=== PATIENT | female | born 1960 | race Caucasian/White ===

== ENCOUNTER 2016-09-25 05:38 | Outpatient (CLI) | payer OTHER, MEDICARE ==
[~2016-09-25] VITALS: Ht 167.6 cm; Wt 93.4 kg
[~2016-09-25 05:38] MED LIST: ALLERGY INJECTION SQ; ALPR0.2550 PO; AMIT25TA9 PO; AMLO10TA4 PO; ASP81TEC PO; BIOT25006 PO; CETI10CA PO; CHOL10008 PO; CHOL4PAC2 PO; CYAN100053 IJ; CYCL10TA9 PO; DCS100C PO; DESV100T PO; DESV50TA PO; DIAZ-345 PO; DIPH1TAB25 PO; Docusate Sodium PO; ESTR10TA VG; ESTROGEN SHOT IM; EZET10TA23 PO; FENO130C5 PO; FENO145T2 PO; FENO30CA PO; FLC100T1 PO; FLC1T PO; HCT25T PO; HYDR12.56 PO; HYDR1TAB PO; HYOS0.378 PO; Hydromorphone Hcl PO; IBP600T1 PO; METO50TA7 PO; NAPR-243 PO; NF-LOVAZAC PO; NFAMINITAB PO; ONDA8TAB6 PO; OXYB30GE TD; PANT40TA PO; POTASSIUM CL PO; RIZA10TA23 PO; ROSU5TAB PO; SUCR1TAB23 PO; TOPI200T25 PO; TOPI50TA2 PO; TPR100T PO; TPR25T PO; TRIM100T7 PO; [UNRECOGNIZED DRUG - CODE] PO
--- OUTSIDE RECORDS SUMMARY | 2016-09-25 05:41 | XMS REPORT | Continuity of Care Document ---
Author Author [facility] Organization [facility] Address Unknown Phone Unavailable Care Team Providers Care Defence [employer] Member Other Ranks Name Role Phone PCP Unavailable Source Comments Some departments are not documenting in the electronic medical record. If you do not see the information that you expected, contact Release of Information in the Health Information Management department at [phone] for further assistance in locating additional records.[facility] Active Allergies and Adverse Reactions Allergen Noted Date Severity Reactions Comments Cymbalta 09/17/2012 ANAPHYLAXIS Gluten 09/17/2012 UNKNOWN Levaquin In D5w 09/17/2012 ANAPHYLAXIS Macrobid 09/17/2012 ANAPHYLAXIS Metanx 09/17/2012 NAUSEA AND VOMITING Neurontin 09/17/2012 AGITATION Nuts 09/17/2012 ANAPHYLAXIS Percocet 09/17/2012 ITCHING Prednisone 09/17/2012 AGITATION, EDEMA Savella 09/17/2012 HEADACHE Ultram 09/17/2012 HIVES, ITCHING Current Medications Prescription Sig. Disp. Refills Start End Date Status Date ERGOCALCIFEROL (VITAMIN Take 2,000 Units by mouth Active D2) (VITAMIN D PO) daily. TOPIRAMATE (TOPAMAX PO) Take 75 mg by mouth twice Active daily. metoprolol XL (TOPROL XL) Take 50 mg by mouth Active 50 mg tablet daily. aspirin 81 mg chewable Take 81 mg by mouth Active tablet daily. hydrochlorothiazide Take 12.5 mg by mouth Active (HYDRODIURIL) 12.5 mg Tab daily. tablet folic acid (FOLVITE) 1 mg Take 1 mg by mouth daily. Active tablet [place]-3 Acid Ethyl Esters Take 1 g by mouth twice Active (LOVAZA) 1 gram cap daily with meals. CYCLOBENZAPRINE HCL Take 10 mg by mouth. Active (FLEXERIL PO) fenofibrate Take 145 mg by mouth Active nanocrystallized (TRICOR) daily. [address] Take 40 mg by mouth Active (PROTONIX) 40 mg tablet daily. desvenlafaxine(+) Take 50 mg by mouth Active (PRISTIQ) 50 mg tablet daily. potassium chloride SR Take 20 mEq by mouth Active (K-DUR) 20 mEq tablet daily. amitriptyline (ELAVIL) 25 Take 25 mg by mouth at Active mg tablet bedtime daily. cetirizine (ZYRTEC) 10 mg Take 10 mg by mouth as Active tablet Needed. cholestyramine/aspartame Take 1 Packet by mouth as Active 4 gram packet Needed. DIPHENOXYLATE Take by mouth as Needed. Active HCL/ATROPINE (LOMOTIL PO) HYOSCYAMINE SULFATE Take by mouth. Active (HYOMAX PO) diazepam (VALIUM) 5 mg Take 5 mg by mouth every Active tablet 6 hours as needed. rizatriptan (MAXALT) 10 Take 10 mg by mouth once Active mg tablet as needed. May repeat in 2 hours in needed naproxen (NAPROSYN) 500 Take 500 mg by mouth Active mg tablet twice daily with meals. HYDROCODONE BIT/HOMATROP Take by mouth as Needed. Active ME-BR (HYDROCODONE COMPOUND PO) Active Problems Problem Noted Date Neck pain 09/17/2012 Fibromyalgia 09/17/2012 Social History Tobacco Use Types Packs/Day Years Used Date Former Smoker Cigarettes Quit: 09/17/1975 Smokeless Tobacco: Never Used Alcohol Use Drinks/Week oz/Week Comments No Last Filed Vital Signs Vital Sign Reading Time Taken Blood Pressure 127/85 09/17/2012 11:32 AM CORE INSPECTOR Pulse 76 09/17/2012 11:32 AM CORE INSPECTOR Temperature - - Respiratory Rate - - Height 1.676 m (5' 6") 09/17/2012 11:32 AM CORE INSPECTOR Weight 95.528 kg (210 lb 9.6 oz) 09/17/2012 11:32 AM CORE INSPECTOR Body Mass Index 34.01 09/17/2012 11:32 AM CORE INSPECTOR Oxygen Saturation - - Plan of Care Health Maintenance Due Date Last Done Comments Physical (Comprehensive) 01/29/1967 Exam Pertussis Vaccine 01/29/1971 Tetanus Vaccine 01/29/1977 Cervical Cancer Screening 01/29/1981 Breast Cancer Screening 2000 Colorectal Cancer 01/29/2010 Screening Influenza Vaccine 05/10/2016 Results from Last 3 Months Not on file
[2016-09-25] MEDS ORDERED: ALIR150P SQ (13:51)
[2016-09-25] MEDS ORDERED: FENO130C5 PO (14:16)
[2016-09-25] MEDS ORDERED: CHOL200014 PO (14:16)
[2016-09-25] MEDS ORDERED: DESV50TA PO (14:16)
[2016-09-25] MEDS ORDERED: OMEG-8 PO (14:16)
[2016-09-25] MEDS ORDERED: METO50TA2 PO (14:16)
== END 2016-09-25 14:19 ==
LOC: PREOP 05:38
PROVIDERS: ATTEND Surgery
DX: Z01.818 Encounter for other preprocedural examination (principal); D17.9 Benign lipomatous neoplasm, unspecified

== ENCOUNTER 2016-09-28 10:01 | Day surgery (SDC) | payer OTHER, MEDICARE ==
[~2016-09-28] VITALS: Ht 167.6 cm; Wt 93.4 kg
[~2016-09-28 10:01] MED LIST changes: +ALIR150P SQ; +CHOL200014 PO; +METO50TA2 PO; +OMEG-8 PO
--- OUTSIDE RECORDS SUMMARY | 2016-09-28 10:04 | XMS REPORT | Continuity of Care Document ---
Author Author [facility] Organization [facility] Address Unknown Phone Unavailable Care Team Providers Care Fly Worker Name Role Phone PCP Unavailable Source Comments Some departments are not documenting in the electronic medical record. If you do not see the information that you expected, contact Release of Information in the Health Information Management department at [phone] for further assistance in locating additional records.[facility] Active Allergies and Adverse Reactions Allergen [...] 1 mg by mouth daily. Active tablet [place]-3 Acid Ethyl Esters Take 1 g by [...] Taken Blood Pressure 127/85 09/17/2012 11:32 AM LINE PULLER Pulse 76 09/17/2012 11:32 AM LINE PULLER Temperature - - Respiratory Rate - - Height 1.676 m (5' 6") 09/17/2012 11:32 AM LINE PULLER Weight 95.528 kg (210 lb 9.6 oz) 09/17/2012 11:32 AM LINE PULLER Body Mass Index 34.01 09/17/2012 11:32 AM LINE PULLER Oxygen Saturation - - Plan of Care Health Maintenance Due Date Last Done Comments Physical (Comprehensive) 01/29/1967 Exam Pertussis Vaccine 01/29/1971 Tetanus Vaccine 01/29/1977 Cervical Cancer Screening 01/29/1981 Breast Cancer Screening 2000 Colorectal Cancer 01/29/2010 Screening Influenza Vaccine 05/10/2016 Results from Last 3 Months Not on file
--- OUTSIDE RECORDS SUMMARY | 2016-09-28 10:04 | XMS REPORT | Continuity of Care Document ---
Author Author [facility] Organization [facility] Address Unknown Phone Unavailable Care Team Providers Care Configuration Manager Name Role Phone PCP Unavailable Source Comments Some departments are not documenting in the electronic medical record. If you do not see the information that you expected, contact Release of Information in the Health Information Management department at [phone] for further assistance in locating additional records.[facility] Active Allergies and Adverse Reactions Allergen Noted [...] 1 mg by mouth daily. Active tablet [place]-3 Acid Ethyl Esters Take 1 g by [...] Taken Blood Pressure 127/85 09/17/2012 11:32 AM BIOINFORMATICS TEAM MEMBER Pulse 76 09/17/2012 11:32 AM BIOINFORMATICS TEAM MEMBER Temperature - - Respiratory Rate - - Height 1.676 m (5' 6") 09/17/2012 11:32 AM BIOINFORMATICS TEAM MEMBER Weight 95.528 kg (210 lb 9.6 oz) 09/17/2012 11:32 AM BIOINFORMATICS TEAM MEMBER Body Mass Index 34.01 09/17/2012 11:32 AM BIOINFORMATICS TEAM MEMBER Oxygen Saturation - - Plan of Care Health Maintenance Due Date Last Done Comments Physical (Comprehensive) 01/29/1967 Exam Pertussis Vaccine 01/29/1971 Tetanus Vaccine 01/29/1977 Cervical Cancer Screening 01/29/1981 Breast Cancer Screening 2000 Colorectal Cancer 01/29/2010 Screening Influenza Vaccine 05/10/2016 Results from Last 3 Months Not on file
[2016-09-28] MEDS ORDERED: LACTATED RINGERS 1,000 ML IV PRN (10:23)
[2016-09-28] MEDS ORDERED: LIDOCAINE JELLY 2% (XYLOCAINE) 5 ML TUBE ONE (10:30)
[2016-09-28] MEDS ORDERED: proPOfol 200 MG/20 ML (DIPRIVAN) VIAL IV ONE (10:30)
[2016-09-28] MEDS ORDERED: FAMOTIDINE 20MG/2ML IV (PEPCID) IV ONE (10:30)
[2016-09-28] MEDS ORDERED: LIDOCAINE PF 2% 10 ML (XYLOCAINE) AMP ONE (10:30)
[2016-09-28] MEDS ORDERED: fentaNYL INJECTION 100 MCG/2 ML AMP ONE (10:30)
[2016-09-28] MEDS ORDERED: ONDANSETRON 4 MG/2 ML (SDV) Z0FRAN IV ONE (10:30)
[2016-09-28] MEDS ORDERED: SCOPOLAMINE 1.5 MG (TRANSDERM-SCOP) PATCH TOP ONE (10:30)
[2016-09-28] MEDS ORDERED: MIDAZOLAM 2 MG/2 ML (VERSED) VIAL IV ONE (10:30)
[2016-09-28] MEDS ORDERED: ROCURONIUM 50 MG/5 ML (ZEMURON) VIAL IV ONE (10:30)
[2016-09-28] MEDS ORDERED: ceFAZolin 2 GM IV (SDC ONLY) 50 ML ONE (10:34)
[2016-09-28 10:35] VITALS: BP 131/63
[2016-09-28] MEDS ORDERED: BUP/EPI 0.25% 1:200,000 (MARCAINE) 30 ML VIAL ONE (10:36)
--- NOTE | 2016-09-28 10:59 | Progress Note-Pre Operative ---
Pre-Operative Progress Note H&P Reviewed The H&P was reviewed, patient examined and no changes noted. Date H&P Reviewed: Sep 28, 2016 Time H&P Reviewed: 10:59 Pre-Operative Diagnosis: multiple lipomata JESSY WHITAKER MD Sep 28, 2016 10:59 am
[2016-09-28] MEDS ORDERED: ceFAZolin 2 GM IV (SDC ONLY) 50 ML IV ONE (11:30)
[2016-09-28] MEDS ORDERED: CATHETER FLUSH 10 ML SYR IV PRN (11:30)
[2016-09-28] MEDS ORDERED: SEVOFLURANE (ULTANE) 15 ML INHAL SOLN ONE (12:04)
--- NOTE | 2016-09-28 12:31 | Progress Note-Post Operative ---
Post-Operative Progess Note Pre-Operative Diagnosis multiple lipomata Post-Operative Diagnosis same Post-Op Procedure Note Date of Procedure: Sep 28, 2016 Name of Procedure: excision Anesthesia Type Gen. Specimen(s) collected lipoma JESSY WHITAKER MD Sep 28, 2016 12:31 pm
[2016-09-28] MEDS ORDERED: HYDR-3812 PO (12:32)
--- NOTE | 2016-09-28 12:35 | Discharge Inst-Simple/Standard ---
Discharge Inst-Standard Discharge Medications New, Converted or Re-Newed RX: RX on Chart Patient Instructions/Follow Up Plan of Care/Instructions/FU: dressings off in 48 hours. Follow-up when necessary Activity as Tolerated: Yes Discharge Diet: No Restrictions JESSY WHITAKER MD Sep 28, 2016 12:35 pm
[2016-09-28] MEDS: morphine INJ 10 MG/ML 1ML (SYR OR VIAL) IVP PRN ×2 (12:43→12:53)
[2016-09-28] MEDS ORDERED: ONDANSETRON 4 MG/2 ML (SDV) Z0FRAN IVP PRN (12:45)
[2016-09-28] MEDS ORDERED: MEPERIDINE (DEMEROL) INJ 50 MG/ML IVP PRN (12:45)
--- NOTE | 2016-09-28 12:46 | Anesthesia-General Post-Op ---
General Patient Condition Mental Status/LOC: Same as Preop Cardiovascular: Satisfactory Nausea/Vomiting: Absent Respiratory: Satisfactory Pain: Controlled Complications: Absent Post Op Complications Complications None Follow Up Care/Instructions Patient Instructions None needed. Anesthesia/Patient Condition Patient Condition Patient is doing well, no complaints, stable vital signs, no apparent adverse anesthesia problems. No complications reported per nursing. D/C home per [facility] [place] Criteria: RACHELL Henry DO Sep 28, 2016 12:46
[2016-09-28 13:25] VITALS: BP 97/49
--- NOTE | 2016-09-28 13:38 | OPERATIVE REPORT ---
PROCEDURE PHYSICIAN: JESSY WHITAKER DATE OF PROCEDURE: 09/28/2016 PREOPERATIVE DIAGNOSIS: 1. 1 cm lipoma x 3 right lateral chest wall. 2. 2 cm lipoma right upper medial thigh. POSTOPERATIVE DIAGNOSIS: 1. 1 cm lipoma x 3 right lateral chest wall. 2. 2 cm lipoma right upper medial thigh. OPERATION: Excision of all 4. SURGEON: Lamonte. ANESTHESIA: General anesthesia. BLOOD LOSS: Minimal. FLUIDS: 600 mL of crystalloids. TYPE OF WOUND: Type I (clean wound). INDICATION FOR THE PROCEDURE: This lady has multiple painful lipomata. During the preoperative period, we identified a total of 3 of these over the right lateral chest wall and a 2 cm lipoma over the upper medial thigh on the right side. We offered to excise these under general anesthetic. Informed consent was obtained after reviewing the operative details and complications of hematoma, wound infection and recurrence. DESCRIPTION OF PROCEDURE: She was placed supine on the operative table and general anesthesia induced using a laryngeal mask airway. 2 grams of Ancef were administered intravenously as prophylaxis against wound infection. Sequential compression devices were placed around her legs, to minimize the risk of venous thrombosis. Right chest wall and the right thigh were prepared and draped in the usual sterile manner. By making a 2 cm incision over each of these, the lipomata were excised. Hemostasis was achieved using cautery and each of the four incisions was closed using 4-0 Vicryl, in a subcuticular fashion. She tolerated the procedure well, was extubated in the operating room and taken to the recovery room in a stable condition. [place], sponges, and instruments were correct at the end of the operation. Job ID: [id number] Dictated Date: 09/28/2016 12:18:11 [employer] Recruiter Date: 09/28/2016 13:33:42 / arthur ANDERSON
[2016-09-28] MEDS ORDERED: HYDROcodone/APAP 5 MG/325 MG (LORTAB) TAB PO ONE (13:45)
[2016-09-28 13:55] VITALS: BP 93/60
[2016-09-28 14:25] VITALS: BP 113/55
[2016-09-28 14:50] VITALS: BP 113/55
== END 2016-09-28 14:53 | disposition home or self-care (01) ==
LOC: SDC 10:01
PROVIDERS: ATTEND Surgery
DX: D17.23 Benign lipomatous neoplasm of skin and subcutaneous tissue of right leg (principal); D17.1 Benign lipomatous neoplasm of skin and subcutaneous tissue of trunk; Z79.899 Other long term (current) drug therapy
CPT/HCPCS: 82962; 87081

== ENCOUNTER → 2016-11-30 | Outpatient (CLI) | payer OTHER, MEDICARE ==
[~2016-11-30] MED LIST changes: +HYDR-3812 PO
--- NOTE | 2016-11-30 13:54 | Diagnostic Imaging Report ---
PROCEDURE: MRI right joint lower extremity without contrast. TECHNIQUE: Multiplanar, multisequence non contrast-enhanced MRI of the right lower extremity was accomplished. INDICATION: Right knee pain. FINDINGS: There is a small suprapatellar effusion. There is fluid signal anterior to the patellar tendon suggestive of mild superficial infrapatellar bursitis. The location of popliteal cyst demonstrates very minimal amount of fluid with no sizable cyst seen. The extensor mechanism is intact. The ACL and the PCL are both intact. The medial meniscus demonstrates a complex tear involving the posterior root new from 09/08/2013 exam. At that prior exam, this posterior root appeared intact. The tear extends into the posterior horn of the medial meniscus. There is abnormal signal within the substance of the body of the medial meniscus; however, this is not definitely extending to the meniscus surface. There is partial extrusion of the body of the meniscus. No tear is seen in the lateral meniscus. The lateral collateral ligament complex and the MCL appear intact. The muscle bulk and signal around the knee appear unremarkable. There is cartilage thinning of moderate degree seen in the medial facet of the patella and mild cartilage thinning with fissuring noted in the lateral facet of the patella. The lateral compartment cartilage is relatively spared. The medial compartment cartilage demonstrates approximately 50% thinning and fissuring. IMPRESSION: 1. Complex tear in the posterior root of the medial meniscus extending to the posterior horn. 2. Suggestion of mild superficial infrapatellar bursitis. 3. Mild osteoarthritis changes in the medial and patellofemoral compartments. Dictated by: Dictated on workstation # [id number]
== END ==
LOC: RAD 11:05
PROVIDERS: ATTEND Orthopaedic Surgery
DX: M71.21 Synovial cyst of popliteal space [Baker], right knee (principal)
CPT/HCPCS: 73721

== ENCOUNTER → 2017-02-27 | Outpatient (CLI) | payer OTHER, MEDICARE ==
--- NOTE | 2017-02-27 11:56 | Diagnostic Imaging Report ---
PROCEDURE: US Thyroid. TECHNIQUE: Multiple real-time grayscale images were obtained of the thyroid in various projections. INDICATION: Thyromegaly. FINDINGS: The right thyroid lobe is 4 x 1.9 x 1.7 CM. The left lobe is 4.1 x 0.9 x 1.7 CM. There is a 4 x 7.4 mm hyperechoic circumscribed nodule in the lower aspect of the left thyroid lobe with no internal vascularity demonstrated. No other nodule is seen. IMPRESSION: Likely benign hyperechoic 7 mm inferior left thyroid lobe nodule. A followup study in 6 months is suggested to reevaluate. Dictated by: Dictated on workstation # [id number]
== END ==
LOC: RAD 11:13
PROVIDERS: ATTEND Family Medicine
DX: E01.0 Iodine-deficiency related diffuse (endemic) goiter (principal)
CPT/HCPCS: 76536

== ENCOUNTER 2017-06-04 11:43 | Outpatient (CLI) | payer OTHER, MEDICARE | END 2017-06-04 12:05 | disposition home or self-care (01) | LOC: SLEEP 11:43 | PROVIDERS: ATTEND Family Medicine | DX: G47.10 Hypersomnia, unspecified (principal); G47.50 Parasomnia, unspecified; R06.83 Snoring; I10 Essential (primary) hypertension ==

== ENCOUNTER → 2017-06-07 | Outpatient (CLI) | payer OTHER, MEDICARE ==
--- NOTE | 2017-06-11 10:57 | Diagnostic Imaging Report ---
EXAMINATION: Bilateral screening mammogram 2D views with tomosynthesis. The current study was also evaluated with a Computer Aided Detection (CAD) system. INDICATION: Screening. PERSONAL HISTORY: No current complaints stated on the questionnaire. COMPARISON: 01/16/2016. FINDINGS: The breasts are composed of scattered fibroglandular densities. There is no mass, architectural distortion, or suspicious cluster of calcifications. Allowing for technique and positional differences, no suspicious change is seen. IMPRESSION: No significant change. ACR BI-RADS Category 2: Benign findings. Result letter will be mailed to the patient. Note: At least 10% of breast cancer is not imaged by mammography. Dictated by: Dictated on workstation # [id number]
== END ==
LOC: RAD 14:13
PROVIDERS: ATTEND Obstetrics & Gynecology
DX: Z12.31 Encounter for screening mammogram for malignant neoplasm of breast (principal)
CPT/HCPCS: 77067

== ENCOUNTER → 2017-08-28 | Outpatient (CLI) | payer OTHER, MEDICARE ==
[~2017-08-28] MED LIST changes: +METO50TA15 PO; -METO50TA2 PO
--- NOTE | 2017-08-28 17:52 | Diagnostic Imaging Report ---
PROCEDURE: US thyroid. TECHNIQUE: Multiple real-time grayscale images were obtained of the thyroid in various projections. INDICATION: Followup thyroid nodule. COMPARISON: 03/07/17. FINDINGS: The right thyroid lobe is 4.1 x 1.0 x 1.3 cm. The left lobe is 4.3 x 1.0 x 1.5 cm. There is a 0.5 x 0.4 cm hypoechoic nodule in the inferior aspect of the right lobe and 0.5 x 0.7 x 0.5 cm similar hyperechoic circumscribed nodule in the inferior aspect of the left lobe of the thyroid. When compared to 02/27/2017, the right thyroid nodule was not well demonstrated previously and the left thyroid nodule appears minimally more prominent. IMPRESSION: Subcentimeter hyperechoic circumscribed thyroid nodules up to 0.7 cm in the inferior aspect of the left lobe, are favored to be benign in etiology. Dictated by: Dictated on workstation # [id number]
== END ==
LOC: RAD 15:17
PROVIDERS: ATTEND Nurse Practitioner Family
DX: E04.2 Nontoxic multinodular goiter (principal)
CPT/HCPCS: 76536

== ENCOUNTER → 2018-02-18 | Outpatient (CLI) | payer OTHER, MEDICARE ==
[~2018-02-18] MED LIST changes: +ACHD5005 PO; -HYDR-3812 PO
--- NOTE | 2018-02-18 13:28 | Diagnostic Imaging Report ---
INDICATION: Multinodular goiter. TECHNIQUE: Grayscale sonographic images of the thyroid gland. CORRELATION STUDY: 08/28/2017. FINDINGS: RIGHT LOBE: 4.1 x 1.4 x 1.3 cm. In the inferior pole, there is a small rounded hyperechoic nodule 5 x 4 x 5 mm. Unchanged. LEFT LOBE: 4.2 x 1.0 x 1.5 cm. In the inferior pole, there is a small rounded hyperechoic nodule, 6 x 5 x 6 mm, generally stable as well. Isthmus appears unremarkable. IMPRESSION: Small subcentimeter hyperechoic solitary nodules in the inferior aspect of both lobes appearing generally stable. (Normal gland size: 4-5 x 2 x 2 cm) Dictated by: Dictated on workstation # [id number]
== END ==
LOC: RAD 08:42
PROVIDERS: ATTEND Nurse Practitioner Family
DX: E04.2 Nontoxic multinodular goiter (principal)
CPT/HCPCS: 76536

== ENCOUNTER → 2018-06-19 | Outpatient (CLI) | payer OTHER, MEDICARE ==
[~2018-06-19] MED LIST changes: -CHOL200014 PO; +CHOL200085 PO
--- NOTE | 2018-06-19 18:13 | Diagnostic Imaging Report ---
EXAMINATION: Digital mammogram bilateral screening with 3D tomosynthesis. INDICATION: Screening. COMPARISON: This study was compared to the prior exams of 06/07/2017, 01/16/2016, and 09/06/2014. At this time, there are no current complaints. The current study was also evaluated with a Computer Aided Detection (CAD) system. FINDINGS: There are scattered fibroglandular densities in both breasts which could obscure a lesion. On the MLO view of the left breast in the superior aspect of the breast, roughly 13 cm from the nipple, there is a small 3-4 mm neodensity. This finding cannot be identified with certainty on the craniocaudad view. I would recommend that a compression view of this area be obtained in the MLO projection as well as an XCC view for further study. Ultrasound should also be performed. The overall appearance of the breasts has not changed significantly otherwise. There is no primary or secondary sign of malignancy noted. IMPRESSION: Additional mammographic views and ultrasound of the left breast would be recommended for further study. ACR BI-RADS Category 0: Incomplete. (Needs additional imaging evaluation). Result letter will be mailed to the patient. Note: At least 10% of breast cancer is not imaged by mammography. Dictated by: Dictated on workstation # [id number]
== END ==
LOC: RAD 13:39
PROVIDERS: ATTEND Obstetrics & Gynecology
DX: Z12.31 Encounter for screening mammogram for malignant neoplasm of breast (principal)
CPT/HCPCS: 77067

== ENCOUNTER 2018-06-21 17:29 | Emergency (ER) | payer OTHER, MEDICARE ==
[~2018-06-21] VITALS: Ht 167.6 cm; Wt 88.5 kg
[2018-06-21] MEDS ORDERED: ACETAMINOPHEN 325 MG TABLET PO STA (19:59)
--- NOTE | 2018-06-21 20:26 | ED Upper Extremity ---
General Chief Complaint: Laceration Stated Complaint: CUT FINGER Nursing Triage Note: pt presents to ed with lac to r thumb after slicing something for dinner. Nursing Sepsis Screen: No Definite Risk History of Present Illness Date Seen by Provider: Jun 21, 2018 Time Seen by Provider: 19:20 Initial Comments 58-year-old female was slicing katt when she sustained an abrasion to the tip of her right thumb. She denies any other injuries. The wound has been cleaned with sterile saline and Hibiclens. Last tetanus immunization was 3 years ago. Onset: just prior to arrival Pain/Injury Location: right thumb Method of Injury: incised Allergies and Home Medications Allergies Coded Allergies: levofloxacin (Verified Allergy, Severe, HIVES, SHORTNESS OF BREATH, HAND SWELLS, 02/26/14) nitrofurantoin (Verified Allergy, Severe, HIVES, SHORTNESS OF BREATH, ITCHING, 06/21/18) duloxetine (Verified Allergy, Intermediate, TROUBLE BREATHING, HEART RACED , PANIC ATTACH, 06/21/18) acetaminophen (Verified Allergy, Mild, ITCHING, INSOMNIA, 06/21/18) gluten (Unverified Allergy, Mild, 06/21/18) levomefolate calcium (Verified Allergy, Mild, NAUSEA, WEIGHT GAIN, ) mecobalamin (Verified Allergy, Mild, NAUSEA, WEIGHT GAIN, 06/21/18) oxycodone (Verified Allergy, Mild, ITCHING, INSOMNIA, 06/21/18) prednisone (Verified Allergy, Mild, 06/21/18) ITCING pyridoxal phosphate (Verified Allergy, Mild, NAUSEA, WEIGHT GAIN, 06/21/18 ) tramadol (Verified Allergy, Mild, HIVES, ITCHING, 06/21/18) gabapentin (Verified Adverse Reaction, Intermediate, SICK FEELING, HEART RACED, 06/21/18) milnacipran (Verified Adverse Reaction, Intermediate, NAUSEA, MIGRAINES, 06/21/18) Uncoded Allergies: NUTS (Allergy, Mild, 02/26/14) dissolvable stitches (Allergy, Unknown, 09/25/16) Home Medications Alirocumab 150 Mg/1 Ml Pen.injctr, 150 MG SQ every 2 weeks, (Reported) Amlodipine Besylate 10 Mg Tablet, 10 MG PO DAILY, (Reported) Aspirin 81 Mg Tabec, 81 MG PO DAILY, (Reported) Biotin 2,500 Mcg Capsule, 2,500 MCG PO DAILY, (Reported) Cetirizine Hcl 10 Mg Capsule, 10 MG PO DAILY, (Reported) Cholecalciferol (Vitamin D3) 2,000 Unit Tablet, 2,000 UNIT PO DAILY, (Reported) Cholestyramine/Sucrose 4 G/Pkt Packet, 4 GM PO BID PRN for DIARRHEA, (Reported) NEEDED FOR DIARRHEA Cyanocobalamin 1,000 Mcg/Ml Vial, 1,000 MCG IJ WEEK, (Reported) Cyclobenzaprine Hcl 10 Mg Tablet, 10 MG PO TID PRN for MUSCLE SPASMS, (Reported) Desvenlafaxine Succinate 50 Mg Tab.er.24h, 50 MG PO BID, (Reported) Diazepam 5 Mg Tablet, 5 MG PO BID PRN for ANXIETY, (Reported) NEEDED FOR ANXIETY Diphenoxylate/Atropine 1 Tab Tablet, 1 EACH PO TID PRN for DIARRHEA, (Reported) NEEDED FOR DIARRHEA 2.5/.025MG Estradiol 10 Mcg Tablet, 10 MCG VG DAILY, (Reported) Ezetimibe 10 Mg Tablet, 10 MG PO HS, (Reported) Fenofibrate,Micronized Unknown Strength Capsule, 160 MG PO DAILY, (Reported) Folic Acid 1 Mg Tab, 1 MG PO DAILY, (Reported) Hydrochlorothiazide 12.5 Mg Tablet, 12.5 MG PO DAILY, (Reported) Hydrocodone Bit/Acetaminophen 1 Each Tablet, 1-2 EACH PO Q4HR PRN, (Reported) TAKE 1 OR 2 TABLETS EVERY 4-6 HOURS NEEDED FOR PAIN Hydrocodone Bit/Acetaminophen 1 Each Tablet, 1-2 TAB PO 4-6HR PRN for PAIN Prescribed by: JESSY WHITAKER on 09/28/16 1232 Hyoscyamine Sulfate 0.375 Mg Tab.sr.12h, 0.375 MG PO TID PRN for CRAMPS, ( Reported) PRN CRAMPS Metoprolol Tartrate 50 Mg Tablet, 50 MG PO BID, (Reported) Naproxen 500 Mg Tablet, 500-1,000 MG PO BID PRN for PAIN, (Reported) TAKE 1 OR 2 (500MG) TABS NEEDED FOR PAIN [place]-3/Dha/Epa/Fish Oil 1 Each Capsule, 3 EACH PO BID, (Reported) Ondansetron Hcl 8 Mg Tablet, 8 MG PO Q8H PRN for NAUSEA/VOMITING, (Reported) NEEDED FOR NAUSEA/VOMITING Pantoprazole Sodium 40 Mg Tablet.dr, 40 MG PO DAILY, (Reported) Rizatriptan Benzoate 10 Mg Tablet, 10 MG PO DAILY PRN for MIGRAINE, (Reported) 1 TAB AT ONSET OF HEADACHE; repeat after 2 hours if significant relief is not attained; maximum: 30 mg in a 24-hour period Topiramate 200 Mg Tablet, 200 MG PO BID, (Reported) [Potassium Cl Elixir] , 2 TBS PO DAILY, (Reported) TAKES 2 TABLESPOON 10% 20MEQ/15ML Patient Home Medication List Home Medication List Reviewed: Yes Review of Systems Constitutional: no symptoms reported, see HPI Skin: lesions (abrasion, tip right thumb) Past [id number]-[id number]-[id number] Hx Past Med/Social Hx: Reviewed Nursing Past Med/Soc Hx Patient Social History Alcohol Use: Denies Use Recreational Drug Use: No Smoking Status: Never a Smoker Recent Foreign Travel: No Contact w/Someone Who Travel: No Recent Infectious Disease Expo: No Recent Hopitalizations: No Physical Abuse: No Sexual Abuse: No Mistreated: No Fear: No Immunizations Up To Date Date of Pneumonia Vaccine: Feb 27, 2012 Date of Influenza Vaccine: Jun 08, 2016 Seasonal Allergies Seasonal Allergies: Yes Past Medical History Surgeries: Yes (A&P rep, bladder x2, R RCR x2, R knee scope x2,L CTR x5, lap khadra, foot ) Abdominal, Bladder Surgery, Gallbladder, Hysterectomy, Orthopedic, Rectal Respiratory: Yes (HX ASTHMA) Asthma, Chronic Bronchitis Cardiac: Yes (RAYNAUD'S ) High Cholesterol, Hypertension Neurological: Yes (SEVERE MIGRAINE HEADACHES; NEUROPATHY IN FEET; REFLEX SYMPATHETIC DYSTROPHY) Headaches /Migraines, Neuropathy Reproductive Disorders: No Gastrointestinal: Yes (NAUSEA) Musculoskeletal: Yes (herniated disk) Degenerate Disk Disease, Arthritis, Fibromyalgia, Chronic Back Pain Endocrine: Yes (diet controlled at this time) Diabetes, Non-Insulin dep Cancer: No Psychosocial: Yes (CLAUSTROPHOBIA, PANIC ATTACKS) Integumentary: No (lipomas) Blood Disorders: No Physical Exam Vital Signs Vital Signs - First Documented 06/21/18 18:59 Temp 98.2 Pulse 77 Resp 16 B/P (MAP) 144/106 (119) Pulse Ox 95 Capillary Refill : Less Than 3 Seconds Height, Weight, BMI Height: 5'6.00" Weight: 195lbs. 0.0oz. 88.744079mc; 33.3 BMI Method:Stated General Appearance: WD/WN, no apparent distress Cardiovascular: normal peripheral pulses, regular rate, rhythm Respiratory: chest non-tender, lungs clear Hand: Right (right thumb with superficial abrasion to the tip, no active bleeding.) Neurologic/Tendon: normal sensation, normal motor functions, normal tendon functions Neurologic/Psychiatric: no motor/sensory deficits, alert, normal mood/affect, oriented x 3 Skin: normal color, warm/dry Progress/Results/Core Measures Results/Orders My Orders Orders - CAROLE DORSEY Acetaminophen Tablet/Caplet (Tylenol T (06/21/18 19:59) Vital Signs/I&O 06/21/18 06/21/18 18:59 20:34 Temp 98.2 Pulse 77 58 Resp 16 16 B/P (MAP) 144/106 (119) 149/92 (111) Pulse Ox 95 98 Blood Pressure Mean: 119 Progress Progress Note : Time: 19:20 Progress Note Patient seen and evaluated, triple antibiotic ointment and Band-Aid applied to right thumb, discharge instructions and return precautions reviewed. Departure Impression Primary Impression: Abrasion of right thumb Qualified Codes: S60.311A - Abrasion of right thumb, initial encounter Disposition: 01 HOME, SELF-CARE Condition: Stable Departure-Patient Inst. Decision time for Depature: 20:15 Referrals: REINALDO SAVAGE MD (PCP/Family) Primary Care Physician Patient Instructions: Skin Abrasions (DC) Add. Discharge Instructions: Cleanse wound to right thumb with peroxide and apply triple anabiotic ointment 3 times daily, cover with Band-Aid. Follow-up with your primary care if symptoms are not improving or worsen Return to emergency department for new, urgent health care problems. All discharge instructions reviewed with patient and/or family. Voiced understanding. Copy Copies To 1: REINALDO SAVAGE MD, AMY ARNP Jun 21, 2018 20:26
[2018-06-21 20:34] VITALS: BP 149/92
== END 2018-06-21 20:34 | disposition home or self-care (01) ==
LOC: EDUNIT# 17:29 → ER 17:30
DX: S60.311A Abrasion of right thumb, initial encounter (principal); J45.909 Unspecified asthma, uncomplicated; E78.00 Pure hypercholesterolemia, unspecified; I10 Essential (primary) hypertension; G43.909 Migraine, unspecified, not intractable, without status migrainosus; I73.00 Raynaud's syndrome without gangrene; E11.42 Type 2 diabetes mellitus with diabetic polyneuropathy; F41.0 Panic disorder [episodic paroxysmal anxiety]; Z90.710 Acquired absence of both cervix and uterus; Z87.01 Personal history of pneumonia (recurrent); X58.XXXA Exposure to other specified factors, initial encounter
CPT/HCPCS: 99283

== ENCOUNTER → 2018-06-23 | Outpatient (CLI) | payer OTHER, MEDICARE ==
--- NOTE | 2018-06-23 10:58 | Diagnostic Imaging Report ---
PROCEDURE: MRI lumbar spine. TECHNIQUE: Multiplanar, multisequence MRI of the lumbar spine was performed without contrast. INDICATION: Fall with low back pain which radiates into the right lower extremity. FINDINGS: Lumbar spinal curvature and alignment are within normal limits apart from slight anterolisthesis of L4 on L5. There is associated L4-5 degenerative facet arthropathy which likely accounts for this finding. Otherwise, there is no evidence of focal disc herniation or significant spinal stenosis. Neural foramina are widely patent, bilaterally. There is no evidence of marrow signal abnormality. No definite paraspinous abnormality is seen. There is an approximately 4-5 cm masslike structure seen just anterior to the inferior pole of the left kidney. In correlation with CT study of the abdomen dated 02/28/2009, this corresponds to loop of small bowel. IMPRESSION: 1. Localized L4-5 degenerative disc disease without focal disc herniation or significant stenosis identified. There is no evidence of acute marrow edema or contusion and conus medullaris is unremarkable. 2. There is probable collection of small bowel adjacent to the inferior pole of the left kidney. If further evaluation is warranted, followup CT imaging could be considered to exclude other pathology. Dictated by: Dictated on workstation # [id number]
== END ==
LOC: RAD 09:48
PROVIDERS: ATTEND Orthopaedic Surgery
DX: M51.16 Intervertebral disc disorders with radiculopathy, lumbar region (principal); W19.XXXA Unspecified fall, initial encounter
CPT/HCPCS: 72148

== ENCOUNTER → 2018-06-26 | Outpatient (CLI) | payer OTHER, MEDICARE ==
--- NOTE | 2018-06-26 19:10 | Diagnostic Imaging Report ---
INDICATION: Left breast density. Patient presents for additional views. COMPARISON: Correlation is made with screening study from 06/19/2018. TECHNIQUE: Unilateral left 2D and 3D diagnostic mammography was performed. Exaggerated CC, conventional 90 degree lateral, and spot compression MLO views were obtained. The current study was also evaluated with a computer-aided detection (CAD) system. FINDINGS: There is a tiny density in the upper and far lateral aspect of the left breast posterior depth. It is approximately 2-3 mm in size and is indeterminate. No calcifications are seen. IMPRESSION: Tiny density in the upper-outer left breast posterior depth. Further evaluation with ultrasound is recommended. ACR BI-RADS Category 0: Incomplete. (Needs additional imaging evaluation). Result letter will be mailed to the patient. Note: At least 10% of breast cancer is not imaged by mammography. Dictated by: Dictated on workstation # [id number]
--- NOTE | 2018-06-26 19:12 | Diagnostic Imaging Report ---
INDICATION: Density in the upper outer left breast posterior depth. Study is performed for further evaluation. Correlation is made with diagnostic mammogram from earlier the same day and screening mammogram from 06/19/2018. FINDINGS: Sonographic interrogation of the upper and outer aspect of the left breast at posterior depth was performed. No sonographic abnormality is seen. No solid or cystic mass is detected. IMPRESSION: No sonographic abnormality is detected. Followup left mammogram in 6 months is recommended to confirm stability of the tiny density in the upper outer aspect. ACR BI-RADS Category 3: Probably benign findings. Dictated by: Dictated on workstation # [id number]
== END ==
LOC: RAD 08:50
PROVIDERS: ATTEND Obstetrics & Gynecology
DX: R92.2 Inconclusive mammogram (principal)
CPT/HCPCS: 76642

== ENCOUNTER 2018-07-15 14:00 | Outpatient (CLI) | payer OTHER, MEDICARE ==
[~2018-07-15] VITALS: Ht 167.6 cm; Wt 88.5 kg
[2018-07-15] MEDS ORDERED: CETI10TA17 PO (14:11)
[2018-07-15] MEDS ORDERED: NAPR500T8 PO (14:11)
[2018-07-15] MEDS ORDERED: CNC1KV IM (14:11)
[2018-07-15] MEDS ORDERED: AMLO10TA6 PO (14:11)
[2018-07-15] MEDS ORDERED: HYOS0.3710 PO (14:11)
[2018-07-15] MEDS ORDERED: FOLI1TAB24 PO (14:11)
[2018-07-15] MEDS ORDERED: DESV100T16 PO (14:11)
[2018-07-15] MEDS ORDERED: RIZA10TA23 PO (14:11)
[2018-07-15] MEDS ORDERED: DIPH1TAB25 PO (14:11)
[2018-07-15] MEDS ORDERED: EZET10TA27 PO (14:11)
[2018-07-15] MEDS ORDERED: CHOL4PAC2 PO (14:11)
[2018-07-15] MEDS ORDERED: HYDR-3454 PO (14:11)
[2018-07-15] MEDS ORDERED: HYDR12.56 PO (14:11)
[2018-07-15] MEDS ORDERED: BIOT25007 PO (14:11)
[2018-07-15] MEDS ORDERED: DIAZ5TAB3 PO (14:11)
[2018-07-15] MEDS ORDERED: ONDA8TAB12 PO (14:11)
[2018-07-15] MEDS ORDERED: ESTR10TA VG (14:11)
[2018-07-15] MEDS ORDERED: TOPI100T11 PO (14:11)
== END 2018-07-15 14:13 | disposition home or self-care (01) ==
LOC: PREOP 14:00
PROVIDERS: ATTEND Surgery
DX: Z01.818 Encounter for other preprocedural examination (principal)

== ENCOUNTER 2018-07-21 08:47 | Day surgery (SDC) | payer OTHER, MEDICARE ==
[~2018-07-21] VITALS: Ht 167.6 cm; Wt 88.5 kg
[~2018-07-21 08:47] MED LIST changes: +AMLO10TA6 PO; +BIOT25007 PO; +CETI10TA17 PO; +CNC1KV IM; +DESV100T16 PO; +DIAZ5TAB3 PO; +EZET10TA27 PO; +FOLI1TAB24 PO; +HYDR-3454 PO; +HYOS0.3710 PO; +NAPR500T8 PO; +ONDA8TAB12 PO; +TOPI100T11 PO
[2018-07-21] MEDS ORDERED: NS IV 500 ML 500 ML IV PRN (08:57)
[2018-07-21] MEDS ORDERED: MIDAZOLAM 2 MG/2 ML (VERSED) VIAL IVP ONE (09:00)
[2018-07-21] MEDS ORDERED: fentaNYL INJECTION 100 MCG/2 ML AMP IVP ONE (09:00)
[2018-07-21] MEDS ORDERED: NS IV 500 ML 500 ML ONE (09:00)
[2018-07-21 09:16] VITALS: BP 123/74
--- NOTE | 2018-07-21 09:32 | History & Physicial ---
History of Present Illness History of Present Illness Reason for visit/HPI to undergo colonoscopy regarding a change in her bowel habits. MRI shows loops of bowel in relation to the inferior pole of the left kidney, of unknown significance. Date of Admission 07/21/18 Date Seen by a Provider: Jul 21, 2018 Time Seen by a Provider: 09:30 I consulted on this patient on 07/21/18 09:30 Attending Physician Jessy Aburto MD Admitting Physician Caty Ledesma MD Consult Allergies and Home Medications Allergies Coded Allergies: levofloxacin (Verified Allergy, Severe, HIVES, SHORTNESS OF BREATH, HAND SWELLS, 02/26/14) nitrofurantoin (Verified Allergy, Severe, HIVES, SHORTNESS OF BREATH, ITCHING, 06/21/18) duloxetine (Verified Allergy, Intermediate, TROUBLE BREATHING, HEART RACED , PANIC ATTACH, 06/21/18) acetaminophen (Verified Allergy, Mild, ITCHING, INSOMNIA, 06/21/18) gluten (Unverified Allergy, Mild, 06/21/18) levomefolate calcium (Verified Allergy, Mild, NAUSEA, WEIGHT GAIN, ) mecobalamin (Verified Allergy, Mild, NAUSEA, WEIGHT GAIN, 06/21/18) oxycodone (Verified Allergy, Mild, ITCHING, INSOMNIA, 06/21/18) prednisone (Verified Allergy, Mild, 06/21/18) ITCING pyridoxal phosphate (Verified Allergy, Mild, NAUSEA, WEIGHT GAIN, 06/21/18 ) tramadol (Verified Allergy, Mild, HIVES, ITCHING, 06/21/18) levothyroxine sodium (Verified Allergy, Unknown, mood swings, 07/15/18) gabapentin (Verified Adverse Reaction, Intermediate, SICK FEELING, HEART RACED, 06/21/18) milnacipran (Verified Adverse Reaction, Intermediate, NAUSEA, MIGRAINES, 06/21/18) Uncoded Allergies: NUTS (Allergy, Mild, 02/26/14) dissolvable stitches (Allergy, Unknown, 09/25/16) Home Medications Alirocumab 150 Mg/1 Ml Pen.injctr, 150 MG SQ every 2 weeks, (Reported) Amlodipine Besylate 10 Mg Tablet, 10 MG PO DAILY, (Reported) Biotin 2,500 Mcg Capsule, 2,500 MCG PO DAILY, (Reported) Cetirizine HCl 10 Mg Tablet, 10 MG PO DAILY PRN for allergies, (Reported) Cholecalciferol (Vitamin D3) 2,000 Unit Tablet, 4,000 UNIT PO DAILY, (Reported) take 2 (2,000MG) tab Cholestyramine (with Sugar) 4 Gm Powd.pack, 4 GM PO BID PRN for DIARRHEA, ( Reported) Cyanocobalamin 1,000 Mcg/Ml Inj, 1,000 MCG IM WEEK, (Reported) Desvenlafaxine Succinate 100 Mg Tab.er.24h, 100 MG PO DAILY, (Reported) Diazepam 5 Mg Tablet, 5 MG PO BID PRN for ANXIETY, (Reported) Diphenoxylate HCl/Atropine 1 Each Tablet, 1 EACH PO TID PRN for DIARRHEA, ( Reported) Estradiol 10 Mcg Tablet, 10 MCG VG DAILY, (Reported) Ezetimibe 10 Mg Tablet, 10 MG PO HS, (Reported) Folic Acid 1 Mg Tablet, 1 MG PO DAILY, (Reported) Hydrochlorothiazide 12.5 Mg Tablet, 12.5 MG PO DAILY, (Reported) Hydrocodone/Acetaminophen 1 Each Tablet, 1 EACH PO Q4-6HR PRN for PAIN-MODERATE, (Reported) Hyoscyamine Sulfate 0.375 Mg Tab.er.12h, 0.375 MG PO TID PRN for CRAMPS, ( Reported) Metoprolol Tartrate 50 Mg Tablet, 50 MG PO BID, (Reported) Naproxen 500 Mg Tablet.dr, 500 MG PO BID PRN for PAIN-MILD, (Reported) [place]-3/Dha/Epa/Fish Oil 1 Each Capsule, 3 EACH PO DAILY, (Reported) Ondansetron HCl 8 Mg Tablet, 8 MG PO Q8H PRN for NAUSEA/VOMITING, (Reported) Rizatriptan Benzoate 10 Mg Tablet, 10 MG PO DAILY PRN for MIGRAINE, (Reported) may repeat in 2 hours if needed Topiramate 100 Mg Tablet, 50-100 MG PO BID, (Reported) take 1/2 of 100mg tab in am take 1 tab in pm [Potassium Cl Elixir] , 2 TBS PO DAILY, (Reported) TAKES 2 TABLESPOON 10% 20MEQ/15ML Patient Home Medication List Home Medication List Reviewed: Yes Past Exbgvnl-Vzfwlc-Jkklvp Hx Patient Social History Marrital Status: Employed/Student: unemployed Alcohol Use: Denies Use Recreational Drug Use: No Smoking Status: Never a Smoker Recent Foreign Travel: No Contact w/other who traveled: No Recent Hopitalizations: No Recent Infectious Disease Expo: No Immunizations Up To Date Date of Pneumonia Vaccine: Feb 27, 2012 Date of Influenza Vaccine: Jun 08, 2018 Seasonal Allergies Seasonal Allergies: Yes Surgeries Yes (A&P rep, bladder x2, R RCR x2, R knee scope x2,L CTR x5, lap khadra, foot ) Abdominal, Bladder Surgery, Gallbladder, Hysterectomy, Orthopedic, Rectal Respiratory Yes (HX ASTHMA) Cardiovascular Yes (RAYNAUD'S ) High Cholesterol, Hypertension Neurological Yes (SEVERE MIGRAINE HEADACHES; NEUROPATHY IN FEET; REFLEX SYMPATHETIC DYSTROPHY ) Headaches /Migraines, Neuropathy Reproductive System Hx Reproductive Disorders: No Gastrointestinal Yes (NAUSEA) Chronic Diarrhea Musculoskeletal Yes (herniated disk) Degenerate Disk Disease, Arthritis, Fibromyalgia, Chronic Back Pain Endocrine History of Endocrine Disorders: Yes (diet controlled at this time) Endocrine Disorders: Diabetes, Non-Insulin dep Cancer No Psychosocial History of Psychiatric Problem: Yes (CLAUSTROPHOBIA, PANIC ATTACKS) Integumentary History of Skin or Integumenta: No (lipomas) Blood Transfusions History of Blood Disorders: No Review of Systems Constitutional: no symptoms reported EENTM: no symptoms reported Respiratory: no symptoms reported Cardiovascular: no symptoms reported Gastrointestinal: see HPI Genitourinary: no symptoms reported Musculoskeletal: back pain Skin: no symptoms reported Psychiatric/Neurological: No Symptoms Reported Physical Exam Vital Signs Vital Signs - First Documented 07/21/18 09:16 Temp 98.2 Pulse 76 Resp 16 B/P (MAP) 123/74 (90) Pulse Ox 93 O2 Delivery Room Air Capillary Refill : Height, Weight, BMI Height: 5'6.00" Weight: 195lbs. 0.0oz. [id number]; 31.5 BMI Method:Stated General Appearance: No Apparent Distress Neck: Normal Inspection Respiratory: Lungs Clear Cardiovascular: Regular Rate, Rhythm Gastrointestinal: Non Tender, Soft Rectal: Deferred Extremity: Normal Inspection Neurologic/Psychiatric: Alert, Oriented x3 Skin: Warm/Dry Assessment/Plan Assessment and Plan lady with a change in her bowel habits. For colonoscopy Admission Diagnosis Admission Status: Other (Outpt Proc) JESSY ABURTO MD Jul 21, 2018 09:32
[2018-07-21] MEDS ORDERED: PROPOFOL INJECTION 50 ML IV ONE (10:05)
[2018-07-21] MEDS ORDERED: MIDAZOLAM 2 MG/2 ML (VERSED) VIAL ONE (10:07)
--- NOTE | 2018-07-21 10:29 | Endo Procedure Record ---
Endo Procedure Report Date of Procedure Last Colonoscopy: Yes (2010) Jul 21, 2018 Surgeon (s) JESSY WHITAKER MD Post Procedure/Op Diagnosis very few sigmoid diverticulae Procedure Performed colonoscopy to cecum Description of Procedure Anesthesia Type: Conscious Sedation Specimen(s) collected/removed None Description of the Procedure Indication for the procedure: This lady came in for colonoscopy to evaluate a change in her bowel habits, with a tendency to diarrhea. Informed consent was obtained after reviewing the procedure in detail. Description of procedure: She was placed in left lateral decubitus position and her vital signs were monitored. Conscious sedation was achieved using propofol infusion by our MATERIALS TECHNICIAN. Digital rectal examination was unremarkable. The colonoscope was introduced into the rectum and advanced all the way up to the cecum. It was then withdrawn slowly and the mucosa examined in a systematic fashion. Findings: Very few sigmoid diverticulae. She tolerated the procedure well and was taken back to the nursing area in a stable condition. Impression: Change in bowel habits. Very few diverticulae. No polyps. Copy Copies To 1: REINALDO SAVAGE MD, XAVIER M MD Jul 21, 2018 10:29
--- NOTE | 2018-07-21 10:30 | Anesthesia-General Post-Op ---
MAC Patient Condition Mental Status/LOC: Same as Preop Cardiovascular: Satisfactory Nausea/Vomiting: Absent Respiratory: Satisfactory Pain: Controlled Complications: Absent Post Op Complications Complications None Follow Up Care/Instructions Patient Instructions None needed. Anesthesiology Discharge Order Discharge Order Patient is doing well, no complaints, stable vital signs, no apparent adverse anesthesia problems. No complications reported per nursing. CARLOS ENRIQUE BROOKS CRNA Jul 21, 2018 10:30
--- NOTE | 2018-07-21 10:33 | Discharge Inst-Simple/Standard ---
Discharge Inst-Standard Discharge Medications New, Converted or Re-Newed RX: Other Patient Instructions/Follow Up Plan of Care/Instructions/FU: follow-up with her primary physician as needed Activity as Tolerated: Yes Discharge Diet: No Restrictions JESSY WHITAKER MD Jul 21, 2018 10:33
[2018-07-21 10:50] VITALS: BP 117/59
[2018-07-21 11:30] VITALS: BP 112/75
[2018-07-21 11:50] VITALS: BP 112/75
== END 2018-07-21 11:50 | disposition home or self-care (01) ==
LOC: ENDO 08:47
PROVIDERS: ATTEND Surgery
DX: K57.30 Diverticulosis of large intestine without perforation or abscess without bleeding (principal); K52.9 Noninfective gastroenteritis and colitis, unspecified; J45.909 Unspecified asthma, uncomplicated; E78.00 Pure hypercholesterolemia, unspecified; I10 Essential (primary) hypertension; G43.909 Migraine, unspecified, not intractable, without status migrainosus; M79.7 Fibromyalgia; E11.40 Type 2 diabetes mellitus with diabetic neuropathy, unspecified; I73.00 Raynaud's syndrome without gangrene; G90.50 Complex regional pain syndrome I, unspecified; F40.240 Claustrophobia; Z79.899 Other long term (current) drug therapy; Z88.0 Allergy status to penicillin; Z88.6 Allergy status to analgesic agent; Z88.5 Allergy status to narcotic agent

== ENCOUNTER → 2018-07-23 | Outpatient (CLI) | payer OTHER, MEDICARE ==
--- NOTE | 2018-07-23 10:12 | Diagnostic Imaging Report ---
PROCEDURE: MRI right joint lower extremity without contrast. TECHNIQUE: Multiplanar, multisequence MR imaging of the right knee was performed without contrast. COMPARISON: Right knee MRI of 11/30/2016 INDICATION: Right knee pain. Prior fall. FINDINGS: MENISCI Medial meniscus: Truncation of the free edge of the posterior horn of the medial meniscus may relate to partial meniscectomy and debriding. A recurrent partial-thickness free edge tearing near the posterior root fibers could be present. The body of the medial meniscus is partially extruded into the medial gutter which is unchanged when compared to prior exam. Lateral meniscus: Normal. LIGAMENTS ACL: Intact. PCL: Intact. MCL: Intact. LCL: The lateral collateral ligamentous complex is intact. EXTENSOR MECHANISM The extensor mechanism is intact. CARTILAGE Medial compartment: Low-grade partial-thickness articular cartilage thinning. The medial compartment is unchanged. Lateral compartment: The lateral compartment articular cartilage is preserved without high-grade chondromalacia. Patellofemoral compartment: High-grade partial-thickness articular cartilage loss in the medial patellar facet and at the patellar apex is also unchanged. BONE No fracture, stress fracture or osteonecrosis. SOFT TISSUE No knee effusion or Lyman's cyst. IMPRESSION: 1. No fracture or bone contusion of the patella. Extensor mechanism is intact. 2. Prior partial meniscectomy of the medial meniscus. Recurrent free edge tearing at the site of partial meniscectomy near the root insertional fibers could potentially be present. 3. Cruciate and collateral ligaments are intact. 4. Partial-thickness degenerative chondral thinning in the patellofemoral and medial compartments is stable. Dictated by: Dictated on workstation # [id number]
== END ==
LOC: RAD 08:38
PROVIDERS: ATTEND Orthopaedic Surgery
DX: S83.241A Other tear of medial meniscus, current injury, right knee, initial encounter (principal); W19.XXXA Unspecified fall, initial encounter; Z98.890 Other specified postprocedural states
CPT/HCPCS: 73721

== ENCOUNTER → 2018-08-08 | Outpatient (CLI) | payer OTHER, MEDICARE ==
--- NOTE | 2018-08-08 13:36 | Diagnostic Imaging Report ---
PROCEDURE: US Thyroid. TECHNIQUE: Multiple real-time grayscale images were obtained of the thyroid in various projections. INDICATION: Thyroid nodule. COMPARISON: Comparison 02/18/2018. FINDINGS: The right lobe measures 4.1 x 1.4 x 1.2 cm. The nodule noted inferiorly in right lobe is unchanged measuring 5 x 4 mm. The left lobe measures 4.4 x 1.1 x 1.7 cm. The nodule along the inferior portion measures 6 x 5 mm and is unchanged. There is a new 3 x 2 mm nodule in the upper portion of the left lobe. The isthmus appears normal. IMPRESSION: Bilateral lower lobe thyroid nodules are stable with a new 3 mm nodule now present on the left. Dictated by: Dictated on workstation # [id number]
== END ==
LOC: RAD 10:25
PROVIDERS: ATTEND Nurse Practitioner Family
DX: E04.2 Nontoxic multinodular goiter (principal)
CPT/HCPCS: 76536

== ENCOUNTER → 2018-10-08 | Outpatient (CLI) | payer OTHER, MEDICARE ==
[~2018-10-08] MED LIST changes: -AMLO10TA6 PO; +AMLO10TA7 PO; +CHOL200014 PO; -CHOL200085 PO
--- NOTE | 2018-10-08 15:44 | Diagnostic Imaging Report ---
PROCEDURE: CT abdomen and pelvis without contrast. TECHNIQUE: Multiple contiguous axial images were obtained through the abdomen and pelvis without the use of intravenous contrast. INDICATION: Hematuria. Left flank pain. COMPARISON: CT abdomen and pelvis without contrast 02/28/2009. FINDINGS: Minimal scarring or atelectasis in the lung bases. Cholecystectomy. Mild ureterectasis and adjacent stranding in the proximal right ureter. There are no renal stones in either ureter. There are a couple nonobstructing 0.2 to 0.3 cm calyceal tip renal stones in each kidney. The unopacified bladder is negative. The liver, pancreas, spleen, adrenals and appendix are negative on this noncontrast exam. Hysterectomy. Mild colonic diverticulosis without evidence of active diverticulitis. No free intraperitoneal air or fluid. No lymphadenopathy. No evidence of bowel obstruction. IMPRESSION: 1. There are a few tiny nonobstructing calyceal tip renal stones in each kidney. No ureteral or bladder stones. There is a mildly prominent proximal right ureter with associated adjacent stranding. Findings are nonspecific but can be seen after recent passage of a renal stone. Infectious process could have a similar appearance. 2. Mild colonic diverticulosis without evidence of active diverticulitis. Dictated by: Dictated on workstation # [id number]
== END ==
LOC: RAD 14:39
PROVIDERS: ATTEND Urology
DX: K57.30 Diverticulosis of large intestine without perforation or abscess without bleeding (principal); R31.9 Hematuria, unspecified
CPT/HCPCS: 74176

== ENCOUNTER → 2018-11-18 | Outpatient (CLI) | payer OTHER, MEDICARE ==
[~2018-11-18] MED LIST changes: -HYDR-3454 PO; +HYDR-3455 PO
--- NOTE | 2018-11-18 16:21 | Diagnostic Imaging Report ---
INDICATION: Epigastric pain EXAM: Supine and upright abdominal images were obtained. FINDINGS: The lung bases are clear. The gallbladder is surgically absent. There are air-filled small bowel loops with air-fluid levels seen on the upright view. Colon is unremarkable. IMPRESSION: Multiple air-fluid level of the small bowel could represent early obstruction versus gastroenteritis. Dictated by: Dictated on workstation # [id number]
== END ==
LOC: RAD 11:12
PROVIDERS: ATTEND Nurse Practitioner Family
DX: R10.13 Epigastric pain (principal); Z90.49 Acquired absence of other specified parts of digestive tract
CPT/HCPCS: 74019

== ENCOUNTER → 2018-11-20 | Outpatient (CLI) | payer OTHER, MEDICARE ==
[~2018-11-20] MED LIST changes: +IOHEXOL 350 MG/ML 100 ML (OMNIPAQUE 350) VIAL IV ONE; +NS 100 ML (IVPB) BAG IV ONE; +RECEIVED CONTRAST 20 ML VIAL IV SCH
--- NOTE | 2018-11-20 14:22 | Diagnostic Imaging Report ---
PROCEDURE: CT abdomen with contrast only. TECHNIQUE: Multiple contiguous axial images were obtained through the abdomen after the administration of intravenous contrast. INDICATION: Abdominal pain and diarrhea for two weeks. COMPARISON: Correlation is made with prior CT from 10/08/2018. FINDINGS: Lung bases are clear. Liver demonstrates some mild generalized low density consistent with hepatic steatosis. No discrete liver mass is seen. Gallbladder is surgically absent. No biliary ductal dilatation is seen. Pancreas and spleen are unremarkable. No adrenal mass is identified. Punctate hyperdensity in the right kidney is noted consistent with nonobstructing calculus. There is no hydronephrosis. Aorta is nonaneurysmal. The visualized small and large bowel loops in the abdomen are normal caliber. There is some diverticulosis of the descending colon. Note is made that the small and large bowel loops in the pelvis cannot be evaluated due to only a CT abdomen being performed. No free fluid in the abdomen is seen. No central, retroperitoneal or mesenteric lymphadenopathy is seen. IMPRESSION: 1. Hepatic steatosis. 2. Nonobstructing nephrolithiasis. 3. Diverticulosis of the descending colon. No acute feature in the abdomen is identified. Note is made that the pelvic structures including the small and large bowel within the pelvis cannot be evaluated due to absence of scanning of the pelvis. If there is concern for GI pathology, CT pelvis should be included. No other significant abnormality is seen. Dictated by: Dictated on workstation # [id number]
== END ==
LOC: RAD 13:07
PROVIDERS: ATTEND Nurse Practitioner Family
DX: N20.0 Calculus of kidney (principal); K76.0 Fatty (change of) liver, not elsewhere classified; K57.30 Diverticulosis of large intestine without perforation or abscess without bleeding; Z90.49 Acquired absence of other specified parts of digestive tract
CPT/HCPCS: 74160

== ENCOUNTER → 2018-12-24 | Outpatient (CLI) | payer OTHER, MEDICARE ==
[~2018-12-24] MED LIST changes: -IOHEXOL 350 MG/ML 100 ML (OMNIPAQUE 350) VIAL IV ONE; -NS 100 ML (IVPB) BAG IV ONE; -RECEIVED CONTRAST 20 ML VIAL IV SCH
== END ==
LOC: RAD 09:38
PROVIDERS: ATTEND Obstetrics & Gynecology
DX: R92.8 Other abnormal and inconclusive findings on diagnostic imaging of breast (principal); Z53.8 Procedure and treatment not carried out for other reasons

== ENCOUNTER → 2018-12-24 | Outpatient (CLI) | payer OTHER, MEDICARE ==
[~2018-12-24] VITALS: Ht 167.6 cm; Wt 92.1 kg
[~2018-12-24] MED LIST changes: +REGADENOSON 0.4 MG/5 ML SYR (LEXISCAN) IV ONE
[2018-12-24] MEDS: CATHETER FLUSH 10 ML SYR IV PRN ×2 (11:35→13:02)
[2018-12-24 13:01] VITALS: BP 134/89
--- NOTE | 2018-12-24 17:51 | STRESS TEST ---
DATE OF SERVICE: 12/24/2018 LEXISCAN MYOVIEW STRESS TEST REPORT REFERRING PHYSICIAN: Dr. Ledesma. Baseline heart rate is 63, baseline blood pressure 134/89, baseline EKG is sinus rhythm with no ischemic changes. In summary, the patient was injected with 10.73 mCi of technetium-99 Myoview and the resting images were obtained. Then, the patient received 0.4 mg of Lexiscan, followed by 32.1 mCi of technetium-99 Myoview. Throughout the test, there were no EKG changes. The resting and stress images were reviewed and compared in the short axis, horizontal long axis, and vertical long axis views. Review of the images showed breast attenuation with mild decrease uptake involving the mid to apical anterolateral and inferolateral wall with mild reversibility. SSS is 5, SDS 5, TID value 1.05. On the gated images, the left ventricle appeared to be in normal size with normal contractility. Calculated ejection fraction 76%. IN CONCLUSION: 1. The patient tolerated Lexiscan well. 2. Breast attenuation with mild decreased uptake involving the mid to apical anterolateral and inferolateral wall. 3. Normal left ventricular size with normal contractility. Calculated ejection fraction 76%. Job ID: [id number] DocumentID: [id number] Dictated Date: 12/24/2018 15:19:31 Dental Assistant Date: 12/24/2018 17:50:59 Dictated By: ALANNA SWAIN MD
== END ==
LOC: CARD 09:40
PROVIDERS: ATTEND Internal Medicine Cardiovascular Disease
DX: I65.23 Occlusion and stenosis of bilateral carotid arteries (principal); F32.9 Major depressive disorder, single episode, unspecified; R31.0 Gross hematuria; R06.09 Other forms of dyspnea
CPT/HCPCS: 78452; 93017

== ENCOUNTER 2019-01-07 07:01 | Day surgery (SDC) | payer OTHER, MEDICARE ==
[2019-01-07] VITALS (11 sets, daily range): BP systolic 121–155; BP diastolic 67–94
[~2019-01-07] VITALS: Ht 167.6 cm; Wt 92.1 kg
[~2019-01-07 07:01] MED LIST changes: -REGADENOSON 0.4 MG/5 ML SYR (LEXISCAN) IV ONE
--- OUTSIDE RECORDS SUMMARY | 2019-01-07 07:05 | XMS REPORT | Clinical Summary ---
Author Author [facility] Organization [facility] Address Unknown Phone Unavailable Care Team Providers Care Assembler Name Role Phone Miguel Wen MD Unavailable Source Comments Some departments are not documenting in the electronic medical record. If you do not see the information that you expected, contact Release of Information in the Health Information Management department at [phone] for further assistance in locating additional records.[facility] Allergies Comments Active Allergy Reactions Severity Noted Date Duloxetine ANAPHYLAXIS 09/17/2012 Gluten UNKNOWN 09/17/2012 Levofloxacin In D5w ANAPHYLAXIS 09/17/2012 Nitrofurantoin ANAPHYLAXIS 09/17/2012 Monohyd/M-Cryst Mecobal-Levomefolat Ca-B6 NAUSEA AND 09/17/2012 Phos VOMITING Gabapentin AGITATION 09/17/2012 Nuts ANAPHYLAXIS 09/17/2012 Oxycodone-Acetaminophen ITCHING 09/17/2012 Prednisone AGITATION, 09/17/2012 EDEMA Milnacipran HEADACHE 09/17/2012 Tramadol HIVES, 09/17/2012 ITCHING Medications End Date Status Medication Sig Dispensed Refills Start Date Active ERGOCALCIFEROL (VITAMIN Take 2,000 0 D2) (VITAMIN D PO) Units by mouth daily. Active TOPIRAMATE (TOPAMAX PO) Take 75 mg by 0 mouth twice daily. Active metoprolol XL (TOPROL XL) Take 50 mg by 0 50 mg tablet mouth daily. Active aspirin 81 mg chewable Take 81 mg by 0 tablet mouth daily. Active hydrochlorothiazide Take 12.5 mg 0 (HYDRODIURIL) 12.5 mg Tab by mouth tablet daily. Active folic acid (FOLVITE) 1 mg Take 1 mg by 0 tablet mouth daily. Active Strawn-3 Acid Ethyl Esters Take 1 g by 0 (LOVAZA) 1 gram cap mouth twice daily with meals. Active CYCLOBENZAPRINE HCL Take 10 mg by 0 (FLEXERIL PO) mouth. Active fenofibrate Take 145 mg 0 nanocrystallized (TRICOR) by mouth 145 mg tablet daily. Active pantoprazole DR Take 40 mg by 0 (PROTONIX) 40 mg tablet mouth daily. Active desvenlafaxine(+) Take 50 mg by 0 (PRISTIQ) 50 mg tablet mouth daily. Active potassium chloride SR Take 20 mEq 0 (K-DUR) 20 mEq tablet by mouth daily. Active amitriptyline (ELAVIL) 25 Take 25 mg by 0 mg tablet mouth at bedtime daily. Active cetirizine (ZYRTEC) 10 mg Take 10 mg by 0 tablet mouth as Needed. Active cholestyramine/aspartame Take 1 Packet 0 4 gram packet by mouth as Needed. Active DIPHENOXYLATE Take by 0 HCL/ATROPINE (LOMOTIL PO) mouth as Needed. Active HYOSCYAMINE SULFATE Take by 0 (HYOMAX PO) mouth. Active diazepam (VALIUM) 5 mg Take 5 mg by 0 tablet mouth every 6 hours as needed. Active rizatriptan (MAXALT) 10 Take 10 mg by 0 mg tablet mouth once as needed. May repeat in 2 hours in needed Active naproxen (NAPROSYN) 500 Take 500 mg 0 mg tablet by mouth twice daily with meals. Active HYDROCODONE BIT/HOMATROP Take by 0 ME-BR (HYDROCODONE mouth as COMPOUND PO) Needed. Active Problems Problem Noted Date Neck pain 09/17/2012 Fibromyalgia 09/17/2012 Family History Medical History Relation Name Comments Hypertension Brother Alcohol abuse Father Arthritis Father Hypertension Father Stroke Father Alcohol abuse Mother Arthritis Mother Depression Mother Diabetes Mother Hypertension Mother Relation Name Status Comments Brother Father Mother Social History Date Tobacco Use Types Packs/Day Years Used Quit: 09/17/1975 Former Smoker Cigarettes Smokeless Tobacco: Never Used Alcohol Use Drinks/Week oz/Week Comments No Sex Assigned at Date Recorded Not on file Industry Job Start Date Occupation Not on file Not on file Not on file Travel End Travel History Travel Start No recent travel history available. Last Filed Vital Signs Time Taken Vital Sign Reading 09/17/2012 11:32 AM [employer] Blood Pressure 127/85 09/17/2012 11:32 AM [employer] Pulse 76 - Temperature - - Respiratory Rate - - Oxygen Saturation - - Inhaled Oxygen - Concentration 09/17/2012 11:32 AM [employer] Weight 95.5 kg (210 lb 9.6 oz) 09/17/2012 11:32 AM [employer] Height 167.6 cm (5' 6") 09/17/2012 11:32 AM [employer] Body Mass Index 33.99 Plan of Treatment Health Maintenance Due Date Last Done Comments HEPATITIS C SCREENING 1960 PHYSICAL (COMPREHENSIVE) 01/29/1967 EXAM HIV SCREENING 01/29/1975 DTAP/TDAP VACCINES (1 - 01/29/1978 Tdap) CERVICAL CANCER SCREENING 01/29/1990 BREAST CANCER SCREENING 2000 COLORECTAL CANCER 01/29/2010 SCREENING SHINGLES RECOMBINANT 01/29/2010 VACCINE (1 of 2) INFLUENZA VACCINE 06/09/2019 Results Not on filefrom Last 3 Months
[2019-01-07] MEDS ORDERED: LIDOCAINE 1% INJ 20 ML 20 ML VIAL ONE (07:11)
[2019-01-07] MEDS ORDERED: HEParin (CATH LAB) 2,000 ML IV ONE (07:12)
[2019-01-07] MEDS ORDERED: NS IV 1000 ML 1,000 ML ONE (07:12)
--- OUTSIDE RECORDS SUMMARY | 2019-01-07 07:13 | XMS REPORT | CCD ---
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 Name Role Phone PP Unavailable CCM Unavailable Summary Purpose Interface Exchange Insurance Providers Payer name Policy type / Coverage type Covered green party ID Effective Begin Date Effective End Date [facility] Commercial Insurance [id number] Unknown WPS Medicare Part B Commercial Insurance [id number] 2018 Unknown Family history Daughter Diagnosis Age At Onset No Family Disease Entered N/A Daughter Diagnosis Age At Onset No Family Disease Entered N/A Father Diagnosis Age At Onset No Family Disease Entered N/A Son Diagnosis Age At Onset No Family Disease Entered N/A Brother Diagnosis Age At Onset No Family Disease Entered N/A Mother Diagnosis Age At Onset No Family Disease Entered N/A Social History Social History Element Codes Description Effective Dates Marital status Unknown 03/26/[address]: 1695680 Former smoker quit 1979 03/26/2016 Number of children Unknown 3 07/10/[address]: 545496641 Never drinks alcohol 07/10/2012 Has the patient ever used illegal drugs? Unknown Has never used illegal drugs 07/10/2012 Allergies, Adverse Reactions, Alerts Substance Reaction Codes Entered Date Inactivated Date Status cymbalta RxNorm: 832730 07/14/2012 No Inactive Date Active Savella nausea RxNorm: 906773 07/14/2012 No Inactive Date Active Metanx nausea RxNorm: 485232 07/14/2012 No Inactive Date Active Gluten Unknown 07/10/2012 No Inactive Date Active Peanuts Unknown 07/10/2012 No Inactive Date Active Levaquin hives RxNorm: 00881 07/14/2012 No Inactive Date Active macrobid pruritis, hives, RxNorm: 819864 07/14/2012 No Inactive Date Active percocet pruritis RxNorm: 508143 07/14/2012 No Inactive Date Active PREDNISONE pruritis, RxNorm: 8640 07/14/2012 No Inactive Date Active ultram pruritis, hives RxNorm: 72496 06/11/2016 No Inactive Date Active GABAPENTIN nausea, Unknown 07/14/2012 No Inactive Date Active Past Medical History Illness Codes Condition Status Onset Date Resolved Date Diarrhea, unspecified ICD-9: 787.91 ICD-10: R19.7 Active 11/18/2018 Unknown Epigastric pain ICD-9 : 789.06 ICD-10: R10.13 Active 07/04/2016 Unknown Gastro-esophageal reflux disease without esophagitis ICD-9: 530.81 ICD-10: K21.9 Active 04/09/2014 Unknown Generalized abdominal pain ICD-9: 789.07 ICD-10: R10.84 Active 08/29/2016 Unknown Essential (primary) hypertension ICD-9: 401.1 ICD-10: I10 Active 02/11/2018 Unknown Functional diarrhea ICD-9: 787.91 ICD-10: K59.1 Active 10/02/2018 Unknown Generalized anxiety disorder ICD-9: 300.00 ICD-10: F41.1 Active 11/21/2016 Unknown Major depressive disorder, recurrent, moderate ICD-9: 296.32 ICD-10: F33.1 Active 11/21/2016 Unknown 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 ICD-10: E04.2 Active 02/20/2017 Unknown Other fatigue ICD-9: 780.79 ICD-10: R53.83 Active 12/15/2013 Unknown Slow transit constipation ICD-9: 564.01 ICD-10: K59.01 Active 08/06/2018 Unknown Encounter for screening mammogram for malignant neoplasm of breast ICD-9: V76.10 ICD-10: Z12.31 Active 07/09/2018 Unknown Essential (primary) hypertension ICD-9: 401.9 ICD-10: I10 Active 03/16/2014 Unknown Encounter for immunization ICD-9: V03.82 ICD-10: Z23 Active 06/05/2018 Unknown Mixed hyperlipidemia ICD-9: 272.2 ICD-10: E78.2 Active 02/20/2017 Unknown Acute recurrent maxillary sinusitis ICD-9: 461.0 ICD-10: J01.01 Active 11/01/2015 Unknown Encounter for other preprocedural examination ICD-9: V72.84 ICD-10: Z01.818 Active 06/24/2017 Unknown Encounter for immunization ICD-9: V03.9 ICD-10: Z23 Active 06/19/2017 Unknown Acute recurrent frontal sinusitis ICD-9: 461.1 ICD-10: J01.11 Active 05/22/2017 Unknown Type 2 diabetes mellitus without complications ICD-9: 250.00 ICD-10: E11.9 Active 01/16/2015 Unknown Cough ICD-9: 786.2 ICD-10: R05 Active 11/01/2015 Unknown Muscle weakness (generalized) ICD-9: 729.89 ICD-10: M62.81 Active 11/21/2016 Unknown Snoring ICD-9: 786.09 ICD-10: R06.83 Active 04/08/2017 Unknown Somnolence ICD-9: 780.09 ICD-10: R40.0 Active 04/08/2017 Unknown Chronic migraine without aura, not intractable, without status migrainosus ICD-9: 346.70 ICD-10: G43.709 Active 02/20/2017 Unknown Impaired fasting glucose ICD-9: 790.29 ICD-10: R73.01 Active 02/20/2017 Unknown Vitamin deficiency, unspecified ICD-9: 269.2 ICD-10: E56.9 Active 06/12/2015 Unknown Chronic pain syndrome ICD-9: 338.4 ICD-10: G89.4 Active 05/09/2015 Unknown Other specified polyneuropathies ICD-9: 356.9 ICD-10: G62.89 Active 11/21/2016 Unknown Toxic gastroenteritis and colitis ICD-9: 558.2 ICD-10: K52.1 Active 06/10/2016 Unknown Left upper quadrant pain ICD-9: 789.02 ICD-10: R10.12 Active 06/03/2016 Unknown Cellulitis of left toe ICD-9: 681.10 ICD-10: L03.032 Active 04/09/2016 Unknown 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 Active 12/25/2015 Unknown Other seasonal allergic rhinitis ICD-9: 477.9 ICD-10: J30.2 Active 11/01/2015 Unknown Acute laryngopharyngitis ICD-9: 465.0 ICD-10: J06.0 Active 09/12/2015 Unknown Urgency of urination ICD-9: 788.63 ICD-10: R39.15 Active 09/12/2015 Unknown Dysuria ICD-9: 788.1 ICD-10: R30.0 Active 09/07/2015 Unknown Acute nasopharyngitis [common cold] ICD-9: 460 ICD-10: J00 Active 09/06/2015 Unknown Cramp and spasm ICD-9 : 729.82 ICD-10: R25.2 Active 09/06/2015 Unknown Pain in left lower leg ICD-9: 729.5 ICD-10: M79.662 Active 09/06/2015 Unknown Varicose veins of unspecified lower extremities with other complications ICD-9: 454.9 ICD-10: I83.899 Active 01/16/2015 Unknown Other mixed anxiety disorders ICD-9: 300.09 ICD-10: F41.3 Active 06/12/2015 Unknown CHRONIC PAIN SYNDROME ICD-9: 338.4 Active 05/09/2015 Unknown Need for Tdap vaccination ICD-9: V06.1 Active 03/29/2015 Unknown Back pain ICD-9: 724.5 Active 08/11/2012 Unknown URINARY FREQUENCY ICD- 9: 788.41 Active 03/21/2015 Unknown Diabetes Unknown Active 01/17/2015 Unknown DIABETES TYPE II ICD-9 : 250.00 Active 01/16/2015 Unknown Varicose vein ICD-9: 454.9 Active 01/16/2015 Unknown HEADACHE ICD-9: 784.0 Active 11/22/2014 Unknown Neck pain ICD-9: 723.1 Active 11/22/2014 Unknown Vision changes ICD-9: 368.9 Active 11/22/2014 Unknown Meningitis exposure ICD-9: V01.89 Active 11/11/2014 Unknown ALLERGIC RHINITIS ICD- 9: 477.9 Active 10/15/2014 Unknown Elevated blood sugar ICD-9: 790.29 Active 10/15/2014 Unknown Vitamin D deficiency ICD-9: 268.9 Active 10/15/2014 Unknown Diarrhea ICD-9: 787.91 Active 09/30/2014 Unknown Nausea ICD-9: 787.02 Active 07/14/2014 Unknown Chronic migraine ICD-9 : 346.70 Active 06/23/2014 Unknown Hyponatremia ICD-9: 276.1 Active 06/23/2014 Unknown OBESITY ICD-9: 278.00 Active 06/23/2014 Unknown Costochondritis ICD-9 : 733.6 Active 04/09/2014 Unknown GERD (gastroesophageal reflux disease) ICD-9: 530.81 Active 09/2013 Unknown ESSENTIAL HYPERTENSION ICD-9: 401.9 Active 03/16/2014 Unknown RAYNAUD'S SYNDROME ICD -9: 443.0 Active 03/16/2014 Unknown Knee pain ICD-9: 719.46 Active 01/12/2014 Unknown Fatigue ICD-9: 780.79 Active 12/15/2013 Unknown Skin lesion ICD-9: 709.9 Active 10/20/2013 Unknown Peripheral neuropathy ICD-9: 356.9 Active 07/27/2013 Unknown COUGH ICD-9: 786.2 Active 06/09/2013 Unknown Dysphagia ICD-9: 787.20 Active 04/20/2013 Unknown Breast pain ICD-9: 611.71 Active 12/25/2012 Unknown ACUTE URI ICD-9: 465.9 Active 10/20/2012 Unknown B12 deficiency ICD-9: 266.2 Active 07/21/2012 Unknown Depression Unknown Active 07/10/2012 Unknown Fibromyalgia Unknown Active 07/10/2012 Unknown Hyperlipidemia Unknown Active 07/10/2012 Unknown Hypertension Unknown Active 07/10/2012 Unknown Migraine Unknown Active 07/10/2012 Unknown reflux Unknown Active 07/10/2012 Unknown Vitamin D Deficiency Unknown Active 07/10/2012 Unknown ACUTE SINUSITIS ICD-9 : 461.9 Active 07/10/2012 Unknown Gait instability ICD-9 : 781.2 Active 07/10/2012 Unknown Weakness of both legs ICD-9: 729.89 Active 07/10/2012 Unknown Problems Condition Codes Effective Dates Condition Status Diarrhea, unspecified ICD-9: 787.91 ICD-10: R19.7 11/18/2018 Active Epigastric pain ICD-9 : 789.06 ICD-10: R10.13 07/04/2016 Active Gastro-esophageal reflux disease without esophagitis ICD-9: 530.81 ICD-10: K21.9 04/09/2014 Active Generalized abdominal pain ICD-9: 789.07 ICD-10: R10.84 08/29/2016 Active Essential (primary) hypertension ICD-9: 401.1 ICD-10: I10 02/11/2018 Active Functional diarrhea ICD-9: 787.91 ICD-10: K59.1 10/02/2018 Active Generalized anxiety disorder ICD-9: 300.00 ICD-10: F41.1 11/21/2016 Active Major depressive disorder, recurrent, moderate ICD-9: 296.32 ICD-10: F33.1 11/21/2016 Active 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 ICD-10: E04.2 02/20/2017 Active Other fatigue ICD-9: 780.79 ICD-10: R53.83 12/15/2013 Active Slow transit constipation ICD-9: 564.01 ICD-10: K59.01 08/06/2018 Active Encounter for screening mammogram for malignant neoplasm of breast ICD-9: V76.10 ICD-10: Z12.31 07/09/2018 Active Essential (primary) hypertension ICD-9: 401.9 ICD-10: I10 03/16/2014 Active Encounter for immunization ICD-9: V03.82 ICD-10: Z23 06/05/2018 Active Mixed hyperlipidemia ICD-9: 272.2 ICD-10: E78.2 02/20/2017 Active Acute recurrent maxillary sinusitis ICD-9: 461.0 ICD-10: J01.01 11/01/2015 Active Encounter for other preprocedural examination ICD-9: V72.84 ICD-10: Z01.818 06/24/2017 Active Encounter for immunization ICD-9: V03.9 ICD-10: Z23 06/19/2017 Active Acute recurrent frontal sinusitis ICD-9: 461.1 ICD-10: J01.11 05/22/2017 Active Type 2 diabetes mellitus without complications ICD-9: 250.00 ICD-10: E11.9 01/16/2015 Active Cough ICD-9: 786.2 ICD-10: R05 11/01/2015 Active Muscle weakness (generalized) ICD-9: 729.89 ICD-10: M62.81 11/21/2016 Active Snoring ICD-9: 786.09 ICD-10: R06.83 04/08/2017 Active Somnolence ICD-9: 780.09 ICD-10: R40.0 04/08/2017 Active Chronic migraine without aura, not intractable, without status migrainosus ICD-9: 346.70 ICD-10: G43.709 02/20/2017 Active Impaired fasting glucose ICD-9: 790.29 ICD-10: R73.01 02/20/2017 Active Vitamin deficiency, unspecified ICD-9: 269.2 ICD-10: E56.9 06/12/2015 Active Chronic pain syndrome ICD-9: 338.4 ICD-10: G89.4 05/09/2015 Active Other specified polyneuropathies ICD-9: 356.9 ICD-10: G62.89 11/21/2016 Active Toxic gastroenteritis and colitis ICD-9: 558.2 ICD-10: K52.1 06/10/2016 Active Left upper quadrant pain ICD-9: 789.02 ICD-10: R10.12 06/03/2016 Active Cellulitis of left toe ICD-9: 681.10 ICD-10: L03.032 04/09/2016 Active 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 12/25/2015 Active Other seasonal allergic rhinitis ICD-9: 477.9 ICD-10: J30.2 11/01/2015 Active Acute laryngopharyngitis ICD-9: 465.0 ICD-10: J06.0 09/12/2015 Active Urgency of urination ICD-9: 788.63 ICD-10: R39.15 09/12/2015 Active Dysuria ICD-9: 788.1 ICD-10: R30.0 09/07/2015 Active Acute nasopharyngitis [common cold] ICD-9: 460 ICD-10: J00 09/06/2015 Active Cramp and spasm ICD-9 : 729.82 ICD-10: R25.2 09/06/2015 Active Pain in left lower leg ICD-9: 729.5 ICD-10: M79.662 09/06/2015 Active Varicose veins of unspecified lower extremities with other complications ICD-9: 454.9 ICD-10: I83.899 01/16/2015 Active Other mixed anxiety disorders ICD-9: 300.09 ICD-10: F41.3 06/12/2015 Active CHRONIC PAIN SYNDROME ICD-9: 338.4 05/09/2015 Active Need for Tdap vaccination ICD-9: V06.1 03/29/2015 Active Back pain ICD-9: 724.5 08/11/2012 Active URINARY FREQUENCY ICD- 9: 788.41 03/21/2015 Active Diabetes Unknown 01/17/2015 Active DIABETES TYPE II ICD-9 : 250.00 01/16/2015 Active Varicose vein ICD-9: 454.9 01/16/2015 Active HEADACHE ICD-9: 784.0 11/22/2014 Active Neck pain ICD-9: 723.1 11/22/2014 Active Vision changes ICD-9: 368.9 11/22/2014 Active Meningitis exposure ICD-9: V01.89 11/11/2014 Active ALLERGIC RHINITIS ICD- 9: 477.9 10/15/2014 Active Elevated blood sugar ICD-9: 790.29 10/15/2014 Active Vitamin D deficiency ICD-9: 268.9 10/15/2014 Active Diarrhea ICD-9: 787.91 09/30/2014 Active Nausea ICD-9: 787.02 07/14/2014 Active Chronic migraine ICD-9 : 346.70 06/23/2014 Active Hyponatremia ICD-9: 276.1 06/23/2014 Active OBESITY ICD-9: 278.00 06/23/2014 Active Costochondritis ICD-9 : 733.6 04/09/2014 Active GERD (gastroesophageal reflux disease) ICD-9: 530.81 04/09/2014 Active ESSENTIAL HYPERTENSION ICD-9: 401.9 03/16/2014 Active RAYNAUD'S SYNDROME ICD -9: 443.0 03/16/2014 Active Knee pain ICD-9: 719.46 01/12/2014 Active Fatigue ICD-9: 780.79 12/15/2013 Active Skin lesion ICD-9: 709.9 10/20/2013 Active Peripheral neuropathy ICD-9: 356.9 07/27/2013 Active COUGH ICD-9: 786.2 06/09/2013 Active Dysphagia ICD-9: 787.20 04/20/2013 Active Breast pain ICD-9: 611.71 12/25/2012 Active ACUTE URI ICD-9: 465.9 10/20/2012 Active B12 deficiency ICD-9: 266.2 07/21/2012 Active Depression Unknown 07/10/2012 Active Fibromyalgia Unknown 07/10/2012 Active Hyperlipidemia Unknown 07/10/2012 Active Hypertension Unknown 07/10/2012 Active Migraine Unknown 07/10/2012 Active reflux Unknown 07/10/2012 Active Vitamin D Deficiency Unknown 07/10/2012 Active ACUTE SINUSITIS ICD-9 : 461.9 07/10/2012 Active Gait instability ICD-9 : 781.2 07/10/2012 Active Weakness of both legs ICD-9: 729.89 07/10/2012 Active Medications Medication Codes Instructions Start Date Stop Date Status Fill Instructions Flagyl 500 mg tablet RxNorm: 163413 1 Tablet(s) PO TID 201812/20/2018 Active Flagyl 500 mg tablet RxNorm: 469103 1 Tablet(s) PO TID 201811/19/2018 Inactive Flagyl 500 mg tablet RxNorm: 001919 1 Tablet(s) PO TID 201811/29/2018 Inactive Augmentin 875 mg-125 mg tablet RxNorm: 340755 1 Tablet(s) PO BID 11/20/2018 11/29/2018 Inactive Augmentin 875 mg-125 mg tablet RxNorm: 403933 1 Tablet(s) PO BID 11/20/2018 11/19/2018 Inactive scopolamine 1 mg over 3 days transdermal patch RxNorm: 643995 1 Patch TD Q72H 10/02/2018 10/31/2018 Inactive Pristiq 50 mg tablet,extended release RxNorm: 605384 1 Tablet(s) PO BID 09/05/2018 08/30/2019 Active Glucocard Vital Sensor strips RxNorm: TEST TWO TIMES A DAY 03/06/2020 Active Request already responded to by other means (e.g. phone or fax) Vitamin B-12 1,000 mcg/mL injection solution RxNorm: 254726 INJECT 1 ML INTRAMUSCULARLY ONCE WEEKLY 08/29/2018 Active amlodipine 5 mg tablet RxNorm: 217499 1 Tablet(s) PO daily 11/19/2019 Active topiramate 100 mg tablet RxNorm: 711782 1/2 Tablet(s) PO BID 08/04/2019 Active [SAVINGS FOR UNINSURED PATIENTS -- BIN:[id number], PCN: ASPROD1, Group: [id number], ID# [id number], Process claim through PagPop, for questions: . THIS IS NOT INSURANCE.] amlodipine 10 mg tablet RxNorm: 770256 1/2 Tablet(s) PO daily 08/06/2018 08/26/2018 Inactive Pristiq 50 mg tablet,extended release RxNorm: 772668 1 Tablet(s) PO BID 08/06/2018 09/04/2018 Inactive Voltaren 1 % topical gel RxNorm: 065804 APPLY 2 GRAMS TOPICALLY FOUR TIMES A DAY 07/24/2018 10/31/2018 Inactive Fish Oil 1,000 mg capsule RxNorm: 1 Capsule(s) PO TID 201707/02/2019 Active Valium 5 mg tablet RxNorm: 085245 1 Tablet(s) PO PRN as needed 07/08/2018 No Stop Date Active Vagifem 10 mcg vaginal tablet RxNorm: 970422 1 Tablet(s) VAG daily 07/08/2018 No Stop Date Active naproxen sodium 550 mg tablet RxNorm: 596684 Tablet(s) as needed TAKE 1 TABLET BY MOUTH TWO TIMES DAILY 07/08/20182018 Inactive - Ref: [id number] Pristiq 100 mg tablet,extended release RxNorm: 312038 1 Tablet(s) PO daily 07/08/2018 08/05/2018 Inactive Voltaren 1 % topical gel RxNorm: 877287 APPLY 2 GRAMS TOPICALLY FOUR TIMES A DAY 07/08/2018 07/23/2018 Inactive topiramate 100 mg tablet RxNorm: 361018 1 Tablet(s) PO BID 08/05/2018 Inactive [SAVINGS FOR UNINSURED PATIENTS -- BIN:891302, PCN: ASPROD1, Group: [id number] , ID# [id number], Process claim through PagPop, for questions: . THIS IS NOT INSURANCE.] Valium 5 mg tablet RxNorm: 228647 1 Tablet(s) PO PRN as needed 06/24/2018 07/07/2018 Inactive folic acid 1 mg tablet RxNorm: 809478 TAKE ONE TABLET BY MOUTH EVERY DAY 05/27/2018 04/21/2019 Active Valium 5 mg tablet RxNorm: 382484 1 Tablet(s) PO PRN as needed 02/21/2018 No Stop Date Active Valium 5 mg tablet RxNorm: 412597 1 Tablet(s) PO PRN as needed 11/12/2017 02/20/2018 Inactive Synthroid 25 mcg tablet RxNorm: 609356 1 Tablet(s) PO daily 02/201811/11/2017 Inactive Synthroid 25 mcg tablet RxNorm: 254321 1 Tablet(s) PO daily 02/201802/10/2018 Inactive Nitro-Bid 2 % transdermal ointment RxNorm: 841104 APPLY TO AFFECTED AREA(S) TOPICALLY THREE TIMES A DAY NEEDED FOR RAYNAUDS SYMPTOMS OF FEET 08/26/2017 10/24/2017 Inactive Vitamin B-12 1,000 mcg/mL injection solution RxNorm: 131106 INJECT 1ML INTRAMUSCULARLY ONCE WEEKLY 08/23/2017 Inactive Request already responded to by other means (e.g. phone or fax) Vitamin B-12 1,000 mcg/mL injection solution RxNorm: 526828 Milliliter(s) INJECT 1ML INTRAMUSCULARLY ONCE WEEKLY 08/21/2017 08/22/2017 Inactive naproxen sodium 550 mg tablet RxNorm: 397568 TAKE 1 TABLET BY MOUTH TWO TIMES DAILY 08/09/2017 11/06/2017 Inactive - Ref: [id number] Combivent Respimat 20 mcg-100 mcg/actuation solution for inhalation RxNorm: 2959741 1-2 Puff(s) INH Q4 PRN 07/26/2017 No Stop Date Active Valium 5 mg tablet RxNorm: 391918 1 Tablet(s) PO PRN as needed 06/27/2017 11/11/2017 Inactive doxycycline hyclate 100 mg tablet RxNorm: 850455 1 Tablet(s) PO BID 06/24/2017 06/30/2017 Inactive azithromycin 250 mg tablet RxNorm: 600727 1 Tablet(s) PO UD 2 tabs on day #1, then 1 pill daily x 4 more days 05/22/2017 08/20/2017 Inactive hydrocodone 10 mg-chlorpheniramine 8 mg/5 mL oral susp extend.rel 12hr RxNorm: 9426539 5 PO as needed 05/10/20172017 Inactive Augmentin 875 mg-125 mg tablet RxNorm: 231129 1 Tablet(s) PO BID 05/10/2017 05/16/2017 Inactive folic acid 1 mg tablet RxNorm: 893369 TAKE ONE TABLET BY MOUTH EVERY DAY 05/09/2017 05/03/2018 Inactive Carafate 1 gram tablet RxNorm: 945031 TAKE ONE TABLET BY MOUTH FOUR TIMES A DAY 30 MINUTES BEFORE MEALS AND AT BEDTIME 03/18/2017 07/07/2018 Inactive scopolamine 1.5 mg transdermal patch (1 mg over 3 days) RxNorm: 864858 1 Patch TD Q72H use for sea sickness 02/20/201703/05 Inactive Pristiq 50 mg tablet,extended release RxNorm: 187429 1 Tablet(s) PO daily 01/15/2017 07/07/2018 Inactive Pristiq 50 mg tablet,extended release RxNorm: 883436 1 Tablet(s) PO BID 12/20/2016 01/14/2017 Inactive naproxen sodium 550 mg tablet RxNorm: 819591 Tablet(s) Take 1 tablet by mouth twice a day 11/14/2016 08/08/2017 Inactive OneTouch Delica Lancets 33 gauge RxNorm: TEST TWO TIMES A DAY 11/12/2016 04/10/2017 Inactive Phenergan VC-Codeine 6.25 mg-5 mg-10 mg/5 mL syrup RxNorm: 608113 5 Milliliter(s) PO Q6 as needed cough 09/06/20162016 Inactive Nitro-Bid 2 % transdermal ointment RxNorm: 363428 APPLY TO AFFECTED AREA(S) TOPICALLY THREE TIMES A DAY NEEDED FOR RAYNAUDS SYMPTOMS OF FEET 08/21/2016 10/19/2016 Inactive Voltaren 1 % topical gel RxNorm: 828720 APPLY 2 GRAMS TOPICALLY FOUR TIMES A DAY 08/21/2016 12/22/2016 Inactive Vitamin B-12 1,000 mcg/mL injection solution RxNorm: 736437 INJECT 1ML INTRAMUSCULARLY ONCE WEEKLY 08/21/2016 Inactive folic acid 1 mg tablet RxNorm: 596590 TAKE ONE TABLET BY MOUTH EVERY DAY 08/13/2016 04/09/2017 Inactive Flagyl 500 mg tablet RxNorm: 271547 1 Tablet(s) PO TID 201506/22/2016 Inactive Cholestyramine Light 4 gram oral powder RxNorm: 251070 1 packet PO PRN as needed 06/11/2016 No Stop Date Active Flexeril 10 mg tablet RxNorm: 623044 1 Tablet(s) PO as needed 02/19/2017 Inactive 1 hs Vagifem 10 mcg vaginal tablet RxNorm: 838752 1 Tablet(s) VAG BIW -TIW 06/11/2016 07/07/2018 Inactive Flagyl 500 mg tablet RxNorm: 645535 1 Tablet(s) PO TID 201506/10/2016 Inactive Lomotil 2.5 mg-0.025 mg tablet RxNorm: 5632599 1 Tablet(s) PO AC & HS as needed 04/24/2016 05/23/2016 Inactive Keflex 500 mg capsule RxNorm: 467582 1 Capsule(s) PO TID 201504/11/2016 Inactive Keflex 500 mg capsule RxNorm: 937801 1 Capsule(s) PO TID 201504/18/2016 Inactive Pristiq 50 mg tablet,extended release RxNorm: 439942 1 Tablet(s) PO QAM 03/30/2016 12/19/2016 Inactive amitriptyline 25 mg tablet RxNorm: 665471 1/2 Tablet(s) PO QHS x [address] pablo 03/30/2016 06/10/2016 Inactive potassium chloride 20 mEq/15 mL oral liquid RxNorm: 107927 TAKE 2 TABLESPOONS DAILY 03/23/2016 09/18/2016 Inactive Glucocard Vital Sensor strips RxNorm: TEST TWO TIMES A DAY 10/17/2017 Inactive Questran 4 gram oral powder RxNorm: 318921 1 dose PO daily 04/201602/14/2016 Inactive Questran 4 gram oral powder RxNorm: 664573 1 dose PO daily 04/201603/15/2016 Inactive Miralax 17 gram oral powder packet RxNorm: 304347 1 PO daily 02/08/2016 Inactive Miralax 17 gram oral powder packet RxNorm: 493108 1 PO daily 06/10/2016 Inactive Carafate 1 gram tablet RxNorm: 166770 1 Tablet(s) PO QID take 30 minutes before meals and at bedtime 01/23/20162015 Inactive Vitamin D2 50,000 unit capsule RxNorm: 247129 1 Capsule(s) PO QW 12/26/2015 03/24/2016 Inactive Tamiflu 75 mg capsule RxNorm: 083833 1 Capsule(s) PO daily 11/2111/21/2015 Inactive Tamiflu 75 mg capsule RxNorm: 749905 1 Capsule(s) PO daily 11/2112/01/2015 Inactive folic acid 1 mg tablet RxNorm: 536695 TAKE ONE TABLET BY MOUTH EVERY DAY 11/03/2015 07/29/2016 Inactive Keflex 500 mg capsule RxNorm: 595280 1 Capsule(s) PO TID 201511/11/2015 Inactive Augmentin 500 mg-125 mg tablet RxNorm: 812165 1 Tablet(s) PO TID 09/13/2015 09/22/2015 Inactive Zithromax Z-Juanpablo 250 mg tablet RxNorm: 477842 1 Tablet(s) PO 12/25/2015 Inactive OneTouch Delica Lancets 33 gauge RxNorm: 1 test Miscellaneous BID 06/21/2015 06/14/2016 Inactive Nitro-Bid 2 % transdermal ointment RxNorm: 316084 1 Application TD TID as needed raynauds symptoms of feet 06/01/201508/29 Inactive Vitamin B-12 1,000 mcg/mL injection solution RxNorm: 068750 INJECT 1ML INTRAMUSCULARLY ONCE WEEKLY 05/16/201503/2016 Inactive Voltaren 1 % topical gel RxNorm: 858080 2 Gram(s) TOP QID 05/1007/08/2015 Inactive potassium chloride 20 mEq/15 mL oral liquid RxNorm: 419819 TAKE 2 TABLESPOONS DAILY 04/22/2015 10/18/2015 Inactive naproxen sodium 550 mg tablet RxNorm: 534593 Tablet(s) Take 1 tablet by mouth twice a day 03/10/2015 06/01/2016 Inactive naproxen sodium 550 mg tablet RxNorm: 005860 Take 1 tablet by mouth twice a day 03/09/2015 11/15/2016 Inactive 2nd Attempt Pristiq 50 mg tablet,extended release RxNorm: 337452 1 Tablet(s) PO BID 03/09/2015 03/08/2015 Inactive naproxen sodium 550 mg tablet RxNorm: 843811 1 Tablet(s) PO BID 03/09/2015 03/08/2015 Inactive naproxen sodium 550 mg tablet RxNorm: 335762 Take 1 tablet by mouth twice a day 03/09/2015 03/09/2015 Inactive Pristiq 50 mg tablet,extended release RxNorm: 010340 Take 1 tablet twice a day 03/09/2015 03/29/2016 Inactive folic acid 1 mg tablet RxNorm: 186939 TAKE ONE TABLET BY MOUTH EVERY DAY 01/17/2015 11/02/2015 Inactive Vitamin B-12 1,000 mcg/mL injection solution RxNorm: 669750 INJECT 1 MLS DIRECTED ONCE WEEKLY 12/03/20142015 Inactive hydrocodone 10 mg-acetaminophen 325 mg tablet RxNorm: 517690 1 Tablet(s) PO Q6 PRN 11/22/2014 12/21/2014 Inactive [SAVINGS FOR NON-COVERED DRUGS -- BIN:067787, PCN: ASPROD1, Group: XXXXX, ID# [id number], Questions: . THIS IS NOT INSURANCE.] ceftriaxone 1 gram solution for injection RxNorm: 9037082 Inj 11/11/2014 11/11/2014 Inactive [SAVINGS FOR NON-COVERED DRUGS -- BIN:284349, PCN: ASPROD1, Group: XXXXX, ID# [id number], Questions: . THIS IS NOT INSURANCE.] Glucocard Vital Sensor strips RxNorm: 1 test Miscellaneous BID 10/27/2014 10/26/2014 Inactive DX code 790.29 Glucocard Vital Sensor strips RxNorm: 1 test Miscellaneous BID 10/27/2014 11/20/2015 Inactive DX code 790.29 [SAVINGS FOR UNINSURED PATIENTS -- BIN:[id number], PCN: ASPROD1, Group: [id number], ID# [id number], Process claim through PagPop, for questions: . THIS IS NOT INSURANCE.] topiramate 100 mg tablet RxNorm: 160439 2 Tablet(s) PO BID 04/27/2015 Inactive [SAVINGS FOR UNINSURED PATIENTS -- BIN:920378, PCN: ASPROD1, Group: [employer]Vale , ID# [id number], Process claim through PagPop, for questions: . THIS IS NOT INSURANCE.] Cholestyramine Susp Light 4 gram powder for susp in a packet RxNorm: 830695 packet PO PRN as needed 08/30/20142015 Inactive Nitro-Bid 2 % transdermal ointment RxNorm: 250776 1 Application TD TID as needed raynauds symptoms of feet 07/14/201410/11 Inactive Flonase 50 mcg/actuation nasal spray,suspension RxNorm: [id number] 2 SPRAYS IN EACH NOSTRIL DAILY 05/25/2014 08/22/2014 Inactive potassium chloride 20 mEq/15 mL oral liquid RxNorm: 682824 2 Tablespoon(s) PO daily 04/20/2014 04/21/2015 Inactive potassium chloride 10 % oral liquid RxNorm: 571136 2 Tablespoon(s) PO daily 04/20/2014 04/19/2014 Inactive potassium chloride 10 % oral liquid RxNorm: 121211 2 Tablespoon(s) PO daily 04/09/2014 04/19/2014 Inactive folic acid 1 mg tablet RxNorm: 168822 Tablet(s) PO TAKE ONE TABLET BY MOUTH EVERY DAY 02/15/2014 No Stop Date Active folic acid 1 mg tablet RxNorm: 681049 Tablet(s) PO TAKE ONE TABLET BY MOUTH EVERY DAY 02/15/2014 01/16/2015 Inactive folic acid 1 mg tablet RxNorm: 440934 1 Tablet(s) PO daily TAKE ONE TABLET BY MOUTH EVERY DAY 02/15/2014 02/14/2014 Inactive Flonase 50 mcg/actuation nasal spray,suspension RxNorm: 164294 1 [place] NASAL BID 01/12/2014 08/09/2014 Inactive topiramate 100 mg tablet RxNorm: 217193 1.5 Tablet(s) PO BID 08/09/2014 Inactive amoxicillin 500 mg capsule RxNorm: 643892 1 Capsule(s) PO TID 12/24/2013 12/30/2013 Inactive amoxicillin 500 mg capsule RxNorm: 852657 1 Capsule(s) PO TID 12/24/2013 12/23/2013 Inactive Pristiq 50 mg tablet,extended release RxNorm: 275752 1 Tablet(s) PO BID 12/01/2013 02/23/2015 Inactive Vitamin B-12 1,000 mcg/mL injection solution RxNorm: 949960 1 Milliliter(s) Inj QW 11/10/2013 11/09/2013 Inactive Vitamin B-12 1,000 mcg/mL injection solution RxNorm: 625190 1 Milliliter(s) Inj QW 11/10/2013 12/02/2014 Inactive Myrbetriq 25 mg tablet,extended release RxNorm: 8866147 1 Tablet(s) PO daily 10/20/2013 08/16/2014 Inactive fluconazole 150 mg tablet RxNorm: 418019 1 Tablet(s) PO daily 09/15/2013 09/19/2013 Inactive amoxicillin 875 mg-potassium clavulanate 125 mg tablet RxNorm: 356536 1 Tablet(s) PO BID 09/15/2013 09/24/2013 Inactive Pristiq 50 mg tablet,extended release RxNorm: 896675 1 Tablet(s) PO BID 07/30/2013 11/30/2013 Inactive Topamax 25 mg tablet RxNorm: 382355 4 Tablet(s) PO BID 201201/11/2014 Inactive vitamin B12 200mcg [place], Suspension RxNorm: 1 [place] PO daily 07/27/2013 12/25/2015 Inactive Flonase 50 mcg/actuation nasal spray,suspension RxNorm: 301456 2 [place] NASAL daily 06/09/2013 07/08/2013 Inactive Carafate 1 gram tablet RxNorm: 121810 1 Tablet(s) PO ac and hs 05/07/2013 05/06/2013 Inactive Carafate 1 gram tablet RxNorm: 712021 1 Tablet(s) PO ac and hs 05/07/2013 05/31/2014 Inactive potassium chloride 10 % Oral Liquid RxNorm: 365951 1 Tablespoon(s) PO daily 03/23/2013 04/08/2014 Inactive folic acid 1 mg tablet RxNorm: 415634 Tablet(s) PO TAKE ONE TABLET BY MOUTH EVERY DAY 01/29/2013 02/14/2014 Inactive naproxen sodium 550 mg tablet RxNorm: 606744 1 Tablet(s) PO BID 01/21/2013 10/26/2014 Inactive hydrocodone 5 mg-acetaminophen 500 mg tablet RxNorm: 318686 1 Tablet(s) PO Q8 PRN 12/25/2012 02/19/2017 Inactive folic acid 1 mg tablet RxNorm: 329100 1 Tablet(s) PO daily 01/28/2013 Inactive cyanocobalamin (vitamin B-12) 1,000 mcg/mL Injection RxNorm: 528595 1 Milliliter(s ) Inj 2 x month inject 1 mL every other week intramuscularly 11/03/2012 11/02/2012 Inactive please provide 25 gauge syringes as well. cyanocobalamin (vitamin B-12) 1,000 mcg/mL Injection RxNorm: 802086 Milliliter(s) Inj 11/03/2012 11/03/2012 Inactive cyanocobalamin (vitamin B-12) 1,000 mcg/mL Injection RxNorm: 637482 1 Milliliter(s ) Inj 2 x month inject 1 mL every other week intramuscularly 11/03/2012 12/25/2015 Inactive please provide 25 gauge syringes as well. cyanocobalamin (vitamin B-12) 1,000 mcg/mL Injection RxNorm: 209473 1 Milliliter(s ) Inj 10/20/2012 10/20/2012 Inactive Vitamin B-12 1,000 mcg/mL Injection RxNorm: 260236 1 Milliliter(s) Inj 09/11/2012 09/11/2012 Inactive Zithromax Z-Juanpablo 250 mg tablet RxNorm: 849176 Tablet(s) PO UD 12/24/2012 Inactive please give z juanpablo hydrochlorothiazide 25 mg tablet RxNorm: 800225 1/2 Tablet(s) PO daily 08/11/2012 No Stop Date Active Vitamin B-12 1,000 mcg/mL Injection RxNorm: 358629 Milliliter(s) Inj 08/11/2012 08/11/2012 Inactive Vitamin D2 50,000 unit capsule RxNorm: 1409143 Capsule(s) PO one weekly for 8 weeks then resume her daily dosing 07/21/2012 07/20/2012 Inactive Vitamin B-12 1,000 mcg/mL Injection RxNorm: 771205 Milliliter(s) Inj 07/21/2012 07/21/2012 Inactive Vitamin D2 50,000 unit capsule RxNorm: 0331923 Capsule(s) PO one weekly for 8 weeks then resume her daily dosing 07/21/2012 09/18/2012 Inactive Diflucan 150 mg tablet RxNorm: 640074 1 Tablet(s) PO daily 09/201107/12/2012 Inactive HyoMax-SR 0.375 mg tablet,extended release RxNorm: 3129413 Tablet(s) PO PRN No Start Date Active Maxalt-ELECTRON MICROPROBE OPERATOR 10 mg disintegrating tablet RxNorm: 274671 Tablet(s) PO PRN No Start Date Active Vitamin D3 2,000 unit tablet RxNorm: 504282 1 Tablet(s) PO daily No Start Date Active potassium chloride 20 mEq/15 mL oral liquid RxNorm: 061571 2 Tablespoon(s) PO daily No Start Date Active Zetia 10 mg tablet RxNorm: 254370 1 Tablet(s) PO QPM No Start Date Active metoprolol tartrate 50 mg tablet RxNorm: 212257 1 Tablet(s) PO BID No Start Date Active biotin 2,500 mcg tablet RxNorm: 391413 1 Tablet(s) PO daily No Start Date Active Zyrtec 10 mg tablet RxNorm: 5601318 1 Tablet(s) PO PRN No Start Date Active Praluent Pen 75 mg/mL subcutaneous pen injector RxNorm: 3615832 1 Milliliter(s) SQ Q 2 weeks No Start Date Active Fioricet oral RxNorm: 413411 oral No Start Date Active Cholestyramine Susp Light 4 gram Packet RxNorm: 051933 packet PO PRN No Start Date 08/29/2014 Inactive Pristiq 50 mg tablet,extended release RxNorm: 408663 1 Tablet(s) PO daily No Start Date 07/29/2013 Inactive Topamax 25 mg tablet RxNorm: 999350 3 Tablet(s) PO BID No Start Date 07/29/2013 Inactive pantoprazole 40 mg tablet,delayed release RxNorm: 269318 1 Tablet(s) PO daily No Start Date 07/07/2018 Inactive Tricor 145 mg tablet RxNorm: 519397 1 Tablet(s) PO daily No Start Date 12/24/2012 Inactive Zithromax Z-Juanpablo 250 mg tablet RxNorm: 825422 Tablet(s) PO UD No Start Date 08/11/2012 Inactive Fish Oil 1,000 mg capsule RxNorm: 1 Capsule(s) PO BID No Start Date 07/07/2018 Inactive Vitamin D3 2,000 unit capsule RxNorm: 332547 1 Capsule(s) PO daily No Start Date 12/25/2015 Inactive Vagifem 10 mcg vaginal tablet RxNorm: 251556 1-2 Tablet(s) VAG weekly No Start Date 06/10/2016 Inactive Gelnique 10 % (100 mg/gram) transdermal gel packet RxNorm: 596222 3% gel 3 pumps TD daily No Start Date 08/09/2014 Inactive Vitamin D3 5,000 unit tablet RxNorm: 235633 1 Tablet(s) PO daily No Start Date 06/10/2016 Inactive hydrochlorothiazide 25 mg tablet RxNorm: 956859 1 Tablet(s) PO daily No Start Date 08/10/2012 Inactive Flexeril 10 mg tablet RxNorm: 284520 Tablet(s) PO No Start Date 06/10/2016 Inactive 1 q am1/2 with dinner1 hs Valium 5 mg tablet RxNorm: 134112 1 Tablet(s) PO PRN No Start Date 06/26/2017 Inactive amlodipine 5 mg tablet RxNorm: 986942 1 Tablet(s) PO daily No Start Date 03/15/2014 Inactive Phenergan VC-Codeine 6.25 mg-5 mg-10 mg/5 mL syrup RxNorm: 553884 5 Milliliter(s) PO Q6 as needed cough No Start Date 2015 Inactive Zithromax Z-Juanpablo 250 mg tablet RxNorm: 956213 Tablet(s) PO UD No Start Date 07/30/2013 Inactive naproxen 500 mg tablet RxNorm: 185335 Tablet(s) PO BID PRN No Start Date 01/20/2013 Inactive Lovaza 1 gram capsule RxNorm: 118864 2 Capsule(s) PO BID No Start Date 03/04/2018 Inactive hydrocodone 5 mg-acetaminophen 500 mg tablet RxNorm: 865949 1 Tablet(s) PO Q8 PRN No Start Date 12/24/2012 Inactive biotin 1000 mg RxNorm : 2 PO No Start Date 06/11/2016 Inactive aspirin 81 mg tablet,delayed release RxNorm: 708515 1 Tablet(s) PO daily No Start Date 07/07/2018 Inactive Lomotil 2.5 mg-0.025 mg tablet RxNorm: 8420406 Tablet(s) PO PRN No Start Date 04/23/2016 Inactive Ditropan XL 5 mg tablet,extended release RxNorm: 987291 1 Tablet(s) PO daily No Start Date 06/09/2018 Inactive Antara 130 mg capsule RxNorm: 086224 1 Capsule(s) PO daily No Start Date 07/07/2018 Inactive folic acid 1 mg tablet RxNorm: 037412 1 Tablet(s) PO daily No Start Date 11/02/2012 Inactive amlodipine 10 mg tablet RxNorm: 906970 1 Tablet(s) PO daily No Start Date 08/05/2018 Inactive amitriptyline 25 mg tablet RxNorm: 218352 1 Tablet(s) PO QHS dr fonseca No Start Date 03/29/2016 Inactive Gelnique transdermal RxNorm: 166551 transdermal No Start Date 03/25/2016 Inactive Toprol XL 50 mg tablet,extended release RxNorm: 882202 1 Tablet(s) PO daily No Start Date 04/08/2017 Inactive potassium chloride 10 % Oral Liquid RxNorm: 948616 1 Tablespoon(s) PO daily No Start Date 03/22/2013 Inactive Lipitor 10 mg tablet RxNorm: 502888 1 Tablet(s) PO QHS No Start Date 12/24/2012 Inactive diltiazem 120 mg tablet RxNorm: 520746 1 Tablet(s) PO daily No Start Date 08/10/2012 Inactive Combivent Respimat 20 mcg-100 mcg/actuation solution for inhalation RxNorm: 1053118 1-2 Puff(s) INH Q4 PRN No Start Date 07/25/2017 Inactive Medication Administered Medication Codes Instructions Start Date Status ceftriaxone 1 gram solution for injection RxNorm: 5294532 11/11/2014 No longer Active cyanocobalamin (vitamin B-12) 1,000 mcg/mL Injection RxNorm : 877771 Milliliter 11/03/2012 No longer Active cyanocobalamin (vitamin B-12) 1,000 mcg/mL Injection RxNorm : 111661 1Milliliter 10/20/2012 No longer Active Vitamin B-12 1,000 mcg/mL Injection RxNorm: 656765 1Milliliter 09/11/2012 No longer Active Vitamin B-12 1,000 mcg/mL Injection RxNorm: 592684 Milliliter 08/11/2012 No longer Active Vitamin B-12 1,000 mcg/mL Injection RxNorm: 577494 Milliliter 07/21/2012 No longer Active Immunizations Vaccine Codes Date Status Influenza CVX: 141 06/05/2018 completed Influenza CVX: 141 06/19/2017 completed Tetanus, Diptheria, Pertussis CVX: 113 completed Tetanus/Diptheria CVX: 113 03/30/2015 completed Influenza CVX: 141 05/12/2012 completed Pneumococcal CVX: 33 06/11/2011 completed Assessments Condition Codes Effective Dates Gastro-esophageal reflux disease without esophagitis ICD-10 : K21.9 ICD-9: 530.81 12/11/2018 Diarrhea, unspecified ICD-10: R19.7 ICD-9: 787.91 12/11/2018 Epigastric pain ICD-10: R10.13 ICD-9: 789.06 12/11/2018 Generalized abdominal pain ICD-10: R10.84 ICD-9: 789.07 11/18/2018 Major depressive disorder, recurrent, moderate ICD-10: F33.1 ICD-9: 296.32 10/02/2018 Functional diarrhea ICD-10: K59.1 ICD-9: 787.91 10/02/2018 Generalized anxiety disorder ICD-10: F41.1 ICD-9: 300.00 10/02/2018 Essential (primary) hypertension ICD-10: I10 ICD-9: 401.1 10/02/2018 Other fatigue ICD-10: R53.83 ICD-9: 780.79 08/06/2018 Nontoxic multinodular goiter ICD-10: E04.2 ICD-9: 241.1 08/06/2018 Slow transit constipation ICD-10: K59.01 ICD-9: 564.01 08/06/2018 Encounter for screening mammogram for malignant neoplasm of breast ICD-10: Z12.31 ICD-9: V76.10 07/09/2018 Essential (primary) hypertension ICD-10: I10 ICD-9: 401.9 07/08/2018 Encounter for immunization ICD-10: Z23 ICD-9: V03.82 06/05/2018 Mixed hyperlipidemia ICD-10: E78.2 ICD-9: 272.2 02/11/2018 Encounter for other preprocedural examination ICD-10: Z01.818 ICD-9: V72.84 06/24/2017 Acute recurrent maxillary sinusitis ICD-10: J01.01 ICD-9: 461.0 06/24/2017 Encounter for immunization ICD-10: Z23 ICD-9: V03.9 06/19/2017 Acute recurrent frontal sinusitis ICD-10: J01.11 ICD-9: 461.1 05/22/2017 Type 2 diabetes mellitus without complications ICD-10: E11.9 ICD-9: 250.00 05/22/2017 Cough ICD-10: R05 ICD-9: 786.2 05/10/2017 Somnolence ICD-10: R40.0 ICD-9: 780.09 04/08/2017 Muscle weakness (generalized) ICD-10: M62.81 ICD-9: 729.89 04/08/2017 Snoring ICD-10: R06.83 ICD-9: 786.09 04/08/2017 Impaired fasting glucose ICD-10: R73.01 ICD-9: 790.29 02/20/2017 Vitamin deficiency, unspecified ICD-10: E56.9 ICD-9: 269.2 02/20/2017 Chronic migraine without aura, not intractable, without status migrainosus ICD-10: G43.709 ICD-9: 346.70 02/20/2017 Other specified polyneuropathies ICD-10: G62.89 ICD-9: 356.9 11/21/2016 Chronic pain syndrome ICD-10: G89.4 ICD-9: 338.4 11/21/2016 Toxic gastroenteritis and colitis ICD-10: K52.1 ICD-9: 558.2 06/11/2016 Left upper quadrant pain ICD-10: R10.12 ICD-9: 789.02 06/04/2016 Cellulitis of left toe ICD-10: L03.032 ICD-9: 681.10 04/10/2016 Functional diarrhea ICD-10: K59.1 ICD-9: 564.5 12/26/2015 Other seasonal allergic rhinitis ICD-10: J30.2 ICD-9: 477.9 11/02/2015 Urgency of urination ICD-10: R39.15 ICD-9: 788.63 09/13/2015 Acute laryngopharyngitis ICD-10: J06.0 ICD-9: 465.0 09/13/2015 Dysuria ICD-10: R30.0 ICD-9: 788.1 09/08/2015 Acute nasopharyngitis [common cold] ICD-10: J00 ICD-9: 460 09/07/2015 Pain in left lower leg ICD-10: M79.662 ICD-9: 729.5 09/07/2015 Cramp and spasm ICD-10: R25.2 ICD-9: 729.82 09/07/2015 Varicose veins of unspecified lower extremities with other complications ICD-10: I83.899 ICD-9: 454.9 08/16/2015 Other mixed anxiety disorders ICD-10: F41.3 ICD-9: 300.09 06/13/2015 CHRONIC PAIN SYNDROME ICD-9: 338.4 2014 ESSENTIAL HYPERTENSION ICD-9: 401.9 05/10 Need for Tdap vaccination ICD-9: V06.1 URINARY FREQUENCY ICD-9: 788.41 2014 Back pain ICD-9: 724.5 03/22/2015 DIABETES TYPE II ICD-9: 250.00 2014 Varicose vein ICD-9: 454.9 01/17/2015 HEADACHE ICD-9: 784.0 11/22/2014 Neck pain ICD-9: 723.1 11/22/2014 Vision changes ICD-9: 368.9 11/22/2014 Nausea ICD-9: 787.02 11/22/2014 Meningitis exposure ICD-9: V01.89 2014 Elevated blood sugar ICD-9: 790.29 2014 ALLERGIC RHINITIS ICD-9: 477.9 2014 Costochondritis ICD-9: 733.6 10/15/2014 Vitamin D deficiency ICD-9: 268.9 2014 Diarrhea ICD-9: 787.91 09/30/2014 Raynauds disease ICD-9: 443.0 07/14/2014 Chronic migraine ICD-9: 346.70 2013 Esophageal reflux ICD-9: 530.81 2013 OBESITY ICD-9: 278.00 06/23/2014 Hyponatremia ICD-9: 276.1 06/23/2014 Knee pain ICD-9: 719.46 01/12/2014 Fatigue ICD-9: 780.79 12/15/2013 Skin lesion ICD-9: 709.9 10/20/2013 ACUTE SINUSITIS ICD-9: 461.9 09/15/2013 Vitamin B12 deficiency ICD-9: 266.2 07/27 Peripheral neuropathy ICD-9: 356.9 2012 COUGH ICD-9: 786.2 06/09/2013 Dysphagia ICD-9: 787.20 04/20/2013 ABNORMALITY OF GAIT ICD-9: 781.2 2012 Breast pain ICD-9: 611.71 12/25/2012 ACUTE URI ICD-9: 465.9 10/20/2012 Weakness of both legs ICD-9: 729.89 07/10 Reason For Visit Reason For Visit Effective Dates Notes diarrhea 12/11/2018 diarrhea 11/18/2018 depression 10/02/2018 constipation 08/06/2018 depression 07/08/2018 hypertension 02/11/2018 hypertension 11/12/2017 hypertension 08/20/2017 pre-op/surgery consult 06/24/2017 vaccination against influenza 06/19/2017 hypertension 05/22/2017 sinus congestion 05/10/2017 fatigue 04/08/2017 hypertension 02/20/2017 abdominal pain 11/21/2016 abdominal pain 08/29/2016 abdominal pain 07/05/2016 hypertension 06/11/2016 diarrhea 06/04/2016 ingrown toenail 04/10/2016 dizziness 03/26/2016 abnormal test results 01/23/2016 hypertension 12/26/2015 cough 11/02/2015 lower leg pain 09/13/2015 lower leg pain 09/07/2015 bone pain 08/16/2015 depression 06/13/2015 back pain 05/10/2015 under right axilla area- swollen and tender to touch. urinary frequency 03/22/2015 pain 01/17/2015 pain 11/22/2014 diabetes mellitus 10/27/2014 headache 10/15/2014 hypertension 09/30/2014 nausea 07/14/2014 nausea 06/23/2014 nausea 04/09/2014 hypertension 03/16/2014 hypertension 01/12/2014 hypertension 12/15/2013 Raynaud's phenomenon 10/20/2013 sinus pain 09/15/2013 _ 07/27/2013 cough 06/09/2013 headache 04/20/2013 cough 03/23/2013 gait abnormality 01/21/2013 breast complaint 12/25/2012 hypertension 10/20/2012 hypertension 08/11/2012 hypertension 07/10/2012 Results Observation Observation Code Item Item Code Result Date Stool Culture 145157 Salmonella/Shigella Screen Final report 11/24/2018 Stool Culture [id number] RESULT 1 Comment 11/24/2018 Stool Culture [id number] Campylobacter Culture Final report 11/24/2018 Stool Culture [id number] E coli Shiga Toxin EIA Negative 2018 Clostridium Diff Tox A/B Ftn886 Cdiff Negative 11/19/2018 Comp Metabolic Tck154 NA 137 mEq/L 11/18/2018 Comp Metabolic Ngw024 K 3.9 mEq/L 11/18/2018 Comp Metabolic Yoh004 CL 105 mEq/L 11/18/2018 Comp Metabolic Qjh141 CO2 26.0 mEq/L 11/18/2018 Comp Metabolic Rfh116 ANION GAP 10 11/18/2018 Comp Metabolic Eht500 GLUCOSE 98 mg/dL 11/18/2018 Comp Metabolic Qis767 Creat 0.6 mg/dL 11/18/2018 Comp Metabolic Usq800 eGFR 107 ml/min/1.73m2 11/18/2018 Comp Metabolic Paq225 BUN 16 mg/dL 11/18/2018 Comp Metabolic Eow903 B/C Ratio 26.2 Ratio 11/18/2018 Comp Metabolic Kog279 CALCIUM 9.5 mg/dL 11/18/2018 Comp Metabolic Ram858 ALK PHOS 77 U/L 11/18/2018 Comp Metabolic Kur857 AST(SGOT) 20 U/L 11/18/2018 Comp Metabolic Csp710 ALT(SGPT) 26 U/L 11/18/2018 Comp Metabolic Qjp867 BILI T 0.4 mg/dL 11/18/2018 Comp Metabolic Ewe972 ALBUMIN 4.4 g/dL 11/18/2018 Comp Metabolic Zvj520 TPRO 6.9 g/dL 11/18/2018 Comp Metabolic Gwx829 GLOB 2.6 g/dL 11/18/2018 Comp Metabolic Pii875 A/G Ratio 1.7 Ratio 11/18/2018 Comp Metabolic Ujy775 Osmo 275 mOsmo 11/18/2018 Cbc With Differential Ord2 WBC 7.02 K/ul 11/18/2018 Cbc With Differential Ord2 RBC 4.86 M/ul 11/18/2018 Cbc With Differential Ord2 HGB 14.2 g/dl 11/18/2018 Cbc With Differential Ord2 HCT 42.8 % 11/18/2018 Cbc With Differential Ord2 Neut% 64.5 % 11/18/2018 Cbc With Differential Ord2 MCV 88.1 fl 11/18/2018 Cbc With Differential Ord2 Lymph% 25.5 % 11/18/2018 Cbc With Differential Ord2 MCH 29.2 pg 11/18/2018 Cbc With Differential Ord2 [place]% 7.7 % 11/18/2018 Cbc With Differential Ord2 MCHC 33.2 pg 11/18/2018 Cbc With Differential Ord2 Eos% 2.0 % 11/18/2018 Cbc With Differential Ord2 PLT 244 K/ul 11/18/2018 Cbc With Differential Ord2 Baso% 0.3 % 11/18/2018 Cbc With Differential Ord2 RDW 14.7 % 11/18/2018 Cbc With Differential Ord2 Neut ABS# 4.53 K/ul 11/18/2018 Cbc With Differential Ord2 Lymph ABS# 1.79 K/ul 11/18/2018 Cbc With Differential Ord2 [place] ABS# 0.5 K/ul 11/18/2018 Cbc With Differential Ord2 Eos ABS# 0.1 K/ul 11/18/2018 Cbc With Differential Ord2 Baso ABS# 0.0 K/ul 11/18/2018 Hepatic Eba409 ALBUMIN 4.5 g/dL 08/11/2018 Hepatic Ozo075 TPRO 7.3 g/dL 08/11/2018 Hepatic Oyo165 GLOB 2.8 g/dL 08/11/2018 Hepatic Tel670 A/G Ratio 1.6 Ratio 08/11/2018 Hepatic Tvj543 ALK PHOS 89 U/L 08/11/2018 Hepatic Ali697 ALT(SGPT) 31 U/L 08/11/2018 Hepatic Xew213 AST(SGOT) 20 U/L 08/11/2018 Hepatic Xpo598 BILI T 0.4 mg/dL 08/11/2018 Hepatic Wnv321 BILI D 0.1 mg/dL 08/11/2018 Hepatic Roh744 BILI I 0.3 mg/dL 08/11/2018 Lipid Ord30 CHOL 198 mg/dL 08/11/2018 Lipid Ord30 HDL 58.0 mg/dl 08/11/2018 Lipid Ord30 TRIG 296 mg/dL 08/11/2018 Lipid Ord30 LDL 81 mg/dL 08/11/2018 Lipid Ord30 C/HDL 3.4 Ratio 08/11/2018 Lipid Ord30 CHOL 202 mg/dL 05/01/2018 Lipid Ord30 HDL 54.0 mg/dl 05/01/2018 Lipid Ord30 TRIG 359 mg/dL 05/01/2018 Lipid Ord30 LDL 76 mg/dL 05/01/2018 Lipid Ord30 C/HDL 3.7 Ratio 05/01/2018 Comp Metabolic Qji711 NA 140 mEq/L 05/01/2018 Comp Metabolic Zwn066 K 4.1 mEq/L 05/01/2018 Comp Metabolic Bal188 CL 107 mEq/L 05/01/2018 Comp Metabolic Grg276 CO2 25.0 mEq/L 05/01/2018 Comp Metabolic Vlr420 ANION GAP 12 05/01/2018 Comp Metabolic Zbi515 GLUCOSE 98 mg/dL 05/01/2018 Comp Metabolic Zxx119 Creat 0.7 mg/dL 05/01/2018 Comp Metabolic Dlr740 eGFR 96 ml/min/1.73m2 05/01/2018 Comp Metabolic Ink851 BUN 14 mg/dL 05/01/2018 Comp Metabolic Lhp425 B/C Ratio 20.9 Ratio 05/01/2018 Comp Metabolic Xhf552 CALCIUM 9.5 mg/dL 05/01/2018 Comp Metabolic Yee792 ALK PHOS 74 U/L 05/01/2018 Comp Metabolic Unw896 AST(SGOT) 19 U/L 05/01/2018 Comp Metabolic Fok759 ALT(SGPT) 29 U/L 05/01/2018 Comp Metabolic Fie889 BILI T 0.3 mg/dL 05/01/2018 Comp Metabolic Ppf604 ALBUMIN 4.3 g/dL 05/01/2018 Comp Metabolic Hwm868 TPRO 6.7 g/dL 05/01/2018 Comp Metabolic Ugv463 GLOB 2.4 g/dL 05/01/2018 Comp Metabolic Wvf077 A/G Ratio 1.8 Ratio 05/01/2018 Comp Metabolic Yqo209 Osmo 280 mOsmo 05/01/2018 Free T4 Bwa889 FREE T4 0.95 ng/dL 02/11/2018 Tsh Ord6 TSH (3rd IS) 2.16 uIU/mL 02/11/2018 Free T4 Ito278 FREE T4 0.81 ng/dL 11/12/2017 Tsh Ord6 TSH (3rd IS) 1.66 uIU/mL 11/12/2017 Tsh Ord6 hTSH II 1.45 uIU/mL 08/20/2017 Free T4 Yxg865 FREE T4 0.80 ng/dL 08/20/2017 Hepatic Tcq997 ALBUMIN 4.4 g/dL 08/20/2017 Hepatic Cjw668 TPRO 6.6 g/dL 08/20/2017 Hepatic Tgl294 GLOB 2.2 g/dL 08/20/2017 Hepatic Ptp705 A/G Ratio 2.0 Ratio 08/20/2017 Hepatic Tnr050 ALK PHOS 50 U/L 08/20/2017 Hepatic Kan339 ALT(SGPT) 20 U/L 08/20/2017 Hepatic Zpb449 AST(SGOT) 20 U/L 08/20/2017 Hepatic Kjx541 BILI T 0.3 mg/dL 08/20/2017 Hepatic Pph030 BILI D 0.1 mg/dL 08/20/2017 Hepatic Dbf294 BILI I 0.2 mg/dL 08/20/2017 Lipid Ord30 CHOL 173 mg/dL 08/20/2017 Lipid Ord30 HDL 64.0 mg/dl 08/20/2017 Lipid Ord30 TRIG 205 mg/dL 08/20/2017 Lipid Ord30 LDL 68 mg/dL 08/20/2017 Lipid Ord30 C/HDL 2.7 Ratio 08/20/2017 Cbc With Differential Ord2 WBC 7.27 K/ul 02/21/2017 Cbc With Differential Ord2 RBC 4.66 M/ul 02/21/2017 Cbc With Differential Ord2 HGB 14.1 g/dl 02/21/2017 Cbc With Differential Ord2 HCT 42.7 % 02/21/2017 Cbc With Differential Ord2 Neut% 65.2 % 02/21/2017 Cbc With Differential Ord2 MCV 91.6 fl 02/21/2017 Cbc With Differential Ord2 Lymph% 25.0 % 02/21/2017 Cbc With Differential Ord2 MCH 30.3 pg 02/21/2017 Cbc With Differential Ord2 [place]% 6.9 % 02/21/2017 Cbc With Differential Ord2 MCHC 33.0 pg 02/21/2017 Cbc With Differential Ord2 Eos% 2.6 % 02/21/2017 Cbc With Differential Ord2 PLT 296 K/ul 02/21/2017 Cbc With Differential Ord2 Baso% 0.3 % 02/21/2017 Cbc With Differential Ord2 RDW 13.9 % 02/21/2017 Cbc With Differential Ord2 Neut ABS# 4.74 K/ul 02/21/2017 Cbc With Differential Ord2 Lymph ABS# 1.82 K/ul 02/21/2017 Cbc With Differential Ord2 [place] ABS# 0.5 K/ul 02/21/2017 Cbc With Differential Ord2 Eos ABS# 0.2 K/ul 02/21/2017 Cbc With Differential Ord2 Baso ABS# 0.0 K/ul 02/21/2017 %Hba1C Axy571 % HbA1c 89738-9 5.8 % 02/21/2017 %Hba1C Isr485 Gluc Ave 120 mg/dL 02/21/2017 Tsh Ord6 hTSH II 1.90 uIU/mL 02/21/2017 Vitamin D 25 Oh Oxj2828 VITAMIN D, 25 HYDROXY 42.82 ng/mL Comp Metabolic Pzl266 NA 141 mEq/L 02/21/2017 Comp Metabolic Khb862 K 4.1 mEq/L 02/21/2017 Comp Metabolic Fwq907 CL 107 mEq/L 02/21/2017 Comp Metabolic Txh781 CO2 25.0 mEq/L 02/21/2017 Comp Metabolic Ojr256 ANION GAP 13 02/21/2017 Comp Metabolic Ivi922 GLUCOSE 87 mg/dL 02/21/2017 Comp Metabolic Tqy812 Creat 0.8 mg/dL 02/21/2017 Comp Metabolic Avj447 eGFR 80 ml/min/1.73m2 02/21/2017 Comp Metabolic Ckr312 BUN 20 mg/dL 02/21/2017 Comp Metabolic Sef398 B/C Ratio 25.3 Ratio 02/21/2017 Comp Metabolic Buq497 CALCIUM 9.5 mg/dL 02/21/2017 Comp Metabolic Xzo971 ALK PHOS 61 U/L 02/21/2017 Comp Metabolic Ecs724 AST(SGOT) 16 U/L 02/21/2017 Comp Metabolic Yjx412 ALT(SGPT) 19 U/L 02/21/2017 Comp Metabolic Xsj915 BILI T 0.3 mg/dL 02/21/2017 Comp Metabolic Hyd250 ALBUMIN 4.4 g/dL 02/21/2017 Comp Metabolic Rnu765 TPRO 7.0 g/dL 02/21/2017 Comp Metabolic Ywq590 GLOB 2.6 g/dL 02/21/2017 Comp Metabolic Hra957 A/G Ratio 1.7 Ratio 02/21/2017 Comp Metabolic Era226 Osmo 283 mOsmo 02/21/2017 Lipid Ord30 CHOL 185 mg/dL 02/21/2017 Lipid Ord30 HDL 74.0 mg/dl 02/21/2017 Lipid Ord30 TRIG 148 mg/dL 02/21/2017 Lipid Ord30 LDL 81 mg/dL 02/21/2017 Lipid Ord30 C/HDL 2.5 Ratio 02/21/2017 Hepatic Sor304 ALBUMIN 4.9 g/dL 08/21/2016 Hepatic Ojc377 TPRO 7.3 g/dL 08/21/2016 Hepatic Oir459 GLOB 2.5 g/dL 08/21/2016 Hepatic Qhs913 A/G Ratio 2.0 Ratio 08/21/2016 Hepatic Ewu696 ALK PHOS 76 U/L 08/21/2016 Hepatic Gye494 ALT(SGPT) 29 U/L 08/21/2016 Hepatic Orb179 AST(SGOT) 22 U/L 08/21/2016 Hepatic Cmu506 BILI T 0.4 mg/dL 08/21/2016 Hepatic Nmk109 BILI D 0.1 mg/dL 08/21/2016 Hepatic Ukt326 BILI I 0.3 mg/dL 08/21/2016 Lipid Ord30 CHOL 302 mg/dL 08/21/2016 Lipid Ord30 HDL 69.0 mg/dl 08/21/2016 Lipid Ord30 TRIG 223 mg/dL 08/21/2016 Lipid Ord30 LDL 188 mg/dL 08/21/2016 Lipid Ord30 C/HDL 4.4 Ratio 08/21/2016 Lipase Xem051 LIPASE 14 U/L 06/04/2016 Cbc With Differential Ord2 WBC 6.11 K/ul 06/04/2016 Cbc With Differential Ord2 RBC 4.44 M/ul 06/04/2016 Cbc With Differential Ord2 HGB 13.3 g/dl 06/04/2016 Cbc With Differential Ord2 HCT 40.7 % 06/04/2016 Cbc With Differential Ord2 Neut% 67.0 % 06/04/2016 Cbc With Differential Ord2 MCV 91.7 fl 06/04/2016 Cbc With Differential Ord2 Lymph% 24.5 % 06/04/2016 Cbc With Differential Ord2 MCH 30.0 pg 06/04/2016 Cbc With Differential Ord2 [place]% 6.5 % 06/04/2016 Cbc With Differential Ord2 MCHC 32.7 pg 06/04/2016 Cbc With Differential Ord2 Eos% 1.8 % 06/04/2016 Cbc With Differential Ord2 PLT 315 K/ul 06/04/2016 Cbc With Differential Ord2 Baso% 0.2 % 06/04/2016 Cbc With Differential Ord2 RDW 13.9 % 06/04/2016 Cbc With Differential Ord2 Neut ABS# 4.09 K/ul 06/04/2016 Cbc With Differential Ord2 Lymph ABS# 1.50 K/ul 06/04/2016 Cbc With Differential Ord2 [place] ABS# 0.4 K/ul 06/04/2016 Cbc With Differential Ord2 Eos ABS# 0.1 K/ul 06/04/2016 Cbc With Differential Ord2 Baso ABS# 0.0 K/ul 06/04/2016 Comp Metabolic Bpr874 NA 135 mEq/L 06/04/2016 Comp Metabolic Jqn435 K 3.8 mEq/L 06/04/2016 Comp Metabolic Qoz080 CL 101 mEq/L 06/04/2016 Comp Metabolic Maa594 CO2 26.0 mEq/L 06/04/2016 Comp Metabolic Wwz007 ANION GAP 12 06/04/2016 Comp Metabolic Mta551 GLUCOSE 91 mg/dL 06/04/2016 Comp Metabolic Kxt190 Creat 0.8 mg/dL 06/04/2016 Comp Metabolic Nvk574 eGFR 74 ml/min/1.73m2 06/04/2016 Comp Metabolic Tjl071 BUN 16 mg/dL 06/04/2016 Comp Metabolic Vzq751 B/C Ratio 19.0 Ratio 06/04/2016 Comp Metabolic Hza883 CALCIUM 10.0 mg/dL 06/04/2016 Comp Metabolic Qvg419 ALK PHOS 76 U/L 06/04/2016 Comp Metabolic Yxl656 AST(SGOT) 20 U/L 06/04/2016 Comp Metabolic Ali957 ALT(SGPT) 24 U/L 06/04/2016 Comp Metabolic Wpz054 BILI T 0.3 mg/dL 06/04/2016 Comp Metabolic Zsq370 ALBUMIN 4.6 g/dL 06/04/2016 Comp Metabolic Wcu574 TPRO 6.9 g/dL 06/04/2016 Comp Metabolic Kmw867 GLOB 2.3 g/dL 06/04/2016 Comp Metabolic Tfc333 A/G Ratio 2.0 Ratio 06/04/2016 Comp Metabolic Lia838 Osmo 271 mOsmo 06/04/2016 Amylase Ord34 AMYLASE 31 U/L 06/04/2016 Hepatic Ubz999 ALBUMIN 4.3 g/dL 2016 Hepatic Bnk516 TPRO 6.7 g/dL 2016 Hepatic Aah003 GLOB 2.4 g/dL 2016 Hepatic Ygv644 A/G Ratio 1.8 Ratio 2016 Hepatic Cci037 ALK PHOS 50 U/L 2016 Hepatic Igm478 ALT(SGPT) 20 U/L 2016 Hepatic Hri449 AST(SGOT) 18 U/L 2016 Hepatic Gpm371 BILI T 0.4 mg/dL 2016 Hepatic Zbe558 BILI D 0.1 mg/dL 2016 Hepatic Asi925 BILI I 0.3 mg/dL 2016 Lipid Ord30 CHOL 245 mg/dL 2016 Lipid Ord30 HDL 62.0 mg/dl 2016 Lipid Ord30 TRIG 140 mg/dL 2016 Lipid Ord30 LDL 155 mg/dL 2016 Lipid Ord30 C/HDL 4.0 Ratio 2016 Urine Culture Ucult Preliminary No Growth Day 1 09/15/2015 Urine Culture Ucult Complete No Growth Day 2 09/15/2015 Magnesium Ord90 Mag 1.9 mg/dL 09/07/2015 Comp Metabolic Etx693 NA 139 mEq/L 09/07/2015 Comp Metabolic Zlr652 K 4.4 mEq/L 09/07/2015 Comp Metabolic Etb214 CL 107 mEq/L 09/07/2015 Comp Metabolic Csq900 CO2 24.0 mEq/L 09/07/2015 Comp Metabolic Cgy521 ANION GAP 12 09/07/2015 Comp Metabolic Rqe607 GLUCOSE 91 mg/dL 09/07/2015 Comp Metabolic Ezo146 Creat 1.0 mg/dL 09/07/2015 Comp Metabolic Qpf614 eGFR 64 ml/min/1.73m2 09/07/2015 Comp Metabolic Lsn404 BUN 31 mg/dL 09/07/2015 Comp Metabolic Rgn922 B/C Ratio 32.3 Ratio 09/07/2015 Comp Metabolic Ryp018 CALCIUM 9.7 mg/dL 09/07/2015 Comp Metabolic Uxg566 ALK PHOS 56 U/L 09/07/2015 Comp Metabolic Fkf966 AST(SGOT) 29 U/L 09/07/2015 Comp Metabolic Qea546 ALT(SGPT) 34 U/L 09/07/2015 Comp Metabolic Mhm351 BILI T 0.3 mg/dL 09/07/2015 Comp Metabolic Ksr509 ALBUMIN 4.6 g/dL 09/07/2015 Comp Metabolic Uby739 TPRO 7.0 g/dL 09/07/2015 Comp Metabolic Aif424 GLOB 2.4 g/dL 09/07/2015 Comp Metabolic Swg017 A/G Ratio 1.9 Ratio 09/07/2015 Comp Metabolic Mpw283 Osmo 284 mOsmo 09/07/2015 Bili D Ord93 BILI D 0.1 mg/dL 09/07/2015 Bili D Ord93 BILI I 0.2 mg/dL 09/07/2015 Lipid Ord30 CHOL 243 mg/dL 09/07/2015 Lipid Ord30 HDL 75.0 mg/dl 09/07/2015 Lipid Ord30 TRIG 161 mg/dL 09/07/2015 Lipid Ord30 LDL 136 mg/dL 09/07/2015 Lipid Ord30 C/HDL 3.2 Ratio 09/07/2015 Tsh Ord6 hTSH II 2.53 uIU/mL 06/13/2015 Comp Metabolic Gpc229 NA 138 mEq/L 06/13/2015 Comp Metabolic Prw413 K 4.0 mEq/L 06/13/2015 Comp Metabolic Fum439 CL 104 mEq/L 06/13/2015 Comp Metabolic Gnd346 CO2 26.0 mEq/L 06/13/2015 Comp Metabolic Pzu473 ANION GAP 12 06/13/2015 Comp Metabolic Bwe568 GLUCOSE 86 mg/dL 06/13/2015 Comp Metabolic Suu147 Creat 0.9 mg/dL 06/13/2015 Comp Metabolic Ehg123 eGFR 71 ml/min/1.73m2 06/13/2015 Comp Metabolic Gcc691 BUN 18 mg/dL 06/13/2015 Comp Metabolic Yzc626 B/C Ratio 20.5 Ratio 06/13/2015 Comp Metabolic Jpp469 CALCIUM 10.1 mg/dL 06/13/2015 Comp Metabolic Qdm419 ALK PHOS 52 U/L 06/13/2015 Comp Metabolic Vqk149 AST(SGOT) 18 U/L 06/13/2015 Comp Metabolic Ked679 ALT(SGPT) 21 U/L 06/13/2015 Comp Metabolic Khx318 BILI T 0.3 mg/dL 06/13/2015 Comp Metabolic Cxs055 ALBUMIN 4.7 g/dL 06/13/2015 Comp Metabolic Xpd626 TPRO 6.9 g/dL 06/13/2015 Comp Metabolic Nrl537 GLOB 2.2 g/dL 06/13/2015 Comp Metabolic Lnx308 A/G Ratio 2.1 Ratio 06/13/2015 Comp Metabolic She799 Osmo 277 mOsmo 06/13/2015 %Hba1C Moh247 % HbA1c 24455-7 5.7 % 06/13/2015 %Hba1C Xut343 Gluc Ave 117 mg/dL 06/13/2015 Cbc With Differential Ord2 WBC 5.7 K/uL 06/13/2015 Cbc With Differential Ord2 LYM 1.5 K/uL 06/13/2015 Cbc With Differential Ord2 LYM% 26.0 % 06/13/2015 Cbc With Differential Ord2 NEUT/GRAN 3.9 K/uL 06/13/2015 Cbc With Differential Ord2 NEUT/GRAN % 68.6 % 06/13/2015 Cbc With Differential Ord2 MID 0.3 K/uL 06/13/2015 Cbc With Differential Ord2 MID% 5.4 % 06/13/2015 Cbc With Differential Ord2 RBC 4.34 M/uL 06/13/2015 Cbc With Differential Ord2 HGB 12.7 g/dL 06/13/2015 Cbc With Differential Ord2 HCT 40.4 % 06/13/2015 Cbc With Differential Ord2 MCV 93 fL 06/13/2015 Cbc With Differential Ord2 MCH 29 pg 06/13/2015 Cbc With Differential Ord2 MCHC 31 g/dL 06/13/2015 Cbc With Differential Ord2 PLT 279 K/uL 06/13/2015 Cbc With Differential Ord2 RDW 14.7 % 06/13/2015 Vitamin D 25 Oh Ojh1716 VITAMIN D, 25 HYDROXY 41.85 ng/mL Cbc With Differential Ord2 WBC 6.1 K/uL 04/18/2015 Cbc With Differential Ord2 LYM 1.7 K/uL 04/18/2015 Cbc With Differential Ord2 LYM% 28.6 % 04/18/2015 Cbc With Differential Ord2 NEUT/GRAN 3.9 K/uL 04/18/2015 Cbc With Differential Ord2 NEUT/GRAN % 64.5 % 04/18/2015 Cbc With Differential Ord2 MID 0.4 K/uL 04/18/2015 Cbc With Differential Ord2 MID% 6.9 % 04/18/2015 Cbc With Differential Ord2 RBC 4.29 M/uL 04/18/2015 Cbc With Differential Ord2 HGB 12.9 g/dL 04/18/2015 Cbc With Differential Ord2 HCT 38.5 % 04/18/2015 Cbc With Differential Ord2 MCV 90 fL 04/18/2015 Cbc With Differential Ord2 MCH 30 pg 04/18/2015 Cbc With Differential Ord2 MCHC 34 g/dL 04/18/2015 Cbc With Differential Ord2 PLT 268 K/uL 04/18/2015 Cbc With Differential Ord2 RDW 14.5 % 04/18/2015 Comp Metabolic Ezb607 NA 137 mEq/L 04/18/2015 Comp Metabolic Lvn002 K 4.0 mEq/L 04/18/2015 Comp Metabolic Mpo034 CL 105 mEq/L 04/18/2015 Comp Metabolic Uhq168 CO2 23.0 mEq/L 04/18/2015 Comp Metabolic Hhu617 ANION GAP 13 04/18/2015 Comp Metabolic Mcy206 GLUCOSE 73 mg/dL 04/18/2015 Comp Metabolic Plv294 Creat 0.9 mg/dL 04/18/2015 Comp Metabolic Tti766 eGFR 72 ml/min/1.73m2 04/18/2015 Comp Metabolic Bzt108 BUN 17 mg/dL 04/18/2015 Comp Metabolic Zgq385 B/C Ratio 19.5 Ratio 04/18/2015 Comp Metabolic Hbx137 CALCIUM 9.7 mg/dL 04/18/2015 Comp Metabolic Nji963 ALK PHOS 55 U/L 04/18/2015 Comp Metabolic Maf734 AST(SGOT) 28 U/L 04/18/2015 Comp Metabolic Own113 ALT(SGPT) 27 U/L 04/18/2015 Comp Metabolic Dci230 BILI T 0.3 mg/dL 04/18/2015 Comp Metabolic Uis729 ALBUMIN 4.5 g/dL 04/18/2015 Comp Metabolic Nmz373 TPRO 7.0 g/dL 04/18/2015 Comp Metabolic Wqx396 GLOB 2.5 g/dL 04/18/2015 Comp Metabolic Mrr494 A/G Ratio 1.8 Ratio 04/18/2015 Comp Metabolic Jpr993 Osmo 274 mOsmo 04/18/2015 Cbc With Differential Ord2 WBC 7.9 K/uL 03/22/2015 Cbc With Differential Ord2 LYM 2.2 K/uL 03/22/2015 Cbc With Differential Ord2 LYM% 27.7 % 03/22/2015 Cbc With Differential Ord2 NEUT/GRAN 5.2 K/uL 03/22/2015 Cbc With Differential Ord2 NEUT/GRAN % 65.2 % 03/22/2015 Cbc With Differential Ord2 MID 0.6 K/uL 03/22/2015 Cbc With Differential Ord2 MID% 7.1 % 03/22/2015 Cbc With Differential Ord2 RBC 4.56 M/uL 03/22/2015 Cbc With Differential Ord2 HGB 13.4 g/dL 03/22/2015 Cbc With Differential Ord2 HCT 41.0 % 03/22/2015 Cbc With Differential Ord2 MCV 90 fL 03/22/2015 Cbc With Differential Ord2 MCH 29 pg 03/22/2015 Cbc With Differential Ord2 MCHC 33 g/dL 03/22/2015 Cbc With Differential Ord2 PLT 301 K/uL 03/22/2015 Cbc With Differential Ord2 RDW 15.0 % 03/22/2015 Comp Metabolic Qqv201 NA 136 mEq/L 03/22/2015 Comp Metabolic Gcp944 K 4.1 mEq/L 03/22/2015 Comp Metabolic Rbs934 CL 102 mEq/L 03/22/2015 Comp Metabolic Qgg073 CO2 26.0 mEq/L 03/22/2015 Comp Metabolic Rpv422 ANION GAP 12 03/22/2015 Comp Metabolic Dyx423 GLUCOSE 82 mg/dL 03/22/2015 Comp Metabolic Tuc207 Creat 0.9 mg/dL 03/22/2015 Comp Metabolic Etk970 eGFR 69 ml/min/1.73m2 03/22/2015 Comp Metabolic Ltp334 BUN 30 mg/dL 03/22/2015 Comp Metabolic Vsq924 B/C Ratio 33.3 Ratio 03/22/2015 Comp Metabolic Cja001 CALCIUM 10.3 mg/dL 03/22/2015 Comp Metabolic Ucz190 ALK PHOS 56 U/L 03/22/2015 Comp Metabolic Ieq808 AST(SGOT) 17 U/L 03/22/2015 Comp Metabolic Tpx124 ALT(SGPT) 17 U/L 03/22/2015 Comp Metabolic Avc222 BILI T 0.3 mg/dL 03/22/2015 Comp Metabolic Chl259 ALBUMIN 4.7 g/dL 03/22/2015 Comp Metabolic Msp053 TPRO 7.2 g/dL 03/22/2015 Comp Metabolic Loc842 GLOB 2.5 g/dL 03/22/2015 Comp Metabolic Xtu984 A/G Ratio 1.9 Ratio 03/22/2015 Comp Metabolic Utw781 Osmo 277 mOsmo 03/22/2015 FREE T4 2557458 FREE T4 1.24 NG/DL 10/18/2014 CHEM 14 4092789 AST 14 U/L 10/15/2014 CHEM 14 3452839 ALT 15 IU/L 10/15/2014 CHEM 14 5950451 BUN 23 MG/DL 10/15/2014 CHEM 14 20280313 ALBUMIN 4.8 GM/DL 10/15/2014 CHEM 14 8285123 CHLORIDE 105 MMOL/L 10/15/2014 CHEM 14 0566558 BILI TOT 0.3 MG/DL 10/15/2014 CHEM 14 3115048 ALK PHOS 60 U/L 10/15/2014 CHEM 14 9516483 SODIUM 140 MMOL/L 10/15/2014 CHEM 14 3450139 CREATININE 0.89 MG/DL 10/15/2014 CHEM 14 8149893 CALCIUM 10.0 MG/DL 10/15/2014 CHEM 14 8295231 POTASSIUM 3.7 MMOL/L 10/15/2014 CHEM 14 8911964 PROT TOT 7.2 GM/DL 10/15/2014 CHEM 14 5970559 GLUCOSE 97 MG/DL 10/15/2014 CHEM 14 4080797 BICARB 25 MMOL/L 10/15/2014 CHEM 14 3147072 ANION GAP 10 MEQ/L 10/15/2014 CBC 7634508 WBC 6.7 10e9/L 10/15/2014 CBC 1379188 RBC 4.49 10e12/L 10/15/2014 CBC 0880218 HGB 13.4 g/dL 10/15/2014 CBC 8888310 HCT DET 40.2 % 10/15/2014 CBC 3036542 MCV 89.5 fL 10/15/2014 CBC 1763130 MCH 29.8 pg 10/15/2014 CBC 0456488 MCHC 33.3 g/dL 10/15/2014 CBC 4280800 PLT 311 10e9/L 10/15/2014 CBC 7555524 MPV 10.7 fL 10/15/2014 CBC 5205250 BESSY % 63.6 % 10/15/2014 CBC 4271417 LY % 26.7 % 10/15/2014 CBC 5111229 MON % 6.6 % 10/15/2014 CBC 4673105 EOS % 2.8 % 10/15/2014 CBC 6023013 BASO % 0.3 % 10/15/2014 CBC 4450490 RDW 13.4 % 10/15/2014 CBC 7023665 ABS BESSY 4.26 10e9/L 10/15/2014 CBC 7005753 ABS LYMPH 1.79 10e9/L 10/15/2014 CBC 5338687 ABS MONO 0.44 10e9/L 10/15/2014 CBC 0363327 ABS EOS 0.19 10e9/L 10/15/2014 CBC 5632759 ABS BASO 0.02 10e9/L 10/15/2014 CBC 0379450 RDW-SD 43.2 fL 10/15/2014 A1C HPLC 3879320 A1C HPLC 35105-2 5.7 % 10/15/2014 TSH 8811102 TSH 4.083 uIU/ML 10/15/2014 GFR CALC 6699872 GFR AA >60 ML/MIN 10/15/2014 GFR CALC 0747350 GFR NON-AA >60 ML/MIN 10/15/2014 VIT D TOTL 1575856 VIT D TOTL 36 NG/ML 10/15/2014 GFR CALC 2818049 GFR AA >60 ML/MIN 06/23/2014 GFR CALC 0856674 GFR NON-AA >60 ML/MIN 06/23/2014 CHEM 14 5091377 AST 21 U/L 06/23/2014 CHEM 14 9721806 ALT 24 IU/L 06/23/2014 CHEM 14 8764603 BUN 18 MG/DL 06/23/2014 CHEM 14 6680957 ALBUMIN 4.7 GM/DL 06/23/2014 CHEM 14 3055031 CHLORIDE 109 MMOL/L 06/23/2014 CHEM 14 3562444 BILI TOT 0.3 MG/DL 06/23/2014 CHEM 14 3605542 ALK PHOS 53 U/L 06/23/2014 CHEM 14 2971701 SODIUM 140 MMOL/L 06/23/2014 CHEM 14 8614530 CREATININE 0.86 MG/DL 06/23/2014 CHEM 14 7611023 CALCIUM 10.2 MG/DL 06/23/2014 CHEM 14 7663850 POTASSIUM 3.9 MMOL/L 06/23/2014 CHEM 14 5325720 PROT TOT 6.9 GM/DL 06/23/2014 CHEM 14 6894385 GLUCOSE 87 MG/DL 06/23/2014 CHEM 14 3317515 BICARB 24 MMOL/L 06/23/2014 CHEM 14 1709731 ANION GAP 7 MEQ/L 06/23/2014 TSH 8136573 TSH 1.417 uIU/ML 06/23/2014 FREE T4 8542565 FREE T4 1.21 NG/DL 06/23/2014 TSH 4430587 TSH 3.399 uIU/ML 12/16/2013 CBC 8216325 WBC 6.4 10e9/L 12/15/2013 CBC 3799986 RBC 4.34 10e12/L 12/15/2013 CBC 1294134 HGB 12.9 g/dL 12/15/2013 CBC 1667315 HCT DET 39.3 % 12/15/2013 CBC 8524377 MCV 90.6 fL 12/15/2013 CBC 6772172 MCH 29.7 pg 12/15/2013 CBC 2747303 MCHC 32.8 g/dL 12/15/2013 CBC 5088953 PLT 292 10e9/L 12/15/2013 CBC 7415890 MPV 10.8 fL 12/15/2013 CBC 8874200 BESSY % 63.6 % 12/15/2013 CBC 8168304 LY % 25.7 % 12/15/2013 CBC 5313460 MON % 7.1 % 12/15/2013 CBC 3166918 EOS % 3.3 % 12/15/2013 CBC 4668925 BASO % 0.3 % 12/15/2013 CBC 7933917 RDW 13.4 % 12/15/2013 CBC 9194178 ABS BESSY 4.07 10e9/L 12/15/2013 CBC 1734754 ABS LYMPH 1.64 10e9/L 12/15/2013 CBC 3766109 ABS MONO 0.45 10e9/L 12/15/2013 CBC 6145457 ABS EOS 0.21 10e9/L 12/15/2013 CBC 4046108 ABS BASO 0.02 10e9/L 12/15/2013 CBC 9346448 RDW-SD 43.5 fL 12/15/2013 CHEM 14 7291504 AST 19 U/L 12/15/2013 CHEM 14 6390993 ALT 23 IU/L 12/15/2013 CHEM 14 6986861 BUN 23 MG/DL 12/15/2013 CHEM 14 8374332 ALBUMIN 4.7 GM/DL 12/15/2013 CHEM 14 6972880 CHLORIDE 108 MMOL/L 12/15/2013 CHEM 14 1092235 BILI TOT 0.3 MG/DL 12/15/2013 CHEM 14 4691034 ALK PHOS 58 U/L 12/15/2013 CHEM 14 4757947 SODIUM 139 MMOL/L 12/15/2013 CHEM 14 7589522 CREATININE 0.92 MG/DL 12/15/2013 CHEM 14 4523493 CALCIUM 10.0 MG/DL 12/15/2013 CHEM 14 5810709 POTASSIUM 4.0 MMOL/L 12/15/2013 CHEM 14 7503115 PROT TOT 7.1 GM/DL 12/15/2013 CHEM 14 5249088 GLUCOSE 82 MG/DL 12/15/2013 CHEM 14 7232616 BICARB 24 MMOL/L 12/15/2013 CHEM 14 9682269 ANION GAP 7 MEQ/L 12/15/2013 GFR CALC 7004262 GFR AA >60 ML/MIN 12/15/2013 GFR CALC GFR NON-AA >60 ML/MIN 12/15/2013 URINALYSIS NONAUTO W/O SCOPE 17080 Specific [place] 1.025 DateTime(Free Text in Aprima) URINALYSIS NONAUTO W/O SCOPE 24215 PH 5 DateTime(Free Text in Aprima) URINALYSIS NONAUTO W/O SCOPE 43710 GLUCOSE neg DateTime( Free Text in Aprima) URINALYSIS NONAUTO W/O SCOPE 04036 Protein neg DateTime( Free Text in Aprima) URINALYSIS NONAUTO W/O SCOPE 44806 Blood neg DateTime(Free Text in Aprima) URINALYSIS NONAUTO W/O SCOPE 24427 Bilirubin neg DateTime(Free Text in Aprima) URINALYSIS NONAUTO W/O SCOPE 65484 Ketones neg DateTime( Free Text in Aprima) URINALYSIS NONAUTO W/O SCOPE 92754 Urobilinogen neg DateTime(Free Text in Aprima) URINALYSIS NONAUTO W/O SCOPE 55975 Nitrite neg DateTime( Free Text in Aprima) URINALYSIS NONAUTO W/O SCOPE 85637 Leukocytes neg DateTime(Free Text in Apr) Review of Systems System Result Effective Dates Constitutional No recent illness 2018 Constitutional No anorexia 12/11/2018 Constitutional No night sweats 2018 Constitutional No chills 12/11/2018 Constitutional No diaphoresis 12/11/2018 Constitutional fatigue 12/11/2018 Constitutional No fever 12/11/2018 Constitutional No insomnia 12/11/2018 Constitutional No malaise 12/11/2018 Constitutional No weight loss 12/11/2018 Constitutional No weight gain 12/11/2018 Eyes No eye erythema 12/11/2018 Eyes No eye discharge 12/11/2018 Ears/Nose/Throat/Neck No dizziness 2018 Ears/Nose/Throat/Neck headache 2018 Cardiovascular No edema 12/11/2018 Respiratory No cough 12/11/2018 Genitourinary/Nephrology No dysuria 12/11 Musculoskeletal joint complaint 2018 Dermatologic No rash 12/11/2018 Neurologic No alteration of consciousness 12/11/2018 Constitutional No recent illness 2018 Constitutional No anorexia 11/18/2018 Constitutional No night sweats 2018 Constitutional No chills 11/18/2018 Constitutional No diaphoresis 11/18/2018 Constitutional No fatigue 11/18/2018 Constitutional No fever 11/18/2018 Constitutional No insomnia 11/18/2018 Constitutional No malaise 11/18/2018 Constitutional No weight loss 11/18/2018 Constitutional weight gain 11/18/2018 Eyes No eye discharge 11/18/2018 Eyes No eye erythema 11/18/2018 Ears/Nose/Throat/Neck No dizziness 2018 Ears/Nose/Throat/Neck headache 2018 Cardiovascular No edema 11/18/2018 Respiratory No cough 11/18/2018 Gastrointestinal abdominal pain 2018 Gastrointestinal No vomiting 11/18/2018 Gastrointestinal nausea 11/18/2018 Gastrointestinal diarrhea 11/18/2018 Gastrointestinal No constipation 2018 Genitourinary/Nephrology No dysuria 11/18 Musculoskeletal joint complaint 2018 Dermatologic No rash 11/18/2018 Neurologic No alteration of consciousness 11/18/2018 Constitutional No recent illness 2018 Constitutional No chills 10/02/2018 Constitutional fatigue 10/02/2018 Constitutional No fever 10/02/2018 Constitutional No insomnia 10/02/2018 Constitutional malaise 10/02/2018 Ears/Nose/Throat/Neck No dental pain Ears/Nose/Throat/Neck No dizziness 2018 Ears/Nose/Throat/Neck No dysphagia 2018 Ears/Nose/Throat/Neck No headache 2018 Ears/Nose/Throat/Neck No hearing loss Ears/Nose/Throat/Neck No nasal allergies 10/02/2018 Ears/Nose/Throat/Neck No sore throat Ears/Nose/Throat/Neck No postnasal drip 10/02/2018 Ears/Nose/Throat/Neck No sinus congestion 10/02/2018 Cardiovascular No chest pain/pressure Cardiovascular No dyspnea 10/02/2018 Cardiovascular No edema 10/02/2018 Cardiovascular No exercise intolerance Cardiovascular fatigue 10/02/2018 Cardiovascular No near-syncope/dizziness 10/02/2018 Respiratory No chest tightness 2018 Respiratory No cigarette smoking 2018 Respiratory No cough 10/02/2018 Respiratory No dyspnea 10/02/2018 Respiratory No pedal edema 10/02/2018 Respiratory No snoring 10/02/2018 Respiratory No wheezing 10/02/2018 Gastrointestinal No hemorrhoids 2018 Gastrointestinal No abdominal pain 2018 Gastrointestinal No constipation 2018 Gastrointestinal No diarrhea 10/02/2018 Gastrointestinal No gastroesophageal reflux 10/02/2018 Gastrointestinal No melena 10/02/2018 Gastrointestinal No nausea 10/02/2018 Gastrointestinal No vomiting 10/02/2018 Musculoskeletal stiffness 10/02/2018 Musculoskeletal arthralgia(s) 10/02/2018 Dermatologic No rash 10/02/2018 Neurologic No dizziness 10/02/2018 Neurologic headache 10/02/2018 Neurologic No neck pain 10/02/2018 Neurologic No syncope 10/02/2018 Psychiatric No anxiety 10/02/2018 Psychiatric No depression 10/02/2018 Constitutional No recent illness 2017 Constitutional No chills 08/06/2018 Constitutional fatigue 08/06/2018 Constitutional No fever 08/06/2018 Constitutional No insomnia 08/06/2018 Constitutional malaise 08/06/2018 Ears/Nose/Throat/Neck No dental pain Ears/Nose/Throat/Neck No dizziness 2017 Ears/Nose/Throat/Neck No dysphagia 2017 Ears/Nose/Throat/Neck No headache 2017 Ears/Nose/Throat/Neck No hearing loss Ears/Nose/Throat/Neck No nasal allergies 08/06/2018 Ears/Nose/Throat/Neck No sore throat Ears/Nose/Throat/Neck No postnasal drip 08/06/2018 Ears/Nose/Throat/Neck No sinus congestion 08/06/2018 Cardiovascular No chest pain/pressure Cardiovascular No dyspnea 08/06/2018 Cardiovascular No edema 08/06/2018 Cardiovascular No exercise intolerance Cardiovascular fatigue 08/06/2018 Cardiovascular No near-syncope/dizziness 08/06/2018 Respiratory No chest tightness 2017 Respiratory No cigarette smoking 2017 Respiratory No cough 08/06/2018 Respiratory No dyspnea 08/06/2018 Respiratory No pedal edema 08/06/2018 Respiratory No snoring 08/06/2018 Respiratory No wheezing 08/06/2018 Gastrointestinal No hemorrhoids 2017 Gastrointestinal No abdominal pain 2017 Gastrointestinal No constipation 2017 Gastrointestinal No diarrhea 08/06/2018 Gastrointestinal No gastroesophageal reflux 08/06/2018 Gastrointestinal No melena 08/06/2018 Gastrointestinal No nausea 08/06/2018 Gastrointestinal No vomiting 08/06/2018 Musculoskeletal stiffness 08/06/2018 Musculoskeletal arthralgia(s) 08/06/2018 Dermatologic No rash 08/06/2018 Neurologic No dizziness 08/06/2018 Neurologic headache 08/06/2018 Neurologic No neck pain 08/06/2018 Neurologic No syncope 08/06/2018 Psychiatric No anxiety 08/06/2018 Psychiatric No depression 08/06/2018 Constitutional No recent illness 2017 Constitutional No chills 07/08/2018 Constitutional fatigue 07/08/2018 Constitutional No fever 07/08/2018 Constitutional No insomnia 07/08/2018 Constitutional malaise 07/08/2018 Ears/Nose/Throat/Neck No dental pain Ears/Nose/Throat/Neck No dizziness 2017 Ears/Nose/Throat/Neck No dysphagia 2017 Ears/Nose/Throat/Neck No headache 2017 Ears/Nose/Throat/Neck No hearing loss Ears/Nose/Throat/Neck No nasal allergies 07/08/2018 Ears/Nose/Throat/Neck No sore throat Ears/Nose/Throat/Neck No postnasal drip 07/08/2018 Ears/Nose/Throat/Neck No sinus congestion 07/08/2018 Cardiovascular No chest pain/pressure Cardiovascular No dyspnea 07/08/2018 Cardiovascular No edema 07/08/2018 Cardiovascular No exercise intolerance Cardiovascular fatigue 07/08/2018 Cardiovascular No near-syncope/dizziness 07/08/2018 Respiratory No chest tightness 2017 Respiratory No cigarette smoking 2017 Respiratory No cough 07/08/2018 Respiratory No dyspnea 07/08/2018 Respiratory No pedal edema 07/08/2018 Respiratory No snoring 07/08/2018 Respiratory No wheezing 07/08/2018 Gastrointestinal No hemorrhoids 2017 Gastrointestinal No abdominal pain 2017 Gastrointestinal No constipation 2017 Gastrointestinal No diarrhea 07/08/2018 Gastrointestinal No gastroesophageal reflux 07/08/2018 Gastrointestinal No melena 07/08/2018 Gastrointestinal No nausea 07/08/2018 Gastrointestinal No vomiting 07/08/2018 Musculoskeletal stiffness 07/08/2018 Musculoskeletal arthralgia(s) 07/08/2018 Dermatologic No rash 07/08/2018 Neurologic No dizziness 07/08/2018 Neurologic headache 07/08/2018 Neurologic No neck pain 07/08/2018 Neurologic No syncope 07/08/2018 Psychiatric No anxiety 07/08/2018 Psychiatric No depression 07/08/2018 Constitutional No recent illness 2017 Constitutional No chills 02/11/2018 Constitutional fatigue 02/11/2018 Constitutional No fever 02/11/2018 Constitutional No insomnia 02/11/2018 Constitutional malaise 02/11/2018 Ears/Nose/Throat/Neck No dental pain 01/2018 Ears/Nose/Throat/Neck No dizziness 2017 Ears/Nose/Throat/Neck No dysphagia 2017 Ears/Nose/Throat/Neck No headache 2017 Ears/Nose/Throat/Neck No hearing loss 01/2018 Ears/Nose/Throat/Neck No nasal allergies 02/11/2018 Ears/Nose/Throat/Neck No sore throat 01/2018 Ears/Nose/Throat/Neck No postnasal drip 02/11/2018 Ears/Nose/Throat/Neck No sinus congestion 02/11/2018 Cardiovascular No chest pain/pressure 01/2018 Cardiovascular No dyspnea 02/11/2018 Cardiovascular No edema 02/11/2018 Cardiovascular No exercise intolerance Cardiovascular fatigue 02/11/2018 Cardiovascular No near-syncope/dizziness 02/11/2018 Respiratory No chest tightness 2017 Respiratory No cigarette smoking 2017 Respiratory No cough 02/11/2018 Respiratory No dyspnea 02/11/2018 Respiratory No pedal edema 02/11/2018 Respiratory No snoring 02/11/2018 Respiratory No wheezing 02/11/2018 Gastrointestinal No hemorrhoids 2017 Gastrointestinal No abdominal pain 2017 Gastrointestinal No constipation 2017 Gastrointestinal No diarrhea 02/11/2018 Gastrointestinal No gastroesophageal reflux 02/11/2018 Gastrointestinal No melena 02/11/2018 Gastrointestinal No nausea 02/11/2018 Gastrointestinal No vomiting 02/11/2018 Musculoskeletal stiffness 02/11/2018 Musculoskeletal arthralgia(s) 02/11/2018 Dermatologic No rash 02/11/2018 Dermatologic scar 02/11/2018 Neurologic No dizziness 02/11/2018 Neurologic headache 02/11/2018 Neurologic No neck pain 02/11/2018 Neurologic No syncope 02/11/2018 Psychiatric No anxiety 02/11/2018 Psychiatric No depression 02/11/2018 Constitutional No recent illness 2017 Constitutional No chills 11/12/2017 Constitutional fatigue 11/12/2017 Constitutional No fever 11/12/2017 Constitutional No insomnia 11/12/2017 Constitutional malaise 11/12/2017 Ears/Nose/Throat/Neck No dental pain 02/2018 Ears/Nose/Throat/Neck No dizziness 2017 Ears/Nose/Throat/Neck No dysphagia 2017 Ears/Nose/Throat/Neck No headache 2017 Ears/Nose/Throat/Neck No hearing loss 02/2018 Ears/Nose/Throat/Neck No nasal allergies 11/12/2017 Ears/Nose/Throat/Neck No sore throat 02/2018 Ears/Nose/Throat/Neck No postnasal drip 11/12/2017 Ears/Nose/Throat/Neck No sinus congestion 11/12/2017 Cardiovascular No chest pain/pressure 02/2018 Cardiovascular No dyspnea 11/12/2017 Cardiovascular No edema 11/12/2017 Cardiovascular No exercise intolerance Cardiovascular fatigue 11/12/2017 Cardiovascular No near-syncope/dizziness 11/12/2017 Respiratory No chest tightness 2017 Respiratory No cigarette smoking 2017 Respiratory No cough 11/12/2017 Respiratory No dyspnea 11/12/2017 Respiratory No pedal edema 11/12/2017 Respiratory No snoring 11/12/2017 Respiratory No wheezing 11/12/2017 Gastrointestinal No hemorrhoids 2017 Gastrointestinal No abdominal pain 2017 Gastrointestinal No constipation 2017 Gastrointestinal No diarrhea 11/12/2017 Gastrointestinal No gastroesophageal reflux 11/12/2017 Gastrointestinal No melena 11/12/2017 Gastrointestinal No nausea 11/12/2017 Gastrointestinal No vomiting 11/12/2017 Musculoskeletal stiffness 11/12/2017 Musculoskeletal arthralgia(s) 11/12/2017 Dermatologic No rash 11/12/2017 Dermatologic scar 11/12/2017 Neurologic No dizziness 11/12/2017 Neurologic headache 11/12/2017 Neurologic No neck pain 11/12/2017 Neurologic No syncope 11/12/2017 Psychiatric No anxiety 11/12/2017 Psychiatric No depression 11/12/2017 Constitutional No recent illness 2016 Constitutional No chills 08/20/2017 Constitutional fatigue 08/20/2017 Constitutional No fever 08/20/2017 Constitutional No insomnia 08/20/2017 Constitutional malaise 08/20/2017 Ears/Nose/Throat/Neck No dental pain 08/2017 Ears/Nose/Throat/Neck No dizziness 2016 Ears/Nose/Throat/Neck No dysphagia 2016 Ears/Nose/Throat/Neck No headache 2016 Ears/Nose/Throat/Neck No hearing loss 08/2017 Ears/Nose/Throat/Neck No nasal allergies 08/20/2017 Ears/Nose/Throat/Neck No sore throat 08/2017 Ears/Nose/Throat/Neck No postnasal drip 08/20/2017 Ears/Nose/Throat/Neck No sinus congestion 08/20/2017 Cardiovascular No chest pain/pressure 08/2017 Cardiovascular No dyspnea 08/20/2017 Cardiovascular No edema 08/20/2017 Cardiovascular No exercise intolerance Cardiovascular fatigue 08/20/2017 Cardiovascular No near-syncope/dizziness 08/20/2017 Respiratory No chest tightness 2016 Respiratory No cigarette smoking 2016 Respiratory No cough 08/20/2017 Respiratory No dyspnea 08/20/2017 Respiratory No pedal edema 08/20/2017 Respiratory No snoring 08/20/2017 Respiratory No wheezing 08/20/2017 Gastrointestinal No hemorrhoids 2016 Gastrointestinal No abdominal pain 2016 Gastrointestinal No constipation 2016 Gastrointestinal No diarrhea 08/20/2017 Gastrointestinal No gastroesophageal reflux 08/20/2017 Gastrointestinal No melena 08/20/2017 Gastrointestinal No nausea 08/20/2017 Gastrointestinal No vomiting 08/20/2017 Musculoskeletal stiffness 08/20/2017 Musculoskeletal arthralgia(s) 08/20/2017 Dermatologic No rash 08/20/2017 Dermatologic scar 08/20/2017 Neurologic No dizziness 08/20/2017 Neurologic headache 08/20/2017 Neurologic No neck pain 08/20/2017 Neurologic No syncope 08/20/2017 Psychiatric No anxiety 08/20/2017 Psychiatric No depression 08/20/2017 Constitutional No recent illness 2016 Constitutional No chills 06/24/2017 Constitutional No fatigue 06/24/2017 Constitutional No fever 06/24/2017 Constitutional No insomnia 06/24/2017 Constitutional No malaise 06/24/2017 Eyes No eye discharge 06/24/2017 Ears/Nose/Throat/Neck nasal allergies Ears/Nose/Throat/Neck nasal discharge Ears/Nose/Throat/Neck No otalgia 2016 Ears/Nose/Throat/Neck postnasal drip Ears/Nose/Throat/Neck sinus congestion Ears/Nose/Throat/Neck No sore throat Cardiovascular No chest pain/pressure Cardiovascular No dyspnea 06/24/2017 Cardiovascular No edema 06/24/2017 Respiratory No chest congestion 2016 Respiratory cough 06/24/2017 Respiratory No dyspnea 06/24/2017 Gastrointestinal No abdominal pain 2016 Gastrointestinal No constipation 2016 Gastrointestinal No diarrhea 06/24/2017 Gastrointestinal No nausea 06/24/2017 Gastrointestinal No vomiting 06/24/2017 Genitourinary/Nephrology No dysuria 06/24 Musculoskeletal stiffness 06/24/2017 Musculoskeletal arthralgia(s) 06/24/2017 Musculoskeletal back pain 06/24/2017 Dermatologic No rash 06/24/2017 Neurologic No alteration of consciousness 06/24/2017 Psychiatric No anxiety 06/24/2017 Psychiatric No depression 06/24/2017 Constitutional No anorexia 06/24/2017 Constitutional No night sweats 2016 Constitutional No diaphoresis 06/24/2017 Constitutional No weight loss 06/24/2017 Constitutional No weight gain 06/24/2017 Constitutional recent illness 05/22/2017 Constitutional No chills 05/22/2017 Constitutional fatigue 05/22/2017 Constitutional No fever 05/22/2017 Constitutional No insomnia 05/22/2017 Constitutional malaise 05/22/2017 Ears/Nose/Throat/Neck No dental pain Ears/Nose/Throat/Neck No dizziness 2016 Ears/Nose/Throat/Neck No dysphagia 2016 Ears/Nose/Throat/Neck No headache 2016 Ears/Nose/Throat/Neck No hearing loss Ears/Nose/Throat/Neck nasal allergies Ears/Nose/Throat/Neck sore throat 2016 Ears/Nose/Throat/Neck postnasal drip Ears/Nose/Throat/Neck No sinus congestion 05/22/2017 Cardiovascular No chest pain/pressure Cardiovascular No dyspnea 05/22/2017 Cardiovascular No edema 05/22/2017 Cardiovascular No exercise intolerance Cardiovascular No fatigue 05/22/2017 Cardiovascular No near-syncope/dizziness 05/22/2017 Respiratory No chest tightness 2016 Respiratory No cigarette smoking 2016 Respiratory No cough 05/22/2017 Respiratory No dyspnea 05/22/2017 Respiratory No pedal edema 05/22/2017 Respiratory No snoring 05/22/2017 Respiratory No wheezing 05/22/2017 Gastrointestinal No hemorrhoids 2016 Gastrointestinal No abdominal pain 2016 Gastrointestinal No constipation 2016 Gastrointestinal No diarrhea 05/22/2017 Gastrointestinal No gastroesophageal reflux 05/22/2017 Gastrointestinal No melena 05/22/2017 Gastrointestinal No nausea 05/22/2017 Musculoskeletal stiffness 05/22/2017 Musculoskeletal arthralgia(s) 05/22/2017 Dermatologic No rash 05/22/2017 Dermatologic No scar 05/22/2017 Neurologic No dizziness 05/22/2017 Neurologic headache 05/22/2017 Neurologic No neck pain 05/22/2017 Neurologic No syncope 05/22/2017 Psychiatric No anxiety 05/22/2017 Psychiatric No depression 05/22/2017 Eyes No eye discharge 05/22/2017 Ears/Nose/Throat/Neck nasal discharge Ears/Nose/Throat/Neck otalgia 05/22/2017 Respiratory chest congestion 05/22/2017 Genitourinary/Nephrology No dysuria 05/22 Musculoskeletal back pain 05/22/2017 Neurologic No alteration of consciousness 05/22/2017 Constitutional recent illness 05/10/2017 Constitutional chills 05/10/2017 Constitutional fatigue 05/10/2017 Constitutional No fever 05/10/2017 Constitutional No insomnia 05/10/2017 Constitutional malaise 05/10/2017 Ears/Nose/Throat/Neck nasal allergies 09/2016 Ears/Nose/Throat/Neck nasal discharge 09/2016 Ears/Nose/Throat/Neck otalgia 05/10/2017 Ears/Nose/Throat/Neck postnasal drip 09/2016 Ears/Nose/Throat/Neck sinus congestion Ears/Nose/Throat/Neck sore throat 2016 Cardiovascular No chest pain/pressure 09/2016 Cardiovascular No dyspnea 05/10/2017 Cardiovascular No edema 05/10/2017 Respiratory chest congestion 05/10/2017 Respiratory cough 05/10/2017 Respiratory No dyspnea 05/10/2017 Gastrointestinal No abdominal pain 2016 Gastrointestinal No constipation 2016 Gastrointestinal No diarrhea 05/10/2017 Gastrointestinal No nausea 05/10/2017 Gastrointestinal vomiting 05/10/2017 Musculoskeletal stiffness 05/10/2017 Musculoskeletal arthralgia(s) 05/10/2017 Musculoskeletal back pain 05/10/2017 Neurologic No alteration of consciousness 05/10/2017 Psychiatric No anxiety 05/10/2017 Psychiatric No depression 05/10/2017 Genitourinary/Nephrology No dysuria 05/10 Dermatologic No rash 05/10/2017 Eyes No eye discharge 05/10/2017 Constitutional No recent illness 2016 Constitutional No chills 04/08/2017 Constitutional fatigue 04/08/2017 Constitutional No fever 04/08/2017 Constitutional No insomnia 04/08/2017 Constitutional malaise 04/08/2017 Ears/Nose/Throat/Neck No dental pain Ears/Nose/Throat/Neck No dizziness 2016 Ears/Nose/Throat/Neck No dysphagia 2016 Ears/Nose/Throat/Neck No headache 2016 Ears/Nose/Throat/Neck No hearing loss Ears/Nose/Throat/Neck No nasal allergies 04/08/2017 Ears/Nose/Throat/Neck No sore throat Ears/Nose/Throat/Neck No postnasal drip 04/08/2017 Ears/Nose/Throat/Neck No sinus congestion 04/08/2017 Cardiovascular No chest pain/pressure Cardiovascular No dyspnea 04/08/2017 Cardiovascular No edema 04/08/2017 Cardiovascular No exercise intolerance Cardiovascular No fatigue 04/08/2017 Cardiovascular No near-syncope/dizziness 04/08/2017 Respiratory No chest tightness 2016 Respiratory No cigarette smoking 2016 Respiratory No cough 04/08/2017 Respiratory No dyspnea 04/08/2017 Respiratory No pedal edema 04/08/2017 Respiratory No snoring 04/08/2017 Respiratory No wheezing 04/08/2017 Gastrointestinal No hemorrhoids 2016 Gastrointestinal No abdominal pain 2016 Gastrointestinal No constipation 2016 Gastrointestinal No diarrhea 04/08/2017 Gastrointestinal No gastroesophageal reflux 04/08/2017 Gastrointestinal No melena 04/08/2017 Gastrointestinal No nausea 04/08/2017 Gastrointestinal No vomiting 04/08/2017 Musculoskeletal stiffness 04/08/2017 Musculoskeletal arthralgia(s) 04/08/2017 Dermatologic No rash 04/08/2017 Dermatologic No scar 04/08/2017 Neurologic No dizziness 04/08/2017 Neurologic headache 04/08/2017 Neurologic No neck pain 04/08/2017 Neurologic No syncope 04/08/2017 Psychiatric No anxiety 04/08/2017 Psychiatric No depression 04/08/2017 Constitutional No recent illness 2016 Constitutional No chills 02/20/2017 Constitutional fatigue 02/20/2017 Constitutional No fever 02/20/2017 Constitutional No insomnia 02/20/2017 Constitutional malaise 02/20/2017 Ears/Nose/Throat/Neck No dental pain Ears/Nose/Throat/Neck No dizziness 2016 Ears/Nose/Throat/Neck No dysphagia 2016 Ears/Nose/Throat/Neck No headache 2016 Ears/Nose/Throat/Neck No hearing loss Ears/Nose/Throat/Neck No nasal allergies 02/20/2017 Ears/Nose/Throat/Neck No sore throat Ears/Nose/Throat/Neck No postnasal drip 02/20/2017 Ears/Nose/Throat/Neck No sinus congestion 02/20/2017 Cardiovascular No chest pain/pressure Cardiovascular No dyspnea 02/20/2017 Cardiovascular No edema 02/20/2017 Cardiovascular No exercise intolerance Cardiovascular No fatigue 02/20/2017 Cardiovascular No near-syncope/dizziness 02/20/2017 Respiratory No chest tightness 2016 Respiratory No cigarette smoking 2016 Respiratory No cough 02/20/2017 Respiratory No dyspnea 02/20/2017 Respiratory No pedal edema 02/20/2017 Respiratory No snoring 02/20/2017 Respiratory No wheezing 02/20/2017 Gastrointestinal No hemorrhoids 2016 Gastrointestinal No abdominal pain 2016 Gastrointestinal No constipation 2016 Gastrointestinal No diarrhea 02/20/2017 Gastrointestinal No gastroesophageal reflux 02/20/2017 Gastrointestinal No melena 02/20/2017 Gastrointestinal No nausea 02/20/2017 Gastrointestinal No vomiting 02/20/2017 Musculoskeletal stiffness 02/20/2017 Musculoskeletal arthralgia(s) 02/20/2017 Dermatologic No rash 02/20/2017 Dermatologic No scar 02/20/2017 Neurologic No dizziness 02/20/2017 Neurologic headache 02/20/2017 Neurologic No neck pain 02/20/2017 Neurologic No syncope 02/20/2017 Psychiatric No anxiety 02/20/2017 Psychiatric No depression 02/20/2017 Constitutional No recent illness 2016 Constitutional No chills 11/21/2016 Constitutional fatigue 11/21/2016 Constitutional No fever 11/21/2016 Constitutional No insomnia 11/21/2016 Constitutional malaise 11/21/2016 Ears/Nose/Throat/Neck No dental pain Ears/Nose/Throat/Neck No dizziness 2016 Ears/Nose/Throat/Neck No dysphagia 2016 Ears/Nose/Throat/Neck No headache 2016 Ears/Nose/Throat/Neck No hearing loss Ears/Nose/Throat/Neck No nasal allergies 11/21/2016 Ears/Nose/Throat/Neck No sore throat Ears/Nose/Throat/Neck No postnasal drip 11/21/2016 Ears/Nose/Throat/Neck No sinus congestion 11/21/2016 Cardiovascular No chest pain/pressure Cardiovascular No dyspnea 11/21/2016 Cardiovascular No edema 11/21/2016 Cardiovascular No exercise intolerance Cardiovascular No fatigue 11/21/2016 Cardiovascular No near-syncope/dizziness 11/21/2016 Respiratory No chest tightness 2016 Respiratory No cigarette smoking 2016 Respiratory No cough 11/21/2016 Respiratory No dyspnea 11/21/2016 Respiratory No pedal edema 11/21/2016 Respiratory No snoring 11/21/2016 Respiratory No wheezing 11/21/2016 Gastrointestinal No hemorrhoids 2016 Gastrointestinal No abdominal pain 2016 Gastrointestinal No constipation 2016 Gastrointestinal No diarrhea 11/21/2016 Gastrointestinal No gastroesophageal reflux 11/21/2016 Gastrointestinal No melena 11/21/2016 Gastrointestinal No nausea 11/21/2016 Gastrointestinal No vomiting 11/21/2016 Musculoskeletal stiffness 11/21/2016 Musculoskeletal arthralgia(s) 11/21/2016 Dermatologic No rash 11/21/2016 Dermatologic No scar 11/21/2016 Neurologic No dizziness 11/21/2016 Neurologic headache 11/21/2016 Neurologic No neck pain 11/21/2016 Neurologic No syncope 11/21/2016 Psychiatric No anxiety 11/21/2016 Psychiatric No depression 11/21/2016 Constitutional No recent illness 2015 Constitutional No chills 08/29/2016 Constitutional fatigue 08/29/2016 Constitutional No fever 08/29/2016 Constitutional No insomnia 08/29/2016 Constitutional malaise 08/29/2016 Ears/Nose/Throat/Neck No dental pain Ears/Nose/Throat/Neck No dizziness 2015 Ears/Nose/Throat/Neck No dysphagia 2015 Ears/Nose/Throat/Neck No headache 2015 Ears/Nose/Throat/Neck No hearing loss Ears/Nose/Throat/Neck No nasal allergies 08/29/2016 Ears/Nose/Throat/Neck No sore throat Ears/Nose/Throat/Neck No postnasal drip 08/29/2016 Ears/Nose/Throat/Neck No sinus congestion 08/29/2016 Cardiovascular No chest pain/pressure Cardiovascular No dyspnea 08/29/2016 Cardiovascular No edema 08/29/2016 Cardiovascular No exercise intolerance Cardiovascular No fatigue 08/29/2016 Cardiovascular No near-syncope/dizziness 08/29/2016 Respiratory No chest tightness 2015 Respiratory No cigarette smoking 2015 Respiratory No cough 08/29/2016 Respiratory No dyspnea 08/29/2016 Respiratory No pedal edema 08/29/2016 Respiratory No snoring 08/29/2016 Respiratory No wheezing 08/29/2016 Gastrointestinal No hemorrhoids 2015 Gastrointestinal abdominal pain 2015 Gastrointestinal No constipation 2015 Gastrointestinal No diarrhea 08/29/2016 Gastrointestinal No gastroesophageal reflux 08/29/2016 Gastrointestinal No melena 08/29/2016 Gastrointestinal nausea 08/29/2016 Musculoskeletal stiffness 08/29/2016 Musculoskeletal arthralgia(s) 08/29/2016 Dermatologic No rash 08/29/2016 Dermatologic No scar 08/29/2016 Neurologic No dizziness 08/29/2016 Neurologic headache 08/29/2016 Neurologic No neck pain 08/29/2016 Neurologic No syncope 08/29/2016 Psychiatric No anxiety 08/29/2016 Psychiatric No depression 08/29/2016 Constitutional No recent illness 2015 Constitutional No anorexia 07/05/2016 Constitutional No night sweats 2015 Constitutional No chills 07/05/2016 Constitutional No diaphoresis 07/05/2016 Constitutional fatigue 07/05/2016 Constitutional No fever 07/05/2016 Constitutional No insomnia 07/05/2016 Constitutional malaise 07/05/2016 Ears/Nose/Throat/Neck dizziness 2015 Ears/Nose/Throat/Neck No sore throat Ears/Nose/Throat/Neck No otalgia 2015 Ears/Nose/Throat/Neck No sinus congestion 07/05/2016 Cardiovascular No dyspnea 07/05/2016 Cardiovascular No edema 07/05/2016 Cardiovascular No fatigue 07/05/2016 Respiratory No productive sputum 2015 Respiratory No chest congestion 2015 Respiratory No chest tightness 2015 Respiratory No cigarette smoking 2015 Respiratory No cough 07/05/2016 Respiratory No dyspnea 07/05/2016 Respiratory No pedal edema 07/05/2016 Respiratory No snoring 07/05/2016 Respiratory No wheezing 07/05/2016 Gastrointestinal No diarrhea 07/05/2016 Gastrointestinal No gastroesophageal reflux 07/05/2016 Gastrointestinal No melena 07/05/2016 Gastrointestinal nausea 07/05/2016 Gastrointestinal No vomiting 07/05/2016 Psychiatric anxiety 07/05/2016 Psychiatric No depression 07/05/2016 Gastrointestinal abdominal pain 2015 Constitutional recent illness 06/11/2016 Constitutional No anorexia 06/11/2016 Constitutional No chills 06/11/2016 Constitutional No diaphoresis 06/11/2016 Constitutional fatigue 06/11/2016 Constitutional No insomnia 06/11/2016 Constitutional malaise 06/11/2016 Eyes No eye discharge 06/11/2016 Eyes No eye erythema 06/11/2016 Eyes No vision change 06/11/2016 Ears/Nose/Throat/Neck dizziness 2015 Ears/Nose/Throat/Neck No sore throat 11/2015 Ears/Nose/Throat/Neck No otalgia 2015 Ears/Nose/Throat/Neck No sinus congestion 06/11/2016 Cardiovascular No chest pain/pressure 11/2015 Cardiovascular No dyspnea 06/11/2016 Cardiovascular No edema 06/11/2016 Cardiovascular No exercise intolerance Cardiovascular No fatigue 06/11/2016 Cardiovascular No near-syncope/dizziness 06/11/2016 Respiratory No productive sputum 2015 Respiratory No chest congestion 2015 Respiratory No chest tightness 2015 Respiratory No cigarette smoking 2015 Respiratory No cough 06/11/2016 Respiratory No dyspnea 06/11/2016 Respiratory No pedal edema 06/11/2016 Respiratory No snoring 06/11/2016 Respiratory No wheezing 06/11/2016 Gastrointestinal abdominal pain 2015 Gastrointestinal No constipation 2015 Gastrointestinal diarrhea 06/11/2016 Genitourinary/Nephrology No dysuria 06/11 Psychiatric anxiety 06/11/2016 Psychiatric No depression 06/11/2016 Musculoskeletal carpal tunnel syndrome Constitutional recent illness 06/04/2016 Constitutional No chills 06/04/2016 Constitutional No diaphoresis 06/04/2016 Constitutional malaise 06/04/2016 Eyes No eye discharge 06/04/2016 Eyes No eye erythema 06/04/2016 Ears/Nose/Throat/Neck No sore throat Cardiovascular No chest pain/pressure Cardiovascular No dyspnea 06/04/2016 Respiratory No productive sputum 2015 Respiratory No chest congestion 2015 Respiratory No cough 06/04/2016 Respiratory No dyspnea 06/04/2016 Gastrointestinal abdominal pain 2015 Gastrointestinal No constipation 2015 Gastrointestinal diarrhea 06/04/2016 Constitutional No fever 06/04/2016 Ears/Nose/Throat/Neck nasal allergies Ears/Nose/Throat/Neck nasal discharge Ears/Nose/Throat/Neck No sinus congestion 06/04/2016 Dermatologic No rash 06/04/2016 Neurologic No alteration of consciousness 06/04/2016 Neurologic No mental status change 2015 Constitutional No recent illness 2015 Constitutional No anorexia 04/10/2016 Constitutional No night sweats 2015 Constitutional No chills 04/10/2016 Constitutional No diaphoresis 04/10/2016 Constitutional No fatigue 04/10/2016 Constitutional No fever 04/10/2016 Constitutional No insomnia 04/10/2016 Constitutional No weight loss 04/10/2016 Constitutional No weight gain 04/10/2016 Constitutional No malaise 04/10/2016 Musculoskeletal swelling 04/10/2016 Constitutional No recent illness 2015 Constitutional No chills 03/26/2016 Constitutional fatigue 03/26/2016 Constitutional No fever 03/26/2016 Constitutional No insomnia 03/26/2016 Constitutional malaise 03/26/2016 Cardiovascular No chest pain/pressure Cardiovascular No dyspnea 03/26/2016 Cardiovascular No edema 03/26/2016 Cardiovascular No exercise intolerance Cardiovascular No fatigue 03/26/2016 Cardiovascular No near-syncope/dizziness 03/26/2016 Respiratory No chest tightness 2015 Respiratory No cigarette smoking 2015 Respiratory No cough 03/26/2016 Respiratory No dyspnea 03/26/2016 Respiratory No pedal edema 03/26/2016 Respiratory No snoring 03/26/2016 Respiratory No wheezing 03/26/2016 Gastrointestinal No hemorrhoids 2015 Gastrointestinal No abdominal pain 2015 Gastrointestinal No constipation 2015 Gastrointestinal No diarrhea 03/26/2016 Gastrointestinal No gastroesophageal reflux 03/26/2016 Gastrointestinal No melena 03/26/2016 Gastrointestinal No nausea 03/26/2016 Gastrointestinal No vomiting 03/26/2016 Dermatologic No rash 03/26/2016 Dermatologic No scar 03/26/2016 Psychiatric No anxiety 03/26/2016 Psychiatric No depression 03/26/2016 Ears/Nose/Throat/Neck No dental pain Ears/Nose/Throat/Neck No dizziness 2015 Ears/Nose/Throat/Neck No dysphagia 2015 Ears/Nose/Throat/Neck No headache 2015 Ears/Nose/Throat/Neck No hearing loss Ears/Nose/Throat/Neck No nasal allergies 03/26/2016 Ears/Nose/Throat/Neck No sore throat Ears/Nose/Throat/Neck No postnasal drip 03/26/2016 Ears/Nose/Throat/Neck No sinus congestion 03/26/2016 Musculoskeletal stiffness 03/26/2016 Musculoskeletal arthralgia(s) 03/26/2016 Neurologic No dizziness 03/26/2016 Neurologic headache 03/26/2016 Neurologic No neck pain 03/26/2016 Neurologic No syncope 03/26/2016 Constitutional No recent illness 2015 Constitutional No anorexia 01/23/2016 Constitutional No night sweats 2015 Constitutional No chills 01/23/2016 Constitutional No diaphoresis 01/23/2016 Constitutional fatigue 01/23/2016 Constitutional No fever 01/23/2016 Constitutional No insomnia 01/23/2016 Constitutional malaise 01/23/2016 Eyes No eye discharge 01/23/2016 Eyes No eye erythema 01/23/2016 Eyes No vision change 01/23/2016 Ears/Nose/Throat/Neck dizziness 2015 Ears/Nose/Throat/Neck No sore throat Ears/Nose/Throat/Neck No otalgia 2015 Ears/Nose/Throat/Neck No sinus congestion 01/23/2016 Cardiovascular No chest pain/pressure Cardiovascular No dyspnea 01/23/2016 Cardiovascular No edema 01/23/2016 Cardiovascular No exercise intolerance Cardiovascular No fatigue 01/23/2016 Cardiovascular No near-syncope/dizziness 01/23/2016 Respiratory No productive sputum 2015 Respiratory No chest congestion 2015 Respiratory No chest tightness 2015 Respiratory No cigarette smoking 2015 Respiratory No cough 01/23/2016 Respiratory No dyspnea 01/23/2016 Respiratory No pedal edema 01/23/2016 Respiratory No snoring 01/23/2016 Respiratory No wheezing 01/23/2016 Gastrointestinal No hemorrhoids 2015 Gastrointestinal abdominal pain 2015 Gastrointestinal No constipation 2015 Gastrointestinal No diarrhea 01/23/2016 Gastrointestinal gastroesophageal reflux 01/23/2016 Genitourinary/Nephrology No dysuria 01/22 Musculoskeletal stiffness 01/23/2016 Musculoskeletal arthralgia(s) 01/23/2016 Musculoskeletal back pain 01/23/2016 Musculoskeletal joint complaint 2015 Dermatologic No rash 01/23/2016 Dermatologic No scar 01/23/2016 Neurologic No alteration of consciousness 01/23/2016 Psychiatric anxiety 01/23/2016 Psychiatric No depression 01/23/2016 Constitutional No recent illness 2015 Constitutional No anorexia 12/26/2015 Constitutional No night sweats 2015 Constitutional No chills 12/26/2015 Constitutional No diaphoresis 12/26/2015 Constitutional fatigue 12/26/2015 Constitutional No fever 12/26/2015 Constitutional No insomnia 12/26/2015 Constitutional malaise 12/26/2015 Eyes No eye discharge 12/26/2015 Eyes No eye erythema 12/26/2015 Eyes No vision change 12/26/2015 Ears/Nose/Throat/Neck dizziness 2015 Ears/Nose/Throat/Neck No sore throat Ears/Nose/Throat/Neck No otalgia 2015 Ears/Nose/Throat/Neck No sinus congestion 12/26/2015 Cardiovascular No chest pain/pressure Cardiovascular No dyspnea 12/26/2015 Cardiovascular No edema 12/26/2015 Cardiovascular No exercise intolerance Cardiovascular No fatigue 12/26/2015 Cardiovascular No near-syncope/dizziness 12/26/2015 Respiratory No productive sputum 2015 Respiratory No chest congestion 2015 Respiratory No chest tightness 2015 Respiratory No cigarette smoking 2015 Respiratory No cough 12/26/2015 Respiratory No dyspnea 12/26/2015 Respiratory No pedal edema 12/26/2015 Respiratory No snoring 12/26/2015 Respiratory No wheezing 12/26/2015 Gastrointestinal No hemorrhoids 2015 Gastrointestinal No abdominal pain 2015 Gastrointestinal No constipation 2015 Gastrointestinal No diarrhea 12/26/2015 Gastrointestinal No gastroesophageal reflux 12/26/2015 Gastrointestinal No melena 12/26/2015 Gastrointestinal No nausea 12/26/2015 Gastrointestinal No vomiting 12/26/2015 Genitourinary/Nephrology No dysuria 12/25 Musculoskeletal stiffness 12/26/2015 Musculoskeletal arthralgia(s) 12/26/2015 Musculoskeletal back pain 12/26/2015 Musculoskeletal joint complaint 2015 Dermatologic No rash 12/26/2015 Dermatologic No scar 12/26/2015 Neurologic No alteration of consciousness 12/26/2015 Psychiatric anxiety 12/26/2015 Psychiatric No depression 12/26/2015 Constitutional recent illness 11/02/2015 Constitutional No chills 11/02/2015 Constitutional fatigue 11/02/2015 Constitutional No fever 11/02/2015 Constitutional No insomnia 11/02/2015 Constitutional malaise 11/02/2015 Ears/Nose/Throat/Neck nasal allergies Ears/Nose/Throat/Neck nasal discharge Ears/Nose/Throat/Neck postnasal drip Ears/Nose/Throat/Neck sinus congestion Ears/Nose/Throat/Neck No sore throat Cardiovascular No chest pain/pressure Cardiovascular No dyspnea 11/02/2015 Cardiovascular No edema 11/02/2015 Respiratory chest congestion 11/02/2015 Respiratory cough 11/02/2015 Respiratory No dyspnea 11/02/2015 Gastrointestinal No abdominal pain 2015 Gastrointestinal No constipation 2015 Gastrointestinal No diarrhea 11/02/2015 Gastrointestinal No nausea 11/02/2015 Gastrointestinal No vomiting 11/02/2015 Musculoskeletal stiffness 11/02/2015 Musculoskeletal arthralgia(s) 11/02/2015 Musculoskeletal back pain 11/02/2015 Neurologic No alteration of consciousness 11/02/2015 Psychiatric No anxiety 11/02/2015 Psychiatric No depression 11/02/2015 Constitutional recent illness 09/13/2015 Constitutional chills 09/13/2015 Constitutional fatigue 09/13/2015 Constitutional No fever 09/13/2015 Constitutional No insomnia 09/13/2015 Constitutional malaise 09/13/2015 Ears/Nose/Throat/Neck nasal allergies 01/2016 Ears/Nose/Throat/Neck nasal discharge 01/2016 Ears/Nose/Throat/Neck sinus congestion Cardiovascular No chest pain/pressure 01/2016 Cardiovascular No dyspnea 09/13/2015 Cardiovascular No edema 09/13/2015 Respiratory chest congestion 09/13/2015 Respiratory cough 09/13/2015 Respiratory No dyspnea 09/13/2015 Gastrointestinal No abdominal pain 2015 Gastrointestinal No constipation 2015 Gastrointestinal No diarrhea 09/13/2015 Gastrointestinal No nausea 09/13/2015 Gastrointestinal No vomiting 09/13/2015 Musculoskeletal stiffness 09/13/2015 Musculoskeletal arthralgia(s) 09/13/2015 Musculoskeletal back pain 09/13/2015 Psychiatric No anxiety 09/13/2015 Psychiatric No depression 09/13/2015 Ears/Nose/Throat/Neck sore throat 2015 Ears/Nose/Throat/Neck postnasal drip 01/2016 Ears/Nose/Throat/Neck otalgia 09/13/2015 Neurologic No alteration of consciousness 09/13/2015 Genitourinary/Nephrology urinary urgency 09/13/2015 Constitutional No recent illness 2014 Constitutional No chills 09/07/2015 Constitutional fatigue 09/07/2015 Constitutional No fever 09/07/2015 Constitutional No insomnia 09/07/2015 Constitutional malaise 09/07/2015 Cardiovascular No chest pain/pressure Cardiovascular No dyspnea 09/07/2015 Cardiovascular No edema 09/07/2015 Respiratory No cough 09/07/2015 Respiratory No dyspnea 09/07/2015 Gastrointestinal No abdominal pain 2014 Gastrointestinal No constipation 2014 Gastrointestinal No diarrhea 09/07/2015 Gastrointestinal No gastroesophageal reflux 09/07/2015 Gastrointestinal No nausea 09/07/2015 Gastrointestinal No vomiting 09/07/2015 Musculoskeletal stiffness 09/07/2015 Musculoskeletal arthralgia(s) 09/07/2015 Musculoskeletal back pain 09/07/2015 Dermatologic No scar 09/07/2015 Psychiatric No anxiety 09/07/2015 Psychiatric No depression 09/07/2015 Respiratory No chest congestion 2014 Ears/Nose/Throat/Neck nasal allergies Ears/Nose/Throat/Neck nasal discharge Ears/Nose/Throat/Neck sinus congestion Constitutional No recent illness 2014 Constitutional No chills 08/16/2015 Constitutional fatigue 08/16/2015 Constitutional No fever 08/16/2015 Constitutional No insomnia 08/16/2015 Constitutional malaise 08/16/2015 Cardiovascular No chest pain/pressure 04/2015 Cardiovascular No dyspnea 08/16/2015 Cardiovascular No edema 08/16/2015 Cardiovascular No exercise intolerance Cardiovascular No fatigue 08/16/2015 Cardiovascular No near-syncope/dizziness 08/16/2015 Respiratory No chest tightness 2014 Respiratory No cigarette smoking 2014 Respiratory No cough 08/16/2015 Respiratory No dyspnea 08/16/2015 Respiratory No pedal edema 08/16/2015 Respiratory No snoring 08/16/2015 Respiratory No wheezing 08/16/2015 Gastrointestinal No hemorrhoids 2014 Gastrointestinal No abdominal pain 2014 Gastrointestinal No constipation 2014 Gastrointestinal No diarrhea 08/16/2015 Gastrointestinal No gastroesophageal reflux 08/16/2015 Gastrointestinal No melena 08/16/2015 Gastrointestinal No nausea 08/16/2015 Gastrointestinal No vomiting 08/16/2015 Musculoskeletal stiffness 08/16/2015 Musculoskeletal arthralgia(s) 08/16/2015 Musculoskeletal back pain 08/16/2015 Dermatologic No rash 08/16/2015 Dermatologic No scar 08/16/2015 Psychiatric anxiety 08/16/2015 Psychiatric No depression 08/16/2015 Constitutional No anorexia 08/16/2015 Constitutional No night sweats 2014 Constitutional No diaphoresis 08/16/2015 Eyes No eye discharge 08/16/2015 Eyes No eye erythema 08/16/2015 Eyes No vision change 08/16/2015 Ears/Nose/Throat/Neck dizziness 2014 Ears/Nose/Throat/Neck headache 2014 Ears/Nose/Throat/Neck nasal allergies 04/2015 Ears/Nose/Throat/Neck nasal discharge 04/2015 Ears/Nose/Throat/Neck No otalgia 2014 Ears/Nose/Throat/Neck No sinus congestion 08/16/2015 Ears/Nose/Throat/Neck No sore throat 04/2015 Respiratory No productive sputum 2014 Respiratory No chest congestion 2014 Genitourinary/Nephrology No dysuria 08/16 Musculoskeletal joint complaint 2014 Neurologic No alteration of consciousness 08/16/2015 Constitutional No recent illness 2014 Constitutional No anorexia 06/13/2015 Constitutional No night sweats 2014 Constitutional No chills 06/13/2015 Constitutional No diaphoresis 06/13/2015 Constitutional fatigue 06/13/2015 Constitutional No fever 06/13/2015 Constitutional No insomnia 06/13/2015 Constitutional No malaise 06/13/2015 Constitutional No weight loss 06/13/2015 Constitutional No weight gain 06/13/2015 Eyes No eye discharge 06/13/2015 Eyes No eye erythema 06/13/2015 Eyes No vision change 06/13/2015 Ears/Nose/Throat/Neck dizziness 2014 Ears/Nose/Throat/Neck headache 2014 Ears/Nose/Throat/Neck nasal allergies 01/2015 Ears/Nose/Throat/Neck nasal discharge 01/2015 Ears/Nose/Throat/Neck No otalgia 2014 Ears/Nose/Throat/Neck No sore throat 01/2015 Ears/Nose/Throat/Neck No sinus congestion 06/13/2015 Cardiovascular No chest pain/pressure 01/2015 Cardiovascular No dyspnea 06/13/2015 Cardiovascular No edema 06/13/2015 Respiratory No productive sputum 2014 Respiratory No chest congestion 2014 Respiratory cough 06/13/2015 Gastrointestinal No abdominal pain 2014 Gastrointestinal No constipation 2014 Gastrointestinal No diarrhea 06/13/2015 Genitourinary/Nephrology No dysuria 06/13 Musculoskeletal joint complaint 2014 Dermatologic No rash 06/13/2015 Neurologic No alteration of consciousness 06/13/2015 Psychiatric anxiety 06/13/2015 Psychiatric depression 06/13/2015 Endocrine No dry or coarse skin 2014 Constitutional No recent illness 2014 Constitutional No chills 05/10/2015 Constitutional fatigue 05/10/2015 Constitutional No fever 05/10/2015 Constitutional No insomnia 05/10/2015 Constitutional malaise 05/10/2015 Cardiovascular No chest pain/pressure 09/2014 Cardiovascular No dyspnea 05/10/2015 Cardiovascular No edema 05/10/2015 Cardiovascular No exercise intolerance Cardiovascular No fatigue 05/10/2015 Cardiovascular No near-syncope/dizziness 05/10/2015 Respiratory No chest tightness 2014 Respiratory No cigarette smoking 2014 Respiratory No cough 05/10/2015 Respiratory No dyspnea 05/10/2015 Respiratory No pedal edema 05/10/2015 Respiratory No snoring 05/10/2015 Respiratory No wheezing 05/10/2015 Gastrointestinal No hemorrhoids 2014 Gastrointestinal No abdominal pain 2014 Gastrointestinal No constipation 2014 Gastrointestinal No diarrhea 05/10/2015 Gastrointestinal No gastroesophageal reflux 05/10/2015 Gastrointestinal No melena 05/10/2015 Gastrointestinal No nausea 05/10/2015 Gastrointestinal No vomiting 05/10/2015 Dermatologic rash 05/10/2015 Dermatologic No scar 05/10/2015 Psychiatric No anxiety 05/10/2015 Psychiatric No depression 05/10/2015 Musculoskeletal stiffness 05/10/2015 Musculoskeletal arthralgia(s) 05/10/2015 Musculoskeletal back pain 05/10/2015 Constitutional No fever 03/22/2015 Constitutional recent illness 03/22/2015 Constitutional No insomnia 03/22/2015 Gastrointestinal nausea 03/22/2015 Gastrointestinal No vomiting 03/22/2015 Genitourinary/Nephrology nocturia 2014 Genitourinary/Nephrology urinary frequency 03/22/2015 Cardiovascular No dyspnea 03/22/2015 Cardiovascular No chest pain/pressure Cardiovascular No fatigue 03/22/2015 Musculoskeletal back pain 03/22/2015 Respiratory No chest congestion 2014 Respiratory No cigarette smoking 2014 Respiratory No cough 03/22/2015 Dermatologic No rash 03/22/2015 Dermatologic No sores 03/22/2015 Neurologic headache 03/22/2015 Psychiatric anxiety 03/22/2015 Psychiatric depression 03/22/2015 Constitutional No anorexia 03/22/2015 Constitutional No night sweats 2014 Constitutional No chills 03/22/2015 Constitutional No diaphoresis 03/22/2015 Constitutional No fatigue 03/22/2015 Ears/Nose/Throat/Neck headache 2014 Ears/Nose/Throat/Neck No nasal allergies 03/22/2015 Ears/Nose/Throat/Neck No nasal discharge 03/22/2015 Ears/Nose/Throat/Neck No dizziness 2014 Constitutional No recent illness 2014 Constitutional No chills 01/17/2015 Constitutional fatigue 01/17/2015 Constitutional No fever 01/17/2015 Constitutional No insomnia 01/17/2015 Constitutional malaise 01/17/2015 Cardiovascular No chest pain/pressure 07/2015 Cardiovascular No dyspnea 01/17/2015 Cardiovascular No edema 01/17/2015 Cardiovascular No exercise intolerance Cardiovascular No fatigue 01/17/2015 Cardiovascular No near-syncope/dizziness 01/17/2015 Respiratory No chest tightness 2014 Respiratory No cigarette smoking 2014 Respiratory No cough 01/17/2015 Respiratory No dyspnea 01/17/2015 Respiratory No pedal edema 01/17/2015 Respiratory No snoring 01/17/2015 Respiratory No wheezing 01/17/2015 Gastrointestinal No hemorrhoids 2014 Gastrointestinal No abdominal pain 2014 Gastrointestinal No constipation 2014 Gastrointestinal No diarrhea 01/17/2015 Gastrointestinal No gastroesophageal reflux 01/17/2015 Gastrointestinal No melena 01/17/2015 Gastrointestinal No nausea 01/17/2015 Gastrointestinal No vomiting 01/17/2015 Dermatologic No rash 01/17/2015 Dermatologic No scar 01/17/2015 Psychiatric No anxiety 01/17/2015 Psychiatric No depression 01/17/2015 Ears/Nose/Throat/Neck No dental pain 07/2015 Ears/Nose/Throat/Neck No dizziness 2014 Ears/Nose/Throat/Neck No dysphagia 2014 Ears/Nose/Throat/Neck No headache 2014 Ears/Nose/Throat/Neck No hearing loss 07/2015 Ears/Nose/Throat/Neck No nasal allergies 01/17/2015 Ears/Nose/Throat/Neck No sore throat 07/2015 Ears/Nose/Throat/Neck No postnasal drip 01/17/2015 Ears/Nose/Throat/Neck No sinus congestion 01/17/2015 Musculoskeletal arthralgia(s) 01/17/2015 Musculoskeletal stiffness 01/17/2015 Musculoskeletal myalgias 01/17/2015 Gastrointestinal No vomiting 11/22/2014 Gastrointestinal nausea 11/22/2014 Constitutional recent illness 11/22/2014 Constitutional No anorexia 11/22/2014 Constitutional No night sweats 2014 Constitutional chills 11/22/2014 Constitutional diaphoresis 11/22/2014 Constitutional fatigue 11/22/2014 Constitutional No fever 11/22/2014 Constitutional No insomnia 11/22/2014 Constitutional No malaise 11/22/2014 Constitutional No weight loss 11/22/2014 Constitutional No weight gain 11/22/2014 Eyes No eye discharge 11/22/2014 Eyes No eye erythema 11/22/2014 Ears/Nose/Throat/Neck dizziness 2014 Ears/Nose/Throat/Neck headache 2014 Ears/Nose/Throat/Neck nasal allergies Ears/Nose/Throat/Neck nasal discharge Cardiovascular No chest pain/pressure Respiratory No cough 11/22/2014 Genitourinary/Nephrology No dysuria 11/22 Dermatologic No rash 11/22/2014 Constitutional No recent illness 2014 Constitutional No chills 10/27/2014 Constitutional fatigue 10/27/2014 Constitutional No fever 10/27/2014 Constitutional No insomnia 10/27/2014 Constitutional malaise 10/27/2014 Cardiovascular No chest pain/pressure Cardiovascular No dyspnea 10/27/2014 Cardiovascular No edema 10/27/2014 Cardiovascular No exercise intolerance Cardiovascular No fatigue 10/27/2014 Cardiovascular No near-syncope/dizziness 10/27/2014 Respiratory No chest tightness 2014 Respiratory No cigarette smoking 2014 Respiratory No cough 10/27/2014 Respiratory No dyspnea 10/27/2014 Respiratory No pedal edema 10/27/2014 Respiratory No snoring 10/27/2014 Respiratory No wheezing 10/27/2014 Gastrointestinal No hemorrhoids 2014 Gastrointestinal No abdominal pain 2014 Gastrointestinal No constipation 2014 Gastrointestinal No diarrhea 10/27/2014 Gastrointestinal No gastroesophageal reflux 10/27/2014 Gastrointestinal No melena 10/27/2014 Gastrointestinal No nausea 10/27/2014 Gastrointestinal No vomiting 10/27/2014 Psychiatric No anxiety 10/27/2014 Psychiatric No depression 10/27/2014 Dermatologic No rash 10/27/2014 Dermatologic No scar 10/27/2014 Constitutional recent illness 10/15/2014 Constitutional anorexia 10/15/2014 Constitutional No night sweats 2014 Constitutional chills 10/15/2014 Constitutional No diaphoresis 10/15/2014 Constitutional fatigue 10/15/2014 Constitutional No fever 10/15/2014 Constitutional No insomnia 10/15/2014 Constitutional No malaise 10/15/2014 Eyes No eye discharge 10/15/2014 Eyes No eye erythema 10/15/2014 Ears/Nose/Throat/Neck dizziness 2014 Ears/Nose/Throat/Neck headache 2014 Ears/Nose/Throat/Neck nasal allergies 02/2015 Ears/Nose/Throat/Neck nasal discharge 02/2015 Ears/Nose/Throat/Neck No otalgia 2014 Ears/Nose/Throat/Neck sinus congestion Ears/Nose/Throat/Neck No sore throat 02/2015 Cardiovascular No chest pain/pressure 02/2015 Cardiovascular No edema 10/15/2014 Respiratory No productive sputum 2014 Respiratory No chest congestion 2014 Respiratory cough 10/15/2014 Respiratory dyspnea on exertion 2014 Gastrointestinal vomiting 10/15/2014 Gastrointestinal No nausea 10/15/2014 Gastrointestinal No abdominal pain 2014 Genitourinary/Nephrology No dysuria 10/15 Musculoskeletal No joint complaint 2014 Dermatologic No sores 10/15/2014 Dermatologic No rash 10/15/2014 Neurologic No alteration of consciousness 10/15/2014 Neurologic dizziness 10/15/2014 Gastrointestinal No constipation 2014 Gastrointestinal No diarrhea 10/15/2014 Constitutional recent illness 09/30/2014 Constitutional No anorexia 09/30/2014 Constitutional No night sweats 2014 Constitutional No chills 09/30/2014 Constitutional No diaphoresis 09/30/2014 Constitutional fatigue 09/30/2014 Constitutional No fever 09/30/2014 Constitutional No insomnia 09/30/2014 Eyes No eye discharge 09/30/2014 Eyes No eye erythema 09/30/2014 Ears/Nose/Throat/Neck No dizziness 2014 Ears/Nose/Throat/Neck headache 2014 Ears/Nose/Throat/Neck nasal allergies Ears/Nose/Throat/Neck nasal discharge Ears/Nose/Throat/Neck No otitis media Ears/Nose/Throat/Neck sinus congestion Respiratory No productive sputum 2014 Respiratory No chest congestion 2014 Respiratory cough 09/30/2014 Gastrointestinal No abdominal pain 2014 Gastrointestinal No constipation 2014 Gastrointestinal No diarrhea 09/30/2014 Gastrointestinal gastroesophageal reflux 09/30/2014 Gastrointestinal No nausea 09/30/2014 Gastrointestinal No vomiting 09/30/2014 Genitourinary/Nephrology No dysuria 09/30 Musculoskeletal No joint complaint 2014 Dermatologic No rash 09/30/2014 Dermatologic No sores 09/30/2014 Neurologic No alteration of consciousness 09/30/2014 Neurologic No dizziness 09/30/2014 Psychiatric No anxiety 09/30/2014 Endocrine No dry or coarse skin 2014 Endocrine polydipsia 09/30/2014 Endocrine sweating 09/30/2014 Cardiovascular hypertension 09/30/2014 Constitutional recent illness 07/14/2014 Constitutional No anorexia 07/14/2014 Constitutional No night sweats 2013 Constitutional No chills 07/14/2014 Constitutional diaphoresis 07/14/2014 Constitutional fatigue 07/14/2014 Constitutional No fever 07/14/2014 Constitutional No insomnia 07/14/2014 Eyes No eye discharge 07/14/2014 Eyes No eye erythema 07/14/2014 Eyes No vision change 07/14/2014 Ears/Nose/Throat/Neck dizziness 2013 Ears/Nose/Throat/Neck No sore throat 01/2014 Ears/Nose/Throat/Neck No otalgia 2013 Respiratory No productive sputum 2013 Respiratory No chest congestion 2013 Gastrointestinal No abdominal pain 2013 Gastrointestinal No constipation 2013 Gastrointestinal No diarrhea 07/14/2014 Gastrointestinal nausea 07/14/2014 Gastrointestinal No vomiting 07/14/2014 Genitourinary/Nephrology No dysuria 07/14 Musculoskeletal arthralgia(s) 07/14/2014 Musculoskeletal No back pain 07/14/2014 Musculoskeletal joint complaint 2013 Musculoskeletal shoulder pain 07/14/2014 Dermatologic No rash 07/14/2014 Dermatologic No sores 07/14/2014 Neurologic dizziness 07/14/2014 Neurologic No memory loss 07/14/2014 Neurologic No mental status change 2013 Neurologic No speech difficulties 2013 Neurologic No vision change 07/14/2014 Psychiatric anxiety 07/14/2014 Psychiatric depression 07/14/2014 Endocrine No cold sensitivity 07/14/2014 Endocrine No dry or coarse skin 2013 Endocrine No hair loss 07/14/2014 Endocrine sweating 07/14/2014 Endocrine weakness 07/14/2014 Constitutional recent illness 06/23/2014 Constitutional No anorexia 06/23/2014 Constitutional No night sweats 2013 Constitutional No chills 06/23/2014 Constitutional No diaphoresis 06/23/2014 Constitutional fatigue 06/23/2014 Constitutional No fever 06/23/2014 Constitutional No insomnia 06/23/2014 Eyes No eye discharge 06/23/2014 Eyes No eye erythema 06/23/2014 Ears/Nose/Throat/Neck No dizziness 2013 Ears/Nose/Throat/Neck headache 2013 Ears/Nose/Throat/Neck nasal allergies Ears/Nose/Throat/Neck nasal discharge Ears/Nose/Throat/Neck No otitis media Ears/Nose/Throat/Neck sinus congestion Respiratory No productive sputum 2013 Respiratory No chest congestion 2013 Respiratory cough 06/23/2014 Gastrointestinal No abdominal pain 2013 Gastrointestinal No constipation 2013 Gastrointestinal No diarrhea 06/23/2014 Gastrointestinal No nausea 06/23/2014 Gastrointestinal No vomiting 06/23/2014 Genitourinary/Nephrology No dysuria 06/23 Musculoskeletal No joint complaint 2013 Dermatologic No rash 06/23/2014 Dermatologic No sores 06/23/2014 Neurologic No alteration of consciousness 06/23/2014 Neurologic No dizziness 06/23/2014 Psychiatric No anxiety 06/23/2014 Endocrine No dry or coarse skin 2013 Endocrine polydipsia 06/23/2014 Endocrine sweating 06/23/2014 Gastrointestinal gastroesophageal reflux 06/23/2014 Gastrointestinal No constipation 2013 Gastrointestinal No diarrhea 04/09/2014 Gastrointestinal abdominal pain 2013 Gastrointestinal No vomiting 04/09/2014 Gastrointestinal nausea 04/09/2014 Gastrointestinal gastroesophageal reflux 04/09/2014 Gastrointestinal gas and bloating 2013 Genitourinary/Nephrology No dysuria 04/09 Constitutional recent illness 04/09/2014 Constitutional No anorexia 04/09/2014 Constitutional diaphoresis 04/09/2014 Constitutional chills 04/09/2014 Constitutional fatigue 04/09/2014 Constitutional No fever 04/09/2014 Eyes No eye discharge 04/09/2014 Eyes No eye erythema 04/09/2014 Ears/Nose/Throat/Neck dizziness 2013 Ears/Nose/Throat/Neck headache 2013 Respiratory No productive sputum 2013 Respiratory No chest congestion 2013 Respiratory cough 04/09/2014 Dermatologic No sores 04/09/2014 Dermatologic No rash 04/09/2014 Musculoskeletal No joint complaint 2013 Neurologic No alteration of consciousness 04/09/2014 Constitutional recent illness 03/16/2014 Constitutional No anorexia 03/16/2014 Constitutional No night sweats 2013 Constitutional No chills 03/16/2014 Constitutional diaphoresis 03/16/2014 Constitutional fatigue 03/16/2014 Constitutional No fever 03/16/2014 Constitutional No insomnia 03/16/2014 Eyes No eye discharge 03/16/2014 Eyes No eye erythema 03/16/2014 Eyes No vision change 03/16/2014 Ears/Nose/Throat/Neck dizziness 2013 Ears/Nose/Throat/Neck No otalgia 2013 Ears/Nose/Throat/Neck No sore throat 04/2014 Respiratory No productive sputum 2013 Respiratory No chest congestion 2013 Gastrointestinal No abdominal pain 2013 Gastrointestinal No constipation 2013 Gastrointestinal No diarrhea 03/16/2014 Gastrointestinal No nausea 03/16/2014 Gastrointestinal No vomiting 03/16/2014 Genitourinary/Nephrology No dysuria 03/16 Musculoskeletal arthralgia(s) 03/16/2014 Musculoskeletal No back pain 03/16/2014 Musculoskeletal joint complaint 2013 Musculoskeletal shoulder pain 03/16/2014 Dermatologic No rash 03/16/2014 Dermatologic No sores 03/16/2014 Neurologic dizziness 03/16/2014 Neurologic No memory loss 03/16/2014 Neurologic No mental status change 2013 Neurologic No speech difficulties 2013 Neurologic No vision change 03/16/2014 Psychiatric anxiety 03/16/2014 Psychiatric depression 03/16/2014 Endocrine No dry or coarse skin 2013 Endocrine No cold sensitivity 03/16/2014 Endocrine No hair loss 03/16/2014 Endocrine sweating 03/16/2014 Endocrine weakness 03/16/2014 Constitutional recent illness 01/12/2014 Constitutional No anorexia 01/12/2014 Constitutional No night sweats 2013 Constitutional No chills 01/12/2014 Constitutional No diaphoresis 01/12/2014 Constitutional fatigue 01/12/2014 Constitutional No fever 01/12/2014 Constitutional No insomnia 01/12/2014 Eyes No eye discharge 01/12/2014 Eyes No eye erythema 01/12/2014 Ears/Nose/Throat/Neck No dizziness 2013 Ears/Nose/Throat/Neck headache 2013 Ears/Nose/Throat/Neck nasal allergies 02/2014 Ears/Nose/Throat/Neck nasal discharge 02/2014 Ears/Nose/Throat/Neck No otitis media 02/2014 Ears/Nose/Throat/Neck sinus congestion Respiratory No productive sputum 2013 Respiratory No chest congestion 2013 Respiratory cough 01/12/2014 Gastrointestinal No abdominal pain 2013 Gastrointestinal No constipation 2013 Gastrointestinal No diarrhea 01/12/2014 Gastrointestinal No nausea 01/12/2014 Gastrointestinal No vomiting 01/12/2014 Genitourinary/Nephrology No dysuria 01/12 Musculoskeletal No joint complaint 2013 Dermatologic No rash 01/12/2014 Dermatologic No sores 01/12/2014 Neurologic No alteration of consciousness 01/12/2014 Neurologic No dizziness 01/12/2014 Psychiatric No anxiety 01/12/2014 Endocrine No dry or coarse skin 2013 Endocrine polydipsia 01/12/2014 Endocrine sweating 01/12/2014 Constitutional recent illness 12/15/2013 Constitutional No anorexia 12/15/2013 Constitutional No night sweats 2013 Constitutional No chills 12/15/2013 Constitutional No diaphoresis 12/15/2013 Constitutional fatigue 12/15/2013 Constitutional No fever 12/15/2013 Constitutional No insomnia 12/15/2013 Eyes No eye discharge 12/15/2013 Eyes No eye erythema 12/15/2013 Ears/Nose/Throat/Neck No dizziness 2013 Ears/Nose/Throat/Neck headache 2013 Ears/Nose/Throat/Neck nasal allergies 04/2014 Ears/Nose/Throat/Neck nasal discharge 04/2014 Ears/Nose/Throat/Neck No otitis media 04/2014 Ears/Nose/Throat/Neck sinus congestion Respiratory No productive sputum 2013 Respiratory No chest congestion 2013 Respiratory cough 12/15/2013 Gastrointestinal No abdominal pain 2013 Gastrointestinal No constipation 2013 Gastrointestinal No diarrhea 12/15/2013 Gastrointestinal No vomiting 12/15/2013 Gastrointestinal No nausea 12/15/2013 Genitourinary/Nephrology No dysuria 12/15 Musculoskeletal No joint complaint 2013 Dermatologic No sores 12/15/2013 Dermatologic No rash 12/15/2013 Neurologic No alteration of consciousness 12/15/2013 Neurologic No dizziness 12/15/2013 Psychiatric No anxiety 12/15/2013 Endocrine sweating 12/15/2013 Endocrine polydipsia 12/15/2013 Endocrine No dry or coarse skin 2013 Constitutional No anorexia 10/20/2013 Constitutional No night sweats 2013 Constitutional No chills 10/20/2013 Constitutional No fever 10/20/2013 Constitutional No insomnia 10/20/2013 Eyes No eye discharge 10/20/2013 Eyes No eye erythema 10/20/2013 Eyes No vision change 10/20/2013 Ears/Nose/Throat/Neck No sore throat 07/2014 Ears/Nose/Throat/Neck No otalgia 2013 Respiratory No productive sputum 2013 Respiratory No chest congestion 2013 Genitourinary/Nephrology No dysuria 10/20 Musculoskeletal arthralgia(s) 10/20/2013 Musculoskeletal back pain 10/20/2013 Musculoskeletal joint complaint 2013 Neurologic dizziness 10/20/2013 Neurologic No memory loss 10/20/2013 Neurologic No mental status change 2013 Neurologic No speech difficulties 2013 Neurologic No vision change 10/20/2013 Psychiatric anxiety 10/20/2013 Psychiatric depression 10/20/2013 Endocrine No cold sensitivity 10/20/2013 Endocrine No dry or coarse skin 2013 Endocrine No hair loss 10/20/2013 Endocrine sweating 10/20/2013 Endocrine weakness 10/20/2013 Constitutional recent illness 09/15/2013 Constitutional No anorexia 09/15/2013 Constitutional No night sweats 2013 Constitutional No chills 09/15/2013 Constitutional diaphoresis 09/15/2013 Constitutional No fatigue 09/15/2013 Constitutional No fever 09/15/2013 Constitutional No insomnia 09/15/2013 Eyes No eye discharge 09/15/2013 Eyes No eye erythema 09/15/2013 Ears/Nose/Throat/Neck No dizziness 2013 Ears/Nose/Throat/Neck headache 2013 Ears/Nose/Throat/Neck nasal allergies 03/2014 Ears/Nose/Throat/Neck sinus congestion Ears/Nose/Throat/Neck sore throat 2013 Cardiovascular No chest pain/pressure 03/2014 Gastrointestinal nausea 09/15/2013 Gastrointestinal No vomiting 09/15/2013 Genitourinary/Nephrology No dysuria 09/15 Musculoskeletal No joint complaint 2013 Dermatologic No rash 09/15/2013 Dermatologic No sores 09/15/2013 Constitutional No anorexia 07/27/2013 Constitutional No night sweats 2012 Constitutional No chills 07/27/2013 Constitutional No fever 07/27/2013 Constitutional No insomnia 07/27/2013 Eyes No eye discharge 07/27/2013 Eyes No eye erythema 07/27/2013 Eyes No vision change 07/27/2013 Ears/Nose/Throat/Neck No sore throat Ears/Nose/Throat/Neck No otalgia 2012 Respiratory No productive sputum 2012 Respiratory No chest congestion 2012 Respiratory cough 07/27/2013 Genitourinary/Nephrology No dysuria 07/27 Musculoskeletal arthralgia(s) 07/27/2013 Musculoskeletal back pain 07/27/2013 Musculoskeletal joint complaint 2012 Dermatologic No rash 07/27/2013 Dermatologic No sores 07/27/2013 Neurologic dizziness 07/27/2013 Neurologic No memory loss 07/27/2013 Neurologic No mental status change 2012 Neurologic No speech difficulties 2012 Neurologic No vision change 07/27/2013 Psychiatric anxiety 07/27/2013 Psychiatric depression 07/27/2013 Endocrine No cold sensitivity 07/27/2013 Endocrine No dry or coarse skin 2012 Endocrine No hair loss 07/27/2013 Endocrine sweating 07/27/2013 Endocrine weakness 07/27/2013 Constitutional recent illness 06/09/2013 Constitutional No anorexia 06/09/2013 Constitutional No night sweats 2012 Constitutional No chills 06/09/2013 Constitutional diaphoresis 06/09/2013 Constitutional No fatigue 06/09/2013 Constitutional No fever 06/09/2013 Constitutional No insomnia 06/09/2013 Eyes No eye discharge 06/09/2013 Eyes No eye erythema 06/09/2013 Ears/Nose/Throat/Neck No dizziness 2012 Ears/Nose/Throat/Neck headache 2012 Ears/Nose/Throat/Neck nasal allergies 09/2012 Ears/Nose/Throat/Neck sore throat 2012 Ears/Nose/Throat/Neck sinus congestion Cardiovascular No chest pain/pressure 09/2012 Gastrointestinal nausea 06/09/2013 Gastrointestinal No vomiting 06/09/2013 Genitourinary/Nephrology No dysuria 06/09 Musculoskeletal No joint complaint 2012 Dermatologic No rash 06/09/2013 Dermatologic No sores 06/09/2013 Cardiovascular No chest pain/pressure 08/2013 Constitutional No recent illness 2012 Constitutional No anorexia 04/20/2013 Constitutional No night sweats 2012 Constitutional No chills 04/20/2013 Constitutional No diaphoresis 04/20/2013 Constitutional No fatigue 04/20/2013 Constitutional No fever 04/20/2013 Constitutional No insomnia 04/20/2013 Constitutional No malaise 04/20/2013 Eyes No eye erythema 04/20/2013 Eyes No eye discharge 04/20/2013 Eyes No vision change 04/20/2013 Ears/Nose/Throat/Neck dizziness 2012 Ears/Nose/Throat/Neck headache 2012 Ears/Nose/Throat/Neck nasal allergies 08/2013 Ears/Nose/Throat/Neck nasal discharge 08/2013 Ears/Nose/Throat/Neck sinus congestion Ears/Nose/Throat/Neck No otalgia 2012 Respiratory No cough 04/20/2013 Gastrointestinal No constipation 2012 Gastrointestinal No diarrhea 04/20/2013 Genitourinary/Nephrology No dysuria 04/20 Dermatologic No rash 04/20/2013 Dermatologic No sores 04/20/2013 Neurologic gait abnormality 04/20/2013 Constitutional No anorexia 03/23/2013 Constitutional No night sweats 2012 Constitutional No chills 03/23/2013 Constitutional No fever 03/23/2013 Constitutional No insomnia 03/23/2013 Eyes No eye discharge 03/23/2013 Eyes No eye erythema 03/23/2013 Eyes No vision change 03/23/2013 Ears/Nose/Throat/Neck No sore throat Ears/Nose/Throat/Neck No otalgia 2012 Respiratory No productive sputum 2012 Respiratory No chest congestion 2012 Respiratory cough 03/23/2013 Genitourinary/Nephrology No dysuria 03/23 Musculoskeletal arthralgia(s) 03/23/2013 Musculoskeletal back pain 03/23/2013 Musculoskeletal joint complaint 2012 Dermatologic No rash 03/23/2013 Dermatologic No sores 03/23/2013 Neurologic dizziness 03/23/2013 Neurologic No memory loss 03/23/2013 Neurologic No mental status change 2012 Neurologic No speech difficulties 2012 Neurologic No vision change 03/23/2013 Psychiatric anxiety 03/23/2013 Psychiatric depression 03/23/2013 Endocrine No cold sensitivity 03/23/2013 Endocrine No dry or coarse skin 2012 Endocrine No hair loss 03/23/2013 Endocrine sweating 03/23/2013 Endocrine weakness 03/23/2013 Constitutional No anorexia 01/21/2013 Constitutional No night sweats 2012 Constitutional No chills 01/21/2013 Constitutional No fever 01/21/2013 Constitutional No insomnia 01/21/2013 Eyes No eye discharge 01/21/2013 Eyes No eye erythema 01/21/2013 Eyes No vision change 01/21/2013 Ears/Nose/Throat/Neck No sore throat Ears/Nose/Throat/Neck No otalgia 2012 Respiratory No productive sputum 2012 Respiratory No chest congestion 2012 Respiratory cough 01/21/2013 Genitourinary/Nephrology No dysuria 01/21 Musculoskeletal arthralgia(s) 01/21/2013 Musculoskeletal back pain 01/21/2013 Musculoskeletal joint complaint 2012 Musculoskeletal shoulder pain 01/21/2013 Dermatologic No rash 01/21/2013 Dermatologic No sores 01/21/2013 Psychiatric anxiety 01/21/2013 Psychiatric depression 01/21/2013 Endocrine No cold sensitivity 01/21/2013 Endocrine No dry or coarse skin 2012 Endocrine No hair loss 01/21/2013 Endocrine sweating 01/21/2013 Endocrine weakness 01/21/2013 Constitutional No anorexia 12/25/2012 Constitutional No night sweats 2012 Constitutional No chills 12/25/2012 Constitutional No fever 12/25/2012 Constitutional No insomnia 12/25/2012 Eyes No eye discharge 12/25/2012 Eyes No eye erythema 12/25/2012 Eyes No vision change 12/25/2012 Ears/Nose/Throat/Neck No sore throat Ears/Nose/Throat/Neck No otalgia 2012 Respiratory No productive sputum 2012 Respiratory No chest congestion 2012 Gastrointestinal No abdominal pain 2012 Gastrointestinal No constipation 2012 Gastrointestinal No diarrhea 12/25/2012 Gastrointestinal No nausea 12/25/2012 Gastrointestinal No vomiting 12/25/2012 Musculoskeletal arthralgia(s) 12/25/2012 Musculoskeletal back pain 12/25/2012 Musculoskeletal joint complaint 2012 Musculoskeletal shoulder pain 12/25/2012 Dermatologic No rash 12/25/2012 Dermatologic No sores 12/25/2012 Neurologic dizziness 12/25/2012 Neurologic No memory loss 12/25/2012 Neurologic No mental status change 2012 Neurologic No speech difficulties 2012 Neurologic No vision change 12/25/2012 Psychiatric anxiety 12/25/2012 Psychiatric depression 12/25/2012 Endocrine No cold sensitivity 12/25/2012 Endocrine No dry or coarse skin 2012 Endocrine No hair loss 12/25/2012 Endocrine sweating 12/25/2012 Endocrine weakness 12/25/2012 Constitutional No anorexia 10/20/2012 Constitutional No night sweats 2012 Constitutional No chills 10/20/2012 Constitutional No fever 10/20/2012 Constitutional No insomnia 10/20/2012 Eyes No eye discharge 10/20/2012 Eyes No eye erythema 10/20/2012 Endocrine weakness 10/20/2012 Eyes No vision change 10/20/2012 Ears/Nose/Throat/Neck No sore throat 07/2013 Ears/Nose/Throat/Neck No otalgia 2012 Respiratory No productive sputum 2012 Respiratory No chest congestion 2012 Respiratory cough 10/20/2012 Genitourinary/Nephrology No dysuria 10/20 Musculoskeletal arthralgia(s) 10/20/2012 Musculoskeletal back pain 10/20/2012 Musculoskeletal joint complaint 2012 Musculoskeletal shoulder pain 10/20/2012 Dermatologic No rash 10/20/2012 Dermatologic No sores 10/20/2012 Neurologic dizziness 10/20/2012 Neurologic No memory loss 10/20/2012 Neurologic No mental status change 2012 Neurologic No speech difficulties 2012 Neurologic No vision change 10/20/2012 Psychiatric anxiety 10/20/2012 Psychiatric depression 10/20/2012 Endocrine No cold sensitivity 10/20/2012 Endocrine No dry or coarse skin 2012 Endocrine No hair loss 10/20/2012 Endocrine sweating 10/20/2012 Constitutional No anorexia 08/11/2012 Constitutional No night sweats 2011 Constitutional No chills 08/11/2012 Constitutional No fever 08/11/2012 Constitutional No insomnia 08/11/2012 Eyes No eye discharge 08/11/2012 Eyes No eye erythema 08/11/2012 Eyes No vision change 08/11/2012 Ears/Nose/Throat/Neck No otalgia 2011 Ears/Nose/Throat/Neck No sore throat 11/2011 Respiratory No productive sputum 2011 Respiratory No chest congestion 2011 Respiratory cough 08/11/2012 Gastrointestinal No abdominal pain 2011 Gastrointestinal No constipation 2011 Gastrointestinal No diarrhea 08/11/2012 Gastrointestinal No nausea 08/11/2012 Gastrointestinal No vomiting 08/11/2012 Genitourinary/Nephrology No dysuria 08/11 Musculoskeletal arthralgia(s) 08/11/2012 Musculoskeletal joint complaint 2011 Musculoskeletal shoulder pain 08/11/2012 Dermatologic No rash 08/11/2012 Dermatologic No sores 08/11/2012 Neurologic dizziness 08/11/2012 Neurologic No memory loss 08/11/2012 Neurologic No mental status change 2011 Neurologic No speech difficulties 2011 Neurologic No vision change 08/11/2012 Psychiatric anxiety 08/11/2012 Psychiatric depression 08/11/2012 Endocrine No dry or coarse skin 2011 Endocrine No cold sensitivity 08/11/2012 Endocrine No hair loss 08/11/2012 Endocrine sweating 08/11/2012 Endocrine weakness 08/11/2012 Musculoskeletal back pain 08/11/2012 Constitutional recent illness 07/10/2012 Constitutional No anorexia 07/10/2012 Constitutional No night sweats 2011 Constitutional No chills 07/10/2012 Constitutional diaphoresis 07/10/2012 Constitutional fatigue 07/10/2012 Constitutional No fever 07/10/2012 Endocrine No hair loss 07/10/2012 Endocrine sweating 07/10/2012 Endocrine weakness 07/10/2012 Neurologic dizziness 07/10/2012 Neurologic No memory loss 07/10/2012 Neurologic No mental status change 2011 Neurologic No vision change 07/10/2012 Neurologic No speech difficulties 2011 Constitutional No insomnia 07/10/2012 Eyes No eye discharge 07/10/2012 Eyes No eye erythema 07/10/2012 Eyes No vision change 07/10/2012 Ears/Nose/Throat/Neck dizziness 2011 Ears/Nose/Throat/Neck No sore throat 09/2011 Ears/Nose/Throat/Neck sinus congestion Ears/Nose/Throat/Neck No otalgia 2011 Respiratory No productive sputum 2011 Respiratory No chest congestion 2011 Respiratory cough 07/10/2012 Gastrointestinal No abdominal pain 2011 Gastrointestinal No constipation 2011 Gastrointestinal No diarrhea 07/10/2012 Gastrointestinal No nausea 07/10/2012 Gastrointestinal No vomiting 07/10/2012 Genitourinary/Nephrology No dysuria 07/10 Musculoskeletal joint complaint 2011 Musculoskeletal shoulder pain 07/10/2012 Musculoskeletal arthralgia(s) 07/10/2012 Musculoskeletal No back pain 07/10/2012 Dermatologic No sores 07/10/2012 Dermatologic No rash 07/10/2012 Psychiatric anxiety 07/10/2012 Psychiatric depression 07/10/2012 Endocrine No dry or coarse skin 2011 Endocrine No cold sensitivity 07/10/2012 Physical Exam Exam Name System Name Item Name Status Result Effective Dates Notes Full Exam - General 1994 Constitutional general appearance Development: well developed 12/11/2018 None Full Exam - General 1994 Constitutional general appearance Development: appears stated age 0412/11/2018 None Full Exam - General 1994 Constitutional general appearance Hygiene/Attention to Grooming: good hygiene 12/11/2018 None Full Exam - General 1994 Eyes conjunctiva /eyelids Overall: conjunctiva clear 12/11/2018 None Full Exam - General 1994 Eyes conjunctiva /eyelids Overall: cornea clear 12/11/2018 None Full Exam - General 1994 Eyes conjunctiva /eyelids Overall: eyelids normal 12/11/2018 None Full Exam - General 1994 Eyes pupils and irises Overall: pupils equal, round, reactive to light and accomodation 12/11/2018 None Full Exam - General 1994 Ears/Nose/Throat lips/teeth/gingiva Overall: benign lips 12/11/2018 None Full Exam - General 1994 Ears/Nose/Throat lips/teeth/gingiva Overall: normal dentition 12/11/2018 None Full Exam - General 1994 Ears/Nose/Throat oral cavity/pharynx/larynx Overall: oral mucosa clear 12/11/2018 None Full Exam - General 1994 Ears/Nose/Throat oral cavity/pharynx/larynx Overall: oropharyngeal mucosa clear 12/11/2018 None Full Exam - General 1994 Ears/Nose/Throat oral cavity/pharynx/larynx Overall: hypopharynx benign 12/11/2018 None Full Exam - General 1994 Ears/Nose/Throat oral cavity/pharynx/larynx Overall: no masses 12/11/2018 None Full Exam - General 1994 Respiratory auscultation Overall: breath sounds clear bilaterally 12/11/2018 None Full Exam - General 1994 Respiratory respiratory effort/rhythm Overall: no retractions 12/11/2018 None Full Exam - General 1994 Respiratory respiratory effort/rhythm Overall: normal rate 12/11/2018 None Full Exam - Cardiology Abdomen abdominal exam Contour: rounded 12/11/2018 None Full Exam - General 1994 Cardiovascular extremities Overall: no clubbing 12/11/2018 None Full Exam - General 1994 Cardiovascular auscultation of heart Overall: regular rate 12/11/2018 None Full Exam - General 1994 Cardiovascular auscultation of heart Overall: normal heart sounds 12/11/2018 None Full Exam - Cardiology Integument inspection/palpation Overall: no rash, lesions 12/11/2018 None Full Exam - General 1994 Psychiatric orientation/consciousness Overall: oriented to person, place and time 12/11/2018 None Full Exam - General 1994 Psychiatric mood and affect Overall: normal mood and affect 12/11/2018 None Full Exam - Cardiology Abdomen abdominal exam Overall: normal bowel sounds 12/11/2018 None Full Exam - Cardiology Abdomen abdominal exam Epigastric: tender to palpation 12/11/2018 None Full Exam - Cardiology Abdomen abdominal exam Epigastric: sharp pain 12/11/2018 None Full Exam - General 1994 Constitutional general appearance Development: well developed 11/18/2018 None Full Exam - General 1994 Constitutional general appearance Development: appears stated age 0311/18/2018 None Full Exam - General 1994 Constitutional general appearance Hygiene/Attention to Grooming: good hygiene 11/18/2018 None Full Exam - General 1994 Eyes conjunctiva /eyelids Overall: conjunctiva clear 11/18/2018 None Full Exam - General 1994 Eyes conjunctiva /eyelids Overall: cornea clear 11/18/2018 None Full Exam - General 1994 Eyes conjunctiva /eyelids Overall: eyelids normal 11/18/2018 None Full Exam - General 1994 Eyes pupils and irises Overall: pupils equal, round, reactive to light and accomodation 11/18/2018 None Full Exam - General 1994 Ears/Nose/Throat lips/teeth/gingiva Overall: benign lips 11/18/2018 None Full Exam - General 1994 Ears/Nose/Throat lips/teeth/gingiva Overall: normal dentition 11/18/2018 None Full Exam - General 1994 Ears/Nose/Throat oral cavity/pharynx/larynx Overall: oral mucosa clear 11/18/2018 None Full Exam - General 1995 Ears/Nose/Throat oral cavity/pharynx/larynx Overall: oropharyngeal mucosa clear 11/18/2018 None Full Exam - General 1994 Ears/Nose/Throat oral cavity/pharynx/larynx Overall: hypopharynx benign 11/18/2018 None Full Exam - General 1994 Ears/Nose/Throat oral cavity/pharynx/larynx Overall: no masses 11/18/2018 None Full Exam - General 1994 Respiratory auscultation Overall: breath sounds clear bilaterally 11/18/2018 None Full Exam - General 1994 Respiratory respiratory effort/rhythm Overall: no retractions 11/18/2018 None Full Exam - General 1994 Respiratory respiratory effort/rhythm Overall: normal rate 11/18/2018 None Full Exam - General 1994 Cardiovascular extremities Overall: no clubbing 11/18/2018 None Full Exam - General 1994 Cardiovascular auscultation of heart Overall: regular rate 11/18/2018 None Full Exam - General 1994 Cardiovascular auscultation of heart Overall: normal heart sounds 11/18/2018 None Full Exam - General 1994 Psychiatric orientation/consciousness Overall: oriented to person, place and time 11/18/2018 None Full Exam - General 1994 Psychiatric mood and affect Overall: normal mood and affect 11/18/2018 None Full Exam - Cardiology Integument inspection/palpation Overall: no rash, lesions 11/18/2018 None Full Exam - Cardiology Abdomen abdominal exam Contour: rounded 11/18/2018 None Full Exam - Cardiology Abdomen abdominal exam Bowel sounds: hyperactive 11/18/2018 None Full Exam - General 1994 Constitutional general appearance Development: well developed 10/02/2018 None Full Exam - General 1994 Constitutional general appearance Development: appears stated age 0110/02/2018 None Full Exam - General 1994 Constitutional general appearance Hygiene/Attention to Grooming: good hygiene 10/02/2018 None Full Exam - General 1994 Eyes conjunctiva /eyelids Overall: conjunctiva clear 10/02/2018 None Full Exam - General 1994 Eyes conjunctiva /eyelids Overall: cornea clear 10/02/2018 None Full Exam - General 1994 Eyes conjunctiva /eyelids Overall: eyelids normal 10/02/2018 None Full Exam - General 1994 Eyes pupils and irises Overall: pupils equal, round, reactive to light and accomodation 10/02/2018 None Full Exam - General 1994 Ears/Nose/Throat lips/teeth/gingiva Overall: benign lips 10/02/2018 None Full Exam - General 1995 Ears/Nose/Throat lips/teeth/gingiva Overall: normal dentition 10/02/2018 None Full Exam - General 1994 Ears/Nose/Throat oral cavity/pharynx/larynx Overall: oral mucosa clear 10/02/2018 None Full Exam - General 1994 Ears/Nose/Throat oral cavity/pharynx/larynx Overall: oropharyngeal mucosa clear 10/02/2018 None Full Exam - General 1994 Ears/Nose/Throat oral cavity/pharynx/larynx Overall: hypopharynx benign 10/02/2018 None Full Exam - General 1994 Ears/Nose/Throat oral cavity/pharynx/larynx Overall: no masses 10/02/2018 None Full Exam - General 1994 Respiratory auscultation Overall: breath sounds clear bilaterally 10/02/2018 None Full Exam - General 1994 Respiratory respiratory effort/rhythm Overall: no retractions 10/02/2018 None Full Exam - General 1994 Respiratory respiratory effort/rhythm Overall: normal rate 10/02/2018 None Full Exam - General 1994 Cardiovascular extremities Overall: no clubbing 10/02/2018 None Full Exam - General 1994 Cardiovascular auscultation of heart Overall: regular rate 10/02/2018 None Full Exam - General 1994 Cardiovascular auscultation of heart Overall: normal heart sounds 10/02/2018 None Full Exam - General 1994 Abdomen abdominal exam Overall: no tenderness 10/02/2018 None Full Exam - General 1994 Abdomen abdominal exam Overall: normal bowel sounds 10/02/2018 None Full Exam - General 1994 Psychiatric orientation/consciousness Overall: oriented to person, place and time 10/02/2018 None Full Exam - General 1994 Psychiatric mood and affect Overall: normal mood and affect 10/02/2018 None Full Exam - General 1994 Constitutional general appearance Development: well developed 08/06/2018 None Full Exam - General 1994 Constitutional general appearance Development: appears stated age 1108/06/2018 None Full Exam - General 1994 Constitutional general appearance Hygiene/Attention to Grooming: good hygiene 08/06/2018 None Full Exam - General 1994 Eyes conjunctiva /eyelids Overall: conjunctiva clear 08/06/2018 None Full Exam - General 1994 Eyes conjunctiva /eyelids Overall: cornea clear 08/06/2018 None Full Exam - General 1994 Eyes conjunctiva /eyelids Overall: eyelids normal 08/06/2018 None Full Exam - General 1994 Eyes pupils and irises Overall: pupils equal, round, reactive to light and accomodation 08/06/2018 None Full Exam - General 1994 Ears/Nose/Throat lips/teeth/gingiva Overall: benign lips 08/06/2018 None Full Exam - General 1994 Ears/Nose/Throat lips/teeth/gingiva Overall: normal dentition 08/06/2018 None Full Exam - General 1994 Ears/Nose/Throat oral cavity/pharynx/larynx Overall: oral mucosa clear 08/06/2018 None Full Exam - General 1994 Ears/Nose/Throat oral cavity/pharynx/larynx Overall: oropharyngeal mucosa clear 08/06/2018 None Full Exam - General 1994 Ears/Nose/Throat oral cavity/pharynx/larynx Overall: hypopharynx benign 08/06/2018 None Full Exam - General 1994 Ears/Nose/Throat oral cavity/pharynx/larynx Overall: no masses 08/06/2018 None Full Exam - General 1994 Respiratory auscultation Overall: breath sounds clear bilaterally 08/06/2018 None Full Exam - General 1994 Respiratory respiratory effort/rhythm Overall: no retractions 08/06/2018 None Full Exam - General 1994 Respiratory respiratory effort/rhythm Overall: normal rate 08/06/2018 None Full Exam - General 1994 Cardiovascular extremities Overall: no clubbing 08/06/2018 None Full Exam - General 1994 Cardiovascular auscultation of heart Overall: regular rate 08/06/2018 None Full Exam - General 1994 Cardiovascular auscultation of heart Overall: normal heart sounds 08/06/2018 None Full Exam - General 1994 Abdomen abdominal exam Overall: no tenderness 08/06/2018 None Full Exam - General 1994 Abdomen abdominal exam Overall: normal bowel sounds 08/06/2018 None Full Exam - General 1994 Musculoskeletal lower extremity Inspection - thigh: deformity 08/06/2018 medially on the thigh nodular varicose veins Full Exam - General 1994 Psychiatric orientation/consciousness Overall: oriented to person, place and time 08/06/2018 None Full Exam - General 1994 Psychiatric mood and affect Overall: normal mood and affect 08/06/2018 None Full Exam - General 1994 Constitutional general appearance Development: well developed 07/08/2018 None Full Exam - General 1994 Constitutional general appearance Development: appears stated age 1007/08/2018 None Full Exam - General 1994 Constitutional general appearance Hygiene/Attention to Grooming: good hygiene 07/08/2018 None Full Exam - General 1994 Eyes conjunctiva /eyelids Overall: conjunctiva clear 07/08/2018 None Full Exam - General 1994 Eyes conjunctiva /eyelids Overall: cornea clear 07/08/2018 None Full Exam - General 1994 Eyes conjunctiva /eyelids Overall: eyelids normal 07/08/2018 None Full Exam - General 1994 Eyes pupils and irises Overall: pupils equal, round, reactive to light and accomodation 07/08/2018 None Full Exam - General 1994 Ears/Nose/Throat lips/teeth/gingiva Overall: benign lips 07/08/2018 None Full Exam - General 1994 Ears/Nose/Throat lips/teeth/gingiva Overall: normal dentition 07/08/2018 None Full Exam - General 1994 Ears/Nose/Throat oral cavity/pharynx/larynx Overall: oral mucosa clear 07/08/2018 None Full Exam - General 1994 Ears/Nose/Throat oral cavity/pharynx/larynx Overall: oropharyngeal mucosa clear 07/08/2018 None Full Exam - General 1994 Ears/Nose/Throat oral cavity/pharynx/larynx Overall: hypopharynx benign 07/08/2018 None Full Exam - General 1994 Ears/Nose/Throat oral cavity/pharynx/larynx Overall: no masses 07/08/2018 None Full Exam - General 1994 Respiratory auscultation Overall: breath sounds clear bilaterally 07/08/2018 None Full Exam - General 1994 Respiratory respiratory effort/rhythm Overall: no retractions 07/08/2018 None Full Exam - General 1994 Respiratory respiratory effort/rhythm Overall: normal rate 07/08/2018 None Full Exam - General 1994 Cardiovascular extremities Overall: no clubbing 07/08/2018 None Full Exam - General 1994 Cardiovascular auscultation of heart Overall: regular rate 07/08/2018 None Full Exam - General 1994 Cardiovascular auscultation of heart Overall: normal heart sounds 07/08/2018 None Full Exam - General 1994 Abdomen abdominal exam Overall: no tenderness 07/08/2018 None Full Exam - General 1994 Abdomen abdominal exam Overall: normal bowel sounds 07/08/2018 None Full Exam - General 1994 Musculoskeletal lower extremity Inspection - thigh: deformity 07/08/2018 medially on the thigh nodular varicose veins Full Exam - General 1994 Psychiatric orientation/consciousness Overall: oriented to person, place and time 07/08/2018 None Full Exam - General 1994 Psychiatric mood and affect Overall: normal mood and affect 07/08/2018 None Full Exam - General 1994 Constitutional general appearance Development: well developed 02/11/2018 None Full Exam - General 1994 Constitutional general appearance Development: appears stated age 0602/11/2018 None Full Exam - General 1994 Constitutional general appearance Hygiene/Attention to Grooming: good hygiene 02/11/2018 None Full Exam - General 1994 Eyes conjunctiva /eyelids Overall: conjunctiva clear 02/11/2018 None Full Exam - General 1994 Eyes conjunctiva /eyelids Overall: cornea clear 02/11/2018 None Full Exam - General 1994 Eyes conjunctiva /eyelids Overall: eyelids normal 02/11/2018 None Full Exam - General 1994 Eyes pupils and irises Overall: pupils equal, round, reactive to light and accomodation 02/11/2018 None Full Exam - General 1994 Ears/Nose/Throat lips/teeth/gingiva Overall: benign lips 02/11/2018 None Full Exam - General 1994 Ears/Nose/Throat lips/teeth/gingiva Overall: normal dentition 02/11/2018 None Full Exam - General 1994 Ears/Nose/Throat oral cavity/pharynx/larynx Overall: oral mucosa clear 02/11/2018 None Full Exam - General 1994 Ears/Nose/Throat oral cavity/pharynx/larynx Overall: oropharyngeal mucosa clear 02/11/2018 None Full Exam - General 1994 Ears/Nose/Throat oral cavity/pharynx/larynx Overall: hypopharynx benign 02/11/2018 None Full Exam - General 1994 Ears/Nose/Throat oral cavity/pharynx/larynx Overall: no masses 02/11/2018 None Full Exam - General 1994 Respiratory auscultation Overall: breath sounds clear bilaterally 02/11/2018 None Full Exam - General 1994 Respiratory respiratory effort/rhythm Overall: no retractions 02/11/2018 None Full Exam - General 1994 Respiratory respiratory effort/rhythm Overall: normal rate 02/11/2018 None Full Exam - General 1994 Cardiovascular extremities Overall: no clubbing 02/11/2018 None Full Exam - General 1994 Cardiovascular auscultation of heart Overall: regular rate 02/11/2018 None Full Exam - General 1994 Cardiovascular auscultation of heart Overall: normal heart sounds 02/11/2018 None Full Exam - General 1994 Abdomen abdominal exam Overall: no tenderness 02/11/2018 None Full Exam - General 1994 Abdomen abdominal exam Overall: normal bowel sounds 02/11/2018 None Full Exam - General 1994 Musculoskeletal lower extremity Inspection - thigh: deformity 02/11/2018 medially on the thigh nodular varicose veins Full Exam - General 1994 Integument inspection of skin Location: scalp 02/11/2018 None Full Exam - General 1994 Integument inspection of skin Location: face 02/11/2018 healing surgical sites on face, forehead, behind ears bilaterally Full Exam - General 1994 Psychiatric orientation/consciousness Overall: oriented to person, place and time 02/11/2018 None Full Exam - General 1994 Psychiatric mood and affect Overall: normal mood and affect 02/11/2018 None Full Exam - General 1994 Constitutional general appearance Development: well developed 11/12/2017 None Full Exam - General 1994 Constitutional general appearance Development: appears stated age 0311/12/2017 None Full Exam - General 1994 Constitutional general appearance Hygiene/Attention to Grooming: good hygiene 11/12/2017 None Full Exam - General 1994 Eyes conjunctiva /eyelids Overall: conjunctiva clear 11/12/2017 None Full Exam - General 1994 Eyes conjunctiva /eyelids Overall: cornea clear 11/12/2017 None Full Exam - General 1994 Eyes conjunctiva /eyelids Overall: eyelids normal 11/12/2017 None Full Exam - General 1994 Eyes pupils and irises Overall: pupils equal, round, reactive to light and accomodation 11/12/2017 None Full Exam - General 1994 Ears/Nose/Throat lips/teeth/gingiva Overall: benign lips 11/12/2017 None Full Exam - General 1994 Ears/Nose/Throat lips/teeth/gingiva Overall: normal dentition 11/12/2017 None Full Exam - General 1994 Ears/Nose/Throat oral cavity/pharynx/larynx Overall: oral mucosa clear 11/12/2017 None Full Exam - General 1994 Ears/Nose/Throat oral cavity/pharynx/larynx Overall: oropharyngeal mucosa clear 11/12/2017 None Full Exam - General 1994 Ears/Nose/Throat oral cavity/pharynx/larynx Overall: hypopharynx benign 11/12/2017 None Full Exam - General 1994 Ears/Nose/Throat oral cavity/pharynx/larynx Overall: no masses 11/12/2017 None Full Exam - General 1994 Respiratory auscultation Overall: breath sounds clear bilaterally 11/12/2017 None Full Exam - General 1994 Respiratory respiratory effort/rhythm Overall: no retractions 11/12/2017 None Full Exam - General 1994 Respiratory respiratory effort/rhythm Overall: normal rate 11/12/2017 None Full Exam - General 1994 Cardiovascular extremities Overall: no clubbing 11/12/2017 None Full Exam - General 1994 Cardiovascular auscultation of heart Overall: regular rate 11/12/2017 None Full Exam - General 1994 Cardiovascular auscultation of heart Overall: normal heart sounds 11/12/2017 None Full Exam - General 1994 Abdomen abdominal exam Overall: no tenderness 11/12/2017 None Full Exam - General 1994 Abdomen abdominal exam Overall: normal bowel sounds 11/12/2017 None Full Exam - General 1994 Musculoskeletal lower extremity Inspection - thigh: deformity 11/12/2017 medially on the thigh nodular varicose veins Full Exam - General 1994 Psychiatric orientation/consciousness Overall: oriented to person, place and time 11/12/2017 None Full Exam - General 1994 Psychiatric mood and affect Overall: normal mood and affect 11/12/2017 None Full Exam - General 1994 Integument inspection of skin Location: scalp 11/12/2017 None Full Exam - General 1994 Integument inspection of skin Location: face 11/12/2017 healing surgical sites on face, forehead, behind ears bilaterally Full Exam - General 1994 Constitutional general appearance Development: well developed 08/20/2017 None Full Exam - General 1994 Constitutional general appearance Development: appears stated age 1208/20/2017 None Full Exam - General 1994 Constitutional general appearance Hygiene/Attention to Grooming: good hygiene 08/20/2017 None Full Exam - General 1994 Eyes conjunctiva /eyelids Overall: conjunctiva clear 08/20/2017 None Full Exam - General 1994 Eyes conjunctiva /eyelids Overall: cornea clear 08/20/2017 None Full Exam - General 1994 Eyes conjunctiva /eyelids Overall: eyelids normal 08/20/2017 None Full Exam - General 1994 Eyes pupils and irises Overall: pupils equal, round, reactive to light and accomodation 08/20/2017 None Full Exam - General 1994 Ears/Nose/Throat lips/teeth/gingiva Overall: benign lips 08/20/2017 None Full Exam - General 1994 Ears/Nose/Throat lips/teeth/gingiva Overall: normal dentition 08/20/2017 None Full Exam - General 1994 Ears/Nose/Throat oral cavity/pharynx/larynx Overall: oral mucosa clear 08/20/2017 None Full Exam - General 1994 Ears/Nose/Throat oral cavity/pharynx/larynx Overall: oropharyngeal mucosa clear 08/20/2017 None Full Exam - General 1994 Ears/Nose/Throat oral cavity/pharynx/larynx Overall: hypopharynx benign 08/20/2017 None Full Exam - General 1994 Ears/Nose/Throat oral cavity/pharynx/larynx Overall: no masses 08/20/2017 None Full Exam - General 1994 Respiratory auscultation Overall: breath sounds clear bilaterally 08/20/2017 None Full Exam - General 1994 Respiratory respiratory effort/rhythm Overall: no retractions 08/20/2017 None Full Exam - General 1994 Respiratory respiratory effort/rhythm Overall: normal rate 08/20/2017 None Full Exam - General 1994 Cardiovascular extremities Overall: no clubbing 08/20/2017 None Full Exam - General 1994 Cardiovascular auscultation of heart Overall: regular rate 08/20/2017 None Full Exam - General 1994 Cardiovascular auscultation of heart Overall: normal heart sounds 08/20/2017 None Full Exam - General 1994 Abdomen abdominal exam Overall: no tenderness 08/20/2017 None Full Exam - General 1994 Abdomen abdominal exam Overall: normal bowel sounds 08/20/2017 None Full Exam - General 1994 Musculoskeletal lower extremity Inspection - thigh: deformity 08/20/2017 medially on the thigh nodular varicose veins Full Exam - General 1994 Psychiatric orientation/consciousness Overall: oriented to person, place and time 08/20/2017 None Full Exam - General 1994 Psychiatric mood and affect Overall: normal mood and affect 08/20/2017 None Full Exam - General 1994 Integument inspection of skin Location: abdomen 08/20/2017 across lower abdomen and at umbilicus - healing well Full Exam - General 1994 Constitutional general appearance Development: well developed 06/24/2017 None Full Exam - General 1994 Constitutional general appearance Development: appears stated age 1006/24/2017 None Full Exam - General 1994 Constitutional general appearance Hygiene/Attention to Grooming: good hygiene 06/24/2017 None Full Exam - General 1994 Eyes conjunctiva /eyelids Overall: conjunctiva clear 06/24/2017 None Full Exam - General 1994 Eyes conjunctiva /eyelids Overall: cornea clear 06/24/2017 None Full Exam - General 1994 Eyes conjunctiva /eyelids Overall: eyelids normal 06/24/2017 None Full Exam - General 1994 Eyes pupils and irises Overall: pupils equal, round, reactive to light and accomodation 06/24/2017 None Full Exam - General 1994 Ears/Nose/Throat otoscopic exam Overall: external auditory canals clear 06/24/2017 None Full Exam - General 1994 Ears/Nose/Throat otoscopic exam Tympanic membrane: air- fluid level 06/24/2017 None Full Exam - General 1994 Ears/Nose/Throat internal nose Sinus tenderness: left maxillary 06/24/2017 None Full Exam - General 1994 Ears/Nose/Throat internal nose Sinus tenderness: right maxillary 06/24/2017 None Full Exam - General 1994 Ears/Nose/Throat lips/teeth/gingiva Overall: benign lips 06/24/2017 None Full Exam - General 1994 Ears/Nose/Throat lips/teeth/gingiva Overall: normal dentition 06/24/2017 None Full Exam - General 1994 Respiratory auscultation Overall: breath sounds clear bilaterally 06/24/2017 None Full Exam - General 1994 Respiratory respiratory effort/rhythm Overall: no retractions 06/24/2017 None Full Exam - General 1994 Respiratory respiratory effort/rhythm Overall: normal rate 06/24/2017 None Full Exam - General 1994 Cardiovascular extremities Overall: no clubbing 06/24/2017 None Full Exam - General 1994 Cardiovascular auscultation of heart Overall: regular rate 06/24/2017 None Full Exam - General 1994 Cardiovascular auscultation of heart Overall: normal heart sounds 06/24/2017 None Full Exam - General 1994 Integument inspection of skin Overall: few scattered moles, no gross abnormalities 06/24/2017 None Full Exam - General 1994 Neurologic cranial nerves Overall: crainial nerves 2 - 12 grossly intact 06/24/2017 None Full Exam - General 1994 Psychiatric orientation/consciousness Overall: oriented to person, place and time 06/24/2017 None Full Exam - General 1994 Psychiatric mood and affect Overall: normal mood and affect 06/24/2017 None Full Exam - General 1994 Lymphatic neck nodes Overall: posterior cervical chain benign 06/24/2017 None Full Exam - General 1994 Lymphatic neck nodes Overall: anterior cervical chain benign 06/24/2017 None Full Exam - General 1994 Constitutional general appearance Development: well developed 05/22/2017 None Full Exam - General 1994 Constitutional general appearance Development: appears stated age 0905/22/2017 None Full Exam - General 1994 Constitutional general appearance Hygiene/Attention to Grooming: good hygiene 05/22/2017 None Full Exam - General 1994 Eyes conjunctiva /eyelids Overall: conjunctiva clear 05/22/2017 None Full Exam - General 1994 Eyes conjunctiva /eyelids Overall: cornea clear 05/22/2017 None Full Exam - General 1994 Eyes conjunctiva /eyelids Overall: eyelids normal 05/22/2017 None Full Exam - General 1994 Eyes pupils and irises Overall: pupils equal, round, reactive to light and accomodation 05/22/2017 None Full Exam - General 1994 Ears/Nose/Throat lips/teeth/gingiva Overall: benign lips 05/22/2017 None Full Exam - General 1994 Ears/Nose/Throat lips/teeth/gingiva Overall: normal dentition 05/22/2017 None Full Exam - General 1994 Ears/Nose/Throat oral cavity/pharynx/larynx Overall: oral mucosa clear 05/22/2017 None Full Exam - General 1994 Ears/Nose/Throat oral cavity/pharynx/larynx Overall: oropharyngeal mucosa clear 05/22/2017 None Full Exam - General 1994 Ears/Nose/Throat oral cavity/pharynx/larynx Overall: hypopharynx benign 05/22/2017 None Full Exam - General 1994 Ears/Nose/Throat oral cavity/pharynx/larynx Overall: no masses 05/22/2017 None Full Exam - General 1994 Respiratory auscultation Overall: breath sounds clear bilaterally 05/22/2017 None Full Exam - General 1994 Respiratory respiratory effort/rhythm Overall: no retractions 05/22/2017 None Full Exam - General 1994 Respiratory respiratory effort/rhythm Overall: normal rate 05/22/2017 None Full Exam - General 1994 Cardiovascular extremities Overall: no clubbing 05/22/2017 None Full Exam - General 1994 Cardiovascular auscultation of heart Overall: regular rate 05/22/2017 None Full Exam - General 1994 Cardiovascular auscultation of heart Overall: normal heart sounds 05/22/2017 None Full Exam - General 1994 Abdomen abdominal exam Overall: no tenderness 05/22/2017 None Full Exam - General 1994 Abdomen abdominal exam Overall: normal bowel sounds 05/22/2017 None Full Exam - General 1994 Psychiatric orientation/consciousness Overall: oriented to person, place and time 05/22/2017 None Full Exam - General 1994 Psychiatric mood and affect Overall: normal mood and affect 05/22/2017 None Full Exam - General 1994 Ears/Nose/Throat internal nose Sinus tenderness: left maxillary 05/22/2017 None Full Exam - General 1994 Ears/Nose/Throat internal nose Sinus tenderness: right maxillary 05/22/2017 None Full Exam - General 1994 Ears/Nose/Throat oral cavity/pharynx/larynx Oropharynx: erythema 05/22/2017 None Full Exam - General 1994 Neurologic cranial nerves Overall: crainial nerves 2 - 12 grossly intact 05/22/2017 None Full Exam - General 1994 Ears/Nose/Throat otoscopic exam Overall: external auditory canals clear 05/22/2017 None Full Exam - General 1994 Ears/Nose/Throat otoscopic exam Overall: tympanic membranes clear 05/22/2017 None Full Exam - General 1994 Constitutional general appearance Development: well developed 05/10/2017 None Full Exam - General 1994 Constitutional general appearance Development: appears stated age 0905/10/2017 None Full Exam - General 1994 Constitutional general appearance Hygiene/Attention to Grooming: good hygiene 05/10/2017 None Full Exam - General 1994 Eyes conjunctiva /eyelids Overall: conjunctiva clear 05/10/2017 None Full Exam - General 1994 Eyes conjunctiva /eyelids Overall: cornea clear 05/10/2017 None Full Exam - General 1994 Eyes conjunctiva /eyelids Overall: eyelids normal 05/10/2017 None Full Exam - General 1994 Eyes pupils and irises Overall: pupils equal, round, reactive to light and accomodation 05/10/2017 None Full Exam - General 1994 Ears/Nose/Throat otoscopic exam Overall: external auditory canals clear 05/10/2017 None Full Exam - General 1994 Ears/Nose/Throat otoscopic exam Tympanic membrane: air- fluid level 05/10/2017 None Full Exam - General 1994 Ears/Nose/Throat internal nose Sinus tenderness: left maxillary 05/10/2017 None Full Exam - General 1994 Ears/Nose/Throat internal nose Sinus tenderness: right maxillary 05/10/2017 None Full Exam - General 1994 Ears/Nose/Throat lips/teeth/gingiva Overall: benign lips 05/10/2017 None Full Exam - General 1994 Ears/Nose/Throat lips/teeth/gingiva Overall: normal dentition 05/10/2017 None Full Exam - General 1994 Ears/Nose/Throat oral cavity/pharynx/larynx Oropharynx: erythema 05/10/2017 None Full Exam - General 1994 Respiratory auscultation Overall: breath sounds clear bilaterally 05/10/2017 None Full Exam - General 1994 Respiratory respiratory effort/rhythm Overall: no retractions 05/10/2017 None Full Exam - General 1994 Respiratory respiratory effort/rhythm Overall: normal rate 05/10/2017 None Full Exam - General 1994 Cardiovascular extremities Overall: no clubbing 05/10/2017 None Full Exam - General 1994 Cardiovascular auscultation of heart Overall: regular rate 05/10/2017 None Full Exam - General 1994 Cardiovascular auscultation of heart Overall: normal heart sounds 05/10/2017 None Full Exam - General 1994 Neurologic cranial nerves Overall: crainial nerves 2 - 12 grossly intact 05/10/2017 None Full Exam - General 1994 Psychiatric orientation/consciousness Overall: oriented to person, place and time 05/10/2017 None Full Exam - General 1994 Psychiatric mood and affect Overall: normal mood and affect 05/10/2017 None Full Exam - General 1994 Integument inspection of skin Overall: few scattered moles, no gross abnormalities 05/10/2017 None Full Exam - General 1994 Lymphatic neck nodes Overall: shotty lymphadenopathy 05/10/2017 None Full Exam - General 1994 Constitutional general appearance Development: well developed 04/08/2017 None Full Exam - General 1994 Constitutional general appearance Development: appears stated age 0704/08/2017 None Full Exam - General 1994 Constitutional general appearance Hygiene/Attention to Grooming: good hygiene 04/08/2017 None Full Exam - General 1994 Eyes conjunctiva /eyelids Overall: conjunctiva clear 04/08/2017 None Full Exam - General 1994 Eyes conjunctiva /eyelids Overall: cornea clear 04/08/2017 None Full Exam - General 1994 Eyes conjunctiva /eyelids Overall: eyelids normal 04/08/2017 None Full Exam - General 1994 Eyes pupils and irises Overall: pupils equal, round, reactive to light and accomodation 04/08/2017 None Full Exam - General 1994 Ears/Nose/Throat lips/teeth/gingiva Overall: benign lips 04/08/2017 None Full Exam - General 1994 Ears/Nose/Throat lips/teeth/gingiva Overall: normal dentition 04/08/2017 None Full Exam - General 1994 Ears/Nose/Throat oral cavity/pharynx/larynx Overall: oral mucosa clear 04/08/2017 None Full Exam - General 1994 Ears/Nose/Throat oral cavity/pharynx/larynx Overall: oropharyngeal mucosa clear 04/08/2017 None Full Exam - General 1994 Ears/Nose/Throat oral cavity/pharynx/larynx Overall: hypopharynx benign 04/08/2017 None Full Exam - General 1994 Ears/Nose/Throat oral cavity/pharynx/larynx Overall: no masses 04/08/2017 None Full Exam - General 1994 Respiratory auscultation Overall: breath sounds clear bilaterally 04/08/2017 None Full Exam - General 1994 Respiratory respiratory effort/rhythm Overall: no retractions 04/08/2017 None Full Exam - General 1994 Respiratory respiratory effort/rhythm Overall: normal rate 04/08/2017 None Full Exam - General 1994 Cardiovascular extremities Overall: no clubbing 04/08/2017 None Full Exam - General 1994 Cardiovascular auscultation of heart Overall: regular rate 04/08/2017 None Full Exam - General 1994 Cardiovascular auscultation of heart Overall: normal heart sounds 04/08/2017 None Full Exam - General 1994 Musculoskeletal lower extremity Inspection - thigh: deformity 04/08/2017 medially on the thigh nodular varicose veins Full Exam - General 1994 Psychiatric orientation/consciousness Overall: oriented to person, place and time 04/08/2017 None Full Exam - General 1994 Psychiatric mood and affect Overall: normal mood and affect 04/08/2017 None Full Exam - General 1994 Abdomen abdominal exam Overall: no tenderness 04/08/2017 None Full Exam - General 1994 Abdomen abdominal exam Overall: normal bowel sounds 04/08/2017 None Full Exam - General 1994 Constitutional general appearance Development: well developed 02/20/2017 None Full Exam - General 1994 Constitutional general appearance Development: appears stated age 0602/20/2017 None Full Exam - General 1994 Constitutional general appearance Hygiene/Attention to Grooming: good hygiene 02/20/2017 None Full Exam - General 1994 Eyes conjunctiva /eyelids Overall: conjunctiva clear 02/20/2017 None Full Exam - General 1994 Eyes conjunctiva /eyelids Overall: cornea clear 02/20/2017 None Full Exam - General 1994 Eyes conjunctiva /eyelids Overall: eyelids normal 02/20/2017 None Full Exam - General 1994 Eyes pupils and irises Overall: pupils equal, round, reactive to light and accomodation 02/20/2017 None Full Exam - General 1994 Ears/Nose/Throat lips/teeth/gingiva Overall: benign lips 02/20/2017 None Full Exam - General 1994 Ears/Nose/Throat lips/teeth/gingiva Overall: normal dentition 02/20/2017 None Full Exam - General 1994 Ears/Nose/Throat oral cavity/pharynx/larynx Overall: oral mucosa clear 02/20/2017 None Full Exam - General 1994 Ears/Nose/Throat oral cavity/pharynx/larynx Overall: oropharyngeal mucosa clear 02/20/2017 None Full Exam - General 1994 Ears/Nose/Throat oral cavity/pharynx/larynx Overall: hypopharynx benign 02/20/2017 None Full Exam - General 1994 Ears/Nose/Throat oral cavity/pharynx/larynx Overall: no masses 02/20/2017 None Full Exam - General 1994 Respiratory auscultation Overall: breath sounds clear bilaterally 02/20/2017 None Full Exam - General 1994 Respiratory respiratory effort/rhythm Overall: no retractions 02/20/2017 None Full Exam - General 1994 Respiratory respiratory effort/rhythm Overall: normal rate 02/20/2017 None Full Exam - General 1994 Cardiovascular extremities Overall: no clubbing 02/20/2017 None Full Exam - General 1994 Cardiovascular auscultation of heart Overall: regular rate 02/20/2017 None Full Exam - General 1994 Cardiovascular auscultation of heart Overall: normal heart sounds 02/20/2017 None Full Exam - General 1994 Musculoskeletal lower extremity Inspection - thigh: deformity 02/20/2017 medially on the thigh nodular varicose veins Full Exam - General 1994 Psychiatric orientation/consciousness Overall: oriented to person, place and time 02/20/2017 None Full Exam - General 1994 Psychiatric mood and affect Overall: normal mood and affect 02/20/2017 None Full Exam - General 1994 Constitutional general appearance Development: well developed 11/21/2016 None Full Exam - General 1994 Constitutional general appearance Development: appears stated age 0311/21/2016 None Full Exam - General 1994 Constitutional general appearance Hygiene/Attention to Grooming: good hygiene 11/21/2016 None Full Exam - General 1994 Eyes conjunctiva /eyelids Overall: conjunctiva clear 11/21/2016 None Full Exam - General 1994 Eyes conjunctiva /eyelids Overall: cornea clear 11/21/2016 None Full Exam - General 1994 Eyes conjunctiva /eyelids Overall: eyelids normal 11/21/2016 None Full Exam - General 1994 Eyes pupils and irises Overall: pupils equal, round, reactive to light and accomodation 11/21/2016 None Full Exam - General 1994 Ears/Nose/Throat otoscopic exam Overall: external auditory canals clear 11/21/2016 None Full Exam - General 1994 Ears/Nose/Throat otoscopic exam Overall: tympanic membranes clear 11/21/2016 None Full Exam - General 1994 Ears/Nose/Throat lips/teeth/gingiva Overall: benign lips 11/21/2016 None Full Exam - General 1994 Ears/Nose/Throat lips/teeth/gingiva Overall: normal dentition 11/21/2016 None Full Exam - General 1994 Ears/Nose/Throat oral cavity/pharynx/larynx Overall: oral mucosa clear 11/21/2016 None Full Exam - General 1994 Ears/Nose/Throat oral cavity/pharynx/larynx Overall: oropharyngeal mucosa clear 11/21/2016 None Full Exam - General 1994 Ears/Nose/Throat oral cavity/pharynx/larynx Overall: hypopharynx benign 11/21/2016 None Full Exam - General 1994 Ears/Nose/Throat oral cavity/pharynx/larynx Overall: no masses 11/21/2016 None Full Exam - General 1994 Respiratory auscultation Overall: breath sounds clear bilaterally 11/21/2016 None Full Exam - General 1994 Respiratory respiratory effort/rhythm Overall: no retractions 11/21/2016 None Full Exam - General 1994 Respiratory respiratory effort/rhythm Overall: normal rate 11/21/2016 None Full Exam - General 1994 Cardiovascular extremities Overall: no clubbing 11/21/2016 None Full Exam - General 1994 Cardiovascular auscultation of heart Overall: regular rate 11/21/2016 None Full Exam - General 1994 Cardiovascular auscultation of heart Overall: normal heart sounds 11/21/2016 None Full Exam - General 1994 Musculoskeletal lower extremity Inspection - thigh: deformity 11/21/2016 medially on the thigh nodular varicose veins Full Exam - General 1994 Neurologic cranial nerves Overall: crainial nerves 2 - 12 grossly intact 11/21/2016 None Full Exam - General 1994 Psychiatric orientation/consciousness Overall: oriented to person, place and time 11/21/2016 None Full Exam - General 1994 Psychiatric mood and affect Overall: normal mood and affect 11/21/2016 None Full Exam - General 1994 Constitutional general appearance Development: well developed 08/29/2016 None Full Exam - General 1994 Constitutional general appearance Development: appears stated age 1208/29/2016 None Full Exam - General 1994 Constitutional general appearance Hygiene/Attention to Grooming: good hygiene 08/29/2016 None Full Exam - General 1994 Eyes conjunctiva /eyelids Overall: conjunctiva clear 08/29/2016 None Full Exam - General 1994 Eyes conjunctiva /eyelids Overall: cornea clear 08/29/2016 None Full Exam - General 1994 Eyes conjunctiva /eyelids Overall: eyelids normal 08/29/2016 None Full Exam - General 1994 Eyes pupils and irises Overall: pupils equal, round, reactive to light and accomodation 08/29/2016 None Full Exam - General 1994 Ears/Nose/Throat otoscopic exam Overall: external auditory canals clear 08/29/2016 None Full Exam - General 1994 Ears/Nose/Throat otoscopic exam Overall: tympanic membranes clear 08/29/2016 None Full Exam - General 1994 Ears/Nose/Throat lips/teeth/gingiva Overall: benign lips 08/29/2016 None Full Exam - General 1994 Ears/Nose/Throat lips/teeth/gingiva Overall: normal dentition 08/29/2016 None Full Exam - General 1994 Ears/Nose/Throat oral cavity/pharynx/larynx Overall: oral mucosa clear 08/29/2016 None Full Exam - General 1994 Ears/Nose/Throat oral cavity/pharynx/larynx Overall: oropharyngeal mucosa clear 08/29/2016 None Full Exam - General 1994 Ears/Nose/Throat oral cavity/pharynx/larynx Overall: hypopharynx benign 08/29/2016 None Full Exam - General 1994 Ears/Nose/Throat oral cavity/pharynx/larynx Overall: no masses 08/29/2016 None Full Exam - General 1994 Respiratory auscultation Overall: breath sounds clear bilaterally 08/29/2016 None Full Exam - General 1994 Respiratory respiratory effort/rhythm Overall: no retractions 08/29/2016 None Full Exam - General 1994 Respiratory respiratory effort/rhythm Overall: normal rate 08/29/2016 None Full Exam - General 1994 Cardiovascular extremities Overall: no clubbing 08/29/2016 None Full Exam - General 1994 Cardiovascular auscultation of heart Overall: regular rate 08/29/2016 None Full Exam - General 1994 Cardiovascular auscultation of heart Overall: normal heart sounds 08/29/2016 None Full Exam - General 1994 Neurologic cranial nerves Overall: crainial nerves 2 - 12 grossly intact 08/29/2016 None Full Exam - General 1994 Psychiatric orientation/consciousness Overall: oriented to person, place and time 08/29/2016 None Full Exam - General 1994 Psychiatric mood and affect Overall: normal mood and affect 08/29/2016 None Full Exam - General 1994 Abdomen abdominal exam Overall: normal bowel sounds 08/29/2016 None Full Exam - General 1994 Abdomen abdominal exam Upper quadrant: tender to palpation 08/29/2016 None Full Exam - General 1994 Abdomen abdominal exam Lower quadrant: tender to palpation 08/29/2016 None Full Exam - General 1994 Constitutional general appearance Development: well developed 07/05/2016 None Full Exam - General 1994 Constitutional general appearance Development: appears stated age 1007/05/2016 None Full Exam - General 1994 Constitutional general appearance Hygiene/Attention to Grooming: good hygiene 07/05/2016 None Full Exam - General 1994 Eyes conjunctiva /eyelids Overall: conjunctiva clear 07/05/2016 None Full Exam - General 1994 Eyes conjunctiva /eyelids Overall: cornea clear 07/05/2016 None Full Exam - General 1994 Eyes conjunctiva /eyelids Overall: eyelids normal 07/05/2016 None Full Exam - General 1994 Eyes pupils and irises Overall: pupils equal, round, reactive to light and accomodation 07/05/2016 None Full Exam - General 1994 Ears/Nose/Throat oral cavity/pharynx/larynx Overall: oral mucosa clear 07/05/2016 None Full Exam - General 1994 Ears/Nose/Throat oral cavity/pharynx/larynx Overall: oropharyngeal mucosa clear 07/05/2016 None Full Exam - General 1994 Ears/Nose/Throat oral cavity/pharynx/larynx Overall: hypopharynx benign 07/05/2016 None Full Exam - General 1994 Ears/Nose/Throat oral cavity/pharynx/larynx Overall: no masses 07/05/2016 None Full Exam - General 1994 Respiratory auscultation Overall: breath sounds clear bilaterally 07/05/2016 None Full Exam - General 1994 Respiratory respiratory effort/rhythm Overall: no retractions 07/05/2016 None Full Exam - General 1994 Respiratory respiratory effort/rhythm Overall: normal rate 07/05/2016 None Full Exam - General 1994 Cardiovascular extremities Overall: no clubbing 07/05/2016 None Full Exam - General 1994 Cardiovascular extremities Other findings: varicose veins 07/05/2016 None Full Exam - General 1994 Cardiovascular auscultation of heart Overall: regular rate 07/05/2016 None Full Exam - General 1994 Cardiovascular auscultation of heart Overall: normal heart sounds 07/05/2016 None Full Exam - General 1994 Psychiatric orientation/consciousness Overall: oriented to person, place and time 07/05/2016 None Full Exam - General 1994 Psychiatric mood and affect Overall: normal mood and affect 07/05/2016 None Full Exam - General 1994 Psychiatric mood and affect Mood: depressed 07/05/2016 None Full Exam - General 1994 Psychiatric mood and affect Mood: anxious 07/05/2016 None Full Exam - General 1994 Psychiatric mood and affect Affect: mood congruent 07/05/2016 None Full Exam - General 1994 Abdomen abdominal exam Epigastric: tender to palpation 07/05/2016 nodules under skin - ttp Full Exam - General 1994 Constitutional general appearance Development: well developed 06/11/2016 None Full Exam - General 1994 Constitutional general appearance Development: appears stated age 1006/11/2016 None Full Exam - General 1994 Constitutional general appearance Hygiene/Attention to Grooming: good hygiene 06/11/2016 None Full Exam - General 1994 Eyes conjunctiva /eyelids Overall: conjunctiva clear 06/11/2016 None Full Exam - General 1994 Eyes conjunctiva /eyelids Overall: cornea clear 06/11/2016 None Full Exam - General 1994 Eyes conjunctiva /eyelids Overall: eyelids normal 06/11/2016 None Full Exam - General 1994 Eyes pupils and irises Overall: pupils equal, round, reactive to light and accomodation 06/11/2016 None Full Exam - General 1994 Ears/Nose/Throat lips/teeth/gingiva Overall: benign lips 06/11/2016 None Full Exam - General 1994 Ears/Nose/Throat lips/teeth/gingiva Overall: normal dentition 06/11/2016 None Full Exam - General 1994 Ears/Nose/Throat oral cavity/pharynx/larynx Overall: oral mucosa clear 06/11/2016 None Full Exam - General 1994 Ears/Nose/Throat oral cavity/pharynx/larynx Overall: oropharyngeal mucosa clear 06/11/2016 None Full Exam - General 1994 Ears/Nose/Throat oral cavity/pharynx/larynx Overall: hypopharynx benign 06/11/2016 None Full Exam - General 1994 Ears/Nose/Throat oral cavity/pharynx/larynx Overall: no masses 06/11/2016 None Full Exam - General 1994 Respiratory auscultation Overall: breath sounds clear bilaterally 06/11/2016 None Full Exam - General 1994 Respiratory respiratory effort/rhythm Overall: no retractions 06/11/2016 None Full Exam - General 1994 Respiratory respiratory effort/rhythm Overall: normal rate 06/11/2016 None Full Exam - General 1994 Cardiovascular auscultation of heart Overall: regular rate 06/11/2016 None Full Exam - General 1994 Cardiovascular auscultation of heart Overall: normal heart sounds 06/11/2016 None Full Exam - General 1994 Abdomen abdominal exam Epigastric: tender to palpation 06/11/2016 None Full Exam - General 1994 Psychiatric orientation/consciousness Overall: oriented to person, place and time 06/11/2016 None Full Exam - General 1994 Psychiatric mood and affect Overall: normal mood and affect 06/11/2016 None Full Exam - General 1994 Psychiatric mood and affect Mood: depressed 06/11/2016 None Full Exam - General 1994 Psychiatric mood and affect Mood: anxious 06/11/2016 None Full Exam - General 1994 Psychiatric mood and affect Affect: mood congruent 06/11/2016 None Full Exam - General 1994 Eyes conjunctiva /eyelids Overall: conjunctiva clear 06/04/2016 None Full Exam - General 1994 Eyes conjunctiva /eyelids Overall: cornea clear 06/04/2016 None Full Exam - General 1994 Eyes conjunctiva /eyelids Overall: eyelids normal 06/04/2016 None Full Exam - General 1994 Eyes pupils and irises Overall: pupils equal, round, reactive to light and accomodation 06/04/2016 None Full Exam - General 1994 Ears/Nose/Throat lips/teeth/gingiva Overall: benign lips 06/04/2016 None Full Exam - General 1994 Ears/Nose/Throat lips/teeth/gingiva Overall: normal dentition 06/04/2016 None Full Exam - General 1994 Ears/Nose/Throat oral cavity/pharynx/larynx Overall: oral mucosa clear 06/04/2016 None Full Exam - General 1994 Ears/Nose/Throat oral cavity/pharynx/larynx Overall: oropharyngeal mucosa clear 06/04/2016 None Full Exam - General 1994 Ears/Nose/Throat oral cavity/pharynx/larynx Overall: no masses 06/04/2016 None Full Exam - General 1994 Respiratory auscultation Overall: breath sounds clear bilaterally 06/04/2016 None Full Exam - General 1994 Respiratory respiratory effort/rhythm Overall: no retractions 06/04/2016 None Full Exam - General 1994 Respiratory respiratory effort/rhythm Overall: normal rate 06/04/2016 None Full Exam - General 1994 Cardiovascular auscultation of heart Overall: regular rate 06/04/2016 None Full Exam - General 1994 Cardiovascular auscultation of heart Overall: normal heart sounds 06/04/2016 None Full Exam - General 1994 Psychiatric orientation/consciousness Overall: oriented to person, place and time 06/04/2016 None Full Exam - General 1994 Psychiatric mood and affect Overall: normal mood and affect 06/04/2016 None Full Exam - General 1994 Psychiatric mood and affect Affect: mood congruent 06/04/2016 None Full Exam - General 1994 Constitutional general appearance Overall: well developed 06/04/2016 None Full Exam - General 1994 Constitutional general appearance Overall: in no acute distress 06/04/2016 None Full Exam - General 1994 Constitutional general appearance Overall: well nourished 06/04/2016 None Full Exam - General 1994 Abdomen abdominal exam Lower quadrant: tender to palpation 06/04/2016 None Full Exam - General 1994 Abdomen abdominal exam Lower quadrant: dull pain 06/04/2016 None Full Exam - General 1994 Abdomen abdominal exam Lower quadrant: no guarding 06/04/2016 None Full Exam - General 1994 Abdomen abdominal exam Lower quadrant: no rebound tenderness 06/04/2016 None Full Exam - General 1994 Abdomen abdominal exam Lower quadrant: no mass lesions 06/04/2016 None Full Exam - General 1994 Abdomen abdominal exam Lower quadrant: soft 06/04/2016 None Full Exam - General 1994 Abdomen abdominal exam Epigastric: dull pain 06/04/2016 None Full Exam - General 1994 Abdomen abdominal exam Upper quadrant: no guarding 06/04/2016 None Full Exam - General 1994 Abdomen abdominal exam Upper quadrant: no rebound tenderness 06/04/2016 None Full Exam - General 1994 Abdomen abdominal exam Upper quadrant: no mass lesions 06/04/2016 None Full Exam - General 1994 Abdomen abdominal exam Upper quadrant: soft 06/04/2016 None Full Exam - General 1994 Abdomen abdominal exam Overall: normal bowel sounds 06/04/2016 None Full Exam - General 1994 Neurologic cranial nerves Overall: crainial nerves 2 - 12 grossly intact 06/04/2016 None Full Exam - General 1994 Psychiatric appearance Overall: well-groomed, good eye contact 06/04/2016 None Full Exam - General 1994 Abdomen abdominal exam Upper quadrant: tender to palpation 06/04/2016 None Full Exam - General 1994 Abdomen abdominal exam Upper quadrant: non-tender to palpation 06/04/2016 None Full Exam - General 1994 Abdomen abdominal exam Upper quadrant: sharp pain 06/04/2016 None Full Exam - Dermatology Constitutional general appearance Overall: well nourished 04/10/2016 None Full Exam - Dermatology Constitutional general appearance Overall: well developed 04/10/2016 None Full Exam - Dermatology Constitutional general appearance Overall: in no acute distress 04/10/2016 None Full Exam - Dermatology Constitutional general appearance Overall: of normal body habitus 04/10/2016 None Full Exam - Dermatology Constitutional general appearance Overall: well groomed 04/10/2016 None Full Exam - Dermatology Psychiatric orientation Overall: oriented to person, place and time 04/10/2016 None Full Exam - Dermatology Extremities inspection & palpation Left toes: on the big toe 04/10/2016 None Full Exam - Dermatology Extremities inspection & palpation Left toes: infection 04/10/2016 base of toenail Full Exam - General 1994 Constitutional general appearance Development: well developed 03/26/2016 None Full Exam - General 1994 Constitutional general appearance Development: appears stated age 0703/26/2016 None Full Exam - General 1994 Constitutional general appearance Hygiene/Attention to Grooming: good hygiene 03/26/2016 None Full Exam - General 1994 Eyes conjunctiva /eyelids Overall: conjunctiva clear 03/26/2016 None Full Exam - General 1994 Eyes conjunctiva /eyelids Overall: cornea clear 03/26/2016 None Full Exam - General 1994 Eyes conjunctiva /eyelids Overall: eyelids normal 03/26/2016 None Full Exam - General 1994 Eyes pupils and irises Overall: pupils equal, round, reactive to light and accomodation 03/26/2016 None Full Exam - General 1994 Ears/Nose/Throat otoscopic exam Overall: external auditory canals clear 03/26/2016 None Full Exam - General 1994 Ears/Nose/Throat otoscopic exam Overall: tympanic membranes clear 03/26/2016 None Full Exam - General 1994 Ears/Nose/Throat lips/teeth/gingiva Overall: benign lips 03/26/2016 None Full Exam - General 1994 Ears/Nose/Throat lips/teeth/gingiva Overall: normal dentition 03/26/2016 None Full Exam - General 1994 Ears/Nose/Throat oral cavity/pharynx/larynx Overall: oral mucosa clear 03/26/2016 None Full Exam - General 1994 Ears/Nose/Throat oral cavity/pharynx/larynx Overall: oropharyngeal mucosa clear 03/26/2016 None Full Exam - General 1994 Ears/Nose/Throat oral cavity/pharynx/larynx Overall: hypopharynx benign 03/26/2016 None Full Exam - General 1994 Ears/Nose/Throat oral cavity/pharynx/larynx Overall: no masses 03/26/2016 None Full Exam - General 1994 Respiratory auscultation Overall: breath sounds clear bilaterally 03/26/2016 None Full Exam - General 1994 Respiratory respiratory effort/rhythm Overall: no retractions 03/26/2016 None Full Exam - General 1994 Respiratory respiratory effort/rhythm Overall: normal rate 03/26/2016 None Full Exam - General 1994 Cardiovascular extremities Overall: no clubbing 03/26/2016 None Full Exam - General 1994 Cardiovascular auscultation of heart Overall: regular rate 03/26/2016 None Full Exam - General 1994 Cardiovascular auscultation of heart Overall: normal heart sounds 03/26/2016 None Full Exam - General 1994 Musculoskeletal lower extremity Inspection - thigh: deformity 03/26/2016 medially on the thigh nodular varicose veins Full Exam - General 1994 Neurologic cranial nerves Overall: crainial nerves 2 - 12 grossly intact 03/26/2016 None Full Exam - General 1994 Psychiatric orientation/consciousness Overall: oriented to person, place and time 03/26/2016 None Full Exam - General 1994 Psychiatric mood and affect Overall: normal mood and affect 03/26/2016 None Full Exam - General 1994 Constitutional general appearance Development: well developed 01/23/2016 None Full Exam - General 1994 Constitutional general appearance Development: appears stated age 0501/23/2016 None Full Exam - General 1994 Constitutional general appearance Hygiene/Attention to Grooming: good hygiene 01/23/2016 None Full Exam - General 1994 Eyes conjunctiva /eyelids Overall: conjunctiva clear 01/23/2016 None Full Exam - General 1994 Eyes conjunctiva /eyelids Overall: cornea clear 01/23/2016 None Full Exam - General 1994 Eyes conjunctiva /eyelids Overall: eyelids normal 01/23/2016 None Full Exam - General 1994 Eyes pupils and irises Overall: pupils equal, round, reactive to light and accomodation 01/23/2016 None Full Exam - General 1994 Ears/Nose/Throat otoscopic exam Overall: external auditory canals clear 01/23/2016 None Full Exam - General 1994 Ears/Nose/Throat otoscopic exam Overall: tympanic membranes clear 01/23/2016 None Full Exam - General 1994 Ears/Nose/Throat lips/teeth/gingiva Overall: benign lips 01/23/2016 None Full Exam - General 1994 Ears/Nose/Throat lips/teeth/gingiva Overall: normal dentition 01/23/2016 None Full Exam - General 1994 Ears/Nose/Throat oral cavity/pharynx/larynx Overall: oral mucosa clear 01/23/2016 None Full Exam - General 1994 Ears/Nose/Throat oral cavity/pharynx/larynx Overall: oropharyngeal mucosa clear 01/23/2016 None Full Exam - General 1994 Ears/Nose/Throat oral cavity/pharynx/larynx Overall: hypopharynx benign 01/23/2016 None Full Exam - General 1994 Ears/Nose/Throat oral cavity/pharynx/larynx Overall: no masses 01/23/2016 None Full Exam - General 1994 Respiratory auscultation Overall: breath sounds clear bilaterally 01/23/2016 None Full Exam - General 1994 Respiratory respiratory effort/rhythm Overall: no retractions 01/23/2016 None Full Exam - General 1994 Respiratory respiratory effort/rhythm Overall: normal rate 01/23/2016 None Full Exam - General 1994 Cardiovascular extremities Overall: no clubbing 01/23/2016 None Full Exam - General 1994 Cardiovascular extremities Other findings: varicose veins 01/23/2016 None Full Exam - General 1994 Cardiovascular auscultation of heart Overall: regular rate 01/23/2016 None Full Exam - General 1994 Cardiovascular auscultation of heart Overall: normal heart sounds 01/23/2016 None Full Exam - General 1994 Abdomen abdominal exam Epigastric: tender to palpation 01/23/2016 None Full Exam - General 1994 Musculoskeletal lower extremity Inspection - thigh: deformity 01/23/2016 medially on the thigh nodular varicose veins Full Exam - General 1994 Neurologic cranial nerves Overall: crainial nerves 2 - 12 grossly intact 01/23/2016 None Full Exam - General 1994 Psychiatric orientation/consciousness Overall: oriented to person, place and time 01/23/2016 None Full Exam - General 1994 Psychiatric mood and affect Overall: normal mood and affect 01/23/2016 None Full Exam - General 1994 Psychiatric mood and affect Mood: depressed 01/23/2016 None Full Exam - General 1994 Psychiatric mood and affect Mood: anxious 01/23/2016 None Full Exam - General 1994 Psychiatric mood and affect Affect: mood congruent 01/23/2016 None Full Exam - General 1994 Constitutional general appearance Development: well developed 12/26/2015 None Full Exam - General 1994 Constitutional general appearance Development: appears stated age 0412/26/2015 None Full Exam - General 1994 Constitutional general appearance Hygiene/Attention to Grooming: good hygiene 12/26/2015 None Full Exam - General 1994 Eyes conjunctiva /eyelids Overall: conjunctiva clear 12/26/2015 None Full Exam - General 1994 Eyes conjunctiva /eyelids Overall: cornea clear 12/26/2015 None Full Exam - General 1994 Eyes conjunctiva /eyelids Overall: eyelids normal 12/26/2015 None Full Exam - General 1994 Eyes pupils and irises Overall: pupils equal, round, reactive to light and accomodation 12/26/2015 None Full Exam - General 1994 Ears/Nose/Throat otoscopic exam Overall: external auditory canals clear 12/26/2015 None Full Exam - General 1994 Ears/Nose/Throat otoscopic exam Overall: tympanic membranes clear 12/26/2015 None Full Exam - General 1994 Ears/Nose/Throat lips/teeth/gingiva Overall: benign lips 12/26/2015 None Full Exam - General 1994 Ears/Nose/Throat lips/teeth/gingiva Overall: normal dentition 12/26/2015 None Full Exam - General 1994 Ears/Nose/Throat oral cavity/pharynx/larynx Overall: oral mucosa clear 12/26/2015 None Full Exam - General 1994 Ears/Nose/Throat oral cavity/pharynx/larynx Overall: oropharyngeal mucosa clear 12/26/2015 None Full Exam - General 1994 Ears/Nose/Throat oral cavity/pharynx/larynx Overall: hypopharynx benign 12/26/2015 None Full Exam - General 1994 Ears/Nose/Throat oral cavity/pharynx/larynx Overall: no masses 12/26/2015 None Full Exam - General 1994 Respiratory auscultation Overall: breath sounds clear bilaterally 12/26/2015 None Full Exam - General 1994 Respiratory respiratory effort/rhythm Overall: no retractions 12/26/2015 None Full Exam - General 1994 Respiratory respiratory effort/rhythm Overall: normal rate 12/26/2015 None Full Exam - General 1994 Cardiovascular extremities Overall: no clubbing 12/26/2015 None Full Exam - General 1994 Cardiovascular extremities Other findings: varicose veins 12/26/2015 None Full Exam - General 1994 Cardiovascular auscultation of heart Overall: regular rate 12/26/2015 None Full Exam - General 1994 Cardiovascular auscultation of heart Overall: normal heart sounds 12/26/2015 None Full Exam - General 1994 Musculoskeletal lower extremity Inspection - thigh: deformity 12/26/2015 medially on the thigh nodular varicose veins Full Exam - General 1994 Neurologic cranial nerves Overall: crainial nerves 2 - 12 grossly intact 12/26/2015 None Full Exam - General 1994 Psychiatric orientation/consciousness Overall: oriented to person, place and time 12/26/2015 None Full Exam - General 1994 Psychiatric mood and affect Overall: normal mood and affect 12/26/2015 None Full Exam - General 1994 Psychiatric mood and affect Mood: depressed 12/26/2015 None Full Exam - General 1994 Psychiatric mood and affect Mood: anxious 12/26/2015 None Full Exam - General 1994 Psychiatric mood and affect Affect: mood congruent 12/26/2015 None Full Exam - General 1994 Abdomen abdominal exam Epigastric: tender to palpation 12/26/2015 None Full Exam - General 1994 Constitutional general appearance Development: well developed 11/02/2015 None Full Exam - General 1994 Constitutional general appearance Development: appears stated age 0211/02/2015 None Full Exam - General 1994 Constitutional general appearance Hygiene/Attention to Grooming: good hygiene 11/02/2015 None Full Exam - General 1994 Eyes conjunctiva /eyelids Overall: conjunctiva clear 11/02/2015 None Full Exam - General 1994 Eyes conjunctiva /eyelids Overall: cornea clear 11/02/2015 None Full Exam - General 1994 Eyes conjunctiva /eyelids Overall: eyelids normal 11/02/2015 None Full Exam - General 1994 Eyes pupils and irises Overall: pupils equal, round, reactive to light and accomodation 11/02/2015 None Full Exam - General 1994 Ears/Nose/Throat otoscopic exam Overall: external auditory canals clear 11/02/2015 None Full Exam - General 1994 Ears/Nose/Throat otoscopic exam Tympanic membrane: air- fluid level 11/02/2015 None Full Exam - General 1994 Ears/Nose/Throat internal nose Sinus tenderness: left maxillary 11/02/2015 None Full Exam - General 1994 Ears/Nose/Throat internal nose Sinus tenderness: right maxillary 11/02/2015 None Full Exam - General 1994 Ears/Nose/Throat lips/teeth/gingiva Overall: benign lips 11/02/2015 None Full Exam - General 1994 Ears/Nose/Throat lips/teeth/gingiva Overall: normal dentition 11/02/2015 None Full Exam - General 1994 Respiratory auscultation Overall: breath sounds clear bilaterally 11/02/2015 None Full Exam - General 1994 Respiratory respiratory effort/rhythm Overall: no retractions 11/02/2015 None Full Exam - General 1994 Respiratory respiratory effort/rhythm Overall: normal rate 11/02/2015 None Full Exam - General 1994 Cardiovascular extremities Overall: no clubbing 11/02/2015 None Full Exam - General 1994 Cardiovascular auscultation of heart Overall: regular rate 11/02/2015 None Full Exam - General 1994 Cardiovascular auscultation of heart Overall: normal heart sounds 11/02/2015 None Full Exam - General 1994 Neurologic cranial nerves Overall: crainial nerves 2 - 12 grossly intact 11/02/2015 None Full Exam - General 1994 Psychiatric orientation/consciousness Overall: oriented to person, place and time 11/02/2015 None Full Exam - General 1994 Psychiatric mood and affect Overall: normal mood and affect 11/02/2015 None Full Exam - General 1994 Ears/Nose/Throat oral cavity/pharynx/larynx Posterior Pharynx: clear post nasal drainage 11/02/2015 None Full Exam - General 1994 Constitutional general appearance Development: well developed 09/13/2015 None Full Exam - General 1994 Constitutional general appearance Development: appears stated age 0109/13/2015 None Full Exam - General 1994 Constitutional general appearance Hygiene/Attention to Grooming: good hygiene 09/13/2015 None Full Exam - General 1994 Eyes conjunctiva /eyelids Overall: conjunctiva clear 09/13/2015 None Full Exam - General 1994 Eyes conjunctiva /eyelids Overall: cornea clear 09/13/2015 None Full Exam - General 1994 Eyes conjunctiva /eyelids Overall: eyelids normal 09/13/2015 None Full Exam - General 1994 Eyes pupils and irises Overall: pupils equal, round, reactive to light and accomodation 09/13/2015 None Full Exam - General 1994 Ears/Nose/Throat otoscopic exam Overall: external auditory canals clear 09/13/2015 None Full Exam - General 1994 Ears/Nose/Throat otoscopic exam Tympanic membrane: air- fluid level 09/13/2015 None Full Exam - General 1994 Ears/Nose/Throat lips/teeth/gingiva Overall: benign lips 09/13/2015 None Full Exam - General 1994 Ears/Nose/Throat lips/teeth/gingiva Overall: normal dentition 09/13/2015 None Full Exam - General 1994 Ears/Nose/Throat oral cavity/pharynx/larynx Oropharynx: erythema 09/13/2015 None Full Exam - General 1994 Respiratory auscultation Overall: breath sounds clear bilaterally 09/13/2015 None Full Exam - General 1994 Respiratory respiratory effort/rhythm Overall: no retractions 09/13/2015 None Full Exam - General 1994 Respiratory respiratory effort/rhythm Overall: normal rate 09/13/2015 None Full Exam - General 1994 Cardiovascular extremities Overall: no clubbing 09/13/2015 None Full Exam - General 1994 Cardiovascular auscultation of heart Overall: regular rate 09/13/2015 None Full Exam - General 1994 Cardiovascular auscultation of heart Overall: normal heart sounds 09/13/2015 None Full Exam - General 1994 Neurologic cranial nerves Overall: crainial nerves 2 - 12 grossly intact 09/13/2015 None Full Exam - General 1994 Psychiatric orientation/consciousness Overall: oriented to person, place and time 09/13/2015 None Full Exam - General 1994 Psychiatric mood and affect Overall: normal mood and affect 09/13/2015 None Full Exam - General 1994 Ears/Nose/Throat internal nose Sinus tenderness: left maxillary 09/13/2015 None Full Exam - General 1994 Ears/Nose/Throat internal nose Sinus tenderness: right maxillary 09/13/2015 None Full Exam - General 1994 Constitutional general appearance Development: well developed 09/07/2015 None Full Exam - General 1994 Constitutional general appearance Development: appears stated age 1209/07/2015 None Full Exam - General 1994 Constitutional general appearance Hygiene/Attention to Grooming: good hygiene 09/07/2015 None Full Exam - General 1994 Eyes conjunctiva /eyelids Overall: conjunctiva clear 09/07/2015 None Full Exam - General 1994 Eyes conjunctiva /eyelids Overall: cornea clear 09/07/2015 None Full Exam - General 1994 Eyes conjunctiva /eyelids Overall: eyelids normal 09/07/2015 None Full Exam - General 1994 Eyes pupils and irises Overall: pupils equal, round, reactive to light and accomodation 09/07/2015 None Full Exam - General 1994 Ears/Nose/Throat lips/teeth/gingiva Overall: benign lips 09/07/2015 None Full Exam - General 1994 Ears/Nose/Throat lips/teeth/gingiva Overall: normal dentition 09/07/2015 None Full Exam - General 1994 Respiratory auscultation Overall: breath sounds clear bilaterally 09/07/2015 None Full Exam - General 1994 Respiratory respiratory effort/rhythm Overall: no retractions 09/07/2015 None Full Exam - General 1994 Respiratory respiratory effort/rhythm Overall: normal rate 09/07/2015 None Full Exam - General 1994 Cardiovascular extremities Overall: no clubbing 09/07/2015 None Full Exam - General 1994 Cardiovascular auscultation of heart Overall: regular rate 09/07/2015 None Full Exam - General 1994 Cardiovascular auscultation of heart Overall: normal heart sounds 09/07/2015 None Full Exam - General 1994 Neurologic cranial nerves Overall: crainial nerves 2 - 12 grossly intact 09/07/2015 None Full Exam - General 1994 Psychiatric orientation/consciousness Overall: oriented to person, place and time 09/07/2015 None Full Exam - General 1994 Psychiatric mood and affect Overall: normal mood and affect 09/07/2015 None Full Exam - General 1994 Musculoskeletal lower extremity Palpation - knee: crepitus 09/07/2015 None Full Exam - General 1994 Ears/Nose/Throat oral cavity/pharynx/larynx Oropharynx: erythema 09/07/2015 None Full Exam - General 1994 Ears/Nose/Throat otoscopic exam Overall: external auditory canals clear 09/07/2015 None Full Exam - General 1994 Ears/Nose/Throat otoscopic exam Tympanic membrane: air- fluid level 09/07/2015 None Full Exam - General 1994 Musculoskeletal lower extremity Inspection - lower leg: normal appearance 09/07/2015 tender to palpation on left posterior calf. Pt states that she noticed that it had been red and warm to the touch, but states that has resolved. Full Exam - General 1994 Constitutional general appearance Development: well developed 08/16/2015 None Full Exam - General 1994 Constitutional general appearance Development: appears stated age 1208/16/2015 None Full Exam - General 1994 Constitutional general appearance Hygiene/Attention to Grooming: good hygiene 08/16/2015 None Full Exam - General 1994 Eyes conjunctiva /eyelids Overall: conjunctiva clear 08/16/2015 None Full Exam - General 1994 Eyes conjunctiva /eyelids Overall: cornea clear 08/16/2015 None Full Exam - General 1994 Eyes conjunctiva /eyelids Overall: eyelids normal 08/16/2015 None Full Exam - General 1994 Eyes pupils and irises Overall: pupils equal, round, reactive to light and accomodation 08/16/2015 None Full Exam - General 1994 Ears/Nose/Throat otoscopic exam Overall: external auditory canals clear 08/16/2015 None Full Exam - General 1994 Ears/Nose/Throat otoscopic exam Overall: tympanic membranes clear 08/16/2015 None Full Exam - General 1994 Ears/Nose/Throat lips/teeth/gingiva Overall: benign lips 08/16/2015 None Full Exam - General 1994 Ears/Nose/Throat lips/teeth/gingiva Overall: normal dentition 08/16/2015 None Full Exam - General 1994 Ears/Nose/Throat oral cavity/pharynx/larynx Overall: oral mucosa clear 08/16/2015 None Full Exam - General 1994 Ears/Nose/Throat oral cavity/pharynx/larynx Overall: oropharyngeal mucosa clear 08/16/2015 None Full Exam - General 1994 Ears/Nose/Throat oral cavity/pharynx/larynx Overall: hypopharynx benign 08/16/2015 None Full Exam - General 1994 Ears/Nose/Throat oral cavity/pharynx/larynx Overall: no masses 08/16/2015 None Full Exam - General 1994 Respiratory auscultation Overall: breath sounds clear bilaterally 08/16/2015 None Full Exam - General 1994 Respiratory respiratory effort/rhythm Overall: no retractions 08/16/2015 None Full Exam - General 1994 Respiratory respiratory effort/rhythm Overall: normal rate 08/16/2015 None Full Exam - General 1994 Cardiovascular extremities Overall: no clubbing 08/16/2015 None Full Exam - General 1994 Cardiovascular auscultation of heart Overall: regular rate 08/16/2015 None Full Exam - General 1994 Cardiovascular auscultation of heart Overall: normal heart sounds 08/16/2015 None Full Exam - General 1994 Musculoskeletal lower extremity Inspection - thigh: deformity 08/16/2015 medially on the thigh nodular varicose veins Full Exam - General 1994 Neurologic cranial nerves Overall: crainial nerves 2 - 12 grossly intact 08/16/2015 None Full Exam - General 1994 Psychiatric orientation/consciousness Overall: oriented to person, place and time 08/16/2015 None Full Exam - General 1994 Psychiatric mood and affect Overall: normal mood and affect 08/16/2015 None Full Exam - General 1994 Psychiatric mood and affect Mood: depressed 08/16/2015 None Full Exam - General 1994 Psychiatric mood and affect Mood: anxious 08/16/2015 None Full Exam - General 1994 Psychiatric mood and affect Affect: mood congruent 08/16/2015 None Full Exam - General 1994 Cardiovascular extremities Other findings: varicose veins 08/16/2015 None Full Exam - General 1994 Constitutional general appearance Development: well developed 06/13/2015 None Full Exam - General 1994 Constitutional general appearance Development: appears stated age 1006/13/2015 None Full Exam - General 1994 Constitutional general appearance Hygiene/Attention to Grooming: good hygiene 06/13/2015 None Full Exam - General 1994 Eyes conjunctiva /eyelids Overall: conjunctiva clear 06/13/2015 None Full Exam - General 1994 Eyes conjunctiva /eyelids Overall: cornea clear 06/13/2015 None Full Exam - General 1994 Eyes conjunctiva /eyelids Overall: eyelids normal 06/13/2015 None Full Exam - General 1994 Eyes pupils and irises Overall: pupils equal, round, reactive to light and accomodation 06/13/2015 None Full Exam - General 1994 Ears/Nose/Throat otoscopic exam Overall: external auditory canals clear 06/13/2015 None Full Exam - General 1994 Ears/Nose/Throat otoscopic exam Overall: tympanic membranes clear 06/13/2015 None Full Exam - General 1994 Ears/Nose/Throat lips/teeth/gingiva Overall: benign lips 06/13/2015 None Full Exam - General 1994 Ears/Nose/Throat lips/teeth/gingiva Overall: normal dentition 06/13/2015 None Full Exam - General 1994 Ears/Nose/Throat oral cavity/pharynx/larynx Overall: oral mucosa clear 06/13/2015 None Full Exam - General 1994 Ears/Nose/Throat oral cavity/pharynx/larynx Overall: oropharyngeal mucosa clear 06/13/2015 None Full Exam - General 1994 Ears/Nose/Throat oral cavity/pharynx/larynx Overall: hypopharynx benign 06/13/2015 None Full Exam - General 1994 Ears/Nose/Throat oral cavity/pharynx/larynx Overall: no masses 06/13/2015 None Full Exam - General 1994 Respiratory auscultation Overall: breath sounds clear bilaterally 06/13/2015 None Full Exam - General 1994 Respiratory respiratory effort/rhythm Overall: no retractions 06/13/2015 None Full Exam - General 1994 Respiratory respiratory effort/rhythm Overall: normal rate 06/13/2015 None Full Exam - General 1994 Cardiovascular extremities Overall: no clubbing 06/13/2015 None Full Exam - General 1994 Cardiovascular auscultation of heart Overall: regular rate 06/13/2015 None Full Exam - General 1994 Cardiovascular auscultation of heart Overall: normal heart sounds 06/13/2015 None Full Exam - General 1994 Musculoskeletal lower extremity Inspection - thigh: deformity 06/13/2015 medially on the thigh nodular varicose veins Full Exam - General 1994 Neurologic cranial nerves Overall: crainial nerves 2 - 12 grossly intact 06/13/2015 None Full Exam - General 1994 Psychiatric orientation/consciousness Overall: oriented to person, place and time 06/13/2015 None Full Exam - General 1994 Psychiatric mood and affect Mood: depressed 06/13/2015 None Full Exam - General 1994 Psychiatric mood and affect Mood: anxious 06/13/2015 None Full Exam - General 1994 Psychiatric mood and affect Affect: mood congruent 06/13/2015 None Full Exam - General 1994 Constitutional general appearance Development: well developed 05/10/2015 None Full Exam - General 1994 Constitutional general appearance Development: appears stated age 0905/10/2015 None Full Exam - General 1994 Constitutional general appearance Hygiene/Attention to Grooming: good hygiene 05/10/2015 None Full Exam - General 1994 Eyes conjunctiva /eyelids Overall: conjunctiva clear 05/10/2015 None Full Exam - General 1994 Eyes conjunctiva /eyelids Overall: cornea clear 05/10/2015 None Full Exam - General 1994 Eyes conjunctiva /eyelids Overall: eyelids normal 05/10/2015 None Full Exam - General 1994 Eyes pupils and irises Overall: pupils equal, round, reactive to light and accomodation 05/10/2015 None Full Exam - General 1994 Ears/Nose/Throat otoscopic exam Overall: external auditory canals clear 05/10/2015 None Full Exam - General 1994 Ears/Nose/Throat otoscopic exam Overall: tympanic membranes clear 05/10/2015 None Full Exam - General 1994 Ears/Nose/Throat lips/teeth/gingiva Overall: benign lips 05/10/2015 None Full Exam - General 1994 Ears/Nose/Throat lips/teeth/gingiva Overall: normal dentition 05/10/2015 None Full Exam - General 1994 Ears/Nose/Throat oral cavity/pharynx/larynx Overall: oral mucosa clear 05/10/2015 None Full Exam - General 1994 Ears/Nose/Throat oral cavity/pharynx/larynx Overall: oropharyngeal mucosa clear 05/10/2015 None Full Exam - General 1994 Ears/Nose/Throat oral cavity/pharynx/larynx Overall: hypopharynx benign 05/10/2015 None Full Exam - General 1994 Ears/Nose/Throat oral cavity/pharynx/larynx Overall: no masses 05/10/2015 None Full Exam - General 1994 Respiratory auscultation Overall: breath sounds clear bilaterally 05/10/2015 None Full Exam - General 1994 Respiratory respiratory effort/rhythm Overall: no retractions 05/10/2015 None Full Exam - General 1994 Respiratory respiratory effort/rhythm Overall: normal rate 05/10/2015 None Full Exam - General 1994 Cardiovascular extremities Overall: no clubbing 05/10/2015 None Full Exam - General 1994 Cardiovascular auscultation of heart Overall: regular rate 05/10/2015 None Full Exam - General 1994 Cardiovascular auscultation of heart Overall: normal heart sounds 05/10/2015 None Full Exam - General 1994 Musculoskeletal lower extremity Inspection - thigh: deformity 05/10/2015 medially on the thigh nodular varicose veins Full Exam - General 1994 Neurologic cranial nerves Overall: crainial nerves 2 - 12 grossly intact 05/10/2015 None Full Exam - General 1994 Psychiatric orientation/consciousness Overall: oriented to person, place and time 05/10/2015 None Full Exam - General 1994 Psychiatric mood and affect Overall: normal mood and affect 05/10/2015 None Full Exam - General 1994 Constitutional general appearance Development: appears stated age 0703/22/2015 None Full Exam - General 1994 Constitutional general appearance Hygiene/Attention to Grooming: good hygiene 03/22/2015 None Full Exam - General 1994 Eyes conjunctiva /eyelids Overall: conjunctiva clear 03/22/2015 None Full Exam - General 1994 Eyes conjunctiva /eyelids Overall: cornea clear 03/22/2015 None Full Exam - General 1994 Eyes conjunctiva /eyelids Overall: eyelids normal 03/22/2015 None Full Exam - General 1994 Eyes pupils and irises Overall: pupils equal, round, reactive to light and accomodation 03/22/2015 None Full Exam - General 1994 Ears/Nose/Throat otoscopic exam Overall: external auditory canals clear 03/22/2015 None Full Exam - General 1994 Ears/Nose/Throat otoscopic exam Overall: tympanic membranes clear 03/22/2015 None Full Exam - General 1994 Ears/Nose/Throat lips/teeth/gingiva Overall: benign lips 03/22/2015 None Full Exam - General 1994 Ears/Nose/Throat lips/teeth/gingiva Overall: normal dentition 03/22/2015 None Full Exam - General 1994 Ears/Nose/Throat oral cavity/pharynx/larynx Overall: oral mucosa clear 03/22/2015 None Full Exam - General 1994 Ears/Nose/Throat oral cavity/pharynx/larynx Overall: oropharyngeal mucosa clear 03/22/2015 None Full Exam - General 1994 Ears/Nose/Throat oral cavity/pharynx/larynx Overall: hypopharynx benign 03/22/2015 None Full Exam - General 1994 Ears/Nose/Throat oral cavity/pharynx/larynx Overall: no masses 03/22/2015 None Full Exam - General 1994 Respiratory auscultation Overall: breath sounds clear bilaterally 03/22/2015 None Full Exam - General 1994 Respiratory respiratory effort/rhythm Overall: no retractions 03/22/2015 None Full Exam - General 1994 Respiratory respiratory effort/rhythm Overall: normal rate 03/22/2015 None Full Exam - General 1994 Cardiovascular extremities Overall: no clubbing 03/22/2015 None Full Exam - General 1994 Cardiovascular auscultation of heart Overall: regular rate 03/22/2015 None Full Exam - General 1994 Cardiovascular auscultation of heart Overall: normal heart sounds 03/22/2015 None Full Exam - General 1994 Neurologic cranial nerves Overall: crainial nerves 2 - 12 grossly intact 03/22/2015 None Full Exam - General 1994 Psychiatric orientation/consciousness Overall: oriented to person, place and time 03/22/2015 None Full Exam - General 1994 Psychiatric mood and affect Overall: normal mood and affect 03/22/2015 None Full Exam - General 1994 Abdomen abdominal exam Overall: no tenderness 03/22/2015 None Full Exam - General 1994 Abdomen abdominal exam Overall: normal bowel sounds 03/22/2015 None Full Exam - General 1994 Lymphatic neck nodes Overall: anterior cervical chain benign 03/22/2015 None Full Exam - General 1994 Lymphatic neck nodes Overall: posterior cervical chain benign 03/22/2015 None Full Exam - General 1994 Musculoskeletal gait and station Overall: normal gait 03/22/2015 None Full Exam - General 1994 Musculoskeletal gait and station Overall: normal station 03/22/2015 None Full Exam - General 1994 Constitutional general appearance Overall: in no acute distress 03/22/2015 None Full Exam - General 1994 Constitutional general appearance Overall: well nourished 03/22/2015 None Full Exam - General 1994 Constitutional general appearance Hygiene/Attention to Grooming: normal grooming 03/22/2015 None Full Exam - General 1994 Integument inspection of skin Overall: few scattered moles, no gross abnormalities 03/22/2015 None Full Exam - General 1994 Integument inspection of skin Overall: no rash, lesions 03/22/2015 None Full Exam - General 1994 Cardiovascular extremities Other findings: varicose veins 03/22/2015 Bilateral thigh high compression stockings. Pt states she wears these all the time and is preparing for a vein procedure that will be perform in [place] in May. Full Exam - General 1994 Musculoskeletal spine, ribs and pelvis Overall: ribs benign 03/22/2015 Tender to palpation on left and right mid-back. CVA tenderness. Right side more painful than left. Full Exam - General 1994 Musculoskeletal spine, ribs and pelvis Overall: spine benign 03/22/2015 None Full Exam - General 1994 Constitutional general appearance Development: appears stated age 0501/17/2015 None Full Exam - General 1994 Constitutional general appearance Development: well developed 01/17/2015 None Full Exam - General 1994 Constitutional general appearance Hygiene/Attention to Grooming: good hygiene 01/17/2015 None Full Exam - General 1994 Eyes conjunctiva /eyelids Overall: conjunctiva clear 01/17/2015 None Full Exam - General 1994 Eyes conjunctiva /eyelids Overall: cornea clear 01/17/2015 None Full Exam - General 1994 Eyes conjunctiva /eyelids Overall: eyelids normal 01/17/2015 None Full Exam - General 1994 Eyes pupils and irises Overall: pupils equal, round, reactive to light and accomodation 01/17/2015 None Full Exam - General 1994 Ears/Nose/Throat otoscopic exam Overall: external auditory canals clear 01/17/2015 None Full Exam - General 1994 Ears/Nose/Throat otoscopic exam Overall: tympanic membranes clear 01/17/2015 None Full Exam - General 1994 Ears/Nose/Throat lips/teeth/gingiva Overall: benign lips 01/17/2015 None Full Exam - General 1994 Ears/Nose/Throat lips/teeth/gingiva Overall: normal dentition 01/17/2015 None Full Exam - General 1994 Ears/Nose/Throat oral cavity/pharynx/larynx Overall: hypopharynx benign 01/17/2015 None Full Exam - General 1994 Ears/Nose/Throat oral cavity/pharynx/larynx Overall: no masses 01/17/2015 None Full Exam - General 1994 Ears/Nose/Throat oral cavity/pharynx/larynx Overall: oral mucosa clear 01/17/2015 None Full Exam - General 1994 Ears/Nose/Throat oral cavity/pharynx/larynx Overall: oropharyngeal mucosa clear 01/17/2015 None Full Exam - General 1994 Respiratory auscultation Overall: breath sounds clear bilaterally 01/17/2015 None Full Exam - General 1994 Respiratory respiratory effort/rhythm Overall: no retractions 01/17/2015 None Full Exam - General 1994 Respiratory respiratory effort/rhythm Overall: normal rate 01/17/2015 None Full Exam - General 1994 Cardiovascular extremities Overall: no clubbing 01/17/2015 None Full Exam - General 1994 Cardiovascular auscultation of heart Overall: normal heart sounds 01/17/2015 None Full Exam - General 1994 Cardiovascular auscultation of heart Overall: regular rate 01/17/2015 None Full Exam - General 1994 Neurologic cranial nerves Overall: crainial nerves 2 - 12 grossly intact 01/17/2015 None Full Exam - General 1994 Psychiatric orientation/consciousness Overall: oriented to person, place and time 01/17/2015 None Full Exam - General 1994 Psychiatric mood and affect Overall: normal mood and affect 01/17/2015 None Full Exam - General 1994 Musculoskeletal lower extremity Inspection - thigh: deformity 01/17/2015 medially on the thigh nodular varicose veins Full Exam - General 1994 Constitutional general appearance Overall: well developed 11/22/2014 None Full Exam - General 1994 Constitutional general appearance Overall: in no acute distress 11/22/2014 None Full Exam - General 1994 Constitutional general appearance Overall: well nourished 11/22/2014 None Full Exam - General 1994 Eyes conjunctiva /eyelids Overall: conjunctiva clear 11/22/2014 None Full Exam - General 1994 Eyes conjunctiva /eyelids Overall: cornea clear 11/22/2014 None Full Exam - General 1994 Eyes conjunctiva /eyelids Overall: eyelids normal 11/22/2014 None Full Exam - General 1994 Ears/Nose/Throat otoscopic exam Overall: external auditory canals clear 11/22/2014 None Full Exam - General 1994 Ears/Nose/Throat otoscopic exam Overall: tympanic membranes clear 11/22/2014 None Full Exam - General 1994 Ears/Nose/Throat oral cavity/pharynx/larynx Overall: oral mucosa clear 11/22/2014 None Full Exam - General 1994 Ears/Nose/Throat oral cavity/pharynx/larynx Overall: oropharyngeal mucosa clear 11/22/2014 None Full Exam - General 1994 Ears/Nose/Throat oral cavity/pharynx/larynx Overall: no masses 11/22/2014 None Full Exam - General 1994 Respiratory auscultation Overall: breath sounds clear bilaterally 11/22/2014 None Full Exam - General 1994 Respiratory respiratory effort/rhythm Overall: no retractions 11/22/2014 None Full Exam - General 1994 Respiratory respiratory effort/rhythm Overall: normal rate 11/22/2014 None Full Exam - General 1994 Cardiovascular extremities Overall: no clubbing 11/22/2014 None Full Exam - General 1994 Cardiovascular auscultation of heart Overall: regular rate 11/22/2014 None Full Exam - General 1994 Cardiovascular auscultation of heart Overall: normal heart sounds 11/22/2014 None Full Exam - General 1994 Cardiovascular auscultation of heart Overall: no murmurs 11/22/2014 None Full Exam - General 1994 Abdomen abdominal exam Overall: no tenderness 11/22/2014 None Full Exam - General 1994 Abdomen abdominal exam Overall: normal bowel sounds 11/22/2014 None Full Exam - General 1994 Musculoskeletal gait and station Gait: asymmetric 11/22/2014 None Full Exam - General 1994 Neurologic deep tendon reflexes Overall: deep tendon reflexes intact 11/22/2014 None Full Exam - General 1994 Neurologic cranial nerves Overall: crainial nerves 2 - 12 grossly intact 11/22/2014 None Full Exam - General 1994 Psychiatric orientation/consciousness Overall: oriented to person, place and time 11/22/2014 None Full Exam - General 1994 Musculoskeletal spine, ribs and pelvis Spine: tender @ cervical spine 11/22/2014 None Full Exam - General 1994 Musculoskeletal head and neck Head: atraumatic 11/22/2014 None Full Exam - General 1994 Musculoskeletal head and neck Head: normocephalic 11/22/2014 None Full Exam - General 1994 Musculoskeletal head and neck Deformities: no deformities 11/22/2014 None Full Exam - General 1994 Musculoskeletal head and neck Cervical Spine: tender 11/22/2014 None Full Exam - Cardiology Eyes conjunctiva/ eyelids Overall: conjunctiva clear 10/27/2014 None Full Exam - Cardiology Eyes conjunctiva/ eyelids Overall: eyelids normal 10/27/2014 None Full Exam - Cardiology Respiratory auscultation Overall: breath sounds clear bilaterally 10/27/2014 None Full Exam - Cardiology Cardiovascular auscultation of heart Overall: regular rate 10/27/2014 None Full Exam - Cardiology Cardiovascular auscultation of heart Overall: normal heart sounds 10/27/2014 None Full Exam - Cardiology Constitutional general appearance Overall: well nourished 10/27/2014 None Full Exam - Cardiology Constitutional general appearance Overall: well developed 10/27/2014 None Full Exam - Cardiology Constitutional general appearance Overall: in no acute distress 10/27/2014 None Full Exam - Cardiology Psychiatric orientation/consciousness Overall: oriented to person, place and time 10/27/2014 None Full Exam - Cardiology Abdomen abdominal exam Overall: no tenderness 10/27/2014 None Full Exam - Cardiology Abdomen abdominal exam Overall: normal bowel sounds 10/27/2014 None Full Exam - General 1994 Constitutional general appearance Overall: well developed 10/15/2014 None Full Exam - General 1994 Constitutional general appearance Overall: in no acute distress 10/15/2014 None Full Exam - General 1994 Constitutional general appearance Overall: well nourished 10/15/2014 None Full Exam - General 1994 Eyes conjunctiva /eyelids Overall: conjunctiva clear 10/15/2014 None Full Exam - General 1994 Eyes conjunctiva /eyelids Overall: cornea clear 10/15/2014 None Full Exam - General 1994 Eyes conjunctiva /eyelids Overall: eyelids normal 10/15/2014 None Full Exam - General 1994 Ears/Nose/Throat otoscopic exam Overall: external auditory canals clear 10/15/2014 None Full Exam - General 1994 Ears/Nose/Throat otoscopic exam Overall: tympanic membranes clear 10/15/2014 None Full Exam - General 1994 Ears/Nose/Throat oral cavity/pharynx/larynx Overall: oral mucosa clear 10/15/2014 None Full Exam - General 1994 Ears/Nose/Throat oral cavity/pharynx/larynx Overall: oropharyngeal mucosa clear 10/15/2014 None Full Exam - General 1994 Ears/Nose/Throat oral cavity/pharynx/larynx Overall: no masses 10/15/2014 None Full Exam - General 1994 Respiratory auscultation Overall: breath sounds clear bilaterally 10/15/2014 None Full Exam - General 1994 Respiratory respiratory effort/rhythm Overall: no retractions 10/15/2014 None Full Exam - General 1994 Respiratory respiratory effort/rhythm Overall: normal rate 10/15/2014 None Full Exam - General 1994 Cardiovascular extremities Overall: no clubbing 10/15/2014 None Full Exam - General 1994 Cardiovascular auscultation of heart Overall: regular rate 10/15/2014 None Full Exam - General 1994 Cardiovascular auscultation of heart Overall: normal heart sounds 10/15/2014 None Full Exam - General 1994 Cardiovascular auscultation of heart Overall: no murmurs 10/15/2014 None Full Exam - General 1994 Abdomen abdominal exam Overall: no tenderness 10/15/2014 None Full Exam - General 1994 Abdomen abdominal exam Overall: normal bowel sounds 10/15/2014 None Full Exam - General 1994 Musculoskeletal gait and station Gait: asymmetric 10/15/2014 None Full Exam - General 1994 Neurologic deep tendon reflexes Overall: deep tendon reflexes intact 10/15/2014 None Full Exam - General 1994 Neurologic cranial nerves Overall: crainial nerves 2 - 12 grossly intact 10/15/2014 None Full Exam - General 1994 Psychiatric orientation/consciousness Overall: oriented to person, place and time 10/15/2014 None Full Exam - General 1994 Constitutional general appearance Overall: well developed 09/30/2014 None Full Exam - General 1994 Constitutional general appearance Overall: in no acute distress 09/30/2014 None Full Exam - General 1994 Constitutional general appearance Overall: well nourished 09/30/2014 None Full Exam - General 1994 Eyes conjunctiva /eyelids Overall: conjunctiva clear 09/30/2014 None Full Exam - General 1994 Eyes conjunctiva /eyelids Overall: cornea clear 09/30/2014 None Full Exam - General 1994 Eyes conjunctiva /eyelids Overall: eyelids normal 09/30/2014 None Full Exam - General 1994 Eyes pupils and irises Overall: pupils equal, round, reactive to light and accomodation 09/30/2014 maxillary sinus tenderness especially on the left Full Exam - General 1994 Ears/Nose/Throat otoscopic exam Overall: external auditory canals clear 09/30/2014 None Full Exam - General 1994 Ears/Nose/Throat otoscopic exam Overall: tympanic membranes clear 09/30/2014 None Full Exam - General 1994 Ears/Nose/Throat oral cavity/pharynx/larynx Overall: oral mucosa clear 09/30/2014 None Full Exam - General 1994 Ears/Nose/Throat oral cavity/pharynx/larynx Overall: oropharyngeal mucosa clear 09/30/2014 None Full Exam - General 1994 Ears/Nose/Throat oral cavity/pharynx/larynx Overall: no masses 09/30/2014 None Full Exam - General 1994 Respiratory auscultation Overall: breath sounds clear bilaterally 09/30/2014 None Full Exam - General 1994 Respiratory respiratory effort/rhythm Overall: no retractions 09/30/2014 None Full Exam - General 1994 Respiratory respiratory effort/rhythm Overall: normal rate 09/30/2014 None Full Exam - General 1994 Cardiovascular extremities Overall: no clubbing 09/30/2014 None Full Exam - General 1994 Cardiovascular auscultation of heart Overall: regular rate 09/30/2014 None Full Exam - General 1994 Cardiovascular auscultation of heart Overall: normal heart sounds 09/30/2014 None Full Exam - General 1994 Cardiovascular auscultation of heart Overall: no murmurs 09/30/2014 None Full Exam - General 1994 Abdomen abdominal exam Overall: no tenderness 09/30/2014 None Full Exam - General 1994 Abdomen abdominal exam Overall: normal bowel sounds 09/30/2014 None Full Exam - General 1994 Musculoskeletal gait and station Gait: asymmetric 09/30/2014 None Full Exam - General 1994 Neurologic deep tendon reflexes Overall: deep tendon reflexes intact 09/30/2014 None Full Exam - General 1994 Neurologic cranial nerves Overall: crainial nerves 2 - 12 grossly intact 09/30/2014 None Full Exam - General 1994 Psychiatric orientation/consciousness Overall: oriented to person, place and time 09/30/2014 None Full Exam - General 1994 Constitutional general appearance Overall: well developed 07/14/2014 None Full Exam - General 1994 Constitutional general appearance Overall: in no acute distress 07/14/2014 None Full Exam - General 1994 Constitutional general appearance Overall: well nourished 07/14/2014 None Full Exam - General 1994 Eyes conjunctiva /eyelids Overall: conjunctiva clear 07/14/2014 None Full Exam - General 1994 Eyes conjunctiva /eyelids Overall: cornea clear 07/14/2014 None Full Exam - General 1994 Eyes conjunctiva /eyelids Overall: eyelids normal 07/14/2014 None Full Exam - General 1994 Eyes pupils and irises Overall: pupils equal, round, reactive to light and accomodation 07/14/2014 maxillary sinus tenderness especially on the left Full Exam - General 1994 Ears/Nose/Throat otoscopic exam Overall: external auditory canals clear 07/14/2014 None Full Exam - General 1994 Ears/Nose/Throat otoscopic exam Overall: tympanic membranes clear 07/14/2014 None Full Exam - General 1994 Ears/Nose/Throat oral cavity/pharynx/larynx Overall: oral mucosa clear 07/14/2014 None Full Exam - General 1994 Ears/Nose/Throat oral cavity/pharynx/larynx Overall: oropharyngeal mucosa clear 07/14/2014 None Full Exam - General 1994 Ears/Nose/Throat oral cavity/pharynx/larynx Overall: no masses 07/14/2014 None Full Exam - General 1994 Respiratory auscultation Overall: breath sounds clear bilaterally 07/14/2014 None Full Exam - General 1994 Respiratory respiratory effort/rhythm Overall: no retractions 07/14/2014 None Full Exam - General 1994 Respiratory respiratory effort/rhythm Overall: normal rate 07/14/2014 None Full Exam - General 1994 Cardiovascular extremities Overall: no clubbing 07/14/2014 None Full Exam - General 1994 Cardiovascular auscultation of heart Overall: regular rate 07/14/2014 None Full Exam - General 1994 Cardiovascular auscultation of heart Overall: normal heart sounds 07/14/2014 None Full Exam - General 1994 Cardiovascular auscultation of heart Overall: no murmurs 07/14/2014 None Full Exam - General 1994 Abdomen abdominal exam Overall: no tenderness 07/14/2014 None Full Exam - General 1994 Abdomen abdominal exam Overall: normal bowel sounds 07/14/2014 None Full Exam - General 1994 Musculoskeletal digits and nails Digits: cyanosis 07/14/2014 very mild cyanosis of feet Full Exam - General 1994 Musculoskeletal gait and station Gait: asymmetric 07/14/2014 None Full Exam - General 1994 Neurologic deep tendon reflexes Overall: deep tendon reflexes intact 07/14/2014 None Full Exam - General 1994 Neurologic cranial nerves Overall: crainial nerves 2 - 12 grossly intact 07/14/2014 None Full Exam - General 1994 Psychiatric orientation/consciousness Overall: oriented to person, place and time 07/14/2014 None Full Exam - General 1994 Constitutional general appearance Overall: well developed 06/23/2014 None Full Exam - General 1994 Constitutional general appearance Overall: in no acute distress 06/23/2014 None Full Exam - General 1994 Constitutional general appearance Overall: well nourished 06/23/2014 None Full Exam - General 1994 Eyes conjunctiva /eyelids Overall: conjunctiva clear 06/23/2014 None Full Exam - General 1994 Eyes conjunctiva /eyelids Overall: cornea clear 06/23/2014 None Full Exam - General 1994 Eyes conjunctiva /eyelids Overall: eyelids normal 06/23/2014 None Full Exam - General 1994 Eyes pupils and irises Overall: pupils equal, round, reactive to light and accomodation 06/23/2014 maxillary sinus tenderness especially on the left Full Exam - General 1994 Ears/Nose/Throat otoscopic exam Overall: external auditory canals clear 06/23/2014 None Full Exam - General 1994 Ears/Nose/Throat otoscopic exam Overall: tympanic membranes clear 06/23/2014 None Full Exam - General 1994 Ears/Nose/Throat oral cavity/pharynx/larynx Overall: oral mucosa clear 06/23/2014 None Full Exam - General 1994 Ears/Nose/Throat oral cavity/pharynx/larynx Overall: oropharyngeal mucosa clear 06/23/2014 None Full Exam - General 1994 Ears/Nose/Throat oral cavity/pharynx/larynx Overall: no masses 06/23/2014 None Full Exam - General 1994 Respiratory auscultation Overall: breath sounds clear bilaterally 06/23/2014 None Full Exam - General 1994 Respiratory respiratory effort/rhythm Overall: no retractions 06/23/2014 None Full Exam - General 1994 Respiratory respiratory effort/rhythm Overall: normal rate 06/23/2014 None Full Exam - General 1994 Cardiovascular extremities Overall: no clubbing 06/23/2014 None Full Exam - General 1994 Cardiovascular auscultation of heart Overall: regular rate 06/23/2014 None Full Exam - General 1994 Cardiovascular auscultation of heart Overall: normal heart sounds 06/23/2014 None Full Exam - General 1994 Cardiovascular auscultation of heart Overall: no murmurs 06/23/2014 None Full Exam - General 1994 Abdomen abdominal exam Overall: no tenderness 06/23/2014 None Full Exam - General 1994 Abdomen abdominal exam Overall: normal bowel sounds 06/23/2014 None Full Exam - General 1994 Musculoskeletal gait and station Gait: asymmetric 06/23/2014 None Full Exam - General 1994 Neurologic deep tendon reflexes Overall: deep tendon reflexes intact 06/23/2014 None Full Exam - General 1994 Neurologic cranial nerves Overall: crainial nerves 2 - 12 grossly intact 06/23/2014 None Full Exam - General 1994 Psychiatric orientation/consciousness Overall: oriented to person, place and time 06/23/2014 None Full Exam - General 1994 Constitutional general appearance Overall: well developed 04/09/2014 None Full Exam - General 1994 Constitutional general appearance Overall: in no acute distress 04/09/2014 None Full Exam - General 1994 Constitutional general appearance Overall: well nourished 04/09/2014 None Full Exam - General 1994 Eyes conjunctiva /eyelids Overall: conjunctiva clear 04/09/2014 None Full Exam - General 1994 Eyes conjunctiva /eyelids Overall: cornea clear 04/09/2014 None Full Exam - General 1994 Eyes conjunctiva /eyelids Overall: eyelids normal 04/09/2014 None Full Exam - General 1994 Ears/Nose/Throat otoscopic exam Overall: external auditory canals clear 04/09/2014 None Full Exam - General 1994 Ears/Nose/Throat otoscopic exam Overall: tympanic membranes clear 04/09/2014 None Full Exam - General 1994 Ears/Nose/Throat oral cavity/pharynx/larynx Overall: oral mucosa clear 04/09/2014 None Full Exam - General 1994 Ears/Nose/Throat oral cavity/pharynx/larynx Overall: oropharyngeal mucosa clear 04/09/2014 None Full Exam - General 1994 Ears/Nose/Throat oral cavity/pharynx/larynx Overall: no masses 04/09/2014 None Full Exam - General 1995 Respiratory auscultation Overall: breath sounds clear bilaterally 04/09/2014 None Full Exam - General 1994 Respiratory respiratory effort/rhythm Overall: no retractions 04/09/2014 None Full Exam - General 1994 Respiratory respiratory effort/rhythm Overall: normal rate 04/09/2014 None Full Exam - General 1995 Cardiovascular extremities Overall: no clubbing 04/09/2014 None Full Exam - General 1994 Cardiovascular auscultation of heart Overall: regular rate 04/09/2014 None Full Exam - General 1994 Cardiovascular auscultation of heart Overall: normal heart sounds 04/09/2014 None Full Exam - General 1994 Cardiovascular auscultation of heart Overall: no murmurs 04/09/2014 None Full Exam - General 1994 Abdomen abdominal exam Overall: normal bowel sounds 04/09/2014 None Full Exam - General 1994 Musculoskeletal gait and station Gait: asymmetric 04/09/2014 None Full Exam - General 1994 Neurologic deep tendon reflexes Overall: deep tendon reflexes intact 04/09/2014 None Full Exam - General 1994 Neurologic cranial nerves Overall: crainial nerves 2 - 12 grossly intact 04/09/2014 None Full Exam - General 1994 Psychiatric orientation/consciousness Overall: oriented to person, place and time 04/09/2014 None Full Exam - General 1994 Chest/Breast breast/chest inspection Chest shape: a normal exam 04/09/2014 chest wall tender to palpation Full Exam - General 1994 Abdomen abdominal exam Epigastric: tender to palpation 04/09/2014 None Full Exam - General 1994 Constitutional general appearance Overall: well developed 03/16/2014 None Full Exam - General 1994 Constitutional general appearance Overall: in no acute distress 03/16/2014 None Full Exam - General 1994 Constitutional general appearance Overall: well nourished 03/16/2014 None Full Exam - General 1994 Eyes conjunctiva /eyelids Overall: conjunctiva clear 03/16/2014 None Full Exam - General 1994 Eyes conjunctiva /eyelids Overall: cornea clear 03/16/2014 None Full Exam - General 1994 Eyes conjunctiva /eyelids Overall: eyelids normal 03/16/2014 None Full Exam - General 1994 Eyes pupils and irises Overall: pupils equal, round, reactive to light and accomodation 03/16/2014 maxillary sinus tenderness especially on the left Full Exam - General 1994 Ears/Nose/Throat otoscopic exam Overall: external auditory canals clear 03/16/2014 None Full Exam - General 1995 Ears/Nose/Throat otoscopic exam Overall: tympanic membranes clear 03/16/2014 None Full Exam - General 1995 Ears/Nose/Throat oral cavity/pharynx/larynx Overall: oral mucosa clear 03/16/2014 None Full Exam - General 1995 Ears/Nose/Throat oral cavity/pharynx/larynx Overall: oropharyngeal mucosa clear 03/16/2014 None Full Exam - General 1994 Ears/Nose/Throat oral cavity/pharynx/larynx Overall: no masses 03/16/2014 None Full Exam - General 1994 Respiratory auscultation Overall: breath sounds clear bilaterally 03/16/2014 None Full Exam - General 1994 Respiratory respiratory effort/rhythm Overall: no retractions 03/16/2014 None Full Exam - General 1994 Respiratory respiratory effort/rhythm Overall: normal rate 03/16/2014 None Full Exam - General 1994 Cardiovascular extremities Overall: no clubbing 03/16/2014 None Full Exam - General 1994 Cardiovascular auscultation of heart Overall: regular rate 03/16/2014 None Full Exam - General 1994 Cardiovascular auscultation of heart Overall: normal heart sounds 03/16/2014 None Full Exam - General 1994 Cardiovascular auscultation of heart Overall: no murmurs 03/16/2014 None Full Exam - General 1994 Abdomen abdominal exam Overall: no tenderness 03/16/2014 None Full Exam - General 1994 Abdomen abdominal exam Overall: normal bowel sounds 03/16/2014 None Full Exam - General 1994 Musculoskeletal gait and station Gait: asymmetric 03/16/2014 None Full Exam - General 1994 Neurologic deep tendon reflexes Overall: deep tendon reflexes intact 03/16/2014 None Full Exam - General 1994 Neurologic cranial nerves Overall: crainial nerves 2 - 12 grossly intact 03/16/2014 None Full Exam - General 1994 Psychiatric orientation/consciousness Overall: oriented to person, place and time 03/16/2014 None Full Exam - General 1994 Musculoskeletal digits and nails Digits: cyanosis 03/16/2014 very mild cyanosis of feet Full Exam - General 1994 Constitutional general appearance Overall: well developed 01/12/2014 None Full Exam - General 1994 Constitutional general appearance Overall: in no acute distress 01/12/2014 None Full Exam - General 1994 Constitutional general appearance Overall: well nourished 01/12/2014 None Full Exam - General 1994 Eyes conjunctiva /eyelids Overall: conjunctiva clear 01/12/2014 None Full Exam - General 1994 Eyes conjunctiva /eyelids Overall: cornea clear 01/12/2014 None Full Exam - General 1994 Eyes conjunctiva /eyelids Overall: eyelids normal 01/12/2014 None Full Exam - General 1994 Eyes pupils and irises Overall: pupils equal, round, reactive to light and accomodation 01/12/2014 maxillary sinus tenderness especially on the left Full Exam - General 1994 Ears/Nose/Throat otoscopic exam Overall: external auditory canals clear 01/12/2014 None Full Exam - General 1994 Ears/Nose/Throat otoscopic exam Overall: tympanic membranes clear 01/12/2014 None Full Exam - General 1994 Ears/Nose/Throat oral cavity/pharynx/larynx Overall: oral mucosa clear 01/12/2014 None Full Exam - General 1994 Ears/Nose/Throat oral cavity/pharynx/larynx Overall: oropharyngeal mucosa clear 01/12/2014 None Full Exam - General 1994 Ears/Nose/Throat oral cavity/pharynx/larynx Overall: no masses 01/12/2014 None Full Exam - General 1994 Respiratory auscultation Overall: breath sounds clear bilaterally 01/12/2014 None Full Exam - General 1994 Respiratory respiratory effort/rhythm Overall: no retractions 01/12/2014 None Full Exam - General 1994 Respiratory respiratory effort/rhythm Overall: normal rate 01/12/2014 None Full Exam - General 1994 Cardiovascular extremities Overall: no clubbing 01/12/2014 None Full Exam - General 1994 Cardiovascular auscultation of heart Overall: regular rate 01/12/2014 None Full Exam - General 1994 Cardiovascular auscultation of heart Overall: normal heart sounds 01/12/2014 None Full Exam - General 1994 Cardiovascular auscultation of heart Overall: no murmurs 01/12/2014 None Full Exam - General 1994 Abdomen abdominal exam Overall: no tenderness 01/12/2014 None Full Exam - General 1994 Abdomen abdominal exam Overall: normal bowel sounds 01/12/2014 None Full Exam - General 1994 Musculoskeletal gait and station Gait: asymmetric 01/12/2014 None Full Exam - General 1994 Neurologic deep tendon reflexes Overall: deep tendon reflexes intact 01/12/2014 None Full Exam - General 1994 Neurologic cranial nerves Overall: crainial nerves 2 - 12 grossly intact 01/12/2014 None Full Exam - General 1994 Psychiatric orientation/consciousness Overall: oriented to person, place and time 01/12/2014 None Full Exam - General 1994 Constitutional general appearance Overall: well developed 12/15/2013 None Full Exam - General 1994 Constitutional general appearance Overall: in no acute distress 12/15/2013 None Full Exam - General 1994 Constitutional general appearance Overall: well nourished 12/15/2013 None Full Exam - General 1994 Eyes conjunctiva /eyelids Overall: conjunctiva clear 12/15/2013 None Full Exam - General 1994 Eyes conjunctiva /eyelids Overall: cornea clear 12/15/2013 None Full Exam - General 1994 Eyes conjunctiva /eyelids Overall: eyelids normal 12/15/2013 None Full Exam - General 1994 Eyes pupils and irises Overall: pupils equal, round, reactive to light and accomodation 12/15/2013 maxillary sinus tenderness especially on the left Full Exam - General 1994 Ears/Nose/Throat otoscopic exam Overall: external auditory canals clear 12/15/2013 None Full Exam - General 1994 Ears/Nose/Throat otoscopic exam Overall: tympanic membranes clear 12/15/2013 None Full Exam - General 1994 Ears/Nose/Throat oral cavity/pharynx/larynx Overall: oral mucosa clear 12/15/2013 None Full Exam - General 1994 Ears/Nose/Throat oral cavity/pharynx/larynx Overall: oropharyngeal mucosa clear 12/15/2013 None Full Exam - General 1994 Ears/Nose/Throat oral cavity/pharynx/larynx Overall: no masses 12/15/2013 None Full Exam - General 1994 Respiratory auscultation Overall: breath sounds clear bilaterally 12/15/2013 None Full Exam - General 1994 Respiratory respiratory effort/rhythm Overall: no retractions 12/15/2013 None Full Exam - General 1994 Respiratory respiratory effort/rhythm Overall: normal rate 12/15/2013 None Full Exam - General 1994 Cardiovascular extremities Overall: no clubbing 12/15/2013 None Full Exam - General 1994 Cardiovascular auscultation of heart Overall: regular rate 12/15/2013 None Full Exam - General 1994 Cardiovascular auscultation of heart Overall: normal heart sounds 12/15/2013 None Full Exam - General 1994 Cardiovascular auscultation of heart Overall: no murmurs 12/15/2013 None Full Exam - General 1994 Abdomen abdominal exam Overall: no tenderness 12/15/2013 None Full Exam - General 1994 Abdomen abdominal exam Overall: normal bowel sounds 12/15/2013 None Full Exam - General 1994 Musculoskeletal gait and station Gait: asymmetric 12/15/2013 None Full Exam - General 1994 Neurologic deep tendon reflexes Overall: deep tendon reflexes intact 12/15/2013 None Full Exam - General 1994 Neurologic cranial nerves Overall: crainial nerves 2 - 12 grossly intact 12/15/2013 None Full Exam - General 1994 Psychiatric orientation/consciousness Overall: oriented to person, place and time 12/15/2013 None Full Exam - General 1994 Constitutional general appearance Overall: well developed 10/20/2013 None Full Exam - General 1994 Constitutional general appearance Overall: in no acute distress 10/20/2013 None Full Exam - General 1994 Constitutional general appearance Overall: well nourished 10/20/2013 None Full Exam - General 1994 Eyes conjunctiva /eyelids Overall: conjunctiva clear 10/20/2013 None Full Exam - General 1994 Eyes conjunctiva /eyelids Overall: cornea clear 10/20/2013 None Full Exam - General 1994 Eyes conjunctiva /eyelids Overall: eyelids normal 10/20/2013 None Full Exam - General 1994 Eyes pupils and irises Overall: pupils equal, round, reactive to light and accomodation 10/20/2013 maxillary sinus tenderness especially on the left Full Exam - General 1994 Ears/Nose/Throat oral cavity/pharynx/larynx Overall: oral mucosa clear 10/20/2013 None Full Exam - General 1994 Ears/Nose/Throat oral cavity/pharynx/larynx Overall: oropharyngeal mucosa clear 10/20/2013 None Full Exam - General 1994 Ears/Nose/Throat oral cavity/pharynx/larynx Overall: no masses 10/20/2013 None Full Exam - General 1994 Respiratory auscultation Overall: breath sounds clear bilaterally 10/20/2013 None Full Exam - General 1994 Respiratory respiratory effort/rhythm Overall: no retractions 10/20/2013 None Full Exam - General 1994 Respiratory respiratory effort/rhythm Overall: normal rate 10/20/2013 None Full Exam - General 1994 Cardiovascular extremities Overall: no clubbing 10/20/2013 None Full Exam - General 1994 Cardiovascular auscultation of heart Overall: regular rate 10/20/2013 None Full Exam - General 1994 Cardiovascular auscultation of heart Overall: normal heart sounds 10/20/2013 None Full Exam - General 1994 Cardiovascular auscultation of heart Overall: no murmurs 10/20/2013 None Full Exam - General 1994 Musculoskeletal gait and station Gait: asymmetric 10/20/2013 None Full Exam - General 1994 Psychiatric orientation/consciousness Overall: oriented to person, place and time 10/20/2013 None Full Exam - General 1994 Integument inspection of skin Pigmentation: hyperpigmentation 10/20/2013 small reddish discoloration on scalp at crown of head - tender when pulls on hair coming from reddish lesion. Full Exam - ENT Constitutional general appearance Overall: well nourished 09/15/2013 None Full Exam - ENT Constitutional general appearance Overall: well developed 09/15/2013 None Full Exam - ENT Constitutional general appearance Overall: in no acute distress 09/15/2013 None Full Exam - ENT Ears/Nose/Throat otoscopic exam Overall: external auditory canals normal 09/15/2013 None Full Exam - ENT Ears/Nose/Throat otoscopic exam Overall: tympanic membranes normal 09/15/2013 None Full Exam - ENT Ears/Nose/Throat oropharynx Overall: oral mucosa clear 09/15/2013 None Full Exam - ENT Face and Head palpation Left maxillary sinus: tender 09/15/2013 None Full Exam - ENT Face and Head palpation Right maxillary sinus: tender 09/15/2013 None Full Exam - ENT Face and Head palpation Left frontal sinus: tender 09/15/2013 None Full Exam - ENT Face and Head palpation Right frontal sinus: tender 09/15/2013 None Full Exam - ENT Respiratory auscultation Overall: breath sounds clear bilaterally 09/15/2013 None Full Exam - ENT Cardiovascular auscultation of heart Overall: regular rate 09/15/2013 None Full Exam - ENT Cardiovascular auscultation of heart Overall: normal heart sounds 09/15/2013 None Full Exam - ENT Cardiovascular auscultation of heart Overall: no murmurs 09/15/2013 None Full Exam - ENT Lymphatic palpation of lymph nodes Overall: anterior cervical chain benign 09/15/2013 None Full Exam - ENT Lymphatic palpation of lymph nodes Overall: posterior cervical chain benign 09/15/2013 None Full Exam - ENT Neurologic orientation Overall: oriented to person, place and time 09/15/2013 None Full Exam - General 1994 Constitutional general appearance Overall: well developed 07/27/2013 None Full Exam - General 1994 Constitutional general appearance Overall: in no acute distress 07/27/2013 None Full Exam - General 1994 Constitutional general appearance Overall: well nourished 07/27/2013 None Full Exam - General 1994 Eyes conjunctiva /eyelids Overall: conjunctiva clear 07/27/2013 None Full Exam - General 1994 Eyes conjunctiva /eyelids Overall: cornea clear 07/27/2013 None Full Exam - General 1994 Eyes conjunctiva /eyelids Overall: eyelids normal 07/27/2013 None Full Exam - General 1994 Eyes pupils and irises Overall: pupils equal, round, reactive to light and accomodation 07/27/2013 maxillary sinus tenderness especially on the left Full Exam - General 1995 Ears/Nose/Throat otoscopic exam Overall: external auditory canals clear 07/27/2013 None Full Exam - General 1995 Ears/Nose/Throat otoscopic exam Overall: tympanic membranes clear 07/27/2013 None Full Exam - General 1995 Ears/Nose/Throat oral cavity/pharynx/larynx Overall: oral mucosa clear 07/27/2013 None Full Exam - General 1995 Ears/Nose/Throat oral cavity/pharynx/larynx Overall: oropharyngeal mucosa clear 07/27/2013 None Full Exam - General 1995 Ears/Nose/Throat oral cavity/pharynx/larynx Overall: no masses 07/27/2013 None Full Exam - General 1994 Respiratory auscultation Overall: breath sounds clear bilaterally 07/27/2013 None Full Exam - General 1994 Respiratory respiratory effort/rhythm Overall: no retractions 07/27/2013 None Full Exam - General 1994 Respiratory respiratory effort/rhythm Overall: normal rate 07/27/2013 None Full Exam - General 1994 Cardiovascular extremities Overall: no clubbing 07/27/2013 None Full Exam - General 1994 Cardiovascular auscultation of heart Overall: regular rate 07/27/2013 None Full Exam - General 1994 Cardiovascular auscultation of heart Overall: normal heart sounds 07/27/2013 None Full Exam - General 1994 Cardiovascular auscultation of heart Overall: no murmurs 07/27/2013 None Full Exam - General 1994 Abdomen abdominal exam Overall: no tenderness 07/27/2013 None Full Exam - General 1994 Abdomen abdominal exam Overall: normal bowel sounds 07/27/2013 None Full Exam - General 1994 Musculoskeletal gait and station Gait: asymmetric 07/27/2013 None Full Exam - General 1994 Neurologic deep tendon reflexes Overall: deep tendon reflexes intact 07/27/2013 None Full Exam - General 1994 Neurologic cranial nerves Overall: crainial nerves 2 - 12 grossly intact 07/27/2013 None Full Exam - General 1994 Psychiatric orientation/consciousness Overall: oriented to person, place and time 07/27/2013 None Full Exam - ENT Constitutional general appearance Overall: well nourished 06/09/2013 None Full Exam - ENT Constitutional general appearance Overall: well developed 06/09/2013 None Full Exam - ENT Constitutional general appearance Overall: in no acute distress 06/09/2013 None Full Exam - ENT Neurologic orientation Overall: oriented to person, place and time 06/09/2013 None Full Exam - ENT Lymphatic palpation of lymph nodes Overall: anterior cervical chain benign 06/09/2013 None Full Exam - ENT Lymphatic palpation of lymph nodes Overall: posterior cervical chain benign 06/09/2013 None Full Exam - ENT Cardiovascular auscultation of heart Overall: no murmurs 06/09/2013 None Full Exam - ENT Cardiovascular auscultation of heart Overall: normal heart sounds 06/09/2013 None Full Exam - ENT Cardiovascular auscultation of heart Overall: regular rate 06/09/2013 None Full Exam - ENT Respiratory auscultation Overall: breath sounds clear bilaterally 06/09/2013 None Full Exam - ENT Face and Head palpation Left maxillary sinus: tender 06/09/2013 None Full Exam - ENT Face and Head palpation Right maxillary sinus: tender 06/09/2013 None Full Exam - ENT Face and Head palpation Left frontal sinus: tender 06/09/2013 None Full Exam - ENT Face and Head palpation Right frontal sinus: tender 06/09/2013 None Full Exam - ENT Ears/Nose/Throat otoscopic exam Overall: external auditory canals normal 06/09/2013 None Full Exam - ENT Ears/Nose/Throat otoscopic exam Overall: tympanic membranes normal 06/09/2013 None Full Exam - ENT Ears/Nose/Throat oropharynx Overall: oral mucosa clear 06/09/2013 None Full Exam - General 1994 Ears/Nose/Throat otoscopic exam Overall: external auditory canals clear 04/20/2013 None Full Exam - General 1994 Ears/Nose/Throat otoscopic exam Overall: tympanic membranes clear 04/20/2013 None Full Exam - General 1994 Ears/Nose/Throat oral cavity/pharynx/larynx Overall: oral mucosa clear 04/20/2013 None Full Exam - General 1994 Ears/Nose/Throat oral cavity/pharynx/larynx Overall: oropharyngeal mucosa clear 04/20/2013 None Full Exam - General 1994 Ears/Nose/Throat oral cavity/pharynx/larynx Overall: no masses 04/20/2013 None Full Exam - General 1994 Respiratory auscultation Overall: breath sounds clear bilaterally 04/20/2013 None Full Exam - General 1994 Respiratory respiratory effort/rhythm Overall: no retractions 04/20/2013 None Full Exam - General 1994 Respiratory respiratory effort/rhythm Overall: normal rate 04/20/2013 None Full Exam - General 1995 Cardiovascular extremities Overall: no clubbing 04/20/2013 None Full Exam - General 1995 Cardiovascular auscultation of heart Overall: regular rate 04/20/2013 None Full Exam - General 1995 Cardiovascular auscultation of heart Overall: normal heart sounds 04/20/2013 None Full Exam - General 1994 Cardiovascular auscultation of heart Overall: no murmurs 04/20/2013 None Full Exam - General 1994 Abdomen abdominal exam Overall: no tenderness 04/20/2013 None Full Exam - General 1995 Constitutional general appearance Overall: well developed 04/20/2013 None Full Exam - General 1995 Constitutional general appearance Overall: in no acute distress 04/20/2013 None Full Exam - General 1995 Constitutional general appearance Overall: well nourished 04/20/2013 None Full Exam - General 1994 Eyes conjunctiva /eyelids Overall: conjunctiva clear 04/20/2013 None Full Exam - General 1994 Eyes conjunctiva /eyelids Overall: cornea clear 04/20/2013 None Full Exam - General 1995 Eyes conjunctiva /eyelids Overall: eyelids normal 04/20/2013 None Full Exam - General 1994 Eyes pupils and irises Overall: pupils equal, round, reactive to light and accomodation 04/20/2013 maxillary sinus tenderness especially on the left Full Exam - General 1994 Abdomen abdominal exam Overall: normal bowel sounds 04/20/2013 None Full Exam - General 1994 Musculoskeletal gait and station Gait: asymmetric 04/20/2013 None Full Exam - General 1994 Neurologic deep tendon reflexes Overall: deep tendon reflexes intact 04/20/2013 None Full Exam - General 1994 Neurologic cranial nerves Overall: crainial nerves 2 - 12 grossly intact 04/20/2013 None Full Exam - General 1994 Psychiatric orientation/consciousness Overall: oriented to person, place and time 04/20/2013 None Full Exam - General 1994 Abdomen abdominal exam Epigastric: tender to palpation 04/20/2013 None Full Exam - General 1994 Constitutional general appearance Overall: well developed 03/23/2013 None Full Exam - General 1994 Constitutional general appearance Overall: in no acute distress 03/23/2013 None Full Exam - General 1994 Constitutional general appearance Overall: well nourished 03/23/2013 None Full Exam - General 1994 Eyes conjunctiva /eyelids Overall: conjunctiva clear 03/23/2013 None Full Exam - General 1994 Eyes conjunctiva /eyelids Overall: cornea clear 03/23/2013 None Full Exam - General 1994 Eyes conjunctiva /eyelids Overall: eyelids normal 03/23/2013 None Full Exam - General 1994 Eyes pupils and irises Overall: pupils equal, round, reactive to light and accomodation 03/23/2013 maxillary sinus tenderness especially on the left Full Exam - General 1995 Ears/Nose/Throat otoscopic exam Overall: external auditory canals clear 03/23/2013 None Full Exam - General 1995 Ears/Nose/Throat otoscopic exam Overall: tympanic membranes clear 03/23/2013 None Full Exam - General 1995 Ears/Nose/Throat oral cavity/pharynx/larynx Overall: oral mucosa clear 03/23/2013 None Full Exam - General 1994 Ears/Nose/Throat oral cavity/pharynx/larynx Overall: oropharyngeal mucosa clear 03/23/2013 None Full Exam - General 1994 Ears/Nose/Throat oral cavity/pharynx/larynx Overall: no masses 03/23/2013 None Full Exam - General 1994 Respiratory auscultation Overall: breath sounds clear bilaterally 03/23/2013 None Full Exam - General 1994 Respiratory respiratory effort/rhythm Overall: no retractions 03/23/2013 None Full Exam - General 1994 Respiratory respiratory effort/rhythm Overall: normal rate 03/23/2013 None Full Exam - General 1994 Cardiovascular extremities Overall: no clubbing 03/23/2013 None Full Exam - General 1994 Cardiovascular auscultation of heart Overall: regular rate 03/23/2013 None Full Exam - General 1994 Cardiovascular auscultation of heart Overall: normal heart sounds 03/23/2013 None Full Exam - General 1994 Cardiovascular auscultation of heart Overall: no murmurs 03/23/2013 None Full Exam - General 1994 Abdomen abdominal exam Overall: no tenderness 03/23/2013 None Full Exam - General 1994 Abdomen abdominal exam Overall: normal bowel sounds 03/23/2013 None Full Exam - General 1994 Musculoskeletal gait and station Gait: asymmetric 03/23/2013 None Full Exam - General 1994 Neurologic deep tendon reflexes Overall: deep tendon reflexes intact 03/23/2013 None Full Exam - General 1994 Neurologic cranial nerves Overall: crainial nerves 2 - 12 grossly intact 03/23/2013 None Full Exam - General 1994 Psychiatric orientation/consciousness Overall: oriented to person, place and time 03/23/2013 None Full Exam - General 1994 Constitutional general appearance Overall: well developed 01/21/2013 None Full Exam - General 1994 Constitutional general appearance Overall: in no acute distress 01/21/2013 None Full Exam - General 1994 Constitutional general appearance Overall: well nourished 01/21/2013 None Full Exam - General 1994 Eyes conjunctiva /eyelids Overall: conjunctiva clear 01/21/2013 None Full Exam - General 1994 Eyes conjunctiva /eyelids Overall: cornea clear 01/21/2013 None Full Exam - General 1994 Eyes conjunctiva /eyelids Overall: eyelids normal 01/21/2013 None Full Exam - General 1994 Eyes pupils and irises Overall: pupils equal, round, reactive to light and accomodation 01/21/2013 maxillary sinus tenderness especially on the left Full Exam - General 1994 Ears/Nose/Throat otoscopic exam Overall: external auditory canals clear 01/21/2013 None Full Exam - General 1994 Ears/Nose/Throat otoscopic exam Overall: tympanic membranes clear 01/21/2013 None Full Exam - General 1994 Ears/Nose/Throat oral cavity/pharynx/larynx Overall: oral mucosa clear 01/21/2013 None Full Exam - General 1995 Ears/Nose/Throat oral cavity/pharynx/larynx Overall: oropharyngeal mucosa clear 01/21/2013 None Full Exam - General 1995 Ears/Nose/Throat oral cavity/pharynx/larynx Overall: no masses 01/21/2013 None Full Exam - General 1994 Respiratory auscultation Overall: breath sounds clear bilaterally 01/21/2013 None Full Exam - General 1994 Respiratory respiratory effort/rhythm Overall: no retractions 01/21/2013 None Full Exam - General 1994 Respiratory respiratory effort/rhythm Overall: normal rate 01/21/2013 None Full Exam - General 1994 Cardiovascular extremities Overall: no clubbing 01/21/2013 None Full Exam - General 1994 Cardiovascular auscultation of heart Overall: regular rate 01/21/2013 None Full Exam - General 1994 Cardiovascular auscultation of heart Overall: normal heart sounds 01/21/2013 None Full Exam - General 1994 Cardiovascular auscultation of heart Overall: no murmurs 01/21/2013 None Full Exam - General 1994 Abdomen abdominal exam Overall: no tenderness 01/21/2013 None Full Exam - General 1994 Abdomen abdominal exam Overall: normal bowel sounds 01/21/2013 None Full Exam - General 1994 Musculoskeletal gait and station Gait: asymmetric 01/21/2013 None Full Exam - General 1994 Neurologic deep tendon reflexes Overall: deep tendon reflexes intact 01/21/2013 None Full Exam - General 1994 Neurologic cranial nerves Overall: crainial nerves 2 - 12 grossly intact 01/21/2013 None Full Exam - General 1994 Psychiatric orientation/consciousness Overall: oriented to person, place and time 01/21/2013 None Full Exam - General 1995 Constitutional general appearance Overall: well developed 12/25/2012 None Full Exam - General 1994 Constitutional general appearance Overall: in no acute distress 12/25/2012 None Full Exam - General 1994 Constitutional general appearance Overall: well nourished 12/25/2012 None Full Exam - General 1994 Eyes conjunctiva /eyelids Overall: conjunctiva clear 12/25/2012 None Full Exam - General 1994 Eyes conjunctiva /eyelids Overall: cornea clear 12/25/2012 None Full Exam - General 1994 Eyes conjunctiva /eyelids Overall: eyelids normal 12/25/2012 None Full Exam - General 1994 Eyes pupils and irises Overall: pupils equal, round, reactive to light and accomodation 12/25/2012 maxillary sinus tenderness especially on the left Full Exam - General 1994 Ears/Nose/Throat otoscopic exam Overall: external auditory canals clear 12/25/2012 None Full Exam - General 1994 Ears/Nose/Throat otoscopic exam Overall: tympanic membranes clear 12/25/2012 None Full Exam - General 1994 Ears/Nose/Throat oral cavity/pharynx/larynx Overall: oral mucosa clear 12/25/2012 None Full Exam - General 1994 Ears/Nose/Throat oral cavity/pharynx/larynx Overall: oropharyngeal mucosa clear 12/25/2012 None Full Exam - General 1994 Ears/Nose/Throat oral cavity/pharynx/larynx Overall: no masses 12/25/2012 None Full Exam - General 1994 Respiratory auscultation Overall: breath sounds clear bilaterally 12/25/2012 None Full Exam - General 1994 Respiratory respiratory effort/rhythm Overall: no retractions 12/25/2012 None Full Exam - General 1994 Respiratory respiratory effort/rhythm Overall: normal rate 12/25/2012 None Full Exam - General 1994 Cardiovascular extremities Overall: no clubbing 12/25/2012 None Full Exam - General 1994 Cardiovascular auscultation of heart Overall: regular rate 12/25/2012 None Full Exam - General 1994 Cardiovascular auscultation of heart Overall: normal heart sounds 12/25/2012 None Full Exam - General 1995 Cardiovascular auscultation of heart Overall: no murmurs 12/25/2012 None Full Exam - General 1994 Abdomen abdominal exam Overall: no tenderness 12/25/2012 None Full Exam - General 1995 Abdomen abdominal exam Overall: normal bowel sounds 12/25/2012 None Full Exam - General 1994 Musculoskeletal gait and station Gait: asymmetric 12/25/2012 None Full Exam - General 1994 Neurologic deep tendon reflexes Overall: deep tendon reflexes intact 12/25/2012 None Full Exam - General 1994 Neurologic cranial nerves Overall: crainial nerves 2 - 12 grossly intact 12/25/2012 None Full Exam - General 1994 Psychiatric orientation/consciousness Overall: oriented to person, place and time 12/25/2012 None Full Exam - General 1994 Chest/Breast breast and axillae palpation Nipple: non- tender 12/25/2012 None Full Exam - General 1995 Chest/Breast breast and axillae palpation Axillae: no mass 12/25/2012 None Full Exam - General 1994 Chest/Breast breast and axillae palpation Lower outer quadrant: tender 12/25/2012 at the 8 oclock position - small spalpable fibrous breast tissue Full Exam - General 1994 Constitutional general appearance Overall: well developed 10/20/2012 None Full Exam - General 1994 Constitutional general appearance Overall: in no acute distress 10/20/2012 None Full Exam - General 1994 Constitutional general appearance Overall: well nourished 10/20/2012 None Full Exam - General 1994 Eyes conjunctiva /eyelids Overall: conjunctiva clear 10/20/2012 None Full Exam - General 1994 Eyes conjunctiva /eyelids Overall: cornea clear 10/20/2012 None Full Exam - General 1994 Eyes conjunctiva /eyelids Overall: eyelids normal 10/20/2012 None Full Exam - General 1994 Eyes pupils and irises Overall: pupils equal, round, reactive to light and accomodation 10/20/2012 maxillary sinus tenderness especially on the left Full Exam - General 1994 Ears/Nose/Throat otoscopic exam Overall: external auditory canals clear 10/20/2012 None Full Exam - General 1995 Ears/Nose/Throat otoscopic exam Overall: tympanic membranes clear 10/20/2012 None Full Exam - General 1994 Ears/Nose/Throat oral cavity/pharynx/larynx Overall: oral mucosa clear 10/20/2012 None Full Exam - General 1995 Ears/Nose/Throat oral cavity/pharynx/larynx Overall: oropharyngeal mucosa clear 10/20/2012 None Full Exam - General 1995 Ears/Nose/Throat oral cavity/pharynx/larynx Overall: no masses 10/20/2012 None Full Exam - General 1995 Respiratory auscultation Overall: breath sounds clear bilaterally 10/20/2012 None Full Exam - General 1995 Respiratory respiratory effort/rhythm Overall: no retractions 10/20/2012 None Full Exam - General 1994 Respiratory respiratory effort/rhythm Overall: normal rate 10/20/2012 None Full Exam - General 1995 Cardiovascular extremities Overall: no clubbing 10/20/2012 None Full Exam - General 1995 Cardiovascular auscultation of heart Overall: regular rate 10/20/2012 None Full Exam - General 1994 Cardiovascular auscultation of heart Overall: normal heart sounds 10/20/2012 None Full Exam - General 1994 Cardiovascular auscultation of heart Overall: no murmurs 10/20/2012 None Full Exam - General 1994 Abdomen abdominal exam Overall: no tenderness 10/20/2012 None Full Exam - General 1994 Abdomen abdominal exam Overall: normal bowel sounds 10/20/2012 None Full Exam - General 1994 Musculoskeletal gait and station Gait: asymmetric 10/20/2012 None Full Exam - General 1994 Neurologic deep tendon reflexes Overall: deep tendon reflexes intact 10/20/2012 None Full Exam - General 1994 Neurologic cranial nerves Overall: crainial nerves 2 - 12 grossly intact 10/20/2012 None Full Exam - General 1994 Psychiatric orientation/consciousness Overall: oriented to person, place and time 10/20/2012 None Full Exam - General 1994 Constitutional general appearance Overall: well developed 08/11/2012 None Full Exam - General 1994 Constitutional general appearance Overall: in no acute distress 08/11/2012 None Full Exam - General 1994 Constitutional general appearance Overall: well nourished 08/11/2012 None Full Exam - General 1994 Eyes conjunctiva /eyelids Overall: conjunctiva clear 08/11/2012 None Full Exam - General 1994 Eyes conjunctiva /eyelids Overall: cornea clear 08/11/2012 None Full Exam - General 1994 Eyes conjunctiva /eyelids Overall: eyelids normal 08/11/2012 None Full Exam - General 1994 Eyes pupils and irises Overall: pupils equal, round, reactive to light and accomodation 08/11/2012 maxillary sinus tenderness especially on the left Full Exam - General 1994 Ears/Nose/Throat otoscopic exam Overall: external auditory canals clear 08/11/2012 None Full Exam - General 1995 Ears/Nose/Throat otoscopic exam Overall: tympanic membranes clear 08/11/2012 None Full Exam - General 1994 Ears/Nose/Throat oral cavity/pharynx/larynx Overall: oral mucosa clear 08/11/2012 None Full Exam - General 1995 Ears/Nose/Throat oral cavity/pharynx/larynx Overall: oropharyngeal mucosa clear 08/11/2012 None Full Exam - General 1994 Ears/Nose/Throat oral cavity/pharynx/larynx Overall: no masses 08/11/2012 None Full Exam - General 1994 Respiratory auscultation Overall: breath sounds clear bilaterally 08/11/2012 None Full Exam - General 1994 Respiratory respiratory effort/rhythm Overall: no retractions 08/11/2012 None Full Exam - General 1994 Respiratory respiratory effort/rhythm Overall: normal rate 08/11/2012 None Full Exam - General 1994 Cardiovascular extremities Overall: no clubbing 08/11/2012 None Full Exam - General 1994 Cardiovascular auscultation of heart Overall: regular rate 08/11/2012 None Full Exam - General 1994 Cardiovascular auscultation of heart Overall: normal heart sounds 08/11/2012 None Full Exam - General 1994 Cardiovascular auscultation of heart Overall: no murmurs 08/11/2012 None Full Exam - General 1994 Abdomen abdominal exam Overall: no tenderness 08/11/2012 None Full Exam - General 1994 Abdomen abdominal exam Overall: normal bowel sounds 08/11/2012 None Full Exam - General 1994 Musculoskeletal gait and station Gait: asymmetric 08/11/2012 None Full Exam - General 1994 Neurologic deep tendon reflexes Overall: deep tendon reflexes intact 08/11/2012 None Full Exam - General 1994 Neurologic cranial nerves Overall: crainial nerves 2 - 12 grossly intact 08/11/2012 None Full Exam - General 1994 Psychiatric orientation/consciousness Overall: oriented to person, place and time 08/11/2012 None Full Exam - General 1994 Psychiatric orientation/consciousness Overall: oriented to person, place and time 07/10/2012 None Full Exam - General 1994 Neurologic deep tendon reflexes Overall: deep tendon reflexes intact 07/10/2012 None Full Exam - General 1994 Neurologic cranial nerves Overall: crainial nerves 2 - 12 grossly intact 07/10/2012 None Full Exam - General 1994 Musculoskeletal gait and station Gait: asymmetric 07/10/2012 None Full Exam - General 1994 Abdomen abdominal exam Overall: no tenderness 07/10/2012 None Full Exam - General 1994 Abdomen abdominal exam Overall: normal bowel sounds 07/10/2012 None Full Exam - General 1994 Cardiovascular extremities Overall: no clubbing 07/10/2012 None Full Exam - General 1994 Cardiovascular auscultation of heart Overall: regular rate 07/10/2012 None Full Exam - General 1994 Cardiovascular auscultation of heart Overall: normal heart sounds 07/10/2012 None Full Exam - General 1994 Cardiovascular auscultation of heart Overall: no murmurs 07/10/2012 None Full Exam - General 1994 Respiratory auscultation Overall: breath sounds clear bilaterally 07/10/2012 None Full Exam - General 1994 Respiratory respiratory effort/rhythm Overall: normal rate 07/10/2012 None Full Exam - General 1994 Respiratory respiratory effort/rhythm Overall: no retractions 07/10/2012 None Full Exam - General 1994 Ears/Nose/Throat otoscopic exam Overall: tympanic membranes clear 07/10/2012 None Full Exam - General 1994 Ears/Nose/Throat otoscopic exam Overall: external auditory canals clear 07/10/2012 None Full Exam - General 1994 Ears/Nose/Throat oral cavity/pharynx/larynx Overall: oropharyngeal mucosa clear 07/10/2012 None Full Exam - General 1995 Ears/Nose/Throat oral cavity/pharynx/larynx Overall: no masses 07/10/2012 None Full Exam - General 1995 Ears/Nose/Throat oral cavity/pharynx/larynx Overall: oral mucosa clear 07/10/2012 None Full Exam - General 1994 Eyes conjunctiva /eyelids Overall: conjunctiva clear 07/10/2012 None Full Exam - General 1994 Eyes conjunctiva /eyelids Overall: eyelids normal 07/10/2012 None Full Exam - General 1994 Eyes conjunctiva /eyelids Overall: cornea clear 07/10/2012 None Full Exam - General 1994 Eyes pupils and irises Overall: pupils equal, round, reactive to light and accomodation 07/10/2012 maxillary sinus tenderness especially on the left Full Exam - General 1994 Constitutional general appearance Overall: well nourished 07/10/2012 None Full Exam - General 1994 Constitutional general appearance Overall: well developed 07/10/2012 None Full Exam - General 1994 Constitutional general appearance Overall: in no acute distress 07/10/2012 None Procedures Procedure Codes Date IMMUNIZATION ADMIN CPT -4: 14973 06/05/2018 FLU VAC NO PRSV 4 ZONIA 3 YRS+ CPT-4: 35741 06/05/2018 IMMUNIZATION ADMIN CPT -4: 30625 06/19/2017 FLU VAC NO PRSV 4 ZONIA 3 YRS+ CPT-4: 08520 06/19/2017 URINALYSIS NONAUTO W/O SCOPE CPT-4: 02991 09/08/2015 IMMUNIZATION ADMIN CPT -4: 68818 03/30/2015 ADACEL TDAP VACCINE 7 YRS/> IM CPT-4: 72262 03/30/2015 URINALYSIS NONAUTO W/O SCOPE CPT-4: 72591 03/22/2015 THER/PROPH/DIAG INJ SC/IM CPT-4: 38668 11/11/2014 ROCEPHIN, PER 250 MG CPT-4: J0696 11/11/2014 ROUTINE VENIPUNCTURE CPT-4: 73514 10/15/2014 HgbA1c CPT-4: 76626 10/15/2014 CBC (COMPLETE CBC W/AUTO DIFF WBC) CPT-4: 98897 10/15/2014 CHEM 14 (COMPREHEN METABOLIC PANEL) CPT-4: 37011 10/15/2014 TSH (ASSAY THYROID STIM HORMONE) CPT-4: 98428 10/15/2014 VIT D TOTL (VITAMIN D 25 HYDROXY) CPT-4: 28300 10/15/2014 FREE T4 (ASSAY OF FREE THYROXINE) CPT-4: 63063 10/15/2014 ROUTINE VENIPUNCTURE CPT-4: 21890 06/23/2014 CHEM 14 (COMPREHEN METABOLIC PANEL) CPT-4: 09595 06/23/2014 TSH (ASSAY THYROID STIM HORMONE) CPT-4: 34812 06/23/2014 FREE T4 (ASSAY OF FREE THYROXINE) CPT-4: 18824 06/23/2014 URINALYSIS NONAUTO W/O SCOPE CPT-4: 84708 12/15/2013 ROUTINE VENIPUNCTURE CPT-4: 70171 12/15/2013 THER/PROPH/DIAG INJ SC/IM CPT-4: 13742 11/03/2012 VITAMIN B12 INJECTION CPT-4: J3420 11/03/2012 THER/PROPH/DIAG INJ SC/IM CPT-4: 29369 10/20/2012 VITAMIN B12 INJECTION CPT-4: J3420 10/20/2012 VITAMIN B12 INJECTION CPT-4: J3420 09/11/2012 THER/PROPH/DIAG INJ SC/IM CPT-4: 88729 09/11/2012 THER/PROPH/DIAG INJ SC/IM CPT-4: 09690 08/11/2012 VITAMIN B12 INJECTION CPT-4: J3420 08/11/2012 THER/PROPH/DIAG INJ SC/IM CPT-4: 26790 07/21/2012 VITAMIN B12 INJECTION CPT-4: J3420 07/21/2012 Vital Signs Date Vital 12/11/2018 Blood Pressure 1: 110/76 Code : 8480-6 BMI: 32.8 Code : 32873-1 Heart Rate 1 : 69 bpm Height: 5'6" SpO2: 99% Temperature: 37.1 (C) / 98.7 (F) Weight: 203 lbs 11/18/2018 Blood Pressure 1: 136/82 Code : 8480-6 BMI: 33.1 Code : 09560-6 Heart Rate 1 : 75 bpm Height: 5'6" SpO2: 98% Temperature: 36.4 (C) / 97.5 (F) Weight: 205 lbs 10/02/2018 Blood Pressure 1: 128/78 Code : 8480-6 BMI: 32.0 Code : 86990-0 Heart Rate 1 : 73 bpm Height: 5'6" SpO2: 98% Weight: 198 lbs 08/06/2018 Blood Pressure 1: 116/78 Code : 8480-6 BMI: 32.3 Code : 68409-5 Heart Rate 1 : 71 bpm Height: 5'6" SpO2: 98% Weight: 200 lbs 07/08/2018 Blood Pressure 1: 128/70 Code : 8480-6 BMI: 32.4 Code : 40839-2 Heart Rate 1 : 76 bpm Height: 5'6" SpO2: 96% Weight: 201 lbs 02/11/2018 Blood Pressure 1: 122/84 Code : 8480-6 BMI: 32.4 Code : 21018-7 Heart Rate 1 : 71 bpm Height: 5'6" SpO2: 97% Weight: 201 lbs 11/12/2017 Blood Pressure 1: 130/82 Code : 8480-6 BMI: 32.3 Code : 26735-1 Height: 5'6" Weight: 200 lbs 08/20/2017 Blood Pressure 1: 126/78 Code : 8480-6 BMI: 32.3 Code : 54432-3 Heart Rate 1 : 66 bpm Height: 5'6" SpO2: 98% Weight: 200 lbs 06/24/2017 Blood Pressure 1: 134/78 Code : 8480-6 BMI: 34.2 Code : 06570-3 Heart Rate 1 : 71 bpm Height: 5'6" SpO2: 95% Weight: 212 lbs 05/22/2017 Blood Pressure 1: 122/78 Code : 8480-6 BMI: 33.9 Code : 93976-0 Heart Rate 1 : 76 bpm Height: 5'6" SpO2: 97% Weight: 210 lbs 05/10/2017 Blood Pressure 1: 130/84 Code : 8480-6 BMI: 34.1 Code : 66219-7 Heart Rate 1 : 90 bpm Height: 5'6" SpO2: 98% Temperature: 36.9 (C) / 98.5 (F) Weight: 211 lbs 04/08/2017 Blood Pressure 1: 132/78 Code : 8480-6 BMI: 34.4 Code : 98402-1 Heart Rate 1 : 72 bpm Height: 5'6" SpO2: 97% Weight: 213 lbs 02/20/2017 Blood Pressure 1: 130/90 Code : 8480-6 BMI: 33.9 Code : 15331-3 Heart Rate 1 : 74 bpm Height: 5'6" SpO2: 98% Weight: 210 lbs 11/21/2016 Blood Pressure 1: 132/74 Code : 8480-6 BMI: 34.2 Code : 09211-7 Heart Rate 1 : 66 bpm Height: 5'6" SpO2: 97% Weight: 212 lbs 08/29/2016 Blood Pressure 1: 136/82 Code : 8480-6 BMI: 33.7 Code : 64530-1 Heart Rate 1 : 70 bpm Height: 5'6" Respiratory Rate: 18 bpm SpO2: 98% Weight: 209 lbs 07/05/2016 Blood Pressure 1: 142/76 Code : 8480-6 BMI: 33.2 Code : 90818-7 Heart Rate 1 : 73 bpm Height: 5'6" SpO2: 98% Weight: 206 lbs 06/11/2016 Blood Pressure 1: 130/82 Code : 8480-6 BMI: 33.4 Code : 41026-7 Heart Rate 1 : 76 bpm Height: 5'6" SpO2: 97% Weight: 207 lbs 06/04/2016 Blood Pressure 1: 134/80 Code : 8480-6 BMI: 33.4 Code : 95498-9 Heart Rate 1 : 71 bpm Height: 5'6" SpO2: 98% Weight: 207 lbs 04/10/2016 Blood Pressure 1: 124/80 Code : 8480-6 BMI: 34.4 Code : 17603-6 Heart Rate 1 : 76 bpm Height: 5'6" SpO2: 96% Weight: 213 lbs 03/26/2016 Blood Pressure 1: 118/74 Code : 8480-6 BMI: 34.4 Code : 06904-8 Heart Rate 1 : 72 bpm Height: 5'6" SpO2: 98% Weight: 213 lbs 01/23/2016 Blood Pressure 1: 134/76 Code : 8480-6 BMI: 33.7 Code : 41503-8 Heart Rate 1 : 76 bpm Height: 5'6" SpO2: 97% Weight: 209 lbs 12/26/2015 Blood Pressure 1: 116/76 Code : 8480-6 BMI: 33.4 Code : 61800-9 Heart Rate 1 : 78 bpm Height: 5'6" SpO2: 98% Weight: 207 lbs 11/02/2015 Blood Pressure 1: 118/80 Code : 8480-6 BMI: 33.6 Code : 73842-4 Heart Rate 1 : 75 bpm Height: 5'6" SpO2: 95% Weight: 208 lbs 09/13/2015 Blood Pressure 1: 140/82 Code : 8480-6 BMI: 33.6 Code : 43998-9 Heart Rate 1 : 92 bpm Height: 5'6" SpO2: 96% Weight: 208 lbs 09/07/2015 Blood Pressure 1: 140/82 Code : 8480-6 BMI: 33.4 Code : 18029-5 Heart Rate 1 : 85 bpm Height: 5'6" SpO2: 95% Weight: 207 lbs 08/16/2015 Blood Pressure 1: 138/84 Code : 8480-6 BMI: 32.9 Code : 96011-2 Heart Rate 1 : 87 bpm Height: 5'6" SpO2: 97% Weight: 204 lbs 06/13/2015 Blood Pressure 1: 130/82 Code : 8480-6 BMI: 33.1 Code : 16786-8 Heart Rate 1 : 84 bpm Height: 5'6" SpO2: 96% Weight: 205 lbs 05/10/2015 Blood Pressure 1: 118/70 Code : 8480-6 BMI: 32.9 Code : 63536-5 Heart Rate 1 : 77 bpm Height: 5'6" SpO2: 97% Weight: 204 lbs 03/22/2015 Blood Pressure 1: 118/76 Code : 8480-6 BMI: 32.0 Code : 79503-9 Heart Rate 1 : 88 bpm Height: 5'6" Temperature: 36.2 (C) / 97.2 (F) Weight: 198 lbs 01/17/2015 Blood Pressure 1: 120/80 Code : 8480-6 BMI: 32.6 Code : 13830-3 Heart Rate 1 : 88 bpm Height: 5'6" Weight: 202 lbs 11/22/2014 Blood Pressure 1: 118/82 Code : 8480-6 BMI: 31.8 Code : 51488-0 Heart Rate 1 : 72 bpm Height: 5'6" Weight: 197 lbs 10/27/2014 Blood Pressure 1: 130/82 Code : 8480-6 BMI: 32.0 Code : 27952-9 Heart Rate 1 : 86 bpm Height: 5'6" SpO2: 97% Weight: 198 lbs 10/15/2014 Blood Pressure 1: 11882 Code : 8480-6 BMI: 32.1 Code : 77646-6 Heart Rate 1 : 100 bpm Height: 5'6" Weight: 199 lbs 09/30/2014 Blood Pressure 1: 118/86 Code : 8480-6 BMI: 32.0 Code : 50138-5 Heart Rate 1 : 80 bpm Height: 5'6" Temperature: 35.7 (C) / 96.3 (F) Weight: 198 lbs 07/14/2014 Blood Pressure 1: 116/80 Code : 8480-6 BMI: 32.9 Code : 08665-0 Heart Rate 1 : 80 bpm Height: 5'6" Weight: 204 lbs 06/23/2014 Blood Pressure 1: 128/88 Code : 8480-6 BMI: 33.7 Code : 87301-5 Height: 5'6" Weight: 209 lbs 04/09/2014 Blood Pressure 1: 138/82 Code : 8480-6 Heart Rate 1: 90 bpm SpO2: 97% Temperature: 35.8 (C) / 96.5 (F) Weight: 210 lbs 03/16/2014 Blood Pressure 1: 116/80 Code : 8480-6 BMI: 34.1 Code : 75622-0 Heart Rate 1 : 88 bpm Height: 5'6" Weight: 211 lbs 01/12/2014 Blood Pressure 1: 124/70 Code : 8480-6 BMI: 33.4 Code : 19421-1 Heart Rate 1 : 76 bpm Height: 5'6" Weight: 207 lbs 12/15/2013 Blood Pressure 1: 144/100 Code: 8480-6 Blood Pressure 2: 124/90 Code: 8480-6 Heart Rate 1: 72 bpm Weight: 215 lbs 10/20/2013 Blood Pressure 1: 130/84 Code : 8480-6 BMI: 34.5 Code : 23178-8 Heart Rate 1 : 84 bpm Height: 5'6" Weight: 214 lbs 09/15/2013 Blood Pressure 1: 128/90 Code : 8480-6 BMI: 34.9 Code : 23612-0 Heart Rate 1 : 88 bpm Height: 5'6" Temperature: 36.5 (C) / 97.7 (F) Weight: 216 lbs 07/27/2013 Blood Pressure 1: 138/90 Code : 8480-6 BMI: 34.4 Code : 07611-1 Heart Rate 1 : 88 bpm Height: 5'6" Weight: 213 lbs 06/09/2013 Blood Pressure 1: 138/92 Code : 8480-6 Heart Rate 1: 88 bpm Weight: 04/20/2013 Blood Pressure 1: 142/92 Code : 8480-6 BMI: 34.4 Code : 31276-2 Heart Rate 1 : 88 bpm Height: 5'6" Weight: 213 lbs 03/23/2013 Blood Pressure 1: 116/84 Code : 8480-6 BMI: 34.1 Code : 87756-4 Heart Rate 1 : 76 bpm Height: 5'6" Weight: 211 lbs 01/21/2013 Blood Pressure 1: 130/88 Code : 8480-6 BMI: 34.5 Code : 34369-6 Heart Rate 1 : 80 bpm Height: 5'6" Weight: 214 lbs 12/25/2012 Blood Pressure 1: 112/70 Code : 8480-6 Heart Rate 1: 84 bpm Respiratory Rate : 20 bpm Weight: 214 lbs 8 oz 10/20/2012 Blood Pressure 1: 124/80 Code : 8480-6 BMI: 34.4 Code : 84937-8 Heart Rate 1 : 84 bpm Height: 5'6" Temperature: 36.7 (C) / 98.0 (F) Weight: 213 lbs 08/11/2012 Blood Pressure 1: 116/80 Code : 8480-6 BMI: 33.9 Code : 15518-0 Heart Rate 1 : 76 bpm Height: 5'6" Respiratory Rate: 20 bpm Weight: 210 lbs 07/10/2012 Blood Pressure 1: 110/76 Code : 8480-6 BMI: 46.5 Code : 87416-1 Heart Rate 1 : 84 bpm Height: 4'8" Respiratory Rate: 20 bpm Weight: 207 lbs 8 oz Functional Status No Functional Status data History of Present Illness Symptom Name Status Result Effective Date Notes Quality constant 12/2018 None Quality loose 2018 None Quality mucous 2018 None Onset and Resolution ongoing 12/11/2018 None Onset of Symptom 2 months ago 12/11/2018 None Onset of Symptom _ months ago 12/11/2018 None Frequency of Episodes daily 12/11/2018 None Length of Episodes _ months 12/11/2018 None Triggers no known associated factors 12/11/2018 None Pertinent Findings Denies fever 12/11/2018 None Limitation on Activities moderately limits activities 12/11/2018 None Frequency of Episodes >8 stools per day 12/11/2018 None Quality acute 2018 None Pertinent Findings nausea 11/18/2018 None Pertinent Findings bloating 11/18/2018 None Pertinent Findings abdominal distension 11/18/2018 None Quality constant 08/2019 None Onset and Resolution sudden in onset 11/18/2018 None Quality watery 2018 None Onset and Resolution ongoing 11/18/2018 None Onset of Symptom Denies 3.5 weeks ago 11/18/2018 None Frequency of Episodes daily 11/18/2018 None Frequency of Episodes >8 stools per day 11/18/2018 None Triggers no known associated factors 11/18/2018 None Limitation on Activities does not limit activities 11/18/2018 None Timing of Episodes no specific time 11/18/2018 None Quality intermittent 10/02/2018 None Onset and Resolution ongoing 10/02/2018 None Onset of Symptom 10 years ago 10/02/2018 None Onset and Resolution ongoing 10/02/2018 None Onset of Symptom years ago 10/02/2018 None Quality chronic 10/02 None Quality primary hypertension 10/02/2018 None Onset and Resolution ongoing 10/02/2018 None Onset of Symptom during adulthood 10/02/2018 None Alleviating Factors medication 10/02/2018 None Frequency of Episodes decreasing 10/02/2018 None Triggers no known associated factors 10/02/2018 None Quality chronic 10/02 None Quality chronic 10/02 None Alleviating Factors medication 10/02/2018 (pristiq) Frequency of Episodes decreasing 10/02/2018 None Blood Pressure Values patient checking blood pressure at home - did not bring in readings 2018 None Pertinent Findings decreased energy 10/02/2018 -improved Pertinent Findings dizziness 10/02/2018 None Pertinent Findings dyspnea 10/02/2018 None Pertinent Findings edema 10/02/2018 only if she has been on her feet for a long time constipation Quality intermittent diarrhea 08/06/2018 None constipation Onset and Resolution ongoing 08/06/2018 None fatigue Onset and Resolution ongoing 08/06/2018 None fatigue Limitation on Activities moderately limits activities 08/06/2018 None fatigue Frequency of Episodes decreasing 08/06/2018 None fatigue Triggers no known associated factors 08/06/2018 None fatigue Quality chronic 08/06/2018 None constipation Quality worsening 08/06/2018 None depression Quality intermittent 07/08/2018 None depression Onset and Resolution ongoing 07/08/2018 None depression Onset of Symptom 10 years ago 07/08/2018 None depression Frequency of Episodes daily 07/08/2018 None depression Pertinent Findings depressed mood 07/08/2018 None fatigue Onset and Resolution ongoing 07/08/2018 None fatigue Onset of Symptom _ years ago 07/08/2018 None fatigue Pertinent Findings depressed mood 07/08/2018 None hypertension Quality primary hypertension 02/11/2018 None hypertension Onset and Resolution ongoing 02/11/2018 None hypertension Onset of Symptom during adulthood 02/11/2018 None hypertension Alleviating Factors medication 02/11/2018 None hypertension Pertinent Findings decreased energy 02/11/2018 None hypertension Pertinent Findings dizziness 02/11/2018 -intermittent hypertension Pertinent Findings dyspnea 02/11/2018 -intermittent fatigue Onset and Resolution ongoing 02/11/2018 None fatigue Limitation on Activities moderately limits activities 02/11/2018 None fatigue Triggers no known associated factors 02/11/2018 None hypertension Blood Pressure Values patient checking blood pressure at home - did not bring in readings 02/11/2018 -Checks occasionally- around 134/98 ( highest), 120/78 (lowest) fatigue Frequency of Episodes unchanged 02/11/2018 None hypertension Quality primary hypertension 11/12/2017 None hypertension Onset and Resolution ongoing 11/12/2017 None hypertension Onset of Symptom during adulthood 11/12/2017 None hypertension Blood Pressure Values not checking blood pressure at home 11/12/2017 None hypertension Alleviating Factors medication 11/12/2017 None hypertension Pertinent Findings decreased energy 11/12/2017 None hypertension Pertinent Findings dizziness 11/12/2017 "all the time" hypertension Pertinent Findings dyspnea 11/12/2017 "all the time" hypertension Pertinent Findings edema 11/12/2017 "not lately" fatigue Onset and Resolution ongoing 11/12/2017 None fatigue Limitation on Activities moderately limits activities 11/12/2017 None fatigue Triggers no known associated factors 11/12/2017 None hypertension Quality primary hypertension 08/20/2017 None hypertension Onset and Resolution ongoing 08/20/2017 None hypertension Onset of Symptom during adulthood 08/20/2017 None hypertension Blood Pressure Values not checking blood pressure at home 08/20/2017 None hypertension Alleviating Factors medication 08/20/2017 None hypertension Pertinent Findings decreased energy 08/20/2017 None hypertension Pertinent Findings dizziness 08/20/2017 "all the time" hypertension Pertinent Findings dyspnea 08/20/2017 "all the time" hypertension Pertinent Findings edema 08/20/2017 "not lately" fatigue Onset and Resolution ongoing 08/20/2017 None fatigue Limitation on Activities moderately limits activities 08/20/2017 None fatigue Triggers no known associated factors 08/20/2017 None pre-op/surgery consult Referred by Dr. Weaver 06/24/2017 None pre-op/surgery consult Procedure to be performed tummy tuck et breast lift 06/24/2017 None pre-op/surgery consult Pertinent Findings Denies pain 06/24/2017 None sinus congestion Quality acute 06/24/2017 None sinus congestion Quality pressure 06/24/2017 None sinus congestion Location on both sides 06/24/2017 None pre-op/surgery consult Pre-operative instructions nothing to eat or drink after midnight the night before 06/24/2017 None pre-op/surgery consult Post-operative instructions pain management instructions 06/24/2017 None pre-op/surgery consult Post-operative instructions physical activity restrictions 06/24/2017 None pre-op/surgery consult Significant Medical Conditions diabetes 06/24/2017 None pre-op/surgery consult Significant Medical Conditions hypertension 06/24/2017 None vaccination against influenza Location deltoid-Lt 06/19/2017 None hypertension Quality primary hypertension 05/22/2017 None hypertension Onset and Resolution ongoing 05/22/2017 None hypertension Onset of Symptom during adulthood 05/22/2017 None hypertension Alleviating Factors medication 05/22/2017 None hypertension Pertinent Findings decreased energy 05/22/2017 None hypertension Pertinent Findings dizziness 05/22/2017 "all the time" hypertension Pertinent Findings dyspnea 05/22/2017 "all the time" hypertension Pertinent Findings edema 05/22/2017 "not lately" hypertension Blood Pressure Values not checking blood pressure at home 05/22/2017 None fatigue Onset and Resolution ongoing 05/22/2017 None fatigue Limitation on Activities moderately limits activities 05/22/2017 None fatigue Triggers no known associated factors 05/22/2017 None cough Quality acute None cough Quality dry None cough Quality intermittent 05/22/2017 None cough Pertinent Findings Denies sputum production 05/22/2017 None sinus congestion Quality pressure 05/22/2017 None sinus congestion Quality acute 05/22/2017 None sinus congestion Location on both sides 05/22/2017 None sinus congestion Onset and Resolution sudden in onset 05/10/2017 None sinus congestion Onset of Symptom 1 weeks ago 05/10/2017 None sinus congestion Timing of Episodes all day long 05/10/2017 None sinus congestion Pertinent Findings cough 05/10/2017 None sinus congestion Pertinent Findings fever 05/10/2017 None sinus congestion Pertinent Findings hoarseness 05/10/2017 None sinus congestion Location on both sides 05/10/2017 None sinus congestion Quality fullness 05/10/2017 None sinus congestion Quality pressure 05/10/2017 None sinus congestion Quality constant 05/10/2017 None sinus congestion Severity moderate 05/10/2017 None sinus congestion Frequency of Episodes increasing 05/10/2017 None sinus congestion Significant Medical Conditions allergic rhinitis 05/10/2017 None sinus congestion Triggers no known associated factors 05/10/2017 None sinus congestion Alleviating Factors medication 05/10/2017 None fatigue Onset and Resolution ongoing 04/08/2017 None fatigue Onset of Symptom _ months ago 04/08/2017 None fatigue Frequency of Episodes daily 04/08/2017 None fatigue Pertinent Findings dizziness 04/08/2017 None hypertension Quality primary hypertension 02/20/2017 None hypertension Onset and Resolution ongoing 02/20/2017 None hypertension Onset of Symptom during adulthood 02/20/2017 None hypertension Blood Pressure Values patient checking blood pressure at home - did not bring in readings 02/20/2017 -Checks occasionally hypertension Alleviating Factors medication 02/20/2017 None hypertension Pertinent Findings decreased energy 02/20/2017 None hypertension Pertinent Findings dizziness 02/20/2017 "all the time" hypertension Pertinent Findings dyspnea 02/20/2017 "all the time" hypertension Pertinent Findings edema 02/20/2017 "all the time" abdominal pain Location in the RUQ 11/21/2016 None abdominal pain Quality acute 11/21/2016 None abdominal pain Quality intermittent 11/21/2016 None abdominal pain Quality sharp 11/21/2016 None abdominal pain Quality worsening 11/21/2016 None abdominal pain Onset and Resolution ongoing 11/21/2016 None abdominal pain Onset of Symptom 1-2 weeks ago 11/21/2016 None abdominal pain Triggers position change 11/21/2016 (sitting) abdominal pain Alleviating Factors position change 11/21/2016 (standing or lying) diabetes mellitus Quality non-insulin dependent 11/21/2016 None diabetes mellitus Pertinent Findings dizziness 11/21/2016 None diabetes mellitus Pertinent Findings dyspnea 11/21/2016 None diabetes mellitus Pertinent Findings nausea 11/21/2016 None diabetes mellitus Test results Pt checking blood glucose at home, see scanned readings 2016 None diabetes mellitus Blood glucose levels between 60 and 120 11/21/2016 None diabetes mellitus Glucose monitoring daily 11/21/2016 None diabetes mellitus Glucose monitoring twice daily 11/21/2016 None hypertension Onset and Resolution ongoing 11/21/2016 None hypertension Onset of Symptom during adulthood 11/21/2016 None hypertension Blood Pressure Values not checking blood pressure at home 11/21/2016 None hypertension Alleviating Factors medication 11/21/2016 None hypertension Pertinent Findings Denies dizziness 11/21/2016 None hypertension Pertinent Findings Denies dyspnea 11/21/2016 None hypertension Pertinent Findings edema 11/21/2016 None knee pain Location on the right 11/21/2016 None knee pain Location in the posterior region 11/21/2016 None knee pain Location in the lateral region 11/21/2016 None knee pain Quality sharp pain 11/21/2016 None knee pain Quality tenderness 11/21/2016 None headache Location diffusely 11/21/2016 None headache Quality intermittent 11/21/2016 None headache Onset and Resolution sudden in onset 11/21/2016 None headache Onset of Symptom 2 weeks ago 11/21/2016 None headache Pertinent Findings blurred vision 11/21/2016 None headache Pertinent Findings dizziness 11/21/2016 None chest pain/pressure Location on the left side of on the chest 11/21/2016 None chest pain/pressure Pertinent Findings dyspnea 11/21/2016 None abdominal pain Location in the RUQ 08/29/2016 None abdominal pain Quality acute 08/29/2016 None abdominal pain Quality intermittent 08/29/2016 None abdominal pain Quality sharp 08/29/2016 None abdominal pain Quality worsening 08/29/2016 None abdominal pain Onset and Resolution ongoing 08/29/2016 None abdominal pain Onset of Symptom 1-2 weeks ago 08/29/2016 None abdominal pain Triggers position change 08/29/2016 (sitting) abdominal pain Alleviating Factors position change 08/29/2016 (standing or lying) hypertension Onset and Resolution ongoing 08/29/2016 None hypertension Onset of Symptom during adulthood 08/29/2016 None hypertension Blood Pressure Values not checking blood pressure at home 08/29/2016 None hypertension Alleviating Factors medication 08/29/2016 None hypertension Pertinent Findings Denies dizziness 08/29/2016 None hypertension Pertinent Findings Denies dyspnea 08/29/2016 None hypertension Pertinent Findings edema 08/29/2016 None abdominal pain Location in the RUQ 07/05/2016 None abdominal pain Location in the RLQ 07/05/2016 None abdominal pain Quality acute 07/05/2016 None abdominal pain Quality intermittent 07/05/2016 None abdominal pain Quality sharp 07/05/2016 None abdominal pain Onset and Resolution ongoing 07/05/2016 None abdominal pain Quality worsening 07/05/2016 None abdominal pain Onset of Symptom 1-2 weeks ago 07/05/2016 None abdominal pain Triggers position change 07/05/2016 (sitting) abdominal pain Alleviating Factors position change 07/05/2016 (standing or lying) hypertension Onset and Resolution ongoing 06/11/2016 None hypertension Onset of Symptom during adulthood 06/11/2016 None hypertension Blood Pressure Values not checking blood pressure at home 06/11/2016 None hypertension Alleviating Factors medication 06/11/2016 None hypertension Pertinent Findings Denies dizziness 06/11/2016 None hypertension Pertinent Findings Denies dyspnea 06/11/2016 None hypertension Pertinent Findings edema 06/11/2016 None diarrhea Quality acute 06/11/2016 None diarrhea Onset and Resolution sudden in onset 06/11/2016 None diarrhea Pertinent Findings Denies chills 06/11/2016 None diarrhea Pertinent Findings Denies fever 06/11/2016 None diarrhea Quality intermittent 06/11/2016 None diarrhea Onset of Symptom 3 weeks ago 06/11/2016 None diarrhea Quality acute 06/04/2016 None diarrhea Onset and Resolution sudden in onset 06/04/2016 None diarrhea Onset of Symptom 2 weeks ago 06/04/2016 None diarrhea Pertinent Findings Denies fever 06/04/2016 None diarrhea Pertinent Findings Denies chills 06/04/2016 None ingrown toenail Quality intermittent 04/10/2016 None ingrown toenail Quality worsening 04/10/2016 None ingrown toenail Onset of Symptom 1 weeks ago 04/10/2016 None ingrown toenail Limitation on Activities does not limit activities 04/10/2016 None ingrown toenail Pertinent Findings swelling 04/10/2016 None ingrown toenail Pertinent Findings pain with movement 04/10/2016 None dizziness Quality imbalance 03/26/2016 None dizziness Quality lightheadedness 03/26/2016 None dizziness Quality constant 03/26/2016 None dizziness Quality acute 03/26/2016 None dizziness Onset and Resolution ongoing 03/26/2016 None dizziness Onset of Symptom months ago 03/26/2016 None dizziness Pertinent Findings blurred vision 03/26/2016 None dizziness Pertinent Findings imbalance 03/26/2016 None abnormal test results Test Performed 1 weeks ago 01/23/2016 None dizziness Quality lightheadedness 01/23/2016 None dizziness Quality imbalance 01/23/2016 None dizziness Quality constant 01/23/2016 None dizziness Quality acute 01/23/2016 None dizziness Onset and Resolution ongoing 01/23/2016 None dizziness Onset of Symptom months ago 01/23/2016 None dizziness Pertinent Findings imbalance 01/23/2016 None dizziness Pertinent Findings blurred vision 01/23/2016 None sores Location-Head/Neck on the right preauricular area 01/23/2016 None sores Quality recurrent 01/23/2016 None sores Onset and Resolution ongoing 01/23/2016 None sores Onset of Symptom 2 months ago 01/23/2016 None diarrhea Quality intermittent 12/26/2015 None diarrhea Quality watery 12/26/2015 None diarrhea Onset and Resolution sudden in onset 12/26/2015 None diarrhea Onset of Symptom 3.5 weeks ago 12/26/2015 None diarrhea Quality acute 12/26/2015 None diarrhea Pertinent Findings fever 12/26/2015 None diarrhea Pertinent Findings nausea 12/26/2015 None nausea Onset and Resolution ongoing 12/26/2015 None nausea Onset of Symptom 6 months ago 12/26/2015 None diabetes mellitus Quality non-insulin dependent 12/26/2015 None diabetes mellitus Glucose monitoring occasional glucose testing 12/26/2015 None diabetes mellitus Test results Pt checking blood glucose at home, see scanned readings 2015 None diabetes mellitus Pertinent Findings dizziness 12/26/2015 None diabetes mellitus Pertinent Findings dyspnea 12/26/2015 None diabetes mellitus Pertinent Findings nausea 12/26/2015 None hypertension Onset and Resolution ongoing 12/26/2015 None hypertension Onset of Symptom during adulthood 12/26/2015 None hypertension Blood Pressure Values patient checking blood pressure at home - did not bring in readings 12/26/2015 None hypertension Alleviating Factors medication 12/26/2015 None cough Location in the throat 11/02/2015 None cough Quality dry None cough Quality hacking 11/02/2015 None cough Onset and Resolution ongoing 11/02/2015 None cough Onset of Symptom 1 weeks ago 11/02/2015 None cough Frequency of Episodes daily 11/02/2015 None cough Pertinent Findings chest discomfort 11/02/2015 None cough Pertinent Findings fever 11/02/2015 None cough Pertinent Findings nasal congestion 11/02/2015 None sinus congestion Quality fullness 11/02/2015 None sinus congestion Quality pressure 11/02/2015 None sinus congestion Onset and Resolution sudden in onset 11/02/2015 None sinus congestion Onset of Symptom 1 weeks ago 11/02/2015 None sinus congestion Frequency of Episodes daily 11/02/2015 None sinus congestion Pertinent Findings cough 11/02/2015 None sinus congestion Pertinent Findings fever 11/02/2015 None earache Location both ears 11/02/2015 None earache Onset and Resolution sudden in onset 11/02/2015 None earache Onset of Symptom 1 weeks ago 11/02/2015 None earache Frequency of Episodes daily 11/02/2015 None lower leg pain Location on the left 09/13/2015 None lower leg pain Quality dull pain 09/13/2015 "rin horse" lower leg pain Onset and Resolution sudden in onset 09/13/2015 None lower leg pain Onset of Symptom 2 weeks ago 09/13/2015 None lower leg pain Frequency of Episodes daily 09/13/2015 None lower leg pain Severity moderate 09/13/2015 None lower leg pain Significant Medical Conditions obesity 09/13/2015 None lower leg pain Significant Medical Conditions prior injury 09/13/2015 None lower leg pain Pertinent Findings limping 09/13/2015 None lower leg pain Pertinent Findings pain with movement 09/13/2015 to stand on it lower leg pain Pertinent Findings warmth 09/13/2015 None cough Location in the throat 09/13/2015 None cough Quality dry 01/2016 None cough Quality hacking 09/13/2015 None cough Onset and Resolution ongoing 09/13/2015 None cough Onset of Symptom 1 weeks ago 09/13/2015 None cough Frequency of Episodes daily 09/13/2015 None cough Pertinent Findings chest discomfort 09/13/2015 None cough Pertinent Findings fever 09/13/2015 None cough Pertinent Findings nasal congestion 09/13/2015 None sinus congestion Quality fullness 09/13/2015 None sinus congestion Quality pressure 09/13/2015 None sinus congestion Onset and Resolution sudden in onset 09/13/2015 None sinus congestion Onset of Symptom 1 weeks ago 09/13/2015 None sinus congestion Frequency of Episodes daily 09/13/2015 None sinus congestion Pertinent Findings cough 09/13/2015 None sinus congestion Pertinent Findings fever 09/13/2015 None earache Location both ears 09/13/2015 None earache Onset and Resolution sudden in onset 09/13/2015 None earache Onset of Symptom 1 weeks ago 09/13/2015 None earache Frequency of Episodes daily 09/13/2015 None lower leg pain Location on the left 09/07/2015 None lower leg pain Quality dull pain 09/07/2015 "rin horse" lower leg pain Onset and Resolution sudden in onset 09/07/2015 None lower leg pain Onset of Symptom 2 weeks ago 09/07/2015 None lower leg pain Frequency of Episodes daily 09/07/2015 None lower leg pain Pertinent Findings limping 09/07/2015 None lower leg pain Pertinent Findings pain with movement 09/07/2015 to stand on it lower leg pain Severity moderate 09/07/2015 None lower leg pain Significant Medical Conditions obesity 09/07/2015 None lower leg pain Significant Medical Conditions prior injury 09/07/2015 None lower leg pain Mechanism of injury low energy 09/07/2015 None lower leg pain Pertinent Findings warmth 09/07/2015 None bone pain Location in the ribs on in the left 08/16/2015 None bone pain Quality stabbing 08/16/2015 None bone pain Quality tender 08/16/2015 None bone pain Quality constant 08/16/2015 None bone pain Onset and Resolution sudden in onset 08/16/2015 None bone pain Onset of Symptom 1 months ago 08/16/2015 None bone pain Frequency of Episodes daily 08/16/2015 None bone pain Mechanism of injury moderate energy 08/16/2015 None bone pain Pertinent Findings stiffness 08/16/2015 None knee pain Location on the right 08/16/2015 - she had meniscal surgery with Dr. Canales and has healed up a lot since surgery but she has a lot of discomfort on the medial aspect of her knee - knee pain Quality dull pain 08/16/2015 None knee pain Quality tenderness 08/16/2015 None knee pain Onset and Resolution sudden in onset 08/16/2015 None knee pain Onset of Symptom 1 months ago 08/16/2015 None knee pain Frequency of Episodes daily 08/16/2015 None knee pain Mechanism of injury fall onto knee 08/16/2015 None knee pain Pertinent Findings bruising 08/16/2015 None knee pain Pertinent Findings pain with movement 08/16/2015 None knee pain Pertinent Findings stiffness 08/16/2015 None depression Quality chronic 06/13/2015 None depression Onset and Resolution ongoing 06/13/2015 None depression Pertinent Findings depressed mood 06/13/2015 None depression Pertinent Findings helplessness 06/13/2015 None depression Pertinent Findings irritability 06/13/2015 None diabetes mellitus Quality non-insulin dependent 06/13/2015 None diabetes mellitus Severity mild 06/13/2015 None diabetes mellitus Test results Pt checking blood glucose at home, see scanned readings 2014 None diabetes mellitus Glucose monitoring occasional glucose testing 06/13/2015 1 time daily q other day or when remembers diabetes mellitus Pertinent Findings dizziness 06/13/2015 None diabetes mellitus Pertinent Findings dyspnea 06/13/2015 None depression Onset of Symptom during adulthood 06/13/2015 None depression Frequency of Episodes increasing 06/13/2015 None depression Significant Medical Conditions anxiety disorder 06/13/2015 None depression Triggers no known associated factors 06/13/2015 None depression Pertinent Findings anxiety 06/13/2015 and OCD diabetes mellitus Blood glucose levels between 60 and 120 06/13/2015 None diabetes mellitus Alleviating Factors medication 06/13/2015 None diabetes mellitus Alleviating Factors diet 06/13/2015 None diabetes mellitus Nutrition ADA diet 06/13/2015 None diabetes mellitus Exercise no exercise 06/13/2015 None back pain Location diffusely 05/10/2015 None back pain Onset and Resolution ongoing 05/10/2015 None new lesion Location-Major on the arms 05/10/2015 None new lesion Pertinent Findings pain 05/10/2015 None back pain Quality aching 05/10/2015 None back pain Quality intermittent 05/10/2015 None urinary frequency Onset of Symptom 3 weeks ago 03/22/2015 None urinary frequency Onset and Resolution gradual in onset 03/22/2015 reports going every 45 minutes even though the night- not sleeping well due to this urinary frequency Pertinent Findings back pain 03/22/2015 None urinary frequency Pertinent Findings fever 03/22/2015 99-100 over weekend, no fever yesterday or today back pain Location in the right middle back area 03/22/2015 None back pain Location in the left middle back area 03/22/2015 worse than right back pain Pertinent Findings fever 03/22/2015 over weekend headache Location in the left occipital area 03/22/2015 None headache Location in the right occipital area 03/22/2015 None headache Location in the right retro- orbital area 03/22/2015 None headache Location in the left retro- orbital area 03/22/2015 None headache Onset and Resolution ongoing 03/22/2015 None headache Pertinent Findings Denies blurred vision 03/22/2015 sees spots with migraines headache Pertinent Findings dizziness 03/22/2015 None headache Quality chronic 03/22/2015 None headache Quality intermittent 03/22/2015 None headache Limitation on Activities moderately limits activities 03/22/2015 None headache Triggers stress 03/22/2015 None headache Alleviating Factors medication 03/22/2015 None headache Alleviating Factors darkness 03/22/2015 None back pain Onset and Resolution ongoing 03/22/2015 None back pain Onset of Symptom 2 months ago 03/22/2015 states it has continued intermittently since then back pain Radiating does not radiate 03/22/2015 None back pain Severity moderate 03/22/2015 None back pain Initial treatment medication 03/22/2015 None back pain Alleviating Factors medication 03/22/2015 None back pain Alleviating Factors rest 03/22/2015 None pain Quality acute 07/2015 None pain Onset and Resolution ongoing 01/17/2015 None pain Onset of Symptom 1 week ago 01/17/2015 None pain Limitation on Activities does not limit activities 01/17/2015 None pain Severity moderate 01/17/2015 None diabetes mellitus Onset of Symptom onset as an adult 01/17/2015 None diabetes mellitus Quality non-insulin dependent 01/17/2015 None diabetes mellitus Pertinent Findings dizziness 01/17/2015 when bending over diabetes mellitus Severity mild 01/17/2015 None diabetes mellitus Test results Pt checking blood glucose readings, did not bring results to clinic 01/17/2015 None diabetes mellitus Glucose monitoring daily 01/17/2015 None diabetes mellitus Exercise no exercise 01/17/2015 None pain Location-Major on the head 11/22/2014 None pain Location-Major on the neck 11/22/2014 None pain Location-Major on the back 11/22/2014 upper right- bruising pain Location-Trunk on the upper back 11/22/2014 reports her eye sockets hurt, right shoulder, neck and back of head. Her right ear hurts also pain Location-Extremities on the right shoulder 11/22/2014 None pain Quality acute None pain Onset and Resolution ongoing 11/22/2014 None pain Onset of Symptom 1 week ago 11/22/2014 None pain Limitation on Activities does not limit activities 11/22/2014 None pain Severity moderate 11/22/2014 None diabetes mellitus Quality non-insulin dependent 10/27/2014 None diabetes mellitus Glucose monitoring twice daily 10/27/2014 None diabetes mellitus Pertinent Findings dizziness 10/27/2014 when bending over diabetes mellitus Test results Pt checking blood glucose at home, see scanned readings 2014 None diabetes mellitus Onset of Symptom onset as an adult 10/27/2014 None headache Onset of Symptom 1 weeks ago 10/15/2014 None headache Pertinent Findings dizziness 10/15/2014 None headache Pertinent Findings nausea 10/15/2014 None headache Pertinent Findings dyspnea 10/15/2014 None nausea Onset of Symptom 1 weeks ago 10/15/2014 None nausea Pertinent Findings dyspnea 10/15/2014 None dizziness Onset of Symptom 1 weeks ago 10/15/2014 None dizziness Pertinent Findings confusion 10/15/2014 None dizziness Pertinent Findings nausea 10/15/2014 None headache Quality acute 10/15/2014 None headache Onset and Resolution ongoing 10/15/2014 None headache Location diffusely 10/15/2014 None headache Limitation on Activities does not limit activities 10/15/2014 None headache Frequency of Episodes increasing 10/15/2014 None headache Significant Medical Conditions allergic rhinitis 10/15/2014 None headache Triggers no known associated factors 10/15/2014 None headache Pertinent Findings blurred vision 10/15/2014 None headache Pertinent Findings confusion 10/15/2014 None headache Pertinent Findings Denies depressed mood 10/15/2014 None headache Pertinent Findings Denies lethargy 10/15/2014 None headache Pertinent Findings Denies lightheadedness 10/15/2014 None headache Pertinent Findings Denies photophobia 10/15/2014 None headache Pertinent Findings Denies phonophobia 10/15/2014 None headache Pertinent Findings Denies syncope 10/15/2014 None nausea Severity mild 10/15/2014 None nausea Frequency of Episodes increasing 10/15/2014 None nausea Triggers no known associated factors 10/15/2014 None nausea Alleviating Factors medication 10/15/2014 None nausea Pertinent Findings Denies cough 10/15/2014 None dizziness Quality loss of balance 10/15/2014 None dizziness Onset and Resolution ongoing 10/15/2014 None dizziness Limitation on Activities does not limit activities 10/15/2014 None dizziness Frequency of Episodes increasing 10/15/2014 None dizziness Significant Family History hypertension 10/15/2014 None dizziness Significant Medical Conditions illness 10/15/2014 None dizziness Triggers no known associated factors 10/15/2014 None dizziness Pertinent Findings Denies blurred vision 10/15/2014 None dizziness Pertinent Findings Denies fever 10/15/2014 None dizziness Pertinent Findings Denies emesis 10/15/2014 None dizziness Pertinent Findings lightheadedness 10/15/2014 None dizziness Pertinent Findings imbalance 10/15/2014 None dizziness Pertinent Findings Denies tachycardia 10/15/2014 None hypertension Quality chronic 09/30/2014 None hypertension Onset and Resolution ongoing 09/30/2014 dr mcdowell increased amlodipine to 10mg daily hypertension Onset of Symptom during adulthood 09/30/2014 None hypertension Blood Pressure Values patient checking blood pressure at home - did not bring in readings 09/30/2014 occasionally. 105/70 at home hypertension Severity mild 09/30/2014 None hypertension Triggers stress 09/30/2014 None hypertension Alleviating Factors medication 09/30/2014 None hypertension Pertinent Findings decreased energy 09/30/2014 None hypertension Pertinent Findings Denies dizziness 09/30/2014 but did get dizzy here after she bent over hypertension Pertinent Findings dyspnea 09/30/2014 None hypertension Pertinent Findings Denies edema 09/30/2014 None Raynaud's phenomenon Location toes 09/30/2014 states her toes turn blue Raynaud's phenomenon Quality chronic 09/30/2014 None Raynaud's phenomenon Onset and Resolution ongoing 09/30/2014 None Raynaud's phenomenon Triggers cold environment 09/30/2014 None Raynaud's phenomenon Pertinent Findings Denies digital ulcers 09/30/2014 Reports Nitro ointment has made them 50% better. cough Quality dry in the morning when she gets up hacks up green and yellow gunk cough Onset of Symptom _ weeks ago 09/30/2014 over cough Pertinent Findings chest discomfort 09/30/2014 during coughing and deep breath cough Pertinent Findings Denies fever 09/30/2014 but has had sweats cough Pertinent Findings chills 09/30/2014 None cough Pertinent Findings nasal congestion 09/30/2014 None cough Pertinent Findings sputum production 09/30/2014 first thing in am- but then rest of day dry diarrhea Onset of Symptom 10 days ago 09/30/2014 this morning was a little better it was a "mush", yesterday all liquid diarrhea Pertinent Findings chills 09/30/2014 been taking Cholestramine packets 2 per day along with Lamotil diarrhea Pertinent Findings Denies fever 09/30/2014 None earache Location left ear 09/30/2014 pain and feels drainage going down her throat earache Onset of Symptom _ weeks ago 09/30/2014 around [place] neck pain Location in the lower cervical/ shoulders area 09/30/2014 sees [facility] neurologist, thinks she needs PT neck pain Quality constant 09/30/2014 None neck pain Pertinent Findings Denies extremity numbness 09/30/2014 None neck pain Pertinent Findings Denies extremity weakness 09/30/2014 C5 and 6 herniated disc headache Location in the left occipital area 09/30/2014 None headache Location in the right occipital area 09/30/2014 also is feeling pain and pressure behind eyes headache Pertinent Findings chills 09/30/2014 None headache Pertinent Findings facial pain 09/30/2014 behind eyes headache Pertinent Findings Denies fever 09/30/2014 None back pain Location in the left lower back area 09/30/2014 and both butt cheeks back pain Onset of Symptom _ years ago 09/30/2014 None back pain Pertinent Findings Denies fever 09/30/2014 None nausea Onset and Resolution ongoing 07/14/2014 None nausea Onset of Symptom 2 months ago 07/14/2014 None nausea Frequency of Episodes daily 07/14/2014 None nausea Triggers no known associated factors 07/14/2014 None nausea Pertinent Findings Denies emesis 07/14/2014 None nausea Pertinent Findings Denies fever 07/14/2014 None nausea Pertinent Findings lethargy 07/14/2014 None hypertension Quality chronic 07/14/2014 None hypertension Onset and Resolution ongoing 07/14/2014 dr wenceslao increased amlodipine to 10mg daily hypertension Onset of Symptom during adulthood 07/14/2014 None hypertension Severity mild 07/14/2014 None hypertension Triggers stress 07/14/2014 None hypertension Alleviating Factors medication 07/14/2014 None Raynaud's phenomenon Location toes 07/14/2014 states her toes turn blue Raynaud's phenomenon Quality chronic 07/14/2014 None Raynaud's phenomenon Onset and Resolution ongoing 07/14/2014 None Raynaud's phenomenon Triggers cold environment 07/14/2014 None Raynaud's phenomenon Pertinent Findings Denies digital ulcers 07/14/2014 None hypertension Blood Pressure Values patient checking blood pressure at home - did not bring in readings 07/14/2014 occasionally. 105/70 at home hypertension Pertinent Findings decreased energy 07/14/2014 None hypertension Pertinent Findings dizziness 07/14/2014 None hypertension Pertinent Findings dyspnea 07/14/2014 None hypertension Pertinent Findings Denies edema 07/14/2014 None nausea Onset of Symptom 2 months ago 06/23/2014 None nausea Frequency of Episodes daily 06/23/2014 None nausea Triggers no known associated factors 06/23/2014 None nausea Pertinent Findings Denies emesis 06/23/2014 None nausea Pertinent Findings Denies fever 06/23/2014 None nausea Pertinent Findings lethargy 06/23/2014 None nausea Onset and Resolution ongoing 06/23/2014 None nausea Onset of Symptom 2 months ago 04/09/2014 None nausea Frequency of Episodes daily 04/09/2014 None nausea Triggers no known associated factors 04/09/2014 None nausea Pertinent Findings Denies fever 04/09/2014 None nausea Pertinent Findings Denies emesis 04/09/2014 None nausea Pertinent Findings lethargy 04/09/2014 None chest pain/pressure Location in the epigastric area 04/09/2014 None chest pain/pressure Location stabbing 04/09/2014 None chest pain/pressure Radiating the left shoulder 04/09/2014 None chest pain/pressure Onset of Symptom 2 months ago 04/09/2014 None chest pain/pressure Limitation on Activities does not limit activities 04/09/2014 None chest pain/pressure Scale of 1(mild) to 10(severe) 7 04/09/2014 None chest pain/pressure Frequency of Episodes daily 04/09/2014 None chest pain/pressure Length of Episodes 30 minutes 04/09/2014 None chest pain/pressure Triggers no known associated factors 04/09/2014 None chest pain/pressure Pertinent Findings dyspnea 04/09/2014 None chest pain/pressure Pertinent Findings cough 04/09/2014 None chest pain/pressure Pertinent Findings anxiety 04/09/2014 None chest pain/pressure Pertinent Findings Denies fever 04/09/2014 None chest pain/pressure Pertinent Findings nausea 04/09/2014 None hypertension Quality chronic 03/16/2014 None hypertension Onset and Resolution ongoing 03/16/2014 dr mcdowell increased amlodipine to 10mg daily Raynaud's phenomenon Location toes 03/16/2014 states her toes turn blue Raynaud's phenomenon Onset and Resolution ongoing 03/16/2014 None hypertension Onset of Symptom during adulthood 03/16/2014 None hypertension Severity mild 03/16/2014 None hypertension Triggers stress 03/16/2014 None hypertension Alleviating Factors medication 03/16/2014 None Raynaud's phenomenon Quality chronic 03/16/2014 None Raynaud's phenomenon Triggers cold environment 03/16/2014 None Raynaud's phenomenon Pertinent Findings Denies digital ulcers 03/16/2014 None hypertension Quality chronic 01/12/2014 None hypertension Onset and Resolution ongoing 01/12/2014 None hypertension Blood Pressure Values pt checking blood pressure - see scanned document 01/12/2014 None knee pain Quality sharp pain 01/12/[address] antoine when leaves here. fell yesterday knee pain Location on the right 01/12/2014 None hypertension Onset of Symptom during adulthood 01/12/2014 None hypertension Severity mild 01/12/2014 None hypertension Alleviating Factors medication 01/12/2014 None hypertension Exacerbating Factors stress 01/12/2014 None hypertension Pertinent Findings Denies anxiety 01/12/2014 None hypertension Pertinent Findings Denies decreased energy 01/12/2014 None hypertension Pertinent Findings Denies dizziness 01/12/2014 None hypertension Blood Pressure Values not checking blood pressure at home 12/15/2013 None hypertension Pertinent Findings edema 12/15/2013 None hypertension Pertinent Findings dizziness 12/15/2013 None hypertension Pertinent Findings dyspnea 12/15/2013 None fatigue Onset of Symptom 6 months ago 12/15/2013 None fatigue Pertinent Findings dizziness 12/15/2013 None fatigue Pertinent Findings dyspnea 12/15/2013 None fatigue Pertinent Findings nausea 12/15/2013 None fatigue Onset and Resolution ongoing 12/15/2013 None fatigue Limitation on Activities moderately limits activities 12/15/2013 None fatigue Frequency of Episodes increasing 12/15/2013 None fatigue Timing of Episodes no specific time 12/15/2013 None fatigue Triggers no known associated factors 12/15/2013 None hypertension Onset and Resolution ongoing 12/15/2013 None hypertension Quality chronic 12/15/2013 None hypertension Onset of Symptom during adulthood 12/15/2013 None hypertension Severity not consistently severe symptoms, the symptoms fluctuate from no symptoms to anxiety and headaches 12/15/2013 None hypertension Frequency of Episodes unchanged 12/15/2013 None hypertension Triggers no known associated factors 12/15/2013 None hypertension Alleviating Factors medication 12/15/2013 None Raynaud's phenomenon Location toes 10/20/2013 None Raynaud's phenomenon Location hands 10/20/2013 None Raynaud's phenomenon Quality chronic 10/20/2013 None Raynaud's phenomenon Onset and Resolution gradual in onset 10/20/[address] buenrostro that she has raynaud's Raynaud's phenomenon Pertinent Findings Denies digital ulcers 10/20/2013 None Raynaud's phenomenon Triggers cold environment 10/20/2013 None Raynaud's phenomenon Severity moderate 10/20/2013 None sinus pain Quality acute 09/15/2013 using flonase and mucinex sinus pain Onset and Resolution gradual in onset 09/15/2013 None sinus pain Severity moderate 09/15/2013 None sinus pain Pertinent Findings facial pain 09/15/2013 None sinus pain Pertinent Findings fever 09/15/2013 None sinus pain Pertinent Findings decreased energy level 09/15/2013 drainage down back of throat sinus pain Pertinent Findings nasal crusting 09/15/2013 yellow drainage sinus pain Location in the bilateral maxillary sinuses 09/15/2013 None sinus pain Location in the bilateral frontal sinuses 09/15/2013 Pt states that her temperature has been flutuating between 99-100F _ Onset and Resolution _ 07/27/2013 Patient had right carpal tunnel repair 4 weeks ago, had left carpal tunnel repair [address] canales. had nerve conduction studies prior to surgeries and was recommended to [facility] to have the repairs done _ Onset and Resolution ongoing 07/27/2013 None _ Quality chronic None _ Location in hands - right hand hurting "worse than before surgery" 07/27/2013 None _ Significant Past Medical History hand numbness 07/27/2013 None _ Severity severe None cough Onset and Resolution ongoing 06/09/2013 None cough Onset and Resolution sudden in onset 06/09/2013 None cough Quality acute None cough Location in the throat 06/09/2013 None cough Pertinent Findings Denies fever 06/09/2013 None cough Pertinent Findings chest discomfort 06/09/2013 None cough Pertinent Findings ill contacts 06/09/2013 None cough Pertinent Findings lethargy 06/09/2013 None cough Pertinent Findings hoarseness 06/09/2013 None cough Pertinent Findings dyspnea 06/09/2013 None cough Pertinent Findings nasal congestion 06/09/2013 None cough Pertinent Findings Denies sputum production 06/09/2013 None cough Quality dry 09/2012 None cough Quality hacking 06/09/2013 None cough Onset of Symptom 1 months ago 06/09/2013 None cough Limitation on Activities does not limit activities 06/09/2013 None cough Frequency of Episodes increasing 06/09/2013 None cough Triggers ill contacts 06/09/2013 None cough Alleviating Factors OTC medications 06/09/2013 None headache Location in the left occipital area 04/20/2013 None headache Location in the right occipital area 04/20/2013 None headache Quality aching 04/20/2013 None nausea Pertinent Findings Denies migraine headache 04/20/2013 None nausea Pertinent Findings Denies lethargy 04/20/2013 None nausea Pertinent Findings Denies ileus 04/20/2013 None nausea Pertinent Findings Denies hematemesis 04/20/2013 None nausea Pertinent Findings Denies gastroenteritis 04/20/2013 None nausea Pertinent Findings Denies fever 04/20/2013 None headache Quality intermittent 04/20/2013 None headache Onset and Resolution gradual in onset 04/20/2013 None headache Onset and Resolution ongoing 04/20/2013 None headache Pertinent Findings nausea 04/20/2013 None headache Pertinent Findings stiff neck 04/20/2013 None headache Alleviating Factors medication 04/20/2013 flexerin, naprosyn, hydrocodone headache Frequency of Episodes weekly 04/20/2013 None headache Onset of Symptom 1 months ago 04/20/2013 None headache Limitation on Activities does not limit activities 04/20/2013 None nausea Onset of Symptom _ months ago 04/20/2013 None nausea Severity mild 04/20/2013 None nausea Severity moderate 04/20/2013 None nausea Frequency of Episodes unchanged 04/20/2013 None nausea Significant Medical Conditions acid reflux 04/20/2013 None nausea Triggers no known associated factors 04/20/2013 None nausea Alleviating Factors medication 04/20/2013 pepcid and carafate worked in the past nausea Pertinent Findings Denies bloating 04/20/2013 None nausea Pertinent Findings Denies cough 04/20/2013 None nausea Quality chronic 04/20/2013 None nausea Pertinent Findings Denies emesis 04/20/2013 None nausea Pertinent Findings Denies melena 04/20/2013 None cough Location in the throat 03/23/2013 None cough Quality productive 03/23/2013 None cough Quality worsening 03/23/2013 yellow phelgm. also sinuses are draining hypertension Quality chronic 03/23/2013 None hypertension Onset and Resolution ongoing 03/23/2013 None hypertension Blood Pressure Values patient checking blood pressure at home - did not bring in readings 03/23/2013 None pain Quality recurrent 03/23/2013 None pain Quality aching states all her joints hurt cough Onset and Resolution ongoing 03/23/2013 None cough Onset of Symptom 2 weeks ago 03/23/2013 None cough Pertinent Findings Denies dysphagia 03/23/2013 None cough Pertinent Findings Denies weakness 03/23/2013 None hypertension Onset of Symptom during adulthood 03/23/2013 None hypertension Severity mild 03/23/2013 None hypertension Pertinent Findings anxiety 03/23/2013 None hypertension Pertinent Findings Denies confusion 03/23/2013 None hypertension Pertinent Findings decreased energy 03/23/2013 None hypertension Triggers stress 03/23/2013 None gait abnormality Onset and Resolution ongoing 01/21/2013 None gait abnormality Quality unsteady 01/21/2013 patient fell last week and hit her head. says she has felt "woozy" since then. gait abnormality Onset of Symptom 1+ weeks ago 01/21/2013 None gait abnormality Limitation on Activities does limit age appropriate activities 01/21/2013 None gait abnormality Triggers no known associated factors 01/21/2013 None gait abnormality Pertinent Findings Denies spasticity 01/21/2013 None gait abnormality Pertinent Findings motor weakness 01/21/2013 None gait abnormality Severity moderate 01/21/2013 None breast complaint Location in the right lower inner quadrant 12/25/2012 None breast complaint Onset and Resolution sudden in onset 12/25/2012 None breast complaint Quality pain 12/25/2012 None back pain Location thoracic spine 12/25/2012 None back pain Quality acute 12/25/2012 None back pain Onset of Symptom 2 weeks ago 12/25/2012 has been taking naproxen and hydrocodone for the pain hypertension Quality chronic 10/20/2012 None hypertension Onset and Resolution ongoing 10/20/2012 None hypertension Severity not consistently severe symptoms, the symptoms fluctuate from no symptoms to anxiety and headaches 10/20/2012 None hypertension Frequency of Episodes unchanged 10/20/2012 None hypertension Triggers no known associated factors 10/20/2012 None hypertension Alleviating Factors medication 10/20/2012 None diarrhea Quality acute 10/20/2012 None diarrhea Onset and Resolution sudden in onset 10/20/2012 None diarrhea Onset of Symptom 4 days ago 10/20/2012 states saturday had diarrhea 20 times hypertension Blood Pressure Values pt checking blood pressure - see scanned document 10/20/2012 None sore throat Quality acute 10/20/2012 None sore throat Onset and Resolution sudden in onset 10/20/2012 None hypertension Quality chronic 08/11/2012 None hypertension Onset and Resolution ongoing 08/11/2012 None hypertension Blood Pressure Values not checking blood pressure at home 08/11/2012 None hypertension Severity not consistently severe symptoms, the symptoms fluctuate from no symptoms to anxiety and headaches 08/11/2012 None hypertension Frequency of Episodes unchanged 08/11/2012 None hypertension Triggers no known associated factors 08/11/2012 None hypertension Alleviating Factors medication 08/11/2012 None gait abnormality Quality chronic 08/11/2012 None gait abnormality Onset and Resolution ongoing 08/11/2012 None gait abnormality Onset of Symptom 11/2 years ago 08/11/[address] Villaseñor- last MRI January 2011. Saw him in May and he tried to do another MRI but her insurance company would not cover it. Sees him again in October. gait abnormality Limitation on Activities necessitates ambulation with a cane or walker 08/11/2012 uses a cane with a seat. 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 States if she sits down when it happens, she won't fall. gait abnormality Frequency of Episodes unchanged 08/11/2012 None gait abnormality Triggers no known associated factors 08/11/2012 None gait abnormality Exacerbating Factors activity 08/11/2012 None gait abnormality Location both feet 08/11/2012 states she has neuropathy in her feet. States her left leg is 5/8" longer than right. Dr. Buenrostro gave her a wedge for her right shoe and it has helped decrease her fall significantly. gait abnormality Severity moderate 08/11/2012 None gait abnormality Pertinent Findings motor weakness 08/11/2012 pt notes that she has not fallen over the past month since she got her b12 shots. hypertension Quality chronic 07/10/2012 None hypertension Onset and Resolution ongoing 07/10/2012 None gait abnormality Quality chronic 07/10/2012 None gait abnormality Onset and Resolution ongoing 07/10/2012 None gait abnormality Onset of Symptom 11/2 years ago 07/10/[address] Villaseñor- last MRI January 2011. Saw him in May and he tried to do another MRI but her insurance company would not cover it. Sees him again in October. gait abnormality Limitation on Activities necessitates ambulation with a cane or walker 07/10/2012 uses a cane with a seat. 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 States if she sits down when it happens, she won't fall. gait abnormality Frequency of Episodes unchanged 07/10/2012 None gait abnormality Triggers no known associated factors 07/10/2012 None gait abnormality Assistive devices cane 07/10/2012 None gait abnormality Exacerbating Factors activity 07/10/2012 None gait abnormality Location both feet 07/10/2012 states she has neuropathy in her feet. States her left leg is 5/8" longer than right. Dr. Buenrostro gave her a wedge for her right shoe and it has helped decrease her fall significantly. gait abnormality Severity moderate 07/10/2012 None hypertension Blood Pressure Values not checking blood pressure at home 07/10/2012 None hypertension Severity not consistently severe symptoms, the symptoms fluctuate from no symptoms to anxiety and headaches 07/10/2012 None hypertension Frequency of Episodes unchanged 07/10/2012 None hypertension Triggers no known associated factors 07/10/2012 None hypertension Alleviating Factors medication 07/10/2012 None Advance Directives No Advance Directive data Encounters Encounter Performer Location Codes Date ([id number]) 04304 EST. PATIENT, LEVEL IV Diagnosis: Epigastric pain[ICD10: R10.13] Diagnosis: Gastro-esophageal reflux disease without esophagitis[ICD10: K21.9] Diagnosis: Diarrhea, unspecified[ICD10: R19.7] Mira Ledesma MD, [facility] CPT-4: 39920 12/11/2018 ([id number]) 14410 EST. PATIENT, LEVEL IV Diagnosis: Generalized abdominal pain[ICD10: R10.84] Diagnosis: Diarrhea, unspecified[ICD10: R19.7] Mira Ledesma MD, [facility] CPT-4: 09376 11/18/2018 ([id number]) 49226 EST. PATIENT, LEVEL IV Diagnosis: Essential (primary) hypertension[ICD10: I10] Diagnosis: Functional diarrhea[ICD10: K59.1] Diagnosis: Generalized anxiety disorder[ICD10: F41.1] Diagnosis: Major depressive disorder, recurrent, moderate[ICD10: F33.1] Caty Ledesma MD, [facility] CPT-4: 60083 10/02/2018 ([id number]) 40792 EST. PATIENT, LEVEL IV Diagnosis: Essential (primary) hypertension[ICD10: I10] Diagnosis: Generalized anxiety disorder[ICD10: F41.1] Diagnosis: Slow transit constipation[ICD10: K59.01] Diagnosis: Other fatigue[ICD10: R53.83] Diagnosis: Nontoxic multinodular goiter[ICD10: E04.2] Caty Ledesma MD, [facility] CPT-4: 69462 08/06/2018 ([id number]) 92285 EST. PATIENT, LEVEL IV Diagnosis: Essential (primary) hypertension[ICD10: I10] Diagnosis: Major depressive disorder, recurrent, moderate[ICD10: F33.1] Diagnosis: Generalized anxiety disorder[ICD10: F41.1] Caty Ledesma MD, [facility] CPT-4: 55653 07/08/2018 ([id number]) 21800 EST. PATIENT, LEVEL IV Diagnosis: Nontoxic multinodular goiter[ICD10: E04.2] Diagnosis: Mixed hyperlipidemia[ICD10: E78.2] Diagnosis: Essential (primary) hypertension[ICD10: I10] Caty Ledesma MD, [facility] CPT-4: 11650 02/11/2018 ([id number]) 39171 EST. PATIENT, LEVEL IV Diagnosis: Nontoxic multinodular goiter[ICD10: E04.2] Diagnosis: Essential (primary) hypertension[ICD10: I10] Diagnosis: Other fatigue[ICD10: R53.83] Caty Ledesma MD, [facility] CPT- 4: 53806 11/12/2017 ([id number]) 99235 EST. PATIENT, LEVEL IV Diagnosis: Nontoxic multinodular goiter[ICD10: E04.2] Diagnosis: Major depressive disorder, recurrent, moderate[ICD10: F33.1] Diagnosis: Generalized anxiety disorder[ICD10: F41.1] Diagnosis: Essential (primary) hypertension[ICD10: I10] Caty Ledesma MD, [facility] CPT-4: 62419 08/20/2017 ([id number]) 49151 EST. PATIENT, LEVEL III Diagnosis: Acute recurrent maxillary sinusitis[ICD10: J01.01] Diagnosis: Encounter for other preprocedural examination[ICD10: Z01.818] Mira Ledesma MD, [facility] CPT-4: 71517 06/24/2017 ([id number]) 83634 EST. PATIENT, LEVEL IV Diagnosis: Acute recurrent frontal sinusitis[ICD10: J01.11] Diagnosis: Type 2 diabetes mellitus without complications[ICD10: E11.9] Diagnosis: Essential (primary) hypertension[ICD10: I10] Caty Ledesma MD, [facility] CPT-4: 52276 05/22/2017 ([id number]) 02276 EST. PATIENT, LEVEL III Diagnosis: Acute recurrent maxillary sinusitis[ICD10: J01.01] Diagnosis: Cough[ICD10: R05] Mira Ledesma MD, [facility] CPT-4: 89440 05/10/2017 ([id number]) 83404 EST. PATIENT, LEVEL IV Diagnosis: Generalized anxiety disorder[ICD10: F41.1] Diagnosis: Muscle weakness (generalized)[ICD10: M62.81] Diagnosis: Somnolence[ICD10: R40.0] Diagnosis: Snoring[ICD10: R06.83] Caty Ledesma MD, [facility] CPT-4: 13511 04/08/2017 ([id number]) 42182 EST. PATIENT, LEVEL IV Diagnosis: Vitamin deficiency, unspecified[ICD10: E56.9] Diagnosis: Major depressive disorder, recurrent, moderate[ICD10: F33.1] Diagnosis: Generalized anxiety disorder[ICD10: F41.1] Diagnosis: Impaired fasting glucose[ICD10: R73.01] Diagnosis: Chronic migraine without aura, not intractable, without status migrainosus[ICD10: G43.709] Diagnosis: Essential (primary) hypertension[ICD10: I10] Diagnosis: Mixed hyperlipidemia[ICD10: E78.2] Diagnosis: Nontoxic multinodular goiter[ICD10: E04.2] Caty Ledesma MD, [facility] CPT-4: 40663 02/20/2017 ([id number]) 19525 EST. PATIENT, LEVEL IV Diagnosis: Generalized anxiety disorder[ICD10: F41.1] Diagnosis: Major depressive disorder, recurrent, moderate[ICD10: F33.1] Diagnosis: Chronic pain syndrome[ICD10: G89.4] Diagnosis: Other specified polyneuropathies[ICD10: G62.89] Diagnosis: Muscle weakness (generalized)[ICD10: M62.81] Diagnosis: Essential (primary) hypertension[ICD10: I10] Caty Ledesma MD, [facility] CPT-4: 66296 11/21/2016 ([id number]) 05969 EST. PATIENT, LEVEL III Diagnosis: Generalized abdominal pain[ICD10: R10.84] Diagnosis: Essential (primary) hypertension[ICD10: I10] Caty Ledesma MD, [facility] CPT-4: 69013 08/29/2016 ([id number]) 75390 EST. PATIENT, LEVEL III Diagnosis: Epigastric pain[ICD10: R10.13] Caty Ledesma MD, [facility] CPT- 4: 89243 07/05/2016 ([id number]) 17147 EST. PATIENT, LEVEL III Diagnosis: Toxic gastroenteritis and colitis[ICD10: K52.1] Caty Ledesma MD, [facility] CPT-4: 09497 06/11/2016 97912 EST. PATIENT, LEVEL III Diagnosis: Left upper quadrant pain[ICD10: R10.12] Estrella Ledesma MD, [facility] CPT-4: 16076 06/04/2016 ([id number]) 17238 EST. PATIENT, LEVEL III Diagnosis: Cellulitis of left toe[ICD10: L03.032] Mira Ledesma MD, [facility] CPT-4: 50627 04/10/2016 ([id number]) 94651 EST. PATIENT, LEVEL III Diagnosis: Essential (primary) hypertension[ICD10: I10] Diagnosis: Chronic pain syndrome[ICD10: G89.4] Diagnosis: Other fatigue[ICD10: R53.83] Caty Ledesma MD [facility] CPT- 4: 43520 03/26/2016 ([id number]) 19642 EST. PATIENT, LEVEL III Diagnosis: Gastro-esophageal reflux disease without esophagitis[ICD10: K21.9] Caty Ledesma MD [facility] CPT-4: 74410 01/23/2016 ([id number]) 86030 EST. PATIENT, LEVEL IV Diagnosis: Type 2 diabetes mellitus without complications[ICD10: E11.9] Diagnosis: Gastro-esophageal reflux disease without esophagitis[ICD10: K21.9] Diagnosis: Functional diarrhea[ICD10: K59.1] Caty Ledesma MD [facility] CPT-4: 78288 12/26/2015 32654 EST. PATIENT, LEVEL IV Diagnosis: Other seasonal allergic rhinitis[ICD10: J30.2] Diagnosis: Acute recurrent maxillary sinusitis[ICD10: J01.01] Diagnosis: Cough[ICD10: R05] Estrella Ledesma MD, [facility] CPT-4: 35677 11/02/2015 19767 EST. PATIENT, LEVEL III Diagnosis: Acute recurrent maxillary sinusitis[ICD10: J01.01] Diagnosis: Urgency of urination[ICD10: R39.15] Diagnosis: Cough[ICD10: R05] Diagnosis: Acute laryngopharyngitis[ICD10: J06.0] Estrella Ledesma MD [facility] CPT-4: 03546 09/13/2015 21550 EST. PATIENT, LEVEL IV Diagnosis: Pain in left lower leg[ICD10: M79.662] Diagnosis: Cramp and spasm[ICD10: R25.2] Diagnosis: Acute nasopharyngitis [common cold][ICD10: J00] Estrella Ledesma MD, [facility] CPT-4: 94978 09/07/2015 ([id number]) 71267 EST. PATIENT, LEVEL IV Diagnosis: Essential (primary) hypertension[ICD10: I10] Diagnosis: Type 2 diabetes mellitus without complications[ICD10: E11.9] Diagnosis: Varicose veins of unspecified lower extremities with other complications[ICD10: I83.899] Caty Ledesma MD, [facility] CPT-4: 50090 08/16/2015 ([id number]) 09707 EST. PATIENT, LEVEL IV Diagnosis: Type 2 diabetes mellitus without complications[ICD10: E11.9] Diagnosis: Other mixed anxiety disorders[ICD10: F41.3] Diagnosis: Vitamin deficiency, unspecified[ICD10: E56.9] Diagnosis: Essential (primary) hypertension[ICD10: I10] Caty Ledesma MD [facility] CPT-4: 29512 06/13/2015 ([id number]) 21345 EST. PATIENT, LEVEL IV Diagnosis: ESSENTIAL HYPERTENSION[ICD9: 401.9] Diagnosis: CHRONIC PAIN SYNDROME[ICD9: 338.4] Caty Ledesma MD [facility] CPT-4: 90617 05/10/2015 ([id number]) 23931 EST. PATIENT, LEVEL III Diagnosis: Back pain[ICD9: 724.5] Diagnosis: URINARY FREQUENCY[ICD9: 788.41] Caty Ledesma MD [facility] CPT- 4: 41779 03/22/2015 ([id number]) 76156 EST. PATIENT, LEVEL IV Diagnosis: ESSENTIAL HYPERTENSION[ICD9: 401.9] Diagnosis: DIABETES TYPE II[ICD9: 250.00] Diagnosis: Varicose vein[ICD9: 454.9] Caty Ledesma MD [facility] CPT- 4: 52180 01/17/2015 ([id number]) 55219 EST. PATIENT, LEVEL IV Diagnosis: HEADACHE[ICD9: 784.0] Diagnosis: Neck pain[ICD9: 723.1] Diagnosis: Vision changes[ICD9: 368.9] Diagnosis: Nausea[ICD9: 787.02] Mira Ledesma MD, [facility] CPT-4: 90156 11/22/2014 ([id number]) 66049 EST. PATIENT, LEVEL I Diagnosis: Meningitis exposure[ICD9: V01.89] Caty Ledesma MD [facility] CPT-4: 52673 11/11/2014 ([id number]) 70657 EST. PATIENT, LEVEL IV Diagnosis: Elevated blood sugar[ICD9: 790.29] Diagnosis: ESSENTIAL HYPERTENSION[ICD9: 401.9] Caty Ledesma MD [facility] CPT-4: 71349 10/27/2014 ([id number]) 11940 EST. PATIENT, LEVEL IV Diagnosis: Costochondritis[ICD9: 733.6] Diagnosis: ALLERGIC RHINITIS[ICD9: 477.9] Diagnosis: Vitamin D deficiency[ICD9: 268.9] Diagnosis: Elevated blood sugar[ICD9: 790.29] Mira Ledesma MD, [facility] CPT-4: 61071 10/15/2014 ([id number]) 52807 EST. PATIENT, LEVEL IV Diagnosis: ESSENTIAL HYPERTENSION[ICD9: 401.9] Diagnosis: Diarrhea[ICD9: 787.91] Caty Ledesma MD, [facility] CPT-4: 71042 09/30/2014 ([id number]) 56538 EST. PATIENT, LEVEL IV Diagnosis: Raynauds disease[ICD9: 443.0] Diagnosis: Nausea[ICD9: 787.02] Diagnosis: ESSENTIAL HYPERTENSION[ICD9: 401.9] Caty Ledesma MD, [facility] CPT-4: 48873 07/14/2014 ([id number]) 95711 EST. PATIENT, LEVEL IV Diagnosis: ESSENTIAL HYPERTENSION[ICD9: 401.9] Diagnosis: Esophageal reflux[ICD9: 530.81] Diagnosis: Hyponatremia[ICD9: 276.1] Diagnosis: OBESITY[ICD9: 278.00] Diagnosis: Chronic migraine[ICD9: 346.70] Caty Ledesma MD, [facility] CPT- 4: 73127 06/23/2014 ([id number]) 30953 EST. PATIENT, LEVEL IV Diagnosis: ESSENTIAL HYPERTENSION[ICD9: 401.9] Diagnosis: GERD (gastroesophageal reflux disease)[ICD9: 530.81] Diagnosis: Costochondritis[ICD9: 733.6] Mira Ledesma MD, [facility] CPT-4: 18210 04/09/2014 ([id number]) 68747 EST. PATIENT, LEVEL IV Diagnosis: ESSENTIAL HYPERTENSION[ICD9: 401.9] Diagnosis: RAYNAUD'S SYNDROME[ICD9: 443.0] Caty Ledesma MD, [facility] CPT- 4: 07151 03/16/2014 ([id number]) 60298 EST. PATIENT, LEVEL III Diagnosis: ESSENTIAL HYPERTENSION[SNOMED: 78453086] Diagnosis: ALLERGIC RHINITIS[ICD9: 477.9] Diagnosis: Knee pain[ICD9: 719.46] Caty Ledesma MD [facility] CPT-4: 04376 01/12/2014 ([id number]) 13764 EST. PATIENT, LEVEL IV Diagnosis: ALLERGIC RHINITIS[ICD9: 477.9] Diagnosis: ESSENTIAL HYPERTENSION[SNOMED: 43076445] Diagnosis: Fatigue[ICD9: 780.79] Caty Ledesma MD [facility] CPT-4: 96875 12/15/2013 ([id number]) 43906 EST. PATIENT, LEVEL III Diagnosis: ESSENTIAL HYPERTENSION[SNOMED: 22271145] Diagnosis: Skin lesion[ICD9: 709.9] Diagnosis: Raynauds disease[ICD9: 443.0] Caty Ledesma MD [facility] CPT- 4: 23394 10/20/2013 ([id number]) 02175 EST. PATIENT, LEVEL III Diagnosis: ACUTE SINUSITIS[ICD9: 461.9] Caty Ledesma MD [facility] CPT- 4: 25403 09/15/2013 ([id number]) 66780 EST. PATIENT, LEVEL IV Diagnosis: ESSENTIAL HYPERTENSION[SNOMED: 30785395] Diagnosis: Peripheral neuropathy[ICD9: 356.9] Diagnosis: Vitamin D deficiency[ICD9: 268.9] Diagnosis: Vitamin B12 deficiency[ICD9: 266.2] Caty Ledesma MD [facility] CPT-4: 57552 07/27/2013 ([id number]) 40407 EST. PATIENT, LEVEL III Diagnosis: ACUTE SINUSITIS[ICD9: 461.9] Diagnosis: COUGH[ICD9: 786.2] Mira Ledesma MD, [facility] CPT-4: 06854 06/09/2013 08069 EST. PATIENT, LEVEL IV Diagnosis: HEADACHE[ICD9: 784.0] Diagnosis: Dysphagia[ICD9: 787.20] Diagnosis: Esophageal reflux[ICD9: 530.81] Caty Ledesma MD [facility] CPT- 4: 63114 04/20/2013 ([id number]) 63908 EST. PATIENT, LEVEL IV Diagnosis: Seasonal allergic rhinitis[ICD9: 477.9] Diagnosis: HEADACHE[ICD9: 784.0] Diagnosis: ESSENTIAL HYPERTENSION[SNOMED: 71890485] Caty Ledesma MD, [facility] CPT-4: 12620 03/23/2013 [id number] 77512 EST. PATIENT, LEVEL III Diagnosis: ABNORMALITY OF GAIT[ICD9: 781.2] Diagnosis: B-COMPLEX DEFIC NEC[ICD9: 266.2] Caty Ledesma MD, [facility] CPT-4: 11785 01/21/2013 ([id number]) 09150 EST. PATIENT, LEVEL IV Diagnosis: ESSENTIAL HYPERTENSION[SNOMED: 78977873] Diagnosis: Breast pain[ICD9: 611.71] Caty Ledesma MD, [facility] CPT-4: 28042 12/25/2012 ([id number] 37014 EST. PATIENT, LEVEL III Diagnosis: ESSENTIAL HYPERTENSION[SNOMED: 44194144] Diagnosis: ACUTE URI[ICD9: 465.9] Caty Ledesma MD, [facility] CPT-4: 46891 10/20/[id number]) 39838 EST. PATIENT, LEVEL IV Diagnosis: B-COMPLEX DEFIC NEC[ICD9: 266.2] Diagnosis: ESSENTIAL HYPERTENSION[SNOMED: 87355207] Diagnosis: Gait instability[ICD9: 781.2] Diagnosis: Back pain[ICD9: 724.5] Caty Ledesma MD, [facility] CPT-4: 31953 08/11/2012 OFFICE VISIT, NEW - LEVEL 4 Diagnosis: ESSENTIAL HYPERTENSION[SNOMED: 68176115] Diagnosis: ACUTE SINUSITIS[ICD9: 461.9] Diagnosis: Gait instability[ICD9: 781.2] Diagnosis: Weakness of both legs[ICD9: 729.89] [facility] CPT-4: 39480 07/10/2012 Plan of Care Planned Activity Notes Codes Status Date Referral: Kuldip Robison HPtel:[phone] [facility] [address] [place] [place] Referral info faxed. Patient informed. Completed 12/22/2018 Visit Plan: Epigastric pain -start zantac twice daily- refer to Dr Robison for evaluation Diarrhea-stool studies negative -CT abdomen negative for acute findings -rx for flagyl provided and instructed on use - increase questran to daily 12/11/2018 Appointment: Mira Valladares WPtel: [facility] [place] [phone] (30 min) Complex 12/11/2018 Patient Education: Patient Medication Summary Completed 12/11/2018 Care Plan: Referral Order SNOMED-CT : [id number] Pending 12/11/2018 Visit Plan: Abdominal pain -diarrhea- - discussed need to stay away from milk products while acutely ill with diarrhea and nausea and emesis as it may worsen the symptoms. Liquids initially until the nausea improves, then recommend to advance to bland diet for 1 day, then advance as tolerated. Call if symptoms not improved. 11/18/2018 Appointment: Mira Valladares WPtel: [phone] (15 min) Moderate 11/18/2018 Patient Education: Patient Medication Summary Completed 11/18/2018 Care Plan: Culture Stool Pending 11/18/2018 Visit Plan: Hypertension - well controlled - continue with current medications, continue with no added salt diet. Pt has been encouraged to exercise daily. The pt has been advised to call the office if there are any acute concerns about change in blood pressure readings at home. Functional diarrhea - advised pt to continue with Questran, call if not continuing to improve. Chronic Depression and anxiety - the pt has symptoms of chronic anxiety and depression that have been fairly well controlled since the last office visit. The pt has expected periods of exacerbation with abatement of the symptoms with change in situational exposure. No change in current medications. 10/02/2018 Appointment: Caty Ledesma WPtel: [facility] [place] (15 min) Moderate 10/02/2018 Patient Education: Patient Medication Summary Completed 10/02/2018 Patient Education: Depression Completed 10/02/2018 Visit Plan: Thyroid nodule - pt to be scheduled for a repeat thyroid ultrasound. HTN - chronic - however due to low blood pressure and fatigue - I have recommended that Michelle needs to decrease her amlodipine to 1/2 pill a day - and if her sbp is greater than 160, take the extra 1/2 dose of amlodipine. Anxiety - stable on lower dose of pristiq 08/06/2018 Appointment: [phone] [facility] (15 min) Moderate 08/06/2018 Patient Education: Patient Medication Summary Completed 08/06/2018 Patient Education: Patient Medication Summary Completed 07/09/2018 Care Plan: SCREENINGMAMMOGRAPHYDIGITAL [facility] : 18561-4 Pending 07/09/2018 Visit Plan: Hypertension - well controlled - continue with current medications, continue with no added salt diet. Pt has been encouraged to exercise daily. The pt has been advised to call the office if there are any acute concerns about change in blood pressure readings at home. GERD - symptoms improved - due to potential side effects of the pantoprazole, I have recommended the following: stop the pantoprazole use over the counter Zantac as needed for GI upset/heart burn Chronic Depression and anxiety increase dose of pristiq to 100mg daily. Hx of chronic headaches - improved - decrease topamax to 1/2 pill in the morning and 1 pill at bedtime x 2 week then decrease down to 1/2 pill twice daily if you tolerate the previously decreased dosing. 07/08/2018 Appointment: Cat[facility] Led[facility]ma [facility]Ptel[facility] [phone] [facility] (15 min) Moderate 07/08/2018 Patient Education: Patient Medication Summary Completed 07/08/2018 Patient Education: Hypertension Completed 07/08/2018 Patient Education: Depression Completed 07/08/2018 Appointment: Injection 06/05/2018 Patient Education: Patient Medication Summary Completed 06/05/2018 Visit Plan: Hypertension - well controlled - continue with current medications, continue with no added salt diet. Pt has been encouraged to exercise daily. The pt has been advised to call the office if there are any acute concerns about change in blood pressure readings at home. Thyroid nodules - pt is to have a thyroid ultrasound scheduled. Hyperlipidemia - pt has been counseled about appropriate diet, exercise, and need for low fat food choices. I have discussed the need for the patient to take medications as prescribed. If the patient has negative side effects from the medication, they are to CALL the office and not abruptly discontinue the medication without discussion with a practitioner in the office. We will check labs in 3-6 months for follow up on the patient's chronic medical problem and to assure normal liver response to medications. 02/11/2018 Appointment: Caty Ledesma WPtel: [phone] [facility] [place] (15 min) Moderate 02/11/2018 Patient Education: Patient Medication Summary Completed 02/11/2018 Care Plan: ECHO EXAMINATION PROCEDURE Pending 02/11/2018 Visit Plan: Hypertension - well controlled - continue with current medications, continue with no added salt diet. Pt has been encouraged to exercise daily. The pt has been advised to call the office if there are any acute concerns about change in blood pressure readings at home. Fatigue - goiter - check repeat ultrasound in February - recommended pt to have thyroid function studies - if her symptoms are persistent - will consider starting on synthroid 25mcg daily. 11/12/2017 Appointment: Cat[facility] Led[facility]ma WPtel[facility] [phone] [facility] [place] (15 min) Moderate 11/12/2017 Patient Education: Patient Medication Summary Completed 11/12/2017 Visit Plan: Hypertension - well controlled - continue with current medications, continue with no added salt diet. Pt has been encouraged to exercise daily. The pt has been advised to call the office if there are any acute concerns about change in blood pressure readings at home. Thyroid abnormality - recommended patient to have a repeat thyroid ultrasound. Chronic Depression and anxiety - the pt has symptoms of chronic anxiety and depression that have been fairly well controlled since the last office visit. The pt has expected periods of exacerbation with abatement of the symptoms with change in situational exposure. No change in current medications. Wounds on lower abdomen - healing well. 08/20/2017 Appointment: Caty Ledesma WPtel: [phone] [facility] [place] (15 min) Moderate 08/20/2017 Patient Education: Patient Medication Summary Completed 08/20/2017 Patient Education: Obesity Completed 08/20/2017 Patient Education: Hypertension Completed 08/20/2017 Care Plan: ECHO EXAMINATION PROCEDURE Pending 08/20/2017 Visit Plan: Sinusitis - Pt has acute infection - pain in face, maxillary region, Pt informed to use decongestant, RX given to patient, sinus rinses also recommended. Call if symptoms do not show improvement. Patient medically cleared for surgery with Dr Weaver 06/24/2017 Appointment: Mira Vallada[facility]el[phone] [phone] (30 min) Complex 06/24/2017 Patient Education: Patient Medication Summary Completed 06/24/2017 Appointment: Injection 06/19/2017 Patient Education: Patient Medication Summary Completed 06/19/2017 Visit Plan: Sinusitis - Pt has acute infection - pain in face, maxillary region, Pt informed to use decongestant, RX given to patient, sinus rinses also recommended. Call if symptoms do not show improvement. Hypertension - well controlled - continue with current medications, continue with no added salt diet. Pt has been encouraged to exercise daily. The pt has been advised to call the office if there are any acute concerns about change in blood pressure readings at home. Diabetes Mellitus - controlled - per recent FSBS reports. I have recommended for the patient to have follow up labs prior to the next office visit. The patient has been instructed to continue with dietary changes, continue with regular FSBS monitoring to assure continued control of diabetes. Pt to call for any acute concerns, complaints, or if the blood glucose readings are starting to become less controlled. 05/22/2017 Visit Plan: Sinusitis - Pt has acute infection - pain in face, maxillary region, Pt informed to use decongestant, RX given to patient, sinus rinses also recommended. Call if symptoms do not show improvement. Hypertension - well controlled - continue with current medications, continue with no added salt diet. Pt has been encouraged to exercise daily. The pt has been advised to call the office if there are any acute concerns about change in blood pressure readings at home. Diabetes Mellitus - controlled - per recent FSBS reports. I have recommended for the patient to have follow up labs prior to the next office visit. The patient has been instructed to continue with dietary changes, continue with regular FSBS monitoring to assure continued control of diabetes. Pt to call for any acute concerns, complaints, or if the blood glucose readings are starting to become less controlled. 05/22/2017 Appointment: Caty Ledesma WPtel: [phone] [facility] (15 min) Moderate 05/22/2017 Patient Education: Patient Medication Summary Completed 05/22/2017 Visit Plan: Sinusitis - Pt has acute infection - pain in face, maxillary region, Pt informed to use decongestant, RX given to patient, sinus rinses also recommended. Call if symptoms do not show improvement. 05/10/2017 Appointment: Mira Valladares [facility]Ptel[facility] [phone] [phone] [place] (15 min) Moderate 05/10/2017 Patient Education: Patient Medication Summary Completed 05/10/2017 Visit Plan: Fatigue - daytime - recommended sleep study, change pristiq to night-time dosing. Sleep study to be scheduled - RX for sleep study sent to hospital. - pt has significant sleepiness during the day - she had a score of 17 on epiworth sleepiness scale. 04/08/2017 Appointment: Caty Ledesma WPtel: [phone] [facility] [place] (15 min) Moderate 04/08/2017 Patient Education: Patient Medication Summary Completed 04/08/2017 Visit Plan: Hypertension - well controlled - continue with current medications, continue with no added salt diet. Pt has been encouraged to exercise daily. The pt has been advised to call the office if there are any acute concerns about change in blood pressure readings at home. Thyroid abnormality - recommended patient to have thyroid ultrasound. 02/20/2017 Appointment: Caty Ledesma WPtel: [phone] [facility] [place] (30 min) Complex 02/20/2017 Patient Education: Patient Medication Summary Completed 02/20/2017 Patient Education: Obesity Completed 02/20/2017 Visit Plan: Hypertension - well controlled - continue with current medications, continue with no added salt diet. Pt has been encouraged to exercise daily. The pt has been advised to call the office if there are any acute concerns about change in blood pressure readings at home. Anxiety - continue with current anxiolytics- monitor symptoms Depression - PA for pristiq. - pt reports cannot take 100mg at one time due to dizziness and nausea if taken all at the same time, that is why the dose was changed to twice daily several years ago - prior to becoming my patient. 11/21/2016 Appointment: Caty Ledesma WPtel: [phone] [facility] (15 min) Moderate 11/21/2016 Patient Education: Patient Medication Summary Completed 11/21/2016 Patient Education: Hypertension Completed 11/21/2016 Visit Plan: Hypertension - well controlled - continue with current medications, continue with no added salt diet. Pt has been encouraged to exercise daily. The pt has been advised to call the office if there are any acute concerns about change in blood pressure readings at home. GERD/Abdominal pain - continue with carafate, low acid diet, call if symptoms not improving. 08/29/2016 Appointment: Caty Ledesma WPtel: [phone] [facility] (30 min) Complex 08/29/2016 Patient Education: Patient Medication Summary Completed 08/29/2016 Patient Education: Hypertension Completed 08/29/2016 Visit Plan: referral to dr. aburto for cysts of right abdomen near ribs 07/05/2016 Appointment: Caty Ledesma WPtel: [facility] (15 min) Moderate 07/05/2016 Patient Education: Patient Medication Summary Completed 07/05/2016 Patient Education: Obesity Completed 07/05/2016 Visit Plan: Diarrhea - improved - but still persistent despite treatment - pt to resume treatment of infection with flagyl - call if not resolved. 06/11/2016 Patient Education: Patient Medication Summary Completed 06/11/2016 Patient Education: Obesity Completed 06/11/2016 Visit Plan: Diarrhea, left upper quadrant pain, left lower quadrant pain - will check labs, will send RX - pt is to notify clinic if symptoms do not improve, if they worsen, or with any concerns. Diarrhea - recommended bland diet, low fat diet, start on probiotic, and rehydrate with gatorade-like product. Pt to call if feeling worse, diarrhea becomes bloody, or does not improve with above recommendations. Pt to call for acute worsening of stomach upset or stomach pain. 06/04/2016 Appointment: Estrella Bynum WPtel: [phone] [facility] (15 min) Moderate 06/04/2016 Patient Education: Patient Medication Summary Completed 06/04/2016 Patient Education: Obesity Completed 06/04/2016 Care Plan: Comp Metabolic Ordered 06/04/2016 Care Plan: Amylase Ordered 06/04/2016 Care Plan: Lipase Ordered 06/04/2016 Care Plan: Cbc With Differential Ordered 06/04/2016 Visit Plan: Paronychia-left great toe-culture of toe today in the office-use bactroban ointment as directed-call if symptoms do not resolve or if any worse. Patient verbalized understanding of plan. 04/10/2016 Visit Plan: Paronychia-left great toe-culture of toe today in the office-use bactroban ointment as directed-call if symptoms do not resolve or if any worse. Patient verbalized understanding of plan. 04/10/2016 Appointment: Mira Valladares WPtel: [phone] (30 min) [facility] 04/10/2016 Patient Education: Patient Medication Summary Completed 04/10/2016 Visit Plan: Hypertension - well controlled - continue with current medications, continue with no added salt diet. Pt has been encouraged to exercise daily. The pt has been advised to call the office if there are any acute concerns about change in blood pressure readings at home. Chronic fatigue and chronic pain syndrome- from chronic illness - no change in current management 03/26/2016 Patient Education: Patient Medication Summary Completed 03/26/2016 Patient Education: Hypertension Completed 03/26/2016 Visit Plan: Esophageal Reflux - the patient has been counseled against excessive intake of caffeine, spicy foods, peppermint, and cinnamon - all of which can exacerbate esophageal reflux. The patient is to take medications as prescribed and call the office if the symptoms are not improving. 01/23/2016 Patient Education: Patient Medication Summary Completed 01/23/2016 Patient Education: Obesity Completed 01/23/2016 Visit Plan: Hypertension - well controlled - continue with current medications, continue with no added salt diet. Pt has been encouraged to exercise daily. The pt has been advised to call the office if there are any acute concerns about change in blood pressure readings at home. Diabetes Mellitus - controlled - per recent FSBS reports. I have recommended for the patient to have follow up labs prior to the next office visit. The patient has been instructed to continue with current medications as previously directed, continue with regular FSBS monitoring to assure continued control of diabetes. Pt to call for any acute concerns, complaints, or if the blood glucose readings are starting to become less controlled. Diarrhea - pt has been recommended to restart DAILY questran. Depression - continue with current antidepressant - recommended vitamin d 50,000 units weekly. 12/26/2015 Patient Education: Patient Medication Summary Completed 12/26/2015 Patient Education: Obesity Completed 12/26/2015 Care Plan: Referral Order SNOMED-CT : [id number] Pending 12/26/2015 Appointment: Caty Ledesma WPtel: [facility] (15 min) Moderate 12/19/2015 Visit Plan: URI - Pt advised to increase fluids, vitamin C. Discussed natural and expected course of this diagnosis and need to alert me if symptoms do not follow expected course, or if any worse. RX sent to patient' s pharmacy. Sinusitis - Pt has acute infection - pain in face, maxillary region , Pt informed to use decongestant, RX given to patient, sinus rinses also recommended. Call if symptoms do not show improvement. Allergies - chronic - recommended pt to use allergy medication as prescribed. Pt has been counseled as to the appropriate use of the medication. Pt to call if allergy symptoms are not controlled with the medication. If using nasal spray, instructions as follows: Nasal spray- use twice daily, one spray per nostril twice daily, after 30 minutes, rinse out nose with saline spray.. Use opposite hand per nostril to spray in the nasal steroid allergy spray. 11/02/2015 Patient Education: Patient Medication Summary Completed 11/02/2015 Visit Plan: Sinusitis - Pt has acute infection - pain in face, maxillary region, Pt informed to use decongestant, RX given to patient, sinus rinses also recommended. Call if symptoms do not show improvement. URI - Pt advised to increase fluids, vitamin C. Discussed natural and expected course of this diagnosis and need to alert me if symptoms do not follow expected course , or if any worse. RX sent to patient's pharmacy. 09/13/2015 Patient Education: Patient Medication Summary Completed 09/13/2015 Patient Education: Patient Medication Summary Completed 09/08/2015 Visit Plan: URI - Pt advised to increase fluids, vitamin C. Discussed natural and expected course of this diagnosis and need to alert me if symptoms do not follow expected course, or if any worse. RX sent to patient' s pharmacy. Left calf pain - pt states that she has chronic pain and fibromyalgia but that this pain is different and feels like a rin horse. Pt states that she has had this pain for a couple of weeks. States that it was warm to the touch but that has improved - will do Venous doppler Pt states that she is scheduled for an MRI of the brain for her neurologist and that she will ask them to send us the report also. 09/07/2015 Appointment: (30 min) Complex 09/07/2015 Patient Education: Patient Medication Summary Completed 09/07/2015 Visit Plan: Hypertension - well controlled - continue with current medications, continue with no added salt diet. Pt has been encouraged to exercise daily. The pt has been advised to call the office if there are any acute concerns about change in blood pressure readings at home. DM - controlled per patient's report - continue with current management. Varicose veins - pt to keep appt with Dr. Kwon in [place] for treatment of varicose veins. 08/16/2015 Patient Education: Patient Medication Summary Completed 08/16/2015 Patient Education: Hypertension Completed 08/16/2015 Visit Plan: Diabetes Mellitus - controlled - per recent FSBS reports. I have recommended for the patient to have follow up labs prior to the next office visit. The patient has been instructed to continue with current medications as previously directed, continue with regular FSBS monitoring to assure continued control of diabetes. Pt to call for any acute concerns, complaints, or if the blood glucose readings are starting to become less controlled. Anxiety/depression-not well controlled-discussed with Dr Ledesma-refer to a psychiatrist for evaluation and mediation management Vitamin D deficiency-check labs Hypertension - well controlled - continue with current medications, continue with no added salt diet. Pt has been encouraged to exercise daily. The pt has been advised to call the office if there are any acute concerns about change in blood pressure readings at home. 06/13/2015 Patient Education: Patient Medication Summary Completed 06/13/2015 Patient Education: Hypertension Completed 06/13/2015 Visit Plan: Hypertension - well controlled - continue with current medications, continue with no added salt diet. Pt has been encouraged to exercise daily. The pt has been advised to call the office if there are any acute concerns about change in blood pressure readings at home. Chronic Pain Syndrome - pt has chronic pain - has been maintained on current medications, has not sought out other medications, only uses PRN pain medications as directed , and understands the consequences of over-medication. 05/10/2015 Appointment: Caty Ledesma WPtel: [phone] [facility] [place] Follow up 05/10/2015 Patient Education: Patient Medication Summary Completed 05/10/2015 Patient Education: Hypertension Completed 05/10/2015 Appointment: Injection 03/30/2015 Patient Education: Patient Medication Summary Completed 03/30/2015 Visit Plan: Frequent Urination with mid to lower back pain - UA negative. Will check labs and KUB X-Ray today. Recommend increase water intake and avoid caffeine. Further plan pending labs and radiology results. 03/22/2015 Appointment: (15 min) Moderate 03/22/2015 Patient Education: Patient Medication Summary Completed 03/22/2015 Visit Plan: Hypertension - well controlled - continue with current medications, continue with no added salt diet. Pt has been encouraged to exercise daily. The pt has been advised to call the office if there are any acute concerns about change in blood pressure readings at home. Diabetes Mellitus - controlled - per recent FSBS reports. I have recommended for the patient to have follow up labs prior to the next office visit. The patient has been instructed to continue with current medications as previously directed, continue with regular FSBS monitoring to assure continued control of diabetes. Pt to call for any acute concerns, complaints, or if the blood glucose readings are starting to become less controlled. Varicose veins - referral to Vascular team from [facility] 01/17/2015 Appointment: Caty Ledesma WPtel: [phone] [facility] Follow up 01/17/2015 Patient Education: Patient Medication Summary Completed 01/17/2015 Patient Education: Hypertension Completed 01/17/2015 Care Plan: Referral Order referral to [facility] for varicose veins - need to see if the patient can have her ultrasound studies HERE with [facility] SNOMED-CT : [id number] Ordered 01/17/2015 Appointment: aCty Ledesma WPtel: [phone] [facility] [place] Follow up 01/04/2015 Visit Plan: Worsening ktdlveup-wphaqg-dcrl injury 1 week ago-recommend CT head due to worsening symptoms and concern for subdural hematoma-patient sent to the hospital for STAT CT. Neck pain-recent fall-xray cervical spine-increase hydrocodone to 10mg/325mg-may consider physical therapy if xray negative for acute injury as patient is experiencing significant neck pain and headache. 11/22/2014 Patient Education: Patient Medication Summary Completed 11/22/2014 Patient Education: .Cervicalgia Neck Pain Completed 11/22/2014 Visit Plan: pt has been informed of signs and symptoms to watch for with her potential exposure to meningitis, pt's questions about symptoms were answered, pt has chronic allergy symptoms 11/11/2014 Patient Education: Patient Medication Summary Completed 11/11/2014 Visit Plan: Hypertension - well controlled - continue with current medications, continue with no added salt diet. Pt has been encouraged to exercise daily. The pt has been advised to call the office if there are any acute concerns about change in blood pressure readings at home. Diabetes Mellitus - controlled - per recent FSBS reports. I have recommended for the patient to have follow up labs prior to the next office visit. The patient has been instructed to continue with current medications as previously directed, continue with regular FSBS monitoring to assure continued control of diabetes. Pt to call for any acute concerns, complaints, or if the blood glucose readings are starting to become less controlled. Hold Aspirin, Lovaza, Antara, and Zetia for one week, then restart all but the aspirin, then restart the aspirin after 2 weeks Check Blood glucose immediately before a meal and then two hours after having eaten the meal - do breakfast one week, then lunch, then supper and bring by report of the glucose readings to the office at the end of the three weeks. 10/27/2014 Appointment: Caty Ledesma WPtel: [facility] Follow up 10/27/2014 Patient Education: Patient Medication Summary Completed 10/27/2014 Patient Education: Hypertension Completed 10/27/2014 Visit Plan: Costochondritis - pt to use anti- inflammatories as directed.. Pt is to call if the chest pain does not improve. Allergies - chronic - recommended pt to use allergy medication as prescribed. Pt has been counseled as to the appropriate use of the medication. Pt to call if allergy symptoms are not controlled with the medication. If using nasal spray , instructions as follows: Nasal spray- use twice daily, one spray per nostril twice daily, after 30 minutes, rinse out nose with saline spray.. Use opposite hand per nostril to spray in the nasal steroid allergy spray. Elevated blood ytnpwa-ekkcpztmt-mzcgqe-check Hgb A1c as well as TSH Vitamin D deficiency-check vitamin D level 10/15/2014 Appointment: Follow up 10/15/2014 Patient Education: Patient Medication Summary Completed 10/15/2014 Care Plan: TSH Pending 10/15/2014 Care Plan: A1C HPLC LOINC : 20878-1 Pending 10/15/2014 Care Plan: VIT D TOTL Pending 10/15/2014 Visit Plan: Hypertension - well controlled - continue with current medications, continue with no added salt diet. Pt has been encouraged to exercise daily. The pt has been advised to call the office if there are any acute concerns about change in blood pressure readings at home. Diarrhea - recommended bland diet, low fat diet, start on probiotic, and rehydrate with gatorade-like product. Pt to call if feeling worse, diarrhea becomes bloody, or does not improve with above recommendations. Pt to call for acute worsening of stomach upset or stomach pain. 09/30/2014 Appointment: Caty Ledesma WPtel: [address] [place], [place] [id number] Follow up 09/30/2014 Patient Education: Patient Medication Summary Completed 09/30/2014 Patient Education: Hypertension Completed 09/30/2014 Appointment: Caty Ledesma WPtel: [address] [place], [place] [id number] Follow up 09/29/2014 Visit Plan: Nausea - pt to finish antibiotics, call if nausea does not improve. Pt needs to start on probiotics. Raynauds syndrome - use nitropaste on toes prn raynauds symptoms. Hypertension - well controlled - continue with current medications, continue with no added salt diet. Pt has been encouraged to exercise daily. The pt has been advised to call the office if there are any acute concerns about change in blood pressure readings at home. 07/14/2014 Appointment: Caty Ledesma WPtel: [address] [place], [place] [id number] Follow up 07/14/2014 Patient Education: Patient Medication Summary Completed 07/14/2014 Patient Education: Hypertension Completed 07/14/2014 Visit Plan: Esophageal Reflux - the patient has been counseled against excessive intake of caffeine, spicy foods, peppermint, and cinnamon - all of which can exacerbate esophageal reflux. The patient is to take medications as prescribed and call the office if the symptoms are not improving. Obesity and Migraine - pt would like "weight loss medication" and needs her migraines more effectively treated. I have recommended that she wait and let us know if her other symptoms improve and we can thus work on other medical problems. check labs. 06/23/2014 Appointment: Caty Ledesma WPtel: [phone] [facility] Follow up 06/23/2014 Patient Education: Patient Medication Summary Completed 06/23/2014 Patient Education: Hypertension Completed 06/23/2014 Visit Plan: HTN-well controlled no changes Costochondritis- chest pain-patient sent for STAT chest xray and cardiac analyzers-instructed her to take anti inflammatories as directed and call if symptoms do not resolve , or if any worse. GERD-restart carafate QID-continue with PPI 04/09/2014 Appointment: Sick 04/09/2014 Patient Education: Patient Medication Summary Completed 04/09/2014 Patient Education: Hypertension Completed 04/09/2014 Visit Plan: Hypertension - well controlled - continue with current medications, continue with no added salt diet. Pt has been encouraged to exercise daily. The pt has been advised to call the office if there are any acute concerns about change in blood pressure readings at home. Raynauds syndrome - no acute treatment at this time - pt is on Norvasc, dose increased by Dr. Mcdowell, pt to keep lower extremities warm, needs to call if symptoms are worsening. 03/16/2014 Appointment: Caty Ledesma WPtel: [phone] [facility] Follow up 03/16/2014 Patient Education: Patient Medication Summary Completed 03/16/2014 Patient Education: Hypertension Completed 03/16/2014 Visit Plan: Hypertension - well controlled - continue with current medications, continue with no added salt diet. Pt has been encouraged to exercise daily. The pt has been advised to call the office if there are any acute concerns about change in blood pressure readings at home. Allergies - chronic - recommended pt to use allergy medication as prescribed. Pt has been counseled as the the appropriate use of the medication. Pt to call if allergy symptoms are not controlled with the medication. If using nasal spray, instructions as follows: Nasal spray- use twice daily, one spray per nostril twice daily, after 30 minutes, rinse out nose with saline spray.. Use opposite hand per nostril to spray in the nasal steroid allergy spray. 01/12/2014 Appointment: Cat[facility] Ledesma WPtel[facility] Follow up 01/12/2014 Patient Education: Patient Medication Summary Completed 01/12/2014 Patient Education: Hypertension Completed 01/12/2014 Visit Plan: Allergies - chronic - recommended pt to use allergy medication as prescribed. Pt has been counseled as the the appropriate use of the medication. Pt to call if allergy symptoms are not controlled with the medication. If using nasal spray, instructions as follows: Nasal spray- use twice daily, one spray per nostril twice daily, after 30 minutes, rinse out nose with saline spray.. Use opposite hand per nostril to spray in the nasal steroid allergy spray. HTN-elevated today-check twice daily at home and call Saturday with readings Fatigue-check labs 12/15/2013 Appointment: Mira Valladares WPtel: [address] [place], [place] [id number] Follow up 12/15/2013 Patient Education: Patient Medication Summary Completed 12/15/2013 Patient Education: Hypertension Completed 12/15/2013 Visit Plan: Hypertension - well controlled - continue with current medications, continue with no added salt diet. Pt has been encouraged to exercise daily. The pt has been advised to call the office if there are any acute concerns about change in blood pressure readings at home. Skin lesion - on scalp - referral to her security auditor - Dr. Teran. Recommended pt to call for appt. Raynaud - very mild case - pt to continue with norvasc, monitor symptoms, keep hands warm, call if symptoms worsen, if fingers turn and stay persistently purple, will consider topical treatments versus increase in norvasc. 10/20/2013 Appointment: Caty Ledesma WPtel: [facility] Follow up 10/20/2013 Patient Education: Patient Medication Summary Completed 10/20/2013 Patient Education: Hypertension Completed 10/20/2013 Visit Plan: Sinusitis - Pt has acute infection - pain in face, maxillary region, Pt informed to use decongestant, RX given to patient, sinus rinses also recommended. Call if symptoms do not show improvement. 09/15/2013 Appointment: [facility] Led[facility]ma [facility]Ptel[facility] [phone] [facility] Sick 09/15/2013 Patient Education: Patient Medication Summary Completed 09/15/2013 Visit Plan: Hypertension - uncontrolled - the patient's medications have been modified as documented in the visit note. The patient has been counseled to cut back on salt in diet for a no added salt diet, low fat diet, start an exercise program with low weight bearing exercises and higher aerobic activity for heart health. The patient is to check blood pressure readings as an outpatient and either fax, call, or email the readings to the office next week for practicioner to review. The pt is to call for acute concerns. Pt is seeing Dr. Mcdowell - recently had blood pressure medication changed - pt thinks she was started on Norvasc. However, pt has not yet started the norvasc, will be starting it this week. Vitamin d and vitamin b12 deficiency - check labs. Peripheral neuropathy - check glucose tolerance test. 07/27/2013 Appointment: Caty Ledesma WPtel: [facility] Follow up 07/27/2013 Patient Education: Patient Medication Summary Completed 07/27/2013 Patient Education: Hypertension Completed 07/27/2013 Visit Plan: Sinusitis - Pt has acute infection - pain in face, maxillary region, Pt informed to use decongestant, RX given to patient, sinus rinses also recommended. Call if symptoms do not show improvement. 06/09/2013 Appointment: [facility] Vall[facility] [phone] [phone] Sick 06/09/2013 Patient Education: Patient Medication Summary Completed 06/09/2013 Visit Plan: Headaches-check ESR and CRP Dysphagia-thyroid ultrasound Esophageal Reflux - the patient has been counseled against excessive intake of caffiene, spicy foods, peppermint, and cinnamon - all of which can exacerbate esophageal reflux. The patient is to take medications as prescribed and call the office if the symptoms are not improving. Restart carafate and pepcid 04/20/2013 Appointment: Blaine Mira WPtel: [phone] Other 04/20/2013 Patient Education: Patient Medication Summary Completed 04/20/2013 Visit Plan: Allergies - chronic - recommended pt to use allergy medication as prescribed. Pt has been counseled as the the appropriate use of the medication. Pt to call if allergy symptoms are not controlled with the medication. If using nasal spray, instructions as follows: Nasal spray- use twice daily, one spray per nostril twice daily, after 30 minutes, rinse out nose with saline spray.. Use opposite hand per nostril to spray in the nasal steroid allergy spray. Hypertension - well controlled - continue with current medications, continue with no added salt diet. Pt has been encouraged to exercise daily. The pt has been advised to call the office if there are any acute concerns about change in blood pressure readings at home. 03/23/2013 Visit Plan: Allergies - chronic - recommended pt to use allergy medication as prescribed. Pt has been counseled as the the appropriate use of the medication. Pt to call if allergy symptoms are not controlled with the medication. If using nasal spray, instructions as follows: Nasal spray- use twice daily, one spray per nostril twice daily, after 30 minutes, rinse out nose with saline spray.. Use opposite hand per nostril to spray in the nasal steroid allergy spray. Hypertension - well controlled - continue with current medications, continue with no added salt diet. Pt has been encouraged to exercise daily. The pt has been advised to call the office if there are any acute concerns about change in blood pressure readings at home. Weakness and gait abnormality - with frequent falls - pt's hands and legs go "numb" and she becomes clumsy and falls - She has never seen a physical medicine physician, I am wondering if testing with emg or other studies would be appropriate. I feel that she would best be served with evaluation by a Physical Medicine physician for full work up and recs. 03/23/2013 Appointment: Caty Ledesma WPtel[facility] [address] [facility] Follow up 03/23/2013 Patient Education: Patient Medication Summary Completed 03/23/2013 Patient Education: Hypertension Completed 03/23/2013 Visit Plan: Gait abnormality with falling at home and hitting head - suspect concussion - recommend that Stephanie see Jose Luis at [facility] for balance and gait training. B12 deficiency - improved with b12 shots, will have patient go back to every 2 week injections instead of weekly injections. 01/21/2013 Appointment: Caty Ledesma WPtel: [facility] Follow up 01/21/2013 Patient Education: Patient Medication Summary Completed 01/21/2013 Visit Plan: Hypertension - well controlled - continue with current medications, continue with no added salt diet. Pt has been encouraged to exercise daily. The pt has been advised to call the office if there are any acute concerns about change in blood pressure readings at home. Breast pain - recommended pt to have mammo. 12/25/2012 Appointment: Caty Ledesma WPtel: [facility] Follow up 12/25/2012 Patient Education: Patient Medication Summary Completed 12/25/2012 Patient Education: Hypertension Completed 12/25/2012 Patient Education: Patient Medication Summary Completed 11/03/2012 Visit Plan: Hypertension - well controlled - continue with current medications, continue with no added salt diet. Pt has been encouraged to exercise daily. The pt has been advised to call the office if there are any acute concerns about change in blood pressure readings at home. URI - Pt advised to increase fluids, vitamin C. Discussed natural and expected course of this diagnosis and need to alert me if symtpoms do not follow expected course, or if any worse. RX sent to patient's pharmacy. b12 injection given in clinic today. 10/20/2012 Appointment: Caty Led[facility]ma WPtel[facility] [address] [facility] Follow up 10/20/2012 Patient Education: Patient Medication Summary Completed 10/20/2012 Patient Education: Hypertension Completed 10/20/2012 Appointment: Caty Ledesma WPtel[facility] [address] [facility] [place] Injection 09/11/2012 Patient Education: Patient Medication Summary Completed 09/11/2012 Appointment: Caty Led[facility]ma WPtel[facility] [address] [facility] [place] Injection 08/18/2012 Visit Plan: Hypertension - well controlled - continue with current medications, continue with no added salt diet. Pt has been encouraged to exercise daily. The pt has been advised to call the office if there are any acute concerns about change in blood pressure readings at home. PT TO CHANGE HER HYDROCHLOROTHIAZIDE TO 12.5 mg daily. Gait instability-pt has noticed less falling while on the b12 shots, continue with injections. Back pain - pt has been hesitant to seek opinion by back surgeon. I have recommended eval, but at this time pt has declined to see a surgeon. 08/11/2012 Appointment: Caty Ledesma WPtel: [facility] Follow up 08/11/2012 Patient Education: Patient Medication Summary Completed 08/11/2012 Patient Education: Hypertension Completed 08/11/2012 Appointment: Caty Ledesma WPtel: [facility] [place] Injection 07/21/2012 Patient Education: Patient Medication Summary Completed 07/21/2012 Visit Plan: Hypertension - well controlled - continue with current medications, continue with no added salt diet. Pt has been encouraged to exercise daily. The pt has been advised to call the office if there are any acute concerns about change in blood pressure readings at home. Sinusitis - Pt has acute infection - pain in face, maxillary region, Pt informed to use decongestant, RX given to patient, sinus rinses also recommended. Recommend take start on probiotic while on antibiotics. Call if symptoms do not show improvement. Gait instability-weakness in legs-recommend appt with neurologist. Plan to discuss with Dr. Ledesma as well and review old records including labs and MRI reports. Plan to check labs as I do not see a vitamin b 12 level and patient is also due for vitamin d level. 07/10/2012 Appointment: Mira Valladares [facility]Ptel[facility] [facility] New Patient 07/10/2012 Patient Education: Patient Medication Summary Completed 07/10/2012 Patient Education: High Blood Pressure: Essential Hypertension Completed 2011 Referral: Blaise Aburto Info. faxed Completed Referral: Kuldip Robison HPtel:[phone] [facility] [address] [place] Referral Appointment Requested Referral: Blaise Aburto Referral Appointment Requested Referral: [facility], - Referral Appointment Requested Instructions Comment pt to start on probiotic - like culturelle while on antibiotic. pt to take fluconazole every other day x 5 doses while on antibiotic - pt to start two days after starting on antibiotic.. Sinusitis - Pt has acute infection - pain in face, maxillary region, Pt informed to use decongestant, RX given to patient, sinus rinses also recommended. Call if symptoms do not show improvement. . Hypertension - well controlled - continue with current medications, continue with no added salt diet. Pt has been encouraged to exercise daily. The pt has been advised to call the office if there are any acute concerns about change in blood pressure readings at home. Thyroid nodules - pt is to have a thyroid ultrasound scheduled. Hyperlipidemia - pt has been counseled about appropriate diet, exercise, and need for low fat food choices. I have discussed the need for the patient to take medications as prescribed. If the patient has negative side effects from the medication, they are to CALL the office and not abruptly discontinue the medication without discussion with a practitioner in the office. We will check labs in 3-6 months for follow up on the patient's chronic medical problem and to assure normal liver response to medications. . Hypertension - well controlled - continue with current medications, continue with no added salt diet. Pt has been encouraged to exercise daily. The pt has been advised to call the office if there are any acute concerns about change in blood pressure readings at home. Breast pain - recommended pt to have mammo. Hold Aspirin, Lovaza, Antara, and Zetia for one week, then restart all but the aspirin, then restart the aspirin after 2 weeks Check Blood glucose immediately before a meal and then two hours after having eaten the meal - do breakfast one week, then lunch, then supper and bring by report of the glucose readings to the office at the end of the three weeks.. . Hypertension - uncontrolled - the patient's medications have been modified as documented in the visit note. The patient has been counseled to cut back on salt in diet for a no added salt diet, low fat diet, start an exercise program with low weight bearing exercises and higher aerobic activity for heart health. The patient is to check blood pressure readings as an outpatient and either fax , call, or email the readings to the office next week for practicioner to review. The pt is to call for acute concerns. Pt is seeing Dr. Mcdowell - recently had blood pressure medication changed - pt thinks she was started on Norvasc. However, pt has not yet started the norvasc, will be starting it this week. Vitamin d and vitamin b12 deficiency - check labs. Peripheral neuropathy - check glucose tolerance test. . Hypertension - well controlled - continue with current medications, continue with no added salt diet. Pt has been encouraged to exercise daily. The pt has been advised to call the office if there are any acute concerns about change in blood pressure readings at home. Diabetes Mellitus - controlled - per recent FSBS reports. I have recommended for the patient to have follow up labs prior to the next office visit. The patient has been instructed to continue with current medications as previously directed, continue with regular FSBS monitoring to assure continued control of diabetes. Pt to call for any acute concerns, complaints, or if the blood glucose readings are starting to become less controlled. Hold Aspirin, Lovaza, Antara, and Zetia for one week, then restart all but the aspirin, then restart the aspirin after 2 weeks Check Blood glucose immediately before a meal and then two hours after having eaten the meal - do breakfast one week, then lunch, then supper and bring by report of the glucose readings to the office at the end of the three weeks. decrease the topiramate to 1.5 pills twice daily and 1/2 pill at noon - see if this helps to improve your migraines by changing the coverage of the medication to more during the day. . Hypertension - well controlled - continue with current medications, continue with no added salt diet. Pt has been encouraged to exercise daily. The pt has been advised to call the office if there are any acute concerns about change in blood pressure readings at home. Thyroid abnormality - recommended patient to have thyroid ultrasound. . Sinusitis - Pt has acute infection - pain in face, maxillary region, Pt informed to use decongestant, RX given to patient, sinus rinses also recommended. Call if symptoms do not show improvement. URI - Pt advised to increase fluids, vitamin C. Discussed natural and expected course of this diagnosis and need to alert me if symptoms do not follow expected course, or if any worse. RX sent to patient's pharmacy. . Headaches-check ESR and CRP Dysphagia-thyroid ultrasound Esophageal Reflux - the patient has been counseled against excessive intake of caffiene, spicy foods, peppermint, and cinnamon - all of which can exacerbate esophageal reflux. The patient is to take medications as prescribed and call the office if the symptoms are not improving. Restart carafate and pepcid . Hypertension - well controlled - continue with current medications, continue with no added salt diet. Pt has been encouraged to exercise daily. The pt has been advised to call the office if there are any acute concerns about change in blood pressure readings at home. PT TO CHANGE HER HYDROCHLOROTHIAZIDE TO 12.5 mg daily. Gait instability-pt has noticed less falling while on the b12 shots, continue with injections. Back pain - pt has been hesitant to seek opinion by back surgeon. I have recommended eval, but at this time pt has declined to see a surgeon. Aleve twice daily x 10 days . Costochondritis - pt to use anti-inflammatories as directed.. Pt is to call if the chest pain does not improve. Allergies - chronic - recommended pt to use allergy medication as prescribed. Pt has been counseled as to the appropriate use of the medication. Pt to call if allergy symptoms are not controlled with the medication. If using nasal spray, instructions as follows: Nasal spray- use twice daily, one spray per nostril twice daily, after 30 minutes, rinse out nose with saline spray.. Use opposite hand per nostril to spray in the nasal steroid allergy spray. Elevated blood dlfrvz-qhnewwcuw-chxzcj-check Hgb A1c as well as TSH Vitamin D deficiency-check vitamin D level stop the pantoprazole stop aspirin use over the counter Zantac as needed for GI upset/heart burn decrease topamax to 1/2 pill in the morning and 1 pill at bedtime x 2 week then decrease down to 1/2 pill twice daily if you tolerate the previously decreased dosing. . Hypertension - well controlled - continue with current medications, continue with no added salt diet. Pt has been encouraged to exercise daily. The pt has been advised to call the office if there are any acute concerns about change in blood pressure readings at home. GERD - symptoms improved - due to potential side effects of the pantoprazole, I have recommended the following: stop the pantoprazole use over the counter Zantac as needed for GI upset/heart burn Chronic Depression and anxiety increase dose of pristiq to 100mg daily. Hx of chronic headaches - improved - decrease topamax to 1/2 pill in the morning and 1 pill at bedtime x 2 week then decrease down to 1/2 pill twice daily if you tolerate the previously decreased dosing. . Paronychia-left great toe-culture of toe today in the office-use bactroban ointment as directed-call if symptoms do not resolve or if any worse. Patient verbalized understanding of plan. . Paronychia-left great toe-culture of toe today in the office-use bactroban ointment as directed-call if symptoms do not resolve or if any worse. Patient verbalized understanding of plan. change the pristiq to night-time . Fatigue - daytime - recommended sleep study, change pristiq to night-time dosing. Sleep study to be scheduled - RX for sleep study sent to hospital. - pt has significant sleepiness during the day - she had a score of 17 on epiworth sleepiness scale. reflex sympathetic dystrophy restart questran take a small amount of the medication daily. vitamin d 5000 units - take 2 pills daily instead of the 1 pill daily. . Hypertension - well controlled - continue with current medications, continue with no added salt diet. Pt has been encouraged to exercise daily. The pt has been advised to call the office if there are any acute concerns about change in blood pressure readings at home. Diabetes Mellitus - controlled - per recent FSBS reports. I have recommended for the patient to have follow up labs prior to the next office visit. The patient has been instructed to continue with current medications as previously directed, continue with regular FSBS monitoring to assure continued control of diabetes. Pt to call for any acute concerns, complaints, or if the blood glucose readings are starting to become less controlled. Diarrhea - pt has been recommended to restart DAILY questran. Depression - continue with current antidepressant - recommended vitamin d 50, 000 units weekly. . Worsening opwkkpal-qfsfhw-xzfn injury 1 week ago- recommend CT head due to worsening symptoms and concern for subdural hematoma- patient sent to the hospital for STAT CT. Neck pain-recent fall-xray cervical spine-increase hydrocodone to 10mg/325mg- may consider physical therapy if xray negative for acute injury as patient is experiencing significant neck pain and headache. need to take a probiotic one pill three times daily . Hypertension - well controlled - continue with current medications, continue with no added salt diet. Pt has been encouraged to exercise daily. The pt has been advised to call the office if there are any acute concerns about change in blood pressure readings at home. Diarrhea - recommended bland diet, low fat diet, start on probiotic, and rehydrate with gatorade-like product. Pt to call if feeling worse, diarrhea becomes bloody, or does not improve with above recommendations. Pt to call for acute worsening of stomach upset or stomach pain. CHECK LABS TODAY STOOL STUDIES KUB TODAY -THEN CT SCAN IF INDICATED . Abdominal pain -diarrhea- - discussed need to stay away from milk products while acutely ill with diarrhea and nausea and emesis as it may worsen the symptoms. Liquids initially until the nausea improves, then recommend to advance to bland diet for 1 day, then advance as tolerated. Call if symptoms not improved. . pt has been informed of signs and symptoms to watch for with her potential exposure to meningitis, pt's questions about symptoms were answered, pt has chronic allergy symptoms We will check labs and X-Ray today. Continue to take Naproxen as needed for low back pain. Further plan pending results of labs and x -ray. . Frequent Urination with mid to lower back pain- UA negative. Will check labs and KUB X-Ray today. Recommend increase water intake and avoid caffeine. Further plan pending labs and radiology results. . Nausea - pt to finish antibiotics, call if nausea does not improve. Pt needs to start on probiotics. Raynauds syndrome - use nitropaste on toes prn raynauds symptoms. Hypertension - well controlled - continue with current medications, continue with no added salt diet. Pt has been encouraged to exercise daily. The pt has been advised to call the office if there are any acute concerns about change in blood pressure readings at home. continue mucinex and zyrtec add flonase if needed . Sinusitis - Pt has acute infection - pain in face, maxillary region, Pt informed to use decongestant, RX given to patient, sinus rinses also recommended. Call if symptoms do not show improvement. . Diarrhea, left upper quadrant pain, left lower quadrant pain - will check labs, will send RX - pt is to notify clinic if symptoms do not improve, if they worsen, or with any concerns. Diarrhea - recommended bland diet, low fat diet, start on probiotic, and rehydrate with gatorade-like product. Pt to call if feeling worse, diarrhea becomes bloody, or does not improve with above recommendations. Pt to call for acute worsening of stomach upset or stomach pain. . Hypertension - well controlled - continue with current medications, continue with no added salt diet. Pt has been encouraged to exercise daily. The pt has been advised to call the office if there are any acute concerns about change in blood pressure readings at home. Thyroid abnormality - recommended patient to have a repeat thyroid ultrasound. Chronic Depression and anxiety - the pt has symptoms of chronic anxiety and depression that have been fairly well controlled since the last office visit. The pt has expected periods of exacerbation with abatement of the symptoms with change in situational exposure. No change in current medications. Wounds on lower abdomen - healing well. . Allergies - chronic - recommended pt to use allergy medication as prescribed. Pt has been counseled as the the appropriate use of the medication. Pt to call if allergy symptoms are not controlled with the medication. If using nasal spray, instructions as follows: Nasal spray- use twice daily, one spray per nostril twice daily, after 30 minutes, rinse out nose with saline spray.. Use opposite hand per nostril to spray in the nasal steroid allergy spray. Hypertension - well controlled - continue with current medications, continue with no added salt diet. Pt has been encouraged to exercise daily. The pt has been advised to call the office if there are any acute concerns about change in blood pressure readings at home. . Hypertension - well controlled - continue with current medications, continue with no added salt diet. Pt has been encouraged to exercise daily. The pt has been advised to call the office if there are any acute concerns about change in blood pressure readings at home. Chronic fatigue and chronic pain syndrome- from chronic illness - no change in current management . URI - Pt advised to increase fluids, vitamin C. Discussed natural and expected course of this diagnosis and need to alert me if symptoms do not follow expected course, or if any worse. RX sent to patient's pharmacy. Left calf pain - pt states that she has chronic pain and fibromyalgia but that this pain is different and feels like a rin horse. Pt states that she has had this pain for a couple of weeks. States that it was warm to the touch but that has improved - will do Venous doppler Pt states that she is scheduled for an MRI of the brain for her neurologist and that she will ask them to send us the report also. increase questran to daily flagyl zantac twice daily refer to surgeon for evaluation of epigastric pain -Dr Robison . Epigastric pain -start zantac twice daily- refer to Dr Robison for evaluation Diarrhea-stool studies negative -CT abdomen negative for acute findings -rx for flagyl provided and instructed on use -increase questran to daily . Hypertension - well controlled - continue with current medications, continue with no added salt diet. Pt has been encouraged to exercise daily. The pt has been advised to call the office if there are any acute concerns about change in blood pressure readings at home. GERD/Abdominal pain - continue with carafate, low acid diet, call if symptoms not improving. . Sinusitis - Pt has acute infection - pain in face, maxillary region, Pt informed to use decongestant, RX given to patient, sinus rinses also recommended. Call if symptoms do not show improvement. . Hypertension - well controlled - continue with current medications, continue with no added salt diet. Pt has been encouraged to exercise daily. The pt has been advised to call the office if there are any acute concerns about change in blood pressure readings at home. Sinusitis - Pt has acute infection - pain in face, maxillary region, Pt informed to use decongestant, RX given to patient, sinus rinses also recommended. Recommend take start on probiotic while on antibiotics. Call if symptoms do not show improvement. Gait instability-weakness in legs-recommend appt with neurologist. Plan to discuss with Dr. Ledesma as well and review old records including labs and MRI reports. Plan to check labs as I do not see a vitamin b 12 level and patient is also due for vitamin d level. . Hypertension - well controlled - continue with current medications, continue with no added salt diet. Pt has been encouraged to exercise daily. The pt has been advised to call the office if there are any acute concerns about change in blood pressure readings at home. DM - controlled per patient's report - continue with current management. Varicose veins - pt to keep appt with Dr. Kwon in [place] for treatment of varicose veins. . Sinusitis - Pt has acute infection - pain in face, maxillary region, Pt informed to use decongestant, RX given to patient, sinus rinses also recommended. Call if symptoms do not show improvement. Patient medically cleared for surgery with Dr Weaver EKG, Chest xray, CBC, CMP, cardiac analyzers . HTN-well controlled no changes Costochondritis-chest pain-patient sent for STAT chest xray and cardiac analyzers-instructed her to take anti inflammatories as directed and call if symptoms do not resolve, or if any worse. GERD-restart carafate QID-continue with PPI boil ease or Recticare - these are numbing medications and i want you to put them in . referral to dr. aburto for cysts of right abdomen near ribs . Hypertension - well controlled - continue with current medications, continue with no added salt diet. Pt has been encouraged to exercise daily. The pt has been advised to call the office if there are any acute concerns about change in blood pressure readings at home. Diabetes Mellitus - controlled - per recent FSBS reports. I have recommended for the patient to have follow up labs prior to the next office visit. The patient has been instructed to continue with current medications as previously directed, continue with regular FSBS monitoring to assure continued control of diabetes. Pt to call for any acute concerns, complaints, or if the blood glucose readings are starting to become less controlled. Varicose veins - referral to Vascular team from [facility] RESTART NASAL SPRAY TWICE DAILY CHECK BLOOD PRESSURE AND PULSE TWICE DAILY AND CALL IN 1 WEEK WITH READINGS . Allergies - chronic - recommended pt to use allergy medication as prescribed. Pt has been counseled as the the appropriate use of the medication. Pt to call if allergy symptoms are not controlled with the medication. If using nasal spray, instructions as follows: Nasal spray- use twice daily, one spray per nostril twice daily, after 30 minutes, rinse out nose with saline spray.. Use opposite hand per nostril to spray in the nasal steroid allergy spray. HTN-elevated today-check twice daily at home and call Saturday with readings Fatigue-check labs Nasal spray- use twice daily, one spray per nostril twice daily, after 30 minutes, rinse out nose with saline spray.. Use opposite hand per nostril to spray in the nasal steroid allergy spray. . Hypertension - well controlled - continue with current medications, continue with no added salt diet. Pt has been encouraged to exercise daily. The pt has been advised to call the office if there are any acute concerns about change in blood pressure readings at home. Allergies - chronic - recommended pt to use allergy medication as prescribed. Pt has been counseled as the the appropriate use of the medication. Pt to call if allergy symptoms are not controlled with the medication. If using nasal spray, instructions as follows: Nasal spray- use twice daily, one spray per nostril twice daily, after 30 minutes, rinse out nose with saline spray.. Use opposite hand per nostril to spray in the nasal steroid allergy spray. Will send Keflex Will call out phenergan with codeine cough syrup continue zyrtec and use flonase. If symptoms continue will refer to Dr. Lyman. . URI - Pt advised to increase fluids, vitamin C. Discussed natural and expected course of this diagnosis and need to alert me if symptoms do not follow expected course, or if any worse. RX sent to patient's pharmacy. Sinusitis - Pt has acute infection - pain in face, maxillary region, Pt informed to use decongestant, RX given to patient, sinus rinses also recommended. Call if symptoms do not show improvement. Allergies - chronic - recommended pt to use allergy medication as prescribed. Pt has been counseled as to the appropriate use of the medication. Pt to call if allergy symptoms are not controlled with the medication. If using nasal spray, instructions as follows: Nasal spray- use twice daily, one spray per nostril twice daily, after 30 minutes, rinse out nose with saline spray.. Use opposite hand per nostril to spray in the nasal steroid allergy spray. B12 deficiency - improved with b12 shots, will have patient go back to every 2 week injections instead of weekly injections.. Gait abnormality with falling at home and hitting head - suspect concussion - recommend that Stephanie [facility] at [facility] for balance and gait training. B12 deficiency - improved with b12 shots, will have patient go back to every 2 week injections instead of weekly injections. . Sinusitis - Pt has acute infection - pain in face, maxillary region, Pt informed to use decongestant, RX given to patient, sinus rinses also recommended. Call if symptoms do not show improvement. Hypertension - well controlled - continue with current medications, continue with no added salt diet. Pt has been encouraged to exercise daily. The pt has been advised to call the office if there are any acute concerns about change in blood pressure readings at home. Diabetes Mellitus - controlled - per recent FSBS reports. I have recommended for the patient to have follow up labs prior to the next office visit. The patient has been instructed to continue with dietary changes, continue with regular FSBS monitoring to assure continued control of diabetes. Pt to call for any acute concerns, complaints, or if the blood glucose readings are starting to become less controlled. . Sinusitis - Pt has acute infection - pain in face, maxillary region, Pt informed to use decongestant, RX given to patient, sinus rinses also recommended. Call if symptoms do not show improvement. Hypertension - well controlled - continue with current medications, continue with no added salt diet. Pt has been encouraged to exercise daily. The pt has been advised to call the office if there are any acute concerns about change in blood pressure readings at home. Diabetes Mellitus - controlled - per recent FSBS reports. I have recommended for the patient to have follow up labs prior to the next office visit. The patient has been instructed to continue with dietary changes, continue with regular FSBS monitoring to assure continued control of diabetes. Pt to call for any acute concerns, complaints, or if the blood glucose readings are starting to become less controlled. . Hypertension - well controlled - continue with current medications, continue with no added salt diet. Pt has been encouraged to exercise daily. The pt has been advised to call the office if there are any acute concerns about change in blood pressure readings at home. Anxiety - continue with current anxiolytics- monitor symptoms Depression - PA for pristiq. - pt reports cannot take 100mg at one time due to dizziness and nausea if taken all at the same time, that is why the dose was changed to twice daily several years ago - prior to becoming my patient. . Allergies - chronic - recommended pt to use allergy medication as prescribed. Pt has been counseled as the the appropriate use of the medication. Pt to call if allergy symptoms are not controlled with the medication. If using nasal spray, instructions as follows: Nasal spray- use twice daily, one spray per nostril twice daily, after 30 minutes, rinse out nose with saline spray.. Use opposite hand per nostril to spray in the nasal steroid allergy spray. Hypertension - well controlled - continue with current medications, continue with no added salt diet. Pt has been encouraged to exercise daily. The pt has been advised to call the office if there are any acute concerns about change in blood pressure readings at home. Weakness and gait abnormality - with frequent falls - pt's hands and legs go "numb" and she becomes clumsy and falls - She has never seen a physical medicine physician, I am wondering if testing with emg or other studies would be appropriate. I feel that she would best be served with evaluation by a Physical Medicine physician for full work up and recs. decrease the amlodipine to 1/2 pill daily increase the probiotic to three times a day . Thyroid nodule - pt to be scheduled for a repeat thyroid ultrasound. HTN - chronic - however due to low blood pressure and fatigue - I have recommended that Michelle needs to decrease her amlodipine to 1/2 pill a day - and if her sbp is greater than 160, take the extra 1/2 dose of amlodipine. Anxiety - stable on lower dose of pristiq . Diabetes Mellitus - controlled - per recent FSBS reports. I have recommended for the patient to have follow up labs prior to the next office visit. The patient has been instructed to continue with current medications as previously directed, continue with regular FSBS monitoring to assure continued control of diabetes. Pt to call for any acute concerns, complaints, or if the blood glucose readings are starting to become less controlled. Anxiety/depression-not well controlled-discussed with Dr Ledesma-refer to a psychiatrist for evaluation and mediation management Vitamin D deficiency-check labs Hypertension - well controlled - continue with current medications, continue with no added salt diet. Pt has been encouraged to exercise daily. The pt has been advised to call the office if there are any acute concerns about change in blood pressure readings at home. . Hypertension - well controlled - continue with current medications, continue with no added salt diet. Pt has been encouraged to exercise daily. The pt has been advised to call the office if there are any acute concerns about change in blood pressure readings at home. URI - Pt advised to increase fluids, vitamin C. Discussed natural and expected course of this diagnosis and need to alert me if symtpoms do not follow expected course, or if any worse. RX sent to patient's pharmacy. b12 injection given in clinic today. . Diarrhea - improved - but still persistent despite treatment - pt to resume treatment of infection with flagyl - call if not resolved. restart carafate before bed - if not better - then can change protonix to before bed as well. . Esophageal Reflux - the patient has been counseled against excessive intake of caffeine, spicy foods, peppermint, and cinnamon - all of which can exacerbate esophageal reflux. The patient is to take medications as prescribed and call the office if the symptoms are not improving. Obesity and Migraine - pt would like "weight loss medication" and needs her migraines more effectively treated. I have recommended that she wait and let us know if her other symptoms improve and we can thus work on other medical problems. check labs. . Hypertension - well controlled - continue with current medications, continue with no added salt diet. Pt has been encouraged to exercise daily. The pt has been advised to call the office if there are any acute concerns about change in blood pressure readings at home. Fatigue - goiter - check repeat ultrasound in February - recommended pt to have thyroid function studies - if her symptoms are persistent - will consider starting on synthroid 25mcg daily. . Hypertension - well controlled - continue with current medications, continue with no added salt diet. Pt has been encouraged to exercise daily. The pt has been advised to call the office if there are any acute concerns about change in blood pressure readings at home. Raynauds syndrome - no acute treatment at this time - pt is on Norvasc, dose increased by Dr. Mcdowell, pt to keep lower extremities warm, needs to call if symptoms are worsening. . Hypertension - well controlled - continue with current medications, continue with no added salt diet. Pt has been encouraged to exercise daily. The pt has been advised to call the office if there are any acute concerns about change in blood pressure readings at home. Functional diarrhea - advised pt to continue with Questran, call if not continuing to improve. Chronic Depression and anxiety - the pt has symptoms of chronic anxiety and depression that have been fairly well controlled since the last office visit. The pt has expected periods of exacerbation with abatement of the symptoms with change in situational exposure. No change in current medications. . Hypertension - well controlled - continue with current medications, continue with no added salt diet. Pt has been encouraged to exercise daily. The pt has been advised to call the office if there are any acute concerns about change in blood pressure readings at home. Skin lesion - on scalp - referral to her security auditor - Dr. Teran. Recommended pt to call for appt. Raynaud - very mild case - pt to continue with norvasc, monitor symptoms, keep hands warm, call if symptoms worsen, if fingers turn and stay persistently purple, will consider topical treatments versus increase in norvasc. . Esophageal Reflux - the patient has been counseled against excessive intake of caffeine, spicy foods, peppermint, and cinnamon - all of which can exacerbate esophageal reflux. The patient is to take medications as prescribed and call the office if the symptoms are not improving. . Hypertension - well controlled - continue with current medications, continue with no added salt diet. Pt has been encouraged to exercise daily. The pt has been advised to call the office if there are any acute concerns about change in blood pressure readings at home. Chronic Pain Syndrome - pt has chronic pain - has been maintained on current medications, has not sought out other medications, only uses PRN pain medications as directed, and understands the consequences of over-medication.
[2019-01-07] MEDS ORDERED: NS IV 1000 ML 1,000 ML IV SCH ×2 (07:15→09:55)
--- OUTSIDE RECORDS SUMMARY | 2019-01-07 07:20 | XMS REPORT | CCD ---
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 Name Role Phone PP Unavailable CCM Unavailable Summary Purpose Interface Exchange Insurance Providers Payer name Policy type / Coverage type Covered libertarian ID Effective Begin Date Effective End Date [facility] Commercial Insurance [id number] Unknown WPS Medicare Part B Commercial Insurance [id number] 2018 Unknown Family history Daughter Diagnosis Age [...] status Unknown 03/26/[address]: 8022921 Former smoker quit 1979 03/26/2016 Number of children Unknown 3 07/10/[address]: 748322415 Never drinks alcohol 07/10/2012 Has the patient ever used illegal drugs? Unknown Has never used illegal drugs 07/10/2012 Allergies, Adverse Reactions, Alerts Substance Reaction Codes Entered Date Inactivated Date Status cymbalta RxNorm: 236683 07/14/2012 No Inactive Date Active Savella nausea RxNorm: 360388 07/14/2012 No Inactive Date Active Metanx nausea RxNorm: 602604 07/14/2012 No Inactive Date Active Gluten Unknown 07/10/2012 No Inactive Date Active Peanuts Unknown 07/10/2012 No Inactive Date Active Levaquin hives RxNorm: 18904 07/14/2012 No Inactive Date Active macrobid pruritis, hives, RxNorm: 647579 07/14/2012 No Inactive Date Active percocet pruritis RxNorm: 697466 07/14/2012 No Inactive Date Active PREDNISONE pruritis, RxNorm: 8640 07/14/2012 No Inactive Date Active ultram pruritis, hives RxNorm: 88972 06/11/2016 No Inactive Date Active GABAPENTIN nausea, [...] Fill Instructions Flagyl 500 mg tablet RxNorm: 487055 1 Tablet(s) PO TID 201812/20/2018 Active Flagyl 500 mg tablet RxNorm: 824987 1 Tablet(s) PO TID 201811/19/2018 Inactive Flagyl 500 mg tablet RxNorm: 964042 1 Tablet(s) PO TID 201811/29/2018 Inactive Augmentin 875 mg-125 mg tablet RxNorm: 010184 1 Tablet(s) PO BID 11/20/2018 11/29/2018 Inactive Augmentin 875 mg-125 mg tablet RxNorm: 437479 1 Tablet(s) PO BID 11/20/2018 11/19/2018 Inactive scopolamine 1 mg over 3 days transdermal patch RxNorm: 636607 1 Patch TD Q72H 10/02/2018 10/31/2018 Inactive Pristiq 50 mg tablet,extended release RxNorm: 152155 1 Tablet(s) PO BID 09/05/2018 08/30/2019 Active Glucocard Vital Sensor strips RxNorm: TEST TWO TIMES A DAY 03/06/2020 Active Request already responded to by other means (e.g. phone or fax) Vitamin B-12 1,000 mcg/mL injection solution RxNorm: 469723 INJECT 1 ML INTRAMUSCULARLY ONCE WEEKLY 08/29/2018 Active amlodipine 5 mg tablet RxNorm: 650170 1 Tablet(s) PO daily 11/19/2019 Active topiramate 100 mg tablet RxNorm: 739711 1/2 Tablet(s) PO BID 08/04/2019 Active [SAVINGS FOR UNINSURED PATIENTS -- BIN:[id number], PCN: ASPROD1, Group: [id number], ID# [id number], Process claim through Iizuu, for questions: . THIS IS NOT INSURANCE.] amlodipine 10 mg tablet RxNorm: 331997 1/2 Tablet(s) PO daily 08/06/2018 08/26/2018 Inactive Pristiq 50 mg tablet,extended release RxNorm: 684333 1 Tablet(s) PO BID 08/06/2018 09/04/2018 Inactive Voltaren 1 % topical gel RxNorm: 682889 APPLY 2 GRAMS TOPICALLY FOUR TIMES A DAY 07/24/2018 10/31/2018 Inactive Fish Oil 1,000 mg capsule RxNorm: 1 Capsule(s) PO TID 201707/02/2019 Active Valium 5 mg tablet RxNorm: 151886 1 Tablet(s) PO PRN as needed 07/08/2018 No Stop Date Active Vagifem 10 mcg vaginal tablet RxNorm: 221865 1 Tablet(s) VAG daily 07/08/2018 No Stop Date Active naproxen sodium 550 mg tablet RxNorm: 924122 Tablet(s) as needed TAKE 1 TABLET BY MOUTH TWO TIMES DAILY 07/08/20182018 Inactive - Ref: [id number] Pristiq 100 mg tablet,extended release RxNorm: 410724 1 Tablet(s) PO daily 07/08/2018 08/05/2018 Inactive Voltaren 1 % topical gel RxNorm: 672999 APPLY 2 GRAMS TOPICALLY FOUR TIMES A DAY 07/08/2018 07/23/2018 Inactive topiramate 100 mg tablet RxNorm: 418014 1 Tablet(s) PO BID 08/05/2018 Inactive [SAVINGS FOR UNINSURED PATIENTS -- BIN:156100, PCN: ASPROD1, Group: [id number] , ID# [id number], Process claim through Iiz[employer], for questions: . THIS IS NOT INSURANCE.] Valium 5 mg tablet RxNorm: 850391 1 Tablet(s) PO PRN as needed 06/24/2018 07/07/2018 Inactive folic acid 1 mg tablet RxNorm: 294492 TAKE ONE TABLET BY MOUTH EVERY DAY 05/27/2018 04/21/2019 Active Valium 5 mg tablet RxNorm: 065771 1 Tablet(s) PO PRN as needed 02/21/2018 No Stop Date Active Valium 5 mg tablet RxNorm: 639831 1 Tablet(s) PO PRN as needed 11/12/2017 02/20/2018 Inactive Synthroid 25 mcg tablet RxNorm: 207006 1 Tablet(s) PO daily 02/201811/11/2017 Inactive Synthroid 25 mcg tablet RxNorm: 457792 1 Tablet(s) PO daily 02/201802/10/2018 Inactive Nitro-Bid 2 % transdermal ointment RxNorm: 678946 APPLY TO AFFECTED AREA(S) TOPICALLY THREE TIMES A DAY NEEDED FOR RAYNAUDS SYMPTOMS OF FEET 08/26/2017 10/24/2017 Inactive Vitamin B-12 1,000 mcg/mL injection solution RxNorm: 614584 INJECT 1ML INTRAMUSCULARLY ONCE WEEKLY 08/23/2017 Inactive Request already responded to by other means (e.g. phone or fax) Vitamin B-12 1,000 mcg/mL injection solution RxNorm: 243758 Milliliter(s) INJECT 1ML INTRAMUSCULARLY ONCE WEEKLY 08/21/2017 08/22/2017 Inactive naproxen sodium 550 mg tablet RxNorm: 871540 TAKE 1 TABLET BY MOUTH TWO TIMES DAILY 08/09/2017 11/06/2017 Inactive - Ref: [id number] Combivent Respimat 20 mcg-100 mcg/actuation solution for inhalation RxNorm: 7946323 1-2 Puff(s) INH Q4 PRN 07/26/2017 No Stop Date Active Valium 5 mg tablet RxNorm: 811060 1 Tablet(s) PO PRN as needed 06/27/2017 11/11/2017 Inactive doxycycline hyclate 100 mg tablet RxNorm: 609769 1 Tablet(s) PO BID 06/24/2017 06/30/2017 Inactive azithromycin 250 mg tablet RxNorm: 583008 1 Tablet(s) PO UD 2 tabs on day #1, then 1 pill daily x 4 more days 05/22/2017 08/20/2017 Inactive hydrocodone 10 mg-chlorpheniramine 8 mg/5 mL oral susp extend.rel 12hr RxNorm: 5753939 5 PO as needed 05/10/20172017 Inactive Augmentin 875 mg-125 mg tablet RxNorm: 443031 1 Tablet(s) PO BID 05/10/2017 05/16/2017 Inactive folic acid 1 mg tablet RxNorm: 707311 TAKE ONE TABLET BY MOUTH EVERY DAY 05/09/2017 05/03/2018 Inactive Carafate 1 gram tablet RxNorm: 445869 TAKE ONE TABLET BY MOUTH FOUR TIMES A DAY 30 MINUTES BEFORE MEALS AND AT BEDTIME 03/18/2017 07/07/2018 Inactive scopolamine 1.5 mg transdermal patch (1 mg over 3 days) RxNorm: 464146 1 Patch TD Q72H use for sea sickness 02/20/201703/05 Inactive Pristiq 50 mg tablet,extended release RxNorm: 121036 1 Tablet(s) PO daily 01/15/2017 07/07/2018 Inactive Pristiq 50 mg tablet,extended release RxNorm: 386219 1 Tablet(s) PO BID 12/20/2016 01/14/2017 Inactive naproxen sodium 550 mg tablet RxNorm: 011967 Tablet(s) Take 1 tablet by mouth twice a day 11/14/2016 08/08/2017 Inactive OneTouch Delica Lancets 33 gauge RxNorm: TEST TWO TIMES A DAY 11/12/2016 04/10/2017 Inactive Phenergan VC-Codeine 6.25 mg-5 mg-10 mg/5 mL syrup RxNorm: 709638 5 Milliliter(s) PO Q6 as needed cough 09/06/20162016 Inactive Nitro-Bid 2 % transdermal ointment RxNorm: 106584 APPLY TO AFFECTED AREA(S) TOPICALLY THREE TIMES A DAY NEEDED FOR RAYNAUDS SYMPTOMS OF FEET 08/21/2016 10/19/2016 Inactive Voltaren 1 % topical gel RxNorm: 136892 APPLY 2 GRAMS TOPICALLY FOUR TIMES A DAY 08/21/2016 12/22/2016 Inactive Vitamin B-12 1,000 mcg/mL injection solution RxNorm: 646187 INJECT 1ML INTRAMUSCULARLY ONCE WEEKLY 08/21/2016 Inactive folic acid 1 mg tablet RxNorm: 778456 TAKE ONE TABLET BY MOUTH EVERY DAY 08/13/2016 04/09/2017 Inactive Flagyl 500 mg tablet RxNorm: 401814 1 Tablet(s) PO TID 201506/22/2016 Inactive Cholestyramine Light 4 gram oral powder RxNorm: 006164 1 packet PO PRN as needed 06/11/2016 No Stop Date Active Flexeril 10 mg tablet RxNorm: 209163 1 Tablet(s) PO as needed 02/19/2017 Inactive 1 hs Vagifem 10 mcg vaginal tablet RxNorm: 444897 1 Tablet(s) VAG BIW -TIW 06/11/2016 07/07/2018 Inactive Flagyl 500 mg tablet RxNorm: 387491 1 Tablet(s) PO TID 201506/10/2016 Inactive Lomotil 2.5 mg-0.025 mg tablet RxNorm: 3859972 1 Tablet(s) PO AC & HS as needed 04/24/2016 05/23/2016 Inactive Keflex 500 mg capsule RxNorm: 136914 1 Capsule(s) PO TID 201504/11/2016 Inactive Keflex 500 mg capsule RxNorm: 715535 1 Capsule(s) PO TID 201504/18/2016 Inactive Pristiq 50 mg tablet,extended release RxNorm: 782687 1 Tablet(s) PO QAM 03/30/2016 12/19/2016 Inactive amitriptyline 25 mg tablet RxNorm: 063592 1/2 Tablet(s) PO QHS x [address] pablo 03/30/2016 06/10/2016 Inactive potassium chloride 20 mEq/15 mL oral liquid RxNorm: 683883 TAKE 2 TABLESPOONS DAILY 03/23/2016 09/18/2016 Inactive Glucocard Vital Sensor strips RxNorm: TEST TWO TIMES A DAY 10/17/2017 Inactive Questran 4 gram oral powder RxNorm: 034699 1 dose PO daily 04/201602/14/2016 Inactive Questran 4 gram oral powder RxNorm: 268467 1 dose PO daily 04/201603/15/2016 Inactive Miralax 17 gram oral powder packet RxNorm: 268584 1 PO daily 02/08/2016 Inactive Miralax 17 gram oral powder packet RxNorm: 708291 1 PO daily 06/10/2016 Inactive Carafate 1 gram tablet RxNorm: 828255 1 Tablet(s) PO QID take 30 minutes before meals and at bedtime 01/23/20162015 Inactive Vitamin D2 50,000 unit capsule RxNorm: 410744 1 Capsule(s) PO QW 12/26/2015 03/24/2016 Inactive Tamiflu 75 mg capsule RxNorm: 385909 1 Capsule(s) PO daily 11/2111/21/2015 Inactive Tamiflu 75 mg capsule RxNorm: 374968 1 Capsule(s) PO daily 11/2112/01/2015 Inactive folic acid 1 mg tablet RxNorm: 132260 TAKE ONE TABLET BY MOUTH EVERY DAY 11/03/2015 07/29/2016 Inactive Keflex 500 mg capsule RxNorm: 811742 1 Capsule(s) PO TID 201511/11/2015 Inactive Augmentin 500 mg-125 mg tablet RxNorm: 513286 1 Tablet(s) PO TID 09/13/2015 09/22/2015 Inactive Zithromax Z-Juanpablo 250 mg tablet RxNorm: 414675 1 Tablet(s) PO 12/25/2015 Inactive OneTouch Delica Lancets 33 gauge RxNorm: 1 test Miscellaneous BID 06/21/2015 06/14/2016 Inactive Nitro-Bid 2 % transdermal ointment RxNorm: 736093 1 Application TD TID as needed raynauds symptoms of feet 06/01/201508/29 Inactive Vitamin B-12 1,000 mcg/mL injection solution RxNorm: 105148 INJECT 1ML INTRAMUSCULARLY ONCE WEEKLY 05/16/201503/2016 Inactive Voltaren 1 % topical gel RxNorm: 669060 2 Gram(s) TOP QID 05/1007/08/2015 Inactive potassium chloride 20 mEq/15 mL oral liquid RxNorm: 661991 TAKE 2 TABLESPOONS DAILY 04/22/2015 10/18/2015 Inactive naproxen sodium 550 mg tablet RxNorm: 113433 Tablet(s) Take 1 tablet by mouth twice a day 03/10/2015 06/01/2016 Inactive naproxen sodium 550 mg tablet RxNorm: 505344 Take 1 tablet by mouth twice a day 03/09/2015 11/15/2016 Inactive 2nd Attempt Pristiq 50 mg tablet,extended release RxNorm: 148048 1 Tablet(s) PO BID 03/09/2015 03/08/2015 Inactive naproxen sodium 550 mg tablet RxNorm: 262451 1 Tablet(s) PO BID 03/09/2015 03/08/2015 Inactive naproxen sodium 550 mg tablet RxNorm: 042835 Take 1 tablet by mouth twice a day 03/09/2015 03/09/2015 Inactive Pristiq 50 mg tablet,extended release RxNorm: 573687 Take 1 tablet twice a day 03/09/2015 03/29/2016 Inactive folic acid 1 mg tablet RxNorm: 888663 TAKE ONE TABLET BY MOUTH EVERY DAY 01/17/2015 11/02/2015 Inactive Vitamin B-12 1,000 mcg/mL injection solution RxNorm: 954561 INJECT 1 MLS DIRECTED ONCE WEEKLY 12/03/20142015 Inactive hydrocodone 10 mg-acetaminophen 325 mg tablet RxNorm: 751042 1 Tablet(s) PO Q6 PRN 11/22/2014 12/21/2014 Inactive [SAVINGS FOR NON-COVERED DRUGS -- BIN:622635, PCN: ASPROD1, Group: XXXXX, ID# [id number], Questions: . THIS IS NOT INSURANCE.] ceftriaxone 1 gram solution for injection RxNorm: 1704905 Inj 11/11/2014 11/11/2014 Inactive [SAVINGS FOR NON-COVERED DRUGS -- BIN:610055, PCN: ASPROD1, Group: XXXXX, ID# [id number], Questions: . THIS IS NOT INSURANCE.] Glucocard Vital Sensor strips RxNorm: 1 test Miscellaneous BID 10/27/2014 10/26/2014 Inactive DX code 790.29 Glucocard Vital Sensor strips RxNorm: 1 test Miscellaneous BID 10/27/2014 11/20/2015 Inactive DX code 790.29 [SAVINGS FOR UNINSURED PATIENTS -- BIN:894551, PCN: ASPROD1, Group: [id number], ID# [id number], Process claim through Iizuu, for questions: . THIS IS NOT INSURANCE.] topiramate 100 mg tablet RxNorm: 820968 2 Tablet(s) PO BID 04/27/2015 Inactive [SAVINGS FOR UNINSURED PATIENTS -- BIN:983536, PCN: ASPROD1, Group: AMVale , ID# [id number], Process claim through [employer], for questions: . THIS IS NOT INSURANCE.] Cholestyramine Susp Light 4 gram powder for susp in a packet RxNorm: 572995 packet PO PRN as needed 08/30/20142015 Inactive Nitro-Bid 2 % transdermal ointment RxNorm: 146541 1 Application TD TID as needed raynauds symptoms of feet 07/14/201410/11 Inactive Flonase 50 mcg/actuation nasal spray,suspension RxNorm: 433412 PLACE 2 SPRAYS IN EACH NOSTRIL DAILY 05/25/2014 08/22/2014 Inactive potassium chloride 20 mEq/15 mL oral liquid RxNorm: 803828 2 Tablespoon(s) PO daily 04/20/2014 04/21/2015 Inactive potassium chloride 10 % oral liquid RxNorm: 224869 2 Tablespoon(s) PO daily 04/20/2014 04/19/2014 Inactive potassium chloride 10 % oral liquid RxNorm: 171020 2 Tablespoon(s) PO daily 04/09/2014 04/19/2014 Inactive folic acid 1 mg tablet RxNorm: 700884 Tablet(s) PO TAKE ONE TABLET BY MOUTH EVERY DAY 02/15/2014 No Stop Date Active folic acid 1 mg tablet RxNorm: 417576 Tablet(s) PO TAKE ONE TABLET BY MOUTH EVERY DAY 02/15/2014 01/16/2015 Inactive folic acid 1 mg tablet RxNorm: 498130 1 Tablet(s) PO daily TAKE ONE TABLET BY MOUTH EVERY DAY 02/15/2014 02/14/2014 Inactive Flonase 50 mcg/actuation nasal spray,suspension RxNorm: 759207 1 [place] NASAL BID 01/12/2014 08/09/2014 Inactive topiramate 100 mg tablet RxNorm: 038890 1.5 Tablet(s) PO BID 08/09/2014 Inactive amoxicillin 500 mg capsule RxNorm: 990053 1 Capsule(s) PO TID 12/24/2013 12/30/2013 Inactive amoxicillin 500 mg capsule RxNorm: 068741 1 Capsule(s) PO TID 12/24/2013 12/23/2013 Inactive Pristiq 50 mg tablet,extended release RxNorm: 901413 1 Tablet(s) PO BID 12/01/2013 02/23/2015 Inactive Vitamin B-12 1,000 mcg/mL injection solution RxNorm: 615032 1 Milliliter(s) Inj QW 11/10/2013 11/09/2013 Inactive Vitamin B-12 1,000 mcg/mL injection solution RxNorm: 926534 1 Milliliter(s) Inj QW 11/10/2013 12/02/2014 Inactive Myrbetriq 25 mg tablet,extended release RxNorm: 2522641 1 Tablet(s) PO daily 10/20/2013 08/16/2014 Inactive fluconazole 150 mg tablet RxNorm: 566051 1 Tablet(s) PO daily 09/15/2013 09/19/2013 Inactive amoxicillin 875 mg-potassium clavulanate 125 mg tablet RxNorm: 210708 1 Tablet(s) PO BID 09/15/2013 09/24/2013 Inactive Pristiq 50 mg tablet,extended release RxNorm: 646255 1 Tablet(s) PO BID 07/30/2013 11/30/2013 Inactive Topamax 25 mg tablet RxNorm: 279773 4 Tablet(s) PO BID 201201/11/2014 Inactive vitamin B12 200mcg [place], Suspension RxNorm: 1 [place] PO daily 07/27/2013 12/25/2015 Inactive Flonase 50 mcg/actuation nasal spray,suspension RxNorm: 012576 2 [place] NASAL daily 06/09/2013 07/08/2013 Inactive Carafate 1 gram tablet RxNorm: 366087 1 Tablet(s) PO ac and hs 05/07/2013 05/06/2013 Inactive Carafate 1 gram tablet RxNorm: 442358 1 Tablet(s) PO ac and hs 05/07/2013 05/31/2014 Inactive potassium chloride 10 % Oral Liquid RxNorm: 842616 1 Tablespoon(s) PO daily 03/23/2013 04/08/2014 Inactive folic acid 1 mg tablet RxNorm: 725479 Tablet(s) PO TAKE ONE TABLET BY MOUTH EVERY DAY 01/29/2013 02/14/2014 Inactive naproxen sodium 550 mg tablet RxNorm: 926105 1 Tablet(s) PO BID 01/21/2013 10/26/2014 Inactive hydrocodone 5 mg-acetaminophen 500 mg tablet RxNorm: 491807 1 Tablet(s) PO Q8 PRN 12/25/2012 02/19/2017 Inactive folic acid 1 mg tablet RxNorm: 728635 1 Tablet(s) PO daily 01/28/2013 Inactive cyanocobalamin (vitamin B-12) 1,000 mcg/mL Injection RxNorm: 683268 1 Milliliter(s ) Inj 2 x month inject 1 mL every other week intramuscularly 11/03/2012 11/02/2012 Inactive please provide 25 gauge syringes as well. cyanocobalamin (vitamin B-12) 1,000 mcg/mL Injection RxNorm: 232235 Milliliter(s) Inj 11/03/2012 11/03/2012 Inactive cyanocobalamin (vitamin B-12) 1,000 mcg/mL Injection RxNorm: 431121 1 Milliliter(s ) Inj 2 x month inject 1 mL every other week intramuscularly 11/03/2012 12/25/2015 Inactive please provide 25 gauge syringes as well. cyanocobalamin (vitamin B-12) 1,000 mcg/mL Injection RxNorm: 794509 1 Milliliter(s ) Inj 10/20/2012 10/20/2012 Inactive Vitamin B-12 1,000 mcg/mL Injection RxNorm: 631396 1 Milliliter(s) Inj 09/11/2012 09/11/2012 Inactive Zithromax Z-Juanpablo 250 mg tablet RxNorm: 441593 Tablet(s) PO UD 12/24/2012 Inactive please give z juanpablo hydrochlorothiazide 25 mg tablet RxNorm: 614483 1/2 Tablet(s) PO daily 08/11/2012 No Stop Date Active Vitamin B-12 1,000 mcg/mL Injection RxNorm: 800707 Milliliter(s) Inj 08/11/2012 08/11/2012 Inactive Vitamin D2 50,000 unit capsule RxNorm: 8217584 Capsule(s) PO one weekly for 8 weeks then resume her daily dosing 07/21/2012 07/20/2012 Inactive Vitamin B-12 1,000 mcg/mL Injection RxNorm: 335069 Milliliter(s) Inj 07/21/2012 07/21/2012 Inactive Vitamin D2 50,000 unit capsule RxNorm: 3971542 Capsule(s) PO one weekly for 8 weeks then resume her daily dosing 07/21/2012 09/18/2012 Inactive Diflucan 150 mg tablet RxNorm: 969822 1 Tablet(s) PO daily 09/201107/12/2012 Inactive HyoMax-SR 0.375 mg tablet,extended release RxNorm: 5015188 Tablet(s) PO PRN No Start Date Active Maxalt-[employer]GER 10 mg disintegrating tablet RxNorm: 647278 Tablet(s) PO PRN No Start Date Active Vitamin D3 2,000 unit tablet RxNorm: 006612 1 Tablet(s) PO daily No Start Date Active potassium chloride 20 mEq/15 mL oral liquid RxNorm: 756084 2 Tablespoon(s) PO daily No Start Date Active Zetia 10 mg tablet RxNorm: 579540 1 Tablet(s) PO QPM No Start Date Active metoprolol tartrate 50 mg tablet RxNorm: 459043 1 Tablet(s) PO BID No Start Date Active biotin 2,500 mcg tablet RxNorm: 587577 1 Tablet(s) PO daily No Start Date Active Zyrtec 10 mg tablet RxNorm: 7312863 1 Tablet(s) PO PRN No Start Date Active Praluent Pen 75 mg/mL subcutaneous pen injector RxNorm: 6194667 1 Milliliter(s) SQ Q 2 weeks No Start Date Active Fioricet oral RxNorm: 471837 oral No Start Date Active Cholestyramine Susp Light 4 gram Packet RxNorm: 849743 packet PO PRN No Start Date 08/29/2014 Inactive Pristiq 50 mg tablet,extended release RxNorm: 713615 1 Tablet(s) PO daily No Start Date 07/29/2013 Inactive Topamax 25 mg tablet RxNorm: 685419 3 Tablet(s) PO BID No Start Date 07/29/2013 Inactive pantoprazole 40 mg tablet,delayed release RxNorm: 239380 1 Tablet(s) PO daily No Start Date 07/07/2018 Inactive Tricor 145 mg tablet RxNorm: 776488 1 Tablet(s) PO daily No Start Date 12/24/2012 Inactive Zithromax Z-Juanpablo 250 mg tablet RxNorm: 583701 Tablet(s) PO UD No Start Date 08/11/2012 Inactive Fish Oil 1,000 mg capsule RxNorm: 1 Capsule(s) PO BID No Start Date 07/07/2018 Inactive Vitamin D3 2,000 unit capsule RxNorm: 367719 1 Capsule(s) PO daily No Start Date 12/25/2015 Inactive Vagifem 10 mcg vaginal tablet RxNorm: 255846 1-2 Tablet(s) VAG weekly No Start Date 06/10/2016 Inactive Gelnique 10 % (100 mg/gram) transdermal gel packet RxNorm: 356335 3% gel 3 pumps TD daily No Start Date 08/09/2014 Inactive Vitamin D3 5,000 unit tablet RxNorm: 090791 1 Tablet(s) PO daily No Start Date 06/10/2016 Inactive hydrochlorothiazide 25 mg tablet RxNorm: 143494 1 Tablet(s) PO daily No Start Date 08/10/2012 Inactive Flexeril 10 mg tablet RxNorm: 679531 Tablet(s) PO No Start Date 06/10/2016 Inactive 1 q am1/2 with dinner1 hs Valium 5 mg tablet RxNorm: 336044 1 Tablet(s) PO PRN No Start Date 06/26/2017 Inactive amlodipine 5 mg tablet RxNorm: 349470 1 Tablet(s) PO daily No Start Date 03/15/2014 Inactive Phenergan VC-Codeine 6.25 mg-5 mg-10 mg/5 mL syrup RxNorm: 734736 5 Milliliter(s) PO Q6 as needed cough No Start Date 2015 Inactive Zithromax Z-Juanpablo 250 mg tablet RxNorm: 690493 Tablet(s) PO UD No Start Date 07/30/2013 Inactive naproxen 500 mg tablet RxNorm: 517765 Tablet(s) PO BID PRN No Start Date 01/20/2013 Inactive Lovaza 1 gram capsule RxNorm: 018358 2 Capsule(s) PO BID No Start Date 03/04/2018 Inactive hydrocodone 5 mg-acetaminophen 500 mg tablet RxNorm: 181945 1 Tablet(s) PO Q8 PRN No Start Date 12/24/2012 Inactive biotin 1000 mg RxNorm : 2 PO No Start Date 06/11/2016 Inactive aspirin 81 mg tablet,delayed release RxNorm: 299860 1 Tablet(s) PO daily No Start Date 07/07/2018 Inactive Lomotil 2.5 mg-0.025 mg tablet RxNorm: 2887437 Tablet(s) PO PRN No Start Date 04/23/2016 Inactive Ditropan XL 5 mg tablet,extended release RxNorm: 752302 1 Tablet(s) PO daily No Start Date 06/09/2018 Inactive Antara 130 mg capsule RxNorm: 487727 1 Capsule(s) PO daily No Start Date 07/07/2018 Inactive folic acid 1 mg tablet RxNorm: 589772 1 Tablet(s) PO daily No Start Date 11/02/2012 Inactive amlodipine 10 mg tablet RxNorm: 713626 1 Tablet(s) PO daily No Start Date 08/05/2018 Inactive amitriptyline 25 mg tablet RxNorm: 465779 1 Tablet(s) PO QHS dr fonseca No Start Date 03/29/2016 Inactive Gelnique transdermal RxNorm: 882165 transdermal No Start Date 03/25/2016 Inactive Toprol XL 50 mg tablet,extended release RxNorm: 201591 1 Tablet(s) PO daily No Start Date 04/08/2017 Inactive potassium chloride 10 % Oral Liquid RxNorm: 840454 1 Tablespoon(s) PO daily No Start Date 03/22/2013 Inactive Lipitor 10 mg tablet RxNorm: 206344 1 Tablet(s) PO QHS No Start Date 12/24/2012 Inactive diltiazem 120 mg tablet RxNorm: 611748 1 Tablet(s) PO daily No Start Date 08/10/2012 Inactive Combivent Respimat 20 mcg-100 mcg/actuation solution for inhalation RxNorm: 7260609 1-2 Puff(s) INH Q4 PRN No Start Date 07/25/2017 Inactive Medication Administered Medication Codes Instructions Start Date Status ceftriaxone 1 gram solution for injection RxNorm: 3545205 11/11/2014 No longer Active cyanocobalamin (vitamin B-12) 1,000 mcg/mL Injection RxNorm : 627054 Milliliter 11/03/2012 No longer Active cyanocobalamin (vitamin B-12) 1,000 mcg/mL Injection RxNorm : 344314 1Milliliter 10/20/2012 No longer Active Vitamin B-12 1,000 mcg/mL Injection RxNorm: 178604 1Milliliter 09/11/2012 No longer Active Vitamin B-12 1,000 mcg/mL Injection RxNorm: 084045 Milliliter 08/11/2012 No longer Active Vitamin B-12 1,000 mcg/mL Injection RxNorm: 533656 Milliliter 07/21/2012 No longer Active Immunizations Vaccine [...] Item Item Code Result Date Stool Culture [id number] Salmonella/Shigella Screen Final report 11/24/2018 Stool Culture [id number] RESULT 1 Comment 11/24/2018 Stool Culture [id number] Campylobacter Culture Final report 11/24/2018 Stool Culture [id number] E coli Shiga Toxin EIA Negative 2018 Clostridium Diff Tox A/B Mjb461 Cdiff Negative 11/19/2018 Comp Metabolic Sen306 NA 137 mEq/L 11/18/2018 Comp Metabolic Ecv641 K 3.9 mEq/L 11/18/2018 Comp Metabolic Cea665 CL 105 mEq/L 11/18/2018 Comp Metabolic Jnc219 CO2 26.0 mEq/L 11/18/2018 Comp Metabolic Rze643 ANION GAP 10 11/18/2018 Comp Metabolic Xzv595 GLUCOSE 98 mg/dL 11/18/2018 Comp Metabolic Rkp084 Creat 0.6 mg/dL 11/18/2018 Comp Metabolic Lsh421 eGFR 107 ml/min/1.73m2 11/18/2018 Comp Metabolic Bhs457 BUN 16 mg/dL 11/18/2018 Comp Metabolic Uag944 B/C Ratio 26.2 Ratio 11/18/2018 Comp Metabolic Liy106 CALCIUM 9.5 mg/dL 11/18/2018 Comp Metabolic Fxf816 ALK PHOS 77 U/L 11/18/2018 Comp Metabolic Vyf705 AST(SGOT) 20 U/L 11/18/2018 Comp Metabolic Qth084 ALT(SGPT) 26 U/L 11/18/2018 Comp Metabolic Lsw567 BILI T 0.4 mg/dL 11/18/2018 Comp Metabolic Vks460 ALBUMIN 4.4 g/dL 11/18/2018 Comp Metabolic Vrc966 TPRO 6.9 g/dL 11/18/2018 Comp Metabolic Rbz483 GLOB 2.6 g/dL 11/18/2018 Comp Metabolic Prl067 A/G Ratio 1.7 Ratio 11/18/2018 Comp Metabolic Dyf280 Osmo 275 mOsmo 11/18/2018 Cbc With Differential [...] 29.2 pg 11/18/2018 Cbc With Differential Ord2 [place]% 7.7 % 11/18/2018 Cbc With Differential Ord2 [...] 1.79 K/ul 11/18/2018 Cbc With Differential Ord2 [place] ABS# 0.5 K/ul 11/18/2018 Cbc With Differential Ord2 [place] ABS# 0.1 K/ul 11/18/2018 Cbc With Differential Ord2 Baso ABS# 0.0 K/ul 11/18/2018 Hepatic Wfd338 ALBUMIN 4.5 g/dL 08/11/2018 Hepatic Qpj124 TPRO 7.3 g/dL 08/11/2018 Hepatic Eww298 GLOB 2.8 g/dL 08/11/2018 Hepatic Rxf941 A/G Ratio 1.6 Ratio 08/11/2018 Hepatic Jnf753 ALK PHOS 89 U/L 08/11/2018 Hepatic Ski023 ALT(SGPT) 31 U/L 08/11/2018 Hepatic Ylm408 AST(SGOT) 20 U/L 08/11/2018 Hepatic Xca034 BILI T 0.4 mg/dL 08/11/2018 Hepatic Llm364 BILI D 0.1 mg/dL 08/11/2018 Hepatic Wsg748 BILI I 0.3 mg/dL 08/11/2018 Lipid Ord30 [...] Ord30 C/HDL 3.7 Ratio 05/01/2018 Comp Metabolic Vom909 NA 140 mEq/L 05/01/2018 Comp Metabolic Rbt545 K 4.1 mEq/L 05/01/2018 Comp Metabolic Iwk364 CL 107 mEq/L 05/01/2018 Comp Metabolic Shf488 CO2 25.0 mEq/L 05/01/2018 Comp Metabolic Irk742 ANION GAP 12 05/01/2018 Comp Metabolic Cye828 GLUCOSE 98 mg/dL 05/01/2018 Comp Metabolic Llc549 Creat 0.7 mg/dL 05/01/2018 Comp Metabolic Gyk717 eGFR 96 ml/min/1.73m2 05/01/2018 Comp Metabolic Jpi777 BUN 14 mg/dL 05/01/2018 Comp Metabolic Ctj774 B/C Ratio 20.9 Ratio 05/01/2018 Comp Metabolic Xhk173 CALCIUM 9.5 mg/dL 05/01/2018 Comp Metabolic Gtl372 ALK PHOS 74 U/L 05/01/2018 Comp Metabolic Tyl068 AST(SGOT) 19 U/L 05/01/2018 Comp Metabolic Sbn750 ALT(SGPT) 29 U/L 05/01/2018 Comp Metabolic Uwr436 BILI T 0.3 mg/dL 05/01/2018 Comp Metabolic Jrv095 ALBUMIN 4.3 g/dL 05/01/2018 Comp Metabolic Crx691 TPRO 6.7 g/dL 05/01/2018 Comp Metabolic Afo549 GLOB 2.4 g/dL 05/01/2018 Comp Metabolic Ubk162 A/G Ratio 1.8 Ratio 05/01/2018 Comp Metabolic Cfx755 Osmo 280 mOsmo 05/01/2018 Free T4 Blg915 FREE T4 0.95 ng/dL 02/11/2018 Tsh Ord6 TSH (3rd IS) 2.16 uIU/mL 02/11/2018 Free T4 Pzg618 FREE T4 0.81 ng/dL 11/12/2017 Tsh Ord6 TSH (3rd IS) 1.66 uIU/mL 11/12/2017 Tsh Ord6 hTSH II 1.45 uIU/mL 08/20/2017 Free T4 Yvp294 FREE T4 0.80 ng/dL 08/20/2017 Hepatic Atd337 ALBUMIN 4.4 g/dL 08/20/2017 Hepatic Tuy730 TPRO 6.6 g/dL 08/20/2017 Hepatic Cqn166 GLOB 2.2 g/dL 08/20/2017 Hepatic Kiz919 A/G Ratio 2.0 Ratio 08/20/2017 Hepatic Pyc622 ALK PHOS 50 U/L 08/20/2017 Hepatic Pxk328 ALT(SGPT) 20 U/L 08/20/2017 Hepatic Leu514 AST(SGOT) 20 U/L 08/20/2017 Hepatic Wua567 BILI T 0.3 mg/dL 08/20/2017 Hepatic Ypg671 BILI D 0.1 mg/dL 08/20/2017 Hepatic Uug956 BILI I 0.2 mg/dL 08/20/2017 Lipid Ord30 [...] 30.3 pg 02/21/2017 Cbc With Differential Ord2 [place]% 6.9 % 02/21/2017 Cbc With Differential Ord2 [...] 1.82 K/ul 02/21/2017 Cbc With Differential Ord2 [place] ABS# 0.5 K/ul 02/21/2017 Cbc With Differential Ord2 E[place] ABS# 0.2 K/ul 02/21/2017 Cbc With Differential Ord2 Baso ABS# 0.0 K/ul 02/21/2017 %Hba1C Awh938 % HbA1c 36058-3 5.8 % 02/21/2017 %Hba1C Eec061 Gluc Ave 120 mg/dL 02/21/2017 Tsh Ord6 hTSH II 1.90 uIU/mL 02/21/2017 Vitamin D 25 Oh Akj6649 VITAMIN D, 25 HYDROXY 42.82 ng/mL Comp Metabolic Pwi527 NA 141 mEq/L 02/21/2017 Comp Metabolic Lai705 K 4.1 mEq/L 02/21/2017 Comp Metabolic Gtz534 CL 107 mEq/L 02/21/2017 Comp Metabolic Dfo128 CO2 25.0 mEq/L 02/21/2017 Comp Metabolic Joq434 ANION GAP 13 02/21/2017 Comp Metabolic Wyy286 GLUCOSE 87 mg/dL 02/21/2017 Comp Metabolic Oqq309 Creat 0.8 mg/dL 02/21/2017 Comp Metabolic Fue981 eGFR 80 ml/min/1.73m2 02/21/2017 Comp Metabolic Ffj304 BUN 20 mg/dL 02/21/2017 Comp Metabolic Rqy901 B/C Ratio 25.3 Ratio 02/21/2017 Comp Metabolic Mmm037 CALCIUM 9.5 mg/dL 02/21/2017 Comp Metabolic Hto546 ALK PHOS 61 U/L 02/21/2017 Comp Metabolic Ngq204 AST(SGOT) 16 U/L 02/21/2017 Comp Metabolic Cjr112 ALT(SGPT) 19 U/L 02/21/2017 Comp Metabolic Vma712 BILI T 0.3 mg/dL 02/21/2017 Comp Metabolic Xak140 ALBUMIN 4.4 g/dL 02/21/2017 Comp Metabolic Nkp735 TPRO 7.0 g/dL 02/21/2017 Comp Metabolic Hhs867 GLOB 2.6 g/dL 02/21/2017 Comp Metabolic Pqc631 A/G Ratio 1.7 Ratio 02/21/2017 Comp Metabolic Gos509 Osmo 283 mOsmo 02/21/2017 Lipid Ord30 CHOL 185 mg/dL 02/21/2017 Lipid Ord30 HDL 74.0 mg/dl 02/21/2017 Lipid Ord30 TRIG 148 mg/dL 02/21/2017 Lipid Ord30 LDL 81 mg/dL 02/21/2017 Lipid Ord30 C/HDL 2.5 Ratio 02/21/2017 Hepatic Iwa772 ALBUMIN 4.9 g/dL 08/21/2016 Hepatic Hsv529 TPRO 7.3 g/dL 08/21/2016 Hepatic Vyk900 GLOB 2.5 g/dL 08/21/2016 Hepatic Alw780 A/G Ratio 2.0 Ratio 08/21/2016 Hepatic Jcl818 ALK PHOS 76 U/L 08/21/2016 Hepatic Hss418 ALT(SGPT) 29 U/L 08/21/2016 Hepatic Wud271 AST(SGOT) 22 U/L 08/21/2016 Hepatic Ztb443 BILI T 0.4 mg/dL 08/21/2016 Hepatic Whm437 BILI D 0.1 mg/dL 08/21/2016 Hepatic Nky690 BILI I 0.3 mg/dL 08/21/2016 Lipid Ord30 CHOL 302 mg/dL 08/21/2016 Lipid Ord30 HDL 69.0 mg/dl 08/21/2016 Lipid Ord30 TRIG 223 mg/dL 08/21/2016 Lipid Ord30 LDL 188 mg/dL 08/21/2016 Lipid Ord30 C/HDL 4.4 Ratio 08/21/2016 Lipase Qac827 LIPASE 14 U/L 06/04/2016 Cbc With Differential [...] 30.0 pg 06/04/2016 Cbc With Differential Ord2 [place]% 6.5 % 06/04/2016 Cbc With Differential Ord2 [...] 1.50 K/ul 06/04/2016 Cbc With Differential Ord2 [place] ABS# 0.4 K/ul 06/04/2016 Cbc With Differential Ord2 Eos ABS# 0.1 K/ul 06/04/2016 Cbc With Differential Ord2 Baso ABS# 0.0 K/ul 06/04/2016 Comp Metabolic Unj629 NA 135 mEq/L 06/04/2016 Comp Metabolic Aav144 K 3.8 mEq/L 06/04/2016 Comp Metabolic Rit473 CL 101 mEq/L 06/04/2016 Comp Metabolic Ihg476 CO2 26.0 mEq/L 06/04/2016 Comp Metabolic Jpl606 ANION GAP 12 06/04/2016 Comp Metabolic Nte034 GLUCOSE 91 mg/dL 06/04/2016 Comp Metabolic Ngj059 Creat 0.8 mg/dL 06/04/2016 Comp Metabolic Opj178 eGFR 74 ml/min/1.73m2 06/04/2016 Comp Metabolic Dgd454 BUN 16 mg/dL 06/04/2016 Comp Metabolic Aqg676 B/C Ratio 19.0 Ratio 06/04/2016 Comp Metabolic Rsl599 CALCIUM 10.0 mg/dL 06/04/2016 Comp Metabolic Ers840 ALK PHOS 76 U/L 06/04/2016 Comp Metabolic Dwp105 AST(SGOT) 20 U/L 06/04/2016 Comp Metabolic Hey096 ALT(SGPT) 24 U/L 06/04/2016 Comp Metabolic Okk086 BILI T 0.3 mg/dL 06/04/2016 Comp Metabolic Bpn363 ALBUMIN 4.6 g/dL 06/04/2016 Comp Metabolic Ctt916 TPRO 6.9 g/dL 06/04/2016 Comp Metabolic Qml039 GLOB 2.3 g/dL 06/04/2016 Comp Metabolic Khb998 A/G Ratio 2.0 Ratio 06/04/2016 Comp Metabolic Sql759 Osmo 271 mOsmo 06/04/2016 Amylase Ord34 AMYLASE 31 U/L 06/04/2016 Hepatic Skb494 ALBUMIN 4.3 g/dL 2016 Hepatic Oti217 TPRO 6.7 g/dL 2016 Hepatic Gdv406 GLOB 2.4 g/dL 2016 Hepatic Uol535 A/G Ratio 1.8 Ratio 2016 Hepatic Zes111 ALK PHOS 50 U/L 2016 Hepatic Xwq113 ALT(SGPT) 20 U/L 2016 Hepatic Dop588 AST(SGOT) 18 U/L 2016 Hepatic Wdk935 BILI T 0.4 mg/dL 2016 Hepatic Ptu185 BILI D 0.1 mg/dL 2016 Hepatic Sii647 BILI I 0.3 mg/dL 2016 Lipid Ord30 CHOL 245 mg/dL 2016 Lipid Ord30 HDL 62.0 mg/dl 2016 Lipid Ord30 TRIG 140 mg/dL 2016 Lipid Ord30 LDL 155 mg/dL 2016 Lipid Ord30 C/HDL 4.0 Ratio 2016 Urine Culture Ucult Preliminary No Growth Day 1 09/15/2015 Urine Culture Ucult Complete No Growth Day 2 09/15/2015 Magnesium Ord90 Mag 1.9 mg/dL 09/07/2015 Comp Metabolic Hck704 NA 139 mEq/L 09/07/2015 Comp Metabolic Ocg603 K 4.4 mEq/L 09/07/2015 Comp Metabolic Ovn049 CL 107 mEq/L 09/07/2015 Comp Metabolic Tdb818 CO2 24.0 mEq/L 09/07/2015 Comp Metabolic Rbv640 ANION GAP 12 09/07/2015 Comp Metabolic Phx882 GLUCOSE 91 mg/dL 09/07/2015 Comp Metabolic Rfe815 Creat 1.0 mg/dL 09/07/2015 Comp Metabolic Yzm401 eGFR 64 ml/min/1.73m2 09/07/2015 Comp Metabolic Ixk983 BUN 31 mg/dL 09/07/2015 Comp Metabolic Pdj330 B/C Ratio 32.3 Ratio 09/07/2015 Comp Metabolic Vgu024 CALCIUM 9.7 mg/dL 09/07/2015 Comp Metabolic Kys364 ALK PHOS 56 U/L 09/07/2015 Comp Metabolic Gzq309 AST(SGOT) 29 U/L 09/07/2015 Comp Metabolic Zvq359 ALT(SGPT) 34 U/L 09/07/2015 Comp Metabolic Esk704 BILI T 0.3 mg/dL 09/07/2015 Comp Metabolic Eua818 ALBUMIN 4.6 g/dL 09/07/2015 Comp Metabolic Pni336 TPRO 7.0 g/dL 09/07/2015 Comp Metabolic Pdr555 GLOB 2.4 g/dL 09/07/2015 Comp Metabolic Yny487 A/G Ratio 1.9 Ratio 09/07/2015 Comp Metabolic Aty760 Osmo 284 mOsmo 09/07/2015 Bili D Ord93 BILI D 0.1 mg/dL 09/07/2015 Bili D Ord93 BILI I 0.2 mg/dL 09/07/2015 Lipid Ord30 CHOL 243 mg/dL 09/07/2015 Lipid Ord30 HDL 75.0 mg/dl 09/07/2015 Lipid Ord30 TRIG 161 mg/dL 09/07/2015 Lipid Ord30 LDL 136 mg/dL 09/07/2015 Lipid Ord30 C/HDL 3.2 Ratio 09/07/2015 Tsh Ord6 hTSH II 2.53 uIU/mL 06/13/2015 Comp Metabolic Ltg226 NA 138 mEq/L 06/13/2015 Comp Metabolic Eau171 K 4.0 mEq/L 06/13/2015 Comp Metabolic Tyh685 CL 104 mEq/L 06/13/2015 Comp Metabolic Nci242 CO2 26.0 mEq/L 06/13/2015 Comp Metabolic Zmg320 ANION GAP 12 06/13/2015 Comp Metabolic Gxj805 GLUCOSE 86 mg/dL 06/13/2015 Comp Metabolic Owl093 Creat 0.9 mg/dL 06/13/2015 Comp Metabolic Nex469 eGFR 71 ml/min/1.73m2 06/13/2015 Comp Metabolic Jih550 BUN 18 mg/dL 06/13/2015 Comp Metabolic Zln752 B/C Ratio 20.5 Ratio 06/13/2015 Comp Metabolic Rnr416 CALCIUM 10.1 mg/dL 06/13/2015 Comp Metabolic Dsv137 ALK PHOS 52 U/L 06/13/2015 Comp Metabolic Ych557 AST(SGOT) 18 U/L 06/13/2015 Comp Metabolic Ixp264 ALT(SGPT) 21 U/L 06/13/2015 Comp Metabolic Aar205 BILI T 0.3 mg/dL 06/13/2015 Comp Metabolic Tki866 ALBUMIN 4.7 g/dL 06/13/2015 Comp Metabolic Iqc104 TPRO 6.9 g/dL 06/13/2015 Comp Metabolic Aac360 GLOB 2.2 g/dL 06/13/2015 Comp Metabolic Qpz550 A/G Ratio 2.1 Ratio 06/13/2015 Comp Metabolic Spf390 Osmo 277 mOsmo 06/13/2015 %Hba1C Siu578 % HbA1c 81655-5 5.7 % 06/13/2015 %Hba1C Tos547 Gluc Ave 117 mg/dL 06/13/2015 Cbc With [...] 14.7 % 06/13/2015 Vitamin D 25 Oh Bpe0913 VITAMIN D, 25 HYDROXY 41.85 ng/mL Cbc [...] Ord2 RDW 14.5 % 04/18/2015 Comp Metabolic Qjv802 NA 137 mEq/L 04/18/2015 Comp Metabolic Aae190 K 4.0 mEq/L 04/18/2015 Comp Metabolic Asr304 CL 105 mEq/L 04/18/2015 Comp Metabolic Fbc083 CO2 23.0 mEq/L 04/18/2015 Comp Metabolic Nkc394 ANION GAP 13 04/18/2015 Comp Metabolic Uck637 GLUCOSE 73 mg/dL 04/18/2015 Comp Metabolic Goh356 Creat 0.9 mg/dL 04/18/2015 Comp Metabolic Qlx152 eGFR 72 ml/min/1.73m2 04/18/2015 Comp Metabolic Bim324 BUN 17 mg/dL 04/18/2015 Comp Metabolic Npd925 B/C Ratio 19.5 Ratio 04/18/2015 Comp Metabolic Zhk950 CALCIUM 9.7 mg/dL 04/18/2015 Comp Metabolic Zcl457 ALK PHOS 55 U/L 04/18/2015 Comp Metabolic Jai889 AST(SGOT) 28 U/L 04/18/2015 Comp Metabolic Gxt752 ALT(SGPT) 27 U/L 04/18/2015 Comp Metabolic Vqu633 BILI T 0.3 mg/dL 04/18/2015 Comp Metabolic Kap747 ALBUMIN 4.5 g/dL 04/18/2015 Comp Metabolic Cei740 TPRO 7.0 g/dL 04/18/2015 Comp Metabolic Hhb574 GLOB 2.5 g/dL 04/18/2015 Comp Metabolic Gcq649 A/G Ratio 1.8 Ratio 04/18/2015 Comp Metabolic Pbr140 Osmo 274 mOsmo 04/18/2015 Cbc With Differential [...] Ord2 RDW 15.0 % 03/22/2015 Comp Metabolic Xsm650 NA 136 mEq/L 03/22/2015 Comp Metabolic Jbz573 K 4.1 mEq/L 03/22/2015 Comp Metabolic Zle407 CL 102 mEq/L 03/22/2015 Comp Metabolic Bln055 CO2 26.0 mEq/L 03/22/2015 Comp Metabolic Hsy106 ANION GAP 12 03/22/2015 Comp Metabolic Yvq541 GLUCOSE 82 mg/dL 03/22/2015 Comp Metabolic Jup077 Creat 0.9 mg/dL 03/22/2015 Comp Metabolic Tfe503 eGFR 69 ml/min/1.73m2 03/22/2015 Comp Metabolic Irp684 BUN 30 mg/dL 03/22/2015 Comp Metabolic Yvp290 B/C Ratio 33.3 Ratio 03/22/2015 Comp Metabolic Bvl063 CALCIUM 10.3 mg/dL 03/22/2015 Comp Metabolic Kkt400 ALK PHOS 56 U/L 03/22/2015 Comp Metabolic Zfi953 AST(SGOT) 17 U/L 03/22/2015 Comp Metabolic Zie268 ALT(SGPT) 17 U/L 03/22/2015 Comp Metabolic Uzo998 BILI T 0.3 mg/dL 03/22/2015 Comp Metabolic Ove927 ALBUMIN 4.7 g/dL 03/22/2015 Comp Metabolic Mpy771 TPRO 7.2 g/dL 03/22/2015 Comp Metabolic Pvr466 GLOB 2.5 g/dL 03/22/2015 Comp Metabolic Mmx275 A/G Ratio 1.9 Ratio 03/22/2015 Comp Metabolic Lch317 Osmo 277 mOsmo 03/22/2015 FREE T4 2681561 FREE T4 1.24 NG/DL 10/18/2014 CHEM 14 4978458 AST 14 U/L 10/15/2014 CHEM 14 2845276 ALT 15 IU/L 10/15/2014 CHEM 14 2017091 BUN 23 MG/DL 10/15/2014 CHEM 14 20280313 ALBUMIN 4.8 GM/DL 10/15/2014 CHEM 14 2295361 CHLORIDE 105 MMOL/L 10/15/2014 CHEM 14 2277091 BILI TOT 0.3 MG/DL 10/15/2014 CHEM 14 7254212 ALK PHOS 60 U/L 10/15/2014 CHEM 14 7408148 SODIUM 140 MMOL/L 10/15/2014 CHEM 14 1876539 CREATININE 0.89 MG/DL 10/15/2014 CHEM 14 1291723 CALCIUM 10.0 MG/DL 10/15/2014 CHEM 14 4970651 POTASSIUM 3.7 MMOL/L 10/15/2014 CHEM 14 6024604 PROT TOT 7.2 GM/DL 10/15/2014 CHEM 14 0228231 GLUCOSE 97 MG/DL 10/15/2014 CHEM 14 7399559 BICARB 25 MMOL/L 10/15/2014 CHEM 14 1476199 ANION GAP 10 MEQ/L 10/15/2014 CBC 6647240 WBC 6.7 10e9/L 10/15/2014 CBC 6947350 RBC 4.49 10e12/L 10/15/2014 CBC 5694117 HGB 13.4 g/dL 10/15/2014 CBC 0015784 HCT DET 40.2 % 10/15/2014 CBC 2278162 MCV 89.5 fL 10/15/2014 CBC 1220034 MCH 29.8 pg 10/15/2014 CBC 1474425 MCHC 33.3 g/dL 10/15/2014 CBC 0264575 PLT 311 10e9/L 10/15/2014 CBC 9834964 MPV 10.7 fL 10/15/2014 CBC 4937904 BESSY % 63.6 % 10/15/2014 CBC 2217731 LY % 26.7 % 10/15/2014 CBC 5796788 MON % 6.6 % 10/15/2014 CBC 6938945 EOS % 2.8 % 10/15/2014 CBC 9964775 BASO % 0.3 % 10/15/2014 CBC 3084159 RDW 13.4 % 10/15/2014 CBC 8543896 ABS BESSY 4.26 10e9/L 10/15/2014 CBC 8361071 ABS LYMPH 1.79 10e9/L 10/15/2014 CBC 4631328 ABS MONO 0.44 10e9/L 10/15/2014 CBC 8551045 ABS EOS 0.19 10e9/L 10/15/2014 CBC 5433360 ABS BASO 0.02 10e9/L 10/15/2014 CBC 6169386 RDW-SD 43.2 fL 10/15/2014 A1C HPLC 0159899 A1C HPLC 36849-8 5.7 % 10/15/2014 TSH 3369998 TSH 4.083 uIU/ML 10/15/2014 GFR CALC 3615727 GFR AA >60 ML/MIN 10/15/2014 GFR CALC 3424169 GFR NON-AA >60 ML/MIN 10/15/2014 VIT D TOTL 8389973 VIT D TOTL 36 NG/ML 10/15/2014 GFR CALC 3993888 GFR AA >60 ML/MIN 06/23/2014 GFR CALC 5834537 GFR NON-AA >60 ML/MIN 06/23/2014 CHEM 14 7621399 AST 21 U/L 06/23/2014 CHEM 14 9432358 ALT 24 IU/L 06/23/2014 CHEM 14 4267889 BUN 18 MG/DL 06/23/2014 CHEM 14 8557648 ALBUMIN 4.7 GM/DL 06/23/2014 CHEM 14 0356309 CHLORIDE 109 MMOL/L 06/23/2014 CHEM 14 4549397 BILI TOT 0.3 MG/DL 06/23/2014 CHEM 14 8925997 ALK PHOS 53 U/L 06/23/2014 CHEM 14 0292173 SODIUM 140 MMOL/L 06/23/2014 CHEM 14 9593485 CREATININE 0.86 MG/DL 06/23/2014 CHEM 14 6650571 CALCIUM 10.2 MG/DL 06/23/2014 CHEM 14 1937898 POTASSIUM 3.9 MMOL/L 06/23/2014 CHEM 14 6589134 PROT TOT 6.9 GM/DL 06/23/2014 CHEM 14 2060944 GLUCOSE 87 MG/DL 06/23/2014 CHEM 14 9051333 BICARB 24 MMOL/L 06/23/2014 CHEM 14 2903563 ANION GAP 7 MEQ/L 06/23/2014 TSH 1595626 TSH 1.417 uIU/ML 06/23/2014 FREE T4 1310931 FREE T4 1.21 NG/DL 06/23/2014 TSH 2962922 TSH 3.399 uIU/ML 12/16/2013 CBC 8109861 WBC 6.4 10e9/L 12/15/2013 CBC 1241249 RBC 4.34 10e12/L 12/15/2013 CBC 0914631 HGB 12.9 g/dL 12/15/2013 CBC 1080369 HCT DET 39.3 % 12/15/2013 CBC 1677579 MCV 90.6 fL 12/15/2013 CBC 5791485 MCH 29.7 pg 12/15/2013 CBC 5302677 MCHC 32.8 g/dL 12/15/2013 CBC 8458129 PLT 292 10e9/L 12/15/2013 CBC 9454866 MPV 10.8 fL 12/15/2013 CBC 3840168 BESSY % 63.6 % 12/15/2013 CBC 0587287 LY % 25.7 % 12/15/2013 CBC 5136305 MON % 7.1 % 12/15/2013 CBC 4619688 EOS % 3.3 % 12/15/2013 CBC 7253193 BASO % 0.3 % 12/15/2013 CBC 6335237 RDW 13.4 % 12/15/2013 CBC 7904534 ABS BESSY 4.07 10e9/L 12/15/2013 CBC 0834776 ABS LYMPH 1.64 10e9/L 12/15/2013 CBC 8450817 ABS MONO 0.45 10e9/L 12/15/2013 CBC 6535090 ABS EOS 0.21 10e9/L 12/15/2013 CBC 1487357 ABS BASO 0.02 10e9/L 12/15/2013 CBC 3162983 RDW-SD 43.5 fL 12/15/2013 CHEM 14 9734800 AST 19 U/L 12/15/2013 CHEM 14 6123082 ALT 23 IU/L 12/15/2013 CHEM 14 3937044 BUN 23 MG/DL 12/15/2013 CHEM 14 6807217 ALBUMIN 4.7 GM/DL 12/15/2013 CHEM 14 8490655 CHLORIDE 108 MMOL/L 12/15/2013 CHEM 14 3005028 BILI TOT 0.3 MG/DL 12/15/2013 CHEM 14 5689688 ALK PHOS 58 U/L 12/15/2013 CHEM 14 0107612 SODIUM 139 MMOL/L 12/15/2013 CHEM 14 8305297 CREATININE 0.92 MG/DL 12/15/2013 CHEM 14 8369067 CALCIUM 10.0 MG/DL 12/15/2013 CHEM 14 0738958 POTASSIUM 4.0 MMOL/L 12/15/2013 CHEM 14 7709436 PROT TOT 7.1 GM/DL 12/15/2013 CHEM 14 3661642 GLUCOSE 82 MG/DL 12/15/2013 CHEM 14 2775461 BICARB 24 MMOL/L 12/15/2013 CHEM 14 0633952 ANION GAP 7 MEQ/L 12/15/2013 GFR CALC 3985604 GFR AA >60 ML/MIN 12/15/2013 GFR CALC GFR NON-AA >60 ML/MIN 12/15/2013 URINALYSIS NONAUTO W/O SCOPE 44360 Specific [place] 1.025 DateTime(Free Text in Aprima) URINALYSIS NONAUTO W/O SCOPE 57186 PH 5 DateTime(Free Text in Aprima) URINALYSIS NONAUTO W/O SCOPE 71756 GLUCOSE neg DateTime( Free Text in Aprima) URINALYSIS NONAUTO W/O SCOPE 41390 Protein neg DateTime( Free Text in Aprima) URINALYSIS NONAUTO W/O SCOPE 05183 Blood neg DateTime(Free Text in Aprima) URINALYSIS NONAUTO W/O SCOPE 86370 Bilirubin neg DateTime(Free Text in Aprima) URINALYSIS NONAUTO W/O SCOPE 82305 Ketones neg DateTime( Free Text in Aprima) URINALYSIS NONAUTO W/O SCOPE 61449 Urobilinogen neg DateTime(Free Text in Aprima) URINALYSIS NONAUTO W/O SCOPE 98465 Nitrite neg DateTime( Free Text in Aprima) URINALYSIS NONAUTO W/O SCOPE 58033 Leukocytes neg DateTime(Free Text in Apr) Review [...] vein procedure that will be perform in [place] in May. Full Exam - General 1994 [...] Procedure Codes Date IMMUNIZATION ADMIN CPT -4: 33734 06/05/2018 FLU VAC NO PRSV 4 ZONIA 3 YRS+ CPT-4: 77977 06/05/2018 IMMUNIZATION ADMIN CPT -4: 34326 06/19/2017 FLU VAC NO PRSV 4 ZONIA 3 YRS+ CPT-4: 97316 06/19/2017 URINALYSIS NONAUTO W/O SCOPE CPT-4: 65976 09/08/2015 IMMUNIZATION ADMIN CPT -4: 58477 03/30/2015 ADACEL TDAP VACCINE 7 YRS/> IM CPT-4: 95737 03/30/2015 URINALYSIS NONAUTO W/O SCOPE CPT-4: 54112 03/22/2015 THER/PROPH/DIAG INJ SC/IM CPT-4: 29172 11/11/2014 ROCEPHIN, PER 250 MG CPT-4: J0696 11/11/2014 ROUTINE VENIPUNCTURE CPT-4: 91971 10/15/2014 HgbA1c CPT-4: 78157 10/15/2014 CBC (COMPLETE CBC W/AUTO DIFF WBC) CPT-4: 20168 10/15/2014 CHEM 14 (COMPREHEN METABOLIC PANEL) CPT-4: 10437 10/15/2014 TSH (ASSAY THYROID STIM HORMONE) CPT-4: 62549 10/15/2014 VIT D TOTL (VITAMIN D 25 HYDROXY) CPT-4: 49310 10/15/2014 FREE T4 (ASSAY OF FREE THYROXINE) CPT-4: 69816 10/15/2014 ROUTINE VENIPUNCTURE CPT-4: 83952 06/23/2014 CHEM 14 (COMPREHEN METABOLIC PANEL) CPT-4: 77744 06/23/2014 TSH (ASSAY THYROID STIM HORMONE) CPT-4: 04882 06/23/2014 FREE T4 (ASSAY OF FREE THYROXINE) CPT-4: 06973 06/23/2014 URINALYSIS NONAUTO W/O SCOPE CPT-4: 86536 12/15/2013 ROUTINE VENIPUNCTURE CPT-4: 97922 12/15/2013 THER/PROPH/DIAG INJ SC/IM CPT-4: 37122 11/03/2012 VITAMIN B12 INJECTION CPT-4: J3420 11/03/2012 THER/PROPH/DIAG INJ SC/IM CPT-4: 02748 10/20/2012 VITAMIN B12 INJECTION CPT-4: J3420 10/20/2012 VITAMIN B12 INJECTION CPT-4: J3420 09/11/2012 THER/PROPH/DIAG INJ SC/IM CPT-4: 23778 09/11/2012 THER/PROPH/DIAG INJ SC/IM CPT-4: 28336 08/11/2012 VITAMIN B12 INJECTION CPT-4: J3420 08/11/2012 THER/PROPH/DIAG INJ SC/IM CPT-4: 91967 07/21/2012 VITAMIN B12 INJECTION CPT-4: J3420 07/21/2012 Vital Signs Date Vital 12/11/2018 Blood Pressure 1: 110/76 Code : 8480-6 BMI: 32.8 Code : 42057-7 Heart Rate 1 : 69 bpm Height: 5'6" SpO2: 99% Temperature: 37.1 (C) / 98.7 (F) Weight: 203 lbs 11/18/2018 Blood Pressure 1: 136/82 Code : 8480-6 BMI: 33.1 Code : 78049-1 Heart Rate 1 : 75 bpm Height: 5'6" SpO2: 98% Temperature: 36.4 (C) / 97.5 (F) Weight: 205 lbs 10/02/2018 Blood Pressure 1: 128/78 Code : 8480-6 BMI: 32.0 Code : 34026-9 Heart Rate 1 : 73 bpm Height: 5'6" SpO2: 98% Weight: 198 lbs 08/06/2018 Blood Pressure 1: 116/78 Code : 8480-6 BMI: 32.3 Code : 29607-0 Heart Rate 1 : 71 bpm Height: 5'6" SpO2: 98% Weight: 200 lbs 07/08/2018 Blood Pressure 1: 128/70 Code : 8480-6 BMI: 32.4 Code : 24767-3 Heart Rate 1 : 76 bpm Height: 5'6" SpO2: 96% Weight: 201 lbs 02/11/2018 Blood Pressure 1: 122/84 Code : 8480-6 BMI: 32.4 Code : 64940-4 Heart Rate 1 : 71 bpm Height: 5'6" SpO2: 97% Weight: 201 lbs 11/12/2017 Blood Pressure 1: 130/82 Code : 8480-6 BMI: 32.3 Code : 07157-5 Height: 5'6" Weight: 200 lbs 08/20/2017 Blood Pressure 1: 126/78 Code : 8480-6 BMI: 32.3 Code : 29256-3 Heart Rate 1 : 66 bpm Height: 5'6" SpO2: 98% Weight: 200 lbs 06/24/2017 Blood Pressure 1: 134/78 Code : 8480-6 BMI: 34.2 Code : 39020-2 Heart Rate 1 : 71 bpm Height: 5'6" SpO2: 95% Weight: 212 lbs 05/22/2017 Blood Pressure 1: 122/78 Code : 8480-6 BMI: 33.9 Code : 42659-2 Heart Rate 1 : 76 bpm Height: 5'6" SpO2: 97% Weight: 210 lbs 05/10/2017 Blood Pressure 1: 130/84 Code : 8480-6 BMI: 34.1 Code : 93379-8 Heart Rate 1 : 90 bpm Height: 5'6" SpO2: 98% Temperature: 36.9 (C) / 98.5 (F) Weight: 211 lbs 04/08/2017 Blood Pressure 1: 132/78 Code : 8480-6 BMI: 34.4 Code : 21541-1 Heart Rate 1 : 72 bpm Height: 5'6" SpO2: 97% Weight: 213 lbs 02/20/2017 Blood Pressure 1: 130/90 Code : 8480-6 BMI: 33.9 Code : 89181-3 Heart Rate 1 : 74 bpm Height: 5'6" SpO2: 98% Weight: 210 lbs 11/21/2016 Blood Pressure 1: 132/74 Code : 8480-6 BMI: 34.2 Code : 49221-0 Heart Rate 1 : 66 bpm Height: 5'6" SpO2: 97% Weight: 212 lbs 08/29/2016 Blood Pressure 1: 136/82 Code : 8480-6 BMI: 33.7 Code : 34466-0 Heart Rate 1 : 70 bpm Height: 5'6" Respiratory Rate: 18 bpm SpO2: 98% Weight: 209 lbs 07/05/2016 Blood Pressure 1: 142/76 Code : 8480-6 BMI: 33.2 Code : 10745-2 Heart Rate 1 : 73 bpm Height: 5'6" SpO2: 98% Weight: 206 lbs 06/11/2016 Blood Pressure 1: 130/82 Code : 8480-6 BMI: 33.4 Code : 33768-8 Heart Rate 1 : 76 bpm Height: 5'6" SpO2: 97% Weight: 207 lbs 06/04/2016 Blood Pressure 1: 134/80 Code : 8480-6 BMI: 33.4 Code : 69602-2 Heart Rate 1 : 71 bpm Height: 5'6" SpO2: 98% Weight: 207 lbs 04/10/2016 Blood Pressure 1: 124/80 Code : 8480-6 BMI: 34.4 Code : 30165-7 Heart Rate 1 : 76 bpm Height: 5'6" SpO2: 96% Weight: 213 lbs 03/26/2016 Blood Pressure 1: 118/74 Code : 8480-6 BMI: 34.4 Code : 56436-8 Heart Rate 1 : 72 bpm Height: 5'6" SpO2: 98% Weight: 213 lbs 01/23/2016 Blood Pressure 1: 134/76 Code : 8480-6 BMI: 33.7 Code : 41220-8 Heart Rate 1 : 76 bpm Height: 5'6" SpO2: 97% Weight: 209 lbs 12/26/2015 Blood Pressure 1: 116/76 Code : 8480-6 BMI: 33.4 Code : 47817-2 Heart Rate 1 : 78 bpm Height: 5'6" SpO2: 98% Weight: 207 lbs 11/02/2015 Blood Pressure 1: 118/80 Code : 8480-6 BMI: 33.6 Code : 92797-9 Heart Rate 1 : 75 bpm Height: 5'6" SpO2: 95% Weight: 208 lbs 09/13/2015 Blood Pressure 1: 140/82 Code : 8480-6 BMI: 33.6 Code : 61024-8 Heart Rate 1 : 92 bpm Height: 5'6" SpO2: 96% Weight: 208 lbs 09/07/2015 Blood Pressure 1: 140/82 Code : 8480-6 BMI: 33.4 Code : 75308-8 Heart Rate 1 : 85 bpm Height: 5'6" SpO2: 95% Weight: 207 lbs 08/16/2015 Blood Pressure 1: 138/84 Code : 8480-6 BMI: 32.9 Code : 51610-7 Heart Rate 1 : 87 bpm Height: 5'6" SpO2: 97% Weight: 204 lbs 06/13/2015 Blood Pressure 1: 130/82 Code : 8480-6 BMI: 33.1 Code : 94562-7 Heart Rate 1 : 84 bpm Height: 5'6" SpO2: 96% Weight: 205 lbs 05/10/2015 Blood Pressure 1: 118/70 Code : 8480-6 BMI: 32.9 Code : 90907-5 Heart Rate 1 : 77 bpm Height: 5'6" SpO2: 97% Weight: 204 lbs 03/22/2015 Blood Pressure 1: 118/76 Code : 8480-6 BMI: 32.0 Code : 40579-7 Heart Rate 1 : 88 bpm Height: 5'6" Temperature: 36.2 (C) / 97.2 (F) Weight: 198 lbs 01/17/2015 Blood Pressure 1: 120/80 Code : 8480-6 BMI: 32.6 Code : 25103-6 Heart Rate 1 : 88 bpm Height: 5'6" Weight: 202 lbs 11/22/2014 Blood Pressure 1: 118/82 Code : 8480-6 BMI: 31.8 Code : 08464-6 Heart Rate 1 : 72 bpm Height: 5'6" Weight: 197 lbs 10/27/2014 Blood Pressure 1: 130/82 Code : 8480-6 BMI: 32.0 Code : 46142-3 Heart Rate 1 : 86 bpm Height: 5'6" SpO2: 97% Weight: 198 lbs 10/15/2014 Blood Pressure 1: 11882 Code : 8480-6 BMI: 32.1 Code : 94790-8 Heart Rate 1 : 100 bpm Height: 5'6" Weight: 199 lbs 09/30/2014 Blood Pressure 1: 118/86 Code : 8480-6 BMI: 32.0 Code : 96661-7 Heart Rate 1 : 80 bpm Height: 5'6" Temperature: 35.7 (C) / 96.3 (F) Weight: 198 lbs 07/14/2014 Blood Pressure 1: 116/80 Code : 8480-6 BMI: 32.9 Code : 30860-6 Heart Rate 1 : 80 bpm Height: 5'6" Weight: 204 lbs 06/23/2014 Blood Pressure 1: 128/88 Code : 8480-6 BMI: 33.7 Code : 47472-6 Height: 5'6" Weight: 209 lbs 04/09/2014 Blood Pressure 1: 138/82 Code : 8480-6 Heart Rate 1: 90 bpm SpO2: 97% Temperature: 35.8 (C) / 96.5 (F) Weight: 210 lbs 03/16/2014 Blood Pressure 1: 116/80 Code : 8480-6 BMI: 34.1 Code : 56456-3 Heart Rate 1 : 88 bpm Height: 5'6" Weight: 211 lbs 01/12/2014 Blood Pressure 1: 124/70 Code : 8480-6 BMI: 33.4 Code : 11489-5 Heart Rate 1 : 76 bpm Height: 5'6" Weight: 207 lbs 12/15/2013 Blood Pressure 1: 144/100 Code: 8480-6 Blood Pressure 2: 124/90 Code: 8480-6 Heart Rate 1: 72 bpm Weight: 215 lbs 10/20/2013 Blood Pressure 1: 130/84 Code : 8480-6 BMI: 34.5 Code : 02957-3 Heart Rate 1 : 84 bpm Height: 5'6" Weight: 214 lbs 09/15/2013 Blood Pressure 1: 128/90 Code : 8480-6 BMI: 34.9 Code : 86227-0 Heart Rate 1 : 88 bpm Height: 5'6" Temperature: 36.5 (C) / 97.7 (F) Weight: 216 lbs 07/27/2013 Blood Pressure 1: 138/90 Code : 8480-6 BMI: 34.4 Code : 60896-6 Heart Rate 1 : 88 bpm Height: 5'6" Weight: 213 lbs 06/09/2013 Blood Pressure 1: 138/92 Code : 8480-6 Heart Rate 1: 88 bpm Weight: 04/20/2013 Blood Pressure 1: 142/92 Code : 8480-6 BMI: 34.4 Code : 79648-2 Heart Rate 1 : 88 bpm Height: 5'6" Weight: 213 lbs 03/23/2013 Blood Pressure 1: 116/84 Code : 8480-6 BMI: 34.1 Code : 63839-5 Heart Rate 1 : 76 bpm Height: 5'6" Weight: 211 lbs 01/21/2013 Blood Pressure 1: 130/88 Code : 8480-6 BMI: 34.5 Code : 87488-5 Heart Rate 1 : 80 bpm Height: 5'6" Weight: 214 lbs 12/25/2012 Blood Pressure 1: 112/70 Code : 8480-6 Heart Rate 1: 84 bpm Respiratory Rate : 20 bpm Weight: 214 lbs 8 oz 10/20/2012 Blood Pressure 1: 124/80 Code : 8480-6 BMI: 34.4 Code : 18790-2 Heart Rate 1 : 84 bpm Height: 5'6" Temperature: 36.7 (C) / 98.0 (F) Weight: 213 lbs 08/11/2012 Blood Pressure 1: 116/80 Code : 8480-6 BMI: 33.9 Code : 63260-2 Heart Rate 1 : 76 bpm Height: 5'6" Respiratory Rate: 20 bpm Weight: 210 lbs 07/10/2012 Blood Pressure 1: 110/76 Code : 8480-6 BMI: 46.5 Code : 03531-9 Heart Rate 1 : 84 bpm Height: [...] - she had meniscal surgery with Dr. Canlaes and has healed up a lot since [...] of Symptom _ weeks ago 09/30/2014 around [place] neck pain Location in the lower cervical/ [...] data Encounters Encounter Performer Location Codes Date ([id number]) 99642 EST. PATIENT, LEVEL IV Diagnosis: Epigastric pain[ICD10: R10.13] Diagnosis: Gastro-esophageal reflux disease without esophagitis[ICD10: K21.9] Diagnosis: Diarrhea, unspecified[ICD10: R19.7] Mira Ledesma MD, [facility] CPT-4: 49684 12/11/2018 ([id number]) 68541 EST. PATIENT, LEVEL IV Diagnosis: Generalized abdominal pain[ICD10: R10.84] Diagnosis: Diarrhea, unspecified[ICD10: R19.7] Mira Ledesma MD, [facility] CPT-4: 01911 11/18/2018 ([id number]) 75385 EST. PATIENT, LEVEL IV Diagnosis: Essential (primary) hypertension[ICD10: I10] Diagnosis: Functional diarrhea[ICD10: K59.1] Diagnosis: Generalized anxiety disorder[ICD10: F41.1] Diagnosis: Major depressive disorder, recurrent, moderate[ICD10: F33.1] Caty Ledesma MD, [facility] CPT-4: 20508 10/02/2018 ([id number]) 79406 EST. PATIENT, LEVEL IV Diagnosis: Essential (primary) hypertension[ICD10: I10] Diagnosis: Generalized anxiety disorder[ICD10: F41.1] Diagnosis: Slow transit constipation[ICD10: K59.01] Diagnosis: Other fatigue[ICD10: R53.83] Diagnosis: Nontoxic multinodular goiter[ICD10: E04.2] Caty Ledesma MD, [facility] CPT-4: 80006 08/06/2018 ([id number]) 10421 EST. PATIENT, LEVEL IV Diagnosis: Essential (primary) hypertension[ICD10: I10] Diagnosis: Major depressive disorder, recurrent, moderate[ICD10: F33.1] Diagnosis: Generalized anxiety disorder[ICD10: F41.1] Caty Ledesma MD, [facility] CPT-4: 64336 07/08/2018 ([id number]) 51444 EST. PATIENT, LEVEL IV Diagnosis: Nontoxic multinodular goiter[ICD10: E04.2] Diagnosis: Mixed hyperlipidemia[ICD10: E78.2] Diagnosis: Essential (primary) hypertension[ICD10: I10] Caty Ledesma MD, [facility] CPT-4: 55513 02/11/2018 ([id number]) 00097 EST. PATIENT, LEVEL IV Diagnosis: Nontoxic multinodular goiter[ICD10: E04.2] Diagnosis: Essential (primary) hypertension[ICD10: I10] Diagnosis: Other fatigue[ICD10: R53.83] Caty Ledesma MD, [facility] CPT- 4: 47583 11/12/2017 ([id number]) 96523 EST. PATIENT, LEVEL IV Diagnosis: Nontoxic multinodular goiter[ICD10: E04.2] Diagnosis: Major depressive disorder, recurrent, moderate[ICD10: F33.1] Diagnosis: Generalized anxiety disorder[ICD10: F41.1] Diagnosis: Essential (primary) hypertension[ICD10: I10] Caty Ledesma MD, [facility] CPT-4: 62723 08/20/2017 ([id number]) 82811 EST. PATIENT, LEVEL III Diagnosis: Acute recurrent maxillary sinusitis[ICD10: J01.01] Diagnosis: Encounter for other preprocedural examination[ICD10: Z01.818] Mira Ledesma MD, [facility] CPT-4: 06833 06/24/2017 ([id number]) 64920 EST. PATIENT, LEVEL IV Diagnosis: Acute recurrent frontal sinusitis[ICD10: J01.11] Diagnosis: Type 2 diabetes mellitus without complications[ICD10: E11.9] Diagnosis: Essential (primary) hypertension[ICD10: I10] Caty Ledesma MD, [facility] CPT-4: 28507 05/22/2017 ([id number]) 12995 EST. PATIENT, LEVEL III Diagnosis: Acute recurrent maxillary sinusitis[ICD10: J01.01] Diagnosis: Cough[ICD10: R05] Mira Ledesma MD, [facility] CPT-4: 07070 05/10/2017 ([id number]) 55816 EST. PATIENT, LEVEL IV Diagnosis: Generalized anxiety disorder[ICD10: F41.1] Diagnosis: Muscle weakness (generalized)[ICD10: M62.81] Diagnosis: Somnolence[ICD10: R40.0] Diagnosis: Snoring[ICD10: R06.83] Caty Ledesma MD, [facility] CPT-4: 14185 04/08/2017 ([id number]) 68235 EST. PATIENT, LEVEL IV Diagnosis: Vitamin deficiency, unspecified[ICD10: E56.9] Diagnosis: Major depressive disorder, recurrent, moderate[ICD10: F33.1] Diagnosis: Generalized anxiety disorder[ICD10: F41.1] Diagnosis: Impaired fasting glucose[ICD10: R73.01] Diagnosis: Chronic migraine without aura, not intractable, without status migrainosus[ICD10: G43.709] Diagnosis: Essential (primary) hypertension[ICD10: I10] Diagnosis: Mixed hyperlipidemia[ICD10: E78.2] Diagnosis: Nontoxic multinodular goiter[ICD10: E04.2] Caty Ledesma MD, [facility] CPT-4: 62669 02/20/2017 ([id number]) 97699 EST. PATIENT, LEVEL IV Diagnosis: Generalized anxiety disorder[ICD10: F41.1] Diagnosis: Major depressive disorder, recurrent, moderate[ICD10: F33.1] Diagnosis: Chronic pain syndrome[ICD10: G89.4] Diagnosis: Other specified polyneuropathies[ICD10: G62.89] Diagnosis: Muscle weakness (generalized)[ICD10: M62.81] Diagnosis: Essential (primary) hypertension[ICD10: I10] Caty Ledesma MD, [facility] CPT-4: 37887 11/21/2016 ([id number]) 84741 EST. PATIENT, LEVEL III Diagnosis: Generalized abdominal pain[ICD10: R10.84] Diagnosis: Essential (primary) hypertension[ICD10: I10] Caty Ledesma MD, [facility] CPT-4: 47216 08/29/2016 ([id number]) 83234 EST. PATIENT, LEVEL III Diagnosis: Epigastric pain[ICD10: R10.13] Caty Ledesma MD, [facility] CPT- 4: 14155 07/05/2016 ([id number]) 46698 EST. PATIENT, LEVEL III Diagnosis: Toxic gastroenteritis and colitis[ICD10: K52.1] Caty Ledesma MD, [facility] CPT-4: 23577 06/11/2016 30174 EST. PATIENT, LEVEL III Diagnosis: Left upper quadrant pain[ICD10: R10.12] Estrella Ledesma MD, [facility] CPT-4: 07601 06/04/2016 ([id number]) 29076 EST. PATIENT, LEVEL III Diagnosis: Cellulitis of left toe[ICD10: L03.032] Mira Ledesma MD, [facility] CPT-4: 26630 04/10/2016 ([id number]) 66678 EST. PATIENT, LEVEL III Diagnosis: Essential (primary) hypertension[ICD10: I10] Diagnosis: Chronic pain syndrome[ICD10: G89.4] Diagnosis: Other fatigue[ICD10: R53.83] Caty Ledesma MD [facility] CPT- 4: 12749 03/26/2016 ([id number]) 44072 EST. PATIENT, LEVEL III Diagnosis: Gastro-esophageal reflux disease without esophagitis[ICD10: K21.9] Caty Ledesma MD [facility] CPT-4: 73203 01/23/2016 ([id number]) 84838 EST. PATIENT, LEVEL IV Diagnosis: Type 2 diabetes mellitus without complications[ICD10: E11.9] Diagnosis: Gastro-esophageal reflux disease without esophagitis[ICD10: K21.9] Diagnosis: Functional diarrhea[ICD10: K59.1] Caty Ledesma MD [facility] CPT-4: 11008 12/26/2015 92519 EST. PATIENT, LEVEL IV Diagnosis: Other seasonal allergic rhinitis[ICD10: J30.2] Diagnosis: Acute recurrent maxillary sinusitis[ICD10: J01.01] Diagnosis: Cough[ICD10: R05] Estrella Ledesma MD, [facility] CPT-4: 80830 11/02/2015 08801 EST. PATIENT, LEVEL III Diagnosis: Acute recurrent maxillary sinusitis[ICD10: J01.01] Diagnosis: Urgency of urination[ICD10: R39.15] Diagnosis: Cough[ICD10: R05] Diagnosis: Acute laryngopharyngitis[ICD10: J06.0] Estrella Leedsma MD [facility] CPT-4: 45423 09/13/2015 21514 EST. PATIENT, LEVEL IV Diagnosis: Pain in left lower leg[ICD10: M79.662] Diagnosis: Cramp and spasm[ICD10: R25.2] Diagnosis: Acute nasopharyngitis [common cold][ICD10: J00] Estrella Ledesma MD, [facility] CPT-4: 78304 09/07/2015 ([id number]) 38516 EST. PATIENT, LEVEL IV Diagnosis: Essential (primary) hypertension[ICD10: I10] Diagnosis: Type 2 diabetes mellitus without complications[ICD10: E11.9] Diagnosis: Varicose veins of unspecified lower extremities with other complications[ICD10: I83.899] Caty Ledesma MD, [facility] CPT-4: 91018 08/16/2015 ([id number]) 57757 EST. PATIENT, LEVEL IV Diagnosis: Type 2 diabetes mellitus without complications[ICD10: E11.9] Diagnosis: Other mixed anxiety disorders[ICD10: F41.3] Diagnosis: Vitamin deficiency, unspecified[ICD10: E56.9] Diagnosis: Essential (primary) hypertension[ICD10: I10] Caty Ledesma MD [facility] CPT-4: 26965 06/13/2015 ([id number]) 94451 EST. PATIENT, LEVEL IV Diagnosis: ESSENTIAL HYPERTENSION[ICD9: 401.9] Diagnosis: CHRONIC PAIN SYNDROME[ICD9: 338.4] Caty Ledesma MD [facility] CPT-4: 50465 05/10/2015 ([id number]) 14931 EST. PATIENT, LEVEL III Diagnosis: Back pain[ICD9: 724.5] Diagnosis: URINARY FREQUENCY[ICD9: 788.41] Caty Ledesma MD [facility] CPT- 4: 09886 03/22/2015 ([id number]) 19327 EST. PATIENT, LEVEL IV Diagnosis: ESSENTIAL HYPERTENSION[ICD9: 401.9] Diagnosis: DIABETES TYPE II[ICD9: 250.00] Diagnosis: Varicose vein[ICD9: 454.9] Caty Ledesma MD [facility] CPT- 4: 30993 01/17/2015 ([id number]) 60215 EST. PATIENT, LEVEL IV Diagnosis: HEADACHE[ICD9: 784.0] Diagnosis: Neck pain[ICD9: 723.1] Diagnosis: Vision changes[ICD9: 368.9] Diagnosis: Nausea[ICD9: 787.02] Mira Ledesma MD, [facility] CPT-4: 89051 11/22/2014 ([id number]) 54412 EST. PATIENT, LEVEL I Diagnosis: Meningitis exposure[ICD9: V01.89] Caty Ledesma MD [facility] CPT-4: 71196 11/11/2014 ([id number]) 78794 EST. PATIENT, LEVEL IV Diagnosis: Elevated blood sugar[ICD9: 790.29] Diagnosis: ESSENTIAL HYPERTENSION[ICD9: 401.9] Caty Ledesma MD [facility] CPT-4: 12123 10/27/2014 ([id number]) 14458 EST. PATIENT, LEVEL IV Diagnosis: Costochondritis[ICD9: 733.6] Diagnosis: ALLERGIC RHINITIS[ICD9: 477.9] Diagnosis: Vitamin D deficiency[ICD9: 268.9] Diagnosis: Elevated blood sugar[ICD9: 790.29] Mira Ledesma MD, [facility] CPT-4: 07017 10/15/2014 ([id number]) 17935 EST. PATIENT, LEVEL IV Diagnosis: ESSENTIAL HYPERTENSION[ICD9: 401.9] Diagnosis: Diarrhea[ICD9: 787.91] Caty Ledesma MD, [facility] CPT-4: 82446 09/30/2014 ([id number]) 86654 EST. PATIENT, LEVEL IV Diagnosis: Raynauds disease[ICD9: 443.0] Diagnosis: Nausea[ICD9: 787.02] Diagnosis: ESSENTIAL HYPERTENSION[ICD9: 401.9] Caty Ledesma MD, [facility] CPT-4: 15651 07/14/2014 ([id number]) 92301 EST. PATIENT, LEVEL IV Diagnosis: ESSENTIAL HYPERTENSION[ICD9: 401.9] Diagnosis: Esophageal reflux[ICD9: 530.81] Diagnosis: Hyponatremia[ICD9: 276.1] Diagnosis: OBESITY[ICD9: 278.00] Diagnosis: Chronic migraine[ICD9: 346.70] Caty Ledesma MD, [facility] CPT- 4: 47975 06/23/2014 ([id number]) 53245 EST. PATIENT, LEVEL IV Diagnosis: ESSENTIAL HYPERTENSION[ICD9: 401.9] Diagnosis: GERD (gastroesophageal reflux disease)[ICD9: 530.81] Diagnosis: Costochondritis[ICD9: 733.6] Mira Ledesma MD, [facility] CPT-4: 55724 04/09/2014 ([id number]) 25716 EST. PATIENT, LEVEL IV Diagnosis: ESSENTIAL HYPERTENSION[ICD9: 401.9] Diagnosis: RAYNAUD'S SYNDROME[ICD9: 443.0] Caty Ledesma MD, [facility] CPT- 4: 03237 03/16/2014 ([id number]) 91329 EST. PATIENT, LEVEL III Diagnosis: ESSENTIAL HYPERTENSION[SNOMED: 35215740] Diagnosis: ALLERGIC RHINITIS[ICD9: 477.9] Diagnosis: Knee pain[ICD9: 719.46] Caty Ledesma MD [facility] CPT-4: 67834 01/12/2014 ([id number]) 36308 EST. PATIENT, LEVEL IV Diagnosis: ALLERGIC RHINITIS[ICD9: 477.9] Diagnosis: ESSENTIAL HYPERTENSION[SNOMED: 60453201] Diagnosis: Fatigue[ICD9: 780.79] Caty Ledesma MD [facility] CPT-4: 97385 12/15/2013 ([id number]) 43507 EST. PATIENT, LEVEL III Diagnosis: ESSENTIAL HYPERTENSION[SNOMED: 43576122] Diagnosis: Skin lesion[ICD9: 709.9] Diagnosis: Raynauds disease[ICD9: 443.0] Caty Ledesma MD [facility] CPT- 4: 23256 10/20/2013 ([id number]) 63121 EST. PATIENT, LEVEL III Diagnosis: ACUTE SINUSITIS[ICD9: 461.9] Caty Ledesma MD [facility] CPT- 4: 51243 09/15/2013 ([id number]) 72134 EST. PATIENT, LEVEL IV Diagnosis: ESSENTIAL HYPERTENSION[SNOMED: 44719703] Diagnosis: Peripheral neuropathy[ICD9: 356.9] Diagnosis: Vitamin D deficiency[ICD9: 268.9] Diagnosis: Vitamin B12 deficiency[ICD9: 266.2] Caty Ledesma MD [facility] CPT-4: 94113 07/27/2013 ([id number]) 43364 EST. PATIENT, LEVEL III Diagnosis: ACUTE SINUSITIS[ICD9: 461.9] Diagnosis: COUGH[ICD9: 786.2] Mira Ledesma MD, [facility] CPT-4: 55848 06/09/2013 90666 EST. PATIENT, LEVEL IV Diagnosis: HEADACHE[ICD9: 784.0] Diagnosis: Dysphagia[ICD9: 787.20] Diagnosis: Esophageal reflux[ICD9: 530.81] Caty Ledesma MD [facility] CPT- 4: 16415 04/20/2013 ([id number]) 24234 EST. PATIENT, LEVEL IV Diagnosis: Seasonal allergic rhinitis[ICD9: 477.9] Diagnosis: HEADACHE[ICD9: 784.0] Diagnosis: ESSENTIAL HYPERTENSION[SNOMED: 25790850] Caty Ledesma MD, [facility] CPT-4: 65480 03/23/2013 ([id number] 34180 EST. PATIENT, LEVEL III Diagnosis: ABNORMALITY OF GAIT[ICD9: 781.2] Diagnosis: B-COMPLEX DEFIC NEC[ICD9: 266.2] Caty Ledesma MD, [facility] CPT-4: 10228 01/21/2013 ([id number]) 20700 EST. PATIENT, LEVEL IV Diagnosis: ESSENTIAL HYPERTENSION[SNOMED: 63338174] Diagnosis: Breast pain[ICD9: 611.71] Caty Ledesma MD, [facility] CPT-4: 53520 12/25/2012 ([id number]) 24409 EST. PATIENT, LEVEL III Diagnosis: ESSENTIAL HYPERTENSION[SNOMED: 77634880] Diagnosis: ACUTE URI[ICD9: 465.9] Caty Ledesma MD, [facility] CPT-4: 51298 10/20/2012 ([id number]) 15507 EST. PATIENT, LEVEL IV Diagnosis: B-COMPLEX DEFIC NEC[ICD9: 266.2] Diagnosis: ESSENTIAL HYPERTENSION[SNOMED: 92155381] Diagnosis: Gait instability[ICD9: 781.2] Diagnosis: Back pain[ICD9: 724.5] Caty Ledesma MD, [facility] CPT-4: 27088 08/11/2012 OFFICE VISIT, NEW - LEVEL 4 Diagnosis: ESSENTIAL HYPERTENSION[SNOMED: 93289065] Diagnosis: ACUTE SINUSITIS[ICD9: 461.9] Diagnosis: Gait instability[ICD9: 781.2] Diagnosis: Weakness of both legs[ICD9: 729.89] [facility] CPT-4: 92932 07/10/2012 Plan of Care Planned Activity Notes Codes Status Date Visit Plan: Epigastric pain -start zantac twice daily- refer to Dr Robison for evaluation Diarrhea-stool studies negative -CT abdomen negative for acute findings -rx for flagyl provided and instructed on use - increase questran to daily 12/11/2018 Patient Education: Patient Medication Summary Completed 12/11/2018 Care Plan: Referral Order SNOMED-CT : 902028920 Pending 12/11/2018 Visit Plan: Abdominal pain -diarrhea- - discussed need to stay away from milk products while acutely ill with diarrhea and nausea and emesis as it may worsen the symptoms. Liquids initially until the nausea improves, then recommend to advance to bland diet for 1 day, then advance as tolerated. Call if symptoms not improved. 11/18/2018 Appointment: Mira Valladares WPtel: [phone] [place] (15 min) Moderate 11/18/2018 Patient Education: Patient [...] current medications. 10/02/2018 Appointment: Caty Ledesma WPtel: [phone] [facility] [place] (15 min) Moderate 10/02/2018 Patient [...] pristiq 08/06/2018 Appointment: Caty Ledesma WPtel: [phone] [facility] [place] (15 min) Moderate 08/06/2018 Patient Education: Patient Medication Summary Completed 08/06/2018 Patient Education: Patient Medication Summary Completed 07/09/2018 Care Plan: SCREENINGMAMMOGRAPHYDIGITAL [facility] : 87466-9 Pending 07/09/2018 Visit Plan: Hypertension - well [...] 07/08/2018 [facility]ment[phone] [facility] [place] ([place]) Moderate 07/08/2018 Patient Education: Patient [...] to medications. 02/11/2018 Appointment: [facility] [phone] [facility] [place] (15 min) Moderate 02/11/2018 Patient Education: [...] daily. 11/12/2017 Appointment: Caty Ledesma WPtel: [phone] [facility] [place] (15 min) Moderate 11/12/2017 Patient Education: [...] well. 08/20/2017 Appointment: Caty Ledesma WPtel: [phone] [facility] [place] (15 min) Moderate 08/20/2017 Patient Education: [...] Dr Weaver 06/24/2017 Appointment: [facility] [phone] [phone] [place] (30 min) Complex 06/24/2017 Patient Education: Patient [...] less controlled. 05/22/2017 Appointment: [facility] [phone] [facility] (15 min) Moderate 05/22/2017 Patient Education: Patient Medication Summary Completed 05/22/2017 Visit Plan: Sinusitis - Pt has acute infection - pain in face, maxillary region, Pt informed to use decongestant, RX given to patient, sinus rinses also recommended. Call if symptoms do not show improvement. 05/10/2017 Appointment: Mira Valladares WPtel: [phone] [phone] [place] (15 min) Moderate 05/10/2017 Patient Education: Patient Medication Summary Completed 05/10/2017 Visit Plan: Fatigue - daytime - recommended sleep study, change pristiq to night-time dosing. Sleep study to be scheduled - RX for sleep study sent to hospital. - pt has significant sleepiness during the day - she had a score of 17 on epiworth sleepiness scale. 04/08/2017 Appointment: [facility]el[facility] [phone] [facility] [place] (15 min) Moderate 04/08/2017 Patient Education: [...] thyroid ultrasound. 02/20/2017 Appointment: Cat[facility] Led[facility]ma [facility]Ptel[facility] [phone] [facility] [place] (30 min) Complex 02/20/2017 Patient Education: [...] my patient. 11/21/2016 Appointment: [facility] Led[facility]el[facility] [phone] [facility] [place] (15 min) Moderate 11/21/2016 Patient Education: Patient [...] not improving. 08/29/2016 Appointment: [facility] Led[facility]ma [facility]Ptel[facility] [phone] [facility] (30 min) Complex 08/29/2016 Patient Education: Patient Medication Summary Completed 08/29/2016 Patient Education: Hypertension Completed 08/29/2016 Visit Plan: referral to dr. aburto for cysts of right abdomen near ribs 07/05/2016 Appointment: [facility] Led[facility]ma [facility]Ptel[facility] [phone] [facility] (15 min) Moderate 07/05/2016 Patient Education: Patient [...] stomach pain. 06/04/2016 Appointment: [phone] [facility] [place] (15 min) Moderate 06/04/2016 Patient Education: Patient [...] Patient verbalized understanding of plan. 04/10/2016 Appointment: Blaine [facility] [phone] [phone] (30 min) Complex 04/10/2016 Patient Education: Patient Medication Summary Completed [...] 12/26/2015 Care Plan: Referral Order SNOMED-CT : 113106452 Pending 12/26/2015 Appointment: Caty Ledesma WPtel: [address] [place], [place] [address] [place] (15 min) Moderate 12/19/2015 Visit Plan: URI [...] to keep appt with Dr. Kwon in [place] for treatment of varicose veins. 08/16/2015 Patient [...] of over-medication. 05/10/2015 Appointment: Caty Ledesma WPtel: [address] [place], [place] [address] Follow up 05/10/2015 Patient Education: Patient Medication [...] veins - referral to Vascular team from [facility] 01/17/2015 Appointment: [facility] Led[facility]ma [facility]Ptel[facility] [phone] [facility] Follow up 01/17/2015 Patient Education: Patient Medication Summary Completed 01/17/2015 Patient Education: Hypertension Completed 01/17/2015 Care Plan: Referral Order referral to [facility] for varicose veins - need to see if the patient can have her ultrasound studies HERE with [employer] SNOMED-CT : [id number] Ordered 01/17/2015 Appointment: Cat[facility] Led[facility]ma [facility]Ptel[facility] [phone] [facility] [place] Follow up 01/04/2015 Visit Plan: Worsening rapyicjd-ddhmfs-tzzw injury 1 week ago-recommend CT head due [...] three weeks. 10/27/2014 Appointment: Caty Ledesma WPtel: [facility] Follow up 10/27/2014 Patient Education: Patient Medication [...] the nasal steroid allergy spray. Elevated blood yypzrf-txlwzbhgn-oqpkic-check Hgb A1c as well as TSH Vitamin D deficiency-check vitamin D level 10/15/2014 Appointment: Follow up 10/15/2014 Patient Education: Patient Medication Summary Completed 10/15/2014 Care Plan: TSH Pending 10/15/2014 Care Plan: A1C HPLC [facility] : 39289-4 Pending 10/15/2014 Care Plan: VIT D TOTL [...] stomach pain. 09/30/2014 Appointment: Caty Ledesma WPtel: [facility] [facility] Follow up 09/30/2014 Patient Education: Patient Medication Summary Completed 09/30/2014 Patient Education: Hypertension Completed 09/30/2014 Appointment: Caty Ledesma WPtel: [facility] [facility] Follow up 09/29/2014 Visit Plan: Nausea - [...] at home. 07/14/2014 Appointment: Caty Ledesma WPtel: [facility] [facility] Follow up 07/14/2014 Patient Education: Patient Medication [...] check labs. 06/23/2014 Appointment: [facility]Ptel[facility] [phone] [facility] Follow [facility] 06/23/2014 Patient Education: Patient Medication [...] are worsening. 03/16/2014 Appointment: [facility] Led[facility]ma [facility]Ptel[facility] [phone] [facility] Follow up 03/16/2014 Patient Education: Patient Medication [...] allergy spray. 01/12/2014 Appointment: Caty Ledesma WPtel: [facility] [facility] Follow up 01/12/2014 Patient Education: Patient Medication [...] Fatigue-check labs 12/15/2013 Appointment: Mira Valladares WPtel: [facility]5 [phone] Follow up 12/15/2013 Patient Education: Patient Medication [...] - on scalp - referral to her head baggage porter - Dr. Teran. Recommended pt to call for appt. Raynaud - very mild case - pt to continue with norvasc, monitor symptoms, keep hands warm, call if symptoms worsen, if fingers turn and stay persistently purple, will consider topical treatments versus increase in norvasc. 10/20/2013 Appointment: Caty Ledesma WPtel: [facility] [facility] Follow up 10/20/2013 Patient Education: Patient Medication Summary Completed 10/20/2013 Patient Education: Hypertension Completed 10/20/2013 Visit Plan: Sinusitis - Pt has acute infection - pain in face, maxillary region, Pt informed to use decongestant, RX given to patient, sinus rinses also recommended. Call if symptoms do not show improvement. 09/15/2013 Appointment: Caty Ledesma WPtel: [facility] [facility] Sick 09/15/2013 Patient Education: Patient Medication Summary [...] tolerance test. 07/27/2013 Appointment: Caty Ledesma WPtel: [facility] [facility] Follow up 07/27/2013 Patient Education: Patient Medication Summary Completed 07/27/2013 Patient Education: Hypertension Completed 07/27/2013 Visit Plan: Sinusitis - Pt has acute infection - pain in face, maxillary region, Pt informed to use decongestant, RX given to patient, sinus rinses also recommended. Call if symptoms do not show improvement. 06/09/2013 Appointment: [facility] Vallada[facility] [phone] [phone] Sick 06/09/2013 Patient Education: Patient Medication Summary [...] improving. Restart carafate and pepcid 04/20/2013 Appointment: [facility]el[facility] [phone] [phone] [place] Other 04/20/2013 Patient Education: Patient Medication Summary [...] for full work up and recs. 03/23/2013 Visit Plan: Allergies - chronic - [...] in blood pressure readings at home. 03/23/2013 Appointment: [facility] Led[facility]el[facility] [phone] [facility] Follow up 03/23/2013 Patient Education: Patient Medication Summary Completed 03/23/2013 Patient Education: Hypertension Completed 03/23/2013 Visit Plan: Gait abnormality with falling at home and hitting head - suspect concussion - recommend that Stephanie see Jose Luis at [facility] for balance and gait training. B12 deficiency - improved with b12 shots, will have patient go back to every 2 week injections instead of weekly injections. 01/21/2013 Appointment: Caty Ledesma WPtel: [facility] [place] Follow up 01/21/2013 Patient Education: Patient Medication [...] have mammo. 12/25/2012 Appointment: Caty Ledesma WPtel: [address] [place], [place] [address] [place] Follow up 12/25/2012 Patient Education: Patient Medication [...] clinic today. 10/20/2012 Appointment: Caty Ledesma WPtel: [facility] [place] Follow up 10/20/2012 Patient Education: Patient Medication Summary Completed 10/20/2012 Patient Education: Hypertension Completed 10/20/2012 Appointment: Caty Ledesma WPtel: [address] [place], [place] [address] [place] Injection 09/11/2012 Patient Education: Patient Medication Summary Completed 09/11/2012 Appointment: Caty Ledesma WPtel: [address] [place], [place] [address] [place] Injection 08/18/2012 Visit Plan: Hypertension - [...] a surgeon. 08/11/2012 Appointment: Caty Ledesma WPtel: [facility] [id number] Follow [facility] 08/11/2012 Patient Education: Patient Medication Summary Completed 08/11/2012 Patient Education: Hypertension Completed 08/11/2012 Appointment: Cat[facility] Ledesma [facility]el[facility] [phone] [id number] [place] Injection 07/21/2012 Patient Education: Patient Medication [...] d level. 07/10/2012 Appointment: [facility] Vallada[phone] [id number] New Patient 07/10/2012 Patient Education: Patient Medication Summary Completed 07/10/2012 Patient Education: High Blood Pressure: Essential Hypertension Completed 2011 Referral: Blaise Aburto Info. faxed Completed Referral: Kuldip Robison HPtel:[phone] [id number] [place] Referral Appointment Requested Referral: Blaise Aburto Referral Appointment Requested Referral: [facility], - Referral Appointment Requested Instructions Comment . Hypertension - well controlled - continue with current medications, continue with no added salt diet. Pt has been encouraged to exercise daily. The pt has been advised to call the office if there are any acute concerns about change in blood pressure readings at home. Chronic fatigue and chronic pain syndrome- from chronic illness - no change in current management . Hypertension - well controlled - continue [...] on lower abdomen - healing well. . Diarrhea, left upper quadrant pain, left [...] worsening of stomach upset or stomach pain. continue mucinex and zyrtec add flonase if needed . Sinusitis - Pt has acute infection - pain in face, maxillary region, Pt informed to use decongestant, RX given to patient, sinus rinses also recommended. Call if symptoms do not show improvement. . Nausea - pt to finish antibiotics, [...] change in blood pressure readings at home. pt to start on probiotic - like [...] Call if symptoms do not show improvement. We will check labs and X-Ray today. Continue to take Naproxen as needed for low back pain. Further plan pending results of labs and x -ray. . Frequent Urination with mid to lower back pain- UA negative. Will check labs and KUB X-Ray today. Recommend increase water intake and avoid caffeine. Further plan pending labs and radiology results. . pt has been informed of signs and symptoms to watch for with her potential exposure to meningitis, pt's questions about symptoms were answered, pt has chronic allergy symptoms CHECK LABS TODAY STOOL STUDIES KUB TODAY [...] tolerated. Call if symptoms not improved. . Hypertension - well controlled - continue [...] to assure normal liver response to medications. need to take a probiotic one pill [...] pain - recommended pt to have mammo. . Worsening qrckffpv-nuxbmq-pghg injury 1 week ago- recommend CT head due to worsening symptoms and concern for subdural hematoma- patient sent to the hospital for STAT CT. Neck pain-recent fall-xray cervical spine-increase hydrocodone to 10mg/325mg- may consider physical therapy if xray negative for acute injury as patient is experiencing significant neck pain and headache. change the pristiq to night-time . Fatigue - daytime - recommended sleep study, change pristiq to night-time dosing. Sleep study to be scheduled - RX for sleep study sent to hospital. - pt has significant sleepiness during the day - she had a score of 17 on epiworth sleepiness scale. . Paronychia-left great toe-culture of toe today in the office-use bactroban ointment as directed-call if symptoms do not resolve or if any worse. Patient verbalized understanding of plan. . Paronychia-left great toe-culture of toe today in the office-use bactroban ointment as directed-call if symptoms do not resolve or if any worse. Patient verbalized understanding of plan. stop the pantoprazole stop aspirin use over [...] if you tolerate the previously decreased dosing. Aleve twice daily x 10 days . [...] the nasal steroid allergy spray. Elevated blood jxwvpi-fzycolpwv-zvavsn-check Hgb A1c as well as TSH Vitamin D deficiency-check vitamin D level . Hypertension - well controlled - continue [...] pt has declined to see a surgeon. . Headaches-check ESR and CRP Dysphagia-thyroid ultrasound Esophageal Reflux - the patient has been counseled against excessive intake of caffiene, spicy foods, peppermint, and cinnamon - all of which can exacerbate esophageal reflux. The patient is to take medications as prescribed and call the office if the symptoms are not improving. Restart carafate and pepcid decrease the topiramate to 1.5 pills twice [...] - recommended patient to have thyroid ultrasound. Hold Aspirin, Lovaza, Antara, and Zetia for [...] of the three weeks.. . Hypertension - well controlled - continue [...] at the end of the three weeks. . Hypertension - uncontrolled - the patient's [...] neuropathy - check glucose tolerance test. . URI - Pt advised to increase [...] them to send us the report also. . Hypertension - well controlled - continue [...] worse. RX sent to patient's pharmacy. . Sinusitis - Pt has acute infection [...] to keep appt with Dr. Kwon in [place] for treatment of varicose veins. . Sinusitis [...] any worse. GERD-restart carafate QID-continue with PPI reflex sympathetic dystrophy restart questran take a [...] recommended vitamin d 50, 000 units weekly. boil ease or Recticare - these are [...] veins - referral to Vascular team from [facility] RESTART NASAL SPRAY TWICE DAILY CHECK BLOOD [...] recommend that Stephanie see Jose Luis at [facility] for balance and gait training. B12 deficiency [...] physician for full work up and recs. . Allergies - chronic - recommended pt [...] change in blood pressure readings at home. decrease the amlodipine to 1/2 pill daily [...] stable on lower dose of pristiq . Hypertension - well controlled - continue [...] directed, and understands the consequences of over-medication. increase questran to daily flagyl zantac twice daily refer to surgeon for evaluation of epigastric pain -Dr Robison . Epigastric pain -start zantac twice daily- refer to Dr Robison for evaluation Diarrhea-stool studies negative -CT abdomen negative for acute findings -rx for flagyl provided and instructed on use -increase questran to daily . 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 Teran. Recommended pt to call [...]
--- OUTSIDE RECORDS SUMMARY | 2019-01-07 07:27 | XMS REPORT | CCD ---
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 Name Role Phone PP Unavailable CCM Unavailable Summary Purpose Interface Exchange Insurance Providers Payer name Policy type / Coverage type Covered democrat ID Effective Begin Date Effective End Date [facility] Commercial Insurance [id number] Unknown WPS Medicare Part B Commercial Insurance [id number] 2018 Unknown Family history Daughter Diagnosis Age [...] status Unknown 03/26/[address]: 9163675 Former smoker quit 1979 03/26/2016 Number of children Unknown 3 07/10/[address]: 373849951 Never drinks alcohol 07/10/2012 Has the patient ever used illegal drugs? Unknown Has never used illegal drugs 07/10/2012 Allergies, Adverse Reactions, Alerts Substance Reaction Codes Entered Date Inactivated Date Status cymbalta RxNorm: 178730 07/14/2012 No Inactive Date Active Savella nausea RxNorm: 860519 07/14/2012 No Inactive Date Active Metanx nausea RxNorm: 607378 07/14/2012 No Inactive Date Active Gluten Unknown 07/10/2012 No Inactive Date Active Peanuts Unknown 07/10/2012 No Inactive Date Active Levaquin hives RxNorm: 06412 07/14/2012 No Inactive Date Active macrobid pruritis, hives, RxNorm: 406378 07/14/2012 No Inactive Date Active percocet pruritis RxNorm: 668824 07/14/2012 No Inactive Date Active PREDNISONE pruritis, RxNorm: 8640 07/14/2012 No Inactive Date Active ultram pruritis, hives RxNorm: 00825 06/11/2016 No Inactive Date Active GABAPENTIN nausea, Unknown 07/14/2012 No Inactive Date Active Past Medical History Illness Codes Condition Status Onset Date Resolved Date Diarrhea, unspecified ICD-9: 787.91 ICD-10: R19.7 Active 11/18/2018 Unknown Generalized abdominal pain ICD-9: 789.07 ICD-10: [...] ICD-9: 356.9 ICD-10: G62.89 Active 11/21/2016 Unknown Epigastric pain ICD-9 : 789.06 ICD-10: R10.13 Active 07/04/2016 Unknown Toxic gastroenteritis and colitis ICD-9: 558.2 ICD-10: K52.1 Active 06/10/2016 Unknown Left upper quadrant pain ICD-9: 789.02 ICD-10: R10.12 Active 06/03/2016 Unknown Cellulitis of left toe ICD-9: 681.10 ICD-10: L03.032 Active 04/09/2016 Unknown Gastro-esophageal reflux disease without esophagitis ICD-9: 530.81 ICD-10: K21.9 Active 04/09/2014 Unknown 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 [...] unspecified ICD-9: 787.91 ICD-10: R19.7 11/18/2018 Active Generalized abdominal pain ICD-9: 789.07 ICD-10: [...] polyneuropathies ICD-9: 356.9 ICD-10: G62.89 11/21/2016 Active Epigastric pain ICD-9 : 789.06 ICD-10: R10.13 07/04/2016 Active Toxic gastroenteritis and colitis ICD-9: 558.2 ICD-10: K52.1 06/10/2016 Active Left upper quadrant pain ICD-9: 789.02 ICD-10: R10.12 06/03/2016 Active Cellulitis of left toe ICD-9: 681.10 ICD-10: L03.032 04/09/2016 Active Gastro-esophageal reflux disease without esophagitis ICD-9: 530.81 ICD-10: K21.9 04/09/2014 Active 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 [...] Fill Instructions Flagyl 500 mg tablet RxNorm: 554003 1 Tablet(s) PO TID 201811/29/2018 Active Augmentin 875 mg-125 mg tablet RxNorm: 718979 1 Tablet(s) PO BID 11/20/2018 11/29/2018 Active Flagyl 500 mg tablet RxNorm: 903507 1 Tablet(s) PO TID 201811/19/2018 Inactive Augmentin 875 mg-125 mg tablet RxNorm: 091916 1 Tablet(s) PO BID 11/20/2018 11/19/2018 Inactive scopolamine 1 mg over 3 days transdermal patch RxNorm: 235047 1 Patch TD Q72H 10/02/2018 10/31/2018 Inactive Pristiq 50 mg tablet,extended release RxNorm: 566824 1 Tablet(s) PO BID 09/05/2018 08/30/2019 Active Glucocard Vital Sensor strips RxNorm: TEST TWO TIMES A DAY 03/06/2020 Active Request already responded to by other means (e.g. phone or fax) Vitamin B-12 1,000 mcg/mL injection solution RxNorm: 147167 INJECT 1 ML INTRAMUSCULARLY ONCE WEEKLY 08/29/2018 Active amlodipine 5 mg tablet RxNorm: 738405 1 Tablet(s) PO daily 11/19/2019 Active topiramate 100 mg tablet RxNorm: 434033 1/2 Tablet(s) PO BID 08/04/2019 Active [SAVINGS FOR UNINSURED PATIENTS -- BIN:[id number], PCN: ASPROD1, Group: [id number], ID# [id number], Process claim through Legend3D, for questions: . THIS IS NOT INSURANCE.] amlodipine 10 mg tablet RxNorm: 589771 1/2 Tablet(s) PO daily 08/06/2018 08/26/2018 Inactive Pristiq 50 mg tablet,extended release RxNorm: 446306 1 Tablet(s) PO BID 08/06/2018 09/04/2018 Inactive Voltaren 1 % topical gel RxNorm: 269791 APPLY 2 GRAMS TOPICALLY FOUR TIMES A DAY 07/24/2018 10/31/2018 Inactive Fish Oil 1,000 mg capsule RxNorm: 1 Capsule(s) PO TID 201707/02/2019 Active Valium 5 mg tablet RxNorm: 661309 1 Tablet(s) PO PRN as needed 07/08/2018 No Stop Date Active Vagifem 10 mcg vaginal tablet RxNorm: 190186 1 Tablet(s) VAG daily 07/08/2018 No Stop Date Active naproxen sodium 550 mg tablet RxNorm: 362060 Tablet(s) as needed TAKE 1 TABLET BY MOUTH TWO TIMES DAILY 07/08/20182018 Inactive - Ref: [id number] Pristiq 100 mg tablet,extended release RxNorm: 299996 1 Tablet(s) PO daily 07/08/2018 08/05/2018 Inactive Voltaren 1 % topical gel RxNorm: 330302 APPLY 2 GRAMS TOPICALLY FOUR TIMES A DAY 07/08/2018 07/23/2018 Inactive topiramate 100 mg tablet RxNorm: 081691 1 Tablet(s) PO BID 08/05/2018 Inactive [SAVINGS FOR UNINSURED PATIENTS -- BIN:[id number], PCN: ASPROD1, Group: [id number] , ID# [id number], Process claim through Legend3D, for questions: . THIS IS NOT INSURANCE.] Valium 5 mg tablet RxNorm: 913494 1 Tablet(s) PO PRN as needed 06/24/2018 07/07/2018 Inactive folic acid 1 mg tablet RxNorm: 258771 TAKE ONE TABLET BY MOUTH EVERY DAY 05/27/2018 04/21/2019 Active Valium 5 mg tablet RxNorm: 189792 1 Tablet(s) PO PRN as needed 02/21/2018 No Stop Date Active Valium 5 mg tablet RxNorm: 249743 1 Tablet(s) PO PRN as needed 11/12/2017 02/20/2018 Inactive Synthroid 25 mcg tablet RxNorm: 588826 1 Tablet(s) PO daily 02/201811/11/2017 Inactive Synthroid 25 mcg tablet RxNorm: 312530 1 Tablet(s) PO daily 02/201802/10/2018 Inactive Nitro-Bid 2 % transdermal ointment RxNorm: 752591 APPLY TO AFFECTED AREA(S) TOPICALLY THREE TIMES A DAY NEEDED FOR RAYNAUDS SYMPTOMS OF FEET 08/26/2017 10/24/2017 Inactive Vitamin B-12 1,000 mcg/mL injection solution RxNorm: 294612 INJECT 1ML INTRAMUSCULARLY ONCE WEEKLY 08/23/2017 Inactive Request already responded to by other means (e.g. phone or fax) Vitamin B-12 1,000 mcg/mL injection solution RxNorm: 312170 Milliliter(s) INJECT 1ML INTRAMUSCULARLY ONCE WEEKLY 08/21/2017 08/22/2017 Inactive naproxen sodium 550 mg tablet RxNorm: 626644 TAKE 1 TABLET BY MOUTH TWO TIMES DAILY 08/09/2017 11/06/2017 Inactive - Ref: [id number] Combivent Respimat 20 mcg-100 mcg/actuation solution for inhalation RxNorm: 8435406 1-2 Puff(s) INH Q4 PRN 07/26/2017 No Stop Date Active Valium 5 mg tablet RxNorm: 788732 1 Tablet(s) PO PRN as needed 06/27/2017 11/11/2017 Inactive doxycycline hyclate 100 mg tablet RxNorm: 116509 1 Tablet(s) PO BID 06/24/2017 06/30/2017 Inactive azithromycin 250 mg tablet RxNorm: 627575 1 Tablet(s) PO UD 2 tabs on day #1, then 1 pill daily x 4 more days 05/22/2017 08/20/2017 Inactive hydrocodone 10 mg-chlorpheniramine 8 mg/5 mL oral susp extend.rel 12hr RxNorm: 3388944 5 PO as needed 05/10/20172017 Inactive Augmentin 875 mg-125 mg tablet RxNorm: 171814 1 Tablet(s) PO BID 05/10/2017 05/16/2017 Inactive folic acid 1 mg tablet RxNorm: 932744 TAKE ONE TABLET BY MOUTH EVERY DAY 05/09/2017 05/03/2018 Inactive Carafate 1 gram tablet RxNorm: 627657 TAKE ONE TABLET BY MOUTH FOUR TIMES A DAY 30 MINUTES BEFORE MEALS AND AT BEDTIME 03/18/2017 07/07/2018 Inactive scopolamine 1.5 mg transdermal patch (1 mg over 3 days) RxNorm: 871575 1 Patch TD Q72H use for sea sickness 02/20/201703/05 Inactive Pristiq 50 mg tablet,extended release RxNorm: 176767 1 Tablet(s) PO daily 01/15/2017 07/07/2018 Inactive Pristiq 50 mg tablet,extended release RxNorm: 342055 1 Tablet(s) PO BID 12/20/2016 01/14/2017 Inactive naproxen sodium 550 mg tablet RxNorm: 191991 Tablet(s) Take 1 tablet by mouth twice a day 11/14/2016 08/08/2017 Inactive OneTouch Delica Lancets 33 gauge RxNorm: TEST TWO TIMES A DAY 11/12/2016 04/10/2017 Inactive Phenergan VC-Codeine 6.25 mg-5 mg-10 mg/5 mL syrup RxNorm: 822509 5 Milliliter(s) PO Q6 as needed cough 09/06/20162016 Inactive Nitro-Bid 2 % transdermal ointment RxNorm: 623345 APPLY TO AFFECTED AREA(S) TOPICALLY THREE TIMES A DAY NEEDED FOR RAYNAUDS SYMPTOMS OF FEET 08/21/2016 10/19/2016 Inactive Voltaren 1 % topical gel RxNorm: 865392 APPLY 2 GRAMS TOPICALLY FOUR TIMES A DAY 08/21/2016 12/22/2016 Inactive Vitamin B-12 1,000 mcg/mL injection solution RxNorm: 553793 INJECT 1ML INTRAMUSCULARLY ONCE WEEKLY 08/21/2016 Inactive folic acid 1 mg tablet RxNorm: 652243 TAKE ONE TABLET BY MOUTH EVERY DAY 08/13/2016 04/09/2017 Inactive Flagyl 500 mg tablet RxNorm: 823380 1 Tablet(s) PO TID 201506/22/2016 Inactive Cholestyramine Light 4 gram oral powder RxNorm: 470242 1 packet PO PRN as needed 06/11/2016 No Stop Date Active Flexeril 10 mg tablet RxNorm: 387833 1 Tablet(s) PO as needed 02/19/2017 Inactive 1 hs Vagifem 10 mcg vaginal tablet RxNorm: 930200 1 Tablet(s) VAG BIW -TIW 06/11/2016 07/07/2018 Inactive Flagyl 500 mg tablet RxNorm: 383168 1 Tablet(s) PO TID 201506/10/2016 Inactive Lomotil 2.5 mg-0.025 mg tablet RxNorm: 2916553 1 Tablet(s) PO AC & HS as needed 04/24/2016 05/23/2016 Inactive Keflex 500 mg capsule RxNorm: 062253 1 Capsule(s) PO TID 201504/11/2016 Inactive Keflex 500 mg capsule RxNorm: 015701 1 Capsule(s) PO TID 201504/18/2016 Inactive Pristiq 50 mg tablet,extended release RxNorm: 523485 1 Tablet(s) PO QAM 03/30/2016 12/19/2016 Inactive amitriptyline 25 mg tablet RxNorm: 738201 1/2 Tablet(s) PO QHS x [address] pablo 03/30/2016 06/10/2016 Inactive potassium chloride 20 mEq/15 mL oral liquid RxNorm: 301322 TAKE 2 TABLESPOONS DAILY 03/23/2016 09/18/2016 Inactive Glucocard Vital Sensor strips RxNorm: TEST TWO TIMES A DAY 10/17/2017 Inactive Questran 4 gram oral powder RxNorm: 923282 1 dose PO daily 04/201602/14/2016 Inactive Questran 4 gram oral powder RxNorm: 973268 1 dose PO daily 04/201603/15/2016 Inactive Miralax 17 gram oral powder packet RxNorm: 599007 1 PO daily 02/08/2016 Inactive Miralax 17 gram oral powder packet RxNorm: 768885 1 PO daily 06/10/2016 Inactive Carafate 1 gram tablet RxNorm: 386516 1 Tablet(s) PO QID take 30 minutes before meals and at bedtime 01/23/20162015 Inactive Vitamin D2 50,000 unit capsule RxNorm: 764730 1 Capsule(s) PO QW 12/26/2015 03/24/2016 Inactive Tamiflu 75 mg capsule RxNorm: 838232 1 Capsule(s) PO daily 11/2111/21/2015 Inactive Tamiflu 75 mg capsule RxNorm: 001058 1 Capsule(s) PO daily 11/2112/01/2015 Inactive folic acid 1 mg tablet RxNorm: 262078 TAKE ONE TABLET BY MOUTH EVERY DAY 11/03/2015 07/29/2016 Inactive Keflex 500 mg capsule RxNorm: 639984 1 Capsule(s) PO TID 201511/11/2015 Inactive Augmentin 500 mg-125 mg tablet RxNorm: 953426 1 Tablet(s) PO TID 09/13/2015 09/22/2015 Inactive Zithromax Z-Juanpablo 250 mg tablet RxNorm: 388324 1 Tablet(s) PO 12/25/2015 Inactive OneTouch Delica Lancets 33 gauge RxNorm: 1 test Miscellaneous BID 06/21/2015 06/14/2016 Inactive Nitro-Bid 2 % transdermal ointment RxNorm: 139000 1 Application TD TID as needed raynauds symptoms of feet 06/01/201508/29 Inactive Vitamin B-12 1,000 mcg/mL injection solution RxNorm: 597000 INJECT 1ML INTRAMUSCULARLY ONCE WEEKLY 05/16/201503/2016 Inactive Voltaren 1 % topical gel RxNorm: 757020 2 Gram(s) TOP QID 05/1007/08/2015 Inactive potassium chloride 20 mEq/15 mL oral liquid RxNorm: 613274 TAKE 2 TABLESPOONS DAILY 04/22/2015 10/18/2015 Inactive naproxen sodium 550 mg tablet RxNorm: 786056 Tablet(s) Take 1 tablet by mouth twice a day 03/10/2015 06/01/2016 Inactive naproxen sodium 550 mg tablet RxNorm: 610377 Take 1 tablet by mouth twice a day 03/09/2015 11/15/2016 Inactive 2nd Attempt Pristiq 50 mg tablet,extended release RxNorm: 052685 1 Tablet(s) PO BID 03/09/2015 03/08/2015 Inactive naproxen sodium 550 mg tablet RxNorm: 609538 1 Tablet(s) PO BID 03/09/2015 03/08/2015 Inactive naproxen sodium 550 mg tablet RxNorm: 026460 Take 1 tablet by mouth twice a day 03/09/2015 03/09/2015 Inactive Pristiq 50 mg tablet,extended release RxNorm: 091011 Take 1 tablet twice a day 03/09/2015 03/29/2016 Inactive folic acid 1 mg tablet RxNorm: 371798 TAKE ONE TABLET BY MOUTH EVERY DAY 01/17/2015 11/02/2015 Inactive Vitamin B-12 1,000 mcg/mL injection solution RxNorm: 894940 INJECT 1 MLS DIRECTED ONCE WEEKLY 12/03/20142015 Inactive hydrocodone 10 mg-acetaminophen 325 mg tablet RxNorm: 006207 1 Tablet(s) PO Q6 PRN 11/22/2014 12/21/2014 Inactive [SAVINGS FOR NON-COVERED DRUGS -- BIN:[id number], PCN: ASPROD1, Group: XXXXX, ID# [id number], Questions: . THIS IS NOT INSURANCE.] ceftriaxone 1 gram solution for injection RxNorm: 0203937 Inj 11/11/2014 11/11/2014 Inactive [SAVINGS FOR NON-COVERED DRUGS -- BIN:226901, PCN: ASPROD1, Group: XXXXX, ID# [id number], Questions: . THIS IS NOT INSURANCE.] Glucocard Vital Sensor strips RxNorm: 1 test Miscellaneous BID 10/27/2014 10/26/2014 Inactive DX code 790.29 Glucocard Vital Sensor strips RxNorm: 1 test Miscellaneous BID 10/27/2014 11/20/2015 Inactive DX code 790.29 [SAVINGS FOR UNINSURED PATIENTS -- BIN:047424, PCN: ASPROD1, Group: [id number], ID# [id number], Process claim through Legend3D, for questions: . THIS IS NOT INSURANCE.] topiramate 100 mg tablet RxNorm: 084447 2 Tablet(s) PO BID 04/27/2015 Inactive [SAVINGS FOR UNINSURED PATIENTS -- BIN:371014, PCN: ASPROD1, Group: [id number] , ID# [id number], Process claim through Legend3D, for questions: . THIS IS NOT INSURANCE.] Cholestyramine Susp Light 4 gram powder for susp in a packet RxNorm: 956248 packet PO PRN as needed 08/30/20142015 Inactive Nitro-Bid 2 % transdermal ointment RxNorm: 162360 1 Application TD TID as needed raynauds symptoms of feet 07/14/201410/11 Inactive Flonase 50 mcg/actuation nasal spray,suspension RxNorm: 798620 PLACE 2 SPRAYS IN EACH NOSTRIL DAILY 05/25/2014 08/22/2014 Inactive potassium chloride 20 mEq/15 mL oral liquid RxNorm: 447925 2 Tablespoon(s) PO daily 04/20/2014 04/21/2015 Inactive potassium chloride 10 % oral liquid RxNorm: 410156 2 Tablespoon(s) PO daily 04/20/2014 04/19/2014 Inactive potassium chloride 10 % oral liquid RxNorm: 272162 2 Tablespoon(s) PO daily 04/09/2014 04/19/2014 Inactive folic acid 1 mg tablet RxNorm: 839407 Tablet(s) PO TAKE ONE TABLET BY MOUTH EVERY DAY 02/15/2014 No Stop Date Active folic acid 1 mg tablet RxNorm: 555940 Tablet(s) PO TAKE ONE TABLET BY MOUTH EVERY DAY 02/15/2014 01/16/2015 Inactive folic acid 1 mg tablet RxNorm: 003860 1 Tablet(s) PO daily TAKE ONE TABLET BY MOUTH EVERY DAY 02/15/2014 02/14/2014 Inactive Flonase 50 mcg/actuation nasal spray,suspension RxNorm: 779093 1 Cisco NASAL BID 01/12/2014 08/09/2014 Inactive topiramate 100 mg tablet RxNorm: 239250 1.5 Tablet(s) PO BID 08/09/2014 Inactive amoxicillin 500 mg capsule RxNorm: 120313 1 Capsule(s) PO TID 12/24/2013 12/30/2013 Inactive amoxicillin 500 mg capsule RxNorm: 155412 1 Capsule(s) PO TID 12/24/2013 12/23/2013 Inactive Pristiq 50 mg tablet,extended release RxNorm: 819637 1 Tablet(s) PO BID 12/01/2013 02/23/2015 Inactive Vitamin B-12 1,000 mcg/mL injection solution RxNorm: 756375 1 Milliliter(s) Inj QW 11/10/2013 11/09/2013 Inactive Vitamin B-12 1,000 mcg/mL injection solution RxNorm: 270209 1 Milliliter(s) Inj QW 11/10/2013 12/02/2014 Inactive Myrbetriq 25 mg tablet,extended release RxNorm: 8519550 1 Tablet(s) PO daily 10/20/2013 08/16/2014 Inactive fluconazole 150 mg tablet RxNorm: 201026 1 Tablet(s) PO daily 09/15/2013 09/19/2013 Inactive amoxicillin 875 mg-potassium clavulanate 125 mg tablet RxNorm: 665485 1 Tablet(s) PO BID 09/15/2013 09/24/2013 Inactive Pristiq 50 mg tablet,extended release RxNorm: 181908 1 Tablet(s) PO BID 07/30/2013 11/30/2013 Inactive Topamax 25 mg tablet RxNorm: 169842 4 Tablet(s) PO BID 201201/11/2014 Inactive vitamin B12 200mcg Cisco, Suspension RxNorm: 1 Cisco PO daily 07/27/2013 12/25/2015 Inactive Flonase 50 mcg/actuation nasal spray,suspension RxNorm: 758923 2 Cisco NASAL daily 06/09/2013 07/08/2013 Inactive Carafate 1 gram tablet RxNorm: 946289 1 Tablet(s) PO ac and hs 05/07/2013 05/06/2013 Inactive Carafate 1 gram tablet RxNorm: 842111 1 Tablet(s) PO ac and hs 05/07/2013 05/31/2014 Inactive potassium chloride 10 % Oral Liquid RxNorm: 164422 1 Tablespoon(s) PO daily 03/23/2013 04/08/2014 Inactive folic acid 1 mg tablet RxNorm: 999667 Tablet(s) PO TAKE ONE TABLET BY MOUTH EVERY DAY 01/29/2013 02/14/2014 Inactive naproxen sodium 550 mg tablet RxNorm: 357930 1 Tablet(s) PO BID 01/21/2013 10/26/2014 Inactive hydrocodone 5 mg-acetaminophen 500 mg tablet RxNorm: 812224 1 Tablet(s) PO Q8 PRN 12/25/2012 02/19/2017 Inactive folic acid 1 mg tablet RxNorm: 329437 1 Tablet(s) PO daily 01/28/2013 Inactive cyanocobalamin (vitamin B-12) 1,000 mcg/mL Injection RxNorm: 845830 1 Milliliter(s ) Inj 2 x month inject 1 mL every other week intramuscularly 11/03/2012 11/02/2012 Inactive please provide 25 gauge syringes as well. cyanocobalamin (vitamin B-12) 1,000 mcg/mL Injection RxNorm: 416402 Milliliter(s) Inj 11/03/2012 11/03/2012 Inactive cyanocobalamin (vitamin B-12) 1,000 mcg/mL Injection RxNorm: 742944 1 Milliliter(s ) Inj 2 x month inject 1 mL every other week intramuscularly 11/03/2012 12/25/2015 Inactive please provide 25 gauge syringes as well. cyanocobalamin (vitamin B-12) 1,000 mcg/mL Injection RxNorm: 582840 1 Milliliter(s ) Inj 10/20/2012 10/20/2012 Inactive Vitamin B-12 1,000 mcg/mL Injection RxNorm: 500185 1 Milliliter(s) Inj 09/11/2012 09/11/2012 Inactive Zithromax Z-Juanpablo 250 mg tablet RxNorm: 491882 Tablet(s) PO UD 12/24/2012 Inactive please give z juanpablo hydrochlorothiazide 25 mg tablet RxNorm: 705527 1/2 Tablet(s) PO daily 08/11/2012 No Stop Date Active Vitamin B-12 1,000 mcg/mL Injection RxNorm: 804518 Milliliter(s) Inj 08/11/2012 08/11/2012 Inactive Vitamin D2 50,000 unit capsule RxNorm: 4530831 Capsule(s) PO one weekly for 8 weeks then resume her daily dosing 07/21/2012 07/20/2012 Inactive Vitamin B-12 1,000 mcg/mL Injection RxNorm: 445777 Milliliter(s) Inj 07/21/2012 07/21/2012 Inactive Vitamin D2 50,000 unit capsule RxNorm: 0098652 Capsule(s) PO one weekly for 8 weeks then resume her daily dosing 07/21/2012 09/18/2012 Inactive Diflucan 150 mg tablet RxNorm: 019322 1 Tablet(s) PO daily 09/201107/12/2012 Inactive HyoMax-SR 0.375 mg tablet,extended release RxNorm: 2010542 Tablet(s) PO PRN No Start Date Active Maxalt-ACTUARIAL CONSULTANT 10 mg disintegrating tablet RxNorm: 676617 Tablet(s) PO PRN No Start Date Active Vitamin D3 2,000 unit tablet RxNorm: 181311 1 Tablet(s) PO daily No Start Date Active potassium chloride 20 mEq/15 mL oral liquid RxNorm: 740184 2 Tablespoon(s) PO daily No Start Date Active Zetia 10 mg tablet RxNorm: 832631 1 Tablet(s) PO QPM No Start Date Active metoprolol tartrate 50 mg tablet RxNorm: 707902 1 Tablet(s) PO BID No Start Date Active biotin 2,500 mcg tablet RxNorm: 905073 1 Tablet(s) PO daily No Start Date Active Zyrtec 10 mg tablet RxNorm: 5562106 1 Tablet(s) PO PRN No Start Date Active Praluent Pen 75 mg/mL subcutaneous pen injector RxNorm: 4035230 1 Milliliter(s) SQ Q 2 weeks No Start Date Active Fioricet oral RxNorm: 186096 oral No Start Date Active Cholestyramine Susp Light 4 gram Packet RxNorm: 570833 packet PO PRN No Start Date 08/29/2014 Inactive Pristiq 50 mg tablet,extended release RxNorm: 557949 1 Tablet(s) PO daily No Start Date 07/29/2013 Inactive Topamax 25 mg tablet RxNorm: 000570 3 Tablet(s) PO BID No Start Date 07/29/2013 Inactive pantoprazole 40 mg tablet,delayed release RxNorm: 130931 1 Tablet(s) PO daily No Start Date 07/07/2018 Inactive Tricor 145 mg tablet RxNorm: 269257 1 Tablet(s) PO daily No Start Date 12/24/2012 Inactive Zithromax Z-Juanpablo 250 mg tablet RxNorm: 611193 Tablet(s) PO UD No Start Date 08/11/2012 Inactive Fish Oil 1,000 mg capsule RxNorm: 1 Capsule(s) PO BID No Start Date 07/07/2018 Inactive Vitamin D3 2,000 unit capsule RxNorm: 139077 1 Capsule(s) PO daily No Start Date 12/25/2015 Inactive Vagifem 10 mcg vaginal tablet RxNorm: 868705 1-2 Tablet(s) VAG weekly No Start Date 06/10/2016 Inactive Gelnique 10 % (100 mg/gram) transdermal gel packet RxNorm: 948824 3% gel 3 pumps TD daily No Start Date 08/09/2014 Inactive Vitamin D3 5,000 unit tablet RxNorm: 984544 1 Tablet(s) PO daily No Start Date 06/10/2016 Inactive hydrochlorothiazide 25 mg tablet RxNorm: 321566 1 Tablet(s) PO daily No Start Date 08/10/2012 Inactive Flexeril 10 mg tablet RxNorm: 094222 Tablet(s) PO No Start Date 06/10/2016 Inactive 1 q am1/2 with dinner1 hs Valium 5 mg tablet RxNorm: 928689 1 Tablet(s) PO PRN No Start Date 06/26/2017 Inactive amlodipine 5 mg tablet RxNorm: 364434 1 Tablet(s) PO daily No Start Date 03/15/2014 Inactive Phenergan VC-Codeine 6.25 mg-5 mg-10 mg/5 mL syrup RxNorm: 450582 5 Milliliter(s) PO Q6 as needed cough No Start Date 2015 Inactive Zithromax Z-Juanpablo 250 mg tablet RxNorm: 833291 Tablet(s) PO UD No Start Date 07/30/2013 Inactive naproxen 500 mg tablet RxNorm: 743442 Tablet(s) PO BID PRN No Start Date 01/20/2013 Inactive Lovaza 1 gram capsule RxNorm: 511303 2 Capsule(s) PO BID No Start Date 03/04/2018 Inactive hydrocodone 5 mg-acetaminophen 500 mg tablet RxNorm: 463180 1 Tablet(s) PO Q8 PRN No Start Date 12/24/2012 Inactive biotin 1000 mg RxNorm : 2 PO No Start Date 06/11/2016 Inactive aspirin 81 mg tablet,delayed release RxNorm: 694861 1 Tablet(s) PO daily No Start Date 07/07/2018 Inactive Lomotil 2.5 mg-0.025 mg tablet RxNorm: 7514750 Tablet(s) PO PRN No Start Date 04/23/2016 Inactive Ditropan XL 5 mg tablet,extended release RxNorm: 237421 1 Tablet(s) PO daily No Start Date 06/09/2018 Inactive Antara 130 mg capsule RxNorm: 502574 1 Capsule(s) PO daily No Start Date 07/07/2018 Inactive folic acid 1 mg tablet RxNorm: 374603 1 Tablet(s) PO daily No Start Date 11/02/2012 Inactive amlodipine 10 mg tablet RxNorm: 431569 1 Tablet(s) PO daily No Start Date 08/05/2018 Inactive amitriptyline 25 mg tablet RxNorm: 700564 1 Tablet(s) PO QHS dr fonseca No Start Date 03/29/2016 Inactive Gelnique transdermal RxNorm: 551066 transdermal No Start Date 03/25/2016 Inactive Toprol XL 50 mg tablet,extended release RxNorm: 521984 1 Tablet(s) PO daily No Start Date 04/08/2017 Inactive potassium chloride 10 % Oral Liquid RxNorm: 001198 1 Tablespoon(s) PO daily No Start Date 03/22/2013 Inactive Lipitor 10 mg tablet RxNorm: 212041 1 Tablet(s) PO QHS No Start Date 12/24/2012 Inactive diltiazem 120 mg tablet RxNorm: 166775 1 Tablet(s) PO daily No Start Date 08/10/2012 Inactive Combivent Respimat 20 mcg-100 mcg/actuation solution for inhalation RxNorm: 8971535 1-2 Puff(s) INH Q4 PRN No Start Date 07/25/2017 Inactive Medication Administered Medication Codes Instructions Start Date Status ceftriaxone 1 gram solution for injection RxNorm: 6286833 11/11/2014 No longer Active cyanocobalamin (vitamin B-12) 1,000 mcg/mL Injection RxNorm : 031712 Milliliter 11/03/2012 No longer Active cyanocobalamin (vitamin B-12) 1,000 mcg/mL Injection RxNorm : 453204 1Milliliter 10/20/2012 No longer Active Vitamin B-12 1,000 mcg/mL Injection RxNorm: 990892 1Milliliter 09/11/2012 No longer Active Vitamin B-12 1,000 mcg/mL Injection RxNorm: 667399 Milliliter 08/11/2012 No longer Active Vitamin B-12 1,000 mcg/mL Injection RxNorm: 483462 Milliliter 07/21/2012 No longer Active Immunizations Vaccine Codes Date Status Influenza CVX: 141 06/05/2018 completed Influenza CVX: 141 06/19/2017 completed Tetanus, Diptheria, Pertussis CVX: 113 completed Tetanus/Diptheria CVX: 113 03/30/2015 completed Influenza CVX: 141 05/12/2012 completed Pneumococcal CVX: 33 06/11/2011 completed Assessments Condition Codes Effective Dates Generalized abdominal pain ICD-10: R10.84 ICD-9: 789.07 11/18/2018 Diarrhea, unspecified ICD-10: R19.7 ICD-9: 787.91 11/18/2018 Major depressive disorder, recurrent, moderate ICD-10: [...] pain syndrome ICD-10: G89.4 ICD-9: 338.4 11/21/2016 Epigastric pain ICD-10: R10.13 ICD-9: 789.06 07/05/2016 Toxic gastroenteritis and colitis ICD-10: K52.1 ICD-9: 558.2 06/11/2016 Left upper quadrant pain ICD-10: R10.12 ICD-9: 789.02 06/04/2016 Cellulitis of left toe ICD-10: L03.032 ICD-9: 681.10 04/10/2016 Gastro-esophageal reflux disease without esophagitis ICD-10 : K21.9 ICD-9: 530.81 01/23/2016 Functional diarrhea ICD-10: K59.1 ICD-9: 564.5 12/26/2015 [...] Reason For Visit Effective Dates Notes diarrhea 11/18/2018 depression 10/02/2018 constipation 08/06/2018 depression [...] Observation Code Item Item Code Result Date Clostridium Diff Tox A/B Hly852 Cdiff Negative 11/19/2018 Comp Metabolic Boz040 NA 137 mEq/L 11/18/2018 Comp Metabolic Vxs025 K 3.9 mEq/L 11/18/2018 Comp Metabolic Rem846 CL 105 mEq/L 11/18/2018 Comp Metabolic Rvh046 CO2 26.0 mEq/L 11/18/2018 Comp Metabolic Kuj556 ANION GAP 10 11/18/2018 Comp Metabolic Qrc447 GLUCOSE 98 mg/dL 11/18/2018 Comp Metabolic Gjw752 Creat 0.6 mg/dL 11/18/2018 Comp Metabolic Nll522 eGFR 107 ml/min/1.73m2 11/18/2018 Comp Metabolic Lbb086 BUN 16 mg/dL 11/18/2018 Comp Metabolic Byb875 B/C Ratio 26.2 Ratio 11/18/2018 Comp Metabolic Bhz166 CALCIUM 9.5 mg/dL 11/18/2018 Comp Metabolic Nbd342 ALK PHOS 77 U/L 11/18/2018 Comp Metabolic Azp555 AST(SGOT) 20 U/L 11/18/2018 Comp Metabolic Dkg913 ALT(SGPT) 26 U/L 11/18/2018 Comp Metabolic Lth713 BILI T 0.4 mg/dL 11/18/2018 Comp Metabolic Cym118 ALBUMIN 4.4 g/dL 11/18/2018 Comp Metabolic Wnv794 TPRO 6.9 g/dL 11/18/2018 Comp Metabolic Qvl071 GLOB 2.6 g/dL 11/18/2018 Comp Metabolic Jpt611 A/G Ratio 1.7 Ratio 11/18/2018 Comp Metabolic Kcy068 Osmo 275 mOsmo 11/18/2018 Cbc With Differential [...] 29.2 pg 11/18/2018 Cbc With Differential Ord2 [place]% 7.7 % 11/18/2018 Cbc With Differential Ord2 [...] 1.79 K/ul 11/18/2018 Cbc With Differential Ord2 [place] ABS# 0.5 K/ul 11/18/2018 Cbc With Differential Ord2 Eos ABS# 0.1 K/ul 11/18/2018 Cbc With Differential Ord2 Baso ABS# 0.0 K/ul 11/18/2018 Hepatic Dym174 ALBUMIN 4.5 g/dL 08/11/2018 Hepatic Fse747 TPRO 7.3 g/dL 08/11/2018 Hepatic Bet300 GLOB 2.8 g/dL 08/11/2018 Hepatic Uus920 A/G Ratio 1.6 Ratio 08/11/2018 Hepatic Kmi336 ALK PHOS 89 U/L 08/11/2018 Hepatic Wsl886 ALT(SGPT) 31 U/L 08/11/2018 Hepatic Rdp690 AST(SGOT) 20 U/L 08/11/2018 Hepatic Ruw162 BILI T 0.4 mg/dL 08/11/2018 Hepatic Qgu537 BILI D 0.1 mg/dL 08/11/2018 Hepatic Guc501 BILI I 0.3 mg/dL 08/11/2018 Lipid Ord30 [...] Ord30 C/HDL 3.7 Ratio 05/01/2018 Comp Metabolic Bsn351 NA 140 mEq/L 05/01/2018 Comp Metabolic Rbn975 K 4.1 mEq/L 05/01/2018 Comp Metabolic Vus746 CL 107 mEq/L 05/01/2018 Comp Metabolic Xho690 CO2 25.0 mEq/L 05/01/2018 Comp Metabolic Hao521 ANION GAP 12 05/01/2018 Comp Metabolic Djh138 GLUCOSE 98 mg/dL 05/01/2018 Comp Metabolic Nxb129 Creat 0.7 mg/dL 05/01/2018 Comp Metabolic Sez104 eGFR 96 ml/min/1.73m2 05/01/2018 Comp Metabolic Bst711 BUN 14 mg/dL 05/01/2018 Comp Metabolic Qhp236 B/C Ratio 20.9 Ratio 05/01/2018 Comp Metabolic Yoh258 CALCIUM 9.5 mg/dL 05/01/2018 Comp Metabolic Zyr851 ALK PHOS 74 U/L 05/01/2018 Comp Metabolic Mzx169 AST(SGOT) 19 U/L 05/01/2018 Comp Metabolic Kqc619 ALT(SGPT) 29 U/L 05/01/2018 Comp Metabolic Wxw304 BILI T 0.3 mg/dL 05/01/2018 Comp Metabolic Qkr447 ALBUMIN 4.3 g/dL 05/01/2018 Comp Metabolic Pga219 TPRO 6.7 g/dL 05/01/2018 Comp Metabolic Voa097 GLOB 2.4 g/dL 05/01/2018 Comp Metabolic Ndj280 A/G Ratio 1.8 Ratio 05/01/2018 Comp Metabolic Gns568 Osmo 280 mOsmo 05/01/2018 Free T4 Fcw067 FREE T4 0.95 ng/dL 02/11/2018 Tsh Ord6 TSH (3rd IS) 2.16 uIU/mL 02/11/2018 Free T4 Eua762 FREE T4 0.81 ng/dL 11/12/2017 Tsh Ord6 TSH (3rd IS) 1.66 uIU/mL 11/12/2017 Tsh Ord6 hTSH II 1.45 uIU/mL 08/20/2017 Free T4 Cpk287 FREE T4 0.80 ng/dL 08/20/2017 Hepatic Kyt208 ALBUMIN 4.4 g/dL 08/20/2017 Hepatic And712 TPRO 6.6 g/dL 08/20/2017 Hepatic Djj681 GLOB 2.2 g/dL 08/20/2017 Hepatic Nlp892 A/G Ratio 2.0 Ratio 08/20/2017 Hepatic Qrp874 ALK PHOS 50 U/L 08/20/2017 Hepatic Hgy769 ALT(SGPT) 20 U/L 08/20/2017 Hepatic Wfe197 AST(SGOT) 20 U/L 08/20/2017 Hepatic Srq256 BILI T 0.3 mg/dL 08/20/2017 Hepatic Dlj069 BILI D 0.1 mg/dL 08/20/2017 Hepatic Wcf577 BILI I 0.2 mg/dL 08/20/2017 Lipid Ord30 [...] 30.3 pg 02/21/2017 Cbc With Differential Ord2 [place]% 6.9 % 02/21/2017 Cbc With Differential Ord2 [...] 1.82 K/ul 02/21/2017 Cbc With Differential Ord2 [place] ABS# 0.5 K/ul 02/21/2017 Cbc With Differential Ord2 Eos ABS# 0.2 K/ul 02/21/2017 Cbc With Differential Ord2 Baso ABS# 0.0 K/ul 02/21/2017 %Hba1C Hot751 % HbA1c 19432-2 5.8 % 02/21/2017 %Hba1C Moi092 Gluc Ave 120 mg/dL 02/21/2017 Tsh Ord6 hTSH II 1.90 uIU/mL 02/21/2017 Vitamin D 25 Oh Aqn5760 VITAMIN D, 25 HYDROXY 42.82 ng/mL Comp Metabolic Ckw492 NA 141 mEq/L 02/21/2017 Comp Metabolic Qfe273 K 4.1 mEq/L 02/21/2017 Comp Metabolic Fqd566 CL 107 mEq/L 02/21/2017 Comp Metabolic Xlo849 CO2 25.0 mEq/L 02/21/2017 Comp Metabolic Bxj906 ANION GAP 13 02/21/2017 Comp Metabolic Qab407 GLUCOSE 87 mg/dL 02/21/2017 Comp Metabolic Ayo693 Creat 0.8 mg/dL 02/21/2017 Comp Metabolic Gns411 eGFR 80 ml/min/1.73m2 02/21/2017 Comp Metabolic Pka965 BUN 20 mg/dL 02/21/2017 Comp Metabolic Obk789 B/C Ratio 25.3 Ratio 02/21/2017 Comp Metabolic Swi541 CALCIUM 9.5 mg/dL 02/21/2017 Comp Metabolic Vvq810 ALK PHOS 61 U/L 02/21/2017 Comp Metabolic Lat808 AST(SGOT) 16 U/L 02/21/2017 Comp Metabolic Ovm740 ALT(SGPT) 19 U/L 02/21/2017 Comp Metabolic Yil709 BILI T 0.3 mg/dL 02/21/2017 Comp Metabolic Xog655 ALBUMIN 4.4 g/dL 02/21/2017 Comp Metabolic Mhs434 TPRO 7.0 g/dL 02/21/2017 Comp Metabolic Uld331 GLOB 2.6 g/dL 02/21/2017 Comp Metabolic Bbk364 A/G Ratio 1.7 Ratio 02/21/2017 Comp Metabolic Qhx336 Osmo 283 mOsmo 02/21/2017 Lipid Ord30 CHOL 185 mg/dL 02/21/2017 Lipid Ord30 HDL 74.0 mg/dl 02/21/2017 Lipid Ord30 TRIG 148 mg/dL 02/21/2017 Lipid Ord30 LDL 81 mg/dL 02/21/2017 Lipid Ord30 C/HDL 2.5 Ratio 02/21/2017 Hepatic Orc981 ALBUMIN 4.9 g/dL 08/21/2016 Hepatic Htm203 TPRO 7.3 g/dL 08/21/2016 Hepatic Cmw754 GLOB 2.5 g/dL 08/21/2016 Hepatic Gou917 A/G Ratio 2.0 Ratio 08/21/2016 Hepatic Vwb668 ALK PHOS 76 U/L 08/21/2016 Hepatic Qyl252 ALT(SGPT) 29 U/L 08/21/2016 Hepatic Xed670 AST(SGOT) 22 U/L 08/21/2016 Hepatic Mex469 BILI T 0.4 mg/dL 08/21/2016 Hepatic Wyd793 BILI D 0.1 mg/dL 08/21/2016 Hepatic Phy919 BILI I 0.3 mg/dL 08/21/2016 Lipid Ord30 CHOL 302 mg/dL 08/21/2016 Lipid Ord30 HDL 69.0 mg/dl 08/21/2016 Lipid Ord30 TRIG 223 mg/dL 08/21/2016 Lipid Ord30 LDL 188 mg/dL 08/21/2016 Lipid Ord30 C/HDL 4.4 Ratio 08/21/2016 Lipase Qgw931 LIPASE 14 U/L 06/04/2016 Cbc With Differential [...] 30.0 pg 06/04/2016 Cbc With Differential Ord2 [place]% 6.5 % 06/04/2016 Cbc With Differential Ord2 [...] 1.50 K/ul 06/04/2016 Cbc With Differential Ord2 [place] ABS# 0.4 K/ul 06/04/2016 Cbc With Differential Ord2 Eos ABS# 0.1 K/ul 06/04/2016 Cbc With Differential Ord2 Baso ABS# 0.0 K/ul 06/04/2016 Comp Metabolic Ttu160 NA 135 mEq/L 06/04/2016 Comp Metabolic Fox511 K 3.8 mEq/L 06/04/2016 Comp Metabolic Wab631 CL 101 mEq/L 06/04/2016 Comp Metabolic Odg787 CO2 26.0 mEq/L 06/04/2016 Comp Metabolic Tff370 ANION GAP 12 06/04/2016 Comp Metabolic Oga832 GLUCOSE 91 mg/dL 06/04/2016 Comp Metabolic Srg978 Creat 0.8 mg/dL 06/04/2016 Comp Metabolic Nvq470 eGFR 74 ml/min/1.73m2 06/04/2016 Comp Metabolic Ypc224 BUN 16 mg/dL 06/04/2016 Comp Metabolic Ydn426 B/C Ratio 19.0 Ratio 06/04/2016 Comp Metabolic Gfc045 CALCIUM 10.0 mg/dL 06/04/2016 Comp Metabolic Fwf960 ALK PHOS 76 U/L 06/04/2016 Comp Metabolic Ymk384 AST(SGOT) 20 U/L 06/04/2016 Comp Metabolic Mxi843 ALT(SGPT) 24 U/L 06/04/2016 Comp Metabolic Yur453 BILI T 0.3 mg/dL 06/04/2016 Comp Metabolic Grn191 ALBUMIN 4.6 g/dL 06/04/2016 Comp Metabolic Qyy274 TPRO 6.9 g/dL 06/04/2016 Comp Metabolic Pxs839 GLOB 2.3 g/dL 06/04/2016 Comp Metabolic Mcb676 A/G Ratio 2.0 Ratio 06/04/2016 Comp Metabolic Zzv392 Osmo 271 mOsmo 06/04/2016 Amylase Ord34 AMYLASE 31 U/L 06/04/2016 Hepatic Whh975 ALBUMIN 4.3 g/dL 2016 Hepatic Dyy568 TPRO 6.7 g/dL 2016 Hepatic Luk421 GLOB 2.4 g/dL 2016 Hepatic Npg935 A/G Ratio 1.8 Ratio 2016 Hepatic Suc721 ALK PHOS 50 U/L 2016 Hepatic Ahy878 ALT(SGPT) 20 U/L 2016 Hepatic Doj633 AST(SGOT) 18 U/L 2016 Hepatic Ijt272 BILI T 0.4 mg/dL 2016 Hepatic Bpc725 BILI D 0.1 mg/dL 2016 Hepatic Lgf902 BILI I 0.3 mg/dL 2016 Lipid Ord30 CHOL 245 mg/dL 2016 Lipid Ord30 HDL 62.0 mg/dl 2016 Lipid Ord30 TRIG 140 mg/dL 2016 Lipid Ord30 LDL 155 mg/dL 2016 Lipid Ord30 C/HDL 4.0 Ratio 2016 Urine Culture Ucult Preliminary No Growth Day 1 09/15/2015 Urine Culture Ucult Complete No Growth Day 2 09/15/2015 Magnesium Ord90 Mag 1.9 mg/dL 09/07/2015 Comp Metabolic Oqe344 NA 139 mEq/L 09/07/2015 Comp Metabolic Hbg366 K 4.4 mEq/L 09/07/2015 Comp Metabolic Zsj601 CL 107 mEq/L 09/07/2015 Comp Metabolic Llq227 CO2 24.0 mEq/L 09/07/2015 Comp Metabolic Yxb821 ANION GAP 12 09/07/2015 Comp Metabolic Yio509 GLUCOSE 91 mg/dL 09/07/2015 Comp Metabolic Gwp948 Creat 1.0 mg/dL 09/07/2015 Comp Metabolic Ysw014 eGFR 64 ml/min/1.73m2 09/07/2015 Comp Metabolic Gnq686 BUN 31 mg/dL 09/07/2015 Comp Metabolic Rvb955 B/C Ratio 32.3 Ratio 09/07/2015 Comp Metabolic Iza671 CALCIUM 9.7 mg/dL 09/07/2015 Comp Metabolic Bwh371 ALK PHOS 56 U/L 09/07/2015 Comp Metabolic Gzy178 AST(SGOT) 29 U/L 09/07/2015 Comp Metabolic Nbo173 ALT(SGPT) 34 U/L 09/07/2015 Comp Metabolic Tvt061 BILI T 0.3 mg/dL 09/07/2015 Comp Metabolic Fwk401 ALBUMIN 4.6 g/dL 09/07/2015 Comp Metabolic Eby028 TPRO 7.0 g/dL 09/07/2015 Comp Metabolic Oft376 GLOB 2.4 g/dL 09/07/2015 Comp Metabolic Jas243 A/G Ratio 1.9 Ratio 09/07/2015 Comp Metabolic Cmw344 Osmo 284 mOsmo 09/07/2015 Bili D Ord93 BILI D 0.1 mg/dL 09/07/2015 Bili D Ord93 BILI I 0.2 mg/dL 09/07/2015 Lipid Ord30 CHOL 243 mg/dL 09/07/2015 Lipid Ord30 HDL 75.0 mg/dl 09/07/2015 Lipid Ord30 TRIG 161 mg/dL 09/07/2015 Lipid Ord30 LDL 136 mg/dL 09/07/2015 Lipid Ord30 C/HDL 3.2 Ratio 09/07/2015 Tsh Ord6 hTSH II 2.53 uIU/mL 06/13/2015 Comp Metabolic Sff540 NA 138 mEq/L 06/13/2015 Comp Metabolic Bmc578 K 4.0 mEq/L 06/13/2015 Comp Metabolic Cnc521 CL 104 mEq/L 06/13/2015 Comp Metabolic Rko431 CO2 26.0 mEq/L 06/13/2015 Comp Metabolic Ajd274 ANION GAP 12 06/13/2015 Comp Metabolic Qlk686 GLUCOSE 86 mg/dL 06/13/2015 Comp Metabolic Ohc704 Creat 0.9 mg/dL 06/13/2015 Comp Metabolic Hwu187 eGFR 71 ml/min/1.73m2 06/13/2015 Comp Metabolic Qow036 BUN 18 mg/dL 06/13/2015 Comp Metabolic Pwv469 B/C Ratio 20.5 Ratio 06/13/2015 Comp Metabolic Zjj044 CALCIUM 10.1 mg/dL 06/13/2015 Comp Metabolic Dim121 ALK PHOS 52 U/L 06/13/2015 Comp Metabolic Dpb916 AST(SGOT) 18 U/L 06/13/2015 Comp Metabolic Hav171 ALT(SGPT) 21 U/L 06/13/2015 Comp Metabolic Hug185 BILI T 0.3 mg/dL 06/13/2015 Comp Metabolic Lmq592 ALBUMIN 4.7 g/dL 06/13/2015 Comp Metabolic Ccy387 TPRO 6.9 g/dL 06/13/2015 Comp Metabolic Ecv248 GLOB 2.2 g/dL 06/13/2015 Comp Metabolic Ags044 A/G Ratio 2.1 Ratio 06/13/2015 Comp Metabolic Nxt296 Osmo 277 mOsmo 06/13/2015 %Hba1C Bsu238 % HbA1c 33363-3 5.7 % 06/13/2015 %Hba1C Geh674 Gluc Ave 117 mg/dL 06/13/2015 Cbc With [...] 14.7 % 06/13/2015 Vitamin D 25 Oh Iti2026 VITAMIN D, 25 HYDROXY 41.85 ng/mL Cbc [...] Ord2 RDW 14.5 % 04/18/2015 Comp Metabolic Ixh736 NA 137 mEq/L 04/18/2015 Comp Metabolic Qza818 K 4.0 mEq/L 04/18/2015 Comp Metabolic Uva868 CL 105 mEq/L 04/18/2015 Comp Metabolic Mfg411 CO2 23.0 mEq/L 04/18/2015 Comp Metabolic Jdn218 ANION GAP 13 04/18/2015 Comp Metabolic Kck830 GLUCOSE 73 mg/dL 04/18/2015 Comp Metabolic Mzd134 Creat 0.9 mg/dL 04/18/2015 Comp Metabolic Bgf680 eGFR 72 ml/min/1.73m2 04/18/2015 Comp Metabolic Zen448 BUN 17 mg/dL 04/18/2015 Comp Metabolic Kxg873 B/C Ratio 19.5 Ratio 04/18/2015 Comp Metabolic Gjh896 CALCIUM 9.7 mg/dL 04/18/2015 Comp Metabolic Ffk157 ALK PHOS 55 U/L 04/18/2015 Comp Metabolic Maa720 AST(SGOT) 28 U/L 04/18/2015 Comp Metabolic Sbf732 ALT(SGPT) 27 U/L 04/18/2015 Comp Metabolic Vyk935 BILI T 0.3 mg/dL 04/18/2015 Comp Metabolic Ylj203 ALBUMIN 4.5 g/dL 04/18/2015 Comp Metabolic Pee186 TPRO 7.0 g/dL 04/18/2015 Comp Metabolic Buz727 GLOB 2.5 g/dL 04/18/2015 Comp Metabolic Zpx142 A/G Ratio 1.8 Ratio 04/18/2015 Comp Metabolic Ave508 Osmo 274 mOsmo 04/18/2015 Cbc With Differential [...] Ord2 RDW 15.0 % 03/22/2015 Comp Metabolic Tur441 NA 136 mEq/L 03/22/2015 Comp Metabolic Jej656 K 4.1 mEq/L 03/22/2015 Comp Metabolic Rtf353 CL 102 mEq/L 03/22/2015 Comp Metabolic Jme172 CO2 26.0 mEq/L 03/22/2015 Comp Metabolic Iro041 ANION GAP 12 03/22/2015 Comp Metabolic Vrt143 GLUCOSE 82 mg/dL 03/22/2015 Comp Metabolic Qxy883 Creat 0.9 mg/dL 03/22/2015 Comp Metabolic Itz991 eGFR 69 ml/min/1.73m2 03/22/2015 Comp Metabolic Zbx876 BUN 30 mg/dL 03/22/2015 Comp Metabolic Bcv023 B/C Ratio 33.3 Ratio 03/22/2015 Comp Metabolic Vpf386 CALCIUM 10.3 mg/dL 03/22/2015 Comp Metabolic Ori449 ALK PHOS 56 U/L 03/22/2015 Comp Metabolic Zbc267 AST(SGOT) 17 U/L 03/22/2015 Comp Metabolic Vse033 ALT(SGPT) 17 U/L 03/22/2015 Comp Metabolic Jkm187 BILI T 0.3 mg/dL 03/22/2015 Comp Metabolic Ddk373 ALBUMIN 4.7 g/dL 03/22/2015 Comp Metabolic Rze786 TPRO 7.2 g/dL 03/22/2015 Comp Metabolic Bux936 GLOB 2.5 g/dL 03/22/2015 Comp Metabolic Gen167 A/G Ratio 1.9 Ratio 03/22/2015 Comp Metabolic Agv770 Osmo 277 mOsmo 03/22/2015 FREE T4 8505279 FREE T4 1.24 NG/DL 10/18/2014 CHEM 14 1677471 AST 14 U/L 10/15/2014 CHEM 14 7979903 ALT 15 IU/L 10/15/2014 CHEM 14 4107532 BUN 23 MG/DL 10/15/2014 CHEM 14 8194057 ALBUMIN 4.8 GM/DL 10/15/2014 CHEM 14 6345727 CHLORIDE 105 MMOL/L 10/15/2014 CHEM 14 4319668 BILI TOT 0.3 MG/DL 10/15/2014 CHEM 14 8972139 ALK PHOS 60 U/L 10/15/2014 CHEM 14 7393897 SODIUM 140 MMOL/L 10/15/2014 CHEM 14 0867461 CREATININE 0.89 MG/DL 10/15/2014 CHEM 14 0917248 CALCIUM 10.0 MG/DL 10/15/2014 CHEM 14 5200221 POTASSIUM 3.7 MMOL/L 10/15/2014 CHEM 14 0792181 PROT TOT 7.2 GM/DL 10/15/2014 CHEM 14 3989066 GLUCOSE 97 MG/DL 10/15/2014 CHEM 14 1419726 BICARB 25 MMOL/L 10/15/2014 CHEM 14 7339387 ANION GAP 10 MEQ/L 10/15/2014 CBC 8302185 WBC 6.7 10e9/L 10/15/2014 CBC 9275255 RBC 4.49 10e12/L 10/15/2014 CBC 6172787 HGB 13.4 g/dL 10/15/2014 CBC 5842232 HCT DET 40.2 % 10/15/2014 CBC 0358721 MCV 89.5 fL 10/15/2014 CBC 9547828 MCH 29.8 pg 10/15/2014 CBC 5850930 MCHC 33.3 g/dL 10/15/2014 CBC 6818150 PLT 311 10e9/L 10/15/2014 CBC 7188223 MPV 10.7 fL 10/15/2014 CBC 7722374 BESSY % 63.6 % 10/15/2014 CBC 8694856 LY % 26.7 % 10/15/2014 CBC 0808370 MON % 6.6 % 10/15/2014 CBC 4094931 EOS % 2.8 % 10/15/2014 CBC 5713944 BASO % 0.3 % 10/15/2014 CBC 8579847 RDW 13.4 % 10/15/2014 CBC 9637114 ABS BESSY 4.26 10e9/L 10/15/2014 CBC 3997507 ABS LYMPH 1.79 10e9/L 10/15/2014 CBC 6105845 ABS MONO 0.44 10e9/L 10/15/2014 CBC 2323329 ABS EOS 0.19 10e9/L 10/15/2014 CBC 0909500 ABS BASO 0.02 10e9/L 10/15/2014 CBC 3731773 RDW-SD 43.2 fL 10/15/2014 A1C HPLC 3962855 A1C HPLC 00405-9 5.7 % 10/15/2014 TSH 3535016 TSH 4.083 uIU/ML 10/15/2014 GFR CALC 0434879 GFR AA >60 ML/MIN 10/15/2014 GFR CALC 2958275 GFR NON-AA >60 ML/MIN 10/15/2014 VIT D TOTL 0808415 VIT D TOTL 36 NG/ML 10/15/2014 GFR CALC 5193770 GFR AA >60 ML/MIN 06/23/2014 GFR CALC 3446260 GFR NON-AA >60 ML/MIN 06/23/2014 CHEM 14 4545728 AST 21 U/L 06/23/2014 CHEM 14 0022436 ALT 24 IU/L 06/23/2014 CHEM 14 3116504 BUN 18 MG/DL 06/23/2014 CHEM 14 3760282 ALBUMIN 4.7 GM/DL 06/23/2014 CHEM 14 0875745 CHLORIDE 109 MMOL/L 06/23/2014 CHEM 14 3940246 BILI TOT 0.3 MG/DL 06/23/2014 CHEM 14 5517662 ALK PHOS 53 U/L 06/23/2014 CHEM 14 1101211 SODIUM 140 MMOL/L 06/23/2014 CHEM 14 6114458 CREATININE 0.86 MG/DL 06/23/2014 CHEM 14 4863257 CALCIUM 10.2 MG/DL 06/23/2014 CHEM 14 6490748 POTASSIUM 3.9 MMOL/L 06/23/2014 CHEM 14 5767960 PROT TOT 6.9 GM/DL 06/23/2014 CHEM 14 1860037 GLUCOSE 87 MG/DL 06/23/2014 CHEM 14 4439735 BICARB 24 MMOL/L 06/23/2014 CHEM 14 3249553 ANION GAP 7 MEQ/L 06/23/2014 TSH 8842533 TSH 1.417 uIU/ML 06/23/2014 FREE T4 8538630 FREE T4 1.21 NG/DL 06/23/2014 TSH 0816366 TSH 3.399 uIU/ML 12/16/2013 CBC 7209139 WBC 6.4 10e9/L 12/15/2013 CBC 0667986 RBC 4.34 10e12/L 12/15/2013 CBC 2684320 HGB 12.9 g/dL 12/15/2013 CBC 9787947 HCT DET 39.3 % 12/15/2013 CBC 0257733 MCV 90.6 fL 12/15/2013 CBC 4036173 MCH 29.7 pg 12/15/2013 CBC 7653762 MCHC 32.8 g/dL 12/15/2013 CBC 7033656 PLT 292 10e9/L 12/15/2013 CBC 9535490 MPV 10.8 fL 12/15/2013 CBC 7939834 BESSY % 63.6 % 12/15/2013 CBC 8162301 LY % 25.7 % 12/15/2013 CBC 2531420 MON % 7.1 % 12/15/2013 CBC 1842999 EOS % 3.3 % 12/15/2013 CBC 1993116 BASO % 0.3 % 12/15/2013 CBC 0541666 RDW 13.4 % 12/15/2013 CBC 4567539 ABS BESSY 4.07 10e9/L 12/15/2013 CBC 5176098 ABS LYMPH 1.64 10e9/L 12/15/2013 CBC 5010620 ABS MONO 0.45 10e9/L 12/15/2013 CBC 2542334 ABS EOS 0.21 10e9/L 12/15/2013 CBC 9304338 ABS BASO 0.02 10e9/L 12/15/2013 CBC 8766749 RDW-SD 43.5 fL 12/15/2013 CHEM 14 0016459 AST 19 U/L 12/15/2013 CHEM 14 6818665 ALT 23 IU/L 12/15/2013 CHEM 14 2801874 BUN 23 MG/DL 12/15/2013 CHEM 14 1889773 ALBUMIN 4.7 GM/DL 12/15/2013 CHEM 14 4364637 CHLORIDE 108 MMOL/L 12/15/2013 CHEM 14 5317000 BILI TOT 0.3 MG/DL 12/15/2013 CHEM 14 0437036 ALK PHOS 58 U/L 12/15/2013 CHEM 14 5763874 SODIUM 139 MMOL/L 12/15/2013 CHEM 14 3844207 CREATININE 0.92 MG/DL 12/15/2013 CHEM 14 2814690 CALCIUM 10.0 MG/DL 12/15/2013 CHEM 14 8663080 POTASSIUM 4.0 MMOL/L 12/15/2013 CHEM 14 3981255 PROT TOT 7.1 GM/DL 12/15/2013 CHEM 14 5066711 GLUCOSE 82 MG/DL 12/15/2013 CHEM 14 8343739 BICARB 24 MMOL/L 12/15/2013 CHEM 14 8563080 ANION GAP 7 MEQ/L 12/15/2013 GFR CALC 3433579 GFR AA >60 ML/MIN 12/15/2013 GFR CALC 7503891 GFR NON-AA >60 ML/MIN 12/15/2013 URINALYSIS NONAUTO W/O SCOPE 35628 Specific [place] 1.025 DateTime(Free Text in Aprima) URINALYSIS NONAUTO W/O SCOPE 28472 PH 5 DateTime(Free Text in Aprima) URINALYSIS NONAUTO W/O SCOPE 79445 GLUCOSE neg DateTime( Free Text in Aprima) URINALYSIS NONAUTO W/O SCOPE 43109 Protein neg DateTime( Free Text in Aprima) URINALYSIS NONAUTO W/O SCOPE 49309 Blood neg DateTime(Free Text in Aprima) URINALYSIS NONAUTO W/O SCOPE 62846 Bilirubin neg DateTime(Free Text in Aprima) URINALYSIS NONAUTO W/O SCOPE 03282 Ketones neg DateTime( Free Text in Aprima) URINALYSIS NONAUTO W/O SCOPE 58784 Urobilinogen neg DateTime(Free Text in Aprima) URINALYSIS NONAUTO W/O SCOPE 39947 Nitrite neg DateTime( Free Text in Aprima) URINALYSIS NONAUTO W/O SCOPE 30462 Leukocytes neg DateTime(Free Text in Aprima) Review of Systems System Result Effective Dates [...] clear 11/12/2017 None Full Exam - General 1995 Ears/Nose/Throat oral cavity/pharynx/larynx Overall: hypopharynx benign 11/12/2017 [...] dentition 05/10/2017 None Full Exam - General 1995 Ears/Nose/Throat oral cavity/pharynx/larynx Oropharynx: erythema 05/10/2017 None Full Exam - General 1994 Respiratory auscultation Overall: breath sounds clear bilaterally 05/10/2017 None Full Exam - General 1995 Respiratory respiratory effort/rhythm Overall: no retractions 05/10/2017 [...] accomodation 02/20/2017 None Full Exam - General 1995 Ears/Nose/Throat lips/teeth/gingiva Overall: benign lips 02/20/2017 None Full Exam - General 1995 Ears/Nose/Throat lips/teeth/gingiva Overall: normal dentition 02/20/2017 None Full Exam - General 1995 Ears/Nose/Throat oral cavity/pharynx/larynx Overall: oral mucosa clear 02/20/2017 None Full Exam - General 1994 Ears/Nose/Throat oral cavity/pharynx/larynx Overall: oropharyngeal mucosa clear 02/20/2017 None Full Exam - General 1995 Ears/Nose/Throat oral cavity/pharynx/larynx Overall: hypopharynx benign 02/20/2017 [...] clear 08/16/2015 None Full Exam - General 1995 Ears/Nose/Throat lips/teeth/gingiva Overall: benign lips 08/16/2015 None [...] vein procedure that will be perform in [place] in May. Full Exam - General 1994 [...] clear 04/09/2014 None Full Exam - General 1995 Ears/Nose/Throat oral cavity/pharynx/larynx Overall: oropharyngeal mucosa clear 04/09/2014 None Full Exam - General 1994 Ears/Nose/Throat oral cavity/pharynx/larynx Overall: no masses 04/09/2014 None Full Exam - General 1994 Respiratory auscultation Overall: breath sounds clear bilaterally 04/09/2014 None Full Exam - General 1994 Respiratory respiratory effort/rhythm Overall: no retractions 04/09/2014 None Full Exam - General 1994 Respiratory respiratory effort/rhythm Overall: normal rate 04/09/2014 None Full Exam - General 1994 Cardiovascular extremities Overall: no clubbing 04/09/2014 None [...] distress 12/15/2013 None Full Exam - General 1995 Constitutional general appearance Overall: well nourished 12/15/2013 [...] clear 12/15/2013 None Full Exam - General 1995 Ears/Nose/Throat oral cavity/pharynx/larynx Overall: no masses 12/15/2013 [...] 07/27/2013 None Full Exam - General 1994 Ears/Nose/Throat otoscopic exam Overall: tympanic membranes clear 07/27/2013 None Full Exam - General 1994 Ears/Nose/Throat oral cavity/pharynx/larynx Overall: oral mucosa clear 07/27/2013 None Full Exam - General 1994 Ears/Nose/Throat oral cavity/pharynx/larynx Overall: oropharyngeal mucosa clear 07/27/2013 None Full Exam - General 1994 Ears/Nose/Throat oral cavity/pharynx/larynx Overall: no masses 07/27/2013 [...] 04/20/2013 None Full Exam - General 1995 Ears/Nose/Throat oral cavity/pharynx/larynx Overall: no masses 04/20/2013 None Full Exam - General 1994 Respiratory auscultation Overall: breath sounds clear bilaterally 04/20/2013 None Full Exam - General 1994 Respiratory respiratory effort/rhythm Overall: no retractions 04/20/2013 None Full Exam - General 1994 Respiratory respiratory effort/rhythm Overall: normal rate 04/20/2013 None Full Exam - General 1994 Cardiovascular extremities Overall: no clubbing 04/20/2013 None Full Exam - General 1994 Cardiovascular auscultation of heart Overall: regular rate 04/20/2013 None Full Exam - General 1994 Cardiovascular auscultation of heart Overall: normal heart sounds 04/20/2013 None Full Exam - General 1994 Cardiovascular auscultation of heart Overall: no murmurs 04/20/2013 None Full Exam - General 1994 Abdomen abdominal exam Overall: no tenderness 04/20/2013 None Full Exam - General 1994 Constitutional general appearance Overall: well developed 04/20/2013 None Full Exam - General 1994 Constitutional general appearance Overall: in no acute distress 04/20/2013 None Full Exam - General 1994 Constitutional general appearance Overall: well nourished 04/20/2013 None Full Exam - General 1994 Eyes conjunctiva /eyelids Overall: conjunctiva clear 04/20/2013 None Full Exam - General 1994 Eyes conjunctiva /eyelids Overall: cornea clear 04/20/2013 None Full Exam - General 1994 Eyes conjunctiva /eyelids Overall: eyelids normal 04/20/2013 [...] developed 03/23/2013 None Full Exam - General 1995 Constitutional [...] 1995 Ears/Nose/Throat oral cavity/pharynx/larynx Overall: no masses 03/23/2013 [...] 1994 Ears/Nose/Throat oral cavity/pharynx/larynx Overall: no masses 01/21/2013 [...] time 01/21/2013 None Full Exam - General 1994 Constitutional general appearance Overall: well developed 12/25/2012 [...] bilaterally 12/25/2012 None Full Exam - General 1995 Respiratory respiratory effort/rhythm Overall: no retractions 12/25/2012 None Full Exam - General 1995 Respiratory respiratory effort/rhythm Overall: normal rate 12/25/2012 None Full Exam - General 1994 Cardiovascular extremities Overall: no clubbing 12/25/2012 None Full Exam - General 1995 Cardiovascular auscultation of heart Overall: regular rate 12/25/2012 None Full Exam - General 1994 Cardiovascular auscultation of heart Overall: normal heart sounds 12/25/2012 None Full Exam - General 1994 Cardiovascular auscultation of heart Overall: no murmurs 12/25/2012 None Full Exam - General 1995 Abdomen abdominal exam Overall: no tenderness 12/25/2012 [...] tender 12/25/2012 None Full Exam - General 1994 Chest/Breast breast and axillae palpation Axillae: no [...] masses 10/20/2012 None Full Exam - General 1994 Respiratory auscultation Overall: breath sounds clear bilaterally 10/20/2012 None Full Exam - General 1994 Respiratory respiratory effort/rhythm Overall: no retractions 10/20/2012 None Full Exam - General 1994 Respiratory respiratory effort/rhythm Overall: normal rate 10/20/2012 None Full Exam - General 1994 Cardiovascular extremities Overall: no clubbing 10/20/2012 None Full Exam - General 1994 [...] 08/11/2012 None Full Exam - General 1995 Eyes conjunctiva /eyelids Overall: cornea clear 08/11/2012 [...] 1994 Ears/Nose/Throat oral cavity/pharynx/larynx Overall: no masses 07/10/2012 None Full Exam - General 1994 [...] Procedure Codes Date IMMUNIZATION ADMIN CPT -4: 54120 06/05/2018 FLU VAC NO PRSV 4 ZONIA 3 YRS+ CPT-4: 11411 06/05/2018 IMMUNIZATION ADMIN CPT -4: 22053 06/19/2017 FLU VAC NO PRSV 4 ZONIA 3 YRS+ CPT-4: 03757 06/19/2017 URINALYSIS NONAUTO W/O SCOPE CPT-4: 63272 09/08/2015 IMMUNIZATION ADMIN CPT -4: 77704 03/30/2015 ADACEL TDAP VACCINE 7 YRS/> IM CPT-4: 31243 03/30/2015 URINALYSIS NONAUTO W/O SCOPE CPT-4: 84093 03/22/2015 THER/PROPH/DIAG INJ SC/IM CPT-4: 75460 11/11/2014 ROCEPHIN, PER 250 MG CPT-4: J0696 11/11/2014 ROUTINE VENIPUNCTURE CPT-4: 08522 10/15/2014 HgbA1c CPT-4: 34395 10/15/2014 CBC (COMPLETE CBC W/AUTO DIFF WBC) CPT-4: 82207 10/15/2014 CHEM 14 (COMPREHEN METABOLIC PANEL) CPT-4: 49654 10/15/2014 TSH (ASSAY THYROID STIM HORMONE) CPT-4: 82151 10/15/2014 VIT D TOTL (VITAMIN D 25 HYDROXY) CPT-4: 84617 10/15/2014 FREE T4 (ASSAY OF FREE THYROXINE) CPT-4: 83747 10/15/2014 ROUTINE VENIPUNCTURE CPT-4: 69559 06/23/2014 CHEM 14 (COMPREHEN METABOLIC PANEL) CPT-4: 65114 06/23/2014 TSH (ASSAY THYROID STIM HORMONE) CPT-4: 26433 06/23/2014 FREE T4 (ASSAY OF FREE THYROXINE) CPT-4: 47432 06/23/2014 URINALYSIS NONAUTO W/O SCOPE CPT-4: 54276 12/15/2013 ROUTINE VENIPUNCTURE CPT-4: 21745 12/15/2013 THER/PROPH/DIAG INJ SC/IM CPT-4: 83893 11/03/2012 VITAMIN B12 INJECTION CPT-4: J3420 11/03/2012 THER/PROPH/DIAG INJ SC/IM CPT-4: 31044 10/20/2012 VITAMIN B12 INJECTION CPT-4: J3420 10/20/2012 VITAMIN B12 INJECTION CPT-4: J3420 09/11/2012 THER/PROPH/DIAG INJ SC/IM CPT-4: 69216 09/11/2012 THER/PROPH/DIAG INJ SC/IM CPT-4: 25902 08/11/2012 VITAMIN B12 INJECTION CPT-4: J3420 08/11/2012 THER/PROPH/DIAG INJ SC/IM CPT-4: 66389 07/21/2012 VITAMIN B12 INJECTION CPT-4: J3420 07/21/2012 Vital Signs Date Vital 11/18/2018 Blood Pressure 1: 136/82 Code : 8480-6 BMI: 33.1 Code : 89507-3 Heart Rate 1 : 75 bpm Height: 5'6" SpO2: 98% Temperature: 36.4 (C) / 97.5 (F) Weight: 205 lbs 10/02/2018 Blood Pressure 1: 128/78 Code : 8480-6 BMI: 32.0 Code : 47062-0 Heart Rate 1 : 73 bpm Height: 5'6" SpO2: 98% Weight: 198 lbs 08/06/2018 Blood Pressure 1: 116/78 Code : 8480-6 BMI: 32.3 Code : 48513-7 Heart Rate 1 : 71 bpm Height: 5'6" SpO2: 98% Weight: 200 lbs 07/08/2018 Blood Pressure 1: 128/70 Code : 8480-6 BMI: 32.4 Code : 38068-9 Heart Rate 1 : 76 bpm Height: 5'6" SpO2: 96% Weight: 201 lbs 02/11/2018 Blood Pressure 1: 122/84 Code : 8480-6 BMI: 32.4 Code : 25642-8 Heart Rate 1 : 71 bpm Height: 5'6" SpO2: 97% Weight: 201 lbs 11/12/2017 Blood Pressure 1: 130/82 Code : 8480-6 BMI: 32.3 Code : 00065-3 Height: 5'6" Weight: 200 lbs 08/20/2017 Blood Pressure 1: 126/78 Code : 8480-6 BMI: 32.3 Code : 86740-0 Heart Rate 1 : 66 bpm Height: 5'6" SpO2: 98% Weight: 200 lbs 06/24/2017 Blood Pressure 1: 134/78 Code : 8480-6 BMI: 34.2 Code : 68557-7 Heart Rate 1 : 71 bpm Height: 5'6" SpO2: 95% Weight: 212 lbs 05/22/2017 Blood Pressure 1: 122/78 Code : 8480-6 BMI: 33.9 Code : 82669-8 Heart Rate 1 : 76 bpm Height: 5'6" SpO2: 97% Weight: 210 lbs 05/10/2017 Blood Pressure 1: 130/84 Code : 8480-6 BMI: 34.1 Code : 53714-3 Heart Rate 1 : 90 bpm Height: 5'6" SpO2: 98% Temperature: 36.9 (C) / 98.5 (F) Weight: 211 lbs 04/08/2017 Blood Pressure 1: 132/78 Code : 8480-6 BMI: 34.4 Code : 32159-0 Heart Rate 1 : 72 bpm Height: 5'6" SpO2: 97% Weight: 213 lbs 02/20/2017 Blood Pressure 1: 130/90 Code : 8480-6 BMI: 33.9 Code : 54225-6 Heart Rate 1 : 74 bpm Height: 5'6" SpO2: 98% Weight: 210 lbs 11/21/2016 Blood Pressure 1: 132/74 Code : 8480-6 BMI: 34.2 Code : 11710-4 Heart Rate 1 : 66 bpm Height: 5'6" SpO2: 97% Weight: 212 lbs 08/29/2016 Blood Pressure 1: 136/82 Code : 8480-6 BMI: 33.7 Code : 52407-4 Heart Rate 1 : 70 bpm Height: 5'6" Respiratory Rate: 18 bpm SpO2: 98% Weight: 209 lbs 07/05/2016 Blood Pressure 1: 142/76 Code : 8480-6 BMI: 33.2 Code : 05377-4 Heart Rate 1 : 73 bpm Height: 5'6" SpO2: 98% Weight: 206 lbs 06/11/2016 Blood Pressure 1: 130/82 Code : 8480-6 BMI: 33.4 Code : 58857-6 Heart Rate 1 : 76 bpm Height: 5'6" SpO2: 97% Weight: 207 lbs 06/04/2016 Blood Pressure 1: 134/80 Code : 8480-6 BMI: 33.4 Code : 64300-3 Heart Rate 1 : 71 bpm Height: 5'6" SpO2: 98% Weight: 207 lbs 04/10/2016 Blood Pressure 1: 124/80 Code : 8480-6 BMI: 34.4 Code : 20968-0 Heart Rate 1 : 76 bpm Height: 5'6" SpO2: 96% Weight: 213 lbs 03/26/2016 Blood Pressure 1: 118/74 Code : 8480-6 BMI: 34.4 Code : 37471-5 Heart Rate 1 : 72 bpm Height: 5'6" SpO2: 98% Weight: 213 lbs 01/23/2016 Blood Pressure 1: 134/76 Code : 8480-6 BMI: 33.7 Code : 65248-1 Heart Rate 1 : 76 bpm Height: 5'6" SpO2: 97% Weight: 209 lbs 12/26/2015 Blood Pressure 1: 11676 Code : 8480-6 BMI: 33.4 Code : 82333-3 Heart Rate 1 : 78 bpm Height: 5'6" SpO2: 98% Weight: 207 lbs 11/02/2015 Blood Pressure 1: 118/80 Code : 8480-6 BMI: 33.6 Code : 79541-8 Heart Rate 1 : 75 bpm Height: 5'6" SpO2: 95% Weight: 208 lbs 09/13/2015 Blood Pressure 1: 140/82 Code : 8480-6 BMI: 33.6 Code : 53105-3 Heart Rate 1 : 92 bpm Height: 5'6" SpO2: 96% Weight: 208 lbs 09/07/2015 Blood Pressure 1: 140/82 Code : 8480-6 BMI: 33.4 Code : 92941-8 Heart Rate 1 : 85 bpm Height: 5'6" SpO2: 95% Weight: 207 lbs 08/16/2015 Blood Pressure 1: 138/84 Code : 8480-6 BMI: 32.9 Code : 60010-2 Heart Rate 1 : 87 bpm Height: 5'6" SpO2: 97% Weight: 204 lbs 06/13/2015 Blood Pressure 1: 130/82 Code : 8480-6 BMI: 33.1 Code : 84150-8 Heart Rate 1 : 84 bpm Height: 5'6" SpO2: 96% Weight: 205 lbs 05/10/2015 Blood Pressure 1: 118/70 Code : 8480-6 BMI: 32.9 Code : 24749-3 Heart Rate 1 : 77 bpm Height: 5'6" SpO2: 97% Weight: 204 lbs 03/22/2015 Blood Pressure 1: 118/76 Code : 8480-6 BMI: 32.0 Code : 28750-1 Heart Rate 1 : 88 bpm Height: 5'6" Temperature: 36.2 (C) / 97.2 (F) Weight: 198 lbs 01/17/2015 Blood Pressure 1: 120/80 Code : 8480-6 BMI: 32.6 Code : 72613-0 Heart Rate 1 : 88 bpm Height: 5'6" Weight: 202 lbs 11/22/2014 Blood Pressure 1: 118/82 Code : 8480-6 BMI: 31.8 Code : 23857-0 Heart Rate 1 : 72 bpm Height: 5'6" Weight: 197 lbs 10/27/2014 Blood Pressure 1: 130/82 Code : 8480-6 BMI: 32.0 Code : 08134-2 Heart Rate 1 : 86 bpm Height: 5'6" SpO2: 97% Weight: 198 lbs 10/15/2014 Blood Pressure 1: 118/82 Code : 8480-6 BMI: 32.1 Code : 86309-4 Heart Rate 1 : 100 bpm Height: 5'6" Weight: 199 lbs 09/30/2014 Blood Pressure 1: 118/86 Code : 8480-6 BMI: 32.0 Code : 65976-4 Heart Rate 1 : 80 bpm Height: 5'6" Temperature: 35.7 (C) / 96.3 (F) Weight: 198 lbs 07/14/2014 Blood Pressure 1: 116/80 Code : 8480-6 BMI: 32.9 Code : 91596-4 Heart Rate 1 : 80 bpm Height: 5'6" Weight: 204 lbs 06/23/2014 Blood Pressure 1: 128/88 Code : 8480-6 BMI: 33.7 Code : 80185-8 Height: 5'6" Weight: 209 lbs 04/09/2014 Blood Pressure 1: 138/82 Code : 8480-6 Heart Rate 1: 90 bpm SpO2: 97% Temperature: 35.8 (C) / 96.5 (F) Weight: 210 lbs 03/16/2014 Blood Pressure 1: 116/80 Code : 8480-6 BMI: 34.1 Code : 52765-5 Heart Rate 1 : 88 bpm Height: 5'6" Weight: 211 lbs 01/12/2014 Blood Pressure 1: 124/70 Code : 8480-6 BMI: 33.4 Code : 95936-2 Heart Rate 1 : 76 bpm Height: 5'6" Weight: 207 lbs 12/15/2013 Blood Pressure 1: 144/100 Code: 8480-6 Blood Pressure 2: 124/90 Code: 8480-6 Heart Rate 1: 72 bpm Weight: 215 lbs 10/20/2013 Blood Pressure 1: 130/84 Code : 8480-6 BMI: 34.5 Code : 69489-0 Heart Rate 1 : 84 bpm Height: 5'6" Weight: 214 lbs 09/15/2013 Blood Pressure 1: 128/90 Code : 8480-6 BMI: 34.9 Code : 82384-1 Heart Rate 1 : 88 bpm Height: 5'6" Temperature: 36.5 (C) / 97.7 (F) Weight: 216 lbs 07/27/2013 Blood Pressure 1: 138/90 Code : 8480-6 BMI: 34.4 Code : 89327-6 Heart Rate 1 : 88 bpm Height: 5'6" Weight: 213 lbs 06/09/2013 Blood Pressure 1: 138/92 Code : 8480-6 Heart Rate 1: 88 bpm Weight: 04/20/2013 Blood Pressure 1: 142/92 Code : 8480-6 BMI: 34.4 Code : 12416-8 Heart Rate 1 : 88 bpm Height: 5'6" Weight: 213 lbs 03/23/2013 Blood Pressure 1: 116/84 Code : 8480-6 BMI: 34.1 Code : 22973-6 Heart Rate 1 : 76 bpm Height: 5'6" Weight: 211 lbs 01/21/2013 Blood Pressure 1: 130/88 Code : 8480-6 BMI: 34.5 Code : 47918-8 Heart Rate 1 : 80 bpm Height: 5'6" Weight: 214 lbs 12/25/2012 Blood Pressure 1: 112/70 Code : 8480-6 Heart Rate 1: 84 bpm Respiratory Rate : 20 bpm Weight: 214 lbs 8 oz 10/20/2012 Blood Pressure 1: 124/80 Code : 8480-6 BMI: 34.4 Code : 54749-7 Heart Rate 1 : 84 bpm Height: 5'6" Temperature: 36.7 (C) / 98.0 (F) Weight: 213 lbs 08/11/2012 Blood Pressure 1: 116/80 Code : 8480-6 BMI: 33.9 Code : 66221-5 Heart Rate 1 : 76 bpm Height: 5'6" Respiratory Rate: 20 bpm Weight: 210 lbs 07/10/2012 Blood Pressure 1: 110/76 Code : 8480-6 BMI: 46.5 Code : 17115-2 Heart Rate 1 : 84 bpm Height: 4'8" Respiratory Rate: 20 bpm Weight: 207 lbs 8 oz Functional Status No Functional Status data History of Present Illness Symptom Name Status Result Effective Date Notes Quality acute 2018 None Pertinent Findings nausea [...] of Symptom _ weeks ago 09/30/2014 over holiday cough Pertinent Findings chest discomfort 09/30/2014 during [...] of Symptom _ weeks ago 09/30/2014 around [place] neck pain Location in the lower cervical/ [...] hypertension Onset and Resolution ongoing 07/14/2014 dr mcdowell increased amlodipine to 10mg daily [...] data Encounters Encounter Performer Location Codes Date [id number]) [id number] EST. PATIENT, LEVEL IV Diagnosis: Generalized abdominal pain[ICD10: R10.84] Diagnosis: Diarrhea, unspecified[ICD10: R19.7] [facility] CPT-4: 22883 11/18/2018 ([id number]) 17787 EST. PATIENT, LEVEL IV Diagnosis: Essential (primary) hypertension[ICD10: I10] Diagnosis: Functional diarrhea[ICD10: K59.1] Diagnosis: Generalized anxiety disorder[ICD10: F41.1] Diagnosis: Major depressive disorder, recurrent, moderate[ICD10: F33.1] [facility] CPT-4: 51215 10/02/2018 ([id number]) 94576 EST. PATIENT, LEVEL IV Diagnosis: Essential (primary) hypertension[ICD10: I10] Diagnosis: Generalized anxiety disorder[ICD10: F41.1] Diagnosis: Slow transit constipation[ICD10: K59.01] Diagnosis: Other fatigue[ICD10: R53.83] Diagnosis: Nontoxic multinodular goiter[ICD10: E04.2] Caty Ledesma MD, [facility] CPT-4: 64638 08/06/2018 ([id number]) 81248 EST. PATIENT, LEVEL IV Diagnosis: Essential (primary) hypertension[ICD10: I10] Diagnosis: Major depressive disorder, recurrent, moderate[ICD10: F33.1] Diagnosis: Generalized anxiety disorder[ICD10: F41.1] Caty Ledesma MD, [facility] CPT-4: 46258 07/08/2018 ([id number]) 96351 EST. PATIENT, LEVEL IV Diagnosis: Nontoxic multinodular goiter[ICD10: E04.2] Diagnosis: Mixed hyperlipidemia[ICD10: E78.2] Diagnosis: Essential (primary) hypertension[ICD10: I10] Caty Ledesma MD, [facility] CPT-4: 61523 02/11/2018 ([id number]) 53439 EST. PATIENT, LEVEL IV Diagnosis: Nontoxic multinodular goiter[ICD10: E04.2] Diagnosis: Essential (primary) hypertension[ICD10: I10] Diagnosis: Other fatigue[ICD10: R53.83] Caty Ledesma MD, [facility] CPT- 4: 29704 11/12/2017 ([id number]) 19704 EST. PATIENT, LEVEL IV Diagnosis: Nontoxic multinodular goiter[ICD10: E04.2] Diagnosis: Major depressive disorder, recurrent, moderate[ICD10: F33.1] Diagnosis: Generalized anxiety disorder[ICD10: F41.1] Diagnosis: Essential (primary) hypertension[ICD10: I10] Caty Ledesma MD, [facility] CPT-4: 84270 08/20/2017 ([id number]) 12314 EST. PATIENT, LEVEL III Diagnosis: Acute recurrent maxillary sinusitis[ICD10: J01.01] Diagnosis: Encounter for other preprocedural examination[ICD10: Z01.818] Mira Ledesma MD, [facility] CPT-4: 48660 06/24/2017 ([id number]) 38672 EST. PATIENT, LEVEL IV Diagnosis: Acute recurrent frontal sinusitis[ICD10: J01.11] Diagnosis: Type 2 diabetes mellitus without complications[ICD10: E11.9] Diagnosis: Essential (primary) hypertension[ICD10: I10] Caty Ledesma MD, [facility] CPT-4: 68110 05/22/2017 ([id number]) 08032 EST. PATIENT, LEVEL III Diagnosis: Acute recurrent maxillary sinusitis[ICD10: J01.01] Diagnosis: Cough[ICD10: R05] Mira Ledesma MD, [facility] CPT-4: 89275 05/10/2017 ([id number]) 09326 EST. PATIENT, LEVEL IV Diagnosis: Generalized anxiety disorder[ICD10: F41.1] Diagnosis: Muscle weakness (generalized)[ICD10: M62.81] Diagnosis: Somnolence[ICD10: R40.0] Diagnosis: Snoring[ICD10: R06.83] Caty Ledesma MD, [facility] CPT-4: 22196 04/08/2017 ([id number]) 59780 EST. PATIENT, LEVEL IV Diagnosis: Vitamin deficiency, unspecified[ICD10: E56.9] Diagnosis: Major depressive disorder, recurrent, moderate[ICD10: F33.1] Diagnosis: Generalized anxiety disorder[ICD10: F41.1] Diagnosis: Impaired fasting glucose[ICD10: R73.01] Diagnosis: Chronic migraine without aura, not intractable, without status migrainosus[ICD10: G43.709] Diagnosis: Essential (primary) hypertension[ICD10: I10] Diagnosis: Mixed hyperlipidemia[ICD10: E78.2] Diagnosis: Nontoxic multinodular goiter[ICD10: E04.2] Caty Ledesma MD, [facility] CPT-4: 71937 02/20/2017 ([id number]) 54583 EST. PATIENT, LEVEL IV Diagnosis: Generalized anxiety disorder[ICD10: F41.1] Diagnosis: Major depressive disorder, recurrent, moderate[ICD10: F33.1] Diagnosis: Chronic pain syndrome[ICD10: G89.4] Diagnosis: Other specified polyneuropathies[ICD10: G62.89] Diagnosis: Muscle weakness (generalized)[ICD10: M62.81] Diagnosis: Essential (primary) hypertension[ICD10: I10] Caty Ledesma MD, [facility] CPT-4: 53415 11/21/2016 ([id number]) 28311 EST. PATIENT, LEVEL III Diagnosis: Generalized abdominal pain[ICD10: R10.84] Diagnosis: Essential (primary) hypertension[ICD10: I10] Caty Ledesma MD [facility] CPT-4: 28631 08/29/2016 ([id number]) 43112 EST. PATIENT, LEVEL III Diagnosis: Epigastric pain[ICD10: R10.13] Caty Ledesma MD [facility] CPT- 4: 33392 07/05/2016 ([id number]) 56092 EST. PATIENT, LEVEL III Diagnosis: Toxic gastroenteritis and colitis[ICD10: K52.1] Caty Ledesma MD [facility] CPT-4: 91519 06/11/2016 30818 EST. PATIENT, LEVEL III Diagnosis: Left upper quadrant pain[ICD10: R10.12] Estrella Ledesma MD [facility] CPT-4: 34204 06/04/2016 ([id number]) 74772 EST. PATIENT, LEVEL III Diagnosis: Cellulitis of left toe[ICD10: L03.032] Mira Ledesma MD [facility] CPT-4: 46406 04/10/2016 ([id number]) 72524 EST. PATIENT, LEVEL III Diagnosis: Essential (primary) hypertension[ICD10: I10] Diagnosis: Chronic pain syndrome[ICD10: G89.4] Diagnosis: Other fatigue[ICD10: R53.83] Caty Ledesma MD [facility] CPT- 4: 16087 03/26/2016 ([id number]) 79506 EST. PATIENT, LEVEL III Diagnosis: Gastro-esophageal reflux disease without esophagitis[ICD10: K21.9] Caty Ledesma MD [facility] CPT-4: 54636 01/23/2016 ([id number]) 71572 EST. PATIENT, LEVEL IV Diagnosis: Type 2 diabetes mellitus without complications[ICD10: E11.9] Diagnosis: Gastro-esophageal reflux disease without esophagitis[ICD10: K21.9] Diagnosis: Functional diarrhea[ICD10: K59.1] Caty Ledesma MD, [facility] CPT-4: 96414 12/26/2015 51397 EST. PATIENT, LEVEL IV Diagnosis: Other seasonal allergic rhinitis[ICD10: J30.2] Diagnosis: Acute recurrent maxillary sinusitis[ICD10: J01.01] Diagnosis: Cough[ICD10: R05] Estrella Ledesma MD [facility] CPT-4: 39667 11/02/2015 58637 EST. PATIENT, LEVEL III Diagnosis: Acute recurrent maxillary sinusitis[ICD10: J01.01] Diagnosis: Urgency of urination[ICD10: R39.15] Diagnosis: Cough[ICD10: R05] Diagnosis: Acute laryngopharyngitis[ICD10: J06.0] Estrella Ledesma MD [facility] CPT-4: 45780 09/13/2015 60584 EST. PATIENT, LEVEL IV Diagnosis: Pain in left lower leg[ICD10: M79.662] Diagnosis: Cramp and spasm[ICD10: R25.2] Diagnosis: Acute nasopharyngitis [common cold][ICD10: J00] Estrella Ledesma MD [facility] CPT-4: 74536 09/07/2015 ([id number]) 64131 EST. PATIENT, LEVEL IV Diagnosis: Essential (primary) hypertension[ICD10: I10] Diagnosis: Type 2 diabetes mellitus without complications[ICD10: E11.9] Diagnosis: Varicose veins of unspecified lower extremities with other complications[ICD10: I83.899] Caty Ledesma MD [facility] CPT-4: 09287 08/16/2015 ([id number]) 94922 EST. PATIENT, LEVEL IV Diagnosis: Type 2 diabetes mellitus without complications[ICD10: E11.9] Diagnosis: Other mixed anxiety disorders[ICD10: F41.3] Diagnosis: Vitamin deficiency, unspecified[ICD10: E56.9] Diagnosis: Essential (primary) hypertension[ICD10: I10] Caty Ledesma MD [facility] CPT-4: 82324 06/13/2015 ([id number]) 73345 EST. PATIENT, LEVEL IV Diagnosis: ESSENTIAL HYPERTENSION[ICD9: 401.9] Diagnosis: CHRONIC PAIN SYNDROME[ICD9: 338.4] Caty Ledesma MD [facility] CPT-4: 57916 05/10/2015 ([id number]) 43504 EST. PATIENT, LEVEL III Diagnosis: Back pain[ICD9: 724.5] Diagnosis: URINARY FREQUENCY[ICD9: 788.41] Caty Ledesma MD [facility] CPT- 4: 62829 03/22/2015 ([id number]) 53262 EST. PATIENT, LEVEL IV Diagnosis: ESSENTIAL HYPERTENSION[ICD9: 401.9] Diagnosis: DIABETES TYPE II[ICD9: 250.00] Diagnosis: Varicose vein[ICD9: 454.9] Caty Ledesma MD [facility] CPT- 4: 01145 01/17/2015 ([id number]) 47755 EST. PATIENT, LEVEL IV Diagnosis: HEADACHE[ICD9: 784.0] Diagnosis: Neck pain[ICD9: 723.1] Diagnosis: Vision changes[ICD9: 368.9] Diagnosis: Nausea[ICD9: 787.02] Mira Ledesma MD [facility] CPT-4: 21096 11/22/2014 ([id number]) 94241 EST. PATIENT, LEVEL I Diagnosis: Meningitis exposure[ICD9: V01.89] Caty Ledesma MD [facility] CPT-4: 89189 11/11/2014 ([id number]) 46964 EST. PATIENT, LEVEL IV Diagnosis: Elevated blood sugar[ICD9: 790.29] Diagnosis: ESSENTIAL HYPERTENSION[ICD9: 401.9] Caty Ledesma MD [facility] CPT-4: 60043 10/27/2014 ([id number]) 56312 EST. PATIENT, LEVEL IV Diagnosis: Costochondritis[ICD9: 733.6] Diagnosis: ALLERGIC RHINITIS[ICD9: 477.9] Diagnosis: Vitamin D deficiency[ICD9: 268.9] Diagnosis: Elevated blood sugar[ICD9: 790.29] Mira Ledesma MD, [facility] CPT-4: 24946 10/15/2014 ([id number]) 59531 EST. PATIENT, LEVEL IV Diagnosis: ESSENTIAL HYPERTENSION[ICD9: 401.9] Diagnosis: Diarrhea[ICD9: 787.91] Caty Ledesma MD [facility] CPT-4: 15244 09/30/2014 ([id number]) 58578 EST. PATIENT, LEVEL IV Diagnosis: Raynauds disease[ICD9: 443.0] Diagnosis: Nausea[ICD9: 787.02] Diagnosis: ESSENTIAL HYPERTENSION[ICD9: 401.9] Caty Ledesma MD, [facility] CPT-4: 26348 07/14/2014 ([id number]) 78034 EST. PATIENT, LEVEL IV Diagnosis: ESSENTIAL HYPERTENSION[ICD9: 401.9] Diagnosis: Esophageal reflux[ICD9: 530.81] Diagnosis: Hyponatremia[ICD9: 276.1] Diagnosis: OBESITY[ICD9: 278.00] Diagnosis: Chronic migraine[ICD9: 346.70] Caty Ledesma MD, [facility] CPT- 4: 44704 06/23/2014 ([id number]) 10397 EST. PATIENT, LEVEL IV Diagnosis: ESSENTIAL HYPERTENSION[ICD9: 401.9] Diagnosis: GERD (gastroesophageal reflux disease)[ICD9: 530.81] Diagnosis: Costochondritis[ICD9: 733.6] Mira Ledesma MD, [facility] CPT-4: 18306 04/09/2014 ([id number]) 57862 EST. PATIENT, LEVEL IV Diagnosis: ESSENTIAL HYPERTENSION[ICD9: 401.9] Diagnosis: RAYNAUD'S SYNDROME[ICD9: 443.0] Caty Ledesma MD, [facility] CPT- 4: 26557 03/16/2014 ([id number]) 63634 EST. PATIENT, LEVEL III Diagnosis: ESSENTIAL HYPERTENSION[SNOMED: 83293207] Diagnosis: ALLERGIC RHINITIS[ICD9: 477.9] Diagnosis: Knee pain[ICD9: 719.46] Caty Ledesma MD, [facility] CPT-4: 37607 01/12/2014 ([id number]) 00671 EST. PATIENT, LEVEL IV Diagnosis: ALLERGIC RHINITIS[ICD9: 477.9] Diagnosis: ESSENTIAL HYPERTENSION[SNOMED: 94735708] Diagnosis: Fatigue[ICD9: 780.79] Caty Ledesma MD, [facility] CPT-4: 47455 12/15/2013 ([id number]) 43618 EST. PATIENT, LEVEL III Diagnosis: ESSENTIAL HYPERTENSION[SNOMED: 74010710] Diagnosis: Skin lesion[ICD9: 709.9] Diagnosis: Raynauds disease[ICD9: 443.0] Caty Ledesma MD [facility] CPT- 4: 16240 10/20/2013 ([id number]) 72735 EST. PATIENT, LEVEL III Diagnosis: ACUTE SINUSITIS[ICD9: 461.9] Caty Ledesma MD [facility] CPT- 4: 77543 09/15/2013 ([id number]) 32538 EST. PATIENT, LEVEL IV Diagnosis: ESSENTIAL HYPERTENSION[SNOMED: 17605074] Diagnosis: Peripheral neuropathy[ICD9: 356.9] Diagnosis: Vitamin D deficiency[ICD9: 268.9] Diagnosis: Vitamin B12 deficiency[ICD9: 266.2] Caty Ledesma MD [facility] CPT-4: 46662 07/27/2013 ([id number]) 97255 EST. PATIENT, LEVEL III Diagnosis: ACUTE SINUSITIS[ICD9: 461.9] Diagnosis: COUGH[ICD9: 786.2] Mira Ledesma MD [facility] CPT-4: 04093 06/09/2013 04909 EST. PATIENT, LEVEL IV Diagnosis: HEADACHE[ICD9: 784.0] Diagnosis: Dysphagia[ICD9: 787.20] Diagnosis: Esophageal reflux[ICD9: 530.81] Caty Ledesma MD [facility] CPT- 4: 94253 04/20/2013 ([id number]) 50887 EST. PATIENT, LEVEL IV Diagnosis: Seasonal allergic rhinitis[ICD9: 477.9] Diagnosis: HEADACHE[ICD9: 784.0] Diagnosis: ESSENTIAL HYPERTENSION[SNOMED: 67582754] Caty Ledesma MD [facility] CPT-4: 10048 03/23/2013 ([id number]) 09355 EST. PATIENT, LEVEL III Diagnosis: ABNORMALITY OF GAIT[ICD9: 781.2] Diagnosis: B-COMPLEX DEFIC NEC[ICD9: 266.2] Caty Ledesma MD, [facility] CPT-4: 61447 01/21/2013 ([id number]) 64457 EST. PATIENT, LEVEL IV Diagnosis: ESSENTIAL HYPERTENSION[SNOMED: 25479691] Diagnosis: Breast pain[ICD9: 611.71] Caty Ledesma MD [facility] CPT-4: 36670 12/25/2012 ([id number]) 59606 EST. PATIENT, LEVEL III Diagnosis: ESSENTIAL HYPERTENSION[SNOMED: 90639828] Diagnosis: ACUTE URI[ICD9: 465.9] [facility] CPT-4: 11544 10/20/2012 [id number]) 69763 EST. PATIENT, LEVEL IV Diagnosis: B-COMPLEX DEFIC NEC[ICD9: 266.2] Diagnosis: ESSENTIAL HYPERTENSION[SNOMED: 91029506] Diagnosis: Gait instability[ICD9: 781.2] Diagnosis: Back pain[ICD9: 724.5] [facility] CPT-4: 42887 08/11/2012 OFFICE VISIT, NEW - LEVEL 4 Diagnosis: ESSENTIAL HYPERTENSION[SNOMED: 18696799] Diagnosis: ACUTE SINUSITIS[ICD9: 461.9] Diagnosis: Gait instability[ICD9: 781.2] Diagnosis: Weakness of both legs[ICD9: 729.89] Mira Ledesma MD, [facility] CPT-4: 44050 07/10/2012 Plan of Care Planned Activity Notes Codes Status Date Visit Plan: Abdominal pain -diarrhea- - discussed need to stay away from milk products while acutely ill with diarrhea and nausea and emesis as it may worsen the symptoms. Liquids initially until the nausea improves, then recommend to advance to bland diet for 1 day, then advance as tolerated. Call if symptoms not improved. 11/18/2018 Appointment: Mira Valladares WPtel: [address] [place], [place] [phone] (15 min) Moderate 11/18/2018 Patient Education: Patient [...] medications. 10/02/2018 Appointment: [facility] [phone] [facility] [place] [place] (15 min) Moderate 10/02/2018 Patient Education: [...] pristiq 08/06/2018 Appointment: [facility] Led[facility] [phone] [facility] [place] [place] (15 min) Moderate 08/06/2018 Patient Education: Patient Medication Summary Completed 08/06/2018 Patient Education: Patient Medication Summary Completed 07/09/2018 Care Plan: [facility] 73228-6 Pending 07/09/2018 Visit Plan: Hypertension - well [...] decreased dosing. 07/08/2018 Appointment: [facility] Led[facility]ma [facility] [phone] [facility] [place] [place] (15 min) Moderate 07/08/2018 Patient Education: [...] to medications. 02/11/2018 Appointment: [facility] Led[facility]ma [facility] [phone] [facility] [place] [place] (15 min) Moderate 02/11/2018 Patient Education: [...] 25mcg daily. 11/12/2017 Appointment: [facility] Led[phone] [place] [place] (15 min) Moderate 11/12/2017 Patient Education: [...] healing well. 08/20/2017 Appointment: [facility] Led[phone] [place] [place] (15 min) Moderate 08/20/2017 Patient Education: [...] Weaver 06/24/2017 App[facility]ment[id number] ([facility] min) Complex 06/24/2017 Patient Education: Patient [...] less controlled. 05/22/2017 Appointment: Caty Ledesma WPtel: [phone] [facility] (15 min) Moderate 05/22/2017 Patient Education: Patient Medication Summary Completed 05/22/2017 Visit Plan: Sinusitis - Pt has acute infection - pain in face, maxillary region, Pt informed to use decongestant, RX given to patient, sinus rinses also recommended. Call if symptoms do not show improvement. 05/10/2017 Appointment: Mira Valladares WPtel: [phone] [phone] [place] (15 min) Moderate 05/10/2017 Patient Education: Patient Medication Summary Completed 05/10/2017 Visit Plan: Fatigue - daytime - recommended sleep study, change pristiq to night-time dosing. Sleep study to be scheduled - RX for sleep study sent to hospital. - pt has significant sleepiness during the day - she had a score of 17 on epiworth sleepiness scale. 04/08/2017 Appointment: [facility] Led[phone] [place] [place] (15 min) Moderate 04/08/2017 Patient Education: [...] thyroid ultrasound. 02/20/2017 Appointment: Caty Ledesma WPtel: [phone] [facility] [place] (30 min) Complex 02/20/2017 Patient Education: [...] my patient. 11/21/2016 Appointment: Caty Ledesma WPtel: [facility]5 [facility] (15 min) Moderate 11/21/2016 Patient Education: Patient [...] not improving. 08/29/2016 Appointment: Caty Ledesma WPtel: [facility]5 [facility] (30 min) Complex 08/29/2016 Patient Education: Patient Medication Summary Completed 08/29/2016 Patient Education: Hypertension Completed 08/29/2016 Visit Plan: referral to dr. aburto for cysts of right abdomen near ribs 07/05/2016 Appointment: [facility] Led[facility]ma [phone] (15 min) Moderate 07/05/2016 Patient Education: Patient [...] pain. 06/04/2016 Appointment: Estrella Bynum WPtel: [phone] [facility] (15 min) Moderate 06/04/2016 Patient Education: Patient [...] of plan. 04/10/2016 Appointment: Mira Valladares WPtel: [phone] [phone] (30 min) Complex 04/10/2016 Patient Education: Patient [...] 12/26/2015 Care Plan: Referral Order SNOMED-CT : [id number] Pending 12/26/2015 Appointment: Caty Ledesma WPtel: [address] [place], [place] [phone] (15 min) Moderate 12/19/2015 Visit Plan: URI [...] to keep appt with Dr. Kwon in [place] for treatment of varicose veins. 08/16/2015 Patient [...] of over-medication. 05/10/2015 Appointment: Caty Ledesma WPtel: [facility] Follow up 05/10/2015 Patient Education: Patient Medication [...] veins - referral to Vascular team from [facility] 01/17/2015 Appointment: Caty Led[place]ma WPtel[phone] [place] Follow up 01/17/2015 Patient Education: Patient Medication Summary Completed 01/17/2015 Patient Education: Hypertension Completed 01/17/2015 Care Plan: Referral Order referral to [facility] for varicose veins - need to see if the patient can have her ultrasound studies HERE with adonis tripp SNOMED-CT : [id number] Ordered 01/17/2015 Appointment: Caty Led[place]ma WPtel[phone] [place] Follow up 01/04/2015 Visit Plan: Worsening zfqwqbid-qhfrlk-icxj injury 1 week ago-recommend CT head due [...] three weeks. 10/27/2014 Appointment: Caty Ledesma WPtel: [facility]6 [facility] Follow up 10/27/2014 Patient Education: Patient Medication [...] the nasal steroid allergy spray. Elevated blood gggtcq-mcmcjxnfi-vlxnit-check Hgb A1c as well as TSH Vitamin D deficiency-check vitamin D level 10/15/2014 Appointment: Follow up 10/15/2014 Patient Education: Patient Medication Summary Completed 10/15/2014 Care Plan: TSH Pending 10/15/2014 Care Plan: A1C HPLC [facility] : 83674-4 Pending 10/15/2014 Care Plan: VIT D TOTL [...] stomach pain. 09/30/2014 Appointment: Caty Ledesma WPtel: [facility]9 [facility] Follow up 09/30/2014 Patient Education: Patient Medication Summary Completed 09/30/2014 Patient Education: Hypertension Completed 09/30/2014 Appointment: Caty Ledesma WPtel: [facility] Follow up 09/29/2014 Visit Plan: Nausea - [...] at home. 07/14/2014 Appointment: Cat[facility] Led[place]ma WPtel: [phone] Follow up 07/14/2014 Patient Education: Patient Medication [...] check labs. 06/23/2014 Appointment: Cat[facility] Led[place]ma WPtel: [phone] Follow up 06/23/2014 Patient Education: Patient Medication [...] worsening. 03/16/2014 Appointment: Caty Ledesma WPtel: [phone] [facility] Follow up 03/16/2014 Patient Education: Patient [...] allergy spray. 01/12/2014 Appointment: Caty Ledesma WPtel: [facility]5 [facility] Follow up 01/12/2014 Patient Education: Patient [...] Fatigue-check labs 12/15/2013 Appointment: Mira Valladares WPtel: [phone] [phone] Follow up 12/15/2013 Patient Education: Patient Medication [...] - on scalp - referral to her bar captain - Dr. Teran. Recommended pt to call for appt. Raynaud - very mild case - pt to continue with norvasc, monitor symptoms, keep hands warm, call if symptoms worsen, if fingers turn and stay persistently purple, will consider topical treatments versus increase in norvasc. 10/20/2013 Appointment: Caty Ledesma WPtel: [phone] [facility] Follow up 10/20/2013 Patient Education: Patient Medication Summary Completed 10/20/2013 Patient Education: Hypertension Completed 10/20/2013 Visit Plan: Sinusitis - Pt has acute infection - pain in face, maxillary region, Pt informed to use decongestant, RX given to patient, sinus rinses also recommended. Call if symptoms do not show improvement. 09/15/2013 Appointment: Caty Ledesma WPtel: [facility]5 [facility] [facility] 09/15/2013 Patient Education: Patient Medication Summary Completed [...] tolerance test. 07/27/2013 Appointment: Caty Ledesma WPtel: [phone] [facility] Follow up 07/27/2013 Patient Education: Patient Medication Summary Completed 07/27/2013 Patient Education: Hypertension Completed 07/27/2013 Visit Plan: Sinusitis - Pt has acute infection - pain in face, maxillary region, Pt informed to use decongestant, RX given to patient, sinus rinses also recommended. Call if symptoms do not show improvement. 06/09/2013 Appointment: Mira Valladares WPtel: [phone] [phone] Sick 06/09/2013 Patient Education: Patient Medication Summary [...] Restart carafate and pepcid 04/20/2013 Appointment: Mira Valladares WPtel: [phone] [phone] Other 04/20/2013 Patient Education: Patient Medication Summary [...] at home. 03/23/2013 Appointment: Caty Ledesma WPtel: [address] [place], [place] [phone] Follow up 03/23/2013 Patient Education: Patient Medication Summary Completed 03/23/2013 Patient Education: Hypertension Completed 03/23/2013 Visit Plan: Gait abnormality with falling at home and hitting head - suspect concussion - recommend that Stephanie Amaya at [facility] for balance and gait training. B12 deficiency - improved with b12 shots, will have patient go back to every 2 week injections instead of weekly injections. 01/21/2013 Appointment: Caty Ledesma WPtel: [address] [place], [place] [phone] Follow up 01/21/2013 Patient Education: Patient Medication [...] have mammo. 12/25/2012 Appointment: Caty Ledesma WPtel: [address] [place], [place] [phone] Follow up 12/25/2012 Patient Education: Patient Medication [...] clinic today. 10/20/2012 Appointment: Caty Ledesma WPtel: [facility]5 [facility] [place] Follow up 10/20/2012 Patient Education: Patient Medication Summary Completed 10/20/2012 Patient Education: Hypertension Completed 10/20/2012 Appointment: Caty Ledesam WPtel: [facility]5 [facility] [place] Injection 09/11/2012 Patient Education: Patient Medication Summary Completed 09/11/2012 Appointment: Caty Ledesma WPtel: [facility]5 [facility] [place] Injection 08/18/2012 Visit Plan: Hypertension - [...] a surgeon. 08/11/2012 Appointment: Caty Led[place]ma WPtel: [phone] [place] Follow up 08/11/2012 Patient Education: Patient Medication Summary Completed 08/11/2012 Patient Education: Hypertension Completed 08/11/2012 Appointment: Caty Ledesma WPtel: [facility] [place] [place] Injection 07/21/2012 Patient Education: Patient Medication [...] d level. 07/10/2012 Appointment: [facility]ira Valladares WPtel[phone] New Patient 07/10/2012 Patient Education: Patient Medication Summary Completed 07/10/2012 Patient Education: High Blood Pressure: Essential Hypertension Completed 2011 Referral: Blaise Aburto Info. faxed Completed Referral: Blaise Aburto Referral Appointment Requested Referral: [facility], - Referral Appointment [...] recommended pt to have mammo. . Worsening xhdismwg-sogiuy-ghio injury 1 week ago- recommend CT head [...] the nasal steroid allergy spray. Elevated blood eephnu-pftqzjhal-eaqgib-check Hgb A1c as well as TSH Vitamin [...] to keep appt with Dr. Kwon in [place] for treatment of varicose veins. . Sinusitis [...] veins - referral to Vascular team from [facility] RESTART NASAL SPRAY TWICE DAILY CHECK BLOOD [...] concussion - recommend that Stephanie Amaya at [facility] for balance and gait training. B12 deficiency [...] directed, and understands the consequences of over-medication. . Diabetes Mellitus - controlled - per [...] - on scalp - referral to her bar captain - Dr. Teran. Recommended pt to call [...]
--- OUTSIDE RECORDS SUMMARY | 2019-01-07 07:36 | XMS REPORT | CCD ---
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 Name Role Phone PP Unavailable CCM Unavailable Summary Purpose Interface Exchange Insurance Providers Payer name Policy type / Coverage type Covered constitution party ID Effective Begin Date Effective End Date [facility] Commercial Insurance [id number] Unknown WPS Medicare Part B Commercial Insurance [id number] 2018 Unknown Family history Daughter Diagnosis Age [...] status Unknown 03/26/[address]: 5888626 Former smoker quit 1979 03/26/2016 Number of children Unknown 3 07/10/[address]: 756828583 Never drinks alcohol 07/10/2012 Has the patient ever used illegal drugs? Unknown Has never used illegal drugs 07/10/2012 Allergies, Adverse Reactions, Alerts Substance Reaction Codes Entered Date Inactivated Date Status cymbalta RxNorm: 247466 07/14/2012 No Inactive Date Active Savella nausea RxNorm: 252843 07/14/2012 No Inactive Date Active Metanx nausea RxNorm: 088961 07/14/2012 No Inactive Date Active Gluten Unknown 07/10/2012 No Inactive Date Active Peanuts Unknown 07/10/2012 No Inactive Date Active Levaquin hives RxNorm: 99443 07/14/2012 No Inactive Date Active macrobid pruritis, hives, RxNorm: 951536 07/14/2012 No Inactive Date Active percocet pruritis RxNorm: 252692 07/14/2012 No Inactive Date Active PREDNISONE pruritis, RxNorm: 8640 07/14/2012 No Inactive Date Active ultram pruritis, hives RxNorm: 04549 06/11/2016 No Inactive Date Active GABAPENTIN nausea, [...] Start Date Stop Date Status Fill Instructions scopolamine 1 mg over 3 days transdermal patch RxNorm: 323215 1 Patch TD Q72H 10/02/2018 10/31/2018 Inactive Pristiq 50 mg tablet,extended release RxNorm: 634990 1 Tablet(s) PO BID 09/05/2018 08/30/2019 Active Glucocard Vital Sensor strips RxNorm: TEST TWO TIMES A DAY 03/06/2020 Active Request already responded to by other means (e.g. phone or fax) Vitamin B-12 1,000 mcg/mL injection solution RxNorm: 093264 INJECT 1 ML INTRAMUSCULARLY ONCE WEEKLY 08/29/2018 Active amlodipine 5 mg tablet RxNorm: 018610 1 Tablet(s) PO daily 11/19/2019 Active topiramate 100 mg tablet RxNorm: 705038 1/2 Tablet(s) PO BID 08/04/2019 Active [SAVINGS FOR UNINSURED PATIENTS -- BIN:[id number], PCN: ASPROD1, Group: [id number], ID# [id number], Process claim through GELI, for questions: . THIS IS NOT INSURANCE.] amlodipine 10 mg tablet RxNorm: 507132 1/2 Tablet(s) PO daily 08/06/2018 08/26/2018 Inactive Pristiq 50 mg tablet,extended release RxNorm: 199297 1 Tablet(s) PO BID 08/06/2018 09/04/2018 Inactive Voltaren 1 % topical gel RxNorm: 121471 APPLY 2 GRAMS TOPICALLY FOUR TIMES A DAY 07/24/2018 10/31/2018 Inactive Fish Oil 1,000 mg capsule RxNorm: 1 Capsule(s) PO TID 201707/02/2019 Active Valium 5 mg tablet RxNorm: 864641 1 Tablet(s) PO PRN as needed 07/08/2018 No Stop Date Active Vagifem 10 mcg vaginal tablet RxNorm: 345328 1 Tablet(s) VAG daily 07/08/2018 No Stop Date Active naproxen sodium 550 mg tablet RxNorm: 751883 Tablet(s) as needed TAKE 1 TABLET BY MOUTH TWO TIMES DAILY 07/08/20182018 Inactive - Ref: [id number] Pristiq 100 mg tablet,extended release RxNorm: 898149 1 Tablet(s) PO daily 07/08/2018 08/05/2018 Inactive Voltaren 1 % topical gel RxNorm: 394091 APPLY 2 GRAMS TOPICALLY FOUR TIMES A DAY 07/08/2018 07/23/2018 Inactive topiramate 100 mg tablet RxNorm: 122883 1 Tablet(s) PO BID 08/05/2018 Inactive [SAVINGS FOR UNINSURED PATIENTS -- BIN:[id number], PCN: ASPROD1, Group: [facility] , ID# [id number], Process claim through GELI, for questions: . THIS IS NOT INSURANCE.] Valium 5 mg tablet RxNorm: 444092 1 Tablet(s) PO PRN as needed 06/24/2018 07/07/2018 Inactive folic acid 1 mg tablet RxNorm: 866169 TAKE ONE TABLET BY MOUTH EVERY DAY 05/27/2018 04/21/2019 Active Valium 5 mg tablet RxNorm: 090561 1 Tablet(s) PO PRN as needed 02/21/2018 No Stop Date Active Valium 5 mg tablet RxNorm: 021909 1 Tablet(s) PO PRN as needed 11/12/2017 02/20/2018 Inactive Synthroid 25 mcg tablet RxNorm: 707601 1 Tablet(s) PO daily 02/201811/11/2017 Inactive Synthroid 25 mcg tablet RxNorm: 319026 1 Tablet(s) PO daily 02/201802/10/2018 Inactive Nitro-Bid 2 % transdermal ointment RxNorm: 492520 APPLY TO AFFECTED AREA(S) TOPICALLY THREE TIMES A DAY NEEDED FOR RAYNAUDS SYMPTOMS OF FEET 08/26/2017 10/24/2017 Inactive Vitamin B-12 1,000 mcg/mL injection solution RxNorm: 372441 INJECT 1ML INTRAMUSCULARLY ONCE WEEKLY 08/23/2017 Inactive Request already responded to by other means (e.g. phone or fax) Vitamin B-12 1,000 mcg/mL injection solution RxNorm: 445230 Milliliter(s) INJECT 1ML INTRAMUSCULARLY ONCE WEEKLY 08/21/2017 08/22/2017 Inactive naproxen sodium 550 mg tablet RxNorm: 779481 TAKE 1 TABLET BY MOUTH TWO TIMES DAILY 08/09/2017 11/06/2017 Inactive - Ref: [id number] Combivent Respimat 20 mcg-100 mcg/actuation solution for inhalation RxNorm: 3926400 1-2 Puff(s) INH Q4 PRN 07/26/2017 No Stop Date Active Valium 5 mg tablet RxNorm: 894655 1 Tablet(s) PO PRN as needed 06/27/2017 11/11/2017 Inactive doxycycline hyclate 100 mg tablet RxNorm: 220785 1 Tablet(s) PO BID 06/24/2017 06/30/2017 Inactive azithromycin 250 mg tablet RxNorm: 203308 1 Tablet(s) PO UD 2 tabs on day #1, then 1 pill daily x 4 more days 05/22/2017 08/20/2017 Inactive hydrocodone 10 mg-chlorpheniramine 8 mg/5 mL oral susp extend.rel 12hr RxNorm: 3190147 5 PO as needed 05/10/20172017 Inactive Augmentin 875 mg-125 mg tablet RxNorm: 715854 1 Tablet(s) PO BID 05/10/2017 05/16/2017 Inactive folic acid 1 mg tablet RxNorm: 892018 TAKE ONE TABLET BY MOUTH EVERY DAY 05/09/2017 05/03/2018 Inactive Carafate 1 gram tablet RxNorm: 327625 TAKE ONE TABLET BY MOUTH FOUR TIMES A DAY 30 MINUTES BEFORE MEALS AND AT BEDTIME 03/18/2017 07/07/2018 Inactive scopolamine 1.5 mg transdermal patch (1 mg over 3 days) RxNorm: 744290 1 Patch TD Q72H use for sea sickness 02/20/201703/05 Inactive Pristiq 50 mg tablet,extended release RxNorm: 512770 1 Tablet(s) PO daily 01/15/2017 07/07/2018 Inactive Pristiq 50 mg tablet,extended release RxNorm: 370250 1 Tablet(s) PO BID 12/20/2016 01/14/2017 Inactive naproxen sodium 550 mg tablet RxNorm: 980081 Tablet(s) Take 1 tablet by mouth twice a day 11/14/2016 08/08/2017 Inactive Harper Alba Lancjean claude 33 gauge RxNorm: TEST TWO TIMES A DAY 11/12/2016 04/10/2017 Inactive Phenergan VC-Codeine 6.25 mg-5 mg-10 mg/5 mL syrup RxNorm: 210658 5 Milliliter(s) PO Q6 as needed cough 09/06/20162016 Inactive Nitro-Bid 2 % transdermal ointment RxNorm: 775544 APPLY TO AFFECTED AREA(S) TOPICALLY THREE TIMES A DAY NEEDED FOR RAYNAUDS SYMPTOMS OF FEET 08/21/2016 10/19/2016 Inactive Voltaren 1 % topical gel RxNorm: 485381 APPLY 2 GRAMS TOPICALLY FOUR TIMES A DAY 08/21/2016 12/22/2016 Inactive Vitamin B-12 1,000 mcg/mL injection solution RxNorm: 513070 INJECT 1ML INTRAMUSCULARLY ONCE WEEKLY 08/21/2016 Inactive folic acid 1 mg tablet RxNorm: 762617 TAKE ONE TABLET BY MOUTH EVERY DAY 08/13/2016 04/09/2017 Inactive Flagyl 500 mg tablet RxNorm: 079760 1 Tablet(s) PO TID 201506/22/2016 Inactive Cholestyramine Light 4 gram oral powder RxNorm: 695532 1 packet PO PRN as needed 06/11/2016 No Stop Date Active Flexeril 10 mg tablet RxNorm: 815709 1 Tablet(s) PO as needed 02/19/2017 Inactive 1 hs Vagifem 10 mcg vaginal tablet RxNorm: 253501 1 Tablet(s) VAG BIW -TIW 06/11/2016 07/07/2018 Inactive Flagyl 500 mg tablet RxNorm: 489428 1 Tablet(s) PO TID 201506/10/2016 Inactive Lomotil 2.5 mg-0.025 mg tablet RxNorm: 6887258 1 Tablet(s) PO AC & HS as needed 04/24/2016 05/23/2016 Inactive Keflex 500 mg capsule RxNorm: 894879 1 Capsule(s) PO TID 201504/11/2016 Inactive Keflex 500 mg capsule RxNorm: 168062 1 Capsule(s) PO TID 201504/18/2016 Inactive Pristiq 50 mg tablet,extended release RxNorm: 414843 1 Tablet(s) PO QAM 03/30/2016 12/19/2016 Inactive amitriptyline 25 mg tablet RxNorm: 914692 1/2 Tablet(s) PO QHS x [address] pablo 03/30/2016 06/10/2016 Inactive potassium chloride 20 mEq/15 mL oral liquid RxNorm: 804607 TAKE 2 TABLESPOONS DAILY 03/23/2016 09/18/2016 Inactive Glucocard Vital Sensor strips RxNorm: TEST TWO TIMES A DAY 10/17/2017 Inactive Questran 4 gram oral powder RxNorm: 075498 1 dose PO daily 04/201602/14/2016 Inactive Questran 4 gram oral powder RxNorm: 994354 1 dose PO daily 04/201603/15/2016 Inactive Miralax 17 gram oral powder packet RxNorm: 146092 1 PO daily 02/08/2016 Inactive Miralax 17 gram oral powder packet RxNorm: 632029 1 PO daily 06/10/2016 Inactive Carafate 1 gram tablet RxNorm: 188372 1 Tablet(s) PO QID take 30 minutes before meals and at bedtime 01/23/20162015 Inactive Vitamin D2 50,000 unit capsule RxNorm: 313925 1 Capsule(s) PO QW 12/26/2015 03/24/2016 Inactive Tamiflu 75 mg capsule RxNorm: 223159 1 Capsule(s) PO daily 11/2111/21/2015 Inactive Tamiflu 75 mg capsule RxNorm: 846915 1 Capsule(s) PO daily 11/2112/01/2015 Inactive folic acid 1 mg tablet RxNorm: 183401 TAKE ONE TABLET BY MOUTH EVERY DAY 11/03/2015 07/29/2016 Inactive Keflex 500 mg capsule RxNorm: 129481 1 Capsule(s) PO TID 201511/11/2015 Inactive Augmentin 500 mg-125 mg tablet RxNorm: 057235 1 Tablet(s) PO TID 09/13/2015 09/22/2015 Inactive Zithromax Z-Juanpablo 250 mg tablet RxNorm: 691775 1 Tablet(s) PO 12/25/2015 Inactive Harper Alba Lancets 33 gauge RxNorm: 1 test Miscellaneous BID 06/21/2015 06/14/2016 Inactive Nitro-Bid 2 % transdermal ointment RxNorm: 376145 1 Application TD TID as needed raynauds symptoms of feet 06/01/201508/29 Inactive Vitamin B-12 1,000 mcg/mL injection solution RxNorm: 871661 INJECT 1ML INTRAMUSCULARLY ONCE WEEKLY 05/16/201503/2016 Inactive Voltaren 1 % topical gel RxNorm: 450382 2 Gram(s) TOP QID 05/1007/08/2015 Inactive potassium chloride 20 mEq/15 mL oral liquid RxNorm: 621849 TAKE 2 TABLESPOONS DAILY 04/22/2015 10/18/2015 Inactive naproxen sodium 550 mg tablet RxNorm: 685923 Tablet(s) Take 1 tablet by mouth twice a day 03/10/2015 06/01/2016 Inactive naproxen sodium 550 mg tablet RxNorm: 491838 Take 1 tablet by mouth twice a day 03/09/2015 11/15/2016 Inactive 2nd Attempt Pristiq 50 mg tablet,extended release RxNorm: 623229 1 Tablet(s) PO BID 03/09/2015 03/08/2015 Inactive naproxen sodium 550 mg tablet RxNorm: 428920 1 Tablet(s) PO BID 03/09/2015 03/08/2015 Inactive naproxen sodium 550 mg tablet RxNorm: 434374 Take 1 tablet by mouth twice a day 03/09/2015 03/09/2015 Inactive Pristiq 50 mg tablet,extended release RxNorm: 172791 Take 1 tablet twice a day 03/09/2015 03/29/2016 Inactive folic acid 1 mg tablet RxNorm: 082869 TAKE ONE TABLET BY MOUTH EVERY DAY 01/17/2015 11/02/2015 Inactive Vitamin B-12 1,000 mcg/mL injection solution RxNorm: 707234 INJECT 1 MLS DIRECTED ONCE WEEKLY 12/03/20142015 Inactive hydrocodone 10 mg-acetaminophen 325 mg tablet RxNorm: 233798 1 Tablet(s) PO Q6 PRN 11/22/2014 12/21/2014 Inactive [SAVINGS FOR NON-COVERED DRUGS -- BIN:745320, PCN: ASPROD1, Group: XXXXX, ID# [id number], Questions: . THIS IS NOT INSURANCE.] ceftriaxone 1 gram solution for injection RxNorm: 1396757 Inj 11/11/2014 11/11/2014 Inactive [SAVINGS FOR NON-COVERED DRUGS -- BIN:982698, PCN: ASPROD1, Group: XXXXX, ID# [id number], Questions: . THIS IS NOT INSURANCE.] Glucocard Vital Sensor strips RxNorm: 1 test Miscellaneous BID 10/27/2014 10/26/2014 Inactive DX code 790.29 Glucocard Vital Sensor strips RxNorm: 1 test Miscellaneous BID 10/27/2014 11/20/2015 Inactive DX code 790.29 [SAVINGS FOR UNINSURED PATIENTS -- BIN:961522, PCN: ASPROD1, Group: [id number], ID# [id number], Process claim through GELI, for questions: . THIS IS NOT INSURANCE.] topiramate 100 mg tablet RxNorm: 197972 2 Tablet(s) PO BID 04/27/2015 Inactive [SAVINGS FOR UNINSURED PATIENTS -- BIN:476757, PCN: ASPROD1, Group: [id number] , ID# [id number], Process claim through GELI, for questions: . THIS IS NOT INSURANCE.] Cholestyramine Susp Light 4 gram powder for susp in a packet RxNorm: 983164 packet PO PRN as needed 08/30/20142015 Inactive Nitro-Bid 2 % transdermal ointment RxNorm: 114212 1 Application TD TID as needed raynauds symptoms of feet 07/14/201410/11 Inactive Flonase 50 mcg/actuation nasal spray,suspension RxNorm: 532135 PLACE 2 SPRAYS IN EACH NOSTRIL DAILY 05/25/2014 08/22/2014 Inactive potassium chloride 20 mEq/15 mL oral liquid RxNorm: 530051 2 Tablespoon(s) PO daily 04/20/2014 04/21/2015 Inactive potassium chloride 10 % oral liquid RxNorm: 732240 2 Tablespoon(s) PO daily 04/20/2014 04/19/2014 Inactive potassium chloride 10 % oral liquid RxNorm: 801038 2 Tablespoon(s) PO daily 04/09/2014 04/19/2014 Inactive folic acid 1 mg tablet RxNorm: 538835 Tablet(s) PO TAKE ONE TABLET BY MOUTH EVERY DAY 02/15/2014 No Stop Date Active folic acid 1 mg tablet RxNorm: 047678 Tablet(s) PO TAKE ONE TABLET BY MOUTH EVERY DAY 02/15/2014 01/16/2015 Inactive folic acid 1 mg tablet RxNorm: 109990 1 Tablet(s) PO daily TAKE ONE TABLET BY MOUTH EVERY DAY 02/15/2014 02/14/2014 Inactive Flonase 50 mcg/actuation nasal spray,suspension RxNorm: 026642 1 Jolley NASAL BID 01/12/2014 08/09/2014 Inactive topiramate 100 mg tablet RxNorm: 182016 1.5 Tablet(s) PO BID 08/09/2014 Inactive amoxicillin 500 mg capsule RxNorm: 586788 1 Capsule(s) PO TID 12/24/2013 12/30/2013 Inactive amoxicillin 500 mg capsule RxNorm: 762765 1 Capsule(s) PO TID 12/24/2013 12/23/2013 Inactive Pristiq 50 mg tablet,extended release RxNorm: 247579 1 Tablet(s) PO BID 12/01/2013 02/23/2015 Inactive Vitamin B-12 1,000 mcg/mL injection solution RxNorm: 784685 1 Milliliter(s) Inj QW 11/10/2013 11/09/2013 Inactive Vitamin B-12 1,000 mcg/mL injection solution RxNorm: 003885 1 Milliliter(s) Inj QW 11/10/2013 12/02/2014 Inactive Myrbetriq 25 mg tablet,extended release RxNorm: 9592262 1 Tablet(s) PO daily 10/20/2013 08/16/2014 Inactive fluconazole 150 mg tablet RxNorm: 928806 1 Tablet(s) PO daily 09/15/2013 09/19/2013 Inactive amoxicillin 875 mg-potassium clavulanate 125 mg tablet RxNorm: 996528 1 Tablet(s) PO BID 09/15/2013 09/24/2013 Inactive Pristiq 50 mg tablet,extended release RxNorm: 637092 1 Tablet(s) PO BID 07/30/2013 11/30/2013 Inactive Topamax 25 mg tablet RxNorm: 119687 4 Tablet(s) PO BID 201201/11/2014 Inactive vitamin B12 200mcg Jolley, Suspension RxNorm: 1 Jolley PO daily 07/27/2013 12/25/2015 Inactive Flonase 50 mcg/actuation nasal spray,suspension RxNorm: 937247 2 Jolley NASAL daily 06/09/2013 07/08/2013 Inactive Carafate 1 gram tablet RxNorm: 066088 1 Tablet(s) PO ac and hs 05/07/2013 05/06/2013 Inactive Carafate 1 gram tablet RxNorm: 269660 1 Tablet(s) PO ac and hs 05/07/2013 05/31/2014 Inactive potassium chloride 10 % Oral Liquid RxNorm: 015673 1 Tablespoon(s) PO daily 03/23/2013 04/08/2014 Inactive folic acid 1 mg tablet RxNorm: 405295 Tablet(s) PO TAKE ONE TABLET BY MOUTH EVERY DAY 01/29/2013 02/14/2014 Inactive naproxen sodium 550 mg tablet RxNorm: 517437 1 Tablet(s) PO BID 01/21/2013 10/26/2014 Inactive hydrocodone 5 mg-acetaminophen 500 mg tablet RxNorm: 738690 1 Tablet(s) PO Q8 PRN 12/25/2012 02/19/2017 Inactive folic acid 1 mg tablet RxNorm: 049522 1 Tablet(s) PO daily 01/28/2013 Inactive cyanocobalamin (vitamin B-12) 1,000 mcg/mL Injection RxNorm: 741228 1 Milliliter(s ) Inj 2 x month inject 1 mL every other week intramuscularly 11/03/2012 11/02/2012 Inactive please provide 25 gauge syringes as well. cyanocobalamin (vitamin B-12) 1,000 mcg/mL Injection RxNorm: 082520 Milliliter(s) Inj 11/03/2012 11/03/2012 Inactive cyanocobalamin (vitamin B-12) 1,000 mcg/mL Injection RxNorm: 743489 1 Milliliter(s ) Inj 2 x month inject 1 mL every other week intramuscularly 11/03/2012 12/25/2015 Inactive please provide 25 gauge syringes as well. cyanocobalamin (vitamin B-12) 1,000 mcg/mL Injection RxNorm: 539061 1 Milliliter(s ) Inj 10/20/2012 10/20/2012 Inactive Vitamin B-12 1,000 mcg/mL Injection RxNorm: 329627 1 Milliliter(s) Inj 09/11/2012 09/11/2012 Inactive Zithromax Z-Juanpablo 250 mg tablet RxNorm: 617753 Tablet(s) PO UD 12/24/2012 Inactive please give z juanpablo hydrochlorothiazide 25 mg tablet RxNorm: 793015 1/2 Tablet(s) PO daily 08/11/2012 No Stop Date Active Vitamin B-12 1,000 mcg/mL Injection RxNorm: 100282 Milliliter(s) Inj 08/11/2012 08/11/2012 Inactive Vitamin D2 50,000 unit capsule RxNorm: 2942797 Capsule(s) PO one weekly for 8 weeks then resume her daily dosing 07/21/2012 07/20/2012 Inactive Vitamin B-12 1,000 mcg/mL Injection RxNorm: 199010 Milliliter(s) Inj 07/21/2012 07/21/2012 Inactive Vitamin D2 50,000 unit capsule RxNorm: 2113861 Capsule(s) PO one weekly for 8 weeks then resume her daily dosing 07/21/2012 09/18/2012 Inactive Diflucan 150 mg tablet RxNorm: 117648 1 Tablet(s) PO daily 09/201107/12/2012 Inactive HyoMax-SR 0.375 mg tablet,extended release RxNorm: 9949599 Tablet(s) PO PRN No Start Date Active Maxalt-TELEPHONE CLERK 10 mg disintegrating tablet RxNorm: 567016 Tablet(s) PO PRN No Start Date Active Vitamin D3 2,000 unit tablet RxNorm: 533885 1 Tablet(s) PO daily No Start Date Active potassium chloride 20 mEq/15 mL oral liquid RxNorm: 895365 2 Tablespoon(s) PO daily No Start Date Active Zetia 10 mg tablet RxNorm: 781266 1 Tablet(s) PO QPM No Start Date Active metoprolol tartrate 50 mg tablet RxNorm: 379267 1 Tablet(s) PO BID No Start Date Active biotin 2,500 mcg tablet RxNorm: 481826 1 Tablet(s) PO daily No Start Date Active Zyrtec 10 mg tablet RxNorm: 2900577 1 Tablet(s) PO PRN No Start Date Active Praluent Pen 75 mg/mL subcutaneous pen injector RxNorm: 0293251 1 Milliliter(s) SQ Q 2 weeks No Start Date Active Fioricet oral RxNorm: 265651 oral No Start Date Active Cholestyramine Susp Light 4 gram Packet RxNorm: 063902 packet PO PRN No Start Date 08/29/2014 Inactive Pristiq 50 mg tablet,extended release RxNorm: 638464 1 Tablet(s) PO daily No Start Date 07/29/2013 Inactive Topamax 25 mg tablet RxNorm: 863743 3 Tablet(s) PO BID No Start Date 07/29/2013 Inactive pantoprazole 40 mg tablet,delayed release RxNorm: 357586 1 Tablet(s) PO daily No Start Date 07/07/2018 Inactive Tricor 145 mg tablet RxNorm: 721988 1 Tablet(s) PO daily No Start Date 12/24/2012 Inactive Zithromax Z-Juanpablo 250 mg tablet RxNorm: 395477 Tablet(s) PO UD No Start Date 08/11/2012 Inactive Fish Oil 1,000 mg capsule RxNorm: 1 Capsule(s) PO BID No Start Date 07/07/2018 Inactive Vitamin D3 2,000 unit capsule RxNorm: 674790 1 Capsule(s) PO daily No Start Date 12/25/2015 Inactive Vagifem 10 mcg vaginal tablet RxNorm: 307583 1-2 Tablet(s) VAG weekly No Start Date 06/10/2016 Inactive Gelnique 10 % (100 mg/gram) transdermal gel packet RxNorm: 257415 3% gel 3 pumps TD daily No Start Date 08/09/2014 Inactive Vitamin D3 5,000 unit tablet RxNorm: 131326 1 Tablet(s) PO daily No Start Date 06/10/2016 Inactive hydrochlorothiazide 25 mg tablet RxNorm: 204278 1 Tablet(s) PO daily No Start Date 08/10/2012 Inactive Flexeril 10 mg tablet RxNorm: 672403 Tablet(s) PO No Start Date 06/10/2016 Inactive 1 q am1/2 with dinner1 hs Valium 5 mg tablet RxNorm: 710858 1 Tablet(s) PO PRN No Start Date 06/26/2017 Inactive amlodipine 5 mg tablet RxNorm: 216681 1 Tablet(s) PO daily No Start Date 03/15/2014 Inactive Phenergan VC-Codeine 6.25 mg-5 mg-10 mg/5 mL syrup RxNorm: 265793 5 Milliliter(s) PO Q6 as needed cough No Start Date 2015 Inactive Zithromax Z-Juanpablo 250 mg tablet RxNorm: 806772 Tablet(s) PO UD No Start Date 07/30/2013 Inactive naproxen 500 mg tablet RxNorm: 232773 Tablet(s) PO BID PRN No Start Date 01/20/2013 Inactive Lovaza 1 gram capsule RxNorm: 164040 2 Capsule(s) PO BID No Start Date 03/04/2018 Inactive hydrocodone 5 mg-acetaminophen 500 mg tablet RxNorm: 661252 1 Tablet(s) PO Q8 PRN No Start Date 12/24/2012 Inactive biotin 1000 mg RxNorm : 2 PO No Start Date 06/11/2016 Inactive aspirin 81 mg tablet,delayed release RxNorm: 210828 1 Tablet(s) PO daily No Start Date 07/07/2018 Inactive Lomotil 2.5 mg-0.025 mg tablet RxNorm: 9507777 Tablet(s) PO PRN No Start Date 04/23/2016 Inactive Ditropan XL 5 mg tablet,extended release RxNorm: 815090 1 Tablet(s) PO daily No Start Date 06/09/2018 Inactive Antara 130 mg capsule RxNorm: 027009 1 Capsule(s) PO daily No Start Date 07/07/2018 Inactive folic acid 1 mg tablet RxNorm: 152768 1 Tablet(s) PO daily No Start Date 11/02/2012 Inactive amlodipine 10 mg tablet RxNorm: 629722 1 Tablet(s) PO daily No Start Date 08/05/2018 Inactive amitriptyline 25 mg tablet RxNorm: 577378 1 Tablet(s) PO QHS dr fonseca No Start Date 03/29/2016 Inactive Gelnique transdermal RxNorm: 753602 transdermal No Start Date 03/25/2016 Inactive Toprol XL 50 mg tablet,extended release RxNorm: 789367 1 Tablet(s) PO daily No Start Date 04/08/2017 Inactive potassium chloride 10 % Oral Liquid RxNorm: 562704 1 Tablespoon(s) PO daily No Start Date 03/22/2013 Inactive Lipitor 10 mg tablet RxNorm: 014950 1 Tablet(s) PO QHS No Start Date 12/24/2012 Inactive diltiazem 120 mg tablet RxNorm: 421662 1 Tablet(s) PO daily No Start Date 08/10/2012 Inactive Combivent Respimat 20 mcg-100 mcg/actuation solution for inhalation RxNorm: 4232984 1-2 Puff(s) INH Q4 PRN No Start Date 07/25/2017 Inactive Medication Administered Medication Codes Instructions Start Date Status ceftriaxone 1 gram solution for injection RxNorm: 5540161 11/11/2014 No longer Active cyanocobalamin (vitamin B-12) 1,000 mcg/mL Injection RxNorm : 554581 Milliliter 11/03/2012 No longer Active cyanocobalamin (vitamin B-12) 1,000 mcg/mL Injection RxNorm : 335792 1Milliliter 10/20/2012 No longer Active Vitamin B-12 1,000 mcg/mL Injection RxNorm: 525811 1Milliliter 09/11/2012 No longer Active Vitamin B-12 1,000 mcg/mL Injection RxNorm: 626208 Milliliter 08/11/2012 No longer Active Vitamin B-12 1,000 mcg/mL Injection RxNorm: 265183 Milliliter 07/21/2012 No longer Active Immunizations Vaccine [...] Observation Code Item Item Code Result Date Comp Metabolic Xvv470 NA 137 mEq/L 11/18/2018 Comp Metabolic Xlp640 K 3.9 mEq/L 11/18/2018 Comp Metabolic Vhp902 CL 105 mEq/L 11/18/2018 Comp Metabolic Uvt237 CO2 26.0 mEq/L 11/18/2018 Comp Metabolic Mym405 ANION GAP 10 11/18/2018 Comp Metabolic Fqu957 GLUCOSE 98 mg/dL 11/18/2018 Comp Metabolic Hfk672 Creat 0.6 mg/dL 11/18/2018 Comp Metabolic Rhs432 eGFR 107 ml/min/1.73m2 11/18/2018 Comp Metabolic Lwn520 BUN 16 mg/dL 11/18/2018 Comp Metabolic Ube476 B/C Ratio 26.2 Ratio 11/18/2018 Comp Metabolic Vhq957 CALCIUM 9.5 mg/dL 11/18/2018 Comp Metabolic Hij893 ALK PHOS 77 U/L 11/18/2018 Comp Metabolic Dpo570 AST(SGOT) 20 U/L 11/18/2018 Comp Metabolic Mvs824 ALT(SGPT) 26 U/L 11/18/2018 Comp Metabolic Ksa157 BILI T 0.4 mg/dL 11/18/2018 Comp Metabolic Ysk449 ALBUMIN 4.4 g/dL 11/18/2018 Comp Metabolic Qah406 TPRO 6.9 g/dL 11/18/2018 Comp Metabolic Dvr921 GLOB 2.6 g/dL 11/18/2018 Comp Metabolic Sjc163 A/G Ratio 1.7 Ratio 11/18/2018 Comp Metabolic Omv516 Osmo 275 mOsmo 11/18/2018 Cbc With Differential [...] 29.2 pg 11/18/2018 Cbc With Differential Ord2 Knox% 7.7 % 11/18/2018 Cbc With Differential Ord2 [...] 1.79 K/ul 11/18/2018 Cbc With Differential Ord2 Knox ABS# 0.5 K/ul 11/18/2018 Cbc With Differential Ord2 Eos ABS# 0.1 K/ul 11/18/2018 Cbc With Differential Ord2 Baso ABS# 0.0 K/ul 11/18/2018 Hepatic Kdc437 ALBUMIN 4.5 g/dL 08/11/2018 Hepatic Zcw167 TPRO 7.3 g/dL 08/11/2018 Hepatic Hrd195 GLOB 2.8 g/dL 08/11/2018 Hepatic Jaf559 A/G Ratio 1.6 Ratio 08/11/2018 Hepatic Ols453 ALK PHOS 89 U/L 08/11/2018 Hepatic Oix244 ALT(SGPT) 31 U/L 08/11/2018 Hepatic Wmi521 AST(SGOT) 20 U/L 08/11/2018 Hepatic Gkl828 BILI T 0.4 mg/dL 08/11/2018 Hepatic Evf043 BILI D 0.1 mg/dL 08/11/2018 Hepatic Tda739 BILI I 0.3 mg/dL 08/11/2018 Lipid Ord30 [...] Ord30 C/HDL 3.7 Ratio 05/01/2018 Comp Metabolic Vle274 NA 140 mEq/L 05/01/2018 Comp Metabolic Jfg730 K 4.1 mEq/L 05/01/2018 Comp Metabolic Zes314 CL 107 mEq/L 05/01/2018 Comp Metabolic Lwq749 CO2 25.0 mEq/L 05/01/2018 Comp Metabolic Qpw109 ANION GAP 12 05/01/2018 Comp Metabolic Bhq807 GLUCOSE 98 mg/dL 05/01/2018 Comp Metabolic Sbt732 Creat 0.7 mg/dL 05/01/2018 Comp Metabolic Qgw881 eGFR 96 ml/min/1.73m2 05/01/2018 Comp Metabolic Pzv566 BUN 14 mg/dL 05/01/2018 Comp Metabolic Xfz804 B/C Ratio 20.9 Ratio 05/01/2018 Comp Metabolic Qko066 CALCIUM 9.5 mg/dL 05/01/2018 Comp Metabolic Hyo844 ALK PHOS 74 U/L 05/01/2018 Comp Metabolic Zqe214 AST(SGOT) 19 U/L 05/01/2018 Comp Metabolic Lzc584 ALT(SGPT) 29 U/L 05/01/2018 Comp Metabolic Lda391 BILI T 0.3 mg/dL 05/01/2018 Comp Metabolic Keb674 ALBUMIN 4.3 g/dL 05/01/2018 Comp Metabolic Lhu544 TPRO 6.7 g/dL 05/01/2018 Comp Metabolic Omi504 GLOB 2.4 g/dL 05/01/2018 Comp Metabolic Awp862 A/G Ratio 1.8 Ratio 05/01/2018 Comp Metabolic Leg891 Osmo 280 mOsmo 05/01/2018 Free T4 Pct295 FREE T4 0.95 ng/dL 02/11/2018 Tsh Ord6 TSH (3rd IS) 2.16 uIU/mL 02/11/2018 Free T4 Zbl839 FREE T4 0.81 ng/dL 11/12/2017 Tsh Ord6 TSH (3rd IS) 1.66 uIU/mL 11/12/2017 Tsh Ord6 hTSH II 1.45 uIU/mL 08/20/2017 Free T4 Ffj293 FREE T4 0.80 ng/dL 08/20/2017 Hepatic Rbk812 ALBUMIN 4.4 g/dL 08/20/2017 Hepatic Uck639 TPRO 6.6 g/dL 08/20/2017 Hepatic Gbl927 GLOB 2.2 g/dL 08/20/2017 Hepatic Kyb822 A/G Ratio 2.0 Ratio 08/20/2017 Hepatic Qmk973 ALK PHOS 50 U/L 08/20/2017 Hepatic Ddn355 ALT(SGPT) 20 U/L 08/20/2017 Hepatic Vom843 AST(SGOT) 20 U/L 08/20/2017 Hepatic Byv505 BILI T 0.3 mg/dL 08/20/2017 Hepatic Sux394 BILI D 0.1 mg/dL 08/20/2017 Hepatic Esv280 BILI I 0.2 mg/dL 08/20/2017 Lipid Ord30 [...] 30.3 pg 02/21/2017 Cbc With Differential Ord2 [place]% 6.9 % 02/21/2017 Cbc With Differential Ord2 [...] 1.82 K/ul 02/21/2017 Cbc With Differential Ord2 [place] ABS# 0.5 K/ul 02/21/2017 Cbc With Differential Ord2 Eos ABS# 0.2 K/ul 02/21/2017 Cbc With Differential Ord2 Baso ABS# 0.0 K/ul 02/21/2017 %Hba1C Svy978 % HbA1c 27420-0 5.8 % 02/21/2017 %Hba1C Lij552 Gluc Ave 120 mg/dL 02/21/2017 Tsh Ord6 hTSH II 1.90 uIU/mL 02/21/2017 Vitamin D 25 Oh Faz6499 VITAMIN D, 25 HYDROXY 42.82 ng/mL Comp Metabolic Edz375 NA 141 mEq/L 02/21/2017 Comp Metabolic Dhp862 K 4.1 mEq/L 02/21/2017 Comp Metabolic Idq434 CL 107 mEq/L 02/21/2017 Comp Metabolic Ibm046 CO2 25.0 mEq/L 02/21/2017 Comp Metabolic Eaw855 ANION GAP 13 02/21/2017 Comp Metabolic Mvz428 GLUCOSE 87 mg/dL 02/21/2017 Comp Metabolic Xny881 Creat 0.8 mg/dL 02/21/2017 Comp Metabolic Yfb767 eGFR 80 ml/min/1.73m2 02/21/2017 Comp Metabolic Vsj267 BUN 20 mg/dL 02/21/2017 Comp Metabolic Biz928 B/C Ratio 25.3 Ratio 02/21/2017 Comp Metabolic Xfm606 CALCIUM 9.5 mg/dL 02/21/2017 Comp Metabolic Rzr212 ALK PHOS 61 U/L 02/21/2017 Comp Metabolic Ufn235 AST(SGOT) 16 U/L 02/21/2017 Comp Metabolic Ntt136 ALT(SGPT) 19 U/L 02/21/2017 Comp Metabolic Fgq334 BILI T 0.3 mg/dL 02/21/2017 Comp Metabolic Zxs975 ALBUMIN 4.4 g/dL 02/21/2017 Comp Metabolic Yfn991 TPRO 7.0 g/dL 02/21/2017 Comp Metabolic Cun842 GLOB 2.6 g/dL 02/21/2017 Comp Metabolic Gnj683 A/G Ratio 1.7 Ratio 02/21/2017 Comp Metabolic Wzf102 Osmo 283 mOsmo 02/21/2017 Lipid Ord30 CHOL 185 mg/dL 02/21/2017 Lipid Ord30 HDL 74.0 mg/dl 02/21/2017 Lipid Ord30 TRIG 148 mg/dL 02/21/2017 Lipid Ord30 LDL 81 mg/dL 02/21/2017 Lipid Ord30 C/HDL 2.5 Ratio 02/21/2017 Hepatic Hao581 ALBUMIN 4.9 g/dL 08/21/2016 Hepatic Okx835 TPRO 7.3 g/dL 08/21/2016 Hepatic Cuw439 GLOB 2.5 g/dL 08/21/2016 Hepatic Moe768 A/G Ratio 2.0 Ratio 08/21/2016 Hepatic Mhp046 ALK PHOS 76 U/L 08/21/2016 Hepatic Ace541 ALT(SGPT) 29 U/L 08/21/2016 Hepatic Nhz305 AST(SGOT) 22 U/L 08/21/2016 Hepatic Omp922 BILI T 0.4 mg/dL 08/21/2016 Hepatic Bvr362 BILI D 0.1 mg/dL 08/21/2016 Hepatic Fly456 BILI I 0.3 mg/dL 08/21/2016 Lipid Ord30 CHOL 302 mg/dL 08/21/2016 Lipid Ord30 HDL 69.0 mg/dl 08/21/2016 Lipid Ord30 TRIG 223 mg/dL 08/21/2016 Lipid Ord30 LDL 188 mg/dL 08/21/2016 Lipid Ord30 C/HDL 4.4 Ratio 08/21/2016 Lipase Jou796 LIPASE 14 U/L 06/04/2016 Cbc With Differential [...] 30.0 pg 06/04/2016 Cbc With Differential Ord2 [place]% 6.5 % 06/04/2016 Cbc With Differential Ord2 [...] 1.50 K/ul 06/04/2016 Cbc With Differential Ord2 [place] ABS# 0.4 K/ul 06/04/2016 Cbc With Differential Ord2 Eos ABS# 0.1 K/ul 06/04/2016 Cbc With Differential Ord2 Baso ABS# 0.0 K/ul 06/04/2016 Comp Metabolic Syf593 NA 135 mEq/L 06/04/2016 Comp Metabolic Frf099 K 3.8 mEq/L 06/04/2016 Comp Metabolic Ilx189 CL 101 mEq/L 06/04/2016 Comp Metabolic Rkb349 CO2 26.0 mEq/L 06/04/2016 Comp Metabolic Kkz280 ANION GAP 12 06/04/2016 Comp Metabolic Oaq173 GLUCOSE 91 mg/dL 06/04/2016 Comp Metabolic Gfv003 Creat 0.8 mg/dL 06/04/2016 Comp Metabolic Xup569 eGFR 74 ml/min/1.73m2 06/04/2016 Comp Metabolic Zel392 BUN 16 mg/dL 06/04/2016 Comp Metabolic Kai308 B/C Ratio 19.0 Ratio 06/04/2016 Comp Metabolic Mbf564 CALCIUM 10.0 mg/dL 06/04/2016 Comp Metabolic Jto995 ALK PHOS 76 U/L 06/04/2016 Comp Metabolic Aeq636 AST(SGOT) 20 U/L 06/04/2016 Comp Metabolic Nzc883 ALT(SGPT) 24 U/L 06/04/2016 Comp Metabolic Dsh035 BILI T 0.3 mg/dL 06/04/2016 Comp Metabolic Dys504 ALBUMIN 4.6 g/dL 06/04/2016 Comp Metabolic Kzy255 TPRO 6.9 g/dL 06/04/2016 Comp Metabolic Ric615 GLOB 2.3 g/dL 06/04/2016 Comp Metabolic Cjk483 A/G Ratio 2.0 Ratio 06/04/2016 Comp Metabolic Ndn965 Osmo 271 mOsmo 06/04/2016 Amylase Ord34 AMYLASE 31 U/L 06/04/2016 Hepatic Fuk767 ALBUMIN 4.3 g/dL 2016 Hepatic Eyg399 TPRO 6.7 g/dL 2016 Hepatic Xvk761 GLOB 2.4 g/dL 2016 Hepatic Afs092 A/G Ratio 1.8 Ratio 2016 Hepatic Nzf710 ALK PHOS 50 U/L 2016 Hepatic Crd011 ALT(SGPT) 20 U/L 2016 Hepatic Kgg067 AST(SGOT) 18 U/L 2016 Hepatic Azr568 BILI T 0.4 mg/dL 2016 Hepatic Dcl107 BILI D 0.1 mg/dL 2016 Hepatic Shq578 BILI I 0.3 mg/dL 2016 Lipid Ord30 CHOL 245 mg/dL 2016 Lipid Ord30 HDL 62.0 mg/dl 2016 Lipid Ord30 TRIG 140 mg/dL 2016 Lipid Ord30 LDL 155 mg/dL 2016 Lipid Ord30 C/HDL 4.0 Ratio 2016 Urine Culture Ucult Preliminary No Growth Day 1 09/15/2015 Urine Culture Ucult Complete No Growth Day 2 09/15/2015 Magnesium Ord90 Mag 1.9 mg/dL 09/07/2015 Comp Metabolic Pby173 NA 139 mEq/L 09/07/2015 Comp Metabolic Uoe046 K 4.4 mEq/L 09/07/2015 Comp Metabolic Itz309 CL 107 mEq/L 09/07/2015 Comp Metabolic Mkn793 CO2 24.0 mEq/L 09/07/2015 Comp Metabolic Mge263 ANION GAP 12 09/07/2015 Comp Metabolic Cxp374 GLUCOSE 91 mg/dL 09/07/2015 Comp Metabolic Trc196 Creat 1.0 mg/dL 09/07/2015 Comp Metabolic Nse296 eGFR 64 ml/min/1.73m2 09/07/2015 Comp Metabolic Cfd589 BUN 31 mg/dL 09/07/2015 Comp Metabolic Qza873 B/C Ratio 32.3 Ratio 09/07/2015 Comp Metabolic Ohs693 CALCIUM 9.7 mg/dL 09/07/2015 Comp Metabolic Hph408 ALK PHOS 56 U/L 09/07/2015 Comp Metabolic Scd147 AST(SGOT) 29 U/L 09/07/2015 Comp Metabolic Amc579 ALT(SGPT) 34 U/L 09/07/2015 Comp Metabolic Wjb312 BILI T 0.3 mg/dL 09/07/2015 Comp Metabolic Exd682 ALBUMIN 4.6 g/dL 09/07/2015 Comp Metabolic Sal320 TPRO 7.0 g/dL 09/07/2015 Comp Metabolic Szs545 GLOB 2.4 g/dL 09/07/2015 Comp Metabolic Aas962 A/G Ratio 1.9 Ratio 09/07/2015 Comp Metabolic Lna433 Osmo 284 mOsmo 09/07/2015 Bili D Ord93 BILI D 0.1 mg/dL 09/07/2015 Bili D Ord93 BILI I 0.2 mg/dL 09/07/2015 Lipid Ord30 CHOL 243 mg/dL 09/07/2015 Lipid Ord30 HDL 75.0 mg/dl 09/07/2015 Lipid Ord30 TRIG 161 mg/dL 09/07/2015 Lipid Ord30 LDL 136 mg/dL 09/07/2015 Lipid Ord30 C/HDL 3.2 Ratio 09/07/2015 Tsh Ord6 hTSH II 2.53 uIU/mL 06/13/2015 Comp Metabolic Gto840 NA 138 mEq/L 06/13/2015 Comp Metabolic Guj951 K 4.0 mEq/L 06/13/2015 Comp Metabolic Qck422 CL 104 mEq/L 06/13/2015 Comp Metabolic Tms468 CO2 26.0 mEq/L 06/13/2015 Comp Metabolic Bhw293 ANION GAP 12 06/13/2015 Comp Metabolic Igb800 GLUCOSE 86 mg/dL 06/13/2015 Comp Metabolic Ddf567 Creat 0.9 mg/dL 06/13/2015 Comp Metabolic Wud765 eGFR 71 ml/min/1.73m2 06/13/2015 Comp Metabolic Mgk153 BUN 18 mg/dL 06/13/2015 Comp Metabolic Lcz428 B/C Ratio 20.5 Ratio 06/13/2015 Comp Metabolic Axk896 CALCIUM 10.1 mg/dL 06/13/2015 Comp Metabolic Ant285 ALK PHOS 52 U/L 06/13/2015 Comp Metabolic Sar567 AST(SGOT) 18 U/L 06/13/2015 Comp Metabolic Eka934 ALT(SGPT) 21 U/L 06/13/2015 Comp Metabolic Uca342 BILI T 0.3 mg/dL 06/13/2015 Comp Metabolic Ngv828 ALBUMIN 4.7 g/dL 06/13/2015 Comp Metabolic Mwt871 TPRO 6.9 g/dL 06/13/2015 Comp Metabolic Ehc200 GLOB 2.2 g/dL 06/13/2015 Comp Metabolic Nbt541 A/G Ratio 2.1 Ratio 06/13/2015 Comp Metabolic Jul402 Osmo 277 mOsmo 06/13/2015 %Hba1C Zhj760 % HbA1c 42444-1 5.7 % 06/13/2015 %Hba1C Hun846 Gluc Ave 117 mg/dL 06/13/2015 Cbc With [...] 14.7 % 06/13/2015 Vitamin D 25 Oh Ahk8368 VITAMIN D, 25 HYDROXY 41.85 ng/mL Cbc [...] Ord2 RDW 14.5 % 04/18/2015 Comp Metabolic Ngf125 NA 137 mEq/L 04/18/2015 Comp Metabolic Ywn979 K 4.0 mEq/L 04/18/2015 Comp Metabolic Fdj909 CL 105 mEq/L 04/18/2015 Comp Metabolic Pyq877 CO2 23.0 mEq/L 04/18/2015 Comp Metabolic Etm988 ANION GAP 13 04/18/2015 Comp Metabolic Hrd849 GLUCOSE 73 mg/dL 04/18/2015 Comp Metabolic Pjm132 Creat 0.9 mg/dL 04/18/2015 Comp Metabolic Arf689 eGFR 72 ml/min/1.73m2 04/18/2015 Comp Metabolic Exa085 BUN 17 mg/dL 04/18/2015 Comp Metabolic Ult083 B/C Ratio 19.5 Ratio 04/18/2015 Comp Metabolic Oyz927 CALCIUM 9.7 mg/dL 04/18/2015 Comp Metabolic Gzo969 ALK PHOS 55 U/L 04/18/2015 Comp Metabolic Egk639 AST(SGOT) 28 U/L 04/18/2015 Comp Metabolic Zfo320 ALT(SGPT) 27 U/L 04/18/2015 Comp Metabolic Ggn473 BILI T 0.3 mg/dL 04/18/2015 Comp Metabolic Ohs154 ALBUMIN 4.5 g/dL 04/18/2015 Comp Metabolic Pps656 TPRO 7.0 g/dL 04/18/2015 Comp Metabolic Nsx787 GLOB 2.5 g/dL 04/18/2015 Comp Metabolic Xkm845 A/G Ratio 1.8 Ratio 04/18/2015 Comp Metabolic Pnl271 Osmo 274 mOsmo 04/18/2015 Cbc With Differential [...] Ord2 RDW 15.0 % 03/22/2015 Comp Metabolic Jnc061 NA 136 mEq/L 03/22/2015 Comp Metabolic Aiy789 K 4.1 mEq/L 03/22/2015 Comp Metabolic Ngi505 CL 102 mEq/L 03/22/2015 Comp Metabolic Ezv073 CO2 26.0 mEq/L 03/22/2015 Comp Metabolic Pdm171 ANION GAP 12 03/22/2015 Comp Metabolic Uql271 GLUCOSE 82 mg/dL 03/22/2015 Comp Metabolic Xik169 Creat 0.9 mg/dL 03/22/2015 Comp Metabolic Osc755 eGFR 69 ml/min/1.73m2 03/22/2015 Comp Metabolic Wni070 BUN 30 mg/dL 03/22/2015 Comp Metabolic Wal130 B/C Ratio 33.3 Ratio 03/22/2015 Comp Metabolic Zan379 CALCIUM 10.3 mg/dL 03/22/2015 Comp Metabolic Qpn163 ALK PHOS 56 U/L 03/22/2015 Comp Metabolic Ncu789 AST(SGOT) 17 U/L 03/22/2015 Comp Metabolic How596 ALT(SGPT) 17 U/L 03/22/2015 Comp Metabolic Pjs556 BILI T 0.3 mg/dL 03/22/2015 Comp Metabolic Cbn601 ALBUMIN 4.7 g/dL 03/22/2015 Comp Metabolic Roc706 TPRO 7.2 g/dL 03/22/2015 Comp Metabolic Fmh274 GLOB 2.5 g/dL 03/22/2015 Comp Metabolic Beb018 A/G Ratio 1.9 Ratio 03/22/2015 Comp Metabolic Iqx319 Osmo 277 mOsmo 03/22/2015 FREE T4 7657117 FREE T4 1.24 NG/DL 10/18/2014 CHEM 14 2364134 AST 14 U/L 10/15/2014 CHEM 14 6719914 ALT 15 IU/L 10/15/2014 CHEM 14 5821021 BUN 23 MG/DL 10/15/2014 CHEM 14 5332899 ALBUMIN 4.8 GM/DL 10/15/2014 CHEM 14 4279367 CHLORIDE 105 MMOL/L 10/15/2014 CHEM 14 1792157 BILI TOT 0.3 MG/DL 10/15/2014 CHEM 14 3216075 ALK PHOS 60 U/L 10/15/2014 CHEM 14 7081617 SODIUM 140 MMOL/L 10/15/2014 CHEM 14 5504974 CREATININE 0.89 MG/DL 10/15/2014 CHEM 14 8457618 CALCIUM 10.0 MG/DL 10/15/2014 CHEM 14 3730852 POTASSIUM 3.7 MMOL/L 10/15/2014 CHEM 14 5894788 PROT TOT 7.2 GM/DL 10/15/2014 CHEM 14 6054396 GLUCOSE 97 MG/DL 10/15/2014 CHEM 14 7054546 BICARB 25 MMOL/L 10/15/2014 CHEM 14 5770933 ANION GAP 10 MEQ/L 10/15/2014 CBC 3531503 WBC 6.7 10e9/L 10/15/2014 CBC 8848802 RBC 4.49 10e12/L 10/15/2014 CBC 7789428 HGB 13.4 g/dL 10/15/2014 CBC 2187799 HCT DET 40.2 % 10/15/2014 CBC 1167892 MCV 89.5 fL 10/15/2014 CBC 0224117 MCH 29.8 pg 10/15/2014 CBC 0748755 MCHC 33.3 g/dL 10/15/2014 CBC 7334025 PLT 311 10e9/L 10/15/2014 CBC 1295377 MPV 10.7 fL 10/15/2014 CBC 1278327 BESSY % 63.6 % 10/15/2014 CBC 3444414 LY % 26.7 % 10/15/2014 CBC 8905780 MON % 6.6 % 10/15/2014 CBC 5871825 EOS % 2.8 % 10/15/2014 CBC 5879106 BASO % 0.3 % 10/15/2014 CBC 2617133 RDW 13.4 % 10/15/2014 CBC 4019739 ABS BESSY 4.26 10e9/L 10/15/2014 CBC 1934018 ABS LYMPH 1.79 10e9/L 10/15/2014 CBC 7683519 ABS MONO 0.44 10e9/L 10/15/2014 CBC 8004730 ABS EOS 0.19 10e9/L 10/15/2014 CBC 3676700 ABS BASO 0.02 10e9/L 10/15/2014 CBC 1303800 RDW-SD 43.2 fL 10/15/2014 A1C HPLC 6270106 A1C HPLC 38840-4 5.7 % 10/15/2014 TSH 5634460 TSH 4.083 uIU/ML 10/15/2014 GFR CALC 0793855 GFR AA >60 ML/MIN 10/15/2014 GFR CALC 9077767 GFR NON-AA >60 ML/MIN 10/15/2014 VIT D TOTL 8480288 VIT D TOTL 36 NG/ML 10/15/2014 GFR CALC 1965497 GFR AA >60 ML/MIN 06/23/2014 GFR CALC 0617242 GFR NON-AA >60 ML/MIN 06/23/2014 CHEM 14 4578111 AST 21 U/L 06/23/2014 CHEM 14 1642059 ALT 24 IU/L 06/23/2014 CHEM 14 6641550 BUN 18 MG/DL 06/23/2014 CHEM 14 5879854 ALBUMIN 4.7 GM/DL 06/23/2014 CHEM 14 20280313 CHLORIDE 109 MMOL/L 06/23/2014 CHEM 14 7091658 BILI TOT 0.3 MG/DL 06/23/2014 CHEM 14 7652045 ALK PHOS 53 U/L 06/23/2014 CHEM 14 4079777 SODIUM 140 MMOL/L 06/23/2014 CHEM 14 0283489 CREATININE 0.86 MG/DL 06/23/2014 CHEM 14 1599227 CALCIUM 10.2 MG/DL 06/23/2014 CHEM 14 2842815 POTASSIUM 3.9 MMOL/L 06/23/2014 CHEM 14 3668352 PROT TOT 6.9 GM/DL 06/23/2014 CHEM 14 4163192 GLUCOSE 87 MG/DL 06/23/2014 CHEM 14 5446224 BICARB 24 MMOL/L 06/23/2014 CHEM 14 3232784 ANION GAP 7 MEQ/L 06/23/2014 TSH 5262217 TSH 1.417 uIU/ML 06/23/2014 FREE T4 3380282 FREE T4 1.21 NG/DL 06/23/2014 TSH 2801307 TSH 3.399 uIU/ML 12/16/2013 CBC 7192610 WBC 6.4 10e9/L 12/15/2013 CBC 7964348 RBC 4.34 10e12/L 12/15/2013 CBC 4686348 HGB 12.9 g/dL 12/15/2013 CBC 6302996 HCT DET 39.3 % 12/15/2013 CBC 9130146 MCV 90.6 fL 12/15/2013 CBC 8223895 MCH 29.7 pg 12/15/2013 CBC 7414671 MCHC 32.8 g/dL 12/15/2013 CBC 7279287 PLT 292 10e9/L 12/15/2013 CBC 9694765 MPV 10.8 fL 12/15/2013 CBC 6275501 BESSY % 63.6 % 12/15/2013 CBC 7067654 LY % 25.7 % 12/15/2013 CBC 5041524 MON % 7.1 % 12/15/2013 CBC 4058685 EOS % 3.3 % 12/15/2013 CBC 6043070 BASO % 0.3 % 12/15/2013 CBC 6905581 RDW 13.4 % 12/15/2013 CBC 0130902 ABS BESSY 4.07 10e9/L 12/15/2013 CBC 3416141 ABS LYMPH 1.64 10e9/L 12/15/2013 CBC 1572765 ABS MONO 0.45 10e9/L 12/15/2013 CBC 4533915 ABS EOS 0.21 10e9/L 12/15/2013 CBC 1568743 ABS BASO 0.02 10e9/L 12/15/2013 CBC 4840864 RDW-SD 43.5 fL 12/15/2013 CHEM 14 3769477 AST 19 U/L 12/15/2013 CHEM 14 0290277 ALT 23 IU/L 12/15/2013 CHEM 14 5644819 BUN 23 MG/DL 12/15/2013 CHEM 14 8038613 ALBUMIN 4.7 GM/DL 12/15/2013 CHEM 14 9072243 CHLORIDE 108 MMOL/L 12/15/2013 CHEM 14 0262901 BILI TOT 0.3 MG/DL 12/15/2013 CHEM 14 4636305 ALK PHOS 58 U/L 12/15/2013 CHEM 14 9902745 SODIUM 139 MMOL/L 12/15/2013 CHEM 14 9099071 CREATININE 0.92 MG/DL 12/15/2013 CHEM 14 6708952 CALCIUM 10.0 MG/DL 12/15/2013 CHEM 14 9074158 POTASSIUM 4.0 MMOL/L 12/15/2013 CHEM 14 8207808 PROT TOT 7.1 GM/DL 12/15/2013 CHEM 14 4351272 GLUCOSE 82 MG/DL 12/15/2013 CHEM 14 4840215 BICARB 24 MMOL/L 12/15/2013 CHEM 14 8030293 ANION GAP 7 MEQ/L 12/15/2013 GFR CALC 2491411 GFR AA >60 ML/MIN 12/15/2013 GFR CALC 8746667 GFR NON-AA >60 ML/MIN 12/15/2013 URINALYSIS NONAUTO W/O SCOPE 50642 Specific [place] 1.025 DateTime(Free Text in Aprima) URINALYSIS NONAUTO W/O SCOPE 28498 PH 5 DateTime(Free Text in Aprima) URINALYSIS NONAUTO W/O SCOPE 27943 GLUCOSE neg DateTime( Free Text in Aprima) URINALYSIS NONAUTO W/O SCOPE 74905 Protein neg DateTime( Free Text in Aprima) URINALYSIS NONAUTO W/O SCOPE 98919 Blood neg DateTime(Free Text in Aprima) URINALYSIS NONAUTO W/O SCOPE 53571 Bilirubin neg DateTime(Free Text in Aprima) URINALYSIS NONAUTO W/O SCOPE 17623 Ketones neg DateTime( Free Text in Aprima) URINALYSIS NONAUTO W/O SCOPE 13222 Urobilinogen neg DateTime(Free Text in Apr) URINALYSIS NONAUTO W/O SCOPE 71880 Nitrite neg DateTime( Free Text in Apr) URINALYSIS NONAUTO W/O SCOPE 81380 Leukocytes neg DateTime(Free Text in Apr) Review [...] lips 10/02/2018 None Full Exam - General 1994 Ears/Nose/Throat lips/teeth/gingiva Overall: normal dentition 10/02/2018 None [...] lips 11/12/2017 None Full Exam - General 1995 Ears/Nose/Throat lips/teeth/gingiva Overall: normal dentition 11/12/2017 None [...] lips 04/08/2017 None Full Exam - General 1995 Ears/Nose/Throat lips/teeth/gingiva Overall: normal dentition 04/08/2017 None [...] clear 05/10/2015 None Full Exam - General 1995 Ears/Nose/Throat oral cavity/pharynx/larynx Overall: oropharyngeal mucosa clear 05/10/2015 None Full Exam - General 1994 Ears/Nose/Throat oral cavity/pharynx/larynx Overall: hypopharynx benign 05/10/2015 None Full Exam - General 1995 Ears/Nose/Throat oral cavity/pharynx/larynx Overall: no masses 05/10/2015 [...] vein procedure that will be perform in [place] in May. Full Exam - General 1994 [...] 1995 Ears/Nose/Throat oral cavity/pharynx/larynx Overall: no masses 03/16/2014 [...] sounds 04/20/2013 None Full Exam - General 1995 Cardiovascular auscultation of heart Overall: no murmurs 04/20/2013 None Full Exam - General 1995 Abdomen abdominal exam Overall: no tenderness 04/20/2013 None Full Exam - General 1995 Constitutional general appearance Overall: well developed 04/20/2013 None Full Exam - General 1995 Constitutional general appearance Overall: in no acute distress 04/20/2013 None Full Exam - General 1995 Constitutional general appearance Overall: well nourished 04/20/2013 None Full Exam - General 1995 Eyes conjunctiva /eyelids Overall: conjunctiva clear 04/20/2013 None Full Exam - General 1995 Eyes conjunctiva /eyelids Overall: cornea clear 04/20/2013 [...] asymmetric 04/20/2013 None Full Exam - General 1995 Neurologic deep tendon reflexes Overall: deep tendon [...] distress 03/23/2013 None Full Exam - General 1995 Constitutional general appearance Overall: well nourished 03/23/2013 None Full Exam - General 1995 Eyes conjunctiva /eyelids Overall: conjunctiva clear 03/23/2013 None Full Exam - General 1994 Eyes conjunctiva /eyelids Overall: cornea clear 03/23/2013 None Full Exam - General 1995 Eyes conjunctiva /eyelids Overall: eyelids normal 03/23/2013 [...] clear 12/25/2012 None Full Exam - General 1995 Ears/Nose/Throat [...] tenderness 12/25/2012 None Full Exam - General 1994 [...] mass 12/25/2012 None Full Exam - General 1995 Chest/Breast breast and axillae palpation Lower outer [...] 1994 Ears/Nose/Throat oral cavity/pharynx/larynx Overall: no masses 10/20/2012 None Full Exam - General 1995 Respiratory auscultation Overall: breath sounds clear bilaterally 10/20/2012 None Full Exam - General 1995 Respiratory respiratory effort/rhythm Overall: no retractions 10/20/2012 None Full Exam - General 1995 Respiratory respiratory effort/rhythm Overall: normal rate 10/20/2012 None Full Exam - General 1995 Cardiovascular extremities Overall: no clubbing 10/20/2012 None Full Exam - General 1995 Cardiovascular auscultation of heart Overall: regular rate 10/20/2012 None Full Exam - General 1995 Cardiovascular auscultation of heart Overall: normal heart sounds 10/20/2012 None Full Exam - General 1995 Cardiovascular auscultation of heart Overall: no murmurs 10/20/2012 None Full Exam - General 1994 Abdomen abdominal exam Overall: no tenderness 10/20/2012 None Full Exam - General 1995 Abdomen [...] 1995 Ears/Nose/Throat oral cavity/pharynx/larynx Overall: no masses 08/11/2012 [...] Procedure Codes Date IMMUNIZATION ADMIN CPT -4: 21620 06/05/2018 FLU VAC NO PRSV 4 ZONIA 3 YRS+ CPT-4: 87063 06/05/2018 IMMUNIZATION ADMIN CPT -4: 89157 06/19/2017 FLU VAC NO PRSV 4 ZONIA 3 YRS+ CPT-4: 75273 06/19/2017 URINALYSIS NONAUTO W/O SCOPE CPT-4: 18865 09/08/2015 IMMUNIZATION ADMIN CPT -4: 66137 03/30/2015 ADACEL TDAP VACCINE 7 YRS/> IM CPT-4: 67354 03/30/2015 URINALYSIS NONAUTO W/O SCOPE CPT-4: 81077 03/22/2015 THER/PROPH/DIAG INJ SC/IM CPT-4: 96816 11/11/2014 ROCEPHIN, PER 250 MG CPT-4: J0696 11/11/2014 ROUTINE VENIPUNCTURE CPT-4: 22640 10/15/2014 HgbA1c CPT-4: 08406 10/15/2014 CBC (COMPLETE CBC W/AUTO DIFF WBC) CPT-4: 07116 10/15/2014 CHEM 14 (COMPREHEN METABOLIC PANEL) CPT-4: 94718 10/15/2014 TSH (ASSAY THYROID STIM HORMONE) CPT-4: 68940 10/15/2014 VIT D TOTL (VITAMIN D 25 HYDROXY) CPT-4: 90874 10/15/2014 FREE T4 (ASSAY OF FREE THYROXINE) CPT-4: 85758 10/15/2014 ROUTINE VENIPUNCTURE CPT-4: 31019 06/23/2014 CHEM 14 (COMPREHEN METABOLIC PANEL) CPT-4: 59454 06/23/2014 TSH (ASSAY THYROID STIM HORMONE) CPT-4: 96311 06/23/2014 FREE T4 (ASSAY OF FREE THYROXINE) CPT-4: 11304 06/23/2014 URINALYSIS NONAUTO W/O SCOPE CPT-4: 57675 12/15/2013 ROUTINE VENIPUNCTURE CPT-4: 60706 12/15/2013 THER/PROPH/DIAG INJ SC/IM CPT-4: 40651 11/03/2012 VITAMIN B12 INJECTION CPT-4: J3420 11/03/2012 THER/PROPH/DIAG INJ SC/IM CPT-4: 99895 10/20/2012 VITAMIN B12 INJECTION CPT-4: J3420 10/20/2012 VITAMIN B12 INJECTION CPT-4: J3420 09/11/2012 THER/PROPH/DIAG INJ SC/IM CPT-4: 77004 09/11/2012 THER/PROPH/DIAG INJ SC/IM CPT-4: 16280 08/11/2012 VITAMIN B12 INJECTION CPT-4: J3420 08/11/2012 THER/PROPH/DIAG INJ SC/IM CPT-4: 80485 07/21/2012 VITAMIN B12 INJECTION CPT-4: J3420 07/21/2012 Vital Signs Date Vital 11/18/2018 Blood Pressure 1: 136/82 Code : 8480-6 BMI: 33.1 Code : 31240-3 Heart Rate 1 : 75 bpm Height: 5'6" SpO2: 98% Temperature: 36.4 (C) / 97.5 (F) Weight: 205 lbs 10/02/2018 Blood Pressure 1: 128/78 Code : 8480-6 BMI: 32.0 Code : 14014-4 Heart Rate 1 : 73 bpm Height: 5'6" SpO2: 98% Weight: 198 lbs 08/06/2018 Blood Pressure 1: 116/78 Code : 8480-6 BMI: 32.3 Code : 11529-3 Heart Rate 1 : 71 bpm Height: 5'6" SpO2: 98% Weight: 200 lbs 07/08/2018 Blood Pressure 1: 128/70 Code : 8480-6 BMI: 32.4 Code : 43541-7 Heart Rate 1 : 76 bpm Height: 5'6" SpO2: 96% Weight: 201 lbs 02/11/2018 Blood Pressure 1: 122/84 Code : 8480-6 BMI: 32.4 Code : 72697-9 Heart Rate 1 : 71 bpm Height: 5'6" SpO2: 97% Weight: 201 lbs 11/12/2017 Blood Pressure 1: 130/82 Code : 8480-6 BMI: 32.3 Code : 42517-1 Height: 5'6" Weight: 200 lbs 08/20/2017 Blood Pressure 1: 126/78 Code : 8480-6 BMI: 32.3 Code : 51343-6 Heart Rate 1 : 66 bpm Height: 5'6" SpO2: 98% Weight: 200 lbs 06/24/2017 Blood Pressure 1: 134/78 Code : 8480-6 BMI: 34.2 Code : 24833-8 Heart Rate 1 : 71 bpm Height: 5'6" SpO2: 95% Weight: 212 lbs 05/22/2017 Blood Pressure 1: 122/78 Code : 8480-6 BMI: 33.9 Code : 73071-7 Heart Rate 1 : 76 bpm Height: 5'6" SpO2: 97% Weight: 210 lbs 05/10/2017 Blood Pressure 1: 130/84 Code : 8480-6 BMI: 34.1 Code : 81355-1 Heart Rate 1 : 90 bpm Height: 5'6" SpO2: 98% Temperature: 36.9 (C) / 98.5 (F) Weight: 211 lbs 04/08/2017 Blood Pressure 1: 132/78 Code : 8480-6 BMI: 34.4 Code : 08175-9 Heart Rate 1 : 72 bpm Height: 5'6" SpO2: 97% Weight: 213 lbs 02/20/2017 Blood Pressure 1: 130/90 Code : 8480-6 BMI: 33.9 Code : 30898-1 Heart Rate 1 : 74 bpm Height: 5'6" SpO2: 98% Weight: 210 lbs 11/21/2016 Blood Pressure 1: 132/74 Code : 8480-6 BMI: 34.2 Code : 10102-8 Heart Rate 1 : 66 bpm Height: 5'6" SpO2: 97% Weight: 212 lbs 08/29/2016 Blood Pressure 1: 136/82 Code : 8480-6 BMI: 33.7 Code : 23286-0 Heart Rate 1 : 70 bpm Height: 5'6" Respiratory Rate: 18 bpm SpO2: 98% Weight: 209 lbs 07/05/2016 Blood Pressure 1: 142/76 Code : 8480-6 BMI: 33.2 Code : 22420-0 Heart Rate 1 : 73 bpm Height: 5'6" SpO2: 98% Weight: 206 lbs 06/11/2016 Blood Pressure 1: 130/82 Code : 8480-6 BMI: 33.4 Code : 84380-6 Heart Rate 1 : 76 bpm Height: 5'6" SpO2: 97% Weight: 207 lbs 06/04/2016 Blood Pressure 1: 134/80 Code : 8480-6 BMI: 33.4 Code : 73095-0 Heart Rate 1 : 71 bpm Height: 5'6" SpO2: 98% Weight: 207 lbs 04/10/2016 Blood Pressure 1: 124/80 Code : 8480-6 BMI: 34.4 Code : 63705-3 Heart Rate 1 : 76 bpm Height: 5'6" SpO2: 96% Weight: 213 lbs 03/26/2016 Blood Pressure 1: 118/74 Code : 8480-6 BMI: 34.4 Code : 20182-0 Heart Rate 1 : 72 bpm Height: 5'6" SpO2: 98% Weight: 213 lbs 01/23/2016 Blood Pressure 1: 134/76 Code : 8480-6 BMI: 33.7 Code : 26470-0 Heart Rate 1 : 76 bpm Height: 5'6" SpO2: 97% Weight: 209 lbs 12/26/2015 Blood Pressure 1: 116/76 Code : 8480-6 BMI: 33.4 Code : 07471-2 Heart Rate 1 : 78 bpm Height: 5'6" SpO2: 98% Weight: 207 lbs 11/02/2015 Blood Pressure 1: 118/80 Code : 8480-6 BMI: 33.6 Code : 81622-5 Heart Rate 1 : 75 bpm Height: 5'6" SpO2: 95% Weight: 208 lbs 09/13/2015 Blood Pressure 1: 140/82 Code : 8480-6 BMI: 33.6 Code : 89763-6 Heart Rate 1 : 92 bpm Height: 5'6" SpO2: 96% Weight: 208 lbs 09/07/2015 Blood Pressure 1: 140/82 Code : 8480-6 BMI: 33.4 Code : 39793-0 Heart Rate 1 : 85 bpm Height: 5'6" SpO2: 95% Weight: 207 lbs 08/16/2015 Blood Pressure 1: 138/84 Code : 8480-6 BMI: 32.9 Code : 72343-9 Heart Rate 1 : 87 bpm Height: 5'6" SpO2: 97% Weight: 204 lbs 06/13/2015 Blood Pressure 1: 130/82 Code : 8480-6 BMI: 33.1 Code : 08045-1 Heart Rate 1 : 84 bpm Height: 5'6" SpO2: 96% Weight: 205 lbs 05/10/2015 Blood Pressure 1: 118/70 Code : 8480-6 BMI: 32.9 Code : 36244-3 Heart Rate 1 : 77 bpm Height: 5'6" SpO2: 97% Weight: 204 lbs 03/22/2015 Blood Pressure 1: 118/76 Code : 8480-6 BMI: 32.0 Code : 22105-4 Heart Rate 1 : 88 bpm Height: 5'6" Temperature: 36.2 (C) / 97.2 (F) Weight: 198 lbs 01/17/2015 Blood Pressure 1: 120/80 Code : 8480-6 BMI: 32.6 Code : 11111-0 Heart Rate 1 : 88 bpm Height: 5'6" Weight: 202 lbs 11/22/2014 Blood Pressure 1: 118/82 Code : 8480-6 BMI: 31.8 Code : 08510-1 Heart Rate 1 : 72 bpm Height: 5'6" Weight: 197 lbs 10/27/2014 Blood Pressure 1: 130/82 Code : 8480-6 BMI: 32.0 Code : 34962-2 Heart Rate 1 : 86 bpm Height: 5'6" SpO2: 97% Weight: 198 lbs 10/15/2014 Blood Pressure 1: 118/82 Code : 8480-6 BMI: 32.1 Code : 96390-4 Heart Rate 1 : 100 bpm Height: 5'6" Weight: 199 lbs 09/30/2014 Blood Pressure 1: 118/86 Code : 8480-6 BMI: 32.0 Code : 34227-5 Heart Rate 1 : 80 bpm Height: 5'6" Temperature: 35.7 (C) / 96.3 (F) Weight: 198 lbs 07/14/2014 Blood Pressure 1: 116/80 Code : 8480-6 BMI: 32.9 Code : 63900-3 Heart Rate 1 : 80 bpm Height: 5'6" Weight: 204 lbs 06/23/2014 Blood Pressure 1: 128/88 Code : 8480-6 BMI: 33.7 Code : 59001-0 Height: 5'6" Weight: 209 lbs 04/09/2014 Blood Pressure 1: 138/82 Code : 8480-6 Heart Rate 1: 90 bpm SpO2: 97% Temperature: 35.8 (C) / 96.5 (F) Weight: 210 lbs 03/16/2014 Blood Pressure 1: 116/80 Code : 8480-6 BMI: 34.1 Code : 05049-8 Heart Rate 1 : 88 bpm Height: 5'6" Weight: 211 lbs 01/12/2014 Blood Pressure 1: 124/70 Code : 8480-6 BMI: 33.4 Code : 87757-8 Heart Rate 1 : 76 bpm Height: 5'6" Weight: 207 lbs 12/15/2013 Blood Pressure 1: 144/100 Code: 8480-6 Blood Pressure 2: 124/90 Code: 8480-6 Heart Rate 1: 72 bpm Weight: 215 lbs 10/20/2013 Blood Pressure 1: 130/84 Code : 8480-6 BMI: 34.5 Code : 72162-0 Heart Rate 1 : 84 bpm Height: 5'6" Weight: 214 lbs 09/15/2013 Blood Pressure 1: 128/90 Code : 8480-6 BMI: 34.9 Code : 04242-1 Heart Rate 1 : 88 bpm Height: 5'6" Temperature: 36.5 (C) / 97.7 (F) Weight: 216 lbs 07/27/2013 Blood Pressure 1: 138/90 Code : 8480-6 BMI: 34.4 Code : 35932-9 Heart Rate 1 : 88 bpm Height: 5'6" Weight: 213 lbs 06/09/2013 Blood Pressure 1: 138/92 Code : 8480-6 Heart Rate 1: 88 bpm Weight: 04/20/2013 Blood Pressure 1: 142/92 Code : 8480-6 BMI: 34.4 Code : 07068-9 Heart Rate 1 : 88 bpm Height: 5'6" Weight: 213 lbs 03/23/2013 Blood Pressure 1: 116/84 Code : 8480-6 BMI: 34.1 Code : 45340-9 Heart Rate 1 : 76 bpm Height: 5'6" Weight: 211 lbs 01/21/2013 Blood Pressure 1: 130/88 Code : 8480-6 BMI: 34.5 Code : 95252-5 Heart Rate 1 : 80 bpm Height: 5'6" Weight: 214 lbs 12/25/2012 Blood Pressure 1: 112/70 Code : 8480-6 Heart Rate 1: 84 bpm Respiratory Rate : 20 bpm Weight: 214 lbs 8 oz 10/20/2012 Blood Pressure 1: 124/80 Code : 8480-6 BMI: 34.4 Code : 82847-9 Heart Rate 1 : 84 bpm Height: 5'6" Temperature: 36.7 (C) / 98.0 (F) Weight: 213 lbs 08/11/2012 Blood Pressure 1: 116/80 Code : 8480-6 BMI: 33.9 Code : 90020-3 Heart Rate 1 : 76 bpm Height: 5'6" Respiratory Rate: 20 bpm Weight: 210 lbs 07/10/2012 Blood Pressure 1: 110/76 Code : 8480-6 BMI: 46.5 Code : 94185-1 Heart Rate 1 : 84 bpm Height: [...] of Symptom _ weeks ago 09/30/2014 over [place] holiday cough Pertinent Findings chest discomfort 09/30/2014 [...] of Symptom _ weeks ago 09/30/2014 around [place] neck pain Location in the lower cervical/ [...] 07/10/2012 None gait abnormality Onset of Symptom 112 years ago 07/10/[address] Villaseñor- last [...] data Encounters Encounter Performer Location Codes Date ([id number]) 68923 EST. PATIENT, LEVEL IV Diagnosis: Generalized abdominal pain[ICD10: R10.84] Diagnosis: Diarrhea, unspecified[ICD10: R19.7] Mira Ledesma MD, [facility] CPT-4: 34942 11/18/2018 ([id number]) 74339 EST. PATIENT, LEVEL IV Diagnosis: Essential (primary) hypertension[ICD10: I10] Diagnosis: Functional diarrhea[ICD10: K59.1] Diagnosis: Generalized anxiety disorder[ICD10: F41.1] Diagnosis: Major depressive disorder, recurrent, moderate[ICD10: F33.1] Caty Ledesma MD, [facility] CPT-4: 24972 10/02/2018 [id number]) 57214 EST. PATIENT, LEVEL IV Diagnosis: Essential (primary) hypertension[ICD10: I10] Diagnosis: Generalized anxiety disorder[ICD10: F41.1] Diagnosis: Slow transit constipation[ICD10: K59.01] Diagnosis: Other fatigue[ICD10: R53.83] Diagnosis: Nontoxic multinodular goiter[ICD10: E04.2] Caty Ledesma MD, [facility] CPT-4: 50950 08/06/2018 ([id number]) 93187 EST. PATIENT, LEVEL IV Diagnosis: Essential (primary) hypertension[ICD10: I10] Diagnosis: Major depressive disorder, recurrent, moderate[ICD10: F33.1] Diagnosis: Generalized anxiety disorder[ICD10: F41.1] Caty Ledesma MD, [facility] CPT-4: 78105 07/08/2018 ([id number]) 85670 EST. PATIENT, LEVEL IV Diagnosis: Nontoxic multinodular goiter[ICD10: E04.2] Diagnosis: Mixed hyperlipidemia[ICD10: E78.2] Diagnosis: Essential (primary) hypertension[ICD10: I10] Caty Ledesma MD, [facility] CPT-4: 80823 02/11/2018 ([id number]) 57645 EST. PATIENT, LEVEL IV Diagnosis: Nontoxic multinodular goiter[ICD10: E04.2] Diagnosis: Essential (primary) hypertension[ICD10: I10] Diagnosis: Other fatigue[ICD10: R53.83] Caty Ledesma MD, [facility] CPT- 4: 93067 11/12/2017 ([id number]) 89211 EST. PATIENT, LEVEL IV Diagnosis: Nontoxic multinodular goiter[ICD10: E04.2] Diagnosis: Major depressive disorder, recurrent, moderate[ICD10: F33.1] Diagnosis: Generalized anxiety disorder[ICD10: F41.1] Diagnosis: Essential (primary) hypertension[ICD10: I10] Caty Ledesma MD, [facility] CPT-4: 42711 08/20/2017 ([id number]) 42213 EST. PATIENT, LEVEL III Diagnosis: Acute recurrent maxillary sinusitis[ICD10: J01.01] Diagnosis: Encounter for other preprocedural examination[ICD10: Z01.818] Mira Ledesma MD, [facility] CPT-4: 06739 06/24/2017 ([id number]) 16506 EST. PATIENT, LEVEL IV Diagnosis: Acute recurrent frontal sinusitis[ICD10: J01.11] Diagnosis: Type 2 diabetes mellitus without complications[ICD10: E11.9] Diagnosis: Essential (primary) hypertension[ICD10: I10] Caty Ledesma MD, [facility] CPT-4: 53167 05/22/2017 ([id number]) 36638 EST. PATIENT, LEVEL III Diagnosis: Acute recurrent maxillary sinusitis[ICD10: J01.01] Diagnosis: Cough[ICD10: R05] Mira Ledesma MD, [facility] CPT-4: 65067 05/10/2017 ([id number]) 86563 EST. PATIENT, LEVEL IV Diagnosis: Generalized anxiety disorder[ICD10: F41.1] Diagnosis: Muscle weakness (generalized)[ICD10: M62.81] Diagnosis: Somnolence[ICD10: R40.0] Diagnosis: Snoring[ICD10: R06.83] Caty Ledesma MD, [facility] CPT-4: 02154 04/08/2017 ([id number]) 75199 EST. PATIENT, LEVEL IV Diagnosis: Vitamin deficiency, unspecified[ICD10: E56.9] Diagnosis: Major depressive disorder, recurrent, moderate[ICD10: F33.1] Diagnosis: Generalized anxiety disorder[ICD10: F41.1] Diagnosis: Impaired fasting glucose[ICD10: R73.01] Diagnosis: Chronic migraine without aura, not intractable, without status migrainosus[ICD10: G43.709] Diagnosis: Essential (primary) hypertension[ICD10: I10] Diagnosis: Mixed hyperlipidemia[ICD10: E78.2] Diagnosis: Nontoxic multinodular goiter[ICD10: E04.2] Caty Ledesma MD, [facility] CPT-4: 88990 02/20/2017 ([id number]) 79104 EST. PATIENT, LEVEL IV Diagnosis: Generalized anxiety disorder[ICD10: F41.1] Diagnosis: Major depressive disorder, recurrent, moderate[ICD10: F33.1] Diagnosis: Chronic pain syndrome[ICD10: G89.4] Diagnosis: Other specified polyneuropathies[ICD10: G62.89] Diagnosis: Muscle weakness (generalized)[ICD10: M62.81] Diagnosis: Essential (primary) hypertension[ICD10: I10] Caty Ledesma MD, [facility] CPT-4: 58910 11/21/2016 ([id number]) 97125 EST. PATIENT, LEVEL III Diagnosis: Generalized abdominal pain[ICD10: R10.84] Diagnosis: Essential (primary) hypertension[ICD10: I10] Caty Ledesma MD, [facility] CPT-4: 43490 08/29/2016 ([id number]) 51374 EST. PATIENT, LEVEL III Diagnosis: Epigastric pain[ICD10: R10.13] Caty Ledesma MD, [facility] CPT- 4: 76763 07/05/2016 ([id number]) 93621 EST. PATIENT, LEVEL III Diagnosis: Toxic gastroenteritis and colitis[ICD10: K52.1] Caty Ledesma MD [facility] CPT-4: 86126 06/11/2016 07940 EST. PATIENT, LEVEL III Diagnosis: Left upper quadrant pain[ICD10: R10.12] Estrella Ledesma MD [facility] CPT-4: 00317 06/04/2016 ([id number]) 11818 EST. PATIENT, LEVEL III Diagnosis: Cellulitis of left toe[ICD10: L03.032] Mira Ledesma MD [facility] CPT-4: 30838 04/10/2016 ([id number]) 50802 EST. PATIENT, LEVEL III Diagnosis: Essential (primary) hypertension[ICD10: I10] Diagnosis: Chronic pain syndrome[ICD10: G89.4] Diagnosis: Other fatigue[ICD10: R53.83] Caty Ledesma MD [facility] CPT- 4: 46222 03/26/2016 ([id number]) 24509 EST. PATIENT, LEVEL III Diagnosis: Gastro-esophageal reflux disease without esophagitis[ICD10: K21.9] Caty Ledesma MD [facility] CPT-4: 63670 01/23/2016 ([id number]) 57500 EST. PATIENT, LEVEL IV Diagnosis: Type 2 diabetes mellitus without complications[ICD10: E11.9] Diagnosis: Gastro-esophageal reflux disease without esophagitis[ICD10: K21.9] Diagnosis: Functional diarrhea[ICD10: K59.1] Caty Ledesma MD [facility] CPT-4: 80474 12/26/2015 57355 EST. PATIENT, LEVEL IV Diagnosis: Other seasonal allergic rhinitis[ICD10: J30.2] Diagnosis: Acute recurrent maxillary sinusitis[ICD10: J01.01] Diagnosis: Cough[ICD10: R05] Estrella Ledesma MD, [facility] CPT-4: 64682 11/02/2015 47799 EST. PATIENT, LEVEL III Diagnosis: Acute recurrent maxillary sinusitis[ICD10: J01.01] Diagnosis: Urgency of urination[ICD10: R39.15] Diagnosis: Cough[ICD10: R05] Diagnosis: Acute laryngopharyngitis[ICD10: J06.0] Estrella Ledesma MD, [facility] CPT-4: 45777 09/13/2015 14658 EST. PATIENT, LEVEL IV Diagnosis: Pain in left lower leg[ICD10: M79.662] Diagnosis: Cramp and spasm[ICD10: R25.2] Diagnosis: Acute nasopharyngitis [common cold][ICD10: J00] Estrella Ledesma MD, [facility] CPT-4: 83822 09/07/2015 ([id number]) 43134 EST. PATIENT, LEVEL IV Diagnosis: Essential (primary) hypertension[ICD10: I10] Diagnosis: Type 2 diabetes mellitus without complications[ICD10: E11.9] Diagnosis: Varicose veins of unspecified lower extremities with other complications[ICD10: I83.899] Caty Ledesma MD [facility] CPT-4: 94286 08/16/2015 ([id number]) 84177 EST. PATIENT, LEVEL IV Diagnosis: Type 2 diabetes mellitus without complications[ICD10: E11.9] Diagnosis: Other mixed anxiety disorders[ICD10: F41.3] Diagnosis: Vitamin deficiency, unspecified[ICD10: E56.9] Diagnosis: Essential (primary) hypertension[ICD10: I10] Caty Ledesma MD [facility] CPT-4: 27204 06/13/2015 ([id number]) 12965 EST. PATIENT, LEVEL IV Diagnosis: ESSENTIAL HYPERTENSION[ICD9: 401.9] Diagnosis: CHRONIC PAIN SYNDROME[ICD9: 338.4] Caty Ledesma MD [facility] CPT-4: 67695 05/10/2015 ([id number]) 06378 EST. PATIENT, LEVEL III Diagnosis: Back pain[ICD9: 724.5] Diagnosis: URINARY FREQUENCY[ICD9: 788.41] Caty Ledesma MD [facility] CPT- 4: 37435 03/22/2015 ([id number]) 81839 EST. PATIENT, LEVEL IV Diagnosis: ESSENTIAL HYPERTENSION[ICD9: 401.9] Diagnosis: DIABETES TYPE II[ICD9: 250.00] Diagnosis: Varicose vein[ICD9: 454.9] Caty Ledesma MD [facility] CPT- 4: 29510 01/17/2015 ([id number]) 77572 EST. PATIENT, LEVEL IV Diagnosis: HEADACHE[ICD9: 784.0] Diagnosis: Neck pain[ICD9: 723.1] Diagnosis: Vision changes[ICD9: 368.9] Diagnosis: Nausea[ICD9: 787.02] Mira Ledesma MD, [facility] CPT-4: 16133 11/22/2014 ([id number]) 70253 EST. PATIENT, LEVEL I Diagnosis: Meningitis exposure[ICD9: V01.89] Caty Ledesma MD, [facility] CPT-4: 21528 11/11/2014 ([id number]) 55173 EST. PATIENT, LEVEL IV Diagnosis: Elevated blood sugar[ICD9: 790.29] Diagnosis: ESSENTIAL HYPERTENSION[ICD9: 401.9] Caty Ledesma MD, [facility] CPT-4: 14525 10/27/2014 ([id number]) 34848 EST. PATIENT, LEVEL IV Diagnosis: Costochondritis[ICD9: 733.6] Diagnosis: ALLERGIC RHINITIS[ICD9: 477.9] Diagnosis: Vitamin D deficiency[ICD9: 268.9] Diagnosis: Elevated blood sugar[ICD9: 790.29] Mira Ledesma MD, [facility] CPT-4: 59083 10/15/2014 ([id number]) 89683 EST. PATIENT, LEVEL IV Diagnosis: ESSENTIAL HYPERTENSION[ICD9: 401.9] Diagnosis: Diarrhea[ICD9: 787.91] Caty Ledesma MD, [facility] CPT-4: 54303 09/30/2014 ([id number]) 64784 EST. PATIENT, LEVEL IV Diagnosis: Raynauds disease[ICD9: 443.0] Diagnosis: Nausea[ICD9: 787.02] Diagnosis: ESSENTIAL HYPERTENSION[ICD9: 401.9] Caty Ledesma MD, [facility] CPT-4: 96702 07/14/2014 ([id number]) 50056 EST. PATIENT, LEVEL IV Diagnosis: ESSENTIAL HYPERTENSION[ICD9: 401.9] Diagnosis: Esophageal reflux[ICD9: 530.81] Diagnosis: Hyponatremia[ICD9: 276.1] Diagnosis: OBESITY[ICD9: 278.00] Diagnosis: Chronic migraine[ICD9: 346.70] Caty Ledesma MD [facility] CPT- 4: 47127 06/23/2014 ([id number]) 95333 EST. PATIENT, LEVEL IV Diagnosis: ESSENTIAL HYPERTENSION[ICD9: 401.9] Diagnosis: GERD (gastroesophageal reflux disease)[ICD9: 530.81] Diagnosis: Costochondritis[ICD9: 733.6] Mira Ledesma MD [facility] CPT-4: 21215 04/09/2014 ([id number]) 07224 EST. PATIENT, LEVEL IV Diagnosis: ESSENTIAL HYPERTENSION[ICD9: 401.9] Diagnosis: RAYNAUD'S SYNDROME[ICD9: 443.0] Caty Ledesma MD [facility] CPT- 4: 69018 03/16/2014 ([id number]) 25250 EST. PATIENT, LEVEL III Diagnosis: ESSENTIAL HYPERTENSION[SNOMED: 06404150] Diagnosis: ALLERGIC RHINITIS[ICD9: 477.9] Diagnosis: Knee pain[ICD9: 719.46] Caty Ledesma MD [facility] CPT-4: 64408 01/12/2014 ([id number]) 98111 EST. PATIENT, LEVEL IV Diagnosis: ALLERGIC RHINITIS[ICD9: 477.9] Diagnosis: ESSENTIAL HYPERTENSION[SNOMED: 95224581] Diagnosis: Fatigue[ICD9: 780.79] Caty Ledesma MD [facility] CPT-4: 73752 12/15/2013 ([id number]) 13943 EST. PATIENT, LEVEL III Diagnosis: ESSENTIAL HYPERTENSION[SNOMED: 77234669] Diagnosis: Skin lesion[ICD9: 709.9] Diagnosis: Raynauds disease[ICD9: 443.0] Caty Ledesma MD [facility] CPT- 4: 92649 10/20/2013 ([id number]) 95560 EST. PATIENT, LEVEL III Diagnosis: ACUTE SINUSITIS[ICD9: 461.9] Caty Ledesma MD [facility] CPT- 4: 79529 09/15/2013 ([id number]) 56969 EST. PATIENT, LEVEL IV Diagnosis: ESSENTIAL HYPERTENSION[SNOMED: 81200827] Diagnosis: Peripheral neuropathy[ICD9: 356.9] Diagnosis: Vitamin D deficiency[ICD9: 268.9] Diagnosis: Vitamin B12 deficiency[ICD9: 266.2] Caty Ledesma MD, [facility] CPT-4: 18001 07/27/2013 ([id number]) 18852 EST. PATIENT, LEVEL III Diagnosis: ACUTE SINUSITIS[ICD9: 461.9] Diagnosis: COUGH[ICD9: 786.2] Mira Ledesma MD, [facility] CPT-4: 89447 06/09/2013 96329 EST. PATIENT, LEVEL IV Diagnosis: HEADACHE[ICD9: 784.0] Diagnosis: Dysphagia[ICD9: 787.20] Diagnosis: Esophageal reflux[ICD9: 530.81] Caty Ledesma MD, [facility] CPT- 4: 31211 04/20/2013 ([id number]) 60093 EST. PATIENT, LEVEL IV Diagnosis: Seasonal allergic rhinitis[ICD9: 477.9] Diagnosis: HEADACHE[ICD9: 784.0] Diagnosis: ESSENTIAL HYPERTENSION[SNOMED: 43556614] Caty Ledesma MD, [facility] CPT-4: 21781 03/23/2013 ([id number]) 15497 EST. PATIENT, LEVEL III Diagnosis: ABNORMALITY OF GAIT[ICD9: 781.2] Diagnosis: B-COMPLEX DEFIC NEC[ICD9: 266.2] Caty Ledesma MD, [facility] CPT-4: 33064 01/21/2013 ([id number]) 72599 EST. PATIENT, LEVEL IV Diagnosis: ESSENTIAL HYPERTENSION[SNOMED: 85446688] Diagnosis: Breast pain[ICD9: 611.71] Caty Ledesma MD [facility] CPT-4: 04535 12/25/2012 ([id number]) 08411 EST. PATIENT, LEVEL III Diagnosis: ESSENTIAL HYPERTENSION[SNOMED: 76712777] Diagnosis: ACUTE URI[ICD9: 465.9] Caty Ledesma MD, [facility] CPT-4: 95335 10/20/2012 ([id number]) 51357 EST. PATIENT, LEVEL IV Diagnosis: B-COMPLEX DEFIC NEC[ICD9: 266.2] Diagnosis: ESSENTIAL HYPERTENSION[SNOMED: 69047666] Diagnosis: Gait instability[ICD9: 781.2] Diagnosis: Back pain[ICD9: 724.5] [facility] CPT-4: 09898 08/11/2012 OFFICE VISIT, NEW - LEVEL 4 Diagnosis: ESSENTIAL HYPERTENSION[SNOMED: 10780436] Diagnosis: ACUTE SINUSITIS[ICD9: 461.9] Diagnosis: Gait instability[ICD9: 781.2] Diagnosis: Weakness of both legs[ICD9: 729.89] [facility] CPT-4: 30331 07/10/2012 Plan of Care Planned Activity Notes [...] tolerated. Call if symptoms not improved. 11/18/2018 Patient Education: Patient Medication Summary Completed 11/18/2018 Care Plan: Clostridium Diff Tox A/B Pending 11/18/2018 Care Plan: Culture Stool Pending 11/18/2018 [...] medications. 10/02/2018 App[facility]ment[phone] [facility] (15 min) Moderate 10/02/2018 Patient Education: Patient [...] pristiq 08/06/2018 Appointment: [facility] [phone] [facility] (15 min) Moderate 08/06/2018 Patient Education: Patient Medication Summary Completed 08/06/2018 Patient Education: Patient Medication Summary Completed 07/09/2018 Care Plan: [employer] : 14792-3 Pending 07/09/2018 Visit Plan: Hypertension - well [...] dosing. 07/08/2018 Appointment: [facility] [phone] [facility] (15 min) Moderate 07/08/2018 Patient Education: [...] to medications. 02/11/2018 Appointment: Caty Ledesma WPtel: [facility] [place] (15 min) Moderate 02/11/2018 Patient [...] 25mcg daily. 11/12/2017 Appointment: Caty Led[facility]ma [facility] [phone] [facility] [place] (15 min) Moderate 11/12/2017 Patient [...] healing well. 08/20/2017 Appointment: Caty Ledesma WPtel: [facility] [place] (15 min) Moderate 08/20/2017 Patient [...] Weaver 06/24/2017 App[facility]ment[phone] [phone] (30 min) Complex 06/24/2017 Patient Education: Patient [...] less controlled. 05/22/2017 Appointment: Caty Led[facility]ma [facility] [phone] [facility] (15 min) Moderate 05/22/2017 Patient Education: Patient Medication Summary Completed 05/22/2017 Visit Plan: Sinusitis - Pt has acute infection - pain in face, maxillary region, Pt informed to use decongestant, RX given to patient, sinus rinses also recommended. Call if symptoms do not show improvement. 05/10/2017 Appointment: Mira Valladares WPtel: [phone] [phone] [place] (15 min) Moderate 05/10/2017 Patient Education: Patient Medication Summary Completed 05/10/2017 Visit Plan: Fatigue - daytime - recommended sleep study, change pristiq to night-time dosing. Sleep study to be scheduled - RX for sleep study sent to hospital. - pt has significant sleepiness during the day - she had a score of 17 on epiworth sleepiness scale. 04/08/2017 Appointment: Caty Ledsema WPtel: [phone] [facility] [place] (15 min) Moderate 04/08/2017 Patient Education: [...] ultrasound. 02/20/2017 Appointment: Caty Ledesma [facility]Ptel[facility] [phone] [facility] [place] (30 min) Complex 02/20/2017 Patient [...] patient. 11/21/2016 Appointment: Caty Ledesma WPtel: [phone] [facility] [place] (15 min) Moderate 11/21/2016 Patient Education: [...] improving. 08/29/2016 Appointment: Caty Led[facility]ma [facility]Ptel[facility] [phone] [facility] [place] (30 min) Complex 08/29/2016 Patient Education: Patient Medication Summary Completed 08/29/2016 Patient Education: Hypertension Completed 08/29/2016 Visit Plan: referral to dr. aburto for cysts of right abdomen near ribs 07/05/2016 Appointment: Caty Ledesma WPtel: [phone] [facility] [place] (15 min) Moderate 07/05/2016 Patient Education: Patient [...] stomach pain. 06/04/2016 Appointment: [phone] [facility] [place] (15 min) Moderate 06/04/2016 Patient Education: [...] of plan. 04/10/2016 Appointment: Mira Valladares WPtel: [phone] (30 min) [facility] 04/10/2016 Patient Education: Patient Medication Summary Completed [...] 12/26/2015 Care Plan: Referral Order SNOMED-CT : 712166114 Pending 12/26/2015 Appointment: Caty Ledesma WPtel: [address] [place] [address] [place] (15 min) Moderate 12/19/2015 Visit Plan: [...] to keep appt with Dr. Kwon in [place] for treatment of varicose veins. 08/16/2015 Patient [...] over-medication. 05/10/2015 Appointment: Caty Ledesma [facility]Ptel[facility] [phone] [facility] [place] Follow up 05/10/2015 Patient Education: [...] veins - referral to Vascular team from [facility] 01/17/2015 Appointment: Caty Ledesma WPtel: [phone] [facility] [place] Follow up 01/17/2015 Patient Education: Patient Medication Summary Completed 01/17/2015 Patient Education: Hypertension Completed 01/17/2015 Care Plan: Referral Order [facility] - need to see if the patient can have her ultrasound studies HERE with [employer] SNOMED-CT : [id number] Ordered 01/17/2015 Appointment: Caty Ledesma WPtel[facility] [phone] [facility] [place] Follow up 01/04/2015 Visit Plan: Worsening akjntnjr-kgvciu-svau injury 1 week ago-recommend CT head due [...] three weeks. 10/27/2014 Appointment: Caty Ledesma WPtel: [address] [place] [address] Follow up 10/27/2014 Patient Education: Patient Medication [...] the nasal steroid allergy spray. Elevated blood ygwoho-yfkguvfos-uxrrte-check Hgb A1c as well as TSH Vitamin D deficiency-check vitamin D level 10/15/2014 Appointment: Follow up 10/15/2014 Patient Education: Patient Medication Summary Completed 10/15/2014 Care Plan: TSH Pending 10/15/2014 Care Plan: A1C HPLC [facility] : 52013-0 Pending 10/15/2014 Care Plan: VIT D TOTL [...] stomach pain. 09/30/2014 Appointment: Caty Ledesma WPtel: [address] [place] [address] Follow up 09/30/2014 Patient Education: Patient Medication Summary Completed 09/30/2014 Patient Education: Hypertension Completed 09/30/2014 Appointment: Caty Ledesma WPtel: [address] [place] [address] Follow up 09/29/2014 Visit Plan: Nausea - [...] at home. 07/14/2014 Appointment: Caty Ledesma WPtel: [address] [place] [address] Follow up 07/14/2014 Patient Education: Patient Medication [...] check labs. 06/23/2014 Appointment: Cat[facility] Led[facility] [phone] [facility] Follow [facility] 06/23/2014 Patient Education: Patient Medication [...] are worsening. 03/16/2014 Appointment: Caty Ledesma [facility]Ptel: [phone] [facility] Follow up 03/16/2014 Patient Education: Patient Medication [...] allergy spray. 01/12/2014 Appointment: Caty Ledesma WPtel: [facility]5 [facility] Follow up 01/12/2014 Patient Education: Patient Medication [...] Fatigue-check labs 12/15/2013 Appointment: Mira Valladares WPtel: [phone] Follow up 12/15/2013 Patient Education: Patient [...] - on scalp - referral to her analysis tester - Dr. Teran. Recommended pt to call for appt. Raynaud - very mild case - pt to continue with norvasc, monitor symptoms, keep hands warm, call if symptoms worsen, if fingers turn and stay persistently purple, will consider topical treatments versus increase in norvasc. 10/20/2013 Appointment: Caty Ledesma WPtel: [facility]5 [facility] Follow up 10/20/2013 Patient Education: Patient Medication Summary Completed 10/20/2013 Patient Education: Hypertension Completed 10/20/2013 Visit Plan: Sinusitis - Pt has acute infection - pain in face, maxillary region, Pt informed to use decongestant, RX given to patient, sinus rinses also recommended. Call if symptoms do not show improvement. 09/15/2013 Appointment: Caty Ledesma WPtel: [facility]5 [facility] Sick 09/15/2013 Patient Education: Patient Medication Summary [...] for acute concerns. Pt is seeing Dr. Mcdwoell - recently had blood pressure medication changed - pt thinks she was started on Norvasc. However, pt has not yet started the norvasc, will be starting it this week. Vitamin d and vitamin b12 deficiency - check labs. Peripheral neuropathy - check glucose tolerance test. 07/27/2013 Appointment: Caty Ledesma WPtel: [id number] Follow up 07/27/2013 Patient Education: Patient Medication Summary Completed 07/27/2013 Patient Education: Hypertension Completed 07/27/2013 Visit Plan: Sinusitis - Pt has acute infection - pain in face, maxillary region, Pt informed to use decongestant, RX given to patient, sinus rinses also recommended. Call if symptoms do not show improvement. 06/09/2013 Appointment: [facility]ada[phone] S[facility] 06/09/2013 Patient Education: Patient Medication Summary [...] and pepcid 04/20/2013 Appointment: Mira Valladares WPtel: [phone] [facility] 04/20/2013 Patient Education: Patient Medication Summary Completed [...] at home. 03/23/2013 Appointment: [facility] Led[phone] [id number] [place] Follow up 03/23/2013 Patient Education: Patient Medication Summary Completed 03/23/2013 Patient Education: Hypertension Completed 03/23/2013 Visit Plan: Gait abnormality with falling at home and hitting head - suspect concussion - recommend that Stephanie see Jose Luis at [facility] for balance and gait training. B12 deficiency - improved with b12 shots, will have patient go back to every 2 week injections instead of weekly injections. 01/21/2013 Appointment: [facility] Led[facility]ma [phone] [facility] [place] Follow up 01/21/2013 Patient Education: Patient [...] have mammo. 12/25/2012 Appointment: [facility] Led[facility] [phone] [facility] [place] Follow up 12/25/2012 Patient Education: Patient [...] clinic today. 10/20/2012 Appointment: Caty Ledesma [facility]Ptel[facility] [phone] [facility] [place] Follow up 10/20/2012 Patient Education: Patient Medication Summary Completed 10/20/2012 Patient Education: Hypertension Completed 10/20/2012 Appointment: Cat[facility] Led[facility]ma [facility]el[facility] [phone] [id number] [place] Injection 09/11/2012 Patient Education: Patient Medication Summary Completed 09/11/2012 Appointment: [facility] Led[facility]el[facility] [phone] [id number] [place] Injection 08/18/2012 Visit Plan: Hypertension [...] a surgeon. 08/11/2012 Appointment: Caty Ledesma WPtel: [address] [place], [place] [phone] Follow up 08/11/2012 Patient Education: Patient Medication Summary Completed 08/11/2012 Patient Education: Hypertension Completed 08/11/2012 Appointment: Caty Ledesma WPtel: [address] [place], [place] [id number] [place] Injection 07/21/2012 Patient Education: Patient Medication [...] d level. 07/10/2012 Appointment: [facility] Valladares [facility]el[facility] [phone] [phone] [place] New Patient 07/10/2012 Patient Education: Patient Medication Summary Completed 07/10/2012 Patient Education: High Blood Pressure: Essential Hypertension Completed 2011 Referral: Blaise Aburto Info. faxed Completed Referral: Blaise Aburto Referral Appointment Requested Referral: [facility], - Referral Appointment Requested [...] recommended pt to have mammo. . Worsening pjmlljyr-fsdkul-duln injury 1 week ago- recommend CT head [...] the nasal steroid allergy spray. Elevated blood nkcwbc-yiqhahfhm-wzlqpy-check Hgb A1c as well as TSH Vitamin [...] to keep appt with Dr. Kwon in [place] for treatment of varicose veins. . Sinusitis [...] veins - referral to Vascular team from [facility] RESTART NASAL SPRAY TWICE DAILY CHECK BLOOD [...] the nasal steroid allergy spray. Will send [place] [employer] Will call out phenergan with codeine cough [...] concussion - recommend that Stephanie Amaya at [facility] for balance and gait training. [...] - on scalp - referral to her analysis tester - Dr. Teran. Recommended pt to call [...]
[2019-01-07 07:45] LABS: BILIRUBIN,URINE NEGATIVE (NEGATIVE); CLARITY,URINE CLEAR; COLOR,URINE YELLOW; GLUCOSE, URINE (UA) NEGATIVE (NEGATIVE); KETONES,URINE NEGATIVE (NEGATIVE); LEUKOCYTE ESTERASE ,URINE 3+ (NEGATIVE); NITRITE,URINE NEGATIVE (NEGATIVE); PH,URINE 6 (5-9); PROTEIN,URINE 2+ (NEGATIVE); UROBILINOGEN,URINE NORMAL (NORMAL)
--- OUTSIDE RECORDS SUMMARY | 2019-01-07 07:45 | XMS REPORT | CCD ---
Author Author Mira Valladares Organization [facility] Address [address] [place] [address] Phone Care Team Providers Care Manager Fixed Income Name Role Phone PP Unavailable CCM Unavailable Summary Purpose Interface Exchange Insurance Providers Payer name Policy type / Coverage type Covered democrat ID Effective Begin Date Effective End Date [facility] Commercial Insurance [id number] Unknown WPS Medicare Part B Commercial Insurance [id number] 2018 Unknown Family history Daughter Diagnosis Age [...] status Unknown 03/26/[address]: 5244901 Former smoker quit 1979 03/26/2016 Number of children Unknown 3 07/10/[address]: 015447412 Never drinks alcohol 07/10/2012 Has the patient ever used illegal drugs? Unknown Has never used illegal drugs 07/10/2012 Allergies, Adverse Reactions, Alerts Substance Reaction Codes Entered Date Inactivated Date Status cymbalta RxNorm: 586156 07/14/2012 No Inactive Date Active Savella nausea RxNorm: 806493 07/14/2012 No Inactive Date Active Metanx nausea RxNorm: 881261 07/14/2012 No Inactive Date Active Gluten Unknown 07/10/2012 No Inactive Date Active Peanuts Unknown 07/10/2012 No Inactive Date Active Levaquin hives RxNorm: 41640 07/14/2012 No Inactive Date Active macrobid pruritis, hives, RxNorm: 841054 07/14/2012 No Inactive Date Active percocet pruritis RxNorm: 655682 07/14/2012 No Inactive Date Active PREDNISONE pruritis, RxNorm: 8640 07/14/2012 No Inactive Date Active ultram pruritis, hives RxNorm: 47739 06/11/2016 No Inactive Date Active GABAPENTIN nausea, [...] mg over 3 days transdermal patch RxNorm: 976230 1 Patch TD Q72H 10/02/2018 10/31/2018 Inactive Pristiq 50 mg tablet,extended release RxNorm: 555129 1 Tablet(s) PO BID 09/05/2018 08/30/2019 Active Glucocard Vital Sensor strips RxNorm: TEST TWO TIMES A DAY 03/06/2020 Active Request already responded to by other means (e.g. phone or fax) Vitamin B-12 1,000 mcg/mL injection solution RxNorm: 579580 INJECT 1 ML INTRAMUSCULARLY ONCE WEEKLY 08/29/2018 Active amlodipine 5 mg tablet RxNorm: 448870 1 Tablet(s) PO daily 11/19/2019 Active topiramate 100 mg tablet RxNorm: 308711 1/2 Tablet(s) PO BID 08/04/2019 Active [SAVINGS FOR UNINSURED PATIENTS -- BIN:[id number], PCN: ASPROD1, Group: [id number], ID# [id number], Process claim through TEVIZZ, for questions: . THIS IS NOT INSURANCE.] amlodipine 10 mg tablet RxNorm: 028007 1/2 Tablet(s) PO daily 08/06/2018 08/26/2018 Inactive Pristiq 50 mg tablet,extended release RxNorm: 598089 1 Tablet(s) PO BID 08/06/2018 09/04/2018 Inactive Voltaren 1 % topical gel RxNorm: 818911 APPLY 2 GRAMS TOPICALLY FOUR TIMES A DAY 07/24/2018 10/31/2018 Inactive Fish Oil 1,000 mg capsule RxNorm: 1 Capsule(s) PO TID 201707/02/2019 Active Valium 5 mg tablet RxNorm: 424773 1 Tablet(s) PO PRN as needed 07/08/2018 No Stop Date Active Vagifem 10 mcg vaginal tablet RxNorm: 234711 1 Tablet(s) VAG daily 07/08/2018 No Stop Date Active naproxen sodium 550 mg tablet RxNorm: 563484 Tablet(s) as needed TAKE 1 TABLET BY MOUTH TWO TIMES DAILY 07/08/20182018 Inactive - Ref: [id number] Pristiq 100 mg tablet,extended release RxNorm: 961011 1 Tablet(s) PO daily 07/08/2018 08/05/2018 Inactive Voltaren 1 % topical gel RxNorm: 004693 APPLY 2 GRAMS TOPICALLY FOUR TIMES A DAY 07/08/2018 07/23/2018 Inactive topiramate 100 mg tablet RxNorm: 892642 1 Tablet(s) PO BID 08/05/2018 Inactive [SAVINGS FOR UNINSURED PATIENTS -- BIN:[id number], PCN: ASPROD1, Group: [facility] , ID# [id number], Process claim through TEVIZZ, for questions: . THIS IS NOT INSURANCE.] Valium 5 mg tablet RxNorm: 831108 1 Tablet(s) PO PRN as needed 06/24/2018 07/07/2018 Inactive folic acid 1 mg tablet RxNorm: 811336 TAKE ONE TABLET BY MOUTH EVERY DAY 05/27/2018 04/21/2019 Active Valium 5 mg tablet RxNorm: 551072 1 Tablet(s) PO PRN as needed 02/21/2018 No Stop Date Active Valium 5 mg tablet RxNorm: 755466 1 Tablet(s) PO PRN as needed 11/12/2017 02/20/2018 Inactive Synthroid 25 mcg tablet RxNorm: 478956 1 Tablet(s) PO daily 02/201811/11/2017 Inactive Synthroid 25 mcg tablet RxNorm: 699232 1 Tablet(s) PO daily 02/201802/10/2018 Inactive Nitro-Bid 2 % transdermal ointment RxNorm: 637624 APPLY TO AFFECTED AREA(S) TOPICALLY THREE TIMES A DAY NEEDED FOR RAYNAUDS SYMPTOMS OF FEET 08/26/2017 10/24/2017 Inactive Vitamin B-12 1,000 mcg/mL injection solution RxNorm: 834923 INJECT 1ML INTRAMUSCULARLY ONCE WEEKLY 08/23/2017 Inactive Request already responded to by other means (e.g. phone or fax) Vitamin B-12 1,000 mcg/mL injection solution RxNorm: 643565 Milliliter(s) INJECT 1ML INTRAMUSCULARLY ONCE WEEKLY 08/21/2017 08/22/2017 Inactive naproxen sodium 550 mg tablet RxNorm: 654278 TAKE 1 TABLET BY MOUTH TWO TIMES DAILY 08/09/2017 11/06/2017 Inactive - Ref: [id number] Combivent Respimat 20 mcg-100 mcg/actuation solution for inhalation RxNorm: 2379822 1-2 Puff(s) INH Q4 PRN 07/26/2017 No Stop Date Active Valium 5 mg tablet RxNorm: 051709 1 Tablet(s) PO PRN as needed 06/27/2017 11/11/2017 Inactive doxycycline hyclate 100 mg tablet RxNorm: 437565 1 Tablet(s) PO BID 06/24/2017 06/30/2017 Inactive azithromycin 250 mg tablet RxNorm: 687560 1 Tablet(s) PO UD 2 tabs on day #1, then 1 pill daily x 4 more days 05/22/2017 08/20/2017 Inactive hydrocodone 10 mg-chlorpheniramine 8 mg/5 mL oral susp extend.rel 12hr RxNorm: 7477818 5 PO as needed 05/10/20172017 Inactive Augmentin 875 mg-125 mg tablet RxNorm: 123586 1 Tablet(s) PO BID 05/10/2017 05/16/2017 Inactive folic acid 1 mg tablet RxNorm: 383863 TAKE ONE TABLET BY MOUTH EVERY DAY 05/09/2017 05/03/2018 Inactive Carafate 1 gram tablet RxNorm: 811445 TAKE ONE TABLET BY MOUTH FOUR TIMES A DAY 30 MINUTES BEFORE MEALS AND AT BEDTIME 03/18/2017 07/07/2018 Inactive scopolamine 1.5 mg transdermal patch (1 mg over 3 days) RxNorm: 974397 1 Patch TD Q72H use for sea sickness 02/20/201703/05 Inactive Pristiq 50 mg tablet,extended release RxNorm: 966383 1 Tablet(s) PO daily 01/15/2017 07/07/2018 Inactive Pristiq 50 mg tablet,extended release RxNorm: 447586 1 Tablet(s) PO BID 12/20/2016 01/14/2017 Inactive naproxen sodium 550 mg tablet RxNorm: 631119 Tablet(s) Take 1 tablet by mouth twice a day 11/14/2016 08/08/2017 Inactive Harper Alba Lancjean claude 33 gauge RxNorm: TEST TWO TIMES A DAY 11/12/2016 04/10/2017 Inactive Phenergan VC-Codeine 6.25 mg-5 mg-10 mg/5 mL syrup RxNorm: 424111 5 Milliliter(s) PO Q6 as needed cough 09/06/20162016 Inactive Nitro-Bid 2 % transdermal ointment RxNorm: 335095 APPLY TO AFFECTED AREA(S) TOPICALLY THREE TIMES A DAY NEEDED FOR RAYNAUDS SYMPTOMS OF FEET 08/21/2016 10/19/2016 Inactive Voltaren 1 % topical gel RxNorm: 821598 APPLY 2 GRAMS TOPICALLY FOUR TIMES A DAY 08/21/2016 12/22/2016 Inactive Vitamin B-12 1,000 mcg/mL injection solution RxNorm: 458024 INJECT 1ML INTRAMUSCULARLY ONCE WEEKLY 08/21/2016 Inactive folic acid 1 mg tablet RxNorm: 888105 TAKE ONE TABLET BY MOUTH EVERY DAY 08/13/2016 04/09/2017 Inactive Flagyl 500 mg tablet RxNorm: 930775 1 Tablet(s) PO TID 201506/22/2016 Inactive Cholestyramine Light 4 gram oral powder RxNorm: 808977 1 packet PO PRN as needed 06/11/2016 No Stop Date Active Flexeril 10 mg tablet RxNorm: 510745 1 Tablet(s) PO as needed 02/19/2017 Inactive 1 hs Vagifem 10 mcg vaginal tablet RxNorm: 911933 1 Tablet(s) VAG BIW -TIW 06/11/2016 07/07/2018 Inactive Flagyl 500 mg tablet RxNorm: 676646 1 Tablet(s) PO TID 201506/10/2016 Inactive Lomotil 2.5 mg-0.025 mg tablet RxNorm: 8304070 1 Tablet(s) PO AC & HS as needed 04/24/2016 05/23/2016 Inactive Keflex 500 mg capsule RxNorm: 889455 1 Capsule(s) PO TID 201504/11/2016 Inactive Keflex 500 mg capsule RxNorm: 488624 1 Capsule(s) PO TID 201504/18/2016 Inactive Pristiq 50 mg tablet,extended release RxNorm: 325158 1 Tablet(s) PO QAM 03/30/2016 12/19/2016 Inactive amitriptyline 25 mg tablet RxNorm: 427712 1/2 Tablet(s) PO QHS x [address] pablo 03/30/2016 06/10/2016 Inactive potassium chloride 20 mEq/15 mL oral liquid RxNorm: 019263 TAKE 2 TABLESPOONS DAILY 03/23/2016 09/18/2016 Inactive Glucocard Vital Sensor strips RxNorm: TEST TWO TIMES A DAY 10/17/2017 Inactive Questran 4 gram oral powder RxNorm: 450592 1 dose PO daily 04/201602/14/2016 Inactive Questran 4 gram oral powder RxNorm: 247153 1 dose PO daily 04/201603/15/2016 Inactive Miralax 17 gram oral powder packet RxNorm: 407657 1 PO daily 02/08/2016 Inactive Miralax 17 gram oral powder packet RxNorm: 069113 1 PO daily 06/10/2016 Inactive Carafate 1 gram tablet RxNorm: 146423 1 Tablet(s) PO QID take 30 minutes before meals and at bedtime 01/23/20162015 Inactive Vitamin D2 50,000 unit capsule RxNorm: 997822 1 Capsule(s) PO QW 12/26/2015 03/24/2016 Inactive Tamiflu 75 mg capsule RxNorm: 536180 1 Capsule(s) PO daily 11/2111/21/2015 Inactive Tamiflu 75 mg capsule RxNorm: 789968 1 Capsule(s) PO daily 11/2112/01/2015 Inactive folic acid 1 mg tablet RxNorm: 449155 TAKE ONE TABLET BY MOUTH EVERY DAY 11/03/2015 07/29/2016 Inactive Keflex 500 mg capsule RxNorm: 432440 1 Capsule(s) PO TID 201511/11/2015 Inactive Augmentin 500 mg-125 mg tablet RxNorm: 341302 1 Tablet(s) PO TID 09/13/2015 09/22/2015 Inactive Zithromax Z-Juanpablo 250 mg tablet RxNorm: 964258 1 Tablet(s) PO 12/25/2015 Inactive Harper Alba Lancets 33 gauge RxNorm: 1 test Miscellaneous BID 06/21/2015 06/14/2016 Inactive Nitro-Bid 2 % transdermal ointment RxNorm: 505723 1 Application TD TID as needed raynauds symptoms of feet 06/01/201508/29 Inactive Vitamin B-12 1,000 mcg/mL injection solution RxNorm: 853254 INJECT 1ML INTRAMUSCULARLY ONCE WEEKLY 05/16/201503/2016 Inactive Voltaren 1 % topical gel RxNorm: 086580 2 Gram(s) TOP QID 05/1007/08/2015 Inactive potassium chloride 20 mEq/15 mL oral liquid RxNorm: 196299 TAKE 2 TABLESPOONS DAILY 04/22/2015 10/18/2015 Inactive naproxen sodium 550 mg tablet RxNorm: 841431 Tablet(s) Take 1 tablet by mouth twice a day 03/10/2015 06/01/2016 Inactive naproxen sodium 550 mg tablet RxNorm: 336359 Take 1 tablet by mouth twice a day 03/09/2015 11/15/2016 Inactive 2nd Attempt Pristiq 50 mg tablet,extended release RxNorm: 602653 1 Tablet(s) PO BID 03/09/2015 03/08/2015 Inactive naproxen sodium 550 mg tablet RxNorm: 420582 1 Tablet(s) PO BID 03/09/2015 03/08/2015 Inactive naproxen sodium 550 mg tablet RxNorm: 714362 Take 1 tablet by mouth twice a day 03/09/2015 03/09/2015 Inactive Pristiq 50 mg tablet,extended release RxNorm: 666208 Take 1 tablet twice a day 03/09/2015 03/29/2016 Inactive folic acid 1 mg tablet RxNorm: 133625 TAKE ONE TABLET BY MOUTH EVERY DAY 01/17/2015 11/02/2015 Inactive Vitamin B-12 1,000 mcg/mL injection solution RxNorm: 555977 INJECT 1 MLS DIRECTED ONCE WEEKLY 12/03/20142015 Inactive hydrocodone 10 mg-acetaminophen 325 mg tablet RxNorm: 438020 1 Tablet(s) PO Q6 PRN 11/22/2014 12/21/2014 Inactive [SAVINGS FOR NON-COVERED DRUGS -- BIN:[id number], PCN: ASPROD1, Group: XXXXX, ID# [id number], Questions: . THIS IS NOT INSURANCE.] ceftriaxone 1 gram solution for injection RxNorm: 3556040 Inj 11/11/2014 11/11/2014 Inactive [SAVINGS FOR NON-COVERED DRUGS -- BIN:427550, PCN: ASPROD1, Group: XXXXX, ID# [id number], Questions: . THIS IS NOT INSURANCE.] Glucocard Vital Sensor strips RxNorm: 1 test Miscellaneous BID 10/27/2014 10/26/2014 Inactive DX code 790.29 Glucocard Vital Sensor strips RxNorm: 1 test Miscellaneous BID 10/27/2014 11/20/2015 Inactive DX code 790.29 [SAVINGS FOR UNINSURED PATIENTS -- BIN:984239, PCN: ASPROD1, Group: [id number], ID# [id number], Process claim through TEVIZZ, for questions: . THIS IS NOT INSURANCE.] topiramate 100 mg tablet RxNorm: 555315 2 Tablet(s) PO BID 04/27/2015 Inactive [SAVINGS FOR UNINSURED PATIENTS -- BIN:890909, PCN: ASPROD1, Group: [id number] , ID# [id number], Process claim through TEVIZZ, for questions: . THIS IS NOT INSURANCE.] Cholestyramine Susp Light 4 gram powder for susp in a packet RxNorm: 566040 packet PO PRN as needed 08/30/20142015 Inactive Nitro-Bid 2 % transdermal ointment RxNorm: 978921 1 Application TD TID as needed raynauds symptoms of feet 07/14/201410/11 Inactive Flonase 50 mcg/actuation nasal spray,suspension RxNorm: 037579 PLACE 2 SPRAYS IN EACH NOSTRIL DAILY 05/25/2014 08/22/2014 Inactive potassium chloride 20 mEq/15 mL oral liquid RxNorm: 096671 2 Tablespoon(s) PO daily 04/20/2014 04/21/2015 Inactive potassium chloride 10 % oral liquid RxNorm: 190681 2 Tablespoon(s) PO daily 04/20/2014 04/19/2014 Inactive potassium chloride 10 % oral liquid RxNorm: 174065 2 Tablespoon(s) PO daily 04/09/2014 04/19/2014 Inactive folic acid 1 mg tablet RxNorm: 840623 Tablet(s) PO TAKE ONE TABLET BY MOUTH EVERY DAY 02/15/2014 No Stop Date Active folic acid 1 mg tablet RxNorm: 497709 Tablet(s) PO TAKE ONE TABLET BY MOUTH EVERY DAY 02/15/2014 01/16/2015 Inactive folic acid 1 mg tablet RxNorm: 408900 1 Tablet(s) PO daily TAKE ONE TABLET BY MOUTH EVERY DAY 02/15/2014 02/14/2014 Inactive Flonase 50 mcg/actuation nasal spray,suspension RxNorm: 786112 1 [place] NASAL BID 01/12/2014 08/09/2014 Inactive topiramate 100 mg tablet RxNorm: 637674 1.5 Tablet(s) PO BID 08/09/2014 Inactive amoxicillin 500 mg capsule RxNorm: 444516 1 Capsule(s) PO TID 12/24/2013 12/30/2013 Inactive amoxicillin 500 mg capsule RxNorm: 140218 1 Capsule(s) PO TID 12/24/2013 12/23/2013 Inactive Pristiq 50 mg tablet,extended release RxNorm: 260907 1 Tablet(s) PO BID 12/01/2013 02/23/2015 Inactive Vitamin B-12 1,000 mcg/mL injection solution RxNorm: 221228 1 Milliliter(s) Inj QW 11/10/2013 11/09/2013 Inactive Vitamin B-12 1,000 mcg/mL injection solution RxNorm: 145321 1 Milliliter(s) Inj QW 11/10/2013 12/02/2014 Inactive Myrbetriq 25 mg tablet,extended release RxNorm: 8591614 1 Tablet(s) PO daily 10/20/2013 08/16/2014 Inactive fluconazole 150 mg tablet RxNorm: 418063 1 Tablet(s) PO daily 09/15/2013 09/19/2013 Inactive amoxicillin 875 mg-potassium clavulanate 125 mg tablet RxNorm: 956682 1 Tablet(s) PO BID 09/15/2013 09/24/2013 Inactive Pristiq 50 mg tablet,extended release RxNorm: 487352 1 Tablet(s) PO BID 07/30/2013 11/30/2013 Inactive Topamax 25 mg tablet RxNorm: 122347 4 Tablet(s) PO BID 201201/11/2014 Inactive vitamin B12 200mcg [place], Suspension RxNorm: 1 [place] PO daily 07/27/2013 12/25/2015 Inactive Flonase 50 mcg/actuation nasal spray,suspension RxNorm: 397756 2 [place] NASAL daily 06/09/2013 07/08/2013 Inactive Carafate 1 gram tablet RxNorm: 413414 1 Tablet(s) PO ac and hs 05/07/2013 05/06/2013 Inactive Carafate 1 gram tablet RxNorm: 831455 1 Tablet(s) PO ac and hs 05/07/2013 05/31/2014 Inactive potassium chloride 10 % Oral Liquid RxNorm: 732327 1 Tablespoon(s) PO daily 03/23/2013 04/08/2014 Inactive folic acid 1 mg tablet RxNorm: 186345 Tablet(s) PO TAKE ONE TABLET BY MOUTH EVERY DAY 01/29/2013 02/14/2014 Inactive naproxen sodium 550 mg tablet RxNorm: 632319 1 Tablet(s) PO BID 01/21/2013 10/26/2014 Inactive hydrocodone 5 mg-acetaminophen 500 mg tablet RxNorm: 788265 1 Tablet(s) PO Q8 PRN 12/25/2012 02/19/2017 Inactive folic acid 1 mg tablet RxNorm: 259897 1 Tablet(s) PO daily 01/28/2013 Inactive cyanocobalamin (vitamin B-12) 1,000 mcg/mL Injection RxNorm: 132813 1 Milliliter(s ) Inj 2 x month inject 1 mL every other week intramuscularly 11/03/2012 11/02/2012 Inactive please provide 25 gauge syringes as well. cyanocobalamin (vitamin B-12) 1,000 mcg/mL Injection RxNorm: 263597 Milliliter(s) Inj 11/03/2012 11/03/2012 Inactive cyanocobalamin (vitamin B-12) 1,000 mcg/mL Injection RxNorm: 403457 1 Milliliter(s ) Inj 2 x month inject 1 mL every other week intramuscularly 11/03/2012 12/25/2015 Inactive please provide 25 gauge syringes as well. cyanocobalamin (vitamin B-12) 1,000 mcg/mL Injection RxNorm: 842939 1 Milliliter(s ) Inj 10/20/2012 10/20/2012 Inactive Vitamin B-12 1,000 mcg/mL Injection RxNorm: 869728 1 Milliliter(s) Inj 09/11/2012 09/11/2012 Inactive Zithromax Z-Juanpablo 250 mg tablet RxNorm: 221764 Tablet(s) PO UD 12/24/2012 Inactive please give z juanpablo hydrochlorothiazide 25 mg tablet RxNorm: 144313 1/2 Tablet(s) PO daily 08/11/2012 No Stop Date Active Vitamin B-12 1,000 mcg/mL Injection RxNorm: 934867 Milliliter(s) Inj 08/11/2012 08/11/2012 Inactive Vitamin D2 50,000 unit capsule RxNorm: 9399822 Capsule(s) PO one weekly for 8 weeks then resume her daily dosing 07/21/2012 07/20/2012 Inactive Vitamin B-12 1,000 mcg/mL Injection RxNorm: 778745 Milliliter(s) Inj 07/21/2012 07/21/2012 Inactive Vitamin D2 50,000 unit capsule RxNorm: 1653150 Capsule(s) PO one weekly for 8 weeks then resume her daily dosing 07/21/2012 09/18/2012 Inactive Diflucan 150 mg tablet RxNorm: 507916 1 Tablet(s) PO daily 09/201107/12/2012 Inactive HyoMax-SR 0.375 mg tablet,extended release RxNorm: 8595227 Tablet(s) PO PRN No Start Date Active Maxalt-[employer] 10 mg disintegrating tablet RxNorm: 354152 Tablet(s) PO PRN No Start Date Active Vitamin D3 2,000 unit tablet RxNorm: 371184 1 Tablet(s) PO daily No Start Date Active potassium chloride 20 mEq/15 mL oral liquid RxNorm: 872809 2 Tablespoon(s) PO daily No Start Date Active Zetia 10 mg tablet RxNorm: 206890 1 Tablet(s) PO QPM No Start Date Active metoprolol tartrate 50 mg tablet RxNorm: 690949 1 Tablet(s) PO BID No Start Date Active biotin 2,500 mcg tablet RxNorm: 227098 1 Tablet(s) PO daily No Start Date Active Zyrtec 10 mg tablet RxNorm: 0485420 1 Tablet(s) PO PRN No Start Date Active Praluent Pen 75 mg/mL subcutaneous pen injector RxNorm: 9655864 1 Milliliter(s) SQ Q 2 weeks No Start Date Active Fioricet oral RxNorm: 784782 oral No Start Date Active Cholestyramine Susp Light 4 gram Packet RxNorm: 759908 packet PO PRN No Start Date 08/29/2014 Inactive Pristiq 50 mg tablet,extended release RxNorm: 986235 1 Tablet(s) PO daily No Start Date 07/29/2013 Inactive Topamax 25 mg tablet RxNorm: 687641 3 Tablet(s) PO BID No Start Date 07/29/2013 Inactive pantoprazole 40 mg tablet,delayed release RxNorm: 417687 1 Tablet(s) PO daily No Start Date 07/07/2018 Inactive Tricor 145 mg tablet RxNorm: 341797 1 Tablet(s) PO daily No Start Date 12/24/2012 Inactive Zithromax Z-Juanpablo 250 mg tablet RxNorm: 518542 Tablet(s) PO UD No Start Date 08/11/2012 Inactive Fish Oil 1,000 mg capsule RxNorm: 1 Capsule(s) PO BID No Start Date 07/07/2018 Inactive Vitamin D3 2,000 unit capsule RxNorm: 564059 1 Capsule(s) PO daily No Start Date 12/25/2015 Inactive Vagifem 10 mcg vaginal tablet RxNorm: 636015 1-2 Tablet(s) VAG weekly No Start Date 06/10/2016 Inactive Gelnique 10 % (100 mg/gram) transdermal gel packet RxNorm: 402358 3% gel 3 pumps TD daily No Start Date 08/09/2014 Inactive Vitamin D3 5,000 unit tablet RxNorm: 625102 1 Tablet(s) PO daily No Start Date 06/10/2016 Inactive hydrochlorothiazide 25 mg tablet RxNorm: 336502 1 Tablet(s) PO daily No Start Date 08/10/2012 Inactive Flexeril 10 mg tablet RxNorm: 722982 Tablet(s) PO No Start Date 06/10/2016 Inactive 1 q am1/2 with dinner1 hs Valium 5 mg tablet RxNorm: 651084 1 Tablet(s) PO PRN No Start Date 06/26/2017 Inactive amlodipine 5 mg tablet RxNorm: 443277 1 Tablet(s) PO daily No Start Date 03/15/2014 Inactive Phenergan VC-Codeine 6.25 mg-5 mg-10 mg/5 mL syrup RxNorm: 457204 5 Milliliter(s) PO Q6 as needed cough No Start Date 2015 Inactive Zithromax Z-Juanpablo 250 mg tablet RxNorm: 284604 Tablet(s) PO UD No Start Date 07/30/2013 Inactive naproxen 500 mg tablet RxNorm: 237679 Tablet(s) PO BID PRN No Start Date 01/20/2013 Inactive Lovaza 1 gram capsule RxNorm: 256251 2 Capsule(s) PO BID No Start Date 03/04/2018 Inactive hydrocodone 5 mg-acetaminophen 500 mg tablet RxNorm: 793136 1 Tablet(s) PO Q8 PRN No Start Date 12/24/2012 Inactive biotin 1000 mg RxNorm : 2 PO No Start Date 06/11/2016 Inactive aspirin 81 mg tablet,delayed release RxNorm: 921683 1 Tablet(s) PO daily No Start Date 07/07/2018 Inactive Lomotil 2.5 mg-0.025 mg tablet RxNorm: 6302430 Tablet(s) PO PRN No Start Date 04/23/2016 Inactive Ditropan XL 5 mg tablet,extended release RxNorm: 602574 1 Tablet(s) PO daily No Start Date 06/09/2018 Inactive Antara 130 mg capsule RxNorm: 239177 1 Capsule(s) PO daily No Start Date 07/07/2018 Inactive folic acid 1 mg tablet RxNorm: 911651 1 Tablet(s) PO daily No Start Date 11/02/2012 Inactive amlodipine 10 mg tablet RxNorm: 326174 1 Tablet(s) PO daily No Start Date 08/05/2018 Inactive amitriptyline 25 mg tablet RxNorm: 632042 1 Tablet(s) PO QHS dr fonseca No Start Date 03/29/2016 Inactive Gelnique transdermal RxNorm: 528436 transdermal No Start Date 03/25/2016 Inactive Toprol XL 50 mg tablet,extended release RxNorm: 058596 1 Tablet(s) PO daily No Start Date 04/08/2017 Inactive potassium chloride 10 % Oral Liquid RxNorm: 977197 1 Tablespoon(s) PO daily No Start Date 03/22/2013 Inactive Lipitor 10 mg tablet RxNorm: 484047 1 Tablet(s) PO QHS No Start Date 12/24/2012 Inactive diltiazem 120 mg tablet RxNorm: 779105 1 Tablet(s) PO daily No Start Date 08/10/2012 Inactive Combivent Respimat 20 mcg-100 mcg/actuation solution for inhalation RxNorm: 9198039 1-2 Puff(s) INH Q4 PRN No Start Date 07/25/2017 Inactive Medication Administered Medication Codes Instructions Start Date Status ceftriaxone 1 gram solution for injection RxNorm: 0154548 11/11/2014 No longer Active cyanocobalamin (vitamin B-12) 1,000 mcg/mL Injection RxNorm : 471086 Milliliter 11/03/2012 No longer Active cyanocobalamin (vitamin B-12) 1,000 mcg/mL Injection RxNorm : 437641 1Milliliter 10/20/2012 No longer Active Vitamin B-12 1,000 mcg/mL Injection RxNorm: 240343 1Milliliter 09/11/2012 No longer Active Vitamin B-12 1,000 mcg/mL Injection RxNorm: 848183 Milliliter 08/11/2012 No longer Active Vitamin B-12 1,000 mcg/mL Injection RxNorm: 782771 Milliliter 07/21/2012 No longer Active Immunizations Vaccine [...] Item Item Code Result Date Comp Metabolic Dzo077 NA 137 mEq/L 11/18/2018 Comp Metabolic Bhb860 K 3.9 mEq/L 11/18/2018 Comp Metabolic Cvq108 CL 105 mEq/L 11/18/2018 Comp Metabolic Qjl327 CO2 26.0 mEq/L 11/18/2018 Comp Metabolic Mgz801 ANION GAP 10 11/18/2018 Comp Metabolic Pro955 GLUCOSE 98 mg/dL 11/18/2018 Comp Metabolic Yfq118 Creat 0.6 mg/dL 11/18/2018 Comp Metabolic Lga615 eGFR 107 ml/min/1.73m2 11/18/2018 Comp Metabolic Rfl418 BUN 16 mg/dL 11/18/2018 Comp Metabolic Afs012 B/C Ratio 26.2 Ratio 11/18/2018 Comp Metabolic Jbt529 CALCIUM 9.5 mg/dL 11/18/2018 Comp Metabolic Nkx683 ALK PHOS 77 U/L 11/18/2018 Comp Metabolic Eoq154 AST(SGOT) 20 U/L 11/18/2018 Comp Metabolic Rxo875 ALT(SGPT) 26 U/L 11/18/2018 Comp Metabolic Adx786 BILI T 0.4 mg/dL 11/18/2018 Comp Metabolic Jet853 ALBUMIN 4.4 g/dL 11/18/2018 Comp Metabolic Wwu305 TPRO 6.9 g/dL 11/18/2018 Comp Metabolic Jde470 GLOB 2.6 g/dL 11/18/2018 Comp Metabolic Qnh216 A/G Ratio 1.7 Ratio 11/18/2018 Comp Metabolic Dji954 Osmo 275 mOsmo 11/18/2018 Cbc With Differential [...] 29.2 pg 11/18/2018 Cbc With Differential Ord2 [place]% 7.7 % 11/18/2018 Cbc With Differential Ord2 [...] 1.79 K/ul 11/18/2018 Cbc With Differential Ord2 [place] ABS# 0.5 K/ul 11/18/2018 Cbc With Differential Ord2 Eos ABS# 0.1 K/ul 11/18/2018 Cbc With Differential Ord2 Baso ABS# 0.0 K/ul 11/18/2018 Hepatic Ksi184 ALBUMIN 4.5 g/dL 08/11/2018 Hepatic Pyj846 TPRO 7.3 g/dL 08/11/2018 Hepatic Tgi429 GLOB 2.8 g/dL 08/11/2018 Hepatic Ayv988 A/G Ratio 1.6 Ratio 08/11/2018 Hepatic Jcj987 ALK PHOS 89 U/L 08/11/2018 Hepatic Cbp220 ALT(SGPT) 31 U/L 08/11/2018 Hepatic Egn488 AST(SGOT) 20 U/L 08/11/2018 Hepatic Cyu126 BILI T 0.4 mg/dL 08/11/2018 Hepatic Jnc327 BILI D 0.1 mg/dL 08/11/2018 Hepatic Kpu336 BILI I 0.3 mg/dL 08/11/2018 Lipid Ord30 [...] Ord30 C/HDL 3.7 Ratio 05/01/2018 Comp Metabolic Icl767 NA 140 mEq/L 05/01/2018 Comp Metabolic Nci754 K 4.1 mEq/L 05/01/2018 Comp Metabolic Kfl047 CL 107 mEq/L 05/01/2018 Comp Metabolic Duo634 CO2 25.0 mEq/L 05/01/2018 Comp Metabolic Pur369 ANION GAP 12 05/01/2018 Comp Metabolic Zlr574 GLUCOSE 98 mg/dL 05/01/2018 Comp Metabolic Nod900 Creat 0.7 mg/dL 05/01/2018 Comp Metabolic Qsl436 eGFR 96 ml/min/1.73m2 05/01/2018 Comp Metabolic Gcz467 BUN 14 mg/dL 05/01/2018 Comp Metabolic Xqn433 B/C Ratio 20.9 Ratio 05/01/2018 Comp Metabolic Sjv053 CALCIUM 9.5 mg/dL 05/01/2018 Comp Metabolic Phl538 ALK PHOS 74 U/L 05/01/2018 Comp Metabolic Zwo307 AST(SGOT) 19 U/L 05/01/2018 Comp Metabolic Trm386 ALT(SGPT) 29 U/L 05/01/2018 Comp Metabolic Uxp997 BILI T 0.3 mg/dL 05/01/2018 Comp Metabolic Lec599 ALBUMIN 4.3 g/dL 05/01/2018 Comp Metabolic Jeu696 TPRO 6.7 g/dL 05/01/2018 Comp Metabolic Vnx781 GLOB 2.4 g/dL 05/01/2018 Comp Metabolic Qxj350 A/G Ratio 1.8 Ratio 05/01/2018 Comp Metabolic Zct688 Osmo 280 mOsmo 05/01/2018 Free T4 Dra136 FREE T4 0.95 ng/dL 02/11/2018 Tsh Ord6 TSH (3rd IS) 2.16 uIU/mL 02/11/2018 Free T4 Xaf843 FREE T4 0.81 ng/dL 11/12/2017 Tsh Ord6 TSH (3rd IS) 1.66 uIU/mL 11/12/2017 Tsh Ord6 hTSH II 1.45 uIU/mL 08/20/2017 Free T4 Ngi183 FREE T4 0.80 ng/dL 08/20/2017 Hepatic Rlr388 ALBUMIN 4.4 g/dL 08/20/2017 Hepatic Tdd761 TPRO 6.6 g/dL 08/20/2017 Hepatic Grk716 GLOB 2.2 g/dL 08/20/2017 Hepatic Ebm849 A/G Ratio 2.0 Ratio 08/20/2017 Hepatic Rrj822 ALK PHOS 50 U/L 08/20/2017 Hepatic Kwc147 ALT(SGPT) 20 U/L 08/20/2017 Hepatic Srz782 AST(SGOT) 20 U/L 08/20/2017 Hepatic Ojw922 BILI T 0.3 mg/dL 08/20/2017 Hepatic Rqa720 BILI D 0.1 mg/dL 08/20/2017 Hepatic Qnn594 BILI I 0.2 mg/dL 08/20/2017 Lipid Ord30 [...] 30.3 pg 02/21/2017 Cbc With Differential Ord2 [place]% 6.9 % 02/21/2017 Cbc With Differential Ord2 [...] 1.82 K/ul 02/21/2017 Cbc With Differential Ord2 [place] ABS# 0.5 K/ul 02/21/2017 Cbc With Differential Ord2 Eos ABS# 0.2 K/ul 02/21/2017 Cbc With Differential Ord2 Baso ABS# 0.0 K/ul 02/21/2017 %Hba1C Qvu805 % HbA1c 98610-3 5.8 % 02/21/2017 %Hba1C Dng137 Gluc Ave 120 mg/dL 02/21/2017 Tsh Ord6 hTSH II 1.90 uIU/mL 02/21/2017 Vitamin D 25 Oh Uht0880 VITAMIN D, 25 HYDROXY 42.82 ng/mL Comp Metabolic Iub229 NA 141 mEq/L 02/21/2017 Comp Metabolic Xne494 K 4.1 mEq/L 02/21/2017 Comp Metabolic Bei209 CL 107 mEq/L 02/21/2017 Comp Metabolic Ppb935 CO2 25.0 mEq/L 02/21/2017 Comp Metabolic Vio538 ANION GAP 13 02/21/2017 Comp Metabolic Dzw439 GLUCOSE 87 mg/dL 02/21/2017 Comp Metabolic Tus357 Creat 0.8 mg/dL 02/21/2017 Comp Metabolic Zjg509 eGFR 80 ml/min/1.73m2 02/21/2017 Comp Metabolic Eyb462 BUN 20 mg/dL 02/21/2017 Comp Metabolic Xeh442 B/C Ratio 25.3 Ratio 02/21/2017 Comp Metabolic Yrd246 CALCIUM 9.5 mg/dL 02/21/2017 Comp Metabolic Mtv144 ALK PHOS 61 U/L 02/21/2017 Comp Metabolic Iij052 AST(SGOT) 16 U/L 02/21/2017 Comp Metabolic Ufh134 ALT(SGPT) 19 U/L 02/21/2017 Comp Metabolic Tnf373 BILI T 0.3 mg/dL 02/21/2017 Comp Metabolic Rve800 ALBUMIN 4.4 g/dL 02/21/2017 Comp Metabolic Ynj687 TPRO 7.0 g/dL 02/21/2017 Comp Metabolic Nqo329 GLOB 2.6 g/dL 02/21/2017 Comp Metabolic Hdl681 A/G Ratio 1.7 Ratio 02/21/2017 Comp Metabolic Jzj020 Osmo 283 mOsmo 02/21/2017 Lipid Ord30 CHOL 185 mg/dL 02/21/2017 Lipid Ord30 HDL 74.0 mg/dl 02/21/2017 Lipid Ord30 TRIG 148 mg/dL 02/21/2017 Lipid Ord30 LDL 81 mg/dL 02/21/2017 Lipid Ord30 C/HDL 2.5 Ratio 02/21/2017 Hepatic Lry042 ALBUMIN 4.9 g/dL 08/21/2016 Hepatic Ieu438 TPRO 7.3 g/dL 08/21/2016 Hepatic Mub131 GLOB 2.5 g/dL 08/21/2016 Hepatic Rdt591 A/G Ratio 2.0 Ratio 08/21/2016 Hepatic Yum933 ALK PHOS 76 U/L 08/21/2016 Hepatic Wgj747 ALT(SGPT) 29 U/L 08/21/2016 Hepatic Ycp707 AST(SGOT) 22 U/L 08/21/2016 Hepatic Cxg790 BILI T 0.4 mg/dL 08/21/2016 Hepatic Fqr745 BILI D 0.1 mg/dL 08/21/2016 Hepatic Tsq179 BILI I 0.3 mg/dL 08/21/2016 Lipid Ord30 CHOL 302 mg/dL 08/21/2016 Lipid Ord30 HDL 69.0 mg/dl 08/21/2016 Lipid Ord30 TRIG 223 mg/dL 08/21/2016 Lipid Ord30 LDL 188 mg/dL 08/21/2016 Lipid Ord30 C/HDL 4.4 Ratio 08/21/2016 Lipase Ayf555 LIPASE 14 U/L 06/04/2016 Cbc With Differential [...] 30.0 pg 06/04/2016 Cbc With Differential Ord2 [place]% 6.5 % 06/04/2016 Cbc With Differential Ord2 [...] 1.50 K/ul 06/04/2016 Cbc With Differential Ord2 [place] ABS# 0.4 K/ul 06/04/2016 Cbc With Differential Ord2 Eos ABS# 0.1 K/ul 06/04/2016 Cbc With Differential Ord2 Baso ABS# 0.0 K/ul 06/04/2016 Comp Metabolic Thk754 NA 135 mEq/L 06/04/2016 Comp Metabolic Pee790 K 3.8 mEq/L 06/04/2016 Comp Metabolic Eyq938 CL 101 mEq/L 06/04/2016 Comp Metabolic Wso052 CO2 26.0 mEq/L 06/04/2016 Comp Metabolic Iut433 ANION GAP 12 06/04/2016 Comp Metabolic Dsw712 GLUCOSE 91 mg/dL 06/04/2016 Comp Metabolic Xwt151 Creat 0.8 mg/dL 06/04/2016 Comp Metabolic Hzl438 eGFR 74 ml/min/1.73m2 06/04/2016 Comp Metabolic Mdm097 BUN 16 mg/dL 06/04/2016 Comp Metabolic Nra174 B/C Ratio 19.0 Ratio 06/04/2016 Comp Metabolic Qjl408 CALCIUM 10.0 mg/dL 06/04/2016 Comp Metabolic Kby719 ALK PHOS 76 U/L 06/04/2016 Comp Metabolic Typ083 AST(SGOT) 20 U/L 06/04/2016 Comp Metabolic Frh179 ALT(SGPT) 24 U/L 06/04/2016 Comp Metabolic Fwy298 BILI T 0.3 mg/dL 06/04/2016 Comp Metabolic Nyw066 ALBUMIN 4.6 g/dL 06/04/2016 Comp Metabolic Ajv265 TPRO 6.9 g/dL 06/04/2016 Comp Metabolic Pqy778 GLOB 2.3 g/dL 06/04/2016 Comp Metabolic Nui388 A/G Ratio 2.0 Ratio 06/04/2016 Comp Metabolic Tzo859 Osmo 271 mOsmo 06/04/2016 Amylase Ord34 AMYLASE 31 U/L 06/04/2016 Hepatic Rlv002 ALBUMIN 4.3 g/dL 2016 Hepatic Nng396 TPRO 6.7 g/dL 2016 Hepatic Bio936 GLOB 2.4 g/dL 2016 Hepatic Ucx884 A/G Ratio 1.8 Ratio 2016 Hepatic Mqh570 ALK PHOS 50 U/L 2016 Hepatic Okp228 ALT(SGPT) 20 U/L 2016 Hepatic Bxk480 AST(SGOT) 18 U/L 2016 Hepatic Ezn400 BILI T 0.4 mg/dL 2016 Hepatic Mih844 BILI D 0.1 mg/dL 2016 Hepatic Fxt609 BILI I 0.3 mg/dL 2016 Lipid Ord30 CHOL 245 mg/dL 2016 Lipid Ord30 HDL 62.0 mg/dl 2016 Lipid Ord30 TRIG 140 mg/dL 2016 Lipid Ord30 LDL 155 mg/dL 2016 Lipid Ord30 C/HDL 4.0 Ratio 2016 Urine Culture Ucult Preliminary No Growth Day 1 09/15/2015 Urine Culture Ucult Complete No Growth Day 2 09/15/2015 Magnesium Ord90 Mag 1.9 mg/dL 09/07/2015 Comp Metabolic Dup605 NA 139 mEq/L 09/07/2015 Comp Metabolic Kps409 K 4.4 mEq/L 09/07/2015 Comp Metabolic Vwc442 CL 107 mEq/L 09/07/2015 Comp Metabolic Amr821 CO2 24.0 mEq/L 09/07/2015 Comp Metabolic Dma392 ANION GAP 12 09/07/2015 Comp Metabolic Uzr255 GLUCOSE 91 mg/dL 09/07/2015 Comp Metabolic Aqe843 Creat 1.0 mg/dL 09/07/2015 Comp Metabolic Fdl589 eGFR 64 ml/min/1.73m2 09/07/2015 Comp Metabolic Znr020 BUN 31 mg/dL 09/07/2015 Comp Metabolic Wxn879 B/C Ratio 32.3 Ratio 09/07/2015 Comp Metabolic Tkr403 CALCIUM 9.7 mg/dL 09/07/2015 Comp Metabolic Cfz433 ALK PHOS 56 U/L 09/07/2015 Comp Metabolic Oao894 AST(SGOT) 29 U/L 09/07/2015 Comp Metabolic Jod746 ALT(SGPT) 34 U/L 09/07/2015 Comp Metabolic Wvc196 BILI T 0.3 mg/dL 09/07/2015 Comp Metabolic Nme132 ALBUMIN 4.6 g/dL 09/07/2015 Comp Metabolic Vpv490 TPRO 7.0 g/dL 09/07/2015 Comp Metabolic Fiw256 GLOB 2.4 g/dL 09/07/2015 Comp Metabolic Brd664 A/G Ratio 1.9 Ratio 09/07/2015 Comp Metabolic Blz690 Osmo 284 mOsmo 09/07/2015 Bili D Ord93 BILI D 0.1 mg/dL 09/07/2015 Bili D Ord93 BILI I 0.2 mg/dL 09/07/2015 Lipid Ord30 CHOL 243 mg/dL 09/07/2015 Lipid Ord30 HDL 75.0 mg/dl 09/07/2015 Lipid Ord30 TRIG 161 mg/dL 09/07/2015 Lipid Ord30 LDL 136 mg/dL 09/07/2015 Lipid Ord30 C/HDL 3.2 Ratio 09/07/2015 Tsh Ord6 hTSH II 2.53 uIU/mL 06/13/2015 Comp Metabolic Poy301 NA 138 mEq/L 06/13/2015 Comp Metabolic Lzw613 K 4.0 mEq/L 06/13/2015 Comp Metabolic Nbe522 CL 104 mEq/L 06/13/2015 Comp Metabolic Epu443 CO2 26.0 mEq/L 06/13/2015 Comp Metabolic Yga641 ANION GAP 12 06/13/2015 Comp Metabolic Nwv578 GLUCOSE 86 mg/dL 06/13/2015 Comp Metabolic Rfk099 Creat 0.9 mg/dL 06/13/2015 Comp Metabolic Pcg105 eGFR 71 ml/min/1.73m2 06/13/2015 Comp Metabolic Hqk564 BUN 18 mg/dL 06/13/2015 Comp Metabolic Cwi359 B/C Ratio 20.5 Ratio 06/13/2015 Comp Metabolic Uuy406 CALCIUM 10.1 mg/dL 06/13/2015 Comp Metabolic Nzy462 ALK PHOS 52 U/L 06/13/2015 Comp Metabolic Okm075 AST(SGOT) 18 U/L 06/13/2015 Comp Metabolic Ffn544 ALT(SGPT) 21 U/L 06/13/2015 Comp Metabolic Grd829 BILI T 0.3 mg/dL 06/13/2015 Comp Metabolic Rvb201 ALBUMIN 4.7 g/dL 06/13/2015 Comp Metabolic Qrp939 TPRO 6.9 g/dL 06/13/2015 Comp Metabolic Acd412 GLOB 2.2 g/dL 06/13/2015 Comp Metabolic Haj574 A/G Ratio 2.1 Ratio 06/13/2015 Comp Metabolic Bnr767 Osmo 277 mOsmo 06/13/2015 %Hba1C Jxp315 % HbA1c 87068-5 5.7 % 06/13/2015 %Hba1C Yri669 Gluc Ave 117 mg/dL 06/13/2015 Cbc With [...] 14.7 % 06/13/2015 Vitamin D 25 Oh Gua1015 VITAMIN D, 25 HYDROXY 41.85 ng/mL Cbc [...] Ord2 RDW 14.5 % 04/18/2015 Comp Metabolic Ptx148 NA 137 mEq/L 04/18/2015 Comp Metabolic Nhe473 K 4.0 mEq/L 04/18/2015 Comp Metabolic Dtb785 CL 105 mEq/L 04/18/2015 Comp Metabolic Fyp924 CO2 23.0 mEq/L 04/18/2015 Comp Metabolic Ewp564 ANION GAP 13 04/18/2015 Comp Metabolic Lyo561 GLUCOSE 73 mg/dL 04/18/2015 Comp Metabolic Cvd248 Creat 0.9 mg/dL 04/18/2015 Comp Metabolic Use408 eGFR 72 ml/min/1.73m2 04/18/2015 Comp Metabolic Dzs634 BUN 17 mg/dL 04/18/2015 Comp Metabolic Dda885 B/C Ratio 19.5 Ratio 04/18/2015 Comp Metabolic Pkp925 CALCIUM 9.7 mg/dL 04/18/2015 Comp Metabolic Vlw377 ALK PHOS 55 U/L 04/18/2015 Comp Metabolic Nhw547 AST(SGOT) 28 U/L 04/18/2015 Comp Metabolic Anw586 ALT(SGPT) 27 U/L 04/18/2015 Comp Metabolic Ihr829 BILI T 0.3 mg/dL 04/18/2015 Comp Metabolic Eph680 ALBUMIN 4.5 g/dL 04/18/2015 Comp Metabolic Sxp179 TPRO 7.0 g/dL 04/18/2015 Comp Metabolic Uco048 GLOB 2.5 g/dL 04/18/2015 Comp Metabolic Cwm020 A/G Ratio 1.8 Ratio 04/18/2015 Comp Metabolic Iyh319 Osmo 274 mOsmo 04/18/2015 Cbc With Differential [...] Ord2 RDW 15.0 % 03/22/2015 Comp Metabolic Bvp123 NA 136 mEq/L 03/22/2015 Comp Metabolic Cin447 K 4.1 mEq/L 03/22/2015 Comp Metabolic Ybm496 CL 102 mEq/L 03/22/2015 Comp Metabolic Bgl815 CO2 26.0 mEq/L 03/22/2015 Comp Metabolic Iae219 ANION GAP 12 03/22/2015 Comp Metabolic Ogy319 GLUCOSE 82 mg/dL 03/22/2015 Comp Metabolic Xgr687 Creat 0.9 mg/dL 03/22/2015 Comp Metabolic Qav551 eGFR 69 ml/min/1.73m2 03/22/2015 Comp Metabolic Vjq616 BUN 30 mg/dL 03/22/2015 Comp Metabolic Rhz950 B/C Ratio 33.3 Ratio 03/22/2015 Comp Metabolic Hfw795 CALCIUM 10.3 mg/dL 03/22/2015 Comp Metabolic Owo231 ALK PHOS 56 U/L 03/22/2015 Comp Metabolic Dvv786 AST(SGOT) 17 U/L 03/22/2015 Comp Metabolic Zwv964 ALT(SGPT) 17 U/L 03/22/2015 Comp Metabolic Eaf767 BILI T 0.3 mg/dL 03/22/2015 Comp Metabolic Rar465 ALBUMIN 4.7 g/dL 03/22/2015 Comp Metabolic Trf272 TPRO 7.2 g/dL 03/22/2015 Comp Metabolic Ope918 GLOB 2.5 g/dL 03/22/2015 Comp Metabolic Eei283 A/G Ratio 1.9 Ratio 03/22/2015 Comp Metabolic Ike488 Osmo 277 mOsmo 03/22/2015 FREE T4 2897156 FREE T4 1.24 NG/DL 10/18/2014 CHEM 14 8693352 AST 14 U/L 10/15/2014 CHEM 14 4445144 ALT 15 IU/L 10/15/2014 CHEM 14 7283495 BUN 23 MG/DL 10/15/2014 CHEM 14 3967279 ALBUMIN 4.8 GM/DL 10/15/2014 CHEM 14 1265546 CHLORIDE 105 MMOL/L 10/15/2014 CHEM 14 8419194 BILI TOT 0.3 MG/DL 10/15/2014 CHEM 14 5830520 ALK PHOS 60 U/L 10/15/2014 CHEM 14 2991490 SODIUM 140 MMOL/L 10/15/2014 CHEM 14 0628737 CREATININE 0.89 MG/DL 10/15/2014 CHEM 14 5349520 CALCIUM 10.0 MG/DL 10/15/2014 CHEM 14 6455263 POTASSIUM 3.7 MMOL/L 10/15/2014 CHEM 14 0765755 PROT TOT 7.2 GM/DL 10/15/2014 CHEM 14 7043252 GLUCOSE 97 MG/DL 10/15/2014 CHEM 14 7755343 BICARB 25 MMOL/L 10/15/2014 CHEM 14 4619424 ANION GAP 10 MEQ/L 10/15/2014 CBC 7770912 WBC 6.7 10e9/L 10/15/2014 CBC 0960338 RBC 4.49 10e12/L 10/15/2014 CBC 4487602 HGB 13.4 g/dL 10/15/2014 CBC 8623973 HCT DET 40.2 % 10/15/2014 CBC 2707354 MCV 89.5 fL 10/15/2014 CBC 6973344 MCH 29.8 pg 10/15/2014 CBC 2329648 MCHC 33.3 g/dL 10/15/2014 CBC 5570515 PLT 311 10e9/L 10/15/2014 CBC 4118548 MPV 10.7 fL 10/15/2014 CBC 7063871 BESSY % 63.6 % 10/15/2014 CBC 4155881 LY % 26.7 % 10/15/2014 CBC 2055872 MON % 6.6 % 10/15/2014 CBC 1640784 EOS % 2.8 % 10/15/2014 CBC 6775136 BASO % 0.3 % 10/15/2014 CBC 6192763 RDW 13.4 % 10/15/2014 CBC 9917156 ABS BESSY 4.26 10e9/L 10/15/2014 CBC 3518281 ABS LYMPH 1.79 10e9/L 10/15/2014 CBC 6437323 ABS MONO 0.44 10e9/L 10/15/2014 CBC 9782344 ABS EOS 0.19 10e9/L 10/15/2014 CBC 3748059 ABS BASO 0.02 10e9/L 10/15/2014 CBC 4049699 RDW-SD 43.2 fL 10/15/2014 A1C HPLC 5397739 A1C HPLC 26537-1 5.7 % 10/15/2014 TSH 9022860 TSH 4.083 uIU/ML 10/15/2014 GFR CALC 9523863 GFR AA >60 ML/MIN 10/15/2014 GFR CALC 9406602 GFR NON-AA >60 ML/MIN 10/15/2014 VIT D TOTL 0668012 VIT D TOTL 36 NG/ML 10/15/2014 GFR CALC 1591567 GFR AA >60 ML/MIN 06/23/2014 GFR CALC 7351544 GFR NON-AA >60 ML/MIN 06/23/2014 CHEM 14 7330941 AST 21 U/L 06/23/2014 CHEM 14 5206343 ALT 24 IU/L 06/23/2014 CHEM 14 6523453 BUN 18 MG/DL 06/23/2014 CHEM 14 7288135 ALBUMIN 4.7 GM/DL 06/23/2014 CHEM 14 20280313 CHLORIDE 109 MMOL/L 06/23/2014 CHEM 14 9101530 BILI TOT 0.3 MG/DL 06/23/2014 CHEM 14 3610897 ALK PHOS 53 U/L 06/23/2014 CHEM 14 4085743 SODIUM 140 MMOL/L 06/23/2014 CHEM 14 4865972 CREATININE 0.86 MG/DL 06/23/2014 CHEM 14 8087253 CALCIUM 10.2 MG/DL 06/23/2014 CHEM 14 2606653 POTASSIUM 3.9 MMOL/L 06/23/2014 CHEM 14 0658383 PROT TOT 6.9 GM/DL 06/23/2014 CHEM 14 3507011 GLUCOSE 87 MG/DL 06/23/2014 CHEM 14 3003909 BICARB 24 MMOL/L 06/23/2014 CHEM 14 2431949 ANION GAP 7 MEQ/L 06/23/2014 TSH 7525175 TSH 1.417 uIU/ML 06/23/2014 FREE T4 4783715 FREE T4 1.21 NG/DL 06/23/2014 TSH 2669201 TSH 3.399 uIU/ML 12/16/2013 CBC 5742086 WBC 6.4 10e9/L 12/15/2013 CBC 2158935 RBC 4.34 10e12/L 12/15/2013 CBC 0398672 HGB 12.9 g/dL 12/15/2013 CBC 7530373 HCT DET 39.3 % 12/15/2013 CBC 2549754 MCV 90.6 fL 12/15/2013 CBC 1657763 MCH 29.7 pg 12/15/2013 CBC 6268622 MCHC 32.8 g/dL 12/15/2013 CBC 7308196 PLT 292 10e9/L 12/15/2013 CBC 5515113 MPV 10.8 fL 12/15/2013 CBC 1138993 BESSY % 63.6 % 12/15/2013 CBC 2361190 LY % 25.7 % 12/15/2013 CBC 5493466 MON % 7.1 % 12/15/2013 CBC 4176591 EOS % 3.3 % 12/15/2013 CBC 2708131 BASO % 0.3 % 12/15/2013 CBC 0080514 RDW 13.4 % 12/15/2013 CBC 1599193 ABS BESSY 4.07 10e9/L 12/15/2013 CBC 8049831 ABS LYMPH 1.64 10e9/L 12/15/2013 CBC 2721544 ABS MONO 0.45 10e9/L 12/15/2013 CBC 6128022 ABS EOS 0.21 10e9/L 12/15/2013 CBC 7173655 ABS BASO 0.02 10e9/L 12/15/2013 CBC 6003154 RDW-SD 43.5 fL 12/15/2013 CHEM 14 7202117 AST 19 U/L 12/15/2013 CHEM 14 6099081 ALT 23 IU/L 12/15/2013 CHEM 14 4487110 BUN 23 MG/DL 12/15/2013 CHEM 14 3097032 ALBUMIN 4.7 GM/DL 12/15/2013 CHEM 14 0940992 CHLORIDE 108 MMOL/L 12/15/2013 CHEM 14 4334630 BILI TOT 0.3 MG/DL 12/15/2013 CHEM 14 9153072 ALK PHOS 58 U/L 12/15/2013 CHEM 14 3628627 SODIUM 139 MMOL/L 12/15/2013 CHEM 14 2687411 CREATININE 0.92 MG/DL 12/15/2013 CHEM 14 8888473 CALCIUM 10.0 MG/DL 12/15/2013 CHEM 14 6001518 POTASSIUM 4.0 MMOL/L 12/15/2013 CHEM 14 5333200 PROT TOT 7.1 GM/DL 12/15/2013 CHEM 14 9617383 GLUCOSE 82 MG/DL 12/15/2013 CHEM 14 3471004 BICARB 24 MMOL/L 12/15/2013 CHEM 14 7071512 ANION GAP 7 MEQ/L 12/15/2013 GFR CALC 7753402 GFR AA >60 ML/MIN 12/15/2013 GFR CALC 7905067 GFR NON-AA >60 ML/MIN 12/15/2013 URINALYSIS NONAUTO W/O SCOPE 67271 Specific [place] 1.025 DateTime(Free Text in Aprima) URINALYSIS NONAUTO W/O SCOPE 37170 PH 5 DateTime(Free Text in Aprima) URINALYSIS NONAUTO W/O SCOPE 86554 GLUCOSE neg DateTime( Free Text in Aprima) URINALYSIS NONAUTO W/O SCOPE 62742 Protein neg DateTime( Free Text in Aprima) URINALYSIS NONAUTO W/O SCOPE 60344 Blood neg DateTime(Free Text in Aprima) URINALYSIS NONAUTO W/O SCOPE 95051 Bilirubin neg DateTime(Free Text in Aprima) URINALYSIS NONAUTO W/O SCOPE 21021 Ketones neg DateTime( Free Text in Aprima) URINALYSIS NONAUTO W/O SCOPE 76051 Urobilinogen neg DateTime(Free Text in Apr) URINALYSIS NONAUTO W/O SCOPE 41317 Nitrite neg DateTime( Free Text in Apr) URINALYSIS NONAUTO W/O SCOPE 74250 Leukocytes neg DateTime(Free Text in Apr) Review [...] vein procedure that will be perform in [place] in May. Full Exam - General 1994 [...] Procedure Codes Date IMMUNIZATION ADMIN CPT -4: 66563 06/05/2018 FLU VAC NO PRSV 4 ZONIA 3 YRS+ CPT-4: 37166 06/05/2018 IMMUNIZATION ADMIN CPT -4: 55651 06/19/2017 FLU VAC NO PRSV 4 ZONIA 3 YRS+ CPT-4: 36983 06/19/2017 URINALYSIS NONAUTO W/O SCOPE CPT-4: 72202 09/08/2015 IMMUNIZATION ADMIN CPT -4: 39997 03/30/2015 ADACEL TDAP VACCINE 7 YRS/> IM CPT-4: 99173 03/30/2015 URINALYSIS NONAUTO W/O SCOPE CPT-4: 98684 03/22/2015 THER/PROPH/DIAG INJ SC/IM CPT-4: 60649 11/11/2014 ROCEPHIN, PER 250 MG CPT-4: J0696 11/11/2014 ROUTINE VENIPUNCTURE CPT-4: 82206 10/15/2014 HgbA1c CPT-4: 94578 10/15/2014 CBC (COMPLETE CBC W/AUTO DIFF WBC) CPT-4: 95481 10/15/2014 CHEM 14 (COMPREHEN METABOLIC PANEL) CPT-4: 73754 10/15/2014 TSH (ASSAY THYROID STIM HORMONE) CPT-4: 01323 10/15/2014 VIT D TOTL (VITAMIN D 25 HYDROXY) CPT-4: 08858 10/15/2014 FREE T4 (ASSAY OF FREE THYROXINE) CPT-4: 73373 10/15/2014 ROUTINE VENIPUNCTURE CPT-4: 96002 06/23/2014 CHEM 14 (COMPREHEN METABOLIC PANEL) CPT-4: 49481 06/23/2014 TSH (ASSAY THYROID STIM HORMONE) CPT-4: 77964 06/23/2014 FREE T4 (ASSAY OF FREE THYROXINE) CPT-4: 09660 06/23/2014 URINALYSIS NONAUTO W/O SCOPE CPT-4: 72581 12/15/2013 ROUTINE VENIPUNCTURE CPT-4: 30907 12/15/2013 THER/PROPH/DIAG INJ SC/IM CPT-4: 99890 11/03/2012 VITAMIN B12 INJECTION CPT-4: J3420 11/03/2012 THER/PROPH/DIAG INJ SC/IM CPT-4: 72555 10/20/2012 VITAMIN B12 INJECTION CPT-4: J3420 10/20/2012 VITAMIN B12 INJECTION CPT-4: J3420 09/11/2012 THER/PROPH/DIAG INJ SC/IM CPT-4: 22555 09/11/2012 THER/PROPH/DIAG INJ SC/IM CPT-4: 16984 08/11/2012 VITAMIN B12 INJECTION CPT-4: J3420 08/11/2012 THER/PROPH/DIAG INJ SC/IM CPT-4: 70865 07/21/2012 VITAMIN B12 INJECTION CPT-4: J3420 07/21/2012 Vital Signs Date Vital 11/18/2018 Blood Pressure 1: 136/82 Code : 8480-6 BMI: 33.1 Code : 64496-2 Heart Rate 1 : 75 bpm Height: 5'6" SpO2: 98% Temperature: 36.4 (C) / 97.5 (F) Weight: 205 lbs 10/02/2018 Blood Pressure 1: 128/78 Code : 8480-6 BMI: 32.0 Code : 42206-2 Heart Rate 1 : 73 bpm Height: 5'6" SpO2: 98% Weight: 198 lbs 08/06/2018 Blood Pressure 1: 116/78 Code : 8480-6 BMI: 32.3 Code : 16047-0 Heart Rate 1 : 71 bpm Height: 5'6" SpO2: 98% Weight: 200 lbs 07/08/2018 Blood Pressure 1: 128/70 Code : 8480-6 BMI: 32.4 Code : 31666-2 Heart Rate 1 : 76 bpm Height: 5'6" SpO2: 96% Weight: 201 lbs 02/11/2018 Blood Pressure 1: 122/84 Code : 8480-6 BMI: 32.4 Code : 44983-4 Heart Rate 1 : 71 bpm Height: 5'6" SpO2: 97% Weight: 201 lbs 11/12/2017 Blood Pressure 1: 130/82 Code : 8480-6 BMI: 32.3 Code : 75306-1 Height: 5'6" Weight: 200 lbs 08/20/2017 Blood Pressure 1: 126/78 Code : 8480-6 BMI: 32.3 Code : 69094-3 Heart Rate 1 : 66 bpm Height: 5'6" SpO2: 98% Weight: 200 lbs 06/24/2017 Blood Pressure 1: 134/78 Code : 8480-6 BMI: 34.2 Code : 34069-7 Heart Rate 1 : 71 bpm Height: 5'6" SpO2: 95% Weight: 212 lbs 05/22/2017 Blood Pressure 1: 122/78 Code : 8480-6 BMI: 33.9 Code : 06575-4 Heart Rate 1 : 76 bpm Height: 5'6" SpO2: 97% Weight: 210 lbs 05/10/2017 Blood Pressure 1: 130/84 Code : 8480-6 BMI: 34.1 Code : 43762-1 Heart Rate 1 : 90 bpm Height: 5'6" SpO2: 98% Temperature: 36.9 (C) / 98.5 (F) Weight: 211 lbs 04/08/2017 Blood Pressure 1: 132/78 Code : 8480-6 BMI: 34.4 Code : 46338-0 Heart Rate 1 : 72 bpm Height: 5'6" SpO2: 97% Weight: 213 lbs 02/20/2017 Blood Pressure 1: 130/90 Code : 8480-6 BMI: 33.9 Code : 09987-2 Heart Rate 1 : 74 bpm Height: 5'6" SpO2: 98% Weight: 210 lbs 11/21/2016 Blood Pressure 1: 132/74 Code : 8480-6 BMI: 34.2 Code : 30262-2 Heart Rate 1 : 66 bpm Height: 5'6" SpO2: 97% Weight: 212 lbs 08/29/2016 Blood Pressure 1: 136/82 Code : 8480-6 BMI: 33.7 Code : 40176-8 Heart Rate 1 : 70 bpm Height: 5'6" Respiratory Rate: 18 bpm SpO2: 98% Weight: 209 lbs 07/05/2016 Blood Pressure 1: 142/76 Code : 8480-6 BMI: 33.2 Code : 10670-6 Heart Rate 1 : 73 bpm Height: 5'6" SpO2: 98% Weight: 206 lbs 06/11/2016 Blood Pressure 1: 130/82 Code : 8480-6 BMI: 33.4 Code : 16575-6 Heart Rate 1 : 76 bpm Height: 5'6" SpO2: 97% Weight: 207 lbs 06/04/2016 Blood Pressure 1: 134/80 Code : 8480-6 BMI: 33.4 Code : 86622-7 Heart Rate 1 : 71 bpm Height: 5'6" SpO2: 98% Weight: 207 lbs 04/10/2016 Blood Pressure 1: 124/80 Code : 8480-6 BMI: 34.4 Code : 25287-1 Heart Rate 1 : 76 bpm Height: 5'6" SpO2: 96% Weight: 213 lbs 03/26/2016 Blood Pressure 1: 118/74 Code : 8480-6 BMI: 34.4 Code : 43333-7 Heart Rate 1 : 72 bpm Height: 5'6" SpO2: 98% Weight: 213 lbs 01/23/2016 Blood Pressure 1: 134/76 Code : 8480-6 BMI: 33.7 Code : 57024-3 Heart Rate 1 : 76 bpm Height: 5'6" SpO2: 97% Weight: 209 lbs 12/26/2015 Blood Pressure 1: 116/76 Code : 8480-6 BMI: 33.4 Code : 26812-2 Heart Rate 1 : 78 bpm Height: 5'6" SpO2: 98% Weight: 207 lbs 11/02/2015 Blood Pressure 1: 118/80 Code : 8480-6 BMI: 33.6 Code : 07026-2 Heart Rate 1 : 75 bpm Height: 5'6" SpO2: 95% Weight: 208 lbs 09/13/2015 Blood Pressure 1: 140/82 Code : 8480-6 BMI: 33.6 Code : 11338-7 Heart Rate 1 : 92 bpm Height: 5'6" SpO2: 96% Weight: 208 lbs 09/07/2015 Blood Pressure 1: 140/82 Code : 8480-6 BMI: 33.4 Code : 82960-0 Heart Rate 1 : 85 bpm Height: 5'6" SpO2: 95% Weight: 207 lbs 08/16/2015 Blood Pressure 1: 138/84 Code : 8480-6 BMI: 32.9 Code : 60244-8 Heart Rate 1 : 87 bpm Height: 5'6" SpO2: 97% Weight: 204 lbs 06/13/2015 Blood Pressure 1: 130/82 Code : 8480-6 BMI: 33.1 Code : 76039-3 Heart Rate 1 : 84 bpm Height: 5'6" SpO2: 96% Weight: 205 lbs 05/10/2015 Blood Pressure 1: 118/70 Code : 8480-6 BMI: 32.9 Code : 55686-8 Heart Rate 1 : 77 bpm Height: 5'6" SpO2: 97% Weight: 204 lbs 03/22/2015 Blood Pressure 1: 118/76 Code : 8480-6 BMI: 32.0 Code : 98950-5 Heart Rate 1 : 88 bpm Height: 5'6" Temperature: 36.2 (C) / 97.2 (F) Weight: 198 lbs 01/17/2015 Blood Pressure 1: 120/80 Code : 8480-6 BMI: 32.6 Code : 86684-2 Heart Rate 1 : 88 bpm Height: 5'6" Weight: 202 lbs 11/22/2014 Blood Pressure 1: 118/82 Code : 8480-6 BMI: 31.8 Code : 17967-6 Heart Rate 1 : 72 bpm Height: 5'6" Weight: 197 lbs 10/27/2014 Blood Pressure 1: 130/82 Code : 8480-6 BMI: 32.0 Code : 57970-0 Heart Rate 1 : 86 bpm Height: 5'6" SpO2: 97% Weight: 198 lbs 10/15/2014 Blood Pressure 1: 118/82 Code : 8480-6 BMI: 32.1 Code : 86063-7 Heart Rate 1 : 100 bpm Height: 5'6" Weight: 199 lbs 09/30/2014 Blood Pressure 1: 118/86 Code : 8480-6 BMI: 32.0 Code : 81631-8 Heart Rate 1 : 80 bpm Height: 5'6" Temperature: 35.7 (C) / 96.3 (F) Weight: 198 lbs 07/14/2014 Blood Pressure 1: 116/80 Code : 8480-6 BMI: 32.9 Code : 83076-0 Heart Rate 1 : 80 bpm Height: 5'6" Weight: 204 lbs 06/23/2014 Blood Pressure 1: 128/88 Code : 8480-6 BMI: 33.7 Code : 60174-0 Height: 5'6" Weight: 209 lbs 04/09/2014 Blood Pressure 1: 138/82 Code : 8480-6 Heart Rate 1: 90 bpm SpO2: 97% Temperature: 35.8 (C) / 96.5 (F) Weight: 210 lbs 03/16/2014 Blood Pressure 1: 116/80 Code : 8480-6 BMI: 34.1 Code : 53911-0 Heart Rate 1 : 88 bpm Height: 5'6" Weight: 211 lbs 01/12/2014 Blood Pressure 1: 124/70 Code : 8480-6 BMI: 33.4 Code : 68726-7 Heart Rate 1 : 76 bpm Height: 5'6" Weight: 207 lbs 12/15/2013 Blood Pressure 1: 144/100 Code: 8480-6 Blood Pressure 2: 124/90 Code: 8480-6 Heart Rate 1: 72 bpm Weight: 215 lbs 10/20/2013 Blood Pressure 1: 130/84 Code : 8480-6 BMI: 34.5 Code : 66208-1 Heart Rate 1 : 84 bpm Height: 5'6" Weight: 214 lbs 09/15/2013 Blood Pressure 1: 128/90 Code : 8480-6 BMI: 34.9 Code : 71911-1 Heart Rate 1 : 88 bpm Height: 5'6" Temperature: 36.5 (C) / 97.7 (F) Weight: 216 lbs 07/27/2013 Blood Pressure 1: 138/90 Code : 8480-6 BMI: 34.4 Code : 90004-1 Heart Rate 1 : 88 bpm Height: 5'6" Weight: 213 lbs 06/09/2013 Blood Pressure 1: 138/92 Code : 8480-6 Heart Rate 1: 88 bpm Weight: 04/20/2013 Blood Pressure 1: 142/92 Code : 8480-6 BMI: 34.4 Code : 50415-0 Heart Rate 1 : 88 bpm Height: 5'6" Weight: 213 lbs 03/23/2013 Blood Pressure 1: 116/84 Code : 8480-6 BMI: 34.1 Code : 94983-2 Heart Rate 1 : 76 bpm Height: 5'6" Weight: 211 lbs 01/21/2013 Blood Pressure 1: 130/88 Code : 8480-6 BMI: 34.5 Code : 62319-3 Heart Rate 1 : 80 bpm Height: 5'6" Weight: 214 lbs 12/25/2012 Blood Pressure 1: 112/70 Code : 8480-6 Heart Rate 1: 84 bpm Respiratory Rate : 20 bpm Weight: 214 lbs 8 oz 10/20/2012 Blood Pressure 1: 124/80 Code : 8480-6 BMI: 34.4 Code : 22673-5 Heart Rate 1 : 84 bpm Height: 5'6" Temperature: 36.7 (C) / 98.0 (F) Weight: 213 lbs 08/11/2012 Blood Pressure 1: 116/80 Code : 8480-6 BMI: 33.9 Code : 57457-8 Heart Rate 1 : 76 bpm Height: 5'6" Respiratory Rate: 20 bpm Weight: 210 lbs 07/10/2012 Blood Pressure 1: 110/76 Code : 8480-6 BMI: 46.5 Code : 02686-1 Heart Rate 1 : 84 bpm Height: [...] of Symptom _ weeks ago 09/30/2014 around [place] neck pain Location in the lower cervical/ [...] data Encounters Encounter Performer Location Codes Date ([id number]) [id number] EST. PATIENT, LEVEL IV Diagnosis: Generalized abdominal pain[ICD10: R10.84] Diagnosis: Diarrhea, unspecified[ICD10: R19.7] Mira Ledesma MD, [facility] CPT-4: 55578 11/18/2018 ([id number]) [id number] EST. 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 PATIENT, LEVEL IV Diagnosis: Essential (primary) hypertension[ICD10: I10] Diagnosis: Generalized anxiety disorder[ICD10: F41.1] Diagnosis: Slow transit constipation[ICD10: K59.01] Diagnosis: Other fatigue[ICD10: R53.83] Diagnosis: Nontoxic multinodular goiter[ICD10: E04.2] Caty Ledesma MD, [facility] CPT-4: 68608 08/06/2018 ([id number]) 63668 EST. PATIENT, LEVEL IV Diagnosis: Essential (primary) hypertension[ICD10: I10] Diagnosis: Major depressive disorder, recurrent, moderate[ICD10: F33.1] Diagnosis: Generalized anxiety disorder[ICD10: F41.1] Caty Ledesma MD, [facility] CPT-4: 22990 07/08/2018 ([id number]) 44943 EST. PATIENT, LEVEL IV Diagnosis: Nontoxic multinodular goiter[ICD10: E04.2] Diagnosis: Mixed hyperlipidemia[ICD10: E78.2] Diagnosis: Essential (primary) hypertension[ICD10: I10] Caty Ledesma MD, [facility] CPT-4: 42873 02/11/2018 ([id number]) 19923 EST. PATIENT, LEVEL IV Diagnosis: Nontoxic multinodular goiter[ICD10: E04.2] Diagnosis: Essential (primary) hypertension[ICD10: I10] Diagnosis: Other fatigue[ICD10: R53.83] Caty Ledesma MD, [facility] CPT- 4: 40549 11/12/2017 ([id number]) 12593 EST. PATIENT, LEVEL IV Diagnosis: Nontoxic multinodular goiter[ICD10: E04.2] Diagnosis: Major depressive disorder, recurrent, moderate[ICD10: F33.1] Diagnosis: Generalized anxiety disorder[ICD10: F41.1] Diagnosis: Essential (primary) hypertension[ICD10: I10] Caty Ledesma MD, [facility] CPT-4: 65771 08/20/2017 ([id number]) 40115 EST. PATIENT, LEVEL III Diagnosis: Acute recurrent maxillary sinusitis[ICD10: J01.01] Diagnosis: Encounter for other preprocedural examination[ICD10: Z01.818] Mira Ledesma MD, [facility] CPT-4: 96280 06/24/2017 ([id number]) 04874 EST. PATIENT, LEVEL IV Diagnosis: Acute recurrent frontal sinusitis[ICD10: J01.11] Diagnosis: Type 2 diabetes mellitus without complications[ICD10: E11.9] Diagnosis: Essential (primary) hypertension[ICD10: I10] Caty Ledesma MD, [facility] CPT-4: 95091 05/22/2017 ([id number]) 67823 EST. PATIENT, LEVEL III Diagnosis: Acute recurrent maxillary sinusitis[ICD10: J01.01] Diagnosis: Cough[ICD10: R05] Mira Ledesma MD, [facility] CPT-4: 87520 05/10/2017 ([id number]) 81674 EST. PATIENT, LEVEL IV Diagnosis: Generalized anxiety disorder[ICD10: F41.1] Diagnosis: Muscle weakness (generalized)[ICD10: M62.81] Diagnosis: Somnolence[ICD10: R40.0] Diagnosis: Snoring[ICD10: R06.83] Caty Ledesma MD, [facility] CPT-4: 81839 04/08/2017 ([id number]) 86767 EST. PATIENT, LEVEL IV Diagnosis: Vitamin deficiency, unspecified[ICD10: E56.9] Diagnosis: Major depressive disorder, recurrent, moderate[ICD10: F33.1] Diagnosis: Generalized anxiety disorder[ICD10: F41.1] Diagnosis: Impaired fasting glucose[ICD10: R73.01] Diagnosis: Chronic migraine without aura, not intractable, without status migrainosus[ICD10: G43.709] Diagnosis: Essential (primary) hypertension[ICD10: I10] Diagnosis: Mixed hyperlipidemia[ICD10: E78.2] Diagnosis: Nontoxic multinodular goiter[ICD10: E04.2] Caty Ledesma MD, [facility] CPT-4: 73221 02/20/2017 ([id number]) 75596 EST. PATIENT, LEVEL IV Diagnosis: Generalized anxiety disorder[ICD10: F41.1] Diagnosis: Major depressive disorder, recurrent, moderate[ICD10: F33.1] Diagnosis: Chronic pain syndrome[ICD10: G89.4] Diagnosis: Other specified polyneuropathies[ICD10: G62.89] Diagnosis: Muscle weakness (generalized)[ICD10: M62.81] Diagnosis: Essential (primary) hypertension[ICD10: I10] Caty Ledesma MD, [facility] CPT-4: 64527 11/21/2016 ([id number]) 20698 EST. PATIENT, LEVEL III Diagnosis: Generalized abdominal pain[ICD10: R10.84] Diagnosis: Essential (primary) hypertension[ICD10: I10] Caty Ledesma MD, [facility] CPT-4: 26313 08/29/2016 ([id number]) 05334 EST. PATIENT, LEVEL III Diagnosis: Epigastric pain[ICD10: R10.13] Caty Ledesma MD, [facility] CPT- 4: 34732 07/05/2016 ([id number]) 92508 EST. PATIENT, LEVEL III Diagnosis: Toxic gastroenteritis and colitis[ICD10: K52.1] Caty Ledesma MD [facility] CPT-4: 67324 06/11/2016 71357 EST. PATIENT, LEVEL III Diagnosis: Left upper quadrant pain[ICD10: R10.12] Estrella Ledesma MD [facility] CPT-4: 78294 06/04/2016 ([id number]) 48626 EST. PATIENT, LEVEL III Diagnosis: Cellulitis of left toe[ICD10: L03.032] Mira Ledesma MD [facility] CPT-4: 05193 04/10/2016 ([id number]) 73980 EST. PATIENT, LEVEL III Diagnosis: Essential (primary) hypertension[ICD10: I10] Diagnosis: Chronic pain syndrome[ICD10: G89.4] Diagnosis: Other fatigue[ICD10: R53.83] Caty Ledesma MD [facility] CPT- 4: 37802 03/26/2016 ([id number]) 07263 EST. PATIENT, LEVEL III Diagnosis: Gastro-esophageal reflux disease without esophagitis[ICD10: K21.9] Caty Ledesma MD [facility] CPT-4: 91681 01/23/2016 ([id number]) 17903 EST. PATIENT, LEVEL IV Diagnosis: Type 2 diabetes mellitus without complications[ICD10: E11.9] Diagnosis: Gastro-esophageal reflux disease without esophagitis[ICD10: K21.9] Diagnosis: Functional diarrhea[ICD10: K59.1] Caty Ledesma MD [facility] CPT-4: 84391 12/26/2015 99630 EST. PATIENT, LEVEL IV Diagnosis: Other seasonal allergic rhinitis[ICD10: J30.2] Diagnosis: Acute recurrent maxillary sinusitis[ICD10: J01.01] Diagnosis: Cough[ICD10: R05] Estrella Ledesma MD, [facility] CPT-4: 15825 11/02/2015 38812 EST. PATIENT, LEVEL III Diagnosis: Acute recurrent maxillary sinusitis[ICD10: J01.01] Diagnosis: Urgency of urination[ICD10: R39.15] Diagnosis: Cough[ICD10: R05] Diagnosis: Acute laryngopharyngitis[ICD10: J06.0] Estrella Ledesma MD, [facility] CPT-4: 65436 09/13/2015 24859 EST. PATIENT, LEVEL IV Diagnosis: Pain in left lower leg[ICD10: M79.662] Diagnosis: Cramp and spasm[ICD10: R25.2] Diagnosis: Acute nasopharyngitis [common cold][ICD10: J00] Estrella Ledesma MD, [facility] CPT-4: 67415 09/07/2015 ([id number]) 41021 EST. PATIENT, LEVEL IV Diagnosis: Essential (primary) hypertension[ICD10: I10] Diagnosis: Type 2 diabetes mellitus without complications[ICD10: E11.9] Diagnosis: Varicose veins of unspecified lower extremities with other complications[ICD10: I83.899] Caty Ledesma MD [facility] CPT-4: 91281 08/16/2015 ([id number]) 21713 EST. PATIENT, LEVEL IV Diagnosis: Type 2 diabetes mellitus without complications[ICD10: E11.9] Diagnosis: Other mixed anxiety disorders[ICD10: F41.3] Diagnosis: Vitamin deficiency, unspecified[ICD10: E56.9] Diagnosis: Essential (primary) hypertension[ICD10: I10] Caty Ledesma MD [facility] CPT-4: 83208 06/13/2015 ([id number]) 18335 EST. PATIENT, LEVEL IV Diagnosis: ESSENTIAL HYPERTENSION[ICD9: 401.9] Diagnosis: CHRONIC PAIN SYNDROME[ICD9: 338.4] Caty Ledesma MD [facility] CPT-4: 63820 05/10/2015 ([id number]) 24687 EST. PATIENT, LEVEL III Diagnosis: Back pain[ICD9: 724.5] Diagnosis: URINARY FREQUENCY[ICD9: 788.41] Caty Ledesma MD [facility] CPT- 4: 94284 03/22/2015 ([id number]) 88409 EST. PATIENT, LEVEL IV Diagnosis: ESSENTIAL HYPERTENSION[ICD9: 401.9] Diagnosis: DIABETES TYPE II[ICD9: 250.00] Diagnosis: Varicose vein[ICD9: 454.9] Caty Ledesma MD [facility] CPT- 4: 02535 01/17/2015 ([id number]) 07603 EST. PATIENT, LEVEL IV Diagnosis: HEADACHE[ICD9: 784.0] Diagnosis: Neck pain[ICD9: 723.1] Diagnosis: Vision changes[ICD9: 368.9] Diagnosis: Nausea[ICD9: 787.02] Mira Ledesma MD, [facility] CPT-4: 46417 11/22/2014 ([id number]) 15500 EST. PATIENT, LEVEL I Diagnosis: Meningitis exposure[ICD9: V01.89] Caty Ledesma MD, [facility] CPT-4: 21170 11/11/2014 ([id number]) 61144 EST. PATIENT, LEVEL IV Diagnosis: Elevated blood sugar[ICD9: 790.29] Diagnosis: ESSENTIAL HYPERTENSION[ICD9: 401.9] Caty Ledesma MD, [facility] CPT-4: 43871 10/27/2014 ([id number]) 43033 EST. PATIENT, LEVEL IV Diagnosis: Costochondritis[ICD9: 733.6] Diagnosis: ALLERGIC RHINITIS[ICD9: 477.9] Diagnosis: Vitamin D deficiency[ICD9: 268.9] Diagnosis: Elevated blood sugar[ICD9: 790.29] Mira Ledesma MD, [facility] CPT-4: 26376 10/15/2014 ([id number]) 45412 EST. PATIENT, LEVEL IV Diagnosis: ESSENTIAL HYPERTENSION[ICD9: 401.9] Diagnosis: Diarrhea[ICD9: 787.91] Caty Ledesma MD, [facility] CPT-4: 96986 09/30/2014 ([id number]) 33135 EST. PATIENT, LEVEL IV Diagnosis: Raynauds disease[ICD9: 443.0] Diagnosis: Nausea[ICD9: 787.02] Diagnosis: ESSENTIAL HYPERTENSION[ICD9: 401.9] Caty Ledesma MD, [facility] CPT-4: 45641 07/14/2014 ([id number]) 87825 EST. PATIENT, LEVEL IV Diagnosis: ESSENTIAL HYPERTENSION[ICD9: 401.9] Diagnosis: Esophageal reflux[ICD9: 530.81] Diagnosis: Hyponatremia[ICD9: 276.1] Diagnosis: OBESITY[ICD9: 278.00] Diagnosis: Chronic migraine[ICD9: 346.70] Caty Ledesma MD [facility] CPT- 4: 33837 06/23/2014 ([id number]) 11411 EST. PATIENT, LEVEL IV Diagnosis: ESSENTIAL HYPERTENSION[ICD9: 401.9] Diagnosis: GERD (gastroesophageal reflux disease)[ICD9: 530.81] Diagnosis: Costochondritis[ICD9: 733.6] Mira Ledesma MD [facility] CPT-4: 15345 04/09/2014 ([id number]) 96719 EST. PATIENT, LEVEL IV Diagnosis: ESSENTIAL HYPERTENSION[ICD9: 401.9] Diagnosis: RAYNAUD'S SYNDROME[ICD9: 443.0] Caty Ledesma MD [facility] CPT- 4: 55250 03/16/2014 ([id number]) 04468 EST. PATIENT, LEVEL III Diagnosis: ESSENTIAL HYPERTENSION[SNOMED: 28904725] Diagnosis: ALLERGIC RHINITIS[ICD9: 477.9] Diagnosis: Knee pain[ICD9: 719.46] Caty Ledesma MD [facility] CPT-4: 94865 01/12/2014 ([id number]) 22530 EST. PATIENT, LEVEL IV Diagnosis: ALLERGIC RHINITIS[ICD9: 477.9] Diagnosis: ESSENTIAL HYPERTENSION[SNOMED: 48146132] Diagnosis: Fatigue[ICD9: 780.79] Caty Ledesma MD [facility] CPT-4: 24227 12/15/2013 ([id number]) 64832 EST. PATIENT, LEVEL III Diagnosis: ESSENTIAL HYPERTENSION[SNOMED: 65475106] Diagnosis: Skin lesion[ICD9: 709.9] Diagnosis: Raynauds disease[ICD9: 443.0] Caty Ledesma MD [facility] CPT- 4: 99411 10/20/2013 ([id number]) 13525 EST. PATIENT, LEVEL III Diagnosis: ACUTE SINUSITIS[ICD9: 461.9] Caty Ledesma MD [facility] CPT- 4: 89585 09/15/2013 ([id number]) 13299 EST. PATIENT, LEVEL IV Diagnosis: ESSENTIAL HYPERTENSION[SNOMED: 00477878] Diagnosis: Peripheral neuropathy[ICD9: 356.9] Diagnosis: Vitamin D deficiency[ICD9: 268.9] Diagnosis: Vitamin B12 deficiency[ICD9: 266.2] Caty Ledesma MD, [facility] CPT-4: 65606 07/27/2013 ([id number]) 84879 EST. PATIENT, LEVEL III Diagnosis: ACUTE SINUSITIS[ICD9: 461.9] Diagnosis: COUGH[ICD9: 786.2] Mira Ledesma MD, [facility] CPT-4: 07562 06/09/2013 13282 EST. PATIENT, LEVEL IV Diagnosis: HEADACHE[ICD9: 784.0] Diagnosis: Dysphagia[ICD9: 787.20] Diagnosis: Esophageal reflux[ICD9: 530.81] Caty Ledesma MD, [facility] CPT- 4: 41187 04/20/2013 ([id number]) 08229 EST. PATIENT, LEVEL IV Diagnosis: Seasonal allergic rhinitis[ICD9: 477.9] Diagnosis: HEADACHE[ICD9: 784.0] Diagnosis: ESSENTIAL HYPERTENSION[SNOMED: 31712123] Caty Ledesma MD, [facility] CPT-4: 18222 03/23/2013 ([id number]) 14950 EST. PATIENT, LEVEL III Diagnosis: ABNORMALITY OF GAIT[ICD9: 781.2] Diagnosis: B-COMPLEX DEFIC NEC[ICD9: 266.2] Caty Ledesma MD, [facility] CPT-4: 60290 01/21/2013 ([id number]) 36643 EST. PATIENT, LEVEL IV Diagnosis: ESSENTIAL HYPERTENSION[SNOMED: 80769422] Diagnosis: Breast pain[ICD9: 611.71] Caty Ledesma MD [facility] CPT-4: 65366 12/25/2012 ([id number]) 47865 EST. PATIENT, LEVEL III Diagnosis: ESSENTIAL HYPERTENSION[SNOMED: 23380394] Diagnosis: ACUTE URI[ICD9: 465.9] Caty Ledesma MD, [facility] CPT-4: 24567 10/20/2012 ([id number]) 38506 EST. PATIENT, LEVEL IV Diagnosis: B-COMPLEX DEFIC NEC[ICD9: 266.2] Diagnosis: ESSENTIAL HYPERTENSION[SNOMED: 87416185] Diagnosis: Gait instability[ICD9: 781.2] Diagnosis: Back pain[ICD9: 724.5] [facility] CPT-4: 90262 08/11/2012 OFFICE VISIT, NEW - LEVEL 4 Diagnosis: ESSENTIAL HYPERTENSION[SNOMED: 53074478] Diagnosis: ACUTE SINUSITIS[ICD9: 461.9] Diagnosis: Gait instability[ICD9: 781.2] Diagnosis: Weakness of both legs[ICD9: 729.89] [facility] Blaine [facility] CPT-4: 69099 07/10/2012 Plan of Care Planned Activity Notes [...] medications. 10/02/2018 App[facility]ment[phone] [facility] ([facility] min) Moderate 10/02/2018 Patient Education: [...] pristiq 08/06/2018 Appointment: [phone] [facility] (15 min) Moderate 08/06/2018 Patient Education: Patient Medication Summary Completed 08/06/2018 Patient Education: Patient Medication Summary Completed 07/09/2018 Care Plan: [employer] : 43625-2 Pending 07/09/2018 Visit Plan: Hypertension - well [...] dosing. 07/08/2018 Appointment: [phone] [facility] (15 min) Moderate 07/08/2018 Patient Education: [...] to medications. 02/11/2018 Appointment: Caty Ledesma [facility]Ptel: [facility] [place] (15 min) Moderate 02/11/2018 Patient [...] 25mcg daily. 11/12/2017 Appointment: [facility] Led[facility]ma [facility] [phone] [facility] [place] (15 min) Moderate 11/12/2017 Patient [...] healing well. 08/20/2017 Appointment: Caty Ledesma WPtel: [facility] [place] (15 min) Moderate 08/20/2017 Patient [...] Weaver 06/24/2017 App[facility]ment[phone] (30 min) Complex 06/24/2017 Patient Education: Patient [...] less controlled. 05/22/2017 Appointment: [facility] Led[facility] [phone] [facility] (15 min) Moderate 05/22/2017 Patient Education: Patient Medication Summary Completed 05/22/2017 Visit Plan: Sinusitis - Pt has acute infection - pain in face, maxillary region, Pt informed to use decongestant, RX given to patient, sinus rinses also recommended. Call if symptoms do not show improvement. 05/10/2017 Appointment: Mira Valladares WPtel: [phone] [phone] [place] (15 min) Moderate 05/10/2017 Patient Education: Patient Medication Summary Completed 05/10/2017 Visit Plan: Fatigue - daytime - recommended sleep study, change pristiq to night-time dosing. Sleep study to be scheduled - RX for sleep study sent to hospital. - pt has significant sleepiness during the day - she had a score of 17 on epiworth sleepiness scale. 04/08/2017 Appointment: Caty Ledesma WPtel: [phone] [facility] [place] (15 min) Moderate 04/08/2017 Patient Education: [...] ultrasound. 02/20/2017 Appointment: [facility] Led[facility]ma [phone] [facility] [place] (30 min) Complex 02/20/2017 Patient [...] patient. 11/21/2016 Appointment: Caty Ledesma WPtel: [phone] [facility] [place] (15 min) Moderate 11/21/2016 Patient Education: [...] not improving. 08/29/2016 Appointment: [facility] Led[facility] [phone] [facility] [place] (30 min) Complex 08/29/2016 Patient Education: Patient Medication Summary Completed 08/29/2016 Patient Education: Hypertension Completed 08/29/2016 Visit Plan: referral to dr. aburto for cysts of right abdomen near ribs 07/05/2016 Appointment: Caty Ledesma WPtel: [phone] [facility] [place] (15 min) Moderate 07/05/2016 Patient Education: [...] pain. 06/04/2016 Appointment: [phone] [facility] [place] (15 min) Moderate 06/04/2016 Patient [...] of plan. 04/10/2016 Appointment: Mira Valladares WPtel: [phone] (30 min) [facility] 04/10/2016 Patient Education: Patient Medication Summary [...] 12/26/2015 Care Plan: Referral Order SNOMED-CT : 076840453 Pending 12/26/2015 Appointment: Caty Ledesma WPtel: [address] [place], [place] [address] [place] (15 min) Moderate 12/19/2015 Visit Plan: [...] to keep appt with Dr. Kwon in [place] for treatment of varicose veins. 08/16/2015 Patient [...] over-medication. 05/10/2015 Appointment: Cat[facility] Led[facility]ma [facility]Pt[facility] [phone] [facility] [place] Follow up 05/10/2015 Patient Education: [...] veins - referral to Vascular team from [facility] 01/17/2015 Appointment: Caty Led[facility]ma [facility]Ptel: [phone] [facility] [place] Follow up 01/17/2015 Patient Education: Patient Medication Summary Completed 01/17/2015 Patient Education: Hypertension Completed 01/17/2015 Care Plan: Referral Order referral to [facility] for varicose veins - need to see if the patient can have her ultrasound studies HERE with [employer] SNOMED-CT : [id number] Ordered 01/17/2015 Appointment: Caty Led[facility]ma [facility]Ptel[facility] [phone] [facility] [place] Follow up 01/04/2015 Visit Plan: Worsening oxefhuyr-lllivg-pgwj injury 1 week ago-recommend CT head due [...] three weeks. 10/27/2014 Appointment: Caty Ledesma WPtel: [address] [place] [id number] Follow up 10/27/2014 Patient Education: Patient Medication [...] the nasal steroid allergy spray. Elevated blood fejsdd-ogvvwnkbe-qxonai-check Hgb A1c as well as TSH Vitamin D deficiency-check vitamin D level 10/15/2014 Appointment: Follow up 10/15/2014 Patient Education: Patient Medication Summary Completed 10/15/2014 Care Plan: TSH Pending 10/15/2014 Care Plan: A1C HPLC [facility] : 75252-3 Pending 10/15/2014 Care Plan: VIT D TOTL [...] stomach pain. 09/30/2014 Appointment: Caty Ledesma WPtel: [address] [place] [address] Follow up 09/30/2014 Patient Education: Patient Medication Summary Completed 09/30/2014 Patient Education: Hypertension Completed 09/30/2014 Appointment: Caty Ledesma WPtel: [address] [place] [id number] Follow up 09/29/2014 Visit Plan: Nausea - [...] at home. 07/14/2014 Appointment: Caty Ledesma WPtel: [address] [place] [address] Follow up 07/14/2014 Patient Education: Patient Medication [...] labs. 06/23/2014 Appointment: [facility] [phone] [facility] Follow [facility] 06/23/2014 Patient Education: Patient [...] are worsening. 03/16/2014 Appointment: Caty Led[facility]ma [facility]Ptel: [phone] [facility] Follow [facility] 03/16/2014 Patient Education: Patient [...] allergy spray. 01/12/2014 Appointment: Caty Ledesma WPtel: [facility]5 [facility] Follow up 01/12/2014 Patient Education: Patient [...] Fatigue-check labs 12/15/2013 Appointment: Mira Valladares WPtel: [facility]5 [phone] Follow up 12/15/2013 Patient Education: Patient Medication [...] - on scalp - referral to her delivery motorcycle driver - Dr. Teran. Recommended pt to call for appt. Raynaud - very mild case - pt to continue with norvasc, monitor symptoms, keep hands warm, call if symptoms worsen, if fingers turn and stay persistently purple, will consider topical treatments versus increase in norvasc. 10/20/2013 Appointment: Caty Ledesma WPtel: [facility]5 [facility] Follow up 10/20/2013 Patient Education: Patient Medication Summary Completed 10/20/2013 Patient Education: Hypertension Completed 10/20/2013 Visit Plan: Sinusitis - Pt has acute infection - pain in face, maxillary region, Pt informed to use decongestant, RX given to patient, sinus rinses also recommended. Call if symptoms do not show improvement. 09/15/2013 Appointment: Caty Ledesma WPtel: [facility]5 [facility] Sick 09/15/2013 Patient Education: Patient Medication [...] tolerance test. 07/27/2013 Appointment: Caty Ledesma WPtel: [facility]5 [facility] Follow up 07/27/2013 Patient Education: Patient Medication Summary Completed 07/27/2013 Patient Education: Hypertension Completed 07/27/2013 Visit Plan: Sinusitis - Pt has acute infection - pain in face, maxillary region, Pt informed to use decongestant, RX given to patient, sinus rinses also recommended. Call if symptoms do not show improvement. 06/09/2013 Appointment: M[facility] Valladares [facility]el[facility] [phone] [phone] S[place] 06/09/2013 Patient Education: Patient Medication [...] and pepcid 04/20/2013 Appointment: Mira Valladares WPtel: [facility]4 [phone] [facility] 04/20/2013 Patient Education: Patient Medication Summary Completed [...] home. 03/23/2013 Appointment: [facility] Led[facility] [phone] [facility] [place] Follow up 03/23/2013 Patient Education: Patient Medication Summary Completed 03/23/2013 Patient Education: Hypertension Completed 03/23/2013 Visit Plan: Gait abnormality with falling at home and hitting head - suspect concussion - recommend that Stephanie see Jose Luis at [facility] for balance and gait training. B12 deficiency - improved with b12 shots, will have patient go back to every 2 week injections instead of weekly injections. 01/21/2013 Appointment: Cat[facility] Led[facility]ma [facility] [phone] [facility] [place] Follow up 01/21/2013 Patient Education: [...] have mammo. 12/25/2012 Appointment: Cat[facility] Led[facility]ma [facility]Pt[facility] [phone] [facility] [place] Follow up 12/25/2012 Patient Education: [...] clinic today. 10/20/2012 Appointment: Cat[facility] Led[facility]ma [facility]Ptel[facility] [phone] [facility] [place] Follow up 10/20/2012 Patient Education: Patient Medication Summary Completed 10/20/2012 Patient Education: Hypertension Completed 10/20/2012 Appointment: Cat[facility] Led[facility]ma [facility] [phone] [facility] [place] Injection 09/11/2012 Patient Education: Patient Medication Summary Completed 09/11/2012 Appointment: [facility] Led[facility]ma [facility]Pt[facility] [phone] [facility] [place] Injection 08/18/2012 Visit Plan: Hypertension [...] a surgeon. 08/11/2012 Appointment: Caty Ledesma WPtel: [address] [place], [place] [id number] Follow up 08/11/2012 Patient Education: Patient Medication Summary Completed 08/11/2012 Patient Education: Hypertension Completed 08/11/2012 Appointment: Caty Ledesma WPtel: [address] [place] [address] [place] Injection 07/21/2012 Patient Education: Patient Medication [...] d level. 07/10/2012 Appointment: [facility] Valladares [facility] [phone] [phone] [place] New Patient 07/10/2012 Patient Education: Patient Medication Summary Completed 07/10/2012 Patient Education: High Blood Pressure: Essential Hypertension Completed 2011 Referral: Blaise Aburto Info. faxed Completed Referral: Blaise Aburto Referral Appointment Requested Referral: [facility], - Referral Appointment Requested [...] recommended pt to have mammo. . Worsening hjvvnyne-mhtydl-xcrc injury 1 week ago- recommend CT head [...] the nasal steroid allergy spray. Elevated blood kvpuvr-vravgzppi-aactju-check Hgb A1c as well as TSH Vitamin [...] to keep appt with Dr. Kwon in [place] for treatment of varicose veins. . Sinusitis [...] veins - referral to Vascular team from [facility] RESTART NASAL SPRAY TWICE DAILY CHECK BLOOD [...] the nasal steroid allergy spray. Will send [employer] Will call out phenergan with codeine cough [...] concussion - recommend that Stephanie Amaya at [facility] for balance and gait training. B12 [...] - on scalp - referral to her delivery motorcycle driver - Dr. Teran. Recommended pt to call [...]
[2019-01-07 07:47] LABS: HEMOGLOBIN 14.3 G/DL (11.5-16.0); RED CELL DISTRIBUTION WIDTH 14.9 % (10.0-14.5)
--- NOTE | 2019-01-07 07:50 | Diagnostic Imaging Report ---
INDICATION: Chest pain and hypertension. Upright portable AP view of the chest is obtained with comparison made study of 04/09/2014. FINDINGS: Heart size and pulmonary vascularity are within normal limits, and the lungs are clear, bilaterally. IMPRESSION: Unremarkable chest. Dictated by: Dictated on workstation # [id number]
[2019-01-07 07:51] LABS: RBC,URINE RARE /HPF
[2019-01-07 07:52] LABS: BACTERIA,URINE TRACE /HPF
--- OUTSIDE RECORDS SUMMARY | 2019-01-07 07:53 | XMS REPORT | CCD ---
Author Author Mira Valladares Organization [facility] Address [address] [place] [address] Phone Care Team Providers Care Firearms Specialist Name Role Phone PP Unavailable CCM Unavailable Summary Purpose Interface Exchange Insurance Providers Payer name Policy type / Coverage type Covered green party ID Effective Begin Date Effective End Date [facility] Commercial Insurance [id number] Unknown WPS Medicare Part B Commercial Insurance [id number] 2018 Unknown Family history Daughter Diagnosis Age [...] status Unknown 03/26/[address]: 0952509 Former smoker quit 1979 03/26/2016 Number of children Unknown 3 07/10/[address]: 851755411 Never drinks alcohol 07/10/2012 Has the patient ever used illegal drugs? Unknown Has never used illegal drugs 07/10/2012 Allergies, Adverse Reactions, Alerts Substance Reaction Codes Entered Date Inactivated Date Status cymbalta RxNorm: 371051 07/14/2012 No Inactive Date Active Savella nausea RxNorm: 758987 07/14/2012 No Inactive Date Active Metanx nausea RxNorm: 376238 07/14/2012 No Inactive Date Active Gluten Unknown 07/10/2012 No Inactive Date Active Peanuts Unknown 07/10/2012 No Inactive Date Active Levaquin hives RxNorm: 19444 07/14/2012 No Inactive Date Active macrobid pruritis, hives, RxNorm: 789591 07/14/2012 No Inactive Date Active percocet pruritis RxNorm: 294807 07/14/2012 No Inactive Date Active PREDNISONE pruritis, RxNorm: 8640 07/14/2012 No Inactive Date Active ultram pruritis, hives RxNorm: 21377 06/11/2016 No Inactive Date Active GABAPENTIN nausea, Unknown 07/14/2012 No Inactive Date Active Past Medical History Illness Codes Condition Status Onset Date Resolved Date Essential (primary) hypertension ICD-9: 401.1 ICD-10: I10 [...] : 789.06 ICD-10: R10.13 Active 07/04/2016 Unknown Generalized abdominal pain ICD-9: 789.07 ICD-10: R10.84 Active 08/29/2016 Unknown Toxic gastroenteritis and colitis ICD-9: 558.2 [...] Problems Condition Codes Effective Dates Condition Status Essential (primary) hypertension ICD-9: 401.1 ICD-10: I10 [...] ICD-9 : 789.06 ICD-10: R10.13 07/04/2016 Active Generalized abdominal pain ICD-9: 789.07 ICD-10: R10.84 08/29/2016 Active Toxic gastroenteritis and colitis ICD-9: 558.2 [...] mg over 3 days transdermal patch RxNorm: 706031 1 Patch TD Q72H 10/02/2018 10/31/2018 Active Pristiq 50 mg tablet,extended release RxNorm: 717660 1 Tablet(s) PO BID 09/05/2018 08/30/2019 Active Glucocard Vital Sensor strips RxNorm: TEST TWO TIMES A DAY 03/06/2020 Active Request already responded to by other means (e.g. phone or fax) Vitamin B-12 1,000 mcg/mL injection solution RxNorm: 079059 INJECT 1 ML INTRAMUSCULARLY ONCE WEEKLY 08/29/2018 Active amlodipine 5 mg tablet RxNorm: 005169 1 Tablet(s) PO daily 11/19/2019 Active topiramate 100 mg tablet RxNorm: 458603 1/2 Tablet(s) PO BID 08/04/2019 Active [SAVINGS FOR UNINSURED PATIENTS -- BIN:[id number], PCN: ASPROD1, Group: [id number], ID# [id number], Process claim through Soma, for questions: . THIS IS NOT INSURANCE.] amlodipine 10 mg tablet RxNorm: 777038 1/2 Tablet(s) PO daily 08/06/2018 08/26/2018 Inactive Pristiq 50 mg tablet,extended release RxNorm: 655954 1 Tablet(s) PO BID 08/06/2018 09/04/2018 Inactive Voltaren 1 % topical gel RxNorm: 993813 APPLY 2 GRAMS TOPICALLY FOUR TIMES A DAY 07/24/2018 10/31/2018 Active Fish Oil 1,000 mg capsule RxNorm: 1 Capsule(s) PO TID 201707/02/2019 Active Valium 5 mg tablet RxNorm: 833395 1 Tablet(s) PO PRN as needed 07/08/2018 No Stop Date Active Vagifem 10 mcg vaginal tablet RxNorm: 641539 1 Tablet(s) VAG daily 07/08/2018 No Stop Date Active naproxen sodium 550 mg tablet RxNorm: 631638 Tablet(s) as needed TAKE 1 TABLET BY MOUTH TWO TIMES DAILY 07/08/20182018 Active - Ref: [id number] Pristiq 100 mg tablet,extended release RxNorm: 083433 1 Tablet(s) PO daily 07/08/2018 08/05/2018 Inactive Voltaren 1 % topical gel RxNorm: 099028 APPLY 2 GRAMS TOPICALLY FOUR TIMES A DAY 07/08/2018 07/23/2018 Inactive topiramate 100 mg tablet RxNorm: 733831 1 Tablet(s) PO BID 08/05/2018 Inactive [SAVINGS FOR UNINSURED PATIENTS -- BIN:[id number], PCN: ASPROD1, Group: [id number] , ID# [id number], Process claim through Soma, for questions: . THIS IS NOT INSURANCE.] Valium 5 mg tablet RxNorm: 656334 1 Tablet(s) PO PRN as needed 06/24/2018 07/07/2018 Inactive folic acid 1 mg tablet RxNorm: 605818 TAKE ONE TABLET BY MOUTH EVERY DAY 05/27/2018 04/21/2019 Active Valium 5 mg tablet RxNorm: 242038 1 Tablet(s) PO PRN as needed 02/21/2018 No Stop Date Active Valium 5 mg tablet RxNorm: 428687 1 Tablet(s) PO PRN as needed 11/12/2017 02/20/2018 Inactive Synthroid 25 mcg tablet RxNorm: 566629 1 Tablet(s) PO daily 02/201811/11/2017 Inactive Synthroid 25 mcg tablet RxNorm: 798217 1 Tablet(s) PO daily 02/201802/10/2018 Inactive Nitro-Bid 2 % transdermal ointment RxNorm: 523159 APPLY TO AFFECTED AREA(S) TOPICALLY THREE TIMES A DAY NEEDED FOR RAYNAUDS SYMPTOMS OF FEET 08/26/2017 10/24/2017 Inactive Vitamin B-12 1,000 mcg/mL injection solution RxNorm: 170449 INJECT 1ML INTRAMUSCULARLY ONCE WEEKLY 08/23/2017 Inactive Request already responded to by other means (e.g. phone or fax) Vitamin B-12 1,000 mcg/mL injection solution RxNorm: 881129 Milliliter(s) INJECT 1ML INTRAMUSCULARLY ONCE WEEKLY 08/21/2017 08/22/2017 Inactive naproxen sodium 550 mg tablet RxNorm: 431439 TAKE 1 TABLET BY MOUTH TWO TIMES DAILY 08/09/2017 11/06/2017 Inactive - Ref: [id number] Combivent Respimat 20 mcg-100 mcg/actuation solution for inhalation RxNorm: 0385271 1-2 Puff(s) INH Q4 PRN 07/26/2017 No Stop Date Active Valium 5 mg tablet RxNorm: 095380 1 Tablet(s) PO PRN as needed 06/27/2017 11/11/2017 Inactive doxycycline hyclate 100 mg tablet RxNorm: 125541 1 Tablet(s) PO BID 06/24/2017 06/30/2017 Inactive azithromycin 250 mg tablet RxNorm: 658557 1 Tablet(s) PO UD 2 tabs on day #1, then 1 pill daily x 4 more days 05/22/2017 08/20/2017 Inactive hydrocodone 10 mg-chlorpheniramine 8 mg/5 mL oral susp extend.rel 12hr RxNorm: 7315560 5 PO as needed 05/10/20172017 Inactive Augmentin 875 mg-125 mg tablet RxNorm: 710448 1 Tablet(s) PO BID 05/10/2017 05/16/2017 Inactive folic acid 1 mg tablet RxNorm: 809779 TAKE ONE TABLET BY MOUTH EVERY DAY 05/09/2017 05/03/2018 Inactive Carafate 1 gram tablet RxNorm: 385431 TAKE ONE TABLET BY MOUTH FOUR TIMES A DAY 30 MINUTES BEFORE MEALS AND AT BEDTIME 03/18/2017 07/07/2018 Inactive scopolamine 1.5 mg transdermal patch (1 mg over 3 days) RxNorm: 114439 1 Patch TD Q72H use for sea sickness 02/20/201703/05 Inactive Pristiq 50 mg tablet,extended release RxNorm: 449668 1 Tablet(s) PO daily 01/15/2017 07/07/2018 Inactive Pristiq 50 mg tablet,extended release RxNorm: 516139 1 Tablet(s) PO BID 12/20/2016 01/14/2017 Inactive naproxen sodium 550 mg tablet RxNorm: 755039 Tablet(s) Take 1 tablet by mouth twice a day 11/14/2016 08/08/2017 Inactive [place] Lancets 33 gauge RxNorm: TEST TWO TIMES A DAY 11/12/2016 04/10/2017 Inactive Phenergan VC-Codeine 6.25 mg-5 mg-10 mg/5 mL syrup RxNorm: 700989 5 Milliliter(s) PO Q6 as needed cough 09/06/20162016 Inactive Nitro-Bid 2 % transdermal ointment RxNorm: 913481 APPLY TO AFFECTED AREA(S) TOPICALLY THREE TIMES A DAY NEEDED FOR RAYNAUDS SYMPTOMS OF FEET 08/21/2016 10/19/2016 Inactive Voltaren 1 % topical gel RxNorm: 732339 APPLY 2 GRAMS TOPICALLY FOUR TIMES A DAY 08/21/2016 12/22/2016 Inactive Vitamin B-12 1,000 mcg/mL injection solution RxNorm: 245417 INJECT 1ML INTRAMUSCULARLY ONCE WEEKLY 08/21/2016 Inactive folic acid 1 mg tablet RxNorm: 299505 TAKE ONE TABLET BY MOUTH EVERY DAY 08/13/2016 04/09/2017 Inactive Flagyl 500 mg tablet RxNorm: 689724 1 Tablet(s) PO TID 201506/22/2016 Inactive Cholestyramine Light 4 gram oral powder RxNorm: 771146 1 packet PO PRN as needed 06/11/2016 No Stop Date Active Flexeril 10 mg tablet RxNorm: 960586 1 Tablet(s) PO as needed 02/19/2017 Inactive 1 hs Vagifem 10 mcg vaginal tablet RxNorm: 518741 1 Tablet(s) VAG BIW -TIW 06/11/2016 07/07/2018 Inactive Flagyl 500 mg tablet RxNorm: 186007 1 Tablet(s) PO TID 201506/10/2016 Inactive Lomotil 2.5 mg-0.025 mg tablet RxNorm: 0121023 1 Tablet(s) PO AC & HS as needed 04/24/2016 05/23/2016 Inactive Keflex 500 mg capsule RxNorm: 641982 1 Capsule(s) PO TID 201504/11/2016 Inactive Keflex 500 mg capsule RxNorm: 498463 1 Capsule(s) PO TID 201504/18/2016 Inactive Pristiq 50 mg tablet,extended release RxNorm: 483650 1 Tablet(s) PO QAM 03/30/2016 12/19/2016 Inactive amitriptyline 25 mg tablet RxNorm: 430794 1/2 Tablet(s) PO QHS x [address] pablo 03/30/2016 06/10/2016 Inactive potassium chloride 20 mEq/15 mL oral liquid RxNorm: 261045 TAKE 2 TABLESPOONS DAILY 03/23/2016 09/18/2016 Inactive Glucocard Vital Sensor strips RxNorm: TEST TWO TIMES A DAY 10/17/2017 Inactive Questran 4 gram oral powder RxNorm: 388704 1 dose PO daily 04/201602/14/2016 Inactive Questran 4 gram oral powder RxNorm: 618147 1 dose PO daily 04/201603/15/2016 Inactive Miralax 17 gram oral powder packet RxNorm: 358655 1 PO daily 02/08/2016 Inactive Miralax 17 gram oral powder packet RxNorm: 059227 1 PO daily 06/10/2016 Inactive Carafate 1 gram tablet RxNorm: 589373 1 Tablet(s) PO QID take 30 minutes before meals and at bedtime 01/23/20162015 Inactive Vitamin D2 50,000 unit capsule RxNorm: 172974 1 Capsule(s) PO QW 12/26/2015 03/24/2016 Inactive Tamiflu 75 mg capsule RxNorm: 612828 1 Capsule(s) PO daily 11/2111/21/2015 Inactive Tamiflu 75 mg capsule RxNorm: 881877 1 Capsule(s) PO daily 11/2112/01/2015 Inactive folic acid 1 mg tablet RxNorm: 959657 TAKE ONE TABLET BY MOUTH EVERY DAY 11/03/2015 07/29/2016 Inactive Keflex 500 mg capsule RxNorm: 365772 1 Capsule(s) PO TID 201511/11/2015 Inactive Augmentin 500 mg-125 mg tablet RxNorm: 845943 1 Tablet(s) PO TID 09/13/2015 09/22/2015 Inactive Zithromax Z-Juanpablo 250 mg tablet RxNorm: 835792 1 Tablet(s) PO 12/25/2015 Inactive KimaniTomaddison Alba Lancets 33 gauge RxNorm: 1 test Miscellaneous BID 06/21/2015 06/14/2016 Inactive Nitro-Bid 2 % transdermal ointment RxNorm: 708089 1 Application TD TID as needed raynauds symptoms of feet 06/01/201508/29 Inactive Vitamin B-12 1,000 mcg/mL injection solution RxNorm: 334860 INJECT 1ML INTRAMUSCULARLY ONCE WEEKLY 05/16/201503/2016 Inactive Voltaren 1 % topical gel RxNorm: 548788 2 Gram(s) TOP QID 05/1007/08/2015 Inactive potassium chloride 20 mEq/15 mL oral liquid RxNorm: 220443 TAKE 2 TABLESPOONS DAILY 04/22/2015 10/18/2015 Inactive naproxen sodium 550 mg tablet RxNorm: 455641 Tablet(s) Take 1 tablet by mouth twice a day 03/10/2015 06/01/2016 Inactive naproxen sodium 550 mg tablet RxNorm: 633939 Take 1 tablet by mouth twice a day 03/09/2015 11/15/2016 Inactive 2nd Attempt Pristiq 50 mg tablet,extended release RxNorm: 013078 1 Tablet(s) PO BID 03/09/2015 03/08/2015 Inactive naproxen sodium 550 mg tablet RxNorm: 258674 1 Tablet(s) PO BID 03/09/2015 03/08/2015 Inactive naproxen sodium 550 mg tablet RxNorm: 513996 Take 1 tablet by mouth twice a day 03/09/2015 03/09/2015 Inactive Pristiq 50 mg tablet,extended release RxNorm: 165961 Take 1 tablet twice a day 03/09/2015 03/29/2016 Inactive folic acid 1 mg tablet RxNorm: 135781 TAKE ONE TABLET BY MOUTH EVERY DAY 01/17/2015 11/02/2015 Inactive Vitamin B-12 1,000 mcg/mL injection solution RxNorm: 345912 INJECT 1 MLS DIRECTED ONCE WEEKLY 12/03/20142015 Inactive hydrocodone 10 mg-acetaminophen 325 mg tablet RxNorm: 818283 1 Tablet(s) PO Q6 PRN 11/22/2014 12/21/2014 Inactive [SAVINGS FOR NON-COVERED DRUGS -- BIN:[id number], PCN: ASPROD1, Group: XXXXX, ID# [id number], Questions: . THIS IS NOT INSURANCE.] ceftriaxone 1 gram solution for injection RxNorm: 1965152 Inj 11/11/2014 11/11/2014 Inactive [SAVINGS FOR NON-COVERED DRUGS -- BIN:[id number], PCN: ASPROD1, Group: XXXXX, ID# [id number], Questions: . THIS IS NOT INSURANCE.] Glucocard Vital Sensor strips RxNorm: 1 test Miscellaneous BID 10/27/2014 10/26/2014 Inactive DX code 790.29 Glucocard Vital Sensor strips RxNorm: 1 test Miscellaneous BID 10/27/2014 11/20/2015 Inactive DX code 790.29 [SAVINGS FOR UNINSURED PATIENTS -- BIN:058837, PCN: ASPROD1, Group: [id number], ID# [id number], Process claim through [employer], for questions: . THIS IS NOT INSURANCE.] topiramate 100 mg tablet RxNorm: 134405 2 Tablet(s) PO BID 04/27/2015 Inactive [SAVINGS FOR UNINSURED PATIENTS -- BIN:561982, PCN: ASPROD1, Group: [id number] , ID# [id number], Process claim through [employer], for questions: . THIS IS NOT INSURANCE.] Cholestyramine Susp Light 4 gram powder for susp in a packet RxNorm: 557343 packet PO PRN as needed 08/30/20142015 Inactive Nitro-Bid 2 % transdermal ointment RxNorm: 139317 1 Application TD TID as needed raynauds symptoms of feet 07/14/201410/11 Inactive Flonase 50 mcg/actuation nasal spray,suspension RxNorm: 268628 PLACE 2 SPRAYS IN EACH NOSTRIL DAILY 05/25/2014 08/22/2014 Inactive potassium chloride 20 mEq/15 mL oral liquid RxNorm: 952436 2 Tablespoon(s) PO daily 04/20/2014 04/21/2015 Inactive potassium chloride 10 % oral liquid RxNorm: 425333 2 Tablespoon(s) PO daily 04/20/2014 04/19/2014 Inactive potassium chloride 10 % oral liquid RxNorm: 779152 2 Tablespoon(s) PO daily 04/09/2014 04/19/2014 Inactive folic acid 1 mg tablet RxNorm: 009801 Tablet(s) PO TAKE ONE TABLET BY MOUTH EVERY DAY 02/15/2014 No Stop Date Active folic acid 1 mg tablet RxNorm: 112847 Tablet(s) PO TAKE ONE TABLET BY MOUTH EVERY DAY 02/15/2014 01/16/2015 Inactive folic acid 1 mg tablet RxNorm: 273753 1 Tablet(s) PO daily TAKE ONE TABLET BY MOUTH EVERY DAY 02/15/2014 02/14/2014 Inactive Flonase 50 mcg/actuation nasal spray,suspension RxNorm: 320949 1 [place] NASAL BID 01/12/2014 08/09/2014 Inactive topiramate 100 mg tablet RxNorm: 157072 1.5 Tablet(s) PO BID 08/09/2014 Inactive amoxicillin 500 mg capsule RxNorm: 741198 1 Capsule(s) PO TID 12/24/2013 12/30/2013 Inactive amoxicillin 500 mg capsule RxNorm: 606887 1 Capsule(s) PO TID 12/24/2013 12/23/2013 Inactive Pristiq 50 mg tablet,extended release RxNorm: 510189 1 Tablet(s) PO BID 12/01/2013 02/23/2015 Inactive Vitamin B-12 1,000 mcg/mL injection solution RxNorm: 578471 1 Milliliter(s) Inj QW 11/10/2013 11/09/2013 Inactive Vitamin B-12 1,000 mcg/mL injection solution RxNorm: 157767 1 Milliliter(s) Inj QW 11/10/2013 12/02/2014 Inactive Myrbetriq 25 mg tablet,extended release RxNorm: 1592424 1 Tablet(s) PO daily 10/20/2013 08/16/2014 Inactive fluconazole 150 mg tablet RxNorm: 520336 1 Tablet(s) PO daily 09/15/2013 09/19/2013 Inactive amoxicillin 875 mg-potassium clavulanate 125 mg tablet RxNorm: 732680 1 Tablet(s) PO BID 09/15/2013 09/24/2013 Inactive Pristiq 50 mg tablet,extended release RxNorm: 118271 1 Tablet(s) PO BID 07/30/2013 11/30/2013 Inactive Topamax 25 mg tablet RxNorm: 423047 4 Tablet(s) PO BID 201201/11/2014 Inactive vitamin B12 200mcg [place], Suspension RxNorm: 1 [place] PO daily 07/27/2013 12/25/2015 Inactive Flonase 50 mcg/actuation nasal spray,suspension RxNorm: 918541 2 [place] NASAL daily 06/09/2013 07/08/2013 Inactive Carafate 1 gram tablet RxNorm: 346259 1 Tablet(s) PO ac and hs 05/07/2013 05/06/2013 Inactive Carafate 1 gram tablet RxNorm: 245768 1 Tablet(s) PO ac and hs 05/07/2013 05/31/2014 Inactive potassium chloride 10 % Oral Liquid RxNorm: 536710 1 Tablespoon(s) PO daily 03/23/2013 04/08/2014 Inactive folic acid 1 mg tablet RxNorm: 234656 Tablet(s) PO TAKE ONE TABLET BY MOUTH EVERY DAY 01/29/2013 02/14/2014 Inactive naproxen sodium 550 mg tablet RxNorm: 470499 1 Tablet(s) PO BID 01/21/2013 10/26/2014 Inactive hydrocodone 5 mg-acetaminophen 500 mg tablet RxNorm: 673932 1 Tablet(s) PO Q8 PRN 12/25/2012 02/19/2017 Inactive folic acid 1 mg tablet RxNorm: 987763 1 Tablet(s) PO daily 01/28/2013 Inactive cyanocobalamin (vitamin B-12) 1,000 mcg/mL Injection RxNorm: 153277 1 Milliliter(s ) Inj 2 x month inject 1 mL every other week intramuscularly 11/03/2012 11/02/2012 Inactive please provide 25 gauge syringes as well. cyanocobalamin (vitamin B-12) 1,000 mcg/mL Injection RxNorm: 959697 Milliliter(s) Inj 11/03/2012 11/03/2012 Inactive cyanocobalamin (vitamin B-12) 1,000 mcg/mL Injection RxNorm: 518476 1 Milliliter(s ) Inj 2 x month inject 1 mL every other week intramuscularly 11/03/2012 12/25/2015 Inactive please provide 25 gauge syringes as well. cyanocobalamin (vitamin B-12) 1,000 mcg/mL Injection RxNorm: 494374 1 Milliliter(s ) Inj 10/20/2012 10/20/2012 Inactive Vitamin B-12 1,000 mcg/mL Injection RxNorm: 346605 1 Milliliter(s) Inj 09/11/2012 09/11/2012 Inactive Zithromax Z-Juanpablo 250 mg tablet RxNorm: 471841 Tablet(s) PO UD 12/24/2012 Inactive please give z junapablo hydrochlorothiazide 25 mg tablet RxNorm: 103802 1/2 Tablet(s) PO daily 08/11/2012 No Stop Date Active Vitamin B-12 1,000 mcg/mL Injection RxNorm: 547995 Milliliter(s) Inj 08/11/2012 08/11/2012 Inactive Vitamin D2 50,000 unit capsule RxNorm: 575670 Capsule(s) PO one weekly for 8 weeks then resume her daily dosing 07/21/2012 07/20/2012 Inactive Vitamin B-12 1,000 mcg/mL Injection RxNorm: 307677 Milliliter(s) Inj 07/21/2012 07/21/2012 Inactive Vitamin D2 50,000 unit capsule RxNorm: 811479 Capsule(s) PO one weekly for 8 weeks then resume her daily dosing 07/21/2012 09/18/2012 Inactive Diflucan 150 mg tablet RxNorm: 742196 1 Tablet(s) PO daily 09/201107/12/2012 Inactive HyoMax-SR 0.375 mg tablet,extended release RxNorm: 9355432 Tablet(s) PO PRN No Start Date Active Maxalt-QUALITY LAB TECHNICIAN 10 mg disintegrating tablet RxNorm: 270596 Tablet(s) PO PRN No Start Date Active Vitamin D3 2,000 unit tablet RxNorm: 598449 1 Tablet(s) PO daily No Start Date Active potassium chloride 20 mEq/15 mL oral liquid RxNorm: 303625 2 Tablespoon(s) PO daily No Start Date Active Zetia 10 mg tablet RxNorm: 544742 1 Tablet(s) PO QPM No Start Date Active metoprolol tartrate 50 mg tablet RxNorm: 990392 1 Tablet(s) PO BID No Start Date Active biotin 2,500 mcg tablet RxNorm: 868845 1 Tablet(s) PO daily No Start Date Active Zyrtec 10 mg tablet RxNorm: 6637622 1 Tablet(s) PO PRN No Start Date Active Praluent Pen 75 mg/mL subcutaneous pen injector RxNorm: 2516843 1 Milliliter(s) SQ Q 2 weeks No Start Date Active Fioricet oral RxNorm: 365993 oral No Start Date Active Cholestyramine Susp Light 4 gram Packet RxNorm: 498559 packet PO PRN No Start Date 08/29/2014 Inactive Pristiq 50 mg tablet,extended release RxNorm: 921933 1 Tablet(s) PO daily No Start Date 07/29/2013 Inactive Topamax 25 mg tablet RxNorm: 930951 3 Tablet(s) PO BID No Start Date 07/29/2013 Inactive pantoprazole 40 mg tablet,delayed release RxNorm: 317789 1 Tablet(s) PO daily No Start Date 07/07/2018 Inactive Tricor 145 mg tablet RxNorm: 972625 1 Tablet(s) PO daily No Start Date 12/24/2012 Inactive Zithromax Z-Juanpablo 250 mg tablet RxNorm: 958915 Tablet(s) PO UD No Start Date 08/11/2012 Inactive Fish Oil 1,000 mg capsule RxNorm: 1 Capsule(s) PO BID No Start Date 07/07/2018 Inactive Vitamin D3 2,000 unit capsule RxNorm: 641013 1 Capsule(s) PO daily No Start Date 12/25/2015 Inactive Vagifem 10 mcg vaginal tablet RxNorm: 618014 1-2 Tablet(s) VAG weekly No Start Date 06/10/2016 Inactive Gelnique 10 % (100 mg/gram) transdermal gel packet RxNorm: 055567 3% gel 3 pumps TD daily No Start Date 08/09/2014 Inactive Vitamin D3 5,000 unit tablet RxNorm: 933484 1 Tablet(s) PO daily No Start Date 06/10/2016 Inactive hydrochlorothiazide 25 mg tablet RxNorm: 448554 1 Tablet(s) PO daily No Start Date 08/10/2012 Inactive Flexeril 10 mg tablet RxNorm: 334128 Tablet(s) PO No Start Date 06/10/2016 Inactive 1 q am1/2 with dinner1 hs Valium 5 mg tablet RxNorm: 222496 1 Tablet(s) PO PRN No Start Date 06/26/2017 Inactive amlodipine 5 mg tablet RxNorm: 342381 1 Tablet(s) PO daily No Start Date 03/15/2014 Inactive Phenergan VC-Codeine 6.25 mg-5 mg-10 mg/5 mL syrup RxNorm: 929459 5 Milliliter(s) PO Q6 as needed cough No Start Date 2015 Inactive Zithromax Z-Juanpablo 250 mg tablet RxNorm: 380263 Tablet(s) PO UD No Start Date 07/30/2013 Inactive naproxen 500 mg tablet RxNorm: 124235 Tablet(s) PO BID PRN No Start Date 01/20/2013 Inactive Lovaza 1 gram capsule RxNorm: 529204 2 Capsule(s) PO BID No Start Date 03/04/2018 Inactive hydrocodone 5 mg-acetaminophen 500 mg tablet RxNorm: 796819 1 Tablet(s) PO Q8 PRN No Start Date 12/24/2012 Inactive biotin 1000 mg RxNorm : 2 PO No Start Date 06/11/2016 Inactive aspirin 81 mg tablet,delayed release RxNorm: 814980 1 Tablet(s) PO daily No Start Date 07/07/2018 Inactive Lomotil 2.5 mg-0.025 mg tablet RxNorm: 3393240 Tablet(s) PO PRN No Start Date 04/23/2016 Inactive Ditropan XL 5 mg tablet,extended release RxNorm: 687508 1 Tablet(s) PO daily No Start Date 06/09/2018 Inactive Antara 130 mg capsule RxNorm: 042931 1 Capsule(s) PO daily No Start Date 07/07/2018 Inactive folic acid 1 mg tablet RxNorm: 724454 1 Tablet(s) PO daily No Start Date 11/02/2012 Inactive amlodipine 10 mg tablet RxNorm: 576126 1 Tablet(s) PO daily No Start Date 08/05/2018 Inactive amitriptyline 25 mg tablet RxNorm: 864869 1 Tablet(s) PO QHS dr fonseca No Start Date 03/29/2016 Inactive Gelnique transdermal RxNorm: 181429 transdermal No Start Date 03/25/2016 Inactive Toprol XL 50 mg tablet,extended release RxNorm: 718990 1 Tablet(s) PO daily No Start Date 04/08/2017 Inactive potassium chloride 10 % Oral Liquid RxNorm: 405022 1 Tablespoon(s) PO daily No Start Date 03/22/2013 Inactive Lipitor 10 mg tablet RxNorm: 685918 1 Tablet(s) PO QHS No Start Date 12/24/2012 Inactive diltiazem 120 mg tablet RxNorm: 364676 1 Tablet(s) PO daily No Start Date 08/10/2012 Inactive Combivent Respimat 20 mcg-100 mcg/actuation solution for inhalation RxNorm: 2452840 1-2 Puff(s) INH Q4 PRN No Start Date 07/25/2017 Inactive Medication Administered Medication Codes Instructions Start Date Status ceftriaxone 1 gram solution for injection RxNorm: 6119752 11/11/2014 No longer Active cyanocobalamin (vitamin B-12) 1,000 mcg/mL Injection RxNorm : 148066 Milliliter 11/03/2012 No longer Active cyanocobalamin (vitamin B-12) 1,000 mcg/mL Injection RxNorm : 742111 1Milliliter 10/20/2012 No longer Active Vitamin B-12 1,000 mcg/mL Injection RxNorm: 480235 1Milliliter 09/11/2012 No longer Active Vitamin B-12 1,000 mcg/mL Injection RxNorm: 318865 Milliliter 08/11/2012 No longer Active Vitamin B-12 1,000 mcg/mL Injection RxNorm: 810850 Milliliter 07/21/2012 No longer Active Immunizations Vaccine Codes Date Status Influenza CVX: 141 06/05/2018 completed Influenza CVX: 141 06/19/2017 completed Tetanus, Diptheria, Pertussis CVX: 113 completed Tetanus/Diptheria CVX: 113 03/30/2015 completed Influenza CVX: 141 05/12/2012 completed Pneumococcal CVX: 33 06/11/2011 completed Assessments Condition Codes Effective Dates Major depressive disorder, recurrent, moderate ICD-10: F33.1 [...] pain syndrome ICD-10: G89.4 ICD-9: 338.4 11/21/2016 Generalized abdominal pain ICD-10: R10.84 ICD-9: 789.07 08/29/2016 Epigastric pain ICD-10: R10.13 ICD-9: 789.06 07/05/2016 [...] Visit Reason For Visit Effective Dates Notes depression 10/02/2018 constipation 08/06/2018 depression 07/08/2018 hypertension [...] Observation Code Item Item Code Result Date Hepatic Ynh349 ALBUMIN 4.5 g/dL 08/11/2018 Hepatic Glt514 TPRO 7.3 g/dL 08/11/2018 Hepatic Ynd110 GLOB 2.8 g/dL 08/11/2018 Hepatic Yie893 A/G Ratio 1.6 Ratio 08/11/2018 Hepatic Rfv410 ALK PHOS 89 U/L 08/11/2018 Hepatic Slt531 ALT(SGPT) 31 U/L 08/11/2018 Hepatic Dbs156 AST(SGOT) 20 U/L 08/11/2018 Hepatic Fkf462 BILI T 0.4 mg/dL 08/11/2018 Hepatic Sgw150 BILI D 0.1 mg/dL 08/11/2018 Hepatic Tcu640 BILI I 0.3 mg/dL 08/11/2018 Lipid Ord30 [...] Ord30 C/HDL 3.7 Ratio 05/01/2018 Comp Metabolic Jmv790 NA 140 mEq/L 05/01/2018 Comp Metabolic Vpc853 K 4.1 mEq/L 05/01/2018 Comp Metabolic Kxl366 CL 107 mEq/L 05/01/2018 Comp Metabolic Qoc654 CO2 25.0 mEq/L 05/01/2018 Comp Metabolic Eci265 ANION GAP 12 05/01/2018 Comp Metabolic Yhy213 GLUCOSE 98 mg/dL 05/01/2018 Comp Metabolic Exi738 Creat 0.7 mg/dL 05/01/2018 Comp Metabolic Nym639 eGFR 96 ml/min/1.73m2 05/01/2018 Comp Metabolic Npg492 BUN 14 mg/dL 05/01/2018 Comp Metabolic Wxc055 B/C Ratio 20.9 Ratio 05/01/2018 Comp Metabolic Bav116 CALCIUM 9.5 mg/dL 05/01/2018 Comp Metabolic Wls388 ALK PHOS 74 U/L 05/01/2018 Comp Metabolic Tkb185 AST(SGOT) 19 U/L 05/01/2018 Comp Metabolic Why432 ALT(SGPT) 29 U/L 05/01/2018 Comp Metabolic Wfy937 BILI T 0.3 mg/dL 05/01/2018 Comp Metabolic Ynu500 ALBUMIN 4.3 g/dL 05/01/2018 Comp Metabolic Ztj904 TPRO 6.7 g/dL 05/01/2018 Comp Metabolic Xeh639 GLOB 2.4 g/dL 05/01/2018 Comp Metabolic Yqb947 A/G Ratio 1.8 Ratio 05/01/2018 Comp Metabolic Tkl686 Osmo 280 mOsmo 05/01/2018 Free T4 Qco605 FREE T4 0.95 ng/dL 02/11/2018 Tsh Ord6 TSH (3rd IS) 2.16 uIU/mL 02/11/2018 Free T4 Mtg782 FREE T4 0.81 ng/dL 11/12/2017 Tsh Ord6 TSH (3rd IS) 1.66 uIU/mL 11/12/2017 Tsh Ord6 hTSH II 1.45 uIU/mL 08/20/2017 Free T4 Tet533 FREE T4 0.80 ng/dL 08/20/2017 Hepatic Ykm988 ALBUMIN 4.4 g/dL 08/20/2017 Hepatic Biv623 TPRO 6.6 g/dL 08/20/2017 Hepatic Yje309 GLOB 2.2 g/dL 08/20/2017 Hepatic Yiv394 A/G Ratio 2.0 Ratio 08/20/2017 Hepatic Oxw935 ALK PHOS 50 U/L 08/20/2017 Hepatic Psz451 ALT(SGPT) 20 U/L 08/20/2017 Hepatic Zac784 AST(SGOT) 20 U/L 08/20/2017 Hepatic Yfb627 BILI T 0.3 mg/dL 08/20/2017 Hepatic Mew762 BILI D 0.1 mg/dL 08/20/2017 Hepatic Sru126 BILI I 0.2 mg/dL 08/20/2017 Lipid Ord30 CHOL 173 mg/dL 08/20/2017 Lipid Ord30 HDL 64.0 mg/dl 08/20/2017 Lipid Ord30 TRIG 205 mg/dL 08/20/2017 Lipid Ord30 LDL 68 mg/dL 08/20/2017 Lipid Ord30 C/HDL 2.7 Ratio 08/20/2017 Cbc With Differential Ord2 WBC 7.27 K/ul 02/21/2017 Cbc With Differential Ord2 RBC 4.66 M/ul 02/21/2017 Cbc With Differential Ord2 HGB 14.1 g/dl 02/21/2017 Cbc With Differential Ord2 Neut% 65.2 % 02/21/2017 Cbc With Differential Ord2 HCT 42.7 % 02/21/2017 Cbc With Differential Ord2 Lymph% 25.0 % 02/21/2017 Cbc With Differential Ord2 MCV 91.6 fl 02/21/2017 Cbc With Differential Ord2 MCH 30.3 pg 02/21/2017 Cbc With Differential Ord2 [place]% 6.9 % 02/21/2017 Cbc With Differential Ord2 MCHC 33.0 pg 02/21/2017 Cbc With Differential Ord2 Eos% 2.6 % 02/21/2017 Cbc With Differential Ord2 Baso% 0.3 % 02/21/2017 Cbc With Differential Ord2 PLT 296 K/ul 02/21/2017 Cbc With Differential Ord2 RDW 13.9 % 02/21/2017 Cbc With Differential Ord2 Neut ABS# 4.74 K/ul 02/21/2017 Cbc With Differential Ord2 Lymph ABS# 1.82 K/ul 02/21/2017 Cbc With Differential Ord2 [place] ABS# 0.5 K/ul 02/21/2017 Cbc With Differential Ord2 Eos ABS# 0.2 K/ul 02/21/2017 Cbc With Differential Ord2 Baso ABS# 0.0 K/ul 02/21/2017 %Hba1C Kxb477 % HbA1c 84301-2 5.8 % 02/21/2017 %Hba1C Nta558 Gluc Ave 120 mg/dL 02/21/2017 Tsh Ord6 hTSH II 1.90 uIU/mL 02/21/2017 Vitamin D 25 Oh Rgd8202 VITAMIN D, 25 HYDROXY 42.82 ng/mL Comp Metabolic Pka410 NA 141 mEq/L 02/21/2017 Comp Metabolic Hqm981 K 4.1 mEq/L 02/21/2017 Comp Metabolic Dog355 CL 107 mEq/L 02/21/2017 Comp Metabolic Kek773 CO2 25.0 mEq/L 02/21/2017 Comp Metabolic Ezn867 ANION GAP 13 02/21/2017 Comp Metabolic Ljj493 GLUCOSE 87 mg/dL 02/21/2017 Comp Metabolic Vhm630 Creat 0.8 mg/dL 02/21/2017 Comp Metabolic Cxt062 eGFR 80 ml/min/1.73m2 02/21/2017 Comp Metabolic Qbo113 BUN 20 mg/dL 02/21/2017 Comp Metabolic Vwy687 B/C Ratio 25.3 Ratio 02/21/2017 Comp Metabolic Kzl751 CALCIUM 9.5 mg/dL 02/21/2017 Comp Metabolic Wys511 ALK PHOS 61 U/L 02/21/2017 Comp Metabolic Qvk750 AST(SGOT) 16 U/L 02/21/2017 Comp Metabolic Rdq277 ALT(SGPT) 19 U/L 02/21/2017 Comp Metabolic Lss975 BILI T 0.3 mg/dL 02/21/2017 Comp Metabolic Nyd584 ALBUMIN 4.4 g/dL 02/21/2017 Comp Metabolic Api328 TPRO 7.0 g/dL 02/21/2017 Comp Metabolic Jkw999 GLOB 2.6 g/dL 02/21/2017 Comp Metabolic Mnf443 A/G Ratio 1.7 Ratio 02/21/2017 Comp Metabolic Eyd159 Osmo 283 mOsmo 02/21/2017 Lipid Ord30 CHOL 185 mg/dL 02/21/2017 Lipid Ord30 HDL 74.0 mg/dl 02/21/2017 Lipid Ord30 TRIG 148 mg/dL 02/21/2017 Lipid Ord30 LDL 81 mg/dL 02/21/2017 Lipid Ord30 C/HDL 2.5 Ratio 02/21/2017 Hepatic Uky766 ALBUMIN 4.9 g/dL 08/21/2016 Hepatic Ddg220 TPRO 7.3 g/dL 08/21/2016 Hepatic Xqr221 GLOB 2.5 g/dL 08/21/2016 Hepatic Mtu010 A/G Ratio 2.0 Ratio 08/21/2016 Hepatic Ptg453 ALK PHOS 76 U/L 08/21/2016 Hepatic Nip052 ALT(SGPT) 29 U/L 08/21/2016 Hepatic Kfj878 AST(SGOT) 22 U/L 08/21/2016 Hepatic Znm633 BILI T 0.4 mg/dL 08/21/2016 Hepatic Vde778 BILI D 0.1 mg/dL 08/21/2016 Hepatic Ktn694 BILI I 0.3 mg/dL 08/21/2016 Lipid Ord30 CHOL 302 mg/dL 08/21/2016 Lipid Ord30 HDL 69.0 mg/dl 08/21/2016 Lipid Ord30 TRIG 223 mg/dL 08/21/2016 Lipid Ord30 LDL 188 mg/dL 08/21/2016 Lipid Ord30 C/HDL 4.4 Ratio 08/21/2016 Lipase Rlz740 LIPASE 14 U/L 06/04/2016 Cbc With Differential Ord2 WBC 6.11 K/ul 06/04/2016 Cbc With Differential Ord2 RBC 4.44 M/ul 06/04/2016 Cbc With Differential Ord2 HGB 13.3 g/dl 06/04/2016 Cbc With Differential Ord2 Neut% 67.0 % 06/04/2016 Cbc With Differential Ord2 HCT 40.7 % 06/04/2016 Cbc With Differential Ord2 Lymph% 24.5 % 06/04/2016 Cbc With Differential Ord2 MCV 91.7 fl 06/04/2016 Cbc With Differential Ord2 MCH 30.0 pg 06/04/2016 Cbc With Differential Ord2 [place]% 6.5 % 06/04/2016 Cbc With Differential Ord2 Eos% 1.8 % 06/04/2016 Cbc With Differential Ord2 MCHC 32.7 pg 06/04/2016 Cbc With Differential Ord2 PLT 315 K/ul 06/04/2016 Cbc With Differential Ord2 Baso% 0.2 % 06/04/2016 Cbc With Differential Ord2 Neut ABS# 4.09 K/ul 06/04/2016 Cbc With Differential Ord2 RDW 13.9 % 06/04/2016 Cbc With Differential Ord2 Lymph ABS# 1.50 K/ul 06/04/2016 Cbc With Differential Ord2 [place] ABS# 0.4 K/ul 06/04/2016 Cbc With Differential Ord2 Eos ABS# 0.1 K/ul 06/04/2016 Cbc With Differential Ord2 Baso ABS# 0.0 K/ul 06/04/2016 Comp Metabolic Yka653 NA 135 mEq/L 06/04/2016 Comp Metabolic Xlu031 K 3.8 mEq/L 06/04/2016 Comp Metabolic Yla899 CL 101 mEq/L 06/04/2016 Comp Metabolic Gdd579 CO2 26.0 mEq/L 06/04/2016 Comp Metabolic Qwa500 ANION GAP 12 06/04/2016 Comp Metabolic Hss973 GLUCOSE 91 mg/dL 06/04/2016 Comp Metabolic Agy164 Creat 0.8 mg/dL 06/04/2016 Comp Metabolic Maa140 eGFR 74 ml/min/1.73m2 06/04/2016 Comp Metabolic Oqr567 BUN 16 mg/dL 06/04/2016 Comp Metabolic Quy889 B/C Ratio 19.0 Ratio 06/04/2016 Comp Metabolic Rsj125 CALCIUM 10.0 mg/dL 06/04/2016 Comp Metabolic Pzk111 ALK PHOS 76 U/L 06/04/2016 Comp Metabolic Riq092 AST(SGOT) 20 U/L 06/04/2016 Comp Metabolic Fwn190 ALT(SGPT) 24 U/L 06/04/2016 Comp Metabolic Dsp854 BILI T 0.3 mg/dL 06/04/2016 Comp Metabolic Aau598 ALBUMIN 4.6 g/dL 06/04/2016 Comp Metabolic Yqw571 TPRO 6.9 g/dL 06/04/2016 Comp Metabolic Ndl185 GLOB 2.3 g/dL 06/04/2016 Comp Metabolic Tkg863 A/G Ratio 2.0 Ratio 06/04/2016 Comp Metabolic Kon219 Osmo 271 mOsmo 06/04/2016 Amylase Ord34 AMYLASE 31 U/L 06/04/2016 Hepatic Nlq896 ALBUMIN 4.3 g/dL 2016 Hepatic Zgi767 TPRO 6.7 g/dL 2016 Hepatic Hys216 GLOB 2.4 g/dL 2016 Hepatic Sle639 A/G Ratio 1.8 Ratio 2016 Hepatic Qby087 ALK PHOS 50 U/L 2016 Hepatic Sxz709 ALT(SGPT) 20 U/L 2016 Hepatic Gxv403 AST(SGOT) 18 U/L 2016 Hepatic Ugi100 BILI T 0.4 mg/dL 2016 Hepatic Pyy595 BILI D 0.1 mg/dL 2016 Hepatic Lqw826 BILI I 0.3 mg/dL 2016 Lipid Ord30 CHOL 245 mg/dL 2016 Lipid Ord30 HDL 62.0 mg/dl 2016 Lipid Ord30 TRIG 140 mg/dL 2016 Lipid Ord30 LDL 155 mg/dL 2016 Lipid Ord30 C/HDL 4.0 Ratio 2016 Urine Culture Ucult Preliminary No Growth Day 1 09/15/2015 Urine Culture Ucult Complete No Growth Day 2 09/15/2015 Magnesium Ord90 Mag 1.9 mg/dL 09/07/2015 Comp Metabolic Zgq723 NA 139 mEq/L 09/07/2015 Comp Metabolic Vme999 K 4.4 mEq/L 09/07/2015 Comp Metabolic Fyg952 CL 107 mEq/L 09/07/2015 Comp Metabolic Kfk001 CO2 24.0 mEq/L 09/07/2015 Comp Metabolic Xwz206 ANION GAP 12 09/07/2015 Comp Metabolic Jfa801 GLUCOSE 91 mg/dL 09/07/2015 Comp Metabolic Wkp572 Creat 1.0 mg/dL 09/07/2015 Comp Metabolic Xvr447 eGFR 64 ml/min/1.73m2 09/07/2015 Comp Metabolic Pob769 BUN 31 mg/dL 09/07/2015 Comp Metabolic Qio272 B/C Ratio 32.3 Ratio 09/07/2015 Comp Metabolic Svk672 CALCIUM 9.7 mg/dL 09/07/2015 Comp Metabolic Oxi340 ALK PHOS 56 U/L 09/07/2015 Comp Metabolic Wlk257 AST(SGOT) 29 U/L 09/07/2015 Comp Metabolic Lnu680 ALT(SGPT) 34 U/L 09/07/2015 Comp Metabolic Rlw782 BILI T 0.3 mg/dL 09/07/2015 Comp Metabolic Pas928 ALBUMIN 4.6 g/dL 09/07/2015 Comp Metabolic Hfr549 TPRO 7.0 g/dL 09/07/2015 Comp Metabolic Hxs624 GLOB 2.4 g/dL 09/07/2015 Comp Metabolic Xcg893 A/G Ratio 1.9 Ratio 09/07/2015 Comp Metabolic Kqe551 Osmo 284 mOsmo 09/07/2015 Bili D Ord93 BILI D 0.1 mg/dL 09/07/2015 Bili D Ord93 BILI I 0.2 mg/dL 09/07/2015 Lipid Ord30 CHOL 243 mg/dL 09/07/2015 Lipid Ord30 HDL 75.0 mg/dl 09/07/2015 Lipid Ord30 TRIG 161 mg/dL 09/07/2015 Lipid Ord30 LDL 136 mg/dL 09/07/2015 Lipid Ord30 C/HDL 3.2 Ratio 09/07/2015 Tsh Ord6 hTSH II 2.53 uIU/mL 06/13/2015 Comp Metabolic Zgm098 NA 138 mEq/L 06/13/2015 Comp Metabolic Ulm567 K 4.0 mEq/L 06/13/2015 Comp Metabolic Nug637 CL 104 mEq/L 06/13/2015 Comp Metabolic Gke234 CO2 26.0 mEq/L 06/13/2015 Comp Metabolic Tyj836 ANION GAP 12 06/13/2015 Comp Metabolic Ees176 GLUCOSE 86 mg/dL 06/13/2015 Comp Metabolic Hym647 Creat 0.9 mg/dL 06/13/2015 Comp Metabolic Aeu983 eGFR 71 ml/min/1.73m2 06/13/2015 Comp Metabolic Pht845 BUN 18 mg/dL 06/13/2015 Comp Metabolic Nhm972 B/C Ratio 20.5 Ratio 06/13/2015 Comp Metabolic Qeu295 CALCIUM 10.1 mg/dL 06/13/2015 Comp Metabolic Zes536 ALK PHOS 52 U/L 06/13/2015 Comp Metabolic Yvy787 AST(SGOT) 18 U/L 06/13/2015 Comp Metabolic Ldm914 ALT(SGPT) 21 U/L 06/13/2015 Comp Metabolic Dzh537 BILI T 0.3 mg/dL 06/13/2015 Comp Metabolic Xqf649 ALBUMIN 4.7 g/dL 06/13/2015 Comp Metabolic Ctu964 TPRO 6.9 g/dL 06/13/2015 Comp Metabolic Hfa531 GLOB 2.2 g/dL 06/13/2015 Comp Metabolic Pzb499 A/G Ratio 2.1 Ratio 06/13/2015 Comp Metabolic Cah922 Osmo 277 mOsmo 06/13/2015 %Hba1C Gpk501 % HbA1c 15827-6 5.7 % 06/13/2015 %Hba1C Szk975 Gluc Ave 117 mg/dL 06/13/2015 Cbc With [...] 14.7 % 06/13/2015 Vitamin D 25 Oh Fgp2280 VITAMIN D, 25 HYDROXY 41.85 ng/mL Cbc [...] Ord2 RDW 14.5 % 04/18/2015 Comp Metabolic Xsz706 NA 137 mEq/L 04/18/2015 Comp Metabolic Jrb022 K 4.0 mEq/L 04/18/2015 Comp Metabolic Vyg113 CL 105 mEq/L 04/18/2015 Comp Metabolic Ctv073 CO2 23.0 mEq/L 04/18/2015 Comp Metabolic Dym059 ANION GAP 13 04/18/2015 Comp Metabolic Fru021 GLUCOSE 73 mg/dL 04/18/2015 Comp Metabolic Oyk395 Creat 0.9 mg/dL 04/18/2015 Comp Metabolic Mtk966 eGFR 72 ml/min/1.73m2 04/18/2015 Comp Metabolic Vma605 BUN 17 mg/dL 04/18/2015 Comp Metabolic Inn532 B/C Ratio 19.5 Ratio 04/18/2015 Comp Metabolic Rgy799 CALCIUM 9.7 mg/dL 04/18/2015 Comp Metabolic Aro417 ALK PHOS 55 U/L 04/18/2015 Comp Metabolic Mfv391 AST(SGOT) 28 U/L 04/18/2015 Comp Metabolic Kit810 ALT(SGPT) 27 U/L 04/18/2015 Comp Metabolic Eri043 BILI T 0.3 mg/dL 04/18/2015 Comp Metabolic Tol884 ALBUMIN 4.5 g/dL 04/18/2015 Comp Metabolic Uin366 TPRO 7.0 g/dL 04/18/2015 Comp Metabolic Juu870 GLOB 2.5 g/dL 04/18/2015 Comp Metabolic Aen163 A/G Ratio 1.8 Ratio 04/18/2015 Comp Metabolic Ysu910 Osmo 274 mOsmo 04/18/2015 Cbc With Differential [...] Ord2 RDW 15.0 % 03/22/2015 Comp Metabolic Htc723 NA 136 mEq/L 03/22/2015 Comp Metabolic Uxy861 K 4.1 mEq/L 03/22/2015 Comp Metabolic Ynm972 CL 102 mEq/L 03/22/2015 Comp Metabolic Hjy423 CO2 26.0 mEq/L 03/22/2015 Comp Metabolic Emk207 ANION GAP 12 03/22/2015 Comp Metabolic Plj204 GLUCOSE 82 mg/dL 03/22/2015 Comp Metabolic Pym756 Creat 0.9 mg/dL 03/22/2015 Comp Metabolic Kba782 eGFR 69 ml/min/1.73m2 03/22/2015 Comp Metabolic Qsb260 BUN 30 mg/dL 03/22/2015 Comp Metabolic Yfz566 B/C Ratio 33.3 Ratio 03/22/2015 Comp Metabolic Xuu260 CALCIUM 10.3 mg/dL 03/22/2015 Comp Metabolic Kki102 ALK PHOS 56 U/L 03/22/2015 Comp Metabolic Urp570 AST(SGOT) 17 U/L 03/22/2015 Comp Metabolic Pne951 ALT(SGPT) 17 U/L 03/22/2015 Comp Metabolic Cmn863 BILI T 0.3 mg/dL 03/22/2015 Comp Metabolic Eql926 ALBUMIN 4.7 g/dL 03/22/2015 Comp Metabolic Knv610 TPRO 7.2 g/dL 03/22/2015 Comp Metabolic Pww105 GLOB 2.5 g/dL 03/22/2015 Comp Metabolic Nmo280 A/G Ratio 1.9 Ratio 03/22/2015 Comp Metabolic Tfd856 Osmo 277 mOsmo 03/22/2015 FREE T4 2776894 FREE T4 1.24 NG/DL 10/18/2014 CHEM 14 7072588 AST 14 U/L 10/15/2014 CHEM 14 20280313 ALT 15 IU/L 10/15/2014 CHEM 14 20280313 BUN 23 MG/DL 10/15/2014 CHEM 14 9908369 ALBUMIN 4.8 GM/DL 10/15/2014 CHEM 14 3839442 CHLORIDE 105 MMOL/L 10/15/2014 CHEM 14 4278812 BILI TOT 0.3 MG/DL 10/15/2014 CHEM 14 3258089 ALK PHOS 60 U/L 10/15/2014 CHEM 14 9575799 SODIUM 140 MMOL/L 10/15/2014 CHEM 14 1397729 CREATININE 0.89 MG/DL 10/15/2014 CHEM 14 8243179 CALCIUM 10.0 MG/DL 10/15/2014 CHEM 14 3265364 POTASSIUM 3.7 MMOL/L 10/15/2014 CHEM 14 0197936 PROT TOT 7.2 GM/DL 10/15/2014 CHEM 14 5399722 GLUCOSE 97 MG/DL 10/15/2014 CHEM 14 1972940 BICARB 25 MMOL/L 10/15/2014 CHEM 14 6831590 ANION GAP 10 MEQ/L 10/15/2014 CBC 2365438 WBC 6.7 10e9/L 10/15/2014 CBC 7582998 RBC 4.49 10e12/L 10/15/2014 CBC 6993372 HGB 13.4 g/dL 10/15/2014 CBC 4955526 HCT DET 40.2 % 10/15/2014 CBC 5413234 MCV 89.5 fL 10/15/2014 CBC 1408557 MCH 29.8 pg 10/15/2014 CBC 9320529 MCHC 33.3 g/dL 10/15/2014 CBC 3029367 PLT 311 10e9/L 10/15/2014 CBC 8057915 MPV 10.7 fL 10/15/2014 CBC 1643839 BESSY % 63.6 % 10/15/2014 CBC 7789633 LY % 26.7 % 10/15/2014 CBC 1785026 MON % 6.6 % 10/15/2014 CBC 5203454 EOS % 2.8 % 10/15/2014 CBC 4790955 BASO % 0.3 % 10/15/2014 CBC 7583211 RDW 13.4 % 10/15/2014 CBC 2734612 ABS BESSY 4.26 10e9/L 10/15/2014 CBC 3417721 ABS LYMPH 1.79 10e9/L 10/15/2014 CBC 7719011 ABS MONO 0.44 10e9/L 10/15/2014 CBC 9754508 ABS EOS 0.19 10e9/L 10/15/2014 CBC 7755533 ABS BASO 0.02 10e9/L 10/15/2014 CBC 7724744 RDW-SD 43.2 fL 10/15/2014 A1C HPLC 4748701 A1C HPLC 91925-8 5.7 % 10/15/2014 TSH 3277024 TSH 4.083 uIU/ML 10/15/2014 GFR CALC 1665662 GFR AA >60 ML/MIN 10/15/2014 GFR CALC 3865803 GFR NON-AA >60 ML/MIN 10/15/2014 VIT D TOTL 8917173 VIT D TOTL 36 NG/ML 10/15/2014 GFR CALC 4638923 GFR AA >60 ML/MIN 06/23/2014 GFR CALC 6867985 GFR NON-AA >60 ML/MIN 06/23/2014 CHEM 14 0132150 AST 21 U/L 06/23/2014 CHEM 14 3179163 ALT 24 IU/L 06/23/2014 CHEM 14 4869786 BUN 18 MG/DL 06/23/2014 CHEM 14 7396471 ALBUMIN 4.7 GM/DL 06/23/2014 CHEM 14 7215212 CHLORIDE 109 MMOL/L 06/23/2014 CHEM 14 3301519 BILI TOT 0.3 MG/DL 06/23/2014 CHEM 14 4415715 ALK PHOS 53 U/L 06/23/2014 CHEM 14 2710048 SODIUM 140 MMOL/L 06/23/2014 CHEM 14 7006572 CREATININE 0.86 MG/DL 06/23/2014 CHEM 14 1127378 CALCIUM 10.2 MG/DL 06/23/2014 CHEM 14 6890027 POTASSIUM 3.9 MMOL/L 06/23/2014 CHEM 14 7210564 PROT TOT 6.9 GM/DL 06/23/2014 CHEM 14 1123020 GLUCOSE 87 MG/DL 06/23/2014 CHEM 14 8275021 BICARB 24 MMOL/L 06/23/2014 CHEM 14 8239629 ANION GAP 7 MEQ/L 06/23/2014 TSH 6894290 TSH 1.417 uIU/ML 06/23/2014 FREE T4 2540427 FREE T4 1.21 NG/DL 06/23/2014 TSH 2242808 TSH 3.399 uIU/ML 12/16/2013 CBC 9894352 WBC 6.4 10e9/L 12/15/2013 CBC 3897566 RBC 4.34 10e12/L 12/15/2013 CBC 6830290 HGB 12.9 g/dL 12/15/2013 CBC 2195967 HCT DET 39.3 % 12/15/2013 CBC 3595033 MCV 90.6 fL 12/15/2013 CBC 7301876 MCH 29.7 pg 12/15/2013 CBC 4221689 MCHC 32.8 g/dL 12/15/2013 CBC 0213205 PLT 292 10e9/L 12/15/2013 CBC 6830476 MPV 10.8 fL 12/15/2013 CBC 5674654 BESSY % 63.6 % 12/15/2013 CBC 2270054 LY % 25.7 % 12/15/2013 CBC 6764864 MON % 7.1 % 12/15/2013 CBC 9608315 EOS % 3.3 % 12/15/2013 CBC 2185852 BASO % 0.3 % 12/15/2013 CBC 5749610 RDW 13.4 % 12/15/2013 CBC 9766282 ABS BESSY 4.07 10e9/L 12/15/2013 CBC 5126027 ABS LYMPH 1.64 10e9/L 12/15/2013 CBC 3815670 ABS MONO 0.45 10e9/L 12/15/2013 CBC 0818388 ABS EOS 0.21 10e9/L 12/15/2013 CBC 5512377 ABS BASO 0.02 10e9/L 12/15/2013 CBC 0460135 RDW-SD 43.5 fL 12/15/2013 CHEM 14 1615005 AST 19 U/L 12/15/2013 CHEM 14 7106240 ALT 23 IU/L 12/15/2013 CHEM 14 6571731 BUN 23 MG/DL 12/15/2013 CHEM 14 3062940 ALBUMIN 4.7 GM/DL 12/15/2013 CHEM 14 7573689 CHLORIDE 108 MMOL/L 12/15/2013 CHEM 14 7937648 BILI TOT 0.3 MG/DL 12/15/2013 CHEM 14 7059703 ALK PHOS 58 U/L 12/15/2013 CHEM 14 7358074 SODIUM 139 MMOL/L 12/15/2013 CHEM 14 1413867 CREATININE 0.92 MG/DL 12/15/2013 CHEM 14 0468533 CALCIUM 10.0 MG/DL 12/15/2013 CHEM 14 2344405 POTASSIUM 4.0 MMOL/L 12/15/2013 CHEM 14 20280313 PROT TOT 7.1 GM/DL 12/15/2013 CHEM 14 7153888 GLUCOSE 82 MG/DL 12/15/2013 CHEM 14 20280313 BICARB 24 MMOL/L 12/15/2013 CHEM 14 20280313 ANION GAP 7 MEQ/L 12/15/2013 GFR CALC 4090704 GFR AA >60 ML/MIN 12/15/2013 GFR CALC 1580249 GFR NON-AA >60 ML/MIN 12/15/2013 URINALYSIS NONAUTO W/O SCOPE 41017 Specific [place] 1.025 DateTime(Free Text in Aprima) URINALYSIS NONAUTO W/O SCOPE 94568 PH 5 DateTime(Free Text in Aprima) URINALYSIS NONAUTO W/O SCOPE 82076 GLUCOSE neg DateTime( Free Text in Apr[employer]) URINALYSIS NONAUTO W/O SCOPE 32155 Protein neg DateTime( Free Text in Apr[employer]) URINALYSIS NONAUTO W/O SCOPE 72293 Blood neg DateTime(Free Text in Apr[employer]) URINALYSIS NONAUTO W/O SCOPE 93470 Bilirubin neg DateTime(Free Text in Apr[employer]) URINALYSIS NONAUTO W/O SCOPE 99049 Ketones neg DateTime( Free Text in Apr[employer]) URINALYSIS NONAUTO W/O SCOPE 40347 Urobilinogen neg DateTime(Free Text in Apr[employer]) URINALYSIS NONAUTO W/O SCOPE 20379 Nitrite neg DateTime( Free Text in Apr[employer]) URINALYSIS NONAUTO W/O SCOPE 85895 Leukocytes neg DateTime(Free Text in Aprima) Review [...] accomodation 08/06/2018 None Full Exam - General 1995 Ears/Nose/Throat lips/teeth/gingiva Overall: benign lips 08/06/2018 None [...] dentition 06/13/2015 None Full Exam - General 1995 Ears/Nose/Throat oral cavity/pharynx/larynx Overall: oral mucosa clear 06/13/2015 None Full Exam - General 1994 Ears/Nose/Throat oral cavity/pharynx/larynx Overall: oropharyngeal mucosa clear 06/13/2015 None Full Exam - General 1995 Ears/Nose/Throat oral cavity/pharynx/larynx Overall: hypopharynx benign 06/13/2015 [...] lips 05/10/2015 None Full Exam - General 1995 Ears/Nose/Throat lips/teeth/gingiva Overall: normal dentition 05/10/2015 None Full Exam - General 1994 Ears/Nose/Throat oral cavity/pharynx/larynx Overall: oral mucosa clear 05/10/2015 None Full Exam - General 1994 Ears/Nose/Throat oral cavity/pharynx/larynx Overall: oropharyngeal mucosa clear 05/10/2015 None Full Exam - General 1995 Ears/Nose/Throat oral cavity/pharynx/larynx Overall: hypopharynx benign 05/10/2015 [...] vein procedure that will be perform in [place] in May. Full Exam - General 1994 [...] masses 03/16/2014 None Full Exam - General 1995 Respiratory auscultation Overall: breath sounds clear bilaterally 03/16/2014 None Full Exam - General 1995 Respiratory respiratory effort/rhythm Overall: no retractions 03/16/2014 [...] clear 01/12/2014 None Full Exam - General 1995 Ears/Nose/Throat oral cavity/pharynx/larynx Overall: oral mucosa clear 01/12/2014 None Full Exam - General 1994 Ears/Nose/Throat oral cavity/pharynx/larynx Overall: oropharyngeal mucosa clear 01/12/2014 None Full Exam - General 1995 Ears/Nose/Throat oral cavity/pharynx/larynx Overall: no masses 01/12/2014 [...] time 12/15/2013 None Full Exam - General 1995 Constitutional general appearance Overall: well developed 10/20/2013 None Full Exam - General 1995 Constitutional general appearance Overall: in no acute distress 10/20/2013 None Full Exam - General 1995 Constitutional general appearance Overall: well nourished 10/20/2013 [...] the left Full Exam - General 1995 Abdomen abdominal [...] 1995 Ears/Nose/Throat oral cavity/pharynx/larynx Overall: no masses 12/25/2012 [...] murmurs 10/20/2012 None Full Exam - General 1995 Abdomen abdominal exam Overall: no tenderness 10/20/2012 [...] retractions 07/10/2012 None Full Exam - General 1995 [...] Procedure Codes Date IMMUNIZATION ADMIN CPT -4: 56268 06/05/2018 FLU VAC NO PRSV 4 ZONIA 3 YRS+ CPT-4: 80154 06/05/2018 IMMUNIZATION ADMIN CPT -4: 01141 06/19/2017 FLU VAC NO PRSV 4 ZONIA 3 YRS+ CPT-4: 29227 06/19/2017 URINALYSIS NONAUTO W/O SCOPE CPT-4: 13652 09/08/2015 IMMUNIZATION ADMIN CPT -4: 10922 03/30/2015 ADACEL TDAP VACCINE 7 YRS/> IM CPT-4: 00992 03/30/2015 URINALYSIS NONAUTO W/O SCOPE CPT-4: 78903 03/22/2015 THER/PROPH/DIAG INJ SC/IM CPT-4: 01975 11/11/2014 ROCEPHIN, PER 250 MG CPT-4: J0696 11/11/2014 ROUTINE VENIPUNCTURE CPT-4: 46798 10/15/2014 HgbA1c CPT-4: 18847 10/15/2014 CBC (COMPLETE CBC W/AUTO DIFF WBC) CPT-4: 15342 10/15/2014 CHEM 14 (COMPREHEN METABOLIC PANEL) CPT-4: 51851 10/15/2014 TSH (ASSAY THYROID STIM HORMONE) CPT-4: 10375 10/15/2014 VIT D TOTL (VITAMIN D 25 HYDROXY) CPT-4: 33954 10/15/2014 FREE T4 (ASSAY OF FREE THYROXINE) CPT-4: 23619 10/15/2014 ROUTINE VENIPUNCTURE CPT-4: 64048 06/23/2014 CHEM 14 (COMPREHEN METABOLIC PANEL) CPT-4: 07287 06/23/2014 TSH (ASSAY THYROID STIM HORMONE) CPT-4: 46424 06/23/2014 FREE T4 (ASSAY OF FREE THYROXINE) CPT-4: 24002 06/23/2014 URINALYSIS NONAUTO W/O SCOPE CPT-4: 65717 12/15/2013 ROUTINE VENIPUNCTURE CPT-4: 57194 12/15/2013 THER/PROPH/DIAG INJ SC/IM CPT-4: 34416 11/03/2012 VITAMIN B12 INJECTION CPT-4: J3420 11/03/2012 THER/PROPH/DIAG INJ SC/IM CPT-4: 65818 10/20/2012 VITAMIN B12 INJECTION CPT-4: J3420 10/20/2012 VITAMIN B12 INJECTION CPT-4: J3420 09/11/2012 THER/PROPH/DIAG INJ SC/IM CPT-4: 36463 09/11/2012 THER/PROPH/DIAG INJ SC/IM CPT-4: 73361 08/11/2012 VITAMIN B12 INJECTION CPT-4: J3420 08/11/2012 THER/PROPH/DIAG INJ SC/IM CPT-4: 96194 07/21/2012 VITAMIN B12 INJECTION CPT-4: J3420 07/21/2012 Vital Signs Date Vital 10/02/2018 Blood Pressure 1: 128/78 Code : 8480-6 BMI: 32.0 Code : 78735-4 Heart Rate 1 : 73 bpm Height: 5'6" SpO2: 98% Weight: 198 lbs 08/06/2018 Blood Pressure 1: 116/78 Code : 8480-6 BMI: 32.3 Code : 06369-8 Heart Rate 1 : 71 bpm Height: 5'6" SpO2: 98% Weight: 200 lbs 07/08/2018 Blood Pressure 1: 128/70 Code : 8480-6 BMI: 32.4 Code : 58409-3 Heart Rate 1 : 76 bpm Height: 5'6" SpO2: 96% Weight: 201 lbs 02/11/2018 Blood Pressure 1: 122/84 Code : 8480-6 BMI: 32.4 Code : 99744-0 Heart Rate 1 : 71 bpm Height: 5'6" SpO2: 97% Weight: 201 lbs 11/12/2017 Blood Pressure 1: 130/82 Code : 8480-6 BMI: 32.3 Code : 52206-8 Height: 5'6" Weight: 200 lbs 08/20/2017 Blood Pressure 1: 126/78 Code : 8480-6 BMI: 32.3 Code : 35407-0 Heart Rate 1 : 66 bpm Height: 5'6" SpO2: 98% Weight: 200 lbs 06/24/2017 Blood Pressure 1: 134/78 Code : 8480-6 BMI: 34.2 Code : 32359-6 Heart Rate 1 : 71 bpm Height: 5'6" SpO2: 95% Weight: 212 lbs 05/22/2017 Blood Pressure 1: 122/78 Code : 8480-6 BMI: 33.9 Code : 12348-1 Heart Rate 1 : 76 bpm Height: 5'6" SpO2: 97% Weight: 210 lbs 05/10/2017 Blood Pressure 1: 130/84 Code : 8480-6 BMI: 34.1 Code : 55983-0 Heart Rate 1 : 90 bpm Height: 5'6" SpO2: 98% Temperature: 36.9 (C) / 98.5 (F) Weight: 211 lbs 04/08/2017 Blood Pressure 1: 132/78 Code : 8480-6 BMI: 34.4 Code : 65627-4 Heart Rate 1 : 72 bpm Height: 5'6" SpO2: 97% Weight: 213 lbs 02/20/2017 Blood Pressure 1: 130/90 Code : 8480-6 BMI: 33.9 Code : 96128-7 Heart Rate 1 : 74 bpm Height: 5'6" SpO2: 98% Weight: 210 lbs 11/21/2016 Blood Pressure 1: 132/74 Code : 8480-6 BMI: 34.2 Code : 44243-7 Heart Rate 1 : 66 bpm Height: 5'6" SpO2: 97% Weight: 212 lbs 08/29/2016 Blood Pressure 1: 136/82 Code : 8480-6 BMI: 33.7 Code : 23885-0 Heart Rate 1 : 70 bpm Height: 5'6" Respiratory Rate: 18 bpm SpO2: 98% Weight: 209 lbs 07/05/2016 Blood Pressure 1: 142/76 Code : 8480-6 BMI: 33.2 Code : 58660-3 Heart Rate 1 : 73 bpm Height: 5'6" SpO2: 98% Weight: 206 lbs 06/11/2016 Blood Pressure 1: 130/82 Code : 8480-6 BMI: 33.4 Code : 01941-6 Heart Rate 1 : 76 bpm Height: 5'6" SpO2: 97% Weight: 207 lbs 06/04/2016 Blood Pressure 1: 134/80 Code : 8480-6 BMI: 33.4 Code : 84395-8 Heart Rate 1 : 71 bpm Height: 5'6" SpO2: 98% Weight: 207 lbs 04/10/2016 Blood Pressure 1: 124/80 Code : 8480-6 BMI: 34.4 Code : 28755-1 Heart Rate 1 : 76 bpm Height: 5'6" SpO2: 96% Weight: 213 lbs 03/26/2016 Blood Pressure 1: 118/74 Code : 8480-6 BMI: 34.4 Code : 83662-0 Heart Rate 1 : 72 bpm Height: 5'6" SpO2: 98% Weight: 213 lbs 01/23/2016 Blood Pressure 1: 134/76 Code : 8480-6 BMI: 33.7 Code : 01844-6 Heart Rate 1 : 76 bpm Height: 5'6" SpO2: 97% Weight: 209 lbs 12/26/2015 Blood Pressure 1: 116/76 Code : 8480-6 BMI: 33.4 Code : 43108-1 Heart Rate 1 : 78 bpm Height: 5'6" SpO2: 98% Weight: 207 lbs 11/02/2015 Blood Pressure 1: 118/80 Code : 8480-6 BMI: 33.6 Code : 98847-7 Heart Rate 1 : 75 bpm Height: 5'6" SpO2: 95% Weight: 208 lbs 09/13/2015 Blood Pressure 1: 140/82 Code : 8480-6 BMI: 33.6 Code : 22486-3 Heart Rate 1 : 92 bpm Height: 5'6" SpO2: 96% Weight: 208 lbs 09/07/2015 Blood Pressure 1: 140/82 Code : 8480-6 BMI: 33.4 Code : 75194-1 Heart Rate 1 : 85 bpm Height: 5'6" SpO2: 95% Weight: 207 lbs 08/16/2015 Blood Pressure 1: 138/84 Code : 8480-6 BMI: 32.9 Code : 99502-6 Heart Rate 1 : 87 bpm Height: 5'6" SpO2: 97% Weight: 204 lbs 06/13/2015 Blood Pressure 1: 130/82 Code : 8480-6 BMI: 33.1 Code : 91312-4 Heart Rate 1 : 84 bpm Height: 5'6" SpO2: 96% Weight: 205 lbs 05/10/2015 Blood Pressure 1: 118/70 Code : 8480-6 BMI: 32.9 Code : 42936-1 Heart Rate 1 : 77 bpm Height: 5'6" SpO2: 97% Weight: 204 lbs 03/22/2015 Blood Pressure 1: 118/76 Code : 8480-6 BMI: 32.0 Code : 96137-2 Heart Rate 1 : 88 bpm Height: 5'6" Temperature: 36.2 (C) / 97.2 (F) Weight: 198 lbs 01/17/2015 Blood Pressure 1: 120/80 Code : 8480-6 BMI: 32.6 Code : 23774-6 Heart Rate 1 : 88 bpm Height: 5'6" Weight: 202 lbs 11/22/2014 Blood Pressure 1: 118/82 Code : 8480-6 BMI: 31.8 Code : 20575-1 Heart Rate 1 : 72 bpm Height: 5'6" Weight: 197 lbs 10/27/2014 Blood Pressure 1: 130/82 Code : 8480-6 BMI: 32.0 Code : 18992-4 Heart Rate 1 : 86 bpm Height: 5'6" SpO2: 97% Weight: 198 lbs 10/15/2014 Blood Pressure 1: 118/82 Code : 8480-6 BMI: 32.1 Code : 76271-4 Heart Rate 1 : 100 bpm Height: 5'6" Weight: 199 lbs 09/30/2014 Blood Pressure 1: 118/86 Code : 8480-6 BMI: 32.0 Code : 10696-0 Heart Rate 1 : 80 bpm Height: 5'6" Temperature: 35.7 (C) / 96.3 (F) Weight: 198 lbs 07/14/2014 Blood Pressure 1: 116/80 Code : 8480-6 BMI: 32.9 Code : 35469-2 Heart Rate 1 : 80 bpm Height: 5'6" Weight: 204 lbs 06/23/2014 Blood Pressure 1: 128/88 Code : 8480-6 BMI: 33.7 Code : 90737-0 Height: 5'6" Weight: 209 lbs 04/09/2014 Blood Pressure 1: 138/82 Code : 8480-6 Heart Rate 1: 90 bpm SpO2: 97% Temperature: 35.8 (C) / 96.5 (F) Weight: 210 lbs 03/16/2014 Blood Pressure 1: 116/80 Code : 8480-6 BMI: 34.1 Code : 07356-4 Heart Rate 1 : 88 bpm Height: 5'6" Weight: 211 lbs 01/12/2014 Blood Pressure 1: 124/70 Code : 8480-6 BMI: 33.4 Code : 92034-3 Heart Rate 1 : 76 bpm Height: 5'6" Weight: 207 lbs 12/15/2013 Blood Pressure 1: 144/100 Code: 8480-6 Blood Pressure 2: 124/90 Code: 8480-6 Heart Rate 1: 72 bpm Weight: 215 lbs 10/20/2013 Blood Pressure 1: 130/84 Code : 8480-6 BMI: 34.5 Code : 64430-5 Heart Rate 1 : 84 bpm Height: 5'6" Weight: 214 lbs 09/15/2013 Blood Pressure 1: 128/90 Code : 8480-6 BMI: 34.9 Code : 60042-5 Heart Rate 1 : 88 bpm Height: 5'6" Temperature: 36.5 (C) / 97.7 (F) Weight: 216 lbs 07/27/2013 Blood Pressure 1: 138/90 Code : 8480-6 BMI: 34.4 Code : 10603-7 Heart Rate 1 : 88 bpm Height: 5'6" Weight: 213 lbs 06/09/2013 Blood Pressure 1: 138/92 Code : 8480-6 Heart Rate 1: 88 bpm Weight: 04/20/2013 Blood Pressure 1: 142/92 Code : 8480-6 BMI: 34.4 Code : 14978-2 Heart Rate 1 : 88 bpm Height: 5'6" Weight: 213 lbs 03/23/2013 Blood Pressure 1: 116/84 Code : 8480-6 BMI: 34.1 Code : 87424-4 Heart Rate 1 : 76 bpm Height: 5'6" Weight: 211 lbs 01/21/2013 Blood Pressure 1: 130/88 Code : 8480-6 BMI: 34.5 Code : 65544-9 Heart Rate 1 : 80 bpm Height: 5'6" Weight: 214 lbs 12/25/2012 Blood Pressure 1: 112/70 Code : 8480-6 Heart Rate 1: 84 bpm Respiratory Rate : 20 bpm Weight: 214 lbs 8 oz 10/20/2012 Blood Pressure 1: 124/80 Code : 8480-6 BMI: 34.4 Code : 22284-4 Heart Rate 1 : 84 bpm Height: 5'6" Temperature: 36.7 (C) / 98.0 (F) Weight: 213 lbs 08/11/2012 Blood Pressure 1: 116/80 Code : 8480-6 BMI: 33.9 Code : 55383-5 Heart Rate 1 : 76 bpm Height: 5'6" Respiratory Rate: 20 bpm Weight: 210 lbs 07/10/2012 Blood Pressure 1: 110/76 Code : 8480-6 BMI: 46.5 Code : 20453-0 Heart Rate 1 : 84 bpm Height: 4'8" Respiratory Rate: 20 bpm Weight: 207 lbs 8 oz Functional Status No Functional Status data History of Present Illness Symptom Name Status Result Effective Date Notes Quality intermittent 10/02/2018 None Onset and Resolution [...] of Symptom _ weeks ago 09/30/2014 over [place] hol cough Pertinent Findings chest discomfort 09/30/2014 during [...] of Symptom _ weeks ago 09/30/2014 around [place] neck pain Location in the lower cervical/ [...] 07/10/2012 None gait abnormality Onset of Symptom 2 years ago 07/10/[address] Villaseñor- last [...] data Encounters Encounter Performer Location Codes Date ([id number]) 53605 EST. PATIENT, LEVEL IV Diagnosis: Essential (primary) hypertension[ICD10: I10] Diagnosis: Functional diarrhea[ICD10: K59.1] Diagnosis: Generalized anxiety disorder[ICD10: F41.1] Diagnosis: Major depressive disorder, recurrent, moderate[ICD10: F33.1] [facility] CPT-4: 75205 10/02/2018 ([id number]) 16981 EST. PATIENT, LEVEL IV Diagnosis: Essential (primary) hypertension[ICD10: I10] Diagnosis: Generalized anxiety disorder[ICD10: F41.1] Diagnosis: Slow transit constipation[ICD10: K59.01] Diagnosis: Other fatigue[ICD10: R53.83] Diagnosis: Nontoxic multinodular goiter[ICD10: E04.2] Caty Ledesma MD, [facility] CPT-4: 61044 08/06/2018 ([id number]) 83542 EST. PATIENT, LEVEL IV Diagnosis: Essential (primary) hypertension[ICD10: I10] Diagnosis: Major depressive disorder, recurrent, moderate[ICD10: F33.1] Diagnosis: Generalized anxiety disorder[ICD10: F41.1] Caty Ledesma MD, [facility] CPT-4: 14665 07/08/2018 ([id number]) 56210 EST. PATIENT, LEVEL IV Diagnosis: Nontoxic multinodular goiter[ICD10: E04.2] Diagnosis: Mixed hyperlipidemia[ICD10: E78.2] Diagnosis: Essential (primary) hypertension[ICD10: I10] Caty Ledesma MD, [facility] CPT-4: 20946 02/11/2018 ([id number]) 30109 EST. PATIENT, LEVEL IV Diagnosis: Nontoxic multinodular goiter[ICD10: E04.2] Diagnosis: Essential (primary) hypertension[ICD10: I10] Diagnosis: Other fatigue[ICD10: R53.83] Caty Ledesma MD, [facility] CPT- 4: 39186 11/12/2017 ([id number]) 14810 EST. PATIENT, LEVEL IV Diagnosis: Nontoxic multinodular goiter[ICD10: E04.2] Diagnosis: Major depressive disorder, recurrent, moderate[ICD10: F33.1] Diagnosis: Generalized anxiety disorder[ICD10: F41.1] Diagnosis: Essential (primary) hypertension[ICD10: I10] Caty Ledesma MD, [facility] CPT-4: 51355 08/20/2017 ([id number]) 99439 EST. PATIENT, LEVEL III Diagnosis: Acute recurrent maxillary sinusitis[ICD10: J01.01] Diagnosis: Encounter for other preprocedural examination[ICD10: Z01.818] Mira Ledesma MD, [facility] CPT-4: 24412 06/24/2017 ([id number]) 31130 EST. PATIENT, LEVEL IV Diagnosis: Acute recurrent frontal sinusitis[ICD10: J01.11] Diagnosis: Type 2 diabetes mellitus without complications[ICD10: E11.9] Diagnosis: Essential (primary) hypertension[ICD10: I10] Caty Ledesma MD, [facility] CPT-4: 65901 05/22/2017 ([id number]) 65649 EST. PATIENT, LEVEL III Diagnosis: Acute recurrent maxillary sinusitis[ICD10: J01.01] Diagnosis: Cough[ICD10: R05] Mira Ledesma MD, [facility] CPT-4: 44749 05/10/2017 ([id number]) 53070 EST. PATIENT, LEVEL IV Diagnosis: Generalized anxiety disorder[ICD10: F41.1] Diagnosis: Muscle weakness (generalized)[ICD10: M62.81] Diagnosis: Somnolence[ICD10: R40.0] Diagnosis: Snoring[ICD10: R06.83] Caty Ledesma MD, [facility] CPT-4: 94635 04/08/2017 ([id number]) 70289 EST. PATIENT, LEVEL IV Diagnosis: Vitamin deficiency, unspecified[ICD10: E56.9] Diagnosis: Major depressive disorder, recurrent, moderate[ICD10: F33.1] Diagnosis: Generalized anxiety disorder[ICD10: F41.1] Diagnosis: Impaired fasting glucose[ICD10: R73.01] Diagnosis: Chronic migraine without aura, not intractable, without status migrainosus[ICD10: G43.709] Diagnosis: Essential (primary) hypertension[ICD10: I10] Diagnosis: Mixed hyperlipidemia[ICD10: E78.2] Diagnosis: Nontoxic multinodular goiter[ICD10: E04.2] Caty Ledesma MD, [facility] CPT-4: 31777 02/20/2017 ([id number]) 75487 EST. PATIENT, LEVEL IV Diagnosis: Generalized anxiety disorder[ICD10: F41.1] Diagnosis: Major depressive disorder, recurrent, moderate[ICD10: F33.1] Diagnosis: Chronic pain syndrome[ICD10: G89.4] Diagnosis: Other specified polyneuropathies[ICD10: G62.89] Diagnosis: Muscle weakness (generalized)[ICD10: M62.81] Diagnosis: Essential (primary) hypertension[ICD10: I10] Caty Ledesma MD [facility] CPT-4: 07915 11/21/2016 ([id number]) 67024 EST. PATIENT, LEVEL III Diagnosis: Generalized abdominal pain[ICD10: R10.84] Diagnosis: Essential (primary) hypertension[ICD10: I10] Caty Ledesma MD, [facility] CPT-4: 82985 08/29/2016 ([id number]) 31837 EST. PATIENT, LEVEL III Diagnosis: Epigastric pain[ICD10: R10.13] Caty Ledesma MD [facility] CPT- 4: 87171 07/05/2016 ([id number]) 33378 EST. PATIENT, LEVEL III Diagnosis: Toxic gastroenteritis and colitis[ICD10: K52.1] Caty Ledesma MD [facility] CPT-4: 93472 06/11/2016 40397 EST. PATIENT, LEVEL III Diagnosis: Left upper quadrant pain[ICD10: R10.12] Estrella Ledesma MD [facility] CPT-4: 67976 06/04/2016 ([id number]) 01148 EST. PATIENT, LEVEL III Diagnosis: Cellulitis of left toe[ICD10: L03.032] Mira Ledesma MD [facility] CPT-4: 72879 04/10/2016 ([id number]) 49347 EST. PATIENT, LEVEL III Diagnosis: Essential (primary) hypertension[ICD10: I10] Diagnosis: Chronic pain syndrome[ICD10: G89.4] Diagnosis: Other fatigue[ICD10: R53.83] Caty Ledesma MD [facility] CPT- 4: 26513 03/26/2016 ([id number]) 02939 EST. PATIENT, LEVEL III Diagnosis: Gastro-esophageal reflux disease without esophagitis[ICD10: K21.9] Caty Ledesma MD [facility] CPT-4: 52053 01/23/2016 ([id number]) 86412 EST. PATIENT, LEVEL IV Diagnosis: Type 2 diabetes mellitus without complications[ICD10: E11.9] Diagnosis: Gastro-esophageal reflux disease without esophagitis[ICD10: K21.9] Diagnosis: Functional diarrhea[ICD10: K59.1] Caty Ledesma MD [facility] CPT-4: 97755 12/26/2015 46129 EST. PATIENT, LEVEL IV Diagnosis: Other seasonal allergic rhinitis[ICD10: J30.2] Diagnosis: Acute recurrent maxillary sinusitis[ICD10: J01.01] Diagnosis: Cough[ICD10: R05] Estrella Ledesma MD [facility] CPT-4: 00550 11/02/2015 12663 EST. PATIENT, LEVEL III Diagnosis: Acute recurrent maxillary sinusitis[ICD10: J01.01] Diagnosis: Urgency of urination[ICD10: R39.15] Diagnosis: Cough[ICD10: R05] Diagnosis: Acute laryngopharyngitis[ICD10: J06.0] Estrella Ledesma MD [facility] CPT-4: 68378 09/13/2015 22500 EST. PATIENT, LEVEL IV Diagnosis: Pain in left lower leg[ICD10: M79.662] Diagnosis: Cramp and spasm[ICD10: R25.2] Diagnosis: Acute nasopharyngitis [common cold][ICD10: J00] Estrella Ledesma MD, [facility] CPT-4: 51543 09/07/2015 ([id number]) 73326 EST. PATIENT, LEVEL IV Diagnosis: Essential (primary) hypertension[ICD10: I10] Diagnosis: Type 2 diabetes mellitus without complications[ICD10: E11.9] Diagnosis: Varicose veins of unspecified lower extremities with other complications[ICD10: I83.899] Caty Ledesma MD [facility] CPT-4: 33022 08/16/2015 ([id number]) 03807 EST. PATIENT, LEVEL IV Diagnosis: Type 2 diabetes mellitus without complications[ICD10: E11.9] Diagnosis: Other mixed anxiety disorders[ICD10: F41.3] Diagnosis: Vitamin deficiency, unspecified[ICD10: E56.9] Diagnosis: Essential (primary) hypertension[ICD10: I10] Caty Ledesma MD [facility] CPT-4: 29120 06/13/2015 ([id number]) 36515 EST. PATIENT, LEVEL IV Diagnosis: ESSENTIAL HYPERTENSION[ICD9: 401.9] Diagnosis: CHRONIC PAIN SYNDROME[ICD9: 338.4] Caty Ledesma MD [facility] CPT-4: 30393 05/10/2015 ([id number]) 23920 EST. PATIENT, LEVEL III Diagnosis: Back pain[ICD9: 724.5] Diagnosis: URINARY FREQUENCY[ICD9: 788.41] Caty Ledesma MD [facility] CPT- 4: 73772 03/22/2015 ([id number]) 32651 EST. PATIENT, LEVEL IV Diagnosis: ESSENTIAL HYPERTENSION[ICD9: 401.9] Diagnosis: DIABETES TYPE II[ICD9: 250.00] Diagnosis: Varicose vein[ICD9: 454.9] Caty Ledesma MD [facility] CPT- 4: 38821 01/17/2015 ([id number]) 56119 EST. PATIENT, LEVEL IV Diagnosis: HEADACHE[ICD9: 784.0] Diagnosis: Neck pain[ICD9: 723.1] Diagnosis: Vision changes[ICD9: 368.9] Diagnosis: Nausea[ICD9: 787.02] Mira Ledesma MD, [facility] CPT-4: 77162 11/22/2014 ([id number]) 46122 EST. PATIENT, LEVEL I Diagnosis: Meningitis exposure[ICD9: V01.89] Caty Ledesma MD, [facility] CPT-4: 57718 11/11/2014 ([id number]) 92594 EST. PATIENT, LEVEL IV Diagnosis: Elevated blood sugar[ICD9: 790.29] Diagnosis: ESSENTIAL HYPERTENSION[ICD9: 401.9] Caty Ledesma MD, [facility] CPT-4: 17979 10/27/2014 ([id number]) 32347 EST. PATIENT, LEVEL IV Diagnosis: Costochondritis[ICD9: 733.6] Diagnosis: ALLERGIC RHINITIS[ICD9: 477.9] Diagnosis: Vitamin D deficiency[ICD9: 268.9] Diagnosis: Elevated blood sugar[ICD9: 790.29] Mira Ledesma MD, [facility] CPT-4: 70436 10/15/2014 ([id number]) 06019 EST. PATIENT, LEVEL IV Diagnosis: ESSENTIAL HYPERTENSION[ICD9: 401.9] Diagnosis: Diarrhea[ICD9: 787.91] Caty Ledesma MD [facility] CPT-4: 86818 09/30/2014 ([id number]) 38706 EST. PATIENT, LEVEL IV Diagnosis: Raynauds disease[ICD9: 443.0] Diagnosis: Nausea[ICD9: 787.02] Diagnosis: ESSENTIAL HYPERTENSION[ICD9: 401.9] Caty Ledesma MD [facility] CPT-4: 13695 07/14/2014 ([id number]) 52234 EST. PATIENT, LEVEL IV Diagnosis: ESSENTIAL HYPERTENSION[ICD9: 401.9] Diagnosis: Esophageal reflux[ICD9: 530.81] Diagnosis: Hyponatremia[ICD9: 276.1] Diagnosis: OBESITY[ICD9: 278.00] Diagnosis: Chronic migraine[ICD9: 346.70] Caty Ledesma MD [facility] CPT- 4: 41940 06/23/2014 ([id number]) 02071 EST. PATIENT, LEVEL IV Diagnosis: ESSENTIAL HYPERTENSION[ICD9: 401.9] Diagnosis: GERD (gastroesophageal reflux disease)[ICD9: 530.81] Diagnosis: Costochondritis[ICD9: 733.6] Mira Ledesma MD [facility] CPT-4: 98483 04/09/2014 ([id number]) 64754 EST. PATIENT, LEVEL IV Diagnosis: ESSENTIAL HYPERTENSION[ICD9: 401.9] Diagnosis: RAYNAUD'S SYNDROME[ICD9: 443.0] Caty Ledesma MD [facility] CPT- 4: 58690 03/16/2014 ([id number]) 73970 EST. PATIENT, LEVEL III Diagnosis: ESSENTIAL HYPERTENSION[SNOMED: 42151062] Diagnosis: ALLERGIC RHINITIS[ICD9: 477.9] Diagnosis: Knee pain[ICD9: 719.46] Caty Ledesma MD [facility] CPT-4: 41997 01/12/2014 ([id number]) 76635 EST. PATIENT, LEVEL IV Diagnosis: ALLERGIC RHINITIS[ICD9: 477.9] Diagnosis: ESSENTIAL HYPERTENSION[SNOMED: 17881573] Diagnosis: Fatigue[ICD9: 780.79] Caty Ledesma MD, [facility] CPT-4: 80898 12/15/2013 ([id number]) 73770 EST. PATIENT, LEVEL III Diagnosis: ESSENTIAL HYPERTENSION[SNOMED: 82967472] Diagnosis: Skin lesion[ICD9: 709.9] Diagnosis: Raynauds disease[ICD9: 443.0] Caty Ledesma MD [facility] CPT- 4: 24453 10/20/2013 ([id number]) 40443 EST. PATIENT, LEVEL III Diagnosis: ACUTE SINUSITIS[ICD9: 461.9] Caty Ledesma MD, [facility] CPT- 4: 94685 09/15/2013 ([id number]) 49959 EST. PATIENT, LEVEL IV Diagnosis: ESSENTIAL HYPERTENSION[SNOMED: 05315832] Diagnosis: Peripheral neuropathy[ICD9: 356.9] Diagnosis: Vitamin D deficiency[ICD9: 268.9] Diagnosis: Vitamin B12 deficiency[ICD9: 266.2] Caty Ledesma MD [facility] CPT-4: 69317 07/27/2013 ([id number]) 50234 EST. PATIENT, LEVEL III Diagnosis: ACUTE SINUSITIS[ICD9: 461.9] Diagnosis: COUGH[ICD9: 786.2] Mira Ledesma MD, [facility] CPT-4: 39495 06/09/2013 40327 EST. PATIENT, LEVEL IV Diagnosis: HEADACHE[ICD9: 784.0] Diagnosis: Dysphagia[ICD9: 787.20] Diagnosis: Esophageal reflux[ICD9: 530.81] Caty Ledesma MD, [facility] CPT- 4: 20341 04/20/2013 ([id number]) 02750 EST. PATIENT, LEVEL IV Diagnosis: Seasonal allergic rhinitis[ICD9: 477.9] Diagnosis: HEADACHE[ICD9: 784.0] Diagnosis: ESSENTIAL HYPERTENSION[SNOMED: 52367946] Caty Ledemsa MD, [facility] CPT-4: 91789 03/23/2013 ([id number]) 81921 EST. PATIENT, LEVEL III Diagnosis: ABNORMALITY OF GAIT[ICD9: 781.2] Diagnosis: B-COMPLEX DEFIC NEC[ICD9: 266.2] Caty Ledesma MD, [facility] CPT-4: 01949 01/21/2013 ([id number]) 90054 EST. PATIENT, LEVEL IV Diagnosis: ESSENTIAL HYPERTENSION[SNOMED: 47116588] Diagnosis: Breast pain[ICD9: 611.71] Caty Ledesma MD, [facility] CPT-4: 09047 12/25/2012 [id number]) 04709 EST. PATIENT, LEVEL III Diagnosis: ESSENTIAL HYPERTENSION[SNOMED: 10136543] Diagnosis: ACUTE URI[ICD9: 465.9] Caty Ledesma MD, [facility] CPT-4: 21847 10/20/2012 [id number]) 66676 EST. PATIENT, LEVEL IV Diagnosis: B-COMPLEX DEFIC NEC[ICD9: 266.2] Diagnosis: ESSENTIAL HYPERTENSION[SNOMED: 14438095] Diagnosis: Gait instability[ICD9: 781.2] Diagnosis: Back pain[ICD9: 724.5] [facility] CPT-4: 02781 08/11/2012 OFFICE VISIT, NEW - LEVEL 4 Diagnosis: ESSENTIAL HYPERTENSION[SNOMED: 05538365] Diagnosis: ACUTE SINUSITIS[ICD9: 461.9] Diagnosis: Gait instability[ICD9: 781.2] Diagnosis: Weakness of both legs[ICD9: 729.89] Mira Ledesma MD, [facility] CPT-4: 41157 07/10/2012 Plan of Care Planned Activity Notes Codes Status Date Visit Plan: Hypertension - well controlled - [...] exposure. No change in current medications. 10/02/2018 Patient Education: Patient Medication Summary Completed [...] pristiq 08/06/2018 Appointment: Caty Ledesma WPtel: [phone] [facility] (15 min) Moderate 08/06/2018 Patient Education: Patient Medication Summary Completed 08/06/2018 Patient Education: Patient Medication Summary Completed 07/09/2018 Care Plan: [facility] 87331-6 Pending 07/09/2018 Visit Plan: Hypertension - well [...] tolerate the previously decreased dosing. 07/08/2018 Appointment: Cayt Ledesma WPtel: [phone] [facility] (15 min) Moderate 07/08/2018 Patient Education: Patient [...] medications. 02/11/2018 [facility]ment[phone] [place] (15 min) Moderate 02/11/2018 Patient Education: [...] daily. 11/12/2017 Appointment: [phone] [facility] [place] (15 min) Moderate 11/12/2017 Patient Education: [...] healing well. 08/20/2017 Appointment: [phone] [facility] [place] (15 min) Moderate 08/20/2017 Patient Education: [...] Dr Weaver 06/24/2017 Appointment: [facility]ada[facility]el[phone] [phone] (30 min) Complex 06/24/2017 Patient Education: Patient [...] controlled. 05/22/2017 Appointment: [phone] [facility] (15 min) Moderate 05/22/2017 Patient Education: Patient Medication Summary Completed 05/22/2017 Visit Plan: Sinusitis - Pt has acute infection - pain in face, maxillary region, Pt informed to use decongestant, RX given to patient, sinus rinses also recommended. Call if symptoms do not show improvement. 05/10/2017 Appointment: Mira Valladares WPtel: [phone] [phone] [place] (15 min) Moderate 05/10/2017 Patient Education: Patient Medication Summary Completed 05/10/2017 Visit Plan: Fatigue - daytime - recommended sleep study, change pristiq to night-time dosing. Sleep study to be scheduled - RX for sleep study sent to hospital. - pt has significant sleepiness during the day - she had a score of 17 on epiworth sleepiness scale. 04/08/2017 Appointment: [phone] [phone] (15 min) Moderate 04/08/2017 Patient Education: Patient [...] thyroid ultrasound. 02/20/2017 Appointment: [phone] [facility] (30 min) Complex 02/20/2017 Patient Education: Patient [...] my patient. 11/21/2016 Appointment: [phone] [facility] (15 min) Moderate 11/21/2016 Patient Education: Patient [...] improving. 08/29/2016 Appointment: Caty Ledesma WPtel: [phone] [facility] (30 min) Complex 08/29/2016 Patient Education: Patient Medication Summary Completed 08/29/2016 Patient Education: Hypertension Completed 08/29/2016 Visit Plan: referral to dr. aburto for cysts of right abdomen near ribs 07/05/2016 Appointment: Cat[facility] Led[facility] [phone] [phone] (15 min) Moderate 07/05/2016 Patient Education: Patient [...] pain. 06/04/2016 Appointment: Estrella Bynum WPtel: [phone] [phone] (15 min) Moderate 06/04/2016 Patient Education: Patient [...] of plan. 04/10/2016 Appointment: Mira Valladares WPtel: [address] [place], [place] [phone] (30 min) [facility] 04/10/2016 Patient Education: Patient Medication [...] 12/26/2015 Care Plan: Referral Order SNOMED-CT : 230492311 Pending 12/26/2015 Appointment: Caty Ledesma WPtel: [address] [place], [place] [address] (15 min) Moderate 12/19/2015 Visit Plan: URI [...] to keep appt with Dr. Kwon in [place] for treatment of varicose veins. 08/16/2015 Patient [...] over-medication. 05/10/2015 Appointment: [facility] Led[phone] [facility] [place] Follow up 05/10/2015 Patient Education: Patient [...] veins - referral to Vascular team from [facility] 01/17/2015 Appointment: Cat[facility] Led[facility]ma [facility] [phone] [facility] [place] Follow up 01/17/2015 Patient Education: Patient Medication Summary Completed 01/17/2015 Patient Education: Hypertension Completed 01/17/2015 Care Plan: Referral Order referral to [facility] for varicose veins - need to see if the patient can have her ultrasound studies HERE with [employer] [facility] SNOMED-CT : [id number] Ordered 01/17/2015 Appointment: Caty Ledesma WPtel: [facility] [place] Follow up 01/04/2015 Visit Plan: Worsening fytkrbdw-xngnji-ahcw injury 1 week ago-recommend CT head due [...] three weeks. 10/27/2014 Appointment: Caty Ledesma WPtel: [address] [place] [address] Follow up 10/27/2014 Patient Education: Patient Medication [...] the nasal steroid allergy spray. Elevated blood yhpdzk-nrhmjiull-ginzpm-check Hgb A1c as well as TSH Vitamin D deficiency-check vitamin D level 10/15/2014 Appointment: Follow up 10/15/2014 Patient Education: Patient Medication Summary Completed 10/15/2014 Care Plan: TSH Pending 10/15/2014 Care Plan[facility] Pending 10/15/2014 Care Plan: VIT D TOTL [...] stomach pain. 09/30/2014 Appointment: Caty Ledesma WPtel: [address] [place], [place] [phone] Follow up 09/30/2014 Patient Education: Patient Medication Summary Completed 09/30/2014 Patient Education: Hypertension Completed 09/30/2014 Appointment: Caty Ledesma WPtel: [address] [place], [place] [phone] Follow up 09/29/2014 Visit Plan: Nausea - [...] at home. 07/14/2014 Appointment: [facility] [phone] [phone] Follow up 07/14/2014 Patient Education: Patient Medication [...] labs. 06/23/2014 Appointment: Caty Ledesma WPtel: [phone] [facility] Follow up 06/23/2014 Patient Education: Patient [...] are worsening. 03/16/2014 Appointment: Caty Ledesma WPtel: [phone] [facility] Follow up 03/16/2014 Patient Education: Patient [...] allergy spray. 01/12/2014 Appointment: [facility] Led[facility] [phone] [facility] Follow [facility] 01/12/2014 Patient Education: Patient Medication [...] Fatigue-check labs 12/15/2013 Appointment: Mira Valladares WPtel[facility] [phone] [phone] Follow up 12/15/2013 Patient Education: Patient Medication [...] - on scalp - referral to her preboarder - Dr. Teran. Recommended pt to call for appt. Raynaud - very mild case - pt to continue with norvasc, monitor symptoms, keep hands warm, call if symptoms worsen, if fingers turn and stay persistently purple, will consider topical treatments versus increase in norvasc. 10/20/2013 Appointment: Caty Ledesma WPtel: [facility] Follow up 10/20/2013 Patient Education: Patient Medication Summary Completed 10/20/2013 Patient Education: Hypertension Completed 10/20/2013 Visit Plan: Sinusitis - Pt has acute infection - pain in face, maxillary region, Pt informed to use decongestant, RX given to patient, sinus rinses also recommended. Call if symptoms do not show improvement. 09/15/2013 Appointment: Caty Ledesma WPtel: [facility] Sick 09/15/2013 Patient Education: Patient Medication [...] tolerance test. 07/27/2013 Appointment: Caty Ledesma WPtel: [facility] Follow [facility] 07/27/2013 Patient Education: Patient Medication Summary Completed 07/27/2013 Patient Education: Hypertension Completed 07/27/2013 Visit Plan: Sinusitis - Pt has acute infection - pain in face, maxillary region, Pt informed to use decongestant, RX given to patient, sinus rinses also recommended. Call if symptoms do not show improvement. 06/09/2013 Appointment: Mira Valladares WPtel: [phone] [place] Sick 06/09/2013 Patient Education: Patient Medication Summary [...] pepcid 04/20/2013 Appointment: Mira Valladares WPtel: [phone] [phone] Other 04/20/2013 Patient Education: Patient Medication Summary [...] at home. 03/23/2013 Appointment: Caty Ledesma WPtel: [facility] Follow up 03/23/2013 Patient Education: Patient Medication Summary Completed 03/23/2013 Patient Education: Hypertension Completed 03/23/2013 Visit Plan: Gait abnormality with falling at home and hitting head - suspect concussion - recommend that Stephanie see Jose Luis at [facility] for balance and gait training. B12 deficiency - improved with b12 shots, will have patient go back to every 2 week injections instead of weekly injections. 01/21/2013 Appointment: Caty Ledesma WPtel: [address] [place], [place] [phone] Follow up 01/21/2013 Patient Education: Patient Medication [...] have mammo. 12/25/2012 Appointment: Caty Ledesma WPtel: [address] [place], [place] [phone] Follow up 12/25/2012 Patient Education: Patient Medication [...] clinic today. 10/20/2012 Appointment: Caty Ledesma WPtel: [facility] Follow up 10/20/2012 Patient Education: Patient Medication Summary Completed 10/20/2012 Patient Education: Hypertension Completed 10/20/2012 [facility] [phone] [id number] [place] Injection 09/11/2012 Patient Education: Patient Medication Summary Completed 09/11/2012 Appointment[facility] CallieConi des[facility] [phone] [facility] [place] Injection 08/18/2012 Visit Plan: Hypertension - [...] a surgeon. 08/11/2012 App[facility]ment: [facility] [phone] [facility] [place] Follow up 08/11/2012 Patient Education: Patient Medication Summary Completed 08/11/2012 Patient Education: Hypertension Completed 08/11/2012 App[facility]ment[facility] Led[facility]ma [facility] [place] [facility] 07/21/2012 Patient Education: Patient Medication [...] d level. 07/10/2012 Appointment: Mira Valladares WPtel[phone] New Patient 07/10/2012 Patient Education: Patient Medication Summary Completed 07/10/2012 Patient Education: High Blood Pressure: Essential Hypertension Completed 2011 Referral: Blaise Aburto Info. faxed Completed Referral: Blaise Aburto Referral Appointment Requested Referral: [facility], - Referral Appointment Requested Instructions [...] on lower abdomen - healing well. . Hypertension - well controlled - continue [...] at the end of the three weeks. Hold Aspirin, Lovaza, Antara, and Zetia for [...] at the end of the three weeks.. decrease the topiramate to 1.5 pills twice [...] recommended patient to have thyroid ultrasound. . Headaches-check ESR and CRP Dysphagia-thyroid ultrasound [...] the nasal steroid allergy spray. Elevated blood hbjnuh-icqqflojh-uyrmro-check Hgb A1c as well as TSH Vitamin [...] of 17 on epiworth sleepiness scale. . Worsening kqrhxrgn-xnfqqu-mcwi injury 1 week ago- recommend CT head due to worsening symptoms and concern for subdural hematoma- patient sent to the hospital for STAT CT. Neck pain-recent fall-xray cervical spine-increase hydrocodone to 10mg/325mg- may consider physical therapy if xray negative for acute injury as patient is experiencing significant neck pain and headache. . Hypertension - well controlled - continue with current medications, continue with no added salt diet. Pt has been encouraged to exercise daily. The pt has been advised to call the office if there are any acute concerns about change in blood pressure readings at home. Breast pain - recommended pt to have mammo. need to take a probiotic one pill [...] assure normal liver response to medications. . pt has been informed of signs [...] plan pending labs and radiology results. . Hypertension - uncontrolled - the patient's [...] them to send us the report also. decrease the amlodipine to 1/2 pill daily [...] stable on lower dose of pristiq . Sinusitis - Pt has acute infection [...] worse. RX sent to patient's pharmacy. . Hypertension - well controlled - continue [...] to keep appt with Dr. Kwon in [place] for treatment of varicose veins. . Sinusitis [...] veins - referral to Vascular team from [facility] RESTART NASAL SPRAY TWICE DAILY CHECK [...] concussion - recommend that Stephanie Amaya at [facility] for balance and gait training. B12 [...] and understands the consequences of over-medication. . Hypertension - well controlled - continue [...] - on scalp - referral to her preboarder - Dr. Teran. Recommended pt to call [...] if the symptoms are not improving. . Diabetes Mellitus - controlled - per [...]
[2019-01-07 07:57] LABS: INR 0.9 (0.8-1.4); PROTHROMBIN TIME PATIENT 12.2 SEC (12.2-14.7)
[2019-01-07] MEDS ORDERED: DIAZEPAM 5 MG (VALIUM) TABLET PO ONE (08:00)
--- OUTSIDE RECORDS SUMMARY | 2019-01-07 08:01 | XMS REPORT | CCD ---
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 Member Name Role Phone PP Unavailable CCM Unavailable Summary Purpose Interface Exchange Insurance Providers Payer name Policy type / Coverage type Covered green party ID Effective Begin Date Effective End Date [facility] Commercial Insurance [id number] 2013 Unknown [place] Medicare Part B Commercial Insurance [id number] 2013 Unknown Family history Daughter Diagnosis Age At [...] status Unknown 03/26/[address]: 1153648 Former smoker quit 1979 03/26/2016 Number of children Unknown 3 07/10/[address]: 992458319 Never drinks alcohol 07/10/2012 Has the patient ever used illegal drugs? Unknown Has never used illegal drugs 07/10/2012 Allergies, Adverse Reactions, Alerts Substance Reaction Codes Entered Date Inactivated Date Status cymbalta RxNorm: 223929 07/14/2012 No Inactive Date Active Savella nausea RxNorm: 900420 07/14/2012 No Inactive Date Active Metanx nausea RxNorm: 564321 07/14/2012 No Inactive Date Active Gluten Unknown 07/10/2012 No Inactive Date Active Peanuts Unknown 07/10/2012 No Inactive Date Active Levaquin hives RxNorm: 67755 07/14/2012 No Inactive Date Active macrobid pruritis, hives, RxNorm: 743043 07/14/2012 No Inactive Date Active percocet pruritis RxNorm: 105713 07/14/2012 No Inactive Date Active PREDNISONE pruritis, RxNorm: 8640 07/14/2012 No Inactive Date Active ultram pruritis, hives RxNorm: 75523 06/11/2016 No Inactive Date Active GABAPENTIN nausea, Unknown 07/14/2012 No Inactive Date Active Past Medical History Illness Codes Condition Status Onset Date Resolved Date Essential (primary) hypertension ICD-9: 401.1 ICD-10: I10 Active 02/11/2018 Unknown Generalized anxiety disorder ICD-9: 300.00 ICD-10: F41.1 Active 11/21/2016 Unknown 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 ICD-10: E04.2 Active 02/20/2017 Unknown Other fatigue ICD-9: 780.79 ICD-10: R53.83 Active 12/15/2013 Unknown Slow transit constipation ICD-9: 564.01 ICD-10: K59.01 Active 08/06/2018 Unknown Encounter for screening mammogram for malignant neoplasm of breast ICD-9: V76.10 ICD-10: Z12.31 Active 07/09/2018 Unknown Essential (primary) hypertension ICD-9: 401.9 ICD-10: I10 Active 03/16/2014 Unknown Major depressive disorder, recurrent, moderate ICD-9: 296.32 ICD-10: F33.1 Active 11/21/2016 Unknown Encounter for immunization ICD-9: V03.82 ICD-10: [...] hypertension ICD-9: 401.1 ICD-10: I10 02/11/2018 Active Generalized anxiety disorder ICD-9: 300.00 ICD-10: F41.1 11/21/2016 Active 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 ICD-10: E04.2 02/20/2017 Active Other fatigue ICD-9: 780.79 ICD-10: R53.83 12/15/2013 Active Slow transit constipation ICD-9: 564.01 ICD-10: K59.01 08/06/2018 Active Encounter for screening mammogram for malignant neoplasm of breast ICD-9: V76.10 ICD-10: Z12.31 07/09/2018 Active Essential (primary) hypertension ICD-9: 401.9 ICD-10: I10 03/16/2014 Active Major depressive disorder, recurrent, moderate ICD-9: 296.32 ICD-10: F33.1 11/21/2016 Active Encounter for immunization ICD-9: V03.82 ICD-10: [...] Start Date Stop Date Status Fill Instructions Pristiq 50 mg tablet,extended release RxNorm: 182820 1 Tablet(s) PO BID 09/05/2018 08/30/2019 Active Glucocard Vital Sensor strips RxNorm: TEST TWO TIMES A DAY 03/06/2020 Active Request already responded to by other means (e.g. phone or fax) Vitamin B-12 1,000 mcg/mL injection solution RxNorm: 843284 INJECT 1 ML INTRAMUSCULARLY ONCE WEEKLY 08/29/2018 Active amlodipine 5 mg tablet RxNorm: 421837 1 Tablet(s) PO daily 11/19/2019 Active topiramate 100 mg tablet RxNorm: 366286 1/2 Tablet(s) PO BID 08/04/2019 Active [SAVINGS FOR UNINSURED PATIENTS -- BIN:[id number], PCN: ASPROD1, Group: [id number], ID# [id number], Process claim through [employer], for questions: . THIS IS NOT INSURANCE.] amlodipine 10 mg tablet RxNorm: 259608 1/2 Tablet(s) PO daily 08/06/2018 08/26/2018 Inactive Pristiq 50 mg tablet,extended release RxNorm: 969623 1 Tablet(s) PO BID 08/06/2018 09/04/2018 Inactive Voltaren 1 % topical gel RxNorm: 430458 APPLY 2 GRAMS TOPICALLY FOUR TIMES A DAY 07/24/2018 10/31/2018 Active Fish Oil 1,000 mg capsule RxNorm: 1 Capsule(s) PO TID 201707/02/2019 Active Valium 5 mg tablet RxNorm: 402528 1 Tablet(s) PO PRN as needed 07/08/2018 No Stop Date Active Vagifem 10 mcg vaginal tablet RxNorm: 772064 1 Tablet(s) VAG daily 07/08/2018 No Stop Date Active naproxen sodium 550 mg tablet RxNorm: 495403 Tablet(s) as needed TAKE 1 TABLET BY MOUTH TWO TIMES DAILY 07/08/20182018 Active - Ref: [id number] Pristiq 100 mg tablet,extended release RxNorm: 083053 1 Tablet(s) PO daily 07/08/2018 08/05/2018 Inactive Voltaren 1 % topical gel RxNorm: 827971 APPLY 2 GRAMS TOPICALLY FOUR TIMES A DAY 07/08/2018 07/23/2018 Inactive topiramate 100 mg tablet RxNorm: 824455 1 Tablet(s) PO BID 08/05/2018 Inactive [SAVINGS FOR UNINSURED PATIENTS -- BIN:[id number], PCN: ASPROD1, Group: HANK , ID# [id number], Process claim through [employer], for questions: . THIS IS NOT INSURANCE.] Valium 5 mg tablet RxNorm: 085005 1 Tablet(s) PO PRN as needed 06/24/2018 07/07/2018 Inactive folic acid 1 mg tablet RxNorm: 989542 TAKE ONE TABLET BY MOUTH EVERY DAY 05/27/2018 04/21/2019 Active Valium 5 mg tablet RxNorm: 523137 1 Tablet(s) PO PRN as needed 02/21/2018 No Stop Date Active Valium 5 mg tablet RxNorm: 447088 1 Tablet(s) PO PRN as needed 11/12/2017 02/20/2018 Inactive Synthroid 25 mcg tablet RxNorm: 140638 1 Tablet(s) PO daily 02/201811/11/2017 Inactive Synthroid 25 mcg tablet RxNorm: 823241 1 Tablet(s) PO daily 02/201802/10/2018 Inactive Nitro-Bid 2 % transdermal ointment RxNorm: 790977 APPLY TO AFFECTED AREA(S) TOPICALLY THREE TIMES A DAY NEEDED FOR RAYNAUDS SYMPTOMS OF FEET 08/26/2017 10/24/2017 Inactive Vitamin B-12 1,000 mcg/mL injection solution RxNorm: 143622 INJECT 1ML INTRAMUSCULARLY ONCE WEEKLY 08/23/2017 Inactive Request already responded to by other means (e.g. phone or fax) Vitamin B-12 1,000 mcg/mL injection solution RxNorm: 286414 Milliliter(s) INJECT 1ML INTRAMUSCULARLY ONCE WEEKLY 08/21/2017 08/22/2017 Inactive naproxen sodium 550 mg tablet RxNorm: 325467 TAKE 1 TABLET BY MOUTH TWO TIMES DAILY 08/09/2017 11/06/2017 Inactive - Ref: [id number] Combivent Respimat 20 mcg-100 mcg/actuation solution for inhalation RxNorm: 7688440 1-2 Puff(s) INH Q4 PRN 07/26/2017 No Stop Date Active Valium 5 mg tablet RxNorm: 953353 1 Tablet(s) PO PRN as needed 06/27/2017 11/11/2017 Inactive doxycycline hyclate 100 mg tablet RxNorm: 834050 1 Tablet(s) PO BID 06/24/2017 06/30/2017 Inactive azithromycin 250 mg tablet RxNorm: 970574 1 Tablet(s) PO UD 2 tabs on day #1, then 1 pill daily x 4 more days 05/22/2017 08/20/2017 Inactive hydrocodone 10 mg-chlorpheniramine 8 mg/5 mL oral susp extend.rel 12hr RxNorm: 7459894 5 PO as needed 05/10/20172017 Inactive Augmentin 875 mg-125 mg tablet RxNorm: 049009 1 Tablet(s) PO BID 05/10/2017 05/16/2017 Inactive folic acid 1 mg tablet RxNorm: 215309 TAKE ONE TABLET BY MOUTH EVERY DAY 05/09/2017 05/03/2018 Inactive Carafate 1 gram tablet RxNorm: 637581 TAKE ONE TABLET BY MOUTH FOUR TIMES A DAY 30 MINUTES BEFORE MEALS AND AT BEDTIME 03/18/2017 07/07/2018 Inactive scopolamine 1.5 mg transdermal patch (1 mg over 3 days) RxNorm: 830822 1 Patch TD Q72H use for sea sickness 02/20/201703/05 Inactive Pristiq 50 mg tablet,extended release RxNorm: 713613 1 Tablet(s) PO daily 01/15/2017 07/07/2018 Inactive Pristiq 50 mg tablet,extended release RxNorm: 780501 1 Tablet(s) PO BID 12/20/2016 01/14/2017 Inactive naproxen sodium 550 mg tablet RxNorm: 082086 Tablet(s) Take 1 tablet by mouth twice a day 11/14/2016 08/08/2017 Inactive OneTouch Delica Lancets 33 gauge RxNorm: TEST TWO TIMES A DAY 11/12/2016 04/10/2017 Inactive Phenergan VC-Codeine 6.25 mg-5 mg-10 mg/5 mL syrup RxNorm: 839869 5 Milliliter(s) PO Q6 as needed cough 09/06/20162016 Inactive Nitro-Bid 2 % transdermal ointment RxNorm: 999521 APPLY TO AFFECTED AREA(S) TOPICALLY THREE TIMES A DAY NEEDED FOR RAYNAUDS SYMPTOMS OF FEET 08/21/2016 10/19/2016 Inactive Voltaren 1 % topical gel RxNorm: 494902 APPLY 2 GRAMS TOPICALLY FOUR TIMES A DAY 08/21/2016 12/22/2016 Inactive Vitamin B-12 1,000 mcg/mL injection solution RxNorm: 278092 INJECT 1ML INTRAMUSCULARLY ONCE WEEKLY 08/21/2016 Inactive folic acid 1 mg tablet RxNorm: 517690 TAKE ONE TABLET BY MOUTH EVERY DAY 08/13/2016 04/09/2017 Inactive Flagyl 500 mg tablet RxNorm: 726957 1 Tablet(s) PO TID 201506/22/2016 Inactive Cholestyramine Light 4 gram oral powder RxNorm: 222745 1 packet PO PRN as needed 06/11/2016 No Stop Date Active Flexeril 10 mg tablet RxNorm: 767695 1 Tablet(s) PO as needed 02/19/2017 Inactive 1 hs Vagifem 10 mcg vaginal tablet RxNorm: 051692 1 Tablet(s) VAG BIW -TIW 06/11/2016 07/07/2018 Inactive Flagyl 500 mg tablet RxNorm: 023405 1 Tablet(s) PO TID 201506/10/2016 Inactive Lomotil 2.5 mg-0.025 mg tablet RxNorm: 6303007 1 Tablet(s) PO AC & HS as needed 04/24/2016 05/23/2016 Inactive Keflex 500 mg capsule RxNorm: 532510 1 Capsule(s) PO TID 201504/11/2016 Inactive Keflex 500 mg capsule RxNorm: 103244 1 Capsule(s) PO TID 201504/18/2016 Inactive Pristiq 50 mg tablet,extended release RxNorm: 676311 1 Tablet(s) PO QAM 03/30/2016 12/19/2016 Inactive amitriptyline 25 mg tablet RxNorm: 725965 1/2 Tablet(s) PO QHS x [address] pablo 03/30/2016 06/10/2016 Inactive potassium chloride 20 mEq/15 mL oral liquid RxNorm: 469137 TAKE 2 TABLESPOONS DAILY 03/23/2016 09/18/2016 Inactive Glucocard Vital Sensor strips RxNorm: TEST TWO TIMES A DAY 10/17/2017 Inactive Questran 4 gram oral powder RxNorm: 571008 1 dose PO daily 04/201602/14/2016 Inactive Questran 4 gram oral powder RxNorm: 077488 1 dose PO daily 04/201603/15/2016 Inactive Miralax 17 gram oral powder packet RxNorm: 794384 1 PO daily 02/08/2016 Inactive Miralax 17 gram oral powder packet RxNorm: 241061 1 PO daily 06/10/2016 Inactive Carafate 1 gram tablet RxNorm: 216587 1 Tablet(s) PO QID take 30 minutes before meals and at bedtime 01/23/20162015 Inactive Vitamin D2 50,000 unit capsule RxNorm: 020185 1 Capsule(s) PO QW 12/26/2015 03/24/2016 Inactive Tamiflu 75 mg capsule RxNorm: 636319 1 Capsule(s) PO daily 11/2111/21/2015 Inactive Tamiflu 75 mg capsule RxNorm: 354832 1 Capsule(s) PO daily 11/2112/01/2015 Inactive folic acid 1 mg tablet RxNorm: 503772 TAKE ONE TABLET BY MOUTH EVERY DAY 11/03/2015 07/29/2016 Inactive Keflex 500 mg capsule RxNorm: 355443 1 Capsule(s) PO TID 201511/11/2015 Inactive Augmentin 500 mg-125 mg tablet RxNorm: 273985 1 Tablet(s) PO TID 09/13/2015 09/22/2015 Inactive Zithromax Z-Juanpablo 250 mg tablet RxNorm: 712578 1 Tablet(s) PO 12/25/2015 Inactive OneTouch Delica Lancets 33 gauge RxNorm: 1 test Miscellaneous BID 06/21/2015 06/14/2016 Inactive Nitro-Bid 2 % transdermal ointment RxNorm: 949614 1 Application TD TID as needed raynauds symptoms of feet 06/01/201508/29 Inactive Vitamin B-12 1,000 mcg/mL injection solution RxNorm: 119363 INJECT 1ML INTRAMUSCULARLY ONCE WEEKLY 05/16/201503/2016 Inactive Voltaren 1 % topical gel RxNorm: 971614 2 Gram(s) TOP QID 05/1007/08/2015 Inactive potassium chloride 20 mEq/15 mL oral liquid RxNorm: 561604 TAKE 2 TABLESPOONS DAILY 04/22/2015 10/18/2015 Inactive naproxen sodium 550 mg tablet RxNorm: 820191 Tablet(s) Take 1 tablet by mouth twice a day 03/10/2015 06/01/2016 Inactive naproxen sodium 550 mg tablet RxNorm: 684844 Take 1 tablet by mouth twice a day 03/09/2015 11/15/2016 Inactive 2nd Attempt Pristiq 50 mg tablet,extended release RxNorm: 415531 1 Tablet(s) PO BID 03/09/2015 03/08/2015 Inactive naproxen sodium 550 mg tablet RxNorm: 795417 1 Tablet(s) PO BID 03/09/2015 03/08/2015 Inactive naproxen sodium 550 mg tablet RxNorm: 008129 Take 1 tablet by mouth twice a day 03/09/2015 03/09/2015 Inactive Pristiq 50 mg tablet,extended release RxNorm: 531891 Take 1 tablet twice a day 03/09/2015 03/29/2016 Inactive folic acid 1 mg tablet RxNorm: 741253 TAKE ONE TABLET BY MOUTH EVERY DAY 01/17/2015 11/02/2015 Inactive Vitamin B-12 1,000 mcg/mL injection solution RxNorm: 237362 INJECT 1 MLS DIRECTED ONCE WEEKLY 12/03/20142015 Inactive hydrocodone 10 mg-acetaminophen 325 mg tablet RxNorm: 050193 1 Tablet(s) PO Q6 PRN 11/22/2014 12/21/2014 Inactive [SAVINGS FOR NON-COVERED DRUGS -- BIN:395640, PCN: ASPROD1, Group: XXXXX, ID# [id number], Questions: . THIS IS NOT INSURANCE.] ceftriaxone 1 gram solution for injection RxNorm: 7183073 Inj 11/11/2014 11/11/2014 Inactive [SAVINGS FOR NON-COVERED DRUGS -- BIN:321872, PCN: ASPROD1, Group: XXXXX, ID# [id number], Questions: . THIS IS NOT INSURANCE.] Glucocard Vital Sensor strips RxNorm: 1 test Miscellaneous BID 10/27/2014 10/26/2014 Inactive DX code 790.29 Glucocard Vital Sensor strips RxNorm: 1 test Miscellaneous BID 10/27/2014 11/20/2015 Inactive DX code 790.29 [SAVINGS FOR UNINSURED PATIENTS -- BIN:431859, PCN: ASPROD1, Group: [id number], ID# [id number], Process claim through [employer], for questions: . THIS IS NOT INSURANCE.] topiramate 100 mg tablet RxNorm: 825444 2 Tablet(s) PO BID 04/27/2015 Inactive [SAVINGS FOR UNINSURED PATIENTS -- BIN:642508, PCN: ASPROD1, Group: [id number] , ID# [id number], Process claim through [employer], for questions: . THIS IS NOT INSURANCE.] Cholestyramine Susp Light 4 gram powder for susp in a packet RxNorm: 020797 packet PO PRN as needed 08/30/20142015 Inactive Nitro-Bid 2 % transdermal ointment RxNorm: 726495 1 Application TD TID as needed raynauds symptoms of feet 07/14/201410/11 Inactive Flonase 50 mcg/actuation nasal spray,suspension RxNorm: 243495 PLACE 2 SPRAYS IN EACH NOSTRIL DAILY 05/25/2014 08/22/2014 Inactive potassium chloride 20 mEq/15 mL oral liquid RxNorm: 947582 2 Tablespoon(s) PO daily 04/20/2014 04/21/2015 Inactive potassium chloride 10 % oral liquid RxNorm: 442294 2 Tablespoon(s) PO daily 04/20/2014 04/19/2014 Inactive potassium chloride 10 % oral liquid RxNorm: 053753 2 Tablespoon(s) PO daily 04/09/2014 04/19/2014 Inactive folic acid 1 mg tablet RxNorm: 727027 Tablet(s) PO TAKE ONE TABLET BY MOUTH EVERY DAY 02/15/2014 No Stop Date Active folic acid 1 mg tablet RxNorm: 531071 Tablet(s) PO TAKE ONE TABLET BY MOUTH EVERY DAY 02/15/2014 01/16/2015 Inactive folic acid 1 mg tablet RxNorm: 269826 1 Tablet(s) PO daily TAKE ONE TABLET BY MOUTH EVERY DAY 02/15/2014 02/14/2014 Inactive Flonase 50 mcg/actuation nasal spray,suspension RxNorm: 212710 1 [place] NASAL BID 01/12/2014 08/09/2014 Inactive topiramate 100 mg tablet RxNorm: 384990 1.5 Tablet(s) PO BID 08/09/2014 Inactive amoxicillin 500 mg capsule RxNorm: 648303 1 Capsule(s) PO TID 12/24/2013 12/30/2013 Inactive amoxicillin 500 mg capsule RxNorm: 280690 1 Capsule(s) PO TID 12/24/2013 12/23/2013 Inactive Pristiq 50 mg tablet,extended release RxNorm: 718114 1 Tablet(s) PO BID 12/01/2013 02/23/2015 Inactive Vitamin B-12 1,000 mcg/mL injection solution RxNorm: 839602 1 Milliliter(s) Inj QW 11/10/2013 11/09/2013 Inactive Vitamin B-12 1,000 mcg/mL injection solution RxNorm: 926645 1 Milliliter(s) Inj QW 11/10/2013 12/02/2014 Inactive Myrbetriq 25 mg tablet,extended release RxNorm: 8288523 1 Tablet(s) PO daily 10/20/2013 08/16/2014 Inactive fluconazole 150 mg tablet RxNorm: 730521 1 Tablet(s) PO daily 09/15/2013 09/19/2013 Inactive amoxicillin 875 mg-potassium clavulanate 125 mg tablet RxNorm: 484061 1 Tablet(s) PO BID 09/15/2013 09/24/2013 Inactive Pristiq 50 mg tablet,extended release RxNorm: 898407 1 Tablet(s) PO BID 07/30/2013 11/30/2013 Inactive Topamax 25 mg tablet RxNorm: 721371 4 Tablet(s) PO BID 201201/11/2014 Inactive vitamin B12 200mcg [place], Suspension RxNorm: 1 [place] PO daily 07/27/2013 12/25/2015 Inactive Flonase 50 mcg/actuation nasal spray,suspension RxNorm: 660875 2 [place] NASAL daily 06/09/2013 07/08/2013 Inactive Carafate 1 gram tablet RxNorm: 205575 1 Tablet(s) PO ac and hs 05/07/2013 05/06/2013 Inactive Carafate 1 gram tablet RxNorm: 190116 1 Tablet(s) PO ac and hs 05/07/2013 05/31/2014 Inactive potassium chloride 10 % Oral Liquid RxNorm: 676265 1 Tablespoon(s) PO daily 03/23/2013 04/08/2014 Inactive folic acid 1 mg tablet RxNorm: 252060 Tablet(s) PO TAKE ONE TABLET BY MOUTH EVERY DAY 01/29/2013 02/14/2014 Inactive naproxen sodium 550 mg tablet RxNorm: 587208 1 Tablet(s) PO BID 01/21/2013 10/26/2014 Inactive hydrocodone 5 mg-acetaminophen 500 mg tablet RxNorm: 918776 1 Tablet(s) PO Q8 PRN 12/25/2012 02/19/2017 Inactive folic acid 1 mg tablet RxNorm: 716206 1 Tablet(s) PO daily 01/28/2013 Inactive cyanocobalamin (vitamin B-12) 1,000 mcg/mL Injection RxNorm: 802035 1 Milliliter(s ) Inj 2 x month inject 1 mL every other week intramuscularly 11/03/2012 11/02/2012 Inactive please provide 25 gauge syringes as well. cyanocobalamin (vitamin B-12) 1,000 mcg/mL Injection RxNorm: 892003 Milliliter(s) Inj 11/03/2012 11/03/2012 Inactive cyanocobalamin (vitamin B-12) 1,000 mcg/mL Injection RxNorm: 443067 1 Milliliter(s ) Inj 2 x month inject 1 mL every other week intramuscularly 11/03/2012 12/25/2015 Inactive please provide 25 gauge syringes as well. cyanocobalamin (vitamin B-12) 1,000 mcg/mL Injection RxNorm: 073578 1 Milliliter(s ) Inj 10/20/2012 10/20/2012 Inactive Vitamin B-12 1,000 mcg/mL Injection RxNorm: 239222 1 Milliliter(s) Inj 09/11/2012 09/11/2012 Inactive Zithromax Z-Juanpablo 250 mg tablet RxNorm: 154856 Tablet(s) PO UD 12/24/2012 Inactive please give z juanpablo hydrochlorothiazide 25 mg tablet RxNorm: 211634 1/2 Tablet(s) PO daily 08/11/2012 No Stop Date Active Vitamin B-12 1,000 mcg/mL Injection RxNorm: 598854 Milliliter(s) Inj 08/11/2012 08/11/2012 Inactive Vitamin D2 50,000 unit capsule RxNorm: 691208 Capsule(s) PO one weekly for 8 weeks then resume her daily dosing 07/21/2012 07/20/2012 Inactive Vitamin B-12 1,000 mcg/mL Injection RxNorm: 229246 Milliliter(s) Inj 07/21/2012 07/21/2012 Inactive Vitamin D2 50,000 unit capsule RxNorm: 126646 Capsule(s) PO one weekly for 8 weeks then resume her daily dosing 07/21/2012 09/18/2012 Inactive Diflucan 150 mg tablet RxNorm: 610261 1 Tablet(s) PO daily 09/201107/12/2012 Inactive HyoMax-SR 0.375 mg tablet,extended release RxNorm: 3801234 Tablet(s) PO PRN No Start Date Active Maxalt-DIRECTOR OF LOSS PREVENTION 10 mg disintegrating tablet RxNorm: 991800 Tablet(s) PO PRN No Start Date Active Vitamin D3 2,000 unit tablet RxNorm: 495231 1 Tablet(s) PO daily No Start Date Active potassium chloride 20 mEq/15 mL oral liquid RxNorm: 401097 2 Tablespoon(s) PO daily No Start Date Active Zetia 10 mg tablet RxNorm: 739927 1 Tablet(s) PO QPM No Start Date Active metoprolol tartrate 50 mg tablet RxNorm: 980843 1 Tablet(s) PO BID No Start Date Active biotin 2,500 mcg tablet RxNorm: 321071 1 Tablet(s) PO daily No Start Date Active Zyrtec 10 mg tablet RxNorm: 4250956 1 Tablet(s) PO PRN No Start Date Active Praluent Pen 75 mg/mL subcutaneous pen injector RxNorm: 2850077 1 Milliliter(s) SQ Q 2 weeks No Start Date Active Fioricet oral RxNorm: 702833 oral No Start Date Active Cholestyramine Susp Light 4 gram Packet RxNorm: 055985 packet PO PRN No Start Date 08/29/2014 Inactive Pristiq 50 mg tablet,extended release RxNorm: 626673 1 Tablet(s) PO daily No Start Date 07/29/2013 Inactive Topamax 25 mg tablet RxNorm: 094188 3 Tablet(s) PO BID No Start Date 07/29/2013 Inactive pantoprazole 40 mg tablet,delayed release RxNorm: 675276 1 Tablet(s) PO daily No Start Date 07/07/2018 Inactive Tricor 145 mg tablet RxNorm: 735527 1 Tablet(s) PO daily No Start Date 12/24/2012 Inactive Zithromax Z-Juanpablo 250 mg tablet RxNorm: 050232 Tablet(s) PO UD No Start Date 08/11/2012 Inactive Fish Oil 1,000 mg capsule RxNorm: 1 Capsule(s) PO BID No Start Date 07/07/2018 Inactive Vitamin D3 2,000 unit capsule RxNorm: 772107 1 Capsule(s) PO daily No Start Date 12/25/2015 Inactive Vagifem 10 mcg vaginal tablet RxNorm: 165554 1-2 Tablet(s) VAG weekly No Start Date 06/10/2016 Inactive Gelnique 10 % (100 mg/gram) transdermal gel packet RxNorm: 132696 3% gel 3 pumps TD daily No Start Date 08/09/2014 Inactive Vitamin D3 5,000 unit tablet RxNorm: 979853 1 Tablet(s) PO daily No Start Date 06/10/2016 Inactive hydrochlorothiazide 25 mg tablet RxNorm: 401817 1 Tablet(s) PO daily No Start Date 08/10/2012 Inactive Flexeril 10 mg tablet RxNorm: 514839 Tablet(s) PO No Start Date 06/10/2016 Inactive 1 q am1/2 with dinner1 hs Valium 5 mg tablet RxNorm: 453784 1 Tablet(s) PO PRN No Start Date 06/26/2017 Inactive amlodipine 5 mg tablet RxNorm: 632236 1 Tablet(s) PO daily No Start Date 03/15/2014 Inactive Phenergan VC-Codeine 6.25 mg-5 mg-10 mg/5 mL syrup RxNorm: 232045 5 Milliliter(s) PO Q6 as needed cough No Start Date 2015 Inactive Zithromax Z-Juanpablo 250 mg tablet RxNorm: 764340 Tablet(s) PO UD No Start Date 07/30/2013 Inactive naproxen 500 mg tablet RxNorm: 769362 Tablet(s) PO BID PRN No Start Date 01/20/2013 Inactive Lovaza 1 gram capsule RxNorm: 762968 2 Capsule(s) PO BID No Start Date 03/04/2018 Inactive hydrocodone 5 mg-acetaminophen 500 mg tablet RxNorm: 012917 1 Tablet(s) PO Q8 PRN No Start Date 12/24/2012 Inactive biotin 1000 mg RxNorm : 2 PO No Start Date 06/11/2016 Inactive aspirin 81 mg tablet,delayed release RxNorm: 507363 1 Tablet(s) PO daily No Start Date 07/07/2018 Inactive Lomotil 2.5 mg-0.025 mg tablet RxNorm: 5038853 Tablet(s) PO PRN No Start Date 04/23/2016 Inactive Ditropan XL 5 mg tablet,extended release RxNorm: 513862 1 Tablet(s) PO daily No Start Date 06/09/2018 Inactive Antara 130 mg capsule RxNorm: 434370 1 Capsule(s) PO daily No Start Date 07/07/2018 Inactive folic acid 1 mg tablet RxNorm: 536512 1 Tablet(s) PO daily No Start Date 11/02/2012 Inactive amlodipine 10 mg tablet RxNorm: 058905 1 Tablet(s) PO daily No Start Date 08/05/2018 Inactive amitriptyline 25 mg tablet RxNorm: 850046 1 Tablet(s) PO QHS dr fonseca No Start Date 03/29/2016 Inactive Gelnique transdermal RxNorm: 378532 transdermal No Start Date 03/25/2016 Inactive Toprol XL 50 mg tablet,extended release RxNorm: 616130 1 Tablet(s) PO daily No Start Date 04/08/2017 Inactive potassium chloride 10 % Oral Liquid RxNorm: 174550 1 Tablespoon(s) PO daily No Start Date 03/22/2013 Inactive Lipitor 10 mg tablet RxNorm: 285828 1 Tablet(s) PO QHS No Start Date 12/24/2012 Inactive diltiazem 120 mg tablet RxNorm: 067115 1 Tablet(s) PO daily No Start Date 08/10/2012 Inactive Combivent Respimat 20 mcg-100 mcg/actuation solution for inhalation RxNorm: 6894350 1-2 Puff(s) INH Q4 PRN No Start Date 07/25/2017 Inactive Medication Administered Medication Codes Instructions Start Date Status ceftriaxone 1 gram solution for injection RxNorm: 5810978 11/11/2014 No longer Active cyanocobalamin (vitamin B-12) 1,000 mcg/mL Injection RxNorm : 074193 Milliliter 11/03/2012 No longer Active cyanocobalamin (vitamin B-12) 1,000 mcg/mL Injection RxNorm : 286699 1Milliliter 10/20/2012 No longer Active Vitamin B-12 1,000 mcg/mL Injection RxNorm: 732434 1Milliliter 09/11/2012 No longer Active Vitamin B-12 1,000 mcg/mL Injection RxNorm: 158373 Milliliter 08/11/2012 No longer Active Vitamin B-12 1,000 mcg/mL Injection RxNorm: 013663 Milliliter 07/21/2012 No longer Active Immunizations Vaccine Codes Date Status Influenza CVX: 141 06/05/2018 completed Influenza CVX: 141 06/19/2017 completed Tetanus, Diptheria, Pertussis CVX: 113 completed Tetanus/Diptheria CVX: 113 03/30/2015 completed Influenza CVX: 141 05/12/2012 completed Pneumococcal CVX: 33 06/11/2011 completed Assessments Condition Codes Effective Dates Generalized anxiety disorder ICD-10: F41.1 ICD-9: 300.00 08/06/2018 Other fatigue ICD-10: R53.83 ICD-9: 780.79 08/06/2018 Nontoxic multinodular goiter ICD-10: E04.2 ICD-9: 241.1 08/06/2018 Slow transit constipation ICD-10: K59.01 ICD-9: 564.01 08/06/2018 Essential (primary) hypertension ICD-10: I10 ICD-9: 401.1 08/06/2018 Encounter for screening mammogram for malignant neoplasm of breast ICD-10: Z12.31 ICD-9: V76.10 07/09/2018 Major depressive disorder, recurrent, moderate ICD-10: F33.1 ICD-9: 296.32 07/08/2018 Essential (primary) hypertension ICD-10: I10 ICD-9: 401.9 [...] allergic rhinitis ICD-10: J30.2 ICD-9: 477.9 11/02/2015 Acute laryngopharyngitis ICD-10: J06.0 ICD-9: 465.0 09/13/2015 Urgency of urination ICD-10: R39.15 ICD-9: 788.63 09/13/2015 Dysuria ICD-10: R30.0 ICD-9: 788.1 09/08/2015 [...] 250.00 2014 Varicose vein ICD-9: 454.9 01/17/2015 Nausea ICD-9: 787.02 11/22/2014 HEADACHE ICD-9: 784.0 11/22/2014 Neck pain ICD-9: 723.1 11/22/2014 Vision changes ICD-9: 368.9 11/22/2014 Meningitis exposure ICD-9: V01.89 2014 Elevated blood sugar ICD-9: 790.29 2014 Costochondritis ICD-9: 733.6 10/15/2014 Vitamin D deficiency ICD-9: 268.9 2014 ALLERGIC RHINITIS ICD-9: 477.9 2014 Diarrhea ICD-9: 787.91 09/30/2014 Raynauds disease [...] Visit Reason For Visit Effective Dates Notes constipation 08/06/2018 depression 07/08/2018 hypertension 02/11/2018 hypertension [...] Code Item Item Code Result Date Hepatic Xhe207 ALBUMIN 4.5 g/dL 08/11/2018 Hepatic Lhj619 TPRO 7.3 g/dL 08/11/2018 Hepatic Gfv501 GLOB 2.8 g/dL 08/11/2018 Hepatic Hzz821 A/G Ratio 1.6 Ratio 08/11/2018 Hepatic Htn539 ALK PHOS 89 U/L 08/11/2018 Hepatic Vsh262 ALT(SGPT) 31 U/L 08/11/2018 Hepatic Ybk006 AST(SGOT) 20 U/L 08/11/2018 Hepatic Qwi799 BILI T 0.4 mg/dL 08/11/2018 Hepatic Iyv499 BILI D 0.1 mg/dL 08/11/2018 Hepatic Enz959 BILI I 0.3 mg/dL 08/11/2018 Lipid Ord30 [...] Ord30 C/HDL 3.7 Ratio 05/01/2018 Comp Metabolic Nnu771 NA 140 mEq/L 05/01/2018 Comp Metabolic Mmg893 K 4.1 mEq/L 05/01/2018 Comp Metabolic Udt866 CL 107 mEq/L 05/01/2018 Comp Metabolic Yfy740 CO2 25.0 mEq/L 05/01/2018 Comp Metabolic Lfw335 ANION GAP 12 05/01/2018 Comp Metabolic Rul631 GLUCOSE 98 mg/dL 05/01/2018 Comp Metabolic Cjc566 Creat 0.7 mg/dL 05/01/2018 Comp Metabolic Wje983 eGFR 96 ml/min/1.73m2 05/01/2018 Comp Metabolic Yjr242 BUN 14 mg/dL 05/01/2018 Comp Metabolic Yqt310 B/C Ratio 20.9 Ratio 05/01/2018 Comp Metabolic Asu852 CALCIUM 9.5 mg/dL 05/01/2018 Comp Metabolic Blf317 ALK PHOS 74 U/L 05/01/2018 Comp Metabolic Koc586 AST(SGOT) 19 U/L 05/01/2018 Comp Metabolic Dkj025 ALT(SGPT) 29 U/L 05/01/2018 Comp Metabolic Rxs765 BILI T 0.3 mg/dL 05/01/2018 Comp Metabolic Ict745 ALBUMIN 4.3 g/dL 05/01/2018 Comp Metabolic Nyu795 TPRO 6.7 g/dL 05/01/2018 Comp Metabolic Uot697 GLOB 2.4 g/dL 05/01/2018 Comp Metabolic Olk421 A/G Ratio 1.8 Ratio 05/01/2018 Comp Metabolic Ixl756 Osmo 280 mOsmo 05/01/2018 Free T4 Etf333 FREE T4 0.95 ng/dL 02/11/2018 Tsh Ord6 TSH (3rd IS) 2.16 uIU/mL 02/11/2018 Free T4 Fwy591 FREE T4 0.81 ng/dL 11/12/2017 Tsh Ord6 TSH (3rd IS) 1.66 uIU/mL 11/12/2017 Tsh Ord6 hTSH II 1.45 uIU/mL 08/20/2017 Free T4 Fik458 FREE T4 0.80 ng/dL 08/20/2017 Hepatic Bcc631 ALBUMIN 4.4 g/dL 08/20/2017 Hepatic Bzm034 TPRO 6.6 g/dL 08/20/2017 Hepatic Wyb299 GLOB 2.2 g/dL 08/20/2017 Hepatic Biy261 A/G Ratio 2.0 Ratio 08/20/2017 Hepatic Dym750 ALK PHOS 50 U/L 08/20/2017 Hepatic Syt973 ALT(SGPT) 20 U/L 08/20/2017 Hepatic Ipc547 AST(SGOT) 20 U/L 08/20/2017 Hepatic Ilt582 BILI T 0.3 mg/dL 08/20/2017 Hepatic Pai237 BILI D 0.1 mg/dL 08/20/2017 Hepatic Kgo542 BILI I 0.2 mg/dL 08/20/2017 Lipid Ord30 [...] 91.6 fl 02/21/2017 Cbc With Differential Ord2 Forest% 6.9 % 02/21/2017 Cbc With Differential Ord2 MCH 30.3 pg 02/21/2017 Cbc With Differential Ord2 Eos% 2.6 % 02/21/2017 Cbc With Differential Ord2 MCHC 33.0 pg 02/21/2017 Cbc With Differential Ord2 Baso% 0.3 % 02/21/2017 Cbc With Differential Ord2 PLT 296 K/ul 02/21/2017 Cbc With Differential Ord2 Neut ABS# 4.74 K/ul 02/21/2017 Cbc With Differential Ord2 RDW 13.9 % 02/21/2017 Cbc With Differential Ord2 Lymph ABS# 1.82 K/ul 02/21/2017 Cbc With Differential Ord2 Forest ABS# 0.5 K/ul 02/21/2017 Cbc With Differential Ord2 Eos ABS# 0.2 K/ul 02/21/2017 Cbc With Differential Ord2 Baso ABS# 0.0 K/ul 02/21/2017 %Hba1C Jvx694 % HbA1c 70872-4 5.8 % 02/21/2017 %Hba1C Agv460 Gluc Ave 120 mg/dL 02/21/2017 Tsh Ord6 hTSH II 1.90 uIU/mL 02/21/2017 Vitamin D 25 Oh Fow5299 VITAMIN D, 25 HYDROXY 42.82 ng/mL Comp Metabolic Dli854 NA 141 mEq/L 02/21/2017 Comp Metabolic Swv515 K 4.1 mEq/L 02/21/2017 Comp Metabolic Nei884 CL 107 mEq/L 02/21/2017 Comp Metabolic Tur549 CO2 25.0 mEq/L 02/21/2017 Comp Metabolic Jbh212 ANION GAP 13 02/21/2017 Comp Metabolic Tju479 GLUCOSE 87 mg/dL 02/21/2017 Comp Metabolic Ihr300 Creat 0.8 mg/dL 02/21/2017 Comp Metabolic Ivg170 eGFR 80 ml/min/1.73m2 02/21/2017 Comp Metabolic Cvw013 BUN 20 mg/dL 02/21/2017 Comp Metabolic Gwf305 B/C Ratio 25.3 Ratio 02/21/2017 Comp Metabolic Cdu729 CALCIUM 9.5 mg/dL 02/21/2017 Comp Metabolic Vla686 ALK PHOS 61 U/L 02/21/2017 Comp Metabolic Luy104 AST(SGOT) 16 U/L 02/21/2017 Comp Metabolic Vas942 ALT(SGPT) 19 U/L 02/21/2017 Comp Metabolic Xpp836 BILI T 0.3 mg/dL 02/21/2017 Comp Metabolic Auv538 ALBUMIN 4.4 g/dL 02/21/2017 Comp Metabolic Bcy803 TPRO 7.0 g/dL 02/21/2017 Comp Metabolic Ygt980 GLOB 2.6 g/dL 02/21/2017 Comp Metabolic Tna254 A/G Ratio 1.7 Ratio 02/21/2017 Comp Metabolic Ffv856 Osmo 283 mOsmo 02/21/2017 Lipid Ord30 CHOL 185 mg/dL 02/21/2017 Lipid Ord30 HDL 74.0 mg/dl 02/21/2017 Lipid Ord30 TRIG 148 mg/dL 02/21/2017 Lipid Ord30 LDL 81 mg/dL 02/21/2017 Lipid Ord30 C/HDL 2.5 Ratio 02/21/2017 Hepatic Lcy736 ALBUMIN 4.9 g/dL 08/21/2016 Hepatic Mbc308 TPRO 7.3 g/dL 08/21/2016 Hepatic Ddy617 GLOB 2.5 g/dL 08/21/2016 Hepatic Zhx779 A/G Ratio 2.0 Ratio 08/21/2016 Hepatic Hdj658 ALK PHOS 76 U/L 08/21/2016 Hepatic Bps369 ALT(SGPT) 29 U/L 08/21/2016 Hepatic Htx484 AST(SGOT) 22 U/L 08/21/2016 Hepatic Ysk523 BILI T 0.4 mg/dL 08/21/2016 Hepatic Oac559 BILI D 0.1 mg/dL 08/21/2016 Hepatic Hah626 BILI I 0.3 mg/dL 08/21/2016 Lipid Ord30 CHOL 302 mg/dL 08/21/2016 Lipid Ord30 HDL 69.0 mg/dl 08/21/2016 Lipid Ord30 TRIG 223 mg/dL 08/21/2016 Lipid Ord30 LDL 188 mg/dL 08/21/2016 Lipid Ord30 C/HDL 4.4 Ratio 08/21/2016 Lipase Fcp484 LIPASE 14 U/L 06/04/2016 Cbc With Differential Ord2 WBC 6.11 K/ul 06/04/2016 Cbc With Differential Ord2 RBC 4.44 M/ul 06/04/2016 Cbc With Differential Ord2 HGB 13.3 g/dl 06/04/2016 Cbc With Differential Ord2 Neut% 67.0 % 06/04/2016 Cbc With Differential Ord2 HCT 40.7 % 06/04/2016 Cbc With Differential Ord2 MCV 91.7 fl 06/04/2016 Cbc With Differential Ord2 Lymph% 24.5 % 06/04/2016 Cbc With Differential Ord2 MCH 30.0 pg 06/04/2016 Cbc With Differential Ord2 Forest% 6.5 % 06/04/2016 Cbc With Differential Ord2 [...] 1.50 K/ul 06/04/2016 Cbc With Differential Ord2 [place] ABS# 0.4 K/ul 06/04/2016 Cbc With Differential Ord2 Eos ABS# 0.1 K/ul 06/04/2016 Cbc With Differential Ord2 Baso ABS# 0.0 K/ul 06/04/2016 Comp Metabolic Unu984 NA 135 mEq/L 06/04/2016 Comp Metabolic Rkn711 K 3.8 mEq/L 06/04/2016 Comp Metabolic Rfu271 CL 101 mEq/L 06/04/2016 Comp Metabolic Cpk831 CO2 26.0 mEq/L 06/04/2016 Comp Metabolic Uin691 ANION GAP 12 06/04/2016 Comp Metabolic Hry719 GLUCOSE 91 mg/dL 06/04/2016 Comp Metabolic Oae089 Creat 0.8 mg/dL 06/04/2016 Comp Metabolic Mgg840 eGFR 74 ml/min/1.73m2 06/04/2016 Comp Metabolic Zfo260 BUN 16 mg/dL 06/04/2016 Comp Metabolic Vez327 B/C Ratio 19.0 Ratio 06/04/2016 Comp Metabolic Ics372 CALCIUM 10.0 mg/dL 06/04/2016 Comp Metabolic Yee873 ALK PHOS 76 U/L 06/04/2016 Comp Metabolic Yws400 AST(SGOT) 20 U/L 06/04/2016 Comp Metabolic Hzo052 ALT(SGPT) 24 U/L 06/04/2016 Comp Metabolic Ral942 BILI T 0.3 mg/dL 06/04/2016 Comp Metabolic Rzb471 ALBUMIN 4.6 g/dL 06/04/2016 Comp Metabolic Bwq443 TPRO 6.9 g/dL 06/04/2016 Comp Metabolic Grc816 GLOB 2.3 g/dL 06/04/2016 Comp Metabolic Iwh412 A/G Ratio 2.0 Ratio 06/04/2016 Comp Metabolic Gnd976 Osmo 271 mOsmo 06/04/2016 Amylase Ord34 AMYLASE 31 U/L 06/04/2016 Hepatic Tlu230 ALBUMIN 4.3 g/dL 2016 Hepatic Dce838 TPRO 6.7 g/dL 2016 Hepatic Ifn746 GLOB 2.4 g/dL 2016 Hepatic Orl753 A/G Ratio 1.8 Ratio 2016 Hepatic Fwl685 ALK PHOS 50 U/L 2016 Hepatic Fhk856 ALT(SGPT) 20 U/L 2016 Hepatic Pfc530 AST(SGOT) 18 U/L 2016 Hepatic Lkg297 BILI T 0.4 mg/dL 2016 Hepatic Bev647 BILI D 0.1 mg/dL 2016 Hepatic Xdc485 BILI I 0.3 mg/dL 2016 Lipid Ord30 CHOL 245 mg/dL 2016 Lipid Ord30 HDL 62.0 mg/dl 2016 Lipid Ord30 TRIG 140 mg/dL 2016 Lipid Ord30 LDL 155 mg/dL 2016 Lipid Ord30 C/HDL 4.0 Ratio 2016 Urine Culture Ucult Preliminary No Growth Day 1 09/15/2015 Urine Culture Ucult Complete No Growth Day 2 09/15/2015 Magnesium Ord90 Mag 1.9 mg/dL 09/07/2015 Comp Metabolic Qaa854 NA 139 mEq/L 09/07/2015 Comp Metabolic Xuc675 K 4.4 mEq/L 09/07/2015 Comp Metabolic Owd298 CL 107 mEq/L 09/07/2015 Comp Metabolic Xic795 CO2 24.0 mEq/L 09/07/2015 Comp Metabolic Oru282 ANION GAP 12 09/07/2015 Comp Metabolic Uxd708 GLUCOSE 91 mg/dL 09/07/2015 Comp Metabolic Sml180 Creat 1.0 mg/dL 09/07/2015 Comp Metabolic Vra247 eGFR 64 ml/min/1.73m2 09/07/2015 Comp Metabolic Wml759 BUN 31 mg/dL 09/07/2015 Comp Metabolic Bki547 B/C Ratio 32.3 Ratio 09/07/2015 Comp Metabolic Vrv745 CALCIUM 9.7 mg/dL 09/07/2015 Comp Metabolic Tok921 ALK PHOS 56 U/L 09/07/2015 Comp Metabolic Dhw000 AST(SGOT) 29 U/L 09/07/2015 Comp Metabolic Dqm336 ALT(SGPT) 34 U/L 09/07/2015 Comp Metabolic Gqz693 BILI T 0.3 mg/dL 09/07/2015 Comp Metabolic Hzk403 ALBUMIN 4.6 g/dL 09/07/2015 Comp Metabolic Ipi739 TPRO 7.0 g/dL 09/07/2015 Comp Metabolic Xgj303 GLOB 2.4 g/dL 09/07/2015 Comp Metabolic Shh670 A/G Ratio 1.9 Ratio 09/07/2015 Comp Metabolic Dkn353 Osmo 284 mOsmo 09/07/2015 Bili D Ord93 BILI D 0.1 mg/dL 09/07/2015 Bili D Ord93 BILI I 0.2 mg/dL 09/07/2015 Lipid Ord30 CHOL 243 mg/dL 09/07/2015 Lipid Ord30 HDL 75.0 mg/dl 09/07/2015 Lipid Ord30 TRIG 161 mg/dL 09/07/2015 Lipid Ord30 LDL 136 mg/dL 09/07/2015 Lipid Ord30 C/HDL 3.2 Ratio 09/07/2015 Tsh Ord6 hTSH II 2.53 uIU/mL 06/13/2015 Comp Metabolic Zqq649 NA 138 mEq/L 06/13/2015 Comp Metabolic Tid929 K 4.0 mEq/L 06/13/2015 Comp Metabolic Eru382 CL 104 mEq/L 06/13/2015 Comp Metabolic Kal750 CO2 26.0 mEq/L 06/13/2015 Comp Metabolic Ket044 ANION GAP 12 06/13/2015 Comp Metabolic Wps838 GLUCOSE 86 mg/dL 06/13/2015 Comp Metabolic Cai727 Creat 0.9 mg/dL 06/13/2015 Comp Metabolic Xzt907 eGFR 71 ml/min/1.73m2 06/13/2015 Comp Metabolic Jyw382 BUN 18 mg/dL 06/13/2015 Comp Metabolic Sws741 B/C Ratio 20.5 Ratio 06/13/2015 Comp Metabolic Knz547 CALCIUM 10.1 mg/dL 06/13/2015 Comp Metabolic Kpc651 ALK PHOS 52 U/L 06/13/2015 Comp Metabolic Mbr461 AST(SGOT) 18 U/L 06/13/2015 Comp Metabolic Tjr318 ALT(SGPT) 21 U/L 06/13/2015 Comp Metabolic Lqb916 BILI T 0.3 mg/dL 06/13/2015 Comp Metabolic Tya046 ALBUMIN 4.7 g/dL 06/13/2015 Comp Metabolic Tzr108 TPRO 6.9 g/dL 06/13/2015 Comp Metabolic Pqv420 GLOB 2.2 g/dL 06/13/2015 Comp Metabolic Vdz092 A/G Ratio 2.1 Ratio 06/13/2015 Comp Metabolic Hqj676 Osmo 277 mOsmo 06/13/2015 %Hba1C Lma738 % HbA1c 36154-7 5.7 % 06/13/2015 %Hba1C Bdd472 Gluc Ave 117 mg/dL 06/13/2015 Cbc With [...] 14.7 % 06/13/2015 Vitamin D 25 Oh Pcr3476 VITAMIN D, 25 HYDROXY 41.85 ng/mL Cbc [...] Ord2 RDW 14.5 % 04/18/2015 Comp Metabolic Uiw862 NA 137 mEq/L 04/18/2015 Comp Metabolic Rrp458 K 4.0 mEq/L 04/18/2015 Comp Metabolic Sps059 CL 105 mEq/L 04/18/2015 Comp Metabolic Aqz033 CO2 23.0 mEq/L 04/18/2015 Comp Metabolic Pvf733 ANION GAP 13 04/18/2015 Comp Metabolic Bit745 GLUCOSE 73 mg/dL 04/18/2015 Comp Metabolic Yre903 Creat 0.9 mg/dL 04/18/2015 Comp Metabolic Hfj111 eGFR 72 ml/min/1.73m2 04/18/2015 Comp Metabolic Fje948 BUN 17 mg/dL 04/18/2015 Comp Metabolic Dnd943 B/C Ratio 19.5 Ratio 04/18/2015 Comp Metabolic Lks522 CALCIUM 9.7 mg/dL 04/18/2015 Comp Metabolic Uvc491 ALK PHOS 55 U/L 04/18/2015 Comp Metabolic Klz273 AST(SGOT) 28 U/L 04/18/2015 Comp Metabolic Gda267 ALT(SGPT) 27 U/L 04/18/2015 Comp Metabolic Brn699 BILI T 0.3 mg/dL 04/18/2015 Comp Metabolic Cyt585 ALBUMIN 4.5 g/dL 04/18/2015 Comp Metabolic Ejo750 TPRO 7.0 g/dL 04/18/2015 Comp Metabolic Tcs409 GLOB 2.5 g/dL 04/18/2015 Comp Metabolic Hip863 A/G Ratio 1.8 Ratio 04/18/2015 Comp Metabolic Lxm354 Osmo 274 mOsmo 04/18/2015 Cbc With Differential [...] Ord2 RDW 15.0 % 03/22/2015 Comp Metabolic Hmo494 NA 136 mEq/L 03/22/2015 Comp Metabolic Kgy022 K 4.1 mEq/L 03/22/2015 Comp Metabolic Zpa979 CL 102 mEq/L 03/22/2015 Comp Metabolic Qyr851 CO2 26.0 mEq/L 03/22/2015 Comp Metabolic Ncf528 ANION GAP 12 03/22/2015 Comp Metabolic Aje742 GLUCOSE 82 mg/dL 03/22/2015 Comp Metabolic Hbq486 Creat 0.9 mg/dL 03/22/2015 Comp Metabolic Ptc465 eGFR 69 ml/min/1.73m2 03/22/2015 Comp Metabolic Ggf642 BUN 30 mg/dL 03/22/2015 Comp Metabolic Nzb638 B/C Ratio 33.3 Ratio 03/22/2015 Comp Metabolic Nfy935 CALCIUM 10.3 mg/dL 03/22/2015 Comp Metabolic Xqt160 ALK PHOS 56 U/L 03/22/2015 Comp Metabolic Bqj920 AST(SGOT) 17 U/L 03/22/2015 Comp Metabolic Bly567 ALT(SGPT) 17 U/L 03/22/2015 Comp Metabolic Lig513 BILI T 0.3 mg/dL 03/22/2015 Comp Metabolic Xrd133 ALBUMIN 4.7 g/dL 03/22/2015 Comp Metabolic Ixb495 TPRO 7.2 g/dL 03/22/2015 Comp Metabolic Hjk500 GLOB 2.5 g/dL 03/22/2015 Comp Metabolic Dfj780 A/G Ratio 1.9 Ratio 03/22/2015 Comp Metabolic Glm339 Osmo 277 mOsmo 03/22/2015 FREE T4 3836030 FREE T4 1.24 NG/DL 10/18/2014 CHEM 14 0147424 AST 14 U/L 10/15/2014 CHEM 14 6112118 ALT 15 IU/L 10/15/2014 CHEM 14 1699701 BUN 23 MG/DL 10/15/2014 CHEM 14 0598937 ALBUMIN 4.8 GM/DL 10/15/2014 CHEM 14 7799293 CHLORIDE 105 MMOL/L 10/15/2014 CHEM 14 2023291 BILI TOT 0.3 MG/DL 10/15/2014 CHEM 14 0323608 ALK PHOS 60 U/L 10/15/2014 CHEM 14 4656846 SODIUM 140 MMOL/L 10/15/2014 CHEM 14 4149489 CREATININE 0.89 MG/DL 10/15/2014 CHEM 14 7024188 CALCIUM 10.0 MG/DL 10/15/2014 CHEM 14 3068486 POTASSIUM 3.7 MMOL/L 10/15/2014 CHEM 14 2570907 PROT TOT 7.2 GM/DL 10/15/2014 CHEM 14 2858308 GLUCOSE 97 MG/DL 10/15/2014 CHEM 14 7812506 BICARB 25 MMOL/L 10/15/2014 CHEM 14 4055151 ANION GAP 10 MEQ/L 10/15/2014 CBC 7672647 WBC 6.7 10e9/L 10/15/2014 CBC 0535286 RBC 4.49 10e12/L 10/15/2014 CBC 4404336 HGB 13.4 g/dL 10/15/2014 CBC 9678289 HCT DET 40.2 % 10/15/2014 CBC 1057527 MCV 89.5 fL 10/15/2014 CBC 9649285 MCH 29.8 pg 10/15/2014 CBC 3682521 MCHC 33.3 g/dL 10/15/2014 CBC 0284864 PLT 311 10e9/L 10/15/2014 CBC 1621090 MPV 10.7 fL 10/15/2014 CBC 8310558 BESSY % 63.6 % 10/15/2014 CBC 7714953 LY % 26.7 % 10/15/2014 CBC 5430072 MON % 6.6 % 10/15/2014 CBC 7787710 EOS % 2.8 % 10/15/2014 CBC 2682826 BASO % 0.3 % 10/15/2014 CBC 6399907 RDW 13.4 % 10/15/2014 CBC 3768622 ABS BESSY 4.26 10e9/L 10/15/2014 CBC 3577718 ABS LYMPH 1.79 10e9/L 10/15/2014 CBC 5493901 ABS MONO 0.44 10e9/L 10/15/2014 CBC 6401948 ABS EOS 0.19 10e9/L 10/15/2014 CBC 6668218 ABS BASO 0.02 10e9/L 10/15/2014 CBC 7432403 RDW-SD 43.2 fL 10/15/2014 A1C HPLC 8626330 A1C HPLC 25166-4 5.7 % 10/15/2014 TSH 3215979 TSH 4.083 uIU/ML 10/15/2014 GFR CALC 0214126 GFR AA >60 ML/MIN 10/15/2014 GFR CALC 8741465 GFR NON-AA >60 ML/MIN 10/15/2014 VIT D TOTL 7344588 VIT D TOTL 36 NG/ML 10/15/2014 GFR CALC 9172993 GFR AA >60 ML/MIN 06/23/2014 GFR CALC 8381892 GFR NON-AA >60 ML/MIN 06/23/2014 CHEM 14 9570996 AST 21 U/L 06/23/2014 CHEM 14 3148299 ALT 24 IU/L 06/23/2014 CHEM 14 5456507 BUN 18 MG/DL 06/23/2014 CHEM 14 1603097 ALBUMIN 4.7 GM/DL 06/23/2014 CHEM 14 8612529 CHLORIDE 109 MMOL/L 06/23/2014 CHEM 14 4388829 BILI TOT 0.3 MG/DL 06/23/2014 CHEM 14 1954232 ALK PHOS 53 U/L 06/23/2014 CHEM 14 4720374 SODIUM 140 MMOL/L 06/23/2014 CHEM 14 4470299 CREATININE 0.86 MG/DL 06/23/2014 CHEM 14 7837646 CALCIUM 10.2 MG/DL 06/23/2014 CHEM 14 6106237 POTASSIUM 3.9 MMOL/L 06/23/2014 CHEM 14 8119064 PROT TOT 6.9 GM/DL 06/23/2014 CHEM 14 9861699 GLUCOSE 87 MG/DL 06/23/2014 CHEM 14 8685381 BICARB 24 MMOL/L 06/23/2014 CHEM 14 5214093 ANION GAP 7 MEQ/L 06/23/2014 TSH 7245379 TSH 1.417 uIU/ML 06/23/2014 FREE T4 2364241 FREE T4 1.21 NG/DL 06/23/2014 TSH 7300715 TSH 3.399 uIU/ML 12/16/2013 CBC 2430697 WBC 6.4 10e9/L 12/15/2013 CBC 0363998 RBC 4.34 10e12/L 12/15/2013 CBC 9462567 HGB 12.9 g/dL 12/15/2013 CBC 5942992 HCT DET 39.3 % 12/15/2013 CBC 1311941 MCV 90.6 fL 12/15/2013 CBC 5109158 MCH 29.7 pg 12/15/2013 CBC 5903641 MCHC 32.8 g/dL 12/15/2013 CBC 4990172 PLT 292 10e9/L 12/15/2013 CBC 7147061 MPV 10.8 fL 12/15/2013 CBC 3072045 BESSY % 63.6 % 12/15/2013 CBC 2351987 LY % 25.7 % 12/15/2013 CBC 2575438 MON % 7.1 % 12/15/2013 CBC 1015042 EOS % 3.3 % 12/15/2013 CBC 4585693 BASO % 0.3 % 12/15/2013 CBC 9655272 RDW 13.4 % 12/15/2013 CBC 3052611 ABS BESSY 4.07 10e9/L 12/15/2013 CBC 2445412 ABS LYMPH 1.64 10e9/L 12/15/2013 CBC 1318227 ABS MONO 0.45 10e9/L 12/15/2013 CBC 1083654 ABS EOS 0.21 10e9/L 12/15/2013 CBC 0966688 ABS BASO 0.02 10e9/L 12/15/2013 CBC 1173857 RDW-SD 43.5 fL 12/15/2013 CHEM 14 3665627 AST 19 U/L 12/15/2013 CHEM 14 2870197 ALT 23 IU/L 12/15/2013 CHEM 14 5399259 BUN 23 MG/DL 12/15/2013 CHEM 14 8166448 ALBUMIN 4.7 GM/DL 12/15/2013 CHEM 14 0180887 CHLORIDE 108 MMOL/L 12/15/2013 CHEM 14 3939304 BILI TOT 0.3 MG/DL 12/15/2013 CHEM 14 8819896 ALK PHOS 58 U/L 12/15/2013 CHEM 14 8413358 SODIUM 139 MMOL/L 12/15/2013 CHEM 14 5695506 CREATININE 0.92 MG/DL 12/15/2013 CHEM 14 1814731 CALCIUM 10.0 MG/DL 12/15/2013 CHEM 14 8153814 POTASSIUM 4.0 MMOL/L 12/15/2013 CHEM 14 0756789 PROT TOT 7.1 GM/DL 12/15/2013 CHEM 14 2346055 GLUCOSE 82 MG/DL 12/15/2013 CHEM 14 5271095 BICARB 24 MMOL/L 12/15/2013 CHEM 14 4084614 ANION GAP 7 MEQ/L 12/15/2013 GFR CALC 2895366 GFR AA >60 ML/MIN 12/15/2013 GFR CALC 2453951 GFR NON-AA >60 ML/MIN 12/15/2013 URINALYSIS NONAUTO W/O SCOPE 47061 Specific [place] 1.025 DateTime(Free Text in Aprima) URINALYSIS NONAUTO W/O SCOPE 30973 PH 5 DateTime(Free Text in Aprima) URINALYSIS NONAUTO W/O SCOPE 87289 GLUCOSE neg DateTime( Free Text in Aprima) URINALYSIS NONAUTO W/O SCOPE 59948 Protein neg DateTime( Free Text in Aprima) URINALYSIS NONAUTO W/O SCOPE 29909 Blood neg DateTime(Free Text in Aprima) URINALYSIS NONAUTO W/O SCOPE 67274 Bilirubin neg DateTime(Free Text in Aprima) URINALYSIS NONAUTO W/O SCOPE 86757 Ketones neg DateTime( Free Text in Aprima) URINALYSIS NONAUTO W/O SCOPE 89429 Urobilinogen neg DateTime(Free Text in Aprima) URINALYSIS NONAUTO W/O SCOPE 59780 Nitrite neg DateTime( Free Text in Aprima) URINALYSIS NONAUTO W/O SCOPE 40553 Leukocytes neg DateTime(Free Text in Aprima) Review of Systems System Result Effective Dates Constitutional No recent illness 2017 Constitutional No [...] accomodation 02/11/2018 None Full Exam - General 1995 Ears/Nose/Throat lips/teeth/gingiva Overall: benign lips 02/11/2018 None [...] accomodation 05/10/2017 None Full Exam - General 1995 Ears/Nose/Throat otoscopic exam Overall: external auditory canals clear 05/10/2017 None Full Exam - General 1995 Ears/Nose/Throat otoscopic exam Tympanic membrane: air- fluid [...] vein procedure that will be perform in [place] in May. Full Exam - General 1994 [...] tenderness 03/16/2014 None Full Exam - General 1995 Abdomen [...] left Full Exam - General 1995 Ears/Nose/Throat oral cavity/pharynx/larynx Overall: oral mucosa clear 10/20/2013 None Full Exam - General 1994 Ears/Nose/Throat oral cavity/pharynx/larynx Overall: oropharyngeal mucosa clear 10/20/2013 None Full Exam - General 1995 Ears/Nose/Throat oral cavity/pharynx/larynx Overall: no masses 10/20/2013 [...] clear 06/09/2013 None Full Exam - General 1995 Ears/Nose/Throat [...] 12/25/2012 None Full Exam - General 1995 Eyes conjunctiva /eyelids Overall: cornea clear 12/25/2012 [...] fibrous breast tissue Full Exam - General 1995 Constitutional general appearance Overall: well developed 10/20/2012 None Full Exam - General 1994 Constitutional general appearance Overall: in no acute distress 10/20/2012 None Full Exam - General 1995 Constitutional general appearance Overall: well nourished 10/20/2012 None Full Exam - General 1995 Eyes conjunctiva /eyelids Overall: conjunctiva clear 10/20/2012 None Full Exam - General 1995 Eyes conjunctiva /eyelids Overall: cornea clear 10/20/2012 None Full Exam - General 1995 Eyes conjunctiva /eyelids Overall: eyelids normal 10/20/2012 [...] rate 08/11/2012 None Full Exam - General 1995 Cardiovascular extremities Overall: no clubbing 08/11/2012 None Full Exam - General 1995 Cardiovascular auscultation of heart Overall: regular rate 08/11/2012 None Full Exam - General 1995 Cardiovascular auscultation of heart Overall: normal heart sounds 08/11/2012 None Full Exam - General 1995 Cardiovascular auscultation of heart Overall: no murmurs 08/11/2012 None Full Exam - General 1995 Abdomen abdominal exam Overall: no tenderness 08/11/2012 None Full Exam - General 1995 Abdomen abdominal exam Overall: normal bowel sounds 08/11/2012 None Full Exam - General 1995 Musculoskeletal gait and station Gait: asymmetric 08/11/2012 None Full Exam - General 1995 Neurologic [...] Procedure Codes Date IMMUNIZATION ADMIN CPT -4: 84600 06/05/2018 FLU VAC NO PRSV 4 ZONIA 3 YRS+ CPT-4: 53176 06/05/2018 IMMUNIZATION ADMIN CPT -4: 25591 06/19/2017 FLU VAC NO PRSV 4 ZONIA 3 YRS+ CPT-4: 67961 06/19/2017 URINALYSIS NONAUTO W/O SCOPE CPT-4: 13065 09/08/2015 IMMUNIZATION ADMIN CPT -4: 30839 03/30/2015 ADACEL TDAP VACCINE 7 YRS/> IM CPT-4: 65462 03/30/2015 URINALYSIS NONAUTO W/O SCOPE CPT-4: 58681 03/22/2015 THER/PROPH/DIAG INJ SC/IM CPT-4: 49394 11/11/2014 ROCEPHIN, PER 250 MG CPT-4: J0696 11/11/2014 ROUTINE VENIPUNCTURE CPT-4: 53878 10/15/2014 HgbA1c CPT-4: 96583 10/15/2014 CBC (COMPLETE CBC W/AUTO DIFF WBC) CPT-4: 56152 10/15/2014 CHEM 14 (COMPREHEN METABOLIC PANEL) CPT-4: 58615 10/15/2014 TSH (ASSAY THYROID STIM HORMONE) CPT-4: 51690 10/15/2014 VIT D TOTL (VITAMIN D 25 HYDROXY) CPT-4: 07942 10/15/2014 FREE T4 (ASSAY OF FREE THYROXINE) CPT-4: 99923 10/15/2014 ROUTINE VENIPUNCTURE CPT-4: 52849 06/23/2014 CHEM 14 (COMPREHEN METABOLIC PANEL) CPT-4: 81903 06/23/2014 TSH (ASSAY THYROID STIM HORMONE) CPT-4: 50804 06/23/2014 FREE T4 (ASSAY OF FREE THYROXINE) CPT-4: 35232 06/23/2014 URINALYSIS NONAUTO W/O SCOPE CPT-4: 36284 12/15/2013 ROUTINE VENIPUNCTURE CPT-4: 72608 12/15/2013 THER/PROPH/DIAG INJ SC/IM CPT-4: 94685 11/03/2012 VITAMIN B12 INJECTION CPT-4: J3420 11/03/2012 THER/PROPH/DIAG INJ SC/IM CPT-4: 12989 10/20/2012 VITAMIN B12 INJECTION CPT-4: J3420 10/20/2012 VITAMIN B12 INJECTION CPT-4: J3420 09/11/2012 THER/PROPH/DIAG INJ SC/IM CPT-4: 08364 09/11/2012 THER/PROPH/DIAG INJ SC/IM CPT-4: 71246 08/11/2012 VITAMIN B12 INJECTION CPT-4: J3420 08/11/2012 THER/PROPH/DIAG INJ SC/IM CPT-4: 18698 07/21/2012 VITAMIN B12 INJECTION CPT-4: J3420 07/21/2012 Vital Signs Date Vital 08/06/2018 Blood Pressure 1: 116/78 Code : 8480-6 BMI: 32.3 Code : 93832-2 Heart Rate 1 : 71 bpm Height: 5'6" SpO2: 98% Weight: 200 lbs 07/08/2018 Blood Pressure 1: 128/70 Code : 8480-6 BMI: 32.4 Code : 89704-4 Heart Rate 1 : 76 bpm Height: 5'6" SpO2: 96% Weight: 201 lbs 02/11/2018 Blood Pressure 1: 122/84 Code : 8480-6 BMI: 32.4 Code : 65816-4 Heart Rate 1 : 71 bpm Height: 5'6" SpO2: 97% Weight: 201 lbs 11/12/2017 Blood Pressure 1: 130/82 Code : 8480-6 BMI: 32.3 Code : 44835-3 Height: 5'6" Weight: 200 lbs 08/20/2017 Blood Pressure 1: 126/78 Code : 8480-6 BMI: 32.3 Code : 52587-8 Heart Rate 1 : 66 bpm Height: 5'6" SpO2: 98% Weight: 200 lbs 06/24/2017 Blood Pressure 1: 134/78 Code : 8480-6 BMI: 34.2 Code : 57127-2 Heart Rate 1 : 71 bpm Height: 5'6" SpO2: 95% Weight: 212 lbs 05/22/2017 Blood Pressure 1: 122/78 Code : 8480-6 BMI: 33.9 Code : 69360-7 Heart Rate 1 : 76 bpm Height: 5'6" SpO2: 97% Weight: 210 lbs 05/10/2017 Blood Pressure 1: 130/84 Code : 8480-6 BMI: 34.1 Code : 17966-7 Heart Rate 1 : 90 bpm Height: 5'6" SpO2: 98% Temperature: 36.9 (C) / 98.5 (F) Weight: 211 lbs 04/08/2017 Blood Pressure 1: 132/78 Code : 8480-6 BMI: 34.4 Code : 97218-2 Heart Rate 1 : 72 bpm Height: 5'6" SpO2: 97% Weight: 213 lbs 02/20/2017 Blood Pressure 1: 130/90 Code : 8480-6 BMI: 33.9 Code : 70920-3 Heart Rate 1 : 74 bpm Height: 5'6" SpO2: 98% Weight: 210 lbs 11/21/2016 Blood Pressure 1: 132/74 Code : 8480-6 BMI: 34.2 Code : 20468-8 Heart Rate 1 : 66 bpm Height: 5'6" SpO2: 97% Weight: 212 lbs 08/29/2016 Blood Pressure 1: 136/82 Code : 8480-6 BMI: 33.7 Code : 59706-4 Heart Rate 1 : 70 bpm Height: 5'6" Respiratory Rate: 18 bpm SpO2: 98% Weight: 209 lbs 07/05/2016 Blood Pressure 1: 142/76 Code : 8480-6 BMI: 33.2 Code : 84981-5 Heart Rate 1 : 73 bpm Height: 5'6" SpO2: 98% Weight: 206 lbs 06/11/2016 Blood Pressure 1: 130/82 Code : 8480-6 BMI: 33.4 Code : 53145-6 Heart Rate 1 : 76 bpm Height: 5'6" SpO2: 97% Weight: 207 lbs 06/04/2016 Blood Pressure 1: 134/80 Code : 8480-6 BMI: 33.4 Code : 97545-7 Heart Rate 1 : 71 bpm Height: 5'6" SpO2: 98% Weight: 207 lbs 04/10/2016 Blood Pressure 1: 124/80 Code : 8480-6 BMI: 34.4 Code : 22874-6 Heart Rate 1 : 76 bpm Height: 5'6" SpO2: 96% Weight: 213 lbs 03/26/2016 Blood Pressure 1: 118/74 Code : 8480-6 BMI: 34.4 Code : 74259-8 Heart Rate 1 : 72 bpm Height: 5'6" SpO2: 98% Weight: 213 lbs 01/23/2016 Blood Pressure 1: 134/76 Code : 8480-6 BMI: 33.7 Code : 56852-3 Heart Rate 1 : 76 bpm Height: 5'6" SpO2: 97% Weight: 209 lbs 12/26/2015 Blood Pressure 1: 116/76 Code : 8480-6 BMI: 33.4 Code : 84942-1 Heart Rate 1 : 78 bpm Height: 5'6" SpO2: 98% Weight: 207 lbs 11/02/2015 Blood Pressure 1: 118/80 Code : 8480-6 BMI: 33.6 Code : 48860-3 Heart Rate 1 : 75 bpm Height: 5'6" SpO2: 95% Weight: 208 lbs 09/13/2015 Blood Pressure 1: 140/82 Code : 8480-6 BMI: 33.6 Code : 26539-9 Heart Rate 1 : 92 bpm Height: 5'6" SpO2: 96% Weight: 208 lbs 09/07/2015 Blood Pressure 1: 140/82 Code : 8480-6 BMI: 33.4 Code : 03964-2 Heart Rate 1 : 85 bpm Height: 5'6" SpO2: 95% Weight: 207 lbs 08/16/2015 Blood Pressure 1: 138/84 Code : 8480-6 BMI: 32.9 Code : 46346-5 Heart Rate 1 : 87 bpm Height: 5'6" SpO2: 97% Weight: 204 lbs 06/13/2015 Blood Pressure 1: 130/82 Code : 8480-6 BMI: 33.1 Code : 68148-2 Heart Rate 1 : 84 bpm Height: 5'6" SpO2: 96% Weight: 205 lbs 05/10/2015 Blood Pressure 1: 118/70 Code : 8480-6 BMI: 32.9 Code : 64217-0 Heart Rate 1 : 77 bpm Height: 5'6" SpO2: 97% Weight: 204 lbs 03/22/2015 Blood Pressure 1: 118/76 Code : 8480-6 BMI: 32.0 Code : 18521-9 Heart Rate 1 : 88 bpm Height: 5'6" Temperature: 36.2 (C) / 97.2 (F) Weight: 198 lbs 01/17/2015 Blood Pressure 1: 120/80 Code : 8480-6 BMI: 32.6 Code : 69894-1 Heart Rate 1 : 88 bpm Height: 5'6" Weight: 202 lbs 11/22/2014 Blood Pressure 1: 118/82 Code : 8480-6 BMI: 31.8 Code : 81603-1 Heart Rate 1 : 72 bpm Height: 5'6" Weight: 197 lbs 10/27/2014 Blood Pressure 1: 130/82 Code : 8480-6 BMI: 32.0 Code : 45397-8 Heart Rate 1 : 86 bpm Height: 5'6" SpO2: 97% Weight: 198 lbs 10/15/2014 Blood Pressure 1: 118/82 Code : 8480-6 BMI: 32.1 Code : 69119-3 Heart Rate 1 : 100 bpm Height: 5'6" Weight: 199 lbs 09/30/2014 Blood Pressure 1: 118/86 Code : 8480-6 BMI: 32.0 Code : 07273-5 Heart Rate 1 : 80 bpm Height: 5'6" Temperature: 35.7 (C) / 96.3 (F) Weight: 198 lbs 07/14/2014 Blood Pressure 1: 116/80 Code : 8480-6 BMI: 32.9 Code : 87591-7 Heart Rate 1 : 80 bpm Height: 5'6" Weight: 204 lbs 06/23/2014 Blood Pressure 1: 128/88 Code : 8480-6 BMI: 33.7 Code : 67090-7 Height: 5'6" Weight: 209 lbs 04/09/2014 Blood Pressure 1: 138/82 Code : 8480-6 Heart Rate 1: 90 bpm SpO2: 97% Temperature: 35.8 (C) / 96.5 (F) Weight: 210 lbs 03/16/2014 Blood Pressure 1: 116/80 Code : 8480-6 BMI: 34.1 Code : 78400-3 Heart Rate 1 : 88 bpm Height: 5'6" Weight: 211 lbs 01/12/2014 Blood Pressure 1: 124/70 Code : 8480-6 BMI: 33.4 Code : 49966-2 Heart Rate 1 : 76 bpm Height: 5'6" Weight: 207 lbs 12/15/2013 Blood Pressure 1: 144/100 Code: 8480-6 Blood Pressure 2: 124/90 Code: 8480-6 Heart Rate 1: 72 bpm Weight: 215 lbs 10/20/2013 Blood Pressure 1: 130/84 Code : 8480-6 BMI: 34.5 Code : 41556-4 Heart Rate 1 : 84 bpm Height: 5'6" Weight: 214 lbs 09/15/2013 Blood Pressure 1: 128/90 Code : 8480-6 BMI: 34.9 Code : 73427-0 Heart Rate 1 : 88 bpm Height: 5'6" Temperature: 36.5 (C) / 97.7 (F) Weight: 216 lbs 07/27/2013 Blood Pressure 1: 138/90 Code : 8480-6 BMI: 34.4 Code : 60333-2 Heart Rate 1 : 88 bpm Height: 5'6" Weight: 213 lbs 06/09/2013 Blood Pressure 1: 138/92 Code : 8480-6 Heart Rate 1: 88 bpm Weight: 04/20/2013 Blood Pressure 1: 142/92 Code : 8480-6 BMI: 34.4 Code : 43783-2 Heart Rate 1 : 88 bpm Height: 5'6" Weight: 213 lbs 03/23/2013 Blood Pressure 1: 116/84 Code : 8480-6 BMI: 34.1 Code : 01450-9 Heart Rate 1 : 76 bpm Height: 5'6" Weight: 211 lbs 01/21/2013 Blood Pressure 1: 130/88 Code : 8480-6 BMI: 34.5 Code : 95448-3 Heart Rate 1 : 80 bpm Height: 5'6" Weight: 214 lbs 12/25/2012 Blood Pressure 1: 112/70 Code : 8480-6 Heart Rate 1: 84 bpm Respiratory Rate : 20 bpm Weight: 214 lbs 8 oz 10/20/2012 Blood Pressure 1: 124/80 Code : 8480-6 BMI: 34.4 Code : 50740-5 Heart Rate 1 : 84 bpm Height: 5'6" Temperature: 36.7 (C) / 98.0 (F) Weight: 213 lbs 08/11/2012 Blood Pressure 1: 116/80 Code : 8480-6 BMI: 33.9 Code : 27742-3 Heart Rate 1 : 76 bpm Height: 5'6" Respiratory Rate: 20 bpm Weight: 210 lbs 07/10/2012 Blood Pressure 1: 110/76 Code : 8480-6 BMI: 46.5 Code : 94003-3 Heart Rate 1 : 84 bpm Height: 4'8" Respiratory Rate: 20 bpm Weight: 207 lbs 8 oz Functional Status No Functional Status data History of Present Illness Symptom Name Status Result Effective Date Notes constipation Quality intermittent diarrhea 08/06/2018 None constipation [...] of Symptom _ weeks ago 09/30/2014 around [place] neck pain Location in the lower cervical/ [...] data Encounters Encounter Performer Location Codes Date ([id number]) [id number] EST. PATIENT, LEVEL IV Diagnosis: Essential (primary) hypertension[ICD10: I10] Diagnosis: Generalized anxiety disorder[ICD10: F41.1] Diagnosis: Slow transit constipation[ICD10: K59.01] Diagnosis: Other fatigue[ICD10: R53.83] Diagnosis: Nontoxic multinodular goiter[ICD10: E04.2] Caty Ledesma MD, [facility] CPT-4: 46518 08/06/2018 [id number]) 45390 EST. PATIENT, LEVEL IV Diagnosis: Essential (primary) hypertension[ICD10: I10] Diagnosis: Major depressive disorder, recurrent, moderate[ICD10: F33.1] Diagnosis: Generalized anxiety disorder[ICD10: F41.1] Caty Ledesma MD, [facility] CPT-4: 47421 07/08/2018 ([id number]) 70581 EST. PATIENT, LEVEL IV Diagnosis: Nontoxic multinodular goiter[ICD10: E04.2] Diagnosis: Mixed hyperlipidemia[ICD10: E78.2] Diagnosis: Essential (primary) hypertension[ICD10: I10] Caty Ledesma MD, [facility] CPT-4: 31199 02/11/2018 ([id number]) 33715 EST. PATIENT, LEVEL IV Diagnosis: Nontoxic multinodular goiter[ICD10: E04.2] Diagnosis: Essential (primary) hypertension[ICD10: I10] Diagnosis: Other fatigue[ICD10: R53.83] Caty Ledesma MD, [facility] CPT- 4: 14201 11/12/2017 [id number]) 60203 EST. PATIENT, LEVEL IV Diagnosis: Nontoxic multinodular goiter[ICD10: E04.2] Diagnosis: Major depressive disorder, recurrent, moderate[ICD10: F33.1] Diagnosis: Generalized anxiety disorder[ICD10: F41.1] Diagnosis: Essential (primary) hypertension[ICD10: I10] Caty Ledesma MD, [facility] CPT-4: 81613 08/20/2017 ([id number]) 83166 EST. PATIENT, LEVEL III Diagnosis: Acute recurrent maxillary sinusitis[ICD10: J01.01] Diagnosis: Encounter for other preprocedural examination[ICD10: Z01.818] Mira Ledesma MD, [facility] CPT-4: 49789 06/24/2017 ([id number]) 05090 EST. PATIENT, LEVEL IV Diagnosis: Acute recurrent frontal sinusitis[ICD10: J01.11] Diagnosis: Type 2 diabetes mellitus without complications[ICD10: E11.9] Diagnosis: Essential (primary) hypertension[ICD10: I10] Caty Ledesma MD, [facility] CPT-4: 11133 05/22/2017 ([id number]) 38838 EST. PATIENT, LEVEL III Diagnosis: Acute recurrent maxillary sinusitis[ICD10: J01.01] Diagnosis: Cough[ICD10: R05] Mira Ledesma MD, [facility] CPT-4: 88784 05/10/2017 ([id number]) 59230 EST. PATIENT, LEVEL IV Diagnosis: Generalized anxiety disorder[ICD10: F41.1] Diagnosis: Muscle weakness (generalized)[ICD10: M62.81] Diagnosis: Somnolence[ICD10: R40.0] Diagnosis: Snoring[ICD10: R06.83] Caty Ledesma MD, [facility] CPT-4: 78270 04/08/2017 ([id number]) 31214 EST. PATIENT, LEVEL IV Diagnosis: Vitamin deficiency, unspecified[ICD10: E56.9] Diagnosis: Major depressive disorder, recurrent, moderate[ICD10: F33.1] Diagnosis: Generalized anxiety disorder[ICD10: F41.1] Diagnosis: Impaired fasting glucose[ICD10: R73.01] Diagnosis: Chronic migraine without aura, not intractable, without status migrainosus[ICD10: G43.709] Diagnosis: Essential (primary) hypertension[ICD10: I10] Diagnosis: Mixed hyperlipidemia[ICD10: E78.2] Diagnosis: Nontoxic multinodular goiter[ICD10: E04.2] Caty Ledesma MD, [facility] CPT-4: 77394 02/20/2017 ([id number]) 71959 EST. PATIENT, LEVEL IV Diagnosis: Generalized anxiety disorder[ICD10: F41.1] Diagnosis: Major depressive disorder, recurrent, moderate[ICD10: F33.1] Diagnosis: Chronic pain syndrome[ICD10: G89.4] Diagnosis: Other specified polyneuropathies[ICD10: G62.89] Diagnosis: Muscle weakness (generalized)[ICD10: M62.81] Diagnosis: Essential (primary) hypertension[ICD10: I10] Caty Ledesma MD, [facility] CPT-4: 08797 11/21/2016 ([id number]) 79811 EST. PATIENT, LEVEL III Diagnosis: Generalized abdominal pain[ICD10: R10.84] Diagnosis: Essential (primary) hypertension[ICD10: I10] Caty Ledesma MD, [facility] CPT-4: 47973 08/29/2016 ([id number]) 47370 EST. PATIENT, LEVEL III Diagnosis: Epigastric pain[ICD10: R10.13] Caty Ledesma MD [facility] CPT- 4: 83553 07/05/2016 ([id number]) 88919 EST. PATIENT, LEVEL III Diagnosis: Toxic gastroenteritis and colitis[ICD10: K52.1] Caty Ledesma MD, [facility] CPT-4: 26182 06/11/2016 15457 EST. PATIENT, LEVEL III Diagnosis: Left upper quadrant pain[ICD10: R10.12] Estrella Ledesma MD, [facility] CPT-4: 64057 06/04/2016 ([id number]) 71167 EST. PATIENT, LEVEL III Diagnosis: Cellulitis of left toe[ICD10: L03.032] Mira Ledesma MD [facility] CPT-4: 49382 04/10/2016 ([id number]) 88976 EST. PATIENT, LEVEL III Diagnosis: Essential (primary) hypertension[ICD10: I10] Diagnosis: Chronic pain syndrome[ICD10: G89.4] Diagnosis: Other fatigue[ICD10: R53.83] Caty Ledesma MD, [facility] CPT- 4: 68317 03/26/2016 ([id number]) 79300 EST. PATIENT, LEVEL III Diagnosis: Gastro-esophageal reflux disease without esophagitis[ICD10: K21.9] Caty Ledesma MD, [facility] CPT-4: 83024 01/23/2016 ([id number]) 31894 EST. PATIENT, LEVEL IV Diagnosis: Type 2 diabetes mellitus without complications[ICD10: E11.9] Diagnosis: Gastro-esophageal reflux disease without esophagitis[ICD10: K21.9] Diagnosis: Functional diarrhea[ICD10: K59.1] Caty Ledesma MD, [facility] CPT-4: 96266 12/26/2015 78494 EST. PATIENT, LEVEL IV Diagnosis: Other seasonal allergic rhinitis[ICD10: J30.2] Diagnosis: Acute recurrent maxillary sinusitis[ICD10: J01.01] Diagnosis: Cough[ICD10: R05] Estrella Ledesma MD, [facility] CPT-4: 31615 11/02/2015 40489 EST. PATIENT, LEVEL III Diagnosis: Acute recurrent maxillary sinusitis[ICD10: J01.01] Diagnosis: Urgency of urination[ICD10: R39.15] Diagnosis: Cough[ICD10: R05] Diagnosis: Acute laryngopharyngitis[ICD10: J06.0] Estrella Ledesma MD, [facility] CPT-4: 63414 09/13/2015 16747 EST. PATIENT, LEVEL IV Diagnosis: Pain in left lower leg[ICD10: M79.662] Diagnosis: Cramp and spasm[ICD10: R25.2] Diagnosis: Acute nasopharyngitis [common cold][ICD10: J00] Estrella Ledesma MD, [facility] CPT-4: 88618 09/07/2015 ([id number]) 53205 EST. PATIENT, LEVEL IV Diagnosis: Essential (primary) hypertension[ICD10: I10] Diagnosis: Type 2 diabetes mellitus without complications[ICD10: E11.9] Diagnosis: Varicose veins of unspecified lower extremities with other complications[ICD10: I83.899] Caty Ledesma MD, [facility] CPT-4: 08184 08/16/2015 ([id number]) 14507 EST. PATIENT, LEVEL IV Diagnosis: Type 2 diabetes mellitus without complications[ICD10: E11.9] Diagnosis: Other mixed anxiety disorders[ICD10: F41.3] Diagnosis: Vitamin deficiency, unspecified[ICD10: E56.9] Diagnosis: Essential (primary) hypertension[ICD10: I10] Caty Ledesma MD, [facility] CPT-4: 39704 06/13/2015 ([id number]) 74092 EST. PATIENT, LEVEL IV Diagnosis: ESSENTIAL HYPERTENSION[ICD9: 401.9] Diagnosis: CHRONIC PAIN SYNDROME[ICD9: 338.4] Caty Ledesma MD [facility] CPT-4: 95701 05/10/2015 ([id number]) 49160 EST. PATIENT, LEVEL III Diagnosis: Back pain[ICD9: 724.5] Diagnosis: URINARY FREQUENCY[ICD9: 788.41] Caty Ledesma MD [facility] CPT- 4: 63238 03/22/2015 ([id number]) 40325 EST. PATIENT, LEVEL IV Diagnosis: ESSENTIAL HYPERTENSION[ICD9: 401.9] Diagnosis: DIABETES TYPE II[ICD9: 250.00] Diagnosis: Varicose vein[ICD9: 454.9] Caty Ledesma MD [facility] CPT- 4: 99548 01/17/2015 ([id number]) 23744 EST. PATIENT, LEVEL IV Diagnosis: HEADACHE[ICD9: 784.0] Diagnosis: Neck pain[ICD9: 723.1] Diagnosis: Vision changes[ICD9: 368.9] Diagnosis: Nausea[ICD9: 787.02] Mira Ledesma MD, [facility] CPT-4: 88393 11/22/2014 ([id number]) 49849 EST. PATIENT, LEVEL I Diagnosis: Meningitis exposure[ICD9: V01.89] Caty Ledesma MD [facility] CPT-4: 98164 11/11/2014 ([id number]) 85609 EST. PATIENT, LEVEL IV Diagnosis: Elevated blood sugar[ICD9: 790.29] Diagnosis: ESSENTIAL HYPERTENSION[ICD9: 401.9] Caty Ledesma MD [facility] CPT-4: 22839 10/27/2014 ([id number]) 84704 EST. PATIENT, LEVEL IV Diagnosis: Costochondritis[ICD9: 733.6] Diagnosis: ALLERGIC RHINITIS[ICD9: 477.9] Diagnosis: Vitamin D deficiency[ICD9: 268.9] Diagnosis: Elevated blood sugar[ICD9: 790.29] Mira Ledesma MD, [facility] CPT-4: 55102 10/15/2014 ([id number]) 00961 EST. PATIENT, LEVEL IV Diagnosis: ESSENTIAL HYPERTENSION[ICD9: 401.9] Diagnosis: Diarrhea[ICD9: 787.91] Caty Ledesma MD [facility] CPT-4: 88652 09/30/2014 ([id number]) 88640 EST. PATIENT, LEVEL IV Diagnosis: Raynauds disease[ICD9: 443.0] Diagnosis: Nausea[ICD9: 787.02] Diagnosis: ESSENTIAL HYPERTENSION[ICD9: 401.9] Caty Ledesma MD [facility] CPT-4: 10711 07/14/2014 ([id number]) 53233 EST. PATIENT, LEVEL IV Diagnosis: ESSENTIAL HYPERTENSION[ICD9: 401.9] Diagnosis: Esophageal reflux[ICD9: 530.81] Diagnosis: Hyponatremia[ICD9: 276.1] Diagnosis: OBESITY[ICD9: 278.00] Diagnosis: Chronic migraine[ICD9: 346.70] Caty Ledesma MD [facility] CPT- 4: 67700 06/23/2014 ([id number]) 98808 EST. PATIENT, LEVEL IV Diagnosis: ESSENTIAL HYPERTENSION[ICD9: 401.9] Diagnosis: GERD (gastroesophageal reflux disease)[ICD9: 530.81] Diagnosis: Costochondritis[ICD9: 733.6] Mira Ledesma MD [facility] CPT-4: 72570 04/09/2014 ([id number]) 30382 EST. PATIENT, LEVEL IV Diagnosis: ESSENTIAL HYPERTENSION[ICD9: 401.9] Diagnosis: RAYNAUD'S SYNDROME[ICD9: 443.0] Caty Ledesma MD [facility] CPT- 4: 31124 03/16/2014 ([id number]) 86941 EST. PATIENT, LEVEL III Diagnosis: ESSENTIAL HYPERTENSION[SNOMED: 68106737] Diagnosis: ALLERGIC RHINITIS[ICD9: 477.9] Diagnosis: Knee pain[ICD9: 719.46] Caty Ledesma MD [facility] CPT-4: 95285 01/12/2014 ([id number]) 12580 EST. PATIENT, LEVEL IV Diagnosis: ALLERGIC RHINITIS[ICD9: 477.9] Diagnosis: ESSENTIAL HYPERTENSION[SNOMED: 35944468] Diagnosis: Fatigue[ICD9: 780.79] Caty Ledesma MD [facility] CPT-4: 78860 12/15/2013 ([id number]) 79424 EST. PATIENT, LEVEL III Diagnosis: ESSENTIAL HYPERTENSION[SNOMED: 72941504] Diagnosis: Skin lesion[ICD9: 709.9] Diagnosis: Raynauds disease[ICD9: 443.0] Caty Ledesma MD [facility] CPT- 4: 86663 10/20/2013 ([id number]) 78176 EST. PATIENT, LEVEL III Diagnosis: ACUTE SINUSITIS[ICD9: 461.9] Caty Ledesma MD [facility] CPT- 4: 72656 09/15/2013 ([id number]) 90704 EST. PATIENT, LEVEL IV Diagnosis: ESSENTIAL HYPERTENSION[SNOMED: 47504767] Diagnosis: Peripheral neuropathy[ICD9: 356.9] Diagnosis: Vitamin D deficiency[ICD9: 268.9] Diagnosis: Vitamin B12 deficiency[ICD9: 266.2] Caty Ledesma MD, [facility] CPT-4: 96025 07/27/2013 ([id number]) 40971 EST. PATIENT, LEVEL III Diagnosis: ACUTE SINUSITIS[ICD9: 461.9] Diagnosis: COUGH[ICD9: 786.2] Mira Ledesma MD, [facility] CPT-4: 19032 06/09/2013 15732 EST. PATIENT, LEVEL IV Diagnosis: HEADACHE[ICD9: 784.0] Diagnosis: Dysphagia[ICD9: 787.20] Diagnosis: Esophageal reflux[ICD9: 530.81] Caty Ledesma MD [facility] CPT- 4: 39924 04/20/2013 ([id number]) 00469 EST. PATIENT, LEVEL IV Diagnosis: Seasonal allergic rhinitis[ICD9: 477.9] Diagnosis: HEADACHE[ICD9: 784.0] Diagnosis: ESSENTIAL HYPERTENSION[SNOMED: 62681541] Caty Ledesma MD, [facility] CPT-4: 87365 03/23/2013 ([id number]) 91901 EST. PATIENT, LEVEL III Diagnosis: ABNORMALITY OF GAIT[ICD9: 781.2] Diagnosis: B-COMPLEX DEFIC NEC[ICD9: 266.2] [facility] CPT-4: 93589 01/21/2013 ([id number]) 06200 EST. PATIENT, LEVEL IV Diagnosis: ESSENTIAL HYPERTENSION[SNOMED: 93436874] Diagnosis: Breast pain[ICD9: 611.71] [facility] CPT-4: 65752 12/25/2012 ([id number]) 60459 EST. PATIENT, LEVEL III Diagnosis: ESSENTIAL HYPERTENSION[SNOMED: 37814214] Diagnosis: ACUTE URI[ICD9: 465.9] [facility] CPT-4: 38259 10/20/2012 [id number]) 70239 EST. PATIENT, LEVEL IV Diagnosis: B-COMPLEX DEFIC NEC[ICD9: 266.2] Diagnosis: ESSENTIAL HYPERTENSION[SNOMED: 13187280] Diagnosis: Gait instability[ICD9: 781.2] Diagnosis: Back pain[ICD9: 724.5] [facility] CPT-4: 21732 08/11/2012 OFFICE VISIT, NEW - LEVEL 4 Diagnosis: ESSENTIAL HYPERTENSION[SNOMED: 83832785] Diagnosis: ACUTE SINUSITIS[ICD9: 461.9] Diagnosis: Gait instability[ICD9: 781.2] Diagnosis: Weakness of both legs[ICD9: 729.89] [facility] CPT-4: 44115 07/10/2012 Plan of Care Planned Activity Notes Codes Status Date Visit Plan: Thyroid nodule - pt to [...] of pristiq 08/06/2018 Appointment: Caty Ledesma WPtel: [address] [place], [place] [address] (15 min) Moderate 08/06/2018 Patient Education: Patient Medication Summary Completed 08/06/2018 Patient Education: Patient Medication Summary Completed 07/09/2018 Care Plan: SCREENINGMAMMOGRAPHYDIGITAL LOINC : 94694-7 Pending 07/09/2018 Visit Plan: Hypertension - well [...] dosing. 07/08/2018 Appointment: [phone] [facility] ([facility] min) Moderate 07/08/2018 Patient Education: Patient [...] to medications. 02/11/2018 Appointment: [facility] Led[facility] [phone] [facility] [place] (15 min) Moderate 02/11/2018 Patient Education: [...] daily. 11/12/2017 Appointment: Caty Ledesma WPtel: [phone] [facility] [place] (15 min) Moderate 11/12/2017 Patient [...] healing well. 08/20/2017 Appointment: Caty Ledesma WPtel: [facility] [place] (15 min) Moderate 08/20/2017 Patient [...] Weaver 06/24/2017 Appointment: [facility] [phone] [phone] [place] (30 min) Complex 06/24/2017 Patient Education: [...] controlled. 05/22/2017 Appointment: [facility] [phone] [facility] (15 min) Moderate 05/22/2017 Patient Education: Patient Medication Summary Completed 05/22/2017 Visit Plan: Sinusitis - Pt has acute infection - pain in face, maxillary region, Pt informed to use decongestant, RX given to patient, sinus rinses also recommended. Call if symptoms do not show improvement. 05/10/2017 Appointment: [facility] Valladares [facility]el[facility] [phone] [phone] [place] (15 min) Moderate 05/10/2017 Patient Education: [...] scale. 04/08/2017 Appointment: [facility] Led[facility] [phone] [facility] [place] (15 min) Moderate 04/08/2017 Patient Education: [...] ultrasound. 02/20/2017 Appointment: [facility] Led[facility] [phone] [facility] [place] (30 min) Complex 02/20/2017 Patient Education: [...] patient. 11/21/2016 Appointment: [facility] Led[facility] [phone] [facility] [place] (15 min) Moderate 11/21/2016 Patient Education: [...] not improving. 08/29/2016 Appointment: Caty Ledesma WPtel: [facility] (30 min) Complex 08/29/2016 Patient Education: Patient Medication Summary Completed 08/29/2016 Patient Education: Hypertension Completed 08/29/2016 Visit Plan: referral to dr. aburto for cysts of right abdomen near ribs 07/05/2016 Appointment: Caty Ledesma WPtel: [facility] (15 min) Moderate 07/05/2016 Patient Education: [...] stomach pain. 06/04/2016 Appointment: Estrella Bynum WPtel[facility] (15 min) Moderate 06/04/2016 Patient Education: Patient [...] of plan. 04/10/2016 Appointment: [facility] Valladares [facility]el[facility] [phone] [phone] (30 min) Complex 04/10/2016 Patient Education: Patient [...] 12/26/2015 Care Plan: Referral Order SNOMED-CT : 673116756 Pending 12/26/2015 Appointment: Cat[facility] Led[facility]ma [facility] [phone] [facility] [place] (15 min) Moderate 12/19/2015 Visit Plan: [...] to keep appt with Dr. Kwon in [place] for treatment of varicose veins. 08/16/2015 Patient [...] over-medication. 05/10/2015 Appointment: [facility] Led[facility] [phone] [facility] Follow up 05/10/2015 Patient Education: Patient Medication [...] referral to Vascular team from [facility] 01/17/2015 Appointment: Cat[facility] Led[facility]el[facility] [phone] [facility] Follow up 01/17/2015 Patient Education: Patient Medication Summary Completed 01/17/2015 Patient Education: Hypertension Completed 01/17/2015 Care Plan: Referral Order referral to [facility] for varicose veins - need to see if the patient can have her ultrasound studies HERE with [facility] SNOMED-CT : [id number] Ordered 01/17/2015 Appointment: Caty Ledesma [facility]el[facility] [phone] [facility] [place] Follow up 01/04/2015 Visit Plan: Worsening ywiwzroh-kbkeag-egcq injury 1 week ago-recommend CT head due [...] three weeks. 10/27/2014 Appointment: Caty Ledesma WPtel: [address] [place], [place] [address] Follow up 10/27/2014 Patient Education: Patient Medication [...] the nasal steroid allergy spray. Elevated blood dwbvqs-dotldckav-kuwdea-check Hgb A1c as well as TSH Vitamin D deficiency-check vitamin D level 10/15/2014 Appointment: Follow up 10/15/2014 Patient Education: Patient Medication Summary Completed 10/15/2014 Care Plan: TSH Pending 10/15/2014 Care Plan: A1C HPLC [facility] : 18009-1 Pending 10/15/2014 Care Plan: VIT D TOTL [...] stomach pain. 09/30/2014 Appointment: Caty Ledesma WPtel: [facility] Follow up 09/30/2014 Patient Education: Patient Medication Summary Completed 09/30/2014 Patient Education: Hypertension Completed 09/30/2014 Appointment: Caty Ledesma WPtel: [facility] Follow up 09/29/2014 Visit Plan: Nausea [...] at home. 07/14/2014 Appointment: Caty Ledesma WPtel: [facility] Follow up 07/14/2014 Patient Education: Patient [...] labs. 06/23/2014 Appointment: [facility] Led[facility] [phone] [facility] Follow up 06/23/2014 Patient Education: Patient Medication [...] worsening. 03/16/2014 Appointment: [facility] Led[facility]Ptel[facility] [phone] [facility] Follow up 03/16/2014 Patient Education: Patient Medication [...] allergy spray. 01/12/2014 Appointment: Cat[facility] Ledesma [facility]Ptel[facility] [phone] [facility] Follow up 01/12/2014 Patient Education: Patient Medication [...] Fatigue-check labs 12/15/2013 Appointment: M[facility] Valladares [facility]el[facility] [phone] [phone] Follow up 12/15/2013 Patient Education: Patient Medication [...] - on scalp - referral to her billing supervisor - Dr. Teran. Recommended pt to call for appt. Raynaud - very mild case - pt to continue with norvasc, monitor symptoms, keep hands warm, call if symptoms worsen, if fingers turn and stay persistently purple, will consider topical treatments versus increase in norvasc. 10/20/2013 Appointment: Caty Ledesma [facility]Ptel[facility] [phone] [facility] Follow up 10/20/2013 Patient Education: Patient Medication Summary Completed 10/20/2013 Patient Education: Hypertension Completed 10/20/2013 Visit Plan: Sinusitis - Pt has acute infection - pain in face, maxillary region, Pt informed to use decongestant, RX given to patient, sinus rinses also recommended. Call if symptoms do not show improvement. 09/15/2013 Appointment: Caty Ledesma WPtel: [facility] S[place] 09/15/2013 Patient Education: Patient Medication Summary [...] tolerance test. 07/27/2013 Appointment: Caty Ledesma WPtel: [facility] Follow up 07/27/2013 Patient Education: Patient Medication Summary Completed 07/27/2013 Patient Education: Hypertension Completed 07/27/2013 Visit Plan: Sinusitis - Pt has acute infection - pain in face, maxillary region, Pt informed to use decongestant, RX given to patient, sinus rinses also recommended. Call if symptoms do not show improvement. 06/09/2013 Appointment: Mira Valladares WPtel[phone] [facility] 06/09/2013 Patient Education: Patient [...] improving. Restart carafate and pepcid 04/20/2013 Appointment: Miar Valladares WPtel: [facility]5 [phone] [place] Other 04/20/2013 Patient Education: Patient Medication [...] at home. 03/23/2013 Appointment: [facility] Led[phone] [facility] Follow up 03/23/2013 Patient Education: Patient Medication Summary Completed 03/23/2013 Patient Education: Hypertension Completed 03/23/2013 Visit Plan: Gait abnormality with falling at home and hitting head - suspect concussion - recommend that Stephanie Amaya at [facility] for balance and gait training. B12 deficiency - improved with b12 shots, will have patient go back to every 2 week injections instead of weekly injections. 01/21/2013 Appointment: Caty Ledesma WPtel: [address] [place], [place] [id number] Follow up 01/21/2013 Patient Education: Patient Medication [...] have mammo. 12/25/2012 Appointment: Caty Ledesma WPtel: [address] [place], [place] [id number] Follow up 12/25/2012 Patient Education: Patient Medication [...] clinic today. 10/20/2012 Appointment: Caty Ledesma WPtel: [address] [place], [place] [id number] [place] Follow up 10/20/2012 Patient Education: Patient Medication Summary Completed 10/20/2012 Patient Education: Hypertension Completed 10/20/2012 Appointment: Caty Ledesma WPtel: [address] [place], [place] [id number] [place] Injection 09/11/2012 Patient Education: Patient Medication Summary Completed 09/11/2012 Appointment: Caty Ledesma WPtel: [address] [place], [place] [id number] [place] Injection 08/18/2012 Visit Plan: Hypertension - [...] a surgeon. 08/11/2012 Appointment: [facility] [phone] [facility] Follow up 08/11/2012 Patient Education: Patient Medication Summary Completed 08/11/2012 Patient Education: Hypertension Completed 08/11/2012 Appointment: [phone] [facility] [place] Injection 07/21/2012 Patient Education: Patient Medication [...] level. 07/10/2012 Appointment: [facility]ada[facility] [phone] [phone] [place] New Patient 07/10/2012 Patient Education: Patient Medication Summary Completed 07/10/2012 Patient Education: High Blood Pressure: Essential Hypertension Completed 2011 Referral: Blaise Aburto Info. faxed Completed Referral: Blaise Aburto Referral Appointment Requested Referral: [facility], - Referral Appointment Requested [...] the end of the three weeks.. . Headaches-check ESR and CRP Dysphagia-thyroid ultrasound [...] the nasal steroid allergy spray. Elevated blood omqyse-lfacchrxc-rspixx-check Hgb A1c as well as TSH Vitamin [...] 17 on epiworth sleepiness scale. . Worsening oxdhatkd-arlbtr-mkxg injury 1 week ago- recommend CT head [...] Further plan pending labs and radiology results. pt to start on probiotic - like [...] abdomen - healing well. . Hypertension - uncontrolled - the patient's [...] send us the report also. decrease the topiramate to 1.5 pills twice [...] recommended patient to have thyroid ultrasound. . Hypertension - well controlled - continue [...] to keep appt with Dr. Kwon in [place] for treatment of varicose veins. . Sinusitis [...] referral to Vascular team from [facility] RESTART NASAL SPRAY TWICE DAILY CHECK BLOOD [...] recommend that Stephanie see Jose Luis at [facility] for balance and gait training. B12 [...] in blood pressure readings at home. . Sinusitis - Pt has acute infection [...] - on scalp - referral to her billing supervisor - Dr. Teran. Recommended pt to call [...] if the symptoms are not improving. . Sinusitis - Pt has [...] readings are starting to become less controlled. decrease the amlodipine to 1/2 pill daily [...]
[2019-01-07 08:04] LABS: ALANINE AMINOTRANSFERASE 30 U/L (0-55); ALBUMIN 4.5 GM/DL (3.2-4.5); ALKALINE PHOSPHATASE 82 U/L (40-136); BILIRUBIN,TOTAL 0.4 MG/DL (0.1-1.0); BUN/CREATININE RATIO 23; CARBON DIOXIDE 22 MMOL/L (21-32); CHLORIDE 108 MMOL/L (98-107); CHOLESTEROL 209 MG/DL (< 200); GFR ESTIMATED > 60; GLUCOSE 100 MG/DL (70-105); HDL CHOLESTEROL 64 MG/DL (40-60); POTASSIUM 3.9 MMOL/L (3.6-5.0); SODIUM 142 MMOL/L (135-145); TOTAL PROTEIN 7.4 GM/DL (6.4-8.2); TRIGLYCERIDES 220 MG/DL (<150); VLDL CHOLESTEROL 44 MG/DL (5-40)
--- OUTSIDE RECORDS SUMMARY | 2019-01-07 08:09 | XMS REPORT | CCD ---
Author Author Mira Valladares Organization [facility] Address [address] [place] [address] Phone Care Team Providers Care Area Manager Name Role Phone PP Unavailable CCM Unavailable Summary Purpose Interface Exchange Insurance Providers Payer name Policy type / Coverage type Covered republican ID Effective Begin Date Effective End Date [facility] Commercial Insurance [id number] 2013 Unknown [place] Medicare Part B Commercial Insurance [id number] 2013 Unknown Family history Daughter Diagnosis Age [...] status Unknown 03/26/[address]: 7987841 Former smoker quit 1979 03/26/2016 Number of children Unknown 3 07/10/[address]: 315241287 Never drinks alcohol 07/10/2012 Has the patient ever used illegal drugs? Unknown Has never used illegal drugs 07/10/2012 Allergies, Adverse Reactions, Alerts Substance Reaction Codes Entered Date Inactivated Date Status cymbalta RxNorm: 767986 07/14/2012 No Inactive Date Active Savella nausea RxNorm: 973804 07/14/2012 No Inactive Date Active Metanx nausea RxNorm: 213409 07/14/2012 No Inactive Date Active Gluten Unknown 07/10/2012 No Inactive Date Active Peanuts Unknown 07/10/2012 No Inactive Date Active Levaquin hives RxNorm: 42252 07/14/2012 No Inactive Date Active macrobid pruritis, hives, RxNorm: 260985 07/14/2012 No Inactive Date Active percocet pruritis RxNorm: 056671 07/14/2012 No Inactive Date Active PREDNISONE pruritis, RxNorm: 8640 07/14/2012 No Inactive Date Active ultram pruritis, hives RxNorm: 14859 06/11/2016 No Inactive Date Active GABAPENTIN nausea, [...] Start Date Stop Date Status Fill Instructions Glucocard Vital Sensor strips RxNorm: TEST TWO TIMES A DAY 03/06/2020 Active Request already responded to by other means (e.g. phone or fax) Vitamin B-12 1,000 mcg/mL injection solution RxNorm: 781878 INJECT 1 ML INTRAMUSCULARLY ONCE WEEKLY 08/29/2018 Active amlodipine 5 mg tablet RxNorm: 643556 1 Tablet(s) PO daily 11/19/2019 Active topiramate 100 mg tablet RxNorm: 208418 1/2 Tablet(s) PO BID 08/04/2019 Active [SAVINGS FOR UNINSURED PATIENTS -- BIN:[id number], PCN: ASPROD1, Group: [id number], ID# [id number], Process claim through [employer], for questions: . THIS IS NOT INSURANCE.] Pristiq 50 mg tablet,extended release RxNorm: 311662 1 Tablet(s) PO BID 08/06/2018 07/31/2019 Active amlodipine 10 mg tablet RxNorm: 544451 1/2 Tablet(s) PO daily 08/06/2018 08/26/2018 Inactive Voltaren 1 % topical gel RxNorm: 108666 APPLY 2 GRAMS TOPICALLY FOUR TIMES A DAY 07/24/2018 10/31/2018 Active Fish Oil 1,000 mg capsule RxNorm: 1 Capsule(s) PO TID 201707/02/2019 Active Valium 5 mg tablet RxNorm: 954682 1 Tablet(s) PO PRN as needed 07/08/2018 No Stop Date Active Vagifem 10 mcg vaginal tablet RxNorm: 971073 1 Tablet(s) VAG daily 07/08/2018 No Stop Date Active naproxen sodium 550 mg tablet RxNorm: 105012 Tablet(s) as needed TAKE 1 TABLET BY MOUTH TWO TIMES DAILY 07/08/20182018 Active - Ref: [id number] Pristiq 100 mg tablet,extended release RxNorm: 600360 1 Tablet(s) PO daily 07/08/2018 08/05/2018 Inactive Voltaren 1 % topical gel RxNorm: 166963 APPLY 2 GRAMS TOPICALLY FOUR TIMES A DAY 07/08/2018 07/23/2018 Inactive topiramate 100 mg tablet RxNorm: 551987 1 Tablet(s) PO BID 08/05/2018 Inactive [SAVINGS FOR UNINSURED PATIENTS -- BIN:[id number], PCN: ASPROD1, Group: [id number] , ID# [id number], Process claim through [employer], for questions: . THIS IS NOT INSURANCE.] Valium 5 mg tablet RxNorm: 472676 1 Tablet(s) PO PRN as needed 06/24/2018 07/07/2018 Inactive folic acid 1 mg tablet RxNorm: 547604 TAKE ONE TABLET BY MOUTH EVERY DAY 05/27/2018 04/21/2019 Active Valium 5 mg tablet RxNorm: 048341 1 Tablet(s) PO PRN as needed 02/21/2018 No Stop Date Active Valium 5 mg tablet RxNorm: 480790 1 Tablet(s) PO PRN as needed 11/12/2017 02/20/2018 Inactive Synthroid 25 mcg tablet RxNorm: 656977 1 Tablet(s) PO daily 02/201811/11/2017 Inactive Synthroid 25 mcg tablet RxNorm: 777054 1 Tablet(s) PO daily 02/201802/10/2018 Inactive Nitro-Bid 2 % transdermal ointment RxNorm: 235967 APPLY TO AFFECTED AREA(S) TOPICALLY THREE TIMES A DAY NEEDED FOR RAYNAUDS SYMPTOMS OF FEET 08/26/2017 10/24/2017 Inactive Vitamin B-12 1,000 mcg/mL injection solution RxNorm: 788692 INJECT 1ML INTRAMUSCULARLY ONCE WEEKLY 08/23/2017 Inactive Request already responded to by other means (e.g. phone or fax) Vitamin B-12 1,000 mcg/mL injection solution RxNorm: 103734 Milliliter(s) INJECT 1ML INTRAMUSCULARLY ONCE WEEKLY 08/21/2017 08/22/2017 Inactive naproxen sodium 550 mg tablet RxNorm: 687867 TAKE 1 TABLET BY MOUTH TWO TIMES DAILY 08/09/2017 11/06/2017 Inactive - Ref: [id number] Combivent Respimat 20 mcg-100 mcg/actuation solution for inhalation RxNorm: 2490263 1-2 Puff(s) INH Q4 PRN 07/26/2017 No Stop Date Active Valium 5 mg tablet RxNorm: 661391 1 Tablet(s) PO PRN as needed 06/27/2017 11/11/2017 Inactive doxycycline hyclate 100 mg tablet RxNorm: 051474 1 Tablet(s) PO BID 06/24/2017 06/30/2017 Inactive azithromycin 250 mg tablet RxNorm: 777162 1 Tablet(s) PO UD 2 tabs on day #1, then 1 pill daily x 4 more days 05/22/2017 08/20/2017 Inactive hydrocodone 10 mg-chlorpheniramine 8 mg/5 mL oral susp extend.rel 12hr RxNorm: 3876288 5 PO as needed 05/10/20172017 Inactive Augmentin 875 mg-125 mg tablet RxNorm: 387510 1 Tablet(s) PO BID 05/10/2017 05/16/2017 Inactive folic acid 1 mg tablet RxNorm: 732764 TAKE ONE TABLET BY MOUTH EVERY DAY 05/09/2017 05/03/2018 Inactive Carafate 1 gram tablet RxNorm: 003013 TAKE ONE TABLET BY MOUTH FOUR TIMES A DAY 30 MINUTES BEFORE MEALS AND AT BEDTIME 03/18/2017 07/07/2018 Inactive scopolamine 1.5 mg transdermal patch (1 mg over 3 days) RxNorm: 469359 1 Patch TD Q72H use for sea sickness 02/20/201703/05 Inactive Pristiq 50 mg tablet,extended release RxNorm: 437253 1 Tablet(s) PO daily 01/15/2017 07/07/2018 Inactive Pristiq 50 mg tablet,extended release RxNorm: 361312 1 Tablet(s) PO BID 12/20/2016 01/14/2017 Inactive naproxen sodium 550 mg tablet RxNorm: 049931 Tablet(s) Take 1 tablet by mouth twice a day 11/14/2016 08/08/2017 Inactive OneTouch Delica Lancets 33 gauge RxNorm: TEST TWO TIMES A DAY 11/12/2016 04/10/2017 Inactive Phenergan VC-Codeine 6.25 mg-5 mg-10 mg/5 mL syrup RxNorm: 012951 5 Milliliter(s) PO Q6 as needed cough 09/06/20162016 Inactive Nitro-Bid 2 % transdermal ointment RxNorm: 504781 APPLY TO AFFECTED AREA(S) TOPICALLY THREE TIMES A DAY NEEDED FOR RAYNAUDS SYMPTOMS OF FEET 08/21/2016 10/19/2016 Inactive Voltaren 1 % topical gel RxNorm: 495043 APPLY 2 GRAMS TOPICALLY FOUR TIMES A DAY 08/21/2016 12/22/2016 Inactive Vitamin B-12 1,000 mcg/mL injection solution RxNorm: 377195 INJECT 1ML INTRAMUSCULARLY ONCE WEEKLY 08/21/2016 Inactive folic acid 1 mg tablet RxNorm: 492037 TAKE ONE TABLET BY MOUTH EVERY DAY 08/13/2016 04/09/2017 Inactive Flagyl 500 mg tablet RxNorm: 725377 1 Tablet(s) PO TID 201506/22/2016 Inactive Cholestyramine Light 4 gram oral powder RxNorm: 380591 1 packet PO PRN as needed 06/11/2016 No Stop Date Active Flexeril 10 mg tablet RxNorm: 708856 1 Tablet(s) PO as needed 02/19/2017 Inactive 1 hs Vagifem 10 mcg vaginal tablet RxNorm: 610924 1 Tablet(s) VAG BIW -TIW 06/11/2016 07/07/2018 Inactive Flagyl 500 mg tablet RxNorm: 549428 1 Tablet(s) PO TID 201506/10/2016 Inactive Lomotil 2.5 mg-0.025 mg tablet RxNorm: 4197245 1 Tablet(s) PO AC & HS as needed 04/24/2016 05/23/2016 Inactive Keflex 500 mg capsule RxNorm: 374548 1 Capsule(s) PO TID 201504/11/2016 Inactive Keflex 500 mg capsule RxNorm: 172385 1 Capsule(s) PO TID 201504/18/2016 Inactive Pristiq 50 mg tablet,extended release RxNorm: 264516 1 Tablet(s) PO QAM 03/30/2016 12/19/2016 Inactive amitriptyline 25 mg tablet RxNorm: 291293 1/2 Tablet(s) PO QHS x [address] pablo 03/30/2016 06/10/2016 Inactive potassium chloride 20 mEq/15 mL oral liquid RxNorm: 839945 TAKE 2 TABLESPOONS DAILY 03/23/2016 09/18/2016 Inactive Glucocard Vital Sensor strips RxNorm: TEST TWO TIMES A DAY 10/17/2017 Inactive Questran 4 gram oral powder RxNorm: 300655 1 dose PO daily 04/201602/14/2016 Inactive Questran 4 gram oral powder RxNorm: 818417 1 dose PO daily 04/201603/15/2016 Inactive Miralax 17 gram oral powder packet RxNorm: 560607 1 PO daily 02/08/2016 Inactive Miralax 17 gram oral powder packet RxNorm: 318686 1 PO daily 06/10/2016 Inactive Carafate 1 gram tablet RxNorm: 597369 1 Tablet(s) PO QID take 30 minutes before meals and at bedtime 01/23/20162015 Inactive Vitamin D2 50,000 unit capsule RxNorm: 086876 1 Capsule(s) PO QW 12/26/2015 03/24/2016 Inactive Tamiflu 75 mg capsule RxNorm: 586592 1 Capsule(s) PO daily 11/2111/21/2015 Inactive Tamiflu 75 mg capsule RxNorm: 117487 1 Capsule(s) PO daily 11/2112/01/2015 Inactive folic acid 1 mg tablet RxNorm: 890951 TAKE ONE TABLET BY MOUTH EVERY DAY 11/03/2015 07/29/2016 Inactive Keflex 500 mg capsule RxNorm: 445189 1 Capsule(s) PO TID 201511/11/2015 Inactive Augmentin 500 mg-125 mg tablet RxNorm: 742260 1 Tablet(s) PO TID 09/13/2015 09/22/2015 Inactive Zithromax Z-Juanpablo 250 mg tablet RxNorm: 395678 1 Tablet(s) PO 12/25/2015 Inactive OneTouch Delica Lancets 33 gauge RxNorm: 1 test Miscellaneous BID 06/21/2015 06/14/2016 Inactive Nitro-Bid 2 % transdermal ointment RxNorm: 605013 1 Application TD TID as needed raynauds symptoms of feet 06/01/201508/29 Inactive Vitamin B-12 1,000 mcg/mL injection solution RxNorm: 045038 INJECT 1ML INTRAMUSCULARLY ONCE WEEKLY 05/16/201503/2016 Inactive Voltaren 1 % topical gel RxNorm: 301591 2 Gram(s) TOP QID 05/1007/08/2015 Inactive potassium chloride 20 mEq/15 mL oral liquid RxNorm: 093779 TAKE 2 TABLESPOONS DAILY 04/22/2015 10/18/2015 Inactive naproxen sodium 550 mg tablet RxNorm: 913539 Tablet(s) Take 1 tablet by mouth twice a day 03/10/2015 06/01/2016 Inactive naproxen sodium 550 mg tablet RxNorm: 016709 Take 1 tablet by mouth twice a day 03/09/2015 11/15/2016 Inactive 2nd Attempt Pristiq 50 mg tablet,extended release RxNorm: 725303 1 Tablet(s) PO BID 03/09/2015 03/08/2015 Inactive naproxen sodium 550 mg tablet RxNorm: 862810 1 Tablet(s) PO BID 03/09/2015 03/08/2015 Inactive naproxen sodium 550 mg tablet RxNorm: 450810 Take 1 tablet by mouth twice a day 03/09/2015 03/09/2015 Inactive Pristiq 50 mg tablet,extended release RxNorm: 563396 Take 1 tablet twice a day 03/09/2015 03/29/2016 Inactive folic acid 1 mg tablet RxNorm: 871434 TAKE ONE TABLET BY MOUTH EVERY DAY 01/17/2015 11/02/2015 Inactive Vitamin B-12 1,000 mcg/mL injection solution RxNorm: 773857 INJECT 1 MLS DIRECTED ONCE WEEKLY 12/03/20142015 Inactive hydrocodone 10 mg-acetaminophen 325 mg tablet RxNorm: 655776 1 Tablet(s) PO Q6 PRN 11/22/2014 12/21/2014 Inactive [SAVINGS FOR NON-COVERED DRUGS -- BIN:[id number], PCN: ASPROD1, Group: XXXXX, ID# [id number], Questions: . THIS IS NOT INSURANCE.] ceftriaxone 1 gram solution for injection RxNorm: 0235194 Inj 11/11/2014 11/11/2014 Inactive [SAVINGS FOR NON-COVERED DRUGS -- BIN:742493, PCN: ASPROD1, Group: XXXXX, ID# [id number], Questions: . THIS IS NOT INSURANCE.] Glucocard Vital Sensor strips RxNorm: 1 test Miscellaneous BID 10/27/2014 10/26/2014 Inactive DX code 790.29 Glucocard Vital Sensor strips RxNorm: 1 test Miscellaneous BID 10/27/2014 11/20/2015 Inactive DX code 790.29 [SAVINGS FOR UNINSURED PATIENTS -- BIN:211381, PCN: ASPROD1, Group: [id number], ID# [id number], Process claim through [employer], for questions: . THIS IS NOT INSURANCE.] topiramate 100 mg tablet RxNorm: 561355 2 Tablet(s) PO BID 04/27/2015 Inactive [SAVINGS FOR UNINSURED PATIENTS -- BIN:819231, PCN: ASPROD1, Group: [id number] , ID# [id number], Process claim through [employer], for questions: . THIS IS NOT INSURANCE.] Cholestyramine Susp Light 4 gram powder for susp in a packet RxNorm: 844901 packet PO PRN as needed 08/30/20142015 Inactive Nitro-Bid 2 % transdermal ointment RxNorm: 851721 1 Application TD TID as needed raynauds symptoms of feet 07/14/201410/11 Inactive Flonase 50 mcg/actuation nasal spray,suspension RxNorm: 232408 PLACE 2 SPRAYS IN EACH NOSTRIL DAILY 05/25/2014 08/22/2014 Inactive potassium chloride 20 mEq/15 mL oral liquid RxNorm: 693662 2 Tablespoon(s) PO daily 04/20/2014 04/21/2015 Inactive potassium chloride 10 % oral liquid RxNorm: 986794 2 Tablespoon(s) PO daily 04/20/2014 04/19/2014 Inactive potassium chloride 10 % oral liquid RxNorm: 602248 2 Tablespoon(s) PO daily 04/09/2014 04/19/2014 Inactive folic acid 1 mg tablet RxNorm: 943091 Tablet(s) PO TAKE ONE TABLET BY MOUTH EVERY DAY 02/15/2014 No Stop Date Active folic acid 1 mg tablet RxNorm: 998320 Tablet(s) PO TAKE ONE TABLET BY MOUTH EVERY DAY 02/15/2014 01/16/2015 Inactive folic acid 1 mg tablet RxNorm: 188244 1 Tablet(s) PO daily TAKE ONE TABLET BY MOUTH EVERY DAY 02/15/2014 02/14/2014 Inactive Flonase 50 mcg/actuation nasal spray,suspension RxNorm: 321735 1 [place] NASAL BID 01/12/2014 08/09/2014 Inactive topiramate 100 mg tablet RxNorm: 162337 1.5 Tablet(s) PO BID 08/09/2014 Inactive amoxicillin 500 mg capsule RxNorm: 546183 1 Capsule(s) PO TID 12/24/2013 12/30/2013 Inactive amoxicillin 500 mg capsule RxNorm: 656312 1 Capsule(s) PO TID 12/24/2013 12/23/2013 Inactive Pristiq 50 mg tablet,extended release RxNorm: 485117 1 Tablet(s) PO BID 12/01/2013 02/23/2015 Inactive Vitamin B-12 1,000 mcg/mL injection solution RxNorm: 213328 1 Milliliter(s) Inj QW 11/10/2013 11/09/2013 Inactive Vitamin B-12 1,000 mcg/mL injection solution RxNorm: 308029 1 Milliliter(s) Inj QW 11/10/2013 12/02/2014 Inactive Myrbetriq 25 mg tablet,extended release RxNorm: 9734027 1 Tablet(s) PO daily 10/20/2013 08/16/2014 Inactive fluconazole 150 mg tablet RxNorm: 605726 1 Tablet(s) PO daily 09/15/2013 09/19/2013 Inactive amoxicillin 875 mg-potassium clavulanate 125 mg tablet RxNorm: 832496 1 Tablet(s) PO BID 09/15/2013 09/24/2013 Inactive Pristiq 50 mg tablet,extended release RxNorm: 461448 1 Tablet(s) PO BID 07/30/2013 11/30/2013 Inactive Topamax 25 mg tablet RxNorm: 162963 4 Tablet(s) PO BID 201201/11/2014 Inactive vitamin B12 200mcg [place], Suspension RxNorm: 1 [place] PO daily 07/27/2013 12/25/2015 Inactive Flonase 50 mcg/actuation nasal spray,suspension RxNorm: 697527 2 [place] NASAL daily 06/09/2013 07/08/2013 Inactive Carafate 1 gram tablet RxNorm: 752712 1 Tablet(s) PO ac and hs 05/07/2013 05/06/2013 Inactive Carafate 1 gram tablet RxNorm: 623264 1 Tablet(s) PO ac and hs 05/07/2013 05/31/2014 Inactive potassium chloride 10 % Oral Liquid RxNorm: 710955 1 Tablespoon(s) PO daily 03/23/2013 04/08/2014 Inactive folic acid 1 mg tablet RxNorm: 450573 Tablet(s) PO TAKE ONE TABLET BY MOUTH EVERY DAY 01/29/2013 02/14/2014 Inactive naproxen sodium 550 mg tablet RxNorm: 179464 1 Tablet(s) PO BID 01/21/2013 10/26/2014 Inactive hydrocodone 5 mg-acetaminophen 500 mg tablet RxNorm: 341642 1 Tablet(s) PO Q8 PRN 12/25/2012 02/19/2017 Inactive folic acid 1 mg tablet RxNorm: 196912 1 Tablet(s) PO daily 01/28/2013 Inactive cyanocobalamin (vitamin B-12) 1,000 mcg/mL Injection RxNorm: 928422 1 Milliliter(s ) Inj 2 x month inject 1 mL every other week intramuscularly 11/03/2012 11/02/2012 Inactive please provide 25 gauge syringes as well. cyanocobalamin (vitamin B-12) 1,000 mcg/mL Injection RxNorm: 592385 Milliliter(s) Inj 11/03/2012 11/03/2012 Inactive cyanocobalamin (vitamin B-12) 1,000 mcg/mL Injection RxNorm: 331691 1 Milliliter(s ) Inj 2 x month inject 1 mL every other week intramuscularly 11/03/2012 12/25/2015 Inactive please provide 25 gauge syringes as well. cyanocobalamin (vitamin B-12) 1,000 mcg/mL Injection RxNorm: 684280 1 Milliliter(s ) Inj 10/20/2012 10/20/2012 Inactive Vitamin B-12 1,000 mcg/mL Injection RxNorm: 365011 1 Milliliter(s) Inj 09/11/2012 09/11/2012 Inactive Zithromax Z-Juanpablo 250 mg tablet RxNorm: 714266 Tablet(s) PO UD 12/24/2012 Inactive please give z juanpablo hydrochlorothiazide 25 mg tablet RxNorm: 330176 1/2 Tablet(s) PO daily 08/11/2012 No Stop Date Active Vitamin B-12 1,000 mcg/mL Injection RxNorm: 067755 Milliliter(s) Inj 08/11/2012 08/11/2012 Inactive Vitamin D2 50,000 unit capsule RxNorm: 399233 Capsule(s) PO one weekly for 8 weeks then resume her daily dosing 07/21/2012 07/20/2012 Inactive Vitamin B-12 1,000 mcg/mL Injection RxNorm: 283138 Milliliter(s) Inj 07/21/2012 07/21/2012 Inactive Vitamin D2 50,000 unit capsule RxNorm: 017001 Capsule(s) PO one weekly for 8 weeks then resume her daily dosing 07/21/2012 09/18/2012 Inactive Diflucan 150 mg tablet RxNorm: 645542 1 Tablet(s) PO daily 09/201107/12/2012 Inactive HyoMax-SR 0.375 mg tablet,extended release RxNorm: 1814934 Tablet(s) PO PRN No Start Date Active Maxalt-[employer] 10 mg disintegrating tablet RxNorm: 158019 Tablet(s) PO PRN No Start Date Active Vitamin D3 2,000 unit tablet RxNorm: 978482 1 Tablet(s) PO daily No Start Date Active potassium chloride 20 mEq/15 mL oral liquid RxNorm: 515894 2 Tablespoon(s) PO daily No Start Date Active Zetia 10 mg tablet RxNorm: 556650 1 Tablet(s) PO QPM No Start Date Active metoprolol tartrate 50 mg tablet RxNorm: 045726 1 Tablet(s) PO BID No Start Date Active biotin 2,500 mcg tablet RxNorm: 203254 1 Tablet(s) PO daily No Start Date Active Zyrtec 10 mg tablet RxNorm: 9199189 1 Tablet(s) PO PRN No Start Date Active Praluent Pen 75 mg/mL subcutaneous pen injector RxNorm: 8898834 1 Milliliter(s) SQ Q 2 weeks No Start Date Active Fioricet oral RxNorm: 385815 oral No Start Date Active Cholestyramine Susp Light 4 gram Packet RxNorm: 451825 packet PO PRN No Start Date 08/29/2014 Inactive Pristiq 50 mg tablet,extended release RxNorm: 701221 1 Tablet(s) PO daily No Start Date 07/29/2013 Inactive Topamax 25 mg tablet RxNorm: 412509 3 Tablet(s) PO BID No Start Date 07/29/2013 Inactive pantoprazole 40 mg tablet,delayed release RxNorm: 547171 1 Tablet(s) PO daily No Start Date 07/07/2018 Inactive Tricor 145 mg tablet RxNorm: 013887 1 Tablet(s) PO daily No Start Date 12/24/2012 Inactive Zithromax Z-Juanpablo 250 mg tablet RxNorm: 048433 Tablet(s) PO UD No Start Date 08/11/2012 Inactive Fish Oil 1,000 mg capsule RxNorm: 1 Capsule(s) PO BID No Start Date 07/07/2018 Inactive Vitamin D3 2,000 unit capsule RxNorm: 461972 1 Capsule(s) PO daily No Start Date 12/25/2015 Inactive Vagifem 10 mcg vaginal tablet RxNorm: 915633 1-2 Tablet(s) VAG weekly No Start Date 06/10/2016 Inactive Gelnique 10 % (100 mg/gram) transdermal gel packet RxNorm: 177841 3% gel 3 pumps TD daily No Start Date 08/09/2014 Inactive Vitamin D3 5,000 unit tablet RxNorm: 066565 1 Tablet(s) PO daily No Start Date 06/10/2016 Inactive hydrochlorothiazide 25 mg tablet RxNorm: 597907 1 Tablet(s) PO daily No Start Date 08/10/2012 Inactive Flexeril 10 mg tablet RxNorm: 694461 Tablet(s) PO No Start Date 06/10/2016 Inactive 1 q am1/2 with dinner1 hs Valium 5 mg tablet RxNorm: 540146 1 Tablet(s) PO PRN No Start Date 06/26/2017 Inactive amlodipine 5 mg tablet RxNorm: 873737 1 Tablet(s) PO daily No Start Date 03/15/2014 Inactive Phenergan VC-Codeine 6.25 mg-5 mg-10 mg/5 mL syrup RxNorm: 010852 5 Milliliter(s) PO Q6 as needed cough No Start Date 2015 Inactive Zithromax Z-Juanpablo 250 mg tablet RxNorm: 429327 Tablet(s) PO UD No Start Date 07/30/2013 Inactive naproxen 500 mg tablet RxNorm: 434537 Tablet(s) PO BID PRN No Start Date 01/20/2013 Inactive Lovaza 1 gram capsule RxNorm: 366585 2 Capsule(s) PO BID No Start Date 03/04/2018 Inactive hydrocodone 5 mg-acetaminophen 500 mg tablet RxNorm: 323146 1 Tablet(s) PO Q8 PRN No Start Date 12/24/2012 Inactive biotin 1000 mg RxNorm : 2 PO No Start Date 06/11/2016 Inactive aspirin 81 mg tablet,delayed release RxNorm: 879888 1 Tablet(s) PO daily No Start Date 07/07/2018 Inactive Lomotil 2.5 mg-0.025 mg tablet RxNorm: 0609708 Tablet(s) PO PRN No Start Date 04/23/2016 Inactive Ditropan XL 5 mg tablet,extended release RxNorm: 055222 1 Tablet(s) PO daily No Start Date 06/09/2018 Inactive Antara 130 mg capsule RxNorm: 305856 1 Capsule(s) PO daily No Start Date 07/07/2018 Inactive folic acid 1 mg tablet RxNorm: 584195 1 Tablet(s) PO daily No Start Date 11/02/2012 Inactive amlodipine 10 mg tablet RxNorm: 109437 1 Tablet(s) PO daily No Start Date 08/05/2018 Inactive amitriptyline 25 mg tablet RxNorm: 718340 1 Tablet(s) PO QHS dr fonseca No Start Date 03/29/2016 Inactive Gelnique transdermal RxNorm: 146924 transdermal No Start Date 03/25/2016 Inactive Toprol XL 50 mg tablet,extended release RxNorm: 430851 1 Tablet(s) PO daily No Start Date 04/08/2017 Inactive potassium chloride 10 % Oral Liquid RxNorm: 943611 1 Tablespoon(s) PO daily No Start Date 03/22/2013 Inactive Lipitor 10 mg tablet RxNorm: 131965 1 Tablet(s) PO QHS No Start Date 12/24/2012 Inactive diltiazem 120 mg tablet RxNorm: 065601 1 Tablet(s) PO daily No Start Date 08/10/2012 Inactive Combivent Respimat 20 mcg-100 mcg/actuation solution for inhalation RxNorm: 3770932 1-2 Puff(s) INH Q4 PRN No Start Date 07/25/2017 Inactive Medication Administered Medication Codes Instructions Start Date Status ceftriaxone 1 gram solution for injection RxNorm: 5410523 11/11/2014 No longer Active cyanocobalamin (vitamin B-12) 1,000 mcg/mL Injection RxNorm : 407256 Milliliter 11/03/2012 No longer Active cyanocobalamin (vitamin B-12) 1,000 mcg/mL Injection RxNorm : 860731 1Milliliter 10/20/2012 No longer Active Vitamin B-12 1,000 mcg/mL Injection RxNorm: 042624 1Milliliter 09/11/2012 No longer Active Vitamin B-12 1,000 mcg/mL Injection RxNorm: 014048 Milliliter 08/11/2012 No longer Active Vitamin B-12 1,000 mcg/mL Injection RxNorm: 531675 Milliliter 07/21/2012 No longer Active Immunizations Vaccine Codes Date Status Influenza CVX: 141 06/05/2018 completed Influenza CVX: 141 06/19/2017 completed Tetanus, Diptheria, Pertussis CVX: 113 completed Tetanus/Diptheria CVX: 113 03/30/2015 completed Influenza CVX: 141 05/12/2012 completed Pneumococcal CVX: 33 06/11/2011 completed Assessments Condition Codes Effective Dates Other fatigue ICD-10: R53.83 ICD-9: 780.79 08/06/2018 Nontoxic multinodular goiter ICD-10: E04.2 ICD-9: 241.1 08/06/2018 Slow transit constipation ICD-10: K59.01 ICD-9: 564.01 08/06/2018 Generalized anxiety disorder ICD-10: F41.1 ICD-9: 300.00 08/06/2018 Essential (primary) hypertension ICD-10: I10 ICD-9: 401.1 08/06/2018 Encounter for screening mammogram for malignant neoplasm of breast ICD-10: Z12.31 ICD-9: V76.10 07/09/2018 Essential (primary) hypertension ICD-10: I10 ICD-9: 401.9 07/08/2018 Major depressive disorder, recurrent, moderate ICD-10: F33.1 ICD-9: 296.32 07/08/2018 Encounter for immunization ICD-10: Z23 ICD-9: [...] Code Item Item Code Result Date Hepatic Kzs150 ALBUMIN 4.5 g/dL 08/11/2018 Hepatic Bwv587 TPRO 7.3 g/dL 08/11/2018 Hepatic Hwx318 GLOB 2.8 g/dL 08/11/2018 Hepatic Yyi483 A/G Ratio 1.6 Ratio 08/11/2018 Hepatic Brq757 ALK PHOS 89 U/L 08/11/2018 Hepatic Cdt151 ALT(SGPT) 31 U/L 08/11/2018 Hepatic Sbl986 AST(SGOT) 20 U/L 08/11/2018 Hepatic Jix099 BILI T 0.4 mg/dL 08/11/2018 Hepatic Lyr850 BILI D 0.1 mg/dL 08/11/2018 Hepatic Ykm586 BILI I 0.3 mg/dL 08/11/2018 Lipid Ord30 [...] Ord30 C/HDL 3.7 Ratio 05/01/2018 Comp Metabolic Ols408 NA 140 mEq/L 05/01/2018 Comp Metabolic Lkr145 K 4.1 mEq/L 05/01/2018 Comp Metabolic Zkm325 CL 107 mEq/L 05/01/2018 Comp Metabolic Vmi676 CO2 25.0 mEq/L 05/01/2018 Comp Metabolic Fdr991 ANION GAP 12 05/01/2018 Comp Metabolic Luk241 GLUCOSE 98 mg/dL 05/01/2018 Comp Metabolic Uml326 Creat 0.7 mg/dL 05/01/2018 Comp Metabolic Ngh620 eGFR 96 ml/min/1.73m2 05/01/2018 Comp Metabolic Hfz320 BUN 14 mg/dL 05/01/2018 Comp Metabolic Vjt000 B/C Ratio 20.9 Ratio 05/01/2018 Comp Metabolic Dlu951 CALCIUM 9.5 mg/dL 05/01/2018 Comp Metabolic Qmn637 ALK PHOS 74 U/L 05/01/2018 Comp Metabolic Ppt355 AST(SGOT) 19 U/L 05/01/2018 Comp Metabolic Xpr247 ALT(SGPT) 29 U/L 05/01/2018 Comp Metabolic Nlz899 BILI T 0.3 mg/dL 05/01/2018 Comp Metabolic Fbz336 ALBUMIN 4.3 g/dL 05/01/2018 Comp Metabolic Skr344 TPRO 6.7 g/dL 05/01/2018 Comp Metabolic Rze117 GLOB 2.4 g/dL 05/01/2018 Comp Metabolic Efp325 A/G Ratio 1.8 Ratio 05/01/2018 Comp Metabolic Voz314 Osmo 280 mOsmo 05/01/2018 Free T4 Udg431 FREE T4 0.95 ng/dL 02/11/2018 Tsh Ord6 TSH (3rd IS) 2.16 uIU/mL 02/11/2018 Free T4 Lxq817 FREE T4 0.81 ng/dL 11/12/2017 Tsh Ord6 TSH (3rd IS) 1.66 uIU/mL 11/12/2017 Tsh Ord6 hTSH II 1.45 uIU/mL 08/20/2017 Free T4 Peb922 FREE T4 0.80 ng/dL 08/20/2017 Hepatic Gke776 ALBUMIN 4.4 g/dL 08/20/2017 Hepatic Jzh126 TPRO 6.6 g/dL 08/20/2017 Hepatic Sxb249 GLOB 2.2 g/dL 08/20/2017 Hepatic Ios388 A/G Ratio 2.0 Ratio 08/20/2017 Hepatic Wts404 ALK PHOS 50 U/L 08/20/2017 Hepatic Cth282 ALT(SGPT) 20 U/L 08/20/2017 Hepatic Dgw031 AST(SGOT) 20 U/L 08/20/2017 Hepatic Mpk015 BILI T 0.3 mg/dL 08/20/2017 Hepatic Kbp023 BILI D 0.1 mg/dL 08/20/2017 Hepatic Iej436 BILI I 0.2 mg/dL 08/20/2017 Lipid Ord30 [...] 30.3 pg 02/21/2017 Cbc With Differential Ord2 [place]% 6.9 % 02/21/2017 Cbc With Differential Ord2 [...] 1.82 K/ul 02/21/2017 Cbc With Differential Ord2 [place] ABS# 0.5 K/ul 02/21/2017 Cbc With Differential Ord2 Eos ABS# 0.2 K/ul 02/21/2017 Cbc With Differential Ord2 Baso ABS# 0.0 K/ul 02/21/2017 %Hba1C Jen043 % HbA1c 20814-0 5.8 % 02/21/2017 %Hba1C Vkf450 Gluc Ave 120 mg/dL 02/21/2017 Tsh Ord6 hTSH II 1.90 uIU/mL 02/21/2017 Vitamin D 25 Oh Brt1389 VITAMIN D, 25 HYDROXY 42.82 ng/mL Comp Metabolic Suc686 NA 141 mEq/L 02/21/2017 Comp Metabolic Rht970 K 4.1 mEq/L 02/21/2017 Comp Metabolic Lwy541 CL 107 mEq/L 02/21/2017 Comp Metabolic Fvm726 CO2 25.0 mEq/L 02/21/2017 Comp Metabolic Flg493 ANION GAP 13 02/21/2017 Comp Metabolic Yty857 GLUCOSE 87 mg/dL 02/21/2017 Comp Metabolic Xqb813 Creat 0.8 mg/dL 02/21/2017 Comp Metabolic Lsu167 eGFR 80 ml/min/1.73m2 02/21/2017 Comp Metabolic Its560 BUN 20 mg/dL 02/21/2017 Comp Metabolic Gaj271 B/C Ratio 25.3 Ratio 02/21/2017 Comp Metabolic Lag094 CALCIUM 9.5 mg/dL 02/21/2017 Comp Metabolic Tqo293 ALK PHOS 61 U/L 02/21/2017 Comp Metabolic Tjt517 AST(SGOT) 16 U/L 02/21/2017 Comp Metabolic Hzy424 ALT(SGPT) 19 U/L 02/21/2017 Comp Metabolic Mbo453 BILI T 0.3 mg/dL 02/21/2017 Comp Metabolic Bij706 ALBUMIN 4.4 g/dL 02/21/2017 Comp Metabolic Pxl239 TPRO 7.0 g/dL 02/21/2017 Comp Metabolic Aaj317 GLOB 2.6 g/dL 02/21/2017 Comp Metabolic Yvm452 A/G Ratio 1.7 Ratio 02/21/2017 Comp Metabolic Teg288 Osmo 283 mOsmo 02/21/2017 Lipid Ord30 CHOL 185 mg/dL 02/21/2017 Lipid Ord30 HDL 74.0 mg/dl 02/21/2017 Lipid Ord30 TRIG 148 mg/dL 02/21/2017 Lipid Ord30 LDL 81 mg/dL 02/21/2017 Lipid Ord30 C/HDL 2.5 Ratio 02/21/2017 Hepatic Ioz044 ALBUMIN 4.9 g/dL 08/21/2016 Hepatic Lmq588 TPRO 7.3 g/dL 08/21/2016 Hepatic Fre274 GLOB 2.5 g/dL 08/21/2016 Hepatic Bse474 A/G Ratio 2.0 Ratio 08/21/2016 Hepatic Wtd243 ALK PHOS 76 U/L 08/21/2016 Hepatic Lyf794 ALT(SGPT) 29 U/L 08/21/2016 Hepatic Gun729 AST(SGOT) 22 U/L 08/21/2016 Hepatic Enp407 BILI T 0.4 mg/dL 08/21/2016 Hepatic Vha703 BILI D 0.1 mg/dL 08/21/2016 Hepatic Sqs528 BILI I 0.3 mg/dL 08/21/2016 Lipid Ord30 CHOL 302 mg/dL 08/21/2016 Lipid Ord30 HDL 69.0 mg/dl 08/21/2016 Lipid Ord30 TRIG 223 mg/dL 08/21/2016 Lipid Ord30 LDL 188 mg/dL 08/21/2016 Lipid Ord30 C/HDL 4.4 Ratio 08/21/2016 Lipase Koz971 LIPASE 14 U/L 06/04/2016 Cbc With Differential [...] 30.0 pg 06/04/2016 Cbc With Differential Ord2 [place]% 6.5 % 06/04/2016 Cbc With Differential Ord2 [...] 1.50 K/ul 06/04/2016 Cbc With Differential Ord2 [place] ABS# 0.4 K/ul 06/04/2016 Cbc With Differential Ord2 Eos ABS# 0.1 K/ul 06/04/2016 Cbc With Differential Ord2 Baso ABS# 0.0 K/ul 06/04/2016 Comp Metabolic Own723 NA 135 mEq/L 06/04/2016 Comp Metabolic Pil661 K 3.8 mEq/L 06/04/2016 Comp Metabolic Rda781 CL 101 mEq/L 06/04/2016 Comp Metabolic Pig004 CO2 26.0 mEq/L 06/04/2016 Comp Metabolic Coy651 ANION GAP 12 06/04/2016 Comp Metabolic Jup458 GLUCOSE 91 mg/dL 06/04/2016 Comp Metabolic Glx225 Creat 0.8 mg/dL 06/04/2016 Comp Metabolic Dns808 eGFR 74 ml/min/1.73m2 06/04/2016 Comp Metabolic Lmo168 BUN 16 mg/dL 06/04/2016 Comp Metabolic Jnw081 B/C Ratio 19.0 Ratio 06/04/2016 Comp Metabolic Obd056 CALCIUM 10.0 mg/dL 06/04/2016 Comp Metabolic Qrs076 ALK PHOS 76 U/L 06/04/2016 Comp Metabolic Jzs924 AST(SGOT) 20 U/L 06/04/2016 Comp Metabolic Gyy328 ALT(SGPT) 24 U/L 06/04/2016 Comp Metabolic Hiu929 BILI T 0.3 mg/dL 06/04/2016 Comp Metabolic Ysd560 ALBUMIN 4.6 g/dL 06/04/2016 Comp Metabolic Siz137 TPRO 6.9 g/dL 06/04/2016 Comp Metabolic Mpc169 GLOB 2.3 g/dL 06/04/2016 Comp Metabolic Eyy709 A/G Ratio 2.0 Ratio 06/04/2016 Comp Metabolic Nrn141 Osmo 271 mOsmo 06/04/2016 Amylase Ord34 AMYLASE 31 U/L 06/04/2016 Hepatic Ucj188 ALBUMIN 4.3 g/dL 2016 Hepatic Fbz247 TPRO 6.7 g/dL 2016 Hepatic Fjl070 GLOB 2.4 g/dL 2016 Hepatic Pty958 A/G Ratio 1.8 Ratio 2016 Hepatic Jvg508 ALK PHOS 50 U/L 2016 Hepatic Oip780 ALT(SGPT) 20 U/L 2016 Hepatic Xoq675 AST(SGOT) 18 U/L 2016 Hepatic Jsi949 BILI T 0.4 mg/dL 2016 Hepatic Pdq942 BILI D 0.1 mg/dL 2016 Hepatic Gad731 BILI I 0.3 mg/dL 2016 Lipid Ord30 CHOL 245 mg/dL 2016 Lipid Ord30 HDL 62.0 mg/dl 2016 Lipid Ord30 TRIG 140 mg/dL 2016 Lipid Ord30 LDL 155 mg/dL 2016 Lipid Ord30 C/HDL 4.0 Ratio 2016 Urine Culture Ucult Preliminary No Growth Day 1 09/15/2015 Urine Culture Ucult Complete No Growth Day 2 09/15/2015 Magnesium Ord90 Mag 1.9 mg/dL 09/07/2015 Comp Metabolic Qif250 NA 139 mEq/L 09/07/2015 Comp Metabolic Zjf954 K 4.4 mEq/L 09/07/2015 Comp Metabolic Dbx245 CL 107 mEq/L 09/07/2015 Comp Metabolic Gxy375 CO2 24.0 mEq/L 09/07/2015 Comp Metabolic Kmu504 ANION GAP 12 09/07/2015 Comp Metabolic Vyx861 GLUCOSE 91 mg/dL 09/07/2015 Comp Metabolic Sdj910 Creat 1.0 mg/dL 09/07/2015 Comp Metabolic Brv713 eGFR 64 ml/min/1.73m2 09/07/2015 Comp Metabolic Hhz518 BUN 31 mg/dL 09/07/2015 Comp Metabolic Tnm393 B/C Ratio 32.3 Ratio 09/07/2015 Comp Metabolic Udz153 CALCIUM 9.7 mg/dL 09/07/2015 Comp Metabolic Dyw737 ALK PHOS 56 U/L 09/07/2015 Comp Metabolic Yym198 AST(SGOT) 29 U/L 09/07/2015 Comp Metabolic Veu244 ALT(SGPT) 34 U/L 09/07/2015 Comp Metabolic Tcs109 BILI T 0.3 mg/dL 09/07/2015 Comp Metabolic Qxb559 ALBUMIN 4.6 g/dL 09/07/2015 Comp Metabolic Nym549 TPRO 7.0 g/dL 09/07/2015 Comp Metabolic Feq190 GLOB 2.4 g/dL 09/07/2015 Comp Metabolic Vik432 A/G Ratio 1.9 Ratio 09/07/2015 Comp Metabolic Ocy603 Osmo 284 mOsmo 09/07/2015 Bili D Ord93 BILI D 0.1 mg/dL 09/07/2015 Bili D Ord93 BILI I 0.2 mg/dL 09/07/2015 Lipid Ord30 CHOL 243 mg/dL 09/07/2015 Lipid Ord30 HDL 75.0 mg/dl 09/07/2015 Lipid Ord30 TRIG 161 mg/dL 09/07/2015 Lipid Ord30 LDL 136 mg/dL 09/07/2015 Lipid Ord30 C/HDL 3.2 Ratio 09/07/2015 Tsh Ord6 hTSH II 2.53 uIU/mL 06/13/2015 Comp Metabolic Cds321 NA 138 mEq/L 06/13/2015 Comp Metabolic Giy885 K 4.0 mEq/L 06/13/2015 Comp Metabolic Qqh211 CL 104 mEq/L 06/13/2015 Comp Metabolic Uxd218 CO2 26.0 mEq/L 06/13/2015 Comp Metabolic Ysp394 ANION GAP 12 06/13/2015 Comp Metabolic Ofj890 GLUCOSE 86 mg/dL 06/13/2015 Comp Metabolic Fpw709 Creat 0.9 mg/dL 06/13/2015 Comp Metabolic Hhl535 eGFR 71 ml/min/1.73m2 06/13/2015 Comp Metabolic Zzb472 BUN 18 mg/dL 06/13/2015 Comp Metabolic Phw314 B/C Ratio 20.5 Ratio 06/13/2015 Comp Metabolic Vmc242 CALCIUM 10.1 mg/dL 06/13/2015 Comp Metabolic Gla015 ALK PHOS 52 U/L 06/13/2015 Comp Metabolic Kzq153 AST(SGOT) 18 U/L 06/13/2015 Comp Metabolic Exx579 ALT(SGPT) 21 U/L 06/13/2015 Comp Metabolic Ker260 BILI T 0.3 mg/dL 06/13/2015 Comp Metabolic Xhl799 ALBUMIN 4.7 g/dL 06/13/2015 Comp Metabolic Zpx790 TPRO 6.9 g/dL 06/13/2015 Comp Metabolic Elt969 GLOB 2.2 g/dL 06/13/2015 Comp Metabolic Hdf411 A/G Ratio 2.1 Ratio 06/13/2015 Comp Metabolic Mcm771 Osmo 277 mOsmo 06/13/2015 %Hba1C Asn840 % HbA1c 41378-7 5.7 % 06/13/2015 %Hba1C Nyz905 Gluc Ave 117 mg/dL 06/13/2015 Cbc With [...] 14.7 % 06/13/2015 Vitamin D 25 Oh Wms5695 VITAMIN D, 25 HYDROXY 41.85 ng/mL Cbc [...] Ord2 RDW 14.5 % 04/18/2015 Comp Metabolic Ydv737 NA 137 mEq/L 04/18/2015 Comp Metabolic Kjc569 K 4.0 mEq/L 04/18/2015 Comp Metabolic Mkx078 CL 105 mEq/L 04/18/2015 Comp Metabolic Lja524 CO2 23.0 mEq/L 04/18/2015 Comp Metabolic Gpy548 ANION GAP 13 04/18/2015 Comp Metabolic Iza823 GLUCOSE 73 mg/dL 04/18/2015 Comp Metabolic Sce510 Creat 0.9 mg/dL 04/18/2015 Comp Metabolic Eaa204 eGFR 72 ml/min/1.73m2 04/18/2015 Comp Metabolic Vif364 BUN 17 mg/dL 04/18/2015 Comp Metabolic Vxm958 B/C Ratio 19.5 Ratio 04/18/2015 Comp Metabolic Ywc777 CALCIUM 9.7 mg/dL 04/18/2015 Comp Metabolic Ugw844 ALK PHOS 55 U/L 04/18/2015 Comp Metabolic Lau705 AST(SGOT) 28 U/L 04/18/2015 Comp Metabolic Cbl065 ALT(SGPT) 27 U/L 04/18/2015 Comp Metabolic Ppd947 BILI T 0.3 mg/dL 04/18/2015 Comp Metabolic Dky521 ALBUMIN 4.5 g/dL 04/18/2015 Comp Metabolic Msa871 TPRO 7.0 g/dL 04/18/2015 Comp Metabolic Zzn242 GLOB 2.5 g/dL 04/18/2015 Comp Metabolic Yxo688 A/G Ratio 1.8 Ratio 04/18/2015 Comp Metabolic Vje926 Osmo 274 mOsmo 04/18/2015 Cbc With Differential [...] Ord2 RDW 15.0 % 03/22/2015 Comp Metabolic Iqo079 NA 136 mEq/L 03/22/2015 Comp Metabolic Xqz995 K 4.1 mEq/L 03/22/2015 Comp Metabolic Dxp605 CL 102 mEq/L 03/22/2015 Comp Metabolic Mbs708 CO2 26.0 mEq/L 03/22/2015 Comp Metabolic Tek884 ANION GAP 12 03/22/2015 Comp Metabolic Lfs249 GLUCOSE 82 mg/dL 03/22/2015 Comp Metabolic Ryo660 Creat 0.9 mg/dL 03/22/2015 Comp Metabolic Kfj299 eGFR 69 ml/min/1.73m2 03/22/2015 Comp Metabolic Jjp542 BUN 30 mg/dL 03/22/2015 Comp Metabolic Ejz380 B/C Ratio 33.3 Ratio 03/22/2015 Comp Metabolic Cpa615 CALCIUM 10.3 mg/dL 03/22/2015 Comp Metabolic Iqf573 ALK PHOS 56 U/L 03/22/2015 Comp Metabolic Psk012 AST(SGOT) 17 U/L 03/22/2015 Comp Metabolic Zad351 ALT(SGPT) 17 U/L 03/22/2015 Comp Metabolic Moh238 BILI T 0.3 mg/dL 03/22/2015 Comp Metabolic Tob556 ALBUMIN 4.7 g/dL 03/22/2015 Comp Metabolic Yfw052 TPRO 7.2 g/dL 03/22/2015 Comp Metabolic Roi006 GLOB 2.5 g/dL 03/22/2015 Comp Metabolic Its183 A/G Ratio 1.9 Ratio 03/22/2015 Comp Metabolic Gfx561 Osmo 277 mOsmo 03/22/2015 FREE T4 7053508 FREE T4 1.24 NG/DL 10/18/2014 CHEM 14 3764677 AST 14 U/L 10/15/2014 CHEM 14 3897579 ALT 15 IU/L 10/15/2014 CHEM 14 1421386 BUN 23 MG/DL 10/15/2014 CHEM 14 8620011 ALBUMIN 4.8 GM/DL 10/15/2014 CHEM 14 8992287 CHLORIDE 105 MMOL/L 10/15/2014 CHEM 14 4188836 BILI TOT 0.3 MG/DL 10/15/2014 CHEM 14 3618305 ALK PHOS 60 U/L 10/15/2014 CHEM 14 1877953 SODIUM 140 MMOL/L 10/15/2014 CHEM 14 9220362 CREATININE 0.89 MG/DL 10/15/2014 CHEM 14 1829856 CALCIUM 10.0 MG/DL 10/15/2014 CHEM 14 9677319 POTASSIUM 3.7 MMOL/L 10/15/2014 CHEM 14 6818156 PROT TOT 7.2 GM/DL 10/15/2014 CHEM 14 6705521 GLUCOSE 97 MG/DL 10/15/2014 CHEM 14 4540923 BICARB 25 MMOL/L 10/15/2014 CHEM 14 7265508 ANION GAP 10 MEQ/L 10/15/2014 CBC 5799252 WBC 6.7 10e9/L 10/15/2014 CBC 4460341 RBC 4.49 10e12/L 10/15/2014 CBC 2363387 HGB 13.4 g/dL 10/15/2014 CBC 4733232 HCT DET 40.2 % 10/15/2014 CBC 3678889 MCV 89.5 fL 10/15/2014 CBC 3622541 MCH 29.8 pg 10/15/2014 CBC 0010043 MCHC 33.3 g/dL 10/15/2014 CBC 0683202 PLT 311 10e9/L 10/15/2014 CBC 7818396 MPV 10.7 fL 10/15/2014 CBC 5714703 BESSY % 63.6 % 10/15/2014 CBC 9194032 LY % 26.7 % 10/15/2014 CBC 7304984 MON % 6.6 % 10/15/2014 CBC 5620228 EOS % 2.8 % 10/15/2014 CBC 1299984 BASO % 0.3 % 10/15/2014 CBC 3086751 RDW 13.4 % 10/15/2014 CBC 7071419 ABS BESSY 4.26 10e9/L 10/15/2014 CBC 8005359 ABS LYMPH 1.79 10e9/L 10/15/2014 CBC 9178563 ABS MONO 0.44 10e9/L 10/15/2014 CBC 2129056 ABS EOS 0.19 10e9/L 10/15/2014 CBC 8631692 ABS BASO 0.02 10e9/L 10/15/2014 CBC 1881948 RDW-SD 43.2 fL 10/15/2014 A1C HPLC 8320555 A1C HPLC 35152-8 5.7 % 10/15/2014 TSH 4658644 TSH 4.083 uIU/ML 10/15/2014 GFR CALC 8082476 GFR AA >60 ML/MIN 10/15/2014 GFR CALC 0742828 GFR NON-AA >60 ML/MIN 10/15/2014 VIT D TOTL 3730168 VIT D TOTL 36 NG/ML 10/15/2014 GFR CALC 9231999 GFR AA >60 ML/MIN 06/23/2014 GFR CALC 8209550 GFR NON-AA >60 ML/MIN 06/23/2014 CHEM 14 8899704 AST 21 U/L 06/23/2014 CHEM 14 5132349 ALT 24 IU/L 06/23/2014 CHEM 14 2601412 BUN 18 MG/DL 06/23/2014 CHEM 14 6653481 ALBUMIN 4.7 GM/DL 06/23/2014 CHEM 14 5208448 CHLORIDE 109 MMOL/L 06/23/2014 CHEM 14 5908860 BILI TOT 0.3 MG/DL 06/23/2014 CHEM 14 4611895 ALK PHOS 53 U/L 06/23/2014 CHEM 14 4846095 SODIUM 140 MMOL/L 06/23/2014 CHEM 14 3743345 CREATININE 0.86 MG/DL 06/23/2014 CHEM 14 0650149 CALCIUM 10.2 MG/DL 06/23/2014 CHEM 14 8356851 POTASSIUM 3.9 MMOL/L 06/23/2014 CHEM 14 5905010 PROT TOT 6.9 GM/DL 06/23/2014 CHEM 14 2908076 GLUCOSE 87 MG/DL 06/23/2014 CHEM 14 6574076 BICARB 24 MMOL/L 06/23/2014 CHEM 14 8025346 ANION GAP 7 MEQ/L 06/23/2014 TSH 7818720 TSH 1.417 uIU/ML 06/23/2014 FREE T4 0876079 FREE T4 1.21 NG/DL 06/23/2014 TSH 6875036 TSH 3.399 uIU/ML 12/16/2013 CBC 8275218 WBC 6.4 10e9/L 12/15/2013 CBC 1916621 RBC 4.34 10e12/L 12/15/2013 CBC 1772092 HGB 12.9 g/dL 12/15/2013 CBC 1556351 HCT DET 39.3 % 12/15/2013 CBC 9232252 MCV 90.6 fL 12/15/2013 CBC 0808337 MCH 29.7 pg 12/15/2013 CBC 9804073 MCHC 32.8 g/dL 12/15/2013 CBC 9157823 PLT 292 10e9/L 12/15/2013 CBC 6776131 MPV 10.8 fL 12/15/2013 CBC 4450673 BESSY % 63.6 % 12/15/2013 CBC 4945966 LY % 25.7 % 12/15/2013 CBC 0303690 MON % 7.1 % 12/15/2013 CBC 0815903 EOS % 3.3 % 12/15/2013 CBC 2391222 BASO % 0.3 % 12/15/2013 CBC 9904222 RDW 13.4 % 12/15/2013 CBC 2214030 ABS BESSY 4.07 10e9/L 12/15/2013 CBC 1789521 ABS LYMPH 1.64 10e9/L 12/15/2013 CBC 6500836 ABS MONO 0.45 10e9/L 12/15/2013 CBC 6902775 ABS EOS 0.21 10e9/L 12/15/2013 CBC 5794621 ABS BASO 0.02 10e9/L 12/15/2013 CBC 8970906 RDW-SD 43.5 fL 12/15/2013 CHEM 14 5723418 AST 19 U/L 12/15/2013 CHEM 14 0050806 ALT 23 IU/L 12/15/2013 CHEM 14 8346331 BUN 23 MG/DL 12/15/2013 CHEM 14 8456061 ALBUMIN 4.7 GM/DL 12/15/2013 CHEM 14 0635996 CHLORIDE 108 MMOL/L 12/15/2013 CHEM 14 3904619 BILI TOT 0.3 MG/DL 12/15/2013 CHEM 14 9078007 ALK PHOS 58 U/L 12/15/2013 CHEM 14 8225409 SODIUM 139 MMOL/L 12/15/2013 CHEM 14 2503935 CREATININE 0.92 MG/DL 12/15/2013 CHEM 14 0347911 CALCIUM 10.0 MG/DL 12/15/2013 CHEM 14 1037280 POTASSIUM 4.0 MMOL/L 12/15/2013 CHEM 14 4486498 PROT TOT 7.1 GM/DL 12/15/2013 CHEM 14 1073400 GLUCOSE 82 MG/DL 12/15/2013 CHEM 14 7207889 BICARB 24 MMOL/L 12/15/2013 CHEM 14 8575865 ANION GAP 7 MEQ/L 12/15/2013 GFR CALC 2449922 GFR AA >60 ML/MIN 12/15/2013 GFR CALC 4802251 GFR NON-AA >60 ML/MIN 12/15/2013 URINALYSIS NONAUTO W/O SCOPE 07752 Specific [place] 1.025 DateTime(Free Text in Aprima) URINALYSIS NONAUTO W/O SCOPE 29859 PH 5 DateTime(Free Text in Aprima) URINALYSIS NONAUTO W/O SCOPE 06863 GLUCOSE neg DateTime( Free Text in Aprima) URINALYSIS NONAUTO W/O SCOPE 74272 Protein neg DateTime( Free Text in Aprima) URINALYSIS NONAUTO W/O SCOPE 19293 Blood neg DateTime(Free Text in Aprima) URINALYSIS NONAUTO W/O SCOPE 52335 Bilirubin neg DateTime(Free Text in Aprima) URINALYSIS NONAUTO W/O SCOPE 10010 Ketones neg DateTime( Free Text in Aprima) URINALYSIS NONAUTO W/O SCOPE 37707 Urobilinogen neg DateTime(Free Text in Aprima) URINALYSIS NONAUTO W/O SCOPE 76755 Nitrite neg DateTime( Free Text in Aprima) URINALYSIS NONAUTO W/O SCOPE 11702 Leukocytes neg DateTime(Free Text in Aprima) Review [...] clear 08/06/2018 None Full Exam - General 1995 [...] lips 02/11/2018 None Full Exam - General 1995 Ears/Nose/Throat lips/teeth/gingiva Overall: normal dentition 02/11/2018 None Full Exam - General 1995 Ears/Nose/Throat oral cavity/pharynx/larynx Overall: oral mucosa clear 02/11/2018 None Full Exam - General 1995 Ears/Nose/Throat oral cavity/pharynx/larynx Overall: oropharyngeal mucosa clear 02/11/2018 None Full Exam - General 1995 Ears/Nose/Throat oral cavity/pharynx/larynx Overall: hypopharynx benign 02/11/2018 [...] hygiene 11/12/2017 None Full Exam - General 1995 Eyes conjunctiva /eyelids Overall: conjunctiva clear 11/12/2017 None Full Exam - General 1994 Eyes conjunctiva /eyelids Overall: cornea clear 11/12/2017 None Full Exam - General 1994 Eyes conjunctiva /eyelids Overall: eyelids normal 11/12/2017 None Full Exam - General 1994 Eyes pupils and irises Overall: pupils equal, round, reactive to light and accomodation 11/12/2017 None Full Exam - General 1995 Ears/Nose/Throat lips/teeth/gingiva Overall: benign lips 11/12/2017 None [...] clear 04/08/2017 None Full Exam - General 1995 Ears/Nose/Throat oral cavity/pharynx/larynx Overall: hypopharynx benign 04/08/2017 [...] accomodation 06/11/2016 None Full Exam - General 1995 Ears/Nose/Throat lips/teeth/gingiva Overall: benign lips 06/11/2016 None [...] General 1995 Ears/Nose/Throat lips/teeth/gingiva Overall: benign lips 05/10/2015 None Full Exam - General 1995 Ears/Nose/Throat lips/teeth/gingiva Overall: normal dentition 05/10/2015 None Full Exam - General 1995 [...] vein procedure that will be perform in [place] in May. Full Exam - General 1994 [...] clear 01/17/2015 None Full Exam - General 1995 Ears/Nose/Throat lips/teeth/gingiva Overall: benign lips 01/17/2015 None Full Exam - General 1994 Ears/Nose/Throat lips/teeth/gingiva Overall: normal dentition 01/17/2015 None Full Exam - General 1994 Ears/Nose/Throat oral cavity/pharynx/larynx Overall: hypopharynx benign 01/17/2015 None Full Exam - General 1994 Ears/Nose/Throat oral cavity/pharynx/larynx Overall: no masses 01/17/2015 None Full Exam - General 1995 Ears/Nose/Throat [...] clear 10/15/2014 None Full Exam - General 1995 Ears/Nose/Throat oral cavity/pharynx/larynx Overall: no masses 10/15/2014 [...] 04/20/2013 None Full Exam - General 1995 Musculoskeletal gait and station Gait: asymmetric 04/20/2013 [...] developed 10/20/2012 None Full Exam - General 1995 [...] time 10/20/2012 None Full Exam - General 1995 Constitutional general appearance Overall: well developed 08/11/2012 None Full Exam - General 1995 Constitutional general appearance Overall: in no acute distress 08/11/2012 None Full Exam - General 1995 Constitutional general appearance Overall: well nourished 08/11/2012 [...] Procedure Codes Date IMMUNIZATION ADMIN CPT -4: 43307 06/05/2018 FLU VAC NO PRSV 4 ZONIA 3 YRS+ CPT-4: 09341 06/05/2018 IMMUNIZATION ADMIN CPT -4: 76094 06/19/2017 FLU VAC NO PRSV 4 ZONIA 3 YRS+ CPT-4: 68505 06/19/2017 URINALYSIS NONAUTO W/O SCOPE CPT-4: 54832 09/08/2015 IMMUNIZATION ADMIN CPT -4: 36609 03/30/2015 ADACEL TDAP VACCINE 7 YRS/> IM CPT-4: 96806 03/30/2015 URINALYSIS NONAUTO W/O SCOPE CPT-4: 61158 03/22/2015 THER/PROPH/DIAG INJ SC/IM CPT-4: 50869 11/11/2014 ROCEPHIN, PER 250 MG CPT-4: J0696 11/11/2014 ROUTINE VENIPUNCTURE CPT-4: 42536 10/15/2014 HgbA1c CPT-4: 21817 10/15/2014 CBC (COMPLETE CBC W/AUTO DIFF WBC) CPT-4: 84552 10/15/2014 CHEM 14 (COMPREHEN METABOLIC PANEL) CPT-4: 64114 10/15/2014 TSH (ASSAY THYROID STIM HORMONE) CPT-4: 51781 10/15/2014 VIT D TOTL (VITAMIN D 25 HYDROXY) CPT-4: 77952 10/15/2014 FREE T4 (ASSAY OF FREE THYROXINE) CPT-4: 56945 10/15/2014 ROUTINE VENIPUNCTURE CPT-4: 86044 06/23/2014 CHEM 14 (COMPREHEN METABOLIC PANEL) CPT-4: 01024 06/23/2014 TSH (ASSAY THYROID STIM HORMONE) CPT-4: 46915 06/23/2014 FREE T4 (ASSAY OF FREE THYROXINE) CPT-4: 49242 06/23/2014 URINALYSIS NONAUTO W/O SCOPE CPT-4: 37954 12/15/2013 ROUTINE VENIPUNCTURE CPT-4: 25337 12/15/2013 THER/PROPH/DIAG INJ SC/IM CPT-4: 35522 11/03/2012 VITAMIN B12 INJECTION CPT-4: J3420 11/03/2012 THER/PROPH/DIAG INJ SC/IM CPT-4: 99164 10/20/2012 VITAMIN B12 INJECTION CPT-4: J3420 10/20/2012 VITAMIN B12 INJECTION CPT-4: J3420 09/11/2012 THER/PROPH/DIAG INJ SC/IM CPT-4: 16657 09/11/2012 THER/PROPH/DIAG INJ SC/IM CPT-4: 12914 08/11/2012 VITAMIN B12 INJECTION CPT-4: J3420 08/11/2012 THER/PROPH/DIAG INJ SC/IM CPT-4: 97990 07/21/2012 VITAMIN B12 INJECTION CPT-4: J3420 07/21/2012 Vital Signs Date Vital 08/06/2018 Blood Pressure 1: 116/78 Code : 8480-6 BMI: 32.3 Code : 34276-0 Heart Rate 1 : 71 bpm Height: 5'6" SpO2: 98% Weight: 200 lbs 07/08/2018 Blood Pressure 1: 128/70 Code : 8480-6 BMI: 32.4 Code : 30641-0 Heart Rate 1 : 76 bpm Height: 5'6" SpO2: 96% Weight: 201 lbs 02/11/2018 Blood Pressure 1: 122/84 Code : 8480-6 BMI: 32.4 Code : 49115-5 Heart Rate 1 : 71 bpm Height: 5'6" SpO2: 97% Weight: 201 lbs 11/12/2017 Blood Pressure 1: 130/82 Code : 8480-6 BMI: 32.3 Code : 81251-3 Height: 5'6" Weight: 200 lbs 08/20/2017 Blood Pressure 1: 126/78 Code : 8480-6 BMI: 32.3 Code : 80810-0 Heart Rate 1 : 66 bpm Height: 5'6" SpO2: 98% Weight: 200 lbs 06/24/2017 Blood Pressure 1: 134/78 Code : 8480-6 BMI: 34.2 Code : 81706-4 Heart Rate 1 : 71 bpm Height: 5'6" SpO2: 95% Weight: 212 lbs 05/22/2017 Blood Pressure 1: 122/78 Code : 8480-6 BMI: 33.9 Code : 37961-4 Heart Rate 1 : 76 bpm Height: 5'6" SpO2: 97% Weight: 210 lbs 05/10/2017 Blood Pressure 1: 130/84 Code : 8480-6 BMI: 34.1 Code : 60230-1 Heart Rate 1 : 90 bpm Height: 5'6" SpO2: 98% Temperature: 36.9 (C) / 98.5 (F) Weight: 211 lbs 04/08/2017 Blood Pressure 1: 132/78 Code : 8480-6 BMI: 34.4 Code : 63348-2 Heart Rate 1 : 72 bpm Height: 5'6" SpO2: 97% Weight: 213 lbs 02/20/2017 Blood Pressure 1: 130/90 Code : 8480-6 BMI: 33.9 Code : 54289-7 Heart Rate 1 : 74 bpm Height: 5'6" SpO2: 98% Weight: 210 lbs 11/21/2016 Blood Pressure 1: 132/74 Code : 8480-6 BMI: 34.2 Code : 85711-0 Heart Rate 1 : 66 bpm Height: 5'6" SpO2: 97% Weight: 212 lbs 08/29/2016 Blood Pressure 1: 136/82 Code : 8480-6 BMI: 33.7 Code : 31595-7 Heart Rate 1 : 70 bpm Height: 5'6" Respiratory Rate: 18 bpm SpO2: 98% Weight: 209 lbs 07/05/2016 Blood Pressure 1: 142/76 Code : 8480-6 BMI: 33.2 Code : 70678-7 Heart Rate 1 : 73 bpm Height: 5'6" SpO2: 98% Weight: 206 lbs 06/11/2016 Blood Pressure 1: 130/82 Code : 8480-6 BMI: 33.4 Code : 71573-0 Heart Rate 1 : 76 bpm Height: 5'6" SpO2: 97% Weight: 207 lbs 06/04/2016 Blood Pressure 1: 134/80 Code : 8480-6 BMI: 33.4 Code : 54827-6 Heart Rate 1 : 71 bpm Height: 5'6" SpO2: 98% Weight: 207 lbs 04/10/2016 Blood Pressure 1: 124/80 Code : 8480-6 BMI: 34.4 Code : 75014-3 Heart Rate 1 : 76 bpm Height: 5'6" SpO2: 96% Weight: 213 lbs 03/26/2016 Blood Pressure 1: 118/74 Code : 8480-6 BMI: 34.4 Code : 99307-9 Heart Rate 1 : 72 bpm Height: 5'6" SpO2: 98% Weight: 213 lbs 01/23/2016 Blood Pressure 1: 134/76 Code : 8480-6 BMI: 33.7 Code : 30447-1 Heart Rate 1 : 76 bpm Height: 5'6" SpO2: 97% Weight: 209 lbs 12/26/2015 Blood Pressure 1: 116/76 Code : 8480-6 BMI: 33.4 Code : 91095-7 Heart Rate 1 : 78 bpm Height: 5'6" SpO2: 98% Weight: 207 lbs 11/02/2015 Blood Pressure 1: 118/80 Code : 8480-6 BMI: 33.6 Code : 70508-6 Heart Rate 1 : 75 bpm Height: 5'6" SpO2: 95% Weight: 208 lbs 09/13/2015 Blood Pressure 1: 140/82 Code : 8480-6 BMI: 33.6 Code : 85698-8 Heart Rate 1 : 92 bpm Height: 5'6" SpO2: 96% Weight: 208 lbs 09/07/2015 Blood Pressure 1: 140/82 Code : 8480-6 BMI: 33.4 Code : 03375-4 Heart Rate 1 : 85 bpm Height: 5'6" SpO2: 95% Weight: 207 lbs 08/16/2015 Blood Pressure 1: 138/84 Code : 8480-6 BMI: 32.9 Code : 06025-1 Heart Rate 1 : 87 bpm Height: 5'6" SpO2: 97% Weight: 204 lbs 06/13/2015 Blood Pressure 1: 130/82 Code : 8480-6 BMI: 33.1 Code : 11241-8 Heart Rate 1 : 84 bpm Height: 5'6" SpO2: 96% Weight: 205 lbs 05/10/2015 Blood Pressure 1: 118/70 Code : 8480-6 BMI: 32.9 Code : 13732-0 Heart Rate 1 : 77 bpm Height: 5'6" SpO2: 97% Weight: 204 lbs 03/22/2015 Blood Pressure 1: 118/76 Code : 8480-6 BMI: 32.0 Code : 73157-1 Heart Rate 1 : 88 bpm Height: 5'6" Temperature: 36.2 (C) / 97.2 (F) Weight: 198 lbs 01/17/2015 Blood Pressure 1: 120/80 Code : 8480-6 BMI: 32.6 Code : 72791-5 Heart Rate 1 : 88 bpm Height: 5'6" Weight: 202 lbs 11/22/2014 Blood Pressure 1: 118/82 Code : 8480-6 BMI: 31.8 Code : 98137-9 Heart Rate 1 : 72 bpm Height: 5'6" Weight: 197 lbs 10/27/2014 Blood Pressure 1: 130/82 Code : 8480-6 BMI: 32.0 Code : 88297-5 Heart Rate 1 : 86 bpm Height: 5'6" SpO2: 97% Weight: 198 lbs 10/15/2014 Blood Pressure 1: 118/82 Code : 8480-6 BMI: 32.1 Code : 42135-4 Heart Rate 1 : 100 bpm Height: 5'6" Weight: 199 lbs 09/30/2014 Blood Pressure 1: 118/86 Code : 8480-6 BMI: 32.0 Code : 05666-0 Heart Rate 1 : 80 bpm Height: 5'6" Temperature: 35.7 (C) / 96.3 (F) Weight: 198 lbs 07/14/2014 Blood Pressure 1: 116/80 Code : 8480-6 BMI: 32.9 Code : 72383-3 Heart Rate 1 : 80 bpm Height: 5'6" Weight: 204 lbs 06/23/2014 Blood Pressure 1: 128/88 Code : 8480-6 BMI: 33.7 Code : 43355-9 Height: 5'6" Weight: 209 lbs 04/09/2014 Blood Pressure 1: 138/82 Code : 8480-6 Heart Rate 1: 90 bpm SpO2: 97% Temperature: 35.8 (C) / 96.5 (F) Weight: 210 lbs 03/16/2014 Blood Pressure 1: 116/80 Code : 8480-6 BMI: 34.1 Code : 26311-0 Heart Rate 1 : 88 bpm Height: 5'6" Weight: 211 lbs 01/12/2014 Blood Pressure 1: 124/70 Code : 8480-6 BMI: 33.4 Code : 96705-0 Heart Rate 1 : 76 bpm Height: 5'6" Weight: 207 lbs 12/15/2013 Blood Pressure 1: 144/100 Code: 8480-6 Blood Pressure 2: 124/90 Code: 8480-6 Heart Rate 1: 72 bpm Weight: 215 lbs 10/20/2013 Blood Pressure 1: 130/84 Code : 8480-6 BMI: 34.5 Code : 14887-3 Heart Rate 1 : 84 bpm Height: 5'6" Weight: 214 lbs 09/15/2013 Blood Pressure 1: 128/90 Code : 8480-6 BMI: 34.9 Code : 06802-8 Heart Rate 1 : 88 bpm Height: 5'6" Temperature: 36.5 (C) / 97.7 (F) Weight: 216 lbs 07/27/2013 Blood Pressure 1: 138/90 Code : 8480-6 BMI: 34.4 Code : 50271-1 Heart Rate 1 : 88 bpm Height: 5'6" Weight: 213 lbs 06/09/2013 Blood Pressure 1: 138/92 Code : 8480-6 Heart Rate 1: 88 bpm Weight: 04/20/2013 Blood Pressure 1: 142/92 Code : 8480-6 BMI: 34.4 Code : 40318-8 Heart Rate 1 : 88 bpm Height: 5'6" Weight: 213 lbs 03/23/2013 Blood Pressure 1: 116/84 Code : 8480-6 BMI: 34.1 Code : 63838-0 Heart Rate 1 : 76 bpm Height: 5'6" Weight: 211 lbs 01/21/2013 Blood Pressure 1: 130/88 Code : 8480-6 BMI: 34.5 Code : 65620-6 Heart Rate 1 : 80 bpm Height: 5'6" Weight: 214 lbs 12/25/2012 Blood Pressure 1: 112/70 Code : 8480-6 Heart Rate 1: 84 bpm Respiratory Rate : 20 bpm Weight: 214 lbs 8 oz 10/20/2012 Blood Pressure 1: 124/80 Code : 8480-6 BMI: 34.4 Code : 28524-8 Heart Rate 1 : 84 bpm Height: 5'6" Temperature: 36.7 (C) / 98.0 (F) Weight: 213 lbs 08/11/2012 Blood Pressure 1: 116/80 Code : 8480-6 BMI: 33.9 Code : 40334-3 Heart Rate 1 : 76 bpm Height: 5'6" Respiratory Rate: 20 bpm Weight: 210 lbs 07/10/2012 Blood Pressure 1: 110/76 Code : 8480-6 BMI: 46.5 Code : 56777-4 Heart Rate 1 : 84 bpm Height: [...] of Symptom _ weeks ago 09/30/2014 over [place] holiday cough Pertinent Findings chest discomfort 09/30/2014 [...] of Symptom _ weeks ago 09/30/2014 around [place] neck pain Location in the lower cervical/ [...] data Encounters Encounter Performer Location Codes Date ([id number]) 01499 EST. PATIENT, LEVEL IV Diagnosis: Essential (primary) hypertension[ICD10: I10] Diagnosis: Generalized anxiety disorder[ICD10: F41.1] Diagnosis: Slow transit constipation[ICD10: K59.01] Diagnosis: Other fatigue[ICD10: R53.83] Diagnosis: Nontoxic multinodular goiter[ICD10: E04.2] Ctay Ledesma MD, [facility] CPT-4: 05617 08/06/2018 ([id number]) 98467 EST. PATIENT, LEVEL IV Diagnosis: Essential (primary) hypertension[ICD10: I10] Diagnosis: Major depressive disorder, recurrent, moderate[ICD10: F33.1] Diagnosis: Generalized anxiety disorder[ICD10: F41.1] aCty Ledesma MD, [facility] CPT-4: 50571 07/08/2018 ([id number]) 78339 EST. PATIENT, LEVEL IV Diagnosis: Nontoxic multinodular goiter[ICD10: E04.2] Diagnosis: Mixed hyperlipidemia[ICD10: E78.2] Diagnosis: Essential (primary) hypertension[ICD10: I10] Caty Ledesma MD, [facility] CPT-4: 41735 02/11/2018 ([id number]) 83126 EST. PATIENT, LEVEL IV Diagnosis: Nontoxic multinodular goiter[ICD10: E04.2] Diagnosis: Essential (primary) hypertension[ICD10: I10] Diagnosis: Other fatigue[ICD10: R53.83] Caty Ledesma MD, [facility] CPT- 4: 74627 11/12/2017 ([id number]) 15986 EST. PATIENT, LEVEL IV Diagnosis: Nontoxic multinodular goiter[ICD10: E04.2] Diagnosis: Major depressive disorder, recurrent, moderate[ICD10: F33.1] Diagnosis: Generalized anxiety disorder[ICD10: F41.1] Diagnosis: Essential (primary) hypertension[ICD10: I10] Caty Ledesma MD, [facility] CPT-4: 42100 08/20/2017 ([id number]) 15556 EST. PATIENT, LEVEL III Diagnosis: Acute recurrent maxillary sinusitis[ICD10: J01.01] Diagnosis: Encounter for other preprocedural examination[ICD10: Z01.818] Mira Ledesma MD, [facility] CPT-4: 52463 06/24/2017 [id number]) 91894 EST. PATIENT, LEVEL IV Diagnosis: Acute recurrent frontal sinusitis[ICD10: J01.11] Diagnosis: Type 2 diabetes mellitus without complications[ICD10: E11.9] Diagnosis: Essential (primary) hypertension[ICD10: I10] Caty Ledesma MD, [facility] CPT-4: 03750 05/22/2017 ([id number] 26293 EST. PATIENT, LEVEL III Diagnosis: Acute recurrent maxillary sinusitis[ICD10: J01.01] Diagnosis: Cough[ICD10: R05] Mira Ledesma MD, [facility] CPT-4: 95185 05/10/2017 [id number]) 94548 EST. PATIENT, LEVEL IV Diagnosis: Generalized anxiety disorder[ICD10: F41.1] Diagnosis: Muscle weakness (generalized)[ICD10: M62.81] Diagnosis: Somnolence[ICD10: R40.0] Diagnosis: Snoring[ICD10: R06.83] Caty Ledesma MD, [facility] CPT-4: 94632 04/08/2017 [id number]) 84647 EST. PATIENT, LEVEL IV Diagnosis: Vitamin deficiency, unspecified[ICD10: E56.9] Diagnosis: Major depressive disorder, recurrent, moderate[ICD10: F33.1] Diagnosis: Generalized anxiety disorder[ICD10: F41.1] Diagnosis: Impaired fasting glucose[ICD10: R73.01] Diagnosis: Chronic migraine without aura, not intractable, without status migrainosus[ICD10: G43.709] Diagnosis: Essential (primary) hypertension[ICD10: I10] Diagnosis: Mixed hyperlipidemia[ICD10: E78.2] Diagnosis: Nontoxic multinodular goiter[ICD10: E04.2] Caty Ledesma MD, [facility] CPT-4: 32348 02/20/2017 [id number]) 48956 EST. PATIENT, LEVEL IV Diagnosis: Generalized anxiety disorder[ICD10: F41.1] Diagnosis: Major depressive disorder, recurrent, moderate[ICD10: F33.1] Diagnosis: Chronic pain syndrome[ICD10: G89.4] Diagnosis: Other specified polyneuropathies[ICD10: G62.89] Diagnosis: Muscle weakness (generalized)[ICD10: M62.81] Diagnosis: Essential (primary) hypertension[ICD10: I10] Caty Ledesma MD, [facility] CPT-4: 13443 11/21/2016 ([id number]) 78885 EST. PATIENT, LEVEL III Diagnosis: Generalized abdominal pain[ICD10: R10.84] Diagnosis: Essential (primary) hypertension[ICD10: I10] Caty Ledesma MD, [facility] CPT-4: 33305 08/29/2016 ([id number]) 09079 EST. PATIENT, LEVEL III Diagnosis: Epigastric pain[ICD10: R10.13] Caty Ledesma MD [facility] CPT- 4: 59530 07/05/2016 ([id number]) 37785 EST. PATIENT, LEVEL III Diagnosis: Toxic gastroenteritis and colitis[ICD10: K52.1] Caty Ledesma MD [facility] CPT-4: 29046 06/11/2016 13291 EST. PATIENT, LEVEL III Diagnosis: Left upper quadrant pain[ICD10: R10.12] Estrella Ledesma MD, [facility] CPT-4: 28558 06/04/2016 ([id number]) 39197 EST. PATIENT, LEVEL III Diagnosis: Cellulitis of left toe[ICD10: L03.032] Mira Ledesma MD, [facility] CPT-4: 09736 04/10/2016 ([id number]) 35383 EST. PATIENT, LEVEL III Diagnosis: Essential (primary) hypertension[ICD10: I10] Diagnosis: Chronic pain syndrome[ICD10: G89.4] Diagnosis: Other fatigue[ICD10: R53.83] Caty Ledesma MD, [facility] CPT- 4: 52417 03/26/2016 ([id number]) 37498 EST. PATIENT, LEVEL III Diagnosis: Gastro-esophageal reflux disease without esophagitis[ICD10: K21.9] Caty Ledesma MD [facility] CPT-4: 23308 01/23/2016 ([id number]) 52684 EST. PATIENT, LEVEL IV Diagnosis: Type 2 diabetes mellitus without complications[ICD10: E11.9] Diagnosis: Gastro-esophageal reflux disease without esophagitis[ICD10: K21.9] Diagnosis: Functional diarrhea[ICD10: K59.1] Caty Ledesma MD [facility] CPT-4: 06126 12/26/2015 34160 EST. PATIENT, LEVEL IV Diagnosis: Other seasonal allergic rhinitis[ICD10: J30.2] Diagnosis: Acute recurrent maxillary sinusitis[ICD10: J01.01] Diagnosis: Cough[ICD10: R05] Estrella Ledesma MD, [facility] CPT-4: 81813 11/02/2015 21009 EST. PATIENT, LEVEL III Diagnosis: Acute recurrent maxillary sinusitis[ICD10: J01.01] Diagnosis: Urgency of urination[ICD10: R39.15] Diagnosis: Cough[ICD10: R05] Diagnosis: Acute laryngopharyngitis[ICD10: J06.0] Estrella Ledesma MD [facility] CPT-4: 87007 09/13/2015 94011 EST. PATIENT, LEVEL IV Diagnosis: Pain in left lower leg[ICD10: M79.662] Diagnosis: Cramp and spasm[ICD10: R25.2] Diagnosis: Acute nasopharyngitis [common cold][ICD10: J00] Estrella Ledesma MD, [facility] CPT-4: 16876 09/07/2015 ([id number]) 65308 EST. PATIENT, LEVEL IV Diagnosis: Essential (primary) hypertension[ICD10: I10] Diagnosis: Type 2 diabetes mellitus without complications[ICD10: E11.9] Diagnosis: Varicose veins of unspecified lower extremities with other complications[ICD10: I83.899] Caty Ledesma MD, [facility] CPT-4: 13093 08/16/2015 ([id number]) 18113 EST. PATIENT, LEVEL IV Diagnosis: Type 2 diabetes mellitus without complications[ICD10: E11.9] Diagnosis: Other mixed anxiety disorders[ICD10: F41.3] Diagnosis: Vitamin deficiency, unspecified[ICD10: E56.9] Diagnosis: Essential (primary) hypertension[ICD10: I10] Caty Ledesma MD [facility] CPT-4: 08549 06/13/2015 ([id number]) 11158 EST. PATIENT, LEVEL IV Diagnosis: ESSENTIAL HYPERTENSION[ICD9: 401.9] Diagnosis: CHRONIC PAIN SYNDROME[ICD9: 338.4] Caty Ledesma MD [facility] CPT-4: 87413 05/10/2015 ([id number]) 53480 EST. PATIENT, LEVEL III Diagnosis: Back pain[ICD9: 724.5] Diagnosis: URINARY FREQUENCY[ICD9: 788.41] Caty Ledesma MD [facility] CPT- 4: 29014 03/22/2015 ([id number]) 06482 EST. PATIENT, LEVEL IV Diagnosis: ESSENTIAL HYPERTENSION[ICD9: 401.9] Diagnosis: DIABETES TYPE II[ICD9: 250.00] Diagnosis: Varicose vein[ICD9: 454.9] Caty Ledesma MD [facility] CPT- 4: 50707 01/17/2015 ([id number]) 14244 EST. PATIENT, LEVEL IV Diagnosis: HEADACHE[ICD9: 784.0] Diagnosis: Neck pain[ICD9: 723.1] Diagnosis: Vision changes[ICD9: 368.9] Diagnosis: Nausea[ICD9: 787.02] Mira Ledesma MD, [facility] CPT-4: 52146 11/22/2014 ([id number]) 05180 EST. PATIENT, LEVEL I Diagnosis: Meningitis exposure[ICD9: V01.89] Caty Ledesma MD [facility] CPT-4: 24684 11/11/2014 ([id number]) 15120 EST. PATIENT, LEVEL IV Diagnosis: Elevated blood sugar[ICD9: 790.29] Diagnosis: ESSENTIAL HYPERTENSION[ICD9: 401.9] Caty Ledesma MD [facility] CPT-4: 13134 10/27/2014 ([id number]) 82334 EST. PATIENT, LEVEL IV Diagnosis: Costochondritis[ICD9: 733.6] Diagnosis: ALLERGIC RHINITIS[ICD9: 477.9] Diagnosis: Vitamin D deficiency[ICD9: 268.9] Diagnosis: Elevated blood sugar[ICD9: 790.29] Mira Ledesma MD [facility] CPT-4: 06954 10/15/2014 ([id number]) 43131 EST. PATIENT, LEVEL IV Diagnosis: ESSENTIAL HYPERTENSION[ICD9: 401.9] Diagnosis: Diarrhea[ICD9: 787.91] Caty Ledesma MD, [facility] CPT-4: 75062 09/30/2014 ([id number]) 76897 EST. PATIENT, LEVEL IV Diagnosis: Raynauds disease[ICD9: 443.0] Diagnosis: Nausea[ICD9: 787.02] Diagnosis: ESSENTIAL HYPERTENSION[ICD9: 401.9] Caty Ledesma MD, [facility] CPT-4: 92042 07/14/2014 ([id number]) 21677 EST. PATIENT, LEVEL IV Diagnosis: ESSENTIAL HYPERTENSION[ICD9: 401.9] Diagnosis: Esophageal reflux[ICD9: 530.81] Diagnosis: Hyponatremia[ICD9: 276.1] Diagnosis: OBESITY[ICD9: 278.00] Diagnosis: Chronic migraine[ICD9: 346.70] Caty Ledesma MD, [facility] CPT- 4: 44957 06/23/2014 ([id number]) 52475 EST. PATIENT, LEVEL IV Diagnosis: ESSENTIAL HYPERTENSION[ICD9: 401.9] Diagnosis: GERD (gastroesophageal reflux disease)[ICD9: 530.81] Diagnosis: Costochondritis[ICD9: 733.6] Mira Ledesma MD, [facility] CPT-4: 42652 04/09/2014 ([id number]) 63542 EST. PATIENT, LEVEL IV Diagnosis: ESSENTIAL HYPERTENSION[ICD9: 401.9] Diagnosis: RAYNAUD'S SYNDROME[ICD9: 443.0] Caty Ledesma MD, [facility] CPT- 4: 68447 03/16/2014 ([id number]) 73145 EST. PATIENT, LEVEL III Diagnosis: ESSENTIAL HYPERTENSION[SNOMED: 51973210] Diagnosis: ALLERGIC RHINITIS[ICD9: 477.9] Diagnosis: Knee pain[ICD9: 719.46] Caty Ledesma MD, [facility] CPT-4: 11573 01/12/2014 ([id number]) 17518 EST. PATIENT, LEVEL IV Diagnosis: ALLERGIC RHINITIS[ICD9: 477.9] Diagnosis: ESSENTIAL HYPERTENSION[SNOMED: 16383773] Diagnosis: Fatigue[ICD9: 780.79] Caty Ledesma MD, [facility] CPT-4: 36312 12/15/2013 ([id number]) 87028 EST. PATIENT, LEVEL III Diagnosis: ESSENTIAL HYPERTENSION[SNOMED: 56029930] Diagnosis: Skin lesion[ICD9: 709.9] Diagnosis: Raynauds disease[ICD9: 443.0] Caty Ledesma MD, [facility] CPT- 4: 94008 10/20/2013 ([id number]) 26381 EST. PATIENT, LEVEL III Diagnosis: ACUTE SINUSITIS[ICD9: 461.9] Caty Ledesma MD, [facility] CPT- 4: 04841 09/15/2013 ([id number]) 22118 EST. PATIENT, LEVEL IV Diagnosis: ESSENTIAL HYPERTENSION[SNOMED: 30060850] Diagnosis: Peripheral neuropathy[ICD9: 356.9] Diagnosis: Vitamin D deficiency[ICD9: 268.9] Diagnosis: Vitamin B12 deficiency[ICD9: 266.2] Caty Ledesma MD, [facility] CPT-4: 90162 07/27/2013 ([id number]) 50884 EST. PATIENT, LEVEL III Diagnosis: ACUTE SINUSITIS[ICD9: 461.9] Diagnosis: COUGH[ICD9: 786.2] Mira Ledesma MD, [facility] CPT-4: 63282 06/09/2013 12339 EST. PATIENT, LEVEL IV Diagnosis: HEADACHE[ICD9: 784.0] Diagnosis: Dysphagia[ICD9: 787.20] Diagnosis: Esophageal reflux[ICD9: 530.81] Caty Ledesma MD, [facility] CPT- 4: 18154 04/20/2013 ([id number]) 53085 EST. PATIENT, LEVEL IV Diagnosis: Seasonal allergic rhinitis[ICD9: 477.9] Diagnosis: HEADACHE[ICD9: 784.0] Diagnosis: ESSENTIAL HYPERTENSION[SNOMED: 19138545] Caty Ledesma MD, [facility] CPT-4: 19903 03/23/2013 ([id number]) 24107 EST. PATIENT, LEVEL III Diagnosis: ABNORMALITY OF GAIT[ICD9: 781.2] Diagnosis: B-COMPLEX DEFIC NEC[ICD9: 266.2] Caty Ledesma MD, [facility] CPT-4: 04782 01/21/2013 ([id number]) 51459 EST. PATIENT, LEVEL IV Diagnosis: ESSENTIAL HYPERTENSION[SNOMED: 88392295] Diagnosis: Breast pain[ICD9: 611.71] [facility] CPT-4: 05250 12/25/2012 ([id number]) 26923 EST. PATIENT, LEVEL III Diagnosis: ESSENTIAL HYPERTENSION[SNOMED: 57771952] Diagnosis: ACUTE URI[ICD9: 465.9] [facility] CPT-4: 52908 10/20/2012 ([id number]) 89799 EST. PATIENT, LEVEL IV Diagnosis: B-COMPLEX DEFIC NEC[ICD9: 266.2] Diagnosis: ESSENTIAL HYPERTENSION[SNOMED: 13241230] Diagnosis: Gait instability[ICD9: 781.2] Diagnosis: Back pain[ICD9: 724.5] [facility] CPT-4: 52958 08/11/2012 OFFICE VISIT, NEW - LEVEL 4 Diagnosis: ESSENTIAL HYPERTENSION[SNOMED: 46974875] Diagnosis: ACUTE SINUSITIS[ICD9: 461.9] Diagnosis: Gait instability[ICD9: 781.2] Diagnosis: Weakness of both legs[ICD9: 729.89] [facility] CPT-4: 68651 07/10/2012 Plan of Care Planned Activity Notes [...] of pristiq 08/06/2018 Appointment: Cat[facility] Led[facility]el[facility] (15 min) Moderate 08/06/2018 Patient Education: Patient Medication Summary Completed 08/06/2018 Patient Education: Patient Medication Summary Completed 07/09/2018 Care Plan: SCREENINGMAMMOGRAPHYDIGITAL LOINC : 27589-7 Pending 07/09/2018 Visit Plan: Hypertension - well [...] decreased dosing. 07/08/2018 Appointment: [facility]el[phone] [facility] (15 min) Moderate 07/08/2018 Patient Education: [...] to medications. 02/11/2018 Appointment: [facility]el[facility] [phone] [facility] [place] (15 min) Moderate 02/11/2018 Patient [...] daily. 11/12/2017 Appointment: [facility]el[phone] [facility] [place] (15 min) Moderate 11/12/2017 Patient [...] healing well. 08/20/2017 Appointment: [facility]Ptel[phone] [facility] [place] (15 min) Moderate 08/20/2017 Patient [...] Dr Weaver 06/24/2017 Appointment: [facility] Valladares [facility]el[phone] [place] (30 min) Complex 06/24/2017 Patient Education: [...] less controlled. 05/22/2017 Appointment: Caty Ledesma WPtel: [phone] [facility] (15 min) Moderate 05/22/2017 Patient Education: Patient Medication Summary Completed 05/22/2017 Visit Plan: Sinusitis - Pt has acute infection - pain in face, maxillary region, Pt informed to use decongestant, RX given to patient, sinus rinses also recommended. Call if symptoms do not show improvement. 05/10/2017 Appointment: Mira Valladares WPtel: [phone] [phone] (15 min) Moderate 05/10/2017 Patient Education: Patient Medication Summary Completed 05/10/2017 Visit Plan: Fatigue - daytime - recommended sleep study, change pristiq to night-time dosing. Sleep study to be scheduled - RX for sleep study sent to hospital. - pt has significant sleepiness during the day - she had a score of 17 on epiworth sleepiness scale. 04/08/2017 Appointment: Cat[facility] Led[facility]Ptel[phone] [facility] (15 min) Moderate 04/08/2017 Patient Education: Patient [...] ultrasound. 02/20/2017 Appointment: Cat[facility] Led[facility]Ptel[facility] [phone] [facility] (30 min) Complex 02/20/2017 Patient Education: Patient [...] my patient. 11/21/2016 Appointment: Cat[facility] Led[facility]Ptel[facility] [phone] [facility] (15 min) Moderate 11/21/2016 Patient Education: [...] not improving. 08/29/2016 Appointment: Cat[facility] Led[facility]Ptel[facility] [phone] [facility] (30 min) Complex 08/29/2016 Patient Education: Patient Medication Summary Completed 08/29/2016 Patient Education: Hypertension Completed 08/29/2016 Visit Plan: referral to dr. aburto for cysts of right abdomen near ribs 07/05/2016 Appointment: Caty Ledesma WPtel: [facility] (15 min) Moderate 07/05/2016 Patient Education: Patient [...] stomach pain. 06/04/2016 Appointment: Estrella Bynum WPtel: [facility] (15 min) Moderate 06/04/2016 Patient Education: Patient [...] of plan. 04/10/2016 Appointment: Mira Valladares [facility]Ptel[phone] [place] (30 min) Complex 04/10/2016 Patient Education: Patient [...] 12/26/2015 Care Plan: Referral Order SNOMED-CT : [id number] Pending 12/26/2015 Appointment: Caty Ledesma WPtel[facility] [phone] [facility] [place] (15 min) Moderate 12/19/2015 Visit Plan: [...] to keep appt with Dr. Kwon in [place] for treatment of varicose veins. 08/16/2015 Patient [...] of over-medication. 05/10/2015 Appointment: Caty Ledesma WPtel: [address] [place], [place] [address] Follow up 05/10/2015 Patient Education: Patient Medication [...] veins - referral to Vascular team from [facility] 01/17/2015 Appointment: Caty Led[facility]ma WPtel[facility] [phone] [facility] [place] Follow up 01/17/2015 Patient Education: Patient Medication Summary Completed 01/17/2015 Patient Education: Hypertension Completed 01/17/2015 Care Plan: Referral Order referral to [facility] for varicose veins - need to see if the patient can have her ultrasound studies HERE with [employer] SNOMED-CT : [id number] Ordered 01/17/2015 Appointment: Caty Ledesma WPtel[facility] [phone] [facility] [place] Follow up 01/04/2015 Visit Plan: Worsening qhybgzjk-qjvekw-zzrc injury 1 week ago-recommend CT head due [...] three weeks. 10/27/2014 Appointment: Caty Ledesma WPtel: [facility] Follow up 10/27/2014 Patient Education: Patient [...] the nasal steroid allergy spray. Elevated blood dqoxvb-gitvqumgy-vblqcd-check Hgb A1c as well as TSH Vitamin D deficiency-check vitamin D level 10/15/2014 Appointment: Follow up 10/15/2014 Patient Education: Patient Medication Summary Completed 10/15/2014 Care Plan: TSH Pending 10/15/2014 Care Plan: A1C HPLC [facility] : 70607-8 Pending 10/15/2014 Care Plan: VIT D TOTL [...] stomach pain. 09/30/2014 Appointment: Caty Ledesma WPtel[facility] [phone] [facility] Follow up 09/30/2014 Patient Education: Patient Medication Summary Completed 09/30/2014 Patient Education: Hypertension Completed 09/30/2014 Appointment: Caty Ledesma WPtel: [facility] Follow up 09/29/2014 Visit Plan: Nausea - [...] at home. 07/14/2014 Appointment: Caty Ledesma WPtel: [facility] Follow up 07/14/2014 Patient Education: Patient Medication [...] medical problems. check labs. 06/23/2014 Appointment: Caty Ledesmatel: [phone] [facility] Follow up 06/23/2014 Patient Education: Patient Medication [...] are worsening. 03/16/2014 Appointment: Caty Ledesma WPtel: [facility] Follow up 03/16/2014 Patient Education: Patient Medication [...] allergy spray. 01/12/2014 Appointment: Caty Ledesma WPtel: [phone] [facility] [place] Follow up 01/12/2014 Patient Education: Patient Medication [...] Fatigue-check labs 12/15/2013 Appointment: Mira Valladares WPtel: [phone] [facility] [place] [address] Follow up 12/15/2013 Patient Education: Patient Medication [...] - on scalp - referral to her still cleaner tube - Dr. Teran. Recommended pt to call for appt. Raynaud - very mild case - pt to continue with norvasc, monitor symptoms, keep hands warm, call if symptoms worsen, if fingers turn and stay persistently purple, will consider topical treatments versus increase in norvasc. 10/20/2013 Appointment: Caty Ledesma WPtel: [facility] Follow up 10/20/2013 Patient Education: Patient Medication Summary Completed 10/20/2013 Patient Education: Hypertension Completed 10/20/2013 Visit Plan: Sinusitis - Pt has acute infection - pain in face, maxillary region, Pt informed to use decongestant, RX given to patient, sinus rinses also recommended. Call if symptoms do not show improvement. 09/15/2013 Appointment: Caty Ledesma WPtel: [facility] [place] Sick 09/15/2013 Patient Education: Patient Medication Summary [...] tolerance test. 07/27/2013 Appointment: Caty Ledesma WPtel: [facility] Follow up 07/27/2013 Patient Education: Patient Medication Summary Completed 07/27/2013 Patient Education: Hypertension Completed 07/27/2013 Visit Plan: Sinusitis - Pt has acute infection - pain in face, maxillary region, Pt informed to use decongestant, RX given to patient, sinus rinses also recommended. Call if symptoms do not show improvement. 06/09/2013 Appointment: Mira Valladares WPtel: [phone] Sick 06/09/2013 Patient Education: Patient Medication Summary [...] and pepcid 04/20/2013 Appointment: Mira Valladares WPtel: [phone] [phone] Other 04/20/2013 Patient Education: Patient Medication Summary [...] at home. 03/23/2013 Appointment: Caty Ledesma WPtel: [facility] Follow up 03/23/2013 Patient Education: Patient Medication Summary Completed 03/23/2013 Patient Education: Hypertension Completed 03/23/2013 Visit Plan: Gait abnormality with falling at home and hitting head - suspect concussion - recommend that Stephanie see Jose Luis at [facility] for balance and gait training. B12 deficiency - improved with b12 shots, will have patient go back to every 2 week injections instead of weekly injections. 01/21/2013 Appointment: Caty Ledesma WPtel: [phone] [facility] [place] Follow up 01/21/2013 Patient Education: [...] have mammo. 12/25/2012 Appointment: Caty Ledesma WPtel: [facility] Follow up 12/25/2012 Patient Education: Patient [...] clinic today. 10/20/2012 Appointment: Caty Ledesma WPtel: [facility] Follow up 10/20/2012 Patient Education: Patient Medication Summary Completed 10/20/2012 Patient Education: Hypertension Completed 10/20/2012 Appointment: Cat[facility] Led[facility]ma WPtel[facility] [phone] [facility] [place] Injection 09/11/2012 Patient Education: Patient Medication Summary Completed 09/11/2012 Appointment: Cat[facility] Led[facility]ma WPtel[facility] [phone] [facility] [place] Injection 08/18/2012 Visit Plan: Hypertension [...] surgeon. 08/11/2012 Appointment: Caty Ledesma WPtel: [phone] [facility] Follow up 08/11/2012 Patient Education: Patient Medication Summary Completed 08/11/2012 Patient Education: Hypertension Completed 08/11/2012 Appointment: Cat[facility] Led[facility]ma WPtel: [phone] [facility] [place] Injection 07/21/2012 Patient Education: Patient [...] d level. 07/10/2012 Appointment: Mira Valladares [facility]Ptel[phone] [place] New Patient 07/10/2012 Patient Education: Patient Medication Summary Completed 07/10/2012 Patient Education: High Blood Pressure: Essential Hypertension Completed 2011 Referral: Blaise Aburto Info. faxed Completed Referral: Blaise Aburto Referral Appointment Requested Referral: [facility], - Referral Appointment Requested Instructions Comment . Worsening fsbdrwoq-pthlmo-hcep injury 1 week ago- recommend CT head due to worsening symptoms and concern for subdural hematoma- patient sent to the hospital for STAT CT. Neck pain-recent fall-xray cervical spine-increase hydrocodone to 10mg/325mg- may consider physical therapy if xray negative for acute injury as patient is experiencing significant neck pain and headache. . Paronychia-left great toe-culture of toe today in the office-use bactroban ointment as directed-call if symptoms do not resolve or if any worse. Patient verbalized understanding of plan. Hold Aspirin, Lovaza, Antara, and Zetia for [...] at the end of the three weeks. Aleve twice daily x 10 days . [...] the nasal steroid allergy spray. Elevated blood yjpqzp-wufbwuhtb-kyjlql-check Hgb A1c as well as TSH Vitamin D deficiency-check vitamin D level . Paronychia-left great toe-culture of toe today [...] of 17 on epiworth sleepiness scale. . Hypertension - well controlled - continue [...] worsening of stomach upset or stomach pain. We will check labs and X-Ray today. [...] in blood pressure readings at home. . Diarrhea, left upper quadrant pain, left [...] on lower abdomen - healing well. . URI - Pt advised to increase [...] acid diet, call if symptoms not improving. decrease the topiramate to 1.5 pills twice [...] has declined to see a surgeon. . Allergies - chronic - recommended pt [...] for full work up and recs. . Sinusitis - Pt has acute infection [...] Call if symptoms do not show improvement. stop the pantoprazole stop aspirin use over [...] to keep appt with Dr. Kwon in [place] for treatment of varicose veins. . Hypertension - well controlled - continue [...] were answered, pt has chronic allergy symptoms . Sinusitis - Pt has acute infection - pain in face, maxillary region, Pt informed to use decongestant, RX given to patient, sinus rinses also recommended. Call if symptoms do not show improvement. Patient medically cleared for surgery with Dr Weaver . Hypertension - well controlled - continue [...] needs to call if symptoms are worsening. reflex sympathetic dystrophy restart questran take a [...] for cysts of right abdomen near ribs continue mucinex and zyrtec add flonase if [...] veins - referral to Vascular team from [facility] . Hypertension - well controlled - continue with current medications, continue with no added salt diet. Pt has been encouraged to exercise daily. The pt has been advised to call the office if there are any acute concerns about change in blood pressure readings at home. Chronic fatigue and chronic pain syndrome- from chronic illness - no change in current management Will send Keflex Will call out phenergan [...] recommend that Stephanie see Jose Luis at [facility] for balance and gait training. B12 [...] - on scalp - referral to her still cleaner tube - Dr. Teran. Recommended pt to call for appt. Raynaud - very mild case - pt to continue with norvasc, monitor symptoms, keep hands warm, call if symptoms worsen, if fingers turn and stay persistently purple, will consider topical treatments versus increase in norvasc. EKG, Chest xray, CBC, CMP, cardiac analyzers . HTN-well controlled no changes Costochondritis-chest pain-patient sent for STAT chest xray and cardiac analyzers-instructed her to take anti inflammatories as directed and call if symptoms do not resolve, or if any worse. GERD-restart carafate QID-continue with PPI . Esophageal Reflux - the patient has been counseled against excessive intake of caffeine, spicy foods, peppermint, and cinnamon - all of which can exacerbate esophageal reflux. The patient is to take medications as prescribed and call the office if the symptoms are not improving. RESTART NASAL SPRAY TWICE DAILY CHECK BLOOD [...]
--- OUTSIDE RECORDS SUMMARY | 2019-01-07 08:19 | XMS REPORT | CCD ---
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 Phone PP Unavailable CCM Unavailable Summary Purpose Interface Exchange Insurance Providers Payer name Policy type / Coverage type Covered green party ID Effective Begin Date Effective End Date [facility] Commercial Insurance [id number] 2013 Unknown [place]PS Medicare Part B Commercial Insurance [id number] 2013 Unknown Family history Daughter Diagnosis Age [...] status Unknown 03/26/[address]: 1438211 Former smoker quit 1979 03/26/2016 Number of children Unknown 3 07/10/[address]: 110508103 Never drinks alcohol 07/10/2012 Has the patient ever used illegal drugs? Unknown Has never used illegal drugs 07/10/2012 Allergies, Adverse Reactions, Alerts Substance Reaction Codes Entered Date Inactivated Date Status cymbalta RxNorm: 357284 07/14/2012 No Inactive Date Active Savella nausea RxNorm: 771547 07/14/2012 No Inactive Date Active Metanx nausea RxNorm: 566486 07/14/2012 No Inactive Date Active Gluten Unknown 07/10/2012 No Inactive Date Active Peanuts Unknown 07/10/2012 No Inactive Date Active Levaquin hives RxNorm: 23801 07/14/2012 No Inactive Date Active macrobid pruritis, hives, RxNorm: 414874 07/14/2012 No Inactive Date Active percocet pruritis RxNorm: 406204 07/14/2012 No Inactive Date Active PREDNISONE pruritis, RxNorm: 8640 07/14/2012 No Inactive Date Active ultram pruritis, hives RxNorm: 58285 06/11/2016 No Inactive Date Active GABAPENTIN nausea, [...] Start Date Stop Date Status Fill Instructions Vitamin B-12 1,000 mcg/mL injection solution RxNorm: 540782 INJECT 1 ML INTRAMUSCULARLY ONCE WEEKLY 08/29/2018 Active amlodipine 5 mg tablet RxNorm: 266916 1 Tablet(s) PO daily 11/19/2019 Active topiramate 100 mg tablet RxNorm: 077159 1/2 Tablet(s) PO BID 08/04/2019 Active [SAVINGS FOR UNINSURED PATIENTS -- BIN:[id number], PCN: ASPROD1, Group: [id number], ID# [id number], Process claim through IMScouting, for questions: . THIS IS NOT INSURANCE.] Pristiq 50 mg tablet,extended release RxNorm: 261586 1 Tablet(s) PO BID 08/06/2018 07/31/2019 Active amlodipine 10 mg tablet RxNorm: 645051 1/2 Tablet(s) PO daily 08/06/2018 08/26/2018 Inactive Voltaren 1 % topical gel RxNorm: 844340 APPLY 2 GRAMS TOPICALLY FOUR TIMES A DAY 07/24/2018 10/31/2018 Active Fish Oil 1,000 mg capsule RxNorm: 1 Capsule(s) PO TID 201707/02/2019 Active Valium 5 mg tablet RxNorm: 238213 1 Tablet(s) PO PRN as needed 07/08/2018 No Stop Date Active Vagifem 10 mcg vaginal tablet RxNorm: 397797 1 Tablet(s) VAG daily 07/08/2018 No Stop Date Active naproxen sodium 550 mg tablet RxNorm: 999395 Tablet(s) as needed TAKE 1 TABLET BY MOUTH TWO TIMES DAILY 07/08/20182018 Active - Ref: [id number] Pristiq 100 mg tablet,extended release RxNorm: 224810 1 Tablet(s) PO daily 07/08/2018 08/05/2018 Inactive Voltaren 1 % topical gel RxNorm: 797466 APPLY 2 GRAMS TOPICALLY FOUR TIMES A DAY 07/08/2018 07/23/2018 Inactive topiramate 100 mg tablet RxNorm: 095402 1 Tablet(s) PO BID 08/05/2018 Inactive [SAVINGS FOR UNINSURED PATIENTS -- BIN:[id number], PCN: ASPROD1, Group: [id number] , ID# [id number], Process claim through IMScouting, for questions: . THIS IS NOT INSURANCE.] Valium 5 mg tablet RxNorm: 466283 1 Tablet(s) PO PRN as needed 06/24/2018 07/07/2018 Inactive folic acid 1 mg tablet RxNorm: 656091 TAKE ONE TABLET BY MOUTH EVERY DAY 05/27/2018 04/21/2019 Active Valium 5 mg tablet RxNorm: 847788 1 Tablet(s) PO PRN as needed 02/21/2018 No Stop Date Active Valium 5 mg tablet RxNorm: 388169 1 Tablet(s) PO PRN as needed 11/12/2017 02/20/2018 Inactive Synthroid 25 mcg tablet RxNorm: 859508 1 Tablet(s) PO daily 02/201811/11/2017 Inactive Synthroid 25 mcg tablet RxNorm: 682093 1 Tablet(s) PO daily 02/201802/10/2018 Inactive Nitro-Bid 2 % transdermal ointment RxNorm: 051319 APPLY TO AFFECTED AREA(S) TOPICALLY THREE TIMES A DAY NEEDED FOR RAYNAUDS SYMPTOMS OF FEET 08/26/2017 10/24/2017 Inactive Vitamin B-12 1,000 mcg/mL injection solution RxNorm: 215543 INJECT 1ML INTRAMUSCULARLY ONCE WEEKLY 08/23/2017 Inactive Request already responded to by other means (e.g. phone or fax) Vitamin B-12 1,000 mcg/mL injection solution RxNorm: 653586 Milliliter(s) INJECT 1ML INTRAMUSCULARLY ONCE WEEKLY 08/21/2017 08/22/2017 Inactive naproxen sodium 550 mg tablet RxNorm: 345772 TAKE 1 TABLET BY MOUTH TWO TIMES DAILY 08/09/2017 11/06/2017 Inactive - Ref: [id number] Combivent Respimat 20 mcg-100 mcg/actuation solution for inhalation RxNorm: 9537283 1-2 Puff(s) INH Q4 PRN 07/26/2017 No Stop Date Active Valium 5 mg tablet RxNorm: 534958 1 Tablet(s) PO PRN as needed 06/27/2017 11/11/2017 Inactive doxycycline hyclate 100 mg tablet RxNorm: 511865 1 Tablet(s) PO BID 06/24/2017 06/30/2017 Inactive azithromycin 250 mg tablet RxNorm: 554768 1 Tablet(s) PO UD 2 tabs on day #1, then 1 pill daily x 4 more days 05/22/2017 08/20/2017 Inactive hydrocodone 10 mg-chlorpheniramine 8 mg/5 mL oral susp extend.rel 12hr RxNorm: 2056844 5 PO as needed 05/10/20172017 Inactive Augmentin 875 mg-125 mg tablet RxNorm: 371944 1 Tablet(s) PO BID 05/10/2017 05/16/2017 Inactive folic acid 1 mg tablet RxNorm: 136865 TAKE ONE TABLET BY MOUTH EVERY DAY 05/09/2017 05/03/2018 Inactive Carafate 1 gram tablet RxNorm: 230076 TAKE ONE TABLET BY MOUTH FOUR TIMES A DAY 30 MINUTES BEFORE MEALS AND AT BEDTIME 03/18/2017 07/07/2018 Inactive scopolamine 1.5 mg transdermal patch (1 mg over 3 days) RxNorm: 818105 1 Patch TD Q72H use for sea sickness 02/20/201703/05 Inactive Pristiq 50 mg tablet,extended release RxNorm: 649967 1 Tablet(s) PO daily 01/15/2017 07/07/2018 Inactive Pristiq 50 mg tablet,extended release RxNorm: 765572 1 Tablet(s) PO BID 12/20/2016 01/14/2017 Inactive naproxen sodium 550 mg tablet RxNorm: 647909 Tablet(s) Take 1 tablet by mouth twice a day 11/14/2016 08/08/2017 Inactive [place] Lancets 33 gauge RxNorm: TEST TWO TIMES A DAY 11/12/2016 04/10/2017 Inactive Phenergan VC-Codeine 6.25 mg-5 mg-10 mg/5 mL syrup RxNorm: 059304 5 Milliliter(s) PO Q6 as needed cough 09/06/20162016 Inactive Nitro-Bid 2 % transdermal ointment RxNorm: 415827 APPLY TO AFFECTED AREA(S) TOPICALLY THREE TIMES A DAY NEEDED FOR RAYNAUDS SYMPTOMS OF FEET 08/21/2016 10/19/2016 Inactive Voltaren 1 % topical gel RxNorm: 301622 APPLY 2 GRAMS TOPICALLY FOUR TIMES A DAY 08/21/2016 12/22/2016 Inactive Vitamin B-12 1,000 mcg/mL injection solution RxNorm: 617876 INJECT 1ML INTRAMUSCULARLY ONCE WEEKLY 08/21/2016 Inactive folic acid 1 mg tablet RxNorm: 376683 TAKE ONE TABLET BY MOUTH EVERY DAY 08/13/2016 04/09/2017 Inactive Flagyl 500 mg tablet RxNorm: 427596 1 Tablet(s) PO TID 201506/22/2016 Inactive Cholestyramine Light 4 gram oral powder RxNorm: 613209 1 packet PO PRN as needed 06/11/2016 No Stop Date Active Flexeril 10 mg tablet RxNorm: 962648 1 Tablet(s) PO as needed 02/19/2017 Inactive 1 hs Vagifem 10 mcg vaginal tablet RxNorm: 088385 1 Tablet(s) VAG BIW -TIW 06/11/2016 07/07/2018 Inactive Flagyl 500 mg tablet RxNorm: 787700 1 Tablet(s) PO TID 201506/10/2016 Inactive Lomotil 2.5 mg-0.025 mg tablet RxNorm: 6277801 1 Tablet(s) PO AC & HS as needed 04/24/2016 05/23/2016 Inactive Keflex 500 mg capsule RxNorm: 801264 1 Capsule(s) PO TID 201504/11/2016 Inactive Keflex 500 mg capsule RxNorm: 402637 1 Capsule(s) PO TID 201504/18/2016 Inactive Pristiq 50 mg tablet,extended release RxNorm: 976949 1 Tablet(s) PO QAM 03/30/2016 12/19/2016 Inactive amitriptyline 25 mg tablet RxNorm: 506708 1/2 Tablet(s) PO QHS x [address] pablo 03/30/2016 06/10/2016 Inactive potassium chloride 20 mEq/15 mL oral liquid RxNorm: 000377 TAKE 2 TABLESPOONS DAILY 03/23/2016 09/18/2016 Inactive Glucocard Vital Sensor strips RxNorm: TEST TWO TIMES A DAY 10/17/2017 Inactive Questran 4 gram oral powder RxNorm: 949000 1 dose PO daily 04/201602/14/2016 Inactive Questran 4 gram oral powder RxNorm: 726295 1 dose PO daily 04/201603/15/2016 Inactive Miralax 17 gram oral powder packet RxNorm: 364361 1 PO daily 02/08/2016 Inactive Miralax 17 gram oral powder packet RxNorm: 910587 1 PO daily 06/10/2016 Inactive Carafate 1 gram tablet RxNorm: 788476 1 Tablet(s) PO QID take 30 minutes before meals and at bedtime 01/23/20162015 Inactive Vitamin D2 50,000 unit capsule RxNorm: 078364 1 Capsule(s) PO QW 12/26/2015 03/24/2016 Inactive Tamiflu 75 mg capsule RxNorm: 459390 1 Capsule(s) PO daily 11/2111/21/2015 Inactive Tamiflu 75 mg capsule RxNorm: 270299 1 Capsule(s) PO daily 11/2112/01/2015 Inactive folic acid 1 mg tablet RxNorm: 969613 TAKE ONE TABLET BY MOUTH EVERY DAY 11/03/2015 07/29/2016 Inactive Keflex 500 mg capsule RxNorm: 300679 1 Capsule(s) PO TID 201511/11/2015 Inactive Augmentin 500 mg-125 mg tablet RxNorm: 496664 1 Tablet(s) PO TID 09/13/2015 09/22/2015 Inactive Zithromax Z-Juanpablo 250 mg tablet RxNorm: 201155 1 Tablet(s) PO 12/25/2015 Inactive OneTouch Delica Lancets 33 gauge RxNorm: 1 test Miscellaneous BID 06/21/2015 06/14/2016 Inactive Nitro-Bid 2 % transdermal ointment RxNorm: 667192 1 Application TD TID as needed raynauds symptoms of feet 06/01/201508/29 Inactive Vitamin B-12 1,000 mcg/mL injection solution RxNorm: 541649 INJECT 1ML INTRAMUSCULARLY ONCE WEEKLY 05/16/201503/2016 Inactive Voltaren 1 % topical gel RxNorm: 032003 2 Gram(s) TOP QID 05/1007/08/2015 Inactive potassium chloride 20 mEq/15 mL oral liquid RxNorm: 726309 TAKE 2 TABLESPOONS DAILY 04/22/2015 10/18/2015 Inactive naproxen sodium 550 mg tablet RxNorm: 103468 Tablet(s) Take 1 tablet by mouth twice a day 03/10/2015 06/01/2016 Inactive naproxen sodium 550 mg tablet RxNorm: 702385 Take 1 tablet by mouth twice a day 03/09/2015 11/15/2016 Inactive 2nd Attempt Pristiq 50 mg tablet,extended release RxNorm: 424588 1 Tablet(s) PO BID 03/09/2015 03/08/2015 Inactive naproxen sodium 550 mg tablet RxNorm: 895398 1 Tablet(s) PO BID 03/09/2015 03/08/2015 Inactive naproxen sodium 550 mg tablet RxNorm: 501233 Take 1 tablet by mouth twice a day 03/09/2015 03/09/2015 Inactive Pristiq 50 mg tablet,extended release RxNorm: 031475 Take 1 tablet twice a day 03/09/2015 03/29/2016 Inactive folic acid 1 mg tablet RxNorm: 903218 TAKE ONE TABLET BY MOUTH EVERY DAY 01/17/2015 11/02/2015 Inactive Vitamin B-12 1,000 mcg/mL injection solution RxNorm: 447966 INJECT 1 MLS DIRECTED ONCE WEEKLY 12/03/20142015 Inactive hydrocodone 10 mg-acetaminophen 325 mg tablet RxNorm: 538740 1 Tablet(s) PO Q6 PRN 11/22/2014 12/21/2014 Inactive [SAVINGS FOR NON-COVERED DRUGS -- BIN:[id number], PCN: ASPROD1, Group: XXXXX, ID# [id number], Questions: . THIS IS NOT INSURANCE.] ceftriaxone 1 gram solution for injection RxNorm: 0308617 Inj 11/11/2014 11/11/2014 Inactive [SAVINGS FOR NON-COVERED DRUGS -- BIN:[id number], PCN: ASPROD1, Group: XXXXX, ID# [id number], Questions: . THIS IS NOT INSURANCE.] Glucocard Vital Sensor strips RxNorm: 1 test Miscellaneous BID 10/27/2014 10/26/2014 Inactive DX code 790.29 Glucocard Vital Sensor strips RxNorm: 1 test Miscellaneous BID 10/27/2014 11/20/2015 Inactive DX code 790.29 [SAVINGS FOR UNINSURED PATIENTS -- BIN:333970, PCN: ASPROD1, Group: [id number], ID# [id number], Process claim through IMScouting, for questions: . THIS IS NOT INSURANCE.] topiramate 100 mg tablet RxNorm: 354978 2 Tablet(s) PO BID 04/27/2015 Inactive [SAVINGS FOR UNINSURED PATIENTS -- BIN:432671, PCN: ASPROD1, Group: [id number] , ID# [id number], Process claim through MedImpact, for questions: . THIS IS NOT INSURANCE.] Cholestyramine Susp Light 4 gram powder for susp in a packet RxNorm: 374983 packet PO PRN as needed 08/30/20142015 Inactive Nitro-Bid 2 % transdermal ointment RxNorm: 785439 1 Application TD TID as needed raynauds symptoms of feet 07/14/201410/11 Inactive Flonase 50 mcg/actuation nasal spray,suspension RxNorm: 813586 PLACE 2 SPRAYS IN EACH NOSTRIL DAILY 05/25/2014 08/22/2014 Inactive potassium chloride 20 mEq/15 mL oral liquid RxNorm: 039868 2 Tablespoon(s) PO daily 04/20/2014 04/21/2015 Inactive potassium chloride 10 % oral liquid RxNorm: 552161 2 Tablespoon(s) PO daily 04/20/2014 04/19/2014 Inactive potassium chloride 10 % oral liquid RxNorm: 594103 2 Tablespoon(s) PO daily 04/09/2014 04/19/2014 Inactive folic acid 1 mg tablet RxNorm: 148360 Tablet(s) PO TAKE ONE TABLET BY MOUTH EVERY DAY 02/15/2014 No Stop Date Active folic acid 1 mg tablet RxNorm: 497614 Tablet(s) PO TAKE ONE TABLET BY MOUTH EVERY DAY 02/15/2014 01/16/2015 Inactive folic acid 1 mg tablet RxNorm: 804857 1 Tablet(s) PO daily TAKE ONE TABLET BY MOUTH EVERY DAY 02/15/2014 02/14/2014 Inactive Flonase 50 mcg/actuation nasal spray,suspension RxNorm: 540302 1 [place] NASAL BID 01/12/2014 08/09/2014 Inactive topiramate 100 mg tablet RxNorm: 082288 1.5 Tablet(s) PO BID 08/09/2014 Inactive amoxicillin 500 mg capsule RxNorm: 413662 1 Capsule(s) PO TID 12/24/2013 12/30/2013 Inactive amoxicillin 500 mg capsule RxNorm: 118222 1 Capsule(s) PO TID 12/24/2013 12/23/2013 Inactive Pristiq 50 mg tablet,extended release RxNorm: 080573 1 Tablet(s) PO BID 12/01/2013 02/23/2015 Inactive Vitamin B-12 1,000 mcg/mL injection solution RxNorm: 175067 1 Milliliter(s) Inj QW 11/10/2013 11/09/2013 Inactive Vitamin B-12 1,000 mcg/mL injection solution RxNorm: 285113 1 Milliliter(s) Inj QW 11/10/2013 12/02/2014 Inactive Myrbetriq 25 mg tablet,extended release RxNorm: 4383277 1 Tablet(s) PO daily 10/20/2013 08/16/2014 Inactive fluconazole 150 mg tablet RxNorm: 494630 1 Tablet(s) PO daily 09/15/2013 09/19/2013 Inactive amoxicillin 875 mg-potassium clavulanate 125 mg tablet RxNorm: 442049 1 Tablet(s) PO BID 09/15/2013 09/24/2013 Inactive Pristiq 50 mg tablet,extended release RxNorm: 097473 1 Tablet(s) PO BID 07/30/2013 11/30/2013 Inactive Topamax 25 mg tablet RxNorm: 092577 4 Tablet(s) PO BID 201201/11/2014 Inactive vitamin B12 200mcg [place], Suspension RxNorm: 1 [place] PO daily 07/27/2013 12/25/2015 Inactive Flonase 50 mcg/actuation nasal spray,suspension RxNorm: 567660 2 [place] NASAL daily 06/09/2013 07/08/2013 Inactive Carafate 1 gram tablet RxNorm: 880700 1 Tablet(s) PO ac and hs 05/07/2013 05/06/2013 Inactive Carafate 1 gram tablet RxNorm: 615311 1 Tablet(s) PO ac and hs 05/07/2013 05/31/2014 Inactive potassium chloride 10 % Oral Liquid RxNorm: 459143 1 Tablespoon(s) PO daily 03/23/2013 04/08/2014 Inactive folic acid 1 mg tablet RxNorm: 362913 Tablet(s) PO TAKE ONE TABLET BY MOUTH EVERY DAY 01/29/2013 02/14/2014 Inactive naproxen sodium 550 mg tablet RxNorm: 421698 1 Tablet(s) PO BID 01/21/2013 10/26/2014 Inactive hydrocodone 5 mg-acetaminophen 500 mg tablet RxNorm: 626461 1 Tablet(s) PO Q8 PRN 12/25/2012 02/19/2017 Inactive folic acid 1 mg tablet RxNorm: 075420 1 Tablet(s) PO daily 01/28/2013 Inactive cyanocobalamin (vitamin B-12) 1,000 mcg/mL Injection RxNorm: 718485 1 Milliliter(s ) Inj 2 x month inject 1 mL every other week intramuscularly 11/03/2012 11/02/2012 Inactive please provide 25 gauge syringes as well. cyanocobalamin (vitamin B-12) 1,000 mcg/mL Injection RxNorm: 377232 Milliliter(s) Inj 11/03/2012 11/03/2012 Inactive cyanocobalamin (vitamin B-12) 1,000 mcg/mL Injection RxNorm: 544200 1 Milliliter(s ) Inj 2 x month inject 1 mL every other week intramuscularly 11/03/2012 12/25/2015 Inactive please provide 25 gauge syringes as well. cyanocobalamin (vitamin B-12) 1,000 mcg/mL Injection RxNorm: 145832 1 Milliliter(s ) Inj 10/20/2012 10/20/2012 Inactive Vitamin B-12 1,000 mcg/mL Injection RxNorm: 709752 1 Milliliter(s) Inj 09/11/2012 09/11/2012 Inactive Zithromax Z-Juanpablo 250 mg tablet RxNorm: 006547 Tablet(s) PO UD 12/24/2012 Inactive please give z juanpablo hydrochlorothiazide 25 mg tablet RxNorm: 870916 1/2 Tablet(s) PO daily 08/11/2012 No Stop Date Active Vitamin B-12 1,000 mcg/mL Injection RxNorm: 789860 Milliliter(s) Inj 08/11/2012 08/11/2012 Inactive Vitamin D2 50,000 unit capsule RxNorm: 915029 Capsule(s) PO one weekly for 8 weeks then resume her daily dosing 07/21/2012 07/20/2012 Inactive Vitamin B-12 1,000 mcg/mL Injection RxNorm: 680258 Milliliter(s) Inj 07/21/2012 07/21/2012 Inactive Vitamin D2 50,000 unit capsule RxNorm: 672434 Capsule(s) PO one weekly for 8 weeks then resume her daily dosing 07/21/2012 09/18/2012 Inactive Diflucan 150 mg tablet RxNorm: 612473 1 Tablet(s) PO daily 09/201107/12/2012 Inactive HyoMax-SR 0.375 mg tablet,extended release RxNorm: 0391518 Tablet(s) PO PRN No Start Date Active Maxalt-RECRUITING COORDINATOR 10 mg disintegrating tablet RxNorm: 718092 Tablet(s) PO PRN No Start Date Active Vitamin D3 2,000 unit tablet RxNorm: 061201 1 Tablet(s) PO daily No Start Date Active potassium chloride 20 mEq/15 mL oral liquid RxNorm: 559139 2 Tablespoon(s) PO daily No Start Date Active Zetia 10 mg tablet RxNorm: 255296 1 Tablet(s) PO QPM No Start Date Active metoprolol tartrate 50 mg tablet RxNorm: 359211 1 Tablet(s) PO BID No Start Date Active biotin 2,500 mcg tablet RxNorm: 454119 1 Tablet(s) PO daily No Start Date Active Zyrtec 10 mg tablet RxNorm: 0686925 1 Tablet(s) PO PRN No Start Date Active Praluent Pen 75 mg/mL subcutaneous pen injector RxNorm: 5424538 1 Milliliter(s) SQ Q 2 weeks No Start Date Active Fioricet oral RxNorm: 287101 oral No Start Date Active Cholestyramine Susp Light 4 gram Packet RxNorm: 882352 packet PO PRN No Start Date 08/29/2014 Inactive Pristiq 50 mg tablet,extended release RxNorm: 112173 1 Tablet(s) PO daily No Start Date 07/29/2013 Inactive Topamax 25 mg tablet RxNorm: 164815 3 Tablet(s) PO BID No Start Date 07/29/2013 Inactive pantoprazole 40 mg tablet,delayed release RxNorm: 157373 1 Tablet(s) PO daily No Start Date 07/07/2018 Inactive Tricor 145 mg tablet RxNorm: 796059 1 Tablet(s) PO daily No Start Date 12/24/2012 Inactive Zithromax Z-Juanpablo 250 mg tablet RxNorm: 723506 Tablet(s) PO UD No Start Date 08/11/2012 Inactive Fish Oil 1,000 mg capsule RxNorm: 1 Capsule(s) PO BID No Start Date 07/07/2018 Inactive Vitamin D3 2,000 unit capsule RxNorm: 548276 1 Capsule(s) PO daily No Start Date 12/25/2015 Inactive Vagifem 10 mcg vaginal tablet RxNorm: 007547 1-2 Tablet(s) VAG weekly No Start Date 06/10/2016 Inactive Gelnique 10 % (100 mg/gram) transdermal gel packet RxNorm: 804117 3% gel 3 pumps TD daily No Start Date 08/09/2014 Inactive Vitamin D3 5,000 unit tablet RxNorm: 511148 1 Tablet(s) PO daily No Start Date 06/10/2016 Inactive hydrochlorothiazide 25 mg tablet RxNorm: 821819 1 Tablet(s) PO daily No Start Date 08/10/2012 Inactive Flexeril 10 mg tablet RxNorm: 047925 Tablet(s) PO No Start Date 06/10/2016 Inactive 1 q am1/2 with dinner1 hs Valium 5 mg tablet RxNorm: 242401 1 Tablet(s) PO PRN No Start Date 06/26/2017 Inactive amlodipine 5 mg tablet RxNorm: 873771 1 Tablet(s) PO daily No Start Date 03/15/2014 Inactive Phenergan VC-Codeine 6.25 mg-5 mg-10 mg/5 mL syrup RxNorm: 719096 5 Milliliter(s) PO Q6 as needed cough No Start Date 2015 Inactive Zithromax Z-Juanpablo 250 mg tablet RxNorm: 017622 Tablet(s) PO UD No Start Date 07/30/2013 Inactive naproxen 500 mg tablet RxNorm: 931418 Tablet(s) PO BID PRN No Start Date 01/20/2013 Inactive Lovaza 1 gram capsule RxNorm: 967117 2 Capsule(s) PO BID No Start Date 03/04/2018 Inactive hydrocodone 5 mg-acetaminophen 500 mg tablet RxNorm: 004056 1 Tablet(s) PO Q8 PRN No Start Date 12/24/2012 Inactive biotin 1000 mg RxNorm : 2 PO No Start Date 06/11/2016 Inactive aspirin 81 mg tablet,delayed release RxNorm: 242268 1 Tablet(s) PO daily No Start Date 07/07/2018 Inactive Lomotil 2.5 mg-0.025 mg tablet RxNorm: 2439259 Tablet(s) PO PRN No Start Date 04/23/2016 Inactive Ditropan XL 5 mg tablet,extended release RxNorm: 356238 1 Tablet(s) PO daily No Start Date 06/09/2018 Inactive Antara 130 mg capsule RxNorm: 096127 1 Capsule(s) PO daily No Start Date 07/07/2018 Inactive folic acid 1 mg tablet RxNorm: 150703 1 Tablet(s) PO daily No Start Date 11/02/2012 Inactive amlodipine 10 mg tablet RxNorm: 239461 1 Tablet(s) PO daily No Start Date 08/05/2018 Inactive amitriptyline 25 mg tablet RxNorm: 632883 1 Tablet(s) PO QHS dr fonseca No Start Date 03/29/2016 Inactive Gelnique transdermal RxNorm: 337934 transdermal No Start Date 03/25/2016 Inactive Toprol XL 50 mg tablet,extended release RxNorm: 581372 1 Tablet(s) PO daily No Start Date 04/08/2017 Inactive potassium chloride 10 % Oral Liquid RxNorm: 684746 1 Tablespoon(s) PO daily No Start Date 03/22/2013 Inactive Lipitor 10 mg tablet RxNorm: 068523 1 Tablet(s) PO QHS No Start Date 12/24/2012 Inactive diltiazem 120 mg tablet RxNorm: 804134 1 Tablet(s) PO daily No Start Date 08/10/2012 Inactive Combivent Respimat 20 mcg-100 mcg/actuation solution for inhalation RxNorm: 0793308 1-2 Puff(s) INH Q4 PRN No Start Date 07/25/2017 Inactive Medication Administered Medication Codes Instructions Start Date Status ceftriaxone 1 gram solution for injection RxNorm: 1697321 11/11/2014 No longer Active cyanocobalamin (vitamin B-12) 1,000 mcg/mL Injection RxNorm : 872410 Milliliter 11/03/2012 No longer Active cyanocobalamin (vitamin B-12) 1,000 mcg/mL Injection RxNorm : 370817 1Milliliter 10/20/2012 No longer Active Vitamin B-12 1,000 mcg/mL Injection RxNorm: 534306 1Milliliter 09/11/2012 No longer Active Vitamin B-12 1,000 mcg/mL Injection RxNorm: 932326 Milliliter 08/11/2012 No longer Active Vitamin B-12 1,000 mcg/mL Injection RxNorm: 759023 Milliliter 07/21/2012 No longer Active Immunizations Vaccine [...] Code Item Item Code Result Date Hepatic Nqf065 ALBUMIN 4.5 g/dL 08/11/2018 Hepatic Vqr660 TPRO 7.3 g/dL 08/11/2018 Hepatic Maz250 GLOB 2.8 g/dL 08/11/2018 Hepatic Qbn136 A/G Ratio 1.6 Ratio 08/11/2018 Hepatic Oce694 ALK PHOS 89 U/L 08/11/2018 Hepatic Rlx598 ALT(SGPT) 31 U/L 08/11/2018 Hepatic Fqy087 AST(SGOT) 20 U/L 08/11/2018 Hepatic Ikx279 BILI T 0.4 mg/dL 08/11/2018 Hepatic Vka655 BILI D 0.1 mg/dL 08/11/2018 Hepatic Wbw502 BILI I 0.3 mg/dL 08/11/2018 Lipid Ord30 [...] Ord30 C/HDL 3.7 Ratio 05/01/2018 Comp Metabolic Jhy757 NA 140 mEq/L 05/01/2018 Comp Metabolic Tdm623 K 4.1 mEq/L 05/01/2018 Comp Metabolic Gnf343 CL 107 mEq/L 05/01/2018 Comp Metabolic Yrg837 CO2 25.0 mEq/L 05/01/2018 Comp Metabolic Fda733 ANION GAP 12 05/01/2018 Comp Metabolic Oij204 GLUCOSE 98 mg/dL 05/01/2018 Comp Metabolic Zsw611 Creat 0.7 mg/dL 05/01/2018 Comp Metabolic Lku149 eGFR 96 ml/min/1.73m2 05/01/2018 Comp Metabolic Uqs984 BUN 14 mg/dL 05/01/2018 Comp Metabolic Ral371 B/C Ratio 20.9 Ratio 05/01/2018 Comp Metabolic Ous288 CALCIUM 9.5 mg/dL 05/01/2018 Comp Metabolic Klq771 ALK PHOS 74 U/L 05/01/2018 Comp Metabolic Shw402 AST(SGOT) 19 U/L 05/01/2018 Comp Metabolic Pek326 ALT(SGPT) 29 U/L 05/01/2018 Comp Metabolic Lau453 BILI T 0.3 mg/dL 05/01/2018 Comp Metabolic Ude597 ALBUMIN 4.3 g/dL 05/01/2018 Comp Metabolic Mdu338 TPRO 6.7 g/dL 05/01/2018 Comp Metabolic Wyk510 GLOB 2.4 g/dL 05/01/2018 Comp Metabolic Cgg228 A/G Ratio 1.8 Ratio 05/01/2018 Comp Metabolic Dzq995 Osmo 280 mOsmo 05/01/2018 Free T4 Edg667 FREE T4 0.95 ng/dL 02/11/2018 Tsh Ord6 TSH (3rd IS) 2.16 uIU/mL 02/11/2018 Free T4 Lbx267 FREE T4 0.81 ng/dL 11/12/2017 Tsh Ord6 TSH (3rd IS) 1.66 uIU/mL 11/12/2017 Tsh Ord6 hTSH II 1.45 uIU/mL 08/20/2017 Free T4 Krg455 FREE T4 0.80 ng/dL 08/20/2017 Hepatic Ckw836 ALBUMIN 4.4 g/dL 08/20/2017 Hepatic Urt245 TPRO 6.6 g/dL 08/20/2017 Hepatic Lbp892 GLOB 2.2 g/dL 08/20/2017 Hepatic Upg991 A/G Ratio 2.0 Ratio 08/20/2017 Hepatic Egh905 ALK PHOS 50 U/L 08/20/2017 Hepatic Bxe219 ALT(SGPT) 20 U/L 08/20/2017 Hepatic Fzb981 AST(SGOT) 20 U/L 08/20/2017 Hepatic Lnx744 BILI T 0.3 mg/dL 08/20/2017 Hepatic Hqe932 BILI D 0.1 mg/dL 08/20/2017 Hepatic Bzm137 BILI I 0.2 mg/dL 08/20/2017 Lipid Ord30 [...] 30.3 pg 02/21/2017 Cbc With Differential Ord2 [place]% 6.9 % 02/21/2017 Cbc With Differential Ord2 [...] 1.82 K/ul 02/21/2017 Cbc With Differential Ord2 [place] ABS# 0.5 K/ul 02/21/2017 Cbc With Differential Ord2 Eos ABS# 0.2 K/ul 02/21/2017 Cbc With Differential Ord2 Baso ABS# 0.0 K/ul 02/21/2017 %Hba1C Svp533 % HbA1c 68214-0 5.8 % 02/21/2017 %Hba1C [id number] Gluc Ave 120 mg/dL 02/21/2017 Tsh Ord6 hTSH II 1.90 uIU/mL 02/21/2017 Vitamin D 25 Oh [id number] VITAMIN D, 25 HYDROXY 42.82 ng/mL Comp Metabolic Fdt025 NA 141 mEq/L 02/21/2017 Comp Metabolic Xvh767 K 4.1 mEq/L 02/21/2017 Comp Metabolic Tvr606 CL 107 mEq/L 02/21/2017 Comp Metabolic Jpq676 CO2 25.0 mEq/L 02/21/2017 Comp Metabolic Bfa134 ANION GAP 13 02/21/2017 Comp Metabolic Ykr479 GLUCOSE 87 mg/dL 02/21/2017 Comp Metabolic Noh184 Creat 0.8 mg/dL 02/21/2017 Comp Metabolic Ecs606 eGFR 80 ml/min/1.73m2 02/21/2017 Comp Metabolic Tkl663 BUN 20 mg/dL 02/21/2017 Comp Metabolic Zao110 B/C Ratio 25.3 Ratio 02/21/2017 Comp Metabolic Dhf705 CALCIUM 9.5 mg/dL 02/21/2017 Comp Metabolic Orb786 ALK PHOS 61 U/L 02/21/2017 Comp Metabolic Wqa050 AST(SGOT) 16 U/L 02/21/2017 Comp Metabolic Sod321 ALT(SGPT) 19 U/L 02/21/2017 Comp Metabolic Rnp788 BILI T 0.3 mg/dL 02/21/2017 Comp Metabolic Eic770 ALBUMIN 4.4 g/dL 02/21/2017 Comp Metabolic Smz945 TPRO 7.0 g/dL 02/21/2017 Comp Metabolic Qso340 GLOB 2.6 g/dL 02/21/2017 Comp Metabolic Bag652 A/G Ratio 1.7 Ratio 02/21/2017 Comp Metabolic Qfe581 Osmo 283 mOsmo 02/21/2017 Lipid Ord30 CHOL 185 mg/dL 02/21/2017 Lipid Ord30 HDL 74.0 mg/dl 02/21/2017 Lipid Ord30 TRIG 148 mg/dL 02/21/2017 Lipid Ord30 LDL 81 mg/dL 02/21/2017 Lipid Ord30 C/HDL 2.5 Ratio 02/21/2017 Hepatic Djq202 ALBUMIN 4.9 g/dL 08/21/2016 Hepatic Jig162 TPRO 7.3 g/dL 08/21/2016 Hepatic Plk544 GLOB 2.5 g/dL 08/21/2016 Hepatic Ynr840 A/G Ratio 2.0 Ratio 08/21/2016 Hepatic Mpy786 ALK PHOS 76 U/L 08/21/2016 Hepatic Zuz540 ALT(SGPT) 29 U/L 08/21/2016 Hepatic Kzl459 AST(SGOT) 22 U/L 08/21/2016 Hepatic Zns323 BILI T 0.4 mg/dL 08/21/2016 Hepatic Sjz687 BILI D 0.1 mg/dL 08/21/2016 Hepatic Mnq642 BILI I 0.3 mg/dL 08/21/2016 Lipid Ord30 CHOL 302 mg/dL 08/21/2016 Lipid Ord30 HDL 69.0 mg/dl 08/21/2016 Lipid Ord30 TRIG 223 mg/dL 08/21/2016 Lipid Ord30 LDL 188 mg/dL 08/21/2016 Lipid Ord30 C/HDL 4.4 Ratio 08/21/2016 Lipase Mxm344 LIPASE 14 U/L 06/04/2016 Cbc With Differential [...] 30.0 pg 06/04/2016 Cbc With Differential Ord2 [place]% 6.5 % 06/04/2016 Cbc With Differential Ord2 [...] 1.50 K/ul 06/04/2016 Cbc With Differential Ord2 [place] ABS# 0.4 K/ul 06/04/2016 Cbc With Differential Ord2 Eos ABS# 0.1 K/ul 06/04/2016 Cbc With Differential Ord2 Baso ABS# 0.0 K/ul 06/04/2016 Comp Metabolic Vbw055 NA 135 mEq/L 06/04/2016 Comp Metabolic Dtb621 K 3.8 mEq/L 06/04/2016 Comp Metabolic Dxw108 CL 101 mEq/L 06/04/2016 Comp Metabolic Dkp981 CO2 26.0 mEq/L 06/04/2016 Comp Metabolic Vvx255 ANION GAP 12 06/04/2016 Comp Metabolic Nwy918 GLUCOSE 91 mg/dL 06/04/2016 Comp Metabolic Jdn357 Creat 0.8 mg/dL 06/04/2016 Comp Metabolic Hay747 eGFR 74 ml/min/1.73m2 06/04/2016 Comp Metabolic Ymz224 BUN 16 mg/dL 06/04/2016 Comp Metabolic Rjq693 B/C Ratio 19.0 Ratio 06/04/2016 Comp Metabolic Krv036 CALCIUM 10.0 mg/dL 06/04/2016 Comp Metabolic Tlb463 ALK PHOS 76 U/L 06/04/2016 Comp Metabolic Bgz013 AST(SGOT) 20 U/L 06/04/2016 Comp Metabolic Iro358 ALT(SGPT) 24 U/L 06/04/2016 Comp Metabolic Nml058 BILI T 0.3 mg/dL 06/04/2016 Comp Metabolic Gva923 ALBUMIN 4.6 g/dL 06/04/2016 Comp Metabolic Ovv713 TPRO 6.9 g/dL 06/04/2016 Comp Metabolic Wxq941 GLOB 2.3 g/dL 06/04/2016 Comp Metabolic Wgp604 A/G Ratio 2.0 Ratio 06/04/2016 Comp Metabolic Jtl855 Osmo 271 mOsmo 06/04/2016 Amylase Ord34 AMYLASE 31 U/L 06/04/2016 Hepatic Ycv363 ALBUMIN 4.3 g/dL 2016 Hepatic Feo879 TPRO 6.7 g/dL 2016 Hepatic Jha407 GLOB 2.4 g/dL 2016 Hepatic Mkv007 A/G Ratio 1.8 Ratio 2016 Hepatic Scl889 ALK PHOS 50 U/L 2016 Hepatic Qll709 ALT(SGPT) 20 U/L 2016 Hepatic Who425 AST(SGOT) 18 U/L 2016 Hepatic Pza492 BILI T 0.4 mg/dL 2016 Hepatic Jpu508 BILI D 0.1 mg/dL 2016 Hepatic Yix311 BILI I 0.3 mg/dL 2016 Lipid Ord30 CHOL 245 mg/dL 2016 Lipid Ord30 HDL 62.0 mg/dl 2016 Lipid Ord30 TRIG 140 mg/dL 2016 Lipid Ord30 LDL 155 mg/dL 2016 Lipid Ord30 C/HDL 4.0 Ratio 2016 Urine Culture Ucult Preliminary No Growth Day 1 09/15/2015 Urine Culture Ucult Complete No Growth Day 2 09/15/2015 Magnesium Ord90 Mag 1.9 mg/dL 09/07/2015 Comp Metabolic Rxh577 NA 139 mEq/L 09/07/2015 Comp Metabolic Cnn665 K 4.4 mEq/L 09/07/2015 Comp Metabolic Nvp277 CL 107 mEq/L 09/07/2015 Comp Metabolic Scq488 CO2 24.0 mEq/L 09/07/2015 Comp Metabolic Cpt745 ANION GAP 12 09/07/2015 Comp Metabolic Kpg170 GLUCOSE 91 mg/dL 09/07/2015 Comp Metabolic Wvk004 Creat 1.0 mg/dL 09/07/2015 Comp Metabolic Xte413 eGFR 64 ml/min/1.73m2 09/07/2015 Comp Metabolic Kkw006 BUN 31 mg/dL 09/07/2015 Comp Metabolic Dfw434 B/C Ratio 32.3 Ratio 09/07/2015 Comp Metabolic Voy885 CALCIUM 9.7 mg/dL 09/07/2015 Comp Metabolic Djo148 ALK PHOS 56 U/L 09/07/2015 Comp Metabolic Iyb197 AST(SGOT) 29 U/L 09/07/2015 Comp Metabolic Yrp157 ALT(SGPT) 34 U/L 09/07/2015 Comp Metabolic Wkn570 BILI T 0.3 mg/dL 09/07/2015 Comp Metabolic Hgf277 ALBUMIN 4.6 g/dL 09/07/2015 Comp Metabolic Vuj252 TPRO 7.0 g/dL 09/07/2015 Comp Metabolic Jjs059 GLOB 2.4 g/dL 09/07/2015 Comp Metabolic Rri286 A/G Ratio 1.9 Ratio 09/07/2015 Comp Metabolic Wgj108 Osmo 284 mOsmo 09/07/2015 Bili D Ord93 BILI D 0.1 mg/dL 09/07/2015 Bili D Ord93 BILI I 0.2 mg/dL 09/07/2015 Lipid Ord30 CHOL 243 mg/dL 09/07/2015 Lipid Ord30 HDL 75.0 mg/dl 09/07/2015 Lipid Ord30 TRIG 161 mg/dL 09/07/2015 Lipid Ord30 LDL 136 mg/dL 09/07/2015 Lipid Ord30 C/HDL 3.2 Ratio 09/07/2015 Tsh Ord6 hTSH II 2.53 uIU/mL 06/13/2015 Comp Metabolic Qjl717 NA 138 mEq/L 06/13/2015 Comp Metabolic Czr669 K 4.0 mEq/L 06/13/2015 Comp Metabolic Qre952 CL 104 mEq/L 06/13/2015 Comp Metabolic Ane344 CO2 26.0 mEq/L 06/13/2015 Comp Metabolic Olq268 ANION GAP 12 06/13/2015 Comp Metabolic Hyz424 GLUCOSE 86 mg/dL 06/13/2015 Comp Metabolic Ast261 Creat 0.9 mg/dL 06/13/2015 Comp Metabolic Aer497 eGFR 71 ml/min/1.73m2 06/13/2015 Comp Metabolic Gph993 BUN 18 mg/dL 06/13/2015 Comp Metabolic Vgc108 B/C Ratio 20.5 Ratio 06/13/2015 Comp Metabolic Ggl163 CALCIUM 10.1 mg/dL 06/13/2015 Comp Metabolic Aax241 ALK PHOS 52 U/L 06/13/2015 Comp Metabolic Uni706 AST(SGOT) 18 U/L 06/13/2015 Comp Metabolic Swn212 ALT(SGPT) 21 U/L 06/13/2015 Comp Metabolic Qet317 BILI T 0.3 mg/dL 06/13/2015 Comp Metabolic Zcm462 ALBUMIN 4.7 g/dL 06/13/2015 Comp Metabolic Egc891 TPRO 6.9 g/dL 06/13/2015 Comp Metabolic Xmn568 GLOB 2.2 g/dL 06/13/2015 Comp Metabolic Wwr995 A/G Ratio 2.1 Ratio 06/13/2015 Comp Metabolic Jnw330 Osmo 277 mOsmo 06/13/2015 %Hba1C Lqq068 % HbA1c 34097-2 5.7 % 06/13/2015 %Hba1C Zpp945 Gluc Ave 117 mg/dL 06/13/2015 Cbc With [...] 14.7 % 06/13/2015 Vitamin D 25 Oh Bbz5714 VITAMIN D, 25 HYDROXY 41.85 ng/mL Cbc [...] Ord2 RDW 14.5 % 04/18/2015 Comp Metabolic Wqh898 NA 137 mEq/L 04/18/2015 Comp Metabolic Cdh989 K 4.0 mEq/L 04/18/2015 Comp Metabolic Vok454 CL 105 mEq/L 04/18/2015 Comp Metabolic Uew012 CO2 23.0 mEq/L 04/18/2015 Comp Metabolic Jlj314 ANION GAP 13 04/18/2015 Comp Metabolic Dpf701 GLUCOSE 73 mg/dL 04/18/2015 Comp Metabolic Fip504 Creat 0.9 mg/dL 04/18/2015 Comp Metabolic Krs880 eGFR 72 ml/min/1.73m2 04/18/2015 Comp Metabolic Mul699 BUN 17 mg/dL 04/18/2015 Comp Metabolic Unx506 B/C Ratio 19.5 Ratio 04/18/2015 Comp Metabolic Mzv080 CALCIUM 9.7 mg/dL 04/18/2015 Comp Metabolic Efu648 ALK PHOS 55 U/L 04/18/2015 Comp Metabolic Lde514 AST(SGOT) 28 U/L 04/18/2015 Comp Metabolic Idg254 ALT(SGPT) 27 U/L 04/18/2015 Comp Metabolic Agx185 BILI T 0.3 mg/dL 04/18/2015 Comp Metabolic Jkp257 ALBUMIN 4.5 g/dL 04/18/2015 Comp Metabolic Tdd261 TPRO 7.0 g/dL 04/18/2015 Comp Metabolic Rht934 GLOB 2.5 g/dL 04/18/2015 Comp Metabolic Qgt798 A/G Ratio 1.8 Ratio 04/18/2015 Comp Metabolic Hfj625 Osmo 274 mOsmo 04/18/2015 Cbc With Differential [...] Ord2 RDW 15.0 % 03/22/2015 Comp Metabolic Nkc240 NA 136 mEq/L 03/22/2015 Comp Metabolic Elk219 K 4.1 mEq/L 03/22/2015 Comp Metabolic Deo749 CL 102 mEq/L 03/22/2015 Comp Metabolic Ppl918 CO2 26.0 mEq/L 03/22/2015 Comp Metabolic Luu621 ANION GAP 12 03/22/2015 Comp Metabolic Ytr817 GLUCOSE 82 mg/dL 03/22/2015 Comp Metabolic Jhi290 Creat 0.9 mg/dL 03/22/2015 Comp Metabolic Kho209 eGFR 69 ml/min/1.73m2 03/22/2015 Comp Metabolic Wdc754 BUN 30 mg/dL 03/22/2015 Comp Metabolic Ued532 B/C Ratio 33.3 Ratio 03/22/2015 Comp Metabolic Yfe415 CALCIUM 10.3 mg/dL 03/22/2015 Comp Metabolic Nrg131 ALK PHOS 56 U/L 03/22/2015 Comp Metabolic Lgp975 AST(SGOT) 17 U/L 03/22/2015 Comp Metabolic Kdj484 ALT(SGPT) 17 U/L 03/22/2015 Comp Metabolic Mex123 BILI T 0.3 mg/dL 03/22/2015 Comp Metabolic Umt174 ALBUMIN 4.7 g/dL 03/22/2015 Comp Metabolic Lpd801 TPRO 7.2 g/dL 03/22/2015 Comp Metabolic Phd658 GLOB 2.5 g/dL 03/22/2015 Comp Metabolic Sfx795 A/G Ratio 1.9 Ratio 03/22/2015 Comp Metabolic Ysb151 Osmo 277 mOsmo 03/22/2015 FREE T4 1177353 FREE T4 1.24 NG/DL 10/18/2014 CHEM 14 1191197 AST 14 U/L 10/15/2014 CHEM 14 1227050 ALT 15 IU/L 10/15/2014 CHEM 14 1633353 BUN 23 MG/DL 10/15/2014 CHEM 14 6672171 ALBUMIN 4.8 GM/DL 10/15/2014 CHEM 14 4405122 CHLORIDE 105 MMOL/L 10/15/2014 CHEM 14 5179189 BILI TOT 0.3 MG/DL 10/15/2014 CHEM 14 0134629 ALK PHOS 60 U/L 10/15/2014 CHEM 14 1296083 SODIUM 140 MMOL/L 10/15/2014 CHEM 14 1723588 CREATININE 0.89 MG/DL 10/15/2014 CHEM 14 5732534 CALCIUM 10.0 MG/DL 10/15/2014 CHEM 14 2157467 POTASSIUM 3.7 MMOL/L 10/15/2014 CHEM 14 1849123 PROT TOT 7.2 GM/DL 10/15/2014 CHEM 14 3709115 GLUCOSE 97 MG/DL 10/15/2014 CHEM 14 4176408 BICARB 25 MMOL/L 10/15/2014 CHEM 14 9578415 ANION GAP 10 MEQ/L 10/15/2014 CBC 6609398 WBC 6.7 10e9/L 10/15/2014 CBC 2556554 RBC 4.49 10e12/L 10/15/2014 CBC 8931332 HGB 13.4 g/dL 10/15/2014 CBC 9382440 HCT DET 40.2 % 10/15/2014 CBC 7514418 MCV 89.5 fL 10/15/2014 CBC 6545190 MCH 29.8 pg 10/15/2014 CBC 7453354 MCHC 33.3 g/dL 10/15/2014 CBC 2287558 PLT 311 10e9/L 10/15/2014 CBC 2472160 MPV 10.7 fL 10/15/2014 CBC 4839489 BESSY % 63.6 % 10/15/2014 CBC 4515807 LY % 26.7 % 10/15/2014 CBC 6740677 MON % 6.6 % 10/15/2014 CBC 9775598 EOS % 2.8 % 10/15/2014 CBC 8308875 BASO % 0.3 % 10/15/2014 CBC 2995138 RDW 13.4 % 10/15/2014 CBC 3059066 ABS BESSY 4.26 10e9/L 10/15/2014 CBC 8929070 ABS LYMPH 1.79 10e9/L 10/15/2014 CBC 8397545 ABS MONO 0.44 10e9/L 10/15/2014 CBC 8308181 ABS EOS 0.19 10e9/L 10/15/2014 CBC 0520132 ABS BASO 0.02 10e9/L 10/15/2014 CBC 3316452 RDW-SD 43.2 fL 10/15/2014 A1C HPLC 4030784 A1C HPLC 78951-4 5.7 % 10/15/2014 TSH 5389426 TSH 4.083 uIU/ML 10/15/2014 GFR CALC 3090545 GFR AA >60 ML/MIN 10/15/2014 GFR CALC 7269499 GFR NON-AA >60 ML/MIN 10/15/2014 VIT D TOTL 8374289 VIT D TOTL 36 NG/ML 10/15/2014 GFR CALC 2397294 GFR AA >60 ML/MIN 06/23/2014 GFR CALC 0405273 GFR NON-AA >60 ML/MIN 06/23/2014 CHEM 14 0088109 AST 21 U/L 06/23/2014 CHEM 14 5146163 ALT 24 IU/L 06/23/2014 CHEM 14 1854074 BUN 18 MG/DL 06/23/2014 CHEM 14 6583632 ALBUMIN 4.7 GM/DL 06/23/2014 CHEM 14 3212439 CHLORIDE 109 MMOL/L 06/23/2014 CHEM 14 6313179 BILI TOT 0.3 MG/DL 06/23/2014 CHEM 14 9199309 ALK PHOS 53 U/L 06/23/2014 CHEM 14 1233487 SODIUM 140 MMOL/L 06/23/2014 CHEM 14 3843560 CREATININE 0.86 MG/DL 06/23/2014 CHEM 14 4934530 CALCIUM 10.2 MG/DL 06/23/2014 CHEM 14 3015282 POTASSIUM 3.9 MMOL/L 06/23/2014 CHEM 14 0268329 PROT TOT 6.9 GM/DL 06/23/2014 CHEM 14 1978881 GLUCOSE 87 MG/DL 06/23/2014 CHEM 14 3650604 BICARB 24 MMOL/L 06/23/2014 CHEM 14 4481962 ANION GAP 7 MEQ/L 06/23/2014 TSH 9991613 TSH 1.417 uIU/ML 06/23/2014 FREE T4 8378285 FREE T4 1.21 NG/DL 06/23/2014 TSH 8756759 TSH 3.399 uIU/ML 12/16/2013 CBC 1043541 WBC 6.4 10e9/L 12/15/2013 CBC 1461688 RBC 4.34 10e12/L 12/15/2013 CBC 5100194 HGB 12.9 g/dL 12/15/2013 CBC 3261475 HCT DET 39.3 % 12/15/2013 CBC 3989870 MCV 90.6 fL 12/15/2013 CBC 3823426 MCH 29.7 pg 12/15/2013 CBC 6163731 MCHC 32.8 g/dL 12/15/2013 CBC 6407094 PLT 292 10e9/L 12/15/2013 CBC 7824810 MPV 10.8 fL 12/15/2013 CBC 3600894 BESSY % 63.6 % 12/15/2013 CBC 3265291 LY % 25.7 % 12/15/2013 CBC 3775893 MON % 7.1 % 12/15/2013 CBC 0651887 EOS % 3.3 % 12/15/2013 CBC 4361270 BASO % 0.3 % 12/15/2013 CBC 5964806 RDW 13.4 % 12/15/2013 CBC 7461032 ABS BESSY 4.07 10e9/L 12/15/2013 CBC 7271966 ABS LYMPH 1.64 10e9/L 12/15/2013 CBC 5667634 ABS MONO 0.45 10e9/L 12/15/2013 CBC 7119828 ABS EOS 0.21 10e9/L 12/15/2013 CBC 5339069 ABS BASO 0.02 10e9/L 12/15/2013 CBC 5430229 RDW-SD 43.5 fL 12/15/2013 CHEM 14 3863433 AST 19 U/L 12/15/2013 CHEM 14 8116315 ALT 23 IU/L 12/15/2013 CHEM 14 6908847 BUN 23 MG/DL 12/15/2013 CHEM 14 9980385 ALBUMIN 4.7 GM/DL 12/15/2013 CHEM 14 5095640 CHLORIDE 108 MMOL/L 12/15/2013 CHEM 14 3874987 BILI TOT 0.3 MG/DL 12/15/2013 CHEM 14 5393443 ALK PHOS 58 U/L 12/15/2013 CHEM 14 8987494 SODIUM 139 MMOL/L 12/15/2013 CHEM 14 6295420 CREATININE 0.92 MG/DL 12/15/2013 CHEM 14 6548679 CALCIUM 10.0 MG/DL 12/15/2013 CHEM 14 9016518 POTASSIUM 4.0 MMOL/L 12/15/2013 CHEM 14 0820653 PROT TOT 7.1 GM/DL 12/15/2013 CHEM 14 5121345 GLUCOSE 82 MG/DL 12/15/2013 CHEM 14 6238529 BICARB 24 MMOL/L 12/15/2013 CHEM 14 7582772 ANION GAP 7 MEQ/L 12/15/2013 GFR CALC 3819225 GFR AA >60 ML/MIN 12/15/2013 GFR CALC 7476031 GFR NON-AA >60 ML/MIN 12/15/2013 URINALYSIS NONAUTO W/O SCOPE 89228 [place] 1.025 DateTime(Free Text in Aprima) URINALYSIS NONAUTO W/O SCOPE 55282 PH 5 DateTime(Free Text in Aprima) URINALYSIS NONAUTO W/O SCOPE 59738 GLUCOSE neg DateTime( Free Text in Aprima) URINALYSIS NONAUTO W/O SCOPE 59744 Protein neg DateTime( Free Text in Aprima) URINALYSIS NONAUTO W/O SCOPE 69638 Blood neg DateTime(Free Text in Aprima) URINALYSIS NONAUTO W/O SCOPE 62702 Bilirubin neg DateTime(Free Text in Aprima) URINALYSIS NONAUTO W/O SCOPE 64801 Ketones neg DateTime( Free Text in Aprima) URINALYSIS NONAUTO W/O SCOPE 43171 Urobilinogen neg DateTime(Free Text in Aprima) URINALYSIS NONAUTO W/O SCOPE 62356 Nitrite neg DateTime( Free Text in Aprima) URINALYSIS NONAUTO W/O SCOPE 43383 Leukocytes neg DateTime(Free Text in Aprima) Review [...] level 05/10/2017 None Full Exam - General 1995 Ears/Nose/Throat internal nose Sinus tenderness: left maxillary 05/10/2017 None Full Exam - General 1994 Ears/Nose/Throat internal nose Sinus tenderness: right maxillary 05/10/2017 None Full Exam - General 1995 Ears/Nose/Throat lips/teeth/gingiva Overall: benign lips 05/10/2017 None Full Exam - General 1995 Ears/Nose/Throat lips/teeth/gingiva Overall: normal dentition 05/10/2017 None [...] vein procedure that will be perform in [place] in May. Full Exam - General 1994 [...] normal 04/09/2014 None Full Exam - General 1995 [...] normal 10/20/2012 None Full Exam - General 1995 Eyes pupils and irises Overall: pupils equal, [...] asymmetric 10/20/2012 None Full Exam - General 1995 Neurologic [...] nourished 08/11/2012 None Full Exam - General 1995 Eyes conjunctiva /eyelids Overall: conjunctiva clear 08/11/2012 [...] Procedure Codes Date IMMUNIZATION ADMIN CPT -4: 95157 06/05/2018 FLU VAC NO PRSV 4 ZONIA 3 YRS+ CPT-4: 94783 06/05/2018 IMMUNIZATION ADMIN CPT -4: 12689 06/19/2017 FLU VAC NO PRSV 4 ZONIA 3 YRS+ CPT-4: 19222 06/19/2017 URINALYSIS NONAUTO W/O SCOPE CPT-4: 63282 09/08/2015 IMMUNIZATION ADMIN CPT -4: 55611 03/30/2015 ADACEL TDAP VACCINE 7 YRS/> IM CPT-4: 36378 03/30/2015 URINALYSIS NONAUTO W/O SCOPE CPT-4: 72813 03/22/2015 THER/PROPH/DIAG INJ SC/IM CPT-4: 75756 11/11/2014 ROCEPHIN, PER 250 MG CPT-4: J0696 11/11/2014 ROUTINE VENIPUNCTURE CPT-4: 39995 10/15/2014 HgbA1c CPT-4: 85800 10/15/2014 CBC (COMPLETE CBC W/AUTO DIFF WBC) CPT-4: 34448 10/15/2014 CHEM 14 (COMPREHEN METABOLIC PANEL) CPT-4: 72253 10/15/2014 TSH (ASSAY THYROID STIM HORMONE) CPT-4: 02217 10/15/2014 VIT D TOTL (VITAMIN D 25 HYDROXY) CPT-4: 42259 10/15/2014 FREE T4 (ASSAY OF FREE THYROXINE) CPT-4: 63845 10/15/2014 ROUTINE VENIPUNCTURE CPT-4: 03989 06/23/2014 CHEM 14 (COMPREHEN METABOLIC PANEL) CPT-4: 32403 06/23/2014 TSH (ASSAY THYROID STIM HORMONE) CPT-4: 02632 06/23/2014 FREE T4 (ASSAY OF FREE THYROXINE) CPT-4: 93013 06/23/2014 URINALYSIS NONAUTO W/O SCOPE CPT-4: 32022 12/15/2013 ROUTINE VENIPUNCTURE CPT-4: 13276 12/15/2013 THER/PROPH/DIAG INJ SC/IM CPT-4: 41167 11/03/2012 VITAMIN B12 INJECTION CPT-4: J3420 11/03/2012 THER/PROPH/DIAG INJ SC/IM CPT-4: 72000 10/20/2012 VITAMIN B12 INJECTION CPT-4: J3420 10/20/2012 VITAMIN B12 INJECTION CPT-4: J3420 09/11/2012 THER/PROPH/DIAG INJ SC/IM CPT-4: 52000 09/11/2012 THER/PROPH/DIAG INJ SC/IM CPT-4: 38928 08/11/2012 VITAMIN B12 INJECTION CPT-4: J3420 08/11/2012 THER/PROPH/DIAG INJ SC/IM CPT-4: 50235 07/21/2012 VITAMIN B12 INJECTION CPT-4: J3420 07/21/2012 Vital Signs Date Vital 08/06/2018 Blood Pressure 1: 116/78 Code : 8480-6 BMI: 32.3 Code : 17434-9 Heart Rate 1 : 71 bpm Height: 5'6" SpO2: 98% Weight: 200 lbs 07/08/2018 Blood Pressure 1: 128/70 Code : 8480-6 BMI: 32.4 Code : 73864-1 Heart Rate 1 : 76 bpm Height: 5'6" SpO2: 96% Weight: 201 lbs 02/11/2018 Blood Pressure 1: 122/84 Code : 8480-6 BMI: 32.4 Code : 98961-4 Heart Rate 1 : 71 bpm Height: 5'6" SpO2: 97% Weight: 201 lbs 11/12/2017 Blood Pressure 1: 130/82 Code : 8480-6 BMI: 32.3 Code : 98687-0 Height: 5'6" Weight: 200 lbs 08/20/2017 Blood Pressure 1: 126/78 Code : 8480-6 BMI: 32.3 Code : 50732-0 Heart Rate 1 : 66 bpm Height: 5'6" SpO2: 98% Weight: 200 lbs 06/24/2017 Blood Pressure 1: 134/78 Code : 8480-6 BMI: 34.2 Code : 71145-7 Heart Rate 1 : 71 bpm Height: 5'6" SpO2: 95% Weight: 212 lbs 05/22/2017 Blood Pressure 1: 12278 Code : 8480-6 BMI: 33.9 Code : 34707-7 Heart Rate 1 : 76 bpm Height: 5'6" SpO2: 97% Weight: 210 lbs 05/10/2017 Blood Pressure 1: 130/84 Code : 8480-6 BMI: 34.1 Code : 45237-3 Heart Rate 1 : 90 bpm Height: 5'6" SpO2: 98% Temperature: 36.9 (C) / 98.5 (F) Weight: 211 lbs 04/08/2017 Blood Pressure 1: 132/78 Code : 8480-6 BMI: 34.4 Code : 37465-6 Heart Rate 1 : 72 bpm Height: 5'6" SpO2: 97% Weight: 213 lbs 02/20/2017 Blood Pressure 1: 130/90 Code : 8480-6 BMI: 33.9 Code : 35722-1 Heart Rate 1 : 74 bpm Height: 5'6" SpO2: 98% Weight: 210 lbs 11/21/2016 Blood Pressure 1: 132/74 Code : 8480-6 BMI: 34.2 Code : 82634-0 Heart Rate 1 : 66 bpm Height: 5'6" SpO2: 97% Weight: 212 lbs 08/29/2016 Blood Pressure 1: 136/82 Code : 8480-6 BMI: 33.7 Code : 55148-2 Heart Rate 1 : 70 bpm Height: 5'6" Respiratory Rate: 18 bpm SpO2: 98% Weight: 209 lbs 07/05/2016 Blood Pressure 1: 142/76 Code : 8480-6 BMI: 33.2 Code : 16796-5 Heart Rate 1 : 73 bpm Height: 5'6" SpO2: 98% Weight: 206 lbs 06/11/2016 Blood Pressure 1: 130/82 Code : 8480-6 BMI: 33.4 Code : 13999-2 Heart Rate 1 : 76 bpm Height: 5'6" SpO2: 97% Weight: 207 lbs 06/04/2016 Blood Pressure 1: 134/80 Code : 8480-6 BMI: 33.4 Code : 17107-3 Heart Rate 1 : 71 bpm Height: 5'6" SpO2: 98% Weight: 207 lbs 04/10/2016 Blood Pressure 1: 124/80 Code : 8480-6 BMI: 34.4 Code : 55852-4 Heart Rate 1 : 76 bpm Height: 5'6" SpO2: 96% Weight: 213 lbs 03/26/2016 Blood Pressure 1: 118/74 Code : 8480-6 BMI: 34.4 Code : 04946-6 Heart Rate 1 : 72 bpm Height: 5'6" SpO2: 98% Weight: 213 lbs 01/23/2016 Blood Pressure 1: 134/76 Code : 8480-6 BMI: 33.7 Code : 83477-5 Heart Rate 1 : 76 bpm Height: 5'6" SpO2: 97% Weight: 209 lbs 12/26/2015 Blood Pressure 1: 116/76 Code : 8480-6 BMI: 33.4 Code : 94251-0 Heart Rate 1 : 78 bpm Height: 5'6" SpO2: 98% Weight: 207 lbs 11/02/2015 Blood Pressure 1: 118/80 Code : 8480-6 BMI: 33.6 Code : 26953-9 Heart Rate 1 : 75 bpm Height: 5'6" SpO2: 95% Weight: 208 lbs 09/13/2015 Blood Pressure 1: 140/82 Code : 8480-6 BMI: 33.6 Code : 16341-2 Heart Rate 1 : 92 bpm Height: 5'6" SpO2: 96% Weight: 208 lbs 09/07/2015 Blood Pressure 1: 140/82 Code : 8480-6 BMI: 33.4 Code : 66341-5 Heart Rate 1 : 85 bpm Height: 5'6" SpO2: 95% Weight: 207 lbs 08/16/2015 Blood Pressure 1: 138/84 Code : 8480-6 BMI: 32.9 Code : 70067-0 Heart Rate 1 : 87 bpm Height: 5'6" SpO2: 97% Weight: 204 lbs 06/13/2015 Blood Pressure 1: 130/82 Code : 8480-6 BMI: 33.1 Code : 00801-4 Heart Rate 1 : 84 bpm Height: 5'6" SpO2: 96% Weight: 205 lbs 05/10/2015 Blood Pressure 1: 118/70 Code : 8480-6 BMI: 32.9 Code : 87616-1 Heart Rate 1 : 77 bpm Height: 5'6" SpO2: 97% Weight: 204 lbs 03/22/2015 Blood Pressure 1: 118/76 Code : 8480-6 BMI: 32.0 Code : 93753-0 Heart Rate 1 : 88 bpm Height: 5'6" Temperature: 36.2 (C) / 97.2 (F) Weight: 198 lbs 01/17/2015 Blood Pressure 1: 120/80 Code : 8480-6 BMI: 32.6 Code : 75884-5 Heart Rate 1 : 88 bpm Height: 5'6" Weight: 202 lbs 11/22/2014 Blood Pressure 1: 118/82 Code : 8480-6 BMI: 31.8 Code : 56165-2 Heart Rate 1 : 72 bpm Height: 5'6" Weight: 197 lbs 10/27/2014 Blood Pressure 1: 130/82 Code : 8480-6 BMI: 32.0 Code : 28332-7 Heart Rate 1 : 86 bpm Height: 5'6" SpO2: 97% Weight: 198 lbs 10/15/2014 Blood Pressure 1: 118/82 Code : 8480-6 BMI: 32.1 Code : 67111-7 Heart Rate 1 : 100 bpm Height: 5'6" Weight: 199 lbs 09/30/2014 Blood Pressure 1: 118/86 Code : 8480-6 BMI: 32.0 Code : 61055-7 Heart Rate 1 : 80 bpm Height: 5'6" Temperature: 35.7 (C) / 96.3 (F) Weight: 198 lbs 07/14/2014 Blood Pressure 1: 116/80 Code : 8480-6 BMI: 32.9 Code : 39915-9 Heart Rate 1 : 80 bpm Height: 5'6" Weight: 204 lbs 06/23/2014 Blood Pressure 1: 128/88 Code : 8480-6 BMI: 33.7 Code : 34980-8 Height: 5'6" Weight: 209 lbs 04/09/2014 Blood Pressure 1: 138/82 Code : 8480-6 Heart Rate 1: 90 bpm SpO2: 97% Temperature: 35.8 (C) / 96.5 (F) Weight: 210 lbs 03/16/2014 Blood Pressure 1: 116/80 Code : 8480-6 BMI: 34.1 Code : 89083-4 Heart Rate 1 : 88 bpm Height: 5'6" Weight: 211 lbs 01/12/2014 Blood Pressure 1: 124/70 Code : 8480-6 BMI: 33.4 Code : 26816-2 Heart Rate 1 : 76 bpm Height: 5'6" Weight: 207 lbs 12/15/2013 Blood Pressure 1: 144/100 Code: 8480-6 Blood Pressure 2: 124/90 Code: 8480-6 Heart Rate 1: 72 bpm Weight: 215 lbs 10/20/2013 Blood Pressure 1: 130/84 Code : 8480-6 BMI: 34.5 Code : 79518-1 Heart Rate 1 : 84 bpm Height: 5'6" Weight: 214 lbs 09/15/2013 Blood Pressure 1: 128/90 Code : 8480-6 BMI: 34.9 Code : 90193-9 Heart Rate 1 : 88 bpm Height: 5'6" Temperature: 36.5 (C) / 97.7 (F) Weight: 216 lbs 07/27/2013 Blood Pressure 1: 138/90 Code : 8480-6 BMI: 34.4 Code : 01436-1 Heart Rate 1 : 88 bpm Height: 5'6" Weight: 213 lbs 06/09/2013 Blood Pressure 1: 138/92 Code : 8480-6 Heart Rate 1: 88 bpm Weight: 04/20/2013 Blood Pressure 1: 142/92 Code : 8480-6 BMI: 34.4 Code : 44987-4 Heart Rate 1 : 88 bpm Height: 5'6" Weight: 213 lbs 03/23/2013 Blood Pressure 1: 116/84 Code : 8480-6 BMI: 34.1 Code : 74744-9 Heart Rate 1 : 76 bpm Height: 5'6" Weight: 211 lbs 01/21/2013 Blood Pressure 1: 130/88 Code : 8480-6 BMI: 34.5 Code : 57053-7 Heart Rate 1 : 80 bpm Height: 5'6" Weight: 214 lbs 12/25/2012 Blood Pressure 1: 112/70 Code : 8480-6 Heart Rate 1: 84 bpm Respiratory Rate : 20 bpm Weight: 214 lbs 8 oz 10/20/2012 Blood Pressure 1: 124/80 Code : 8480-6 BMI: 34.4 Code : 67418-3 Heart Rate 1 : 84 bpm Height: 5'6" Temperature: 36.7 (C) / 98.0 (F) Weight: 213 lbs 08/11/2012 Blood Pressure 1: 116/80 Code : 8480-6 BMI: 33.9 Code : 08341-5 Heart Rate 1 : 76 bpm Height: 5'6" Respiratory Rate: 20 bpm Weight: 210 lbs 07/10/2012 Blood Pressure 1: 110/76 Code : 8480-6 BMI: 46.5 Code : 47127-1 Heart Rate 1 : 84 bpm Height: [...] of Symptom _ weeks ago 09/30/2014 around [place] neck pain Location in the lower cervical/ [...] data Encounters Encounter Performer Location Codes Date ([id number]) [id number] EST. 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 PATIENT, LEVEL IV Diagnosis: Essential (primary) hypertension[ICD10: I10] Diagnosis: Major depressive disorder, recurrent, moderate[ICD10: F33.1] Diagnosis: Generalized anxiety disorder[ICD10: F41.1] Caty Ledesma MD, [facility] CPT-4: 48559 07/08/2018 ([id number]) 02178 EST. 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 PATIENT, LEVEL IV Diagnosis: Nontoxic multinodular goiter[ICD10: E04.2] Diagnosis: Essential (primary) hypertension[ICD10: I10] Diagnosis: Other fatigue[ICD10: R53.83] Caty Ledesma MD, [facility] CPT- 4: 53749 11/12/2017 ([id number]) 39165 EST. PATIENT, LEVEL IV Diagnosis: Nontoxic multinodular goiter[ICD10: E04.2] Diagnosis: Major depressive disorder, recurrent, moderate[ICD10: F33.1] Diagnosis: Generalized anxiety disorder[ICD10: F41.1] Diagnosis: Essential (primary) hypertension[ICD10: I10] Caty Ledesma MD, [facility] CPT-4: 34995 08/20/2017 ([id number]) 85391 EST. PATIENT, LEVEL III Diagnosis: Acute recurrent maxillary sinusitis[ICD10: J01.01] Diagnosis: Encounter for other preprocedural examination[ICD10: Z01.818] Mira Ledesma MD, [facility] CPT-4: 50016 06/24/2017 ([id number]) 75427 EST. PATIENT, LEVEL IV Diagnosis: Acute recurrent frontal sinusitis[ICD10: J01.11] Diagnosis: Type 2 diabetes mellitus without complications[ICD10: E11.9] Diagnosis: Essential (primary) hypertension[ICD10: I10] Caty Ledesma MD, [facility] CPT-4: 66174 05/22/2017 ([id number]) 30761 EST. PATIENT, LEVEL III Diagnosis: Acute recurrent maxillary sinusitis[ICD10: J01.01] Diagnosis: Cough[ICD10: R05] Mira Ledesma MD, [facility] CPT-4: 29417 05/10/2017 ([id number]) 69214 EST. PATIENT, LEVEL IV Diagnosis: Generalized anxiety disorder[ICD10: F41.1] Diagnosis: Muscle weakness (generalized)[ICD10: M62.81] Diagnosis: Somnolence[ICD10: R40.0] Diagnosis: Snoring[ICD10: R06.83] Caty Ledesma MD, [facility] CPT-4: 21224 04/08/2017 ([id number]) 95233 EST. PATIENT, LEVEL IV Diagnosis: Vitamin deficiency, unspecified[ICD10: E56.9] Diagnosis: Major depressive disorder, recurrent, moderate[ICD10: F33.1] Diagnosis: Generalized anxiety disorder[ICD10: F41.1] Diagnosis: Impaired fasting glucose[ICD10: R73.01] Diagnosis: Chronic migraine without aura, not intractable, without status migrainosus[ICD10: G43.709] Diagnosis: Essential (primary) hypertension[ICD10: I10] Diagnosis: Mixed hyperlipidemia[ICD10: E78.2] Diagnosis: Nontoxic multinodular goiter[ICD10: E04.2] Caty Ledesma MD, [facility] CPT-4: 85755 02/20/2017 ([id number]) 09006 EST. PATIENT, LEVEL IV Diagnosis: Generalized anxiety disorder[ICD10: F41.1] Diagnosis: Major depressive disorder, recurrent, moderate[ICD10: F33.1] Diagnosis: Chronic pain syndrome[ICD10: G89.4] Diagnosis: Other specified polyneuropathies[ICD10: G62.89] Diagnosis: Muscle weakness (generalized)[ICD10: M62.81] Diagnosis: Essential (primary) hypertension[ICD10: I10] Caty Ledesma MD [facility] CPT-4: 31068 11/21/2016 ([id number]) 11427 EST. PATIENT, LEVEL III Diagnosis: Generalized abdominal pain[ICD10: R10.84] Diagnosis: Essential (primary) hypertension[ICD10: I10] Caty Ledesma MD [facility] CPT-4: 73401 08/29/2016 ([id number]) 86841 EST. PATIENT, LEVEL III Diagnosis: Epigastric pain[ICD10: R10.13] Caty Ledesma MD [facility] CPT- 4: 45706 07/05/2016 ([id number]) 94950 EST. PATIENT, LEVEL III Diagnosis: Toxic gastroenteritis and colitis[ICD10: K52.1] Caty Ledesma MD [facility] CPT-4: 92026 06/11/2016 65997 EST. PATIENT, LEVEL III Diagnosis: Left upper quadrant pain[ICD10: R10.12] Estrella Ledesma MD [facility] CPT-4: 58503 06/04/2016 ([id number]) 56695 EST. PATIENT, LEVEL III Diagnosis: Cellulitis of left toe[ICD10: L03.032] Mira Ledesma MD [facility] CPT-4: 01078 04/10/2016 ([id number]) 24300 EST. PATIENT, LEVEL III Diagnosis: Essential (primary) hypertension[ICD10: I10] Diagnosis: Chronic pain syndrome[ICD10: G89.4] Diagnosis: Other fatigue[ICD10: R53.83] Caty Ledesma MD [facility] CPT- 4: 61879 03/26/2016 ([id number]) 56469 EST. PATIENT, LEVEL III Diagnosis: Gastro-esophageal reflux disease without esophagitis[ICD10: K21.9] Caty Ledesma MD [facility] CPT-4: 13767 01/23/2016 ([id number]) 12643 EST. PATIENT, LEVEL IV Diagnosis: Type 2 diabetes mellitus without complications[ICD10: E11.9] Diagnosis: Gastro-esophageal reflux disease without esophagitis[ICD10: K21.9] Diagnosis: Functional diarrhea[ICD10: K59.1] Caty Ledesma MD [facility] CPT-4: 80767 12/26/2015 59831 EST. PATIENT, LEVEL IV Diagnosis: Other seasonal allergic rhinitis[ICD10: J30.2] Diagnosis: Acute recurrent maxillary sinusitis[ICD10: J01.01] Diagnosis: Cough[ICD10: R05] Estrella Ledesma MD, [facility] CPT-4: 62712 11/02/2015 42547 EST. PATIENT, LEVEL III Diagnosis: Acute recurrent maxillary sinusitis[ICD10: J01.01] Diagnosis: Urgency of urination[ICD10: R39.15] Diagnosis: Cough[ICD10: R05] Diagnosis: Acute laryngopharyngitis[ICD10: J06.0] Estrella Ledesma MD [facility] CPT-4: 83167 09/13/2015 29536 EST. PATIENT, LEVEL IV Diagnosis: Pain in left lower leg[ICD10: M79.662] Diagnosis: Cramp and spasm[ICD10: R25.2] Diagnosis: Acute nasopharyngitis [common cold][ICD10: J00] Estrella Ledesma MD [facility] CPT-4: 92648 09/07/2015 ([id number]) 86146 EST. PATIENT, LEVEL IV Diagnosis: Essential (primary) hypertension[ICD10: I10] Diagnosis: Type 2 diabetes mellitus without complications[ICD10: E11.9] Diagnosis: Varicose veins of unspecified lower extremities with other complications[ICD10: I83.899] Caty Ledesma MD [facility] CPT-4: 51229 08/16/2015 ([id number]) 02350 EST. PATIENT, LEVEL IV Diagnosis: Type 2 diabetes mellitus without complications[ICD10: E11.9] Diagnosis: Other mixed anxiety disorders[ICD10: F41.3] Diagnosis: Vitamin deficiency, unspecified[ICD10: E56.9] Diagnosis: Essential (primary) hypertension[ICD10: I10] Caty Ledesma MD [facility] CPT-4: 08491 06/13/2015 ([id number]) 83028 EST. PATIENT, LEVEL IV Diagnosis: ESSENTIAL HYPERTENSION[ICD9: 401.9] Diagnosis: CHRONIC PAIN SYNDROME[ICD9: 338.4] Caty Ledesma MD [facility] CPT-4: 72495 05/10/2015 ([id number]) 46747 EST. PATIENT, LEVEL III Diagnosis: Back pain[ICD9: 724.5] Diagnosis: URINARY FREQUENCY[ICD9: 788.41] Caty Ledesma MD [facility] CPT- 4: 52032 03/22/2015 ([id number]) 44391 EST. PATIENT, LEVEL IV Diagnosis: ESSENTIAL HYPERTENSION[ICD9: 401.9] Diagnosis: DIABETES TYPE II[ICD9: 250.00] Diagnosis: Varicose vein[ICD9: 454.9] Caty Ledesma MD [facility] CPT- 4: 84146 01/17/2015 ([id number]) 18449 EST. PATIENT, LEVEL IV Diagnosis: HEADACHE[ICD9: 784.0] Diagnosis: Neck pain[ICD9: 723.1] Diagnosis: Vision changes[ICD9: 368.9] Diagnosis: Nausea[ICD9: 787.02] Mira Ledesma MD, [facility] CPT-4: 04608 11/22/2014 ([id number]) 52688 EST. PATIENT, LEVEL I Diagnosis: Meningitis exposure[ICD9: V01.89] Caty Ledesma MD [facility] CPT-4: 74538 11/11/2014 ([id number]) 56495 EST. PATIENT, LEVEL IV Diagnosis: Elevated blood sugar[ICD9: 790.29] Diagnosis: ESSENTIAL HYPERTENSION[ICD9: 401.9] Caty Ledesma MD [facility] CPT-4: 61234 10/27/2014 ([id number]) 29569 EST. PATIENT, LEVEL IV Diagnosis: Costochondritis[ICD9: 733.6] Diagnosis: ALLERGIC RHINITIS[ICD9: 477.9] Diagnosis: Vitamin D deficiency[ICD9: 268.9] Diagnosis: Elevated blood sugar[ICD9: 790.29] Mira Ledesma MD [facility] CPT-4: 97468 10/15/2014 ([id number]) 27400 EST. PATIENT, LEVEL IV Diagnosis: ESSENTIAL HYPERTENSION[ICD9: 401.9] Diagnosis: Diarrhea[ICD9: 787.91] Caty Ledesma MD [facility] CPT-4: 57669 09/30/2014 ([id number]) 21333 EST. PATIENT, LEVEL IV Diagnosis: Raynauds disease[ICD9: 443.0] Diagnosis: Nausea[ICD9: 787.02] Diagnosis: ESSENTIAL HYPERTENSION[ICD9: 401.9] Caty Ledesma MD [facility] CPT-4: 20594 07/14/2014 ([id number]) 23390 EST. PATIENT, LEVEL IV Diagnosis: ESSENTIAL HYPERTENSION[ICD9: 401.9] Diagnosis: Esophageal reflux[ICD9: 530.81] Diagnosis: Hyponatremia[ICD9: 276.1] Diagnosis: OBESITY[ICD9: 278.00] Diagnosis: Chronic migraine[ICD9: 346.70] Caty Ledesma MD [facility] CPT- 4: 00697 06/23/2014 ([id number]) 01083 EST. PATIENT, LEVEL IV Diagnosis: ESSENTIAL HYPERTENSION[ICD9: 401.9] Diagnosis: GERD (gastroesophageal reflux disease)[ICD9: 530.81] Diagnosis: Costochondritis[ICD9: 733.6] Mira Ledesma MD [facility] CPT-4: 73457 04/09/2014 ([id number]) 10631 EST. PATIENT, LEVEL IV Diagnosis: ESSENTIAL HYPERTENSION[ICD9: 401.9] Diagnosis: RAYNAUD'S SYNDROME[ICD9: 443.0] Caty Ledesma MD [facility] CPT- 4: 51521 03/16/2014 ([id number]) 36459 EST. PATIENT, LEVEL III Diagnosis: ESSENTIAL HYPERTENSION[SNOMED: 99681283] Diagnosis: ALLERGIC RHINITIS[ICD9: 477.9] Diagnosis: Knee pain[ICD9: 719.46] Caty Ledesma MD [facility] CPT-4: 95239 01/12/2014 ([id number]) 72038 EST. PATIENT, LEVEL IV Diagnosis: ALLERGIC RHINITIS[ICD9: 477.9] Diagnosis: ESSENTIAL HYPERTENSION[SNOMED: 70343698] Diagnosis: Fatigue[ICD9: 780.79] Caty Ledesma MD, [facility] CPT-4: 79374 12/15/2013 ([id number]) 59850 EST. PATIENT, LEVEL III Diagnosis: ESSENTIAL HYPERTENSION[SNOMED: 05837749] Diagnosis: Skin lesion[ICD9: 709.9] Diagnosis: Raynauds disease[ICD9: 443.0] Caty Ledesma MD [facility] CPT- 4: 47291 10/20/2013 ([id number]) 97756 EST. PATIENT, LEVEL III Diagnosis: ACUTE SINUSITIS[ICD9: 461.9] Caty Ledesma MD [facility] CPT- 4: 38004 09/15/2013 ([id number]) 06992 EST. PATIENT, LEVEL IV Diagnosis: ESSENTIAL HYPERTENSION[SNOMED: 89191874] Diagnosis: Peripheral neuropathy[ICD9: 356.9] Diagnosis: Vitamin D deficiency[ICD9: 268.9] Diagnosis: Vitamin B12 deficiency[ICD9: 266.2] Caty Ledesma MD [facility] CPT-4: 76971 07/27/2013 ([id number]) 10788 EST. PATIENT, LEVEL III Diagnosis: ACUTE SINUSITIS[ICD9: 461.9] Diagnosis: COUGH[ICD9: 786.2] Mira Ledesma MD, [facility] CPT-4: 57171 06/09/2013 50690 EST. PATIENT, LEVEL IV Diagnosis: HEADACHE[ICD9: 784.0] Diagnosis: Dysphagia[ICD9: 787.20] Diagnosis: Esophageal reflux[ICD9: 530.81] Caty Ledesma MD [facility] CPT- 4: 03709 04/20/2013 ([id number]) 19748 EST. PATIENT, LEVEL IV Diagnosis: Seasonal allergic rhinitis[ICD9: 477.9] Diagnosis: HEADACHE[ICD9: 784.0] Diagnosis: ESSENTIAL HYPERTENSION[SNOMED: 23440746] Caty Ledesma MD [facility] CPT-4: 11343 03/23/2013 ([id number]) 49831 EST. PATIENT, LEVEL III Diagnosis: ABNORMALITY OF GAIT[ICD9: 781.2] Diagnosis: B-COMPLEX DEFIC NEC[ICD9: 266.2] Caty Ledesma MD, [facility] CPT-4: 94514 01/21/2013 ([id number]) 95361 EST. PATIENT, LEVEL IV Diagnosis: ESSENTIAL HYPERTENSION[SNOMED: 86696517] Diagnosis: Breast pain[ICD9: 611.71] Caty Ledesma MD [facility] CPT-4: 96724 12/25/2012 ([id number]) 41184 EST. PATIENT, LEVEL III Diagnosis: ESSENTIAL HYPERTENSION[SNOMED: 01680063] Diagnosis: ACUTE URI[ICD9: 465.9] Caty Ledesam MD, [facility] CPT-4: 22570 10/20/2012 ([id number]) 09735 EST. PATIENT, LEVEL IV Diagnosis: B-COMPLEX DEFIC NEC[ICD9: 266.2] Diagnosis: ESSENTIAL HYPERTENSION[SNOMED: 84497861] Diagnosis: Gait instability[ICD9: 781.2] Diagnosis: Back pain[ICD9: 724.5] [facility] CPT-4: 52097 08/11/2012 OFFICE VISIT, NEW - LEVEL 4 Diagnosis: ESSENTIAL HYPERTENSION[SNOMED: 50278603] Diagnosis: ACUTE SINUSITIS[ICD9: 461.9] Diagnosis: Gait instability[ICD9: 781.2] Diagnosis: Weakness of both legs[ICD9: 729.89] Mira Ledesma MD, [facility] CPT-4: 20551 07/10/2012 Plan of Care Planned Activity Notes [...] of pristiq 08/06/2018 Appointment: Caty Ledesma WPtel: [address] [place], [place] [phone] (15 min) Moderate 08/06/2018 Patient Education: Patient Medication Summary Completed 08/06/2018 Patient Education: Patient Medication Summary Completed 07/09/2018 Care Plan: SCREENINGMAMMOGRAPHYDIGITAL LOINC : 86706-1 Pending 07/09/2018 Visit Plan: Hypertension - well [...] dosing. 07/08/2018 Appointment[phone] [place] (15 min) Moderate 07/08/2018 Patient Education: [...] medications. 02/11/2018 Appointment: [phone] [facility] [place] (15 min) Moderate 02/11/2018 Patient Education: [...] 25mcg daily. 11/12/2017 Appointment: Caty Ledesma [facility]Ptel[facility] (15 min) Moderate 11/12/2017 Patient Education: Patient [...] well. 08/20/2017 Appointment: [phone] [facility] [place] (15 min) Moderate 08/20/2017 Patient Education: [...] Dr Weaver 06/24/2017 Appointment: Mira Valladares WPtel: [phone] [place] (30 min) Complex 06/24/2017 Patient Education: [...] controlled. 05/22/2017 Appointment: Caty Ledesma WPtel: [phone] [facility] (15 min) Moderate 05/22/2017 Patient Education: Patient Medication Summary Completed 05/22/2017 Visit Plan: Sinusitis - Pt has acute infection - pain in face, maxillary region, Pt informed to use decongestant, RX given to patient, sinus rinses also recommended. Call if symptoms do not show improvement. 05/10/2017 Appointment: Mira Valladares [phone] [phone] [place] (15 min) Moderate 05/10/2017 Patient Education: Patient Medication Summary Completed 05/10/2017 Visit Plan: Fatigue - daytime - recommended sleep study, change pristiq to night-time dosing. Sleep study to be scheduled - RX for sleep study sent to hospital. - pt has significant sleepiness during the day - she had a score of 17 on epiworth sleepiness scale. 04/08/2017 Appointment: [phone] [place] (15 min) Moderate 04/08/2017 Patient Education: [...] thyroid ultrasound. 02/20/2017 Appointment: [phone] [facility] [place] (30 min) Complex 02/20/2017 Patient Education: [...] my patient. 11/21/2016 Appointment: [facility] Led[phone] [facility] [place] (15 min) Moderate 11/21/2016 Patient Education: [...] improving. 08/29/2016 Appointment: [facility] Led[phone] [facility] [place] (30 min) Complex 08/29/2016 Patient Education: Patient Medication Summary Completed 08/29/2016 Patient Education: Hypertension Completed 08/29/2016 Visit Plan: referral to dr. aburto for cysts of right abdomen near ribs 07/05/2016 Appointment: [facility] Led[phone] [facility] (15 min) Moderate 07/05/2016 Patient Education: Patient [...] stomach pain. 06/04/2016 Appointment: Estrella Bynum [facility]el[phone] [facility] (15 min) Moderate 06/04/2016 Patient Education: Patient [...] of plan. 04/10/2016 Appointment: Mira Valladares WPtel: [phone] [phone] [place] (30 min) Complex 04/10/2016 Patient Education: [...] 12/26/2015 Care Plan: Referral Order SNOMED-CT : 040936266 Pending 12/26/2015 Appointment: Caty Ledesma WPtel: [facility] [place] (15 min) Moderate 12/19/2015 Visit Plan: [...] to keep appt with Dr. Kwon in [place] for treatment of varicose veins. 08/16/2015 Patient [...] over-medication. 05/10/2015 Appointment: [facility] Led[phone] [facility] Follow up 05/10/2015 Patient Education: Patient Medication [...] veins - referral to Vascular team from [facility] 01/17/2015 Appointment: [facility] Led[phone] [facility] Follow up 01/17/2015 Patient Education: Patient Medication Summary Completed 01/17/2015 Patient Education: Hypertension Completed 01/17/2015 Care Plan: Referral Order referral to [facility] for varicose veins - need to see if the patient can have her ultrasound studies HERE with [employer] SNOMED-CT : [id number] Ordered 01/17/2015 Appointment: [facility] Led[phone] [facility] Follow [facility] 01/04/2015 Visit Plan: Worsening ifloprsw-vokgta-etfk injury 1 week ago-recommend CT head due [...] three weeks. 10/27/2014 Appointment: Caty Ledesma WPtel: [facility] Follow up 10/27/2014 Patient Education: Patient Medication [...] the nasal steroid allergy spray. Elevated blood ininje-xabxgsufe-hemkve-check Hgb A1c as well as TSH Vitamin D deficiency-check vitamin D level 10/15/2014 Appointment: Follow up 10/15/2014 Patient Education: Patient Medication Summary Completed 10/15/2014 Care Plan: TSH Pending 10/15/2014 Care Plan: A1C HPLC [facility] : 59892-2 Pending 10/15/2014 Care Plan: VIT D TOTL [...] stomach pain. 09/30/2014 Appointment: Caty Ledesma WPtel: [address] [place], [place] [phone] Follow up 09/30/2014 Patient Education: Patient Medication Summary Completed 09/30/2014 Patient Education: Hypertension Completed 09/30/2014 Appointment: Caty Ledesma WPtel: [address] [place], [place] [phone] Follow up 09/29/2014 Visit Plan: Nausea - [...] at home. 07/14/2014 Appointment: Caty Ledesma WPtel: [address] [place], [place] [phone] Follow up 07/14/2014 Patient Education: Patient Medication [...] check labs. 06/23/2014 Appointment: Caty Ledesma WPtel: [facility]6 [facility] Follow up 06/23/2014 Patient Education: Patient [...] worsening. 03/16/2014 Appointment: [facility] Led[phone] [facility] Follow up 03/16/2014 Patient Education: Patient Medication [...] allergy spray. 01/12/2014 Appointment: [facility] Led[facility]ma [facility]el[phone] Follow [facility] 01/12/2014 Patient Education: Patient Medication [...] labs 12/15/2013 Appointment: Mira Valladares WPtel: [phone] [phone] [place] [address] Follow up 12/15/2013 Patient Education: Patient Medication [...] - on scalp - referral to her supervisor industrial [employer] - Dr. Teran. Recommended pt to call for appt. Raynaud - very mild case - pt to continue with norvasc, monitor symptoms, keep hands warm, call if symptoms worsen, if fingers turn and stay persistently purple, will consider topical treatments versus increase in norvasc. 10/20/2013 Appointment: Caty Ledesma WPtel: [address] [place], [place] [phone] Follow up 10/20/2013 Patient Education: Patient Medication Summary Completed 10/20/2013 Patient Education: Hypertension Completed 10/20/2013 Visit Plan: Sinusitis - Pt has acute infection - pain in face, maxillary region, Pt informed to use decongestant, RX given to patient, sinus rinses also recommended. Call if symptoms do not show improvement. 09/15/2013 Appointment: Caty Ledesma WPtel: [facility] Sick 09/15/2013 Patient Education: Patient Medication [...] tolerance test. 07/27/2013 Appointment: Caty Ledesma WPtel: [facility] Follow up 07/27/2013 Patient Education: Patient Medication Summary Completed 07/27/2013 Patient Education: Hypertension Completed 07/27/2013 Visit Plan: Sinusitis - Pt has acute infection - pain in face, maxillary region, Pt informed to use decongestant, RX given to patient, sinus rinses also recommended. Call if symptoms do not show improvement. 06/09/2013 Appointment: Mira Valladares WPtel: [address] [place], [place] [phone] Sick 06/09/2013 Patient Education: Patient Medication Summary [...] and pepcid 04/20/2013 Appointment: Mira Valladares WPtel: [facility]5 [phone] Other 04/20/2013 Patient Education: Patient Medication [...] home. 03/23/2013 Appointment: [facility] Led[phone] Follow [facility] 03/23/2013 Patient Education: Patient Medication Summary Completed 03/23/2013 Patient Education: Hypertension Completed 03/23/2013 Visit Plan: Gait abnormality with falling at home and hitting head - suspect concussion - recommend that Stephanie Amaya at [facility] for balance and gait training. B12 deficiency - improved with b12 shots, will have patient go back to every 2 week injections instead of weekly injections. 01/21/2013 Appointment: Cat[facility] Led[facility]ma [facility]el[phone] Follow [facility] 01/21/2013 Patient Education: Patient Medication [...] have mammo. 12/25/2012 Appointment: [phone] Follow up 12/25/2012 Patient Education: Patient Medication [...] today. 10/20/2012 Appointment: [facility] Led[phone] Follow up 10/20/2012 Patient Education: Patient Medication Summary Completed 10/20/2012 Patient Education: Hypertension Completed 10/20/2012 Appointment: [facility] Ledesma [facility]Ptel: [phone] [phone] [place] Injection 09/11/2012 Patient Education: Patient Medication Summary Completed 09/11/2012 Appointment: Cat[facility] Ledesma [facility]Ptel: [phone] [phone] [place] Injection 08/18/2012 Visit Plan: Hypertension - [...] surgeon. 08/11/2012 Appointment: Caty Ledesma WPtel: [phone] [facility] Follow up 08/11/2012 Patient Education: Patient Medication Summary Completed 08/11/2012 Patient Education: Hypertension Completed 08/11/2012 Appointment: Caty Ledesma WPtel: [phone] [phone] [place] Injection 07/21/2012 Patient Education: Patient Medication [...] level. 07/10/2012 Appointment: Mira Valladares [facility]Ptel: [phone] [facility] [place] [address] New Patient 07/10/2012 Patient Education: Patient Medication Summary Completed 07/10/2012 Patient Education: High Blood Pressure: Essential Hypertension Completed 2011 Referral: Blaise Aburto Info. faxed Completed Referral: Blaise Aburto Referral Appointment Requested Referral: [facility], - Referral Appointment Requested Instructions [...] illness - no change in current management Hold Aspirin, Lovaza, Antara, and Zetia for [...] the end of the three weeks.. . Paronychia-left great toe-culture of toe today in the office-use bactroban ointment as directed-call if symptoms do not resolve or if any worse. Patient verbalized understanding of plan. . Diarrhea, left upper quadrant pain, left [...] upset or stomach pain. . Hypertension - uncontrolled - the patient's [...] the nasal steroid allergy spray. Elevated blood pedshv-ealdrbtbk-oicibg-check Hgb A1c as well as TSH Vitamin [...] 17 on epiworth sleepiness scale. . Worsening ciivuczj-amyeqp-bffi injury 1 week ago- recommend CT head [...] diet, call if symptoms not improving. . Hypertension - well controlled [...] on lower abdomen - healing well. . Sinusitis - Pt has acute infection - pain in face, maxillary region, Pt informed to use decongestant, RX given to patient, sinus rinses also recommended. Call if symptoms do not show improvement. . URI - Pt advised to increase [...] to keep appt with Dr. Kwon in [place] for treatment of varicose veins. . Sinusitis [...] veins - referral to Vascular team from [facility] RESTART NASAL SPRAY TWICE DAILY CHECK BLOOD [...] concussion - recommend that Stephanie Amaya at [facility] for balance and gait training. B12 [...] - on scalp - referral to her supervisor industrial [employer] - Dr. Teran. Recommended pt to call [...] if the symptoms are not improving. . Allergies - chronic - recommended pt [...]
[2019-01-07] MEDS ORDERED: fentaNYL INJECTION 100 MCG/2 ML AMP ONE (08:27)
[2019-01-07] MEDS ORDERED: MIDAZOLAM 5 MG/5 ML (VERSED) VIAL ONE (08:27)
--- OUTSIDE RECORDS SUMMARY | 2019-01-07 08:27 | XMS REPORT | CCD ---
Author Author Mira Valladares Organization [facility] Address [address] [place] [address] Phone Care Team Providers Care Um Nurse Name Role Phone PP Unavailable CCM Unavailable Summary Purpose Interface Exchange Insurance Providers Payer name Policy type / Coverage type Covered green party ID Effective Begin Date Effective End Date [facility] Commercial Insurance [id number] 2013 Unknown [place]PS Medicare Part B Commercial Insurance [id number] 2013 Unknown Family history Daughter Diagnosis Age [...] status Unknown 03/26/[address]: 4069761 Former smoker quit 1979 03/26/2016 Number of children Unknown 3 07/10/[address]: 755455168 Never drinks alcohol 07/10/2012 Has the patient ever used illegal drugs? Unknown Has never used illegal drugs 07/10/2012 Allergies, Adverse Reactions, Alerts Substance Reaction Codes Entered Date Inactivated Date Status cymbalta RxNorm: 315724 07/14/2012 No Inactive Date Active Savella nausea RxNorm: 963541 07/14/2012 No Inactive Date Active Metanx nausea RxNorm: 524754 07/14/2012 No Inactive Date Active Gluten Unknown 07/10/2012 No Inactive Date Active Peanuts Unknown 07/10/2012 No Inactive Date Active Levaquin hives RxNorm: 38090 07/14/2012 No Inactive Date Active macrobid pruritis, hives, RxNorm: 467713 07/14/2012 No Inactive Date Active percocet pruritis RxNorm: 300268 07/14/2012 No Inactive Date Active PREDNISONE pruritis, RxNorm: 8640 07/14/2012 No Inactive Date Active ultram pruritis, hives RxNorm: 52041 06/11/2016 No Inactive Date Active GABAPENTIN nausea, [...] Start Date Stop Date Status Fill Instructions amlodipine 5 mg tablet RxNorm: 533629 1 Tablet(s) PO daily 11/19/2019 Active topiramate 100 mg tablet RxNorm: 313566 1/2 Tablet(s) PO BID 08/04/2019 Active [SAVINGS FOR UNINSURED PATIENTS -- BIN:869146, PCN: ASPROD1, Group: [id number], ID# [id number], Process claim through [employer], for questions: . THIS IS NOT INSURANCE.] Pristiq 50 mg tablet,extended release RxNorm: 225877 1 Tablet(s) PO BID 08/06/2018 07/31/2019 Active amlodipine 10 mg tablet RxNorm: 749299 1/2 Tablet(s) PO daily 08/06/2018 08/26/2018 Inactive Voltaren 1 % topical gel RxNorm: 196178 APPLY 2 GRAMS TOPICALLY FOUR TIMES A DAY 07/24/2018 10/31/2018 Active Fish Oil 1,000 mg capsule RxNorm: 1 Capsule(s) PO TID 201707/02/2019 Active Valium 5 mg tablet RxNorm: 256528 1 Tablet(s) PO PRN as needed 07/08/2018 No Stop Date Active Vagifem 10 mcg vaginal tablet RxNorm: 457297 1 Tablet(s) VAG daily 07/08/2018 No Stop Date Active naproxen sodium 550 mg tablet RxNorm: 292919 Tablet(s) as needed TAKE 1 TABLET BY MOUTH TWO TIMES DAILY 07/08/20182018 Active - Ref: [id number] Pristiq 100 mg tablet,extended release RxNorm: 551673 1 Tablet(s) PO daily 07/08/2018 08/05/2018 Inactive Voltaren 1 % topical gel RxNorm: 430759 APPLY 2 GRAMS TOPICALLY FOUR TIMES A DAY 07/08/2018 07/23/2018 Inactive topiramate 100 mg tablet RxNorm: 006125 1 Tablet(s) PO BID 08/05/2018 Inactive [SAVINGS FOR UNINSURED PATIENTS -- BIN:[id number], PCN: ASPROD1, Group: [id number] , ID# [id number], Process claim through [employer], for questions: . THIS IS NOT INSURANCE.] Valium 5 mg tablet RxNorm: 903754 1 Tablet(s) PO PRN as needed 06/24/2018 07/07/2018 Inactive folic acid 1 mg tablet RxNorm: 463900 TAKE ONE TABLET BY MOUTH EVERY DAY 05/27/2018 04/21/2019 Active Valium 5 mg tablet RxNorm: 547470 1 Tablet(s) PO PRN as needed 02/21/2018 No Stop Date Active Valium 5 mg tablet RxNorm: 527049 1 Tablet(s) PO PRN as needed 11/12/2017 02/20/2018 Inactive Synthroid 25 mcg tablet RxNorm: 550667 1 Tablet(s) PO daily 02/201811/11/2017 Inactive Synthroid 25 mcg tablet RxNorm: 848727 1 Tablet(s) PO daily 02/201802/10/2018 Inactive Nitro-Bid 2 % transdermal ointment RxNorm: 132265 APPLY TO AFFECTED AREA(S) TOPICALLY THREE TIMES A DAY NEEDED FOR RAYNAUDS SYMPTOMS OF FEET 08/26/2017 10/24/2017 Inactive Vitamin B-12 1,000 mcg/mL injection solution RxNorm: 480907 INJECT 1ML INTRAMUSCULARLY ONCE WEEKLY 08/23/2017 Inactive Request already responded to by other means (e.g. phone or fax) Vitamin B-12 1,000 mcg/mL injection solution RxNorm: 809802 Milliliter(s) INJECT 1ML INTRAMUSCULARLY ONCE WEEKLY 08/21/2017 08/22/2017 Inactive naproxen sodium 550 mg tablet RxNorm: 351392 TAKE 1 TABLET BY MOUTH TWO TIMES DAILY 08/09/2017 11/06/2017 Inactive - Ref: [id number] Combivent Respimat 20 mcg-100 mcg/actuation solution for inhalation RxNorm: 3648761 1-2 Puff(s) INH Q4 PRN 07/26/2017 No Stop Date Active Valium 5 mg tablet RxNorm: 910976 1 Tablet(s) PO PRN as needed 06/27/2017 11/11/2017 Inactive doxycycline hyclate 100 mg tablet RxNorm: 465849 1 Tablet(s) PO BID 06/24/2017 06/30/2017 Inactive azithromycin 250 mg tablet RxNorm: 208310 1 Tablet(s) PO UD 2 tabs on day #1, then 1 pill daily x 4 more days 05/22/2017 08/20/2017 Inactive hydrocodone 10 mg-chlorpheniramine 8 mg/5 mL oral susp extend.rel 12hr RxNorm: 6642427 5 PO as needed 05/10/20172017 Inactive Augmentin 875 mg-125 mg tablet RxNorm: 168914 1 Tablet(s) PO BID 05/10/2017 05/16/2017 Inactive folic acid 1 mg tablet RxNorm: 618922 TAKE ONE TABLET BY MOUTH EVERY DAY 05/09/2017 05/03/2018 Inactive Carafate 1 gram tablet RxNorm: 623166 TAKE ONE TABLET BY MOUTH FOUR TIMES A DAY 30 MINUTES BEFORE MEALS AND AT BEDTIME 03/18/2017 07/07/2018 Inactive scopolamine 1.5 mg transdermal patch (1 mg over 3 days) RxNorm: 237530 1 Patch TD Q72H use for sea sickness 02/20/201703/05 Inactive Pristiq 50 mg tablet,extended release RxNorm: 911197 1 Tablet(s) PO daily 01/15/2017 07/07/2018 Inactive Pristiq 50 mg tablet,extended release RxNorm: 860900 1 Tablet(s) PO BID 12/20/2016 01/14/2017 Inactive naproxen sodium 550 mg tablet RxNorm: 164317 Tablet(s) Take 1 tablet by mouth twice a day 11/14/2016 08/08/2017 Inactive KimaniTouch Delica Lancets 33 gauge RxNorm: TEST TWO TIMES A DAY 11/12/2016 04/10/2017 Inactive Phenergan VC-Codeine 6.25 mg-5 mg-10 mg/5 mL syrup RxNorm: 320947 5 Milliliter(s) PO Q6 as needed cough 09/06/20162016 Inactive Nitro-Bid 2 % transdermal ointment RxNorm: 854995 APPLY TO AFFECTED AREA(S) TOPICALLY THREE TIMES A DAY NEEDED FOR RAYNAUDS SYMPTOMS OF FEET 08/21/2016 10/19/2016 Inactive Voltaren 1 % topical gel RxNorm: 403707 APPLY 2 GRAMS TOPICALLY FOUR TIMES A DAY 08/21/2016 12/22/2016 Inactive Vitamin B-12 1,000 mcg/mL injection solution RxNorm: 147651 INJECT 1ML INTRAMUSCULARLY ONCE WEEKLY 08/21/2016 Inactive folic acid 1 mg tablet RxNorm: 453010 TAKE ONE TABLET BY MOUTH EVERY DAY 08/13/2016 04/09/2017 Inactive Flagyl 500 mg tablet RxNorm: 532750 1 Tablet(s) PO TID 201506/22/2016 Inactive Cholestyramine Light 4 gram oral powder RxNorm: 816966 1 packet PO PRN as needed 06/11/2016 No Stop Date Active Flexeril 10 mg tablet RxNorm: 940499 1 Tablet(s) PO as needed 02/19/2017 Inactive 1 hs Vagifem 10 mcg vaginal tablet RxNorm: 593356 1 Tablet(s) VAG BIW -TIW 06/11/2016 07/07/2018 Inactive Flagyl 500 mg tablet RxNorm: 761579 1 Tablet(s) PO TID 201506/10/2016 Inactive Lomotil 2.5 mg-0.025 mg tablet RxNorm: 2263335 1 Tablet(s) PO AC & HS as needed 04/24/2016 05/23/2016 Inactive Keflex 500 mg capsule RxNorm: 414947 1 Capsule(s) PO TID 201504/11/2016 Inactive Keflex 500 mg capsule RxNorm: 656966 1 Capsule(s) PO TID 201504/18/2016 Inactive Pristiq 50 mg tablet,extended release RxNorm: 939431 1 Tablet(s) PO QAM 03/30/2016 12/19/2016 Inactive amitriptyline 25 mg tablet RxNorm: 179891 1/2 Tablet(s) PO QHS x [address] pablo 03/30/2016 06/10/2016 Inactive potassium chloride 20 mEq/15 mL oral liquid RxNorm: 952024 TAKE 2 TABLESPOONS DAILY 03/23/2016 09/18/2016 Inactive Glucocard Vital Sensor strips RxNorm: TEST TWO TIMES A DAY 10/17/2017 Inactive Questran 4 gram oral powder RxNorm: 451504 1 dose PO daily 04/201602/14/2016 Inactive Questran 4 gram oral powder RxNorm: 942318 1 dose PO daily 04/201603/15/2016 Inactive Miralax 17 gram oral powder packet RxNorm: 263341 1 PO daily 02/08/2016 Inactive Miralax 17 gram oral powder packet RxNorm: 090187 1 PO daily 06/10/2016 Inactive Carafate 1 gram tablet RxNorm: 266305 1 Tablet(s) PO QID take 30 minutes before meals and at bedtime 01/23/20162015 Inactive Vitamin D2 50,000 unit capsule RxNorm: 511349 1 Capsule(s) PO QW 12/26/2015 03/24/2016 Inactive Tamiflu 75 mg capsule RxNorm: 994787 1 Capsule(s) PO daily 11/2111/21/2015 Inactive Tamiflu 75 mg capsule RxNorm: 281326 1 Capsule(s) PO daily 11/2112/01/2015 Inactive folic acid 1 mg tablet RxNorm: 860579 TAKE ONE TABLET BY MOUTH EVERY DAY 11/03/2015 07/29/2016 Inactive Keflex 500 mg capsule RxNorm: 545146 1 Capsule(s) PO TID 201511/11/2015 Inactive Augmentin 500 mg-125 mg tablet RxNorm: 076723 1 Tablet(s) PO TID 09/13/2015 09/22/2015 Inactive Zithromax Z-Juanpablo 250 mg tablet RxNorm: 590682 1 Tablet(s) PO 12/25/2015 Inactive OneTouch Delica Lancets 33 gauge RxNorm: 1 test Miscellaneous BID 06/21/2015 06/14/2016 Inactive Nitro-Bid 2 % transdermal ointment RxNorm: 827809 1 Application TD TID as needed raynauds symptoms of feet 06/01/201508/29 Inactive Vitamin B-12 1,000 mcg/mL injection solution RxNorm: 680363 INJECT 1ML INTRAMUSCULARLY ONCE WEEKLY 05/16/201503/2016 Inactive Voltaren 1 % topical gel RxNorm: 965033 2 Gram(s) TOP QID 05/1007/08/2015 Inactive potassium chloride 20 mEq/15 mL oral liquid RxNorm: 495459 TAKE 2 TABLESPOONS DAILY 04/22/2015 10/18/2015 Inactive naproxen sodium 550 mg tablet RxNorm: 149074 Tablet(s) Take 1 tablet by mouth twice a day 03/10/2015 06/01/2016 Inactive naproxen sodium 550 mg tablet RxNorm: 510805 Take 1 tablet by mouth twice a day 03/09/2015 11/15/2016 Inactive 2nd Attempt Pristiq 50 mg tablet,extended release RxNorm: 593106 1 Tablet(s) PO BID 03/09/2015 03/08/2015 Inactive naproxen sodium 550 mg tablet RxNorm: 338642 1 Tablet(s) PO BID 03/09/2015 03/08/2015 Inactive naproxen sodium 550 mg tablet RxNorm: 960691 Take 1 tablet by mouth twice a day 03/09/2015 03/09/2015 Inactive Pristiq 50 mg tablet,extended release RxNorm: 671136 Take 1 tablet twice a day 03/09/2015 03/29/2016 Inactive folic acid 1 mg tablet RxNorm: 177184 TAKE ONE TABLET BY MOUTH EVERY DAY 01/17/2015 11/02/2015 Inactive Vitamin B-12 1,000 mcg/mL injection solution RxNorm: 178121 INJECT 1 MLS DIRECTED ONCE WEEKLY 12/03/20142015 Inactive hydrocodone 10 mg-acetaminophen 325 mg tablet RxNorm: 815907 1 Tablet(s) PO Q6 PRN 11/22/2014 12/21/2014 Inactive [SAVINGS FOR NON-COVERED DRUGS -- BIN:[id number], PCN: ASPROD1, Group: XXXXX, ID# [id number], Questions: . THIS IS NOT INSURANCE.] ceftriaxone 1 gram solution for injection RxNorm: 3159051 Inj 11/11/2014 11/11/2014 Inactive [SAVINGS FOR NON-COVERED DRUGS -- BIN:134248, PCN: ASPROD1, Group: XXXXX, ID# [id number], Questions: . THIS IS NOT INSURANCE.] Glucocard Vital Sensor strips RxNorm: 1 test Miscellaneous BID 10/27/2014 10/26/2014 Inactive DX code 790.29 Glucocard Vital Sensor strips RxNorm: 1 test Miscellaneous BID 10/27/2014 11/20/2015 Inactive DX code 790.29 [SAVINGS FOR UNINSURED PATIENTS -- BIN:564680, PCN: ASPROD1, Group: [id number], ID# [id number], Process claim through [employer], for questions: . THIS IS NOT INSURANCE.] topiramate 100 mg tablet RxNorm: 805581 2 Tablet(s) PO BID 04/27/2015 Inactive [SAVINGS FOR UNINSURED PATIENTS -- BIN:617044, PCN: ASPROD1, Group: [id number] , ID# [id number], Process claim through [employer], for questions: . THIS IS NOT INSURANCE.] Cholestyramine Susp Light 4 gram powder for susp in a packet RxNorm: 638378 packet PO PRN as needed 08/30/20142015 Inactive Nitro-Bid 2 % transdermal ointment RxNorm: 196835 1 Application TD TID as needed raynauds symptoms of feet 07/14/201410/11 Inactive Flonase 50 mcg/actuation nasal spray,suspension RxNorm: 230770 PLACE 2 SPRAYS IN EACH NOSTRIL DAILY 05/25/2014 08/22/2014 Inactive potassium chloride 20 mEq/15 mL oral liquid RxNorm: 918630 2 Tablespoon(s) PO daily 04/20/2014 04/21/2015 Inactive potassium chloride 10 % oral liquid RxNorm: 220735 2 Tablespoon(s) PO daily 04/20/2014 04/19/2014 Inactive potassium chloride 10 % oral liquid RxNorm: 128614 2 Tablespoon(s) PO daily 04/09/2014 04/19/2014 Inactive folic acid 1 mg tablet RxNorm: 866110 Tablet(s) PO TAKE ONE TABLET BY MOUTH EVERY DAY 02/15/2014 No Stop Date Active folic acid 1 mg tablet RxNorm: 724762 Tablet(s) PO TAKE ONE TABLET BY MOUTH EVERY DAY 02/15/2014 01/16/2015 Inactive folic acid 1 mg tablet RxNorm: 258378 1 Tablet(s) PO daily TAKE ONE TABLET BY MOUTH EVERY DAY 02/15/2014 02/14/2014 Inactive Flonase 50 mcg/actuation nasal spray,suspension RxNorm: 931887 1 [place] NASAL BID 01/12/2014 08/09/2014 Inactive topiramate 100 mg tablet RxNorm: 887890 1.5 Tablet(s) PO BID 08/09/2014 Inactive amoxicillin 500 mg capsule RxNorm: 913282 1 Capsule(s) PO TID 12/24/2013 12/30/2013 Inactive amoxicillin 500 mg capsule RxNorm: 741316 1 Capsule(s) PO TID 12/24/2013 12/23/2013 Inactive Pristiq 50 mg tablet,extended release RxNorm: 941270 1 Tablet(s) PO BID 12/01/2013 02/23/2015 Inactive Vitamin B-12 1,000 mcg/mL injection solution RxNorm: 471939 1 Milliliter(s) Inj QW 11/10/2013 11/09/2013 Inactive Vitamin B-12 1,000 mcg/mL injection solution RxNorm: 994869 1 Milliliter(s) Inj QW 11/10/2013 12/02/2014 Inactive Myrbetriq 25 mg tablet,extended release RxNorm: 7261538 1 Tablet(s) PO daily 10/20/2013 08/16/2014 Inactive fluconazole 150 mg tablet RxNorm: 123693 1 Tablet(s) PO daily 09/15/2013 09/19/2013 Inactive amoxicillin 875 mg-potassium clavulanate 125 mg tablet RxNorm: 212541 1 Tablet(s) PO BID 09/15/2013 09/24/2013 Inactive Pristiq 50 mg tablet,extended release RxNorm: 442227 1 Tablet(s) PO BID 07/30/2013 11/30/2013 Inactive Topamax 25 mg tablet RxNorm: 152470 4 Tablet(s) PO BID 201201/11/2014 Inactive vitamin B12 200mcg [place], Suspension RxNorm: 1 [place] PO daily 07/27/2013 12/25/2015 Inactive Flonase 50 mcg/actuation nasal spray,suspension RxNorm: 934151 2 [place] NASAL daily 06/09/2013 07/08/2013 Inactive Carafate 1 gram tablet RxNorm: 159490 1 Tablet(s) PO ac and hs 05/07/2013 05/06/2013 Inactive Carafate 1 gram tablet RxNorm: 512833 1 Tablet(s) PO ac and hs 05/07/2013 05/31/2014 Inactive potassium chloride 10 % Oral Liquid RxNorm: 756363 1 Tablespoon(s) PO daily 03/23/2013 04/08/2014 Inactive folic acid 1 mg tablet RxNorm: 981685 Tablet(s) PO TAKE ONE TABLET BY MOUTH EVERY DAY 01/29/2013 02/14/2014 Inactive naproxen sodium 550 mg tablet RxNorm: 491052 1 Tablet(s) PO BID 01/21/2013 10/26/2014 Inactive hydrocodone 5 mg-acetaminophen 500 mg tablet RxNorm: 728636 1 Tablet(s) PO Q8 PRN 12/25/2012 02/19/2017 Inactive folic acid 1 mg tablet RxNorm: 704964 1 Tablet(s) PO daily 01/28/2013 Inactive cyanocobalamin (vitamin B-12) 1,000 mcg/mL Injection RxNorm: 318735 1 Milliliter(s ) Inj 2 x month inject 1 mL every other week intramuscularly 11/03/2012 11/02/2012 Inactive please provide 25 gauge syringes as well. cyanocobalamin (vitamin B-12) 1,000 mcg/mL Injection RxNorm: 811843 Milliliter(s) Inj 11/03/2012 11/03/2012 Inactive cyanocobalamin (vitamin B-12) 1,000 mcg/mL Injection RxNorm: 038898 1 Milliliter(s ) Inj 2 x month inject 1 mL every other week intramuscularly 11/03/2012 12/25/2015 Inactive please provide 25 gauge syringes as well. cyanocobalamin (vitamin B-12) 1,000 mcg/mL Injection RxNorm: 867265 1 Milliliter(s ) Inj 10/20/2012 10/20/2012 Inactive Vitamin B-12 1,000 mcg/mL Injection RxNorm: 501388 1 Milliliter(s) Inj 09/11/2012 09/11/2012 Inactive Zithromax Z-Juanpablo 250 mg tablet RxNorm: 673160 Tablet(s) PO UD 12/24/2012 Inactive please give z juanpablo hydrochlorothiazide 25 mg tablet RxNorm: 657416 1/2 Tablet(s) PO daily 08/11/2012 No Stop Date Active Vitamin B-12 1,000 mcg/mL Injection RxNorm: 152746 Milliliter(s) Inj 08/11/2012 08/11/2012 Inactive Vitamin D2 50,000 unit capsule RxNorm: 255428 Capsule(s) PO one weekly for 8 weeks then resume her daily dosing 07/21/2012 07/20/2012 Inactive Vitamin B-12 1,000 mcg/mL Injection RxNorm: 905220 Milliliter(s) Inj 07/21/2012 07/21/2012 Inactive Vitamin D2 50,000 unit capsule RxNorm: 840250 Capsule(s) PO one weekly for 8 weeks then resume her daily dosing 07/21/2012 09/18/2012 Inactive Diflucan 150 mg tablet RxNorm: 017470 1 Tablet(s) PO daily 09/201107/12/2012 Inactive HyoMax-SR 0.375 mg tablet,extended release RxNorm: 1912955 Tablet(s) PO PRN No Start Date Active Maxalt-CASE MAKER 10 mg disintegrating tablet RxNorm: 609985 Tablet(s) PO PRN No Start Date Active Vitamin D3 2,000 unit tablet RxNorm: 890634 1 Tablet(s) PO daily No Start Date Active potassium chloride 20 mEq/15 mL oral liquid RxNorm: 034399 2 Tablespoon(s) PO daily No Start Date Active Zetia 10 mg tablet RxNorm: 460286 1 Tablet(s) PO QPM No Start Date Active metoprolol tartrate 50 mg tablet RxNorm: 053049 1 Tablet(s) PO BID No Start Date Active biotin 2,500 mcg tablet RxNorm: 275900 1 Tablet(s) PO daily No Start Date Active Zyrtec 10 mg tablet RxNorm: 4408215 1 Tablet(s) PO PRN No Start Date Active Praluent Pen 75 mg/mL subcutaneous pen injector RxNorm: 0955601 1 Milliliter(s) SQ Q 2 weeks No Start Date Active Fioricet oral RxNorm: 933628 oral No Start Date Active Cholestyramine Susp Light 4 gram Packet RxNorm: 700742 packet PO PRN No Start Date 08/29/2014 Inactive Pristiq 50 mg tablet,extended release RxNorm: 733949 1 Tablet(s) PO daily No Start Date 07/29/2013 Inactive Topamax 25 mg tablet RxNorm: 649145 3 Tablet(s) PO BID No Start Date 07/29/2013 Inactive pantoprazole 40 mg tablet,delayed release RxNorm: 671732 1 Tablet(s) PO daily No Start Date 07/07/2018 Inactive Tricor 145 mg tablet RxNorm: 724593 1 Tablet(s) PO daily No Start Date 12/24/2012 Inactive Zithromax Z-Juanpablo 250 mg tablet RxNorm: 766402 Tablet(s) PO UD No Start Date 08/11/2012 Inactive Fish Oil 1,000 mg capsule RxNorm: 1 Capsule(s) PO BID No Start Date 07/07/2018 Inactive Vitamin D3 2,000 unit capsule RxNorm: 437303 1 Capsule(s) PO daily No Start Date 12/25/2015 Inactive Vagifem 10 mcg vaginal tablet RxNorm: 245096 1-2 Tablet(s) VAG weekly No Start Date 06/10/2016 Inactive Gelnique 10 % (100 mg/gram) transdermal gel packet RxNorm: 538438 3% gel 3 pumps TD daily No Start Date 08/09/2014 Inactive Vitamin D3 5,000 unit tablet RxNorm: 548632 1 Tablet(s) PO daily No Start Date 06/10/2016 Inactive hydrochlorothiazide 25 mg tablet RxNorm: 231562 1 Tablet(s) PO daily No Start Date 08/10/2012 Inactive Flexeril 10 mg tablet RxNorm: 782177 Tablet(s) PO No Start Date 06/10/2016 Inactive 1 q am1/2 with dinner1 hs Valium 5 mg tablet RxNorm: 945781 1 Tablet(s) PO PRN No Start Date 06/26/2017 Inactive amlodipine 5 mg tablet RxNorm: 452258 1 Tablet(s) PO daily No Start Date 03/15/2014 Inactive Phenergan VC-Codeine 6.25 mg-5 mg-10 mg/5 mL syrup RxNorm: 731671 5 Milliliter(s) PO Q6 as needed cough No Start Date 2015 Inactive Zithromax Z-Juanpablo 250 mg tablet RxNorm: 196605 Tablet(s) PO UD No Start Date 07/30/2013 Inactive naproxen 500 mg tablet RxNorm: 855752 Tablet(s) PO BID PRN No Start Date 01/20/2013 Inactive Lovaza 1 gram capsule RxNorm: 228941 2 Capsule(s) PO BID No Start Date 03/04/2018 Inactive hydrocodone 5 mg-acetaminophen 500 mg tablet RxNorm: 016711 1 Tablet(s) PO Q8 PRN No Start Date 12/24/2012 Inactive biotin 1000 mg RxNorm : 2 PO No Start Date 06/11/2016 Inactive aspirin 81 mg tablet,delayed release RxNorm: 309742 1 Tablet(s) PO daily No Start Date 07/07/2018 Inactive Lomotil 2.5 mg-0.025 mg tablet RxNorm: 2841672 Tablet(s) PO PRN No Start Date 04/23/2016 Inactive Ditropan XL 5 mg tablet,extended release RxNorm: 267374 1 Tablet(s) PO daily No Start Date 06/09/2018 Inactive Antara 130 mg capsule RxNorm: 503481 1 Capsule(s) PO daily No Start Date 07/07/2018 Inactive folic acid 1 mg tablet RxNorm: 581171 1 Tablet(s) PO daily No Start Date 11/02/2012 Inactive amlodipine 10 mg tablet RxNorm: 153948 1 Tablet(s) PO daily No Start Date 08/05/2018 Inactive amitriptyline 25 mg tablet RxNorm: 873214 1 Tablet(s) PO QHS dr fonseca No Start Date 03/29/2016 Inactive Gelnique transdermal RxNorm: 260888 transdermal No Start Date 03/25/2016 Inactive Toprol XL 50 mg tablet,extended release RxNorm: 805612 1 Tablet(s) PO daily No Start Date 04/08/2017 Inactive potassium chloride 10 % Oral Liquid RxNorm: 247471 1 Tablespoon(s) PO daily No Start Date 03/22/2013 Inactive Lipitor 10 mg tablet RxNorm: 050913 1 Tablet(s) PO QHS No Start Date 12/24/2012 Inactive diltiazem 120 mg tablet RxNorm: 913062 1 Tablet(s) PO daily No Start Date 08/10/2012 Inactive Combivent Respimat 20 mcg-100 mcg/actuation solution for inhalation RxNorm: 9854130 1-2 Puff(s) INH Q4 PRN No Start Date 07/25/2017 Inactive Medication Administered Medication Codes Instructions Start Date Status ceftriaxone 1 gram solution for injection RxNorm: 7341690 11/11/2014 No longer Active cyanocobalamin (vitamin B-12) 1,000 mcg/mL Injection RxNorm : 400756 Milliliter 11/03/2012 No longer Active cyanocobalamin (vitamin B-12) 1,000 mcg/mL Injection RxNorm : 189551 1Milliliter 10/20/2012 No longer Active Vitamin B-12 1,000 mcg/mL Injection RxNorm: 211302 1Milliliter 09/11/2012 No longer Active Vitamin B-12 1,000 mcg/mL Injection RxNorm: 450396 Milliliter 08/11/2012 No longer Active Vitamin B-12 1,000 mcg/mL Injection RxNorm: 325367 Milliliter 07/21/2012 No longer Active Immunizations Vaccine [...] Code Item Item Code Result Date Hepatic Ydd657 ALBUMIN 4.5 g/dL 08/11/2018 Hepatic Qbc279 TPRO 7.3 g/dL 08/11/2018 Hepatic Hzb058 GLOB 2.8 g/dL 08/11/2018 Hepatic Wto649 A/G Ratio 1.6 Ratio 08/11/2018 Hepatic Lhl012 ALK PHOS 89 U/L 08/11/2018 Hepatic Hbs509 ALT(SGPT) 31 U/L 08/11/2018 Hepatic Myf172 AST(SGOT) 20 U/L 08/11/2018 Hepatic Svr099 BILI T 0.4 mg/dL 08/11/2018 Hepatic Vwu629 BILI D 0.1 mg/dL 08/11/2018 Hepatic Xnm333 BILI I 0.3 mg/dL 08/11/2018 Lipid Ord30 [...] Ord30 C/HDL 3.7 Ratio 05/01/2018 Comp Metabolic Geh787 NA 140 mEq/L 05/01/2018 Comp Metabolic Vid037 K 4.1 mEq/L 05/01/2018 Comp Metabolic Ngp787 CL 107 mEq/L 05/01/2018 Comp Metabolic Pcu254 CO2 25.0 mEq/L 05/01/2018 Comp Metabolic Eyk207 ANION GAP 12 05/01/2018 Comp Metabolic Mvi483 GLUCOSE 98 mg/dL 05/01/2018 Comp Metabolic Cmb291 Creat 0.7 mg/dL 05/01/2018 Comp Metabolic Djj825 eGFR 96 ml/min/1.73m2 05/01/2018 Comp Metabolic Iuj219 BUN 14 mg/dL 05/01/2018 Comp Metabolic Bsq553 B/C Ratio 20.9 Ratio 05/01/2018 Comp Metabolic Dwq486 CALCIUM 9.5 mg/dL 05/01/2018 Comp Metabolic Awc778 ALK PHOS 74 U/L 05/01/2018 Comp Metabolic Usx258 AST(SGOT) 19 U/L 05/01/2018 Comp Metabolic Iya790 ALT(SGPT) 29 U/L 05/01/2018 Comp Metabolic Cqg370 BILI T 0.3 mg/dL 05/01/2018 Comp Metabolic Ajb710 ALBUMIN 4.3 g/dL 05/01/2018 Comp Metabolic Ckw985 TPRO 6.7 g/dL 05/01/2018 Comp Metabolic Fsc618 GLOB 2.4 g/dL 05/01/2018 Comp Metabolic Leu751 A/G Ratio 1.8 Ratio 05/01/2018 Comp Metabolic Xeu834 Osmo 280 mOsmo 05/01/2018 Free T4 Ulu124 FREE T4 0.95 ng/dL 02/11/2018 Tsh Ord6 TSH (3rd IS) 2.16 uIU/mL 02/11/2018 Free T4 Rwl814 FREE T4 0.81 ng/dL 11/12/2017 Tsh Ord6 TSH (3rd IS) 1.66 uIU/mL 11/12/2017 Tsh Ord6 hTSH II 1.45 uIU/mL 08/20/2017 Free T4 Qdj323 FREE T4 0.80 ng/dL 08/20/2017 Hepatic Chh875 ALBUMIN 4.4 g/dL 08/20/2017 Hepatic Rsv695 TPRO 6.6 g/dL 08/20/2017 Hepatic Btb040 GLOB 2.2 g/dL 08/20/2017 Hepatic Dkv702 A/G Ratio 2.0 Ratio 08/20/2017 Hepatic Rss262 ALK PHOS 50 U/L 08/20/2017 Hepatic Adv114 ALT(SGPT) 20 U/L 08/20/2017 Hepatic Vsu642 AST(SGOT) 20 U/L 08/20/2017 Hepatic Clu746 BILI T 0.3 mg/dL 08/20/2017 Hepatic Koq939 BILI D 0.1 mg/dL 08/20/2017 Hepatic Paj997 BILI I 0.2 mg/dL 08/20/2017 Lipid Ord30 [...] 30.3 pg 02/21/2017 Cbc With Differential Ord2 [place]% 6.9 % 02/21/2017 Cbc With Differential Ord2 [...] 1.82 K/ul 02/21/2017 Cbc With Differential Ord2 [place] ABS# 0.5 K/ul 02/21/2017 Cbc With Differential Ord2 Eos ABS# 0.2 K/ul 02/21/2017 Cbc With Differential Ord2 Baso ABS# 0.0 K/ul 02/21/2017 %Hba1C Gbb918 % HbA1c 25381-8 5.8 % 02/21/2017 %Hba1C Bkx845 Gluc Ave 120 mg/dL 02/21/2017 Tsh Ord6 hTSH II 1.90 uIU/mL 02/21/2017 Vitamin D 25 Oh Nvf3862 VITAMIN D, 25 HYDROXY 42.82 ng/mL Comp Metabolic Deh906 NA 141 mEq/L 02/21/2017 Comp Metabolic Ncq594 K 4.1 mEq/L 02/21/2017 Comp Metabolic Fxy699 CL 107 mEq/L 02/21/2017 Comp Metabolic Boq542 CO2 25.0 mEq/L 02/21/2017 Comp Metabolic Otv427 ANION GAP 13 02/21/2017 Comp Metabolic Use246 GLUCOSE 87 mg/dL 02/21/2017 Comp Metabolic Ilj675 Creat 0.8 mg/dL 02/21/2017 Comp Metabolic Wsg248 eGFR 80 ml/min/1.73m2 02/21/2017 Comp Metabolic Odj197 BUN 20 mg/dL 02/21/2017 Comp Metabolic Aol491 B/C Ratio 25.3 Ratio 02/21/2017 Comp Metabolic Dlm803 CALCIUM 9.5 mg/dL 02/21/2017 Comp Metabolic Zlf626 ALK PHOS 61 U/L 02/21/2017 Comp Metabolic Poe319 AST(SGOT) 16 U/L 02/21/2017 Comp Metabolic Xrq146 ALT(SGPT) 19 U/L 02/21/2017 Comp Metabolic Bkt186 BILI T 0.3 mg/dL 02/21/2017 Comp Metabolic Cpz617 ALBUMIN 4.4 g/dL 02/21/2017 Comp Metabolic Shm691 TPRO 7.0 g/dL 02/21/2017 Comp Metabolic Ezb256 GLOB 2.6 g/dL 02/21/2017 Comp Metabolic Uia640 A/G Ratio 1.7 Ratio 02/21/2017 Comp Metabolic Cxt396 Osmo 283 mOsmo 02/21/2017 Lipid Ord30 CHOL 185 mg/dL 02/21/2017 Lipid Ord30 HDL 74.0 mg/dl 02/21/2017 Lipid Ord30 TRIG 148 mg/dL 02/21/2017 Lipid Ord30 LDL 81 mg/dL 02/21/2017 Lipid Ord30 C/HDL 2.5 Ratio 02/21/2017 Hepatic Szg798 ALBUMIN 4.9 g/dL 08/21/2016 Hepatic Syy538 TPRO 7.3 g/dL 08/21/2016 Hepatic Bio408 GLOB 2.5 g/dL 08/21/2016 Hepatic Rkp721 A/G Ratio 2.0 Ratio 08/21/2016 Hepatic Hrn686 ALK PHOS 76 U/L 08/21/2016 Hepatic Nqm919 ALT(SGPT) 29 U/L 08/21/2016 Hepatic Jxe781 AST(SGOT) 22 U/L 08/21/2016 Hepatic Bft489 BILI T 0.4 mg/dL 08/21/2016 Hepatic Aaj148 BILI D 0.1 mg/dL 08/21/2016 Hepatic Tfk508 BILI I 0.3 mg/dL 08/21/2016 Lipid Ord30 CHOL 302 mg/dL 08/21/2016 Lipid Ord30 HDL 69.0 mg/dl 08/21/2016 Lipid Ord30 TRIG 223 mg/dL 08/21/2016 Lipid Ord30 LDL 188 mg/dL 08/21/2016 Lipid Ord30 C/HDL 4.4 Ratio 08/21/2016 Lipase Qvu191 LIPASE 14 U/L 06/04/2016 Cbc With Differential [...] 30.0 pg 06/04/2016 Cbc With Differential Ord2 [place]% 6.5 % 06/04/2016 Cbc With Differential Ord2 [...] 1.50 K/ul 06/04/2016 Cbc With Differential Ord2 [place] ABS# 0.4 K/ul 06/04/2016 Cbc With Differential Ord2 Eos ABS# 0.1 K/ul 06/04/2016 Cbc With Differential Ord2 Baso ABS# 0.0 K/ul 06/04/2016 Comp Metabolic Ufe746 NA 135 mEq/L 06/04/2016 Comp Metabolic Wtc763 K 3.8 mEq/L 06/04/2016 Comp Metabolic Rtm617 CL 101 mEq/L 06/04/2016 Comp Metabolic Wfk208 CO2 26.0 mEq/L 06/04/2016 Comp Metabolic Zee902 ANION GAP 12 06/04/2016 Comp Metabolic Soi607 GLUCOSE 91 mg/dL 06/04/2016 Comp Metabolic Ain536 Creat 0.8 mg/dL 06/04/2016 Comp Metabolic Hwi485 eGFR 74 ml/min/1.73m2 06/04/2016 Comp Metabolic Fvh993 BUN 16 mg/dL 06/04/2016 Comp Metabolic Hga089 B/C Ratio 19.0 Ratio 06/04/2016 Comp Metabolic Nov604 CALCIUM 10.0 mg/dL 06/04/2016 Comp Metabolic Mqo387 ALK PHOS 76 U/L 06/04/2016 Comp Metabolic Xrm734 AST(SGOT) 20 U/L 06/04/2016 Comp Metabolic Zyt078 ALT(SGPT) 24 U/L 06/04/2016 Comp Metabolic Cfm255 BILI T 0.3 mg/dL 06/04/2016 Comp Metabolic Mdw426 ALBUMIN 4.6 g/dL 06/04/2016 Comp Metabolic Lwq816 TPRO 6.9 g/dL 06/04/2016 Comp Metabolic Zsf464 GLOB 2.3 g/dL 06/04/2016 Comp Metabolic Pet189 A/G Ratio 2.0 Ratio 06/04/2016 Comp Metabolic Vio165 Osmo 271 mOsmo 06/04/2016 Amylase Ord34 AMYLASE 31 U/L 06/04/2016 Hepatic Usb048 ALBUMIN 4.3 g/dL 2016 Hepatic Wcl915 TPRO 6.7 g/dL 2016 Hepatic Dvn265 GLOB 2.4 g/dL 2016 Hepatic Kqg758 A/G Ratio 1.8 Ratio 2016 Hepatic Htq632 ALK PHOS 50 U/L 2016 Hepatic Awd586 ALT(SGPT) 20 U/L 2016 Hepatic Jtc244 AST(SGOT) 18 U/L 2016 Hepatic Orw703 BILI T 0.4 mg/dL 2016 Hepatic Nre005 BILI D 0.1 mg/dL 2016 Hepatic Xlq079 BILI I 0.3 mg/dL 2016 Lipid Ord30 CHOL 245 mg/dL 2016 Lipid Ord30 HDL 62.0 mg/dl 2016 Lipid Ord30 TRIG 140 mg/dL 2016 Lipid Ord30 LDL 155 mg/dL 2016 Lipid Ord30 C/HDL 4.0 Ratio 2016 Urine Culture Ucult Preliminary No Growth Day 1 09/15/2015 Urine Culture Ucult Complete No Growth Day 2 09/15/2015 Magnesium Ord90 Mag 1.9 mg/dL 09/07/2015 Comp Metabolic Cpa723 NA 139 mEq/L 09/07/2015 Comp Metabolic Dpm870 K 4.4 mEq/L 09/07/2015 Comp Metabolic Djz753 CL 107 mEq/L 09/07/2015 Comp Metabolic Quz628 CO2 24.0 mEq/L 09/07/2015 Comp Metabolic Mhk334 ANION GAP 12 09/07/2015 Comp Metabolic Wro133 GLUCOSE 91 mg/dL 09/07/2015 Comp Metabolic Rkg928 Creat 1.0 mg/dL 09/07/2015 Comp Metabolic Jkc762 eGFR 64 ml/min/1.73m2 09/07/2015 Comp Metabolic Qpo872 BUN 31 mg/dL 09/07/2015 Comp Metabolic Gjm041 B/C Ratio 32.3 Ratio 09/07/2015 Comp Metabolic Fkp865 CALCIUM 9.7 mg/dL 09/07/2015 Comp Metabolic Dgn982 ALK PHOS 56 U/L 09/07/2015 Comp Metabolic Itf627 AST(SGOT) 29 U/L 09/07/2015 Comp Metabolic Wkg015 ALT(SGPT) 34 U/L 09/07/2015 Comp Metabolic Zog858 BILI T 0.3 mg/dL 09/07/2015 Comp Metabolic Qho502 ALBUMIN 4.6 g/dL 09/07/2015 Comp Metabolic Kuu474 TPRO 7.0 g/dL 09/07/2015 Comp Metabolic Jsx924 GLOB 2.4 g/dL 09/07/2015 Comp Metabolic Hzp366 A/G Ratio 1.9 Ratio 09/07/2015 Comp Metabolic Qgq073 Osmo 284 mOsmo 09/07/2015 Bili D Ord93 BILI D 0.1 mg/dL 09/07/2015 Bili D Ord93 BILI I 0.2 mg/dL 09/07/2015 Lipid Ord30 CHOL 243 mg/dL 09/07/2015 Lipid Ord30 HDL 75.0 mg/dl 09/07/2015 Lipid Ord30 TRIG 161 mg/dL 09/07/2015 Lipid Ord30 LDL 136 mg/dL 09/07/2015 Lipid Ord30 C/HDL 3.2 Ratio 09/07/2015 Tsh Ord6 hTSH II 2.53 uIU/mL 06/13/2015 Comp Metabolic Heu874 NA 138 mEq/L 06/13/2015 Comp Metabolic Fuw844 K 4.0 mEq/L 06/13/2015 Comp Metabolic Qse185 CL 104 mEq/L 06/13/2015 Comp Metabolic Moj231 CO2 26.0 mEq/L 06/13/2015 Comp Metabolic Nde452 ANION GAP 12 06/13/2015 Comp Metabolic Fut444 GLUCOSE 86 mg/dL 06/13/2015 Comp Metabolic Ajr549 Creat 0.9 mg/dL 06/13/2015 Comp Metabolic Cia400 eGFR 71 ml/min/1.73m2 06/13/2015 Comp Metabolic Msu064 BUN 18 mg/dL 06/13/2015 Comp Metabolic Jsc991 B/C Ratio 20.5 Ratio 06/13/2015 Comp Metabolic Sfu014 CALCIUM 10.1 mg/dL 06/13/2015 Comp Metabolic Oza655 ALK PHOS 52 U/L 06/13/2015 Comp Metabolic Ezt423 AST(SGOT) 18 U/L 06/13/2015 Comp Metabolic Cfd211 ALT(SGPT) 21 U/L 06/13/2015 Comp Metabolic Vzm562 BILI T 0.3 mg/dL 06/13/2015 Comp Metabolic Jzq493 ALBUMIN 4.7 g/dL 06/13/2015 Comp Metabolic Ksz305 TPRO 6.9 g/dL 06/13/2015 Comp Metabolic Roe703 GLOB 2.2 g/dL 06/13/2015 Comp Metabolic Euo859 A/G Ratio 2.1 Ratio 06/13/2015 Comp Metabolic Nfv674 Osmo 277 mOsmo 06/13/2015 %Hba1C Kbe132 % HbA1c 95878-2 5.7 % 06/13/2015 %Hba1C Kih142 Gluc Ave 117 mg/dL 06/13/2015 Cbc With [...] 14.7 % 06/13/2015 Vitamin D 25 Oh Yrb7620 VITAMIN D, 25 HYDROXY 41.85 ng/mL Cbc [...] Ord2 RDW 14.5 % 04/18/2015 Comp Metabolic Gzu976 NA 137 mEq/L 04/18/2015 Comp Metabolic Qmf908 K 4.0 mEq/L 04/18/2015 Comp Metabolic Zer177 CL 105 mEq/L 04/18/2015 Comp Metabolic Tim483 CO2 23.0 mEq/L 04/18/2015 Comp Metabolic Tss921 ANION GAP 13 04/18/2015 Comp Metabolic Zia705 GLUCOSE 73 mg/dL 04/18/2015 Comp Metabolic Dzj396 Creat 0.9 mg/dL 04/18/2015 Comp Metabolic Uzb095 eGFR 72 ml/min/1.73m2 04/18/2015 Comp Metabolic Gek767 BUN 17 mg/dL 04/18/2015 Comp Metabolic Ywv473 B/C Ratio 19.5 Ratio 04/18/2015 Comp Metabolic Yab925 CALCIUM 9.7 mg/dL 04/18/2015 Comp Metabolic Vaf727 ALK PHOS 55 U/L 04/18/2015 Comp Metabolic Pts026 AST(SGOT) 28 U/L 04/18/2015 Comp Metabolic Pet351 ALT(SGPT) 27 U/L 04/18/2015 Comp Metabolic Tmb917 BILI T 0.3 mg/dL 04/18/2015 Comp Metabolic Tgx767 ALBUMIN 4.5 g/dL 04/18/2015 Comp Metabolic Aew338 TPRO 7.0 g/dL 04/18/2015 Comp Metabolic Ftk841 GLOB 2.5 g/dL 04/18/2015 Comp Metabolic Kdi589 A/G Ratio 1.8 Ratio 04/18/2015 Comp Metabolic Koi429 Osmo 274 mOsmo 04/18/2015 Cbc With Differential [...] Ord2 RDW 15.0 % 03/22/2015 Comp Metabolic Ksj254 NA 136 mEq/L 03/22/2015 Comp Metabolic Nan303 K 4.1 mEq/L 03/22/2015 Comp Metabolic Jjp130 CL 102 mEq/L 03/22/2015 Comp Metabolic Fcq792 CO2 26.0 mEq/L 03/22/2015 Comp Metabolic Hab813 ANION GAP 12 03/22/2015 Comp Metabolic Uyo972 GLUCOSE 82 mg/dL 03/22/2015 Comp Metabolic Akq325 Creat 0.9 mg/dL 03/22/2015 Comp Metabolic Ere490 eGFR 69 ml/min/1.73m2 03/22/2015 Comp Metabolic Bqr306 BUN 30 mg/dL 03/22/2015 Comp Metabolic Uqx705 B/C Ratio 33.3 Ratio 03/22/2015 Comp Metabolic Sgu498 CALCIUM 10.3 mg/dL 03/22/2015 Comp Metabolic Juh224 ALK PHOS 56 U/L 03/22/2015 Comp Metabolic Oyq099 AST(SGOT) 17 U/L 03/22/2015 Comp Metabolic Fpi132 ALT(SGPT) 17 U/L 03/22/2015 Comp Metabolic Onh908 BILI T 0.3 mg/dL 03/22/2015 Comp Metabolic Yyv434 ALBUMIN 4.7 g/dL 03/22/2015 Comp Metabolic Rue046 TPRO 7.2 g/dL 03/22/2015 Comp Metabolic Ntt360 GLOB 2.5 g/dL 03/22/2015 Comp Metabolic Wsu087 A/G Ratio 1.9 Ratio 03/22/2015 Comp Metabolic Gyz888 Osmo 277 mOsmo 03/22/2015 FREE T4 0485356 FREE T4 1.24 NG/DL 10/18/2014 CHEM 14 5387974 AST 14 U/L 10/15/2014 CHEM 14 6880379 ALT 15 IU/L 10/15/2014 CHEM 14 9302230 BUN 23 MG/DL 10/15/2014 CHEM 14 8421676 ALBUMIN 4.8 GM/DL 10/15/2014 CHEM 14 8837675 CHLORIDE 105 MMOL/L 10/15/2014 CHEM 14 9673810 BILI TOT 0.3 MG/DL 10/15/2014 CHEM 14 1547764 ALK PHOS 60 U/L 10/15/2014 CHEM 14 7142184 SODIUM 140 MMOL/L 10/15/2014 CHEM 14 4487964 CREATININE 0.89 MG/DL 10/15/2014 CHEM 14 7508439 CALCIUM 10.0 MG/DL 10/15/2014 CHEM 14 3199316 POTASSIUM 3.7 MMOL/L 10/15/2014 CHEM 14 0626458 PROT TOT 7.2 GM/DL 10/15/2014 CHEM 14 2899975 GLUCOSE 97 MG/DL 10/15/2014 CHEM 14 5739527 BICARB 25 MMOL/L 10/15/2014 CHEM 14 2557809 ANION GAP 10 MEQ/L 10/15/2014 CBC 3849149 WBC 6.7 10e9/L 10/15/2014 CBC 1055432 RBC 4.49 10e12/L 10/15/2014 CBC 9622802 HGB 13.4 g/dL 10/15/2014 CBC 9994568 HCT DET 40.2 % 10/15/2014 CBC 8065652 MCV 89.5 fL 10/15/2014 CBC 1170070 MCH 29.8 pg 10/15/2014 CBC 1191853 MCHC 33.3 g/dL 10/15/2014 CBC 2829731 PLT 311 10e9/L 10/15/2014 CBC 8549473 MPV 10.7 fL 10/15/2014 CBC 9139677 BESSY % 63.6 % 10/15/2014 CBC 3767030 LY % 26.7 % 10/15/2014 CBC 4976965 MON % 6.6 % 10/15/2014 CBC 7907043 EOS % 2.8 % 10/15/2014 CBC 9149525 BASO % 0.3 % 10/15/2014 CBC 0630189 RDW 13.4 % 10/15/2014 CBC 0197132 ABS BESSY 4.26 10e9/L 10/15/2014 CBC 2656464 ABS LYMPH 1.79 10e9/L 10/15/2014 CBC 4043095 ABS MONO 0.44 10e9/L 10/15/2014 CBC 2347348 ABS EOS 0.19 10e9/L 10/15/2014 CBC 9384184 ABS BASO 0.02 10e9/L 10/15/2014 CBC 2018326 RDW-SD 43.2 fL 10/15/2014 A1C HPLC 3076459 A1C HPLC 05686-0 5.7 % 10/15/2014 TSH 0274918 TSH 4.083 uIU/ML 10/15/2014 GFR CALC 7469343 GFR AA >60 ML/MIN 10/15/2014 GFR CALC 5746886 GFR NON-AA >60 ML/MIN 10/15/2014 VIT D TOTL 1434138 VIT D TOTL 36 NG/ML 10/15/2014 GFR CALC 1059388 GFR AA >60 ML/MIN 06/23/2014 GFR CALC 9792869 GFR NON-AA >60 ML/MIN 06/23/2014 CHEM 14 4639025 AST 21 U/L 06/23/2014 CHEM 14 9933515 ALT 24 IU/L 06/23/2014 CHEM 14 20280313 BUN 18 MG/DL 06/23/2014 CHEM 14 3299883 ALBUMIN 4.7 GM/DL 06/23/2014 CHEM 14 7944981 CHLORIDE 109 MMOL/L 06/23/2014 CHEM 14 2283534 BILI TOT 0.3 MG/DL 06/23/2014 CHEM 14 9701817 ALK PHOS 53 U/L 06/23/2014 CHEM 14 9823763 SODIUM 140 MMOL/L 06/23/2014 CHEM 14 1108278 CREATININE 0.86 MG/DL 06/23/2014 CHEM 14 5709719 CALCIUM 10.2 MG/DL 06/23/2014 CHEM 14 9043028 POTASSIUM 3.9 MMOL/L 06/23/2014 CHEM 14 5395773 PROT TOT 6.9 GM/DL 06/23/2014 CHEM 14 3188175 GLUCOSE 87 MG/DL 06/23/2014 CHEM 14 3715681 BICARB 24 MMOL/L 06/23/2014 CHEM 14 0474295 ANION GAP 7 MEQ/L 06/23/2014 TSH 9283165 TSH 1.417 uIU/ML 06/23/2014 FREE T4 4448685 FREE T4 1.21 NG/DL 06/23/2014 TSH 1774243 TSH 3.399 uIU/ML 12/16/2013 CBC 8619085 WBC 6.4 10e9/L 12/15/2013 CBC 2444778 RBC 4.34 10e12/L 12/15/2013 CBC 3187070 HGB 12.9 g/dL 12/15/2013 CBC 9875476 HCT DET 39.3 % 12/15/2013 CBC 1429855 MCV 90.6 fL 12/15/2013 CBC 4565851 MCH 29.7 pg 12/15/2013 CBC 5069239 MCHC 32.8 g/dL 12/15/2013 CBC 7938273 PLT 292 10e9/L 12/15/2013 CBC 8952274 MPV 10.8 fL 12/15/2013 CBC 8178701 BESSY % 63.6 % 12/15/2013 CBC 3966360 LY % 25.7 % 12/15/2013 CBC 2908282 MON % 7.1 % 12/15/2013 CBC 4106280 EOS % 3.3 % 12/15/2013 CBC 6736996 BASO % 0.3 % 12/15/2013 CBC 3685025 RDW 13.4 % 12/15/2013 CBC 1538651 ABS BESSY 4.07 10e9/L 12/15/2013 CBC 6095470 ABS LYMPH 1.64 10e9/L 12/15/2013 CBC 0572199 ABS MONO 0.45 10e9/L 12/15/2013 CBC 9472821 ABS EOS 0.21 10e9/L 12/15/2013 CBC 3034780 ABS BASO 0.02 10e9/L 12/15/2013 CBC 8454751 RDW-SD 43.5 fL 12/15/2013 CHEM 14 4206481 AST 19 U/L 12/15/2013 CHEM 14 3693042 ALT 23 IU/L 12/15/2013 CHEM 14 6204789 BUN 23 MG/DL 12/15/2013 CHEM 14 0550226 ALBUMIN 4.7 GM/DL 12/15/2013 CHEM 14 5866964 CHLORIDE 108 MMOL/L 12/15/2013 CHEM 14 0549837 BILI TOT 0.3 MG/DL 12/15/2013 CHEM 14 6819525 ALK PHOS 58 U/L 12/15/2013 CHEM 14 9265593 SODIUM 139 MMOL/L 12/15/2013 CHEM 14 5311202 CREATININE 0.92 MG/DL 12/15/2013 CHEM 14 9629152 CALCIUM 10.0 MG/DL 12/15/2013 CHEM 14 8094350 POTASSIUM 4.0 MMOL/L 12/15/2013 CHEM 14 5023264 PROT TOT 7.1 GM/DL 12/15/2013 CHEM 14 0767467 GLUCOSE 82 MG/DL 12/15/2013 CHEM 14 4664335 BICARB 24 MMOL/L 12/15/2013 CHEM 14 1004576 ANION GAP 7 MEQ/L 12/15/2013 GFR CALC 0541631 GFR AA >60 ML/MIN 12/15/2013 GFR CALC 2051136 GFR NON-AA >60 ML/MIN 12/15/2013 URINALYSIS NONAUTO W/O SCOPE 53240 Specific [place] 1.025 DateTime(Free Text in Aprima) URINALYSIS NONAUTO W/O SCOPE 78035 PH 5 DateTime(Free Text in Aprima) URINALYSIS NONAUTO W/O SCOPE 99854 GLUCOSE neg DateTime( Free Text in Aprima) URINALYSIS NONAUTO W/O SCOPE 85899 Protein neg DateTime( Free Text in Aprima) URINALYSIS NONAUTO W/O SCOPE 45780 Blood neg DateTime(Free Text in Aprima) URINALYSIS NONAUTO W/O SCOPE 18197 Bilirubin neg DateTime(Free Text in Apr) URINALYSIS NONAUTO W/O SCOPE 52806 Ketones neg DateTime( Free Text in Apr) URINALYSIS NONAUTO W/O SCOPE 11010 Urobilinogen neg DateTime(Free Text in Aprima) URINALYSIS NONAUTO W/O SCOPE 06518 Nitrite neg DateTime( Free Text in Aprima) URINALYSIS NONAUTO W/O SCOPE 67148 Leukocytes neg DateTime(Free Text in Apr) Review [...] General 1995 Ears/Nose/Throat internal nose Sinus tenderness: right maxillary [...] clear 06/11/2016 None Full Exam - General 1995 [...] vein procedure that will be perform in [place] in May. Full Exam - General 1994 [...] clear 07/14/2014 None Full Exam - General 1995 Ears/Nose/Throat oral cavity/pharynx/larynx Overall: oral mucosa clear 07/14/2014 None Full Exam - General 1995 Ears/Nose/Throat oral cavity/pharynx/larynx Overall: oropharyngeal mucosa clear 07/14/2014 None Full Exam - General 1995 Ears/Nose/Throat oral cavity/pharynx/larynx Overall: no masses 07/14/2014 [...] Procedure Codes Date IMMUNIZATION ADMIN CPT -4: 98301 06/05/2018 FLU VAC NO PRSV 4 ZONIA 3 YRS+ CPT-4: 92068 06/05/2018 IMMUNIZATION ADMIN CPT -4: 11053 06/19/2017 FLU VAC NO PRSV 4 ZONIA 3 YRS+ CPT-4: 79648 06/19/2017 URINALYSIS NONAUTO W/O SCOPE CPT-4: 91069 09/08/2015 IMMUNIZATION ADMIN CPT -4: 34616 03/30/2015 ADACEL TDAP VACCINE 7 YRS/> IM CPT-4: 02040 03/30/2015 URINALYSIS NONAUTO W/O SCOPE CPT-4: 90295 03/22/2015 THER/PROPH/DIAG INJ SC/IM CPT-4: 06329 11/11/2014 ROCEPHIN, PER 250 MG CPT-4: J0696 11/11/2014 ROUTINE VENIPUNCTURE CPT-4: 88657 10/15/2014 HgbA1c CPT-4: 19659 10/15/2014 CBC (COMPLETE CBC W/AUTO DIFF WBC) CPT-4: 90158 10/15/2014 CHEM 14 (COMPREHEN METABOLIC PANEL) CPT-4: 89138 10/15/2014 TSH (ASSAY THYROID STIM HORMONE) CPT-4: 75638 10/15/2014 VIT D TOTL (VITAMIN D 25 HYDROXY) CPT-4: 72907 10/15/2014 FREE T4 (ASSAY OF FREE THYROXINE) CPT-4: 50064 10/15/2014 ROUTINE VENIPUNCTURE CPT-4: 27835 06/23/2014 CHEM 14 (COMPREHEN METABOLIC PANEL) CPT-4: 22124 06/23/2014 TSH (ASSAY THYROID STIM HORMONE) CPT-4: 08571 06/23/2014 FREE T4 (ASSAY OF FREE THYROXINE) CPT-4: 06523 06/23/2014 URINALYSIS NONAUTO W/O SCOPE CPT-4: 33038 12/15/2013 ROUTINE VENIPUNCTURE CPT-4: 93751 12/15/2013 THER/PROPH/DIAG INJ SC/IM CPT-4: 86005 11/03/2012 VITAMIN B12 INJECTION CPT-4: J3420 11/03/2012 THER/PROPH/DIAG INJ SC/IM CPT-4: 09057 10/20/2012 VITAMIN B12 INJECTION CPT-4: J3420 10/20/2012 VITAMIN B12 INJECTION CPT-4: J3420 09/11/2012 THER/PROPH/DIAG INJ SC/IM CPT-4: 37135 09/11/2012 THER/PROPH/DIAG INJ SC/IM CPT-4: 16691 08/11/2012 VITAMIN B12 INJECTION CPT-4: J3420 08/11/2012 THER/PROPH/DIAG INJ SC/IM CPT-4: 10014 07/21/2012 VITAMIN B12 INJECTION CPT-4: J3420 07/21/2012 Vital Signs Date Vital 08/06/2018 Blood Pressure 1: 116/78 Code : 8480-6 BMI: 32.3 Code : 24202-7 Heart Rate 1 : 71 bpm Height: 5'6" SpO2: 98% Weight: 200 lbs 07/08/2018 Blood Pressure 1: 128/70 Code : 8480-6 BMI: 32.4 Code : 34781-7 Heart Rate 1 : 76 bpm Height: 5'6" SpO2: 96% Weight: 201 lbs 02/11/2018 Blood Pressure 1: 122/84 Code : 8480-6 BMI: 32.4 Code : 73007-0 Heart Rate 1 : 71 bpm Height: 5'6" SpO2: 97% Weight: 201 lbs 11/12/2017 Blood Pressure 1: 130/82 Code : 8480-6 BMI: 32.3 Code : 36574-6 Height: 5'6" Weight: 200 lbs 08/20/2017 Blood Pressure 1: 126/78 Code : 8480-6 BMI: 32.3 Code : 28598-0 Heart Rate 1 : 66 bpm Height: 5'6" SpO2: 98% Weight: 200 lbs 06/24/2017 Blood Pressure 1: 134/78 Code : 8480-6 BMI: 34.2 Code : 40039-1 Heart Rate 1 : 71 bpm Height: 5'6" SpO2: 95% Weight: 212 lbs 05/22/2017 Blood Pressure 1: 12278 Code : 8480-6 BMI: 33.9 Code : 82416-4 Heart Rate 1 : 76 bpm Height: 5'6" SpO2: 97% Weight: 210 lbs 05/10/2017 Blood Pressure 1: 130/84 Code : 8480-6 BMI: 34.1 Code : 60834-9 Heart Rate 1 : 90 bpm Height: 5'6" SpO2: 98% Temperature: 36.9 (C) / 98.5 (F) Weight: 211 lbs 04/08/2017 Blood Pressure 1: 13278 Code : 8480-6 BMI: 34.4 Code : 60079-1 Heart Rate 1 : 72 bpm Height: 5'6" SpO2: 97% Weight: 213 lbs 02/20/2017 Blood Pressure 1: 130/90 Code : 8480-6 BMI: 33.9 Code : 10164-4 Heart Rate 1 : 74 bpm Height: 5'6" SpO2: 98% Weight: 210 lbs 11/21/2016 Blood Pressure 1: 132/74 Code : 8480-6 BMI: 34.2 Code : 22959-1 Heart Rate 1 : 66 bpm Height: 5'6" SpO2: 97% Weight: 212 lbs 08/29/2016 Blood Pressure 1: 136/82 Code : 8480-6 BMI: 33.7 Code : 04757-2 Heart Rate 1 : 70 bpm Height: 5'6" Respiratory Rate: 18 bpm SpO2: 98% Weight: 209 lbs 07/05/2016 Blood Pressure 1: 142/76 Code : 8480-6 BMI: 33.2 Code : 14803-5 Heart Rate 1 : 73 bpm Height: 5'6" SpO2: 98% Weight: 206 lbs 06/11/2016 Blood Pressure 1: 130/82 Code : 8480-6 BMI: 33.4 Code : 12713-8 Heart Rate 1 : 76 bpm Height: 5'6" SpO2: 97% Weight: 207 lbs 06/04/2016 Blood Pressure 1: 134/80 Code : 8480-6 BMI: 33.4 Code : 71742-7 Heart Rate 1 : 71 bpm Height: 5'6" SpO2: 98% Weight: 207 lbs 04/10/2016 Blood Pressure 1: 124/80 Code : 8480-6 BMI: 34.4 Code : 35883-3 Heart Rate 1 : 76 bpm Height: 5'6" SpO2: 96% Weight: 213 lbs 03/26/2016 Blood Pressure 1: 118/74 Code : 8480-6 BMI: 34.4 Code : 81338-3 Heart Rate 1 : 72 bpm Height: 5'6" SpO2: 98% Weight: 213 lbs 01/23/2016 Blood Pressure 1: 134/76 Code : 8480-6 BMI: 33.7 Code : 90178-0 Heart Rate 1 : 76 bpm Height: 5'6" SpO2: 97% Weight: 209 lbs 12/26/2015 Blood Pressure 1: 116/76 Code : 8480-6 BMI: 33.4 Code : 13434-2 Heart Rate 1 : 78 bpm Height: 5'6" SpO2: 98% Weight: 207 lbs 11/02/2015 Blood Pressure 1: 118/80 Code : 8480-6 BMI: 33.6 Code : 17052-5 Heart Rate 1 : 75 bpm Height: 5'6" SpO2: 95% Weight: 208 lbs 09/13/2015 Blood Pressure 1: 140/82 Code : 8480-6 BMI: 33.6 Code : 98949-7 Heart Rate 1 : 92 bpm Height: 5'6" SpO2: 96% Weight: 208 lbs 09/07/2015 Blood Pressure 1: 140/82 Code : 8480-6 BMI: 33.4 Code : 55860-4 Heart Rate 1 : 85 bpm Height: 5'6" SpO2: 95% Weight: 207 lbs 08/16/2015 Blood Pressure 1: 138/84 Code : 8480-6 BMI: 32.9 Code : 86764-0 Heart Rate 1 : 87 bpm Height: 5'6" SpO2: 97% Weight: 204 lbs 06/13/2015 Blood Pressure 1: 130/82 Code : 8480-6 BMI: 33.1 Code : 14057-0 Heart Rate 1 : 84 bpm Height: 5'6" SpO2: 96% Weight: 205 lbs 05/10/2015 Blood Pressure 1: 118/70 Code : 8480-6 BMI: 32.9 Code : 57186-3 Heart Rate 1 : 77 bpm Height: 5'6" SpO2: 97% Weight: 204 lbs 03/22/2015 Blood Pressure 1: 118/76 Code : 8480-6 BMI: 32.0 Code : 39044-8 Heart Rate 1 : 88 bpm Height: 5'6" Temperature: 36.2 (C) / 97.2 (F) Weight: 198 lbs 01/17/2015 Blood Pressure 1: 120/80 Code : 8480-6 BMI: 32.6 Code : 22585-1 Heart Rate 1 : 88 bpm Height: 5'6" Weight: 202 lbs 11/22/2014 Blood Pressure 1: 118/82 Code : 8480-6 BMI: 31.8 Code : 43040-4 Heart Rate 1 : 72 bpm Height: 5'6" Weight: 197 lbs 10/27/2014 Blood Pressure 1: 130/82 Code : 8480-6 BMI: 32.0 Code : 40191-9 Heart Rate 1 : 86 bpm Height: 5'6" SpO2: 97% Weight: 198 lbs 10/15/2014 Blood Pressure 1: 118/82 Code : 8480-6 BMI: 32.1 Code : 94939-2 Heart Rate 1 : 100 bpm Height: 5'6" Weight: 199 lbs 09/30/2014 Blood Pressure 1: 118/86 Code : 8480-6 BMI: 32.0 Code : 19404-7 Heart Rate 1 : 80 bpm Height: 5'6" Temperature: 35.7 (C) / 96.3 (F) Weight: 198 lbs 07/14/2014 Blood Pressure 1: 116/80 Code : 8480-6 BMI: 32.9 Code : 55948-7 Heart Rate 1 : 80 bpm Height: 5'6" Weight: 204 lbs 06/23/2014 Blood Pressure 1: 128/88 Code : 8480-6 BMI: 33.7 Code : 97359-5 Height: 5'6" Weight: 209 lbs 04/09/2014 Blood Pressure 1: 138/82 Code : 8480-6 Heart Rate 1: 90 bpm SpO2: 97% Temperature: 35.8 (C) / 96.5 (F) Weight: 210 lbs 03/16/2014 Blood Pressure 1: 116/80 Code : 8480-6 BMI: 34.1 Code : 21000-3 Heart Rate 1 : 88 bpm Height: 5'6" Weight: 211 lbs 01/12/2014 Blood Pressure 1: 124/70 Code : 8480-6 BMI: 33.4 Code : 17553-8 Heart Rate 1 : 76 bpm Height: 5'6" Weight: 207 lbs 12/15/2013 Blood Pressure 1: 144/100 Code: 8480-6 Blood Pressure 2: 124/90 Code: 8480-6 Heart Rate 1: 72 bpm Weight: 215 lbs 10/20/2013 Blood Pressure 1: 130/84 Code : 8480-6 BMI: 34.5 Code : 58712-6 Heart Rate 1 : 84 bpm Height: 5'6" Weight: 214 lbs 09/15/2013 Blood Pressure 1: 128/90 Code : 8480-6 BMI: 34.9 Code : 16028-3 Heart Rate 1 : 88 bpm Height: 5'6" Temperature: 36.5 (C) / 97.7 (F) Weight: 216 lbs 07/27/2013 Blood Pressure 1: 138/90 Code : 8480-6 BMI: 34.4 Code : 77821-5 Heart Rate 1 : 88 bpm Height: 5'6" Weight: 213 lbs 06/09/2013 Blood Pressure 1: 138/92 Code : 8480-6 Heart Rate 1: 88 bpm Weight: 04/20/2013 Blood Pressure 1: 142/92 Code : 8480-6 BMI: 34.4 Code : 04000-5 Heart Rate 1 : 88 bpm Height: 5'6" Weight: 213 lbs 03/23/2013 Blood Pressure 1: 116/84 Code : 8480-6 BMI: 34.1 Code : 11895-9 Heart Rate 1 : 76 bpm Height: 5'6" Weight: 211 lbs 01/21/2013 Blood Pressure 1: 130/88 Code : 8480-6 BMI: 34.5 Code : 16958-8 Heart Rate 1 : 80 bpm Height: 5'6" Weight: 214 lbs 12/25/2012 Blood Pressure 1: 112/70 Code : 8480-6 Heart Rate 1: 84 bpm Respiratory Rate : 20 bpm Weight: 214 lbs 8 oz 10/20/2012 Blood Pressure 1: 124/80 Code : 8480-6 BMI: 34.4 Code : 19111-8 Heart Rate 1 : 84 bpm Height: 5'6" Temperature: 36.7 (C) / 98.0 (F) Weight: 213 lbs 08/11/2012 Blood Pressure 1: 116/80 Code : 8480-6 BMI: 33.9 Code : 14070-7 Heart Rate 1 : 76 bpm Height: 5'6" Respiratory Rate: 20 bpm Weight: 210 lbs 07/10/2012 Blood Pressure 1: 110/76 Code : 8480-6 BMI: 46.5 Code : 01464-2 Heart Rate 1 : 84 bpm Height: [...] of Symptom _ weeks ago 09/30/2014 over [place] hol cough Pertinent Findings chest discomfort 09/30/2014 [...] of Symptom _ weeks ago 09/30/2014 around [place] neck pain Location in the lower cervical/ [...] Directive data Encounters Encounter Performer Location Codes ([id number]) [id number] EST. PATIENT, LEVEL IV Diagnosis: Essential (primary) hypertension[ICD10: I10] Diagnosis: Generalized anxiety disorder[ICD10: F41.1] Diagnosis: Slow transit constipation[ICD10: K59.01] Diagnosis: Other fatigue[ICD10: R53.83] Diagnosis: Nontoxic multinodular goiter[ICD10: E04.2] Caty Ledsema MD [facility] CPT-4: 24152 08/06/2018 ([id number]) 91229 EST. PATIENT, LEVEL IV Diagnosis: Essential (primary) hypertension[ICD10: I10] Diagnosis: Major depressive disorder, recurrent, moderate[ICD10: F33.1] Diagnosis: Generalized anxiety disorder[ICD10: F41.1] Caty Ledesma MD [facility] CPT-4: 56707 07/08/2018 ([id number]) 95626 EST. PATIENT, LEVEL IV Diagnosis: Nontoxic multinodular goiter[ICD10: E04.2] Diagnosis: Mixed hyperlipidemia[ICD10: E78.2] Diagnosis: Essential (primary) hypertension[ICD10: I10] Caty Ledesma MD [facility] CPT-4: 98422 02/11/2018 ([id number]) 59961 EST. PATIENT, LEVEL IV Diagnosis: Nontoxic multinodular goiter[ICD10: E04.2] Diagnosis: Essential (primary) hypertension[ICD10: I10] Diagnosis: Other fatigue[ICD10: R53.83] Caty Ledesma MD, [facility] CPT- 4: 38729 11/12/2017 ([id number]) 20733 EST. PATIENT, LEVEL IV Diagnosis: Nontoxic multinodular goiter[ICD10: E04.2] Diagnosis: Major depressive disorder, recurrent, moderate[ICD10: F33.1] Diagnosis: Generalized anxiety disorder[ICD10: F41.1] Diagnosis: Essential (primary) hypertension[ICD10: I10] Caty Ledesma MD, [facility] CPT-4: 42893 08/20/2017 ([id number]) 64473 EST. PATIENT, LEVEL III Diagnosis: Acute recurrent maxillary sinusitis[ICD10: J01.01] Diagnosis: Encounter for other preprocedural examination[ICD10: Z01.818] Mira Ledesma MD, [facility] CPT-4: 65585 06/24/2017 ([id number]) [id number] EST. PATIENT, LEVEL IV Diagnosis: Acute recurrent frontal sinusitis[ICD10: J01.11] Diagnosis: Type 2 diabetes mellitus without complications[ICD10: E11.9] Diagnosis: Essential (primary) hypertension[ICD10: I10] Caty Ledesma MD, [facility] CPT-4: 76759 05/22/2017 [id number]) 49702 EST. PATIENT, LEVEL III Diagnosis: Acute recurrent maxillary sinusitis[ICD10: J01.01] Diagnosis: Cough[ICD10: R05] Mira Ledesma MD, [facility] CPT-4: 45629 05/10/2017 ([id number]) 23922 EST. PATIENT, LEVEL IV Diagnosis: Generalized anxiety disorder[ICD10: F41.1] Diagnosis: Muscle weakness (generalized)[ICD10: M62.81] Diagnosis: Somnolence[ICD10: R40.0] Diagnosis: Snoring[ICD10: R06.83] Caty Ledesma MD, [facility] CPT-4: 00881 04/08/2017 [id number]) 59825 EST. 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 PATIENT, LEVEL IV Diagnosis: Generalized anxiety disorder[ICD10: F41.1] Diagnosis: Major depressive disorder, recurrent, moderate[ICD10: F33.1] Diagnosis: Chronic pain syndrome[ICD10: G89.4] Diagnosis: Other specified polyneuropathies[ICD10: G62.89] Diagnosis: Muscle weakness (generalized)[ICD10: M62.81] Diagnosis: Essential (primary) hypertension[ICD10: I10] Caty Ledesma MD, [facility] CPT-4: 37886 11/21/2016 [id number]) 77769 EST. PATIENT, LEVEL III Diagnosis: Generalized abdominal pain[ICD10: R10.84] Diagnosis: Essential (primary) hypertension[ICD10: I10] Caty Ledesma MD [facility] CPT-4: 43049 08/29/2016 ([id number]) 78484 EST. PATIENT, LEVEL III Diagnosis: Epigastric pain[ICD10: R10.13] Caty Ledesma MD [facility] CPT- 4: 74302 07/05/2016 ([id number]) 13530 EST. PATIENT, LEVEL III Diagnosis: Toxic gastroenteritis and colitis[ICD10: K52.1] Caty Ledesma MD [facility] CPT-4: 93984 06/11/2016 66977 EST. PATIENT, LEVEL III Diagnosis: Left upper quadrant pain[ICD10: R10.12] Estrella Ledesma MD [facility] CPT-4: 40063 06/04/2016 ([id number]) 83204 EST. PATIENT, LEVEL III Diagnosis: Cellulitis of left toe[ICD10: L03.032] Mira Ledesma MD [facility] CPT-4: 94566 04/10/2016 ([id number]) 98490 EST. PATIENT, LEVEL III Diagnosis: Essential (primary) hypertension[ICD10: I10] Diagnosis: Chronic pain syndrome[ICD10: G89.4] Diagnosis: Other fatigue[ICD10: R53.83] Caty Ledesma MD [facility] CPT- 4: 68565 03/26/2016 ([id number]) 14883 EST. PATIENT, LEVEL III Diagnosis: Gastro-esophageal reflux disease without esophagitis[ICD10: K21.9] Caty Ledesma MD [facility] CPT-4: 99799 01/23/2016 ([id number]) 23021 EST. PATIENT, LEVEL IV Diagnosis: Type 2 diabetes mellitus without complications[ICD10: E11.9] Diagnosis: Gastro-esophageal reflux disease without esophagitis[ICD10: K21.9] Diagnosis: Functional diarrhea[ICD10: K59.1] Caty Ledesma MD [facility] CPT-4: 48676 12/26/2015 47690 EST. PATIENT, LEVEL IV Diagnosis: Other seasonal allergic rhinitis[ICD10: J30.2] Diagnosis: Acute recurrent maxillary sinusitis[ICD10: J01.01] Diagnosis: Cough[ICD10: R05] Estrella Ledesma MD, [facility] CPT-4: 63773 11/02/2015 95949 EST. PATIENT, LEVEL III Diagnosis: Acute recurrent maxillary sinusitis[ICD10: J01.01] Diagnosis: Urgency of urination[ICD10: R39.15] Diagnosis: Cough[ICD10: R05] Diagnosis: Acute laryngopharyngitis[ICD10: J06.0] Estrella Ledesma MD [facility] CPT-4: 89241 09/13/2015 48620 EST. PATIENT, LEVEL IV Diagnosis: Pain in left lower leg[ICD10: M79.662] Diagnosis: Cramp and spasm[ICD10: R25.2] Diagnosis: Acute nasopharyngitis [common cold][ICD10: J00] Estrella Ledesma MD, [facility] CPT-4: 14773 09/07/2015 ([id number]) 53738 EST. PATIENT, LEVEL IV Diagnosis: Essential (primary) hypertension[ICD10: I10] Diagnosis: Type 2 diabetes mellitus without complications[ICD10: E11.9] Diagnosis: Varicose veins of unspecified lower extremities with other complications[ICD10: I83.899] Caty Ledesma MD [facility] CPT-4: 34386 08/16/2015 ([id number]) 51504 EST. PATIENT, LEVEL IV Diagnosis: Type 2 diabetes mellitus without complications[ICD10: E11.9] Diagnosis: Other mixed anxiety disorders[ICD10: F41.3] Diagnosis: Vitamin deficiency, unspecified[ICD10: E56.9] Diagnosis: Essential (primary) hypertension[ICD10: I10] Caty Ledesma MD [facility] CPT-4: 71401 06/13/2015 ([id number]) 01164 EST. PATIENT, LEVEL IV Diagnosis: ESSENTIAL HYPERTENSION[ICD9: 401.9] Diagnosis: CHRONIC PAIN SYNDROME[ICD9: 338.4] Caty Ledesma MD [facility] CPT-4: 58741 05/10/2015 ([id number]) 95148 EST. PATIENT, LEVEL III Diagnosis: Back pain[ICD9: 724.5] Diagnosis: URINARY FREQUENCY[ICD9: 788.41] Caty Ledesma MD, [facility] CPT- 4: 75244 03/22/2015 ([id number]) 44291 EST. PATIENT, LEVEL IV Diagnosis: ESSENTIAL HYPERTENSION[ICD9: 401.9] Diagnosis: DIABETES TYPE II[ICD9: 250.00] Diagnosis: Varicose vein[ICD9: 454.9] Caty Ledesma MD [facility] CPT- 4: 29746 01/17/2015 ([id number]) 53296 EST. PATIENT, LEVEL IV Diagnosis: HEADACHE[ICD9: 784.0] Diagnosis: Neck pain[ICD9: 723.1] Diagnosis: Vision changes[ICD9: 368.9] Diagnosis: Nausea[ICD9: 787.02] Mira Ledesma MD, [facility] CPT-4: 27581 11/22/2014 ([id number]) 70407 EST. PATIENT, LEVEL I Diagnosis: Meningitis exposure[ICD9: V01.89] Caty Ledesma MD [facility] CPT-4: 76480 11/11/2014 ([id number]) 40274 EST. PATIENT, LEVEL IV Diagnosis: Elevated blood sugar[ICD9: 790.29] Diagnosis: ESSENTIAL HYPERTENSION[ICD9: 401.9] Caty Ledesma MD [facility] CPT-4: 07082 10/27/2014 ([id number]) 39531 EST. PATIENT, LEVEL IV Diagnosis: Costochondritis[ICD9: 733.6] Diagnosis: ALLERGIC RHINITIS[ICD9: 477.9] Diagnosis: Vitamin D deficiency[ICD9: 268.9] Diagnosis: Elevated blood sugar[ICD9: 790.29] Mira Ledesma MD, [facility] CPT-4: 48322 10/15/2014 ([id number]) 00151 EST. PATIENT, LEVEL IV Diagnosis: ESSENTIAL HYPERTENSION[ICD9: 401.9] Diagnosis: Diarrhea[ICD9: 787.91] Caty Ledesma MD, [facility] CPT-4: 19032 09/30/2014 ([id number]) 50723 EST. PATIENT, LEVEL IV Diagnosis: Raynauds disease[ICD9: 443.0] Diagnosis: Nausea[ICD9: 787.02] Diagnosis: ESSENTIAL HYPERTENSION[ICD9: 401.9] Caty Ledesma MD [facility] CPT-4: 37794 07/14/2014 ([id number]) 38676 EST. PATIENT, LEVEL IV Diagnosis: ESSENTIAL HYPERTENSION[ICD9: 401.9] Diagnosis: Esophageal reflux[ICD9: 530.81] Diagnosis: Hyponatremia[ICD9: 276.1] Diagnosis: OBESITY[ICD9: 278.00] Diagnosis: Chronic migraine[ICD9: 346.70] Caty Ledesma MD [facility] CPT- 4: 14978 06/23/2014 ([id number]) 51206 EST. PATIENT, LEVEL IV Diagnosis: ESSENTIAL HYPERTENSION[ICD9: 401.9] Diagnosis: GERD (gastroesophageal reflux disease)[ICD9: 530.81] Diagnosis: Costochondritis[ICD9: 733.6] Mira Ledesma MD [facility] CPT-4: 58721 04/09/2014 ([id number]) 65961 EST. PATIENT, LEVEL IV Diagnosis: ESSENTIAL HYPERTENSION[ICD9: 401.9] Diagnosis: RAYNAUD'S SYNDROME[ICD9: 443.0] Caty Ledesma MD [facility] CPT- 4: 54503 03/16/2014 ([id number]) 83170 EST. PATIENT, LEVEL III Diagnosis: ESSENTIAL HYPERTENSION[SNOMED: 80146478] Diagnosis: ALLERGIC RHINITIS[ICD9: 477.9] Diagnosis: Knee pain[ICD9: 719.46] Caty Ledesma MD [facility] CPT-4: 60993 01/12/2014 ([id number]) 83506 EST. PATIENT, LEVEL IV Diagnosis: ALLERGIC RHINITIS[ICD9: 477.9] Diagnosis: ESSENTIAL HYPERTENSION[SNOMED: 73217069] Diagnosis: Fatigue[ICD9: 780.79] Caty Ledesma MD [facility] CPT-4: 48385 12/15/2013 ([id number]) 47445 EST. PATIENT, LEVEL III Diagnosis: ESSENTIAL HYPERTENSION[SNOMED: 23103017] Diagnosis: Skin lesion[ICD9: 709.9] Diagnosis: Raynauds disease[ICD9: 443.0] Ctay Ledesma MD [facility] CPT- 4: 16533 10/20/2013 ([id number]) 22129 EST. PATIENT, LEVEL III Diagnosis: ACUTE SINUSITIS[ICD9: 461.9] Caty Ledesma MD, [facility] CPT- 4: 22398 09/15/2013 ([id number]) 83213 EST. PATIENT, LEVEL IV Diagnosis: ESSENTIAL HYPERTENSION[SNOMED: 03386302] Diagnosis: Peripheral neuropathy[ICD9: 356.9] Diagnosis: Vitamin D deficiency[ICD9: 268.9] Diagnosis: Vitamin B12 deficiency[ICD9: 266.2] Caty Ledesma MD, [facility] CPT-4: 08487 07/27/2013 ([id number]) 29859 EST. PATIENT, LEVEL III Diagnosis: ACUTE SINUSITIS[ICD9: 461.9] Diagnosis: COUGH[ICD9: 786.2] Mira Ledesma MD, [facility] CPT-4: 81931 06/09/2013 29280 EST. PATIENT, LEVEL IV Diagnosis: HEADACHE[ICD9: 784.0] Diagnosis: Dysphagia[ICD9: 787.20] Diagnosis: Esophageal reflux[ICD9: 530.81] Caty Ledesma MD, [facility] CPT- 4: 62801 04/20/2013 ([id number]) 39230 EST. PATIENT, LEVEL IV Diagnosis: Seasonal allergic rhinitis[ICD9: 477.9] Diagnosis: HEADACHE[ICD9: 784.0] Diagnosis: ESSENTIAL HYPERTENSION[SNOMED: 21378211] Caty Ledesma MD, [facility] CPT-4: 43255 03/23/2013 ([id number]) 35617 EST. PATIENT, LEVEL III Diagnosis: ABNORMALITY OF GAIT[ICD9: 781.2] Diagnosis: B-COMPLEX DEFIC NEC[ICD9: 266.2] Caty Ledesma MD, [facility] CPT-4: 20712 01/21/2013 ([id number]) 35203 EST. PATIENT, LEVEL IV Diagnosis: ESSENTIAL HYPERTENSION[SNOMED: 97594684] Diagnosis: Breast pain[ICD9: 611.71] Caty Ledesma MD, [facility] CPT-4: 86791 12/25/2012 ([id number]) 03837 EST. PATIENT, LEVEL III Diagnosis: ESSENTIAL HYPERTENSION[SNOMED: 80478622] Diagnosis: ACUTE URI[ICD9: 465.9] [facility] CPT-4: 45829 10/20/2012 ([id number]) 23978 EST. PATIENT, LEVEL IV Diagnosis: B-COMPLEX DEFIC NEC[ICD9: 266.2] Diagnosis: ESSENTIAL HYPERTENSION[SNOMED: 10278564] Diagnosis: Gait instability[ICD9: 781.2] Diagnosis: Back pain[ICD9: 724.5] [facility] CPT-4: 84802 08/11/2012 OFFICE VISIT, NEW - LEVEL 4 Diagnosis: ESSENTIAL HYPERTENSION[SNOMED: 79465560] Diagnosis: ACUTE SINUSITIS[ICD9: 461.9] Diagnosis: Gait instability[ICD9: 781.2] Diagnosis: Weakness of both legs[ICD9: 729.89] [facility] CPT-4: 39788 07/10/2012 Plan of Care Planned Activity Notes [...] of pristiq 08/06/2018 Appointment: Caty Ledesma WPtel: [address] [place], [place] [phone] (15 min) Moderate 08/06/2018 Patient Education: Patient Medication Summary Completed 08/06/2018 Patient Education: Patient Medication Summary Completed 07/09/2018 Care Plan: SCREENINGMAMMOGRAPHYDIGITAL [facility] : 31667-6 Pending 07/09/2018 Visit Plan: Hypertension - well [...] decreased dosing. 07/08/2018 Appointment: [facility] [phone] [facility] [place] (15 min) Moderate 07/08/2018 Patient Education: [...] to medications. 02/11/2018 Appointment: [facility] Led[facility] [phone] [facility] [place] (15 min) Moderate 02/11/2018 Patient Education: [...] daily. 11/12/2017 Appointment: [facility] Led[facility] [phone] [facility] [place] (15 min) Moderate 11/12/2017 Patient Education: [...] healing well. 08/20/2017 Appointment: Cat[facility] Led[facility] [phone] [facility] [place] (15 min) Moderate 08/20/2017 Patient Education: [...] Weaver 06/24/2017 App[facility]ment[phone] [place] (30 min) Complex 06/24/2017 Patient [...] less controlled. 05/22/2017 Appointment: Caty Ledesma WPtel: [facility]2 [facility] (15 min) Moderate 05/22/2017 Patient Education: Patient Medication Summary Completed 05/22/2017 Visit Plan: Sinusitis - Pt has acute infection - pain in face, maxillary region, Pt informed to use decongestant, RX given to patient, sinus rinses also recommended. Call if symptoms do not show improvement. 05/10/2017 Appointment: Mira Valladares WPtel: [phone] [phone] (15 min) Moderate 05/10/2017 Patient Education: Patient Medication Summary Completed 05/10/2017 Visit Plan: Fatigue - daytime - recommended sleep study, change pristiq to night-time dosing. Sleep study to be scheduled - RX for sleep study sent to hospital. - pt has significant sleepiness during the day - she had a score of 17 on epiworth sleepiness scale. 04/08/2017 Appointment: Caty Ledesma WPtel: [phone] [facility] (15 min) Moderate 04/08/2017 Patient Education: Patient [...] ultrasound. 02/20/2017 Appointment: Cat[facility] Led[facility]Ptel[facility] [phone] [facility] (30 min) Complex 02/20/2017 Patient Education: Patient [...] patient. 11/21/2016 Appointment: Caty Ledesma WPtel: [phone] [facility] (15 min) Moderate 11/21/2016 Patient Education: Patient [...] improving. 08/29/2016 Appointment: Caty Led[facility]ma [facility]Pt[facility] [phone] [facility] [place] (30 min) Complex 08/29/2016 Patient Education: Patient Medication Summary Completed 08/29/2016 Patient Education: Hypertension Completed 08/29/2016 Visit Plan: referral to dr. aburto for cysts of right abdomen near ribs 07/05/2016 Appointment: Caty Led[facility]ma [facility]Ptel[facility] [phone] [facility] (15 min) Moderate 07/05/2016 Patient Education: Patient [...] stomach pain. 06/04/2016 Appointment: Est[facility] Bynum [facility] [phone] [facility] (15 min) Moderate 06/04/2016 Patient Education: Patient [...] of plan. 04/10/2016 Appointment: M[facility] Valladares [facility]el[facility] [phone] [phone] (30 min) Complex 04/10/2016 Patient Education: [...] 12/26/2015 Care Plan: Referral Order SNOMED-CT : [id number] Pending 12/26/2015 Appointment: Caty Ledesma WPtel: [address] [place] [address] (15 min) Moderate 12/19/2015 Visit Plan: URI [...] to keep appt with Dr. Kwon in [place] for treatment of varicose veins. 08/16/2015 Patient [...] of over-medication. 05/10/2015 Appointment: Caty Ledesma WPtel: [facility] Follow up 05/10/2015 Patient Education: Patient Medication [...] veins - referral to Vascular team from [facility] 01/17/2015 Appointment: Caty Ledesma WPtel: [phone] [facility] [place] Follow up 01/17/2015 Patient Education: Patient Medication Summary Completed 01/17/2015 Patient Education: Hypertension Completed 01/17/2015 Care Plan: Referral Order referral to [facility] for varicose veins - need to see if the patient can have her ultrasound studies HERE with [employer] SNOMED-CT : [id number] Ordered 01/17/2015 Appointment: Caty Ledesma WPtel: [phone] [facility] [place] Follow up 01/04/2015 Visit Plan: Worsening gavodics-ekynva-jxjr injury 1 week ago-recommend CT head due [...] three weeks. 10/27/2014 Appointment: Caty Ledesma WPtel: [facility] Follow up 10/27/2014 Patient Education: Patient Medication [...] the nasal steroid allergy spray. Elevated blood mwmdmz-gvtmzcwls-aemeke-check Hgb A1c as well as TSH Vitamin D deficiency-check vitamin D level 10/15/2014 Appointment: Follow up 10/15/2014 Patient Education: Patient Medication Summary Completed 10/15/2014 Care Plan: TSH Pending 10/15/2014 Care Plan: A1C HPLC [facility] : 45580-7 Pending 10/15/2014 Care Plan: VIT D TOTL [...] stomach pain. 09/30/2014 Appointment: Caty Ledesma WPtel: [phone] [facility] [place] Follow up 09/30/2014 Patient Education: Patient Medication Summary Completed 09/30/2014 Patient Education: Hypertension Completed 09/30/2014 Appointment: Caty Ledesma WPtel: [facility]4 [facility] [place] Follow up 09/29/2014 Visit Plan: Nausea - [...] at home. 07/14/2014 Appointment: Caty Ledesma WPtel: [facility]6 [facility] [place] Follow up 07/14/2014 Patient Education: Patient Medication [...] check labs. 06/23/2014 Appointment: Caty Ledesma WPtel: [facility]6 [facility] [place] Follow up 06/23/2014 Patient Education: Patient Medication [...] are worsening. 03/16/2014 Appointment: Caty Ledesma WPtel: [facility]5 [facility] Follow up 03/16/2014 Patient Education: Patient Medication [...] allergy spray. 01/12/2014 Appointment: Caty Ledesma WPtel: [facility]0 [place] [phone] Follow up 01/12/2014 Patient Education: Patient Medication [...] Fatigue-check labs 12/15/2013 Appointment: Mira Valladares WPtel: [facility]5 [phone] [place] [address] Follow up 12/15/2013 Patient Education: Patient Medication [...] - on scalp - referral to her program facilitator - Dr. Teran. Recommended pt to call for appt. Raynaud - very mild case - pt to continue with norvasc, monitor symptoms, keep hands warm, call if symptoms worsen, if fingers turn and stay persistently purple, will consider topical treatments versus increase in norvasc. 10/20/2013 Appointment: Caty Ledesma WPtel: [address] [place], [place] [phone] Follow up 10/20/2013 Patient Education: Patient Medication Summary Completed 10/20/2013 Patient Education: Hypertension Completed 10/20/2013 Visit Plan: Sinusitis - Pt has acute infection - pain in face, maxillary region, Pt informed to use decongestant, RX given to patient, sinus rinses also recommended. Call if symptoms do not show improvement. 09/15/2013 Appointment: Caty Ledesma WPtel: [facility]5 [facility] Sick 09/15/2013 Patient Education: Patient Medication Summary [...] tolerance test. 07/27/2013 Appointment: Caty Ledesma [facility]Ptel: [phone] [facility] Follow up 07/27/2013 Patient Education: Patient Medication Summary Completed 07/27/2013 Patient Education: Hypertension Completed 07/27/2013 Visit Plan: Sinusitis - Pt has acute infection - pain in face, maxillary region, Pt informed to use decongestant, RX given to patient, sinus rinses also recommended. Call if symptoms do not show improvement. 06/09/2013 Appointment: Mira Valladares WPtel: [phone] [phone] Sick 06/09/2013 Patient Education: Patient Medication [...] and pepcid 04/20/2013 Appointment: [facility] Valladares [phone] Other 04/20/2013 Patient Education: Patient Medication Summary [...] home. 03/23/2013 Appointment: Caty Ledesma WPtel: [phone] [facility] Follow up 03/23/2013 Patient Education: Patient Medication Summary Completed 03/23/2013 Patient Education: Hypertension Completed 03/23/2013 Visit Plan: Gait abnormality with falling at home and hitting head - suspect concussion - recommend that Stephanie see Jose Luis at [facility] for balance and gait training. B12 deficiency - improved with b12 shots, will have patient go back to every 2 week injections instead of weekly injections. 01/21/2013 Appointment: Cat[facility] Led[facility]ma [facility]Ptel[facility] [phone] [facility] Follow up 01/21/2013 Patient Education: Patient Medication [...] have mammo. 12/25/2012 Appointment: Caty Ledesma WPtel: [address] [place], [place] [phone] Follow up 12/25/2012 Patient Education: Patient Medication [...] clinic today. 10/20/2012 Appointment: Caty Ledesma WPtel: [facility]5 [facility] Follow up 10/20/2012 Patient Education: Patient Medication Summary Completed 10/20/2012 Patient Education: Hypertension Completed 10/20/2012 Appointment: Caty Ledesma WPtel: [address] [place] [address] [place] Injection 09/11/2012 Patient Education: Patient Medication Summary Completed 09/11/2012 Appointment: Caty Ledesma WPtel: [address] [place] [address] [place] Injection 08/18/2012 Visit Plan: Hypertension - [...] 08/11/2012 Appointment: Cat[facility] Led[facility]ma [facility]Ptel: [phone] [facility] Follow up 08/11/2012 Patient Education: Patient Medication Summary Completed 08/11/2012 Patient Education: Hypertension Completed 08/11/2012 Appointment: Caty Led[facility]ma [facility]Ptel: [phone] [facility] [place] Injection 07/21/2012 Patient Education: Patient Medication [...] d level. 07/10/2012 Appointment: Mira Valladares WPtel: [phone] New Patient 07/10/2012 Patient Education: Patient Medication Summary Completed 07/10/2012 Patient Education: High Blood Pressure: Essential Hypertension Completed 2011 Referral: Blaise Aburto Info. faxed Completed Referral: Blaise Aburto Referral Appointment Requested Referral: [facility], - Referral Appointment Requested Instructions Comment Hold Aspirin, Lovaza, Antara, and Zetia for [...] - recommended patient to have thyroid ultrasound. Aleve twice daily x 10 days . [...] the nasal steroid allergy spray. Elevated blood xgaolq-vcqrxrkrn-dtidsa-check Hgb A1c as well as TSH Vitamin D deficiency-check vitamin D level change the pristiq to night-time . Fatigue [...] to assure normal liver response to medications. pt to start on probiotic - like [...] the end of the three weeks. . Headaches-check ESR and CRP Dysphagia-thyroid ultrasound [...] has declined to see a surgeon. . Hypertension - uncontrolled - the patient's [...] them to send us the report also. stop the pantoprazole stop aspirin use over [...] worse. Patient verbalized understanding of plan. . Worsening cixbjnwd-crzrew-hxcz injury 1 week ago- recommend CT head [...] worse. RX sent to patient's pharmacy. . pt has been informed of signs [...] plan pending labs and radiology results. . Sinusitis - Pt has acute infection [...] is also due for vitamin d level. continue mucinex and zyrtec add flonase if [...] to keep appt with Dr. Kwon in [place] for treatment of varicose veins. . Sinusitis - Pt has acute infection - pain in face, maxillary region, Pt informed to use decongestant, RX given to patient, sinus rinses also recommended. Call if symptoms do not show improvement. Patient medically cleared for surgery with Dr Weaver reflex sympathetic dystrophy restart questran take a [...] veins - referral to Vascular team from [facility] RESTART NASAL SPRAY TWICE DAILY CHECK [...] concussion - recommend that Stephanie Amaya at [facility] for balance and gait training. B12 [...] will consider starting on synthroid 25mcg daily. EKG, Chest xray, CBC, CMP, cardiac analyzers . HTN-well controlled no changes Costochondritis-chest pain-patient sent for STAT chest xray and cardiac analyzers-instructed her to take anti inflammatories as directed and call if symptoms do not resolve, or if any worse. GERD-restart carafate QID-continue with PPI . Hypertension - well controlled - continue with current medications, continue with no added salt diet. Pt has been encouraged to exercise daily. The pt has been advised to call the office if there are any acute concerns about change in blood pressure readings at home. Skin lesion - on scalp - referral to her program facilitator - Dr. Teran. Recommended pt to call [...]
--- OUTSIDE RECORDS SUMMARY | 2019-01-07 08:35 | XMS REPORT | CCD ---
Author Author Mira Valladares Organization [facility] Address [address] [place] [address] Phone Care Team Providers Care Window Caser Name Role Phone PP Unavailable CCM Unavailable Summary Purpose Interface Exchange Insurance Providers Payer name Policy type / Coverage type Covered constitution party ID Effective Begin Date Effective End Date [facility] Insurance [id number] 2013 Unknown WPS Medicare Part B Commercial Insurance [id number] 2013 Unknown Family history Daughter Diagnosis Age [...] status Unknown 03/26/[address]: 9679785 Former smoker quit 1979 03/26/2016 Number of children Unknown 3 07/10/[address]: 471116885 Never drinks alcohol 07/10/2012 Has the patient ever used illegal drugs? Unknown Has never used illegal drugs 07/10/2012 Allergies, Adverse Reactions, Alerts Substance Reaction Codes Entered Date Inactivated Date Status cymbalta RxNorm: 591050 07/14/2012 No Inactive Date Active Savella nausea RxNorm: 304669 07/14/2012 No Inactive Date Active Metanx nausea RxNorm: 270785 07/14/2012 No Inactive Date Active Gluten Unknown 07/10/2012 No Inactive Date Active Peanuts Unknown 07/10/2012 No Inactive Date Active Levaquin hives RxNorm: 08416 07/14/2012 No Inactive Date Active macrobid pruritis, hives, RxNorm: 868590 07/14/2012 No Inactive Date Active percocet pruritis RxNorm: 197106 07/14/2012 No Inactive Date Active PREDNISONE pruritis, RxNorm: 8640 07/14/2012 No Inactive Date Active ultram pruritis, hives RxNorm: 78017 06/11/2016 No Inactive Date Active GABAPENTIN nausea, Unknown 07/14/2012 No Inactive Date Active Past Medical History Illness Codes Condition Status Onset Date Resolved Date Encounter for screening mammogram for malignant neoplasm of breast ICD-9: V76.10 ICD-10: Z12.31 Active 07/09/2018 Unknown Essential (primary) hypertension ICD-9: 401.9 ICD-10: I10 Active 03/16/2014 Unknown Generalized anxiety disorder ICD-9: 300.00 ICD-10: F41.1 Active 11/21/2016 Unknown Major depressive disorder, recurrent, moderate ICD-9: 296.32 ICD-10: F33.1 Active 11/21/2016 Unknown 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 ICD-10: E04.2 Active 02/20/2017 Unknown Encounter for immunization ICD-9: V03.82 ICD-10: Z23 Active 06/05/2018 Unknown Essential (primary) hypertension ICD-9: 401.1 ICD-10: I10 Active 02/11/2018 Unknown Mixed hyperlipidemia ICD-9: 272.2 ICD-10: E78.2 Active 02/20/2017 Unknown Other fatigue ICD-9: 780.79 ICD-10: R53.83 Active 12/15/2013 Unknown Acute recurrent maxillary sinusitis ICD-9: 461.0 [...] Problems Condition Codes Effective Dates Condition Status Encounter for screening mammogram for malignant neoplasm of breast ICD-9: V76.10 ICD-10: Z12.31 07/09/2018 Active Essential (primary) hypertension ICD-9: 401.9 ICD-10: I10 03/16/2014 Active Generalized anxiety disorder ICD-9: 300.00 ICD-10: F41.1 11/21/2016 Active Major depressive disorder, recurrent, moderate ICD-9: 296.32 ICD-10: F33.1 11/21/2016 Active 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 ICD-10: E04.2 02/20/2017 Active Encounter for immunization ICD-9: V03.82 ICD-10: Z23 06/05/2018 Active Essential (primary) hypertension ICD-9: 401.1 ICD-10: I10 02/11/2018 Active Mixed hyperlipidemia ICD-9: 272.2 ICD-10: E78.2 02/20/2017 Active Other fatigue ICD-9: 780.79 ICD-10: R53.83 12/15/2013 Active Acute recurrent maxillary sinusitis ICD-9: 461.0 [...] Start Date Stop Date Status Fill Instructions Voltaren 1 % topical gel RxNorm: 369041 APPLY 2 GRAMS TOPICALLY FOUR TIMES A DAY 07/24/2018 10/31/2018 Active Pristiq 100 mg tablet,extended release RxNorm: 851495 1 Tablet(s) PO daily 07/08/2018 02/02/2019 Active Fish Oil 1,000 mg capsule RxNorm: 1 Capsule(s) PO TID 201707/02/2019 Active Valium 5 mg tablet RxNorm: 269441 1 Tablet(s) PO PRN as needed 07/08/2018 No Stop Date Active Vagifem 10 mcg vaginal tablet RxNorm: 575199 1 Tablet(s) VAG daily 07/08/2018 No Stop Date Active naproxen sodium 550 mg tablet RxNorm: 784537 Tablet(s) as needed TAKE 1 TABLET BY MOUTH TWO TIMES DAILY 07/08/20182018 Active - Ref: [id number] topiramate 100 mg tablet RxNorm: 141503 1 Tablet(s) PO BID 02/02/2019 Active [SAVINGS FOR UNINSURED PATIENTS -- BIN:260133, PCN: ASPROD1, Group: [id number], ID# [id number], Process claim through [employer], for questions: . THIS IS NOT INSURANCE.] Voltaren 1 % topical gel RxNorm: 203845 APPLY 2 GRAMS TOPICALLY FOUR TIMES A DAY 07/08/2018 07/23/2018 Inactive Valium 5 mg tablet RxNorm: 905996 1 Tablet(s) PO PRN as needed 06/24/2018 07/07/2018 Inactive folic acid 1 mg tablet RxNorm: 350519 TAKE ONE TABLET BY MOUTH EVERY DAY 05/27/2018 04/21/2019 Active Valium 5 mg tablet RxNorm: 211400 1 Tablet(s) PO PRN as needed 02/21/2018 No Stop Date Active Valium 5 mg tablet RxNorm: 273152 1 Tablet(s) PO PRN as needed 11/12/2017 02/20/2018 Inactive Synthroid 25 mcg tablet RxNorm: 591480 1 Tablet(s) PO daily 02/201811/11/2017 Inactive Synthroid 25 mcg tablet RxNorm: 218118 1 Tablet(s) PO daily 02/201802/10/2018 Inactive Nitro-Bid 2 % transdermal ointment RxNorm: 407210 APPLY TO AFFECTED AREA(S) TOPICALLY THREE TIMES A DAY NEEDED FOR RAYNAUDS SYMPTOMS OF FEET 08/26/2017 10/24/2017 Inactive Vitamin B-12 1,000 mcg/mL injection solution RxNorm: 567327 INJECT 1ML INTRAMUSCULARLY ONCE WEEKLY 08/23/2017 Inactive Request already responded to by other means (e.g. phone or fax) Vitamin B-12 1,000 mcg/mL injection solution RxNorm: 157993 Milliliter(s) INJECT 1ML INTRAMUSCULARLY ONCE WEEKLY 08/21/2017 08/22/2017 Inactive naproxen sodium 550 mg tablet RxNorm: 593570 TAKE 1 TABLET BY MOUTH TWO TIMES DAILY 08/09/2017 11/06/2017 Inactive - Ref: [id number] Combivent Respimat 20 mcg-100 mcg/actuation solution for inhalation RxNorm: 1254896 1-2 Puff(s) INH Q4 PRN 07/26/2017 No Stop Date Active Valium 5 mg tablet RxNorm: 360308 1 Tablet(s) PO PRN as needed 06/27/2017 11/11/2017 Inactive doxycycline hyclate 100 mg tablet RxNorm: 867989 1 Tablet(s) PO BID 06/24/2017 06/30/2017 Inactive azithromycin 250 mg tablet RxNorm: 677892 1 Tablet(s) PO UD 2 tabs on day #1, then 1 pill daily x 4 more days 05/22/2017 08/20/2017 Inactive hydrocodone 10 mg-chlorpheniramine 8 mg/5 mL oral susp extend.rel 12hr RxNorm: 7286699 5 PO as needed 05/10/20172017 Inactive Augmentin 875 mg-125 mg tablet RxNorm: 425586 1 Tablet(s) PO BID 05/10/2017 05/16/2017 Inactive folic acid 1 mg tablet RxNorm: 836189 TAKE ONE TABLET BY MOUTH EVERY DAY 05/09/2017 05/03/2018 Inactive Carafate 1 gram tablet RxNorm: 871095 TAKE ONE TABLET BY MOUTH FOUR TIMES A DAY 30 MINUTES BEFORE MEALS AND AT BEDTIME 03/18/2017 07/07/2018 Inactive scopolamine 1.5 mg transdermal patch (1 mg over 3 days) RxNorm: 860717 1 Patch TD Q72H use for sea sickness 02/20/201703/05 Inactive Pristiq 50 mg tablet,extended release RxNorm: 861931 1 Tablet(s) PO daily 01/15/2017 07/07/2018 Inactive Pristiq 50 mg tablet,extended release RxNorm: 761464 1 Tablet(s) PO BID 12/20/2016 01/14/2017 Inactive naproxen sodium 550 mg tablet RxNorm: 765803 Tablet(s) Take 1 tablet by mouth twice a day 11/14/2016 08/08/2017 Inactive [place] Lancets 33 gauge RxNorm: TEST TWO TIMES A DAY 11/12/2016 04/10/2017 Inactive Phenergan VC-Codeine 6.25 mg-5 mg-10 mg/5 mL syrup RxNorm: 728687 5 Milliliter(s) PO Q6 as needed cough 09/06/20162016 Inactive Nitro-Bid 2 % transdermal ointment RxNorm: 473209 APPLY TO AFFECTED AREA(S) TOPICALLY THREE TIMES A DAY NEEDED FOR RAYNAUDS SYMPTOMS OF FEET 08/21/2016 10/19/2016 Inactive Voltaren 1 % topical gel RxNorm: 147362 APPLY 2 GRAMS TOPICALLY FOUR TIMES A DAY 08/21/2016 12/22/2016 Inactive Vitamin B-12 1,000 mcg/mL injection solution RxNorm: 946595 INJECT 1ML INTRAMUSCULARLY ONCE WEEKLY 08/21/2016 Inactive folic acid 1 mg tablet RxNorm: 466176 TAKE ONE TABLET BY MOUTH EVERY DAY 08/13/2016 04/09/2017 Inactive Flagyl 500 mg tablet RxNorm: 969737 1 Tablet(s) PO TID 201506/22/2016 Inactive Cholestyramine Light 4 gram oral powder RxNorm: 931053 1 packet PO PRN as needed 06/11/2016 No Stop Date Active Flexeril 10 mg tablet RxNorm: 590596 1 Tablet(s) PO as needed 02/19/2017 Inactive 1 hs Vagifem 10 mcg vaginal tablet RxNorm: 830892 1 Tablet(s) VAG BIW -TIW 06/11/2016 07/07/2018 Inactive Flagyl 500 mg tablet RxNorm: 296258 1 Tablet(s) PO TID 201506/10/2016 Inactive Lomotil 2.5 mg-0.025 mg tablet RxNorm: 6860180 1 Tablet(s) PO AC & HS as needed 04/24/2016 05/23/2016 Inactive Keflex 500 mg capsule RxNorm: 256252 1 Capsule(s) PO TID 201504/11/2016 Inactive Keflex 500 mg capsule RxNorm: 293221 1 Capsule(s) PO TID 201504/18/2016 Inactive Pristiq 50 mg tablet,extended release RxNorm: 923802 1 Tablet(s) PO QAM 03/30/2016 12/19/2016 Inactive amitriptyline 25 mg tablet RxNorm: 401421 1/2 Tablet(s) PO QHS x [address] pablo 03/30/2016 06/10/2016 Inactive potassium chloride 20 mEq/15 mL oral liquid RxNorm: 188548 TAKE 2 TABLESPOONS DAILY 03/23/2016 09/18/2016 Inactive Glucocard Vital Sensor strips RxNorm: TEST TWO TIMES A DAY 10/17/2017 Inactive Questran 4 gram oral powder RxNorm: 070722 1 dose PO daily 04/201602/14/2016 Inactive Questran 4 gram oral powder RxNorm: 084966 1 dose PO daily 04/201603/15/2016 Inactive Miralax 17 gram oral powder packet RxNorm: 676312 1 PO daily 02/08/2016 Inactive Miralax 17 gram oral powder packet RxNorm: 167039 1 PO daily 06/10/2016 Inactive Carafate 1 gram tablet RxNorm: 357245 1 Tablet(s) PO QID take 30 minutes before meals and at bedtime 01/23/20162015 Inactive Vitamin D2 50,000 unit capsule RxNorm: 363495 1 Capsule(s) PO QW 12/26/2015 03/24/2016 Inactive Tamiflu 75 mg capsule RxNorm: 492979 1 Capsule(s) PO daily 11/2111/21/2015 Inactive Tamiflu 75 mg capsule RxNorm: 933197 1 Capsule(s) PO daily 11/2112/01/2015 Inactive folic acid 1 mg tablet RxNorm: 751623 TAKE ONE TABLET BY MOUTH EVERY DAY 11/03/2015 07/29/2016 Inactive Keflex 500 mg capsule RxNorm: 795576 1 Capsule(s) PO TID 201511/11/2015 Inactive Augmentin 500 mg-125 mg tablet RxNorm: 330183 1 Tablet(s) PO TID 09/13/2015 09/22/2015 Inactive Zithromax Z-Juanpablo 250 mg tablet RxNorm: 157600 1 Tablet(s) PO 12/25/2015 Inactive OneTouch Delica Lancets 33 gauge RxNorm: 1 test Miscellaneous BID 06/21/2015 06/14/2016 Inactive Nitro-Bid 2 % transdermal ointment RxNorm: 489275 1 Application TD TID as needed raynauds symptoms of feet 06/01/201508/29 Inactive Vitamin B-12 1,000 mcg/mL injection solution RxNorm: 933194 INJECT 1ML INTRAMUSCULARLY ONCE WEEKLY 05/16/201503/2016 Inactive Voltaren 1 % topical gel RxNorm: 748227 2 Gram(s) TOP QID 05/1007/08/2015 Inactive potassium chloride 20 mEq/15 mL oral liquid RxNorm: 380713 TAKE 2 TABLESPOONS DAILY 04/22/2015 10/18/2015 Inactive naproxen sodium 550 mg tablet RxNorm: 080642 Tablet(s) Take 1 tablet by mouth twice a day 03/10/2015 06/01/2016 Inactive naproxen sodium 550 mg tablet RxNorm: 561595 Take 1 tablet by mouth twice a day 03/09/2015 11/15/2016 Inactive 2nd Attempt Pristiq 50 mg tablet,extended release RxNorm: 718607 1 Tablet(s) PO BID 03/09/2015 03/08/2015 Inactive naproxen sodium 550 mg tablet RxNorm: 507063 1 Tablet(s) PO BID 03/09/2015 03/08/2015 Inactive naproxen sodium 550 mg tablet RxNorm: 330093 Take 1 tablet by mouth twice a day 03/09/2015 03/09/2015 Inactive Pristiq 50 mg tablet,extended release RxNorm: 885226 Take 1 tablet twice a day 03/09/2015 03/29/2016 Inactive folic acid 1 mg tablet RxNorm: 204719 TAKE ONE TABLET BY MOUTH EVERY DAY 01/17/2015 11/02/2015 Inactive Vitamin B-12 1,000 mcg/mL injection solution RxNorm: 028142 INJECT 1 MLS DIRECTED ONCE WEEKLY 12/03/20142015 Inactive hydrocodone 10 mg-acetaminophen 325 mg tablet RxNorm: 607204 1 Tablet(s) PO Q6 PRN 11/22/2014 12/21/2014 Inactive [SAVINGS FOR NON-COVERED DRUGS -- BIN:609517, PCN: ASPROD1, Group: XXXXX, ID# [id number], Questions: . THIS IS NOT INSURANCE.] ceftriaxone 1 gram solution for injection RxNorm: 3335384 Inj 11/11/2014 11/11/2014 Inactive [SAVINGS FOR NON-COVERED DRUGS -- BIN:135800, PCN: ASPROD1, Group: XXXXX, ID# [id number], Questions: . THIS IS NOT INSURANCE.] Glucocard Vital Sensor strips RxNorm: 1 test Miscellaneous BID 10/27/2014 10/26/2014 Inactive DX code 790.29 Glucocard Vital Sensor strips RxNorm: 1 test Miscellaneous BID 10/27/2014 11/20/2015 Inactive DX code 790.29 [SAVINGS FOR UNINSURED PATIENTS -- BIN:707029, PCN: ASPROD1, Group: [id number], ID# [id number], Process claim through [employer], for questions: . THIS IS NOT INSURANCE.] topiramate 100 mg tablet RxNorm: 672363 2 Tablet(s) PO BID 04/27/2015 Inactive [SAVINGS FOR UNINSURED PATIENTS -- BIN:589460, PCN: ASPROD1, Group: [id number] , ID# [id number], Process claim through [employer], for questions: . THIS IS NOT INSURANCE.] Cholestyramine Susp Light 4 gram powder for susp in a packet RxNorm: 471102 packet PO PRN as needed 08/30/20142015 Inactive Nitro-Bid 2 % transdermal ointment RxNorm: 970314 1 Application TD TID as needed raynauds symptoms of feet 07/14/201410/11 Inactive Flonase 50 mcg/actuation nasal spray,suspension RxNorm: 748015 PLACE 2 SPRAYS IN EACH NOSTRIL DAILY 05/25/2014 08/22/2014 Inactive potassium chloride 20 mEq/15 mL oral liquid RxNorm: 802357 2 Tablespoon(s) PO daily 04/20/2014 04/21/2015 Inactive potassium chloride 10 % oral liquid RxNorm: 011637 2 Tablespoon(s) PO daily 04/20/2014 04/19/2014 Inactive potassium chloride 10 % oral liquid RxNorm: 246879 2 Tablespoon(s) PO daily 04/09/2014 04/19/2014 Inactive folic acid 1 mg tablet RxNorm: 467002 Tablet(s) PO TAKE ONE TABLET BY MOUTH EVERY DAY 02/15/2014 No Stop Date Active folic acid 1 mg tablet RxNorm: 861670 Tablet(s) PO TAKE ONE TABLET BY MOUTH EVERY DAY 02/15/2014 01/16/2015 Inactive folic acid 1 mg tablet RxNorm: 955929 1 Tablet(s) PO daily TAKE ONE TABLET BY MOUTH EVERY DAY 02/15/2014 02/14/2014 Inactive Flonase 50 mcg/actuation nasal spray,suspension RxNorm: 936032 1 [place] NASAL BID 01/12/2014 08/09/2014 Inactive topiramate 100 mg tablet RxNorm: 613608 1.5 Tablet(s) PO BID 08/09/2014 Inactive amoxicillin 500 mg capsule RxNorm: 317009 1 Capsule(s) PO TID 12/24/2013 12/30/2013 Inactive amoxicillin 500 mg capsule RxNorm: 127488 1 Capsule(s) PO TID 12/24/2013 12/23/2013 Inactive Pristiq 50 mg tablet,extended release RxNorm: 949909 1 Tablet(s) PO BID 12/01/2013 02/23/2015 Inactive Vitamin B-12 1,000 mcg/mL injection solution RxNorm: 760245 1 Milliliter(s) Inj QW 11/10/2013 11/09/2013 Inactive Vitamin B-12 1,000 mcg/mL injection solution RxNorm: 455189 1 Milliliter(s) Inj QW 11/10/2013 12/02/2014 Inactive Myrbetriq 25 mg tablet,extended release RxNorm: 3095675 1 Tablet(s) PO daily 10/20/2013 08/16/2014 Inactive fluconazole 150 mg tablet RxNorm: 373785 1 Tablet(s) PO daily 09/15/2013 09/19/2013 Inactive amoxicillin 875 mg-potassium clavulanate 125 mg tablet RxNorm: 362707 1 Tablet(s) PO BID 09/15/2013 09/24/2013 Inactive Pristiq 50 mg tablet,extended release RxNorm: 448641 1 Tablet(s) PO BID 07/30/2013 11/30/2013 Inactive Topamax 25 mg tablet RxNorm: 565060 4 Tablet(s) PO BID 201201/11/2014 Inactive vitamin B12 200mcg [place], Suspension RxNorm: 1 [place] PO daily 07/27/2013 12/25/2015 Inactive Flonase 50 mcg/actuation nasal spray,suspension RxNorm: 266717 2 [place] NASAL daily 06/09/2013 07/08/2013 Inactive Carafate 1 gram tablet RxNorm: 629288 1 Tablet(s) PO ac and hs 05/07/2013 05/06/2013 Inactive Carafate 1 gram tablet RxNorm: 322188 1 Tablet(s) PO ac and hs 05/07/2013 05/31/2014 Inactive potassium chloride 10 % Oral Liquid RxNorm: 244218 1 Tablespoon(s) PO daily 03/23/2013 04/08/2014 Inactive folic acid 1 mg tablet RxNorm: 263220 Tablet(s) PO TAKE ONE TABLET BY MOUTH EVERY DAY 01/29/2013 02/14/2014 Inactive naproxen sodium 550 mg tablet RxNorm: 974321 1 Tablet(s) PO BID 01/21/2013 10/26/2014 Inactive hydrocodone 5 mg-acetaminophen 500 mg tablet RxNorm: 137961 1 Tablet(s) PO Q8 PRN 12/25/2012 02/19/2017 Inactive folic acid 1 mg tablet RxNorm: 887878 1 Tablet(s) PO daily 01/28/2013 Inactive cyanocobalamin (vitamin B-12) 1,000 mcg/mL Injection RxNorm: 576255 1 Milliliter(s ) Inj 2 x month inject 1 mL every other week intramuscularly 11/03/2012 11/02/2012 Inactive please provide 25 gauge syringes as well. cyanocobalamin (vitamin B-12) 1,000 mcg/mL Injection RxNorm: 922533 Milliliter(s) Inj 11/03/2012 11/03/2012 Inactive cyanocobalamin (vitamin B-12) 1,000 mcg/mL Injection RxNorm: 758847 1 Milliliter(s ) Inj 2 x month inject 1 mL every other week intramuscularly 11/03/2012 12/25/2015 Inactive please provide 25 gauge syringes as well. cyanocobalamin (vitamin B-12) 1,000 mcg/mL Injection RxNorm: 796727 1 Milliliter(s ) Inj 10/20/2012 10/20/2012 Inactive Vitamin B-12 1,000 mcg/mL Injection RxNorm: 716615 1 Milliliter(s) Inj 09/11/2012 09/11/2012 Inactive Zithromax Z-Juanpablo 250 mg tablet RxNorm: 684076 Tablet(s) PO UD 12/24/2012 Inactive please give z juanpablo hydrochlorothiazide 25 mg tablet RxNorm: 553949 1/2 Tablet(s) PO daily 08/11/2012 No Stop Date Active Vitamin B-12 1,000 mcg/mL Injection RxNorm: 788217 Milliliter(s) Inj 08/11/2012 08/11/2012 Inactive Vitamin D2 50,000 unit capsule RxNorm: 337725 Capsule(s) PO one weekly for 8 weeks then resume her daily dosing 07/21/2012 07/20/2012 Inactive Vitamin B-12 1,000 mcg/mL Injection RxNorm: 260271 Milliliter(s) Inj 07/21/2012 07/21/2012 Inactive Vitamin D2 50,000 unit capsule RxNorm: 884017 Capsule(s) PO one weekly for 8 weeks then resume her daily dosing 07/21/2012 09/18/2012 Inactive Diflucan 150 mg tablet RxNorm: 120454 1 Tablet(s) PO daily 09/201107/12/2012 Inactive HyoMax-SR 0.375 mg tablet,extended release RxNorm: 6290374 Tablet(s) PO PRN No Start Date Active Maxalt-POLISHER AND BUFFER 10 mg disintegrating tablet RxNorm: 021629 Tablet(s) PO PRN No Start Date Active Vitamin D3 2,000 unit tablet RxNorm: 232428 1 Tablet(s) PO daily No Start Date Active potassium chloride 20 mEq/15 mL oral liquid RxNorm: 125855 2 Tablespoon(s) PO daily No Start Date Active Zetia 10 mg tablet RxNorm: 235782 1 Tablet(s) PO QPM No Start Date Active metoprolol tartrate 50 mg tablet RxNorm: 191463 1 Tablet(s) PO BID No Start Date Active biotin 2,500 mcg tablet RxNorm: 286391 1 Tablet(s) PO daily No Start Date Active Zyrtec 10 mg tablet RxNorm: 8283978 1 Tablet(s) PO PRN No Start Date Active Praluent Pen 75 mg/mL subcutaneous pen injector RxNorm: 9977229 1 Milliliter(s) SQ Q 2 weeks No Start Date Active amlodipine 10 mg tablet RxNorm: 007772 1 Tablet(s) PO daily No Start Date Active Fioricet oral RxNorm: 969440 oral No Start Date Active Cholestyramine Susp Light 4 gram Packet RxNorm: 281210 packet PO PRN No Start Date 08/29/2014 Inactive Pristiq 50 mg tablet,extended release RxNorm: 779881 1 Tablet(s) PO daily No Start Date 07/29/2013 Inactive Topamax 25 mg tablet RxNorm: 078752 3 Tablet(s) PO BID No Start Date 07/29/2013 Inactive pantoprazole 40 mg tablet,delayed release RxNorm: 404074 1 Tablet(s) PO daily No Start Date 07/07/2018 Inactive Tricor 145 mg tablet RxNorm: 937855 1 Tablet(s) PO daily No Start Date 12/24/2012 Inactive Zithromax Z-Juanpablo 250 mg tablet RxNorm: 965367 Tablet(s) PO UD No Start Date 08/11/2012 Inactive Fish Oil 1,000 mg capsule RxNorm: 1 Capsule(s) PO BID No Start Date 07/07/2018 Inactive Vitamin D3 2,000 unit capsule RxNorm: 346583 1 Capsule(s) PO daily No Start Date 12/25/2015 Inactive Vagifem 10 mcg vaginal tablet RxNorm: 462122 1-2 Tablet(s) VAG weekly No Start Date 06/10/2016 Inactive Gelnique 10 % (100 mg/gram) transdermal gel packet RxNorm: 108809 3% gel 3 pumps TD daily No Start Date 08/09/2014 Inactive Vitamin D3 5,000 unit tablet RxNorm: 902129 1 Tablet(s) PO daily No Start Date 06/10/2016 Inactive hydrochlorothiazide 25 mg tablet RxNorm: 537434 1 Tablet(s) PO daily No Start Date 08/10/2012 Inactive Flexeril 10 mg tablet RxNorm: 920233 Tablet(s) PO No Start Date 06/10/2016 Inactive 1 q am1/2 with dinner1 hs Valium 5 mg tablet RxNorm: 233365 1 Tablet(s) PO PRN No Start Date 06/26/2017 Inactive amlodipine 5 mg tablet RxNorm: 201725 1 Tablet(s) PO daily No Start Date 03/15/2014 Inactive Phenergan VC-Codeine 6.25 mg-5 mg-10 mg/5 mL syrup RxNorm: 676242 5 Milliliter(s) PO Q6 as needed cough No Start Date 2015 Inactive Zithromax Z-Juanpablo 250 mg tablet RxNorm: 512648 Tablet(s) PO UD No Start Date 07/30/2013 Inactive naproxen 500 mg tablet RxNorm: 876989 Tablet(s) PO BID PRN No Start Date 01/20/2013 Inactive Lovaza 1 gram capsule RxNorm: 464349 2 Capsule(s) PO BID No Start Date 03/04/2018 Inactive hydrocodone 5 mg-acetaminophen 500 mg tablet RxNorm: 224433 1 Tablet(s) PO Q8 PRN No Start Date 12/24/2012 Inactive biotin 1000 mg RxNorm : 2 PO No Start Date 06/11/2016 Inactive aspirin 81 mg tablet,delayed release RxNorm: 036868 1 Tablet(s) PO daily No Start Date 07/07/2018 Inactive Lomotil 2.5 mg-0.025 mg tablet RxNorm: 6181455 Tablet(s) PO PRN No Start Date 04/23/2016 Inactive Ditropan XL 5 mg tablet,extended release RxNorm: 027125 1 Tablet(s) PO daily No Start Date 06/09/2018 Inactive Antara 130 mg capsule RxNorm: 033011 1 Capsule(s) PO daily No Start Date 07/07/2018 Inactive folic acid 1 mg tablet RxNorm: 267719 1 Tablet(s) PO daily No Start Date 11/02/2012 Inactive amitriptyline 25 mg tablet RxNorm: 745658 1 Tablet(s) PO QHS dr fonseca No Start Date 03/29/2016 Inactive Gelnique transdermal RxNorm: 957730 transdermal No Start Date 03/25/2016 Inactive Toprol XL 50 mg tablet,extended release RxNorm: 050218 1 Tablet(s) PO daily No Start Date 04/08/2017 Inactive potassium chloride 10 % Oral Liquid RxNorm: 771959 1 Tablespoon(s) PO daily No Start Date 03/22/2013 Inactive Lipitor 10 mg tablet RxNorm: 697301 1 Tablet(s) PO QHS No Start Date 12/24/2012 Inactive diltiazem 120 mg tablet RxNorm: 449143 1 Tablet(s) PO daily No Start Date 08/10/2012 Inactive Combivent Respimat 20 mcg-100 mcg/actuation solution for inhalation RxNorm: 1108014 1-2 Puff(s) INH Q4 PRN No Start Date 07/25/2017 Inactive Medication Administered Medication Codes Instructions Start Date Status ceftriaxone 1 gram solution for injection RxNorm: 1298099 11/11/2014 No longer Active cyanocobalamin (vitamin B-12) 1,000 mcg/mL Injection RxNorm : 943681 Milliliter 11/03/2012 No longer Active cyanocobalamin (vitamin B-12) 1,000 mcg/mL Injection RxNorm : 548516 1Milliliter 10/20/2012 No longer Active Vitamin B-12 1,000 mcg/mL Injection RxNorm: 331205 1Milliliter 09/11/2012 No longer Active Vitamin B-12 1,000 mcg/mL Injection RxNorm: 556765 Milliliter 08/11/2012 No longer Active Vitamin B-12 1,000 mcg/mL Injection RxNorm: 889395 Milliliter 07/21/2012 No longer Active Immunizations Vaccine Codes Date Status Influenza CVX: 141 06/05/2018 completed Influenza CVX: 141 06/19/2017 completed Tetanus, Diptheria, Pertussis CVX: 113 completed Tetanus/Diptheria CVX: 113 03/30/2015 completed Influenza CVX: 141 05/12/2012 completed Pneumococcal CVX: 33 06/11/2011 completed Assessments Condition Codes Effective Dates Encounter for screening mammogram for malignant neoplasm of breast ICD-10: Z12.31 ICD-9: V76.10 07/09/2018 Essential (primary) hypertension ICD-10: I10 ICD-9: 401.9 07/08/2018 Major depressive disorder, recurrent, moderate ICD-10: F33.1 ICD-9: 296.32 07/08/2018 Generalized anxiety disorder ICD-10: F41.1 ICD-9: 300.00 07/08/2018 Encounter for immunization ICD-10: Z23 ICD-9: V03.82 06/05/2018 Mixed hyperlipidemia ICD-10: E78.2 ICD-9: 272.2 02/11/2018 Nontoxic multinodular goiter ICD-10: E04.2 ICD-9: 241.1 02/11/2018 Essential (primary) hypertension ICD-10: I10 ICD-9: 401.1 02/11/2018 Other fatigue ICD-10: R53.83 ICD-9: 780.79 11/12/2017 Encounter for other preprocedural examination ICD-10: Z01.818 [...] Reason For Visit Effective Dates Notes depression 07/08/2018 hypertension 02/11/2018 hypertension 11/12/2017 hypertension [...] Observation Code Item Item Code Result Date Lipid Ord30 CHOL 202 mg/dL 05/01/2018 Lipid Ord30 HDL 54.0 mg/dl 05/01/2018 Lipid Ord30 TRIG 359 mg/dL 05/01/2018 Lipid Ord30 LDL 76 mg/dL 05/01/2018 Lipid Ord30 C/HDL 3.7 Ratio 05/01/2018 Comp Metabolic Xvw840 NA 140 mEq/L 05/01/2018 Comp Metabolic Hmx350 K 4.1 mEq/L 05/01/2018 Comp Metabolic Bxn203 CL 107 mEq/L 05/01/2018 Comp Metabolic Cct336 CO2 25.0 mEq/L 05/01/2018 Comp Metabolic Rbz284 ANION GAP 12 05/01/2018 Comp Metabolic Xdi544 GLUCOSE 98 mg/dL 05/01/2018 Comp Metabolic Mgu036 Creat 0.7 mg/dL 05/01/2018 Comp Metabolic Mlu232 eGFR 96 ml/min/1.73m2 05/01/2018 Comp Metabolic Vnq869 BUN 14 mg/dL 05/01/2018 Comp Metabolic Ahl065 B/C Ratio 20.9 Ratio 05/01/2018 Comp Metabolic Kds617 CALCIUM 9.5 mg/dL 05/01/2018 Comp Metabolic Okn950 ALK PHOS 74 U/L 05/01/2018 Comp Metabolic Dwv247 AST(SGOT) 19 U/L 05/01/2018 Comp Metabolic Frg212 ALT(SGPT) 29 U/L 05/01/2018 Comp Metabolic Qnd850 BILI T 0.3 mg/dL 05/01/2018 Comp Metabolic Qpb408 ALBUMIN 4.3 g/dL 05/01/2018 Comp Metabolic Lxz426 TPRO 6.7 g/dL 05/01/2018 Comp Metabolic Lmy350 GLOB 2.4 g/dL 05/01/2018 Comp Metabolic Kcw611 A/G Ratio 1.8 Ratio 05/01/2018 Comp Metabolic Fms799 Osmo 280 mOsmo 05/01/2018 Free T4 Mkz326 FREE T4 0.95 ng/dL 02/11/2018 Tsh Ord6 TSH (3rd IS) 2.16 uIU/mL 02/11/2018 Free T4 Zjl499 FREE T4 0.81 ng/dL 11/12/2017 Tsh Ord6 TSH (3rd IS) 1.66 uIU/mL 11/12/2017 Tsh Ord6 hTSH II 1.45 uIU/mL 08/20/2017 Free T4 Bny533 FREE T4 0.80 ng/dL 08/20/2017 Hepatic Atv038 ALBUMIN 4.4 g/dL 08/20/2017 Hepatic Urn047 TPRO 6.6 g/dL 08/20/2017 Hepatic Svr630 GLOB 2.2 g/dL 08/20/2017 Hepatic Bqv363 A/G Ratio 2.0 Ratio 08/20/2017 Hepatic Wbn904 ALK PHOS 50 U/L 08/20/2017 Hepatic Vdg498 ALT(SGPT) 20 U/L 08/20/2017 Hepatic Hya445 AST(SGOT) 20 U/L 08/20/2017 Hepatic Smw625 BILI T 0.3 mg/dL 08/20/2017 Hepatic Uez363 BILI D 0.1 mg/dL 08/20/2017 Hepatic Bhe125 BILI I 0.2 mg/dL 08/20/2017 Lipid Ord30 [...] 25.0 % 02/21/2017 Cbc With Differential Ord2 Stanton% 6.9 % 02/21/2017 Cbc With Differential Ord2 MCH 30.3 pg 02/21/2017 Cbc With Differential Ord2 Eos% 2.6 % 02/21/2017 Cbc With Differential Ord2 MCHC 33.0 pg 02/21/2017 Cbc With Differential Ord2 PLT 296 K/ul 02/21/2017 Cbc With Differential Ord2 Baso% 0.3 % 02/21/2017 Cbc With Differential Ord2 Neut ABS# 4.74 K/ul 02/21/2017 Cbc With Differential Ord2 RDW 13.9 % 02/21/2017 Cbc With Differential Ord2 Lymph ABS# 1.82 K/ul 02/21/2017 Cbc With Differential Ord2 Stanton ABS# 0.5 K/ul 02/21/2017 Cbc With Differential Ord2 Eos ABS# 0.2 K/ul 02/21/2017 Cbc With Differential Ord2 Baso ABS# 0.0 K/ul 02/21/2017 %Hba1C Bxm700 % HbA1c 69937-0 5.8 % 02/21/2017 %Hba1C Mbe861 Gluc Ave 120 mg/dL 02/21/2017 Tsh Ord6 hTSH II 1.90 uIU/mL 02/21/2017 Vitamin D 25 Oh Rdt4343 VITAMIN D, 25 HYDROXY 42.82 ng/mL Comp Metabolic Sig367 NA 141 mEq/L 02/21/2017 Comp Metabolic Yir882 K 4.1 mEq/L 02/21/2017 Comp Metabolic Jru265 CL 107 mEq/L 02/21/2017 Comp Metabolic Iua315 CO2 25.0 mEq/L 02/21/2017 Comp Metabolic Lym324 ANION GAP 13 02/21/2017 Comp Metabolic Nzw446 GLUCOSE 87 mg/dL 02/21/2017 Comp Metabolic Usj231 Creat 0.8 mg/dL 02/21/2017 Comp Metabolic Cnu440 eGFR 80 ml/min/1.73m2 02/21/2017 Comp Metabolic Vai156 BUN 20 mg/dL 02/21/2017 Comp Metabolic Zxz144 B/C Ratio 25.3 Ratio 02/21/2017 Comp Metabolic Srn305 CALCIUM 9.5 mg/dL 02/21/2017 Comp Metabolic Ygf987 ALK PHOS 61 U/L 02/21/2017 Comp Metabolic Fcz496 AST(SGOT) 16 U/L 02/21/2017 Comp Metabolic Bif805 ALT(SGPT) 19 U/L 02/21/2017 Comp Metabolic Fog714 BILI T 0.3 mg/dL 02/21/2017 Comp Metabolic Xci741 ALBUMIN 4.4 g/dL 02/21/2017 Comp Metabolic Zzn340 TPRO 7.0 g/dL 02/21/2017 Comp Metabolic Koh962 GLOB 2.6 g/dL 02/21/2017 Comp Metabolic Zeb971 A/G Ratio 1.7 Ratio 02/21/2017 Comp Metabolic Old476 Osmo 283 mOsmo 02/21/2017 Lipid Ord30 CHOL 185 mg/dL 02/21/2017 Lipid Ord30 HDL 74.0 mg/dl 02/21/2017 Lipid Ord30 TRIG 148 mg/dL 02/21/2017 Lipid Ord30 LDL 81 mg/dL 02/21/2017 Lipid Ord30 C/HDL 2.5 Ratio 02/21/2017 Hepatic Caa645 ALBUMIN 4.9 g/dL 08/21/2016 Hepatic Wae149 TPRO 7.3 g/dL 08/21/2016 Hepatic Uou422 GLOB 2.5 g/dL 08/21/2016 Hepatic Xra532 A/G Ratio 2.0 Ratio 08/21/2016 Hepatic Xpt346 ALK PHOS 76 U/L 08/21/2016 Hepatic Rbt399 ALT(SGPT) 29 U/L 08/21/2016 Hepatic Znd384 AST(SGOT) 22 U/L 08/21/2016 Hepatic Nca166 BILI T 0.4 mg/dL 08/21/2016 Hepatic Mga032 BILI D 0.1 mg/dL 08/21/2016 Hepatic Vay811 BILI I 0.3 mg/dL 08/21/2016 Lipid Ord30 CHOL 302 mg/dL 08/21/2016 Lipid Ord30 HDL 69.0 mg/dl 08/21/2016 Lipid Ord30 TRIG 223 mg/dL 08/21/2016 Lipid Ord30 LDL 188 mg/dL 08/21/2016 Lipid Ord30 C/HDL 4.4 Ratio 08/21/2016 Lipase Twq996 LIPASE 14 U/L 06/04/2016 Cbc With Differential [...] 30.0 pg 06/04/2016 Cbc With Differential Ord2 Stanton% 6.5 % 06/04/2016 Cbc With Differential Ord2 MCHC 32.7 pg 06/04/2016 Cbc With Differential Ord2 Eos% 1.8 % 06/04/2016 Cbc With Differential Ord2 Baso% 0.2 % 06/04/2016 Cbc With Differential Ord2 PLT 315 K/ul 06/04/2016 Cbc With Differential Ord2 Neut ABS# 4.09 K/ul 06/04/2016 Cbc With Differential Ord2 RDW 13.9 % 06/04/2016 Cbc With Differential Ord2 Lymph ABS# 1.50 K/ul 06/04/2016 Cbc With Differential Ord2 Stanton ABS# 0.4 K/ul 06/04/2016 Cbc With Differential Ord2 Eos ABS# 0.1 K/ul 06/04/2016 Cbc With Differential Ord2 Baso ABS# 0.0 K/ul 06/04/2016 Comp Metabolic Gzn285 NA 135 mEq/L 06/04/2016 Comp Metabolic Hoc870 K 3.8 mEq/L 06/04/2016 Comp Metabolic Fqm382 CL 101 mEq/L 06/04/2016 Comp Metabolic Xkl018 CO2 26.0 mEq/L 06/04/2016 Comp Metabolic Gtt950 ANION GAP 12 06/04/2016 Comp Metabolic Kwv327 GLUCOSE 91 mg/dL 06/04/2016 Comp Metabolic Myq974 Creat 0.8 mg/dL 06/04/2016 Comp Metabolic Egr701 eGFR 74 ml/min/1.73m2 06/04/2016 Comp Metabolic Wal767 BUN 16 mg/dL 06/04/2016 Comp Metabolic Yzl736 B/C Ratio 19.0 Ratio 06/04/2016 Comp Metabolic Oah999 CALCIUM 10.0 mg/dL 06/04/2016 Comp Metabolic Mnl508 ALK PHOS 76 U/L 06/04/2016 Comp Metabolic Qgb177 AST(SGOT) 20 U/L 06/04/2016 Comp Metabolic Ucc677 ALT(SGPT) 24 U/L 06/04/2016 Comp Metabolic Wai076 BILI T 0.3 mg/dL 06/04/2016 Comp Metabolic Apo390 ALBUMIN 4.6 g/dL 06/04/2016 Comp Metabolic Rlu527 TPRO 6.9 g/dL 06/04/2016 Comp Metabolic Vdk125 GLOB 2.3 g/dL 06/04/2016 Comp Metabolic Vdq762 A/G Ratio 2.0 Ratio 06/04/2016 Comp Metabolic Gnk286 Osmo 271 mOsmo 06/04/2016 Amylase Ord34 AMYLASE 31 U/L 06/04/2016 Hepatic Nro666 ALBUMIN 4.3 g/dL 2016 Hepatic Kre683 TPRO 6.7 g/dL 2016 Hepatic Dwx372 GLOB 2.4 g/dL 2016 Hepatic Scf058 A/G Ratio 1.8 Ratio 2016 Hepatic Vvh539 ALK PHOS 50 U/L 2016 Hepatic Ivy630 ALT(SGPT) 20 U/L 2016 Hepatic Mpj859 AST(SGOT) 18 U/L 2016 Hepatic Dxe291 BILI T 0.4 mg/dL 2016 Hepatic Ibc941 BILI D 0.1 mg/dL 2016 Hepatic Qzz193 BILI I 0.3 mg/dL 2016 Lipid Ord30 CHOL 245 mg/dL 2016 Lipid Ord30 HDL 62.0 mg/dl 2016 Lipid Ord30 TRIG 140 mg/dL 2016 Lipid Ord30 LDL 155 mg/dL 2016 Lipid Ord30 C/HDL 4.0 Ratio 2016 Urine Culture Ucult Preliminary No Growth Day 1 09/15/2015 Urine Culture Ucult Complete No Growth Day 2 09/15/2015 Magnesium Ord90 Mag 1.9 mg/dL 09/07/2015 Comp Metabolic Gso651 NA 139 mEq/L 09/07/2015 Comp Metabolic Hhl692 K 4.4 mEq/L 09/07/2015 Comp Metabolic Pvu495 CL 107 mEq/L 09/07/2015 Comp Metabolic Goi525 CO2 24.0 mEq/L 09/07/2015 Comp Metabolic Idq888 ANION GAP 12 09/07/2015 Comp Metabolic Mlk159 GLUCOSE 91 mg/dL 09/07/2015 Comp Metabolic Tcc526 Creat 1.0 mg/dL 09/07/2015 Comp Metabolic Rxb193 eGFR 64 ml/min/1.73m2 09/07/2015 Comp Metabolic Exc861 BUN 31 mg/dL 09/07/2015 Comp Metabolic Jon691 B/C Ratio 32.3 Ratio 09/07/2015 Comp Metabolic Mpf814 CALCIUM 9.7 mg/dL 09/07/2015 Comp Metabolic Div967 ALK PHOS 56 U/L 09/07/2015 Comp Metabolic Loo428 AST(SGOT) 29 U/L 09/07/2015 Comp Metabolic Qtz986 ALT(SGPT) 34 U/L 09/07/2015 Comp Metabolic Rjm866 BILI T 0.3 mg/dL 09/07/2015 Comp Metabolic Mdg551 ALBUMIN 4.6 g/dL 09/07/2015 Comp Metabolic Agu994 TPRO 7.0 g/dL 09/07/2015 Comp Metabolic Sih261 GLOB 2.4 g/dL 09/07/2015 Comp Metabolic Sia830 A/G Ratio 1.9 Ratio 09/07/2015 Comp Metabolic Lgq437 Osmo 284 mOsmo 09/07/2015 Bili D Ord93 BILI D 0.1 mg/dL 09/07/2015 Bili D Ord93 BILI I 0.2 mg/dL 09/07/2015 Lipid Ord30 CHOL 243 mg/dL 09/07/2015 Lipid Ord30 HDL 75.0 mg/dl 09/07/2015 Lipid Ord30 TRIG 161 mg/dL 09/07/2015 Lipid Ord30 LDL 136 mg/dL 09/07/2015 Lipid Ord30 C/HDL 3.2 Ratio 09/07/2015 Tsh Ord6 hTSH II 2.53 uIU/mL 06/13/2015 Comp Metabolic Jou813 NA 138 mEq/L 06/13/2015 Comp Metabolic Dhc530 K 4.0 mEq/L 06/13/2015 Comp Metabolic Kwz033 CL 104 mEq/L 06/13/2015 Comp Metabolic Jhq104 CO2 26.0 mEq/L 06/13/2015 Comp Metabolic Vwz872 ANION GAP 12 06/13/2015 Comp Metabolic Rft608 GLUCOSE 86 mg/dL 06/13/2015 Comp Metabolic Tnl326 Creat 0.9 mg/dL 06/13/2015 Comp Metabolic Vpe115 eGFR 71 ml/min/1.73m2 06/13/2015 Comp Metabolic Iup907 BUN 18 mg/dL 06/13/2015 Comp Metabolic Mfu402 B/C Ratio 20.5 Ratio 06/13/2015 Comp Metabolic Wao896 CALCIUM 10.1 mg/dL 06/13/2015 Comp Metabolic Znl106 ALK PHOS 52 U/L 06/13/2015 Comp Metabolic Bow413 AST(SGOT) 18 U/L 06/13/2015 Comp Metabolic Mwb852 ALT(SGPT) 21 U/L 06/13/2015 Comp Metabolic Olk179 BILI T 0.3 mg/dL 06/13/2015 Comp Metabolic Chk422 ALBUMIN 4.7 g/dL 06/13/2015 Comp Metabolic Bia128 TPRO 6.9 g/dL 06/13/2015 Comp Metabolic Fqa680 GLOB 2.2 g/dL 06/13/2015 Comp Metabolic Jya841 A/G Ratio 2.1 Ratio 06/13/2015 Comp Metabolic Cgy337 Osmo 277 mOsmo 06/13/2015 %Hba1C Rng660 % HbA1c 19635-9 5.7 % 06/13/2015 %Hba1C Lhs647 Gluc Ave 117 mg/dL 06/13/2015 Cbc With [...] 14.7 % 06/13/2015 Vitamin D 25 Oh Dua6428 VITAMIN D, 25 HYDROXY 41.85 ng/mL Cbc [...] Ord2 RDW 14.5 % 04/18/2015 Comp Metabolic Fay849 NA 137 mEq/L 04/18/2015 Comp Metabolic Fxi808 K 4.0 mEq/L 04/18/2015 Comp Metabolic Zrw844 CL 105 mEq/L 04/18/2015 Comp Metabolic Nvw822 CO2 23.0 mEq/L 04/18/2015 Comp Metabolic Pku586 ANION GAP 13 04/18/2015 Comp Metabolic Wqt905 GLUCOSE 73 mg/dL 04/18/2015 Comp Metabolic Vfh022 Creat 0.9 mg/dL 04/18/2015 Comp Metabolic Xmy127 eGFR 72 ml/min/1.73m2 04/18/2015 Comp Metabolic Etg598 BUN 17 mg/dL 04/18/2015 Comp Metabolic Exw766 B/C Ratio 19.5 Ratio 04/18/2015 Comp Metabolic Bvy069 CALCIUM 9.7 mg/dL 04/18/2015 Comp Metabolic Ooh645 ALK PHOS 55 U/L 04/18/2015 Comp Metabolic Dno902 AST(SGOT) 28 U/L 04/18/2015 Comp Metabolic Xyp050 ALT(SGPT) 27 U/L 04/18/2015 Comp Metabolic Kxi445 BILI T 0.3 mg/dL 04/18/2015 Comp Metabolic Ejo613 ALBUMIN 4.5 g/dL 04/18/2015 Comp Metabolic Rgq429 TPRO 7.0 g/dL 04/18/2015 Comp Metabolic Cgp113 GLOB 2.5 g/dL 04/18/2015 Comp Metabolic Yia454 A/G Ratio 1.8 Ratio 04/18/2015 Comp Metabolic Owm608 Osmo 274 mOsmo 04/18/2015 Cbc With Differential [...] Ord2 RDW 15.0 % 03/22/2015 Comp Metabolic Lpc910 NA 136 mEq/L 03/22/2015 Comp Metabolic Kjk045 K 4.1 mEq/L 03/22/2015 Comp Metabolic Rju083 CL 102 mEq/L 03/22/2015 Comp Metabolic Whd822 CO2 26.0 mEq/L 03/22/2015 Comp Metabolic Euq194 ANION GAP 12 03/22/2015 Comp Metabolic Xbl217 GLUCOSE 82 mg/dL 03/22/2015 Comp Metabolic Cqg017 Creat 0.9 mg/dL 03/22/2015 Comp Metabolic Lgj730 eGFR 69 ml/min/1.73m2 03/22/2015 Comp Metabolic Ezh647 BUN 30 mg/dL 03/22/2015 Comp Metabolic Oan639 B/C Ratio 33.3 Ratio 03/22/2015 Comp Metabolic Ccj705 CALCIUM 10.3 mg/dL 03/22/2015 Comp Metabolic Lrt936 ALK PHOS 56 U/L 03/22/2015 Comp Metabolic Bvx226 AST(SGOT) 17 U/L 03/22/2015 Comp Metabolic Skj855 ALT(SGPT) 17 U/L 03/22/2015 Comp Metabolic Kfy086 BILI T 0.3 mg/dL 03/22/2015 Comp Metabolic Bir419 ALBUMIN 4.7 g/dL 03/22/2015 Comp Metabolic Hra788 TPRO 7.2 g/dL 03/22/2015 Comp Metabolic Msx291 GLOB 2.5 g/dL 03/22/2015 Comp Metabolic Zdx917 A/G Ratio 1.9 Ratio 03/22/2015 Comp Metabolic Pcd090 Osmo 277 mOsmo 03/22/2015 FREE T4 7729789 FREE T4 1.24 NG/DL 10/18/2014 CHEM 14 8089156 AST 14 U/L 10/15/2014 CHEM 14 7766516 ALT 15 IU/L 10/15/2014 CHEM 14 6411235 BUN 23 MG/DL 10/15/2014 CHEM 14 1127161 ALBUMIN 4.8 GM/DL 10/15/2014 CHEM 14 4101910 CHLORIDE 105 MMOL/L 10/15/2014 CHEM 14 4180303 BILI TOT 0.3 MG/DL 10/15/2014 CHEM 14 7694557 ALK PHOS 60 U/L 10/15/2014 CHEM 14 8183646 SODIUM 140 MMOL/L 10/15/2014 CHEM 14 4630712 CREATININE 0.89 MG/DL 10/15/2014 CHEM 14 4280056 CALCIUM 10.0 MG/DL 10/15/2014 CHEM 14 6534424 POTASSIUM 3.7 MMOL/L 10/15/2014 CHEM 14 0828731 PROT TOT 7.2 GM/DL 10/15/2014 CHEM 14 7120404 GLUCOSE 97 MG/DL 10/15/2014 CHEM 14 8642064 BICARB 25 MMOL/L 10/15/2014 CHEM 14 6170241 ANION GAP 10 MEQ/L 10/15/2014 CBC 5446657 WBC 6.7 10e9/L 10/15/2014 CBC 4354675 RBC 4.49 10e12/L 10/15/2014 CBC 3803007 HGB 13.4 g/dL 10/15/2014 CBC 8322645 HCT DET 40.2 % 10/15/2014 CBC 8873333 MCV 89.5 fL 10/15/2014 CBC 5756888 MCH 29.8 pg 10/15/2014 CBC 4728780 MCHC 33.3 g/dL 10/15/2014 CBC 7979810 PLT 311 10e9/L 10/15/2014 CBC 3897520 MPV 10.7 fL 10/15/2014 CBC 9869835 BESSY % 63.6 % 10/15/2014 CBC 7756053 LY % 26.7 % 10/15/2014 CBC 2468064 MON % 6.6 % 10/15/2014 CBC 6042578 EOS % 2.8 % 10/15/2014 CBC 4454100 BASO % 0.3 % 10/15/2014 CBC 0863337 RDW 13.4 % 10/15/2014 CBC 9811652 ABS BESSY 4.26 10e9/L 10/15/2014 CBC 3816166 ABS LYMPH 1.79 10e9/L 10/15/2014 CBC 5498384 ABS MONO 0.44 10e9/L 10/15/2014 CBC 6937964 ABS EOS 0.19 10e9/L 10/15/2014 CBC 6568587 ABS BASO 0.02 10e9/L 10/15/2014 CBC 6552905 RDW-SD 43.2 fL 10/15/2014 A1C HPLC 2464600 A1C HPLC 83461-1 5.7 % 10/15/2014 TSH 4423304 TSH 4.083 uIU/ML 10/15/2014 GFR CALC 6918121 GFR AA >60 ML/MIN 10/15/2014 GFR CALC 8682577 GFR NON-AA >60 ML/MIN 10/15/2014 VIT D TOTL 0834756 VIT D TOTL 36 NG/ML 10/15/2014 GFR CALC 6518477 GFR AA >60 ML/MIN 06/23/2014 GFR CALC 7560436 GFR NON-AA >60 ML/MIN 06/23/2014 CHEM 14 2892236 AST 21 U/L 06/23/2014 CHEM 14 2839132 ALT 24 IU/L 06/23/2014 CHEM 14 7219406 BUN 18 MG/DL 06/23/2014 CHEM 14 5466039 ALBUMIN 4.7 GM/DL 06/23/2014 CHEM 14 5619308 CHLORIDE 109 MMOL/L 06/23/2014 CHEM 14 5307954 BILI TOT 0.3 MG/DL 06/23/2014 CHEM 14 9121752 ALK PHOS 53 U/L 06/23/2014 CHEM 14 1193890 SODIUM 140 MMOL/L 06/23/2014 CHEM 14 8754168 CREATININE 0.86 MG/DL 06/23/2014 CHEM 14 2739990 CALCIUM 10.2 MG/DL 06/23/2014 CHEM 14 8184914 POTASSIUM 3.9 MMOL/L 06/23/2014 CHEM 14 4783098 PROT TOT 6.9 GM/DL 06/23/2014 CHEM 14 9329453 GLUCOSE 87 MG/DL 06/23/2014 CHEM 14 4281073 BICARB 24 MMOL/L 06/23/2014 CHEM 14 5697587 ANION GAP 7 MEQ/L 06/23/2014 TSH 0827315 TSH 1.417 uIU/ML 06/23/2014 FREE T4 1883258 FREE T4 1.21 NG/DL 06/23/2014 TSH 8982585 TSH 3.399 uIU/ML 12/16/2013 CBC 4526506 WBC 6.4 10e9/L 12/15/2013 CBC 8996365 RBC 4.34 10e12/L 12/15/2013 CBC 0656266 HGB 12.9 g/dL 12/15/2013 CBC 7624143 HCT DET 39.3 % 12/15/2013 CBC 6111190 MCV 90.6 fL 12/15/2013 CBC 5582731 MCH 29.7 pg 12/15/2013 CBC 5119914 MCHC 32.8 g/dL 12/15/2013 CBC 7480664 PLT 292 10e9/L 12/15/2013 CBC 4912319 MPV 10.8 fL 12/15/2013 CBC 7321756 BESSY % 63.6 % 12/15/2013 CBC 7748622 LY % 25.7 % 12/15/2013 CBC 7516748 MON % 7.1 % 12/15/2013 CBC 0719471 EOS % 3.3 % 12/15/2013 CBC 3022844 BASO % 0.3 % 12/15/2013 CBC 9419224 RDW 13.4 % 12/15/2013 CBC 4762406 ABS BESSY 4.07 10e9/L 12/15/2013 CBC 1340246 ABS LYMPH 1.64 10e9/L 12/15/2013 CBC 2399392 ABS MONO 0.45 10e9/L 12/15/2013 CBC 4916380 ABS EOS 0.21 10e9/L 12/15/2013 CBC 4565722 ABS BASO 0.02 10e9/L 12/15/2013 CBC 3891619 RDW-SD 43.5 fL 12/15/2013 CHEM 14 7230740 AST 19 U/L 12/15/2013 CHEM 14 9136458 ALT 23 IU/L 12/15/2013 CHEM 14 8988047 BUN 23 MG/DL 12/15/2013 CHEM 14 9493193 ALBUMIN 4.7 GM/DL 12/15/2013 CHEM 14 4126135 CHLORIDE 108 MMOL/L 12/15/2013 CHEM 14 7290826 BILI TOT 0.3 MG/DL 12/15/2013 CHEM 14 5911960 ALK PHOS 58 U/L 12/15/2013 CHEM 14 0967406 SODIUM 139 MMOL/L 12/15/2013 CHEM 14 5605499 CREATININE 0.92 MG/DL 12/15/2013 CHEM 14 9509904 CALCIUM 10.0 MG/DL 12/15/2013 CHEM 14 5050029 POTASSIUM 4.0 MMOL/L 12/15/2013 CHEM 14 6022340 PROT TOT 7.1 GM/DL 12/15/2013 CHEM 14 9387023 GLUCOSE 82 MG/DL 12/15/2013 CHEM 14 1216911 BICARB 24 MMOL/L 12/15/2013 CHEM 14 6713927 ANION GAP 7 MEQ/L 12/15/2013 GFR CALC 4716437 GFR AA >60 ML/MIN 12/15/2013 GFR CALC 6440203 GFR NON-AA >60 ML/MIN 12/15/2013 URINALYSIS NONAUTO W/O SCOPE 82113 Specific [place] 1.025 DateTime(Free Text in Aprima) URINALYSIS NONAUTO W/O SCOPE 73916 PH 5 DateTime(Free Text in Apr[employer]) URINALYSIS NONAUTO W/O SCOPE 09455 GLUCOSE neg DateTime( Free Text in [employer]) URINALYSIS NONAUTO W/O SCOPE 60850 Protein neg DateTime( Free Text in [employer]) URINALYSIS NONAUTO W/O SCOPE 87718 Blood neg DateTime(Free Text in [employer]) URINALYSIS NONAUTO W/O SCOPE 03491 Bilirubin neg DateTime(Free Text in [employer]) URINALYSIS NONAUTO W/O SCOPE 73801 Ketones neg DateTime( Free Text in [employer]) URINALYSIS NONAUTO W/O SCOPE 32668 Urobilinogen neg DateTime(Free Text in [employer]) URINALYSIS NONAUTO W/O SCOPE 59239 Nitrite neg DateTime( Free Text in [employer]) URINALYSIS NONAUTO W/O SCOPE 53515 Leukocytes neg DateTime(Free Text in Apr[employer]) Review [...] benign 02/11/2018 None Full Exam - General 1995 Ears/Nose/Throat oral cavity/pharynx/larynx Overall: no masses 02/11/2018 [...] dentition 11/12/2017 None Full Exam - General 1995 [...] vein procedure that will be perform in [place] in May. Full Exam - General 1994 [...] Procedure Codes Date IMMUNIZATION ADMIN CPT -4: 95241 06/05/2018 FLU VAC NO PRSV 4 ZONIA 3 YRS+ CPT-4: 99483 06/05/2018 IMMUNIZATION ADMIN CPT -4: 87639 06/19/2017 FLU VAC NO PRSV 4 ZONIA 3 YRS+ CPT-4: 90342 06/19/2017 URINALYSIS NONAUTO W/O SCOPE CPT-4: 95053 09/08/2015 IMMUNIZATION ADMIN CPT -4: 79613 03/30/2015 ADACEL TDAP VACCINE 7 YRS/> IM CPT-4: 75254 03/30/2015 URINALYSIS NONAUTO W/O SCOPE CPT-4: 01748 03/22/2015 THER/PROPH/DIAG INJ SC/IM CPT-4: 51787 11/11/2014 ROCEPHIN, PER 250 MG CPT-4: J0696 11/11/2014 ROUTINE VENIPUNCTURE CPT-4: 05459 10/15/2014 HgbA1c CPT-4: 45852 10/15/2014 CBC (COMPLETE CBC W/AUTO DIFF WBC) CPT-4: 60908 10/15/2014 CHEM 14 (COMPREHEN METABOLIC PANEL) CPT-4: 51724 10/15/2014 TSH (ASSAY THYROID STIM HORMONE) CPT-4: 53046 10/15/2014 VIT D TOTL (VITAMIN D 25 HYDROXY) CPT-4: 03829 10/15/2014 FREE T4 (ASSAY OF FREE THYROXINE) CPT-4: 40820 10/15/2014 ROUTINE VENIPUNCTURE CPT-4: 90707 06/23/2014 CHEM 14 (COMPREHEN METABOLIC PANEL) CPT-4: 71384 06/23/2014 TSH (ASSAY THYROID STIM HORMONE) CPT-4: 52117 06/23/2014 FREE T4 (ASSAY OF FREE THYROXINE) CPT-4: 97072 06/23/2014 URINALYSIS NONAUTO W/O SCOPE CPT-4: 83475 12/15/2013 ROUTINE VENIPUNCTURE CPT-4: 12046 12/15/2013 THER/PROPH/DIAG INJ SC/IM CPT-4: 38262 11/03/2012 VITAMIN B12 INJECTION CPT-4: J3420 11/03/2012 THER/PROPH/DIAG INJ SC/IM CPT-4: 94772 10/20/2012 VITAMIN B12 INJECTION CPT-4: J3420 10/20/2012 VITAMIN B12 INJECTION CPT-4: J3420 09/11/2012 THER/PROPH/DIAG INJ SC/IM CPT-4: 25240 09/11/2012 THER/PROPH/DIAG INJ SC/IM CPT-4: 39775 08/11/2012 VITAMIN B12 INJECTION CPT-4: J3420 08/11/2012 THER/PROPH/DIAG INJ SC/IM CPT-4: 82602 07/21/2012 VITAMIN B12 INJECTION CPT-4: J3420 07/21/2012 Vital Signs Date Vital 07/08/2018 Blood Pressure 1: 128/70 Code : 8480-6 BMI: 32.4 Code : 47794-5 Heart Rate 1 : 76 bpm Height: 5'6" SpO2: 96% Weight: 201 lbs 02/11/2018 Blood Pressure 1: 122/84 Code : 8480-6 BMI: 32.4 Code : 37918-9 Heart Rate 1 : 71 bpm Height: 5'6" SpO2: 97% Weight: 201 lbs 11/12/2017 Blood Pressure 1: 130/82 Code : 8480-6 BMI: 32.3 Code : 66720-1 Height: 5'6" Weight: 200 lbs 08/20/2017 Blood Pressure 1: 126/78 Code : 8480-6 BMI: 32.3 Code : 06455-8 Heart Rate 1 : 66 bpm Height: 5'6" SpO2: 98% Weight: 200 lbs 06/24/2017 Blood Pressure 1: 134/78 Code : 8480-6 BMI: 34.2 Code : 80168-8 Heart Rate 1 : 71 bpm Height: 5'6" SpO2: 95% Weight: 212 lbs 05/22/2017 Blood Pressure 1: 122/78 Code : 8480-6 BMI: 33.9 Code : 91618-8 Heart Rate 1 : 76 bpm Height: 5'6" SpO2: 97% Weight: 210 lbs 05/10/2017 Blood Pressure 1: 130/84 Code : 8480-6 BMI: 34.1 Code : 81711-2 Heart Rate 1 : 90 bpm Height: 5'6" SpO2: 98% Temperature: 36.9 (C) / 98.5 (F) Weight: 211 lbs 04/08/2017 Blood Pressure 1: 132/78 Code : 8480-6 BMI: 34.4 Code : 47612-3 Heart Rate 1 : 72 bpm Height: 5'6" SpO2: 97% Weight: 213 lbs 02/20/2017 Blood Pressure 1: 130/90 Code : 8480-6 BMI: 33.9 Code : 44066-1 Heart Rate 1 : 74 bpm Height: 5'6" SpO2: 98% Weight: 210 lbs 11/21/2016 Blood Pressure 1: 132/74 Code : 8480-6 BMI: 34.2 Code : 45269-5 Heart Rate 1 : 66 bpm Height: 5'6" SpO2: 97% Weight: 212 lbs 08/29/2016 Blood Pressure 1: 136/82 Code : 8480-6 BMI: 33.7 Code : 51688-8 Heart Rate 1 : 70 bpm Height: 5'6" Respiratory Rate: 18 bpm SpO2: 98% Weight: 209 lbs 07/05/2016 Blood Pressure 1: 142/76 Code : 8480-6 BMI: 33.2 Code : 93159-1 Heart Rate 1 : 73 bpm Height: 5'6" SpO2: 98% Weight: 206 lbs 06/11/2016 Blood Pressure 1: 130/82 Code : 8480-6 BMI: 33.4 Code : 83510-3 Heart Rate 1 : 76 bpm Height: 5'6" SpO2: 97% Weight: 207 lbs 06/04/2016 Blood Pressure 1: 134/80 Code : 8480-6 BMI: 33.4 Code : 57014-8 Heart Rate 1 : 71 bpm Height: 5'6" SpO2: 98% Weight: 207 lbs 04/10/2016 Blood Pressure 1: 124/80 Code : 8480-6 BMI: 34.4 Code : 06958-6 Heart Rate 1 : 76 bpm Height: 5'6" SpO2: 96% Weight: 213 lbs 03/26/2016 Blood Pressure 1: 118/74 Code : 8480-6 BMI: 34.4 Code : 98530-5 Heart Rate 1 : 72 bpm Height: 5'6" SpO2: 98% Weight: 213 lbs 01/23/2016 Blood Pressure 1: 134/76 Code : 8480-6 BMI: 33.7 Code : 07236-1 Heart Rate 1 : 76 bpm Height: 5'6" SpO2: 97% Weight: 209 lbs 12/26/2015 Blood Pressure 1: 116/76 Code : 8480-6 BMI: 33.4 Code : 63187-9 Heart Rate 1 : 78 bpm Height: 5'6" SpO2: 98% Weight: 207 lbs 11/02/2015 Blood Pressure 1: 118/80 Code : 8480-6 BMI: 33.6 Code : 80906-0 Heart Rate 1 : 75 bpm Height: 5'6" SpO2: 95% Weight: 208 lbs 09/13/2015 Blood Pressure 1: 140/82 Code : 8480-6 BMI: 33.6 Code : 19754-0 Heart Rate 1 : 92 bpm Height: 5'6" SpO2: 96% Weight: 208 lbs 09/07/2015 Blood Pressure 1: 140/82 Code : 8480-6 BMI: 33.4 Code : 62796-0 Heart Rate 1 : 85 bpm Height: 5'6" SpO2: 95% Weight: 207 lbs 08/16/2015 Blood Pressure 1: 138/84 Code : 8480-6 BMI: 32.9 Code : 82462-0 Heart Rate 1 : 87 bpm Height: 5'6" SpO2: 97% Weight: 204 lbs 06/13/2015 Blood Pressure 1: 130/82 Code : 8480-6 BMI: 33.1 Code : 78477-5 Heart Rate 1 : 84 bpm Height: 5'6" SpO2: 96% Weight: 205 lbs 05/10/2015 Blood Pressure 1: 118/70 Code : 8480-6 BMI: 32.9 Code : 54953-6 Heart Rate 1 : 77 bpm Height: 5'6" SpO2: 97% Weight: 204 lbs 03/22/2015 Blood Pressure 1: 118/76 Code : 8480-6 BMI: 32.0 Code : 54570-6 Heart Rate 1 : 88 bpm Height: 5'6" Temperature: 36.2 (C) / 97.2 (F) Weight: 198 lbs 01/17/2015 Blood Pressure 1: 120/80 Code : 8480-6 BMI: 32.6 Code : 62557-3 Heart Rate 1 : 88 bpm Height: 5'6" Weight: 202 lbs 11/22/2014 Blood Pressure 1: 118/82 Code : 8480-6 BMI: 31.8 Code : 96632-8 Heart Rate 1 : 72 bpm Height: 5'6" Weight: 197 lbs 10/27/2014 Blood Pressure 1: 130/82 Code : 8480-6 BMI: 32.0 Code : 24781-1 Heart Rate 1 : 86 bpm Height: 5'6" SpO2: 97% Weight: 198 lbs 10/15/2014 Blood Pressure 1: 118/82 Code : 8480-6 BMI: 32.1 Code : 77309-1 Heart Rate 1 : 100 bpm Height: 5'6" Weight: 199 lbs 09/30/2014 Blood Pressure 1: 118/86 Code : 8480-6 BMI: 32.0 Code : 37200-7 Heart Rate 1 : 80 bpm Height: 5'6" Temperature: 35.7 (C) / 96.3 (F) Weight: 198 lbs 07/14/2014 Blood Pressure 1: 116/80 Code : 8480-6 BMI: 32.9 Code : 03951-6 Heart Rate 1 : 80 bpm Height: 5'6" Weight: 204 lbs 06/23/2014 Blood Pressure 1: 128/88 Code : 8480-6 BMI: 33.7 Code : 87384-1 Height: 5'6" Weight: 209 lbs 04/09/2014 Blood Pressure 1: 138/82 Code : 8480-6 Heart Rate 1: 90 bpm SpO2: 97% Temperature: 35.8 (C) / 96.5 (F) Weight: 210 lbs 03/16/2014 Blood Pressure 1: 116/80 Code : 8480-6 BMI: 34.1 Code : 97147-6 Heart Rate 1 : 88 bpm Height: 5'6" Weight: 211 lbs 01/12/2014 Blood Pressure 1: 124/70 Code : 8480-6 BMI: 33.4 Code : 12671-0 Heart Rate 1 : 76 bpm Height: 5'6" Weight: 207 lbs 12/15/2013 Blood Pressure 1: 144/100 Code: 8480-6 Blood Pressure 2: 124/90 Code: 8480-6 Heart Rate 1: 72 bpm Weight: 215 lbs 10/20/2013 Blood Pressure 1: 130/84 Code : 8480-6 BMI: 34.5 Code : 50850-9 Heart Rate 1 : 84 bpm Height: 5'6" Weight: 214 lbs 09/15/2013 Blood Pressure 1: 128/90 Code : 8480-6 BMI: 34.9 Code : 89733-0 Heart Rate 1 : 88 bpm Height: 5'6" Temperature: 36.5 (C) / 97.7 (F) Weight: 216 lbs 07/27/2013 Blood Pressure 1: 138/90 Code : 8480-6 BMI: 34.4 Code : 96814-4 Heart Rate 1 : 88 bpm Height: 5'6" Weight: 213 lbs 06/09/2013 Blood Pressure 1: 138/92 Code : 8480-6 Heart Rate 1: 88 bpm Weight: 04/20/2013 Blood Pressure 1: 142/92 Code : 8480-6 BMI: 34.4 Code : 44712-7 Heart Rate 1 : 88 bpm Height: 5'6" Weight: 213 lbs 03/23/2013 Blood Pressure 1: 116/84 Code : 8480-6 BMI: 34.1 Code : 81393-8 Heart Rate 1 : 76 bpm Height: 5'6" Weight: 211 lbs 01/21/2013 Blood Pressure 1: 130/88 Code : 8480-6 BMI: 34.5 Code : 82205-1 Heart Rate 1 : 80 bpm Height: 5'6" Weight: 214 lbs 12/25/2012 Blood Pressure 1: 112/70 Code : 8480-6 Heart Rate 1: 84 bpm Respiratory Rate : 20 bpm Weight: 214 lbs 8 10/20/2012 Blood Pressure 1: 124/80 Code : 8480-6 BMI: 34.4 Code : 37427-7 Heart Rate 1 : 84 bpm Height: 5'6" Temperature: 36.7 (C) / 98.0 (F) Weight: 213 lbs 08/11/2012 Blood Pressure 1: 116/80 Code : 8480-6 BMI: 33.9 Code : 03779-6 Heart Rate 1 : 76 bpm Height: 5'6" Respiratory Rate: 20 bpm Weight: 210 lbs 07/10/2012 Blood Pressure 1: 110/76 Code : 8480-6 BMI: 46.5 Code : 59652-4 Heart Rate 1 : 84 bpm Height: 4'8" Respiratory Rate: 20 bpm Weight: 207 lbs 8 oz Functional Status No Functional Status data History of Present Illness Symptom Name Status Result Effective Date Notes depression Quality intermittent 07/08/2018 None depression Onset [...] of Symptom _ weeks ago 09/30/2014 around [facility] neck pain Location in the lower cervical/ [...] 08/11/2012 None gait abnormality Onset of Symptom 112 years ago 08/11/[address] Villaseñor- last [...] data Encounters Encounter Performer Location Codes Date ([id number]) 99997 EST. PATIENT, LEVEL IV Diagnosis: Essential (primary) hypertension[ICD10: I10] Diagnosis: Major depressive disorder, recurrent, moderate[ICD10: F33.1] Diagnosis: Generalized anxiety disorder[ICD10: F41.1] [facility] CPT-4: 10346 07/08/2018 ([id number]) 88942 EST. PATIENT, LEVEL IV Diagnosis: Nontoxic multinodular goiter[ICD10: E04.2] Diagnosis: Mixed hyperlipidemia[ICD10: E78.2] Diagnosis: Essential (primary) hypertension[ICD10: I10] [facility] CPT-4: 44090 02/11/2018 ([id number]) 35717 EST. PATIENT, LEVEL IV Diagnosis: Nontoxic multinodular goiter[ICD10: E04.2] Diagnosis: Essential (primary) hypertension[ICD10: I10] Diagnosis: Other fatigue[ICD10: R53.83] [facility] CPT- 4: 66854 11/12/2017 ([id number]) 09324 EST. PATIENT, LEVEL IV Diagnosis: Nontoxic multinodular goiter[ICD10: E04.2] Diagnosis: Major depressive disorder, recurrent, moderate[ICD10: F33.1] Diagnosis: Generalized anxiety disorder[ICD10: F41.1] Diagnosis: Essential (primary) hypertension[ICD10: I10] Caty Ledesma MD, [facility] CPT-4: 61043 08/20/2017 ([id number]) 17502 EST. PATIENT, LEVEL III Diagnosis: Acute recurrent maxillary sinusitis[ICD10: J01.01] Diagnosis: Encounter for other preprocedural examination[ICD10: Z01.818] Mira Ledesma MD, [facility] CPT-4: 79289 06/24/2017 ([id number]) 64913 EST. PATIENT, LEVEL IV Diagnosis: Acute recurrent frontal sinusitis[ICD10: J01.11] Diagnosis: Type 2 diabetes mellitus without complications[ICD10: E11.9] Diagnosis: Essential (primary) hypertension[ICD10: I10] Caty Ledesma MD, [facility] CPT-4: 03007 05/22/2017 ([id number]) 74470 EST. PATIENT, LEVEL III Diagnosis: Acute recurrent maxillary sinusitis[ICD10: J01.01] Diagnosis: Cough[ICD10: R05] Mira Ledesma MD, [facility] CPT-4: 37003 05/10/2017 ([id number]) 27001 EST. PATIENT, LEVEL IV Diagnosis: Generalized anxiety disorder[ICD10: F41.1] Diagnosis: Muscle weakness (generalized)[ICD10: M62.81] Diagnosis: Somnolence[ICD10: R40.0] Diagnosis: Snoring[ICD10: R06.83] Caty Ledesma MD, [facility] CPT-4: 88615 04/08/2017 ([id number]) 98536 EST. PATIENT, LEVEL IV Diagnosis: Vitamin deficiency, unspecified[ICD10: E56.9] Diagnosis: Major depressive disorder, recurrent, moderate[ICD10: F33.1] Diagnosis: Generalized anxiety disorder[ICD10: F41.1] Diagnosis: Impaired fasting glucose[ICD10: R73.01] Diagnosis: Chronic migraine without aura, not intractable, without status migrainosus[ICD10: G43.709] Diagnosis: Essential (primary) hypertension[ICD10: I10] Diagnosis: Mixed hyperlipidemia[ICD10: E78.2] Diagnosis: Nontoxic multinodular goiter[ICD10: E04.2] Caty Ledesma MD, [facility] CPT-4: 00966 02/20/2017 ([id number]) 85084 EST. PATIENT, LEVEL IV Diagnosis: Generalized anxiety disorder[ICD10: F41.1] Diagnosis: Major depressive disorder, recurrent, moderate[ICD10: F33.1] Diagnosis: Chronic pain syndrome[ICD10: G89.4] Diagnosis: Other specified polyneuropathies[ICD10: G62.89] Diagnosis: Muscle weakness (generalized)[ICD10: M62.81] Diagnosis: Essential (primary) hypertension[ICD10: I10] Caty Ledesma MD, [facility] CPT-4: 95152 11/21/2016 ([id number]) 21843 EST. PATIENT, LEVEL III Diagnosis: Generalized abdominal pain[ICD10: R10.84] Diagnosis: Essential (primary) hypertension[ICD10: I10] Caty Ledesma MD, [facility] CPT-4: 11468 08/29/2016 ([id number]) 88361 EST. PATIENT, LEVEL III Diagnosis: Epigastric pain[ICD10: R10.13] Caty Ledesma MD, [facility] CPT- 4: 54712 07/05/2016 ([id number]) 13026 EST. PATIENT, LEVEL III Diagnosis: Toxic gastroenteritis and colitis[ICD10: K52.1] Caty Ledesma MD, [facility] CPT-4: 46818 06/11/2016 98917 EST. PATIENT, LEVEL III Diagnosis: Left upper quadrant pain[ICD10: R10.12] Estrella Ledesma MD, [facility] CPT-4: 04042 06/04/2016 ([id number]) 93676 EST. PATIENT, LEVEL III Diagnosis: Cellulitis of left toe[ICD10: L03.032] Mira Ledesma MD, [facility] CPT-4: 84148 04/10/2016 ([id number]) 29272 EST. PATIENT, LEVEL III Diagnosis: Essential (primary) hypertension[ICD10: I10] Diagnosis: Chronic pain syndrome[ICD10: G89.4] Diagnosis: Other fatigue[ICD10: R53.83] Caty Ledesma MD [facility] CPT- 4: 88026 03/26/2016 ([id number]) 10184 EST. PATIENT, LEVEL III Diagnosis: Gastro-esophageal reflux disease without esophagitis[ICD10: K21.9] Caty Ledesma MD [facility] CPT-4: 69705 01/23/2016 ([id number]) 87718 EST. PATIENT, LEVEL IV Diagnosis: Type 2 diabetes mellitus without complications[ICD10: E11.9] Diagnosis: Gastro-esophageal reflux disease without esophagitis[ICD10: K21.9] Diagnosis: Functional diarrhea[ICD10: K59.1] Caty Ledesma MD [facility] CPT-4: 44896 12/26/2015 57401 EST. PATIENT, LEVEL IV Diagnosis: Other seasonal allergic rhinitis[ICD10: J30.2] Diagnosis: Acute recurrent maxillary sinusitis[ICD10: J01.01] Diagnosis: Cough[ICD10: R05] Estrella Ledesma MD, [facility] CPT-4: 31890 11/02/2015 61113 EST. PATIENT, LEVEL III Diagnosis: Acute recurrent maxillary sinusitis[ICD10: J01.01] Diagnosis: Urgency of urination[ICD10: R39.15] Diagnosis: Cough[ICD10: R05] Diagnosis: Acute laryngopharyngitis[ICD10: J06.0] Estrella Ledesma MD, [facility] CPT-4: 33056 09/13/2015 62548 EST. PATIENT, LEVEL IV Diagnosis: Pain in left lower leg[ICD10: M79.662] Diagnosis: Cramp and spasm[ICD10: R25.2] Diagnosis: Acute nasopharyngitis [common cold][ICD10: J00] Estrella Ledesma MD, [facility] CPT-4: 42570 09/07/2015 ([id number]) 79911 EST. PATIENT, LEVEL IV Diagnosis: Essential (primary) hypertension[ICD10: I10] Diagnosis: Type 2 diabetes mellitus without complications[ICD10: E11.9] Diagnosis: Varicose veins of unspecified lower extremities with other complications[ICD10: I83.899] Caty Ledesma MD, [facility] CPT-4: 56561 08/16/2015 ([id number]) 39106 EST. PATIENT, LEVEL IV Diagnosis: Type 2 diabetes mellitus without complications[ICD10: E11.9] Diagnosis: Other mixed anxiety disorders[ICD10: F41.3] Diagnosis: Vitamin deficiency, unspecified[ICD10: E56.9] Diagnosis: Essential (primary) hypertension[ICD10: I10] Caty Ledesma MD, [facility] CPT-4: 99514 06/13/2015 ([id number]) 66380 EST. PATIENT, LEVEL IV Diagnosis: ESSENTIAL HYPERTENSION[ICD9: 401.9] Diagnosis: CHRONIC PAIN SYNDROME[ICD9: 338.4] Caty Ledesma MD [facility] CPT-4: 32624 05/10/2015 ([id number]) 76953 EST. PATIENT, LEVEL III Diagnosis: Back pain[ICD9: 724.5] Diagnosis: URINARY FREQUENCY[ICD9: 788.41] Caty Ledesma MD, [facility] CPT- 4: 66461 03/22/2015 ([id number]) 12486 EST. PATIENT, LEVEL IV Diagnosis: ESSENTIAL HYPERTENSION[ICD9: 401.9] Diagnosis: DIABETES TYPE II[ICD9: 250.00] Diagnosis: Varicose vein[ICD9: 454.9] Caty Ledesma MD [facility] CPT- 4: 02167 01/17/2015 ([id number]) 79938 EST. PATIENT, LEVEL IV Diagnosis: HEADACHE[ICD9: 784.0] Diagnosis: Neck pain[ICD9: 723.1] Diagnosis: Vision changes[ICD9: 368.9] Diagnosis: Nausea[ICD9: 787.02] Mira Ledesma MD, [facility] CPT-4: 81906 11/22/2014 ([id number]) 93040 EST. PATIENT, LEVEL I Diagnosis: Meningitis exposure[ICD9: V01.89] Caty Ledesma MD [facility] CPT-4: 85291 11/11/2014 ([id number]) 59236 EST. PATIENT, LEVEL IV Diagnosis: Elevated blood sugar[ICD9: 790.29] Diagnosis: ESSENTIAL HYPERTENSION[ICD9: 401.9] Caty Ledesma MD [facility] CPT-4: 65881 10/27/2014 ([id number]) 29939 EST. PATIENT, LEVEL IV Diagnosis: Costochondritis[ICD9: 733.6] Diagnosis: ALLERGIC RHINITIS[ICD9: 477.9] Diagnosis: Vitamin D deficiency[ICD9: 268.9] Diagnosis: Elevated blood sugar[ICD9: 790.29] Mira Ledesma MD [facility] CPT-4: 07007 10/15/2014 ([id number]) 80096 EST. PATIENT, LEVEL IV Diagnosis: ESSENTIAL HYPERTENSION[ICD9: 401.9] Diagnosis: Diarrhea[ICD9: 787.91] Caty Ledesma MD [facility] CPT-4: 89012 09/30/2014 ([id number]) 58356 EST. PATIENT, LEVEL IV Diagnosis: Raynauds disease[ICD9: 443.0] Diagnosis: Nausea[ICD9: 787.02] Diagnosis: ESSENTIAL HYPERTENSION[ICD9: 401.9] Caty Ledesma MD, [facility] CPT-4: 92682 07/14/2014 ([id number]) 42033 EST. PATIENT, LEVEL IV Diagnosis: ESSENTIAL HYPERTENSION[ICD9: 401.9] Diagnosis: Esophageal reflux[ICD9: 530.81] Diagnosis: Hyponatremia[ICD9: 276.1] Diagnosis: OBESITY[ICD9: 278.00] Diagnosis: Chronic migraine[ICD9: 346.70] Caty Ledesma MD [facility] CPT- 4: 66656 06/23/2014 ([id number]) 84389 EST. PATIENT, LEVEL IV Diagnosis: ESSENTIAL HYPERTENSION[ICD9: 401.9] Diagnosis: GERD (gastroesophageal reflux disease)[ICD9: 530.81] Diagnosis: Costochondritis[ICD9: 733.6] Mira Ledesma MD [facility] CPT-4: 94187 04/09/2014 ([id number]) 89544 EST. PATIENT, LEVEL IV Diagnosis: ESSENTIAL HYPERTENSION[ICD9: 401.9] Diagnosis: RAYNAUD'S SYNDROME[ICD9: 443.0] Caty Ledesma MD [facility] CPT- 4: 42302 03/16/2014 ([id number]) 37217 EST. PATIENT, LEVEL III Diagnosis: ESSENTIAL HYPERTENSION[SNOMED: 61640287] Diagnosis: ALLERGIC RHINITIS[ICD9: 477.9] Diagnosis: Knee pain[ICD9: 719.46] Caty Ledesma MD [facility] CPT-4: 01098 01/12/2014 ([id number]) 53545 EST. PATIENT, LEVEL IV Diagnosis: ALLERGIC RHINITIS[ICD9: 477.9] Diagnosis: ESSENTIAL HYPERTENSION[SNOMED: 53528869] Diagnosis: Fatigue[ICD9: 780.79] Caty Ledesma MD [facility] CPT-4: 16062 12/15/2013 ([id number]) 61041 EST. PATIENT, LEVEL III Diagnosis: ESSENTIAL HYPERTENSION[SNOMED: 99009009] Diagnosis: Skin lesion[ICD9: 709.9] Diagnosis: Raynauds disease[ICD9: 443.0] Caty Ledesma MD [facility] CPT- 4: 99506 10/20/2013 ([id number]) 59973 EST. PATIENT, LEVEL III Diagnosis: ACUTE SINUSITIS[ICD9: 461.9] Caty Ledesma MD [facility] CPT- 4: 90770 09/15/2013 ([id number]) 70039 EST. PATIENT, LEVEL IV Diagnosis: ESSENTIAL HYPERTENSION[SNOMED: 96519242] Diagnosis: Peripheral neuropathy[ICD9: 356.9] Diagnosis: Vitamin D deficiency[ICD9: 268.9] Diagnosis: Vitamin B12 deficiency[ICD9: 266.2] Caty Ledesma MD [facility] CPT-4: 31760 07/27/2013 ([id number]) 55614 EST. PATIENT, LEVEL III Diagnosis: ACUTE SINUSITIS[ICD9: 461.9] Diagnosis: COUGH[ICD9: 786.2] Mira Ledesma MD, [facility] CPT-4: 72760 06/09/2013 71384 EST. PATIENT, LEVEL IV Diagnosis: HEADACHE[ICD9: 784.0] Diagnosis: Dysphagia[ICD9: 787.20] Diagnosis: Esophageal reflux[ICD9: 530.81] Caty Ledesma MD, [facility] CPT- 4: 68715 04/20/2013 ([id number]) 00498 EST. PATIENT, LEVEL IV Diagnosis: Seasonal allergic rhinitis[ICD9: 477.9] Diagnosis: HEADACHE[ICD9: 784.0] Diagnosis: ESSENTIAL HYPERTENSION[SNOMED: 21081606] Caty Ledesma MD, [facility] CPT-4: 18318 03/23/[id number]) 86018 EST. PATIENT, LEVEL III Diagnosis: ABNORMALITY OF GAIT[ICD9: 781.2] Diagnosis: B-COMPLEX DEFIC NEC[ICD9: 266.2] Caty Ledesma MD, [facility] CPT-4: 92356 01/21/2013 [id number]) 39339 EST. PATIENT, LEVEL IV Diagnosis: ESSENTIAL HYPERTENSION[SNOMED: 56443980] Diagnosis: Breast pain[ICD9: 611.71] Caty Ledesma MD, [facility] CPT-4: 28779 12/25/[id number]) 47449 EST. PATIENT, LEVEL III Diagnosis: ESSENTIAL HYPERTENSION[SNOMED: 04135322] Diagnosis: ACUTE URI[ICD9: 465.9] Caty Ledesma MD, [facility] CPT-4: 72076 10/20/2012 [id number]) 11375 EST. PATIENT, LEVEL IV Diagnosis: B-COMPLEX DEFIC NEC[ICD9: 266.2] Diagnosis: ESSENTIAL HYPERTENSION[SNOMED: 99104886] Diagnosis: Gait instability[ICD9: 781.2] Diagnosis: Back pain[ICD9: 724.5] [facility] CPT-4: 80673 08/11/2012 OFFICE VISIT, NEW - LEVEL 4 Diagnosis: ESSENTIAL HYPERTENSION[SNOMED: 81657746] Diagnosis: ACUTE SINUSITIS[ICD9: 461.9] Diagnosis: Gait instability[ICD9: 781.2] Diagnosis: Weakness of both legs[ICD9: 729.89] [facility] CPT-4: 09464 07/10/2012 Plan of Care Planned Activity Notes Codes Status Date Patient Education: Patient Medication Summary Completed 07/09/2018 Care Plan: SCREENINGMAMMOGRAPHYDIGITAL LOINC : 39981-8 Pending 07/09/2018 Visit Plan: Hypertension - well [...] dosing. 07/08/2018 Appointment[phone] [facility] ([facility] min) Moderate 07/08/2018 Patient Education: Patient [...] medications. 02/11/2018 Appointment: [phone] [facility] [place] (15 min) Moderate 02/11/2018 Patient Education: [...] daily. 11/12/2017 Appointment: Caty Ledesma WPtel: [phone] [facility] [place] (15 min) Moderate 11/12/2017 Patient Education: [...] well. 08/20/2017 Appointment: Caty Ledesma WPtel: [phone] [facility] [place] (15 min) Moderate 08/20/2017 Patient Education: [...] Weaver 06/24/2017 Appointment: Mira Valladares WPtel: [phone] [phone] [place] (30 min) Complex 06/24/2017 Patient Education: [...] controlled. 05/22/2017 Appointment: Caty Ledesma WPtel: [phone] [facility] (15 min) Moderate 05/22/2017 Patient Education: Patient Medication Summary Completed 05/22/2017 Visit Plan: Sinusitis - Pt has acute infection - pain in face, maxillary region, Pt informed to use decongestant, RX given to patient, sinus rinses also recommended. Call if symptoms do not show improvement. 05/10/2017 Appointment: [phone] [place] (15 min) Moderate 05/10/2017 Patient Education: [...] scale. 04/08/2017 Appointment: [facility] Led[phone] [facility] (15 min) Moderate 04/08/2017 Patient Education: Patient [...] thyroid ultrasound. 02/20/2017 Appointment: [facility] Led[facility]ma [facility]el[phone] [facility] [place] (30 min) Complex 02/20/2017 Patient Education: [...] my patient. 11/21/2016 Appointment: Caty Ledesma WPtel: [facility] [place] (15 min) Moderate 11/21/2016 Patient Education: [...] not improving. 08/29/2016 Appointment: [facility] Ledesma [facility]Ptel[facility] [address] [facility] (30 min) Complex 08/29/2016 Patient Education: Patient Medication Summary Completed 08/29/2016 Patient Education: Hypertension Completed 08/29/2016 Visit Plan: referral to dr. aburto for cysts of right abdomen near ribs 07/05/2016 Appointment: Caty Ledesma WPtel: [facility] (15 min) Moderate 07/05/2016 Patient Education: Patient [...] stomach pain. 06/04/2016 Appointment: Est[facility]ynum [facility]Ptel[phone] [facility] (15 min) Moderate 06/04/2016 Patient Education: [...] of plan. 04/10/2016 Appointment: Mira Valladares WPtel[facility] [phone] [phone] (30 min) Complex 04/10/2016 Patient Education: [...] 12/26/2015 Care Plan: Referral Order SNOMED-CT : [id number] Pending 12/26/2015 Appointment: Caty Ledesma WPtel: [facility] [place] (15 min) Moderate 12/19/2015 Visit Plan: [...] to keep appt with Dr. Kwon in [place] for treatment of varicose veins. 08/16/2015 Patient [...] over-medication. 05/10/2015 Appointment: Caty Ledesma WPtel: [address] [place], [place] [address] Follow up 05/10/2015 Patient Education: Patient Medication [...] veins - referral to Vascular team from [facility] 01/17/2015 Appointment: [facility] Led[facility]ma [facility]Ptel[phone] [facility] Follow [facility] 01/17/2015 Patient Education: Patient Medication Summary Completed 01/17/2015 Patient Education: Hypertension Completed 01/17/2015 Care Plan: Referral Order referral to [facility] for varicose veins - need to see if the patient can have her ultrasound studies HERE with [employer] SNOMED-CT : [id number] Ordered 01/17/2015 Appointment: [facility] Led[facility]ma [facility]Ptel[phone] [facility] [place] Follow up 01/04/2015 Visit Plan: Worsening mcuzcaxu-axzrrj-ghod injury 1 week ago-recommend CT head due [...] weeks. 10/27/2014 Appointment: Caty Ledesma WPtel: [address] [place] [address] Follow up 10/27/2014 Patient Education: Patient Medication [...] the nasal steroid allergy spray. Elevated blood payipn-dnalrzban-rfrmov-check Hgb A1c as well as TSH Vitamin D deficiency-check vitamin D level 10/15/2014 Appointment: Follow up 10/15/2014 Patient Education: Patient Medication Summary Completed 10/15/2014 Care Plan: TSH Pending 10/15/2014 Care Plan: A1C HPLC [facility] : 24981-8 Pending 10/15/2014 Care Plan: VIT D MARIZAL Pending 10/15/2014 Visit Plan: Hypertension - well [...] stomach pain. 09/30/2014 Appointment: Caty Ledesma WPtel: [address] [place], [place] [phone] Follow up 09/30/2014 Patient Education: Patient Medication Summary Completed 09/30/2014 Patient Education: Hypertension Completed 09/30/2014 Appointment: Caty Ledesma WPtel: [address] [place], [place] [phone] Follow up 09/29/2014 Visit Plan: Nausea - [...] at home. 07/14/2014 Appointment: Caty Ledesma WPtel: [facility] Follow up 07/14/2014 Patient Education: Patient Medication [...] labs. 06/23/2014 Appointment: [facility] Led[facility]ma [facility]Ptel[phone] [facility] Follow up 06/23/2014 Patient Education: Patient Medication [...] are worsening. 03/16/2014 Appointment: Caty Ledesma WPtel: [facility] Follow up 03/16/2014 Patient Education: Patient Medication [...] spray. 01/12/2014 Appointment: Cat[facility] Ledesma [facility]Ptel[facility] [phone] [facility] Follow up 01/12/2014 Patient Education: Patient Medication [...] labs 12/15/2013 Appointment: Mira Valladares WPtel[phone] [phone] Follow up 12/15/2013 Patient Education: Patient Medication [...] - on scalp - referral to her lsw - Dr. Teran. Recommended pt to call for appt. Raynaud - very mild case - pt to continue with norvasc, monitor symptoms, keep hands warm, call if symptoms worsen, if fingers turn and stay persistently purple, will consider topical treatments versus increase in norvasc. 10/20/2013 Appointment: Caty Ledesma WPtel: [facility] Follow up 10/20/2013 Patient Education: Patient Medication Summary Completed 10/20/2013 Patient Education: Hypertension Completed 10/20/2013 Visit Plan: Sinusitis - Pt has acute infection - pain in face, maxillary region, Pt informed to use decongestant, RX given to patient, sinus rinses also recommended. Call if symptoms do not show improvement. 09/15/2013 Appointment: Cat[facility] Ledesma [facility]Ptel[phone] [facility] Sick 09/15/2013 Patient Education: Patient Medication Summary [...] tolerance test. 07/27/2013 Appointment: Caty Ledesma WPtel: [facility] Follow up 07/27/2013 Patient Education: Patient Medication Summary Completed 07/27/2013 Patient Education: Hypertension Completed 07/27/2013 Visit Plan: Sinusitis - Pt has acute infection - pain in face, maxillary region, Pt informed to use decongestant, RX given to patient, sinus rinses also recommended. Call if symptoms do not show improvement. 06/09/2013 Appointment: Mira Valladares WPtel: [phone] Sick 06/09/2013 Patient Education: Patient Medication [...] and pepcid 04/20/2013 Appointment: Mira Valladares WPtel: [phone] Other 04/20/2013 Patient Education: Patient Medication [...] at home. 03/23/2013 Appointment: Caty Ledesma WPtel: [address] [place] [address] Follow up 03/23/2013 Patient Education: Patient Medication Summary Completed 03/23/2013 Patient Education: Hypertension Completed 03/23/2013 Visit Plan: Gait abnormality with falling at home and hitting head - suspect concussion - recommend that Stephanie see Jose Luis at [facility] for balance and gait training. B12 deficiency - improved with b12 shots, will have patient go back to every 2 week injections instead of weekly injections. 01/21/2013 Appointment: Caty Ledesma WPtel: [facility] [place] Follow up 01/21/2013 Patient Education: Patient [...] have mammo. 12/25/2012 Appointment: Caty Ledesma WPtel: [facility] Follow up 12/25/2012 Patient Education: Patient Medication [...] clinic today. 10/20/2012 Appointment: Caty Ledesma WPtel: [facility] Follow up 10/20/2012 Patient Education: Patient Medication Summary Completed 10/20/2012 Patient Education: Hypertension Completed 10/20/2012 Appointment: Cat[facility] Ledesma WPtel[phone] [facility] [place] Injection 09/11/2012 Patient Education: Patient Medication Summary Completed 09/11/2012 Appointment: Caty Ledesma WPtel: [address] [place] [address] [place] Injection 08/18/2012 Visit Plan: Hypertension - [...] a surgeon. 08/11/2012 Appointment: Caty Ledesma WPtel: [facility] Follow up 08/11/2012 Patient Education: Patient Medication Summary Completed 08/11/2012 Patient Education: Hypertension Completed 08/11/2012 Appointment: Caty Ledesma WPtel: 101 [facility] [place] Injection 07/21/2012 Patient Education: Patient Medication [...] d level. 07/10/2012 Appointment: Mira Valladares WPtel[phone] [phone] [place] New Patient 07/10/2012 Patient Education: Patient Medication Summary Completed 07/10/2012 Patient Education: High Blood Pressure: Essential Hypertension Completed 2011 Referral: Blaise Aburto Info. faxed Completed Referral: Blaise Aburto Referral Appointment Requested Referral: [facility], - Referral Appointment Requested Instructions [...] are not improving. Restart carafate and pepcid Aleve twice daily x 10 days . [...] the nasal steroid allergy spray. Elevated blood pxiueu-eokzyoxab-mmooeq-check Hgb A1c as well as TSH Vitamin [...] if you tolerate the previously decreased dosing. change the pristiq to night-time . Fatigue - daytime - recommended sleep study, change pristiq to night-time dosing. Sleep study to be scheduled - RX for sleep study sent to hospital. - pt has significant sleepiness during the day - she had a score of 17 on epiworth sleepiness scale. . Worsening efefjegz-laiulb-wfto injury 1 week ago- recommend CT head [...] of stomach upset or stomach pain. . pt has been informed of signs and symptoms to watch for with her potential exposure to meningitis, pt's questions about symptoms were answered, pt has chronic allergy symptoms pt to start on probiotic - like [...] has declined to see a surgeon. . URI - Pt advised to increase [...] diet, call if symptoms not improving. . Paronychia-left great toe-culture of toe today in the office-use bactroban ointment as directed-call if symptoms do not resolve or if any worse. Patient verbalized understanding of plan. . Paronychia-left great toe-culture of toe today in the office-use bactroban ointment as directed-call if symptoms do not resolve or if any worse. Patient verbalized understanding of plan. . Sinusitis - Pt has acute infection [...] to assure normal liver response to medications. We will check labs and X-Ray today. Continue to take Naproxen as needed for low back pain. Further plan pending results of labs and x -ray. . Frequent Urination with mid to lower back pain- UA negative. Will check labs and KUB X-Ray today. Recommend increase water intake and avoid caffeine. Further plan pending labs and radiology results. . Hypertension - well controlled - continue [...] to keep appt with Dr. Kwon in [place] for treatment of varicose veins. . Sinusitis - Pt has acute infection - pain in face, maxillary region, Pt informed to use decongestant, RX given to patient, sinus rinses also recommended. Call if symptoms do not show improvement. Patient medically cleared for surgery with Dr Weaver continue mucinex and zyrte add flonase if needed . Sinusitis - Pt has acute infection - pain in face, maxillary region, Pt informed to use decongestant, RX given to patient, sinus rinses also recommended. Call if symptoms do not show improvement. EKG, Chest xray, CBC, CMP, cardiac analyzers [...] veins - referral to Vascular team from [facility] Nasal spray- use twice daily, one spray [...] concussion - recommend that Stephanie Amaya at [facility] for balance and gait training. [...] - on scalp - referral to her lsw - Dr. Teran. Recommended pt to call [...]
--- NOTE | 2019-01-07 08:38 | Cardiac Procedure Note-CS/ASA ---
Pre-Procedure Note Pre-Op Procedure Note H&P Reviewed The H&P was reviewed, patient examined and no changes noted. Date H&P Reviewed: January 07, 2019 Time H&P Reviewed: 08:37 Conscious Sedation Pre-Proced Time 08:37 ASA Score 3 For ASA 3 and 4: Consider anesthesia and medical clearance. Also, for patients with a history of failed moderate sedation consider anesthesia. Airway Lungs Heart ASA score ASA 1: a normal healthy patient ASA 2: a patient with a mild systemic disease (mid diabetes, controlled hypertension, obesity x ASA 3: a patient with a severe systemic disease that limits activity (angina , COPD, prior Myocardial infarction) ASA 4: a patient with an incapacitating disease that is a constant threat to life (CHF, renal failure) ASA 5: a moribund patient not expected to survive 24 hrs. (ruptured aneurysm) ASA 6: a declared brain- patient whose organs are being harvested. For emergent operations, add the letter E after the classification Mallampati Classification Grade 3 Sedation Plan Analgesia, Amnesia, Plan communicated to team members, Discussed options with patient/fam, Discussed risks with patient/fam The patient is an appropriate candidate to undergo the planned procedure, sedation, and anesthesia. The patient immediately re-assessed prior to indication. ALANNA SWAIN MD January 07, 2019 08:37
--- OUTSIDE RECORDS SUMMARY | 2019-01-07 08:44 | XMS REPORT | CCD ---
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 Name Role Phone PP Unavailable CCM Unavailable Summary Purpose Interface Exchange Insurance Providers Payer name Policy type / Coverage type Covered democrat ID Effective Begin Date Effective End Date [facility] Commercial Insurance [id number] 2013 Unknown WPS Medicare Part B Commercial Insurance [id number] 2013 Unknown Family history Daughter Diagnosis Age [...] status Unknown 03/26/[address]: 2170648 Former smoker quit 1979 03/26/2016 Number of children Unknown 3 07/10/[address]: 147340585 Never drinks alcohol 07/10/2012 Has the patient ever used illegal drugs? Unknown Has never used illegal drugs 07/10/2012 Allergies, Adverse Reactions, Alerts Substance Reaction Codes Entered Date Inactivated Date Status cymbalta RxNorm: 375124 07/14/2012 No Inactive Date Active Savella nausea RxNorm: 872453 07/14/2012 No Inactive Date Active Metanx nausea RxNorm: 921791 07/14/2012 No Inactive Date Active Gluten Unknown 07/10/2012 No Inactive Date Active Peanuts Unknown 07/10/2012 No Inactive Date Active Levaquin hives RxNorm: 42698 07/14/2012 No Inactive Date Active macrobid pruritis, hives, RxNorm: 857101 07/14/2012 No Inactive Date Active percocet pruritis RxNorm: 160165 07/14/2012 No Inactive Date Active PREDNISONE pruritis, RxNorm: 8640 07/14/2012 No Inactive Date Active ultram pruritis, hives RxNorm: 32233 06/11/2016 No Inactive Date Active GABAPENTIN nausea, [...] Date Stop Date Status Fill Instructions Pristiq 100 mg tablet,extended release RxNorm: 726812 1 Tablet(s) PO daily 07/08/2018 02/02/2019 Active Fish Oil 1,000 mg capsule RxNorm: 1 Capsule(s) PO TID 201707/02/2019 Active Valium 5 mg tablet RxNorm: 919005 1 Tablet(s) PO PRN as needed 07/08/2018 No Stop Date Active Vagifem 10 mcg vaginal tablet RxNorm: 270238 1 Tablet(s) VAG daily 07/08/2018 No Stop Date Active naproxen sodium 550 mg tablet RxNorm: 221304 Tablet(s) as needed TAKE 1 TABLET BY MOUTH TWO TIMES DAILY 07/08/20182018 Active - Ref: [id number] Voltaren 1 % topical gel RxNorm: 854515 APPLY 2 GRAMS TOPICALLY FOUR TIMES A DAY 07/08/2018 11/08/2018 Active topiramate 100 mg tablet RxNorm: 944447 1 Tablet(s) PO BID 02/02/2019 Active [SAVINGS FOR UNINSURED PATIENTS -- BIN:523927, PCN: ASPROD1, Group: [id number], ID# [id number], Process claim through [employer], for questions: . THIS IS NOT INSURANCE.] Valium 5 mg tablet RxNorm: 109367 1 Tablet(s) PO PRN as needed 06/24/2018 07/07/2018 Inactive folic acid 1 mg tablet RxNorm: 508053 TAKE ONE TABLET BY MOUTH EVERY DAY 05/27/2018 04/21/2019 Active Valium 5 mg tablet RxNorm: 513434 1 Tablet(s) PO PRN as needed 02/21/2018 No Stop Date Active Valium 5 mg tablet RxNorm: 273393 1 Tablet(s) PO PRN as needed 11/12/2017 02/20/2018 Inactive Synthroid 25 mcg tablet RxNorm: 350810 1 Tablet(s) PO daily 02/201811/11/2017 Inactive Synthroid 25 mcg tablet RxNorm: 934589 1 Tablet(s) PO daily 02/201802/10/2018 Inactive Nitro-Bid 2 % transdermal ointment RxNorm: 893252 APPLY TO AFFECTED AREA(S) TOPICALLY THREE TIMES A DAY NEEDED FOR RAYNAUDS SYMPTOMS OF FEET 08/26/2017 10/24/2017 Inactive Vitamin B-12 1,000 mcg/mL injection solution RxNorm: 737255 INJECT 1ML INTRAMUSCULARLY ONCE WEEKLY 08/23/2017 Inactive Request already responded to by other means (e.g. phone or fax) Vitamin B-12 1,000 mcg/mL injection solution RxNorm: 040021 Milliliter(s) INJECT 1ML INTRAMUSCULARLY ONCE WEEKLY 08/21/2017 08/22/2017 Inactive naproxen sodium 550 mg tablet RxNorm: 774130 TAKE 1 TABLET BY MOUTH TWO TIMES DAILY 08/09/2017 11/06/2017 Inactive - Ref: [id number] Combivent Respimat 20 mcg-100 mcg/actuation solution for inhalation RxNorm: 6543422 1-2 Puff(s) INH Q4 PRN 07/26/2017 No Stop Date Active Valium 5 mg tablet RxNorm: 563687 1 Tablet(s) PO PRN as needed 06/27/2017 11/11/2017 Inactive doxycycline hyclate 100 mg tablet RxNorm: 386890 1 Tablet(s) PO BID 06/24/2017 06/30/2017 Inactive azithromycin 250 mg tablet RxNorm: 763075 1 Tablet(s) PO UD 2 tabs on day #1, then 1 pill daily x 4 more days 05/22/2017 08/20/2017 Inactive hydrocodone 10 mg-chlorpheniramine 8 mg/5 mL oral susp extend.rel 12hr RxNorm: 1632031 5 PO as needed 05/10/20172017 Inactive Augmentin 875 mg-125 mg tablet RxNorm: 251864 1 Tablet(s) PO BID 05/10/2017 05/16/2017 Inactive folic acid 1 mg tablet RxNorm: 114595 TAKE ONE TABLET BY MOUTH EVERY DAY 05/09/2017 05/03/2018 Inactive Carafate 1 gram tablet RxNorm: 165745 TAKE ONE TABLET BY MOUTH FOUR TIMES A DAY 30 MINUTES BEFORE MEALS AND AT BEDTIME 03/18/2017 07/07/2018 Inactive scopolamine 1.5 mg transdermal patch (1 mg over 3 days) RxNorm: 588005 1 Patch TD Q72H use for sea sickness 02/20/201703/05 Inactive Pristiq 50 mg tablet,extended release RxNorm: 387240 1 Tablet(s) PO daily 01/15/2017 07/07/2018 Inactive Pristiq 50 mg tablet,extended release RxNorm: 668179 1 Tablet(s) PO BID 12/20/2016 01/14/2017 Inactive naproxen sodium 550 mg tablet RxNorm: 019291 Tablet(s) Take 1 tablet by mouth twice a day 11/14/2016 08/08/2017 Inactive Harper Alba Lancjean claude 33 gauge RxNorm: TEST TWO TIMES A DAY 11/12/2016 04/10/2017 Inactive Phenergan VC-Codeine 6.25 mg-5 mg-10 mg/5 mL syrup RxNorm: 681479 5 Milliliter(s) PO Q6 as needed cough 09/06/20162016 Inactive Nitro-Bid 2 % transdermal ointment RxNorm: 906581 APPLY TO AFFECTED AREA(S) TOPICALLY THREE TIMES A DAY NEEDED FOR RAYNAUDS SYMPTOMS OF FEET 08/21/2016 10/19/2016 Inactive Voltaren 1 % topical gel RxNorm: 462233 APPLY 2 GRAMS TOPICALLY FOUR TIMES A DAY 08/21/2016 12/22/2016 Inactive Vitamin B-12 1,000 mcg/mL injection solution RxNorm: 123916 INJECT 1ML INTRAMUSCULARLY ONCE WEEKLY 08/21/2016 Inactive folic acid 1 mg tablet RxNorm: 057771 TAKE ONE TABLET BY MOUTH EVERY DAY 08/13/2016 04/09/2017 Inactive Flagyl 500 mg tablet RxNorm: 020089 1 Tablet(s) PO TID 201506/22/2016 Inactive Cholestyramine Light 4 gram oral powder RxNorm: 484050 1 packet PO PRN as needed 06/11/2016 No Stop Date Active Flexeril 10 mg tablet RxNorm: 573341 1 Tablet(s) PO as needed 02/19/2017 Inactive 1 hs Vagifem 10 mcg vaginal tablet RxNorm: 877075 1 Tablet(s) VAG BIW -TIW 06/11/2016 07/07/2018 Inactive Flagyl 500 mg tablet RxNorm: 212534 1 Tablet(s) PO TID 201506/10/2016 Inactive Lomotil 2.5 mg-0.025 mg tablet RxNorm: 1395892 1 Tablet(s) PO AC & HS as needed 04/24/2016 05/23/2016 Inactive Keflex 500 mg capsule RxNorm: 444957 1 Capsule(s) PO TID 201504/11/2016 Inactive Keflex 500 mg capsule RxNorm: 747908 1 Capsule(s) PO TID 201504/18/2016 Inactive Pristiq 50 mg tablet,extended release RxNorm: 670689 1 Tablet(s) PO QAM 03/30/2016 12/19/2016 Inactive amitriptyline 25 mg tablet RxNorm: 314288 1/2 Tablet(s) PO QHS x [address] pablo 03/30/2016 06/10/2016 Inactive potassium chloride 20 mEq/15 mL oral liquid RxNorm: 982183 TAKE 2 TABLESPOONS DAILY 03/23/2016 09/18/2016 Inactive Glucocard Vital Sensor strips RxNorm: TEST TWO TIMES A DAY 10/17/2017 Inactive Questran 4 gram oral powder RxNorm: 074842 1 dose PO daily 04/201602/14/2016 Inactive Questran 4 gram oral powder RxNorm: 103569 1 dose PO daily 04/201603/15/2016 Inactive Miralax 17 gram oral powder packet RxNorm: 964495 1 PO daily 02/08/2016 Inactive Miralax 17 gram oral powder packet RxNorm: 135451 1 PO daily 06/10/2016 Inactive Carafate 1 gram tablet RxNorm: 851538 1 Tablet(s) PO QID take 30 minutes before meals and at bedtime 01/23/20162015 Inactive Vitamin D2 50,000 unit capsule RxNorm: 303916 1 Capsule(s) PO QW 12/26/2015 03/24/2016 Inactive Tamiflu 75 mg capsule RxNorm: 852620 1 Capsule(s) PO daily 11/2111/21/2015 Inactive Tamiflu 75 mg capsule RxNorm: 657273 1 Capsule(s) PO daily 11/2112/01/2015 Inactive folic acid 1 mg tablet RxNorm: 417261 TAKE ONE TABLET BY MOUTH EVERY DAY 11/03/2015 07/29/2016 Inactive Keflex 500 mg capsule RxNorm: 536752 1 Capsule(s) PO TID 201511/11/2015 Inactive Augmentin 500 mg-125 mg tablet RxNorm: 939953 1 Tablet(s) PO TID 09/13/2015 09/22/2015 Inactive Zithromax Z-Juapnablo 250 mg tablet RxNorm: 301451 1 Tablet(s) PO 12/25/2015 Inactive Harper Alba Lancets 33 gauge RxNorm: 1 test Miscellaneous BID 06/21/2015 06/14/2016 Inactive Nitro-Bid 2 % transdermal ointment RxNorm: 602230 1 Application TD TID as needed raynauds symptoms of feet 06/01/201508/29 Inactive Vitamin B-12 1,000 mcg/mL injection solution RxNorm: 182502 INJECT 1ML INTRAMUSCULARLY ONCE WEEKLY 05/16/201503/2016 Inactive Voltaren 1 % topical gel RxNorm: 196921 2 Gram(s) TOP QID 05/1007/08/2015 Inactive potassium chloride 20 mEq/15 mL oral liquid RxNorm: 719808 TAKE 2 TABLESPOONS DAILY 04/22/2015 10/18/2015 Inactive naproxen sodium 550 mg tablet RxNorm: 976382 Tablet(s) Take 1 tablet by mouth twice a day 03/10/2015 06/01/2016 Inactive naproxen sodium 550 mg tablet RxNorm: 307378 Take 1 tablet by mouth twice a day 03/09/2015 11/15/2016 Inactive 2nd Attempt Pristiq 50 mg tablet,extended release RxNorm: 872264 1 Tablet(s) PO BID 03/09/2015 03/08/2015 Inactive naproxen sodium 550 mg tablet RxNorm: 263150 1 Tablet(s) PO BID 03/09/2015 03/08/2015 Inactive naproxen sodium 550 mg tablet RxNorm: 723686 Take 1 tablet by mouth twice a day 03/09/2015 03/09/2015 Inactive Pristiq 50 mg tablet,extended release RxNorm: 082882 Take 1 tablet twice a day 03/09/2015 03/29/2016 Inactive folic acid 1 mg tablet RxNorm: 514016 TAKE ONE TABLET BY MOUTH EVERY DAY 01/17/2015 11/02/2015 Inactive Vitamin B-12 1,000 mcg/mL injection solution RxNorm: 676769 INJECT 1 MLS DIRECTED ONCE WEEKLY 12/03/20142015 Inactive hydrocodone 10 mg-acetaminophen 325 mg tablet RxNorm: 917680 1 Tablet(s) PO Q6 PRN 11/22/2014 12/21/2014 Inactive [SAVINGS FOR NON-COVERED DRUGS -- BIN:[id number], PCN: ASPROD1, Group: XXXXX, ID# [id number], Questions: . THIS IS NOT INSURANCE.] ceftriaxone 1 gram solution for injection RxNorm: 1804321 Inj 11/11/2014 11/11/2014 Inactive [SAVINGS FOR NON-COVERED DRUGS -- BIN:502743, PCN: ASPROD1, Group: XXXXX, ID# [id number], Questions: . THIS IS NOT INSURANCE.] Glucocard Vital Sensor strips RxNorm: 1 test Miscellaneous BID 10/27/2014 10/26/2014 Inactive DX code 790.29 Glucocard Vital Sensor strips RxNorm: 1 test Miscellaneous BID 10/27/2014 11/20/2015 Inactive DX code 790.29 [SAVINGS FOR UNINSURED PATIENTS -- BIN:966350, PCN: ASPROD1, Group: [id number], ID# [id number], Process claim through [employer], for questions: . THIS IS NOT INSURANCE.] topiramate 100 mg tablet RxNorm: 922977 2 Tablet(s) PO BID 04/27/2015 Inactive [SAVINGS FOR UNINSURED PATIENTS -- BIN:730777, PCN: ASPROD1, Group: [id number] , ID# [id number], Process claim through [email or web address], for questions: . THIS IS NOT INSURANCE.] Cholestyramine Susp Light 4 gram powder for susp in a packet RxNorm: 701624 packet PO PRN as needed 08/30/20142015 Inactive Nitro-Bid 2 % transdermal ointment RxNorm: 708612 1 Application TD TID as needed raynauds symptoms of feet 07/14/201410/11 Inactive Flonase 50 mcg/actuation nasal spray,suspension RxNorm: 196353 PLACE 2 SPRAYS IN EACH NOSTRIL DAILY 05/25/2014 08/22/2014 Inactive potassium chloride 20 mEq/15 mL oral liquid RxNorm: 904352 2 Tablespoon(s) PO daily 04/20/2014 04/21/2015 Inactive potassium chloride 10 % oral liquid RxNorm: 822492 2 Tablespoon(s) PO daily 04/20/2014 04/19/2014 Inactive potassium chloride 10 % oral liquid RxNorm: 523532 2 Tablespoon(s) PO daily 04/09/2014 04/19/2014 Inactive folic acid 1 mg tablet RxNorm: 022454 Tablet(s) PO TAKE ONE TABLET BY MOUTH EVERY DAY 02/15/2014 No Stop Date Active folic acid 1 mg tablet RxNorm: 756950 Tablet(s) PO TAKE ONE TABLET BY MOUTH EVERY DAY 02/15/2014 01/16/2015 Inactive folic acid 1 mg tablet RxNorm: 707515 1 Tablet(s) PO daily TAKE ONE TABLET BY MOUTH EVERY DAY 02/15/2014 02/14/2014 Inactive Flonase 50 mcg/actuation nasal spray,suspension RxNorm: 601582 1 Elysian NASAL BID 01/12/2014 08/09/2014 Inactive topiramate 100 mg tablet RxNorm: 932840 1.5 Tablet(s) PO BID 08/09/2014 Inactive amoxicillin 500 mg capsule RxNorm: 754281 1 Capsule(s) PO TID 12/24/2013 12/30/2013 Inactive amoxicillin 500 mg capsule RxNorm: 861337 1 Capsule(s) PO TID 12/24/2013 12/23/2013 Inactive Pristiq 50 mg tablet,extended release RxNorm: 390253 1 Tablet(s) PO BID 12/01/2013 02/23/2015 Inactive Vitamin B-12 1,000 mcg/mL injection solution RxNorm: 635976 1 Milliliter(s) Inj QW 11/10/2013 11/09/2013 Inactive Vitamin B-12 1,000 mcg/mL injection solution RxNorm: 168328 1 Milliliter(s) Inj QW 11/10/2013 12/02/2014 Inactive Myrbetriq 25 mg tablet,extended release RxNorm: 4330986 1 Tablet(s) PO daily 10/20/2013 08/16/2014 Inactive fluconazole 150 mg tablet RxNorm: 789943 1 Tablet(s) PO daily 09/15/2013 09/19/2013 Inactive amoxicillin 875 mg-potassium clavulanate 125 mg tablet RxNorm: 921489 1 Tablet(s) PO BID 09/15/2013 09/24/2013 Inactive Pristiq 50 mg tablet,extended release RxNorm: 215113 1 Tablet(s) PO BID 07/30/2013 11/30/2013 Inactive Topamax 25 mg tablet RxNorm: 210413 4 Tablet(s) PO BID 201201/11/2014 Inactive vitamin B12 200mcg Elysian, Suspension RxNorm: 1 Elysian PO daily 07/27/2013 12/25/2015 Inactive Flonase 50 mcg/actuation nasal spray,suspension RxNorm: 133844 2 [facility]ian NASAL daily 06/09/2013 07/08/2013 Inactive Carafate 1 gram tablet RxNorm: 824841 1 Tablet(s) PO ac and hs 05/07/2013 05/06/2013 Inactive Carafate 1 gram tablet RxNorm: 569920 1 Tablet(s) PO ac and hs 05/07/2013 05/31/2014 Inactive potassium chloride 10 % Oral Liquid RxNorm: 870723 1 Tablespoon(s) PO daily 03/23/2013 04/08/2014 Inactive folic acid 1 mg tablet RxNorm: 066861 Tablet(s) PO TAKE ONE TABLET BY MOUTH EVERY DAY 01/29/2013 02/14/2014 Inactive naproxen sodium 550 mg tablet RxNorm: 005918 1 Tablet(s) PO BID 01/21/2013 10/26/2014 Inactive hydrocodone 5 mg-acetaminophen 500 mg tablet RxNorm: 799700 1 Tablet(s) PO Q8 PRN 12/25/2012 02/19/2017 Inactive folic acid 1 mg tablet RxNorm: 256335 1 Tablet(s) PO daily 01/28/2013 Inactive cyanocobalamin (vitamin B-12) 1,000 mcg/mL Injection RxNorm: 124110 1 Milliliter(s ) Inj 2 x month inject 1 mL every other week intramuscularly 11/03/2012 11/02/2012 Inactive please provide 25 gauge syringes as well. cyanocobalamin (vitamin B-12) 1,000 mcg/mL Injection RxNorm: 063363 Milliliter(s) Inj 11/03/2012 11/03/2012 Inactive cyanocobalamin (vitamin B-12) 1,000 mcg/mL Injection RxNorm: 036773 1 Milliliter(s ) Inj 2 x month inject 1 mL every other week intramuscularly 11/03/2012 12/25/2015 Inactive please provide 25 gauge syringes as well. cyanocobalamin (vitamin B-12) 1,000 mcg/mL Injection RxNorm: 396051 1 Milliliter(s ) Inj 10/20/2012 10/20/2012 Inactive Vitamin B-12 1,000 mcg/mL Injection RxNorm: 198599 1 Milliliter(s) Inj 09/11/2012 09/11/2012 Inactive Zithromax Z-Juanpablo 250 mg tablet RxNorm: 996144 Tablet(s) PO UD 12/24/2012 Inactive please give z juanpablo hydrochlorothiazide 25 mg tablet RxNorm: 633457 1/2 Tablet(s) PO daily 08/11/2012 No Stop Date Active Vitamin B-12 1,000 mcg/mL Injection RxNorm: 866459 Milliliter(s) Inj 08/11/2012 08/11/2012 Inactive Vitamin D2 50,000 unit capsule RxNorm: 294898 Capsule(s) PO one weekly for 8 weeks then resume her daily dosing 07/21/2012 07/20/2012 Inactive Vitamin B-12 1,000 mcg/mL Injection RxNorm: 095153 Milliliter(s) Inj 07/21/2012 07/21/2012 Inactive Vitamin D2 50,000 unit capsule RxNorm: 209170 Capsule(s) PO one weekly for 8 weeks then resume her daily dosing 07/21/2012 09/18/2012 Inactive Diflucan 150 mg tablet RxNorm: 388712 1 Tablet(s) PO daily 09/201107/12/2012 Inactive HyoMax-SR 0.375 mg tablet,extended release RxNorm: 1129193 Tablet(s) PO PRN No Start Date Active Maxalt-TELECOMMUNICATIONS LINE INSTALLER 10 mg disintegrating tablet RxNorm: 945174 Tablet(s) PO PRN No Start Date Active Vitamin D3 2,000 unit tablet RxNorm: 787182 1 Tablet(s) PO daily No Start Date Active potassium chloride 20 mEq/15 mL oral liquid RxNorm: 618767 2 Tablespoon(s) PO daily No Start Date Active Zetia 10 mg tablet RxNorm: 524358 1 Tablet(s) PO QPM No Start Date Active metoprolol tartrate 50 mg tablet RxNorm: 522810 1 Tablet(s) PO BID No Start Date Active biotin 2,500 mcg tablet RxNorm: 110340 1 Tablet(s) PO daily No Start Date Active Zyrtec 10 mg tablet RxNorm: 7524117 1 Tablet(s) PO PRN No Start Date Active Praluent Pen 75 mg/mL subcutaneous pen injector RxNorm: 5627483 1 Milliliter(s) SQ Q 2 weeks No Start Date Active amlodipine 10 mg tablet RxNorm: 680101 1 Tablet(s) PO daily No Start Date Active Fioricet oral RxNorm: 925565 oral No Start Date Active Cholestyramine Susp Light 4 gram Packet RxNorm: 356698 packet PO PRN No Start Date 08/29/2014 Inactive Pristiq 50 mg tablet,extended release RxNorm: 350975 1 Tablet(s) PO daily No Start Date 07/29/2013 Inactive Topamax 25 mg tablet RxNorm: 849910 3 Tablet(s) PO BID No Start Date 07/29/2013 Inactive pantoprazole 40 mg tablet,delayed release RxNorm: 779889 1 Tablet(s) PO daily No Start Date 07/07/2018 Inactive Tricor 145 mg tablet RxNorm: 789619 1 Tablet(s) PO daily No Start Date 12/24/2012 Inactive Zithromax Z-Juanpablo 250 mg tablet RxNorm: 311976 Tablet(s) PO UD No Start Date 08/11/2012 Inactive Fish Oil 1,000 mg capsule RxNorm: 1 Capsule(s) PO BID No Start Date 07/07/2018 Inactive Vitamin D3 2,000 unit capsule RxNorm: 554919 1 Capsule(s) PO daily No Start Date 12/25/2015 Inactive Vagifem 10 mcg vaginal tablet RxNorm: 029923 1-2 Tablet(s) VAG weekly No Start Date 06/10/2016 Inactive Gelnique 10 % (100 mg/gram) transdermal gel packet RxNorm: 291395 3% gel 3 pumps TD daily No Start Date 08/09/2014 Inactive Vitamin D3 5,000 unit tablet RxNorm: 461155 1 Tablet(s) PO daily No Start Date 06/10/2016 Inactive hydrochlorothiazide 25 mg tablet RxNorm: 499950 1 Tablet(s) PO daily No Start Date 08/10/2012 Inactive Flexeril 10 mg tablet RxNorm: 895086 Tablet(s) PO No Start Date 06/10/2016 Inactive 1 q am1/2 with dinner1 hs Valium 5 mg tablet RxNorm: 098722 1 Tablet(s) PO PRN No Start Date 06/26/2017 Inactive amlodipine 5 mg tablet RxNorm: 669060 1 Tablet(s) PO daily No Start Date 03/15/2014 Inactive Phenergan VC-Codeine 6.25 mg-5 mg-10 mg/5 mL syrup RxNorm: 691867 5 Milliliter(s) PO Q6 as needed cough No Start Date 2015 Inactive Zithromax Z-Juanpablo 250 mg tablet RxNorm: 437644 Tablet(s) PO UD No Start Date 07/30/2013 Inactive naproxen 500 mg tablet RxNorm: 831725 Tablet(s) PO BID PRN No Start Date 01/20/2013 Inactive Lovaza 1 gram capsule RxNorm: 902035 2 Capsule(s) PO BID No Start Date 03/04/2018 Inactive hydrocodone 5 mg-acetaminophen 500 mg tablet RxNorm: 302227 1 Tablet(s) PO Q8 PRN No Start Date 12/24/2012 Inactive biotin 1000 mg RxNorm : 2 PO No Start Date 06/11/2016 Inactive aspirin 81 mg tablet,delayed release RxNorm: 032381 1 Tablet(s) PO daily No Start Date 07/07/2018 Inactive Lomotil 2.5 mg-0.025 mg tablet RxNorm: 6059487 Tablet(s) PO PRN No Start Date 04/23/2016 Inactive Ditropan XL 5 mg tablet,extended release RxNorm: 779302 1 Tablet(s) PO daily No Start Date 06/09/2018 Inactive Antara 130 mg capsule RxNorm: 122530 1 Capsule(s) PO daily No Start Date 07/07/2018 Inactive folic acid 1 mg tablet RxNorm: 013064 1 Tablet(s) PO daily No Start Date 11/02/2012 Inactive amitriptyline 25 mg tablet RxNorm: 059525 1 Tablet(s) PO QHS dr fonseca No Start Date 03/29/2016 Inactive Gelnique transdermal RxNorm: 752213 transdermal No Start Date 03/25/2016 Inactive Toprol XL 50 mg tablet,extended release RxNorm: 846200 1 Tablet(s) PO daily No Start Date 04/08/2017 Inactive potassium chloride 10 % Oral Liquid RxNorm: 543064 1 Tablespoon(s) PO daily No Start Date 03/22/2013 Inactive Lipitor 10 mg tablet RxNorm: 745960 1 Tablet(s) PO QHS No Start Date 12/24/2012 Inactive diltiazem 120 mg tablet RxNorm: 037861 1 Tablet(s) PO daily No Start Date 08/10/2012 Inactive Combivent Respimat 20 mcg-100 mcg/actuation solution for inhalation RxNorm: 7749077 1-2 Puff(s) INH Q4 PRN No Start Date 07/25/2017 Inactive Medication Administered Medication Codes Instructions Start Date Status ceftriaxone 1 gram solution for injection RxNorm: 4095972 11/11/2014 No longer Active cyanocobalamin (vitamin B-12) 1,000 mcg/mL Injection RxNorm : 914129 Milliliter 11/03/2012 No longer Active cyanocobalamin (vitamin B-12) 1,000 mcg/mL Injection RxNorm : 050274 1Milliliter 10/20/2012 No longer Active Vitamin B-12 1,000 mcg/mL Injection RxNorm: 398273 1Milliliter 09/11/2012 No longer Active Vitamin B-12 1,000 mcg/mL Injection RxNorm: 095443 Milliliter 08/11/2012 No longer Active Vitamin B-12 1,000 mcg/mL Injection RxNorm: 672879 Milliliter 07/21/2012 No longer Active Immunizations Vaccine [...] Item Item Code Result Date Comp Metabolic Ben577 NA 140 mEq/L 05/01/2018 Comp Metabolic Ubo552 K 4.1 mEq/L 05/01/2018 Comp Metabolic Yjv500 CL 107 mEq/L 05/01/2018 Comp Metabolic Jsc810 CO2 25.0 mEq/L 05/01/2018 Comp Metabolic Tma165 ANION GAP 12 05/01/2018 Comp Metabolic Wgt102 GLUCOSE 98 mg/dL 05/01/2018 Comp Metabolic Avr085 Creat 0.7 mg/dL 05/01/2018 Comp Metabolic Ksv608 eGFR 96 ml/min/1.73m2 05/01/2018 Comp Metabolic Gnm970 BUN 14 mg/dL 05/01/2018 Comp Metabolic Kmg386 B/C Ratio 20.9 Ratio 05/01/2018 Comp Metabolic Wew089 CALCIUM 9.5 mg/dL 05/01/2018 Comp Metabolic Dsq249 ALK PHOS 74 U/L 05/01/2018 Comp Metabolic Dxc966 AST(SGOT) 19 U/L 05/01/2018 Comp Metabolic Dnc373 ALT(SGPT) 29 U/L 05/01/2018 Comp Metabolic Iiq112 BILI T 0.3 mg/dL 05/01/2018 Comp Metabolic Zmp111 ALBUMIN 4.3 g/dL 05/01/2018 Comp Metabolic Qpv757 TPRO 6.7 g/dL 05/01/2018 Comp Metabolic Nvd195 GLOB 2.4 g/dL 05/01/2018 Comp Metabolic Lok403 A/G Ratio 1.8 Ratio 05/01/2018 Comp Metabolic Dii964 Osmo 280 mOsmo 05/01/2018 Lipid Ord30 CHOL 202 mg/dL 05/01/2018 Lipid Ord30 HDL 54.0 mg/dl 05/01/2018 Lipid Ord30 TRIG 359 mg/dL 05/01/2018 Lipid Ord30 LDL 76 mg/dL 05/01/2018 Lipid Ord30 C/HDL 3.7 Ratio 05/01/2018 Free T4 Gfj778 FREE T4 0.95 ng/dL 02/11/2018 Tsh Ord6 TSH (3rd IS) 2.16 uIU/mL 02/11/2018 Free T4 Kau820 FREE T4 0.81 ng/dL 11/12/2017 Tsh Ord6 TSH (3rd IS) 1.66 uIU/mL 11/12/2017 Free T4 Ewv370 FREE T4 0.80 ng/dL 08/20/2017 Tsh Ord6 hTSH II 1.45 uIU/mL 08/20/2017 Hepatic Vkw958 ALBUMIN 4.4 g/dL 08/20/2017 Hepatic Zmx533 TPRO 6.6 g/dL 08/20/2017 Hepatic Dfp539 GLOB 2.2 g/dL 08/20/2017 Hepatic Rwf924 A/G Ratio 2.0 Ratio 08/20/2017 Hepatic Icq914 ALK PHOS 50 U/L 08/20/2017 Hepatic Sdt777 ALT(SGPT) 20 U/L 08/20/2017 Hepatic Vxe247 AST(SGOT) 20 U/L 08/20/2017 Hepatic Upq261 BILI T 0.3 mg/dL 08/20/2017 Hepatic Iuc837 BILI D 0.1 mg/dL 08/20/2017 Hepatic Hqk800 BILI I 0.2 mg/dL 08/20/2017 Lipid Ord30 [...] 30.3 pg 02/21/2017 Cbc With Differential Ord2 [facility]% 6.9 % 02/21/2017 Cbc With Differential Ord2 Eos% 2.6 % 02/21/2017 Cbc With Differential Ord2 MCHC 33.0 pg 02/21/2017 Cbc With Differential Ord2 Baso% 0.3 % 02/21/2017 Cbc With Differential Ord2 PLT 296 K/ul 02/21/2017 Cbc With Differential Ord2 Neut ABS# 4.74 K/ul 02/21/2017 Cbc With Differential Ord2 RDW 13.9 % 02/21/2017 Cbc With Differential Ord2 Lymph ABS# 1.82 K/ul 02/21/2017 Cbc With Differential Ord2 [facility] ABS# 0.5 K/ul 02/21/2017 Cbc With Differential Ord2 Eos ABS# 0.2 K/ul 02/21/2017 Cbc With Differential Ord2 Baso ABS# 0.0 K/ul 02/21/2017 %Hba1C Uwb783 % HbA1c 46751-7 5.8 % 02/21/2017 %Hba1C Ilm031 Gluc Ave 120 mg/dL 02/21/2017 Tsh Ord6 hTSH II 1.90 uIU/mL 02/21/2017 Vitamin D 25 Oh Rof0988 VITAMIN D, 25 HYDROXY 42.82 ng/mL Comp Metabolic Lyz350 NA 141 mEq/L 02/21/2017 Comp Metabolic Gad458 K 4.1 mEq/L 02/21/2017 Comp Metabolic Gws575 CL 107 mEq/L 02/21/2017 Comp Metabolic Pza737 CO2 25.0 mEq/L 02/21/2017 Comp Metabolic Xcp277 ANION GAP 13 02/21/2017 Comp Metabolic Npn656 GLUCOSE 87 mg/dL 02/21/2017 Comp Metabolic Ipl916 Creat 0.8 mg/dL 02/21/2017 Comp Metabolic Wwq822 eGFR 80 ml/min/1.73m2 02/21/2017 Comp Metabolic Zjh861 BUN 20 mg/dL 02/21/2017 Comp Metabolic Upb357 B/C Ratio 25.3 Ratio 02/21/2017 Comp Metabolic Pvc059 CALCIUM 9.5 mg/dL 02/21/2017 Comp Metabolic Sdz729 ALK PHOS 61 U/L 02/21/2017 Comp Metabolic Amh657 AST(SGOT) 16 U/L 02/21/2017 Comp Metabolic Oxf964 ALT(SGPT) 19 U/L 02/21/2017 Comp Metabolic Bqj203 BILI T 0.3 mg/dL 02/21/2017 Comp Metabolic Ver827 ALBUMIN 4.4 g/dL 02/21/2017 Comp Metabolic Don531 TPRO 7.0 g/dL 02/21/2017 Comp Metabolic Pcn849 GLOB 2.6 g/dL 02/21/2017 Comp Metabolic Aqm379 A/G Ratio 1.7 Ratio 02/21/2017 Comp Metabolic Yuh306 Osmo 283 mOsmo 02/21/2017 Lipid Ord30 CHOL 185 mg/dL 02/21/2017 Lipid Ord30 HDL 74.0 mg/dl 02/21/2017 Lipid Ord30 TRIG 148 mg/dL 02/21/2017 Lipid Ord30 LDL 81 mg/dL 02/21/2017 Lipid Ord30 C/HDL 2.5 Ratio 02/21/2017 Hepatic Wmm782 ALBUMIN 4.9 g/dL 08/21/2016 Hepatic Skl497 TPRO 7.3 g/dL 08/21/2016 Hepatic Vyr402 GLOB 2.5 g/dL 08/21/2016 Hepatic Xwc716 A/G Ratio 2.0 Ratio 08/21/2016 Hepatic Pzv023 ALK PHOS 76 U/L 08/21/2016 Hepatic Tdj943 ALT(SGPT) 29 U/L 08/21/2016 Hepatic Xbv308 AST(SGOT) 22 U/L 08/21/2016 Hepatic Smw002 BILI T 0.4 mg/dL 08/21/2016 Hepatic Otw985 BILI D 0.1 mg/dL 08/21/2016 Hepatic Ndq359 BILI I 0.3 mg/dL 08/21/2016 Lipid Ord30 CHOL 302 mg/dL 08/21/2016 Lipid Ord30 HDL 69.0 mg/dl 08/21/2016 Lipid Ord30 TRIG 223 mg/dL 08/21/2016 Lipid Ord30 LDL 188 mg/dL 08/21/2016 Lipid Ord30 C/HDL 4.4 Ratio 08/21/2016 Lipase Bqd424 LIPASE 14 U/L 06/04/2016 Comp Metabolic Ins903 NA 135 mEq/L 06/04/2016 Comp Metabolic Urx187 K 3.8 mEq/L 06/04/2016 Comp Metabolic Tlh909 CL 101 mEq/L 06/04/2016 Comp Metabolic Maq021 CO2 26.0 mEq/L 06/04/2016 Comp Metabolic Wdt317 ANION GAP 12 06/04/2016 Comp Metabolic Ffr904 GLUCOSE 91 mg/dL 06/04/2016 Comp Metabolic Dnj564 Creat 0.8 mg/dL 06/04/2016 Comp Metabolic Our655 eGFR 74 ml/min/1.73m2 06/04/2016 Comp Metabolic Xgt880 BUN 16 mg/dL 06/04/2016 Comp Metabolic Gag644 B/C Ratio 19.0 Ratio 06/04/2016 Comp Metabolic Wui687 CALCIUM 10.0 mg/dL 06/04/2016 Comp Metabolic Qrb020 ALK PHOS 76 U/L 06/04/2016 Comp Metabolic Bzn898 AST(SGOT) 20 U/L 06/04/2016 Comp Metabolic Ffo711 ALT(SGPT) 24 U/L 06/04/2016 Comp Metabolic Cvh536 BILI T 0.3 mg/dL 06/04/2016 Comp Metabolic Fzb552 ALBUMIN 4.6 g/dL 06/04/2016 Comp Metabolic Spw758 TPRO 6.9 g/dL 06/04/2016 Comp Metabolic Wnz840 GLOB 2.3 g/dL 06/04/2016 Comp Metabolic Pdv187 A/G Ratio 2.0 Ratio 06/04/2016 Comp Metabolic Gtv608 Osmo 271 mOsmo 06/04/2016 Cbc With Differential Ord2 WBC 6.11 K/ul 06/04/2016 Cbc With Differential Ord2 RBC 4.44 M/ul 06/04/2016 Cbc With Differential Ord2 HGB 13.3 g/dl 06/04/2016 Cbc With Differential Ord2 Neut% 67.0 % 06/04/2016 Cbc With Differential Ord2 HCT 40.7 % 06/04/2016 Cbc With Differential Ord2 MCV 91.7 fl 06/04/2016 Cbc With Differential Ord2 Lymph% 24.5 % 06/04/2016 Cbc With Differential Ord2 [facility]% 6.5 % 06/04/2016 Cbc With Differential Ord2 MCH 30.0 pg 06/04/2016 Cbc With Differential Ord2 Eos% [...] 1.50 K/ul 06/04/2016 Cbc With Differential Ord2 [facility] ABS# 0.4 K/ul 06/04/2016 Cbc With Differential Ord2 Eos ABS# 0.1 K/ul 06/04/2016 Cbc With Differential Ord2 Baso ABS# 0.0 K/ul 06/04/2016 Amylase Ord34 AMYLASE 31 U/L 06/04/2016 Lipid Ord30 CHOL 245 mg/dL 2016 Lipid Ord30 HDL 62.0 mg/dl 2016 Lipid Ord30 TRIG 140 mg/dL 2016 Lipid Ord30 LDL 155 mg/dL 2016 Lipid Ord30 C/HDL 4.0 Ratio 2016 Hepatic Bdw732 ALBUMIN 4.3 g/dL 2016 Hepatic Qjj963 TPRO 6.7 g/dL 2016 Hepatic Jee604 GLOB 2.4 g/dL 2016 Hepatic Xsy240 A/G Ratio 1.8 Ratio 2016 Hepatic Raz888 ALK PHOS 50 U/L 2016 Hepatic Nod779 ALT(SGPT) 20 U/L 2016 Hepatic Rko209 AST(SGOT) 18 U/L 2016 Hepatic Jtb402 BILI T 0.4 mg/dL 2016 Hepatic Otr738 BILI D 0.1 mg/dL 2016 Hepatic Qaf554 BILI I 0.3 mg/dL 2016 Urine Culture Ucult Preliminary No Growth Day 1 09/15/2015 Urine Culture Ucult Complete No Growth Day 2 09/15/2015 Magnesium Ord90 Mag 1.9 mg/dL 09/07/2015 Comp Metabolic Jqr393 NA 139 mEq/L 09/07/2015 Comp Metabolic Vfl048 K 4.4 mEq/L 09/07/2015 Comp Metabolic Anv213 CL 107 mEq/L 09/07/2015 Comp Metabolic Zcq745 CO2 24.0 mEq/L 09/07/2015 Comp Metabolic Kkv655 ANION GAP 12 09/07/2015 Comp Metabolic Xwe052 GLUCOSE 91 mg/dL 09/07/2015 Comp Metabolic Jzf308 Creat 1.0 mg/dL 09/07/2015 Comp Metabolic Wwo420 eGFR 64 ml/min/1.73m2 09/07/2015 Comp Metabolic Wmh585 BUN 31 mg/dL 09/07/2015 Comp Metabolic Rxy781 B/C Ratio 32.3 Ratio 09/07/2015 Comp Metabolic Qws412 CALCIUM 9.7 mg/dL 09/07/2015 Comp Metabolic Lmm569 ALK PHOS 56 U/L 09/07/2015 Comp Metabolic Rzf773 AST(SGOT) 29 U/L 09/07/2015 Comp Metabolic Yfw801 ALT(SGPT) 34 U/L 09/07/2015 Comp Metabolic Ale684 BILI T 0.3 mg/dL 09/07/2015 Comp Metabolic Ltj808 ALBUMIN 4.6 g/dL 09/07/2015 Comp Metabolic Ugl051 TPRO 7.0 g/dL 09/07/2015 Comp Metabolic Bne473 GLOB 2.4 g/dL 09/07/2015 Comp Metabolic Nwc051 A/G Ratio 1.9 Ratio 09/07/2015 Comp Metabolic Nof531 Osmo 284 mOsmo 09/07/2015 Bili D Ord93 BILI D 0.1 mg/dL 09/07/2015 Bili D Ord93 BILI I 0.2 mg/dL 09/07/2015 Lipid Ord30 CHOL 243 mg/dL 09/07/2015 Lipid Ord30 HDL 75.0 mg/dl 09/07/2015 Lipid Ord30 TRIG 161 mg/dL 09/07/2015 Lipid Ord30 LDL 136 mg/dL 09/07/2015 Lipid Ord30 C/HDL 3.2 Ratio 09/07/2015 Comp Metabolic Iat099 NA 138 mEq/L 06/13/2015 Comp Metabolic Wff809 K 4.0 mEq/L 06/13/2015 Comp Metabolic Vyj664 CL 104 mEq/L 06/13/2015 Comp Metabolic Kbb192 CO2 26.0 mEq/L 06/13/2015 Comp Metabolic Cgg783 ANION GAP 12 06/13/2015 Comp Metabolic Lpy094 GLUCOSE 86 mg/dL 06/13/2015 Comp Metabolic Rqb201 Creat 0.9 mg/dL 06/13/2015 Comp Metabolic Fjw470 eGFR 71 ml/min/1.73m2 06/13/2015 Comp Metabolic Beg211 BUN 18 mg/dL 06/13/2015 Comp Metabolic Fdj777 B/C Ratio 20.5 Ratio 06/13/2015 Comp Metabolic Jnw686 CALCIUM 10.1 mg/dL 06/13/2015 Comp Metabolic Kwn366 ALK PHOS 52 U/L 06/13/2015 Comp Metabolic Mnz927 AST(SGOT) 18 U/L 06/13/2015 Comp Metabolic Iif334 ALT(SGPT) 21 U/L 06/13/2015 Comp Metabolic Rrr838 BILI T 0.3 mg/dL 06/13/2015 Comp Metabolic Cbg381 ALBUMIN 4.7 g/dL 06/13/2015 Comp Metabolic Lqu361 TPRO 6.9 g/dL 06/13/2015 Comp Metabolic Uym182 GLOB 2.2 g/dL 06/13/2015 Comp Metabolic Vqf123 A/G Ratio 2.1 Ratio 06/13/2015 Comp Metabolic Zsy499 Osmo 277 mOsmo 06/13/2015 Tsh Ord6 hTSH II 2.53 uIU/mL 06/13/2015 Cbc With Differential Ord2 WBC 5.7 [...] With Differential Ord2 RDW 14.7 % 06/13/2015 %Hba1C Phh329 % HbA1c 17187-6 5.7 % 06/13/2015 %Hba1C Zsw284 Gluc Ave 117 mg/dL 06/13/2015 Vitamin D 25 Oh Zun3001 VITAMIN D, 25 HYDROXY 41.85 ng/mL Cbc [...] Ord2 RDW 14.5 % 04/18/2015 Comp Metabolic Kkn130 NA 137 mEq/L 04/18/2015 Comp Metabolic Rhc217 K 4.0 mEq/L 04/18/2015 Comp Metabolic Tbu140 CL 105 mEq/L 04/18/2015 Comp Metabolic Mkf518 CO2 23.0 mEq/L 04/18/2015 Comp Metabolic Oug365 ANION GAP 13 04/18/2015 Comp Metabolic Jyo429 GLUCOSE 73 mg/dL 04/18/2015 Comp Metabolic Psa356 Creat 0.9 mg/dL 04/18/2015 Comp Metabolic Bsk280 eGFR 72 ml/min/1.73m2 04/18/2015 Comp Metabolic Ioz097 BUN 17 mg/dL 04/18/2015 Comp Metabolic Zbl949 B/C Ratio 19.5 Ratio 04/18/2015 Comp Metabolic Roh263 CALCIUM 9.7 mg/dL 04/18/2015 Comp Metabolic Zfo809 ALK PHOS 55 U/L 04/18/2015 Comp Metabolic Fwm134 AST(SGOT) 28 U/L 04/18/2015 Comp Metabolic Lng164 ALT(SGPT) 27 U/L 04/18/2015 Comp Metabolic Vbc313 BILI T 0.3 mg/dL 04/18/2015 Comp Metabolic Zsb655 ALBUMIN 4.5 g/dL 04/18/2015 Comp Metabolic Ncw577 TPRO 7.0 g/dL 04/18/2015 Comp Metabolic Qmt342 GLOB 2.5 g/dL 04/18/2015 Comp Metabolic Efi503 A/G Ratio 1.8 Ratio 04/18/2015 Comp Metabolic Uys072 Osmo 274 mOsmo 04/18/2015 Comp Metabolic Ctr419 NA 136 mEq/L 03/22/2015 Comp Metabolic Scw345 K 4.1 mEq/L 03/22/2015 Comp Metabolic Zuf257 CL 102 mEq/L 03/22/2015 Comp Metabolic Xek779 CO2 26.0 mEq/L 03/22/2015 Comp Metabolic Czc656 ANION GAP 12 03/22/2015 Comp Metabolic Ljr157 GLUCOSE 82 mg/dL 03/22/2015 Comp Metabolic Zpj974 Creat 0.9 mg/dL 03/22/2015 Comp Metabolic Hhp277 eGFR 69 ml/min/1.73m2 03/22/2015 Comp Metabolic Uab392 BUN 30 mg/dL 03/22/2015 Comp Metabolic Ysl308 B/C Ratio 33.3 Ratio 03/22/2015 Comp Metabolic Eih955 CALCIUM 10.3 mg/dL 03/22/2015 Comp Metabolic Rok424 ALK PHOS 56 U/L 03/22/2015 Comp Metabolic Wus984 AST(SGOT) 17 U/L 03/22/2015 Comp Metabolic Bgq590 ALT(SGPT) 17 U/L 03/22/2015 Comp Metabolic Cku316 BILI T 0.3 mg/dL 03/22/2015 Comp Metabolic Tti708 ALBUMIN 4.7 g/dL 03/22/2015 Comp Metabolic Iwh097 TPRO 7.2 g/dL 03/22/2015 Comp Metabolic Fay861 GLOB 2.5 g/dL 03/22/2015 Comp Metabolic Gax013 A/G Ratio 1.9 Ratio 03/22/2015 Comp Metabolic Goc661 Osmo 277 mOsmo 03/22/2015 Cbc With Differential Ord2 WBC 7.9 K/uL [...] With Differential Ord2 RDW 15.0 % 03/22/2015 FREE T4 4343314 FREE T4 1.24 NG/DL 10/18/2014 CHEM 14 7980987 AST 14 U/L 10/15/2014 CHEM 14 3949926 ALT 15 IU/L 10/15/2014 CHEM 14 9144218 BUN 23 MG/DL 10/15/2014 CHEM 14 7577645 ALBUMIN 4.8 GM/DL 10/15/2014 CHEM 14 0029877 CHLORIDE 105 MMOL/L 10/15/2014 CHEM 14 5547487 BILI TOT 0.3 MG/DL 10/15/2014 CHEM 14 1217212 ALK PHOS 60 U/L 10/15/2014 CHEM 14 4881918 SODIUM 140 MMOL/L 10/15/2014 CHEM 14 3319385 CREATININE 0.89 MG/DL 10/15/2014 CHEM 14 8962712 CALCIUM 10.0 MG/DL 10/15/2014 CHEM 14 3205405 POTASSIUM 3.7 MMOL/L 10/15/2014 CHEM 14 0655742 PROT TOT 7.2 GM/DL 10/15/2014 CHEM 14 5150393 GLUCOSE 97 MG/DL 10/15/2014 CHEM 14 7271797 BICARB 25 MMOL/L 10/15/2014 CHEM 14 8544540 ANION GAP 10 MEQ/L 10/15/2014 CBC 3152778 WBC 6.7 10e9/L 10/15/2014 CBC 7201137 RBC 4.49 10e12/L 10/15/2014 CBC 5570792 HGB 13.4 g/dL 10/15/2014 CBC 1650551 HCT DET 40.2 % 10/15/2014 CBC 8500350 MCV 89.5 fL 10/15/2014 CBC 6149822 MCH 29.8 pg 10/15/2014 CBC 4515176 MCHC 33.3 g/dL 10/15/2014 CBC 6070557 PLT 311 10e9/L 10/15/2014 CBC 3826765 MPV 10.7 fL 10/15/2014 CBC 3983232 BESSY % 63.6 % 10/15/2014 CBC 7481530 LY % 26.7 % 10/15/2014 CBC 4656192 MON % 6.6 % 10/15/2014 CBC 8498989 EOS % 2.8 % 10/15/2014 CBC 6498914 BASO % 0.3 % 10/15/2014 CBC 8536899 RDW 13.4 % 10/15/2014 CBC 6352997 ABS BESSY 4.26 10e9/L 10/15/2014 CBC 0438478 ABS LYMPH 1.79 10e9/L 10/15/2014 CBC 9320804 ABS MONO 0.44 10e9/L 10/15/2014 CBC 8459530 ABS EOS 0.19 10e9/L 10/15/2014 CBC 9806829 ABS BASO 0.02 10e9/L 10/15/2014 CBC 4815734 RDW-SD 43.2 fL 10/15/2014 A1C HPLC 5511452 A1C HPLC 21453-8 5.7 % 10/15/2014 TSH 4315950 TSH 4.083 uIU/ML 10/15/2014 GFR CALC 8601054 GFR AA >60 ML/MIN 10/15/2014 GFR CALC 3431217 GFR NON-AA >60 ML/MIN 10/15/2014 VIT D TOTL 9414483 VIT D TOTL 36 NG/ML 10/15/2014 GFR CALC 3643699 GFR AA >60 ML/MIN 06/23/2014 GFR CALC 5529702 GFR NON-AA >60 ML/MIN 06/23/2014 CHEM 14 7307853 AST 21 U/L 06/23/2014 CHEM 14 0081049 ALT 24 IU/L 06/23/2014 CHEM 14 3311587 BUN 18 MG/DL 06/23/2014 CHEM 14 3987986 ALBUMIN 4.7 GM/DL 06/23/2014 CHEM 14 1847421 CHLORIDE 109 MMOL/L 06/23/2014 CHEM 14 2363416 BILI TOT 0.3 MG/DL 06/23/2014 CHEM 14 6259090 ALK PHOS 53 U/L 06/23/2014 CHEM 14 5670573 SODIUM 140 MMOL/L 06/23/2014 CHEM 14 4139387 CREATININE 0.86 MG/DL 06/23/2014 CHEM 14 5842984 CALCIUM 10.2 MG/DL 06/23/2014 CHEM 14 9269434 POTASSIUM 3.9 MMOL/L 06/23/2014 CHEM 14 6783503 PROT TOT 6.9 GM/DL 06/23/2014 CHEM 14 6636693 GLUCOSE 87 MG/DL 06/23/2014 CHEM 14 1891629 BICARB 24 MMOL/L 06/23/2014 CHEM 14 1372210 ANION GAP 7 MEQ/L 06/23/2014 TSH 2909306 TSH 1.417 uIU/ML 06/23/2014 FREE T4 2332531 FREE T4 1.21 NG/DL 06/23/2014 TSH 5996019 TSH 3.399 uIU/ML 12/16/2013 GFR CALC 1050417 GFR AA >60 ML/MIN 12/15/2013 GFR CALC 0066840 GFR NON-AA >60 ML/MIN 12/15/2013 CBC 9580250 WBC 6.4 10e9/L 12/15/2013 CBC 6800604 RBC 4.34 10e12/L 12/15/2013 CBC 0746427 HGB 12.9 g/dL 12/15/2013 CBC 1664080 HCT DET 39.3 % 12/15/2013 CBC 1702456 MCV 90.6 fL 12/15/2013 CBC 5046204 MCH 29.7 pg 12/15/2013 CBC 3366871 MCHC 32.8 g/dL 12/15/2013 CBC 1529020 PLT 292 10e9/L 12/15/2013 CBC 8345392 MPV 10.8 fL 12/15/2013 CBC 1682495 BESSY % 63.6 % 12/15/2013 CBC 9997019 LY % 25.7 % 12/15/2013 CBC 6054246 MON % 7.1 % 12/15/2013 CBC 8979246 EOS % 3.3 % 12/15/2013 CBC 9599738 BASO % 0.3 % 12/15/2013 CBC 2863752 RDW 13.4 % 12/15/2013 CBC 4668194 ABS BESSY 4.07 10e9/L 12/15/2013 CBC 6308111 ABS LYMPH 1.64 10e9/L 12/15/2013 CBC 3274038 ABS MONO 0.45 10e9/L 12/15/2013 CBC 5514656 ABS EOS 0.21 10e9/L 12/15/2013 CBC 5918573 ABS BASO 0.02 10e9/L 12/15/2013 CBC 4648826 RDW-SD 43.5 fL 12/15/2013 CHEM 14 9842303 AST 19 U/L 12/15/2013 CHEM 14 5832054 ALT 23 IU/L 12/15/2013 CHEM 14 5754148 BUN 23 MG/DL 12/15/2013 CHEM 14 7912125 ALBUMIN 4.7 GM/DL 12/15/2013 CHEM 14 3625047 CHLORIDE 108 MMOL/L 12/15/2013 CHEM 14 6208115 BILI TOT 0.3 MG/DL 12/15/2013 CHEM 14 6191804 ALK PHOS 58 U/L 12/15/2013 CHEM 14 1902504 SODIUM 139 MMOL/L 12/15/2013 CHEM 14 3730807 CREATININE 0.92 MG/DL 12/15/2013 CHEM 14 7876977 CALCIUM 10.0 MG/DL 12/15/2013 CHEM 14 0212749 POTASSIUM 4.0 MMOL/L 12/15/2013 CHEM 14 3585696 PROT TOT 7.1 GM/DL 12/15/2013 CHEM 14 0158317 GLUCOSE 82 MG/DL 12/15/2013 CHEM 14 2165845 BICARB 24 MMOL/L 12/15/2013 CHEM 14 3019964 ANION GAP 7 MEQ/L 12/15/2013 URINALYSIS NONAUTO W/O SCOPE 68922 Specific Kennan 1.025 DateTime(Free Text in Aprima) URINALYSIS NONAUTO W/O SCOPE 28001 PH 5 DateTime(Free Text in Apr[employer]) URINALYSIS NONAUTO W/O SCOPE 25137 GLUCOSE neg DateTime( Free Text in Apr[employer]) URINALYSIS NONAUTO W/O SCOPE 46678 Protein neg DateTime( Free Text in Apr[employer]) URINALYSIS NONAUTO W/O SCOPE 00041 Blood neg DateTime(Free Text in Apr[employer]) URINALYSIS NONAUTO W/O SCOPE 00516 Bilirubin neg DateTime(Free Text in Apr[employer]) URINALYSIS NONAUTO W/O SCOPE 21307 Ketones neg DateTime( Free Text in Apr[employer]) URINALYSIS NONAUTO W/O SCOPE 92216 Urobilinogen neg DateTime(Free Text in Apr[employer]) URINALYSIS NONAUTO W/O SCOPE 43876 Nitrite neg DateTime( Free Text in Apr[employer]) URINALYSIS NONAUTO W/O SCOPE 93040 Leukocytes neg DateTime(Free Text in Aprima) Review [...] accomodation 04/08/2017 None Full Exam - General 1995 Ears/Nose/Throat lips/teeth/gingiva Overall: benign lips 04/08/2017 None Full Exam - General 1995 Ears/Nose/Throat lips/teeth/gingiva Overall: normal dentition 04/08/2017 None Full Exam - General 1995 [...] vein procedure that will be perform in [place] in May. Full Exam - General 1994 [...] tenderness 12/15/2013 None Full Exam - General 1995 Abdomen [...] time 09/15/2013 None Full Exam - General 1995 Constitutional general appearance Overall: well developed 07/27/2013 None Full Exam - General 1994 Constitutional general appearance Overall: in no acute distress 07/27/2013 None Full Exam - General 1994 Constitutional general appearance Overall: well nourished 07/27/2013 None Full Exam - General 1995 Eyes conjunctiva /eyelids Overall: conjunctiva clear 07/27/2013 [...] Procedure Codes Date IMMUNIZATION ADMIN CPT -4: 40527 06/05/2018 FLU VAC NO PRSV 4 ZONIA 3 YRS+ CPT-4: 71990 06/05/2018 IMMUNIZATION ADMIN CPT -4: 61288 06/19/2017 FLU VAC NO PRSV 4 ZONIA 3 YRS+ CPT-4: 61874 06/19/2017 URINALYSIS NONAUTO W/O SCOPE CPT-4: 52754 09/08/2015 IMMUNIZATION ADMIN CPT -4: 95563 03/30/2015 ADACEL TDAP VACCINE 7 YRS/> IM CPT-4: 72398 03/30/2015 URINALYSIS NONAUTO W/O SCOPE CPT-4: 23400 03/22/2015 THER/PROPH/DIAG INJ SC/IM CPT-4: 07536 11/11/2014 ROCEPHIN, PER 250 MG CPT-4: J0696 11/11/2014 ROUTINE VENIPUNCTURE CPT-4: 28795 10/15/2014 HgbA1c CPT-4: 86425 10/15/2014 CBC (COMPLETE CBC W/AUTO DIFF WBC) CPT-4: 32720 10/15/2014 CHEM 14 (COMPREHEN METABOLIC PANEL) CPT-4: 06996 10/15/2014 TSH (ASSAY THYROID STIM HORMONE) CPT-4: 24073 10/15/2014 VIT D TOTL (VITAMIN D 25 HYDROXY) CPT-4: 84679 10/15/2014 FREE T4 (ASSAY OF FREE THYROXINE) CPT-4: 15353 10/15/2014 ROUTINE VENIPUNCTURE CPT-4: 12675 06/23/2014 CHEM 14 (COMPREHEN METABOLIC PANEL) CPT-4: 14988 06/23/2014 TSH (ASSAY THYROID STIM HORMONE) CPT-4: 11735 06/23/2014 FREE T4 (ASSAY OF FREE THYROXINE) CPT-4: 24885 06/23/2014 URINALYSIS NONAUTO W/O SCOPE CPT-4: 74366 12/15/2013 ROUTINE VENIPUNCTURE CPT-4: 57890 12/15/2013 THER/PROPH/DIAG INJ SC/IM CPT-4: 46674 11/03/2012 VITAMIN B12 INJECTION CPT-4: J3420 11/03/2012 THER/PROPH/DIAG INJ SC/IM CPT-4: 50764 10/20/2012 VITAMIN B12 INJECTION CPT-4: J3420 10/20/2012 VITAMIN B12 INJECTION CPT-4: J3420 09/11/2012 THER/PROPH/DIAG INJ SC/IM CPT-4: 63005 09/11/2012 THER/PROPH/DIAG INJ SC/IM CPT-4: 93080 08/11/2012 VITAMIN B12 INJECTION CPT-4: J3420 08/11/2012 THER/PROPH/DIAG INJ SC/IM CPT-4: 91512 07/21/2012 VITAMIN B12 INJECTION CPT-4: J3420 07/21/2012 Vital Signs Date Vital 07/08/2018 Blood Pressure 1: 128/70 Code : 8480-6 BMI: 32.4 Code : 58559-1 Heart Rate 1 : 76 bpm Height: 5'6" SpO2: 96% Weight: 201 lbs 02/11/2018 Blood Pressure 1: 122/84 Code : 8480-6 BMI: 32.4 Code : 62261-5 Heart Rate 1 : 71 bpm Height: 5'6" SpO2: 97% Weight: 201 lbs 11/12/2017 Blood Pressure 1: 130/82 Code : 8480-6 BMI: 32.3 Code : 65608-0 Height: 5'6" Weight: 200 lbs 08/20/2017 Blood Pressure 1: 126/78 Code : 8480-6 BMI: 32.3 Code : 01213-5 Heart Rate 1 : 66 bpm Height: 5'6" SpO2: 98% Weight: 200 lbs 06/24/2017 Blood Pressure 1: 134/78 Code : 8480-6 BMI: 34.2 Code : 19935-0 Heart Rate 1 : 71 bpm Height: 5'6" SpO2: 95% Weight: 212 lbs 05/22/2017 Blood Pressure 1: 122/78 Code : 8480-6 BMI: 33.9 Code : 74475-4 Heart Rate 1 : 76 bpm Height: 5'6" SpO2: 97% Weight: 210 lbs 05/10/2017 Blood Pressure 1: 130/84 Code : 8480-6 BMI: 34.1 Code : 42088-8 Heart Rate 1 : 90 bpm Height: 5'6" SpO2: 98% Temperature: 36.9 (C) / 98.5 (F) Weight: 211 lbs 04/08/2017 Blood Pressure 1: 132/78 Code : 8480-6 BMI: 34.4 Code : 68224-0 Heart Rate 1 : 72 bpm Height: 5'6" SpO2: 97% Weight: 213 lbs 02/20/2017 Blood Pressure 1: 130/90 Code : 8480-6 BMI: 33.9 Code : 02587-9 Heart Rate 1 : 74 bpm Height: 5'6" SpO2: 98% Weight: 210 lbs 11/21/2016 Blood Pressure 1: 132/74 Code : 8480-6 BMI: 34.2 Code : 12600-1 Heart Rate 1 : 66 bpm Height: 5'6" SpO2: 97% Weight: 212 lbs 08/29/2016 Blood Pressure 1: 136/82 Code : 8480-6 BMI: 33.7 Code : 10005-4 Heart Rate 1 : 70 bpm Height: 5'6" Respiratory Rate: 18 bpm SpO2: 98% Weight: 209 lbs 07/05/2016 Blood Pressure 1: 142/76 Code : 8480-6 BMI: 33.2 Code : 46041-5 Heart Rate 1 : 73 bpm Height: 5'6" SpO2: 98% Weight: 206 lbs 06/11/2016 Blood Pressure 1: 130/82 Code : 8480-6 BMI: 33.4 Code : 40830-2 Heart Rate 1 : 76 bpm Height: 5'6" SpO2: 97% Weight: 207 lbs 06/04/2016 Blood Pressure 1: 134/80 Code : 8480-6 BMI: 33.4 Code : 93896-8 Heart Rate 1 : 71 bpm Height: 5'6" SpO2: 98% Weight: 207 lbs 04/10/2016 Blood Pressure 1: 124/80 Code : 8480-6 BMI: 34.4 Code : 65755-3 Heart Rate 1 : 76 bpm Height: 5'6" SpO2: 96% Weight: 213 lbs 03/26/2016 Blood Pressure 1: 118/74 Code : 8480-6 BMI: 34.4 Code : 22878-1 Heart Rate 1 : 72 bpm Height: 5'6" SpO2: 98% Weight: 213 lbs 01/23/2016 Blood Pressure 1: 134/76 Code : 8480-6 BMI: 33.7 Code : 82465-8 Heart Rate 1 : 76 bpm Height: 5'6" SpO2: 97% Weight: 209 lbs 12/26/2015 Blood Pressure 1: 116/76 Code : 8480-6 BMI: 33.4 Code : 63616-3 Heart Rate 1 : 78 bpm Height: 5'6" SpO2: 98% Weight: 207 lbs 11/02/2015 Blood Pressure 1: 118/80 Code : 8480-6 BMI: 33.6 Code : 61261-1 Heart Rate 1 : 75 bpm Height: 5'6" SpO2: 95% Weight: 208 lbs 09/13/2015 Blood Pressure 1: 140/82 Code : 8480-6 BMI: 33.6 Code : 23138-5 Heart Rate 1 : 92 bpm Height: 5'6" SpO2: 96% Weight: 208 lbs 09/07/2015 Blood Pressure 1: 140/82 Code : 8480-6 BMI: 33.4 Code : 82219-9 Heart Rate 1 : 85 bpm Height: 5'6" SpO2: 95% Weight: 207 lbs 08/16/2015 Blood Pressure 1: 138/84 Code : 8480-6 BMI: 32.9 Code : 79858-6 Heart Rate 1 : 87 bpm Height: 5'6" SpO2: 97% Weight: 204 lbs 06/13/2015 Blood Pressure 1: 130/82 Code : 8480-6 BMI: 33.1 Code : 28725-8 Heart Rate 1 : 84 bpm Height: 5'6" SpO2: 96% Weight: 205 lbs 05/10/2015 Blood Pressure 1: 118/70 Code : 8480-6 BMI: 32.9 Code : 48639-4 Heart Rate 1 : 77 bpm Height: 5'6" SpO2: 97% Weight: 204 lbs 03/22/2015 Blood Pressure 1: 118/76 Code : 8480-6 BMI: 32.0 Code : 22394-5 Heart Rate 1 : 88 bpm Height: 5'6" Temperature: 36.2 (C) / 97.2 (F) Weight: 198 lbs 01/17/2015 Blood Pressure 1: 120/80 Code : 8480-6 BMI: 32.6 Code : 72570-4 Heart Rate 1 : 88 bpm Height: 5'6" Weight: 202 lbs 11/22/2014 Blood Pressure 1: 118/82 Code : 8480-6 BMI: 31.8 Code : 52782-2 Heart Rate 1 : 72 bpm Height: 5'6" Weight: 197 lbs 10/27/2014 Blood Pressure 1: 130/82 Code : 8480-6 BMI: 32.0 Code : 51263-2 Heart Rate 1 : 86 bpm Height: 5'6" SpO2: 97% Weight: 198 lbs 10/15/2014 Blood Pressure 1: 118/82 Code : 8480-6 BMI: 32.1 Code : 86674-4 Heart Rate 1 : 100 bpm Height: 5'6" Weight: 199 lbs 09/30/2014 Blood Pressure 1: 118/86 Code : 8480-6 BMI: 32.0 Code : 87381-8 Heart Rate 1 : 80 bpm Height: 5'6" Temperature: 35.7 (C) / 96.3 (F) Weight: 198 lbs 07/14/2014 Blood Pressure 1: 116/80 Code : 8480-6 BMI: 32.9 Code : 74587-8 Heart Rate 1 : 80 bpm Height: 5'6" Weight: 204 lbs 06/23/2014 Blood Pressure 1: 128/88 Code : 8480-6 BMI: 33.7 Code : 21821-1 Height: 5'6" Weight: 209 lbs 04/09/2014 Blood Pressure 1: 138/82 Code : 8480-6 Heart Rate 1: 90 bpm SpO2: 97% Temperature: 35.8 (C) / 96.5 (F) Weight: 210 lbs 03/16/2014 Blood Pressure 1: 116/80 Code : 8480-6 BMI: 34.1 Code : 27894-2 Heart Rate 1 : 88 bpm Height: 5'6" Weight: 211 lbs 01/12/2014 Blood Pressure 1: 124/70 Code : 8480-6 BMI: 33.4 Code : 04475-8 Heart Rate 1 : 76 bpm Height: 5'6" Weight: 207 lbs 12/15/2013 Blood Pressure 1: 144/100 Code: 8480-6 Blood Pressure 2: 124/90 Code: 8480-6 Heart Rate 1: 72 bpm Weight: 215 lbs 10/20/2013 Blood Pressure 1: 130/84 Code : 8480-6 BMI: 34.5 Code : 59695-9 Heart Rate 1 : 84 bpm Height: 5'6" Weight: 214 lbs 09/15/2013 Blood Pressure 1: 128/90 Code : 8480-6 BMI: 34.9 Code : 69227-6 Heart Rate 1 : 88 bpm Height: 5'6" Temperature: 36.5 (C) / 97.7 (F) Weight: 216 lbs 07/27/2013 Blood Pressure 1: 138/90 Code : 8480-6 BMI: 34.4 Code : 17065-6 Heart Rate 1 : 88 bpm Height: 5'6" Weight: 213 lbs 06/09/2013 Blood Pressure 1: 138/92 Code : 8480-6 Heart Rate 1: 88 bpm Weight: 04/20/2013 Blood Pressure 1: 142/92 Code : 8480-6 BMI: 34.4 Code : 11515-8 Heart Rate 1 : 88 bpm Height: 5'6" Weight: 213 lbs 03/23/2013 Blood Pressure 1: 116/84 Code : 8480-6 BMI: 34.1 Code : 82939-6 Heart Rate 1 : 76 bpm Height: 5'6" Weight: 211 lbs 01/21/2013 Blood Pressure 1: 130/88 Code : 8480-6 BMI: 34.5 Code : 97691-7 Heart Rate 1 : 80 bpm Height: 5'6" Weight: 214 lbs 12/25/2012 Blood Pressure 1: 112/70 Code : 8480-6 Heart Rate 1: 84 bpm Respiratory Rate : 20 bpm Weight: 214 lbs 8 oz 10/20/2012 Blood Pressure 1: 124/80 Code : 8480-6 BMI: 34.4 Code : 52541-9 Heart Rate 1 : 84 bpm Height: 5'6" Temperature: 36.7 (C) / 98.0 (F) Weight: 213 lbs 08/11/2012 Blood Pressure 1: 116/80 Code : 8480-6 BMI: 33.9 Code : 66339-2 Heart Rate 1 : 76 bpm Height: 5'6" Respiratory Rate: 20 bpm Weight: 210 lbs 07/10/2012 Blood Pressure 1: 110/76 Code : 8480-6 BMI: 46.5 Code : 03116-5 Heart Rate 1 : 84 bpm Height: [...] hypertension Onset and Resolution ongoing 09/30/2014 dr billy increased amlodipine to 10mg daily hypertension Onset [...] of Symptom _ weeks ago 09/30/2014 around Epsom neck pain Location in the lower cervical/ [...] hypertension Onset and Resolution ongoing 07/14/2014 dr billy increased amlodipine to 10mg daily hypertension Onset [...] hypertension Onset and Resolution ongoing 03/16/2014 dr billy increased amlodipine to 10mg daily Raynaud's phenomenon [...] data Encounters Encounter Performer Location Codes Date ( [id number] EST. PATIENT, LEVEL IV Diagnosis: Essential (primary) hypertension[ICD10: I10] Diagnosis: Major depressive disorder, recurrent, moderate[ICD10: F33.1] Diagnosis: Generalized anxiety disorder[ICD10: F41.1] Caty Ledesma MD, [facility] CPT-4: 40792 07/08/2018 ([id number]) 68321 EST. 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 PATIENT, LEVEL IV Diagnosis: Nontoxic multinodular goiter[ICD10: E04.2] Diagnosis: Major depressive disorder, recurrent, moderate[ICD10: F33.1] Diagnosis: Generalized anxiety disorder[ICD10: F41.1] Diagnosis: Essential (primary) hypertension[ICD10: I10] Caty Ledesma MD, [facility] CPT-4: 63270 08/20/2017 ([id number]) 86959 EST. PATIENT, LEVEL III Diagnosis: Acute recurrent maxillary sinusitis[ICD10: J01.01] Diagnosis: Encounter for other preprocedural examination[ICD10: Z01.818] Mira Ledesma MD, [facility] CPT-4: 04867 06/24/2017 ([id number]) 67551 EST. PATIENT, LEVEL IV Diagnosis: Acute recurrent frontal sinusitis[ICD10: J01.11] Diagnosis: Type 2 diabetes mellitus without complications[ICD10: E11.9] Diagnosis: Essential (primary) hypertension[ICD10: I10] Caty Ledesma MD, [facility] CPT-4: 48329 05/22/2017 ([id number]) 43297 EST. PATIENT, LEVEL III Diagnosis: Acute recurrent maxillary sinusitis[ICD10: J01.01] Diagnosis: Cough[ICD10: R05] Mira Ledesma MD, [facility] CPT-4: 65470 05/10/2017 ([id number]) 80896 EST. PATIENT, LEVEL IV Diagnosis: Generalized anxiety disorder[ICD10: F41.1] Diagnosis: Muscle weakness (generalized)[ICD10: M62.81] Diagnosis: Somnolence[ICD10: R40.0] Diagnosis: Snoring[ICD10: R06.83] Caty Ledesma MD, [facility] CPT-4: 92523 04/08/2017 ([id number]) 65600 EST. PATIENT, LEVEL IV Diagnosis: Vitamin deficiency, unspecified[ICD10: E56.9] Diagnosis: Major depressive disorder, recurrent, moderate[ICD10: F33.1] Diagnosis: Generalized anxiety disorder[ICD10: F41.1] Diagnosis: Impaired fasting glucose[ICD10: R73.01] Diagnosis: Chronic migraine without aura, not intractable, without status migrainosus[ICD10: G43.709] Diagnosis: Essential (primary) hypertension[ICD10: I10] Diagnosis: Mixed hyperlipidemia[ICD10: E78.2] Diagnosis: Nontoxic multinodular goiter[ICD10: E04.2] Caty Ledesma MD, [facility] CPT-4: 33135 02/20/2017 ([id number]) 70781 EST. PATIENT, LEVEL IV Diagnosis: Generalized anxiety disorder[ICD10: F41.1] Diagnosis: Major depressive disorder, recurrent, moderate[ICD10: F33.1] Diagnosis: Chronic pain syndrome[ICD10: G89.4] Diagnosis: Other specified polyneuropathies[ICD10: G62.89] Diagnosis: Muscle weakness (generalized)[ICD10: M62.81] Diagnosis: Essential (primary) hypertension[ICD10: I10] Caty Ledesma MD, [facility] CPT-4: 46104 11/21/2016 ([id number]) 33881 EST. PATIENT, LEVEL III Diagnosis: Generalized abdominal pain[ICD10: R10.84] Diagnosis: Essential (primary) hypertension[ICD10: I10] Caty Ledesma MD, [facility] CPT-4: 92391 08/29/2016 ([id number]) 03155 EST. PATIENT, LEVEL III Diagnosis: Epigastric pain[ICD10: R10.13] Caty Ledesma MD, [facility] CPT- 4: 65487 07/05/2016 ([id number]) 31274 EST. PATIENT, LEVEL III Diagnosis: Toxic gastroenteritis and colitis[ICD10: K52.1] Caty Ledesma MD, [facility] CPT-4: 04248 06/11/2016 47669 EST. PATIENT, LEVEL III Diagnosis: Left upper quadrant pain[ICD10: R10.12] Estrella Ledesma MD, [facility] CPT-4: 97846 06/04/2016 ([id number]) 13189 EST. PATIENT, LEVEL III Diagnosis: Cellulitis of left toe[ICD10: L03.032] Mira Ledesma MD, [facility] CPT-4: 42934 04/10/2016 ([id number]) 87795 EST. PATIENT, LEVEL III Diagnosis: Essential (primary) hypertension[ICD10: I10] Diagnosis: Chronic pain syndrome[ICD10: G89.4] Diagnosis: Other fatigue[ICD10: R53.83] Caty Ledesma MD [facility] CPT- 4: 91200 03/26/2016 ([id number]) 39314 EST. PATIENT, LEVEL III Diagnosis: Gastro-esophageal reflux disease without esophagitis[ICD10: K21.9] MARYAM Clark MD CPT-4: 48035 01/23/2016 ([id number]) 97641 EST. PATIENT, LEVEL IV Diagnosis: Type 2 diabetes mellitus without complications[ICD10: E11.9] Diagnosis: Gastro-esophageal reflux disease without esophagitis[ICD10: K21.9] Diagnosis: Functional diarrhea[ICD10: K59.1] Caty Ledesma MD [facility] CPT-4: 02611 12/26/2015 49089 EST. PATIENT, LEVEL IV Diagnosis: Other seasonal allergic rhinitis[ICD10: J30.2] Diagnosis: Acute recurrent maxillary sinusitis[ICD10: J01.01] Diagnosis: Cough[ICD10: R05] Estrella Ledesma MD [facility] CPT-4: 35801 11/02/2015 32823 EST. PATIENT, LEVEL III Diagnosis: Acute recurrent maxillary sinusitis[ICD10: J01.01] Diagnosis: Urgency of urination[ICD10: R39.15] Diagnosis: Cough[ICD10: R05] Diagnosis: Acute laryngopharyngitis[ICD10: J06.0] Estrella Ledesma MD [facility] CPT-4: 21723 09/13/2015 70706 EST. PATIENT, LEVEL IV Diagnosis: Pain in left lower leg[ICD10: M79.662] Diagnosis: Cramp and spasm[ICD10: R25.2] Diagnosis: Acute nasopharyngitis [common cold][ICD10: J00] Estrella Ledesma MD, [facility] CPT-4: 32731 09/07/2015 ([id number]) 68695 EST. PATIENT, LEVEL IV Diagnosis: Essential (primary) hypertension[ICD10: I10] Diagnosis: Type 2 diabetes mellitus without complications[ICD10: E11.9] Diagnosis: Varicose veins of unspecified lower extremities with other complications[ICD10: I83.899] Caty Ledesma MD, [facility] CPT-4: 33840 08/16/2015 ([id number]) 84341 EST. PATIENT, LEVEL IV Diagnosis: Type 2 diabetes mellitus without complications[ICD10: E11.9] Diagnosis: Other mixed anxiety disorders[ICD10: F41.3] Diagnosis: Vitamin deficiency, unspecified[ICD10: E56.9] Diagnosis: Essential (primary) hypertension[ICD10: I10] Caty Ledesma MD [facility] CPT-4: 23307 06/13/2015 ([id number]) 80998 EST. PATIENT, LEVEL IV Diagnosis: ESSENTIAL HYPERTENSION[ICD9: 401.9] Diagnosis: CHRONIC PAIN SYNDROME[ICD9: 338.4] Caty Ledesma MD [facility] CPT-4: 33260 05/10/2015 ([id number]) 48463 EST. PATIENT, LEVEL III Diagnosis: Back pain[ICD9: 724.5] Diagnosis: URINARY FREQUENCY[ICD9: 788.41] Caty Ledesma MD [facility] CPT- 4: 08055 03/22/2015 ([id number]) 46605 EST. PATIENT, LEVEL IV Diagnosis: ESSENTIAL HYPERTENSION[ICD9: 401.9] Diagnosis: DIABETES TYPE II[ICD9: 250.00] Diagnosis: Varicose vein[ICD9: 454.9] Caty Ledesma MD [facility] CPT- 4: 14760 01/17/2015 ([id number]) 60505 EST. PATIENT, LEVEL IV Diagnosis: HEADACHE[ICD9: 784.0] Diagnosis: Neck pain[ICD9: 723.1] Diagnosis: Vision changes[ICD9: 368.9] Diagnosis: Nausea[ICD9: 787.02] Mira Ledesma MD, [facility] CPT-4: 47385 11/22/2014 ([id number]) 17760 EST. PATIENT, LEVEL I Diagnosis: Meningitis exposure[ICD9: V01.89] Caty Ledesma MD [facility] CPT-4: 38205 11/11/2014 ([id number]) 74003 EST. PATIENT, LEVEL IV Diagnosis: Elevated blood sugar[ICD9: 790.29] Diagnosis: ESSENTIAL HYPERTENSION[ICD9: 401.9] Caty Ledesma MD [facility] CPT-4: 51833 10/27/2014 ([id number]) 12599 EST. PATIENT, LEVEL IV Diagnosis: Costochondritis[ICD9: 733.6] Diagnosis: ALLERGIC RHINITIS[ICD9: 477.9] Diagnosis: Vitamin D deficiency[ICD9: 268.9] Diagnosis: Elevated blood sugar[ICD9: 790.29] Mira Ledesma MD, [facility] CPT-4: 75992 10/15/2014 ([id number]) 34474 EST. PATIENT, LEVEL IV Diagnosis: ESSENTIAL HYPERTENSION[ICD9: 401.9] Diagnosis: Diarrhea[ICD9: 787.91] Caty Ledesma MD, [facility] CPT-4: 75042 09/30/2014 ([id number]) 48287 EST. PATIENT, LEVEL IV Diagnosis: Raynauds disease[ICD9: 443.0] Diagnosis: Nausea[ICD9: 787.02] Diagnosis: ESSENTIAL HYPERTENSION[ICD9: 401.9] Caty Ledesma MD, [facility] CPT-4: 98255 07/14/2014 ([id number]) 90561 EST. PATIENT, LEVEL IV Diagnosis: ESSENTIAL HYPERTENSION[ICD9: 401.9] Diagnosis: Esophageal reflux[ICD9: 530.81] Diagnosis: Hyponatremia[ICD9: 276.1] Diagnosis: OBESITY[ICD9: 278.00] Diagnosis: Chronic migraine[ICD9: 346.70] Caty Ledesma MD, [facility] CPT- 4: 14551 06/23/2014 ([id number]) 18257 EST. PATIENT, LEVEL IV Diagnosis: ESSENTIAL HYPERTENSION[ICD9: 401.9] Diagnosis: GERD (gastroesophageal reflux disease)[ICD9: 530.81] Diagnosis: Costochondritis[ICD9: 733.6] Mira Ledesma MD, [facility] CPT-4: 67708 04/09/2014 ([id number]) 22921 EST. PATIENT, LEVEL IV Diagnosis: ESSENTIAL HYPERTENSION[ICD9: 401.9] Diagnosis: RAYNAUD'S SYNDROME[ICD9: 443.0] Caty Ledesma MD, [facility] CPT- 4: 34670 03/16/2014 ([id number]) 24333 EST. PATIENT, LEVEL III Diagnosis: ESSENTIAL HYPERTENSION[SNOMED: 90480691] Diagnosis: ALLERGIC RHINITIS[ICD9: 477.9] Diagnosis: Knee pain[ICD9: 719.46] Caty Ledesma MD [facility] CPT-4: 46192 01/12/2014 ([id number]) 14350 EST. PATIENT, LEVEL IV Diagnosis: ALLERGIC RHINITIS[ICD9: 477.9] Diagnosis: ESSENTIAL HYPERTENSION[SNOMED: 59797190] Diagnosis: Fatigue[ICD9: 780.79] Caty Ledesma MD [facility] CPT-4: 03142 12/15/2013 ([id number]) 53848 EST. PATIENT, LEVEL III Diagnosis: ESSENTIAL HYPERTENSION[SNOMED: 27386525] Diagnosis: Skin lesion[ICD9: 709.9] Diagnosis: Raynauds disease[ICD9: 443.0] Caty Ledesma MD [facility] CPT- 4: 97526 10/20/2013 ([id number]) 09845 EST. PATIENT, LEVEL III Diagnosis: ACUTE SINUSITIS[ICD9: 461.9] Caty Ledesma MD [facility] CPT- 4: 11709 09/15/2013 ([id number]) 00566 EST. PATIENT, LEVEL IV Diagnosis: ESSENTIAL HYPERTENSION[SNOMED: 92413404] Diagnosis: Peripheral neuropathy[ICD9: 356.9] Diagnosis: Vitamin D deficiency[ICD9: 268.9] Diagnosis: Vitamin B12 deficiency[ICD9: 266.2] Caty Ledesma MD [facility] CPT-4: 46132 07/27/2013 ([id number]) 16529 EST. PATIENT, LEVEL III Diagnosis: ACUTE SINUSITIS[ICD9: 461.9] Diagnosis: COUGH[ICD9: 786.2] Mira Ledesma MD, [facility] CPT-4: 81892 06/09/2013 18460 EST. PATIENT, LEVEL IV Diagnosis: HEADACHE[ICD9: 784.0] Diagnosis: Dysphagia[ICD9: 787.20] Diagnosis: Esophageal reflux[ICD9: 530.81] Caty Ledesma MD [facility] CPT- 4: 17138 04/20/2013 ([id number]) 70103 EST. PATIENT, LEVEL IV Diagnosis: Seasonal allergic rhinitis[ICD9: 477.9] Diagnosis: HEADACHE[ICD9: 784.0] Diagnosis: ESSENTIAL HYPERTENSION[SNOMED: 77843174] [facility] CPT-4: 70859 03/23/2013 ([id number]) 41707 EST. PATIENT, LEVEL III Diagnosis: ABNORMALITY OF GAIT[ICD9: 781.2] Diagnosis: B-COMPLEX DEFIC NEC[ICD9: 266.2] [facility] CPT-4: 47247 01/21/2013 ([id number]) 56105 EST. PATIENT, LEVEL IV Diagnosis: ESSENTIAL HYPERTENSION[SNOMED: 17599001] Diagnosis: Breast pain[ICD9: 611.71] [facility] CPT-4: 98222 12/25/2012 ([id number]) 98320 EST. PATIENT, LEVEL III Diagnosis: ESSENTIAL HYPERTENSION[SNOMED: 28844771] Diagnosis: ACUTE URI[ICD9: 465.9] [facility] CPT-4: 35781 10/20/2012 ([id number]) 94488 EST. PATIENT, LEVEL IV Diagnosis: B-COMPLEX DEFIC NEC[ICD9: 266.2] Diagnosis: ESSENTIAL HYPERTENSION[SNOMED: 79014904] Diagnosis: Gait instability[ICD9: 781.2] Diagnosis: Back pain[ICD9: 724.5] [facility] CPT-4: 68528 08/11/2012 OFFICE VISIT, NEW - LEVEL 4 Diagnosis: ESSENTIAL HYPERTENSION[SNOMED: 24811420] Diagnosis: ACUTE SINUSITIS[ICD9: 461.9] Diagnosis: Gait instability[ICD9: 781.2] Diagnosis: Weakness of both legs[ICD9: 729.89] [facility] CPT-4: 37843 07/10/2012 Plan of Care Planned Activity Notes Codes Status Date Patient Education: Patient Medication Summary Completed 07/09/2018 Care Plan: SCREENINGMAMMOGRAPHYDIGITAL LOINC : 17922-3 Pending 07/09/2018 Appointment: Caty Ledesma WPtel: [address] [place], [place] [phone] (15 min) Moderate 07/08/2018 Patient Education: Patient Medication Summary Completed 07/08/2018 Patient Education: Hypertension Completed 07/08/2018 Patient Education: Depression Completed 07/08/2018 Appointment: Injection 06/05/2018 Patient Education: Patient Medication Summary Completed 06/05/2018 [facility]ment[facility] [phone] [facility] [place] ([facility] min) Moderate 02/11/2018 Patient Education: Patient Medication Summary Completed 02/11/2018 Care Plan: ECHO EXAMINATION PROCEDURE Pending 02/11/2018 Appointment: [facility] [phone] [facility] [place] (15 min) Moderate 11/12/2017 Patient Education: Patient Medication Summary Completed 11/12/2017 Appointment: [facility] [phone] [facility] [place] (15 min) Moderate 08/20/2017 Patient Education: Patient Medication Summary Completed 08/20/2017 Patient Education: Obesity Completed 08/20/2017 Patient Education: Hypertension Completed 08/20/2017 Care Plan: ECHO EXAMINATION PROCEDURE Pending 08/20/2017 Appointment: [phone] [phone] [place] (30 min) Complex 06/24/2017 Patient Education: Patient Medication Summary Completed 06/24/2017 Appointment: Injection 06/19/2017 Patient Education: Patient Medication Summary Completed 06/19/2017 Appointment: [facility] [phone] [facility] [place] (15 min) Moderate 05/22/2017 Patient Education: Patient Medication Summary Completed 05/22/2017 Appointment: [facility] Valladares [facility] [phone] [facility] [phone] [place] (15 min) Moderate 05/10/2017 Patient Education: Patient Medication Summary Completed 05/10/2017 Appointment: [facility] [phone] [facility] [place] (15 min) Moderate 04/08/2017 Patient Education: Patient Medication Summary Completed 04/08/2017 Appointment: [facility] [phone] [facility] (30 min) Complex 02/20/2017 Patient Education: Patient Medication Summary Completed 02/20/2017 Patient Education: Obesity Completed 02/20/2017 Appointment: Caty Ledesma WPtel: [phone] [facility] (15 min) Moderate 11/21/2016 Patient Education: Patient Medication Summary Completed 11/21/2016 Patient Education: Hypertension Completed 11/21/2016 Appointment: Caty Ledesma WPtel: [phone] [facility] (30 min) Complex 08/29/2016 Patient Education: Patient Medication Summary Completed 08/29/2016 Patient Education: Hypertension Completed 08/29/2016 Appointment: Caty Ledesma WPtel: [phone] [facility] (15 min) Moderate 07/05/2016 Patient Education: Patient Medication Summary Completed 07/05/2016 Patient Education: Obesity Completed 07/05/2016 Patient Education: Patient Medication Summary Completed 06/11/2016 Patient Education: Obesity Completed 06/11/2016 Appointment: Est[facility]ynum [facility] [phone] [facility] [place] (15 min) Moderate 06/04/2016 Patient Education: Patient Medication Summary Completed 06/04/2016 Patient Education: Obesity Completed 06/04/2016 Care Plan: Comp Metabolic Ordered 06/04/2016 Care Plan: Amylase Ordered 06/04/2016 Care Plan: Lipase Ordered 06/04/2016 Care Plan: Cbc With Differential Ordered 06/04/2016 Appointment: Mira Valladares [facility] [phone] [facility] [phone] [place] (30 min) Complex 04/10/2016 Patient Education: Patient Medication Summary Completed 04/10/2016 Patient Education: Patient Medication Summary Completed 03/26/2016 Patient Education: Hypertension Completed 03/26/2016 Patient Education: Patient Medication Summary Completed 01/23/2016 Patient Education: Obesity Completed 01/23/2016 Patient Education: Patient Medication Summary Completed 12/26/2015 Patient Education: Obesity Completed 12/26/2015 Care Plan: Referral Order SNOMED-CT : [id number] Pending 12/26/2015 Appointment: Caty Ledesma WPtel: [address] [place], [place] [phone] (15 min) Moderate 12/19/2015 Patient Education: Patient Medication Summary Completed 11/02/2015 Patient Education: Patient Medication Summary Completed 09/13/2015 Patient Education: Patient Medication Summary Completed 09/08/2015 Appointment: (30 min) Complex 09/07/2015 Patient Education: Patient Medication Summary Completed 09/07/2015 Patient Education: Patient Medication Summary Completed 08/16/2015 Patient Education: Hypertension Completed 08/16/2015 Patient Education: Patient Medication Summary Completed 06/13/2015 Patient Education: Hypertension Completed 06/13/2015 Appointment: Caty Ledesma WPtel: [address] [place], [place] [phone] Follow up 05/10/2015 Patient Education: Patient Medication Summary Completed 05/10/2015 Patient Education: Hypertension Completed 05/10/2015 Appointment: Injection 03/30/2015 Patient Education: Patient Medication Summary Completed 03/30/2015 Appointment: (15 min) Moderate 03/22/2015 Patient Education: Patient Medication Summary Completed 03/22/2015 Appointment: Caty Ledesma WPtel: [address] [place], [place] [phone] Follow up 01/17/2015 Patient Education: Patient Medication Summary Completed 01/17/2015 Patient Education: Hypertension Completed 01/17/2015 Care Plan: Referral Order referral to [facility] for varicose veins - need to see if the patient can have her ultrasound studies HERE with [employer] SNOMED-CT : [id number] Ordered 01/17/2015 Appointment: Caty Ledesma WPtel: [address] [place], [place] [phone] [place] Follow up 01/04/2015 Patient Education: Patient Medication Summary Completed 11/22/2014 Patient Education: .Cervicalgia Neck Pain Completed 11/22/2014 Patient Education: Patient Medication Summary Completed 11/11/2014 Appointment: Caty Ledesma WPtel: [address] [place], [place] [phone] [place] Follow up 10/27/2014 Patient Education: Patient Medication Summary Completed 10/27/2014 Patient Education: Hypertension Completed 10/27/2014 Appointment: Follow up 10/15/2014 Patient Education: Patient Medication Summary Completed 10/15/2014 Care Plan: TSH Pending 10/15/2014 Care Plan[facility] Pending 10/15/2014 Care Plan: VIT D TOTL Pending 10/15/2014 Appointment: Caty Ledesma WPtel: [address] [place], [place] [phone] Follow up 09/30/2014 Patient Education: Patient Medication Summary Completed 09/30/2014 Patient Education: Hypertension Completed 09/30/2014 Appointment: Caty Ledesma WPtel: [address] [place], [place] [phone] Follow up 09/29/2014 Appointment: Caty Ledesma WPtel: [address] [place], [place] [phone] Follow up 07/14/2014 Patient Education: Patient Medication Summary Completed 07/14/2014 Patient Education: Hypertension Completed 07/14/2014 Appointment: Caty Ledesma WPtel: [address] [place], [place] [phone] Follow up 06/23/2014 Patient Education: Patient Medication Summary Completed 06/23/2014 Patient Education: Hypertension Completed 06/23/2014 Appointment: Sick 04/09/2014 Patient Education: Patient Medication Summary Completed 04/09/2014 Patient Education: Hypertension Completed 04/09/2014 Appointment: Caty Ledesma WPtel: [address] [place], [place] [phone] Follow up 03/16/2014 Patient Education: Patient Medication Summary Completed 03/16/2014 Patient Education: Hypertension Completed 03/16/2014 Appointment: Caty Ledesma WPtel: [address] [place], [place] [phone] Follow up 01/12/2014 Patient Education: Patient Medication Summary Completed 01/12/2014 Patient Education: Hypertension Completed 01/12/2014 Appointment: Mira Valladares WPtel: [address] [place] [phone] Follow up 12/15/2013 Patient Education: Patient Medication Summary Completed 12/15/2013 Patient Education: Hypertension Completed 12/15/2013 Appointment: Caty Ledesma [facility]Ptel[facility] Follow up 10/20/2013 Patient Education: Patient Medication Summary Completed 10/20/2013 Patient Education: Hypertension Completed 10/20/2013 Appointment: Caty Ledesma WPtel: [address] [place], [place] [phone] Sick 09/15/2013 Patient Education: Patient Medication Summary Completed 09/15/2013 Appointment: Caty Ledesma WPtel: [address] [place], [place] [phone] Follow up 07/27/2013 Patient Education: Patient Medication Summary Completed 07/27/2013 Patient Education: Hypertension Completed 07/27/2013 Appointment: Mira Valladares WPtel: [phone] Sick 06/09/2013 Patient Education: Patient Medication Summary Completed 06/09/2013 Appointment: Mira Valladares WPtel: [phone] Other 04/20/2013 Patient Education: Patient Medication Summary Completed 04/20/2013 Appointment: Caty Ledesma WPtel: [facility] Follow up 03/23/2013 Patient Education: Patient Medication Summary Completed 03/23/2013 Patient Education: Hypertension Completed 03/23/2013 Appointment: Caty Ledesma WPtel: [address] [place], [place] [phone] Follow up 01/21/2013 Patient Education: Patient Medication Summary Completed 01/21/2013 Appointment: Caty Ledesma WPtel: [address] [place], [place] [phone] Follow up 12/25/2012 Patient Education: Patient Medication Summary Completed 12/25/2012 Patient Education: Hypertension Completed 12/25/2012 Patient Education: Patient Medication Summary Completed 11/03/2012 Appointment: [facility] Led[facility] [phone] [facility] [place] Follow up 10/20/2012 Patient Education: Patient Medication Summary Completed 10/20/2012 Patient Education: Hypertension Completed 10/20/2012 Appointment: [facility] [phone] [facility] [place] Injection 09/11/2012 Patient Education: Patient Medication Summary Completed 09/11/2012 Appointment: [facility] Led[facility] [phone] [facility] [place] Injection 08/18/2012 Appointment: Cat[facility] Led[facility]ma [facility] [phone] [facility] [place] Follow up 08/11/2012 Patient Education: Patient Medication Summary Completed 08/11/2012 Patient Education: Hypertension Completed 08/11/2012 Appointment: [facility] Led[facility] [phone] [facility] [place] Injection 07/21/2012 Patient Education: Patient Medication Summary Completed 07/21/2012 Appointment: Mria Valladares [phone] [phone] [place] New Patient 07/10/2012 Patient Education: Patient Medication Summary Completed 07/10/2012 Patient Education: High Blood Pressure: Essential Hypertension Completed 2011 Referral: Blaise Aburto Info. faxed Completed Referral: Blaise Aburto Referral Appointment Requested Referral: [facility], - Referral Appointment Requested Instructions No Instructions
[2019-01-07] MEDS ORDERED: VERAPAMIL 5 MG/2 ML (CALAN) VIAL IV ONE ×2 (08:49→09:45)
[2019-01-07] MEDS ORDERED: NITRO DRIP 25000 MCG/D5W 250 ML IV ONE (08:49)
[2019-01-07] MEDS ORDERED: HEParin 1000 UNIT/ML (10ML VIAL) FOR BOLUS ONE (08:49)
--- OUTSIDE RECORDS SUMMARY | 2019-01-07 08:52 | XMS REPORT | CCD ---
Author Author Mira Valladares Organization [facility] Address [address] [place] [address] Phone Care Team Providers Care Recruitment And Outreach Assistant Name Role Phone PP Unavailable CCM Unavailable Summary Purpose Interface Exchange Insurance Providers Payer name Policy type / Coverage type Covered libertarian ID Effective Begin Date Effective End Date [facility] Commercial Insurance [id number] 2013 Unknown WPS Medicare Part B Commercial Insurance [id number] 2013 Unknown Family history Daughter Diagnosis Age [...] status Unknown 03/26/[address]: 9586546 Former smoker quit 1979 03/26/2016 Number of children Unknown 3 07/10/[address]: 674364614 Never drinks alcohol 07/10/2012 Has the patient ever used illegal drugs? Unknown Has never used illegal drugs 07/10/2012 Allergies, Adverse Reactions, Alerts Substance Reaction Codes Entered Date Inactivated Date Status cymbalta RxNorm: 572206 07/14/2012 No Inactive Date Active Savella nausea RxNorm: 387613 07/14/2012 No Inactive Date Active Metanx nausea RxNorm: 608173 07/14/2012 No Inactive Date Active Gluten Unknown 07/10/2012 No Inactive Date Active Peanuts Unknown 07/10/2012 No Inactive Date Active Levaquin hives RxNorm: 91704 07/14/2012 No Inactive Date Active macrobid pruritis, hives, RxNorm: 513297 07/14/2012 No Inactive Date Active percocet pruritis RxNorm: 837712 07/14/2012 No Inactive Date Active PREDNISONE pruritis, RxNorm: 8640 07/14/2012 No Inactive Date Active ultram pruritis, hives RxNorm: 44282 06/11/2016 No Inactive Date Active GABAPENTIN nausea, Unknown 07/14/2012 No Inactive Date Active Past Medical History Illness Codes Condition Status Onset Date Resolved Date Essential (primary) hypertension ICD-9: 401.1 ICD-10: I10 Active 02/11/2018 Unknown Mixed hyperlipidemia ICD-9: 272.2 ICD-10: E78.2 Active 02/20/2017 Unknown 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 ICD-10: E04.2 Active 02/20/2017 Unknown Essential (primary) hypertension ICD-9: 401.9 ICD-10: I10 Active 03/16/2014 Unknown Other fatigue ICD-9: 780.79 ICD-10: R53.83 Active 12/15/2013 Unknown Generalized anxiety disorder ICD-9: 300.00 ICD-10: F41.1 Active 11/21/2016 Unknown Major depressive disorder, recurrent, moderate ICD-9: 296.32 ICD-10: F33.1 Active 11/21/2016 Unknown Acute recurrent maxillary sinusitis ICD-9: 461.0 [...] hyperlipidemia ICD-9: 272.2 ICD-10: E78.2 02/20/2017 Active 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 ICD-10: E04.2 02/20/2017 Active Essential (primary) hypertension ICD-9: 401.9 ICD-10: I10 03/16/2014 Active Other fatigue ICD-9: 780.79 ICD-10: R53.83 12/15/2013 Active Generalized anxiety disorder ICD-9: 300.00 ICD-10: F41.1 11/21/2016 Active Major depressive disorder, recurrent, moderate ICD-9: 296.32 ICD-10: F33.1 11/21/2016 Active Acute recurrent maxillary sinusitis ICD-9: 461.0 [...] Start Date Stop Date Status Fill Instructions Valium 5 mg tablet RxNorm: 071908 1 Tablet(s) PO PRN as needed 02/21/2018 No Stop Date Active Valium 5 mg tablet RxNorm: 906964 1 Tablet(s) PO PRN as needed 11/12/2017 02/20/2018 Inactive Synthroid 25 mcg tablet RxNorm: 736497 1 Tablet(s) PO daily 02/201811/11/2017 Inactive Synthroid 25 mcg tablet RxNorm: 805250 1 Tablet(s) PO daily 02/201802/10/2018 Inactive Nitro-Bid 2 % transdermal ointment RxNorm: 813169 APPLY TO AFFECTED AREA(S) TOPICALLY THREE TIMES A DAY NEEDED FOR RAYNAUDS SYMPTOMS OF FEET 08/26/2017 10/24/2017 Inactive Vitamin B-12 1,000 mcg/mL injection solution RxNorm: 779388 INJECT 1ML INTRAMUSCULARLY ONCE WEEKLY 08/23/2017 09/ Active Request already responded to by other means (e.g. phone or fax) Vitamin B-12 1,000 mcg/mL injection solution RxNorm: 602062 Milliliter(s) INJECT 1ML INTRAMUSCULARLY ONCE WEEKLY 08/21/2017 08/22/2017 Inactive naproxen sodium 550 mg tablet RxNorm: 093903 TAKE 1 TABLET BY MOUTH TWO TIMES DAILY 08/09/2017 11/06/2017 Inactive - Ref: [id number] Combivent Respimat 20 mcg-100 mcg/actuation solution for inhalation RxNorm: 3787111 1-2 Puff(s) INH Q4 PRN 07/26/2017 No Stop Date Active Valium 5 mg tablet RxNorm: 543971 1 Tablet(s) PO PRN as needed 06/27/2017 11/11/2017 Inactive doxycycline hyclate 100 mg tablet RxNorm: 722713 1 Tablet(s) PO BID 06/24/2017 06/30/2017 Inactive azithromycin 250 mg tablet RxNorm: 150809 1 Tablet(s) PO UD 2 tabs on day #1, then 1 pill daily x 4 more days 05/22/2017 08/20/2017 Inactive hydrocodone 10 mg-chlorpheniramine 8 mg/5 mL oral susp extend.rel 12hr RxNorm: 1746315 5 PO as needed 05/10/2017 No Stop Date Active Augmentin 875 mg-125 mg tablet RxNorm: 370186 1 Tablet(s) PO BID 05/10/2017 05/16/2017 Inactive folic acid 1 mg tablet RxNorm: 903780 TAKE ONE TABLET BY MOUTH EVERY DAY 05/09/2017 05/03/2018 Active Carafate 1 gram tablet RxNorm: 032019 TAKE ONE TABLET BY MOUTH FOUR TIMES A DAY 30 MINUTES BEFORE MEALS AND AT BEDTIME 03/18/2017 07/15/2017 Inactive scopolamine 1.5 mg transdermal patch (1 mg over 3 days) RxNorm: 961678 1 Patch TD Q72H use for sea sickness 02/20/201703/05 Inactive Pristiq 50 mg tablet,extended release RxNorm: 672493 1 Tablet(s) PO daily 01/15/2017 01/09/2018 Inactive Pristiq 50 mg tablet,extended release RxNorm: 295878 1 Tablet(s) PO BID 12/20/2016 01/14/2017 Inactive naproxen sodium 550 mg tablet RxNorm: 633320 Tablet(s) Take 1 tablet by mouth twice a day 11/14/2016 08/08/2017 Inactive Harper Alba Lancets 33 gauge RxNorm: TEST TWO TIMES A DAY 11/12/2016 04/10/2017 Inactive Phenergan VC-Codeine 6.25 mg-5 mg-10 mg/5 mL syrup RxNorm: 787743 5 Milliliter(s) PO Q6 as needed cough 09/06/20162016 Inactive Nitro-Bid 2 % transdermal ointment RxNorm: 824508 APPLY TO AFFECTED AREA(S) TOPICALLY THREE TIMES A DAY NEEDED FOR RAYNAUDS SYMPTOMS OF FEET 08/21/2016 10/19/2016 Inactive Voltaren 1 % topical gel RxNorm: 965491 APPLY 2 GRAMS TOPICALLY FOUR TIMES A DAY 08/21/2016 12/22/2016 Inactive Vitamin B-12 1,000 mcg/mL injection solution RxNorm: 759026 INJECT 1ML INTRAMUSCULARLY ONCE WEEKLY 08/21/2016 Inactive folic acid 1 mg tablet RxNorm: 732718 TAKE ONE TABLET BY MOUTH EVERY DAY 08/13/2016 04/09/2017 Inactive Flagyl 500 mg tablet RxNorm: 739417 1 Tablet(s) PO TID 201506/22/2016 Inactive Cholestyramine Light 4 gram oral powder RxNorm: 195768 1 packet PO PRN as needed 06/11/2016 No Stop Date Active Vagifem 10 mcg vaginal tablet RxNorm: 104594 1 Tablet(s) VAG BIW -TIW 06/11/2016 No Stop Date Active Flexeril 10 mg tablet RxNorm: 875547 1 Tablet(s) PO as needed 02/19/2017 Inactive 1 hs Flagyl 500 mg tablet RxNorm: 575372 1 Tablet(s) PO TID 201506/10/2016 Inactive Lomotil 2.5 mg-0.025 mg tablet RxNorm: 3542139 1 Tablet(s) PO AC & HS as needed 04/24/2016 05/23/2016 Inactive Keflex 500 mg capsule RxNorm: 538358 1 Capsule(s) PO TID 201504/11/2016 Inactive Keflex 500 mg capsule RxNorm: 228897 1 Capsule(s) PO TID 201504/18/2016 Inactive Pristiq 50 mg tablet,extended release RxNorm: 351621 1 Tablet(s) PO QAM 03/30/2016 12/19/2016 Inactive amitriptyline 25 mg tablet RxNorm: 741607 1/2 Tablet(s) PO QHS x [address] pablo 03/30/2016 06/10/2016 Inactive potassium chloride 20 mEq/15 mL oral liquid RxNorm: 751033 TAKE 2 TABLESPOONS DAILY 03/23/2016 09/18/2016 Inactive Glucocard Vital Sensor strips RxNorm: TEST TWO TIMES A DAY 10/17/2017 Inactive Questran 4 gram oral powder RxNorm: 951039 1 dose PO daily 04/201602/14/2016 Inactive Questran 4 gram oral powder RxNorm: 404265 1 dose PO daily 04/201603/15/2016 Inactive Miralax 17 gram oral powder packet RxNorm: 034194 1 PO daily 02/08/2016 Inactive Miralax 17 gram oral powder packet RxNorm: 280977 1 PO daily 06/10/2016 Inactive Carafate 1 gram tablet RxNorm: 206769 1 Tablet(s) PO QID take 30 minutes before meals and at bedtime 01/23/20162015 Inactive Vitamin D2 50,000 unit capsule RxNorm: 591624 1 Capsule(s) PO QW 12/26/2015 03/24/2016 Inactive Tamiflu 75 mg capsule RxNorm: 760326 1 Capsule(s) PO daily 11/2111/21/2015 Inactive Tamiflu 75 mg capsule RxNorm: 812412 1 Capsule(s) PO daily 11/2112/01/2015 Inactive folic acid 1 mg tablet RxNorm: 281081 TAKE ONE TABLET BY MOUTH EVERY DAY 11/03/2015 07/29/2016 Inactive Keflex 500 mg capsule RxNorm: 809119 1 Capsule(s) PO TID 201511/11/2015 Inactive Augmentin 500 mg-125 mg tablet RxNorm: 737461 1 Tablet(s) PO TID 09/13/2015 09/22/2015 Inactive Zithromax Z-Juanpablo 250 mg tablet RxNorm: 133360 1 Tablet(s) PO 12/25/2015 Inactive Harper Alba Lancets 33 gauge RxNorm: 1 test Miscellaneous BID 06/21/2015 06/14/2016 Inactive Nitro-Bid 2 % transdermal ointment RxNorm: 585580 1 Application TD TID as needed raynauds symptoms of feet 06/01/201508/29 Inactive Vitamin B-12 1,000 mcg/mL injection solution RxNorm: 909087 INJECT 1ML INTRAMUSCULARLY ONCE WEEKLY 05/16/201503/2016 Inactive Voltaren 1 % topical gel RxNorm: 919529 2 Gram(s) TOP QID 05/1007/08/2015 Inactive potassium chloride 20 mEq/15 mL oral liquid RxNorm: 330252 TAKE 2 TABLESPOONS DAILY 04/22/2015 10/18/2015 Inactive naproxen sodium 550 mg tablet RxNorm: 917200 Tablet(s) Take 1 tablet by mouth twice a day 03/10/2015 06/01/2016 Inactive naproxen sodium 550 mg tablet RxNorm: 398207 Take 1 tablet by mouth twice a day 03/09/2015 11/15/2016 Inactive 2nd Attempt Pristiq 50 mg tablet,extended release RxNorm: 860056 1 Tablet(s) PO BID 03/09/2015 03/08/2015 Inactive naproxen sodium 550 mg tablet RxNorm: 809503 1 Tablet(s) PO BID 03/09/2015 03/08/2015 Inactive naproxen sodium 550 mg tablet RxNorm: 302675 Take 1 tablet by mouth twice a day 03/09/2015 03/09/2015 Inactive Pristiq 50 mg tablet,extended release RxNorm: 492803 Take 1 tablet twice a day 03/09/2015 03/29/2016 Inactive folic acid 1 mg tablet RxNorm: 704917 TAKE ONE TABLET BY MOUTH EVERY DAY 01/17/2015 11/02/2015 Inactive Vitamin B-12 1,000 mcg/mL injection solution RxNorm: 310656 INJECT 1 MLS DIRECTED ONCE WEEKLY 12/03/20142015 Inactive hydrocodone 10 mg-acetaminophen 325 mg tablet RxNorm: 914516 1 Tablet(s) PO Q6 PRN 11/22/2014 12/21/2014 Inactive [SAVINGS FOR NON-COVERED DRUGS -- BIN:868619, PCN: ASPROD1, Group: XXXXX, ID# [id number], Questions: . THIS IS NOT INSURANCE.] ceftriaxone 1 gram solution for injection RxNorm: 1857147 Inj 11/11/2014 11/11/2014 Inactive [SAVINGS FOR NON-COVERED DRUGS -- BIN:283859, PCN: ASPROD1, Group: XXXXX, ID# [id number], Questions: . THIS IS NOT INSURANCE.] Glucocard Vital Sensor strips RxNorm: 1 test Miscellaneous BID 10/27/2014 10/26/2014 Inactive DX code 790.29 Glucocard Vital Sensor strips RxNorm: 1 test Miscellaneous BID 10/27/2014 11/20/2015 Inactive DX code 790.29 [SAVINGS FOR UNINSURED PATIENTS -- BIN:418466, PCN: ASPROD1, Group: [id number], ID# [id number], Process claim through [employer], for questions: . THIS IS NOT INSURANCE.] topiramate 100 mg tablet RxNorm: 934767 2 Tablet(s) PO BID 04/27/2015 Inactive [SAVINGS FOR UNINSURED PATIENTS -- BIN:499950, PCN: ASPROD1, Group: [id number] , ID# [id number], Process claim through [employer], for questions: . THIS IS NOT INSURANCE.] Cholestyramine Susp Light 4 gram powder for susp in a packet RxNorm: 618456 packet PO PRN as needed 08/30/20142015 Inactive Nitro-Bid 2 % transdermal ointment RxNorm: 307731 1 Application TD TID as needed raynauds symptoms of feet 07/14/201410/11 Inactive Flonase 50 mcg/actuation nasal spray,suspension RxNorm: 432015 PLACE 2 SPRAYS IN EACH NOSTRIL DAILY 05/25/2014 08/22/2014 Inactive potassium chloride 20 mEq/15 mL oral liquid RxNorm: 856142 2 Tablespoon(s) PO daily 04/20/2014 04/21/2015 Inactive potassium chloride 10 % oral liquid RxNorm: 922104 2 Tablespoon(s) PO daily 04/20/2014 04/19/2014 Inactive potassium chloride 10 % oral liquid RxNorm: 386716 2 Tablespoon(s) PO daily 04/09/2014 04/19/2014 Inactive folic acid 1 mg tablet RxNorm: 655379 Tablet(s) PO TAKE ONE TABLET BY MOUTH EVERY DAY 02/15/2014 No Stop Date Active folic acid 1 mg tablet RxNorm: 437349 Tablet(s) PO TAKE ONE TABLET BY MOUTH EVERY DAY 02/15/2014 01/16/2015 Inactive folic acid 1 mg tablet RxNorm: 326920 1 Tablet(s) PO daily TAKE ONE TABLET BY MOUTH EVERY DAY 02/15/2014 02/14/2014 Inactive Flonase 50 mcg/actuation nasal spray,suspension RxNorm: 090968 1 Robbins NASAL BID 01/12/2014 08/09/2014 Inactive topiramate 100 mg tablet RxNorm: 614747 1.5 Tablet(s) PO BID 08/09/2014 Inactive amoxicillin 500 mg capsule RxNorm: 607135 1 Capsule(s) PO TID 12/24/2013 12/30/2013 Inactive amoxicillin 500 mg capsule RxNorm: 134281 1 Capsule(s) PO TID 12/24/2013 12/23/2013 Inactive Pristiq 50 mg tablet,extended release RxNorm: 219924 1 Tablet(s) PO BID 12/01/2013 02/23/2015 Inactive Vitamin B-12 1,000 mcg/mL injection solution RxNorm: 862017 1 Milliliter(s) Inj QW 11/10/2013 11/09/2013 Inactive Vitamin B-12 1,000 mcg/mL injection solution RxNorm: 575678 1 Milliliter(s) Inj QW 11/10/2013 12/02/2014 Inactive Myrbetriq 25 mg tablet,extended release RxNorm: 4451831 1 Tablet(s) PO daily 10/20/2013 08/16/2014 Inactive fluconazole 150 mg tablet RxNorm: 606057 1 Tablet(s) PO daily 09/15/2013 09/19/2013 Inactive amoxicillin 875 mg-potassium clavulanate 125 mg tablet RxNorm: 833271 1 Tablet(s) PO BID 09/15/2013 09/24/2013 Inactive Pristiq 50 mg tablet,extended release RxNorm: 225389 1 Tablet(s) PO BID 07/30/2013 11/30/2013 Inactive Topamax 25 mg tablet RxNorm: 854425 4 Tablet(s) PO BID 201201/11/2014 Inactive vitamin B12 200mcg Robbins, Suspension RxNorm: 1 Robbins PO daily 07/27/2013 12/25/2015 Inactive Flonase 50 mcg/actuation nasal spray,suspension RxNorm: 526871 2 Robbins NASAL daily 06/09/2013 07/08/2013 Inactive Carafate 1 gram tablet RxNorm: 892504 1 Tablet(s) PO ac and hs 05/07/2013 05/06/2013 Inactive Carafate 1 gram tablet RxNorm: 004635 1 Tablet(s) PO ac and hs 05/07/2013 05/31/2014 Inactive potassium chloride 10 % Oral Liquid RxNorm: 564057 1 Tablespoon(s) PO daily 03/23/2013 04/08/2014 Inactive folic acid 1 mg tablet RxNorm: 628258 Tablet(s) PO TAKE ONE TABLET BY MOUTH EVERY DAY 01/29/2013 02/14/2014 Inactive naproxen sodium 550 mg tablet RxNorm: 358674 1 Tablet(s) PO BID 01/21/2013 10/26/2014 Inactive hydrocodone 5 mg-acetaminophen 500 mg tablet RxNorm: 307893 1 Tablet(s) PO Q8 PRN 12/25/2012 02/19/2017 Inactive folic acid 1 mg tablet RxNorm: 990804 1 Tablet(s) PO daily 01/28/2013 Inactive cyanocobalamin (vitamin B-12) 1,000 mcg/mL Injection RxNorm: 989433 1 Milliliter(s ) Inj 2 x month inject 1 mL every other week intramuscularly 11/03/2012 11/02/2012 Inactive please provide 25 gauge syringes as well. cyanocobalamin (vitamin B-12) 1,000 mcg/mL Injection RxNorm: 877526 Milliliter(s) Inj 11/03/2012 11/03/2012 Inactive cyanocobalamin (vitamin B-12) 1,000 mcg/mL Injection RxNorm: 316002 1 Milliliter(s ) Inj 2 x month inject 1 mL every other week intramuscularly 11/03/2012 12/25/2015 Inactive please provide 25 gauge syringes as well. cyanocobalamin (vitamin B-12) 1,000 mcg/mL Injection RxNorm: 149731 1 Milliliter(s ) Inj 10/20/2012 10/20/2012 Inactive Vitamin B-12 1,000 mcg/mL Injection RxNorm: 020930 1 Milliliter(s) Inj 09/11/2012 09/11/2012 Inactive Zithromax Z-Juanpablo 250 mg tablet RxNorm: 077370 Tablet(s) PO UD 12/24/2012 Inactive please give z juanpablo hydrochlorothiazide 25 mg tablet RxNorm: 020446 1/2 Tablet(s) PO daily 08/11/2012 No Stop Date Active Vitamin B-12 1,000 mcg/mL Injection RxNorm: 651456 Milliliter(s) Inj 08/11/2012 08/11/2012 Inactive Vitamin D2 50,000 unit capsule RxNorm: 255937 Capsule(s) PO one weekly for 8 weeks then resume her daily dosing 07/21/2012 07/20/2012 Inactive Vitamin B-12 1,000 mcg/mL Injection RxNorm: 245513 Milliliter(s) Inj 07/21/2012 07/21/2012 Inactive Vitamin D2 50,000 unit capsule RxNorm: 618930 Capsule(s) PO one weekly for 8 weeks then resume her daily dosing 07/21/2012 09/18/2012 Inactive Diflucan 150 mg tablet RxNorm: 704628 1 Tablet(s) PO daily 09/201107/12/2012 Inactive HyoMax-SR 0.375 mg tablet,extended release RxNorm: 7786483 Tablet(s) PO PRN No Start Date Active 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 10 mg disintegrating tablet RxNorm: 888584 Tablet(s) PO PRN No Start Date Active pantoprazole 40 mg tablet,delayed release RxNorm: 387136 1 Tablet(s) PO daily No Start Date Active Vitamin D3 2,000 unit tablet RxNorm: 462708 1 Tablet(s) PO daily No Start Date Active Fish Oil 1,000 mg capsule RxNorm: 1 Capsule(s) PO BID No Start Date Active Zetia 10 mg tablet RxNorm: 987295 1 Tablet(s) PO QPM No Start Date Active metoprolol tartrate 50 mg tablet RxNorm: 038391 1 Tablet(s) PO BID No Start Date Active biotin 2,500 mcg tablet RxNorm: 059485 1 Tablet(s) PO daily No Start Date Active Zyrtec 10 mg tablet RxNorm: 7601800 1 Tablet(s) PO PRN No Start Date Active aspirin 81 mg tablet,delayed release RxNorm: 443578 1 Tablet(s) PO daily No Start Date Active Ditropan XL 5 mg tablet,extended release RxNorm: 286155 1 Tablet(s) PO daily No Start Date Active Praluent Pen 75 mg/mL subcutaneous pen injector RxNorm: 1052629 1 Milliliter(s) SQ Q 2 weeks No Start Date Active Antara 130 mg capsule RxNorm: 227220 1 Capsule(s) PO daily No Start Date Active amlodipine 10 mg tablet RxNorm: 314689 1 Tablet(s) PO daily No Start Date Active Fioricet oral RxNorm: 806364 oral No Start Date Active Cholestyramine Susp Light 4 gram Packet RxNorm: 759244 packet PO PRN No Start Date 08/29/2014 Inactive Pristiq 50 mg tablet,extended release RxNorm: 386965 1 Tablet(s) PO daily No Start Date 07/29/2013 Inactive Topamax 25 mg tablet RxNorm: 234969 3 Tablet(s) PO BID No Start Date 07/29/2013 Inactive Tricor 145 mg tablet RxNorm: 742731 1 Tablet(s) PO daily No Start Date 12/24/2012 Inactive Zithromax Z-Juanpablo 250 mg tablet RxNorm: 765434 Tablet(s) PO UD No Start Date 08/11/2012 Inactive Vitamin D3 2,000 unit capsule RxNorm: 101228 1 Capsule(s) PO daily No Start Date 12/25/2015 Inactive Vagifem 10 mcg vaginal tablet RxNorm: 428809 1-2 Tablet(s) VAG weekly No Start Date 06/10/2016 Inactive Gelnique 10 % (100 mg/gram) transdermal gel packet RxNorm: 438857 3% gel 3 pumps TD daily No Start Date 08/09/2014 Inactive Vitamin D3 5,000 unit tablet RxNorm: 427124 1 Tablet(s) PO daily No Start Date 06/10/2016 Inactive hydrochlorothiazide 25 mg tablet RxNorm: 690721 1 Tablet(s) PO daily No Start Date 08/10/2012 Inactive Flexeril 10 mg tablet RxNorm: 086098 Tablet(s) PO No Start Date 06/10/2016 Inactive 1 q am1/2 with dinner1 hs Valium 5 mg tablet RxNorm: 662354 1 Tablet(s) PO PRN No Start Date 06/26/2017 Inactive amlodipine 5 mg tablet RxNorm: 453092 1 Tablet(s) PO daily No Start Date 03/15/2014 Inactive Phenergan VC-Codeine 6.25 mg-5 mg-10 mg/5 mL syrup RxNorm: 143125 5 Milliliter(s) PO Q6 as needed cough No Start Date 2015 Inactive Zithromax Z-Juanpablo 250 mg tablet RxNorm: 591409 Tablet(s) PO UD No Start Date 07/30/2013 Inactive naproxen 500 mg tablet RxNorm: 771239 Tablet(s) PO BID PRN No Start Date 01/20/2013 Inactive Lovaza 1 gram capsule RxNorm: 961958 2 Capsule(s) PO BID No Start Date 03/04/2018 Inactive hydrocodone 5 mg-acetaminophen 500 mg tablet RxNorm: 946756 1 Tablet(s) PO Q8 PRN No Start Date 12/24/2012 Inactive biotin 1000 mg RxNorm : 2 PO No Start Date 06/11/2016 Inactive Lomotil 2.5 mg-0.025 mg tablet RxNorm: 4018778 Tablet(s) PO PRN No Start Date 04/23/2016 Inactive folic acid 1 mg tablet RxNorm: 305309 1 Tablet(s) PO daily No Start Date 11/02/2012 Inactive amitriptyline 25 mg tablet RxNorm: 256306 1 Tablet(s) PO QHS dr fonseca No Start Date 03/29/2016 Inactive Gelnique transdermal RxNorm: 999868 transdermal No Start Date 03/25/2016 Inactive Toprol XL 50 mg tablet,extended release RxNorm: 235068 1 Tablet(s) PO daily No Start Date 04/08/2017 Inactive potassium chloride 10 % Oral Liquid RxNorm: 583607 1 Tablespoon(s) PO daily No Start Date 03/22/2013 Inactive Lipitor 10 mg tablet RxNorm: 441614 1 Tablet(s) PO QHS No Start Date 12/24/2012 Inactive diltiazem 120 mg tablet RxNorm: 520554 1 Tablet(s) PO daily No Start Date 08/10/2012 Inactive Combivent Respimat 20 mcg-100 mcg/actuation solution for inhalation RxNorm: 8234213 1-2 Puff(s) INH Q4 PRN No Start Date 07/25/2017 Inactive Medication Administered Medication Codes Instructions Start Date Status ceftriaxone 1 gram solution for injection RxNorm: 5987276 11/11/2014 No longer Active cyanocobalamin (vitamin B-12) 1,000 mcg/mL Injection RxNorm : 381822 Milliliter 11/03/2012 No longer Active cyanocobalamin (vitamin B-12) 1,000 mcg/mL Injection RxNorm : 016486 1Milliliter 10/20/2012 No longer Active Vitamin B-12 1,000 mcg/mL Injection RxNorm: 707721 1Milliliter 09/11/2012 No longer Active Vitamin B-12 1,000 mcg/mL Injection RxNorm: 905428 Milliliter 08/11/2012 No longer Active Vitamin B-12 1,000 mcg/mL Injection RxNorm: 288017 Milliliter 07/21/2012 No longer Active Immunizations Vaccine Codes Date Status Influenza CVX: 141 06/19/2017 completed Tetanus, Diptheria, Pertussis CVX: 113 completed Tetanus/Diptheria CVX: 113 03/30/2015 completed Influenza CVX: 141 05/12/2012 completed Pneumococcal CVX: 33 06/11/2011 completed Assessments Condition Codes Effective Dates Mixed hyperlipidemia ICD-10: E78.2 ICD-9: 272.2 02/11/2018 Nontoxic multinodular goiter ICD-10: E04.2 ICD-9: 241.1 02/11/2018 Essential (primary) hypertension ICD-10: I10 ICD-9: 401.1 02/11/2018 Essential (primary) hypertension ICD-10: I10 ICD-9: 401.9 11/12/2017 Other fatigue ICD-10: R53.83 ICD-9: 780.79 11/12/2017 Major depressive disorder, recurrent, moderate ICD-10: F33.1 ICD-9: 296.32 08/20/2017 Generalized anxiety disorder ICD-10: F41.1 ICD-9: 300.00 08/20/2017 Encounter for other preprocedural examination ICD-10: Z01.818 [...] Visit Reason For Visit Effective Dates Notes hypertension 02/11/2018 hypertension 11/12/2017 hypertension 08/20/2017 pre-op/surgery [...] Item Item Code Result Date Comp Metabolic Uws522 NA 140 mEq/L 05/01/2018 Comp Metabolic Kau616 K 4.1 mEq/L 05/01/2018 Comp Metabolic Ofo052 CL 107 mEq/L 05/01/2018 Comp Metabolic Gfj951 CO2 25.0 mEq/L 05/01/2018 Comp Metabolic Ksb019 ANION GAP 12 05/01/2018 Comp Metabolic Jak302 GLUCOSE 98 mg/dL 05/01/2018 Comp Metabolic Miq746 Creat 0.7 mg/dL 05/01/2018 Comp Metabolic Avl188 eGFR 96 ml/min/1.73m2 05/01/2018 Comp Metabolic Pzk358 BUN 14 mg/dL 05/01/2018 Comp Metabolic Bhg492 B/C Ratio 20.9 Ratio 05/01/2018 Comp Metabolic Bgm117 CALCIUM 9.5 mg/dL 05/01/2018 Comp Metabolic Rab132 ALK PHOS 74 U/L 05/01/2018 Comp Metabolic Qjw699 AST(SGOT) 19 U/L 05/01/2018 Comp Metabolic Vmh457 ALT(SGPT) 29 U/L 05/01/2018 Comp Metabolic Xzf899 BILI T 0.3 mg/dL 05/01/2018 Comp Metabolic Aps499 ALBUMIN 4.3 g/dL 05/01/2018 Comp Metabolic Tws344 TPRO 6.7 g/dL 05/01/2018 Comp Metabolic Qmr515 GLOB 2.4 g/dL 05/01/2018 Comp Metabolic Kat982 A/G Ratio 1.8 Ratio 05/01/2018 Comp Metabolic Hjb562 Osmo 280 mOsmo 05/01/2018 Tsh Ord6 TSH (3rd IS) 2.16 uIU/mL 02/11/2018 Free T4 Gkt676 FREE T4 0.95 ng/dL 02/11/2018 Free T4 Chf515 FREE T4 0.81 ng/dL 11/12/2017 Tsh Ord6 TSH (3rd IS) 1.66 uIU/mL 11/12/2017 Hepatic Tam130 ALBUMIN 4.4 g/dL 08/20/2017 Hepatic Bcu994 TPRO 6.6 g/dL 08/20/2017 Hepatic Mhc762 GLOB 2.2 g/dL 08/20/2017 Hepatic Crh668 A/G Ratio 2.0 Ratio 08/20/2017 Hepatic Xtr103 ALK PHOS 50 U/L 08/20/2017 Hepatic Rzo129 ALT(SGPT) 20 U/L 08/20/2017 Hepatic Tok178 AST(SGOT) 20 U/L 08/20/2017 Hepatic Xot869 BILI T 0.3 mg/dL 08/20/2017 Hepatic Sjs065 BILI D 0.1 mg/dL 08/20/2017 Hepatic Nda810 BILI I 0.2 mg/dL 08/20/2017 Lipid Ord30 CHOL 173 mg/dL 08/20/2017 Lipid Ord30 HDL 64.0 mg/dl 08/20/2017 Lipid Ord30 TRIG 205 mg/dL 08/20/2017 Lipid Ord30 LDL 68 mg/dL 08/20/2017 Lipid Ord30 C/HDL 2.7 Ratio 08/20/2017 Free T4 Seb841 FREE T4 0.80 ng/dL 08/20/2017 Tsh Ord6 hTSH II 1.45 uIU/mL 08/20/2017 Cbc With Differential Ord2 WBC 7.27 [...] 30.3 pg 02/21/2017 Cbc With Differential Ord2 [place]% 6.9 % 02/21/2017 Cbc With Differential Ord2 [...] 1.82 K/ul 02/21/2017 Cbc With Differential Ord2 [place] ABS# 0.5 K/ul 02/21/2017 Cbc With Differential Ord2 Eos ABS# 0.2 K/ul 02/21/2017 Cbc With Differential Ord2 Baso ABS# 0.0 K/ul 02/21/2017 %Hba1C Ami337 % HbA1c 69080-3 5.8 % 02/21/2017 %Hba1C Mnp599 Gluc Ave 120 mg/dL 02/21/2017 Tsh Ord6 hTSH II 1.90 uIU/mL 02/21/2017 Vitamin D 25 Oh Pmn3880 VITAMIN D, 25 HYDROXY 42.82 ng/mL Comp Metabolic Par118 NA 141 mEq/L 02/21/2017 Comp Metabolic Bjx889 K 4.1 mEq/L 02/21/2017 Comp Metabolic Ioj227 CL 107 mEq/L 02/21/2017 Comp Metabolic Qbg599 CO2 25.0 mEq/L 02/21/2017 Comp Metabolic Lll056 ANION GAP 13 02/21/2017 Comp Metabolic Vtm375 GLUCOSE 87 mg/dL 02/21/2017 Comp Metabolic Ccz284 Creat 0.8 mg/dL 02/21/2017 Comp Metabolic Bmi965 eGFR 80 ml/min/1.73m2 02/21/2017 Comp Metabolic Fal517 BUN 20 mg/dL 02/21/2017 Comp Metabolic Kzz786 B/C Ratio 25.3 Ratio 02/21/2017 Comp Metabolic Mlo536 CALCIUM 9.5 mg/dL 02/21/2017 Comp Metabolic Xdc680 ALK PHOS 61 U/L 02/21/2017 Comp Metabolic Fxe223 AST(SGOT) 16 U/L 02/21/2017 Comp Metabolic Ssm136 ALT(SGPT) 19 U/L 02/21/2017 Comp Metabolic Ckp939 BILI T 0.3 mg/dL 02/21/2017 Comp Metabolic Ozr537 ALBUMIN 4.4 g/dL 02/21/2017 Comp Metabolic Opd207 TPRO 7.0 g/dL 02/21/2017 Comp Metabolic Pxj637 GLOB 2.6 g/dL 02/21/2017 Comp Metabolic Lfa289 A/G Ratio 1.7 Ratio 02/21/2017 Comp Metabolic Jvm396 Osmo 283 mOsmo 02/21/2017 Lipid Ord30 CHOL 185 mg/dL 02/21/2017 Lipid Ord30 HDL 74.0 mg/dl 02/21/2017 Lipid Ord30 TRIG 148 mg/dL 02/21/2017 Lipid Ord30 LDL 81 mg/dL 02/21/2017 Lipid Ord30 C/HDL 2.5 Ratio 02/21/2017 Lipid Ord30 CHOL 302 mg/dL 08/21/2016 Lipid Ord30 HDL 69.0 mg/dl 08/21/2016 Lipid Ord30 TRIG 223 mg/dL 08/21/2016 Lipid Ord30 LDL 188 mg/dL 08/21/2016 Lipid Ord30 C/HDL 4.4 Ratio 08/21/2016 Hepatic Uzh741 ALBUMIN 4.9 g/dL 08/21/2016 Hepatic Rww941 TPRO 7.3 g/dL 08/21/2016 Hepatic Njb686 GLOB 2.5 g/dL 08/21/2016 Hepatic Zha710 A/G Ratio 2.0 Ratio 08/21/2016 Hepatic Ptv435 ALK PHOS 76 U/L 08/21/2016 Hepatic Rjv131 ALT(SGPT) 29 U/L 08/21/2016 Hepatic Ulf789 AST(SGOT) 22 U/L 08/21/2016 Hepatic Dno689 BILI T 0.4 mg/dL 08/21/2016 Hepatic Wza362 BILI D 0.1 mg/dL 08/21/2016 Hepatic Qgb467 BILI I 0.3 mg/dL 08/21/2016 Cbc With Differential Ord2 WBC 6.11 K/ul 06/04/2016 Cbc With Differential Ord2 RBC 4.44 M/ul 06/04/2016 Cbc With Differential Ord2 HGB 13.3 g/dl 06/04/2016 Cbc With Differential Ord2 HCT 40.7 % 06/04/2016 Cbc With Differential Ord2 Neut% 67.0 % 06/04/2016 Cbc With Differential Ord2 Lymph% 24.5 % 06/04/2016 Cbc With Differential Ord2 MCV 91.7 fl 06/04/2016 Cbc With Differential Ord2 [place]% 6.5 % 06/04/2016 Cbc With Differential Ord2 MCH 30.0 pg 06/04/2016 Cbc With Differential Ord2 MCHC 32.7 pg 06/04/2016 Cbc With Differential Ord2 Eos% 1.8 % 06/04/2016 Cbc With Differential Ord2 Baso% 0.2 % 06/04/2016 Cbc With Differential Ord2 PLT 315 K/ul 06/04/2016 Cbc With Differential Ord2 RDW 13.9 % 06/04/2016 Cbc With Differential Ord2 Neut ABS# 4.09 K/ul 06/04/2016 Cbc With Differential Ord2 Lymph ABS# 1.50 K/ul 06/04/2016 Cbc With Differential Ord2 [place] ABS# 0.4 K/ul 06/04/2016 Cbc With Differential Ord2 Eos ABS# 0.1 K/ul 06/04/2016 Cbc With Differential Ord2 Baso ABS# 0.0 K/ul 06/04/2016 Lipase Duy722 LIPASE 14 U/L 06/04/2016 Comp Metabolic Gel246 NA 135 mEq/L 06/04/2016 Comp Metabolic Liu362 K 3.8 mEq/L 06/04/2016 Comp Metabolic Thh114 CL 101 mEq/L 06/04/2016 Comp Metabolic Rvt784 CO2 26.0 mEq/L 06/04/2016 Comp Metabolic Txl805 ANION GAP 12 06/04/2016 Comp Metabolic Mok868 GLUCOSE 91 mg/dL 06/04/2016 Comp Metabolic Rui492 Creat 0.8 mg/dL 06/04/2016 Comp Metabolic Tez446 eGFR 74 ml/min/1.73m2 06/04/2016 Comp Metabolic Wjq470 BUN 16 mg/dL 06/04/2016 Comp Metabolic Znj374 B/C Ratio 19.0 Ratio 06/04/2016 Comp Metabolic Jyd750 CALCIUM 10.0 mg/dL 06/04/2016 Comp Metabolic Jpu767 ALK PHOS 76 U/L 06/04/2016 Comp Metabolic Eaq859 AST(SGOT) 20 U/L 06/04/2016 Comp Metabolic Rat064 ALT(SGPT) 24 U/L 06/04/2016 Comp Metabolic Jas322 BILI T 0.3 mg/dL 06/04/2016 Comp Metabolic Rzz367 ALBUMIN 4.6 g/dL 06/04/2016 Comp Metabolic Pjj048 TPRO 6.9 g/dL 06/04/2016 Comp Metabolic Cvn167 GLOB 2.3 g/dL 06/04/2016 Comp Metabolic Oee670 A/G Ratio 2.0 Ratio 06/04/2016 Comp Metabolic Tnm507 Osmo 271 mOsmo 06/04/2016 Amylase Ord34 AMYLASE 31 U/L 06/04/2016 Hepatic Son426 ALBUMIN 4.3 g/dL 2016 Hepatic Jzy257 TPRO 6.7 g/dL 2016 Hepatic Gna772 GLOB 2.4 g/dL 2016 Hepatic Lwx592 A/G Ratio 1.8 Ratio 2016 Hepatic Hvi039 ALK PHOS 50 U/L 2016 Hepatic Kau570 ALT(SGPT) 20 U/L 2016 Hepatic Bmc169 AST(SGOT) 18 U/L 2016 Hepatic Wuc265 BILI T 0.4 mg/dL 2016 Hepatic Fnb920 BILI D 0.1 mg/dL 2016 Hepatic Nwo279 BILI I 0.3 mg/dL 2016 Lipid Ord30 CHOL 245 mg/dL 2016 Lipid Ord30 HDL 62.0 mg/dl 2016 Lipid Ord30 TRIG 140 mg/dL 2016 Lipid Ord30 LDL 155 mg/dL 2016 Lipid Ord30 C/HDL 4.0 Ratio 2016 Urine Culture Ucult Preliminary No Growth Day 1 09/15/2015 Urine Culture Ucult Complete No Growth Day 2 09/15/2015 Magnesium Ord90 Mag 1.9 mg/dL 09/07/2015 Comp Metabolic Jzn312 NA 139 mEq/L 09/07/2015 Comp Metabolic Gdy905 K 4.4 mEq/L 09/07/2015 Comp Metabolic Lin908 CL 107 mEq/L 09/07/2015 Comp Metabolic Jvp939 CO2 24.0 mEq/L 09/07/2015 Comp Metabolic Mkl739 ANION GAP 12 09/07/2015 Comp Metabolic Rge762 GLUCOSE 91 mg/dL 09/07/2015 Comp Metabolic Xii706 Creat 1.0 mg/dL 09/07/2015 Comp Metabolic Wuh358 eGFR 64 ml/min/1.73m2 09/07/2015 Comp Metabolic Pkt313 BUN 31 mg/dL 09/07/2015 Comp Metabolic Kyx318 B/C Ratio 32.3 Ratio 09/07/2015 Comp Metabolic Why370 CALCIUM 9.7 mg/dL 09/07/2015 Comp Metabolic Wfy436 ALK PHOS 56 U/L 09/07/2015 Comp Metabolic Nyt600 AST(SGOT) 29 U/L 09/07/2015 Comp Metabolic Vcd284 ALT(SGPT) 34 U/L 09/07/2015 Comp Metabolic Xhu541 BILI T 0.3 mg/dL 09/07/2015 Comp Metabolic Xie745 ALBUMIN 4.6 g/dL 09/07/2015 Comp Metabolic Qzc894 TPRO 7.0 g/dL 09/07/2015 Comp Metabolic Nrb305 GLOB 2.4 g/dL 09/07/2015 Comp Metabolic Dwr118 A/G Ratio 1.9 Ratio 09/07/2015 Comp Metabolic Dlg981 Osmo 284 mOsmo 09/07/2015 Bili D Ord93 BILI D 0.1 mg/dL 09/07/2015 Bili D Ord93 BILI I 0.2 mg/dL 09/07/2015 Lipid Ord30 CHOL 243 mg/dL 09/07/2015 Lipid Ord30 HDL 75.0 mg/dl 09/07/2015 Lipid Ord30 TRIG 161 mg/dL 09/07/2015 Lipid Ord30 LDL 136 mg/dL 09/07/2015 Lipid Ord30 C/HDL 3.2 Ratio 09/07/2015 Comp Metabolic Rmq223 NA 138 mEq/L 06/13/2015 Comp Metabolic Xnw305 K 4.0 mEq/L 06/13/2015 Comp Metabolic Ezm881 CL 104 mEq/L 06/13/2015 Comp Metabolic Bch984 CO2 26.0 mEq/L 06/13/2015 Comp Metabolic Ccp761 ANION GAP 12 06/13/2015 Comp Metabolic Nag778 GLUCOSE 86 mg/dL 06/13/2015 Comp Metabolic Mwl961 Creat 0.9 mg/dL 06/13/2015 Comp Metabolic Wxj244 eGFR 71 ml/min/1.73m2 06/13/2015 Comp Metabolic Acn631 BUN 18 mg/dL 06/13/2015 Comp Metabolic Sli543 B/C Ratio 20.5 Ratio 06/13/2015 Comp Metabolic Otn123 CALCIUM 10.1 mg/dL 06/13/2015 Comp Metabolic Pwd012 ALK PHOS 52 U/L 06/13/2015 Comp Metabolic Mng380 AST(SGOT) 18 U/L 06/13/2015 Comp Metabolic Prq052 ALT(SGPT) 21 U/L 06/13/2015 Comp Metabolic Snw586 BILI T 0.3 mg/dL 06/13/2015 Comp Metabolic Jxz111 ALBUMIN 4.7 g/dL 06/13/2015 Comp Metabolic Gxa799 TPRO 6.9 g/dL 06/13/2015 Comp Metabolic Peh723 GLOB 2.2 g/dL 06/13/2015 Comp Metabolic Dsn720 A/G Ratio 2.1 Ratio 06/13/2015 Comp Metabolic Ktc663 Osmo 277 mOsmo 06/13/2015 Tsh Ord6 hTSH II 2.53 uIU/mL 06/13/2015 %Hba1C Wfa119 % HbA1c 96306-9 5.7 % 06/13/2015 %Hba1C Ptl520 Gluc Ave 117 mg/dL 06/13/2015 Cbc With [...] 14.7 % 06/13/2015 Vitamin D 25 Oh Sud2680 VITAMIN D, 25 HYDROXY 41.85 ng/mL Comp Metabolic Fyp507 NA 137 mEq/L 04/18/2015 Comp Metabolic Jna141 K 4.0 mEq/L 04/18/2015 Comp Metabolic Glw618 CL 105 mEq/L 04/18/2015 Comp Metabolic Jyq132 CO2 23.0 mEq/L 04/18/2015 Comp Metabolic Uvv424 ANION GAP 13 04/18/2015 Comp Metabolic Msa162 GLUCOSE 73 mg/dL 04/18/2015 Comp Metabolic Mkr974 Creat 0.9 mg/dL 04/18/2015 Comp Metabolic Wgw914 eGFR 72 ml/min/1.73m2 04/18/2015 Comp Metabolic Bax297 BUN 17 mg/dL 04/18/2015 Comp Metabolic Ipk728 B/C Ratio 19.5 Ratio 04/18/2015 Comp Metabolic Sns275 CALCIUM 9.7 mg/dL 04/18/2015 Comp Metabolic Dlu640 ALK PHOS 55 U/L 04/18/2015 Comp Metabolic Ihe350 AST(SGOT) 28 U/L 04/18/2015 Comp Metabolic Lap631 ALT(SGPT) 27 U/L 04/18/2015 Comp Metabolic Dwd275 BILI T 0.3 mg/dL 04/18/2015 Comp Metabolic Fob412 ALBUMIN 4.5 g/dL 04/18/2015 Comp Metabolic Iif617 TPRO 7.0 g/dL 04/18/2015 Comp Metabolic Tlp715 GLOB 2.5 g/dL 04/18/2015 Comp Metabolic Kbf023 A/G Ratio 1.8 Ratio 04/18/2015 Comp Metabolic Xvi971 Osmo 274 mOsmo 04/18/2015 Cbc With Differential Ord2 WBC 6.1 K/uL [...] With Differential Ord2 RDW 14.5 % 04/18/2015 Cbc With Differential Ord2 WBC 7.9 [...] Ord2 RDW 15.0 % 03/22/2015 Comp Metabolic Hfl066 NA 136 mEq/L 03/22/2015 Comp Metabolic Wfb723 K 4.1 mEq/L 03/22/2015 Comp Metabolic Abw281 CL 102 mEq/L 03/22/2015 Comp Metabolic Xjw646 CO2 26.0 mEq/L 03/22/2015 Comp Metabolic Aji853 ANION GAP 12 03/22/2015 Comp Metabolic Tlm727 GLUCOSE 82 mg/dL 03/22/2015 Comp Metabolic Trw361 Creat 0.9 mg/dL 03/22/2015 Comp Metabolic Kmo630 eGFR 69 ml/min/1.73m2 03/22/2015 Comp Metabolic Ooe801 BUN 30 mg/dL 03/22/2015 Comp Metabolic Ioy409 B/C Ratio 33.3 Ratio 03/22/2015 Comp Metabolic Ork268 CALCIUM 10.3 mg/dL 03/22/2015 Comp Metabolic Tyz194 ALK PHOS 56 U/L 03/22/2015 Comp Metabolic Cap015 AST(SGOT) 17 U/L 03/22/2015 Comp Metabolic Gvq759 ALT(SGPT) 17 U/L 03/22/2015 Comp Metabolic Ayi497 BILI T 0.3 mg/dL 03/22/2015 Comp Metabolic Pbd043 ALBUMIN 4.7 g/dL 03/22/2015 Comp Metabolic Wac263 TPRO 7.2 g/dL 03/22/2015 Comp Metabolic Shf216 GLOB 2.5 g/dL 03/22/2015 Comp Metabolic Iog602 A/G Ratio 1.9 Ratio 03/22/2015 Comp Metabolic Ngm019 Osmo 277 mOsmo 03/22/2015 FREE T4 6558789 FREE T4 1.24 NG/DL 10/18/2014 CBC 9353764 WBC 6.7 10e9/L 10/15/2014 CBC 3225792 RBC 4.49 10e12/L 10/15/2014 CBC 4644096 HGB 13.4 g/dL 10/15/2014 CBC 8564729 HCT DET 40.2 % 10/15/2014 CBC 7869749 MCV 89.5 fL 10/15/2014 CBC 8610696 MCH 29.8 pg 10/15/2014 CBC 2795086 MCHC 33.3 g/dL 10/15/2014 CBC 0768025 PLT 311 10e9/L 10/15/2014 CBC 8038155 MPV 10.7 fL 10/15/2014 CBC 7037459 BESSY % 63.6 % 10/15/2014 CBC 8625304 LY % 26.7 % 10/15/2014 CBC 2444434 MON % 6.6 % 10/15/2014 CBC 3963271 EOS % 2.8 % 10/15/2014 CBC 6738372 BASO % 0.3 % 10/15/2014 CBC 6749304 RDW 13.4 % 10/15/2014 CBC 1811373 ABS BESSY 4.26 10e9/L 10/15/2014 CBC 2582234 ABS LYMPH 1.79 10e9/L 10/15/2014 CBC 6161042 ABS MONO 0.44 10e9/L 10/15/2014 CBC 5816006 ABS EOS 0.19 10e9/L 10/15/2014 CBC 0198595 ABS BASO 0.02 10e9/L 10/15/2014 CBC 2755415 RDW-SD 43.2 fL 10/15/2014 CHEM 14 7601685 AST 14 U/L 10/15/2014 CHEM 14 3789535 ALT 15 IU/L 10/15/2014 CHEM 14 1969074 BUN 23 MG/DL 10/15/2014 CHEM 14 8474935 ALBUMIN 4.8 GM/DL 10/15/2014 CHEM 14 8051256 CHLORIDE 105 MMOL/L 10/15/2014 CHEM 14 0223624 BILI TOT 0.3 MG/DL 10/15/2014 CHEM 14 0892078 ALK PHOS 60 U/L 10/15/2014 CHEM 14 4967458 SODIUM 140 MMOL/L 10/15/2014 CHEM 14 5432133 CREATININE 0.89 MG/DL 10/15/2014 CHEM 14 4845702 CALCIUM 10.0 MG/DL 10/15/2014 CHEM 14 0400055 POTASSIUM 3.7 MMOL/L 10/15/2014 CHEM 14 5968034 PROT TOT 7.2 GM/DL 10/15/2014 CHEM 14 3315081 GLUCOSE 97 MG/DL 10/15/2014 CHEM 14 6680592 BICARB 25 MMOL/L 10/15/2014 CHEM 14 4176220 ANION GAP 10 MEQ/L 10/15/2014 A1C HPLC 3243905 A1C HPLC 41720-6 5.7 % 10/15/2014 TSH 5585883 TSH 4.083 uIU/ML 10/15/2014 GFR CALC 5185667 GFR AA >60 ML/MIN 10/15/2014 GFR CALC 1784535 GFR NON-AA >60 ML/MIN 10/15/2014 VIT D TOTL 9626461 VIT D TOTL 36 NG/ML 10/15/2014 TSH 2336292 TSH 1.417 uIU/ML 06/23/2014 GFR CALC 0063912 GFR AA >60 ML/MIN 06/23/2014 GFR CALC 6142344 GFR NON-AA >60 ML/MIN 06/23/2014 FREE T4 6916096 FREE T4 1.21 NG/DL 06/23/2014 CHEM 14 0120224 AST 21 U/L 06/23/2014 CHEM 14 9076100 ALT 24 IU/L 06/23/2014 CHEM 14 5796826 BUN 18 MG/DL 06/23/2014 CHEM 14 8246842 ALBUMIN 4.7 GM/DL 06/23/2014 CHEM 14 0767237 CHLORIDE 109 MMOL/L 06/23/2014 CHEM 14 7229154 BILI TOT 0.3 MG/DL 06/23/2014 CHEM 14 4910325 ALK PHOS 53 U/L 06/23/2014 CHEM 14 7364958 SODIUM 140 MMOL/L 06/23/2014 CHEM 14 7359054 CREATININE 0.86 MG/DL 06/23/2014 CHEM 14 3764752 CALCIUM 10.2 MG/DL 06/23/2014 CHEM 14 5604509 POTASSIUM 3.9 MMOL/L 06/23/2014 CHEM 14 1931509 PROT TOT 6.9 GM/DL 06/23/2014 CHEM 14 1513413 GLUCOSE 87 MG/DL 06/23/2014 CHEM 14 7645599 BICARB 24 MMOL/L 06/23/2014 CHEM 14 4372413 ANION GAP 7 MEQ/L 06/23/2014 TSH 3223124 TSH 3.399 uIU/ML 12/16/2013 CHEM 14 5734226 AST 19 U/L 12/15/2013 CHEM 14 3093824 ALT 23 IU/L 12/15/2013 CHEM 14 7158118 BUN 23 MG/DL 12/15/2013 CHEM 14 5449623 ALBUMIN 4.7 GM/DL 12/15/2013 CHEM 14 4925801 CHLORIDE 108 MMOL/L 12/15/2013 CHEM 14 4719987 BILI TOT 0.3 MG/DL 12/15/2013 CHEM 14 6936476 ALK PHOS 58 U/L 12/15/2013 CHEM 14 8677180 SODIUM 139 MMOL/L 12/15/2013 CHEM 14 1866746 CREATININE 0.92 MG/DL 12/15/2013 CHEM 14 4626628 CALCIUM 10.0 MG/DL 12/15/2013 CHEM 14 6237871 POTASSIUM 4.0 MMOL/L 12/15/2013 CHEM 14 3868515 PROT TOT 7.1 GM/DL 12/15/2013 CHEM 14 6580794 GLUCOSE 82 MG/DL 12/15/2013 CHEM 14 7653504 BICARB 24 MMOL/L 12/15/2013 CHEM 14 9735532 ANION GAP 7 MEQ/L 12/15/2013 CBC 6694538 WBC 6.4 10e9/L 12/15/2013 CBC 4325129 RBC 4.34 10e12/L 12/15/2013 CBC 9600583 HGB 12.9 g/dL 12/15/2013 CBC 7850334 HCT DET 39.3 % 12/15/2013 CBC 5626726 MCV 90.6 fL 12/15/2013 CBC 4276464 MCH 29.7 pg 12/15/2013 CBC 3661603 MCHC 32.8 g/dL 12/15/2013 CBC 5018331 PLT 292 10e9/L 12/15/2013 CBC 6746275 MPV 10.8 fL 12/15/2013 CBC 8674194 BESSY % 63.6 % 12/15/2013 CBC 0568955 LY % 25.7 % 12/15/2013 CBC 3059018 MON % 7.1 % 12/15/2013 CBC 2375155 EOS % 3.3 % 12/15/2013 CBC 2259072 BASO % 0.3 % 12/15/2013 CBC 3837528 RDW 13.4 % 12/15/2013 CBC 6747075 ABS BESSY 4.07 10e9/L 12/15/2013 CBC 1835486 ABS LYMPH 1.64 10e9/L 12/15/2013 CBC 4398677 ABS MONO 0.45 10e9/L 12/15/2013 CBC 6432384 ABS EOS 0.21 10e9/L 12/15/2013 CBC 6309893 ABS BASO 0.02 10e9/L 12/15/2013 CBC 6297136 RDW-SD 43.5 fL 12/15/2013 GFR CALC 1862214 GFR AA >60 ML/MIN 12/15/2013 GFR CALC 8398537 GFR NON-AA >60 ML/MIN 12/15/2013 URINALYSIS NONAUTO W/O SCOPE 35685 Specific [place] 1.025 DateTime(Free Text in Aprima) URINALYSIS NONAUTO W/O SCOPE 83572 PH 5 DateTime(Free Text in Apr[employer]) URINALYSIS NONAUTO W/O SCOPE 87889 GLUCOSE neg DateTime( Free Text in [employer]) URINALYSIS NONAUTO W/O SCOPE 62058 Protein neg DateTime( Free Text in [employer]) URINALYSIS NONAUTO W/O SCOPE 34061 Blood neg DateTime(Free Text in Apr[employer]) URINALYSIS NONAUTO W/O SCOPE 61269 Bilirubin neg DateTime(Free Text in Apr[employer]) URINALYSIS NONAUTO W/O SCOPE 54237 Ketones neg DateTime( Free Text in Apr[employer]) URINALYSIS NONAUTO W/O SCOPE 17037 Urobilinogen neg DateTime(Free Text in Apr[employer]) URINALYSIS NONAUTO W/O SCOPE 64339 Nitrite neg DateTime( Free Text in Apr[employer]) URINALYSIS NONAUTO W/O SCOPE 56743 Leukocytes neg DateTime(Free Text in Aprima) Review [...] clear 05/22/2017 None Full Exam - General 1995 Ears/Nose/Throat [...] vein procedure that will be perform in [place] in May. Full Exam - General 1994 [...] retractions 04/20/2013 None Full Exam - General 1995 Respiratory respiratory effort/rhythm Overall: normal rate 04/20/2013 [...] normal 04/20/2013 None Full Exam - General 1995 [...] 1995 Eyes conjunctiva /eyelids Overall: cornea clear 03/23/2013 [...] Procedure Codes Date IMMUNIZATION ADMIN CPT -4: 59049 06/19/2017 FLU VAC NO PRSV 4 ZONIA 3 YRS+ CPT-4: 62354 06/19/2017 URINALYSIS NONAUTO W/O SCOPE CPT-4: 41294 09/08/2015 IMMUNIZATION ADMIN CPT -4: 83360 03/30/2015 ADACEL TDAP VACCINE 7 YRS/> IM CPT-4: 83999 03/30/2015 URINALYSIS NONAUTO W/O SCOPE CPT-4: 12407 03/22/2015 THER/PROPH/DIAG INJ SC/IM CPT-4: 32987 11/11/2014 ROCEPHIN, PER 250 MG CPT-4: J0696 11/11/2014 ROUTINE VENIPUNCTURE CPT-4: 46664 10/15/2014 HgbA1c CPT-4: 25703 10/15/2014 CBC (COMPLETE CBC W/AUTO DIFF WBC) CPT-4: 02319 10/15/2014 CHEM 14 (COMPREHEN METABOLIC PANEL) CPT-4: 93173 10/15/2014 TSH (ASSAY THYROID STIM HORMONE) CPT-4: 95829 10/15/2014 VIT D TOTL (VITAMIN D 25 HYDROXY) CPT-4: 08362 10/15/2014 FREE T4 (ASSAY OF FREE THYROXINE) CPT-4: 72654 10/15/2014 ROUTINE VENIPUNCTURE CPT-4: 30681 06/23/2014 CHEM 14 (COMPREHEN METABOLIC PANEL) CPT-4: 79658 06/23/2014 TSH (ASSAY THYROID STIM HORMONE) CPT-4: 77967 06/23/2014 FREE T4 (ASSAY OF FREE THYROXINE) CPT-4: 60083 06/23/2014 URINALYSIS NONAUTO W/O SCOPE CPT-4: 17322 12/15/2013 ROUTINE VENIPUNCTURE CPT-4: 45075 12/15/2013 THER/PROPH/DIAG INJ SC/IM CPT-4: 16194 11/03/2012 VITAMIN B12 INJECTION CPT-4: J3420 11/03/2012 THER/PROPH/DIAG INJ SC/IM CPT-4: 27242 10/20/2012 VITAMIN B12 INJECTION CPT-4: J3420 10/20/2012 VITAMIN B12 INJECTION CPT-4: J3420 09/11/2012 THER/PROPH/DIAG INJ SC/IM CPT-4: 01920 09/11/2012 THER/PROPH/DIAG INJ SC/IM CPT-4: 08219 08/11/2012 VITAMIN B12 INJECTION CPT-4: J3420 08/11/2012 THER/PROPH/DIAG INJ SC/IM CPT-4: 24644 07/21/2012 VITAMIN B12 INJECTION CPT-4: J3420 07/21/2012 Vital Signs Date Vital 02/11/2018 Blood Pressure 1: 122/84 Code : 8480-6 BMI: 32.4 Code : 88084-8 Heart Rate 1 : 71 bpm Height: 5'6" SpO2: 97% Weight: 201 lbs 11/12/2017 Blood Pressure 1: 130/82 Code : 8480-6 BMI: 32.3 Code : 97035-7 Height: 5'6" Weight: 200 lbs 08/20/2017 Blood Pressure 1: 126/78 Code : 8480-6 BMI: 32.3 Code : 00869-8 Heart Rate 1 : 66 bpm Height: 5'6" SpO2: 98% Weight: 200 lbs 06/24/2017 Blood Pressure 1: 134/78 Code : 8480-6 BMI: 34.2 Code : 33679-1 Heart Rate 1 : 71 bpm Height: 5'6" SpO2: 95% Weight: 212 lbs 05/22/2017 Blood Pressure 1: 12278 Code : 8480-6 BMI: 33.9 Code : 53531-1 Heart Rate 1 : 76 bpm Height: 5'6" SpO2: 97% Weight: 210 lbs 05/10/2017 Blood Pressure 1: 130/84 Code : 8480-6 BMI: 34.1 Code : 87833-1 Heart Rate 1 : 90 bpm Height: 5'6" SpO2: 98% Temperature: 36.9 (C) / 98.5 (F) Weight: 211 lbs 04/08/2017 Blood Pressure 1: 132/78 Code : 8480-6 BMI: 34.4 Code : 45519-3 Heart Rate 1 : 72 bpm Height: 5'6" SpO2: 97% Weight: 213 lbs 02/20/2017 Blood Pressure 1: 130/90 Code : 8480-6 BMI: 33.9 Code : 88796-8 Heart Rate 1 : 74 bpm Height: 5'6" SpO2: 98% Weight: 210 lbs 11/21/2016 Blood Pressure 1: 132/74 Code : 8480-6 BMI: 34.2 Code : 89890-1 Heart Rate 1 : 66 bpm Height: 5'6" SpO2: 97% Weight: 212 lbs 08/29/2016 Blood Pressure 1: 136/82 Code : 8480-6 BMI: 33.7 Code : 79337-7 Heart Rate 1 : 70 bpm Height: 5'6" Respiratory Rate: 18 bpm SpO2: 98% Weight: 209 lbs 07/05/2016 Blood Pressure 1: 142/76 Code : 8480-6 BMI: 33.2 Code : 12586-8 Heart Rate 1 : 73 bpm Height: 5'6" SpO2: 98% Weight: 206 lbs 06/11/2016 Blood Pressure 1: 130/82 Code : 8480-6 BMI: 33.4 Code : 00026-3 Heart Rate 1 : 76 bpm Height: 5'6" SpO2: 97% Weight: 207 lbs 06/04/2016 Blood Pressure 1: 134/80 Code : 8480-6 BMI: 33.4 Code : 05736-7 Heart Rate 1 : 71 bpm Height: 5'6" SpO2: 98% Weight: 207 lbs 04/10/2016 Blood Pressure 1: 124/80 Code : 8480-6 BMI: 34.4 Code : 79114-8 Heart Rate 1 : 76 bpm Height: 5'6" SpO2: 96% Weight: 213 lbs 03/26/2016 Blood Pressure 1: 118/74 Code : 8480-6 BMI: 34.4 Code : 09382-4 Heart Rate 1 : 72 bpm Height: 5'6" SpO2: 98% Weight: 213 lbs 01/23/2016 Blood Pressure 1: 134/76 Code : 8480-6 BMI: 33.7 Code : 30518-3 Heart Rate 1 : 76 bpm Height: 5'6" SpO2: 97% Weight: 209 lbs 12/26/2015 Blood Pressure 1: 116/76 Code : 8480-6 BMI: 33.4 Code : 44851-3 Heart Rate 1 : 78 bpm Height: 5'6" SpO2: 98% Weight: 207 lbs 11/02/2015 Blood Pressure 1: 118/80 Code : 8480-6 BMI: 33.6 Code : 16403-5 Heart Rate 1 : 75 bpm Height: 5'6" SpO2: 95% Weight: 208 lbs 09/13/2015 Blood Pressure 1: 140/82 Code : 8480-6 BMI: 33.6 Code : 15802-5 Heart Rate 1 : 92 bpm Height: 5'6" SpO2: 96% Weight: 208 lbs 09/07/2015 Blood Pressure 1: 140/82 Code : 8480-6 BMI: 33.4 Code : 61750-2 Heart Rate 1 : 85 bpm Height: 5'6" SpO2: 95% Weight: 207 lbs 08/16/2015 Blood Pressure 1: 138/84 Code : 8480-6 BMI: 32.9 Code : 12776-5 Heart Rate 1 : 87 bpm Height: 5'6" SpO2: 97% Weight: 204 lbs 06/13/2015 Blood Pressure 1: 130/82 Code : 8480-6 BMI: 33.1 Code : 41479-7 Heart Rate 1 : 84 bpm Height: 5'6" SpO2: 96% Weight: 205 lbs 05/10/2015 Blood Pressure 1: 118/70 Code : 8480-6 BMI: 32.9 Code : 13983-5 Heart Rate 1 : 77 bpm Height: 5'6" SpO2: 97% Weight: 204 lbs 03/22/2015 Blood Pressure 1: 118/76 Code : 8480-6 BMI: 32.0 Code : 28493-5 Heart Rate 1 : 88 bpm Height: 5'6" Temperature: 36.2 (C) / 97.2 (F) Weight: 198 lbs 01/17/2015 Blood Pressure 1: 120/80 Code : 8480-6 BMI: 32.6 Code : 33844-2 Heart Rate 1 : 88 bpm Height: 5'6" Weight: 202 lbs 11/22/2014 Blood Pressure 1: 118/82 Code : 8480-6 BMI: 31.8 Code : 57442-3 Heart Rate 1 : 72 bpm Height: 5'6" Weight: 197 lbs 10/27/2014 Blood Pressure 1: 130/82 Code : 8480-6 BMI: 32.0 Code : 49032-4 Heart Rate 1 : 86 bpm Height: 5'6" SpO2: 97% Weight: 198 lbs 10/15/2014 Blood Pressure 1: 118/82 Code : 8480-6 BMI: 32.1 Code : 41474-2 Heart Rate 1 : 100 bpm Height: 5'6" Weight: 199 lbs 09/30/2014 Blood Pressure 1: 118/86 Code : 8480-6 BMI: 32.0 Code : 86738-7 Heart Rate 1 : 80 bpm Height: 5'6" Temperature: 35.7 (C) / 96.3 (F) Weight: 198 lbs 07/14/2014 Blood Pressure 1: 116/80 Code : 8480-6 BMI: 32.9 Code : 70022-5 Heart Rate 1 : 80 bpm Height: 5'6" Weight: 204 lbs 06/23/2014 Blood Pressure 1: 128/88 Code : 8480-6 BMI: 33.7 Code : 85808-9 Height: 5'6" Weight: 209 lbs 04/09/2014 Blood Pressure 1: 138/82 Code : 8480-6 Heart Rate 1: 90 bpm SpO2: 97% Temperature: 35.8 (C) / 96.5 (F) Weight: 210 lbs 03/16/2014 Blood Pressure 1: 116/80 Code : 8480-6 BMI: 34.1 Code : 47126-7 Heart Rate 1 : 88 bpm Height: 5'6" Weight: 211 lbs 01/12/2014 Blood Pressure 1: 124/70 Code : 8480-6 BMI: 33.4 Code : 55801-5 Heart Rate 1 : 76 bpm Height: 5'6" Weight: 207 lbs 12/15/2013 Blood Pressure 1: 144/100 Code: 8480-6 Blood Pressure 2: 124/90 Code: 8480-6 Heart Rate 1: 72 bpm Weight: 215 lbs 10/20/2013 Blood Pressure 1: 130/84 Code : 8480-6 BMI: 34.5 Code : 32709-2 Heart Rate 1 : 84 bpm Height: 5'6" Weight: 214 lbs 09/15/2013 Blood Pressure 1: 128/90 Code : 8480-6 BMI: 34.9 Code : 39706-3 Heart Rate 1 : 88 bpm Height: 5'6" Temperature: 36.5 (C) / 97.7 (F) Weight: 216 lbs 07/27/2013 Blood Pressure 1: 138/90 Code : 8480-6 BMI: 34.4 Code : 64487-4 Heart Rate 1 : 88 bpm Height: 5'6" Weight: 213 lbs 06/09/2013 Blood Pressure 1: 138/92 Code : 8480-6 Heart Rate 1: 88 bpm Weight: 04/20/2013 Blood Pressure 1: 142/92 Code : 8480-6 BMI: 34.4 Code : 69077-9 Heart Rate 1 : 88 bpm Height: 5'6" Weight: 213 lbs 03/23/2013 Blood Pressure 1: 116/84 Code : 8480-6 BMI: 34.1 Code : 85126-6 Heart Rate 1 : 76 bpm Height: 5'6" Weight: 211 lbs 01/21/2013 Blood Pressure 1: 130/88 Code : 8480-6 BMI: 34.5 Code : 98022-6 Heart Rate 1 : 80 bpm Height: 5'6" Weight: 214 lbs 12/25/2012 Blood Pressure 1: 112/70 Code : 8480-6 Heart Rate 1: 84 bpm Respiratory Rate : 20 bpm Weight: 214 lbs 8 oz 10/20/2012 Blood Pressure 1: 124/80 Code : 8480-6 BMI: 34.4 Code : 97592-2 Heart Rate 1 : 84 bpm Height: 5'6" Temperature: 36.7 (C) / 98.0 (F) Weight: 213 lbs 08/11/2012 Blood Pressure 1: 116/80 Code : 8480-6 BMI: 33.9 Code : 22021-0 Heart Rate 1 : 76 bpm Height: 5'6" Respiratory Rate: 20 bpm Weight: 210 lbs 07/10/2012 Blood Pressure 1: 110/76 Code : 8480-6 BMI: 46.5 Code : 15682-6 Heart Rate 1 : 84 bpm Height: 4'8" Respiratory Rate: 20 bpm Weight: 207 lbs 8 oz Functional Status No Functional Status data History of Present Illness Symptom Name Status Result Effective Date Notes hypertension Quality primary hypertension 02/11/2018 None hypertension [...] of Symptom _ weeks ago 09/30/2014 around [facility] neck pain Location in the lower cervical/ [...] data Encounters Encounter Performer Location Codes Date ([id number]) [id number] EST. 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 PATIENT, LEVEL III Diagnosis: Acute recurrent maxillary sinusitis[ICD10: J01.01] Diagnosis: Encounter for other preprocedural examination[ICD10: Z01.818] Mira Ledesma MD, [facility] CPT-4: 80390 06/24/2017 ([id number]) 95776 EST. PATIENT, LEVEL IV Diagnosis: Acute recurrent frontal sinusitis[ICD10: J01.11] Diagnosis: Type 2 diabetes mellitus without complications[ICD10: E11.9] Diagnosis: Essential (primary) hypertension[ICD10: I10] Caty Ledesma MD, [facility] CPT-4: 50829 05/22/2017 ([id number]) 56411 EST. PATIENT, LEVEL III Diagnosis: Acute recurrent maxillary sinusitis[ICD10: J01.01] Diagnosis: Cough[ICD10: R05] [facility], [facility] [facility] 81054 05/10/2017 ([id number]) 60525 EST. PATIENT, LEVEL IV Diagnosis: Generalized anxiety disorder[ICD10: F41.1] Diagnosis: Muscle weakness (generalized)[ICD10: M62.81] Diagnosis: Somnolence[ICD10: R40.0] Diagnosis: Snoring[ICD10: R06.83] Caty eLdesma MD, [facility] CPT-4: 78313 04/08/2017 ([id number]) 62327 EST. 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 PATIENT, LEVEL IV Diagnosis: Generalized anxiety disorder[ICD10: F41.1] Diagnosis: Major depressive disorder, recurrent, moderate[ICD10: F33.1] Diagnosis: Chronic pain syndrome[ICD10: G89.4] Diagnosis: Other specified polyneuropathies[ICD10: G62.89] Diagnosis: Muscle weakness (generalized)[ICD10: M62.81] Diagnosis: Essential (primary) hypertension[ICD10: I10] Caty Ledesma MD, [facility] CPT-4: 01620 11/21/2016 ([id number]) 38834 EST. PATIENT, LEVEL III Diagnosis: Generalized abdominal pain[ICD10: R10.84] Diagnosis: Essential (primary) hypertension[ICD10: I10] Caty Ledesma MD, [facility] CPT-4: 21194 08/29/2016 ([id number]) 78934 EST. PATIENT, LEVEL III Diagnosis: Epigastric pain[ICD10: R10.13] Caty Ledesma MD [facility] CPT- 4: 46775 07/05/2016 ([id number]) 85378 EST. PATIENT, LEVEL III Diagnosis: Toxic gastroenteritis and colitis[ICD10: K52.1] Caty Ledesma MD, [facility] CPT-4: 03736 06/11/2016 86858 EST. PATIENT, LEVEL III Diagnosis: Left upper quadrant pain[ICD10: R10.12] Estrella Ledesma MD, [facility] CPT-4: 52412 06/04/2016 ([id number]) 56814 EST. PATIENT, LEVEL III Diagnosis: Cellulitis of left toe[ICD10: L03.032] Mira Ledesma MD, [facility] CPT-4: 93098 04/10/2016 ([id number]) 79324 EST. PATIENT, LEVEL III Diagnosis: Essential (primary) hypertension[ICD10: I10] Diagnosis: Chronic pain syndrome[ICD10: G89.4] Diagnosis: Other fatigue[ICD10: R53.83] Caty Ledesma MD [facility] CPT- 4: 32913 03/26/2016 ([id number]) 38029 EST. PATIENT, LEVEL III Diagnosis: Gastro-esophageal reflux disease without esophagitis[ICD10: K21.9] Caty Ledesma MD, [facility] CPT-4: 45869 01/23/2016 ([id number]) 00858 EST. PATIENT, LEVEL IV Diagnosis: Type 2 diabetes mellitus without complications[ICD10: E11.9] Diagnosis: Gastro-esophageal reflux disease without esophagitis[ICD10: K21.9] Diagnosis: Functional diarrhea[ICD10: K59.1] Caty Ledesma MD, [facility] CPT-4: 96191 12/26/2015 83325 EST. PATIENT, LEVEL IV Diagnosis: Other seasonal allergic rhinitis[ICD10: J30.2] Diagnosis: Acute recurrent maxillary sinusitis[ICD10: J01.01] Diagnosis: Cough[ICD10: R05] Estrella Ledesma MD, [facility] CPT-4: 32350 11/02/2015 28854 EST. PATIENT, LEVEL III Diagnosis: Acute recurrent maxillary sinusitis[ICD10: J01.01] Diagnosis: Urgency of urination[ICD10: R39.15] Diagnosis: Cough[ICD10: R05] Diagnosis: Acute laryngopharyngitis[ICD10: J06.0] Estrella Ledesma MD, [facility] CPT-4: 90977 09/13/2015 44312 EST. PATIENT, LEVEL IV Diagnosis: Pain in left lower leg[ICD10: M79.662] Diagnosis: Cramp and spasm[ICD10: R25.2] Diagnosis: Acute nasopharyngitis [common cold][ICD10: J00] Estrella Ledesma MD, [facility] CPT-4: 50116 09/07/2015 ([id number]) 02323 EST. PATIENT, LEVEL IV Diagnosis: Essential (primary) hypertension[ICD10: I10] Diagnosis: Type 2 diabetes mellitus without complications[ICD10: E11.9] Diagnosis: Varicose veins of unspecified lower extremities with other complications[ICD10: I83.899] Caty Ledesma MD [facility] CPT-4: 30866 08/16/2015 ([id number]) 98483 EST. PATIENT, LEVEL IV Diagnosis: Type 2 diabetes mellitus without complications[ICD10: E11.9] Diagnosis: Other mixed anxiety disorders[ICD10: F41.3] Diagnosis: Vitamin deficiency, unspecified[ICD10: E56.9] Diagnosis: Essential (primary) hypertension[ICD10: I10] Caty Ledesma MD [facility] CPT-4: 41852 06/13/2015 ([id number]) 49361 EST. PATIENT, LEVEL IV Diagnosis: ESSENTIAL HYPERTENSION[ICD9: 401.9] Diagnosis: CHRONIC PAIN SYNDROME[ICD9: 338.4] Caty Ledesma MD [facility] CPT-4: 89789 05/10/2015 ([id number]) 59111 EST. PATIENT, LEVEL III Diagnosis: Back pain[ICD9: 724.5] Diagnosis: URINARY FREQUENCY[ICD9: 788.41] Caty Ledesma MD [facility] CPT- 4: 53006 03/22/2015 ([id number]) 57382 EST. PATIENT, LEVEL IV Diagnosis: ESSENTIAL HYPERTENSION[ICD9: 401.9] Diagnosis: DIABETES TYPE II[ICD9: 250.00] Diagnosis: Varicose vein[ICD9: 454.9] Caty Ledesma MD [facility] CPT- 4: 21479 01/17/2015 ([id number]) 24427 EST. PATIENT, LEVEL IV Diagnosis: HEADACHE[ICD9: 784.0] Diagnosis: Neck pain[ICD9: 723.1] Diagnosis: Vision changes[ICD9: 368.9] Diagnosis: Nausea[ICD9: 787.02] Mira Ledesma MD, [facility] CPT-4: 40880 11/22/2014 ([id number]) 96761 EST. PATIENT, LEVEL I Diagnosis: Meningitis exposure[ICD9: V01.89] Caty Ledesma MD [facility] CPT-4: 72194 11/11/2014 ([id number]) 87174 EST. PATIENT, LEVEL IV Diagnosis: Elevated blood sugar[ICD9: 790.29] Diagnosis: ESSENTIAL HYPERTENSION[ICD9: 401.9] Caty Ledesma MD, [facility] CPT-4: 90147 10/27/2014 ([id number]) 18432 EST. PATIENT, LEVEL IV Diagnosis: Costochondritis[ICD9: 733.6] Diagnosis: ALLERGIC RHINITIS[ICD9: 477.9] Diagnosis: Vitamin D deficiency[ICD9: 268.9] Diagnosis: Elevated blood sugar[ICD9: 790.29] Mira Ledesma MD, [facility] CPT-4: 09747 10/15/2014 ([id number]) 68586 EST. PATIENT, LEVEL IV Diagnosis: ESSENTIAL HYPERTENSION[ICD9: 401.9] Diagnosis: Diarrhea[ICD9: 787.91] Caty Ledesma MD, [facility] CPT-4: 17260 09/30/2014 ([id number]) 09135 EST. PATIENT, LEVEL IV Diagnosis: Raynauds disease[ICD9: 443.0] Diagnosis: Nausea[ICD9: 787.02] Diagnosis: ESSENTIAL HYPERTENSION[ICD9: 401.9] Caty Ledesma MD, [facility] CPT-4: 96804 07/14/2014 ([id number]) 14207 EST. PATIENT, LEVEL IV Diagnosis: ESSENTIAL HYPERTENSION[ICD9: 401.9] Diagnosis: Esophageal reflux[ICD9: 530.81] Diagnosis: Hyponatremia[ICD9: 276.1] Diagnosis: OBESITY[ICD9: 278.00] Diagnosis: Chronic migraine[ICD9: 346.70] Caty Ledesma MD, [facility] CPT- 4: 22906 06/23/2014 ([id number]) 93196 EST. PATIENT, LEVEL IV Diagnosis: ESSENTIAL HYPERTENSION[ICD9: 401.9] Diagnosis: GERD (gastroesophageal reflux disease)[ICD9: 530.81] Diagnosis: Costochondritis[ICD9: 733.6] Mira Ledesma MD, [facility] CPT-4: 33875 04/09/2014 ([id number]) 05771 EST. PATIENT, LEVEL IV Diagnosis: ESSENTIAL HYPERTENSION[ICD9: 401.9] Diagnosis: RAYNAUD'S SYNDROME[ICD9: 443.0] Caty Ledesma MD [facility] CPT- 4: 89169 03/16/2014 ([id number]) 12048 EST. PATIENT, LEVEL III Diagnosis: ESSENTIAL HYPERTENSION[SNOMED: 57443503] Diagnosis: ALLERGIC RHINITIS[ICD9: 477.9] Diagnosis: Knee pain[ICD9: 719.46] Caty Ledesma MD [facility] CPT-4: 94412 01/12/2014 ([id number]) 30235 EST. PATIENT, LEVEL IV Diagnosis: ALLERGIC RHINITIS[ICD9: 477.9] Diagnosis: ESSENTIAL HYPERTENSION[SNOMED: 95619109] Diagnosis: Fatigue[ICD9: 780.79] Caty Ledesma MD [facility] CPT-4: 24712 12/15/2013 ([id number]) 73331 EST. PATIENT, LEVEL III Diagnosis: ESSENTIAL HYPERTENSION[SNOMED: 80326984] Diagnosis: Skin lesion[ICD9: 709.9] Diagnosis: Raynauds disease[ICD9: 443.0] Caty Ledesma MD [facility] CPT- 4: 77492 10/20/2013 ([id number]) 38903 EST. PATIENT, LEVEL III Diagnosis: ACUTE SINUSITIS[ICD9: 461.9] Caty Ledesma MD [facility] CPT- 4: 10739 09/15/2013 ([id number]) 21394 EST. PATIENT, LEVEL IV Diagnosis: ESSENTIAL HYPERTENSION[SNOMED: 55946872] Diagnosis: Peripheral neuropathy[ICD9: 356.9] Diagnosis: Vitamin D deficiency[ICD9: 268.9] Diagnosis: Vitamin B12 deficiency[ICD9: 266.2] Caty Ledesma MD, [facility] CPT-4: 47373 07/27/2013 ([id number]) 24603 EST. PATIENT, LEVEL III Diagnosis: ACUTE SINUSITIS[ICD9: 461.9] Diagnosis: COUGH[ICD9: 786.2] Mira Ledesma MD, [facility] CPT-4: 71312 06/09/2013 89470 EST. PATIENT, LEVEL IV Diagnosis: HEADACHE[ICD9: 784.0] Diagnosis: Dysphagia[ICD9: 787.20] Diagnosis: Esophageal reflux[ICD9: 530.81] Caty Ledesma MD [facility] CPT- 4: 08533 04/20/2013 [id number]) 72159 EST. PATIENT, LEVEL IV Diagnosis: Seasonal allergic rhinitis[ICD9: 477.9] Diagnosis: HEADACHE[ICD9: 784.0] Diagnosis: ESSENTIAL HYPERTENSION[SNOMED: 63912956] Caty Ledesma MD [facility] CPT-4: 96391 03/23/2013 99499 55338 EST. PATIENT, LEVEL III Diagnosis: ABNORMALITY OF GAIT[ICD9: 781.2] Diagnosis: B-COMPLEX DEFIC NEC[ICD9: 266.2] Caty Ledesma MD [facility] CPT-4: 11835 01/21/2013 [id number] 81296 EST. PATIENT, LEVEL IV Diagnosis: ESSENTIAL HYPERTENSION[SNOMED: 99463019] Diagnosis: Breast pain[ICD9: 611.71] Caty Ledesma MD [facility] CPT-4: 29882 12/25/[id number]) 95471 EST. PATIENT, LEVEL III Diagnosis: ESSENTIAL HYPERTENSION[SNOMED: 60117692] Diagnosis: ACUTE URI[ICD9: 465.9] Caty Ledesma MD [facility] CPT-4: 68131 10/20/2012 [id number]) 54953 EST. PATIENT, LEVEL IV Diagnosis: B-COMPLEX DEFIC NEC[ICD9: 266.2] Diagnosis: ESSENTIAL HYPERTENSION[SNOMED: 78145665] Diagnosis: Gait instability[ICD9: 781.2] Diagnosis: Back pain[ICD9: 724.5] Caty Ledesma MD, [facility] CPT-4: 04637 08/11/2012 OFFICE VISIT, NEW - LEVEL 4 Diagnosis: ESSENTIAL HYPERTENSION[SNOMED: 98198460] Diagnosis: ACUTE SINUSITIS[ICD9: 461.9] Diagnosis: Gait instability[ICD9: 781.2] Diagnosis: Weakness of both legs[ICD9: 729.89] Mira Ledesma MD, [facility] CPT-4: 26613 07/10/2012 Plan of Care Planned Activity Notes [...] to medications. 02/11/2018 Appointment: [facility] [place] ([facility] min) Moderate [...] 25mcg daily. 11/12/2017 Appointment: [facility] Led[facility] [place] (15 min) Moderate 11/12/2017 Patient Education: [...] [phone] (15 min) Moderate 08/20/2017 Patient Education: Patient [...] Weaver 06/24/2017 [phone] ([facility] min[facility] Complex 06/24/2017 Patient Education: [...] controlled. 05/22/2017 Appointment: Caty Ledesma WPtel: [phone] [facility] (15 min) Moderate 05/22/2017 Patient Education: Patient Medication Summary Completed 05/22/2017 Visit Plan: Sinusitis - Pt has acute infection - pain in face, maxillary region, Pt informed to use decongestant, RX given to patient, sinus rinses also recommended. Call if symptoms do not show improvement. 05/10/2017 Appointment: Mira Valladares WPtel: [phone] [phone] [place] (15 min) Moderate 05/10/2017 Patient Education: Patient Medication Summary Completed 05/10/2017 Visit Plan: Fatigue - daytime - recommended sleep study, change pristiq to night-time dosing. Sleep study to be scheduled - RX for sleep study sent to hospital. - pt has significant sleepiness during the day - she had a score of 17 on epiworth sleepiness scale. 04/08/2017 Appointment: Caty eLdesma WPtel: [facility] (15 min) Moderate 04/08/2017 Patient Education: Patient [...] ultrasound. 02/20/2017 Appointment: Caty Ledesma WPtel: [phone] [facility] [place] (30 min) Complex 02/20/2017 Patient [...] patient. 11/21/2016 Appointment: Caty Ledesma WPtel: [phone] [facility] (15 min) Moderate 11/21/2016 Patient Education: [...] not improving. 08/29/2016 App[facility]ment: [phone] ([facility]) Complex 08/29/2016 Patient Education: Patient Medication Summary Completed 08/29/2016 Patient Education: Hypertension Completed 08/29/2016 Visit Plan: referral to dr. aburto for cysts of right abdomen near ribs 07/05/2016 Appointment: [phone] (15 min) Moderate 07/05/2016 [...] pain. 06/04/2016 [facility]ment[phone] ([facility] min) Moderate 06/04/2016 Patient Education: [...] plan. 04/10/2016 Appointment: Mira Valladares WPtel: [phone] [phone] (30 min) Complex 04/10/2016 Patient Education: Patient [...] 12/26/2015 Care Plan: Referral Order SNOMED-CT : 369220507 Pending 12/26/2015 Appointment: Caty Ledesma WPtel: [address] [place], [place] [id number] (15 min) Moderate 12/19/2015 Visit Plan: URI [...] to keep appt with Dr. Kwon in [place] for treatment of varicose veins. 08/16/2015 Patient [...] of over-medication. 05/10/2015 Appointment: [phone] Follow up 05/10/2015 Patient [...] veins - referral to Vascular team from [facility] 01/17/2015 Appointment: [phone] Follow up 01/17/2015 Patient Education: Patient Medication Summary Completed 01/17/2015 Patient Education: Hypertension Completed 01/17/2015 Care Plan: Referral Order referral to [facility] for varicose veins - need to see if the patient can have her ultrasound studies HERE with adonis JEAN BAPTISTEOMED-CT : [id number] Ordered 01/17/2015 Appointment: [phone] Follow [facility] 01/04/2015 Visit Plan: Worsening pknhcwga-vqqmbh-lkre injury 1 week ago-recommend CT head due [...] three weeks. 10/27/2014 Appointment: Caty Ledesma WPtel: [phone] [facility] Follow up 10/27/2014 Patient Education: Patient [...] the nasal steroid allergy spray. Elevated blood oocieg-sntjpfwtt-jlihny-check Hgb A1c as well as TSH Vitamin D deficiency-check vitamin D level 10/15/2014 Appointment: Follow up 10/15/2014 Patient Education: Patient Medication Summary Completed 10/15/2014 Care Plan: TSH Pending 10/15/2014 Care Plan: A1C HPLC [facility] : 38290-7 Pending 10/15/2014 Care Plan: VIT D TOTL [...] stomach pain. 09/30/2014 Appointment: Caty Ledesma WPtel: [phone] [facility] Follow up 09/30/2014 Patient Education: Patient Medication Summary Completed 09/30/2014 Patient Education: Hypertension Completed 09/30/2014 Appointment: Caty Ledesma WPtel: [phone] [facility] Follow up 09/29/2014 Visit Plan: Nausea [...] home. 07/14/2014 Appointment: [phone] Follow [facility] 07/14/2014 Patient Education: Patient Medication [...] labs. 06/23/2014 Appointment: [phone] Follow [facility] 06/23/2014 Patient Education: Patient Medication [...] are worsening. 03/16/2014 Appointment: Caty Ledesma WPtel: [facility] Follow up 03/16/2014 Patient Education: Patient [...] allergy spray. 01/12/2014 Appointment: Caty Ledesma WPtel: [facility] Follow up 01/12/2014 Patient Education: Patient [...] Fatigue-check labs 12/15/2013 Appointment: Mira Valladares WPtel: [phone] Follow up 12/15/2013 Patient Education: Patient Medication [...] - on scalp - referral to her [employer] - Dr. Teran. Recommended pt to call for appt. Raynaud - very mild case - pt to continue with norvasc, monitor symptoms, keep hands warm, call if symptoms worsen, if fingers turn and stay persistently purple, will consider topical treatments versus increase in norvasc. 10/20/2013 Appointment: Caty Ledesma WPtel: [phone] [phone] Follow up 10/20/2013 Patient Education: Patient Medication Summary Completed 10/20/2013 Patient Education: Hypertension Completed 10/20/2013 Visit Plan: Sinusitis - Pt has acute infection - pain in face, maxillary region, Pt informed to use decongestant, RX given to patient, sinus rinses also recommended. Call if symptoms do not show improvement. 09/15/2013 Appointment: Caty Ledesma WPtel: [phone] [facility] Sick 09/15/2013 Patient Education: Patient Medication [...] tolerance test. 07/27/2013 Appointment: Caty Ledesma WPtel: [phone] [facility] Follow up 07/27/2013 Patient Education: Patient Medication Summary Completed 07/27/2013 Patient Education: Hypertension Completed 07/27/2013 Visit Plan: Sinusitis - Pt has acute infection - pain in face, maxillary region, Pt informed to use decongestant, RX given to patient, sinus rinses also recommended. Call if symptoms do not show improvement. 06/09/2013 Appointment: Mira Valladares WPtel: [phone] [phone] Sick 06/09/2013 Patient Education: Patient Medication Summary [...] and pepcid 04/20/2013 Appointment: Mira Valladares WPtel: [phone] [phone] Other 04/20/2013 Patient Education: Patient Medication Summary [...] recommend that Stephanie see Jose Luis at [facility] for balance and gait training. B12 deficiency - improved with b12 shots, will have patient go back to every 2 week injections instead of weekly injections. 01/21/2013 Appointment: [phone] Follow [facility] 01/21/2013 Patient [...] [phone] [place] Follow up 10/20/2012 Patient Education: Patient Medication Summary Completed 10/20/2012 Patient Education: Hypertension Completed 10/20/2012 Appointment: [phone] [place] Injection 09/11/2012 Patient [...] a surgeon. 08/11/2012 Appointment: [facility]y Ledesma [facility]el: [facility] [place] Follow up 08/11/2012 Patient Education: Patient Medication Summary Completed 08/11/2012 Patient Education: Hypertension Completed 08/11/2012 Appointment: [phone] [place] Injection 07/21/2012 Patient Education: Patient Medication [...] level. 07/10/2012 Appointment: [phone] New Patient 07/10/2012 Patient Education: Patient Medication Summary Completed 07/10/2012 Patient Education: High Blood Pressure: Essential Hypertension Completed 2011 Referral: Blaise Aburto Info. faxed Completed Referral: Blaise Aburto Referral Appointment Requested Referral: [facility], - Referral Appointment [...] the nasal steroid allergy spray. Elevated blood lyypqf-sexqidogg-getscf-check Hgb A1c as well as TSH Vitamin [...] 17 on epiworth sleepiness scale. . Worsening ndzbmpbe-xhvxvz-tzvc injury 1 week ago- recommend CT head [...] change in current management . Hypertension - uncontrolled - the patient's [...] to keep appt with Dr. Kwon in [place] for treatment of varicose veins. . Sinusitis [...] veins - referral to Vascular team from [facility] RESTART NASAL SPRAY TWICE DAILY CHECK [...] concussion - recommend that Stephanie Amaya at [facility] for balance and gait training. [...] - on scalp - referral to her [employer] attendant [employer] - Dr. Teran. Recommended pt to call [...]
--- OUTSIDE RECORDS SUMMARY | 2019-01-07 08:57 | XMS REPORT | Continuity of Care Document ---
Author Organization Unknown Address Unknown Allergies Active Description Code Type Severity Reaction Onset Reported/Identified Relationship to Patient Clinical Status Yes NUTS NUTS Mild N/ A 02/26/2014 Yes dissolvable stitches dissolvable stitches Unknown N/A 09/25/2016 Yes levofloxacin [id number] Drug Allergy Severe HIVES, SHORTNES 06/21/2018 Yes nitrofurantoin [id number] Drug Allergy Severe HIVES, SHORTNES 06/21/2018 Yes duloxetine [id number] Drug Allergy Moderate TROUBLE BREATHI 06/21/2018 Yes gabapentin [id number] Drug Allergy Moderate SICK FEELING, H 06/21/2018 Yes milnacipran [id number] Drug Allergy Moderate NAUSEA, MIGRAIN 06/21/2018 Yes acetaminophen [id number] Drug Allergy Mild ITCHING, INSOMN 06/21/2018 Yes gluten [id number] Drug Allergy Mild N/A 06/21/2018 Yes levomefolate calcium [id number] Drug Allergy Mild NAUSEA, WEIGHT 06/21 Yes mecobalamin [id number] Drug Allergy Mild NAUSEA, WEIGHT 06/21/2018 Yes oxycodone [id number] Drug Allergy Mild ITCHING, INSOMN 06/21/2018 Yes prednisone [id number] Drug Allergy Mild N/A 06/21/2018 Yes pyridoxal phosphate [id number] Drug Allergy Mild NAUSEA, WEIGHT 06/21 Yes tramadol [id number] Drug Allergy Mild HIVES, ITCHING 06/21/2018 Yes levothyroxine sodium [id number] Drug Allergy Unknown mood swings 2017 Medications There is no data. Problems Date Dx Coded Attending Type Code Diagnosis Diagnosed By 12/19/2010 Ot 623.8 NONINFLAM DIS VAGINA NEC 12/19/2010 Ot 625.9 FEM GENITAL SYMPTOMS NOS 09/11/2013 BRAYAN BRUNOP Ot V57.21 ENCOUNTER FOR OCCUPATIONAL THERAPY 09/11/2013 BRAYAN BRUNO OXYACETYLENE WELDER Ot V58.78 AFTERCARE POST SURGERY MUSCULOSKELETAL S 11/04/2013 BRAYAN BRUNO Ot V57.21 ENCOUNTER FOR OCCUPATIONAL THERAPY 11/04/2013 BRAYAN BRUNO [facility] Ot V58.78 AFTERCARE POST SURGERY MUSCULOSKELETAL S 05/27/2014 ALBERTO SANTOS DO Ot 041.49 OTHER AND UNSPECIFIED ESCHERICHIA COLI [ 07/28/2014 Ot 041.49 08/04/2014 KIANA REY ANDREA C Ot 595.2 CHRONIC CYSTITIS NEC 08/04/2014 KIANA REY ANDREA C Ot 618.01 CYSTOCELE, MIDLINE 08/04/2014 KIANA DO ANDREA C Ot 625.6 FEM STRESS INCONTINENCE 08/24/2014 BRUNO DO ANDREA C Ot 618.01 08/24/2014 BRUNO DO ANDREA C Ot 788.30 08/24/2014 BRUNO DO ANDREA C Ot V72.63 08/24/2014 BRUNO DO ANDREA C Ot V74.8 09/08/2014 KIANA REY ANDREA C Ot V76.12 09/29/2014 KIANA REY ANDREA C Ot V76.12 10/19/2014 JANETTE DE SOUZA, REINALDO Givens Ot 723.1 10/19/2014 JANETTE DE SOUZA, REINALDO Givens Ot 724.2 10/19/2014 JANETTE DE SOUZA, REINALDO Givens Ot 724.6 10/19/2014 JANETTE DE SOUZA, REINALDO Givens Ot V57.1 12/02/2014 JANETTE DE SOUZA, REINALDO Givens Ot 723.1 12/02/2014 REINALDO SAVAGE MD Ot 724.2 12/02/2014 REINALDO SAVAGE MD Ot 724.6 12/02/2014 REINALDO SAVAGE MD Ot V57.1 12/09/2014 REINALDO SAVAGE MD Ot 723.1 CERVICALGIA 12/09/2014 REINALDO SAVAGE MD Ot 724.2 LUMBAGO 12/09/2014 REINALDO SAVAGE MD Ot 724.6 DISORDERS OF SACRUM 12/09/2014 REINALDO SAVAGE MD Ot V57.1 PHYSICAL THERAPY NEC 12/10/2014 Ot 723.1 12/10/2014 Ot 784.0 12/10/2014 Ot 959.9 12/10/2014 Ot E000.8 12/10/2014 Ot E849.0 12/10/2014 Ot E888.9 02/21/2015 Ot 723.1 02/21/2015 Ot 784.0 02/21/2015 Ot 959.9 02/21/2015 Ot E000.8 02/21/2015 Ot E849.0 02/21/2015 Ot E888.9 03/29/2015 MARY IGNACIO APRN Ot 724.2 03/29/2015 MARY IGNACIO LABEL MACHINE OPERATOR Ot 788.1 04/07/2015 GLEN GARCIA Ot 272.4 04/07/2015 MARIO VENCES, GLEN Gutierrez Ot 278.00 04/07/2015 GLEN GARCIA Ot 401.9 04/07/2015 GLEN GARCIA Ot 433.10 04/07/2015 MARY IGNACIO APRN Ot 724.2 04/07/2015 MARY IGNACIO APRN Ot 788.1 05/26/2015 Ot 272.4 05/26/2015 Ot 278.00 05/26/2015 Ot 401.9 05/26/2015 Ot 433.10 05/26/2015 Ot V85.32 09/21/2015 KARIME DE SOUZA, PREET P Ot G43.909 09/21/2015 AUSTYN CALDERON LABEL MACHINE OPERATOR Ot M79.662 10/27/2015 BRAYAN BRUNO OXYACETYLENE WELDER Ot S83.239A 10/27/2015 BRAYAN BRUNO OXYACETYLENE WELDER Ot X58.XXXA 10/27/2015 BRAYAN BRUNO OXYACETYLENE WELDER Ot Y99.8 11/16/2015 BRAYAN BRUNO OXYACETYLENE WELDER Ot S83.239A 11/16/2015 BRAYAN BRUNO OXYACETYLENE WELDER Ot X58.XXXA 11/16/2015 BRAYAN BRUNO OXYACETYLENE WELDER Ot Y99.8 01/12/2016 JULIANNE DE SOUZA, JESSY Israel Ot Z01.818 ENCOUNTER FOR OTHER PREPROCEDURAL EXAMIN 01/13/2016 JULIANNE DE SOUZA, JESSY Israel Ot Z01.818 ENCOUNTER FOR OTHER PREPROCEDURAL EXAMIN 01/16/2016 JULIANNE DE SOUZA, JESSY Israel Ot K20.9 ESOPHAGITIS, UNSPECIFIED 01/16/2016 JULIANNE DE SOUZA, JESSY Israel Ot K25.9 GASTRIC ULCER, UNSP ACUTE OR CHRONIC, 01/16/2016 JULIANNE DE SOUZA, JESSY Israel Ot K29.70 GASTRITIS, UNSPECIFIED, WITHOUT BLEEDING 01/17/2016 JULIANNE DE SOUZA, JESSY Israel Ot K20.9 ESOPHAGITIS, UNSPECIFIED 01/17/2016 JULIANNE DE SOUZA, JESSY Israel Ot K25.9 GASTRIC ULCER, UNSP ACUTE OR CHRONIC, 01/17/2016 JULIANNE DE SOUZA, JESSY Israel Ot K29.70 GASTRITIS, UNSPECIFIED, WITHOUT BLEEDING 01/17/2016 BRETT REYES Ot Z12.31 ENCNTR SCREEN MAMMOGRAM FOR MALIGNANT NE 01/18/2016 JULIANNE DE SOUZA, JESSY Israel Ot Z01.818 ENCOUNTER FOR OTHER PREPROCEDURAL EXAMIN 01/18/2016 JULIANNE DE SOUZA, JESSY Israel Ot K20.9 ESOPHAGITIS, UNSPECIFIED 01/18/2016 JULIANNE DE SOUZA, JESSY Israel Ot K25.9 GASTRIC ULCER, UNSP ACUTE OR CHRONIC, 01/18/2016 JULIANNE DE SOUZA, JESSY Israel Ot K29.70 GASTRITIS, UNSPECIFIED, WITHOUT BLEEDING 01/22/2016 BRETT REYES Ot Z12.31 ENCNTR SCREEN MAMMOGRAM FOR MALIGNANT NE 02/09/2016 BRETT REYES Ot Z12.31 ENCNTR SCREEN MAMMOGRAM FOR MALIGNANT NE 04/24/2016 MARLEEN STERN DO Ot S63.502A UNSPECIFIED SPRAIN OF LEFT WRIST, INITIA 04/24/2016 MARLEEN STERN DO Ot S69.92XA UNSP INJURY OF LEFT WRIST, HAND AND FING 04/24/2016 MARLEEN STERN DO Ot W01.0XXA FALL SAME LEV FROM SLIP/TRIP W/O STRIKE 04/24/2016 MARLEEN STERN DO Ot Y92.[address] IN UNSP NON-INSTIT[facility] (PRIVATE 04/24/2016 MARLEEN STERN DO Ot Y99.8 OTHER EXTERNAL CAUSE STATUS 04/26/2016 MARLEEN STERN DO Ot S63.502A UNSPECIFIED SPRAIN OF LEFT WRIST, INITIA 04/26/2016 MARLEEN STERN DO Ot S69.92XA UNSP INJURY OF LEFT WRIST, HAND AND FING 04/26/2016 MARLEEN STERN DO Ot W01.0XXA FALL SAME LEV FROM SLIP/TRIP W/O STRIKE 04/26/2016 MARLEEN STERN DO Ot Y92.009 [facility] [address] IN [facility] (PRIVATE 04/26/2016 MARLEEN STERN DO Ot Y99.8 OTHER EXTERNAL CAUSE STATUS 05/10/2016 Ot 623.8 NONINFLAM DIS VAGINA NEC 05/10/2016 Ot 625.9 FEM GENITAL SYMPTOMS NOS 05/10/2016 Ot V72.83 EXAM PRE- OPERATIVE NEC 05/10/2016 Ot V74.8 SCREEN- BACTERIAL DIS NEC 05/10/2016 Ot 789.06 ABDOMINAL PAIN, EPIGASTRIC 05/10/2016 Ot 787.20 DYSPHAGIA, UNSPECIFIED 05/10/2016 Ot 784.0 HEADACHE 05/10/2016 Ot 959.09 INJURY OF FACE AND NECK 05/10/2016 Ot E000.8 OTHER EXTERNAL CAUSE STATUS 05/10/2016 Ot E849.0 ACCIDENT IN HOME 05/10/2016 Ot E888.9 FALL NOS 05/10/2016 Ot 780.79 OTH MALAISE FATIGUE 05/10/2016 Ot 784.0 HEADACHE 05/10/2016 Ot V15.88 HISTORY OF FALL 05/10/2016 Ot V76.12 OTH SCREEN MAMMO-MALIGN NEOPLASM OF BARB 05/10/2016 Ot 786.52 PAINFUL RESPIRATION 05/10/2016 JANETTE DE SOUZA, REINALDO Givens Ot 724.5 BACKACHE NOS 05/10/2016 JANETTE DE SOUZA, REINALDO Givens Ot 736.81 UNEQUAL LEG LENGTH 05/10/2016 REINALDO SAVAGE MD Ot 266.2 B-COMPLEX DEFIC NEC 05/10/2016 REINALDO SAVAGE MD Ot 268.9 VITAMIN D DEFICIENCY NOS 05/10/2016 REINALDO SAVAGE MD Ot 355.9 MONONEURITIS NOS 05/10/2016 REINALDO SAVAGE MD Ot 401.9 HYPERTENSION NOS 05/10/2016 REINALDO SAVAGE MD Ot V58.69 OTH MED,LT,CURRENT USE 05/10/2016 MICHELLE BRUNNER OXYACETYLENE WELDER Ot V76.12 OTH SCREEN MAMMO-MALIGN NEOPLASM OF BARB 05/10/2016 TANI DE SOUZA, ALBERTO Marte Ot 836.1 TEAR LAT MENISC KNEE-CUR 05/10/2016 ALBERTO FREIRE MD Ot E000.8 OTHER EXTERNAL CAUSE STATUS 05/10/2016 ALBERTO FREIRE MD Ot E849.0 ACCIDENT IN HOME 05/10/2016 ALBERTO FREIRE MD Ot E888.9 FALL NOS 05/10/2016 BRETT REYES OXYACETYLENE WELDER Ot 530.81 ESOPHAGEAL REFLUX 05/10/2016 BRETT REYES OXYACETYLENE WELDER Ot 786.2 COUGH 05/10/2016 ANJELICA REYESIE Lindy OXYACETYLENE WELDER Ot 786.50 CHEST PAIN NOS 05/10/2016 Ot 041.49 OTHER AND UNSPECIFIED ESCHERICHIA COLI [ 05/10/2016 ANDREA BRUNO DO Ot 618.01 CYSTOCELE, MIDLINE 05/10/2016 ANDREA BRUNO DO Ot 788.30 UNSPECIFIED URINARY INCONTINENCE 05/10/2016 ANDREA BRUNO DO Ot V72.63 PRE-PROCEDURAL LABORATORY EXAMINATION 05/10/2016 ANDREA BRUNO DO Ot V74.8 SCREEN-BACTERIAL DIS NEC 05/10/2016 ANDREA BRUNO DO Ot V76.12 OTH SCREEN MAMMO-MALIGN NEOPLASM OF BARB 05/10/2016 Ot 723.1 CERVICALGIA 05/10/2016 Ot 784.0 HEADACHE 05/10/2016 Ot 959.9 INJURY-SITE NOS 05/10/2016 Ot E000.8 OTHER EXTERNAL CAUSE STATUS 05/10/2016 Ot E849.0 ACCIDENT IN HOME 05/10/2016 Ot E888.9 FALL NOS 05/10/2016 GLEN GARCIA Ot 272.4 HYPERLIPIDEMIA NEC/NOS 05/10/2016 GLEN GARCIA Ot 278.00 OBESITY, NOS 05/10/2016 GLEN GARCIA Ot 401.9 HYPERTENSION NOS 05/10/2016 GLEN GARCIA Ot 433.10 CAROTID ARTERY OCCLUSION W O CEREBRAL IN 05/10/2016 Ot 272.4 HYPERLIPIDEMIA NEC/NOS 05/10/2016 Ot 278.00 OBESITY, NOS 05/10/2016 Ot 401.9 HYPERTENSION NOS 05/10/2016 Ot 433.10 CAROTID ARTERY OCCLUSION W O CEREBRAL IN 05/10/2016 Ot V85.32 BODY MASS INDEX 32.0-32.9, ADULT 05/10/2016 IGNACIO, MARY B LABEL MACHINE OPERATOR Ot 724.2 LUMBAGO 05/10/2016 MATEUS MARY Jenifer LABEL MACHINE OPERATOR Ot 788.1 DYSURIA 05/10/2016 KARIME DE SOUZA, PREET Marte Ot G43.909 MIGRAINE, UNSP, NOT INTRACTABLE, WITHOUT 05/10/2016 YUMIKO AUSTYN Israel LABEL MACHINE OPERATOR Ot M79.662 PAIN IN LEFT LOWER LEG 05/10/2016 BRAYAN BRUNO OXYACETYLENE WELDER Ot S83.239A CMPLX TEAR OF MEDIAL MENSC, CURRENT INJU 05/10/2016 BRAYAN BRUNO OXYACETYLENE WELDER Ot X58.XXXA EXPOSURE TO OTHER SPECIFIED FACTORS, INI 05/10/2016 BRAYAN BRUNO OXYACETYLENE WELDER Ot Y99.8 OTHER EXTERNAL CAUSE STATUS 05/10/2016 BRETT REYES OXYACETYLENE WELDER Ot Z12.31 ENCNTR SCREEN MAMMOGRAM FOR MALIGNANT NE 05/15/2016 TANI DE SOUZA, ALBERTO Marte Ot S52.502A UNSP FRACTURE OF THE LOWER END OF LEFT R 05/15/2016 ALBERTO FREIRE MD Ot S63.592A OTHER SPECIFIED SPRAIN OF LEFT WRIST, IN 05/15/2016 ALBERTO FREIRE MD Ot X58.XXXA EXPOSURE TO OTHER SPECIFIED FACTORS, INI 05/15/2016 ALBERTO FREIRE MD Ot Y99.8 OTHER EXTERNAL CAUSE STATUS 08/06/2016 Ot 789.06 ABDOMINAL PAIN, EPIGASTRIC 08/06/2016 Ot 787.20 DYSPHAGIA, UNSPECIFIED 08/06/2016 Ot 784.0 HEADACHE 08/06/2016 Ot 959.09 INJURY OF FACE AND NECK 08/06/2016 Ot E000.8 OTHER EXTERNAL CAUSE STATUS 08/06/2016 Ot E849.0 ACCIDENT IN HOME 08/06/2016 Ot E888.9 FALL NOS 08/06/2016 Ot 780.79 OTH MALAISE FATIGUE 08/06/2016 Ot 784.0 HEADACHE 08/06/2016 Ot V15.88 HISTORY OF FALL 08/06/2016 Ot V76.12 OTH SCREEN MAMMO-MALIGN NEOPLASM OF BARB 08/06/2016 Ot 786.52 PAINFUL RESPIRATION 08/06/2016 JANETTE DE SOUZA, REINALDO Givens Ot 724.5 BACKACHE NOS 08/06/2016 REINALDO SAVAGE MD Ot 736.81 UNEQUAL LEG LENGTH 08/06/2016 REINALDO SAVAGE MD Ot 266.2 B-COMPLEX DEFIC NEC 08/06/2016 JANETTE DE SOUZA, REINALDO Givens Ot 268.9 VITAMIN D DEFICIENCY NOS 08/06/2016 JANETTE DE SOUZA, REINALDO Givens Ot 355.9 MONONEURITIS NOS 08/06/2016 JANETTE DE SOUZA, REINALDO Givens Ot 401.9 HYPERTENSION NOS 08/06/2016 JANETTE DE SOUZA, REINALDO Givens Ot V58.69 OTH MED,LT,CURRENT USE 08/06/2016 KANNAN MICHELLE Jose Juan OXYACETYLENE WELDER Ot V76.12 OTH SCREEN MAMMO-MALIGN NEOPLASM OF BARB 08/06/2016 ALBERTO FREIRE MD Ot 836.1 TEAR LAT MENISC KNEE-CUR 08/06/2016 ALBERTO FREIRE MD Ot E000.8 OTHER EXTERNAL CAUSE STATUS 08/06/2016 ALBERTO FREIRE MD Ot E849.0 ACCIDENT IN HOME 08/06/2016 ALBERTO FREIRE MD Ot E888.9 FALL NOS 08/06/2016 BRETT REYES OXYACETYLENE WELDER Ot 530.81 ESOPHAGEAL REFLUX 08/06/2016 BRETT REYES OXYACETYLENE WELDER Ot 786.2 COUGH 08/06/2016 BRETT REYES OXYACETYLENE WELDER Ot 786.50 CHEST PAIN NOS 08/06/2016 Ot 041.49 OTHER AND UNSPECIFIED ESCHERICHIA COLI [ 08/06/2016 ANDREA BRUNO DO Ot 618.01 CYSTOCELE, MIDLINE 08/06/2016 ANDREA BRUNO DO Ot 788.30 UNSPECIFIED URINARY INCONTINENCE 08/06/2016 ANDREA BRUNO DO Ot V72.63 PRE-PROCEDURAL LABORATORY EXAMINATION 08/06/2016 ANDREA BRUNO DO Ot V74.8 SCREEN-BACTERIAL DIS NEC 08/06/2016 ANDREA BRUNO DO Ot V76.12 OTH SCREEN MAMMO-MALIGN NEOPLASM OF BARB 08/06/2016 Ot 723.1 CERVICALGIA 08/06/2016 Ot 784.0 HEADACHE 08/06/2016 Ot 959.9 INJURY-SITE NOS 08/06/2016 Ot E000.8 OTHER EXTERNAL CAUSE STATUS 08/06/2016 Ot E849.0 ACCIDENT IN HOME 08/06/2016 Ot E888.9 FALL NOS 08/06/2016 GLEN GARCIA Ot 272.4 HYPERLIPIDEMIA NEC/NOS 08/06/2016 GLEN GARCIA Ot 278.00 OBESITY, NOS 08/06/2016 GLEN GARCIA Ot 401.9 HYPERTENSION NOS 08/06/2016 GLEN GARCIA Ot 433.10 CAROTID ARTERY OCCLUSION W O CEREBRAL IN 08/06/2016 Ot 272.4 HYPERLIPIDEMIA NEC/NOS 08/06/2016 Ot 278.00 OBESITY, NOS 08/06/2016 Ot 401.9 HYPERTENSION NOS 08/06/2016 Ot 433.10 CAROTID ARTERY OCCLUSION W O CEREBRAL IN 08/06/2016 Ot V85.32 BODY MASS INDEX 32.0-32.9, ADULT 08/06/2016 MARY IGNACIO LABEL MACHINE OPERATOR Ot 724.2 LUMBAGO 08/06/2016 MARY IGNACIO LABEL MACHINE OPERATOR Ot 788.1 DYSURIA 08/06/2016 KARIME DE SOUZA, PREET Marte Ot G43.909 MIGRAINE, UNSP, NOT INTRACTABLE, WITHOUT 08/06/2016 AUSTYN CALDERON LABEL MACHINE OPERATOR Ot M79.662 PAIN IN LEFT LOWER LEG 08/06/2016 BRAYAN BRUNO OXYACETYLENE WELDER Ot S83.239A CMPLX TEAR OF MEDIAL MENSC, CURRENT INJU 08/06/2016 BRAYAN BRUNOP Ot X58.XXXA EXPOSURE TO OTHER SPECIFIED FACTORS, INI 08/06/2016 BRAYAN BRUNO OXYACETYLENE WELDER Ot Y99.8 OTHER EXTERNAL CAUSE STATUS 08/06/2016 BRETT REYES OXYACETYLENE WELDER Ot Z12.31 ENCNTR SCREEN MAMMOGRAM FOR MALIGNANT NE 08/06/2016 ALBERTO FREIRE MD Ot S52.502A UNSP FRACTURE OF THE LOWER END OF LEFT R 08/06/2016 ALBERTO FREIRE MD Ot S63.592A OTHER SPECIFIED SPRAIN OF LEFT WRIST, IN 08/06/2016 ALBERTO FREIRE MD Ot X58.XXXA EXPOSURE TO OTHER SPECIFIED FACTORS, INI 08/06/2016 ALBERTO FREIRE MD Ot Y99.8 OTHER EXTERNAL CAUSE STATUS 08/07/2016 ASHA CALDERON LABEL MACHINE OPERATOR Ot J32.9 CHRONIC SINUSITIS, UNSPECIFIED 08/22/2016 ASHA CALDERON LABEL MACHINE OPERATOR Ot J32.9 CHRONIC SINUSITIS, UNSPECIFIED 09/25/2016 Ot 041.49 OTHER AND UNSPECIFIED ESCHERICHIA COLI [ 09/25/2016 JULIANNE DE SOUZA, JESSY M Ot D17.9 BENIGN LIPOMATOUS NEOPLASM, UNSPECIFIED 09/25/2016 JULIANNE DE SOUZA, JESSY M Ot Z01.818 ENCOUNTER FOR OTHER PREPROCEDURAL EXAMIN 09/26/2016 JULIANNE DE SOUZA, JESSY M Ot D17.9 BENIGN LIPOMATOUS NEOPLASM, UNSPECIFIED 09/26/2016 JULIANNE DE SOUZA, JESSY M Ot Z01.818 ENCOUNTER FOR OTHER PREPROCEDURAL EXAMIN 09/28/2016 JULIANNE DE SOUZA, JESSY M Ot D17.1 BENIGN LIPOMATOUS NEOPLASM OF SKIN, SUBC 09/28/2016 JULIANNE DE SOUZA, JESSY M Ot D17.23 BENIGN LIPOMATOUS NEOPLASM OF SKIN, SUBC 09/28/2016 JULIANNE DE SOUZA, JESSY M Ot Z79.899 OTHER HALFWAY (CURRENT) DRUG THERAPY 10/01/2016 JULIANNE DE SOUZA, JESSY M Ot D17.1 BENIGN LIPOMATOUS NEOPLASM OF SKIN, SUBC 10/01/2016 JULIANNE DE SOUZA, JESSY Israel Ot D17.23 BENIGN LIPOMATOUS NEOPLASM OF SKIN, SUBC 10/01/2016 JULIANNE DE SOUZA, JESSY M Ot Z79.899 OTHER VASCULAR ULTRASOUND TECHNICIAN (CURRENT) DRUG THERAPY 11/30/2016 TANI DE SOUZA, ALBERTO Marte Ot 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] 12/12/2016 ALBERTO FREIRE MD Ot 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] 03/14/2017 JANETTE DE SOUZA, REINALDO Givens Ot E01.0 IODINE-DEFICIENCY RELATED DIFFUSE (ENDEM 06/04/2017 REINALDO SAVAGE MD Ot G47.10 HYPERSOMNIA, UNSPECIFIED 06/04/2017 REINALDO SAVAGE MD Ot G47.50 PARASOMNIA, UNSPECIFIED 06/04/2017 REINALDO SAVAGE MD Ot I10 ESSENTIAL (PRIMARY) HYPERTENSION 06/04/2017 REINALDO SAVAGE MD Ot R06.83 SNORING 06/05/2017 REINALDO SAVAGE MD Ot G47.10 HYPERSOMNIA, UNSPECIFIED 06/05/2017 REINALDO SAVAGE MD Ot G47.50 PARASOMNIA, UNSPECIFIED 06/05/2017 REINALDO SAVAGE MD Ot I10 ESSENTIAL (PRIMARY) HYPERTENSION 06/05/2017 REINALDO SAVAGE MD Ot R06.83 SNORING 06/10/2017 REINALDO SAVAGE MD Ot G47.10 HYPERSOMNIA, UNSPECIFIED 06/10/2017 REINALDO SAVAGE MD Ot G47.50 PARASOMNIA, UNSPECIFIED 06/10/2017 REINALDO SAVAGE MD Ot I10 ESSENTIAL (PRIMARY) HYPERTENSION 06/10/2017 REINALDO SAVAGE MD Ot R06.83 SNORING 06/13/2017 ANDREA BRUNO DO Ot Z12.31 ENCNTR SCREEN MAMMOGRAM FOR MALIGNANT NE 06/20/2017 ANDREA BRUNO DO Ot Z12.31 ENCNTR SCREEN MAMMOGRAM FOR MALIGNANT NE 09/12/2017 AUSTYN CALDERON LABEL MACHINE OPERATOR Ot E04.2 NONTOXIC MULTINODULAR GOITER 02/19/2018 BRETT REYES OXYACETYLENE WELDER Ot E04.2 NONTOXIC MULTINODULAR GOITER 02/24/2018 BRETT REYES OXYACETYLENE WELDER Ot E04.2 NONTOXIC MULTINODULAR GOITER 03/05/2018 BRETT REYES OXYACETYLENE WELDER Ot E04.2 NONTOXIC MULTINODULAR GOITER 03/14/2018 BRETT REYES OXYACETYLENE WELDER Ot E04.2 NONTOXIC MULTINODULAR GOITER 06/19/2018 JANETTE DE SOUZA, REINALDO Givens Ot 724.5 BACKACHE NOS 06/19/2018 REINALDO SAVAGE MD Ot 736.81 UNEQUAL LEG LENGTH 06/19/2018 REINALDO SAVAGE MD Ot 266.2 B-COMPLEX DEFIC NEC 06/19/2018 REINALDO SAVAGE MD Ot 268.9 VITAMIN D DEFICIENCY NOS 06/19/2018 REINALDO SAVAGE MD Ot 355.9 MONONEURITIS NOS 06/19/2018 REINALDO SAVAGE MD Ot 401.9 HYPERTENSION NOS 06/19/2018 REINALDO SAVAGE MD Ot V58.69 OTH MED,LT,CURRENT USE 06/19/2018 MICHELLE BRUNNERP Ot V76.12 OTH SCREEN MAMMO-MALIGN NEOPLASM OF BARB 06/19/2018 ALBERTO FREIRE MD Ot 836.1 TEAR LAT MENISC KNEE-CUR 06/19/2018 ALBERTO FREIRE MD Ot E000.8 OTHER EXTERNAL CAUSE STATUS 06/19/2018 ALBERTO FREIRE MD Ot E849.0 ACCIDENT IN HOME 06/19/2018 ALBERTO FREIRE MD P Ot E888.9 FALL NOS 06/19/2018 BRETT REYES OXYACETYLENE WELDER Ot 530.81 ESOPHAGEAL REFLUX 06/19/2018 BRETT REYES OXYACETYLENE WELDER Ot 786.2 COUGH 06/19/2018 BRETT REYES OXYACETYLENE WELDER Ot 786.50 CHEST PAIN NOS 06/19/2018 Ot 041.49 OTHER AND UNSPECIFIED ESCHERICHIA COLI [ 06/19/2018 BRUNO DO, ANDREA C Ot 618.01 CYSTOCELE, MIDLINE 06/19/2018 BRUNO DO, ANDREA C Ot 788.30 UNSPECIFIED URINARY INCONTINENCE 06/19/2018 BRUNO DO, ANDREA C Ot V72.63 PRE-PROCEDURAL LABORATORY EXAMINATION 06/19/2018 BRUNO DO ANDREA C Ot V74.8 SCREEN-BACTERIAL DIS NEC 06/19/2018 BRUNO DO ANDREA C Ot V76.12 OTH SCREEN MAMMO-MALIGN NEOPLASM OF BARB 06/19/2018 Ot 723.1 CERVICALGIA 06/19/2018 Ot 784.0 HEADACHE 06/19/2018 Ot 959.9 INJURY-SITE NOS 06/19/2018 Ot E000.8 OTHER EXTERNAL CAUSE STATUS 06/19/2018 Ot E849.0 ACCIDENT IN HOME 06/19/2018 Ot E888.9 FALL NOS 06/19/2018 GLEN GARCIA Ot 272.4 HYPERLIPIDEMIA NEC/NOS 06/19/2018 GLEN GARCIA Ot 278.00 OBESITY, NOS 06/19/2018 GLEN GARCIA Ot 401.9 HYPERTENSION NOS 06/19/2018 GLEN GARCIA Ot 433.10 CAROTID ARTERY OCCLUSION W O CEREBRAL IN 06/19/2018 Ot 272.4 HYPERLIPIDEMIA NEC/NOS 06/19/2018 Ot 278.00 OBESITY, NOS 06/19/2018 Ot 401.9 HYPERTENSION NOS 06/19/2018 Ot 433.10 CAROTID ARTERY OCCLUSION W O CEREBRAL IN 06/19/2018 Ot V85.32 BODY MASS INDEX 32.0-32.9, ADULT 06/19/2018 MARY IGNACIO LABEL MACHINE OPERATOR Ot 724.2 LUMBAGO 06/19/2018 MARY IGNACIO LABEL MACHINE OPERATOR Ot 788.1 DYSURIA 06/19/2018 KARIME DE SOUZA, PREET P Ot G43.909 MIGRAINE, UNSP, NOT INTRACTABLE, WITHOUT 06/19/2018 AUSTYN CALDERON LABEL MACHINE OPERATOR Ot M79.662 PAIN IN LEFT LOWER LEG 06/19/2018 BRAYAN BRUNO OXYACETYLENE WELDER Ot S83.239A CMPLX TEAR OF MEDIAL MENSC, CURRENT INJU 06/19/2018 BRAYAN BRUNOP Ot X58.XXXA EXPOSURE TO OTHER SPECIFIED FACTORS, INI 06/19/2018 BRAYAN BRUNOP Ot Y99.8 OTHER EXTERNAL CAUSE STATUS 06/19/2018 BRETT REYESP Ot Z12.31 ENCNTR SCREEN MAMMOGRAM FOR MALIGNANT NE 06/19/2018 TANI DE SOUZA, ALBERTO Marte Ot S52.502A UNSP FRACTURE OF THE LOWER END OF LEFT R 06/19/2018 ALBERTO FREIRE MD Ot S63.592A OTHER SPECIFIED SPRAIN OF LEFT WRIST, IN 06/19/2018 ALBERTO FREIRE MD Ot X58.XXXA EXPOSURE TO OTHER SPECIFIED FACTORS, INI 06/19/2018 ALBERTO FREIRE MD Ot Y99.8 OTHER EXTERNAL CAUSE STATUS 06/19/2018 ASHA CALDERON LABEL MACHINE OPERATOR Ot J32.9 CHRONIC SINUSITIS, UNSPECIFIED 06/19/2018 TANI DE SOUZA, ALBERTO Marte Ot 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] 06/19/2018 JANETTE DE SOUZA, REINALDO Givens Ot E01.0 IODINE-DEFICIENCY RELATED DIFFUSE (ENDEM 06/19/2018 KIANA DO, ANDREA C Ot Z12.31 ENCNTR SCREEN MAMMOGRAM FOR MALIGNANT NE 06/19/2018 AUSTYN CALDERON LABEL MACHINE OPERATOR Ot E04.2 NONTOXIC MULTINODULAR GOITER 06/19/2018 BRETT REYES Ot E04.2 NONTOXIC MULTINODULAR GOITER 06/20/2018 KIANA DO ANDREA C Ot Z12.31 ENCNTR SCREEN MAMMOGRAM FOR MALIGNANT NE 06/21/2018 REINALDO SAVAGE MD Ot E01.0 IODINE-DEFICIENCY RELATED DIFFUSE (ENDEM 06/21/2018 BRUNO DO, ANDREA C Ot Z12.31 ENCNTR SCREEN MAMMOGRAM FOR MALIGNANT NE 06/21/2018 AUSTYN CALDERON LABEL MACHINE OPERATOR Ot E04.2 NONTOXIC MULTINODULAR GOITER 06/21/2018 REYES, BRETT M OXYACETYLENE WELDER Ot E04.2 NONTOXIC MULTINODULAR GOITER 06/21/2018 ANDREA BRUNO DO Ot Z12.31 ENCNTR SCREEN MAMMOGRAM FOR MALIGNANT NE 06/21/2018 Ot 041.49 OTHER AND UNSPECIFIED ESCHERICHIA COLI [ 06/21/2018 SUNITA, CAROLE OXYACETYLENE WELDER Ot E11.42 TYPE 2 DIABETES MELLITUS WITH DIABETIC P 06/21/2018 SUNITA, CAROLE OXYACETYLENE WELDER Ot E78.00 PURE HYPERCHOLESTEROLEMIA, UNSPECIFIED 06/21/2018 SUNITA, CAROLE OXYACETYLENE WELDER Ot F41.0 PANIC DISORDER [EPISODIC PAROXYSMAL ANXI 06/21/2018 SUNITA, CAROLE OXYACETYLENE WELDER Ot G43.909 MIGRAINE, UNSP, NOT INTRACTABLE, WITHOUT 06/21/2018 SUNITA, CAROLE OXYACETYLENE WELDER Ot I10 ESSENTIAL (PRIMARY) HYPERTENSION 06/21/2018 SUNITA, CAROLE OXYACETYLENE WELDER Ot 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 06/21/2018 SUNITA, CAROLE OXYACETYLENE WELDER Ot J45.909 UNSPECIFIED ASTHMA, UNCOMPLICATED 06/21/2018 SUNITA, CAROLE OXYACETYLENE WELDER Ot S60.311A ABRASION OF RIGHT THUMB, INITIAL ENCOUNT 06/21/2018 SUNITA, CAROLE OXYACETYLENE WELDER Ot X58.XXXA EXPOSURE TO OTHER SPECIFIED FACTORS, INI 06/21/2018 SUNITA, CAROLE OXYACETYLENE WELDER Ot Z87.01 PERSONAL HISTORY OF PNEUMONIA (RECURRENT 06/21/2018 SUNITA, CAROLE OXYACETYLENE WELDER Ot Z90.710 ACQUIRED ABSENCE OF BOTH CERVIX AND UTER 06/23/2018 SUNITA, CAROLE OXYACETYLENE WELDER Ot E11.42 TYPE 2 DIABETES MELLITUS WITH DIABETIC P 06/23/2018 SUNITA, CAROLE OXYACETYLENE WELDER Ot E78.00 PURE HYPERCHOLESTEROLEMIA, UNSPECIFIED 06/23/2018 SUNITA, CAROLE OXYACETYLENE WELDER Ot F41.0 PANIC DISORDER [EPISODIC PAROXYSMAL ANXI 06/23/2018 SUNITA, CAROLE OXYACETYLENE WELDER Ot G43.909 MIGRAINE, UNSP, NOT INTRACTABLE, WITHOUT 06/23/2018 SUNITA, CAROLE OXYACETYLENE WELDER Ot I10 ESSENTIAL (PRIMARY) HYPERTENSION 06/23/2018 SUNITA, CAROLE OXYACETYLENE WELDER Ot 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 06/23/2018 SUNITA, CAROLE OXYACETYLENE WELDER Ot J45.909 UNSPECIFIED ASTHMA, UNCOMPLICATED 06/23/2018 SUNITA, CAROLE OXYACETYLENE WELDER Ot S60.311A ABRASION OF RIGHT THUMB, INITIAL ENCOUNT 06/23/2018 CAROLE DORSEY Ot X58.XXXA EXPOSURE TO OTHER SPECIFIED FACTORS, INI 06/23/2018 CAROLE DORSEY Ot Z87.01 PERSONAL HISTORY OF PNEUMONIA (RECURRENT 06/23/2018 CAROLE DORSEY Ot Z90.710 ACQUIRED ABSENCE OF BOTH CERVIX AND UTER 06/25/2018 ANDREA BRUNO DO Ot Z12.31 ENCNTR SCREEN MAMMOGRAM FOR MALIGNANT NE 06/25/2018 TANI DE SOUZA, ALBERTO Marte Ot M51.16 INTERVERTEBRAL DISC DISORDERS W RADICULO 06/25/2018 TANI DE SOUZA, ALBERTO Marte Ot W19.XXXA UNSPECIFIED FALL, INITIAL ENCOUNTER 06/30/2018 ANDREA BRUNO DO Ot R92.2 INCONCLUSIVE MAMMOGRAM 07/02/2018 ANDREA BRUNO DO Ot Z12.31 ENCNTR SCREEN MAMMOGRAM FOR MALIGNANT NE 07/15/2018 Ot 041.49 OTHER AND UNSPECIFIED ESCHERICHIA COLI [ 07/15/2018 JULIANNE DE SOUZA, JESSY Israel Ot Z01.818 ENCOUNTER FOR OTHER PREPROCEDURAL EXAMIN 07/16/2018 JULIANNE DE SOUZA, JESSY [place] Ot Z01.818 ENCOUNTER FOR OTHER PREPROCEDURAL EXAMIN 07/21/2018 JULIANNE DE SOUZA, JESSY [place] Ot E11.40 TYPE 2 DIABETES MELLITUS WITH DIABETIC N 07/21/2018 JULIANNE DE SOUZA, JESSY [place] Ot E78.00 PURE HYPERCHOLESTEROLEMIA, UNSPECIFIED 07/21/2018 JULIANNE DE SOUZA, JESSY [place] Ot F40.240 CLAUSTROPHOBIA 07/21/2018 JULIANNE DE SOUZA, JESSY [place] Ot G43.909 MIGRAINE, UNSP, NOT INTRACTABLE, WITHOUT 07/21/2018 JULIANNE DE SOUZA, JESSY [place] Ot G90.50 COMPLEX REGIONAL PAIN SYNDROME I, UNSPEC 07/21/2018 JULIANNE DE SOUZA, JESSY [place] Ot I10 ESSENTIAL (PRIMARY) HYPERTENSION 07/21/2018 JULIANNE DE SOUZA, JESSY [place] Ot 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 07/21/2018 JULIANNE DE SOUZA, JESSY [place] Ot J45.909 UNSPECIFIED ASTHMA, UNCOMPLICATED 07/21/2018 JULIANNE DE SOUZA, JESSY [place] Ot K52.9 NONINFECTIVE GASTROENTERITIS AND COLITIS 07/21/2018 JULIANNE DE SOUZA, JESSY [place] Ot K57.30 DVRTCLOS OF LG INT W/O PERFORATION OR AB 07/21/2018 JESSY WHITAKER MD Ot M79.7 FIBROMYALGIA 07/21/2018 JESSY WHITAKER MD Ot Z79.899 OTHER HALFWAY (CURRENT) DRUG THERAPY 07/21/2018 JESSY WHITAKER MD Ot Z88.0 ALLERGY STATUS TO PENICILLIN 07/21/2018 JESSY WHITAKER MD Ot Z88.5 ALLERGY STATUS TO NARCOTIC AGENT STATUS 07/21/2018 JESSY WHITAKER MD Ot Z88.6 ALLERGY STATUS TO ANALGESIC AGENT STATUS 07/23/2018 JESSY WHITAKER MD Ot E11.40 TYPE 2 DIABETES MELLITUS WITH DIABETIC N 07/23/2018 JESSY WHITAKER MD Ot E78.00 PURE HYPERCHOLESTEROLEMIA, UNSPECIFIED 07/23/2018 JESSY WHITAKER MD Ot F40.240 CLAUSTROPHOBIA 07/23/2018 JESSY WHITAKER MD Ot G43.909 MIGRAINE, UNSP, NOT INTRACTABLE, WITHOUT 07/23/2018 JESSY WHITAKER MD Ot G90.50 COMPLEX REGIONAL PAIN SYNDROME I, UNSPEC 07/23/2018 JESSY WHITAKER MD Ot I10 ESSENTIAL (PRIMARY) HYPERTENSION 07/23/2018 JESSY WHITAKER MD Ot 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 07/23/2018 JESSY WHITAKER MD Ot J45.909 UNSPECIFIED ASTHMA, UNCOMPLICATED 07/23/2018 JESSY WHITAKER MD Ot K52.9 NONINFECTIVE GASTROENTERITIS AND COLITIS 07/23/2018 JESSY WHITAKER MD Ot K57.30 DVRTCLOS OF LG INT W/O PERFORATION OR AB 07/23/2018 JESSY WHITAKER MD Ot M79.7 FIBROMYALGIA 07/23/2018 JESSY WHITAKER MD, Ot Z79.899 OTHER VASCULAR ULTRASOUND TECHNICIAN (CURRENT) DRUG THERAPY 07/23/2018 JESSY WHITAKER MD Ot Z88.0 ALLERGY STATUS TO PENICILLIN 07/23/2018 JESSY WHITAKER MD Ot Z88.5 ALLERGY STATUS TO NARCOTIC AGENT STATUS 07/23/2018 JESSY WHITAKER MD Ot Z88.6 ALLERGY STATUS TO ANALGESIC AGENT STATUS 07/24/2018 ALBERTO FREIRE MD Ot S83.241A OTH TEAR OF MEDIAL MENISCUS, CURRENT INJ 07/24/2018 ALBERTO FREIRE MD Ot W19.XXXA UNSPECIFIED FALL, INITIAL ENCOUNTER 07/24/2018 ALBERTO FREIRE MD Ot Z98.890 OTHER SPECIFIED POSTPROCEDURAL STATES 07/29/2018 JULIANNE DE SOUZA, JESSY [place] Ot E11.40 TYPE 2 DIABETES MELLITUS WITH DIABETIC N 07/29/2018 JULIANNE DE SOUZA, JESSY [place] Ot E78.00 PURE HYPERCHOLESTEROLEMIA, UNSPECIFIED 07/29/2018 JULIANNE DE SOUZA, JESSY [place] Ot F40.240 CLAUSTROPHOBIA 07/29/2018 JULIANNE DE SOUZA, JESSY [place] Ot G43.909 MIGRAINE, UNSP, NOT INTRACTABLE, WITHOUT 07/29/2018 JESSY WHITAKER MD Ot G90.50 COMPLEX REGIONAL PAIN SYNDROME I, UNSPEC 07/29/2018 JESSY WHITAKER MD Ot I10 ESSENTIAL (PRIMARY) HYPERTENSION 07/29/2018 JESSY WHITAKER MD Ot 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 07/29/2018 JESSY WHITAKER MD Ot J45.909 UNSPECIFIED ASTHMA, UNCOMPLICATED 07/29/2018 JESSY WHITAKER MD Ot K52.9 NONINFECTIVE GASTROENTERITIS AND COLITIS 07/29/2018 JESSY WHITAKER MD Ot K57.30 DVRTCLOS OF LG INT W/O PERFORATION OR AB 07/29/2018 JESSY WHITAKER MD Ot M79.7 FIBROMYALGIA 07/29/2018 JESSY WHITAKER MD Ot Z79.899 OTHER HALFWAY (CURRENT) DRUG THERAPY 07/29/2018 JESSY WHITAKER MD Ot Z88.0 ALLERGY STATUS TO PENICILLIN 07/29/2018 JESSY WHITAKER MD Ot Z88.5 ALLERGY STATUS TO NARCOTIC AGENT STATUS 07/29/2018 JESSY WHITAKER MD Ot Z88.6 ALLERGY STATUS TO ANALGESIC AGENT STATUS 08/06/2018 ALBERTO FREIRE MD Ot S83.241A OTH TEAR OF MEDIAL MENISCUS, CURRENT INJ 08/06/2018 ALBERTO FREIRE MD Ot W19.XXXA UNSPECIFIED FALL, INITIAL ENCOUNTER 08/06/2018 ALBERTO FREIRE MD Ot Z98.890 OTHER SPECIFIED POSTPROCEDURAL STATES 08/14/2018 AUSTYN CALDERON APRN Ot E04.2 NONTOXIC MULTINODULAR GOITER 10/08/2018 MARCELO LANTIGUA MD Ot K57.30 DVRTCLOS OF LG INT W/O PERFORATION OR AB 10/08/2018 MARCELO LANTIGUA MD Ot R31.9 HEMATURIA, UNSPECIFIED 10/22/2018 MARCELO LANTIGUA MD Ot K57.30 DVRTCLOS OF LG INT W/O PERFORATION OR AB 10/22/2018 MARCELO LANTIGUA MD Ot R31.9 HEMATURIA, UNSPECIFIED 11/19/2018 BRETT REYES OXYACETYLENE WELDER Ot R10.13 EPIGASTRIC PAIN 11/19/2018 BRETT REYES OXYACETYLENE WELDER Ot Z90.49 ACQUIRED ABSENCE OF OTHER SPECIFIED PART 11/28/2018 MARCELO LANTIGUA MD Ot K57.30 DVRTCLOS OF LG INT W/O PERFORATION OR AB 11/28/2018 GRZEGORZ DE SOUZA, MARCELO Givens Ot R31.9 HEMATURIA, UNSPECIFIED 12/03/2018 BRETT REYES OXYACETYLENE WELDER Ot R10.13 EPIGASTRIC PAIN 12/03/2018 BRETT REYES OXYACETYLENE WELDER Ot Z90.49 ACQUIRED ABSENCE OF OTHER SPECIFIED PART 12/03/2018 BRETT REYES OXYACETYLENE WELDER Ot K57.30 DVRTCLOS OF LG INT W/O PERFORATION OR AB 12/03/2018 BRETT REYES OXYACETYLENE WELDER Ot K76.0 FATTY (CHANGE OF) LIVER, NOT ELSEWHERE C 12/03/2018 BRETT REYES OXYACETYLENE WELDER Ot N20.0 CALCULUS OF KIDNEY 12/03/2018 BRETT REYES OXYACETYLENE WELDER Ot Z90.49 ACQUIRED ABSENCE OF OTHER SPECIFIED PART 12/15/2018 BRETT REYES OXYACETYLENE WELDER Ot R10.13 EPIGASTRIC PAIN 12/15/2018 BRETT REYES OXYACETYLENE WELDER Ot Z90.49 ACQUIRED ABSENCE OF OTHER SPECIFIED PART 12/15/2018 BRETT REYES OXYACETYLENE WELDER Ot K57.30 DVRTCLOS OF LG INT W/O PERFORATION OR AB 12/15/2018 BRETT REYES OXYACETYLENE WELDER Ot K76.0 FATTY (CHANGE OF) LIVER, NOT ELSEWHERE C 12/15/2018 BRETT REYES OXYACETYLENE WELDER Ot N20.0 CALCULUS OF KIDNEY 12/15/2018 BRETT REYES OXYACETYLENE WELDER Ot Z90.49 ACQUIRED ABSENCE OF OTHER SPECIFIED PART 12/24/2018 ANDREA BRUNO DO Ot R92.8 OTH ABN AND INCONCLUSIVE FINDINGS ON DX 12/24/2018 ANDREA BRUNO DO Ot Z53.8 PROCEDURE AND TREATMENT NOT CARRIED OUT 12/25/2018 ALANNA SWAIN MD Ot F32.9 MAJOR DEPRESSIVE DISORDER, SINGLE EPISOD 12/25/2018 ALANNA SWAIN MD Ot I65.23 OCCLUSION AND STENOSIS OF BILATERAL HALL 12/25/2018 ALANNA SWAIN MD Ot R06.09 OTHER FORMS OF DYSPNEA 12/25/2018 ALANNA SWAIN MD, Ot R31.0 GROSS HEMATURIA Procedures There is no data. Results Test Result Range Capillary blood glucose measurement by glucometer (mass/volume) - 09/28/16 10: 27 Capillary blood glucose measurement by glucometer (mass/volume) 103 mg/dL 70-110 Methicillin resistant Staphylococcus aureus (MRSA) screening culture - 10:30 Methicillin resistant Staphylococcus aureus (MRSA) screening culture NEG NRG Encounters ACCT No. Visit Date/Time Discharge Status Pt. Type Provider Facility Loc./Unit Complaint [id number] 05/27/2014 14:16:20 05/27/2014 23:59:59 CLS Outpatient Rosanna Teran [id number] 10/09/2013 17:14:59 Document Registration [id number] 12/24/2018 09:40:00 12/24/2018 23:59:59 CLS Outpatient ALANNA SWAIN MD [facility] CARD CAROTID STENOSIS [id number] 12/24/2018 09:38:00 12/24/2018 23:59:59 CLS Outpatient ANDREA BRUNO DO [facility] RAD ABN MAMMO OF LT BREAST [id number] 12/11/2018 12:46:00 12/11/2018 23:59:59 CLS Preadmit BRETT REYES [facility] RAD ABD PAIN,DIARRHEA [id number] 11/20/2018 13:07:00 11/20/2018 23:59:59 CLS Outpatient BRETT REYES [facility] RAD ABD PAIN,DIARRHEA [id number] 11/18/2018 11:12:00 11/18/2018 23:59:59 CLS Outpatient BRETT REYES [facility] RAD ABD PAIN [id number] 10/08/2018 14:39:00 10/08/2018 23:59:59 CLS Outpatient MARCELO LANTIGUA MD [facility] RAD HEMATURIA [id number] 08/08/2018 10:25:00 08/08/2018 23:59:59 CLS Outpatient AUSTYN CALDERON LABEL MACHINE OPERATOR [facility] RAD THYROID NODULES [id number] 07/23/2018 08:38:00 07/23/2018 23:59:59 CLS Outpatient ALBERTO FREIRE MD [facility] RAD ACUTE TEAR OF MEDIAL MENISCUS [id number] 07/21/2018 08:47:00 07/21/2018 11:50:00 DIS Outpatient JESSY WHITAKER MD [facility] ENDO DIARRHEA/CHANGE IN BOWEL/ABNORMAL MRI [id number] 07/15/2018 14:00:00 07/15/2018 14:13:00 DIS Outpatient JESSY WHITAKER MD [facility] PREOP COLONOSCOPY [id number] 06/26/2018 08:50:00 06/26/2018 23:59:59 CLS Outpatient ANDREA BRUNO DO [facility] RAD ABN MAMMO [id number] 06/21/2018 17:30:00 06/21/2018 20:34:00 DIS Emergency CAROLE DORSEY CARLOS [facility] ER CUT FINGER [id number] 06/19/2018 13:39:00 06/19/2018 23:59:59 CLS Outpatient ANDREA BRUNO DO [facility] RAD SCREENING [id number] 06/05/2018 12:25:00 06/05/2018 23:59:59 CLS Outpatient TANI DE SOUZA, ALBERTO Marte [facility] RAD LUMBAR RADICULOPATHY [id number] 02/18/2018 08:42:00 02/18/2018 23:59:59 CLS Outpatient BRETT REYES [facility] RAD MULTINODULAR GOITER [id number] 11/27/2017 07:19:00 11/27/2017 23:59:59 CLS Preadmit BRETT REYES [facility] RAD LT LOBE NODULES [id number] 08/28/2017 15:17:00 08/28/2017 23:59:59 CLS Outpatient AUSTYN CALDERON APRN [facility] RAD E04.2 [id number] 06/07/2017 14:13:00 06/07/2017 23:59:59 CLS Outpatient ANDREA BRUNO DO [facility] RAD Z12.31 [id number] 06/04/2017 11:43:00 06/04/2017 12:05:00 DIS Outpatient REINALDO SAVAGE MD [facility] SLEEP HYPERSOMNIA G47.10 [id number] 04/09/2017 08:49:00 04/09/2017 23:59:59 CLS Preadmit BRETT REYES [facility] SLEEP SNORING, HYPERTENSION [id number] 02/27/2017 11:13:00 02/27/2017 23:59:59 CLS Outpatient REINALDO SAVAGE MD [facility] RAD THYROMEGALY [id number] 11/30/2016 11:05:00 11/30/2016 23:59:59 CLS Outpatient ALBERTO FREIRE MD [facility] RAD M71.21 [id number] 09/28/2016 10:01:00 09/28/2016 14:53:00 DIS Outpatient JESSY WHITAKER MD [facility] SDC LIPOMAS X4 [id number] 09/25/2016 05:38:00 09/25/2016 14:19:00 DIS Outpatient JESSY WHITAKER MD [facility] PREOP LIPOMAS X4 [id number] 08/06/2016 09:45:00 08/06/2016 23:59:59 CLS Outpatient ASHA CALDERON APRN [facility] RAD CHRONIC SINUSITIS [id number] 05/10/2016 12:18:00 05/10/2016 23:59:59 CLS Outpatient ALBERTO FREIRE MD [facility] RAD SCAPHOLUNATE DISRUPTION [id number] 04/24/2016 19:55:00 04/24/2016 22:05:00 DIS Emergency JARRED MARLEEN REY [facility] ER FALL/L WRIST INJ [id number] 01/16/2016 10:33:00 01/16/2016 23:59:59 CLS Outpatient BRETT REYES [facility] RAD SCREENING [id number] 01/16/2016 10:28:00 01/16/2016 13:50:00 DIS Outpatient JESSY WHITAKER MD [facility] SDC SEVERE REFLUX [id number] 01/12/2016 07:21:00 01/12/2016 14:48:00 DIS Outpatient JESSY WHITAKER MD [facility] PREOP SEVERE REFLUX [id number] 10/10/2015 13:28:00 10/10/2015 23:59:59 CLS Outpatient BRAYAN BRUNO OXYACETYLENE WELDER [facility] RAD MENIAL MENISCUS TEAR [id number] 09/07/2015 12:40:00 09/07/2015 23:59:59 CLS Outpatient AUSTYN CALDERON APRN [facility] RAD CALF PAIN [id number] 09/07/2015 12:34:00 09/07/2015 23:59:59 CLS Outpatient PREET SCHAFFER MD [facility] RAD MIGRAINES UNSPECIFIED [id number] 03/22/2015 11:22:00 03/22/2015 23:59:59 CLS Outpatient MARY IGNACIO LABEL MACHINE OPERATOR [facility] RAD DYSUIRIA,LOW BACK PAIN [id number] 03/21/2015 13:08:00 03/21/2015 23:59:59 CLS Outpatient GLEN GARCIA [facility] CARD CAD,OBESITY [id number] 11/18/2014 13:36:00 12/09/2014 10:33:00 DIS Outpatient REINALDO SAVAGE MD [facility] REHAB BACK; SCIATICA; NECK [id number] 09/06/2014 11:24:00 09/06/2014 23:59:59 CLS Outpatient ANDREA BRUNO DO [facility] RAD SCREENING [id number] 08/03/2014 06:15:00 08/04/2014 16:00:00 DIS Outpatient BRUNO DO ANDREA Domingo [facility] SDC CYSTOCELE [id number] 07/28/2014 13:11:00 07/28/2014 23:59:59 CLS Outpatient ANDREA BRUNO DO [facility] PREOP CYSTOCELE [id number] 03/08/2014 13:11:00 05/27/2014 00:01:00 DIS Outpatient ALBERTO SANTOS DO [facility] SURG RCR BLADDER INF [id number] 04/09/2014 12:00:00 04/09/2014 23:59:59 CLS Outpatient BRETT REYES [facility] RAD COUGH,CHEST PAIN, GERD [id number] 09/18/2013 10:35:00 11/04/2013 17:37:00 DIS Outpatient BRAYAN BRUNO [facility] REHAB S/P B CTR [id number] 08/27/2013 10:25:00 09/11/2013 15:00:00 DIS Outpatient BRAYAN BRUNO [facility] REHAB INCISIONAL FIBROSIS S/ P R CTR [id number] 09/08/2013 08:39:00 09/08/2013 23:59:59 CLS Outpatient ALBERTO FREIRE MD [facility] RAD RT KNEE TORN LMT [id number] 08/31/2013 11:33:00 08/31/2013 23:59:59 CLS Outpatient MICHELLE BRUNNERP [facility] RAD ROUTINE [id number] 08/05/2013 13:21:00 08/05/2013 23:59:59 CLS Outpatient REINALDO SAVAGE MD [facility] LAB HTN,NEUROPATHY,VASCULAR ULTRASOUND TECHNICIAN MED USE,VIT D DEF,B12 DEF [id number] 01/21/2013 12:05:00 01/21/2013 23:59:59 CLS Outpatient REINALDO SAVAGE MD [facility] RAD BACK PAIN,LEG LENGTH DISCREP [id number] 01/07/2019 09:00:00 PEN Preadcesar SWAIN MD, ALANNA Luz [facility] ABD STRESS TEST,CP,HTN [id number] 05/11/2015 08:35:00 Document Registration [id number] 11/22/2014 16:39:00 Document Registration [id number] 05/28/2014 00:00:00 Document Registration [id number] 12/09/2012 15:20:00 Document Registration [id number] 08/21/2012 14:45:00 Document Registration [id number] 08/19/2012 12:49:00 Document Registration [id number] 08/12/2012 10:53:00 Document Registration [id number] 08/11/2012 13:01:00 Document Registration [id number] 02/01/2012 07:11:00 Document Registration [id number] 12/19/2010 05:38:00 Document Registration [id number] 12/18/2010 10:53:00 Document Registration
--- NOTE | 2019-01-07 10:00 | Cardiac Cath Report ---
Cardiac Cath Report Physician (s)/Fundraising Sale Representative (s) Physician ALANNA SWAIN MD Pre-Procedure Diagnosis Pre-Procedure Diagnosis: coronary artery disease Post-Procedure Note Procedure Start Date: January 07, 2019 Name of Procedure: left heart catheterization Findings/Procedure Note PROCEDURE NOTE: 58 years old lady with history of hypertension, hyperlipidemia, anxiety, has been having chest pain, had an abnormal stress test scheduled for cardiac catheterization possible PTCA. After explaining the procedure to the patient, all pros and cons were explained , all questions were answered. The patient signed the consent and then she was placed on the cardiac catheterization laboratory. Groin was prepped SL fashion local anesthesia was used. Sheath placed in the right radial artery, I used multiple catheters and multiple attempts to access the choroid system I was successful in accessing the right coronary artery with JR catheter and the left corner system with the AL-1,AL-1 prolapse into the left ventricle and pressure was measured, had transient left bundle branch block, I exchanged the catheter over the long J-wire into pigtail catheter and measured the pressure again then did left ventriculogram. At the end of the procedure the sheath was removed. Closure device was used with vascular band FINDINGS: Hemodynamics LV 121/20, end-diastolic pressure of 20 Aorta 126/65 mean of 91 ANATOMY: Left Main is free of obstructive disease Left Anterior Descending is small to moderate in size tapering down distally, mild disease nonobstructive disease Left Circumflex is small to moderate in size with no obstructive disease Right Coronory Artery is dominant artery with mild disease obstructive disease LV Gram was done showing normal left ventricular size and systolic function estimated ejection fraction 60 percent CONCLUSION: 1. Dominant right coronary artery, small left system with mild disease nonobstructive disease. 2. Normal left ventricular size and systolic function is in ejection fraction 60 percent DISCUSSION AND RECOMMENDATION: medical therapy is recommended no intervention Anesthesia Type: Conscious Sedation Estimated blood loss (mL): 25 ml Contrast Amount: 80 ml Total Radiation Dose: 656 mGy Post-Procedure Diagnosis Post-operative diagnosis: Anterior chest wall pain Coronary artery disease Hypertension Hyperlipidemia ALANNA SWAIN MD January 07, 2019 10:00
--- NOTE | 2019-01-07 10:02 | Discharge Inst-Post CATH ---
Discharge Inst-CATH/EP Post Cardiac Cath/EP D/C Inst Follow Up/Plan Appointment with Dr. Mcdowell's office in 4 weeks <b>CARDIAC CATH/EP PROCEDURE DISCHARGE INSTRUCTIONS</b> Cardiac Rehab Please be expecting a follow up call from Cardiac Rehab within in one week. ACTIVITY * Go Home directly and rest. * Limit activity of the leg (or wrist if it was used) for 7 days including aerobics, swimming, jogging, bicycling, etc. * Restrict stair-climbing for 7 days if possible, if not, climb up with your non -cath leg, then bring together on the same step. * Avoid lifting, pushing, pulling or excessive movement of the affected extremity for 7 days. * Customary sexual activity may be resumed after 2 days-use caution not to use a position that strains or causes pain to the affected extremity. * No driving for 24 hours. * NO SMOKING. * Avoid straining for bowel movements for 7 days. * Gentle walking on level ground is allowed. * Returning to work will depend on the type of procedure and the results. Your doctor will discuss this with you. CALL YOUR DOCTOR FOR ANY OF THE FOLLOWING: *If bleeding from the puncture site occurs- Apply gentle pressure to site with clean cloth and call your doctor or EMS. * If a knot or lump forms under the skin, increases in size, or causes pain. * If bruising appears to be worsening or moving further down your leg instead of disappearing. * Temperature above 101 F. CARE OF YOUR GROIN INCISION; * Bruising or purple discoloration of the skin near the puncture site is common. * You may shower only, no bathtub bathing for 5 days. Be careful to avoid slipping as your leg may feel stiff. * If a closure device was used on your femoral artery, please see the attached guide regarding care of the device and your leg. * Leave dressing on FOR 24 hours. CARE OF YOUR WRIST INCISION; * Bruising or purple discoloration of the skin near the puncture site is common. * You may shower. * DO NOT submerge wrist. * Leave dressing on FOR 24 hours. ALANNA MCDOWELL MD January 07, 2019 10:02
[2019-01-07] MEDS ORDERED: MECLIZINE 25 MG (ANTIVERT) TAB PO ONE (12:30)
== END 2019-01-07 13:50 | disposition home or self-care (01) ==
LOC: CATH 07:01 → SDC 10:09 → CATH 13:50
PROVIDERS: ATTEND Internal Medicine Cardiovascular Disease
DX: R07.89 Other chest pain (principal); I25.10 Atherosclerotic heart disease of native coronary artery without angina pectoris; I10 Essential (primary) hypertension; E78.5 Hyperlipidemia, unspecified; F41.9 Anxiety disorder, unspecified; I65.23 Occlusion and stenosis of bilateral carotid arteries; M79.7 Fibromyalgia; K21.9 Gastro-esophageal reflux disease without esophagitis; M48.02 Spinal stenosis, cervical region; Z79.899 Other long term (current) drug therapy; Z87.891 Personal history of nicotine dependence
CPT/HCPCS: 36415; 71045; 80053; 80061; 81000; 85027; 85610; 85730; 87081; 87088; 93458

== ENCOUNTER 2019-02-26 05:55 | Outpatient (CLI) | payer OTHER, MEDICARE ==
[~2019-02-26] VITALS: Ht 167.6 cm; Wt 93.9 kg
[~2019-02-26 05:55] MED LIST changes: -EZET10TA27 PO; +EZET10TA49 PO
[2019-02-26] MEDS ORDERED: ESTR10TA VG (09:27)
[2019-02-26] MEDS ORDERED: AMLO5TAB9 PO (09:28)
[2019-02-26] MEDS ORDERED: OMEG-9 PO (09:34)
[2019-02-27] MEDS ORDERED: SULF1TAB35 PO (09:57)
== END 2019-02-26 09:30 | disposition home or self-care (01) ==
LOC: PREOP 05:55
PROVIDERS: ATTEND Surgery
DX: Z01.818 Encounter for other preprocedural examination (principal)

== ENCOUNTER → 2019-03-27 | Outpatient (CLI) | payer OTHER, MEDICARE ==
[~2019-03-27] MED LIST changes: +AMLO5TAB9 PO; +OMEG-9 PO; +SULF1TAB35 PO
--- NOTE | 2019-03-27 15:20 | Diagnostic Imaging Report ---
PROCEDURE: US Thyroid. TECHNIQUE: Multiple real-time grayscale images were obtained of the thyroid in various projections. INDICATION: Thyroid nodules. Correlation is made with prior thyroid ultrasound from 08/08/2018. FINDINGS: Right lobe of the thyroid measures 4.6 x 1.6 x 1.7 cm and the left lobe measures 4.3 x 1.1 x 2.0 cm. Hyperechoic nodule in the lower pole of right lobe is stable at approximately 5 mm x 4 mm x 3 mm. Hyperechoic lesion in the lower pole of left lobe also appears to be stable. There is also a 4 mm cyst in the left lobe of the thyroid. No dominant mass is seen. IMPRESSION: Stable subcentimeter nodules when compared with exam from 08/08/2018. Dictated by: Dictated on workstation # [id number]
== END ==
LOC: RAD 12:28
PROVIDERS: ATTEND Family Medicine
DX: E04.2 Nontoxic multinodular goiter (principal)
CPT/HCPCS: 76536

== ENCOUNTER → 2019-03-27 | Outpatient (CLI) | payer OTHER, MEDICARE ==
--- NOTE | 2019-03-27 16:44 | Diagnostic Imaging Report ---
INDICATION: Left breast density. Study is performed for further evaluation. COMPARISON: Correlation made with diagnostic mammogram earlier the same day. EXAMINATION: Left breast ultrasound. FINDINGS: Patient reported underwent a left breast lift procedure. Mammogram showed an area of increased density with central lucency in the far posterior left breast. This does correspond to an ovoid mixed echogenicity lesion at the 9 o'clock location posterior measuring 2.3 x 1.1 x 2.1 cm. This most likely accounts for the mammographic density. This may represent an area of postsurgical change/fat necrosis. No internal vascularity is seen. IMPRESSION: Ovoid mixed echogenicity lesion in the posterior left breast corresponding to the mammographic density. This is likely postsurgical and may represent area of fat necrosis. Followup left mammogram and left breast ultrasound in six months is recommended to show continued stability. ACR BI-RADS Category 3: Probably benign findings. Result letter will be mailed to the patient. Note: At least 10% of breast cancer is not imaged by mammography. Dictated on workstation # [id number]
--- NOTE | 2019-03-27 17:11 | Diagnostic Imaging Report ---
INDICATION: Six-month followup left breast nodule. COMPARISON: Correlation is made with prior mammograms from 06/26/2018 as well as 06/19/2018 and 06/07/2017. EXAMINATION: Unilateral left 2D and 3D diagnostic mammography was performed with CAD. FINDINGS: Scattered fibroglandular densities are identified, bilaterally. Previously noted tiny circumscribed nodule in the upper posterior left breast is not appreciated on today's study. There is an area of increased density with central lucency in the far posterior left breast at the nipple line on both MLO and CC views. Patient reportedly has undergone a breast lift procedure since prior mammograms and findings are most likely owing to scarring and potentially fat necrosis. This will be evaluated with ultrasound. There are benign calcifications in the left breast. No suspicious calcifications are seen. IMPRESSION: 1. Previously noted tiny density upper posterior left breast is no longer visualized. 2. Postsurgical changes to left breast with an area of increased density and central lucency, posteriorly, consistent with scarring and likely fat necrosis. Further evaluation of this area with ultrasound is recommended and will be performed today. ACR BI-RADS Category 0: Incomplete. (Needs additional imaging evaluation). Result letter will be mailed to the patient. Note: At least 10% of breast cancer is not imaged by mammography. Dictated on workstation # [id number]
== END ==
LOC: RAD 12:34
PROVIDERS: ATTEND Obstetrics & Gynecology
DX: N63.20 Unspecified lump in the left breast, unspecified quadrant (principal); N64.89 Other specified disorders of breast; Z98.890 Other specified postprocedural states
CPT/HCPCS: 76642

== ENCOUNTER → 2019-04-20 | Outpatient (CLI) | payer OTHER, MEDICARE ==
--- NOTE | 2019-04-20 13:56 | Diagnostic Imaging Report ---
PROCEDURE: MR imaging of the brain without contrast. TECHNIQUE: Multiplanar, multisequence MR imaging of the brain was performed without contrast. INDICATION: Transient ischemic attack and headaches as well as episodes of facial drooping on the left. COMPARISON: Correlation is made with MRI of the brain performed 08/19/2012. FINDINGS: The ventricles and sulci are within normal limits. Periventricular and subcortical white matter signal abnormalities are noted and similar to prior exam, likely on the basis of chronic microvascular ischemia. No diffusion restriction is identified to suggest acute ischemia. The normal expected flow-voids within the carotid siphons are seen. No acute intra-axial or extra-axial hemorrhage is detected. Corpus callosum is unremarkable. The sella and parasellar structures are unremarkable. IMPRESSION: Changes of chronic microvascular ischemia. No acute feature is detected. Dictated by: Dictated on workstation # [id number]
== END ==
LOC: RAD 12:28
PROVIDERS: ATTEND Psychiatry & Neurology Neurology
DX: G45.9 Transient cerebral ischemic attack, unspecified (principal); I67.82 Cerebral ischemia
CPT/HCPCS: 70551

== ENCOUNTER → 2019-04-21 | Outpatient (CLI) | payer OTHER, MEDICARE ==
--- NOTE | 2019-04-21 12:20 | Diagnostic Imaging Report ---
PROCEDURE: CT abdomen and pelvis without contrast. TECHNIQUE: Multiple contiguous axial images were obtained through the abdomen and pelvis without the use of intravenous contrast. Auto Exposure Controls were utilized during the CT exam to meet ALARA standards for radiation dose reduction. INDICATION: Left posterior abdominal pain and left groin pain and hematuria. COMPARISON: Correlation is made with prior CT from 11/20/2018. FINDINGS: Lung bases demonstrate linear atelectasis or scarring in the left lower lobe. No discrete liver mass is identified. There appears to be low-density throughout the liver consistent with hepatic steatosis. The gallbladder is surgically absent. No biliary ductal dilatation is seen. The pancreas and spleen are unremarkable. No adrenal mass is identified. Tiny nonobstructing calculi within both kidneys are noted. No ureteral calculi or evidence of hydronephrosis is identified. Aorta is nonaneurysmal. Bowel loops are normal in caliber. Diverticulosis of the sigmoid is again noted but no evidence of acute diverticulitis. There is no ascites. Bladder is decompressed but otherwise unremarkable. No bladder calculi are seen. IMPRESSION: 1. Bilateral nonobstructing nephrolithiasis. No ureteral calculi or hydronephrosis is detected. 2. Uncomplicated diverticulosis. 3. Hepatic steatosis. Dictated by: Dictated on workstation # [id number]
--- NOTE | 2019-04-21 14:48 | Diagnostic Imaging Report ---
INDICATION: Renal stones. TECHNIQUE: Single supine view of the abdomen at 11:52 a.m. CORRELATION STUDY: CT imaging performed same day. FINDINGS: Large amount of overlying bowel gas and stool obscure detail. There are few punctate calcifications superimposed over the right renal silhouette, compatible with known stones. The left renal silhouette is largely obscured by the stool and gas. Definitive calcification along the expected course of the either ureter is not demonstrated. Small calcification in the left hemipelvis appears likely outside the expected course of the distal ureter. IMPRESSION: 1. Kidneys are largely obscured by overlying bowel gas and stool, left more so than right. A few small calcifications superimposed over the inferior pole of the right kidney. Dictated by: Dictated on workstation # [id number]
== END ==
LOC: RAD 11:40
PROVIDERS: ATTEND Urology
DX: K57.30 Diverticulosis of large intestine without perforation or abscess without bleeding (principal); N20.0 Calculus of kidney; K76.0 Fatty (change of) liver, not elsewhere classified; N28.89 Other specified disorders of kidney and ureter
CPT/HCPCS: 74018; 74176

== ENCOUNTER → 2019-09-07 | Outpatient (CLI) | payer OTHER, MEDICARE ==
--- NOTE | 2019-09-07 18:02 | Diagnostic Imaging Report ---
INDICATION: Status post breast lift in August 2018. Patient has an area of probable fat necrosis in the left breast. Study is performed for six-month follow-up. COMPARISON: Correlation is made with prior mammograms from 03/27/2019, 06/26/2018, and 06/19/2018. TECHNIQUE: 2-D and 3-D bilateral diagnostic mammography was performed. The current study was also evaluated with a Computer Aided Detection (CAD) system. 3-D tomosynthesis was also performed and reviewed. FINDINGS: The area of probable fat necrosis in the posterior left breast at the nipple line appears less prominent on today's study. In particular, the surrounding tissue is less dense. No new abnormality in the left breast is seen. There are probable areas of fat necrosis in the right breast as well. No malignant-appearing microcalcifications are seen. Axillae are unremarkable. IMPRESSION: Postsurgical changes of both breasts with areas of fat necrosis bilaterally. Additional follow-up of the previously noted area in the left breast deep to the nipple with ultrasound is recommended and will be performed today. ACR BI-RADS Category 0: Incomplete. (Needs additional imaging evaluation). Result letter will be mailed to the patient. Note: At least 10% of breast cancer is not imaged by mammography. Dictated by: Dictated on workstation # [id number]
--- NOTE | 2019-09-07 18:11 | Diagnostic Imaging Report ---
INDICATION: Six-month follow-up left breast density. Correlation is made with prior left breast ultrasound from 03/27/2019 and diagnostic mammogram earlier the same day. Cystic nodular echogenicity retroareolar at 9 o'clock left breast is decreased in size at 2.0 x 1.2 x 1.4 cm. This was less cystic on prior exam and larger measuring 2.4 x 1.1 x 2.1 cm. No new abnormality is seen. IMPRESSION: Decrease in size of nodule in the retroareolar left breast since prior exam. This again in conjunction with the findings on mammography is most consistent with an area of fat necrosis from recent surgical intervention. No further follow-up is indicated. ACR BI-RADS Category 2: Benign findings. Dictated by: Dictated on workstation # [id number]
== END ==
LOC: RAD 13:01
PROVIDERS: ATTEND Obstetrics & Gynecology
DX: N63.20 Unspecified lump in the left breast, unspecified quadrant (principal); N64.1 Fat necrosis of breast; Z98.890 Other specified postprocedural states
CPT/HCPCS: 76642; 77066

== ENCOUNTER 2019-09-20 11:55 | Emergency (ER) | payer OTHER, MEDICARE ==
[~2019-09-20] VITALS: Ht 165 cm; Wt 91.8 kg
[~2019-09-20 11:55] MED LIST changes: -DIAZ5TAB3 PO; +DIAZ5TAB49 PO
[2019-09-20 12:43] LABS: BASOPHILS % (AUTO) 0 % (0-10); EOSINOPHILS # (AUTO) 0.1 10^3/uL (0.0-0.3); EOSINOPHILS % (AUTO) 2 % (0-10); HEMATOCRIT 42 % (35-52); LYMPHOCYTES # (AUTO) 1.4 X 10^3 (1.0-4.0); LYMPHOCYTES % (AUTO) 22 % (12-44); MEAN CORPUSCULAR HEMOGLOBIN 30 PG (25-34); MEAN CORPUSCULAR HGB CONC 33 G/DL (32-36); MEAN CORPUSCULAR VOLUME 89 FL (80-99); MEAN PLATELET VOLUME 9.8 FL (7.4-10.4); MONOCYTES # (AUTO) 0.4 X 10^3 (0.0-1.0); MONOCYTES % (AUTO) 7 % (0-12); NEUTROPHILS # (AUTO) 4.6 X 10^3 (1.8-7.8); NEUTROPHILS % (AUTO) 70 % (42-75); PLATELET COUNT 256 10^3/uL (130-400); RED CELL DISTRIBUTION WIDTH 14.1 % (10.0-14.5); WHITE BLOOD COUNT 6.5 10^3/uL (4.3-11.0)
[2019-09-20 12:44] LABS: BILIRUBIN,URINE NEGATIVE (NEGATIVE); CLARITY,URINE CLEAR; COLOR,URINE YELLOW; GLUCOSE, URINE (UA) NEGATIVE (NEGATIVE); KETONES,URINE NEGATIVE (NEGATIVE); LEUKOCYTE ESTERASE ,URINE NEGATIVE (NEGATIVE); NITRITE,URINE NEGATIVE (NEGATIVE); PH,URINE 5.5 (5-9); PROTEIN,URINE NEGATIVE (NEGATIVE)
[2019-09-20] MEDS ORDERED: NS IV 1000 ML 1,000 ML IV SCH (12:49)
[2019-09-20] MEDS ORDERED: MECLIZINE 25 MG (ANTIVERT) TAB PO STA (12:49)
[2019-09-20] MEDS ORDERED: KETOROLAC 30 MG/ML VIAL IVP STA (12:49)
[2019-09-20] MEDS ORDERED: diphenhydrAMINE 50 MG/ML INJ (BENADRYL) IV STA (12:49)
[2019-09-20 12:53] LABS: RBC,URINE RARE /HPF
[2019-09-20 12:54] LABS: BACTERIA,URINE TRACE /HPF
[2019-09-20 12:56] LABS: AMPHETAMINE SCREEN, URINE NEGATIVE (NEGATIVE); BARBITURATE SCREEN URINE POSITIVE (NEGATIVE); BENZODIAZEPINES SCREEN URINE POSITIVE (NEGATIVE); CANNABINOID SCREEN, URINE NEGATIVE (NEGATIVE); COCAINE SCREEN URINE NEGATIVE (NEGATIVE); METHADONE STAT NEGATIVE (NEGATIVE); METHAMPHETAMINE SCREEN URINE S NEGATIVE (NEGATIVE); OPIATE SCREEN URINE NEGATIVE (NEGATIVE); OXYCODONE STAT NEGATIVE (NEGATIVE); PROPOXYPHENE STAT NEGATIVE (NEGATIVE); TRICYCLIC ANTIDEPRESSANTS SCRE NEGATIVE (NEGATIVE)
[2019-09-20 12:58] LABS: ALANINE AMINOTRANSFERASE 34 U/L (0-55); ALBUMIN 4.4 GM/DL (3.2-4.5); ALKALINE PHOSPHATASE 90 U/L (40-136); BILIRUBIN,TOTAL 0.3 MG/DL (0.1-1.0); BUN/CREATININE RATIO 19; CALCIUM 9.6 MG/DL (8.5-10.1); CARBON DIOXIDE 21 MMOL/L (21-32); CHLORIDE 108 MMOL/L (98-107); CREATININE SERUM 0.77 MG/DL (0.60-1.30); GFR ESTIMATED > 60; GLUCOSE 85 MG/DL (70-105); POTASSIUM 4.1 MMOL/L (3.6-5.0); SODIUM 139 MMOL/L (135-145); TOTAL PROTEIN 7.4 GM/DL (6.4-8.2)
--- NOTE | 2019-09-20 13:11 | ED Headache ---
General Chief Complaint: Head/Cervical Problems Stated Complaint: HEADACHE/DIZZINESS Nursing Triage Note: C/O head pain that radiates to neck. States she has had issues since Jun and has been taking migraine meds that has helped. This last week, QUINTERO has been severe and not controlled. Nauseated but no vomiting, no fever, but has had sinus issues recently. Nausea controlled with zofran. States she feels like she will pass out if she bends over. Did not take migraine meds this morning in case we wanted to give her something. Nursing Sepsis Screen: No Definite Risk History of Present Illness Date Seen by Provider: Sep 20, 2019 Time Seen by Provider: 12:30 Initial Comments 59-year-old female with chronic history of migraines presents for symptoms that have been present since approximately June 2019 that worsened over the last 4-5 days. She normally takes Fioricet and Maxalt for her migraines, she last took these yesterday morning. She states they are not improving or symptoms like they usually do and she didn't want to limit what we could try in the ED. she has mild nausea with the migraine, she did takes Zofran by mouth prior to arrival. She also was recently started on a medication for diarrhea and it seems to be making her symptoms worse. She was diagnosed with a sinus infection approximately one month ago and she is concerned that that could be causing her symptoms to be worse. She is continuing to take Mucinex and Zyrtec for the sinus infection. She has an appointment in 2-3 days with her primary care provider for her symptoms but she felt they had gotten to the point she needed to be seen today and not wait for the appointment. She does see a neurologist in [place], [place], but hasn't been there since the migraines have been worse. She has done counseling to help with biofeedback and relaxation to offset her symptoms. Timing/Duration: episodic Severity/Quality: moderate Location: frontal, temporal (left) Prior Headaches/Recent Trauma: chronic headaches Modifying Factors: improves with medication, improves with rest Associated Symptoms: denies symptoms; No confusion, No fatigue, No facial pain, No fever/chills, No flushing, No loss of consciousness, No nausea/vomiting, No nasal congestion, No nasal drainage, No numbness in legs/feet, No rash, No seizures, No sinus infection, No stiff neck, No vision changes, No weakness, No other Allergies and Home Medications Allergies Coded Allergies: levofloxacin (Verified Allergy, Severe, HIVES, SHORTNESS OF BREATH, HAND SWELLS, 02/26/14) nitrofurantoin (Verified Allergy, Severe, HIVES, SHORTNESS OF BREATH, ITCHING, 06/21/18) duloxetine (Verified Allergy, Intermediate, TROUBLE BREATHING, HEART RAC ED, PANIC ATTACH, 06/21/18) acetaminophen (Verified Allergy, Mild, ITCHING, INSOMNIA, 06/21/18) gluten (Unverified Allergy, Mild, 06/21/18) levomefolate calcium (Verified Allergy, Mild, NAUSEA, WEIGHT GAIN, 06/21/18) mecobalamin (Verified Allergy, Mild, NAUSEA, WEIGHT GAIN, 06/21/18) oxycodone (Verified Allergy, Mild, ITCHING, INSOMNIA, 06/21/18) prednisone (Verified Allergy, Mild, 06/21/18) ITCING pyridoxal phosphate (Verified Allergy, Mild, NAUSEA, WEIGHT GAIN, 06/21/18) tramadol (Verified Allergy, Mild, HIVES, ITCHING, 06/21/18) levothyroxine sodium (Verified Allergy, Unknown, mood swings, 07/15/18) gabapentin (Verified Adverse Reaction, Intermediate, SICK FEELING, HEART RACED, 06/21/18) milnacipran (Verified Adverse Reaction, Intermediate, NAUSEA, MIGRAINES, 06/21/18) Uncoded Allergies: NUTS (Allergy, Mild, 02/26/14) dissolvable stitches (Allergy, Unknown, 09/25/16) Home Medications Alirocumab 150 Mg/1 Ml Pen.injctr, 150 MG SQ every 2 weeks, (Reported) Amlodipine Besylate 5 Mg Tablet, 5 MG PO DAILY, (Reported) Biotin 2,500 Mcg Capsule, 2,500 MCG PO DAILY, (Reported) Cetirizine HCl 10 Mg Tablet, 10 MG PO DAILY PRN for allergies, (Reported) Cholecalciferol (Vitamin D3) 2,000 Unit Tablet, 4,000 UNIT PO DAILY, (Reported) take 2 (2,000MG) tab Cholestyramine (with Sugar) 4 Gm Powd.pack, 4 GM PO BID PRN for DIARRHEA, (Reported) Cyanocobalamin 1,000 Mcg/Ml Inj, 1,000 MCG IM WEEK, (Reported) Diazepam 5 Mg Tablet, 5 MG PO BID PRN for ANXIETY, (Reported) Estradiol 10 Mcg Tablet, 10 MCG VG HS, (Reported) Ezetimibe 10 Mg Tablet, 10 MG PO HS, (Reported) Folic Acid 1 Mg Tablet, 1 MG PO DAILY, (Reported) Hydrochlorothiazide 12.5 Mg Tablet, 12.5 MG PO DAILY, (Reported) Hydrocodone/Acetaminophen 1 Each Tablet, 1 EACH PO Q4-6HR PRN for PAIN-MODERATE, (Reported) Hyoscyamine Sulfate 0.375 Mg Tab.er.12h, 0.375 MG PO TID PRN for CRAMPS, (Reported) Metoprolol Tartrate 50 Mg Tablet, 50 MG PO BID, (Reported) Naproxen 500 Mg Tablet.dr, 500 MG PO BID PRN for PAIN-MILD, (Reported) [place]-3/Dha/Epa/Fish Oil 1 Each Capsule.dr, 3 EACH PO BID, (Reported) Ondansetron HCl 8 Mg Tablet, 8 MG PO Q8H PRN for NAUSEA/VOMITING, (Reported) Rizatriptan Benzoate 10 Mg Tablet, 10 MG PO DAILY PRN for MIGRAINE, (Reported) may repeat in 2 hours if needed Sulfamethoxazole/Trimethoprim 1 Each Tablet, 1 EACH PO BID Prescribed by: LOYD RINALDI on 02/27/19 0957 Topiramate 100 Mg Tablet, 100 MG PO BID, (Reported) [Potassium Cl Elixir] , 2 TBS PO DAILY, (Reported) TAKES 2 TABLESPOON 10% 20MEQ/15ML Patient Home Medication List Home Medication List Reviewed: Yes Review of Systems Review of Systems Constitutional: see HPI, dizziness Gastrointestinal: see HPI, diarrhea, nausea; No vomiting Psychiatric/Neurological: See HPI, Headache All Other Systems Reviewed Negative Unless Noted: Yes Past Virezir-Frbkgy-Foitxx Hx Past Med/Social Hx: Reviewed Nursing Past Med/Soc Hx Patient Social History Alcohol Use: Denies Use Recreational Drug Use: No Smoking Status: Never a Smoker 2nd Hand Smoke Exposure: No Recent Foreign Travel: No Contact w/Someone Who Travel: No Recent Infectious Disease Expo: No Recent Hopitalizations: No Physical Abuse: No Sexual Abuse: No Mistreated: No Fear: No Immunizations Up To Date Date of Pneumonia Vaccine: Feb 27, 2012 Date of Influenza Vaccine: Jun 08, 2018 Seasonal Allergies Seasonal Allergies: Yes Past Medical History Surgeries: Yes (A&P rep, bladder x2, R RCR x2, R knee scope x2,L CTR x5, lap khadra, foot ) Abdominal, Bladder Surgery, Gallbladder, Hysterectomy, Orthopedic, Rectal Respiratory: Yes Asthma, Chronic Bronchitis Cardiac: Yes (RAYNAUD'S ) High Cholesterol, Hypertension Neurological: Yes (SEVERE MIGRAINE HEADACHES; NEUROPATHY IN FEET; REFLEX SYMPATHETIC DYSTROPHY) Headaches /Migraines, Neuropathy Reproductive Disorders: No Genitourinary: No Gastrointestinal: Yes (BLOATING) Chronic Diarrhea Musculoskeletal: Yes (herniated disk) Degenerate Disk Disease, Arthritis, Fibromyalgia, Chronic Back Pain Endocrine: Yes (diet controlled at this time) Diabetes, Non-Insulin dep HEENT: No Cancer: No Did You Recieve Any Treatments: No Psychosocial: Yes (CLAUSTROPHOBIA, PANIC ATTACKS) Integumentary: No Blood Disorders: No Physical Exam Vital Signs Vital Signs - First Documented 09/20/19 09/20/19 12:01 14:19 Temp 35.5 Pulse 56 Resp 16 B/P (MAP) 120/69 Pulse Ox 99 Capillary Refill : Less Than 3 Seconds Height, Weight, BMI Height: 5'6.00" Weight: 190lbs. 0.0oz. [id number]; 33.00 BMI Method:Stated General Appearance: WD/WN, no apparent distress, other (Sitting up in bed, playing video game on her phone. Reports she has learned to use distraction to aid in her pain and video games are a distraction for her ) HEENT: PERRL/EOMI, normal ENT inspection, TMs normal, pharynx normal, photophobia (Patient subjectively states, but is not requesting lights off or in discomfort when checking pupilary response. ) Progress/Results/Core Measures Results/Orders Lab Results Laboratory Tests Test 09/20/19 12:15 Range/Units White Blood Count 6.5 4.3-11.0 10^3/uL Red Blood Count 4.71 4.35-5.85 10^6/uL Hemoglobin 14.0 11.5-16.0 G/DL Hematocrit 42 35-52 % Mean Corpuscular Volume 89 80-99 FL Mean Corpuscular Hemoglobin 30 25-34 PG Mean Corpuscular Hemoglobin Concent 33 32-36 G/DL Red Cell Distribution Width 14.1 10.0-14.5 % Platelet Count 256 130-400 10^3/uL Mean Platelet Volume 9.8 7.4-10.4 FL Neutrophils (%) (Auto) 70 42-75 % Lymphocytes (%) (Auto) 22 12-44 % Monocytes (%) (Auto) 7 0-12 % Eosinophils (%) (Auto) 2 0-10 % Basophils (%) (Auto) 0 0-10 % Neutrophils # (Auto) 4.6 1.8-7.8 X 10^3 Lymphocytes # (Auto) 1.4 1.0-4.0 X 10^3 Monocytes # (Auto) 0.4 0.0-1.0 X 10^3 Eosinophils # (Auto) 0.1 0.0-0.3 10^3/uL Basophils # (Auto) 0.0 0.0-0.1 10^3/uL Urine Color YELLOW Urine Clarity CLEAR Urine pH 5.5 5-9 Urine Specific [place] 1.025 H 1.016-1.022 Urine Protein NEGATIVE NEGATIVE Urine Glucose (UA) NEGATIVE NEGATIVE Urine Ketones NEGATIVE NEGATIVE Urine Nitrite NEGATIVE NEGATIVE Urine Bilirubin NEGATIVE NEGATIVE Urine Urobilinogen 0.2 < = 1.0 MG/DL Urine Leukocyte Esterase NEGATIVE NEGATIVE Urine RBC (Auto) NEGATIVE NEGATIVE Urine RBC RARE /HPF Urine WBC 2-5 /HPF Urine Squamous Epithelial Cells 2-5 /HPF Urine Crystals NONE /LPF Urine Bacteria TRACE /HPF Urine Casts NONE /LPF Urine Mucus SMALL H /LPF Urine Culture Indicated NO Sodium Level 139 135-145 MMOL/L Potassium Level 4.1 3.6-5.0 MMOL/L Chloride Level 108 H 98-107 MMOL/L Carbon Dioxide Level 21 21-32 MMOL/L Anion Gap 10 5-14 MMOL/L Blood Urea Nitrogen 15 7-18 MG/DL Creatinine 0.77 0.60-1.30 MG/DL Estimat Glomerular Filtration Rate > 60 BUN/Creatinine Ratio 19 Glucose Level 85 70-105 MG/DL Calcium Level 9.6 8.5-10.1 MG/DL Corrected Calcium 9.3 8.5-10.1 MG/DL Total Bilirubin 0.3 0.1-1.0 MG/DL Aspartate Amino Transf (AST/SGOT) 21 5-34 U/L Alanine Aminotransferase (ALT/SGPT) 34 0-55 U/L Alkaline Phosphatase 90 40-136 U/L Total Protein 7.4 6.4-8.2 GM/DL Albumin 4.4 3.2-4.5 GM/DL Urine Opiates Screen NEGATIVE NEGATIVE Urine Oxycodone Screen NEGATIVE NEGATIVE Urine Methadone Screen NEGATIVE NEGATIVE Urine Propoxyphene Screen NEGATIVE NEGATIVE Urine Barbiturates Screen POSITIVE H NEGATIVE Ur Tricyclic Antidepressants Screen NEGATIVE NEGATIVE Urine Phencyclidine Screen NEGATIVE NEGATIVE Urine Amphetamines Screen NEGATIVE NEGATIVE Urine Methamphetamines Screen NEGATIVE NEGATIVE Urine Benzodiazepines Screen POSITIVE H NEGATIVE Urine Cocaine Screen NEGATIVE NEGATIVE Urine Cannabinoids Screen NEGATIVE NEGATIVE My Orders Orders - CAROLE DORSEY Cbc With Automated Diff (09/20/19 12:37) Comprehensive Metabolic Panel (09/20/19 12:37) Drug Screen Stat (Urine) (09/20/19 12:37) Ua Culture If Indicated (09/20/19 12:37) Ekg Tracing (09/20/19 12:37) Ed Iv/Invasive Line Start (09/20/19 12:49) Ns Iv 1000 Ml (Sodium Chloride 0.9%) (09/20/19 12:49) Meclizine Tablet (Antivert Tablet) (09/20/19 12:49) Ketorolac Injection (Toradol Injection) (09/20/19 12:49) Diphenhydramine Injection (Benadryl Inje (09/20/19 12:49) Prochlorperazine Injection (Compazine In (09/20/19 13:30) Medications Given in ED Current Medications Medications Dose Ordered Sig/Joshua Route Start Time Stop Time Status Last Admin Dose Admin Prochlorperazine Edisylate 10 mg ONCE ONCE IV 09/20/19 13:30 09/20/19 13:31 DC 09/20/19 13:40 10 MG Vital Signs/I&O 09/20/19 09/20/19 12:01 14:19 Temp 35.5 Pulse 56 58 Resp 16 16 B/P (MAP) 120/69 Pulse Ox 99 99 Progress Progress Note : Time: 12:30 Progress Note Patient seen and evaluated, no acute findings. Will give normal saline, 1 L IV, Compazine 10 mg IV, Benadryl 50 mg IV, and Toradol 30 mg IV. Patient encouraged to avoid using her phone and try to close her eyes and relax her medications can help with her pain. 1315 patient was able to rest and does feel that the edges been taken off of her migraine. IV infusing. No concerns at this time. 1400 patient continues to show signs of improvement. Discharge instructions and return precautions reviewed with her. She is questioning about a CT/MRI, not indicated at this time based on her exam and improvement. She had an MRI Apr 2019, no acute findings. Encouraged follow up with Neurologist, since symptoms have been getting worse since June. Departure Impression Primary Impression: Migraine Qualified Codes: G43.019 - Migraine without aura, intractable, without status migrainosus Additional Impression: Vertigo Disposition: HOME, SELF-CARE Condition: Improved Departure-Patient Inst. Decision time for Depature: 14:00 Referrals: REINALDO SAVAGE MD (PCP/Family) Primary Care Physician Patient Instructions: Migraine Headache (DC) Add. Discharge Instructions: Continue to take your migraine medication as prescribed. Follow-up with your neurologist or primary care provider if symptoms are not improving or worsen. Limits time in front of technology: Smart phones, TV, computer. Return to the emergency department for new, urgent health care needs. All discharge instructions reviewed with patient and/or family. Voiced understanding. Copy Copies To 1: REINALDO SAVAGE MD, AMY ARNP Sep 20, 2019 13:11
[2019-09-20] MEDS ORDERED: PROCHLORPERAZINE 10 MG/2ML INJ (COMPAZINE) IV ONE (13:30)
--- NOTE | 2019-09-20 13:44 | NUR ---
states pain is now an / down from "08/18"
--- NOTE | 2019-09-20 14:07 | NUR ---
states pain is unchanged but is not nauseated. States this is how her meds work, they work to a point then dont't work any more
[2019-09-20 14:19] VITALS: BP 120/69
== END 2019-09-20 14:23 | disposition home or self-care (01) ==
LOC: EDUNIT# 11:55 → ER 11:56
DX: G43.909 Migraine, unspecified, not intractable, without status migrainosus (principal); R42 Dizziness and giddiness; J44.9 Chronic obstructive pulmonary disease, unspecified; I10 Essential (primary) hypertension; E78.00 Pure hypercholesterolemia, unspecified; E11.42 Type 2 diabetes mellitus with diabetic polyneuropathy; M79.7 Fibromyalgia; Z88.1 Allergy status to other antibiotic agents; Z88.5 Allergy status to narcotic agent; Z88.6 Allergy status to analgesic agent; Z88.8 Allergy status to other drugs, medicaments and biological substances; Z90.710 Acquired absence of both cervix and uterus
CPT/HCPCS: 36415; 80053; 80306; 81000; 85025; 93005; 96361; 96374; 96375

== ENCOUNTER → 2020-01-15 | Outpatient (CLI) | payer OTHER, MEDICARE ==
[~2020-01-15] MED LIST changes: -ONDA8TAB12 PO; +ONDA8TAB15 PO; +[UNRECOGNIZED DRUG - CODE] PO
--- NOTE | 2020-01-15 10:51 | Diagnostic Imaging Report ---
PROCEDURE: CT sinuses without contrast TECHNIQUE: Multiple contiguous axial images were obtained through the sinuses without the use of intravenous contrast. Coronal and sagittal reformations were then performed. Auto Exposure Controls were utilized during the CT exam to meet ALARA standards for radiation dose reduction. INDICATION: Sinusitis. FINDINGS: The frontal, ethmoid, sphenoid and maxillary sinuses are clear. The ostiomeatal complexes are widely patent. There are no neville bullosa. There is mild tortuosity of the nasal septum. Mastoid air cells are clear. The globes and intraorbital structures are unremarkable. Nasopharyngeal soft tissues are symmetric and without mass effect. Visualized parotid glands are unremarkable. IMPRESSION: Mild tortuosity of the nasal septum otherwise unremarkable CT sinus. Dictated by: Dictated on workstation # [id number]
== END ==
LOC: RAD 09:05
PROVIDERS: ATTEND Otolaryngology Otolaryngology/Facial Plastic Surgery
DX: J32.9 Chronic sinusitis, unspecified (principal)
CPT/HCPCS: 70486

== ENCOUNTER → 2020-01-25 | Outpatient (CLI) | payer OTHER, MEDICARE ==
--- NOTE | 2020-01-25 14:26 | Diagnostic Imaging Report ---
PROCEDURE: US Thyroid. TECHNIQUE: Multiple real-time grayscale images were obtained of the thyroid in various projections. INDICATION: Thyroid nodule COMPARISON: Thyroid ultrasound of 03/27/2019 FINDINGS: Right thyroid lobe: The right thyroid lobe measures 3.9 x 1.0 x 0.9 cm. There is stable circumscribed hyperechoic nodule measuring 0.6 x 0.5 x 0.3 cm in the lower pole the right thyroid. No new right thyroid nodule. Isthmus: The thyroid isthmus measures 0.3 cm. Left thyroid lobe: The left thyroid lobe measures 4.5 x 1.0 x 1.6 cm. Stable adjacent benign anechoic cyst measuring up to 0.5 cm and hyperechoic 0.6 cm nodule. IMPRESSION: 1. Bilateral subcentimeter benign thyroid nodules are stable. ACR TI-RADS: TR2 (2). TI-RADS Recommendations:TR2 - Not Suspicious. No FNA. Dictated by: Dictated on workstation # [id number]
== END ==
LOC: RAD 12:24
PROVIDERS: ATTEND Family Medicine
DX: E04.1 Nontoxic single thyroid nodule (principal)
CPT/HCPCS: 76536

== ENCOUNTER 2020-02-05 07:58 | Outpatient (RCR) | payer OTHER, MEDICARE ==
[~2020-02-05] VITALS: Ht 167 cm; Wt 90.0 kg
[~2020-02-05 07:58] MED LIST changes: +ALIR75PE SQ; +CHOL500050 PO; +DICL100G18 TP; +DICY10CA12 PO; +DIPH1TAB PO; +EREN70AU2 SQ; +FLUO10CA29 PO; +FOLI0.4T2 PO; +HYDR-83 PO; +IPRA4AER IH; +METO-333 PO; +NITR30OI6 RC
[2020-02-09] MEDS ORDERED: PANT40TA2 PO (13:39)
== END 2020-02-05 14:21 | disposition home or self-care (01) ==
LOC: PREOP 07:58
PROVIDERS: ATTEND Surgery
DX: Z01.818 Encounter for other preprocedural examination (principal); Z11.59 Encounter for screening for other viral diseases; R10.12 Left upper quadrant pain
CPT/HCPCS: 87635

== ENCOUNTER → 2020-02-15 | Outpatient (CLI) | payer OTHER, MEDICARE ==
[~2020-02-15] MED LIST changes: +PANT40TA2 PO
--- NOTE | 2020-02-15 17:02 | Diagnostic Imaging Report ---
PROCEDURE: MRI right joint lower extremity without contrast. TECHNIQUE: Multiplanar, multisequence non contrast-enhanced MRI of the right lower extremity was accomplished. INDICATION: Fall with right knee injury in December 2019. History of three prior knee surgeries. COMPARISON: 07/23/2018. FINDINGS: No acute fracture or dislocation is seen in the right knee. Alignment appears normal. There is a small right knee joint effusion. The articular cartilage in the patellofemoral compartment demonstrates mild surface irregularity and thinning. The cartilage in the medial compartment demonstrates moderate thinning and surface irregularity with marginal osteophytes. The lateral compartment demonstrates no full-thickness defects. There are meniscectomy changes in the medial meniscus, with free edge tearing of the posterior root and horn which appears increased compared to the prior study. The lateral meniscus appears intact. The anterior and posterior cruciate ligaments are intact. The medial collateral ligament and the lateral collateral ligamentous complex are intact. The extensor mechanism is intact. The medial and lateral retinacula are intact. Soft tissues about the right knee are otherwise unremarkable. IMPRESSION: 1. Tearing of the medial meniscus appears mildly progressed compared to 2018, superimposed on meniscectomy changes. 2. Moderate cartilage loss in the medial right knee. 3. Small right knee joint effusion. Dictated by: Dictated on workstation # [id number]
== END ==
LOC: RAD 15:20
PROVIDERS: ATTEND Orthopaedic Surgery
DX: S83.221A Peripheral tear of medial meniscus, current injury, right knee, initial encounter (principal); W19.XXXA Unspecified fall, initial encounter; Z98.890 Other specified postprocedural states
CPT/HCPCS: 73721

== ENCOUNTER → 2020-06-28 | Outpatient (CLI) | payer OTHER, MEDICARE ==
[~2020-06-28] MED LIST changes: +FENO130C11 PO; -HYDR-83 PO; -[UNRECOGNIZED DRUG - CODE] PO
== END ==
LOC: LABNPT 05:16
PROVIDERS: ATTEND Family Medicine
DX: R05 Cough (principal); R51.9 Headache, unspecified; Z20.828 Contact with and (suspected) exposure to other viral communicable diseases
CPT/HCPCS: 87635

== ENCOUNTER → 2020-08-17 | Outpatient (CLI) | payer OTHER, MEDICARE ==
[~2020-08-17] MED LIST changes: +AMLO-250 PO; +AMLO-251 PO; -AMLO10TA7 PO; -AMLO5TAB9 PO; +ESCI10TA PO
== END ==
LOC: CARD 13:51
PROVIDERS: ATTEND Internal Medicine Cardiovascular Disease
DX: I10 Essential (primary) hypertension (principal); I08.0 Rheumatic disorders of both mitral and aortic valves
CPT/HCPCS: 93306

== ENCOUNTER 2020-08-18 06:10 | Day surgery (SDC) | payer OTHER, MEDICARE ==
[~2020-08-18] VITALS: Ht 167 cm; Wt 94.5 kg
[2020-08-18] VITALS (12 sets, daily range): BP systolic 99–129; BP diastolic 62–77
[2020-08-18] MEDS ORDERED: ceFAZolin 2 GM IV Premixed 50 ML IV ONE (06:45)
[2020-08-18] MEDS ORDERED: LACTATED RINGERS 1,000 ML IV PRN (06:45)
[2020-08-18] MEDS ORDERED: MIDAZOLAM 2 MG/2 ML (VERSED) VIAL ONE (07:04)
[2020-08-18] MEDS ORDERED: fentaNYL INJECTION 100 MCG/2 ML AMP ONE ×2 (07:04→08:39)
[2020-08-18] MEDS ORDERED: ONDANSETRON 4 MG/2 ML (SDV) Z0FRAN IV ONE (07:15)
[2020-08-18] MEDS ORDERED: FAMOTIDINE 20MG/2ML IV (PEPCID) IV ONE (07:15)
[2020-08-18] MEDS ORDERED: MIDAZOLAM 2 MG/2 ML (VERSED) VIAL IV ONE (07:15)
[2020-08-18] MEDS ORDERED: ONDANSETRON 4 MG/2 ML (SDV) Z0FRAN ONE ×2 (07:17→08:06)
[2020-08-18] MEDS ORDERED: LIDOCAINE/EPI 1%-1:100,000 (XYLOCAINE) 20ML ONE (07:24)
[2020-08-18] MEDS ORDERED: proPOfol 200 MG/20 ML (DIPRIVAN) VIAL IV ONE (08:06)
[2020-08-18] MEDS ORDERED: LIDOCAINE PF 2% 5 ML (XYLOCAINE) VIAL ONE (08:06)
[2020-08-18] MEDS ORDERED: SEVOFLURANE (ULTANE) 15 ML INHAL SOLN ONE (08:06)
[2020-08-18] MEDS ORDERED: fentaNYL INJECTION 100 MCG/2 ML AMP IVP ONE (08:30)
[2020-08-18] MEDS ORDERED: ONDANSETRON 4 MG/2 ML (SDV) Z0FRAN IVP PRN (08:30)
--- NOTE | 2020-08-18 08:34 | Discharge Inst-Simple/Standard ---
Discharge Inst-Standard Patient Instructions/Follow Up Plan of Care/Instructions/FU: 2 weeks Ricki Sitz bath 3 times a day and after bowel movements. Keep area clean and dry. You have a plug at the anus, it will come out with bowel movement. Do not remove it for 24 hours, unless you don't have a bowel movement. Activity as Tolerated: No Discharge Diet: Regular Diet Other Inst to Patient Follow up Appt: Make appointment for 2 week. Instructions: No lifting greater than 10 pounds. No strenuous activity. May shower in 24 hours, no tub bath or soaking. Use incentive spirometer at home as directed. No Smoking Skin/Wound Care: You have a plug at the anus, it will come out with bowel movement. If no bowel movement for 24 hours then you can remove it. Sitz bath 3 times a day and after bowel movements. Symptoms to Report: Appetite Changes, Extremity Discoloration, Numbness/Tingling, Swelling Increased, Bleeding Excessive, Eyesight Changes, Pain Increased, Urine Color Change, Constipation(Persistent), Fever over 101 degree F, Pain/Pressure in chest, Urinating Difficulty, Cough Up/Vomit Blood, Heart Beat Irreg/Pounding, Pain/Pressure in jaw, Vaginal Bleeding Increase, Cramps in feet or legs, Lightheadedness, Pain/Pressure in shoulder, Diarrhea(Persistent), Memory Changes Suddenly, Questions/Concerns, Weight gain consecutive days, Dizziness/Fainting, Nausea/Vomiting, Shortness of Breath, Weight gain over 2 pounds If questions or concerns contact your physician Or seek help at emergency department. LOYD RINALDI DO Aug 18, 2020 08:34
--- NOTE | 2020-08-18 08:38 | Progress Note-Post Operative ---
Post-Operative Progess Note Surgeon (s)/Roller Helper (s) Surgeon LOYD RINALDI DO Roller Helper: na Pre-Operative Diagnosis ANAL SKIN TAG Post-Operative Diagnosis same Procedure & Operative Findings Date of Procedure 08/18/20 Procedure Performed/Findings excision anal skin tag 3 x 1.1 cm Anesthesia Type gen Estimated Blood Loss Estimated blood loss (mL): min Specimens/Packing Specimens Removed anal skin tag LOYD RINALDI DO Aug 18, 2020 08:38
--- NOTE | 2020-08-18 09:42 | Anesthesia-General Post-Op ---
General Patient Condition Mental Status/LOC: Same as Preop Cardiovascular: Satisfactory Nausea/Vomiting: Absent Respiratory: Satisfactory Pain: Controlled Complications: Absent Post Op Complications Complications None Follow Up Care/Instructions Patient Instructions None needed. Anesthesia/Patient Condition Patient Condition Patient is doing well, no complaints, stable vital signs, no apparent adverse anesthesia problems. No complications reported per nursing. BRAYAN TRUJILLO CRNA Aug 18, 2020 09:42
--- NOTE | 2020-08-18 14:27 | OPERATIVE REPORT ---
DATE OF SERVICE: 08/18/2020 PREOPERATIVE DIAGNOSIS: Anal skin tag. POSTOPERATIVE DIAGNOSIS: Anal skin tag. PROCEDURE: Excision of anal skin tag 3 x 1.1 cm. SURGEON: Loyd Robison DO ANESTHESIA: General. ESTIMATED BLOOD LOSS: Minimal. COMPLICATIONS: None. SPECIMENS: Anal skin tag. INDICATIONS: The patient is a 60-year-old female with a large anal skin tag that causes her discomfort, keeping it also difficult for her to keep her bottom clean. She understands risks and benefits of procedure and wished to proceed with procedure. Consent was signed in the chart. DESCRIPTION OF PROCEDURE: The patient was taken to the operating suite. She was prepped and draped in sterile fashion in lithotomy position. Timeout was performed. Local anesthetic was infiltrated at the posterior anus. A large skin tag present. This was elevated. Harmonic was used to dissect across the base, removing the anal skin tag. Overall, dimensions 3 x 1.1 cm. Hemostasis was achieved and the area was inspected, just noting some other hemorrhoidal disease. No other pathology noted. Gelfoam and Vaseline gauze plug was then inserted into the anus to continue with hemostasis. The area was washed and dried. The patient tolerated procedure well without any complications, taken to recovery room in stable condition. Job ID: [id number] DocumentID: [id number] Dictated Date: 08/18/2020 08:41:07 Restaurant Greeter Date: 08/18/2020 14:26:22 Dictated By: LOYD ROBISON DO
== END 2020-08-18 10:40 ==
LOC: SDC 06:10
PROVIDERS: ATTEND Surgery
DX: K64.4 Residual hemorrhoidal skin tags (principal); I10 Essential (primary) hypertension; J45.909 Unspecified asthma, uncomplicated; G43.909 Migraine, unspecified, not intractable, without status migrainosus; E11.40 Type 2 diabetes mellitus with diabetic neuropathy, unspecified; E04.2 Nontoxic multinodular goiter; E66.9 Obesity, unspecified; Z68.33 Body mass index [BMI] 33.0-33.9, adult; Z79.899 Other long term (current) drug therapy; Z91.010 Allergy to peanuts; Z88.8 Allergy status to other drugs, medicaments and biological substances; Z91.018 Allergy to other foods; Z80.9 Family history of malignant neoplasm, unspecified; Z83.3 Family history of diabetes mellitus
CPT/HCPCS: 87081; 88304

== ENCOUNTER → 2020-08-24 | Outpatient (CLI) | payer OTHER, MEDICARE ==
--- NOTE | 2020-08-25 14:05 | Diagnostic Imaging Report ---
Indication: Routine screening. Comparison is made with prior mammogram 09/07/2019 and 06/19/2018. 2-D and 3-D bilateral screening mammography was performed with CAD. Scattered fibroglandular densities are identified bilaterally. Areas of fat necrosis both breasts is again noted. Benign calcifications are noted bilaterally. No mass or malignant appearing microcalcifications are seen. Axillae are unremarkable. IMPRESSION: BI-RADS Category 2 No mammographic features suspicious for malignancy are identified. ACR BI-RADS Category 2: Benign findings. Result letter will be mailed to the patient. Note: At least 10% of breast cancer is not imaged by mammography. Dictated by: Dictated on workstation # [id number]
== END ==
LOC: RAD 14:41
PROVIDERS: ATTEND Family Medicine
DX: Z12.31 Encounter for screening mammogram for malignant neoplasm of breast (principal)
CPT/HCPCS: 77063; 77067

== ENCOUNTER 2020-09-06 05:30 | Outpatient (RCR) | payer OTHER, MEDICARE ==
[~2020-09-06] VITALS: Ht 167 cm; Wt 95.4 kg
== END 2020-09-06 09:06 | disposition home or self-care (01) ==
LOC: PREOP 05:30
PROVIDERS: ATTEND Otolaryngology Otolaryngology/Facial Plastic Surgery
DX: Z01.812 Encounter for preprocedural laboratory examination (principal); Z53.8 Procedure and treatment not carried out for other reasons

== ENCOUNTER → 2021-01-13 | Outpatient (CLI) | payer OTHER, MEDICARE ==
[~2021-01-13] MED LIST changes: -FOLI0.4T2 PO; +FOLI0.4T6 PO; -FOLI1TAB24 PO; +FOLI1TAB33 PO
--- NOTE | 2021-01-13 12:54 | Diagnostic Imaging Report ---
PROCEDURE: US Thyroid. TECHNIQUE: Multiple real-time grayscale images were obtained of the thyroid in various projections. INDICATION: Thyroid nodules. CORRELATION is made with prior thyroid ultrasound from 01/25/2020. The right lobe of the thyroid measures 4.3 x 1.0 x 1.1 cm and left lobe measures 4.4 x 0.8 x 1.4 cm. Isthmus is 3 mm in thickness. A slightly hyperechoic nodule lower pole right lobe measures 6 mm x 4 mm, unchanged. Several subcentimeter nodules are identified in the left lobe mid and lower aspects. Two nodules in the mid to lower aspect are similar at approximately 5 mm x 4 mm. There is a new approximately 5 mm nodule more inferiorly in the lower pole which is slightly hyperechoic. This was not present on the prior exam. No dominant mass is seen. IMPRESSION: Subcentimeter thyroid nodules, similar to examination one year earlier. No dominant thyroid mass is detected. Dictated by: Dictated on workstation # [id number]
== END ==
LOC: RAD 11:00
PROVIDERS: ATTEND Family Medicine
DX: E04.2 Nontoxic multinodular goiter (principal)
CPT/HCPCS: 76536

== ENCOUNTER → 2021-06-02 | Outpatient (CLI) | payer OTHER, MEDICARE ==
[~2021-06-02] MED LIST changes: -ALIR150P SQ; +ALIR150P3 SQ; -ALIR75PE SQ; +ALIR75PE5 SQ; -SULF1TAB35 PO; +SULF1TAB38 PO
--- NOTE | 2021-06-06 14:08 | Diagnostic Imaging Report ---
EXAMINATION: Bilateral breast ultrasound. INDICATION: Breast pain. COMPARISON: There are no recent studies available for comparison. FINDINGS: The previous left breast ultrasound exam of 09/07/2019 did note a 2.0 x 1.2 x 1.4 cm cystic lesion in the 9 o'clock position of the retroareolar region of the left breast. That finding cannot be identified on this exam with certainty. There is a similar-appearing hypoechoic lesion in the 3 o'clock position of the retroareolar region, however. This is most likely a benign process such as a cyst as there does seem to be through transmission and no internal vascularity. There is also a benign-appearing 8 x 9 mm cyst in the 10 o'clock position of the right breast roughly 4 cm from the nipple. There are no solid lesions involving the breasts. Both axilla were also evaluated. There is no mass or adenopathy involving the axilla. IMPRESSION: 1. There are small benign-appearing cysts associated with both breasts. There is no solid mass to suggest malignancy. 2. There is no acute abnormality identified either. ACR BI-RADS Category 2: Benign findings. Dictated on workstation # [id number]
== END ==
LOC: RAD 10:30
PROVIDERS: ATTEND Obstetrics & Gynecology
DX: N64.4 Mastodynia (principal)

== ENCOUNTER 2021-07-03 05:33 | Outpatient (RCR) | payer OTHER, MEDICARE ==
[2021-06-12 12:43] LABS: BASOPHILS % (AUTO) 0 % (0-10); EOSINOPHILS # (AUTO) 0.2 10^3/uL (0.0-0.3); EOSINOPHILS % (AUTO) 4 % (0-10); HEMATOCRIT 39 % (35-52); HEMOGLOBIN 12.3 g/dL (11.5-16.0); LYMPHOCYTES # (AUTO) 1.3 10^3/uL (1.0-4.0); LYMPHOCYTES % (AUTO) 22 % (12-44); MEAN CORPUSCULAR HEMOGLOBIN 29 pg (25-34); MEAN CORPUSCULAR HGB CONC 32 g/dL (32-36); MEAN CORPUSCULAR VOLUME 93 fL (80-99); MEAN PLATELET VOLUME 9.8 fL (9.0-12.2); MONOCYTES # (AUTO) 0.4 10^3/uL (0.0-1.0); MONOCYTES % (AUTO) 7 % (0-12); NEUTROPHILS % (AUTO) 68 % (42-75); PLATELET COUNT 205 10^3/uL (130-400); WHITE BLOOD COUNT 5.9 10^3/uL (4.3-11.0)
[2021-06-12 13:01] LABS: ALBUMIN 3.7 GM/DL (3.2-4.5); INR 0.9 (0.8-1.4); PROTHROMBIN TIME PATIENT 12.7 SEC (12.2-14.7)
[2021-06-12 13:01] LABS: BILIRUBIN,URINE NEGATIVE (NEGATIVE); CLARITY,URINE SL CLOUDY; COLOR,URINE YELLOW; GLUCOSE, URINE (UA) NEGATIVE (NEGATIVE); KETONES,URINE NEGATIVE (NEGATIVE); LEUKOCYTE ESTERASE ,URINE NEGATIVE (NEGATIVE); NITRITE,URINE NEGATIVE (NEGATIVE); PROTEIN,URINE NEGATIVE (NEGATIVE)
[2021-06-12 13:02] LABS: ERYTHROCYTE SEDIMENTATION RATE 13 MM/HR (0-30)
[2021-06-12 13:03] LABS: TOTAL PROTEIN 6.3 GM/DL (6.4-8.2)
[2021-06-12 13:05] LABS: BILIRUBIN,TOTAL 0.2 MG/DL (0.1-1.0)
[2021-06-12 13:07] LABS: CREATININE SERUM 0.72 MG/DL (0.60-1.30)
[2021-06-12 13:25] LABS: BACTERIA,URINE TRACE /HPF; WBC,URINE RARE /HPF
--- NOTE | 2021-06-12 16:04 | Diagnostic Imaging Report ---
INDICATION: Preop right knee arthroplasty, degenerative joint disease. EXAMINATION: PA and lateral chest. FINDINGS: Heart size and pulmonary vascularity are normal. Lungs are clear. There are no effusions or pneumothoraces. IMPRESSION: Negative chest. Dictated by: Dictated on workstation # [id number]
[~2021-07-03] VITALS: Ht 168.5 cm; Wt 97.1 kg
[~2021-07-03 05:33] MED LIST changes: +CHOL200074 PO; +TIZA-169 PO
== END 2021-07-03 10:02 | disposition home or self-care (01) ==
LOC: PREOP 05:33
PROVIDERS: ATTEND Orthopaedic Surgery
DX: Z01.818 Encounter for other preprocedural examination (principal); M17.11 Unilateral primary osteoarthritis, right knee; R53.83 Other fatigue; Z11.2 Encounter for screening for other bacterial diseases; Z20.822 Contact with and (suspected) exposure to COVID-19
CPT/HCPCS: 36415; 71046; 80053; 81000; 85025; 85610; 85652; 86850; 86900; 86901; 87081; 87635; 93005

== ENCOUNTER 2021-07-05 06:09 | Inpatient (IN) | payer OTHER, MEDICARE ==
--- NOTE | 2021-06-21 13:12 | HISTORY AND PHYSICAL ---
DATE OF SERVICE: INPATIENT ADMISSION HISTORY AND PHYSICAL DATE OF ADMISSION: 07/05/2021. Inpatient admission date of service, date of surgery and date of admission will be 07/05/2021. This will be for regular inpatient admission for right total knee arthroplasty for pain management, need for physical therapy and comorbidities. HISTORY OF PRESENT ILLNESS: The patient is a 61-year-old female with a longstanding progressive right knee pain. Radiographs reveals complete loss of medial patellofemoral joint spaces. She reports increasing medial and posterior knee pain. She has undergone treatment with injections, anti-inflammatories, arthroscopy and rest without relief. Her radiographs have demonstrated progressive loss of joint space. Due to functional impairment and failure to improve with conservative measures, the patient has elected to proceed with surgical intervention. REVIEW OF SYSTEMS: No chest pain, no shortness of breath, and no dysuria. PAST MEDICAL HISTORY: Anxiety disorder, back pain, fibromyalgia, migraines, hypertension, osteoarthritis, diabetes, hypercholesterolemia, neuropathy, panic attacks, claustrophobia, herniated disk, Raynaud's, and reflex sympathetic. PAST SURGICAL HISTORY: Cholecystectomy, hysterectomy, rotator cuff repair, rectocele, right foot, bladder sling, bilateral carpal tunnel, cataracts, breast lift, neck lift, brow lift, cubital tunnel, abdominoplasty, right total hip arthroplasty, and right knee arthroscopy. FAMILY HISTORY: Significant for hypertension, skin cancer, and diabetes. PRIMARY CARE PROVIDER: Dr. Ledesma. MEDICATIONS: Hydrocodone, tizanidine, Lexapro, potassium, Zetia, fish oil, Maxalt, metoprolol, Zyrtec, cholestyramine, Zofran, Voltaren, Combivent, Topamax, and Valium. ALLERGIES: LEVAQUIN, MACROBID, GABAPENTIN, SAVELLA, CYMBALTA, CEFUROXIME, SYNTHROID, NUTS, GLUTEN, LYRICA, ULTRAM, NEURONTIN, PERCOCET, METANX, PREDNISONE, and LIPITOR. SOCIAL HISTORY: The patient denies alcohol and tobacco use. PHYSICAL EXAMINATION: GENERAL: The patient is well-developed, well-nourished, and in no acute distress. HEENT: Normocephalic and atraumatic. Pupils are equal, round and reactive to light. Oropharynx is clear. NECK: Supple and no lymphadenopathy. LUNGS: Clear to auscultation bilaterally. HEART: Regular rate and rhythm. ABDOMEN: Soft, nontender, and nondistended. EXTREMITIES: The right knee demonstrates varus alignment with slight effusion. She ambulates with an antalgic gait. Range of motion is 0/2/125. She is tender along the medial femoral condyle and has pain with the patellar loading. No varus or valgus laxity. Negative anterior and posterior drawer. IMPRESSION: Severe right knee osteoarthritis, unresponsive to conservative measures. PLAN: Right total knee arthroplasty. The risks, benefits, options, ramifications and recovery have been discussed at length with the patient. She understands and wishes to proceed. Job ID: [id number] DocumentID: [id number] Dictated Date: 06/21/2021 11:39:33 Boxing Inspector Date: 06/21/2021 13:12:36 Dictated By: ALBERTO FREIRE MD
[~2021-07-05] VITALS: Ht 168 cm; Wt 97.1 kg
[2021-07-05] VITALS (13 sets, daily range): BP systolic 94–148; BP diastolic 53–82
[2021-07-05] MEDS ORDERED: CLINDAMYCIN 900 MG/50 ML IVPB 50 ML IV ONE (06:15)
[2021-07-05] MEDS ORDERED: ROPIVACAINE 5MG/ML 30ML VIAL ONE (06:51)
[2021-07-05] MEDS ORDERED: MIDAZOLAM 2 MG/2 ML (VERSED) VIAL ONE ×2 (06:51→07:17)
[2021-07-05] MEDS ORDERED: ONDANSETRON 4 MG/2 ML (SDV) Z0FRAN IV ONE (07:00)
[2021-07-05] MEDS ORDERED: FAMOTIDINE 20MG/2ML IV (PEPCID) IV ONE (07:00)
[2021-07-05] MEDS ORDERED: MIDAZOLAM 2 MG/2 ML (VERSED) VIAL IV ONE (07:00)
[2021-07-05] MEDS: LACTATED RINGERS 1,000 ML IV PRN ×2 (07:12→07:38)
[2021-07-05] MEDS ORDERED: SEVOFLURANE (ULTANE) 15 ML INHAL SOLN ONE ×2 (07:17→08:53)
[2021-07-05] MEDS ORDERED: LIDOCAINE PF 2% 5 ML (XYLOCAINE) VIAL ONE (07:17)
[2021-07-05] MEDS ORDERED: ROCURONIUM 10 MG/ML 5 ML SYRINGE IV ONE (07:17)
[2021-07-05] MEDS ORDERED: proPOfol 200 MG/20 ML (DIPRIVAN) VIAL IV ONE (07:17)
[2021-07-05] MEDS ORDERED: ONDANSETRON 4 MG/2 ML (SDV) Z0FRAN ONE (07:17)
[2021-07-05] MEDS ORDERED: fentaNYL INJ 100 MCG/2 ML AMP ONE ×2 (07:17→09:44)
[2021-07-05] MEDS ORDERED: diphenhydrAMINE 50 MG/ML INJ (BENADRYL) IVP PRN (07:30)
[2021-07-05] MEDS ORDERED: NALOXONE 0.4 MG/ML 1 ML (NARCAN) VIAL IV PRN (07:30)
[2021-07-05] MEDS ORDERED: INTRA-ARTICULAR IU ONE ×5 (07:30)
[2021-07-05] MEDS ORDERED: morphine PCA 100 MG/100 ML BAG IV PRN (07:30)
--- NOTE | 2021-07-05 07:32 | Progress Note-Pre Operative ---
Pre-Operative Progress Note H&P Reviewed The H&P was reviewed, patient examined and no changes noted. Date Seen by Provider: Jul 05, 2021 Time Seen by Provider: 07:20 Date H&P Reviewed: Jul 05, 2021 Time H&P Reviewed: 07:11 Pre-Operative Diagnosis: right knee primary osteoarthritis ALBERTO FREIRE MD Jul 05, 2021 07:32
--- NOTE | 2021-07-05 07:33 | Progress Note-Post Operative ---
Post-Operative Progess Note Surgeon (s)/Rubber Mixer (s) Surgeon ALBERTO FREIRE MD Rubber Mixer: Josue Holbrook Pre-Operative Diagnosis right knee primary osteoarthritis Post-Operative Diagnosis right knee primary osteoarthritis Procedure & Operative Findings Date of Procedure 07/05/21 Procedure Performed/Findings right total knee arthroplasty Anesthesia Type GETA Estimated Blood Loss Estimated blood loss (mL): minimal Specimens/Packing Specimens Removed none Packing: none ALBERTO FREIRE MD Jul 05, 2021 07:33
--- NOTE | 2021-07-05 07:37 | D/C HH Face to Face Order ---
D/C Face to Face Orders Reconcile Patient Problems Problems Reviewed?: Yes Instructions for Patient Via [employer], Patient Instructions/FollowUp: three weeks Physician to follow Patient: three weeks Discharge Diet for Home: Regular Diet Patient Data-Allergies,Ht & Wt Patient Allergies: Coded Allergies: cefuroxime (Verified Allergy, Severe, NAUSEA/DIFF BREATHING/BRUISING, 09/01/20) levofloxacin (Verified Allergy, Severe, HIVES, SHORTNESS OF BREATH, HAND SWELLS, 09/01/20) nitrofurantoin (Verified Allergy, Severe, HIVES, SHORTNESS OF BREATH, ITCHING, 09/01/20) duloxetine (Verified Allergy, Intermediate, TROUBLE BREATHING, HEART RACED, PANIC ATTACH, 09/01/20) acetaminophen (Verified Allergy, Mild, ITCHING, INSOMNIA, 09/01/20) gluten (Verified Allergy, Mild, 09/01/20) levomefolate calcium (Verified Allergy, Mild, NAUSEA, WEIGHT GAIN, 09/01/20) mecobalamin (Verified Allergy, Mild, NAUSEA, WEIGHT GAIN, 09/01/20) oxycodone (Verified Allergy, Mild, ITCHING, INSOMNIA, 09/01/20) prednisone (Verified Allergy, Mild, 09/01/20) ITCING pyridoxal phosphate (Verified Allergy, Mild, NAUSEA, WEIGHT GAIN, 09/01/20) tramadol (Verified Allergy, Mild, HIVES, ITCHING, 09/01/20) atorvastatin (Verified Allergy, Unknown, joint pain, 06/12/21) levothyroxine sodium (Verified Allergy, Unknown, mood swings, 09/01/20) nut - unspecified (Verified Allergy, Unknown, 06/12/21) rosuvastatin (Verified Allergy, Unknown, joint pain, 06/12/21) gabapentin (Verified Adverse Reaction, Intermediate, SICK FEELING, HEART RACED, 09/01/20) milnacipran (Verified Adverse Reaction, Intermediate, NAUSEA, MIGRAINES, 09/01/20) Uncoded Allergies: dissolvable stitches (Allergy, Unknown, 09/25/16) Height (Feet): 5 Height (Inches): 6.00 Weight (Pounds): 190 Weight (Ounces): 0.0 Home Health Need/Face to Face Date of Face to Face: Jul 05, 2021 Clinical Findings: Muscle weakness, Pain with ambulation, Unsteady gait I have seen Pt ugtr-uk-[id number]: Yes Discharged To: Home Diagnosis/Conditions: right total knee arthroplasty Patient is Homebound due to: Muscle weakness, Pain w/ambulation Homebound Status Due to the above stated illness, injury or surgical procedure (medical condition or diagnosis) and associated clinical findings, the patient is homebound because of his/her inability to leave home except with aid of a supportive device and/or person AND leaving the home requires a considerable and taxing effort or is medically contraindicated. Pt req the following assistanc: [facility] Nursing Orders Home Health Services Order: Physical Therapy-Evaluate & Treat DC right knee sveta and apply steri strips 07/19/21 Home Health Infusion Therapy Line Start Date: Jul 05, 2021 Therapy Orders Therapy Orders: Physical Therapy, PT to assess for OT Therapy Specific Orders: Eval assistive deivces, Teach enviro modifications/safety, Gait training, Increase strength/endurance, Provider maintenance therapy, Restore ROM Certify Stmt I certify that this patient is under my care and that I, a nurse practitioner or a physician; a pastoral assistant working with me, had a face to face encounter that - meets the physician face to face encounter requirements with this patient as dated. ALBERTO FREIRE MD Jul 05, 2021 07:37
[2021-07-05] MEDS ORDERED: TRANEXAMIC ACID 100 MG/ML 10 ML INJECTION ONE (07:45)
[2021-07-05] MEDS ORDERED: GLYCOPYRROLATE 0.2 MG/ML (ROBINUL) 2 ML VIAL ONE (08:03)
[2021-07-05] MEDS ORDERED: fentaNYL INJ 100 MCG/2 ML AMP IVP ONE (09:15)
[2021-07-05] MEDS ORDERED: ONDANSETRON 4 MG/2 ML (SDV) Z0FRAN IVP PRN (09:15)
--- NOTE | 2021-07-05 09:46 | Diagnostic Imaging Report ---
EXAMINATION: Right knee radiographs, 2 views. COMPARISON: None. HISTORY: 61-year-old male, status post right total knee arthroplasty. FINDINGS: There is a right total knee prosthesis. The hardware appears intact. There are anterior skin sveta. Intra-articular and soft tissue gas likely reflect recent postoperative state of the patient. There is no identified acute fracture. IMPRESSION: 1. Placement of a right total knee prosthesis without identified complication. Dictated by: Dictated on workstation # [id number]
--- NOTE | 2021-07-05 10:10 | Progress Note ---
Standard Progress Note Progress Notes/Assess & Plan Date Seen by a Provider: Jul 05, 2021 Time Seen by a Provider: 10:09 Progress/Assessment & Plan post op check no complaints radiographs--HW well positioned without fracture RLE--2 plus DP pulse with brisk cap refill, Intact DF and PF of toes and ankle. Sensation intact to light touch throughout s/p RTKA mobilize as able ALBERTO FREIRE MD Jul 05, 2021 10:10
[2021-07-05] MEDS ORDERED: NS IV 1000 ML 1,000 ML ONE (10:27)
[2021-07-05] MEDS ORDERED: morphine PCA 100 MG/100 ML BAG IV ONE (10:27)
[2021-07-05] MEDS: NS IV 1000 ML 1,000 ML IV SCH ×2 (10:40→21:59)
[2021-07-05] MEDS: SENNA W/DOCUSATE (SENOKOT S) TABLET PO SCH ×2 (12:02→18:21)
--- NOTE | 2021-07-05 14:07 | OPERATIVE REPORT ---
DATE OF SERVICE: 07/05/2021 PREOPERATIVE DIAGNOSIS: Right knee primary osteoarthritis. POSTOPERATIVE DIAGNOSIS: Right knee primary osteoarthritis. PROCEDURE: Right total knee arthroplasty. SURGEON: Toribio Freire MD CLINICAL OFFICE TECHNICIAN: Josue Holbrook, who assisted throughout the procedure and closed the incision. ANESTHESIA: General endotracheal plus femoral nerve block as per my request for postoperative pain management by Josue Kowalski CRNA. TOURNIQUET TIME: Approximately 60 minutes at 300 mmHg. ESTIMATED BLOOD LOSS: Minimal. DRAINS: None. COMPLICATIONS: None. POSTOPERATIVE PLAN: Routine protocol. The patient was transferred to the recovery room awake and stable condition. MATERIALS: Microport cemented size 4 femur, cemented size 4 tibia with a 12 mm insert and cemented size 32 patellar button. STATEMENT OF MEDICAL NECESSITY: The patient is a 61-year-old female with long-standing progressive right knee pain. Radiographs revealed complete loss of medial joint space with moderate patellofemoral joint space narrowing. She had undergone treatment with multiple arthroscopies as well as injections, physical therapy and anti-inflammatories without relief. Due to functional impairment and failure to improve with conservative measures, the patient elected to proceed with surgical intervention. DESCRIPTION OF PROCEDURE: After risks and benefits of procedure were discussed and questions were answered, informed consent was signed and placed on chart, the operative site was confirmed in the preoperative holding area initialed by the surgeon. The patient was then transferred to the operating room and after adequate levels of general endotracheal anesthetic were obtained, a timeout was called, confirming the operative site. The right lower extremity was prepped and draped in the usual sterile fashion with the leg elevated and the knee flexed. Tourniquet was inflated to 300 mmHg. A standard anterior approach was utilized. Hemostasis was obtained with cautery and medial parapatellar arthrotomy was performed leaving 1 cm cuff on the patella for later reattachment. A portion of the fat pad was resected. A subperiosteal release was performed on the proximal medial tibia being careful to stay on the bony surface. The ACL was resected. The intramedullary guide was passed into the femur. The distal cutting block was placed and the distal cut was made. Femur sized to a size 4. The 4 cutting block was placed parallel to the epicondylar axis and cuts were made from posterior to anterior. Subperiosteal release was then carefully performed on the posterior distal femur, being careful to stay on the bony surface. Intramedullary guide was then passed into the tibia. The cutting block was placed. The drop lizbeth transected the intermalleolar axis and the cut was made. The four baseplate was pinned into position. The drop lizbeth transected the intermalleolar axis. This was then prepared with the drill and keel punch. The femoral trial was then placed and trochlear cut was made. A 12 mm insert was placed. There was some tightness in flexion. Therefore, the PCL was partially released. This allowed a greater than 120 degrees of flexion with full extension, no varus valgus laxity. 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 The patella was prepared by resecting 10 mm off the undersurface. The peg guide was placed and peg holes were drilled. A 32 trial was placed. Knee was taken through range of motion. The patella tracked well and there was no instability in the AP or medial lateral planes. The trials were removed. The joint was irrigated with pulse lavage. Periarticular block was placed in the posterior capsule, medial and lateral retinaculum extensor mechanism, subcutaneous tissues. The bone ends were irrigated and dried and the tibial baseplate was then cemented into position. Excessive cement was removed, the superior surface was irrigated and dried and the polyethylene insert was placed. The distal femur was irrigated and dried and the femoral prosthesis was cemented into position. The knee was brought out in full extension until cement had cured. Excessive cement was removed. The undersurface of patella was irrigated and dried and the patellar button was cemented into position. Excessive cement was removed. Once the cement had cured, the knee was taken through range of motion. Full extension was easily obtained under 20 degrees of flexion with gravity was easily obtained. There was no medial or lateral or anterior/posterior laxity in flexion or extension. The patella tracked well. The joint was further irrigated with pulse lavage. Arthrotomy was closed with #2 Tevdek in xhbjox-ww-lubsn interrupted fashion. The wound was further irrigated and the subcutaneous layer using a total of 6 liters throughout the procedure. A 0 Vicryl was used for deep subcutaneous tissue, 2-0 Vicryl for the superficial subcutaneous tissue, sveta used on the skin. A soft dressing was applied. The tourniquet was deflated. The patient was transferred to the recovery room awake and in stable condition. Job ID: [id number] DocumentID: [id number] Dictated Date: 07/05/2021 09:09:27 Caterer'S Aide Date: 07/05/2021 14:06:50 Dictated By: TORIBIO FREIRE MD
[2021-07-05] MEDS: CLINDAMYCIN 600 MG/50 ML IVPB 50 ML IV SCH ×2 (14:12→21:54)
--- NOTE | 2021-07-05 14:16 | Physical Therapy Evaluation ---
PT Evaluation-General Medical Diagnosis Admission Date Jul 05, 2021 at 06:09 Medical Diagnosis: right TKA Onset Date: Jul 05, 2021 Therapy Diagnosis Therapy Diagnosis: impaired mobility, strength, endurance, ROM Height/Weight Height (Feet): 5 Height (Inches): 6.00 Weight (Pounds): 190 Weight (Ounces): 0.0 Referral Physician: Yusef Reason for Referral: Evaluation/Treatment Medical History Additional Medical History PAST MEDICAL HISTORY: Anxiety disorder, back pain, fibromyalgia, migraines, hypertension, osteoarthritis, diabetes, hypercholesterolemia, neuropathy, panic attacks, claustrophobia, herniated disk, Raynaud's, and reflex sympathetic. PAST SURGICAL HISTORY: Cholecystectomy, hysterectomy, rotator cuff repair, rectocele, right foot, bladder sling, bilateral carpal tunnel, cataracts, breast lift, neck lift, brow lift, cubital tunnel, abdominoplasty, right total hip arthroplasty, and right knee arthroscopy. Reviewed History: Yes Social History Current Living Status: Spouse Entry Into Home: Stairs With Railing PT Steps Into Home: 3 Prior Prior Level of Function SCALE: Activities may be completed with or without assistive devices. 4-Nurwjxendz-ntbrlqh completes the activity by him/herself with no assistance from a helper. 5-Set-up or Clean-up Assistance-helper sets up or cleans up; patient completes activity. [place] assists only prior to or following the activity. 4-Supervision or Touching Assistance-helper provides verbal cues and/or touching/steadying and/or contact guard assistance as patient completes activity. Assistance may be provided throughout the activity or intermittently. 3-Partial/Moderate Assistance-helper does LESS THAN HALF the effort. [place] lifts, holds or supports trunk or limbs, but provides less than half the effort. 2-Substantial/Maximal Assistance-helper does MORE THAN HALF the effort. [place] lifts or holds trunk or limbs and provides more than half the effort. 2-Jpqkwiprz-eletox does ALL the effort. Patient does none of the effort to complete the activity. Or, the assistance of 2 or more helpers is required for the patient to complete the activity. If activity was not attempted, code reason: 7-Patient Refused. 9-Not Applicable-not attempted and the patient did not perform the activity before the current illness, exacerbation or injury. 10-Not Attempted due to Environmental Limitations-(lack of equipment, weather restraints, etc.). 88-Not Attempted due to Medical Conditions or Safety Concerns. Bed Mobility: 6 Transfers (B,C,W/C): 6 Gait: 6 Stairs: 6 Indoor Mobility (Ambulation): Independent (6) Stairs: Independent (6) Patient has a pretty recent DONY and was still using a SPC occasionally PT Evaluation-Current Subjective Patient in bed pre tx, agrees to PT, has 7/10 pain in right knee. Pt/Family Goals to be independent at home Objective Patient Orientation: Person, Place, Situation ROM/Strength ROM Lower Extremities right knee flexion 55 degrees, extension +5 degrees Neuromuscular (Tone, Coordination, Reflexes) Patient cannot move her right ankle much yet Sensory Vision: Functional Hearing: Functional Sensation Right Lower Extremit: Intact Sensation Left Lower Extremity: Intact Transfers Roll Left to Right (QC): 6 Sit to Lying (QC): 3 Lying to Sitting/Side of Bed(Q: 4 Sit to Stand (QC): 4 Chair/Dzy-vv-Jrlvf Xfer(QC): 4 Toilet Transfer (QC): 4 cues for hand placement and positioning, min assist with right leg for sit to supine Gait Does the Patient Walk?: Yes Mode of Locomotion: Walk Anticipated Mode of Locomotion: Walk Walk 10 feet (QC): 4 Distance: 10'x2 Gait Assistive Device: FWW Comments/Gait Description Patient ambulates to the restroom and back to her bed. Has right side dropfoot at this time, her knee doesn't buckle. Balance Sitting Static: Normal Sitting Dynamic: Normal Standing Static: Fair Standing Dynamic: Fair Treatment supine RLE TKA protocol x10 (AP, QS, HS, SLR, SAQ), CPM donned and set to 56/-2 degrees and fit to leg. Assessment/Needs Patient in bed post tx with nurse call, phone, tray, all needs met. Patient still has right foot drop and needs min assist for sit to supine. Rehab Potential: Fair PT Intermediate Goals Rack Carrier Goals PT Rack Carrier Goals Time Frame: Jul 12, 2021 Roll Left & Right (QC): 6 Sit to Lying (QC): 6 Lying-Sitting on Side/Bed(QC): 6 Sit to Stand (QC): 4 (SBA) Chair/Bug-pd-Fnuht Xfer(QC): 4 (SA) Walk 10 feet (QC): 4 (SBA) Walk 50ft with 2 Turns (QC): 4 (SBA) Walk 150 ft (QC): 4 (SBA) 1 Step (curb) (QC): 4 (CGA) 4 Steps (QC): 4 (CGA) PT Plan Problem List Problem List: Activity Tolerance, Functional Strength, Safety, Balance, Gait, Transfer, Bed Mobility, ROM Treatment/Plan Treatment Plan: Continue Plan of Care Treatment Plan: Bed Mobility, Education, Functional Activity Elsy, Functional Strength, Gait, Safety, Therapeutic Exercise, Transfers Treatment Duration: Jul 12, 2021 Frequency: 11 times per week Estimated Hrs Per Day: .25 hour per day Patient and/or Family Agrees t: Yes Safety Risks/Education Patient Education: Gait Training, Transfer Techniques, Reviewed Use of Ice, Correct Positioning, Safety Issues Teaching Recipient: Patient Teaching Methods: Demonstration, Discussion Response to Teaching: Reinforcement Needed Discharge Recommendations Plan Patient will perform bed mobility and transfer training, balance and endurance training, functional strengthening, stair training, gait training, and education, to improve functional mobility and independence at home. Therapy Discharge Recommendati: Home & Family, Post Acute PT Time/GCodes Time In: 1330 Time Out: 1400 Total Billed Treatment Time: 30 Total Billed Treatment 1 visit EVLindy 15' FA 15' DANA RYAN PT Jul 05, 2021 14:16
[2021-07-06 00:24] VITALS: BP 111/57
[2021-07-06] MEDS: ONDANSETRON 4 MG/2 ML (SDV) Z0FRAN IVP PRN ×3 (03:18→22:47)
[2021-07-06] MEDS: HYDROmorphone (DILAUDID) 4 MG TAB PO PRN ×4 (03:30→20:00)
[2021-07-06 03:44] VITALS: BP 115/56
[2021-07-06] MEDS: CLINDAMYCIN 600 MG/50 ML IVPB 50 ML IV SCH (05:55)
[2021-07-06] MEDS: MULTIVIT W/MINERALS TAB (THERAGRAN M) PO SCH (06:58)
[2021-07-06 07:13] LABS: HEMOGLOBIN 11.6 g/dL (11.5-16.0)
--- NOTE | 2021-07-06 07:40 | Progress Note ---
Standard Progress Note Progress Notes/Assess & Plan Date Seen by a Provider: Jul 06, 2021 Time Seen by a Provider: 07:39 Progress/Assessment & Plan post op check no complaints radiographs--HW well positioned without fracture RLE--2 plus DP pulse with brisk cap refill, Intact DF and PF of toes and ankle. Sensation intact to light touch throughout s/p RTKA mobilize as able Final Diagnosis no complaints Vital Signs Date Time Temp Pulse Resp B/P (MAP) Pulse Ox O2 Delivery O2 Flow Rate FiO2 07/06/21 06:21 37.2 07/06/21 05:59 18 07/06/21 03:44 37.8 87 20 115/56 (75) 94 Room Air 07/06/21 00:24 36.7 79 22 111/57 (75) 91 Room Air 07/05/21 20:55 Room Air 07/05/21 19:44 36.6 73 18 108/59 (75) 91 Room Air 07/05/21 16:00 36.2 77 20 94/53 (67) 92 Room Air 07/05/21 11:48 34.0 71 20 131/62 (85) 94 Room Air 07/05/21 10:14 35.3 73 20 138/63 (88) 94 Room Air 07/05/21 10:12 Room Air 07/05/21 10:08 Room Air 07/05/21 10:00 37 20 131/72 (91) 93 Room Air 07/05/21 09:50 16 123/71 (88) 97 Room Air 07/05/21 09:45 Room Air 07/05/21 09:40 20 140/72 (94) 96 Room Air 07/05/21 09:30 17 143/73 (96) 98 OxyMask 2 07/05/21 09:30 OxyMask 2 07/05/21 09:20 19 148/80 (102) 100 OxyMask 3 07/05/21 09:15 OxyMask 6 07/05/21 09:10 17 110/62 (78) 100 OxyMask 6 07/05/21 09:08 OxyMask 8 07/05/21 09:08 36.1 16 102/53 (69) 98 OxyMask 8 I & O 07/06/21 07:00 Intake Total 6920 ml Balance 6920 ml Laboratory Tests Test 07/06/21 06:20 Range/Units Hemoglobin 11.6 11.5-16.0 g/dL Hematocrit 35 35-52 % RLE--NVI distally. Able to perform SLR. No calf tenderness s/p RTKA doing well PT/OT ALBERTO FREIRE MD Jul 06, 2021 07:40
[2021-07-06 07:57] VITALS: BP 113/56
[2021-07-06] MEDS: SENNA W/DOCUSATE (SENOKOT S) TABLET PO SCH ×2 (08:03→19:47)
--- NOTE | 2021-07-06 08:56 | Consultation ---
History of Present Illness History of Present Illness Patient Consulted On(henrique/time) 07/06/21 08:56 Allergies and Home Medications Allergies Coded Allergies: cefuroxime (Verified Allergy, Severe, NAUSEA/DIFF BREATHING/BRUISING, 09/01/20) levofloxacin (Verified Allergy, Severe, HIVES, SHORTNESS OF BREATH, HAND SWELLS, 09/01/20) nitrofurantoin (Verified Allergy, Severe, HIVES, SHORTNESS OF BREATH, ITC DASIA, 09/01/20) duloxetine (Verified Allergy, Intermediate, TROUBLE BREATHING, HEART RACED, PANIC ATTACH, 09/01/20) gluten (Verified Allergy, Mild, 09/01/20) levomefolate calcium (Verified Allergy, Mild, NAUSEA, WEIGHT GAIN, 09/01/20) mecobalamin (Verified Allergy, Mild, NAUSEA, WEIGHT GAIN, 09/01/20) oxycodone (Verified Allergy, Mild, ITCHING, INSOMNIA, pt has rec Dilaudid & Lortab, 07/05/21) prednisone (Verified Allergy, Mild, 09/01/20) ITCING pyridoxal phosphate (Verified Allergy, Mild, NAUSEA, WEIGHT GAIN, 09/01/20) tramadol (Verified Allergy, Mild, HIVES, ITCHING, 09/01/20) atorvastatin (Verified Allergy, Unknown, joint pain, 06/12/21) levothyroxine sodium (Verified Allergy, Unknown, mood swings, 09/01/20) nut - unspecified (Verified Allergy, Unknown, 06/12/21) rosuvastatin (Verified Allergy, Unknown, joint pain, 06/12/21) gabapentin (Verified Adverse Reaction, Intermediate, SICK FEELING, HEART RACED, 09/01/20) milnacipran (Verified Adverse Reaction, Intermediate, NAUSEA, MIGRAINES, 09/01/20) Uncoded Allergies: dissolvable stitches (Allergy, Unknown, 09/25/16) Patient Home Medication List Albuterol/Ipratropium (Combivent Respimat Inhal [place]) 4 Gm Aero, 2 PUFF IH QID PRN for SHORTNESS OF BREATH, (Reported) Entered as Reported by: YUNI PHILLIPS on 02/02/20 1534 Alirocumab (Praluent Pen) 75 Mg/1 Ml Pen.injctr, 75 MG SQ TWICE A MONTH, (Reported) Entered as Reported by: YUNI PHILLIPS on 02/02/20 153 Alirocumab (Praluent Pen) 75 Mg/1 Ml Pen.injctr, 75 MG SQ every 2 weeks, (Reported) Entered as Reported by: RENETTA GAINES on 06/12/21 131 Biotin (Biotin) 2,500 Mcg Capsule, 2,500 MCG PO DAILY, (Reported) Entered as Reported by: RENETTA GAINES on 07/15/181410 Last Action: Last Taken Edited Cetirizine HCl (Cetirizine HCl) 10 Mg Tablet, 10 MG PO DAILY PRN for CONGESTION, (Reported) Entered as Reported by: YUNI PHILLIPS on 02/02/201533 Cholecalciferol (Vitamin D3) (Vitamin D3) Unknown Strength Capsule, 100 MCG PO DAILY, (Reported) Entered as Reported by: RENETTA GAINES on 06/12/21 131 Last Action: Last Taken Edited Cholestyramine (with Sugar) (Cholestyramine Packet) 4 Gm Powd.pack, 4 GM PO BID PRN for DIARRHEA, (Reported) Entered as Reported by: RENETTA GAINES on 07/15/181410 Cyanocobalamin (Cyanocobalamin Injection) 1,000 Mcg/Ml Inj, 1,000 MCG IM WEEK, (Reported) Entered as Reported by: RENETTA GAINES on 07/15/181410 Diazepam (Diazepam) 5 Mg Tablet, 5 MG PO BID PRN for ANXIETY, (Reported) Entered as Reported by: RENETTA GAINES on 07/15/181410 Last Action: Last Taken Edited Diphenoxylate HCl/Atropine (Lomotil 2.5-0.025 mg Tablet) 1 Each Tablet, 1 EACH PO TID PRN for DIARRHEA, (Reported) Entered as Reported by: YUNI PHILLIPS on 02/02/201533 Erenumab-Aooe (Aimovig Autoinjector) 140 Mg/1 Ml Auto.injct, 140 MG SQ MONTHLY, (Reported) Entered as Reported by: YUNI PHILLIPS on 02/02/201533 Escitalopram Oxalate (Lexapro) 10 Mg Tablet, 10 MG PO BID, (Reported) Entered as Reported by: RENETTA GAINES on 08/12/20 1150 Last Action: Last Taken Edited Estradiol (Vagifem) 10 Mcg Tablet, 10 MCG VG DAILY, (Reported) Entered as Reported by: RENETTA GAINES on 02/26/19 0927 Last Action: Last Taken Edited Ezetimibe (Ezetimibe) 10 Mg Tablet, 10 MG PO HS, (Reported) Entered as Reported by: RENETTA GAINES on 07/15/18 1411 Last Action: Last Taken Edited Folic Acid (Folic Acid) 1 Mg Tablet, 1 MG PO DAILY, (Reported) Entered as Reported by: RENETTA GAINES on 06/12/21 1313 Last Action: Last Taken Edited Hydrocodone/Acetaminophen (Hydrocodone-Acetamin 5-325 mg) 1 Each Tablet, 1 EACH PO Q6H PRN for PAIN-MODERATE (5-7), (Reported) Entered as Reported by: YUNI PHILLIPS on 02/02/20 1534 Hyoscyamine Sulfate (Hyoscyamine Sulfate ER) 0.375 Mg Tab.er.12h, 0.375 MG PO TID PRN for CRAMPS, (Reported) Entered as Reported by: RENETTA GAINES on 07/15/18 141 Metoprolol Tartrate (Metoprolol Tartrate) 25 Mg Tablet, 25 MG PO 1100,2300, (Reported) Entered as Reported by: YUNI PHILLIPS on 02/02/20 1534 Last Action: Last Taken Edited Naproxen (Naproxen) 500 Mg Tablet.dr, 500 MG PO BID PRN for PAIN-MILD, (Reported) Entered as Reported by: RENETTA GAINES on 07/15/18 1411 Roma-3/Dha/Epa/Fish Oil (Fish Oil 1,400 mg Softgel) 1 Each Capsule.dr, 2 EACH PO BID, (Reported) Entered as Reported by: RENETTA GAINES on 02/26/19 0934 Last Action: Last Taken Edited Ondansetron HCl (Ondansetron HCl) 8 Mg Tablet, 8 MG PO Q8H PRN for NAUSEA/VOMITING, (Reported) Entered as Reported by: RENETTA GAINES on 07/15/18 1411 Rizatriptan Benzoate (Maxalt) 10 Mg Tablet, 10 MG PO DAILY PRN for MIGRAINE, (Reported) Entered as Reported by: RENETTA GAINES on 07/15/18 1411 Tizanidine HCl (Tizanidine HCl) 2 Mg Tablet, 4 MG PO HS, (Reported) Entered as Reported by: RENETTA GAINES on 06/12/21 1313 Last Action: Last Taken Edited Topiramate (Topiramate) 100 Mg Tablet, 100 MG PO BID, (Reported) Entered as Reported by: RENETTA GAINES on 07/15/18 1411 Last Action: Last Taken Edited Past Ditaems-Aalvvr-Xemngs Hx Patient Social History Tobacco Use?: No Smoking Status: Never a Smoker Substance use?: No Alcohol Use?: No Pt feels they are or have been: No Immunizations Up To Date Date of Influenza Vaccine: Jun 15, 2020 First/Initial COVID19 Vaccinat: 12/28 Second COVID19 Vaccination Henrique: 01/27 Date of Pneumonia Vaccine: Feb 27, 2012 Seasonal Allergies Seasonal Allergies: Yes Current Status status: No status: No Advance Directives: Yes Advance Directive Location: Home Communicates: Verbally Primary Language: Libyan Preferred Spoken Language: Libyan Is interpretation needed?: No Past Medical History Surgeries: Abdominal, Bladder Surgery, Gallbladder, Hysterectomy, Orthopedic, Rectal Asthma Currently Using CPAP: No Currently Using BIPAP: No High Cholesterol, Hypertension Headaches /Migraines, Neuropathy Kidney Stones Chronic Constipation, Chronic Diarrhea, Irritable Bowel Degenerate Disk Disease, Arthritis, Fibromyalgia, Chronic Back Pain Diabetes, Non-Insulin dep Loss of Vision: Denies Hearing Impairment: Denies Skin Did You Recieve Any Treatments: No What Type of Treatment Did You: Surgical Intervention Blood Disorders: No Adverse Reaction/Blood Tranf: No (N/A) Physical Exam Vital Signs Vital Signs - First Documented Capillary Refill : Height, Weight, BMI Height: 5'6.00" Weight: 190lbs. 0.0oz. [id number]; 34.40 BMI Method:Stated REINALDO SAVAGE MD Jul 06, 2021 08:56
[2021-07-06] MEDS: ENOXAPARIN 30 MG/0.3 ML (LOVENOX) SYR SC SCH ×3 (09:22→19:48)
[2021-07-06] MEDS: ASPIRIN E.C. 81 MG (ECOTRIN) TAB PO SCH (09:22)
[2021-07-06] MEDS: DIAZEPAM 5 MG (VALIUM) TABLET PO SCH ×3 (09:22→19:54)
[2021-07-06] MEDS ORDERED: ACETAMINOPHEN 500 MG TAB (TYLENOL) PO PRN (09:30)
[2021-07-06] MEDS: NS IV 1000 ML 1,000 ML IV SCH ×2 (09:36→16:09)
--- NOTE | 2021-07-06 10:10 | Physical Therapy Daily Note ---
PT Daily Note-Current Subjective Patient agrees to PT. Rates right knee pain 5/10 with pain pills and TRIALS MANAGER. Pain Numeric Pain Scale: 5-Moderate Pain Location: Right Location Body Site: Knee Pain Description: Acute Mental Status Patient Orientation: Normal For Age Attachments: IV Transfers SCALE: Activities may be completed with or without assistive devices. 5-Srdrbumxyx-noiohfv completes the activity by him/herself with no assistance from a helper. 5-Set-up or Clean-up Assistance-helper sets up or cleans up; patient completes activity. [place] assists only prior to or following the activity. 4-Supervision or Touching Assistance-helper provides verbal cues and/or touching/steadying and/or contact guard assistance as patient completes activity. Assistance may be provided throughout the activity or intermittently. 3-Partial/Moderate Assistance-helper does LESS THAN HALF the effort. [place] lifts, holds or supports trunk or limbs, but provides less than half the effort. 2-Substantial/Maximal Assistance-helper does MORE THAN HALF the effort. [place] lifts or holds trunk or limbs and provides more than half the effort. 6-Nhmjvpwnu-iafbff does ALL the effort. Patient does none of the effort to complete the activity. Or, the assistance of 2 or more helpers is required for the patient to complete the activity. If activity was not attempted, code reason: 7-Patient Refused. 9-Not Applicable-not attempted and the patient did not perform the activity before the current illness, exacerbation or injury. 10-Not Attempted due to Environmental Limitations-(lack of equipment, weather restraints, etc.). 88-Not Attempted due to Medical Conditions or Safety Concerns. Lying to Sitting/Side of Bed(Q: 6 Sit to Stand (QC): 6 Chair/Nxt-rr-Frakm Xfer(QC): 6 Gait Training Does the Patient Walk?: Yes Distance: 300' Walk 10 feet (QC): 5 Walk 50 ft with 2 Turns(QC): 5 Walk 150 ft (QC): 5 Gait Assistive Device: FWW reciprocal pattern/slightly antalgic Exercises Supine Ex: Ankle pumps, Quad Set, Heel Slides, Straight leg raise Supine Reps: 15 Seated Therapy Exercises: Long arc quads Seated Reps: 15 Assessment Progressing with treatment plan and will dismiss to home 07/07/21 with home health and spouse assist. Continue to increase activity as tolerated by patient. PT Field Logistics Coordinator Goals Half-Way Goals PT Half-Way Goals Time Frame: Jul 12, 2021 Roll Left & Right (QC): 6 Sit to Lying (QC): 6 Lying-Sitting on Side/Bed(QC): 6 Sit to Stand (QC): 4 (SBA) Chair/Uso-ra-Ismrq Xfer(QC): 4 (SA) Walk 10 feet (QC): 4 (SBA) Walk 50ft with 2 Turns (QC): 4 (SBA) Walk 150 ft (QC): 4 (SBA) 1 Step (curb) (QC): 4 (CGA) 4 Steps (QC): 4 (CGA) PT Plan Treatment/Plan Treatment Plan: Continue Plan of Care Treatment Plan: Bed Mobility, Education, Functional Activity Elsy, Functional Strength, Gait, Safety, Therapeutic Exercise, Transfers Treatment Duration: Jul 12, 2021 Frequency: 11 times per week Estimated Hrs Per Day: .25 hour per day Patient and/or Family Agrees t: Yes Time/GCodes Time In: 800 Time Out: 824 Total Billed Treatment Time: 24 Total Billed Treatment 1 visit EX 11 min GT 13 min ASHOK DUKE PT Jul 06, 2021 10:10
[2021-07-06] MEDS ORDERED: ESCI20TA39 PO (10:29)
[2021-07-06] MEDS ORDERED: PANT40TA52 PO (10:29)
[2021-07-06] MEDS ORDERED: TIZA2CAP9 PO (10:29)
[2021-07-06] MEDS ORDERED: CHOL500050 PO (10:29)
[2021-07-06] MEDS ORDERED: MELO15TA39 PO (10:29)
--- NOTE | 2021-07-06 11:24 | Occupational Therapy Eval ---
OT Evaluation-General/PLF Medical Diagnosis Admission Date Jul 05, 2021 at 06:09 Medical Diagnosis: right TKA Onset Date: Jul 05, 2021 Therapy Diagnosis Therapy Diagnosis: Impaired adls Height/Weight Height (Feet): 5 Height (Inches): 6.00 Weight (Pounds): 190 Weight (Ounces): 0.0 Precautions Precautions/Isolations: Fall Prevention, Standard Precautions Weight Bear Status Weight Bearing Restriction: Weight Bearing/Tolerated Location Restriction: R LE Referral Physician: Yusef Referral Reason: Evaluation/Treatment Medical History Additional Medical History R DONY (september,), R shoulder replacement surgery x2 Current History POD#1 R TKA. Pt lives in multilevel home with spouse. She reports that all needs are met on main level. She was indep with adls/iadls prior to admission. She does have a senior housekeeper 1 day/week. She was using a cane, more when out in the community. Still drives. Owns a elocution teacher and sock aid. Reviewed History: Yes Social History Home: Multilevel Current Living Status: Spouse Entry Into Home: Stairs With Railing Steps Into Home: 3 ADL-Prior Level of Function SCALE: Activities may be completed with or without assistive devices. 5-Sflwxxnwfg-mpvzanh completes the activity by him/herself with no assistance from a helper. 5-Set-up or Clean-up Assistance-helper sets up or cleans up; patient completes activity. [place] assists only prior to or following the activity. 4-Supervision or Touching Assistance-helper provides verbal cues and/or touching/steadying and/or contact guard assistance as patient completes activity. Assistance may be provided throughout the activity or intermittently. 3-Partial/Moderate Assistance-helper does LESS THAN HALF the effort. [place] lifts, holds or supports trunk or limbs, but provides less than half the effort. 2-Substantial/Maximal Assistance-helper does MORE THAN HALF the effort. [place] lifts or holds trunk or limbs and provides more than half the effort. 5-Lxjseshfj-ihoyum does ALL the effort. Patient does none of the effort to complete the activity. Or, the assistance of 2 or more helpers is required for the patient to complete the activity. If activity was not attempted, code reason: 7-Patient Refused. 9-Not Applicable-not attempted and the patient did not perform the activity before the current illness, exacerbation or injury. 10-Not Attempted due to Environmental Limitations-(lack of equipment, weather restraints, etc.). 88-Not Attempted due to Medical Conditions or Safety Concerns. Self Care: Independent Functional Cognition: Independent DME/Equipment: Bath Chair, Grab Bars, Shower Drive Self: Yes OT Current Status Subjective Pt reports pain as 10/10 in R knee, but still agreeable to treatment. RN notified and pain meds given at therapist departure. Appearance Pt returned to supine in bed, all needs within reach. Mental Status/Objective Patient Orientation: Person, Place, Time, Situation Attachments: IV Current Hand Dominance: Right Upper Extremity ROM 3/4 AROM R shoulder (baseline), all other joints within functional limits. Upper Extremity Strength 4/5 throughout. ADL-Treatment Eating (QC): 6 (per clinical judgement) Oral Hygiene (QC): 4 Upper Body Dressing (QC): 5 (per clinical judgement) Lower Body Dressing (QC): 4 (with use of elocution teacher) On/Off Footwear (QC): 2 Pt resting in bed with CPM donned. Agreeable to treatment. Supine>sit: SBA. Assist only to remove/replace CPM machine. Sit<>stand: SBA/CGA for safety only. Pt able to ambulate to/from bathroom with CGA and use of walker. OT managing IV pole. She was able to lower/stand from toilet with CGA and cue to use grab bar. No assist needed to manage clothing over hips. Indep with tara care in sitting. Pt unable to reach feet to don/doff socks secondary to pain. She reports owning a sock aid due to having an old hip surgery. However, she vocalizes that the socks she wears are too "tiny" and they will not fit onto the sock aid. She states that her can assist if needed. Education OT Patient Education: Correct positioning, Energy conservation, Modified ADL techniques, Progress toward Goal/Update tx plan, Purpose of tx/functional activities, Reviewed precautions, Rehab process, Safety issues, Use of adapted equipment Teaching Recipient: Patient Teaching Methods: Demonstration, Discussion Response to Teaching: Verbalize Understanding, Return Demonstration, Reinforcement Needed OT Processing Associate Goals [facility] Goals Time Frame: Jul 08, 2021 Oral Hygiene (QC): 6 Toileting Hygiene (QC): 6 Shower/Bathe Self (QC): 4 Upper Body Dressing (QC): 6 1=Demonstrate adherence to instructed precautions during ADL tasks. 2=Patient will verbalize/demonstrate understanding of assistive devices /modifications for ADL. 3=Patient will improve strength/tolerance for activity to enable patient to perform ADL's. OT Education/Plan Problem List/Assessment Assessment: Impaired Funct Balance, Impaired I ADL's, Impaired Self-Care Skills Discharge Recommendations Plan/Recommendations: Continue POC Therapy Discharge Recommendati: Home & Family Treatment Plan/Plan of Care Treatment,Training & Education: Yes Patient would benefit from OT for education, treatment and training to promote independence in ADL's, mobility, safety and/or upper extremity function for ADL's. Plan of Care: ADL Retraining, Functional Mobility, UE Funct Exercise/Act Comment Anticipate 1-2 more sessions for safety, compensatory/adaptive strategies, and balance Treatment Duration: Jul 08, 2021 Frequency: 5 times per week Estimated Hrs Per Day: .25 hour per day Agreement: Yes Rehab Potential: Good Time/GCodes Start Time: 10:40 Stop Time: 11:08 Total Time Billed (hr/min): 28 Billed Treatment Time 1 visit EVL (10 min) ADL (18 min) Amie Concepcion OT Jul 06, 2021 11:24
[2021-07-06] MEDS: polyethylene glycoL POWDER 17 GM (MIRALAX) PACK PO SCH ×2 (11:49→19:48)
[2021-07-06 12:00] VITALS: BP 147/69
--- NOTE | 2021-07-06 13:32 | Physical Therapy Daily Note ---
PT Daily Note-Current Subjective Patient agrees to PT. Increase c/o right knee pain this afternoon. 04/18 with STRATEGIC PLANNING ANALYST and pain medication issued. Pain Numeric Pain Scale: 8 Location: Right Location Body Site: Knee Pain Description: Acute Mental Status Patient Orientation: Normal For Age Attachments: IV Transfers SCALE: Activities may be completed with or without assistive devices. 0-Wfgplglfcr-kgoodxu completes the activity by him/herself with no assistance from a helper. 5-Set-up or Clean-up Assistance-helper sets up or cleans up; patient completes activity. [place] assists only prior to or following the activity. 4-Supervision or Touching Assistance-helper provides verbal cues and/or touching/steadying and/or contact guard assistance as patient completes activity. Assistance may be provided throughout the activity or intermittently. 3-Partial/Moderate Assistance-helper does LESS THAN HALF the effort. [place] lifts, holds or supports trunk or limbs, but provides less than half the effort. 2-Substantial/Maximal Assistance-helper does MORE THAN HALF the effort. [place] lifts or holds trunk or limbs and provides more than half the effort. 0-Songqjeor-gmjkav does ALL the effort. Patient does none of the effort to complete the activity. Or, the assistance of 2 or more helpers is required for the patient to complete the activity. If activity was not attempted, code reason: 7-Patient Refused. 9-Not Applicable-not attempted and the patient did not perform the activity before the current illness, exacerbation or injury. 10-Not Attempted due to Environmental Limitations-(lack of equipment, weather restraints, etc.). 88-Not Attempted due to Medical Conditions or Safety Concerns. Sit to Lying (QC): 6 Lying to Sitting/Side of Bed(Q: 6 Sit to Stand (QC): 6 Toilet Transfer (QC): 6 Gait Training Does the Patient Walk?: Yes Distance: 275' Walk 10 feet (QC): 5 Walk 50 ft with 2 Turns(QC): 5 Walk 150 ft (QC): 5 Gait Assistive Device: FWW slow, reciprocal pattern, antalgic Exercises Supine Ex: Ankle pumps, Quad Set, Heel Slides, Straight leg raise Supine Reps: 15 Seated Therapy Exercises: Long arc quads Seated Reps: 15 Assessment Current Status: Excellent Progress CPM 0-[address] after session with polar pack. Patient improving with treatment plan. Continue to increase activity as tolerated by patient. PT Residential Goals Residential Goals PT Assistant Nurse Manager Goals Time Frame: Jul 12, 2021 Roll Left & Right (QC): 6 Sit to Lying (QC): 6 Lying-Sitting on Side/Bed(QC): 6 Sit to Stand (QC): 4 (SBA) Chair/Qzk-jt-Twnwl Xfer(QC): 4 (SA) Walk 10 feet (QC): 4 (SBA) Walk 50ft with 2 Turns (QC): 4 (SBA) Walk 150 ft (QC): 4 (SBA) 1 Step (curb) (QC): 4 (CGA) 4 Steps (QC): 4 (CGA) PT Plan Treatment/Plan Treatment Plan: Continue Plan of Care Treatment Plan: Bed Mobility, Education, Functional Activity Elsy, Functional Strength, Gait, Safety, Therapeutic Exercise, Transfers Treatment Duration: Jul 12, 2021 Frequency: 11 times per week Estimated Hrs Per Day: .25 hour per day Patient and/or Family Agrees t: Yes Time/GCodes Time In: 1245 Time Out: 1319 Total Billed Treatment Time: 34 Total Billed Treatment 1 visit EX 20 min GT 14 min ASHOK DUKE PT Jul 06, 2021 13:32
--- NOTE | 2021-07-06 13:50 | Anesthesia-General Post-Op ---
General Patient Condition Mental Status/LOC: Same as Preop Cardiovascular: Satisfactory Nausea/Vomiting: Absent Respiratory: Satisfactory Pain: Controlled Complications: Absent Post Op Complications Complications None Follow Up Care/Instructions Patient Instructions None needed. Anesthesia/Patient Condition Patient Condition Patient is doing well, no complaints, stable vital signs, no apparent adverse anesthesia problems. No complications reported per nursing. THEODORE TANNER CRNA Jul 06, 2021 13:50
[2021-07-06 16:04] VITALS: BP 153/72
[2021-07-06 19:48] VITALS: BP 150/67
--- NOTE | 2021-07-06 23:16 | DISCHARGE SUMMARY ---
DATE OF SERVICE: DIAGNOSES: 1. Right knee primary osteoarthritis. 2. Anxiety disorder. 3. Back pain. 4. Fibromyalgia. 5. Migraines. 6. Hypertension. 7. Osteoarthritis. 8. Diabetes. 9. Hypercholesterolemia. 10. Neuropathy. 11. Panic attacks. 12. Claustrophobia. 13. Herniated disk. 14. Raynaud's. 15. Reflex sympathetic dystrophy. PROCEDURE: Right total knee arthroplasty. SUMMARY: The patient is a 61-year-old female who underwent a right total knee arthroplasty on the day of admission. Postoperatively, she did well. At time of discharge, her wound was clean and dry. She had no calf tenderness. Negative Homans sign. She was tolerating diet well and tolerating pain with oral pain medication. CONDITION AT DISCHARGE: Good. DISCHARGE DIET: Regular. FOLLOWUP: Followup is in 3 weeks. DISCHARGE MEDICATIONS: Home medications with one aspirin per day for 30 days and Percocet as needed for pain. ACTIVITIES: Weightbearing as tolerated with a walker. Job ID: [id number] DocumentID: [id number] Dictated Date: 07/06/2021 16:41:39 Superintendent [employer] Date: 07/06/2021 23:16:13 Dictated By: ALBERTO FREIRE MD
[2021-07-07] VITALS: BP 144/70
[2021-07-07] MEDS: HYDROmorphone (DILAUDID) 4 MG TAB PO PRN ×5 (00:01→17:18)
[2021-07-07 03:46] VITALS: BP 121/75
[2021-07-07] MEDS: MULTIVIT W/MINERALS TAB (THERAGRAN M) PO SCH (04:35)
[2021-07-07] MEDS: ONDANSETRON 4 MG/2 ML (SDV) Z0FRAN IVP PRN (04:35)
[2021-07-07 06:03] LABS: HEMATOCRIT 35 % (35-52); HEMOGLOBIN 11.2 g/dL (11.5-16.0); MEAN CORPUSCULAR HEMOGLOBIN 30 pg (25-34); MEAN CORPUSCULAR HGB CONC 32 g/dL (32-36); MEAN CORPUSCULAR VOLUME 93 fL (80-99); PLATELET COUNT 170 10^3/uL (130-400)
[2021-07-07 06:15] LABS: ALBUMIN 3.7 GM/DL (3.2-4.5); POTASSIUM 3.7 MMOL/L (3.6-5.0)
[2021-07-07 06:16] LABS: CALCIUM 8.6 MG/DL (8.5-10.1)
[2021-07-07 06:18] LABS: TOTAL PROTEIN 6.3 GM/DL (6.4-8.2)
[2021-07-07 06:19] LABS: BILIRUBIN,TOTAL 0.9 MG/DL (0.1-1.0)
[2021-07-07 06:21] LABS: CREATININE SERUM 0.68 MG/DL (0.60-1.30)
--- NOTE | 2021-07-07 07:06 | Progress Note ---
Standard Progress Note Progress Notes/Assess & Plan Date Seen by a Provider: Jul 07, 2021 Time Seen by a Provider: 07:05 Progress/Assessment & Plan post op check no complaints radiographs--HW well positioned without fracture RLE--2 plus DP pulse with brisk cap refill, Intact DF and PF of toes and ankle. Sensation intact to light touch throughout s/p RTKA mobilize as able Final Diagnosis no complaints Vital Signs Date Time Temp Pulse Resp B/P (MAP) Pulse Ox O2 Delivery O2 Flow Rate FiO2 07/07/21 05:14 18 07/07/21 03:46 36.6 100 20 121/75 (90) 93 Room Air 07/07/21 00:00 36.4 99 20 144/70 (94) 95 Room Air 07/06/21 20:00 Room Air 07/06/21 19:48 37.2 97 20 150/67 (94) 91 07/06/21 18:28 18 07/06/21 16:04 37.0 96 20 153/72 (99) 93 Room Air 07/06/21 12:00 37.0 93 20 147/69 (95) 94 Room Air 07/06/21 09:35 Room Air 07/06/21 07:57 36.9 87 20 113/56 (75) 91 Room Air I & O 07/07/21 06:59 Intake Total 3401 ml Balance 3401 ml Laboratory Tests Test 07/07/21 05:41 Range/Units White Blood Count 7.0 4.3-11.0 10^3/uL Red Blood Count 3.75 L 3.80-5.11 10^6/uL Hemoglobin 11.2 L 11.5-16.0 g/dL Hematocrit 35 35-52 % Mean Corpuscular Volume 93 80-99 fL Mean Corpuscular Hemoglobin 30 25-34 pg Mean Corpuscular Hemoglobin Concent 32 32-36 g/dL Red Cell Distribution Width 13.6 10.0-14.5 % Platelet Count 170 130-400 10^3/uL Mean Platelet Volume 10.0 9.0-12.2 fL Sodium Level 136 135-145 MMOL/L Potassium Level 3.7 3.6-5.0 MMOL/L Chloride Level 104 98-107 MMOL/L Carbon Dioxide Level 22 21-32 MMOL/L Anion Gap 10 5-14 MMOL/L Blood Urea Nitrogen 4 L 7-18 MG/DL Creatinine 0.68 0.60-1.30 MG/DL Estimat Glomerular Filtration Rate 88 BUN/Creatinine Ratio 6 Glucose Level 120 H 70-105 MG/DL Calcium Level 8.6 8.5-10.1 MG/DL Corrected Calcium 8.8 8.5-10.1 MG/DL Total Bilirubin 0.9 0.1-1.0 MG/DL Aspartate Amino Transf (AST/SGOT) 30 5-34 U/L Alanine Aminotransferase (ALT/SGPT) 62 H 0-55 U/L Alkaline Phosphatase 94 40-136 U/L Total Protein 6.3 L 6.4-8.2 GM/DL Albumin 3.7 3.2-4.5 GM/DL RLE--incision clean and dry. No calf tenderness. Neg Prince's s/p RTKA doing well DC to home later today PT today ALBERTO FREIRE MD Jul 07, 2021 07:06
[2021-07-07] MEDS ORDERED: morphine INJ 4 MG/ML 1 ML (VIAL/SYRINGE) IVP PRN (07:15)
[2021-07-07 08:19] VITALS: BP 126/85
[2021-07-07] MEDS: SENNA W/DOCUSATE (SENOKOT S) TABLET PO SCH (08:42)
[2021-07-07] MEDS: ENOXAPARIN 30 MG/0.3 ML (LOVENOX) SYR SC SCH (08:42)
[2021-07-07] MEDS: DIAZEPAM 5 MG (VALIUM) TABLET PO SCH (08:42)
[2021-07-07] MEDS: ASPIRIN E.C. 81 MG (ECOTRIN) TAB PO SCH (08:42)
[2021-07-07] MEDS ORDERED: polyethylene glycoL POWDER 17 GM (MIRALAX) PACK PO SCH (09:00)
--- NOTE | 2021-07-07 10:04 | Physical Therapy Daily Note ---
PT Daily Note-Current Subjective Patient agrees to PT. Reports she will go home this afternoon. Pain Numeric Pain Scale: 7 Location: Right Location Body Site: Knee Pain Description: Acute Mental Status Patient Orientation: Normal For Age Transfers SCALE: Activities may be completed with or without assistive devices. 4-Lquyyhfiod-hioitvm completes the activity by him/herself with no assistance from a helper. 5-Set-up or Clean-up Assistance-helper sets up or cleans up; patient completes activity. [place] assists only prior to or following the activity. 4-Supervision or Touching Assistance-helper provides verbal cues and/or touching/steadying and/or contact guard assistance as patient completes activity. Assistance may be provided throughout the activity or intermittently. 3-Partial/Moderate Assistance-helper does LESS THAN HALF the effort. [place] lifts, holds or supports trunk or limbs, but provides less than half the effort. 2-Substantial/Maximal Assistance-helper does MORE THAN HALF the effort. [place] lifts or holds trunk or limbs and provides more than half the effort. 1-Dcxijdvpm-tssqsl does ALL the effort. Patient does none of the effort to complete the activity. Or, the assistance of 2 or more helpers is required for the patient to complete the activity. If activity was not attempted, code reason: 7-Patient Refused. 9-Not Applicable-not attempted and the patient did not perform the activity bef ore the current illness, exacerbation or injury. 10-Not Attempted due to Environmental Limitations-(lack of equipment, weather r estraints, etc.). 88-Not Attempted due to Medical Conditions or Safety Concerns. Lying to Sitting/Side of Bed(Q: 6 Sit to Stand (QC): 6 Chair/Jaw-og-Triwz Xfer(QC): 6 Gait Training Does the Patient Walk?: Yes Distance: 300' Walk 10 feet (QC): 6 Walk 50 ft with 2 Turns(QC): 6 Walk 150 ft (QC): 6 Walking 10ft/uneven surface-QC: 6 Gait Assistive Device: FWW steady, antalgic gait sequence Stair Training Stair Training: Handrails/: 2 handrails #of Steps: 5 1 Step (curb) (QC): 6 4 Steps (QC): 6 Stairs: Pattern: Step to Exercises Seated Therapy Exercises: Ankle pumps, Long arc quads Seated Reps: 15 (2 sets) Assessment Current Status: Excellent Progress Noted edema right knee restricting ROM. Patient does currently have adequate AROM right knee 8-75 degrees. PT educated patient on performing HEP issued by physician at preop 3/day at 15 reps. Patient voices understanding. PT Communications Specialist Goals Communications Specialist Goals PT Communications Specialist Goals Time Frame: Jul 12, 2021 Roll Left & Right (QC): 6 Sit to Lying (QC): 6 Lying-Sitting on Side/Bed(QC): 6 Sit to Stand (QC): 4 (SBA) Chair/Jfq-ce-Qlrug Xfer(QC): 4 (SA) Walk 10 feet (QC): 4 (SBA) Walk 50ft with 2 Turns (QC): 4 (SBA) Walk 150 ft (QC): 4 (SBA) 1 Step (curb) (QC): 4 (CGA) 4 Steps (QC): 4 (CGA) PT Plan Treatment/Plan Treatment Plan: Discontinue PT, goals met Treatment Plan: Bed Mobility, Education, Functional Activity Elsy, Functional Strength, Gait, Safety, Therapeutic Exercise, Transfers Treatment Duration: Jul 12, 2021 Frequency: 11 times per week Estimated Hrs Per Day: .25 hour per day Patient and/or Family Agrees t: Yes Time/GCodes Time In: 810 Time Out: 827 Total Billed Treatment Time: 17 Total Billed Treatment 1 visit FA 17 min ASHOK DUKE PT Jul 07, 2021 10:04
--- NOTE | 2021-07-07 11:22 | Occupational Ther Daily Note ---
OT Current Status-Daily Note Subjective Pt reports pain as 9/10, appears to have high pain tolerance. Appearance Pt sitting on shower chair with ROLL WEIGHER present at OT departure. Mental Status/Objective Patient Orientation: Person, Place, Time, Situation Attachments: IV ADL-Treatment Therapy Code Descriptions/Definitions Functional Dixon Measure: 0=Not Assessed/NA 4=Minimal Assistance 1=Total Assistance 5=Supervision or Setup 2=Maximal Assistance 6=Modified Dixon 3=Moderate Assistance 7=Complete IndependenceSCALE: Activities may be completed with or without assistive devices. 2-Ymsnnsukgy-qoxuxld completes the activity by him/herself with no assistance from a helper. 5-Set-up or Clean-up Assistance-helper sets up or cleans up; patient completes activity. [place] assists only prior to or following the activity. 4-Supervision or Touching Assistance-helper provides verbal cues and/or touching/steadying and/or contact guard assistance as patient completes activity. Assistance may be provided throughout the activity or intermittently. 3-Partial/Moderate Assistance-helper does LESS THAN HALF the effort. [place] lifts, holds or supports trunk or limbs, but provides less than half the effort. 2-Substantial/Maximal Assistance-helper does MORE THAN HALF the effort. [place] lifts or holds trunk or limbs and provides more than half the effort. 7-Ouicobjfz-umawyt does ALL the effort. Patient does none of the effort to complete the activity. Or, the assistance of 2 or more helpers is required for the patient to complete the activity. If activity was not attempted, code reason: 7-Patient Refused. 9-Not Applicable-not attempted and the patient did not perform the activity before the current illness, exacerbation or injury. 10-Not Attempted due to Environmental Limitations-(lack of equipment, weather restraints, etc.). 88-Not Attempted due to Medical Conditions or Safety Concerns. Oral Hygiene (QC): 6 Toileting Hygiene (QC): 6 Toilet Transfer (QC): 4 Pt resting in bed at OT arrival, agreeable to treatment. Supine>sit: Mod I, extra time but no assist/cues required. She reports that the ROLL WEIGHER was going to come in shortly to assist her with bathing. She stood from the bed and ambulated within the room with SBA. She retrieved clothes from closet, no assist or cues required. Extra time and one cue to utilize grab bar when lowering to toilet, but no physical assist provided. Indep with tara care in sitting. She stood to manage clothing up to waist, no unsteadiness or difficulty exhibited. She transferred to shower bench with SBA, assist to remove Morgan tory hose/socks. ROLL WEIGHER in room to assist with shower, OT discussed covering incision. ROLL WEIGHER in agreement. Pt reports discharging home later today. Education/discussion provided on home DME and energy conservation. Pt reports purchasing a toilet riser. Education OT Patient Education: Correct positioning, Energy conservation, Modified ADL techniques, Progress toward Goal/Update tx plan, Purpose of tx/functional activities, Reviewed precautions, Rehab process Teaching Recipient: Patient Teaching Methods: Demonstration, Discussion Response to Teaching: Verbalize Understanding, Return Demonstration OT Data Processing Control Clerk Goals Data Processing Control Clerk Goals Time Frame: Jul 08, 2021 Oral Hygiene (QC): 6 Toileting Hygiene (QC): 6 Shower/Bathe Self (QC): 4 Upper Body Dressing (QC): 6 1=Demonstrate adherence to instructed precautions during ADL tasks. 2=Patient will verbalize/demonstrate understanding of assistive devices/modifications for ADL. 3=Patient will improve strength/tolerance for activity to enable patient to perform ADL's. OT Education/Plan Problem List/Assessment Assessment: Impaired I ADL's, Impaired Self-Care Skills Discharge Recommendations Plan/Recommendations: Continue POC Treatment Plan/Plan of Care Treatment,Training & Education: Yes Patient would benefit from OT for education, treatment and training to promote independence in ADL's, mobility, safety and/or upper extremity function for ADL's. Plan of Care: ADL Retraining, Functional Mobility, UE Funct Exercise/Act Treatment Duration: Jul 08, 2021 Frequency: 5 times per week Estimated Hrs Per Day: .25 hour per day Agreement: Yes Rehab Potential: Good Time/GCodes Start Time: 10:38 Stop Time: 10:58 Total Time Billed (hr/min): 20 Billed Treatment Time 1 visit ADL Amie Concepcion OT Jul 07, 2021 11:22
[2021-07-07 12:00] VITALS: BP 135/62
--- NOTE | 2021-07-07 13:58 | Physical Therapy Daily Note ---
PT Daily Note-Current Subjective Patient agrees to PT. Mental Status Patient Orientation: Normal For Age Attachments: Polar Pack Transfers SCALE: Activities may be completed with or without assistive devices. 7-Poqewrorwh-eeiaxfz completes the activity by him/herself with no assistance from a helper. 5-Set-up or Clean-up Assistance-helper sets up or cleans up; patient completes activity. [place] assists only prior to or following the activity. 4-Supervision or Touching Assistance-helper provides verbal cues and/or touching/steadying and/or contact guard assistance as patient completes activity. Assistance may be provided throughout the activity or intermittently. 3-Partial/Moderate Assistance-helper does LESS THAN HALF the effort. [place] lifts, holds or supports trunk or limbs, but provides less than half the effort. 2-Substantial/Maximal Assistance-helper does MORE THAN HALF the effort. [place] lifts or holds trunk or limbs and provides more than half the effort. 8-Acovraihs-mjxccd does ALL the effort. Patient does none of the effort to complete the activity. Or, the assistance of 2 or more helpers is required for the patient to complete the activity. If activity was not attempted, code reason: 7-Patient Refused. 9-Not Applicable-not attempted and the patient did not perform the activity before the current illness, exacerbation or injury. 10-Not Attempted due to Environmental Limitations-(lack of equipment, weather restraints, etc.). 88-Not Attempted due to Medical Conditions or Safety Concerns. Sit to Lying (QC): 6 Lying to Sitting/Side of Bed(Q: 6 Sit to Stand (QC): 6 Gait Training Distance: 325' Walk 10 feet (QC): 6 Walk 50 ft with 2 Turns(QC): 6 Walk 150 ft (QC): 6 Gait Assistive Device: FWW slow, antalgic Exercises Supine Ex: Ankle pumps, Quad Set, Heel Slides Supine Reps: 15 Seated Therapy Exercises: Long arc quads Seated Reps: 12 Assessment Current Status: Excellent Progress Patient does appear to self limit right knee flexion due to pain and edema. Encouraged patient to work through the pain to improve strength and mobility/ROM. PT Longterm Goals Longterm Goals PT Longterm Goals Time Frame: Jul 12, 2021 Roll Left & Right (QC): 6 Sit to Lying (QC): 6 Lying-Sitting on Side/Bed(QC): 6 Sit to Stand (QC): 4 (SBA) Chair/Rgl-cd-Ajynt Xfer(QC): 4 (SA) Walk 10 feet (QC): 4 (SBA) Walk 50ft with 2 Turns (QC): 4 (SBA) Walk 150 ft (QC): 4 (SBA) 1 Step (curb) (QC): 4 (CGA) 4 Steps (QC): 4 (CGA) PT Plan Treatment/Plan Treatment Plan: Discontinue PT, goals met Treatment Plan: Bed Mobility, Education, Functional Activity Elsy, Functional Strength, Gait, Safety, Therapeutic Exercise, Transfers Treatment Duration: Jul 12, 2021 Frequency: 11 times per week Estimated Hrs Per Day: .25 hour per day Patient and/or Family Agrees t: Yes Time/GCodes Time In: 1325 Time Out: 1343 Total Billed Treatment Time: 18 Total Billed Treatment 1 visit FA 18 min ASHOK DUKE PT Jul 07, 2021 13:58
[2021-07-07 16:00] VITALS: BP 136/64
[2021-07-07 18:38] VITALS: BP 136/64
== END 2021-07-07 18:42 | disposition home health service (06) | DRG 470 ==
LOC: 4TH 06:09 → SURG 06:10 → 4TH 10:00
PROVIDERS: ADMIT Orthopaedic Surgery; ATTEND Orthopaedic Surgery
PROC: 0SRC0J9 Replacement of Right Knee Joint with Synthetic Substitute, Cemented, Open Approach (ICD-10-PCS; principal; 2021-07-05 07:33)
DX: M17.11 Unilateral primary osteoarthritis, right knee (principal); G90.50 Complex regional pain syndrome I, unspecified; M54.9 Dorsalgia, unspecified; M79.7 Fibromyalgia; G43.909 Migraine, unspecified, not intractable, without status migrainosus; I10 Essential (primary) hypertension; E78.00 Pure hypercholesterolemia, unspecified; E11.40 Type 2 diabetes mellitus with diabetic neuropathy, unspecified; F41.0 Panic disorder [episodic paroxysmal anxiety]; I73.00 Raynaud's syndrome without gangrene; F40.240 Claustrophobia
CPT/HCPCS: 36415; 73560; 80053; 85014; 85018; 85027; 86850; 86900; 86901

== ENCOUNTER → 2021-09-25 | Outpatient (CLI) | payer OTHER, MEDICARE ==
[~2021-09-25] MED LIST changes: +ESCI20TA39 PO; +MELO15TA39 PO; +ONDA-106 PO; -ONDA8TAB15 PO; +PANT40TA52 PO; +TIZA2CAP9 PO
--- NOTE | 2021-09-25 16:07 | Diagnostic Imaging Report ---
INDICATION: Cough and chest pain PA and lateral views of the chest are obtained with comparison made to study of 06/12/2021 Heart size and pulmonary vascularity are at the upper limits of normal. No pneumothorax or consolidation is identified. There is no significant pleural fluid. Mild thoracic spondylosis is noted. IMPRESSION: Heart size and pulmonary vascularity are at the upper limits normal without evidence of acute abnormality or significant change. Dictated by: Dictated on workstation # [id number]
== END ==
LOC: RAD 15:11
PROVIDERS: ATTEND Nurse Practitioner Family
DX: R05.9 Cough, unspecified (principal); R07.89 Other chest pain
CPT/HCPCS: 71046

== ENCOUNTER → 2021-09-28 | Outpatient (CLI) | payer OTHER, MEDICARE ==
--- NOTE | 2021-09-29 08:57 | Diagnostic Imaging Report ---
INDICATION: Routine screening. COMPARISON is made with prior mammograms of 08/24/2020 and 09/07/2019. 2-D and 3-D bilateral screening mammography was performed with CAD. Scattered fibroglandular densities are identified bilaterally. Oil cysts in both breasts are again noted. There are benign calcifications in both breasts. No spiculated mass or malignant-appearing microcalcifications are seen. Axillae are unremarkable. IMPRESSION: BI-RADS Category 2 No mammographic features suspicious for malignancy are identified. ACR BI-RADS Category 2: Benign findings. Result letter will be mailed to the patient. Note: At least 10% of breast cancer is not imaged by mammography. Dictated by: Dictated on workstation # [id number]
== END ==
LOC: RAD 14:45
PROVIDERS: ATTEND Obstetrics & Gynecology
DX: Z12.31 Encounter for screening mammogram for malignant neoplasm of breast (principal)
CPT/HCPCS: 77063; 77067

== ENCOUNTER → 2021-11-21 | Outpatient (CLI) | payer OTHER, MEDICARE ==
--- NOTE | 2021-11-21 17:48 | Diagnostic Imaging Report ---
PROCEDURE: US Thyroid. TECHNIQUE: Multiple real-time grayscale images were obtained of the thyroid in various projections. INDICATION: Thyroid nodules. COMPARISON: Exam is compared to 01/13/2021. FINDINGS: Right thyroid lobe measured 4.7 x 1.1 x 1.4 cm, unchanged. There is a 5 mm hyperechoic nodule in its lower pole, previously measuring 6 mm, not significantly changed. There are subcentimeter left lobe nodules, not significantly changed in size from prior. An anechoic cyst measuring 5 mm in its upper pole is present, and there are 5 mm hyperechoic nodules in the mid to lower pole, unchanged. IMPRESSION: Benign-appearing hyperechoic subcentimeter thyroid nodules as well as a left 5 mm cyst, stable. No new or suspicious mass. These are TI-RADS 3 lesions and given their size require no further dedicated workup assuming clinical stability. Dictated by: Dictated on workstation # [id number]
== END ==
LOC: RAD 13:45
PROVIDERS: ATTEND Nurse Practitioner Family
DX: E04.1 Nontoxic single thyroid nodule (principal)
CPT/HCPCS: 76536

== ENCOUNTER → 2022-01-18 | Outpatient (CLI) | payer OTHER, MEDICARE ==
[~2022-01-18] MED LIST changes: +CHOL4PAC14 PO; -HYOS0.3710 PO; +HYOS0.3738 PO
--- NOTE | 2022-01-18 15:09 | Diagnostic Imaging Report ---
INDICATION: HEMATURIA COMPARISON: 04/21/2019 FINDINGS: Single supine radiographic view of the abdomen was obtained and demonstrates nondistended loops of small bowel. There is no large collection of free peritoneal air. Mild air and stool are seen scattered throughout the colon. No unexpected extraosseous calcifications or radiopaque foreign bodies are seen. Bony structures show no gross acute abnormalities. IMPRESSION: 1. Nonobstructed small bowel gas pattern. Dictated by: Dictated on workstation # [id number]
--- NOTE | 2022-01-18 16:03 | Diagnostic Imaging Report ---
EXAMINATION: CT abdomen and pelvis without contrast, 01/18/2022. TECHNIQUE: Multiple contiguous axial images were obtained through the abdomen and pelvis without the use of intravenous contrast. Auto Exposure Controls were utilized during the CT exam to meet ALARA standards for radiation dose reduction. INDICATION: Bilateral flank pain, hematuria. History of renal stones. History of bladder sling and hysterectomy. COMPARISON: 04/21/2019. FINDINGS: The lung bases appear clear. The nonopacified abdominal viscera are limited given the lack of contrast. No gross acute abnormality appreciated within the liver or spleen. There is evidence of previous cholecystectomy. The pancreas and adrenal glands appear unremarkable. There are multiple punctate nonobstructive stones within the kidneys. There is no hydronephrosis. The visualized right ureter demonstrates no stones. Portions of the right ureter within the pelvis are obscured by streak artifact from postoperative change in the right hip. There are no stones in the left ureter. The appendix appears unremarkable. There is a linear hyperdensity within the cecum, nonspecific, consistent with a recently swallowed pill or other foreign body. Correlate clinically. There is diverticular disease within the sigmoid colon with no evidence for acute diverticulitis. There are findings of mild constipation within the right colon and transverse colon. A small fat-containing umbilical hernia incidentally noted. There is no ascites or free air. Urinary bladder is poorly characterized as it is decompressed, and there is streak artifact throughout the pelvis. Mild atherosclerotic disease is noted. There is no acute osseous abnormality. Postoperative changes noted in the right hip. IMPRESSION: 1. Nonobstructive stones in both kidneys with no hydronephrosis and no ureteral stones. The distal right ureter is not seen due to streak artifact from the right hip prosthesis. 2. Diverticulosis without evidence for acute diverticulitis. 3. Nonspecific hyperdensity within the cecum as described above. Dictated by: Dictated on workstation # [id number]
== END ==
LOC: RAD 14:45
PROVIDERS: ATTEND Urology
DX: N20.0 Calculus of kidney (principal); K57.30 Diverticulosis of large intestine without perforation or abscess without bleeding
CPT/HCPCS: 74018; 74176

== ENCOUNTER → 2022-04-10 | Outpatient (CLI) | payer OTHER, MEDICARE ==
[~2022-04-10] MED LIST changes: -CHOL4PAC14 PO; +CHOL4POW4 PO
== END ==
LOC: CARD 14:00
PROVIDERS: ATTEND Physician Assistant
DX: I11.9 Hypertensive heart disease without heart failure (principal); I34.0 Nonrheumatic mitral (valve) insufficiency
CPT/HCPCS: 93306

== ENCOUNTER 2022-04-24 10:32 | Outpatient (CLI) | payer OTHER, MEDICARE ==
[~2022-04-24] VITALS: Ht 167.7 cm; Wt 95.5 kg
[~2022-04-24 10:32] MED LIST changes: -DICL20GE TP; -NITR1OIN TD; -PHEN-640 PO
[2022-04-24] MEDS ORDERED: ESTR10TA VG (15:24)
[2022-04-24] MEDS ORDERED: NITR1OIN TD (15:24)
[2022-04-24] MEDS ORDERED: AMLO10TA4 PO (15:24)
[2022-04-24] MEDS ORDERED: ESCI10TA PO (15:24)
[2022-04-24] MEDS ORDERED: DICL20GE TP (15:24)
[2022-04-25] MEDS ORDERED: SULF1TAB38 PO (09:45)
[2022-04-25] MEDS ORDERED: PHEN-640 PO (09:45)
== END 2022-04-24 16:01 ==
LOC: PREOP 10:32
PROVIDERS: ATTEND Urology
DX: Z01.818 Encounter for other preprocedural examination (principal)

== ENCOUNTER → 2022-04-24 | Outpatient (CLI) | payer OTHER, MEDICARE ==
[~2022-04-24] MED LIST changes: +DICL20GE TP; +NITR1OIN TD; +PHEN-640 PO
--- NOTE | 2022-04-24 14:53 | Diagnostic Imaging Report ---
EXAMINATION: Chest 2 view HISTORY: COUGH-H/O PNEUMONIA COMPARISON: 09/25/2021 FINDINGS: Heart size and pulmonary vasculature are normal. The lungs are clear without consolidation, pleural effusion, or pneumothorax. Degenerative changes of the thoracic spine. Osseous structures are otherwise intact. IMPRESSION: 1. No acute radiographic abnormality in the chest. Dictated by: Dictated on workstation # [id number]
== END ==
LOC: RAD 13:29
PROVIDERS: ATTEND Urology
DX: R05.9 Cough, unspecified (principal); Z87.01 Personal history of pneumonia (recurrent)
CPT/HCPCS: 71046

== ENCOUNTER 2022-04-25 07:19 | Day surgery (SDC) | payer OTHER, MEDICARE ==
[2022-04-25] VITALS (8 sets, daily range): BP systolic 83–138; BP diastolic 48–104
[~2022-04-25] VITALS: Ht 167 cm; Wt 95.5 kg
[~2022-04-25 07:19] MED LIST changes: +DICL20GE TP; +NITR1OIN TD
[2022-04-25] MEDS ORDERED: ONABOTULINUMTOXINA 100 UNIT (BOTOX) VIAL INJ ONE (07:30)
--- NOTE | 2022-04-25 07:32 | Progress Note-Pre Operative ---
Pre-Operative Progress Note Date of Available H&P: Apr 25, 2022 Date H&P Reviewed: Apr 25, 2022 Time H&P Reviewed: 07:32 Changes from last HP NONE Pre-Operative Diagnosis: SEVERE URGENCY INCONTINENCE AND OAB MARCELO LANTIGUA MD Apr 25, 2022 07:32
--- NOTE | 2022-04-25 07:40 | Progress Note-Post Operative ---
Post-Operative Progess Note Surgeon (s)/Production Manager (s) Surgeon MARCELO LANTIGUA MD Production Manager: NONE Pre-Operative Diagnosis SEVERE URGENCY INCONTINENCE AND OAB Post-Operative Diagnosis SAME Procedure & Operative Findings Date of Procedure 04/25/22 Procedure Performed/Findings ENDOSCOPIC BOTOX INJECTIONS Anesthesia Type GENERAL Estimated Blood Loss Estimated blood loss (mL): NONE Specimens/Packing Specimens Removed NONE Packing: NONE MARCELO LANTIGUA MD Apr 25, 2022 07:40
--- NOTE | 2022-04-25 07:42 | Discharge Inst-Urology ---
Discharge Inst-Urology Reconcile Patient Problems Problems Reviewed?: Yes Final Diagnosis OAB WITH SEVERE URGENCY INCONTINENCE Patient Instructions/Follow Up Plan/Assessment/Instructions Please make appointment to been seen in office in 4 weeks. Keep bowels soft and moving Increase oral fluids for 48 hours and then as needed. Diet and Activity as tolerated. If questions or concerns contact your physician Or seek help at emergency department. MARCELO LANTIGUA MD Apr 25, 2022 07:42
[2022-04-25] MEDS ORDERED: LACTATED RINGERS 1,000 ML IV PRN (07:45)
[2022-04-25] MEDS ORDERED: MIDAZOLAM 2 MG/2 ML (VERSED) VIAL IV ONE (07:45)
[2022-04-25] MEDS ORDERED: cefTRIAXone 1 GM PRE-MIX 50 ML IV ONE (07:49)
[2022-04-25] MEDS ORDERED: MIDAZOLAM 2 MG/2 ML (VERSED) VIAL ONE ×2 (08:21→09:06)
[2022-04-25] MEDS ORDERED: MIDAZOLAM 2 MG/2 ML (VERSED) VIAL IM ONE (08:30)
[2022-04-25] MEDS ORDERED: 0.9% SODIUM CHLORIDE PF INJ 20 ML VIAL ONE (08:39)
[2022-04-25] MEDS ORDERED: proPOfol 200 MG/20 ML (DIPRIVAN) VIAL IV ONE (09:06)
[2022-04-25] MEDS ORDERED: ONDANSETRON 4 MG/2 ML (SDV) Z0FRAN ONE (09:06)
[2022-04-25] MEDS ORDERED: LIDOCAINE PF 2% 5 ML (XYLOCAINE) VIAL ONE (09:06)
[2022-04-25] MEDS ORDERED: fentaNYL INJ 100 MCG/2 ML AMP ONE (09:06)
[2022-04-25] MEDS ORDERED: MIDAZOLAM 2 MG/2 ML (VERSED) VIAL IVP ONE (09:15)
[2022-04-25] MEDS ORDERED: SEVOFLURANE (ULTANE) 15 ML INHAL SOLN ONE (09:40)
[2022-04-25] MEDS ORDERED: PHEN-640 PO (09:45)
[2022-04-25] MEDS ORDERED: SULF1TAB38 PO (09:45)
[2022-04-25] MEDS ORDERED: morphine INJ 10 MG/ML 1ML (SYR OR VIAL) IVP ONE (10:00)
[2022-04-25] MEDS ORDERED: ONDANSETRON 4 MG/2 ML (SDV) Z0FRAN IVP PRN (10:00)
--- NOTE | 2022-04-25 11:44 | Anesthesia-General Post-Op ---
General Patient Condition Mental Status/LOC: Same as Preop Cardiovascular: Satisfactory Nausea/Vomiting: Absent Respiratory: Satisfactory Pain: Controlled Complications: Absent Post Op Complications Complications None Follow Up Care/Instructions Patient Instructions None needed. Anesthesia/Patient Condition Patient Condition Patient is doing well, no complaints, stable vital signs, no apparent adverse anesthesia problems. No complications reported per nursing. KENDELL PALACIOS CRNA Apr 25, 2022 11:44
--- NOTE | 2022-04-25 18:28 | OPERATIVE REPORT ---
DATE OF SERVICE: 04/25/2022 PREOPERATIVE DIAGNOSIS: Overactive bladder with severe urgency and incontinence. POSTOPERATIVE DIAGNOSIS: Overactive bladder with severe urgency and incontinence. OPERATION PERFORMED: Endoscopic Botox injections. SURGEON: Jere Lantigua MD ANESTHESIA: General. COMPLICATIONS: None. DESCRIPTION OF PROCEDURE: Under satisfactory general anesthesia, the patient in lithotomy position, genitalia were prepped and draped in the usual sterile fashion. Urethra was dilated with sounds to accommodate a 23-Bangladeshi cystoscope. Injection of the Botox was performed in 20 spots, 0.5 mL each starting above and lateral to the left ureteral orifice and working the way to the right side and back and forth. A total of 100 units was injected. There was minimal to none bleeding. I left the bladder half full, removed the cystoscope, performed a manual Valsalva maneuver that was negative. I reinserted the scope to empty the bladder. The patient tolerated the procedure and anesthesia well and was sent to recovery room in stable condition. Job ID: [id number] DocumentID: [id number] Dictated Date: 04/25/2022 11:14:40 Inventory Representative Date: 04/25/2022 18:27:40 Dictated By: JERE LANTIGUA MD
== END 2022-04-25 11:10 | disposition home or self-care (01) ==
LOC: SDC 07:19
PROVIDERS: ATTEND Urology
DX: N32.81 Overactive bladder (principal); N39.41 Urge incontinence
CPT/HCPCS: 87081

== ENCOUNTER → 2022-05-30 | Outpatient (CLI) | payer OTHER, MEDICARE ==
[~2022-05-30] MED LIST changes: +PHEN-640 PO
--- NOTE | 2022-05-30 13:55 | Diagnostic Imaging Report ---
INDICATION: Bilateral breast pain and bilateral breast lumps. COMPARISON: 09/28/2021 and 08/24/2020. TECHNIQUE: 2D and 3D bilateral diagnostic mammography was performed with CAD. FINDINGS: Scattered fibroglandular densities are noted bilaterally. There are benign calcifications bilaterally. There are areas of fat necrosis with oil cysts in the bilateral breasts, stable. No spiculated mass or malignant-appearing microcalcifications are seen. The axillae are unremarkable. IMPRESSION: No mammographic features suspicious for malignancy are identified. Even so, sonographic interrogation of the areas of pain and lumps in the bilateral breast is recommended and will be performed today. ACR BI-RADS Category 0: Incomplete. (Needs additional imaging evaluation). Result letter will be mailed to the patient. Note: At least 10% of breast cancer is not imaged by mammography. Dictated by: Dictated on workstation # [id number]
--- NOTE | 2022-05-30 14:21 | Diagnostic Imaging Report ---
INDICATION: Bilateral breast pain and bilateral breast lumps. COMPARISON: Correlation is made with the diagnostic mammogram from earlier earlier this same day. FINDINGS: Sonographic interrogation of the areas of pain and lumps was performed bilaterally. This corresponds to the lateral and inferior portions of both breasts. No sonographic abnormality is seen within either breast. No solid or cystic mass is detected. IMPRESSION: No sonographic abnormality is identified. ACR BI-RADS Category 1: Negative. Dictated by: Dictated on workstation # [id number]
== END ==
LOC: RAD 13:08
PROVIDERS: ATTEND Family Medicine
DX: N63.10 Unspecified lump in the right breast, unspecified quadrant (principal); N63.20 Unspecified lump in the left breast, unspecified quadrant
CPT/HCPCS: 76642; 77066; G0279; 77062

== ENCOUNTER → 2022-08-22 | Outpatient (CLI) | payer OTHER, MEDICARE ==
[~2022-08-22] MED LIST changes: -ALIR150P3 SQ; +ALIR150P6 SQ; +CATHETER FLUSH 10 ML SYR IVP PRN; +REGADENOSON 0.4 MG/5 ML SYR (LEXISCAN) IV ONE; +RIZA-1 PO
[2022-08-22 14:03] VITALS: BP 145/83
--- NOTE | 2022-08-22 17:50 | Cardiology Stress Test Report ---
Stress Test Report Date of Procedure/Referring: Date of Procedure: Aug 22, 2022 PCP Reinaldo Ledesma MD Admitting Physician Admitting Physician: Attending Physician: Lisa Palacios Baseline Heart Rate: 67 Baseline Blood Pressure: Blood Pressure Systolic: 145 Blood Pressure Diastolic: 83 Baseline Vitals Vital Signs Date Time Temp Pulse Resp B/P (MAP) Pulse Ox O2 Delivery O2 Flow Rate FiO2 08/22/22 14:03 67 145/83 (103) Baseline EKG: Baseline EKG: NSR Summary After explaining the procedure to the patient, she signed a consent and then brought to the stress nuclear laboratory. Patient received 0.4 mg Lexiscan for stress test, ECG, heart rate and blood pressure were monitored continuously. Resting and stress dose of radio tracer were injected, imaging was acquired and reviewed in short axis, horizontal long axis and vertical long axis views. TID: 1.05 SSS: 3 SDS: 3 EF: 75 1. Patient tolerated Lexiscan well 2. Typical female pattern with no significant ischemia or infarction on SPECT images 3. Normal left ventricular size, ejection fraction 75% Copy Copies To 1: REINALDO LEDESMA MD, BASHAR J MD Aug 22, 2022 17:50
== END ==
LOC: CARD 12:10
PROVIDERS: ATTEND Physician Assistant
DX: R07.89 Other chest pain (principal)
CPT/HCPCS: 78452; 93017; A9502

== ENCOUNTER 2023-02-14 22:26 | Emergency (ER) | payer MEDICARE, OTHER ==
[~2023-02-14] VITALS: Ht 167 cm; Wt 90.0 kg
[~2023-02-14 22:26] MED LIST changes: -CATHETER FLUSH 10 ML SYR IVP PRN; -REGADENOSON 0.4 MG/5 ML SYR (LEXISCAN) IV ONE
--- NOTE | 2023-02-14 22:44 | ED General ---
General Chief Complaint: Glucose Problems Stated Complaint: BLOOD SUGAR AND BLOOD PRESSURE ISSUES/DIZZY Nursing Triage Note: Pt stated having problems with blood sugar and b/p. Pt stated feeling weak, light head, dizzy x 4-5months. Pt had a fall last month another one x 1 week ago. Pt stated tonight around 1800hrs felt dizzy, light head, and stated "everything went black", but denies LOC. Pt has IBS, but has new onset of diarhea. Source of Information: Patient History of Present Illness Date Seen by Provider: Feb 14, 2023 Initial Comments ATE AROUND 11 AM TODAY--A LITTLE BIT OF EGGS AND A BIG BAGEL. THIS AFTERNOON SHE WENT TO THE MOVIES AND ATE A BUNCH OF POPCORN AND A BUNCH OF CANDY TONIGHT WHEN SHE BEGAN TO FEEL DIZZY, SHE DRANK A REGULAR DR. PEPPER AND A BIG GLASS OF ORANGE JUICE, AND THEN ATE A BUNCH OF COOKIES. BLOOD SUGAR ONLY WENT UP TO 90, SO SHE TOOK SOME GLUCAGON FROM HER COUSIN, AND THEN IT WENT UP TO 200 , THEN STARTED DROPPING AGAIN, DOWN TO THE 80'S, SO SHE CAME HERE. Allergies and Home Medications Allergies Coded Allergies: cefuroxime (Verified Allergy, Severe, NAUSEA/DIFF BREATHING/BRUISING, 04/24/22) levofloxacin (Verified Allergy, Severe, HIVES, SHORTNESS OF BREATH, HAND SWELLS, 04/24/22) nitrofurantoin (Verified Allergy, Severe, HIVES, SHORTNESS OF BREATH, ITCHING, 04/24/22) duloxetine (Verified Allergy, Intermediate, TROUBLE BREATHING, HEART RACED, PANIC ATTACH, 04/24/22) gluten (Verified Allergy, Mild, 04/24/22) levomefolate calcium (Verified Allergy, Mild, NAUSEA, WEIGHT GAIN, 04/24/22) mecobalamin (Verified Allergy, Mild, NAUSEA, WEIGHT GAIN, 04/24/22) oxycodone (Verified Allergy, Mild, ITCHING, INSOMNIA, pt has rec Dilaudid & Lortab, 04/24/22) prednisone (Verified Allergy, Mild, 04/24/22) ITCING pyridoxal phosphate (Verified Allergy, Mild, NAUSEA, WEIGHT GAIN, 04/24/22) tramadol (Verified Allergy, Mild, HIVES, ITCHING, 04/24/22) atorvastatin (Verified Allergy, Unknown, joint pain, 04/24/22) doxycycline (Verified Allergy, Unknown, 04/24/22) levothyroxine sodium (Verified Allergy, Unknown, mood swings, 04/24/22) nut - unspecified (Verified Allergy, Unknown, 04/24/22) rosuvastatin (Verified Allergy, Unknown, joint pain, 04/24/22) gabapentin (Verified Adverse Reaction, Intermediate, SICK FEELING, HEART RACED, 04/24/22) milnacipran (Verified Adverse Reaction, Intermediate, NAUSEA, MIGRAINES, 04/24/22) Uncoded Allergies: dissolvable stitches (Allergy, Unknown, 09/25/16) Patient Home Medication List Albuterol/Ipratropium (Combivent Respimat Inhal [place]) 4 Gm Aero, 2 PUFF IH QID PRN for SHORTNESS OF BREATH, (Reported) Entered as Reported by: YUNI PHILLIPS on 02/02/20 1534 Alirocumab (Praluent Pen) 75 Mg/1 Ml Pen.injctr, 75 MG SQ EVERY 2 WEEKS, (Reported) Entered as Reported by: YUNI PHILLIPS on 02/02/20 1534 Amlodipine Besylate (Norvasc) 10 Mg Tablet, 10 MG PO DAILY, (Reported) Entered as Reported by: BRADY DOTY on 04/24/22 1524 Biotin (Biotin) 2,500 Mcg Capsule, 2,500 MCG PO DAILY, (Reported) Entered as Reported by: RENETTA GAINES on 07/15/18 1411 Cetirizine HCl (Cetirizine HCl) 10 Mg Tablet, 10 MG PO DAILY, (Reported) Entered as Reported by: YUNI PHILLIPS on 02/02/20 1534 Cholecalciferol (Vitamin D3) (Vitamin D3) 125 Mcg Capsule, 125 MCG PO 1100, (Reported) Entered as Reported by: KIKI ECHEVARRIA on 07/06/21 1029 Cholestyramine (with Sugar) (Cholestyramine Packet) 4 Gm Powd.pack, 4 GM PO BID PRN for DIARRHEA, (Reported) Entered as Reported by: RENETTA GAINES on 07/15/18 1411 Cyanocobalamin (Cyanocobalamin Injection) 1,000 Mcg/Ml Inj, 1,000 MCG IM FRI, (Reported) Entered as Reported by: RENETTA GAINES on 07/15/18 141 Diazepam (Diazepam) 5 Mg Tablet, 5 MG PO BID PRN for ANXIETY, (Reported) Entered as Reported by: RENETTA GAINES on 07/15/18 141 Diclofenac Sodium (Voltaren Arthritis Pain) 1 % Gel..gram., 20 GM TP, (Reported) Entered as Reported by: BRADY DOTY on 04/24/22 152 Diphenoxylate HCl/Atropine (Lomotil 2.5-0.025 mg Tablet) 1 Each Tablet, 1 EACH PO TID PRN for DIARRHEA, (Reported) Entered as Reported by: YUNI PHILLIPS on 02/02/20 153 Erenumab-Aooe (Aimovig Autoinjector) 140 Mg/1 Ml Auto.injct, 140 MG SQ MONTHLY, (Reported) Entered as Reported by: YUNI PHILLIPS on 02/02/20 153 Escitalopram Oxalate (Escitalopram Oxalate) 20 Mg Tablet, 10 MG PO 1100,2300, (Reported) Entered as Reported by: KIKI ECHEVARRIA on 07/06/21 1029 Escitalopram Oxalate (Lexapro) 10 Mg Tablet, 10 MG PO, (Reported) Entered as Reported by: BRADY DOTY on 04/24/22 152 Estradiol (Vagifem) 10 Mcg Tablet, 10 MCG VG TWICE WEEKLY, (Reported) Entered as Reported by: RENETTA GAINES on 02/26/19 0927 Estradiol (Vagifem) 10 Mcg Tablet, 10 MCG VG DAILY, (Reported) Entered as Reported by: BRADY DOTY on 04/24/22 152 Ezetimibe (Ezetimibe) 10 Mg Tablet, 10 MG PO HS, (Reported) Entered as Reported by: RENETTA GAINES on 07/15/18 141 Folic Acid (Folic Acid) 1 Mg Tablet, 1 MG PO DAILY, (Reported) Entered as Reported by: RENETTA GAINES on 06/12/21 1313 Meloxicam (Meloxicam) 15 Mg Tablet, 15 MG PO 1100, (Reported) Entered as Reported by: KIKI ECHEVARRIA on 07/06/21 1029 Metoprolol Tartrate (Metoprolol Tartrate) 25 Mg Tablet, 25 MG PO 1100,2300, (Reported) Entered as Reported by: YUNI PHILLIPS on 02/02/20 1534 Nitroglycerin (Nitro-Bid) 2 % Oint...g., 1 GM TD, (Reported) Entered as Reported by: BRADY DOTY on 04/24/22 1524 Sawyer-3/Dha/Epa/Fish Oil (Fish Oil 1,400 mg Softgel) 1 Each Capsule.dr, 2 EACH PO DAILY, (Reported) Entered as Reported by: RENETTA GAINES on 02/26/19 0934 Ondansetron HCl (Ondansetron HCl) 8 Mg Tablet, 8 MG PO Q8H PRN for NAUSEA/VOMITING, (Reported) Entered as Reported by: RENETTA GAINES on 07/15/18 1411 Pantoprazole Sodium (Pantoprazole Sodium) 40 Mg Tablet.dr, 40 MG PO 1100, (Reported) Entered as Reported by: KIKI ECHEVARRIA on 07/06/21 1029 Phenazopyridine HCl (Pyridium) 200 Mg Tablet, 1 TAB PO TID Prescribed by: YULISSA NIX on 04/25/22 0945 Sulfamethoxazole/Trimethoprim (Bactrim Ds Tablet) 1 Each Tablet, 1 EACH PO BID Prescribed by: YULISSA NIX on 04/25/22 0945 Tizanidine HCl (Tizanidine HCl) 2 Mg Capsule, 4 MG PO HS PRN for MUSCLE SPASMS, (Reported) Entered as Reported by: KIKI ECHEVARRIA on 07/06/21 1029 Topiramate (Topiramate) 100 Mg Tablet, 100 MG PO 1100,2300, (Reported) Entered as Reported by: RENETTA GAINES on 07/15/18 1411 Past Yygrsci-Anpzks-Zqbfxd Hx Patient Social History Tobacco Use?: No Use of E-Cig and/or Vaping dev: No Substance use?: No Alcohol Use?: No Pt feels they are or have been: No Immunizations Up To Date First/Initial COVID19 Vaccinat: 11/27/20 Second COVID19 Vaccination Henrique: 01/05/21 Third COVID19 Vaccination Date: 03/15/21 Seasonal Allergies Seasonal Allergies: Yes Past Medical History Surgeries: Yes (A&P rep, bladder x2, R RCR x2, R knee scope x2,L CTR x5, lap khadra, foot ) Abdominal, Bladder Surgery, Gallbladder, Hysterectomy, Orthopedic, Rectal Respiratory: Yes Asthma Currently Using CPAP: No Currently Using BIPAP: No Cardiac: Yes (RAYNAUD'S ) High Cholesterol, Hypertension Neurological: Yes (SEVERE MIGRAINE HEADACHES; NEUROPATHY IN FEET; REFLEX SYMPATHETIC DYSTROPHY) Headaches /Migraines, Neuropathy Reproductive Disorders: No Genitourinary: Yes Kidney Stones Gastrointestinal: Yes (BLOATING) Chronic Constipation, Chronic Diarrhea, Irritable Bowel Musculoskeletal: Yes (herniated disk) Degenerate Disk Disease, Arthritis, Fibromyalgia, Chronic Back Pain Endocrine: Yes (diet controlled at this time) Diabetes, Non-Insulin dep HEENT: Yes (GLASSES) Loss of Vision: Denies Hearing Impairment: Denies Cancer: Yes Skin Did You Recieve Any Treatments: No What Type of Treatment Did You: Surgical Intervention Psychosocial: Yes (CLAUSTROPHOBIA, PANIC ATTACKS) Anxiety, Depression Integumentary: No Blood Disorders: No Adverse Reaction/Blood Tranf: No (N/A) Family Medical History Heart Disease, Hypertension, Psychiatric Problems Physical Exam Vital Signs Vital Signs - First Documented 02/14/23 22:30 Temp 36.8 Pulse 80 Resp 18 B/P (MAP) 147/75 (99) Capillary Refill : Less Than 3 Seconds Height, Weight, BMI Height: 5'6.00" Weight: 190lbs. 0.0oz. 86.282539kb; 32.00 BMI Method:Stated Focused Exam Lactate Level 02/14/23 22:47: Lactic Acid Level 1.18 Lactic Acid Level Laboratory Tests Test 02/14/23 22:47 Lactic Acid Level 1.18 MMOL/L (0.50-2.00) Progress/Results/Core Measures Suspected Sepsis SIRS Temperature: Pulse: 80 Respiratory Rate: 18 Laboratory Tests 02/14/23 22:47: White Blood Count 11.5H Blood Pressure 147 /75 Mean: 99 02/14/23 22:47: Lactic Acid Level 1.18 Laboratory Tests 02/14/23 22:47: Creatinine 0.77, INR Comment 0.9, Platelet Count 214, Total Bilirubin 0.3 Results/Orders Lab Results Laboratory Tests Test 02/14/23 22:47 02/14/23 22:49 02/14/23 23:00 02/14/23 23:33 Range/Units White Blood Count 11.5 H 4.3-11.0 10^3/uL Red Blood Count 4.39 3.80-5.11 10^6/uL Hemoglobin 13.1 11.5-16.0 g/dL Hematocrit 40 35-52 % Mean Corpuscular Volume 92 80-99 fL Mean Corpuscular Hemoglobin 30 25-34 pg Mean Corpuscular Hemoglobin Concent 33 32-36 g/dL Red Cell Distribution Width 13.8 10.0-14.5 % Platelet Count 214 130-400 10^3/uL Mean Platelet Volume 9.8 9.0-12.2 fL Immature Granulocyte % (Auto) 1 % Neutrophils (%) (Auto) 78 H 42-75 % Lymphocytes (%) (Auto) 15 12-44 % Monocytes (%) (Auto) 5 0-12 % Eosinophils (%) (Auto) 1 0-10 % Basophils (%) (Auto) 0 0-10 % Neutrophils # (Auto) 8.9 H 1.8-7.8 10^3/uL Lymphocytes # (Auto) 1.8 1.0-4.0 10^3/uL Monocytes # (Auto) 0.6 0.0-1.0 10^3/uL Eosinophils # (Auto) 0.1 0.0-0.3 10^3/uL Basophils # (Auto) 0.0 0.0-0.1 10^3/uL Immature Granulocyte # (Auto) 0.1 0.0-0.1 10^3/uL Erythrocyte Sedimentation Rate 11 0-30 MM/HR Prothrombin Time 12.1 L 12.2-14.7 SEC INR Comment 0.9 0.8-1.4 Activated Partial Thromboplast Time 33 24-35 SEC Sodium Level 139 135-145 MMOL/L Potassium Level 3.7 3.6-5.0 MMOL/L Chloride Level 108 H 98-107 MMOL/L Carbon Dioxide Level 21 21-32 MMOL/L Anion Gap 10 5-14 MMOL/L Blood Urea Nitrogen 16 7-18 MG/DL Creatinine 0.77 0.60-1.30 MG/DL Estimat Glomerular Filtration Rate 87 BUN/Creatinine Ratio 21 Glucose Level 84 70-105 MG/DL Lactic Acid Level 1.18 0.50-2.00 MMOL/L Calcium Level 9.5 8.5-10.1 MG/DL Corrected Calcium 9.4 8.5-10.1 MG/DL Magnesium Level 1.7 1.6-2.4 MG/DL Total Bilirubin 0.3 0.1-1.0 MG/DL Aspartate Amino Transf (AST/SGOT) 19 5-34 U/L Alanine Aminotransferase (ALT/SGPT) 25 0-55 U/L Alkaline Phosphatase 90 40-136 U/L Troponin I < 0.028 <0.028 NG/ML C-Reactive Protein High Sensitivity 0.46 0.00-0.50 MG/DL Total Protein 7.0 6.4-8.2 GM/DL Albumin 4.1 3.2-4.5 GM/DL Amylase Level 56 25-125 U/L Lipase 42 8-78 U/L Serum Alcohol < 10 <10 MG/DL Glucometer 87 70-110 MG/DL Influenza Type A (RT-PCR) Not Detected Not Detecte Influenza Type B (RT-PCR) Not Detected Not Detecte SARS-CoV-2 RNA (RT-PCR) Not Detected Not Detecte Urine Color YELLOW Urine Clarity CLEAR Urine pH 5.5 5-9 Urine Specific [place] 1.025 H 1.016-1.022 Urine Protein NEGATIVE NEGATIVE Urine Glucose (UA) NEGATIVE NEGATIVE Urine Ketones NEGATIVE NEGATIVE Urine Nitrite NEGATIVE NEGATIVE Urine Bilirubin NEGATIVE NEGATIVE Urine Urobilinogen 0.2 < = 1.0 MG/DL Urine Leukocyte Esterase 1+ H NEGATIVE Urine RBC (Auto) NEGATIVE NEGATIVE Urine RBC NONE /HPF Urine WBC 0-2 /HPF Urine Crystals NONE /LPF Urine Bacteria NEGATIVE /HPF Urine Casts NONE /LPF Urine Mucus NEGATIVE /LPF Urine Culture Indicated NO Urine Opiates Screen NEGATIVE NEGATIVE Urine Oxycodone Screen NEGATIVE NEGATIVE Urine Methadone Screen NEGATIVE NEGATIVE Urine Propoxyphene Screen NEGATIVE NEGATIVE Urine Barbiturates Screen NEGATIVE NEGATIVE Ur Tricyclic Antidepressants Screen NEGATIVE NEGATIVE Urine Phencyclidine Screen NEGATIVE NEGATIVE Urine Amphetamines Screen POSITIVE H NEGATIVE Urine Methamphetamines Screen NEGATIVE NEGATIVE Urine Benzodiazepines Screen POSITIVE H NEGATIVE Urine Cocaine Screen NEGATIVE NEGATIVE Urine Cannabinoids Screen NEGATIVE NEGATIVE Test 02/14/23 23:53 02/15/23 00:55 Range/Units Glucometer 99 118 H 70-110 MG/DL My Orders Orders - MARLEEN STERN DO Accucheck Stat ONCE (02/14/23 22:44) Ed Iv/Invasive Line Start (02/14/23 22:44) Ekg Tracing (02/14/23 22:44) Monitor-Rhythm Ecg Trace Only (02/14/23 22:44) Alcohol (02/14/23 22:44) Amylase (02/14/23 22:44) Cbc With Automated Diff (02/14/23 22:44) Comprehensive Metabolic Panel (02/14/23 22:44) Hs C Reactive Protein (02/14/23 22:44) Drug Screen Stat (Urine) (02/14/23 22:44) Lactic Acid Analyzer (02/14/23 22:44) Lipase (02/14/23 22:44) Magnesium (02/14/23 22:44) Protime With Inr (02/14/23:44) Partial Thromboplastin Time (02/14/23:44) Ua Culture If Indicated (02/14/23:44) Erythrocyte Sedimentation Rate (02/14/23 22:44) Troponin I [place] (02/14/23 22:44) Ct Head Wo-R/O Stroke (02/14/23 22:44) Chest 1 View, Ap/Pa Only (02/14/23 22:44) Covid 19 Inhouse Test (02/14/23 22:44) Influenza A And B By Pcr (02/14/23 22:44) D5 1/2 Ns W/Kcl 20 Meq/L (Dextrose 5%/0. (02/14/23 23:30) Accucheck Stat ONCE (02/14/23 23:50) Accucheck Stat ONCE (02/15/23 00:51) Vital Signs/I&O 02/14/23 22:30 Temp 36.8 Pulse 80 Resp 18 B/P (MAP) 147/75 (99) Capillary Refill : Less Than 3 Seconds Blood Pressure Mean: 99 Progress Note : Progress Note ACCUCHECK ON ARRIVAL 84 ACCUCHECK AT DISMISSAL 119 UNEVENTFUL ER STAY DISCUSSED DIET, INCLUDING INCREASING HER PROTEIN INTAKE, AND DECREASING HER CARBOHYDRATES, AND EATING SMALL HIGH PROTEIN MEALS/SNACKS DURING THE DAY TO KEEP HER BLOOD GLUCOSE AT A MORE STEADY LEVEL, SHE IS EATING LARGE AMOUNTS OF HIGH CARBOHYDRATE/HIGH SUGAR CONTENT AT ONCE, AND VERY MINIMAL PROTEIN INTAKE. AT DISMISSAL SHE STATES THAT SHE HAD MECLIZINE AND ZOFRAN AT HOME, AND HAS BOTH WITH HER NOW IN HER PURSE, AND THAT SHE GETS THIS ALL THE TIME. THEN ALSO STATES THEY ARE 6 OR 7 YEARS OLD AT LEAST. PT C/O DIZZINESS AND SOME NAUSEA ON SITTING UP TO BE DISMISSED--VITALS ARE STABLE AND BLOOD GLUCOSE IS 119. STATES SHE IS STARTING TO FEEL BETTER WITHIN 1- 2 MINUTES, AND SYMPTOMS ARE GOING AWAY. GIVEN ZOFRAN AND MECLIZINE PRIOR TO DISMISSAL . Departure Impression Primary Impression: Labile blood glucose Additional Impressions: NIDDM DIZZINESS TRANSIENT Disposition: 01 HOME, SELF-CARE Condition: Stable Departure-Patient Inst. Decision time for Depature: 00:44 Referrals: REINALDO SAVAGE MD (PCP/Family) Primary Care Physician Patient Instructions: Low Carbohydrate Diet, Type 2 Diabetes (DC) Add. Discharge Instructions: INCREASE YOUR PROTEIN INTAKE, AND DECREASE YOUR CARBOHYDRATE INTAKE CONTINUE YOUR REGULAR MEDICATIONS PRESCRIBED FOLLOW UP WITH DR. SAVAGE NEXT WEEK FOR FURTHER CARE, RETURN TO ER IF SYMPTOMS WORSEN. All discharge instructions reviewed with patient and/or family. Voiced understanding. Scripts Ondansetron (Ondansetron Odt) 4 Mg Tab.rapdis 4 MG PO Q4H for Nausea/Vomiting, #10 TAB Prov: MARLEEN STERN DO 02/15/23 Meclizine HCl (Meclizine HCl) 25 Mg Tablet 50 MG PO Q6 PRN for DIZZINESS, #15 TAB Prov: MARLEEN STERN DO 02/15/23 MARLEEN STERN DO Feb 14, 2023 22:44
[2023-02-14 22:57] LABS: BASOPHILS % (AUTO) 0 % (0-10); EOSINOPHILS # (AUTO) 0.1 10^3/uL (0.0-0.3); EOSINOPHILS % (AUTO) 1 % (0-10); HEMATOCRIT 40 % (35-52); HEMOGLOBIN 13.1 g/dL (11.5-16.0); LYMPHOCYTES # (AUTO) 1.8 10^3/uL (1.0-4.0); LYMPHOCYTES % (AUTO) 15 % (12-44); MEAN CORPUSCULAR HEMOGLOBIN 30 pg (25-34); MEAN CORPUSCULAR HGB CONC 33 g/dL (32-36); MEAN CORPUSCULAR VOLUME 92 fL (80-99); MEAN PLATELET VOLUME 9.8 fL (9.0-12.2); MONOCYTES # (AUTO) 0.6 10^3/uL (0.0-1.0); MONOCYTES % (AUTO) 5 % (0-12); NEUTROPHILS # (AUTO) 8.9 10^3/uL (1.8-7.8); NEUTROPHILS % (AUTO) 78 % (42-75); PLATELET COUNT 214 10^3/uL (130-400); WHITE BLOOD COUNT 11.5 10^3/uL (4.3-11.0)
[2023-02-14 23:12] LABS: INR 0.9 (0.8-1.4); PROTHROMBIN TIME PATIENT 12.1 SEC (12.2-14.7)
[2023-02-14 23:15] LABS: ERYTHROCYTE SEDIMENTATION RATE 11 MM/HR (0-30)
[2023-02-14 23:23] LABS: ALANINE AMINOTRANSFERASE 25 U/L (0-55); ALBUMIN 4.1 GM/DL (3.2-4.5); ALKALINE PHOSPHATASE 90 U/L (40-136); AMYLASE 56 U/L (25-125); BILIRUBIN,TOTAL 0.3 MG/DL (0.1-1.0); BUN/CREATININE RATIO 21; CALCIUM 9.5 MG/DL (8.5-10.1); CARBON DIOXIDE 21 MMOL/L (21-32); CHLORIDE 108 MMOL/L (98-107); CREATININE SERUM 0.77 MG/DL (0.60-1.30); GFR ESTIMATED 87; GLUCOSE 84 MG/DL (70-105); LIPASE 42 U/L (8-78); MAGNESIUM 1.7 MG/DL (1.6-2.4); POTASSIUM 3.7 MMOL/L (3.6-5.0); SODIUM 139 MMOL/L (135-145)
[2023-02-14] MEDS ORDERED: D5 1/2 NS W/KCL 20 MEQ/L 1,000 ML IV SCH (23:30)
[2023-02-14 23:40] LABS: BILIRUBIN,URINE NEGATIVE (NEGATIVE); CLARITY,URINE CLEAR; COLOR,URINE YELLOW; GLUCOSE, URINE (UA) NEGATIVE (NEGATIVE); KETONES,URINE NEGATIVE (NEGATIVE); LEUKOCYTE ESTERASE ,URINE 1+ (NEGATIVE); NITRITE,URINE NEGATIVE (NEGATIVE); PH,URINE 5.5 (5-9); PROTEIN,URINE NEGATIVE (NEGATIVE)
[2023-02-15 00:11] LABS: BACTERIA,URINE NEGATIVE /HPF; WBC,URINE 0-2 /HPF
[2023-02-15 00:19] LABS: AMPHETAMINE SCREEN, URINE POSITIVE (NEGATIVE); BARBITURATE SCREEN URINE NEGATIVE (NEGATIVE); BENZODIAZEPINES SCREEN URINE POSITIVE (NEGATIVE); CANNABINOID SCREEN, URINE NEGATIVE (NEGATIVE); COCAINE SCREEN URINE NEGATIVE (NEGATIVE); METHADONE STAT NEGATIVE (NEGATIVE); OPIATE SCREEN URINE NEGATIVE (NEGATIVE); OXYCODONE STAT NEGATIVE (NEGATIVE); PROPOXYPHENE STAT NEGATIVE (NEGATIVE); TRICYCLIC ANTIDEPRESSANTS SCRE NEGATIVE (NEGATIVE)
[2023-02-15] MEDS ORDERED: ONDA4TAB11 PO (01:05)
[2023-02-15] MEDS ORDERED: MECL-149 PO (01:05)
[2023-02-15 01:12] VITALS: BP 138/72
[2023-02-15] MEDS ORDERED: ONDANSETRON 4 MG (ZOFRAN) ORAL DISSOLVE TAB PO ONE (01:15)
[2023-02-15] MEDS ORDERED: MECLIZINE 25 MG (ANTIVERT) TAB PO ONE (01:15)
--- NOTE | 2023-02-15 07:08 | Diagnostic Imaging Report ---
INDICATION: Dizzy, lightheaded, hypertensive. TECHNIQUE: Single view chest 11:08 PM. CORRELATION STUDY: 04/24/2022 FINDINGS: Given limited depth of inspiration, heart size, mediastinum and vasculature are likely within normal limits. The lungs are clear with no consolidating infiltrate. There is no significant effusion or pneumothorax. Single anchor screw right humeral head. IMPRESSION: 1. Generally stable chest demonstrates no acute abnormality. Dictated by: Dictated on workstation # [id number]
--- NOTE | 2023-02-15 07:09 | Diagnostic Imaging Report ---
PROCEDURE: CT head wo r/o stroke. TECHNIQUE: Multiple contiguous axial images were obtained through the brain without the use of intravenous contrast. Auto Exposure Controls were utilized during the CT exam to meet ALARA standards for radiation dose reduction. INDICATION: 63-year-old female, dizzy, lightheaded, feeling weak for 4 to 5 months. Post fall one week ago and one month ago. CORRELATION: 11/22/2014 FINDINGS: There is no midline shift or mass effect. The ventricles and sulci are unremarkable. No evidence for acute intracranial hemorrhage, abnormal extra-axial fluid collections or cerebral edema is present. The basilar cisterns are unremarkable. The bony calvarium is intact. The visualized paranasal sinuses and mastoid air cells are clear. IMPRESSION: Negative appearing noncontrast CT of the head. Initial report was provided by [employer]. Dictated by: Dictated on workstation # [id number]
== END 2023-02-15 01:13 | disposition home or self-care (01) ==
LOC: EDUNIT# 22:26 → ER 22:29
DX: R42 Dizziness and giddiness (principal); R11.0 Nausea; E11.9 Type 2 diabetes mellitus without complications; Z20.822 Contact with and (suspected) exposure to COVID-19; Z88.8 Allergy status to other drugs, medicaments and biological substances
CPT/HCPCS: 70450; 71045; 80053; 80306; 81000; 82150; 82947 ×2; 83605; 83690; 83735; 84484; 85025; 85610; 85652; 85730; 86141; 87636; 93005; 93041; 99284; G0480; 36415; 80320

== ENCOUNTER → 2023-06-24 | Outpatient (CLI) | payer MEDICARE, OTHER ==
[~2023-06-24] MED LIST changes: +DICY-11 PO; -DICY10CA12 PO; +MECL-291 PO; +ONDA4TAB11 PO
--- NOTE | 2023-06-24 15:59 | Diagnostic Imaging Report ---
PROCEDURE: CT sinuses without contrast TECHNIQUE: Multiple contiguous axial images were obtained through the sinuses without the use of intravenous contrast. Coronal and sagittal reformations were then performed. Auto Exposure Controls were utilized during the CT exam to meet ALARA standards for radiation dose reduction. INDICATION: 63-year-old female with recurrent sinus infections over several years. COMPARISON: CT head 02/14/2023. FINDINGS: Axial images and sagittal and coronal reconstructions of the paranasal sinuses show well-pneumatized maxillary sinuses. Ostiomeatal complexes are patent. There is slight nasal septal deviation to the right. The ethmoid air cells, frontal sinuses, and sphenoid sinuses are also well pneumatized. Orbits including both globes, retro-orbital extraconal, conal, and intraconal spaces are normal. Zygomatic arches and pterygoid plates are symmetric. Mastoid air cells appear well pneumatized. IMPRESSION: 1. Well-pneumatized paranasal sinuses and mastoid air cells. 2. Patent ostiomeatal complexes. There is slight nasal septal deviation to the right. Dictated by: Dictated on workstation # [id number]
== END ==
LOC: RAD 11:29
PROVIDERS: ATTEND Family Medicine
DX: J32.9 Chronic sinusitis, unspecified (principal); J34.2 Deviated nasal septum
CPT/HCPCS: 70486

== ENCOUNTER → 2023-06-25 | Outpatient (CLI) | payer MEDICARE, OTHER | END | disposition home or self-care (01) | LOC: PREOP 05:30 | PROVIDERS: ATTEND Otolaryngology Otolaryngology/Facial Plastic Surgery | DX: Z01.818 Encounter for other preprocedural examination (principal) ==

== ENCOUNTER 2023-07-25 05:38 | Outpatient (CLI) | payer MEDICARE, OTHER ==
[~2023-07-25] VITALS: Ht 167.7 cm; Wt 90.9 kg
[2023-07-25] MEDS ORDERED: [UNRECOGNIZED DRUG - CODE] PO (14:41)
[2023-07-25] MEDS ORDERED: DEXT10CA18 PO (14:41)
[2023-07-25] MEDS ORDERED: BUTA-235 PO (14:41)
[2023-07-25] MEDS ORDERED: ACHD5005 PO (14:41)
[2023-07-25] MEDS ORDERED: EVOL140P3 SQ (14:41)
[2023-07-25] MEDS ORDERED: HYOS0.3737 PO (14:41)
[2023-07-25] MEDS ORDERED: ESTR42.511 VG (14:41)
[2023-07-25] MEDS ORDERED: CHOL200074 PO (14:41)
== END 2023-07-25 15:21 | disposition home or self-care (01) ==
LOC: PREOP 05:38
PROVIDERS: ATTEND Otolaryngology Otolaryngology/Facial Plastic Surgery
DX: Z01.818 Encounter for other preprocedural examination (principal)

== ENCOUNTER 2023-08-02 08:38 | Day surgery (SDC) | payer MEDICARE, OTHER ==
[~2023-08-02] VITALS: Ht 167.7 cm; Wt 90.9 kg
[2023-08-02] VITALS (14 sets, daily range): BP systolic 122–149; BP diastolic 69–83
[~2023-08-02 08:38] MED LIST changes: +BUTA-235 PO; +DEXT10CA18 PO; +ESTR42.511 VG; +EVOL140P3 SQ; +HYOS0.3737 PO; +[UNRECOGNIZED DRUG - CODE] PO
[2023-08-02] MEDS ORDERED: AMPICILLIN/SULBACTAM INJECTION 1.5 GM in NS (IVPB) 100 ML 100 ML IV ONE (09:15)
[2023-08-02] MEDS ORDERED: MIDAZOLAM INJ 2 MG/2 ML VIAL IV ONE (09:45)
[2023-08-02] MEDS ORDERED: fentaNYL INJECTION 100 MCG/2 ML VIAL ONE (09:57)
[2023-08-02] MEDS ORDERED: ROCURONIUM 50 MG/5 ML VIAL IV ONE (09:57)
[2023-08-02] MEDS ORDERED: LIDOCAINE PF 2% 5 ML VIAL ONE (09:57)
[2023-08-02] MEDS ORDERED: proPOfol INJECTION 200 MG/20 ML VIAL IV ONE (09:57)
[2023-08-02] MEDS ORDERED: GLYCOPYRROLATE INJ 0.2 MG/ML 2 ML VIAL ONE (09:57)
[2023-08-02] MEDS ORDERED: ONDANSETRON INJECTION 4 MG/2 ML (SDV) ONE (09:57)
[2023-08-02] MEDS ORDERED: NEOSTIGMINE 1 MG/1ML 10 ML VIAL ONE (09:57)
[2023-08-02 10:02] LABS: BASOPHILS % (AUTO) 1 % (0-10); EOSINOPHILS # (AUTO) 0.2 10^3/uL (0.0-0.3); EOSINOPHILS % (AUTO) 3 % (0-10); HEMATOCRIT 41 % (35-52); HEMOGLOBIN 12.7 g/dL (11.5-16.0); LYMPHOCYTES % (AUTO) 16 % (12-44); MEAN CORPUSCULAR HEMOGLOBIN 30 pg (25-34); MEAN CORPUSCULAR HGB CONC 31 g/dL (32-36); MEAN CORPUSCULAR VOLUME 98 fL (80-99); MEAN PLATELET VOLUME 9.5 fL (9.0-12.2); MONOCYTES # (AUTO) 0.4 10^3/uL (0.0-1.0); MONOCYTES % (AUTO) 6 % (0-12); NEUTROPHILS # (AUTO) 4.5 10^3/uL (1.8-7.8); NEUTROPHILS % (AUTO) 75 % (42-75); PLATELET COUNT 191 10^3/uL (130-400); WHITE BLOOD COUNT 6.1 10^3/uL (4.3-11.0)
[2023-08-02] MEDS: LACTATED RINGERS 1,000 ML 1,000 ML IV PRN ×2 (10:03→10:53)
[2023-08-02] MEDS ORDERED: PHENYLEPHRINE 0.5% (REGULAR) NASAL SPRAY 15 ML ONE (10:03)
[2023-08-02] MEDS ORDERED: LIDOCAINE 2% w/EPI 1:100,000 20 ML VIAL ONE (10:03)
[2023-08-02] MEDS ORDERED: COCAINE 4% TOPICAL SOLN 2 ML SYR ONE (10:03)
[2023-08-02] MEDS ORDERED: BSS 15 ML ONE (10:03)
[2023-08-02 10:05] LABS: POTASSIUM 4.1 MMOL/L (3.6-5.0)
[2023-08-02 10:06] LABS: CALCIUM 8.6 MG/DL (8.5-10.1)
[2023-08-02 10:10] LABS: CREATININE SERUM 0.73 MG/DL (0.60-1.30)
[2023-08-02] MEDS ORDERED: PROMETHAZINE INJ 25 MG/ML VIAL IVP PRN (10:15)
[2023-08-02] MEDS ORDERED: HYDROcodone/ACETAMINOPHEN 5 MG/325 MG TABLET PO PRN (10:15)
[2023-08-02] MEDS ORDERED: D5 1/2NS + KCL 20 MEQ/L 1000ML 1,000 ML IV SCH (10:15)
--- NOTE | 2023-08-02 10:15 | Progress Note-Post Operative ---
Post-Operative Progess Note Surgeon (s)/Partner Cco (s) Surgeon ALBERTO ZHENG MD Partner Cco n/a Pre-Operative Diagnosis Recurrent Choronic Sinusitis, Bialt Hyper of INf Turbs Post-Operative Diagnosis same Post-Op Procedure Note Date of Procedure: Aug 02, 2023 Name of Procedure Performed: Bilat ESS, Bilat Partial Reduction of INf Turbs Description & Findings Description and Findings: n/a Anesthesia Type get Estimated Blood Loss minimal Packing none. Specimen(s) collected/removed Bilat Chronic Sinusitis ALBERTO ZHENG MD Aug 02, 2023 10:15
--- NOTE | 2023-08-02 10:15 | Progress Note-Pre Operative ---
Pre-Operative Progress Note Date of Available H&P: Aug 02, 2023 Date H&P Reviewed: Aug 02, 2023 Time H&P Reviewed: 09:45 History & Physical: H&P Reviewed, Patient Examed, No changes noted Changes from last HP none Pre-Operative Diagnosis: Recurrent Choronic Sinusitis, Bialt Hyper of INf Turbs ALBERTO ZHENG MD Aug 02, 2023 10:15
[2023-08-02] MEDS ORDERED: BSS 15 ML IR ONE (10:52)
[2023-08-02] MEDS ORDERED: PHENYLEPHRINE 0.5% (REGULAR) NASAL SPRAY 15 ML NS ONE (10:53)
[2023-08-02] MEDS ORDERED: COCAINE 4% TOPICAL SOLN 2 ML SYR NS ONE (10:54)
[2023-08-02] MEDS ORDERED: LIDOCAINE 2% w/EPI 1:100,000 20 ML VIAL INJ ONE (10:55)
[2023-08-02] MEDS ORDERED: SEVOFLURANE (ULTANE) 15 ML INHAL SOLN ONE (11:32)
[2023-08-02] MEDS ORDERED: morphine INJ 10 MG/ML 1ML (SYR OR VIAL) IVP ONE (11:45)
[2023-08-02] MEDS ORDERED: HYDROmorphone INJECTION 2 MG/ML VIAL IV ONE (11:45)
[2023-08-02] MEDS ORDERED: ONDANSETRON INJECTION 4 MG/2 ML (SDV) IVP PRN (11:45)
[2023-08-02] MEDS ORDERED: AMOX-355 PO (13:01)
[2023-08-02] MEDS ORDERED: ACHD5005 PO (13:01)
--- NOTE | 2023-08-02 15:05 | Anesthesia-General Post-Op ---
General Patient Condition Mental Status/LOC: Same as Preop Cardiovascular: Satisfactory Nausea/Vomiting: Absent Respiratory: Satisfactory Pain: Controlled Complications: Absent Post Op Complications Complications None Follow Up Care/Instructions Patient Instructions None needed. Anesthesia/Patient Condition Patient Condition Patient was seen earlier in PACU when she was awake and doing well, no complaints, stable vital signs, no apparent adverse anesthesia problems. No complications reported per nursing. LEANNE RAMEY DO Aug 02, 2023 15:05
== END 2023-08-02 13:55 | disposition home or self-care (01) ==
LOC: SDC 08:38
PROVIDERS: ATTEND Otolaryngology Otolaryngology/Facial Plastic Surgery
DX: J32.9 Chronic sinusitis, unspecified (principal); J34.3 Hypertrophy of nasal turbinates; K21.9 Gastro-esophageal reflux disease without esophagitis; J30.89 Other allergic rhinitis; E66.9 Obesity, unspecified; Z79.899 Other long term (current) drug therapy; Z68.33 Body mass index [BMI] 33.0-33.9, adult
CPT/HCPCS: 36415; 80048; 82947; 85025; 87081; 93005

== ENCOUNTER → 2023-08-07 | Outpatient (CLI) | payer MEDICARE, OTHER ==
[~2023-08-07] MED LIST changes: +AMOX-355 PO
--- NOTE | 2023-08-08 09:39 | Diagnostic Imaging Report ---
INDICATION: Routine screening. Comparison is made with prior mammogram from 05/30/2022 and 09/28/2021. 2-D and 3-D bilateral screening mammography was performed with CAD. Scattered fibroglandular densities are identified bilaterally. Benign calcifications are again noted. Area of probable oil cyst in the left breast posteriorly is stable. No spiculated mass or malignant-appearing microcalcifications are seen. Axillae are unremarkable. IMPRESSION: No mammographic features suspicious for malignancy are identified. ACR BI-RADS Category 2: Benign findings. Result letter will be mailed to the patient. Note: At least 10% of breast cancer is not imaged by mammography. BI-RADS Category 2 Dictated by: Dictated on workstation # [id number]
== END ==
LOC: RAD 15:03
PROVIDERS: ATTEND Family Medicine
DX: Z12.31 Encounter for screening mammogram for malignant neoplasm of breast (principal); Z13.6 Encounter for screening for cardiovascular disorders; Z13.220 Encounter for screening for lipoid disorders; I10 Essential (primary) hypertension; E78.2 Mixed hyperlipidemia; R73.09 Other abnormal glucose; Z90.710 Acquired absence of both cervix and uterus
CPT/HCPCS: 77063; 77067